=== PATIENT | male | born 1950 | race Caucasian/White ===

== ENCOUNTER → 2018-03-29 11:08 | Outpatient (CLI) | payer MEDICARE, OTHER, SELFPAY ==
--- NOTE | 2018-03-29 11:11 | CT_ITS ---
STUDY: CT ABDOMEN AND PELVIS WITH CONTRAST REASON FOR EXAM: Male, 68 years old. Right-sided abdominal pain. Diarrhea. RADIATION DOSAGE (If Supplied By Facility): CTDIvol = ( 24.10 ) mGy, DLP = ( 1799.41 ) mGycm TECHNIQUE: Transaxial images were obtained from the dome of the diaphragm to the symphysis pubis with oral contrast. 100CC ml of Isovue 300 contrast was administered. Sagittal and coronal images were reconstructed. Individualized dose optimization techniques were used for this CT. COMPARISON: Comparison is made with prior study dated May 12, 2014. FINDINGS: The visualized lung bases are unremarkable. Bipolar pacemaker in situ. Coronary artery stenting. Stable 2.5 cm rounded soft tissue density most likely representing the lymph node in the pericardial fat overlying the left ventricle. Hepatomegaly. Diffuse fatty infiltration of the liver. There are multiple gallstones. Normal spleen. Normal pancreas. Normal bilateral adrenal glands. Stable 3 cm x 2.6 cm cyst adjacent to the medial anterior aspect of the right kidney. This most likely represents a renal cyst. 4 mm nonobstructive calculus in the lower pole of the left kidney. Normal visualized stomach. Normal small intestine. There are multiple colonic diverticula consistent with diverticulosis. The appendix is visualized and appears normal. There is diffuse atherosclerotic calcification of the abdominal aorta, without a demonstrated aneurysm. Normal inferior vena cava. Normal retroperitoneum. Bilateral wall thickening. There is a 6.1 mm calculus along the right side of the base of the bladder. This most likely represent a recently passed calculus. There is a small umbilical hernia containing fat. There are diffuse degenerative changes of the visualized lumbar spine. CT/Abdomen/Pelvis WITH Contrast IMPRESSION: 6.1 mm calculus at the base of the bladder on the right side most likely representing a recently passed ureteral calculus. Nonobstructive calculus in the left kidney. Hepatomegaly with diffuse fatty infiltration of the liver. Electronically Signed: Davon Pena MD at 14:29 EDT Tel [phone], Service support ,
== END ==
PROVIDERS: Family Provider Internal Medicine; PCP Internal Medicine; Visit Provider Internal Medicine
DX: K65.9 Peritonitis, unspecified (principal); R11.0 Nausea
CPT/HCPCS: 74177; Q9967

== ENCOUNTER → 2021-02-01 07:43 | Outpatient (CLI) | payer MEDICARE, OTHER, SELFPAY ==
--- NOTE | 2021-02-01 07:46 | CT_ITS ---
STUDY: LOW DOSE CT LUNG CANCER SCREENING REASON FOR EXAM: Male, 70 years old. Personal history of nicotine dependence. 2-3 packs per day for 45 years. Patient quit 12 years ago. RADIATION DOSAGE (If Supplied By Facility): CTDIvol = ( 3.18 ) mGy, DLP = ( 99.26 ) mGycm TECHNIQUE: No contrast was administered. Low dose technique was utilized (average mAS-38 and kVp 120). 1.25 mm axial source images with a slice interval of 1.25-mm were reconstructed in lung windows. 2.5 mm axial source images with a slice interval of 2.5-mm were reconstructed in lung windows. 5.0 mm axial source images with a slice interval of 5.0-mm were reconstructed in soft tissue windows. Nodule measured using lung windows on PACS and/or independent workstation with automated measurement of minimum and maximum diameter. Nodule measurement reported as average diameter rounded to the nearest whole number. Growth is defined as an increase ins size of greater than 1.5 mm. COMPARISON: None. NODULES: No suspicious nodules are seen. Emphysema: Mild degree of increased markings at the lung bases slightly more prominent on the left side suggestive of scarring. Endobronchial lesion: None Aorta: Atherosclerotic plaque formation. Coronary arteries: Coronary artery calcification. Heart: A left-sided dual-chamber pacemaker is seen. Pulmonary artery: Mediastinal nodes: Small benign appearing mediastinal lymph nodes. Other chest and abdominal findings: CT/Low Dose CT Lung Screening IMPRESSION: Lung-RADS category 2 - Continue annual screening with LDCT in 12 months. IMPORTANT NOTES FOR USE: ACR Lung-RADS Version 1.1 Assessment Categories Release Date: 2018 Category: Coded 0-4 bases on nodule(s) with highest degree of suspicion. Negative screen is defined as categories 1 and 2; a positive screen is defined as categories 3 and 4. Category 3 and 4A nodules that are unchanged on interval CT should be coded as category 2, and individuals returned to screening in 12 months. Category 4X: Category 3 or 4 nodules with additional imaging findings that increase the suspicion of lung cancer, such as spiculation, GGN that doubles in size in 1 year, enlarged lymph notes, etc. Category Modifiers: S (significant finding unrelated to lung cancer) Electronically Signed: Davon Pena MD at 9:43 EDT , Service support ,
== END ==
PROVIDERS: PCP Internal Medicine; Referring Provider Internal Medicine Pulmonary Disease; Visit Provider Internal Medicine Pulmonary Disease
DX: Z87.891 Personal history of nicotine dependence (principal)
CPT/HCPCS: 71271

== ENCOUNTER 2021-06-09 11:17 | Observation (INO) | payer MEDICARE, OTHER, SELFPAY ==
[2021-06-09] VITALS (17 sets, daily range): BP systolic 103–172; BP diastolic 65–110; PULSE 44–135; RESP 16–19; TEMP 36.6–37.3; O2SAT 91–97; BMI 39.4; BMI 39.6
--- NOTE | 2021-06-09 12:07 | CT_ITS ---
STUDY: CT ABDOMEN AND PELVIS WITH CONTRAST REASON FOR EXAM: Male, 71 years old. 3 day history of diffuse abdominal pain, nausea, diarrhea RADIATION DOSAGE (If Supplied By Facility): CTDIvol = ( 28.39 ) mGy, DLP = ( 1781.15 ) mGycm TECHNIQUE: Transaxial images were obtained from the dome of the diaphragm to the symphysis pubis without oral contrast. IV 100mL Isovue-300 was administered. Sagittal and coronal images were reconstructed. Individualized dose optimization techniques were used for this CT. COMPARISON: Comparison is made with prior study dated 03/29/2018. FINDINGS: Minimal increased linear markings at the lung bases suggestive of scarring. A dual-chamber pacemaker is seen. Coronary artery calcification. There is decreased attenuation of the liver consistent with steatosis. Hepatomegaly. Small amount of perihepatic fluid. Distended gallbladder. Thickening of the gallbladder wall. Several gallstones are seen along the dependent portion of the gallbladder. There is evidence of increased markings in the surrounding peritoneal fat and anterior right pararenal space. Acute cholecystitis should be ruled out. Normal spleen. Normal pancreas. Normal bilateral adrenal glands. Normal right kidney. There is a 2.8 semi a cyst in the anterior aspect of the upper pole of the left kidney. This also evidence of a 1.7 cm cyst in the lower pole of the left kidney. Normal visualized stomach. Normal small intestine. Normal colon. The appendix is visualized and appears normal. There is diffuse atherosclerotic calcification of the abdominal aorta and its major visceral branches, without a demonstrated aneurysm. Normal inferior vena cava. Normal retroperitoneum. Normal urinary bladder. Normal abdominal wall. There are diffuse degenerative changes of the visualized lumbar spine. CT/Abdomen/Pelvis W IV Cont ONLY IMPRESSION: Findings in keeping with acute cholecystitis and gallstones. Hepatomegaly and diffuse fatty infiltration of the liver. Small amount perihepatic fluid. Electronically Signed: Davon Pena MD at 13:06 EDT , Service support ,
--- NOTE | 2021-06-09 12:08 | EDS_ITS ---
HPI HPI - GI History of Present Illness Chief Complaint: Abd Pain Narrative Narrative: Patient has been having abdominal pain for several days along with nausea no vomiting. No diarrhea. He has had a cough, some mild shortness of breath worse when he exerts himself, rhinorrhea for a couple weeks. He denies any fevers, chills, contact with anyone with Covid that he knows of. This morning the pain was worse and he had some cold sweats and felt like he had some chills. He was fully vaccinated against Covid back in November. [facility] Medical History Diabetes Diabetic neuropathy HTN (hypertension) Hyperlipemia Home Medications Liraglutide [Victoza 2-Den] 1.2 mg SQ DAILY 05/12/14 [History Last Taken Unknown] allopurinol 200 mg PO DAILYCM 05/12/14 [History Last Taken Unknown] amlodipine 10 mg PO DAILY 05/12/14 [History Last Taken Unknown] aspirin 81 mg PO DAILY@0800 05/12/14 [History Last Taken Unknown] atorvastatin 20 mg PO QHS 05/12/14 [History Last Taken Unknown] clonidine HCl 0.1 mg PO BID 05/12/14 [History Last Taken Unknown] duloxetine 60 mg PO DAILY 05/12/14 [History Last Taken Unknown] gabapentin 300 mg PO BIDCM 05/12/14 [History Last Taken Unknown] glimepiride 4 mg PO DAILY 05/12/14 [History Last Taken Unknown] hydrochlorothiazide 25 mg PO DAILY 05/12/14 [History Last Taken Unknown] ibuprofen 200 mg PO Q6H PRN PRN 05/12/14 [History Last Taken Unknown] insulin glargine [Lantus SoloStar Pen] 18 units SUBCUT QHS 05/12/14 [History Last Taken Unknown] lisinopril 40 mg PO DAILY 05/12/14 [History Last Taken Unknown] metformin 500 mg PO TIDCM 05/12/14 [History Last Taken Unknown] multivitamin with folic acid [Thera] 1 tab PO DAILY 05/12/14 [History Last Taken Unknown] potassium chloride [Klor-Con 10] 10 meq PO DAILY 05/12/14 [History Last Taken Unknown] valsartan 160 mg PO DAILY 05/12/14 [History Last Taken Unknown] Flomax 0 mg PO DAILY 12/22/16 [History Last Taken Unknown] Warfarin 5 mg PO SUTUTHSA 12/22/16 [History Last Taken Unknown] Warfarin 7.5 mg PO MOWEFR 12/22/16 [History Last Taken Unknown] Allergy/AdvReac Type Severity Reaction Status Date / Time No Known Allergies Allergy Verified 06/09/21 11:21 Social History Smoking Status: Former smoker ROS ROS ED Constitutional Constitutional ED: Reports body ache(s), chills, fatigue, fever(s), malaise and sweats Eyes Eyes: Denies change in vision or diplopia ENT ENT ED: Denies rhinorrhea or sore throat Cardiovascular Cardiovascular: Denies chest pain or palpitations Respiratory/Chest Respiratory/Chest: Reports cough, dyspnea and dyspnea on exertion Gastrointestinal Gastrointestinal: Reports abdominal pain, diarrhea and nausea; Denies vomiting Genitourinary Genitourinary ED: Denies dysuria or hematuria Musculoskeletal Musculoskeletal: Denies back pain or neck pain Integumentary Denies abscess or rash Neurologic Neurologic: Denies headache(s), paresthesias or weakness Psychiatric Psychiatric: Denies anxiety or suicidal thoughts EXAM Physical Exam Const Vital Signs: 06/09/21 11:18 06/09/21 12:21 06/09/21 12:29 Temperature 97.9 F Temperature Source Temporal Pulse Rate 44 L 122 H Respiratory Rate 16 19 H Blood Pressure 116/105 H 156/104 H Blood Pressure Mean 108 121 Pulse Ox 96 95 Oxygen Delivery Method Room Air Room Air 06/09/21 13:00 Temperature Temperature Source Pulse Rate Respiratory Rate Blood Pressure 144/87 H Blood Pressure Mean 106 Pulse Ox Oxygen Delivery Method Positive well nourished, well developed and obese Constitutional Narrative: Well-appearing, no distress General Appearance ED: well developed and NAD Nutritional Appearance: obese HEENT Reports moist mucous membranes normocephalic and atraumatic Eyes PERRL and EOMs intact bilaterally Neck full ROM and supple Resp normal respiratory effort and clear to auscultation bilaterally Cardio regular rate, regular rhythm and no murmurs Rate: Negative for tachycardic GI GI Narrative: Diffusely tender, worse right lower quadrant. Obesity limits exam. No definite distention. Auscultation: normoactive bowel sounds Palpation: soft Back/Spine no CVA tenderness General Back: other FROM Extremity normal to inspection and no calf tenderness General Extremety ED: Negative for edema, pulses abnormal or tenderness General Extremity: Negative for edema or pulses abnormal Neuro oriented x3, CN's II-XII intact bilaterally and no sensory deficits noted Sensorium / Orientation: awake and alert Motor Exam: strength 5/5 throughout Skin no rashes or lesions noted and no wounds MDM MDM MDM Narrative Medical decision making narrative: As below, patient has findings of acute cholecystitis with gallstones on CT. The chest x-ray interpretation was noted. On CT, the radiologist did see the increased markings at the bases and said it was indicative of scarring and not acute infiltrate. Patient is feeling better after he was treated with pain medication and nausea medication, discussed with surgery will add antibiotics plan is for admission. He is clinically hemodynamically stable at this time. His rapid Covid returned negative. Lab Data Attestation: I reviewed the patient's lab results. Labs: Laboratory Results - last 24 hr 06/09/21 06/09/21 12:00 12:00 WBC 7.7 RBC 4.71 Hgb 10.9 L Hct 36.0 L MCV 76.4 L MCH 23.1 L MCHC 30.3 L RDW Std Deviation 45.9 H RDW Coeff of Montrell 16.9 H Plt Count 121 L MPV 10.8 Immature Gran % (Auto) 0.400 Neut % (Auto) 79.9 H Lymph % (Auto) 10.9 L Woodson % (Auto) 8.1 Eos % (Auto) 0.3 Baso % (Auto) 0.4 Absolute Neuts (auto) 6.1 Absolute Lymphs (auto) 0.84 Nucleated RBC % 0 Sodium 133 L Potassium 3.8 Chloride 99 Carbon Dioxide 25.0 Anion Gap 9 BUN 11 Creatinine 1.18 Estim Creat Clear Calc 57.42 Est GFR (MDRD) Af Amer 78 Est GFR (MDRD) Non-Af 65 BUN/Creatinine Ratio 9.3 L Glucose 266 H Calcium 9.1 Total Bilirubin 0.90 AST 19 ALT 22 Alkaline Phosphatase 164 H Total Protein 8.1 Albumin 2.9 L Globulin 5.2 H Albumin/Globulin Ratio 0.6 L Lipase 75 Radiography Diagnostic Testing: Radiology Impression Abdomen/Pelvis CT 06/09/21 12:07 IMPRESSION: Findings in keeping with acute cholecystitis and gallstones. Hepatomegaly and diffuse fatty infiltration of the liver. Small amount perihepatic fluid. Electronically Signed: Davon Pena MD at 13:06 EDT , Service support , Chest X-Ray 06/09/21 12:26 IMPRESSION: Increased markings at the lung bases slightly more prominent on the left lung base. Atelectasis and/or early infiltrate should be ruled out. Electronically Signed: Davon Pena MD at 12:53 EDT , Service support , EKG Initial EKG: Attestation: I personally reviewed and interpreted this EKG as follows: Interpretation: No Acute Injury Pattern and Atrial Fibrillation Prior EKG tracings: available for review Prior: Unchanged Discharge Plan Triage Chief Complaint: Abd Pain ED Provider: Alireza De La O Dx/Rx/DC Orders Clinical Impression: Acute calculous cholecystitis, URTI (infection of the upper respiratory tract), Atrial fibrillation, chronic Prescriptions: No Action metformin 500 MG tablet 500 mg PO TIDCM RF: 0 clonidine HCl 0.1 MG tablet 0.1 mg PO BID RF: 0 atorvastatin 20 MG tablet 20 mg PO QHS RF: 0 potassium chloride [Klor-Con 10] 10 MEQ Tablet.Er 10 meq PO DAILY RF: 0 allopurinol 100 MG tablet 200 mg PO DAILYCM RF: 0 amlodipine 10 MG tablet 10 mg PO DAILY RF: 0 glimepiride 4 MG tablet 4 mg PO DAILY RF: 0 ibuprofen 200 MG tablet 200 mg PO Q6H PRN PRN (Reason: Pain) RF: 0 gabapentin 300 MG capsule 300 mg PO BIDCM RF: 0 aspirin 81 MG Tab.Chew 81 mg PO DAILY@0800 RF: 0 hydrochlorothiazide 25 MG tablet 25 mg PO DAILY RF: 0 lisinopril 40 MG tablet 40 mg PO DAILY RF: 0 valsartan 160 MG tablet 160 mg PO DAILY RF: 0 duloxetine 60 MG capsule 60 mg PO DAILY RF: 0 insulin glargine [Lantus Solostar U-100 Insulin] 100 UNITS/ML Pen 18 units subcut QHS RF: 0 multivitamin with folic acid [Thera] 1 TABLET tablet 1 tab PO DAILY RF: 0 Liraglutide [Victoza 2-Den] 0.6 MG/0.1 ML Ml 1.2 mg SQ DAILY RF: 0 Warfarin 7.5 mg PO MOWEFR RF: 0 Warfarin 5 mg PO SUTUTHSA RF: 0 Flomax 0 mg PO DAILY RF: 0 Primary Care Provider: Dee Chawla Referrals: Dee Chawla MD [Primary Care Provider] - Disposition Disposition: Acute Care Hospital [facility]
[2021-06-09 12:16] LABS: Absolute Lymphocyte Count 0.84 X10^3/uL (0.83-4.51); Absolute Neutrophil Count 6.1 X10^3/uL (2.0-7.7); Basophil# 0.03 X10^3/uL; Basophil% 0.4 % (0-1); Eosinophil# 0.02 X10^3/uL; Eosinophils% 0.3 % (0-5); Hemoglobin 10.9 g/dL (13.0-16.5); Lymphocyte # 0.84 X10^3/ul (0.83-4.51); Lymphocyte % 10.9 % (19-41); Mean Corp Hgb Conc 30.3 g/dL (32-36); Mean Corpuscular Hgb 23.1 pg (27.0-32.0); Mean Corpuscular Volume 76.4 fL (80-94); Mean Platelet Vol. 10.8 fl (6.2-12.0); Monocyte# 0.62 X10^3/uL; Monocyte% 8.1 % (0-10); NRBC Flagged by Analyzer 0 % (0-5); Neutrophil # 6.14 X10^3/uL (2.7-7.7); Neutrophil % 79.9 % (47-70); Platelet Count 121 K/mm3 (150-450); RBC Distribution Width CV 16.9 % (11.6-14.6); RBC Distribution Width SD 45.9 fl (35.1-43.9); Red Blood Count 4.71 M/mm3 (4.6-6.2); White Blood Count 7.7 K/mm3 (4.4-11.0)
[2021-06-09] MEDS: 0.9% Normal Saline 1,000 ML 1000 ML IV (12:23)
[2021-06-09] MEDS: Morphine 4 MG/ML Syringe IV (12:23)
[2021-06-09] MEDS: Ondansetron 4 MG/2 ML Vial IV (12:23)
[2021-06-09 12:26] LABS: ALB/GLOB Ratio 0.6 RATIO (0.9-2.4); AST(SGOT) 19 U/L (15-37); Alanine Aminotransfer ALT/SGPT 22 U/L (16-61); Albumin, Serum 2.9 g/dL (3.2-5.0); Alkaline Phosphatase 164 U/L (45-117); Anion Gap 9 (5-15); BUN 11 mg/dL (7-18); BUN/Creat Ratio 9.3 RATIO (10-20); Calcium,Total 9.1 mg/dL (8.5-10.1); Chloride 99 mmol/L (98-107); Creatinine, Serum 1.18 mg/dL (0.70-1.30); EST Glomerular Filtration Rate 65 mL/min (>60); Est Glom Filt Rate - Afr Amer 78 mL/min (>60); Estimated Creatinine Clearance 57.42 ml/min; Globulin 5.2 g/dL (2.2-4.2); Glucose 266 mg/dL (74-106); Lipase 75 U/L (73-393); Potassium 3.8 mmol/L (3.5-5.1); Protein, Total 8.1 g/dL (6.4-8.2); Sodium Level 133 mmol/L (136-145)
--- NOTE | 2021-06-09 12:26 | RAD_ITS ---
STUDY: X-RAY CHEST REASON FOR EXAM: Male, 71 years old. Abdominal pain. Cold sweats. Cough. TECHNIQUE: Single AP portable view of the chest. COMPARISON: Comparison is made with prior study dated 01/11/2016. FINDINGS: EKG electrodes are seen. Elevation of the right hemidiaphragm. Mild increased markings at the lung bases slightly more prominent on the left side. Atelectasis and/or early infiltrates should be ruled out. Follow-up is recommended. There is no demonstrated pleural abnormality. Normal size heart. A left-sided dual-chamber pacemaker is seen. Normal mediastinum and mariana. Normal visualized pulmonary arteries. There is atherosclerotic calcification of the aortic arch with tortuosity. There are diffuse degenerative changes of the visualized thoracic spine. Normal visualized ribs, clavicles, and shoulders. There is no demonstrated abnormality of the visualized soft tissue structures of the upper abdomen. RAD/Chest 1 View (Portable) IMPRESSION: Increased markings at the lung bases slightly more prominent on the left lung base. Atelectasis and/or early infiltrate should be ruled out. Electronically Signed: Davon ePna MD at 12:53 EDT , Service support ,
--- NOTE | 2021-06-09 13:36 | EKG12_ITS ---
Test Reason : IRR HR Blood Pressure : / mmHG Vent. Rate : 108 BPM Atrial Rate : 108 BPM P-R Int : 000 ms QRS Dur : 082 ms QT Int : 354 ms P-R-T Axes : 000 -14 055 degrees QTc Int : 474 ms Normal sinus rhythm with PAF Nonspecific ST and T wave abnormality Abnormal ECG Confirmed by ALMA DELIA IBANEZ, MICAELA ([id number]), image editor EDUARDO DERAS ([id number]) on 06/13/2021 7:55:20 AM Referred By: RU/BB Confirmed By:MICAELA FLANNERY MD
[2021-06-09 14:09] LABS: International Normalized Ratio 2.5; Prothrombin Time (Protime)PT. 26.5 SECONDS (11.7-14.9)
--- NOTE | 2021-06-09 14:52 | PCS.PANDOC ---
PANDEMIC DOCUMENTATION INITIATED: Date: 04/25/2021 Time: 190
--- NOTE | 2021-06-09 15:09 | HP.PCM_ITS ---
[facility] - General General Date of Admission: 06/09/21 HPI Narrative YAZAN LOPEZ, is a 71 M who presents with abdominal pain and nausea. Patient stated on Sunday he started with abdominal pain He noted with deep breath and sneezing the pain became worse. Then when he ate beef stew and potatoes he noted increased epigastric pain and pain into the back. He notes this comes and go. He has noted nausea associated with the abdominal pain. He denies vomiting. He notes having diarrhea previously. His believes he has had discomfort/pain previously like this. Previous abdominal surgical history includes umbilical hernia repair with mesh. Patient has a pacer/defibrillator and Afib. He is currently on Coumadin for the Afib. His last INR was 2.8. He also has a history of sleep apnea. He has had his COVID vaccine. He had COVID last year. He denies being around anyone recently with COVID. [facility] Medical History (Updated 06/09/21 @ 15:01 by Ashlyn Jack) Atrial fibrillation Cancer CPAP (continuous positive airway pressure) dependence Diabetes Diabetic neuropathy Former smoker Hepatitis HTN (hypertension) Hyperlipemia Hypertension ICD (implantable cardioverter-defibrillator) in place Injury of head and neck Pacemaker Sleep apnea Home Medications allopurinol 200 mg PO DAILYCM 05/12/14 [History Last Taken 06/08/21 08:45] aspirin 81 mg PO DAILY@0800 05/12/14 [History Last Taken 06/08/21 08:45] atorvastatin 20 mg PO QODAY 05/12/14 [History Last Taken 1 Week Ago ~06/02/21] clonidine HCl 0.1 mg PO BID 05/12/14 [History Last Taken 06/08/21 08:45] duloxetine 60 mg PO DAILY 05/12/14 [History Last Taken 06/08/21 08:45] gabapentin 600 mg PO QHS 05/12/14 [History Last Taken 06/08/21] hydrochlorothiazide 25 mg PO DAILY 05/12/14 [History Last Taken 06/08/21 08:45] insulin glargine [Lantus SoloStar Pen] 32 units SUBCUT QHS 05/12/14 [History Last Taken 06/07/21] lisinopril 40 mg PO DAILY 05/12/14 [History Last Taken 06/08/21 08:45] metformin 1,000 mg PO BIDCM 05/12/14 [History Last Taken 06/08/21 08:45] potassium chloride [Klor-Con 10] 10 meq PO BID 05/12/14 [History Last Taken 06/08/21 08:45] acetaminophen 1,000 mg PO BID PRN 06/09/21 [History Last Taken 06/09/21 07:00] amlodipine 5 mg PO DAILY 06/09/21 [History Last Taken 06/08/21 08:45] liraglutide [Victoza 3-Den] 1.8 mg SUBCUT DAILY 06/09/21 [History Last Taken 06/08/21] magnesium oxide 400 mg PO BID 06/09/21 [History Last Taken 06/08/21 08:45] metoprolol tartrate 100 mg PO BID 06/09/21 [History Last Taken 06/08/21 08:45] tamsulosin 0.8 mg PO DAILY 06/09/21 [History Last Taken 06/08/21 08:45] warfarin 5 mg PO MOTUWETHFRSA 06/09/21 [History Last Taken 06/08/21 08:45] warfarin 7.5 mg PO SANTAMARIA 06/09/21 [History Last Taken 06/05/21] Allergy/AdvReac Type Severity Reaction Status Date / Time No Known Allergies Allergy Verified 06/09/21 11:21 Social History Smoking Status: Former smoker ROS Constitutional Constitutional: Reports systems reviewed and no addt'l complaints, except as documented Eyes Eyes: Reports systems reviewed and no addt'l complaints, except as documented ENT HEENT: Reports systems reviewed and no addt'l complaints, except as documented Cardiovascular Cardiovascular: Reports systems reviewed and no addt'l complaints, except as documented Respiratory/Chest Respiratory/Chest: Reports systems reviewed and no addt'l complaints, except as documented Gastrointestinal Gastrointestinal: Reports systems reviewed and no addt'l complaints, except as documented Genitourinary Genitourinary: Reports systems reviewed and no addt'l complaints, except as documented Musculoskeletal Musculoskeletal: Reports systems reviewed and no addt'l complaints, except as documented Integumentary Integumentary: Reports systems reviewed and no addt'l complaints, except as documented Neurologic Neurologic: Reports systems reviewed and no addt'l complaints, except as documented Psychiatric Psychiatric: Reports systems reviewed and no addt'l complaints, except as documented Endocrine Endocrinology: Reports systems reviewed and no addt'l complaints, except as documented Hematologic/Lymphatic Hematologic/Lymphatic: Reports systems reviewed and no addt'l complaints, except as documented Allergic/Immunologic Allergic/Immunologic: Reports systems reviewed and no addt'l complaints, except as documented Vital Signs Vital Signs Vital Signs: 06/09/21 11:18 06/09/21 12:21 06/09/21 12:29 Temperature 97.9 F Temperature Source Temporal Pulse Rate 44 L 122 H Respiratory Rate 16 19 H Respiratory Effort Respiratory Depth Respiratory Pattern Blood Pressure 116/105 H 156/104 H Blood Pressure Mean 108 121 Pulse Ox 96 95 Oxygen Delivery Method Room Air Room Air 06/09/21 13:00 06/09/21 14:00 06/09/21 14:13 Temperature 98.1 F Temperature Source Temporal Pulse Rate 111 H 112 H Respiratory Rate 18 18 Respiratory Effort Respiratory Depth Respiratory Pattern Blood Pressure 144/87 H 144/87 H 144/87 H Blood Pressure Mean 106 106 106 Pulse Ox 94 94 Oxygen Delivery Method Room Air Room Air 06/09/21 14:53 Temperature Temperature Source Pulse Rate Respiratory Rate Respiratory Effort Normal Non-Labored Respiratory Depth Normal Respiratory Pattern Normal Blood Pressure Blood Pressure Mean Pulse Ox Oxygen Delivery Method Nasal Cannula Weight Weight: 268 lb 11.896 oz Body Mass Index (BMI) 39.6 Physical Exam Const alert, oriented x3 and no apparent distress HEENT normocephalic and head/scalp atraumatic Eyes PERRL and EOMs intact bilaterally Neck full ROM Lymph Lymphatic: no lymphadenopathy noted Resp normal respiratory effort, normal air movement and clear to auscultation bilaterally Cardio Rate: tachycardic Rhythm: regular rhythm GI Inspection: central obesity Auscultation: hypoactive bowel sounds Palpation: soft and tender RUQ and Lara's sign no CVA tenderness Back/Spine no CVA tenderness Extremity normal to inspection Skin no rashes or lesions noted Neuro oriented x3 and CN's II-XII intact bilaterally Psych mental status grossly normal Results Lab / Micro Data Result Diagrams: 06/09/21 12:00 06/09/21 12:00 Labs: Laboratory Results - last 24 hr 06/09/21 12:00: WBC 7.7, RBC 4.71, Hgb 10.9 L, Hct 36.0 L, MCV 76.4 L, MCH 23.1 L, MCHC 30.3 L, RDW Std Deviation 45.9 H, RDW Coeff of Montrell 16.9 H, Plt Count 121 L, MPV 10.8, Immature Gran % (Auto) 0.400, Neut % (Auto) 79.9 H, Lymph % (Auto) 10.9 L, [place] % (Auto) 8.1, Eos % (Auto) 0.3, Baso % (Auto) 0.4, Absolute Neuts (auto) 6.1, Absolute Lymphs (auto) 0.84, Nucleated RBC % 0 06/09/21 12:00: Sodium 133 L, Potassium 3.8, Chloride 99, Carbon Dioxide 25.0, Anion Gap 9, BUN 11, Creatinine 1.18, Estim Creat Clear Calc 57.42, Est GFR (MDRD) Af Amer 78, Est GFR (MDRD) Non-Af 65, BUN/Creatinine Ratio 9.3 L, Glucose 266 H, Calcium 9.1, Total Bilirubin 0.90, AST 19, ALT 22, Alkaline Phosphatase 164 H, Total Protein 8.1, Albumin 2.9 L, Globulin 5.2 H, Albumin/Globulin Ratio 0.6 L, Lipase 75 06/09/21 13:54: PT 26.5 H, INR 2.5 Micro: Microbiology 06/09/21 12:24 Nasal Secretion SARS-CoV-2 Antigen (Rapid) - Final Radiology Impression Abdomen/Pelvis CT 06/09/21 12:07 IMPRESSION: Findings in keeping with acute cholecystitis and gallstones. Hepatomegaly and diffuse fatty infiltration of the liver. Small amount perihepatic fluid. Electronically Signed: Davon Pena MD at 13:06 EDT , Service support , Chest X-Ray 06/09/21 12:26 IMPRESSION: Increased markings at the lung bases slightly more prominent on the left lung base. Atelectasis and/or early infiltrate should be ruled out. Electronically Signed: Davon Pena MD at 12:53 EDT , Service support , Assessment & Plan Assessment/Plan (1) Acute calculous cholecystitis: PLAN: I am seeing this patient in conjunction with Dr. Roth. He will independently evaluate this patient. I have discussed this patient with Dr. Roth. Plan to admit patient. Patient's INR is 2.5. He will be given FFP and have his INR rechecked tonight and tomorrow morning. Patient's Coumadin will be held overnight. Dr. Danielle will plan to perform a laparoscopic cholecystectomy with intraoperative cholangiogram. Procedure details, risks and benefits have been explained to the patient. Patient and his have had the opportunity to ask and have questions answered. Patient verbally understands and agrees with the plan. Patient's had his COVID vaccine in November. Thank you for allowing us to participate in this patient's care. Charges/Coding Visit Charges Office Visits / Consults: 43257 OP Consult L3
[2021-06-09 16:25] LABS: Bedside Glucose 215 mg/dL (70-110)
--- NOTE | 2021-06-09 16:35 | CHAPLAIN ---
Type of Pastoral Visit _x__ Initial Visit ___ Follow-up Visit ___ On-call Visit ___ General Patient Visit ___ Spiritual Assessment ___ Family Conference ___ Bereavement ___ Rapid Response ___ Code Blue ___ Other (describe below) Pastoral Care Referral From _x__ Patient ___ Family ___ Nurse ___ Physician ___ Well Drill Operator Helper Cable Tool ___ Referral And Information Aide ___ Other (describe below) Sacrament/Intervention _x__ Active listening ___ Anointing ___ Mosque ___ Bereavement ___ Communion ___ Latonia exploration ___ ___ Life review ___ Prayer ___ Reconciliation ___ Sacrament of Sick ___ Supportive presence ___ Wedding ___ Other (describe below) Pastoral Comments patient to have surgery tomorrow; offer of support given
[2021-06-09] MEDS: Potassium Chloride Oral Tablet 10 MEQ PO (16:42)
[2021-06-09] MEDS: Metoprolol Tartrate 100 MG Tablet PO (16:42)
[2021-06-09] MEDS: Insulin Lispro 100 UNIT/ML INSULN.PEN SC ×2 (16:43→20:52)
[2021-06-09] MEDS: amLODIPine 5 MG Tablet PO (16:45)
[2021-06-09] MEDS: Lisinopril 40 MG Tablet PO (16:46)
[2021-06-09] MEDS: hydroCHLOROthiazide 25 MG Tablet PO (16:46)
--- NOTE | 2021-06-09 19:47 | NURSING ---
vital signs documented for 1924 taken at 1941 after FFP running for 15minutes. unable to edit time.
--- NOTE | 2021-06-09 20:30 | NURSING ---
Pt refusing to wear hospital socks for fall prevention. Educated however continued to refuse
[2021-06-09] MEDS: cloNIDine HCl 0.1 MG Tablet PO (20:52)
[2021-06-09] MEDS: Gabapentin 600 MG Tablet PO (20:54)
[2021-06-09 21:11] LABS: Bedside Glucose 221 mg/dL (70-110)
[2021-06-09 22:12] LABS: International Normalized Ratio 1.9; Prothrombin Time (Protime)PT. 21.2 SECONDS (11.7-14.9)
[2021-06-10] VITALS (21 sets, daily range): BP systolic 99–148; BP diastolic 53–90; PULSE 71–120; RESP 16–24; TEMP 35.7–37.5; O2SAT 91–97
[2021-06-10 06:17] LABS: Absolute Lymphocyte Count 0.87 X10^3/uL (0.83-4.51); Absolute Neutrophil Count 3.5 X10^3/uL (2.0-7.7); Basophil# 0.02 X10^3/uL; Basophil% 0.4 % (0-1); Eosinophil# 0.06 X10^3/uL; Eosinophils% 1.2 % (0-5); Hemoglobin 9.8 g/dL (13.0-16.5); Lymphocyte # 0.87 X10^3/ul (0.83-4.51); Lymphocyte % 16.9 % (19-41); Mean Corp Hgb Conc 29.7 g/dL (32-36); Mean Corpuscular Hgb 23.2 pg (27.0-32.0); Mean Platelet Vol. 10.5 fl (6.2-12.0); Monocyte# 0.65 X10^3/uL; Monocyte% 12.6 % (0-10); NRBC Flagged by Analyzer 0 % (0-5); Neutrophil # 3.54 X10^3/uL (2.7-7.7); Neutrophil % 68.5 % (47-70); Platelet Count 124 K/mm3 (150-450); RBC Distribution Width SD 47.8 fl (35.1-43.9); Red Blood Count 4.23 M/mm3 (4.6-6.2); White Blood Count 5.2 K/mm3 (4.4-11.0)
[2021-06-10 06:30] LABS: International Normalized Ratio 1.7; Prothrombin Time (Protime)PT. 19.6 SECONDS (11.7-14.9)
[2021-06-10 06:44] LABS: ALB/GLOB Ratio 0.6 RATIO (0.9-2.4); AST(SGOT) 22 U/L (15-37); Alanine Aminotransfer ALT/SGPT 24 U/L (16-61); Albumin, Serum 2.8 g/dL (3.2-5.0); Alkaline Phosphatase 151 U/L (45-117); Anion Gap 8 (5-15); BUN 10 mg/dL (7-18); BUN/Creat Ratio 8.7 RATIO (10-20); Calcium,Total 8.6 mg/dL (8.5-10.1); Chloride 100 mmol/L (98-107); Creatinine, Serum 1.15 mg/dL (0.70-1.30); EST Glomerular Filtration Rate 67 mL/min (>60); Est Glom Filt Rate - Afr Amer 81 mL/min (>60); Estimated Creatinine Clearance 58.92 ml/min; Globulin 4.6 g/dL (2.2-4.2); Glucose 177 mg/dL (74-106); Potassium 3.4 mmol/L (3.5-5.1); Protein, Total 7.4 g/dL (6.4-8.2); Sodium Level 136 mmol/L (136-145)
[2021-06-10] MEDS: Insulin Lispro 100 UNIT/ML INSULN.PEN SC ×3 (07:06→21:45)
[2021-06-10 07:31] LABS: Bedside Glucose 178 mg/dL (70-110)
[2021-06-10 07:42] LABS: Hemoglobin A1c 8.9 % (3.8-5.6)
--- NOTE | 2021-06-10 08:59 | NURSING ---
0800 pulse ox reading 88% on room air with vital signs while lying in bed. Encouraged to sit up at side of bed and use IS. Pulse ox increased to 94% on room air after doing so.
--- NOTE | 2021-06-10 09:02 | NURSING ---
0845- pulse ox rechecked, reading 92% on room air
[2021-06-10] MEDS: 0.9% Normal Saline 1,000 ML 60 ML IV ×2 (10:59→21:17)
--- NOTE | 2021-06-10 11:15 | CASEMGMT ---
JESSICA OWENS NOTE: Intro role of CM to patient and CHAPPELL form explained re: Observation status for treatment of acute calculous cholecystitis. Explained hospitalization will be paid per his insurance policy for Outpatient billing and condition will continue to be evaluated for Inpt necessity. Also let pt know that [facility] sends paper in the billing packet with their phone number if questions arise. Discussed Pharmacy section of CHAPPELL form and self administered medication guideline. Pt verbalizes understanding and does not have further questions. Form signed, copy made and placed in chart, and original given to pt. Gabriella ARRINGTON RN CM
[2021-06-10 11:40] LABS: Bedside Glucose 203 mg/dL (70-110)
[2021-06-10] MEDS: Metoprolol Tartrate 100 MG Tablet PO ×2 (13:34)
--- NOTE | 2021-06-10 15:00 | GALL_PTH ---
PATIENT: YAZAN LOPEZ LOC: MS2 U#:[id number] AGE/SX: 71/M [place] [facility] RE06/09/[address]: Yanique Catalan PA-C : 1950 BED: 1 DIS: 06/12/2021 SPEC #: [id number] RECD: 06/13/21 07:41 STATUS: RADHA REQ #: [id number] MYRIAM: 06/10/21 15:[address]: Jamil Roth DEPT: SURGICAL PATHOLOGY RECD BY: Desirae Hitchcock ENTERED: 06/13/21 09:24 SP TYPE: GALLBLADDE OTHR DR: MD Dr. Dee Ashford MD Amanda Griffith, PA-C Tissues: Gallbladder, NOS Procedures: Surgery Specimen Level III Comments: @ Ordering doctor for SUIII edited from KAYCEE to @ by EUSEBIO at 06/13/21 153 @ Submitting doctor edited from KAYCEE to @ by RGOOD at 06/13/21 1532 HEADER OPERATION: Laparoscopic cholecystectomy with IOC PRE-OP DIAGNOSIS: Acute calculus cholecystitis TISSUE SUBMITTED: Gallbladder MICROSCOPIC DIAGNOSIS Gallbladder, cholecystectomy: Chronic cholecystitis and cholelithiasis. AM:dory 06/14/2021 MICROSCOPIC DESCRIPTION Slides are reviewed. GROSS DESCRIPTION Received is one container labeled with the patient's name and designated gallbladder. The specimen consists of a gallbladder measuring 13.6 x 6.3 x 3 cm. The external surface is smooth and glistening. Focally, it is granular, hemorrhagic and contains cautery artifact. The lumen of the gallbladder contains yellow-green mucoid bile and multiple black, mulberry-shaped calculi ranging in size from 0.8 to 1 cm in greatest dimension. The mucosa is bile-stained and without any mass lesions. The gallbladder wall averages 0.7 cm in thickness and is free of mass lesions. Certified Welding Inspector sections of the gallbladder and the cystic duct at margin of resection are submitted in one cassette. / AM:dory 06/13/21 TC:3 CPT: 59924
[2021-06-10] MEDS: Lactated Ringers 1,000 ML 100 ML IV (16:30)
--- NOTE | 2021-06-10 17:26 | OP.PCM_ITS ---
Problems Associated Problem List Diagnoses (1) Acute calculous cholecystitis: Report of Operation Date of Procedure: 06/10/21 Pre-Operative Diagnosis: Acute cholecystitis Post-Operative Diagnosis: Acute cholecystitis Surgery/Procedure Performed:: Laparoscopic cholecystectomy Specimen's removed: Gallbladder and contents Drains: AYSE to bulb suction Description of Procedure: Patient was brought back to the operating room and general anesthesia was induced. The abdomen was prepped and draped in usual sterile fashion. An incision was made the midline superior to the umbilicus and deepened to the fascia which was elevated and incised. A port was placed into the abdomen and the abdomen was insufflated to 15 mmHg. The patient was very obese and there was a lot of omentum covering the gallbladder. Under direct visualization a 5 mm port was placed in the subxiphoid space as well as 2 5 mm ports in the subcostal space on the right side. Patient was placed in steep Trendelenburg and using blunt dissection the omentum was peeled away from the gallbladder. The gallbladder was aspirated of its contents and then elevated toward the right shoulder. The infundibulum of the gallbladder was densely inflamed and adherent to the surrounding structures. It was slowly dissected using blunt dissection until the cystic duct was identified. This was very large and very short and the gallbladder is very inflamed with a large rind around it and cholangiograms were unable to be obtained. A clip was placed across the cystic duct and then it was divided. The cystic duct was extremely short. Only 1 clip was able to be placed on it. Next the cystic artery was identified and clipped and divided. The gallbladder was then dissected off of the gallbladder fossa and placed into a Endo Catch bag. The gallbladder fossa been irrigated and hemostasis was obtained. There was no leakage of bile noted. Next a 15 Gabonese round drain was placed into the gallbladder fossa through the most lateral 5 mm port and it was sutured to the skin using 3-0 nylon. Next the abdomen was desufflated and the Endo Catch bag was removed through the ventral incision. The midline fascia was closed with several [id number] 0 Vicryl sutures. The incisions were irrigated and suctioned dry and injected with local anesthetic. They were closed with interrupted 4-0 Monocryl sutures. Steri- Strips and bandages were applied. Patient was awoken and taken to PACU in stable condition. Admit VTE Documentation VTE Mechan Device Prophylaxis: SCD's
[2021-06-10] MEDS: Bupivacaine 0.25% 30 ML Vial (17:27)
--- NOTE | 2021-06-10 17:30 | PCM.DC.SUM ---
Providers Date of Admission: 06/09/21 Primary Care Physician: Dr. Dee Chawla MD Reason For Visit: ACUTE CALCULOUS CHOLECYSTITIS Diagnosis Discharge Diagnosis (1) Acute calculous cholecystitis: Status: Acute Code(s): K80.00 - Calculus of gallbladder with acute cholecystitis without obstruction Medications at Discharge Home Medications Lantus Solostar U-100 Insulin 32 units SUBCUT QHS 05/12/14 allopurinol 200 mg PO DAILYCM 05/12/14 aspirin 81 mg PO DAILY@0800 05/12/14 atorvastatin 20 mg PO QODAY 05/12/14 clonidine HCl 0.1 mg PO BID 05/12/14 duloxetine 60 mg PO DAILY 05/12/14 gabapentin 600 mg PO QHS 05/12/14 hydrochlorothiazide 25 mg PO DAILY 05/12/14 lisinopril 40 mg PO DAILY 05/12/14 metformin 1,000 mg PO BIDCM 05/12/14 potassium chloride [Klor-Con 10] 10 meq PO BID 05/12/14 Victoza 3-Den 1.8 mg SUBCUT DAILY 06/09/21 acetaminophen 1,000 mg PO BID PRN 06/09/21 amlodipine 5 mg PO DAILY 06/09/21 magnesium oxide 400 mg PO BID 06/09/21 metoprolol tartrate 100 mg PO BID 06/09/21 tamsulosin 0.8 mg PO DAILY 06/09/21 warfarin 5 mg PO MOTUWETHFRSA 06/09/21 warfarin 7.5 mg PO SANATMARIA 06/09/21 oxycodone 10 mg PO Q4H PRN PRN 5 Days #30 tab 06/10/21 Hospital Course Operations cholecystecomy Summary of Care Provided Hospital Course: Patient was admitted to the hospital with acute cholecystitis but his INR was 2.5. He was admitted and kept n.p.o. and started on IV antibiotics. He was given 3 units of FFP and the following morning his INR came down to 1.7. That afternoon he was taken to surgery for laparoscopic cholecystectomy. The patient was very inflamed and had a very short cystic duct. Cholangiograms were unable to be obtained. Drain was placed in the gallbladder fossa due to all of the inflammation. Patient was admitted to the floor and started on clear liquid diet and once he was tolerating diet he was discharged home. Weight / BMI Weight Weight: 268 lb 11.896 oz Body Mass Index (BMI) 39.6 ABG / Lab / Microbiology Data Result Diagrams: 06/10/21 05:56 06/10/21 05:56 Laboratory: Laboratory Results - last 24 hr 06/09/21 20:50: POC Glucose 221 H 06/09/21 21:54: PT 21.2 H, INR 1.9 06/10/21 05:56: WBC 5.2, RBC 4.23 L, Hgb 9.8 L, Hct 33.0 L, MCV 78.0 L, MCH 23.2 L, MCHC 29.7 L, RDW Std Deviation 47.8 H, RDW Coeff of Montrell 17.0 H, Plt Count 124 L, MPV 10.5, Immature Gran % (Auto) 0.400, Neut % (Auto) 68.5, Lymph % (Auto) 16.9 L, [place] % (Auto) 12.6 H, Eos % (Auto) 1.2, Baso % (Auto) 0.4, Absolute Neuts (auto) 3.5, Absolute Lymphs (auto) 0.87, Nucleated RBC % 0 06/10/21 05:56: PT 19.6 H, INR 1.7 06/10/21 05:56: Sodium 136, Potassium 3.4 L, Chloride 100, Carbon Dioxide 28.0, Anion Gap 8, BUN 10, Creatinine 1.15, Estim Creat Clear Calc 58.92, Est GFR (MDRD) Af Amer 81, Est GFR (MDRD) Non-Af 67, BUN/Creatinine Ratio 8.7 L, Glucose 177 H, Calcium 8.6, Total Bilirubin 0.70, AST 22, ALT 24, Alkaline Phosphatase 151 H, Total Protein 7.4, Albumin 2.8 L, Globulin 4.6 H, Albumin/Globulin Ratio 0.6 L 06/10/21 05:56: Hemoglobin A1c 8.9 H 06/10/21 06:58: POC Glucose 178 H 06/10/21 11:30: POC Glucose 203 H Microbiology: Microbiology 06/09/21 12:24 Nasal Secretion SARS-CoV-2 Antigen (Rapid) - Final D/C Instructions Discharge Diet: Light diet - advance as tolerated Discharge Activity: May Not Drive (for 2-3 days or while taking narcotic pain medications.) and - (Do not drive, work heavy equipment or sign legal documents for 24 hours.) May shower in (days): 1 Lifting Restrictions: 20 lbs Additional Activity Instructions: Pain medication may cause nausea. You should typically eat light foods as you take your pain medications. Pain medication may also cause constipation. If this is a problem for you, please discuss with your doctor. Call your doctor if your incision/area has: Continuous Slow Oozing, Sudden Increased Bleeding, Increased Pain/ Swelling, Increased Redness and Foul Smelling Discharge Call your doctor if you observe: Fever of 101 or Higher Suture Line Care: Avoid Pulling/Pushing and Avoid Pinching/Bending Cleanse incision/area with: Soap & Water Additional Dressing/Incision Instructions: Leave operative bandaids on for 2 days. When you remove dressing, leave Steri-Strips on until your follow-up appointment, or until the Steri-Strips fall off on their own. Please Follow Up With: Jamil Roth MD When: Please call to schedule 2 week follow up appointment. [phone] Meaningful Use Info Meaningful Use Diagnoses (Choose all that apply): None applicable Discharge Plan Admission Admit Date/Time: 06/09/21 14:53 Attending Provider: Yanique Ctaalan Primary Care Provider: Dee Chawla Discharge Orders/Prescriptions Prescriptions: New oxycodone 5 mg Tablet 10 mg PO Q4H PRN PRN (Reason: Pain Score 4-5) 5 Days Qty: 30 RF: 0 Continued metformin 500 MG tablet 1,000 mg PO BIDCM RF: 0 clonidine HCl 0.1 MG tablet 0.1 mg PO BID RF: 0 atorvastatin 20 MG tablet 20 mg PO QODAY RF: 0 potassium chloride [Klor-Con 10] 10 MEQ tablet extended release 10 meq PO BID RF: 0 allopurinol 100 MG tablet 200 mg PO DAILYCM RF: 0 gabapentin 300 MG capsule 600 mg PO QHS RF: 0 aspirin 81 MG tablet,chewable 81 mg PO DAILY@0800 RF: 0 hydrochlorothiazide 25 MG tablet 25 mg PO DAILY RF: 0 lisinopril 40 MG tablet 40 mg PO DAILY RF: 0 duloxetine 60 MG capsule 60 mg PO DAILY RF: 0 Lantus Solostar U-100 Insulin 100 UNITS/ML insulin pen 32 units subcut QHS RF: 0 metoprolol tartrate 100 mg tablet 100 mg PO BID RF: 0 amlodipine 5 mg tablet 5 mg PO DAILY RF: 0 acetaminophen 500 mg Tablet 1,000 mg PO BID PRN (Reason: Pain) RF: 0 tamsulosin 0.4 mg capsule 0.8 mg PO DAILY RF: 0 warfarin 5 mg tablet 7.5 mg PO SANTAMARIA RF: 0 warfarin 5 mg tablet 5 mg PO MOTUWETHFRSA RF: 0 Victoza 3-Den 0.6 mg/0.1 mL (18 mg/3 mL) pen injector 1.8 mg SUBCUT DAILY RF: 0 magnesium oxide 400 mg magnesium tablet 400 mg PO BID RF: 0 Referrals / Follow Up: Dee Chawla MD [Primary Care Provider] -
--- NOTE | 2021-06-10 17:41 | SUR.PHASEI ---
NOTED TO BE VERY DIAPHORETIC ON PACU ARRIVAL, WAS REPORTEDLY NOTED TO BE DIAPHORETIC UPON AWAKENING IN [address].
[2021-06-10 17:55] LABS: Bedside Glucose 256 mg/dL (70-110)
[2021-06-10 19:06] LABS: Bedside Glucose 283 mg/dL (70-110)
[2021-06-10] MEDS: cloNIDine HCl 0.1 MG Tablet PO (21:21)
[2021-06-10] MEDS: Gabapentin 600 MG Tablet PO (21:21)
[2021-06-10 21:55] LABS: Bedside Glucose 270 mg/dL (70-110)
[2021-06-11] VITALS (11 sets, daily range): BP systolic 110–137; BP diastolic 64–72; PULSE 76–94; RESP 16–18; TEMP 36.1–36.6; O2SAT 93–97
[2021-06-11 06:50] LABS: Absolute Lymphocyte Count 0.64 X10^3/uL (0.83-4.51); Absolute Neutrophil Count 4.3 X10^3/uL (2.0-7.7); Basophil# 0.02 X10^3/uL; Basophil% 0.4 % (0-1); Eosinophil# 0.02 X10^3/uL; Eosinophils% 0.4 % (0-5); Hematocrit 30.5 % (40-54); Hemoglobin 9.1 g/dL (13.0-16.5); Lymphocyte # 0.64 X10^3/ul (0.83-4.51); Lymphocyte % 11.3 % (19-41); Mean Corp Hgb Conc 29.8 g/dL (32-36); Mean Corpuscular Hgb 23.5 pg (27.0-32.0); Mean Corpuscular Volume 78.6 fL (80-94); Mean Platelet Vol. 10.1 fl (6.2-12.0); Monocyte# 0.62 X10^3/uL; NRBC Flagged by Analyzer 0 % (0-5); Neutrophil # 4.33 X10^3/uL (2.7-7.7); Neutrophil % 76.5 % (47-70); Platelet Count 138 K/mm3 (150-450); RBC Distribution Width CV 17.2 % (11.6-14.6); RBC Distribution Width SD 48.6 fl (35.1-43.9); Red Blood Count 3.88 M/mm3 (4.6-6.2); White Blood Count 5.7 K/mm3 (4.4-11.0)
[2021-06-11 06:55] LABS: Bedside Glucose 169 mg/dL (70-110)
[2021-06-11 07:13] LABS: ALB/GLOB Ratio 0.5 RATIO (0.9-2.4); AST(SGOT) 31 U/L (15-37); Alanine Aminotransfer ALT/SGPT 26 U/L (16-61); Albumin, Serum 2.5 g/dL (3.2-5.0); Alkaline Phosphatase 146 U/L (45-117); Anion Gap 8 (5-15); BUN 17 mg/dL (7-18); BUN/Creat Ratio 12.4 RATIO (10-20); Calcium,Total 8.6 mg/dL (8.5-10.1); Chloride 102 mmol/L (98-107); Creatinine, Serum 1.37 mg/dL (0.70-1.30); EST Glomerular Filtration Rate 54 mL/min (>60); Est Glom Filt Rate - Afr Amer 66 mL/min (>60); Estimated Creatinine Clearance 49.46 ml/min; Globulin 4.6 g/dL (2.2-4.2); Glucose 192 mg/dL (74-106); Potassium 3.6 mmol/L (3.5-5.1); Protein, Total 7.1 g/dL (6.4-8.2); Sodium Level 137 mmol/L (136-145)
--- NOTE | 2021-06-11 10:14 | PCM.PN.BLA ---
Progress Note patient passing flatus ambulating somewhat does not feel ready to go home Physical Exam Const alert and oriented x3 General Appearance: cooperative Resp normal respiratory effort GI GI Narrative: Abdomen - soft and protuberant, surgical dressing intact AYSE output is serosanguinous - no bile noted Assessment & Plan Assessment/Plan (1) Status post laparoscopic cholecystectomy: PLAN: patient states that he doesn't feel comfortable going home today continue present therapy advance diet as tolerated
[2021-06-11] MEDS: cloNIDine HCl 0.1 MG Tablet PO ×2 (10:39→21:41)
[2021-06-11] MEDS: Metoprolol Tartrate 100 MG Tablet PO ×2 (10:39→21:42)
[2021-06-11] MEDS: Magnesium Chloride 64 MG Delay Rel.Tablet 128 MG PO (10:39)
[2021-06-11] MEDS: Tamsulosin HCl 0.4 MG Capsule 0.8 MG PO (10:39)
[2021-06-11] MEDS: DULoxetine Hcl 60 MG Capsule PO (10:40)
[2021-06-11] MEDS: hydroCHLOROthiazide 25 MG Tablet PO (10:40)
[2021-06-11] MEDS: Lisinopril 40 MG Tablet PO (10:41)
[2021-06-11] MEDS: amLODIPine 5 MG Tablet PO (10:41)
[2021-06-11] MEDS: Insulin Lispro 100 UNIT/ML INSULN.PEN SC ×4 (10:45→21:39)
[2021-06-11 12:15] LABS: Bedside Glucose 188 mg/dL (70-110)
[2021-06-11 16:15] LABS: Bedside Glucose 198 mg/dL (70-110)
[2021-06-11] MEDS: 0.9% Normal Saline 1,000 ML 60 ML IV (21:36)
[2021-06-11] MEDS: Gabapentin 600 MG Tablet PO (21:42)
[2021-06-11 21:51] LABS: Bedside Glucose 236 mg/dL (70-110)
[2021-06-12] VITALS (9 sets, daily range): BP systolic 105–127; BP diastolic 56–70; PULSE 67–80; RESP 16–20; TEMP 36.3–36.6; O2SAT 92–97
[2021-06-12] MEDS: Insulin Lispro 100 UNIT/ML INSULN.PEN SC ×2 (06:50→12:52)
[2021-06-12 07:00] LABS: Bedside Glucose 178 mg/dL (70-110)
[2021-06-12] MEDS: Tamsulosin HCl 0.4 MG Capsule 0.8 MG PO (10:24)
[2021-06-12] MEDS: DULoxetine Hcl 60 MG Capsule PO (10:24)
[2021-06-12] MEDS: cloNIDine HCl 0.1 MG Tablet PO (10:24)
[2021-06-12] MEDS: Atorvastatin Calcium 20 MG Tablet PO (10:25)
[2021-06-12] MEDS: Metoprolol Tartrate 100 MG Tablet PO (10:25)
[2021-06-12] MEDS: hydroCHLOROthiazide 25 MG Tablet PO (10:26)
[2021-06-12] MEDS: amLODIPine 5 MG Tablet PO (10:26)
[2021-06-12] MEDS: Magnesium Chloride 64 MG Delay Rel.Tablet 128 MG PO (10:26)
[2021-06-12] MEDS: Lisinopril 40 MG Tablet PO (10:26)
--- NOTE | 2021-06-12 12:50 | PCM.PN.SRG ---
Subjective Subjective patient is ready to go home Objective Data Objective Data Vital Signs: Vital Signs Temp Pulse Resp BP Pulse Ox 98 F 78 20 H 127/70 H 97 06/12/21 08:14 06/12/21 10:25 06/12/21 08:14 06/12/21 10:25 06/12/21 08:14 Oxygen Flow Rate (L/min) 2 Oxygen Delivery Method Room Air Weight: 121.9 kg Body Mass Index (BMI) 39.6 Intake & Output: Intake and Output for Last 24 Hours 06/10/21 06/11/21 06/12/21 23:59 23:59 23:59 Intake Total 2075 / 2075 1533 / 1533 50 / 50 Output Total 60 / 85 1470 / 1470 425 / 425 Balance 2014 63 / 63 -375 / -375 Lab / Micro Data Result Diagrams: 06/11/21 06:25 06/11/21 06:25 Labs: Laboratory Results - last 24 hr 06/11/21 16:10: POC Glucose 198 H 06/11/21 21:35: POC Glucose 236 H 06/12/21 06:42: POC Glucose 178 H Micro: Microbiology 06/09/21 12:24 Nasal Secretion SARS-CoV-2 Antigen (Rapid) - Final Physical Exam Narrative abdomen is soft and benign, surgical dressings intact AYSE output is serous Assessment & Plan Assessment/Plan (1) Status post laparoscopic cholecystectomy: PLAN: discharge to home, can call Dr. Roth's office in the morning for consideration of d/c drain in the office, patient is amenable to this. Follow up as per Dr. Roth
[2021-06-12 12:51] LABS: Bedside Glucose 203 mg/dL (70-110)
== END 2021-06-12 16:00 | disposition home or self-care (01) ==
LOC: ED 13:50 → MS2 14:23
PROVIDERS: Anesthesiology; Admitting Provider Surgery; Emergency Provider Emergency Medicine; PCP Internal Medicine; Visit Provider Physician Assistant
PROC: (CPT 47610; principal; 2021-06-10 14:40)
DX: K80.12 Calculus of gallbladder with acute and chronic cholecystitis without obstruction (principal); Z23 Encounter for immunization; E11.40 Type 2 diabetes mellitus with diabetic neuropathy, unspecified; I10 Essential (primary) hypertension; I48.20 Chronic atrial fibrillation, unspecified; J06.9 Acute upper respiratory infection, unspecified; G47.30 Sleep apnea, unspecified; E78.5 Hyperlipidemia, unspecified; K21.9 Gastro-esophageal reflux disease without esophagitis; Z79.899 Other long term (current) drug therapy; Z79.82 Long term (current) use of aspirin; Z79.01 Long term (current) use of anticoagulants; Z87.891 Personal history of nicotine dependence; Z95.810 Presence of automatic (implantable) cardiac defibrillator; Z79.84 Long term (current) use of oral hypoglycemic drugs
CPT/HCPCS: 47563; 36415; 36430; 71045; 74177; 80053; 82962; 83036; 83690; 85025; 85610; 86900; 86901; 87426; 88304; 93005; 96361; 96365; 96366; 96375; 99218; 99251; 99283; G0008; J7030; J7040; J7120; P9017; Q9965; 90686; A4216; G0378; G0463; J2405

== ENCOUNTER → 2021-08-12 | Outpatient (CLI) | payer MEDICARE, OTHER, SELFPAY ==
[2021-08-12 14:01] LABS: International Normalized Ratio 2.3; Prothrombin Time (Protime)PT. 24.3 SECONDS (11.7-14.9)
== END | disposition home or self-care (01) ==
LOC: LABSPEC 13:40
PROVIDERS: PCP Surgery; Referring Provider Internal Medicine; Visit Provider Internal Medicine
DX: Z79.01 Long term (current) use of anticoagulants (principal)
CPT/HCPCS: 85610

== ENCOUNTER → 2021-08-15 14:48 | Outpatient (CLI) | payer MEDICARE, OTHER, SELFPAY ==
[2021-08-15 23:09] LABS: Xtra Tube EP Lab EXTRA TUBE
[2021-08-16 08:38] VITALS: BP 126/56; PULSE 88; RESP 16; TEMP 35.6; O2SAT 95
[2021-08-16 09:16] VITALS: BP 110/51; PULSE 78; RESP 16; TEMP 35.8; O2SAT 96
[2021-08-16 10:14] VITALS: BP 113/57; PULSE 76; RESP 16; TEMP 35.9; O2SAT 96
[2021-08-16 10:55] VITALS: BP 118/56; PULSE 77; RESP 16; TEMP 36.1; O2SAT 95
[2021-08-16] MEDS: 0.9% NaCl Peripheral Flush Adult/Peds IV (10:55)
[2021-08-16] MEDS: Furosemide 20 MG/2 ML VIAL IV (10:56)
[2021-08-16 11:31] VITALS: BP 115/60; PULSE 77; RESP 16; TEMP 36.1; O2SAT 98
[2021-08-16 12:31] VITALS: BP 113/60; PULSE 79; RESP 16; TEMP 35.9
== END ==
PROVIDERS: PCP Surgery; Referring Provider Internal Medicine; Visit Provider Internal Medicine
DX: D64.9 Anemia, unspecified (principal); K92.2 Gastrointestinal hemorrhage, unspecified
CPT/HCPCS: 36415; 36430; 86850; 86900; 86901; 86920; 86922; J7040; P9016; A4216; J1940

== ENCOUNTER → 2021-11-17 10:40 | Outpatient (CLI) | payer MEDICARE, OTHER, SELFPAY ==
[2021-11-17 11:47] LABS: International Normalized Ratio 2.2; Prothrombin Time (Protime)PT. 23.8 SECONDS (11.7-14.9)
== END ==
PROVIDERS: PCP Internal Medicine
DX: I48.0 Paroxysmal atrial fibrillation (principal)
CPT/HCPCS: 85610

== ENCOUNTER → 2022-02-22 | Outpatient (CLI) | payer MEDICARE, OTHER, SELFPAY ==
--- NOTE | 2022-02-22 15:02 | CT_ITS ---
STUDY: LOW DOSE CT LUNG CANCER SCREENING REASON FOR EXAM: Male, 71 years old. NICOTINE USE. 2 PPD X 45 YEARS. COPD RADIATION DOSAGE (If Supplied By Facility): CTDIvol = ( 4.02 ) mGy, DLP = ( 133.41 ) mGycm TECHNIQUE: No contrast was administered. Low dose technique was utilized (average mAS-38 and kVp 120). 1.25 mm axial source images with a slice interval of 1.25-mm were reconstructed in lung windows. 2.5 mm axial source images with a slice interval of 2.5-mm were reconstructed in lung windows. 5.0 mm axial source images with a slice interval of 5.0-mm were reconstructed in soft tissue windows. COMPARISON: Comparison is made with prior study dated 02/01/2021. A left-sided dual-chamber pacemaker is seen. NODULES: No suspicious nodules are seen. Emphysema: Stable mild increased markings at the lung bases suggestive of mild basilar scarring. Endobronchial lesion: Aorta: Atherosclerotic plaque formation of the aortic arch. CORONARY ARTERIES: Coronary artery calcification is seen. Heart: Unremarkable Pulmonary artery: Unremarkable Mediastinal nodes: Benign-appearing mediastinal lymph nodes. Other chest and abdominal findings: CT/Low Dose CT Lung Screening IMPRESSION: Lung-RADS category 2 - Continue annual screening with LDCT in 12 months. IMPORTANT NOTES FOR USE: ACR Lung-RADS Version 1.1 Assessment Categories Release Date: 2018 Category: Coded 0-4 bases on nodule(s) with highest degree of suspicion. Negative screen is defined as categories 1 and 2; a positive screen is defined as categories 3 and 4. Category 3 and 4A nodules that are unchanged on interval CT should be coded as category 2, and individuals returned to screening in 12 months. Category 4X: Category 3 or 4 nodules with additional imaging findings that increase the suspicion of lung cancer, such as spiculation, GGN that doubles in size in 1 year, enlarged lymph notes, etc. Category Modifiers: S (significant finding unrelated to lung cancer) Electronically Signed: Davon Pena MD at 15:26 EDT ,
== END | disposition home or self-care (01) ==
LOC: CT 15:01
PROVIDERS: PCP Internal Medicine; Referring Provider Internal Medicine Pulmonary Disease; Visit Provider Internal Medicine Pulmonary Disease
DX: Z87.891 Personal history of nicotine dependence (principal)
CPT/HCPCS: 71271

== ENCOUNTER → 2022-12-13 | Outpatient (CLI) | payer MEDICARE, OTHER, SELFPAY ==
--- NOTE | 2022-12-13 10:12 | RAD_ITS ---
STUDY: X-RAY - PELVIS REASON FOR EXAM: Male, 72 years old. Psoriatic arthropathy. TECHNIQUE: One view of the pelvis was obtained. COMPARISON: None. FINDINGS: There is a non-specific bowel gas pattern. Normal visualized soft tissue structures. Osteopenia. Normal bilateral iliac wings, sacroiliac joints and visualized sacrum. Normal visualized bilateral superior and inferior pubic rami. Normal pubic symphysis. Normal ischial tuberosities. Moderate arthrosis of both hips with small osteophytes. RAD/Pelvis 1 or 2 Views IMPRESSION: Osteopenia with moderate arthrosis of both hips divides. No sacroiliitis. Electronically Signed: Willie Valdez, at 9:41 EDT ,
[2022-12-13 12:13] LABS: Absolute Neutrophil Count 3.5 X10^3/uL (2.0-7.7); Basophil# 0.05 X10^3/uL; Eosinophil# 0.09 X10^3/uL; Eosinophils% 1.8 % (0-5); Erythrocyte Sedimentation Rate 51 mm/hr (0-20); Hematocrit 37.1 % (40-54); Hemoglobin 11.4 g/dL (13.0-16.5); Lymphocyte % 21.8 % (19-41); Mean Corp Hgb Conc 30.7 g/dL (32-36); Mean Corpuscular Hgb 24.9 pg (27.0-32.0); Mean Corpuscular Volume 81.2 fL (80-94); Monocyte# 0.32 X10^3/uL; Monocyte% 6.3 % (0-10); NRBC Flagged by Analyzer 0 % (0-5); Neutrophil # 3.46 X10^3/uL (2.7-7.7); Neutrophil % 68.7 % (47-70); Platelet Count 124 K/mm3 (150-450); RBC Distribution Width CV 17.5 % (11.6-14.6); RBC Distribution Width SD 51.2 fl (35.1-43.9); Red Blood Count 4.57 M/mm3 (4.6-6.2)
[2022-12-13 12:30] LABS: ALB/GLOB Ratio 0.9 RATIO (0.9-2.4); AST(SGOT) 16 U/L (15-37); Alanine Aminotransfer ALT/SGPT 17 U/L (16-61); Albumin, Serum 3.5 g/dL (3.2-5.0); Alkaline Phosphatase 104 U/L (45-117); Anion Gap 8 (5-15); BUN 8 mg/dL (7-18); BUN/Creat Ratio 8.9 RATIO (10-20); Calcium,Total 9.2 mg/dL (8.5-10.1); Chloride 107 mmol/L (98-107); EST Glomerular Filtration Rate 89 mL/min (>60); Est Glom Filt Rate - Afr Amer 107 mL/min (>60); Globulin 3.9 g/dL (2.2-4.2); Glucose 95 mg/dL (74-106); Potassium 4.2 mmol/L (3.5-5.1); Protein, Total 7.4 g/dL (6.4-8.2); Rheumatoid Factor < 10.0 IU/mL (<15); Sodium Level 138 mmol/L (136-145)
[2022-12-13 13:12] LABS: Hepatitis B Surface Antibody Non-Reactive; Hepatitis B Surface Antigen Non-Reactive (Nonreactive); Hepatitis C Antibody Non-Reactive (Nonreactive)
[2022-12-14 14:23] LABS: ANTINUCLEAR ANTIBODIES DIRECT Negative (Negative)
[2022-12-18 20:21] LABS: CCP IgG Antibodies 5 units (0-19); HLA B27 Positive (.)
== END | disposition home or self-care (01) ==
PROVIDERS: PCP Internal Medicine; Visit Provider Internal Medicine Rheumatology
DX: L40.59 Other psoriatic arthropathy (principal); L40.8 Other psoriasis; M18.0 Bilateral primary osteoarthritis of first carpometacarpal joints
CPT/HCPCS: 36415; 72170; 80053; 81374; 85025; 85652; 86038; 86140; 86200; 86431; 86706; 86803; 87340

== ENCOUNTER → 2023-02-26 | Outpatient (CLI) | payer MEDICARE, OTHER, SELFPAY ==
--- NOTE | 2023-02-26 12:40 | CT_ITS ---
HISTORY: HX OF SMOKING. TECHNIQUE: Helically acquired images were obtained of the chest without contrast. A radiation dose optimization technique was used for this scan. 878 images. COMPARISON: 02/22/2022, 02/01/2021. FINDINGS: LARGE AIRWAYS: Grossly patent with minimal bubbly fluid in the trachea. LUNGS: Mild atelectasis and scarring again seen. Small calcified left lower lobe granulomas. No new suspicious nodule or acute alveolar consolidation. PLEURA: No pneumothorax or significant pleural effusion. HEART/PERICARDIUM: Borderline cardiomegaly with coronary artery disease. Pacemaker defibrillator in place.. No pericardial effusion. VESSELS: Thoracic aorta nondilated. MEDIASTINUM/MARTA: No pathologically enlarged adenopathy. BONES: Degenerative change. CT/Low Dose CT Lung Screening IMPRESSION: No significant interval change in very mild scarring and atelectasis in the lungs. Lungs-RADS category 2: Continue annual screening with low dose CT. Electronically Signed: Holley Crepso MD at 14:14 EDT ,
== END | disposition home or self-care (01) ==
LOC: CT 12:40
PROVIDERS: PCP Internal Medicine; Referring Provider Internal Medicine Pulmonary Disease; Visit Provider Internal Medicine Pulmonary Disease
DX: Z12.2 Encounter for screening for malignant neoplasm of respiratory organs (principal); F17.210 Nicotine dependence, cigarettes, uncomplicated
CPT/HCPCS: 71271

== ENCOUNTER → 2023-07-25 | Outpatient (CLI) | payer MEDICARE, OTHER, SELFPAY ==
[2023-07-25 15:18] LABS: Absolute Lymphocyte Count 1.45 X10^3/uL (0.83-4.51); Absolute Neutrophil Count 3.5 X10^3/uL (2.0-7.7); Basophil# 0.05 X10^3/uL; Basophil% 0.9 % (0-1); Eosinophil# 0.12 X10^3/uL; Eosinophils% 2.2 % (0-5); Hematocrit 33.9 % (40-54); Hemoglobin 10.1 g/dL (13.0-16.5); Lymphocyte # 1.45 X10^3/ul (0.83-4.51); Lymphocyte % 26.9 % (19-41); Mean Corp Hgb Conc 29.8 g/dL (32-36); Mean Corpuscular Hgb 23.7 pg (27.0-32.0); Mean Corpuscular Volume 79.4 fL (80-94); Mean Platelet Vol. 10.8 fl (6.2-12.0); Monocyte% 5.6 % (0-10); NRBC Flagged by Analyzer 0 % (0-5); Neutrophil # 3.46 X10^3/uL (2.7-7.7); Neutrophil % 64.2 % (47-70); Platelet Count 164 K/mm3 (150-450); RBC Distribution Width CV 16.5 % (11.6-14.6); RBC Distribution Width SD 46.8 fl (35.1-43.9); Red Blood Count 4.27 M/mm3 (4.6-6.2); White Blood Count 5.4 K/mm3 (4.4-11.0)
[2023-07-25 15:30] LABS: ALB/GLOB Ratio 0.6 RATIO (0.9-2.4); AST(SGOT) 14 U/L (15-37); Alanine Aminotransfer ALT/SGPT 14 U/L (16-61); Albumin, Serum 2.6 g/dL (3.2-5.0); Alkaline Phosphatase 151 U/L (45-117); Anion Gap 8 (5-15); BUN 9 mg/dL (7-18); BUN/Creat Ratio 8.9 RATIO (10-20); CRP 9.89 mg/L (0.0-3.0); Calcium,Total 8.2 mg/dL (8.5-10.1); Chloride 104 mmol/L (98-107); Creatinine, Serum 1.01 mg/dL (0.70-1.30); EST Glomerular Filtration Rate 77 mL/min (>60); Est Glom Filt Rate - Afr Amer 93 mL/min (>60); Glucose 83 mg/dL (74-106); Potassium 3.2 mmol/L (3.5-5.1); Protein, Total 6.6 g/dL (6.4-8.2); Sodium Level 142 mmol/L (136-145)
[2023-07-25 15:35] LABS: Erythrocyte Sedimentation Rate 21 mm/hr (0-20)
== END | disposition home or self-care (01) ==
LOC: MTLAB 11:34
PROVIDERS: PCP Internal Medicine; Referring Provider Internal Medicine Rheumatology; Visit Provider Internal Medicine Rheumatology
DX: L40.59 Other psoriatic arthropathy (principal); J44.9 Chronic obstructive pulmonary disease, unspecified; I42.9 Cardiomyopathy, unspecified; E11.42 Type 2 diabetes mellitus with diabetic polyneuropathy; I48.92 Unspecified atrial flutter; L40.8 Other psoriasis; M18.0 Bilateral primary osteoarthritis of first carpometacarpal joints; M47.897 Other spondylosis, lumbosacral region; I10 Essential (primary) hypertension; E78.5 Hyperlipidemia, unspecified; K21.9 Gastro-esophageal reflux disease without esophagitis; K76.0 Fatty (change of) liver, not elsewhere classified; E03.9 Hypothyroidism, unspecified; N40.1 Benign prostatic hyperplasia with lower urinary tract symptoms; R35.1 Nocturia; G47.33 Obstructive sleep apnea (adult) (pediatric); F32.A Depression, unspecified; Z86.2 Personal history of diseases of the blood and blood-forming organs and certain disorders involving the immune mechanism; Z85.820 Personal history of malignant melanoma of skin
CPT/HCPCS: 36415; 80053; 85025; 85652; 86140

== ENCOUNTER → 2024-01-15 | Outpatient (CLI) | payer MEDICARE, SELFPAY ==
[2024-01-15 12:43] LABS: Erythrocyte Sedimentation Rate 34 mm/hr (0-20)
[2024-01-15 12:56] LABS: Absolute Lymphocyte Count 0.97 X10^3/uL (0.83-4.51); Absolute Neutrophil Count 3.5 X10^3/uL (2.0-7.7); Basophil# 0.06 X10^3/uL; Basophil% 1.2 % (0-1); Eosinophil# 0.08 X10^3/uL; Eosinophils% 1.6 % (0-5); Hematocrit 31.8 % (40-54); Hemoglobin 10.2 g/dL (13.0-16.5); Lymphocyte # 0.97 X10^3/ul (0.83-4.51); Lymphocyte % 19.8 % (19-41); Mean Corp Hgb Conc 32.1 g/dL (32-36); Mean Corpuscular Hgb 26.5 pg (27.0-32.0); Mean Corpuscular Volume 82.6 fL (80-94); Mean Platelet Vol. 9.7 fl (6.2-12.0); Monocyte# 0.24 X10^3/uL; Monocyte% 4.9 % (0-10); NRBC Flagged by Analyzer 0 % (0-5); Neutrophil # 3.54 X10^3/uL (2.7-7.7); Neutrophil % 72.1 % (47-70); Platelet Count 136 K/mm3 (150-450); RBC Distribution Width CV 15.6 % (11.6-14.6); RBC Distribution Width SD 46.6 fl (35.1-43.9); Red Blood Count 3.85 M/mm3 (4.6-6.2); White Blood Count 4.9 K/mm3 (4.4-11.0)
[2024-01-15 13:09] LABS: ALB/GLOB Ratio 0.7 RATIO (0.9-2.4); AST(SGOT) 12 U/L (15-37); Alanine Aminotransfer ALT/SGPT 10 U/L (16-61); Albumin, Serum 2.6 g/dL (3.2-5.0); Alkaline Phosphatase 127 U/L (45-117); Anion Gap 5 (5-15); BUN 7 mg/dL (7-18); BUN/Creat Ratio 6.9 RATIO (10-20); Calcium,Total 8.8 mg/dL (8.5-10.1); Chloride 107 mmol/L (98-107); Creatinine, Serum 1.02 mg/dL (0.70-1.30); EST Glomerular Filtration Rate 76 mL/min (>60); Est Glom Filt Rate - Afr Amer 92 mL/min (>60); Globulin 3.8 g/dL (2.2-4.2); Glucose 100 mg/dL (74-106); Potassium 3.5 mmol/L (3.5-5.1); Protein, Total 6.4 g/dL (6.4-8.2); Sodium Level 139 mmol/L (136-145)
== END | disposition home or self-care (01) ==
LOC: MTLAB 11:01
PROVIDERS: PCP Internal Medicine; Referring Provider Internal Medicine Rheumatology; Visit Provider Internal Medicine Rheumatology
DX: L40.59 Other psoriatic arthropathy (principal); L40.8 Other psoriasis; Z79.899 Other long term (current) drug therapy
CPT/HCPCS: 36415; 80053; 85025; 85652; 86140

== ENCOUNTER 2024-02-25 11:52 | Emergency (ER) | payer MEDICARE, SELFPAY ==
[2024-02-25 11:53] VITALS: BP 118/75; PULSE 84; RESP 20; TEMP 36.6; O2SAT 100; BMI 34.2
--- NOTE | 2024-02-25 12:08 | VDLE_ITS ---
Reason For Study: Left leg swelling RIGHT LEFT CFV is compressible, spontaneous, phasic, GSV is normal. competent and demonstrates normal CFV is compressible, spontaneous, phasic, augmentation. competent, and demonstrates normal Procedure augmentation. This is a venous duplex using B-mode, color FV is compressible, spontaneous, phasic, flow and spectral Doppler. competent and demonstrates normal Exam performed portable in ED. augmentation. A preliminary report was called and/or faxed POP V is compressible, spontaneous, phasic, to Dr. Shepard. competent and demonstrates normal augmentation. T/P Trunk is compressible. PTV is compressible. LT PerV is compressible. Large nonvascularized structure noted in the left knee-prox calf area. VL/Venous Duplex US, Unilateral Interpretation Summary There is no evidence of left lower extremity deep vein thrombosis. Left great s aphenous vein appears patent and compressible segmentally. At least 10 cm long nonvascular structure left knee the proximal calf. Clinical correlation would be appropriate Normal flow patterns right common femoral vein Ordering Physician: Janee Mclaughlin Referring Physician: Dee Chawla Performed By: Marleni Dye RVT
--- NOTE | 2024-02-25 12:08 | RAD_ITS ---
STUDY: X-RAY CHEST REASON FOR EXAM: Male, 73 years old. Shortness of breath. Three-week history of left leg swelling. TECHNIQUE: Single AP portable view of the chest. COMPARISON: Comparison is made with prior study of June 09, 2021. FINDINGS: Stable mild increased markings at the left lung base suggestive of mild scarring. There is no demonstrated pleural abnormality. Normal size heart. A left-sided dual-chamber pacemaker is seen. Normal mediastinum and mariana. Normal visualized pulmonary arteries. There is atherosclerotic calcification of the aortic arch with tortuosity. There are diffuse degenerative changes of the visualized thoracic spine. Normal visualized ribs, clavicles, and shoulders. There is no demonstrated abnormality of the visualized soft tissue structures of the upper abdomen. RAD/Chest 1 View (Portable) IMPRESSION: Stable examination. Findings suggest some mild left basilar scarring. Electronically Signed: Davon Pena MD at 13:02 EDT ,
--- NOTE | 2024-02-25 12:10 | EX.ED.DYSGE1 ---
HPI History of Present Illness Chief Complaint: Edema Informant: patient Onset/Context/Timing Onset: Weeks Narrative Narrative: Patient presents with a 3-week history of increased swelling to his left lower extremity. He states he feels like there is a soft mass behind his left knee. Patient has a history of A-fib and is currently on Coumadin. His last INR check was approximately 5 days ago and his INR was too high at that time. He states he has had some weakness at home and fell last Sunday. His PCP reportedly canceled an appointment with him so he went to urgent care today who then referred him to the emergency room. He denies chest pain or significant shortness of breath. [facility] Medical History Injury of head and neck Cancer Hepatitis Former smoker CPAP (continuous positive airway pressure) dependence Sleep apnea Atrial fibrillation ICD (implantable cardioverter-defibrillator) in place Pacemaker Hypertension Acute calculous cholecystitis Hyperlipemia Diabetic neuropathy HTN (hypertension) Diabetes Home Medications ?Medication ?Instructions ?Recorded ?Last Taken ?Type allopurinol 100 mg tablet 200 mg PO DAILYCM GOUT 05/12/14 06/08/21 08:45 History aspirin 81 mg chewable tablet 81 mg PO DAILY@0800 HEALTH 05/12/14 06/08/21 08:45 History atorvastatin 20 mg tablet 20 mg PO QODAY CHOLESTEROL 05/12/14 1 Week Ago History ~06/02/21 clonidine HCl 0.1 mg tablet 0.1 mg PO BID BP 05/12/14 06/08/21 08:45 History duloxetine 60 mg capsule,delayed 60 mg PO DAILY MOOD 05/12/14 06/08/21 08:45 History release gabapentin 300 mg capsule 600 mg PO QHS NERVE PAIN 05/12/14 06/08/21 History hydrochlorothiazide 25 mg tablet 25 mg PO DAILY BP 05/12/14 06/08/21 08:45 History insulin glargine 100 unit/mL (3 32 units subcut QHS DM 05/12/14 06/07/21 History mL) subcutaneous pen (Lantus Solostar U-100 Insulin) lisinopril 40 mg tablet 40 mg PO DAILY BP 05/12/14 06/08/21 08:45 History metformin 500 mg tablet 1,000 mg PO BIDCM DM 05/12/14 06/08/21 08:45 History potassium chloride 10 mEq 10 meq PO BID SUPPLEMENT 05/12/14 06/08/21 08:45 History tablet,extended release (Klor-Con) acetaminophen 500 mg tablet 1,000 mg PO BID PRN Pain 06/09/21 06/09/21 07:00 History amlodipine 5 mg tablet 5 mg PO DAILY BP 06/09/21 06/08/21 08:45 History magnesium oxide 400 mg PO BID SUPPLEMENT 06/09/21 06/08/21 08:45 History metoprolol tartrate 100 mg tablet 100 mg PO BID HEART 06/09/21 06/08/21 08:45 History tamsulosin 0.4 mg capsule 0.8 mg PO DAILY PROSTATE 06/09/21 06/08/21 08:45 History warfarin 5 mg tablet 5 mg PO MOTUWETHFRSA BLOODTHINNER 06/09/21 06/08/21 08:45 History warfarin 5 mg tablet 7.5 mg PO SANTAMARIA BLOOD THINNER 06/09/21 06/05/21 History Allergy/AdvReac Type Severity Reaction Status Date / Time No Known Allergies Allergy Verified 06/23/21 13:22 Surgical History Status post laparoscopic cholecystectomy (~06/2021) Social History Smoking Status: Former smoker ROS ROS ED Constitutional Constitutional ED: Denies chills or fever(s) Eyes Eyes: Denies discharge from eye(s) ENT ENT ED: Denies discharge from eye(s), rhinorrhea or sore throat Cardiovascular Cardiovascular: Denies chest pain or palpitations Respiratory/Chest Respiratory/Chest: Denies cough or dyspnea Gastrointestinal Gastrointestinal: Denies abdominal pain, nausea or vomiting Musculoskeletal Musculoskeletal: Reports extremity pain; Denies back pain Integumentary Denies Abrasions or rash Neurologic Neurologic: Denies headache(s) or weakness Psychiatric Psychiatric: Denies anxiety or depression Allergic/Immunologic Allergic/Immunologic ED: Denies lip swelling or urticaria EXAM Physical Exam Const Vital Signs: 02/25/24 11:53 Temperature 97.9 F Temperature Source Temporal Pulse Rate 84 Respiratory Rate 20 H Blood Pressure 118/75 Blood Pressure Mean 89 Pulse Ox 100 Oxygen Delivery Method Room Air Positive well nourished and well developed General Appearance ED: well developed HEENT Reports moist mucous membranes Eyes EOMs intact bilaterally Chest Wall inspection of chest normal and palpation of chest normal Resp normal respiratory effort and clear to auscultation bilaterally Cardio regular rate and regular rhythm GI non-tender Palpation: soft Extremity Extremity Narrative: 3+ edema to the left lower extremity. 2+ edema to the right lower extremity. Strong distal pulses. No erythema or wounds. Neuro oriented x3 Neuro Narrative: No focal neurologic deficit. Psych mental status grossly normal Skin no rashes or lesions noted MDM MDM MDM Narrative Medical decision making narrative: IV line established. Labwork obtained to evaluate for leukocytosis, anemia, and electrolyte derangement. Chest x-ray obtained to evaluate for acute lung pathology, cardiac size, or mediastinal abnormality. Venous ultrasound of the left lower extremity obtained to evaluate for potential DVT or Garvey's cyst. History & Record Review Discussion w/independent historian: Patient Lab Data Attestation: I reviewed the patient's lab results. Labs: Laboratory Results - last 24 hr 02/25/24 12:20 WBC 4.6 RBC 3.73 L Hgb 10.0 L Hct 32.0 L MCV 85.8 MCH 26.8 L MCHC 31.3 L RDW Std Deviation 47.0 H RDW Coeff of [place] 15.0 H Plt Count 124 L MPV 9.7 Immature Gran % (Auto) 0.400 Neut % (Auto) 68.0 Lymph % (Auto) 21.8 [place] % (Auto) 6.7 Eos % (Auto) 2.2 Baso % (Auto) 0.9 Absolute Neuts (auto) 3.2 Absolute Lymphs (auto) 1.01 Nucleated RBC % 0 PT 24.5 H INR 2.2 Sodium 139 Potassium 3.9 Chloride 107 Carbon Dioxide 26.0 Anion Gap 6 BUN 8 Creatinine 1.10 Estim Creat Clear Calc 71.42 Est GFR (MDRD) Af Amer 84 Est GFR (MDRD) Non-Af 70 BUN/Creatinine Ratio 7.3 L Glucose 112 H Calcium 8.8 B-Natriuretic Peptide 72.2 Radiography Diagnostic Testing: Clinical Impression(s) from Imaging Studies Chest X-Ray 02/25/24 12:08 IMPRESSION: Stable examination. Findings suggest some mild left basilar scarring. Electronically Signed: Davon Pena MD at 13:02 EDT , Venous Doppler Study 02/25/24 12:08 Interpretation Summary There is no evidence of left lower extremity deep vein thrombosis. Left great saphenous vein appears patent and compressible segmentally. At least 10 cm long nonvascular structure left knee the proximal calf. Clinical correlation would be appropriate Normal flow patterns right common femoral vein Ordering Physician: Janee Mclaughlin Referring Physician: Dee Chawla Performed By: Marleni Dye Carter Treatment and Re-Evaluation :: CBC reveals white count of 4.6 with normal differential. Hemoglobin is 10.0. This is consistent with his prior values. INR is therapeutic at 2.2. Chemistry studies unremarkable. BNP is normal at 72. Portable chest x-ray per my interpretation was chronic changes with no focal infiltrate. Radiology interpretation reviewed and agrees. Venous ultrasound of the left leg reveals no evidence of lower extremity DVT. There is a 10 cm long nonvascular structure in the left knee/proximal calf. When I spoke with the tech she thought this may have been from a Garvey's cyst or even a muscle tear. This was discussed with the patient. He does not remember a specific injury, but does state that he feels that his strength is worse in that left leg. Kenan wrap will be applied to the left leg to provide light compression to help with fluid reabsorption. He will be referred to Dr. Nolan, on-call for orthopedics for follow-up. Return instructions given. Discharge Plan Triage Chief Complaint: Edema ED Provider: Janee Mclaughlin Dx/Rx/DC Orders Clinical Impression: Leg edema, Muscle tear Instructions: ED Peripheral Edema, Unilateral Prescriptions: No Action metformin 500 MG tablet 1,000 mg PO BIDCM Patient Comments: 2 TAB IN AM, 2 TAB AFTERNOON, 1 TAB HS clonidine HCl 0.1 MG tablet 0.1 mg PO BID atorvastatin 20 MG tablet 20 mg PO QODAY potassium chloride [Klor-Con 10] 10 MEQ tablet extended release 10 meq PO BID allopurinol 100 MG tablet 200 mg PO DAILYCM gabapentin 300 MG capsule 600 mg PO QHS aspirin 81 MG tablet,chewable 81 mg PO DAILY@0800 hydrochlorothiazide 25 MG tablet 25 mg PO DAILY lisinopril 40 MG tablet 40 mg PO DAILY duloxetine 60 MG capsule 60 mg PO DAILY Lantus Solostar U-100 Insulin 100 UNITS/ML insulin pen 32 units subcut QHS metoprolol tartrate 100 mg tablet 100 mg PO BID Patient Comments: TAKE 1 TABLET BY MOUTH TWICE DAILY amlodipine 5 mg tablet 5 mg PO DAILY Patient Comments: TAKE 1 TABLET BY MOUTH ONCE DAILY acetaminophen 500 mg Tablet 1,000 mg PO BID PRN (Reason: Pain) tamsulosin 0.4 mg capsule 0.8 mg PO DAILY Patient Comments: TAKE 2 CAPSULES BY MOUTH ONCE DAILY warfarin 5 mg tablet 7.5 mg PO SANTAMARIA Patient Comments: TAKE 1 TABLET BY MOUTH ONCE DAILY warfarin 5 mg tablet 5 mg PO MOTUWETHFRSA Patient Comments: TAKE 1 TABLET BY MOUTH ONCE DAILY magnesium oxide 400 mg magnesium tablet 400 mg PO BID Patient Comments: TAKE 1 TABLET BY MOUTH TWICE DAILY Primary Care Provider: Dee Chawla Referrals: Dee Chawla MD [Primary Care Provider] - Denys Nolan DO [Med Staff - Active Staff] - 1-2 Weeks Print Language: Citizen Of [place] Disposition Disposition: Home, Self Care
[2024-02-25 12:39] LABS: Absolute Lymphocyte Count 1.01 X10^3/uL (0.83-4.51); Absolute Neutrophil Count 3.2 X10^3/uL (2.0-7.7); Basophil# 0.04 X10^3/uL; Basophil% 0.9 % (0-1); Eosinophils% 2.2 % (0-5); Lymphocyte # 1.01 X10^3/ul (0.83-4.51); Lymphocyte % 21.8 % (19-41); Mean Corp Hgb Conc 31.3 g/dL (32-36); Mean Corpuscular Hgb 26.8 pg (27.0-32.0); Mean Corpuscular Volume 85.8 fL (80-94); Mean Platelet Vol. 9.7 fl (6.2-12.0); Monocyte# 0.31 X10^3/uL; Monocyte% 6.7 % (0-10); NRBC Flagged by Analyzer 0 % (0-5); Neutrophil # 3.15 X10^3/uL (2.7-7.7); Platelet Count 124 K/mm3 (150-450); Red Blood Count 3.73 M/mm3 (4.6-6.2); White Blood Count 4.6 K/mm3 (4.4-11.0)
[2024-02-25 12:40] LABS: International Normalized Ratio 2.2; Prothrombin Time (Protime)PT. 24.5 SECONDS (11.7-14.9)
[2024-02-25 12:49] LABS: Anion Gap 6 (5-15); BUN 8 mg/dL (7-18); BUN/Creat Ratio 7.3 RATIO (10-20); Calcium,Total 8.8 mg/dL (8.5-10.1); Chloride 107 mmol/L (98-107); EST Glomerular Filtration Rate 70 mL/min (>60); Est Glom Filt Rate - Afr Amer 84 mL/min (>60); Estimated Creatinine Clearance 71.42 ml/min; Glucose 112 mg/dL (74-106); Potassium 3.9 mmol/L (3.5-5.1); Sodium Level 139 mmol/L (136-145)
[2024-02-25 13:05] LABS: BNP,B-Type NATRIURETIC PEPTIDE 72.2 pg/mL (0-100)
[2024-02-25 13:23] VITALS: BP 125/77; PULSE 81; RESP 16; TEMP 36.7; O2SAT 99
== END 2024-02-25 13:24 | disposition home or self-care (01) ==
PROVIDERS: Emergency Provider Emergency Medicine; PCP Internal Medicine; Visit Provider Emergency Medicine
DX: S86.912A Strain of unspecified muscle(s) and tendon(s) at lower leg level, left leg, initial encounter (principal); I48.91 Unspecified atrial fibrillation; Z79.4 Long term (current) use of insulin; E11.40 Type 2 diabetes mellitus with diabetic neuropathy, unspecified; R60.0 Localized edema; W19.XXXA Unspecified fall, initial encounter; Z79.82 Long term (current) use of aspirin; Z79.01 Long term (current) use of anticoagulants; Z79.84 Long term (current) use of oral hypoglycemic drugs; Z87.891 Personal history of nicotine dependence; Z95.810 Presence of automatic (implantable) cardiac defibrillator; I10 Essential (primary) hypertension
CPT/HCPCS: 71045; 80048; 83880; 85025; 85610; 93971; 99283; A4216

== ENCOUNTER → 2024-02-29 | Outpatient (CLI) | payer MEDICARE, SELFPAY ==
--- NOTE | 2024-02-29 12:58 | CT_ITS ---
EXAM: CT CHEST, LUNG CANCER SCREENING WITHOUT INTRAVENOUS CONTRAST CLINICAL INDICATION: HX NICOTINE DEPENDENCE TECHNIQUE: Helically acquired images were obtained of the chest without intravenous contrast using low dose (LDCT) lung cancer screening protocol. This CT exam was performed using one or more of the following dose reduction techniques: automated exposure control, adjustment of the mA and/or kV according to patient size, and/or use of iterative reconstruction technique. COMPARISON: CT Lung Cancer Screening dated 02/26/2023 FINDINGS: LUNGS AND PLEURAL SPACES: Stable 4 mm left upper lobe pulmonary nodule on image 118 of sequence 2. Stable 5 mm right lower lobe pulmonary nodule again noted on image 182 of sequence 2. Tiny granulomata within the left lung again noted. No pleural effusion or thickening. No pneumothorax. HEART: Coronary artery calcification and stents noted. No pericardial effusion. Normal heart size. MEDIASTINUM: Normal. No mediastinal or hilar adenopathy. Esophagus is unremarkable. No hiatal hernia. THYROID: Normal. No thyroid nodules or calcification. BONES/JOINTS: No suspicious lytic or blastic abnormality. VASCULATURE: No aortic aneurysm. LYMPH NODES: Normal. No enlarged lymph nodes. LIVER: Nodular contour of the liver and enlarged left and caudate lobes suggests underlying cirrhosis. SPLEEN: Spleen remains mildly enlarged. TUBES, LINES AND DEVICES: Atrial and ventricular pacemaker wires remain in place. CT/Low Dose CT Lung Screening IMPRESSION: 1. Stable 4 mm left upper lobe and stable 5 mm left lower lobe pulmonary nodules. 2. Liver appears suggestive of cirrhosis. Lung-RADS score: 2 - Benign Appearance or Behavior. Recommend continued annual screening with a low-dose CT (LDCT) in 12 months. Electronically Signed: Bobby Hernandez MD at 17:02 EDT ,
== END | disposition home or self-care (01) ==
PROVIDERS: PCP Internal Medicine; Referring Provider Internal Medicine Pulmonary Disease; Visit Provider Internal Medicine Pulmonary Disease
DX: Z87.891 Personal history of nicotine dependence (principal)
CPT/HCPCS: 71271

== ENCOUNTER → 2024-03-12 | Outpatient (CLI) | payer MEDICARE, SELFPAY ==
--- NOTE | 2024-03-12 16:35 | CT_ITS ---
CT LEFT LOWER EXTREMITY WITH 3-D IMAGING CLINICAL INDICATION: MASS LLE/OA TECHNIQUE: Axial CT images of the LEFT lower extremity was performed with IV contrast material. Coronal and sagittal reformats were provided. The protocol utilizes one or more of the following dose reduction techniques: automated exposure control, adjustment of mA and/or kV according to patient size,and/or use of iterative reconstruction technique. RADIATION DOSAGE (If Supplied By Facility): CTDIvol = ( 15.35 ) mGy, DLP = ( 1075.26 ) mGycm COMPARISON: FINDINGS: Bones: Osseous structures are normal without evidence of fracture or dislocation. No lytic or blastic osseous masses. Soft Tissues: Mild muscular atrophy. Diffuse skin thickening and edema of the subcutaneous fat possibly from passive congestion or cellulitis. 2.0 x 5.5 cm peripherally enhancing crescent shaped fluid collection of the superficial subcapsular medial head of the gastrocnemius muscle worrisome for a seroma, chronic hematoma, or abscess. Lateral subluxation of patella suggestive of patellofemoral maltracking. Small joint effusion with a small Garvey''s cyst. CT/Extremity Lower WITH Contrast IMPRESSION: 1. Diffuse skin thickening and edema in the subcutaneous fat suggestive of passive congestion or cellulitis. 2. 2.0 x 5.5 cm fluid collection of the subcapsular medial head of the gastrocnemius muscle. Differential diagnosis includes seroma, chronic hematoma, or abscess. Electronically Signed: Hussein Blair MD at 18:43 EDT ,
== END | disposition home or self-care (01) ==
LOC: CT 16:33
PROVIDERS: PCP Internal Medicine; Referring Provider Physician Assistant; Visit Provider Physician Assistant
DX: R22.42 Localized swelling, mass and lump, left lower limb (principal); M17.12 Unilateral primary osteoarthritis, left knee
CPT/HCPCS: 73701; Q9967

== ENCOUNTER → 2024-07-08 | Outpatient (CLI) | payer MEDICARE, SELFPAY ==
[2024-07-08 18:40] LABS: ALB/GLOB Ratio 0.7 RATIO (0.9-2.4); AST(SGOT) 14 U/L (15-37); Alanine Aminotransfer ALT/SGPT 12 U/L (16-61); Albumin, Serum 2.9 g/dL (3.2-5.0); Alkaline Phosphatase 143 U/L (45-117); Anion Gap 9 (5-15); BUN 7 mg/dL (7-18); BUN/Creat Ratio 5.3 RATIO (10-20); Calcium,Total 8.9 mg/dL (8.5-10.1); Chloride 105 mmol/L (98-107); Creatinine, Serum 1.31 mg/dL (0.70-1.30); EST Glomerular Filtration Rate 57 mL/min (>60); Est Glom Filt Rate - Afr Amer 69 mL/min (>60); Globulin 4.3 g/dL (2.2-4.2); Glucose 115 mg/dL (74-106); Potassium 3.2 mmol/L (3.5-5.1); Protein, Total 7.2 g/dL (6.4-8.2); Sodium Level 138 mmol/L (136-145)
[2024-07-08 19:01] LABS: Absolute Lymphocyte Count 1.64 X10^3/uL (0.83-4.51); Absolute Neutrophil Count 3.7 X10^3/uL (2.0-7.7); Basophil# 0.08 X10^3/uL; Basophil% 1.3 % (0-1); Eosinophil# 0.08 X10^3/uL; Eosinophils% 1.3 % (0-5); Hematocrit 41.1 % (40-54); Hemoglobin 13.2 g/dL (13.0-16.5); Lymphocyte # 1.64 X10^3/ul (0.83-4.51); Lymphocyte % 27.6 % (19-41); Mean Corp Hgb Conc 32.1 g/dL (32-36); Mean Corpuscular Hgb 27.3 pg (27.0-32.0); Mean Corpuscular Volume 85.1 fL (80-94); Mean Platelet Vol. 12.2 fl (6.2-12.0); Monocyte# 0.39 X10^3/uL; Monocyte% 6.6 % (0-10); NRBC Flagged by Analyzer 0 % (0-5); Neutrophil # 3.74 X10^3/uL (2.7-7.7); Platelet Count 188 K/mm3 (150-450); RBC Distribution Width CV 15.1 % (11.6-14.6); RBC Distribution Width SD 46.6 fl (35.1-43.9); Red Blood Count 4.83 M/mm3 (4.6-6.2); White Blood Count 5.9 K/mm3 (4.4-11.0)
[2024-07-08 19:04] LABS: Erythrocyte Sedimentation Rate 9 mm/hr (0-20)
== END | disposition home or self-care (01) ==
LOC: MTLAB 13:57
PROVIDERS: PCP Internal Medicine; Referring Provider Internal Medicine Rheumatology; Visit Provider Internal Medicine Rheumatology
DX: L40.59 Other psoriatic arthropathy (principal); L40.8 Other psoriasis; Z79.899 Other long term (current) drug therapy
CPT/HCPCS: 36415; 80053; 85025; 85652; 86140

== ENCOUNTER 2024-07-10 09:14 | Emergency (ER) | payer MEDICARE, SELFPAY ==
[2024-07-10 09:15] VITALS: BP 140/99; PULSE 73; RESP 18; TEMP 36.6; O2SAT 93
--- NOTE | 2024-07-10 10:10 | EDS_ITS ---
HPI History of Present Illness Chief Complaint: General Illness Informant: patient and spouse/S.O. Narrative Narrative: 74-year-old male presenting to the emergency room with a chief complaint of vomiting diarrhea. Patient states he has been ill for 1 week. He states he has diarrhea about every 2 hours and describes it as black water. He notes he last vomited on Sunday states that she believes he vomited yesterday. He noticed decreased p.o. intake stating that he is only been taking applesauce. He denies any urinary symptoms but does state that he has been urinating more frequently than normal. No reported fevers or chills. He notes some right sided abdominal discomfort. He denies a history of colitis. He is a diabetic and he also reportedly takes Coumadin. This is for atrial fibrillation. He denies any URI symptoms or dyspnea. No syncope. [facility] Medical History Injury of head and neck Cancer Hepatitis Former smoker CPAP (continuous positive airway pressure) dependence Sleep apnea Atrial fibrillation ICD (implantable cardioverter-defibrillator) in place Pacemaker Hypertension Acute calculous cholecystitis Hyperlipemia Diabetic neuropathy HTN (hypertension) Diabetes Home Medications ?Medication ?Instructions ?Recorded ?Last Taken ?Type allopurinol 100 mg tablet 200 mg PO DAILYCM GOUT 05/12/14 06/08/21 08:45 History aspirin 81 mg chewable tablet 81 mg PO DAILY@0800 HEALTH 05/12/14 06/08/21 08:45 History atorvastatin 20 mg tablet 20 mg PO QODAY CHOLESTEROL 05/12/14 1 Week Ago History ~06/02/21 clonidine HCl 0.1 mg tablet 0.1 mg PO BID BP 05/12/14 06/08/21 08:45 History duloxetine 60 mg capsule,delayed 60 mg PO DAILY MOOD 05/12/14 06/08/21 08:45 History release gabapentin 300 mg capsule 600 mg PO QHS NERVE PAIN 05/12/14 06/08/21 History hydrochlorothiazide 25 mg tablet 25 mg PO DAILY BP 05/12/14 06/08/21 08:45 History insulin glargine 100 unit/mL (3 32 units subcut QHS DM 05/12/14 06/07/21 History mL) subcutaneous pen (Lantus Solostar U-100 Insulin) lisinopril 40 mg tablet 40 mg PO DAILY BP 05/12/14 06/08/21 08:45 History metformin 500 mg tablet 1,000 mg PO BIDCM DM 05/12/14 06/08/21 08:45 History potassium chloride 10 mEq 10 meq PO BID SUPPLEMENT 05/12/14 06/08/21 08:45 History tablet,extended release (Klor-Con) acetaminophen 500 mg tablet 1,000 mg PO BID PRN Pain 06/09/21 06/09/21 07:00 History amlodipine 5 mg tablet 5 mg PO DAILY BP 06/09/21 06/08/21 08:45 History magnesium oxide 400 mg PO BID SUPPLEMENT 06/09/21 06/08/21 08:45 History metoprolol tartrate 100 mg tablet 100 mg PO BID HEART 06/09/21 06/08/21 08:45 History tamsulosin 0.4 mg capsule 0.8 mg PO DAILY PROSTATE 06/09/21 06/08/21 08:45 History warfarin 5 mg tablet 5 mg PO MOTUWETHFRSA BLOODTHINNER 06/09/21 06/08/21 08:45 History warfarin 5 mg tablet 7.5 mg PO SANTAMARIA BLOOD THINNER 06/09/21 06/05/21 History amoxicillin 875 mg-potassium 875 mg PO Q12H #14 TABLETS 07/10/24 Unknown Rx clavulanate 125 mg tablet potassium chloride 20 mEq 40 meq (2 x 20 mEq) PO DAILY #10 07/10/24 Unknown Rx tablet,extended release tabs Allergy/AdvReac Type Severity Reaction Status Date / Time No Known Allergies Allergy Verified 07/10/24 09:15 Surgical History Status post laparoscopic cholecystectomy (~06/2021) Social History Smoking Status: Former smoker ROS ROS ED Constitutional Constitutional ED: Denies chills, fever(s) or weight loss Eyes Eyes: Denies change in vision or diplopia ENT ENT ED: Denies ear pain, rhinorrhea or sore throat Cardiovascular Cardiovascular: Denies chest pain, orthopnea, palpitations or racing heartbeat Respiratory/Chest Respiratory/Chest: Denies cough, dyspnea or orthopnea Gastrointestinal Gastrointestinal: Reports abdominal pain, diarrhea, nausea and vomiting Genitourinary Genitourinary ED: Reports urinary frequency; Denies dysuria or hematuria Musculoskeletal Musculoskeletal: Denies arthralgias or myalgias Integumentary Denies abscess or rash Neurologic Neurologic: Denies headache(s) or weakness Psychiatric Psychiatric: Denies anxiety, depression, suicidal ideation or suicidal thoughts Endocrine Endocrinology: Denies polydipsia, polyphagia or polyuria Allergic/Immunologic Allergic/Immunologic ED: Denies mouth swelling, tongue swelling or urticaria EXAM Physical Exam Const Vital Signs: 07/10/24 09:15 07/10/24 11:14 07/10/24 13:39 Temperature 97.8 F 97.9 F Temperature Source Oral Pulse Rate 73 80 82 Respiratory Rate 18 18 16 Blood Pressure 140/99 H 139/91 H 137/90 H Blood Pressure Mean 112 107 105 Pulse Ox 93 95 97 Oxygen Delivery Method Room Air Positive well nourished and well developed General Appearance ED: well developed HEENT Reports normocephalic, head/scalp atraumatic and moist mucous membranes Eyes PERRL and EOMs intact bilaterally Neck no lymphadenopathy, supple and no JVD Resp normal respiratory effort and clear to auscultation bilaterally Cardio regular rate, regular rhythm and no murmurs GI no masses Inspection: Negative for abdominal distention Auscultation: normoactive bowel sounds Palpation: soft and tender other (Right sided abdominal tenderness to palpation. There is no guarding no rebound); Negative for guarding or rebound tenderness present Back/Spine no CVA tenderness and normal ROM Extremity normal to inspection General Extremety ED: Negative for edema General Extremity: Negative for edema Neuro oriented x3 and CN's II-XII intact bilaterally Sensorium / Orientation: alert Motor Exam: strength 5/5 throughout Psych mental status grossly normal Mood & Affect: Negative for depressed or tearful Skin no rashes or lesions noted and no wounds MDM MDM MDM Narrative Medical decision making narrative: Differential diagnosis includes viral gastroenteritis colitis bacterial gastroenteritis diverticulitis dehydration electrolyte abnormality Coumadin coagulopathy White count 5.8 with 73 neutrophils INR 2.4 potassium noted to be 3 creatinine 1.33 with a BUN of 10 anion gap 9 CO2 of 24 LFTs demonstrated direct bilirubin 0.32 total bilirubin 0.7 alk phos 136 lipase is normal at 34 urinalysis greater than 100 white cells however there is some contamination 5-10 squamous cells 5- 10 transitional cells 3+ bacteria. He is not symptomatic with this. A CT of the abdomen pelvis IV contrast was obtained. Please see the radiologist read for full dictation. There is really very minimal stool throughout the colon. There is no significant dilatation of small bowel. There is possible kidney stone but again the patient symptomology more on the other side is consistent more with a colonic problem. There are some changes that are suggestive of rectosigmoid colitis however the bowel is significantly decompressed and he has a normal white count. He was unable to give us a stool specimen despite several hours here in the department. Regular replace potassium. We talked at length regarding whether or not we should provide antibiotics. This could easily be all viral in nature and he is only been taking applesauce and not advancing the diet. I encouraged him to advance the diet. We reached a mutually agreed upon decision for a course of Augmentin. Patient is to monitor the urine for any symptomology return if worsening or concerns follow-up primary care if needed History & Record Review Discussion w/independent historian: Patient and Significant other Lab Data Attestation: I reviewed the patient's lab results. Labs: Laboratory Results - last 24 hr 07/10/24 07/10/24 10:00 10:33 WBC 5.8 RBC 4.97 Hgb 13.9 Hct 41.9 MCV 84.3 MCH 28.0 MCHC 33.2 RDW Std Deviation 46.5 H RDW Coeff of [place] 15.6 H Plt Count 166 MPV 11.6 Immature Gran % (Auto) 0.200 Neut % (Auto) 73.0 H Lymph % (Auto) 18.8 L [place] % (Auto) 5.6 Eos % (Auto) 1.2 Baso % (Auto) 1.2 H Absolute Neuts (auto) 4.2 Absolute Lymphs (auto) 1.08 Nucleated RBC % 0 PT 26.4 H INR 2.4 Sodium 140 Potassium 3.0 L Chloride 107 Carbon Dioxide 24.0 Anion Gap 9 BUN 10 Creatinine 1.33 H Estim Creat Clear Calc 58.50 Est GFR (MDRD) Af Amer 68 Est GFR (MDRD) Non-Af 56 L BUN/Creatinine Ratio 7.5 L Glucose 126 H Calcium 8.6 Total Bilirubin 0.70 Direct Bilirubin 0.32 H AST 12 L ALT 15 L Alkaline Phosphatase 136 H Total Protein 6.8 Albumin 2.9 L Globulin 3.9 Lipase 34 Urine Color Yellow Urine Clarity Sl. Cloudy Urine pH 6.0 Ur Specific [place] 1.015 Urine Protein 30 H Urine Glucose (UA) Normal Urine Ketones 5 H Urine Occult Blood 10 H Urine Nitrite Negative Urine Bilirubin 1 H Urine Urobilinogen 1 H Ur Leukocyte Esterase 500 H Urine RBC 0-5 SEEN Urine WBC >100 SEEN Ur Squamous Epith Cells 5-10 SEEN Ur Transition Epith Cell 5-10 SEEN Urine Bacteria 3+ Urine Mucus 0 SEEN Radiography Diagnostic Testing: Clinical Impression(s) from Imaging Studies Abdomen/Pelvis CT 07/10/24 11:24 IMPRESSION: Findings suggest very mild degree of colitis of the rectosigmoid colon. Fatty infiltration of the liver. Status post cholecystectomy. 3.2 mm calculus in the distal portion of the left ureter just proximal to the ureterovesical junction. Electronically Signed: Davon Pena MD at 12:35 EDT , Discharge Plan Triage Chief Complaint: General Illness ED Provider: Florencio Bull Dx/Rx/DC Orders Clinical Impression: Colitis, Diarrhea, Acute hypokalemia Instructions: ED Understanding Colitis, ED Diarrhea, Unknown Cause Prescriptions: New amoxicillin-pot clavulanate 875-125 mg tablet 875 mg PO Q12H Qty: 14 0RF potassium chloride 20 mEq tablet extended release 40 meq PO DAILY Qty: 10 0RF No Action metformin 500 MG tablet 1,000 mg PO BIDCM Patient Comments: 2 TAB IN AM, 2 TAB AFTERNOON, 1 TAB HS clonidine HCl 0.1 MG tablet 0.1 mg PO BID atorvastatin 20 MG tablet 20 mg PO QODAY potassium chloride [Klor-Con 10] 10 MEQ tablet extended release 10 meq PO BID allopurinol 100 MG tablet 200 mg PO DAILYCM gabapentin 300 MG capsule 600 mg PO QHS aspirin 81 MG tablet,chewable 81 mg PO DAILY@0800 hydrochlorothiazide 25 MG tablet 25 mg PO DAILY lisinopril 40 MG tablet 40 mg PO DAILY duloxetine 60 MG capsule 60 mg PO DAILY Lantus Solostar U-100 Insulin 100 UNITS/ML insulin pen 32 units subcut QHS metoprolol tartrate 100 mg tablet 100 mg PO BID Patient Comments: TAKE 1 TABLET BY MOUTH TWICE DAILY amlodipine 5 mg tablet 5 mg PO DAILY Patient Comments: TAKE 1 TABLET BY MOUTH ONCE DAILY acetaminophen 500 mg Tablet 1,000 mg PO BID PRN (Reason: Pain) tamsulosin 0.4 mg capsule 0.8 mg PO DAILY Patient Comments: TAKE 2 CAPSULES BY MOUTH ONCE DAILY warfarin 5 mg tablet 7.5 mg PO SANTAMARIA Patient Comments: TAKE 1 TABLET BY MOUTH ONCE DAILY warfarin 5 mg tablet 5 mg PO MOTUWETHFRSA Patient Comments: TAKE 1 TABLET BY MOUTH ONCE DAILY magnesium oxide 400 mg magnesium tablet 400 mg PO BID Patient Comments: TAKE 1 TABLET BY MOUTH TWICE DAILY Primary Care Provider: Dee Chawla Referrals: Dee Chawla MD [Primary Care Provider] - 5-7 Days Activity Restrictions/Additional Instructions: Your INR today is 2.4. Being on antibiotics can cause this number to change significantly. I would recommend a repeat INR at the beginning of next week. Please advance your diet. Your potassium was slightly low at 3 which is not uncommon given your symptoms. I have wrote for some potassium supplementation over the next several days. Print Language: Korean Disposition Disposition: Home, Self Care Discharge Date/Time: 07/10/24 13:41
[2024-07-10] MEDS: 0.9% Normal Saline (1000mL) 1,000 ML 999 ML IV (10:33)
[2024-07-10 10:36] VITALS: BMI 34.5
[2024-07-10 10:38] LABS: Absolute Lymphocyte Count 1.08 X10^3/uL (0.83-4.51); Absolute Neutrophil Count 4.2 X10^3/uL (2.0-7.7); Basophil# 0.07 X10^3/uL; Basophil% 1.2 % (0-1); Eosinophil# 0.07 X10^3/uL; Eosinophils% 1.2 % (0-5); Hematocrit 41.9 % (40-54); Hemoglobin 13.9 g/dL (13.0-16.5); Lymphocyte # 1.08 X10^3/ul (0.83-4.51); Lymphocyte % 18.8 % (19-41); Mean Corp Hgb Conc 33.2 g/dL (32-36); Mean Corpuscular Volume 84.3 fL (80-94); Mean Platelet Vol. 11.6 fl (6.2-12.0); Monocyte# 0.32 X10^3/uL; Monocyte% 5.6 % (0-10); NRBC Flagged by Analyzer 0 % (0-5); Neutrophil # 4.21 X10^3/uL (2.7-7.7); Platelet Count 166 K/mm3 (150-450); RBC Distribution Width CV 15.6 % (11.6-14.6); RBC Distribution Width SD 46.5 fl (35.1-43.9); Red Blood Count 4.97 M/mm3 (4.6-6.2); White Blood Count 5.8 K/mm3 (4.4-11.0)
[2024-07-10 10:39] LABS: Mucous, Urine 0 SEEN /hpf (<or=2+)
[2024-07-10 10:43] LABS: Color, Urine Yellow (Yellow); Glucose, Dipstick Normal (Normal); Ketone-Dipstick 5 mg/dl (Negative); Leukocyte Esterase-Dipstick 500 /ul (Negative); Nitrite-Dipstick Negative (Negative); Occult Blood-Urine 10 /ul (Negative); Protein-Dipstick 30 mg/dl (Negative); Specific Gravity, Urine 1.015 (1.002-1.030); Urine Clarity Sl. Cloudy (Clear); Urine Urobilinogen 1 mg/dl (Normal)
[2024-07-10 10:47] LABS: International Normalized Ratio 2.4; Prothrombin Time (Protime)PT. 26.4 SECONDS (11.7-14.9)
[2024-07-10 10:52] LABS: AST(SGOT) 12 U/L (15-37); Alanine Aminotransfer ALT/SGPT 15 U/L (16-61); Albumin, Serum 2.9 g/dL (3.2-5.0); Alkaline Phosphatase 136 U/L (45-117); Anion Gap 9 (5-15); BUN 10 mg/dL (7-18); BUN/Creat Ratio 7.5 RATIO (10-20); Bilirubin, Direct 0.32 mg/dL (0.00-0.30); Calcium,Total 8.6 mg/dL (8.5-10.1); Chloride 107 mmol/L (98-107); Creatinine, Serum 1.33 mg/dL (0.70-1.30); EST Glomerular Filtration Rate 56 mL/min (>60); Est Glom Filt Rate - Afr Amer 68 mL/min (>60); Globulin 3.9 g/dL (2.2-4.2); Glucose 126 mg/dL (74-106); Lipase 34 U/L (13-75); Protein, Total 6.8 g/dL (6.4-8.2); Sodium Level 140 mmol/L (136-145)
[2024-07-10 10:54] LABS: Squamous Epithelial Cells - UA 5-10 SEEN /hpf (0-5); Transitional Epithelial - Ur 5-10 SEEN /hpf (0-5); White Blood Cells >100 SEEN /hpf (0-5)
[2024-07-10 10:55] LABS: Bacteria 3+ /hpf (None Seen); Red Blood Cells-Urine 0-5 SEEN /hpf (0-5); Urine Bilirubin Dipstick 1 mg/dL (Negative)
[2024-07-10 11:14] VITALS: BP 139/91; PULSE 80; RESP 18; O2SAT 95
--- NOTE | 2024-07-10 11:24 | CT_ITS ---
STUDY: CT ABDOMEN AND PELVIS WITH CONTRAST REASON FOR EXAM: Male, 74 years old. Colitis abdominal pain. Chills and diarrhea. RADIATION DOSAGE (If Supplied By Facility): CTDIvol = ( 18.90 ) mGy, DLP = ( 1180.87 ) mGycm TECHNIQUE: Transaxial images were obtained from the dome of the diaphragm to the symphysis pubis without oral contrast. IV 100mL Isovue-300 was administered. Sagittal and coronal images were reconstructed. Individualized dose optimization techniques were used for this CT. COMPARISON: Comparison is made with prior study of June 09, 2021. FINDINGS: Increased markings at the left lung base suggestive of either linear atelectasis and/or scarring. Coronary artery calcification. Dual-chamber pacemaker is seen. There is decreased attenuation of the liver consistent with steatosis. The patient is status post cholecystectomy. Normal spleen. Normal pancreas. Normal bilateral adrenal glands. Normal right kidney. There is a 3.6 cm x 4.2 cm cyst in the anterior upper pole of the left kidney. There is a 3.2 mm calculus in the distal portion of the left ureter just proximal to the ureterovesical junction. Normal visualized stomach. Normal small intestine. There are scattered colonic diverticula consistent with diverticulosis. Mild degree of the mucosal thickening of the rectosigmoid colon suggestive of a mild degree of colitis. The appendix is visualized and appears normal. There is diffuse atherosclerotic calcification of the abdominal aorta and its major visceral branches, without a demonstrated aneurysm. Normal inferior vena cava. Normal retroperitoneum. Normal urinary bladder. Mild enlargement of the prostate with indentation of the bladder base. Normal abdominal wall. There are mild degenerative changes of the visualized lumbar spine. Minimal anterolisthesis of L5 on S1 without spondylolysis. CT/Abdomen/Pelvis W IV Cont ONLY IMPRESSION: Findings suggest very mild degree of colitis of the rectosigmoid colon. Fatty infiltration of the liver. Status post cholecystectomy. 3.2 mm calculus in the distal portion of the left ureter just proximal to the ureterovesical junction. Electronically Signed: Davon Pena MD at 12:35 EDT ,
[2024-07-10 13:39] VITALS: BP 137/90; PULSE 82; RESP 16; TEMP 36.6; O2SAT 97
== END 2024-07-10 13:41 | disposition home or self-care (01) ==
PROVIDERS: Emergency Provider Emergency Medicine; PCP Internal Medicine; Visit Provider Emergency Medicine
DX: K52.9 Noninfective gastroenteritis and colitis, unspecified (principal); I48.91 Unspecified atrial fibrillation; E11.40 Type 2 diabetes mellitus with diabetic neuropathy, unspecified; Z79.4 Long term (current) use of insulin; R35.0 Frequency of micturition; I10 Essential (primary) hypertension; E87.6 Hypokalemia; E78.5 Hyperlipidemia, unspecified; Z79.82 Long term (current) use of aspirin; Z79.01 Long term (current) use of anticoagulants; Z79.899 Other long term (current) drug therapy; Z87.891 Personal history of nicotine dependence
CPT/HCPCS: 74177; 80048; 80076; 81001; 83690; 85025; 85610; 96360; 96361; 99283; J7030; Q9967; A4216

== ENCOUNTER 2024-10-09 14:00 | Inpatient (IN) | payer MEDICARE, SELFPAY ==
[2024-10-09 14:01] VITALS: BP 113/101; PULSE 69; RESP 15; TEMP 35.5; O2SAT 95
--- NOTE | 2024-10-09 14:36 | EKG12_ITS ---
Test Reason : Blood Pressure : */* mmHG Vent. Rate : 70 BPM Atrial Rate : 70 BPM P-R Int : * ms QRS Dur : 200 ms QT Int : 510 ms P-R-T Axes : * -79 94 degrees QTcB Int : 550 ms Ventricular-paced rhythm with occasional AV dual-paced complexes Abnormal ECG Confirmed by ALMA DELIA IBANEZ, MICAELA ([id number]), editorial director EDUARDO DERAS ([id number]) on 10/13/2024 6:05:10 AM Referred By: JORDAN Confirmed By: MICAELA FLANNERY MD
--- NOTE | 2024-10-09 14:50 | EX.ED.DYSGE1 ---
HPI <ADRIENNE Christianson - Last Filed: 10/09/24 18:34> History of Present Illness Chief Complaint: General Illness Narrative Narrative: Patient is a 74-year-old male with history of paroxysmal atrial fibrillation on Coumadin, hyperlipidemia, diabetes who presents to the emergency department for ongoing fatigue. Per the patient, he has not been doing well for 2 months. Patient states he has had more recent falls, his states that he cannot do anything on his own, he cannot dress himself. He was at his PCPs office today who referred him to the emergency department for further workup. PFS <ADRIENNE Christianson - Last Filed: 10/09/24 18:34> [facility] Medical History Injury of head and neck Cancer Hepatitis Former smoker CPAP (continuous positive airway pressure) dependence Sleep apnea Atrial fibrillation ICD (implantable cardioverter-defibrillator) in place Pacemaker Hypertension Acute calculous cholecystitis Hyperlipemia Diabetic neuropathy HTN (hypertension) Diabetes Home Medications ?Medication ?Instructions ?Recorded ?Last Taken ?Type allopurinol 100 mg tablet 200 mg PO DAILYCM GOUT 05/12/14 10/09/24 History aspirin 81 mg chewable tablet 81 mg PO DAILY@0800 HEALTH 05/12/14 10/08/24 History atorvastatin 20 mg tablet 20 mg PO QODAY CHOLESTEROL 05/12/14 10/07/24 History duloxetine 60 mg capsule,delayed 60 mg PO DAILY MOOD 05/12/14 10/09/24 History release hydrochlorothiazide 25 mg tablet 25 mg PO DAILY BP 05/12/14 10/09/24 History insulin glargine 100 unit/mL (3 24 units subcut QHS DM 05/12/14 06/07/21 History mL) subcutaneous pen (Lantus Solostar U-100 Insulin) lisinopril 40 mg tablet 40 mg PO DAILY BP 05/12/14 10/09/24 History potassium chloride 10 mEq 10 meq PO BID SUPPLEMENT 05/12/14 10/09/24 History tablet,extended release (Klor-Con) acetaminophen 500 mg tablet 1,000 mg PO BID PRN Pain 06/09/21 06/09/21 07:00 History amlodipine 5 mg tablet 5 mg PO DAILY BP 06/09/21 10/09/24 History magnesium oxide 400 mg PO BID SUPPLEMENT 06/09/21 10/09/24 History metoprolol tartrate 100 mg tablet 100 mg PO BID HEART 06/09/21 10/09/24 History tamsulosin 0.4 mg capsule 0.8 mg PO DAILY PROSTATE 06/09/21 10/08/24 History warfarin 5 mg tablet 5 mg PO MOTUWETH BLOODTHINNER 06/09/21 10/09/24 History apremilast 30 mg tablet (Otezla) 30 mg PO DAILY ARTHRITIS 10/09/24 10/08/24 History bupropion HCl 150 mg 24 hr tablet, 150 mg PO DAILY MOOD 10/09/24 10/09/24 History extended release clobetasol 0.05 % scalp solution See Rx Instructions topical 10/09/24 10/08/24 History .COMPLEX SCALP gabapentin 600 mg tablet 600 mg PO QHS PAIN 10/09/24 10/08/24 History warfarin 2.5 mg tablet 2.5 mg PO SUFRSA BLOOD THNNER 10/09/24 10/03/24 History Allergy/AdvReac Type Severity Reaction Status Date / Time No Known Allergies Allergy Verified 10/09/24 14:01 Surgical History Status post laparoscopic cholecystectomy (~06/2021) Social History (Updated 10/09/24 @ 16:25 by Samia Veronica) household members: spouse housing: house Smoking Status: Former smoker ROS <Luis Brown NP-[place] - Last Filed: 10/09/24 18:34> ROS ED ROS Narrative Constitutional: Negative for fever, chills, weight loss. Positive for weakness Eyes: Negative for vision loss, vision change, double vision ENT: Negative for any sore throat, ear pain, congestion Cardiovascular: Negative for any chest pain, tightness, palpitations Respiratory: Negative for any cough, sputum production, hemoptysis, dyspnea, dyspnea on exertion, orthopnea Gastrointestinal: Negative for any nausea, vomiting, diarrhea, constipation, blood in stool, blood in vomit. Positive for chronic epigastric pain : Negative for any urinary frequency, dysuria, retention, blood in urine Muscle skeletal: Negative for any neck pain, back pain Neurological: Negative for any headache, syncope, dizziness Skin: Negative for any rashes, itching, abrasions, lacerations Psychiatric: Negative for any depression, anxiety, stress, suicidal ideation, homicidal ideation Hematologic: Negative for any excessive bruising, easy bleeding EXAM <ADRIENNE Christianson - Last Filed: 10/09/24 18:34> Physical Exam Narrative Exam Narrative: Vital signs reviewed. Patient does look worn out, he does look tired appearing. Slightly pale HEET: Head normocephalic atraumatic, TMs clear bilaterally. Posterior pharynx is clear, dry mucous membranes. Nares clear bilaterally. Neck: Supple with no lymphadenopathy or tenderness. No signs of meningismus. Cardiac: Regular rate and rhythm no murmurs gallops or rubs, equal peripheral pulses bilaterally. Respiratory: Lungs clear to auscultation bilaterally. No chest tenderness. Abdomen: Soft, nontender, nondistended. No abdominal bruit or pulsatile masses. No hepatosplenomegaly Extremities: No peripheral edema, no signs of gross trauma or deformity. Active full range of motion of all extremities. Neuro: Cranial nerves II through XII intact, no focal neurological deficits. Skin: Clean dry and intact with no rash, purpura, petechiae, vesicles or pustules. Skin is pale Backs/flank: No CVA tenderness, no midline spinal tenderness, no deformity. Psych: Normal mood and affect. No SI, HI or acute psychosis. Const Vital Signs: 10/09/24 14:10/09/24 16:10/09/24 18:27 Temperature 96 F L Temperature Source Temporal Pulse Rate 69 70 Respiratory Rate 15 16 Respiratory Effort Normal Non-Labored Respiratory Pattern Normal Blood Pressure 113/101 H 155/96 H Blood Pressure Mean 105 115 Pulse Ox 95 95 Oxygen Delivery Method Room Air <Dr. Alirzea De La O MD - Last Filed: 10/09/24 23:00> Physical Exam Const Vital Signs: 10/09/24 14:10/09/24 16:25 10/09/24 18:27 Temperature 96 F L Temperature Source Temporal Pulse Rate 69 70 Respiratory Rate 15 16 Respiratory Effort Normal Non-Labored Respiratory Pattern Normal Blood Pressure 113/101 H 155/96 H Blood Pressure Mean 105 115 Pulse Ox 95 95 Oxygen Delivery Method Room Air MDM <ADRIENNE Christianson - Last Filed: 10/09/24 18:34> [facility] Lab Data Labs: Laboratory Results - last 24 hr 10/09/24 10/09/24 10/09/24 15:02 16:28 17:03 WBC RBC Hgb Hct MCV MCH MCHC RDW Std Deviation RDW Coeff of Montrell Plt Count MPV Immature Gran % (Auto) Neut % (Auto) Lymph % (Auto) Harlan % (Auto) Eos % (Auto) Baso % (Auto) Absolute Neuts (auto) Absolute Lymphs (auto) Nucleated RBC % Platelet Estimate Plt Morphology Comment Anisocytosis PT 18.8 H INR 1.5 Sodium Potassium Chloride Carbon Dioxide Anion Gap BUN Creatinine Estim Creat Clear Calc Est GFR (MDRD) Af Amer Est GFR (MDRD) Non-Af BUN/Creatinine Ratio Glucose Lactic Acid 1.8 Calcium Total Bilirubin AST ALT Alkaline Phosphatase Troponin I High Sens B-Natriuretic Peptide Total Protein Albumin Globulin Albumin/Globulin Ratio Lipase TSH Urine Color Reny Urine Clarity Cloudy Urine pH 7.0 Ur Specific Soper 1.010 Urine Protein 30 H Urine Glucose (UA) Normal Urine Ketones 5 H Urine Occult Blood 10 H Urine Nitrite Positive H Urine Bilirubin 1 H Urine Urobilinogen Normal Ur Leukocyte Esterase 500 H Urine RBC 0-5 SEEN Urine WBC 25-50 SEEN Ur Squamous Epith Cells 0 SEEN Ur Transition Epith Cell 0-5 SEEN Urine Bacteria 4+ WBC Casts 0-5 SEEN Urine Mucus 0 SEEN 10/09/24 17:22 WBC 4.7 RBC 4.43 L Hgb 12.2 L Hct 37.1 L MCV 83.7 MCH 27.5 MCHC 32.9 RDW Std Deviation 47.9 H RDW Coeff of Montrell 15.7 H Plt Count 85 L MPV 11.7 Immature Gran % (Auto) 0.200 Neut % (Auto) 70.2 H Lymph % (Auto) 20.9 Harlan % (Auto) 6.0 Eos % (Auto) 2.1 Baso % (Auto) 0.6 Absolute Neuts (auto) 3.3 Absolute Lymphs (auto) 0.98 Nucleated RBC % 0 Platelet Estimate SLT DEC Plt Morphology Comment LARGE Anisocytosis 1+ PT INR Sodium 136 Potassium 4.0 Chloride 104 Carbon Dioxide 27.0 Anion Gap 5 BUN 10 Creatinine 1.43 H Estim Creat Clear Calc 52.56 Est GFR (MDRD) Af Amer 62 Est GFR (MDRD) Non-Af 51 L BUN/Creatinine Ratio 7.0 L Glucose 101 Lactic Acid Calcium 8.7 Total Bilirubin 0.70 AST 16 ALT 19 Alkaline Phosphatase 134 H Troponin I High Sens 14 B-Natriuretic Peptide 118.2 H Total Protein 6.3 L Albumin 2.8 L Globulin 3.5 Albumin/Globulin Ratio 0.8 L Lipase 18 TSH 1.250 Urine Color Urine Clarity Urine pH Ur Specific Soper Urine Protein Urine Glucose (UA) Urine Ketones Urine Occult Blood Urine Nitrite Urine Bilirubin Urine Urobilinogen Ur Leukocyte Esterase Urine RBC Urine WBC Ur Squamous Epith Cells Ur Transition Epith Cell Urine Bacteria WBC Casts Urine Mucus Radiography Diagnostic Testing: Clinical Impression(s) from Imaging Studies Chest X-Ray 10/09/24 15:09 IMPRESSION: Examination somewhat limited by patient motion. No acute pneumonic process is clearly evident. No pleural effusion or pneumothorax is seen. Left thoracic transvenous pacemaker/AICD device with leads appears stable. The cardiomediastinal silhouette is unchanged, with a somewhat calcified and tortuous aorta noted. No evidence of cardiomegaly. Old left mid clavicular fracture, with associated deformity. No interval osseous change is seen. Reading Location: [address] 10/09/24 15:53 IMPRESSION: 1. No acute intracranial process is seen. 2. Additional findings as noted. One or more dose reduction techniques were used (e.g., Automated exposure control, adjustment of the mA and/or kV according to patient size, use of iterative reconstruction technique). Reading Location: [address] Treatment and Re-Evaluation :: Differential diagnosis includes however is not limited to: Electrolyte abnormality, failure to thrive, depression, AMOL, dehydration, anemia patient appears generally well, vital signs are stable, patient is nontoxic-appearing. Presenting to the emergency department for complaints of generalized weakness, weight loss. Patient does appear tired however physical examination does not reveal any red flag signs. Patient is alert and orient x 4. Neurologically the patient is intact. Patient will see basic laboratory values including PT/INR, TSH. Chest x-ray to be obtained, patient states he does have a cough, chest x-ray will be obtained as well as a COVID-19 influenza RSV swab. Urinalysis will be checked to ensure there is no UTI. All radiologic examinations were read, reviewed by the emergency department attending. From these reads, a plan of care will be put in place. There was some discrepancy with the laboratory values, it was difficulty finding the lab. However patient's laboratory values shows a normal CBC, slight anemia with a hemoglobin 12.2, patient's INR is 1.5, slightly subtherapeutic. Patient's chemistries do show a creatinine of 1.43, this is as high as it been in the last several years. The patient in June was 1.33, patient's troponin was negative. TSH was normal. BNP was only slightly elevated 118. Patient's urinalysis was grossly infected, this was sent for a culture. 4+ bacteria 25-50 white blood cells, 500 leuks, positive nitrites. Sent for culture, IV Rocephin given. Patient had 1 episode of vomiting, IV Zofran was given. CT scan of the brain as well as a chest x-ray was negative. Secondary the patient's fatigue, weakness, falls at home as well as not doing well at home, I do believe the patient needs admitted the hospital. Spoke with hospitalist. Patient stable for admission. <Dr. Alireza De La O MD - Last Filed: 10/09/24 23:00> [facility] MDM Narrative Medical decision making narrative: I have personally performed a face to face assessment of the patient and have reviewed the ALISA Note. I performed a substantive portion of the visit including all aspects of the following. My freeman findings include: History is 74-year-old male lives at home with his has been generally weak and fatigued for 3-4 months, very poor appetite and food intake, but drinking fluids well, 20 pound weight loss in that period time, and according to the 20 pound weight loss in the couple months prior to that. He denies any other focal symptoms or pains or focal neurologic symptoms. Able to stand but fatigues very easily with very little ambulation [id number] within their home. Seen at primary care in follow-up and referred here to the ER but is not aware of directive to be admitted Exam is neurologically intact, nonfocal neurologic exam, alert and oriented x 3, lungs clear, heart regular, no dyspnea or distress, abdomen soft nontender nondistended. Medical Decison Making suspect patient is to be admitted. We will obtain workup ruling out acute cardiopulmonary etiology, infections, metabolic derangement, or symptomatic anemia to the best of our ability. 1 view chest x-ray on my interpretation shows no pneumonia. CTA of the head on my interpretation shows no acute hemorrhage, radiology in agreement I read the report and agree with it. I spoke with CADDY/CADDIE SUPERVISOR lyn, who saw the patient in the office. The reason they sent him to the emergency department was because he has been leaning to the left and has been noticing this for the past 1.5-2 months, ever since he had a CT at [facility] that was unremarkable, as well as some occasional word searching/disorientation. There was concern that he was having an acute stroke. Therefore, we felt performing a repeat CT was indicated; as above, that is unremarkable showing no new infarcts. However we did find a UTI, and given his generalized weakness, we think admission is reasonable and warranted. Other additions or changes: [None] Lab Data Labs: Laboratory Results - last 24 hr 10/09/24 10/09/24 10/09/24 15:02 16:28 17:03 WBC RBC Hgb Hct MCV MCH MCHC RDW Std Deviation RDW Coeff of Montrell Plt Count MPV Immature Gran % (Auto) Neut % (Auto) Lymph % (Auto) Harlan % (Auto) Eos % (Auto) Baso % (Auto) Absolute Neuts (auto) Absolute Lymphs (auto) Nucleated RBC % Platelet Estimate Plt Morphology Comment Anisocytosis PT 18.8 H INR 1.5 Sodium Potassium Chloride Carbon Dioxide Anion Gap BUN Creatinine Estim Creat Clear Calc Est GFR (MDRD) Af Amer Est GFR (MDRD) Non-Af BUN/Creatinine Ratio Glucose Lactic Acid 1.8 Calcium Total Bilirubin AST ALT Alkaline Phosphatase Troponin I High Sens B-Natriuretic Peptide Total Protein Albumin Globulin Albumin/Globulin Ratio Lipase TSH Urine Color Reny Urine Clarity Cloudy Urine pH 7.0 Ur Specific Soper 1.010 Urine Protein 30 H Urine Glucose (UA) Normal Urine Ketones 5 H Urine Occult Blood 10 H Urine Nitrite Positive H Urine Bilirubin 1 H Urine Urobilinogen Normal Ur Leukocyte Esterase 500 H Urine RBC 0-5 SEEN Urine WBC 25-50 SEEN Ur Squamous Epith Cells 0 SEEN Ur Transition Epith Cell 0-5 SEEN Urine Bacteria 4+ WBC Casts 0-5 SEEN Urine Mucus 0 SEEN 10/09/24 17:22 WBC 4.7 RBC 4.43 L Hgb 12.2 L Hct 37.1 L MCV 83.7 MCH 27.5 MCHC 32.9 RDW Std Deviation 47.9 H RDW Coeff of Montrell 15.7 H Plt Count 85 L MPV 11.7 Immature Gran % (Auto) 0.200 Neut % (Auto) 70.2 H Lymph % (Auto) 20.9 Harlan % (Auto) 6.0 Eos % (Auto) 2.1 Baso % (Auto) 0.6 Absolute Neuts (auto) 3.3 Absolute Lymphs (auto) 0.98 Nucleated RBC % 0 Platelet Estimate SLT DEC Plt Morphology Comment LARGE Anisocytosis 1+ PT INR Sodium 136 Potassium 4.0 Chloride 104 Carbon Dioxide 27.0 Anion Gap 5 BUN 10 Creatinine 1.43 H Estim Creat Clear Calc 52.56 Est GFR (MDRD) Af Amer 62 Est GFR (MDRD) Non-Af 51 L BUN/Creatinine Ratio 7.0 L Glucose 101 Lactic Acid Calcium 8.7 Total Bilirubin 0.70 AST 16 ALT 19 Alkaline Phosphatase 134 H Troponin I High Sens 14 B-Natriuretic Peptide 118.2 H Total Protein 6.3 L Albumin 2.8 L Globulin 3.5 Albumin/Globulin Ratio 0.8 L Lipase 18 TSH 1.250 Urine Color Urine Clarity Urine pH Ur Specific Soper Urine Protein Urine Glucose (UA) Urine Ketones Urine Occult Blood Urine Nitrite Urine Bilirubin Urine Urobilinogen Ur Leukocyte Esterase Urine RBC Urine WBC Ur Squamous Epith Cells Ur Transition Epith Cell Urine Bacteria WBC Casts Urine Mucus Radiography Diagnostic Testing: Clinical Impression(s) from Imaging Studies Chest X-Ray 10/09/24 15:09 IMPRESSION: Examination somewhat limited by patient motion. No acute pneumonic process is clearly evident. No pleural effusion or pneumothorax is seen. Left thoracic transvenous pacemaker/AICD device with leads appears stable. The cardiomediastinal silhouette is unchanged, with a somewhat calcified and tortuous aorta noted. No evidence of cardiomegaly. Old left mid clavicular fracture, with associated deformity. No interval osseous change is seen. Reading Location: [id number] Brain CT 10/09/24 15:53 IMPRESSION: 1. No acute intracranial process is seen. 2. Additional findings as noted. One or more dose reduction techniques were used (e.g., Automated exposure control, adjustment of the mA and/or kV according to patient size, use of iterative reconstruction technique). Reading Location: [id number] Rhythm Strip Rhythm Strip: afib, vent paced Rate: 70 Ectopy: None EKG Initial EKG: Attestation: I personally reviewed and interpreted this EKG as follows: Comments: Underlying A-fib with ventricular pacing no acute injury pattern Discharge Plan Dx/Rx/DC Orders Clinical Impression: Weakness, Acute UTI, Acute metabolic encephalopathy Disposition Disposition: Acute Care Hospital [facility] Discharge Date/Time: 10/09/24 20:04
--- NOTE | 2024-10-09 15:09 | RAD_ITS ---
PROCEDURE: CHEST 1 VIEW (PORTABLE) REASON FOR EXAM: Cough. TECHNIQUE: AP portable upright chest. COMPARISON: Chest x-ray of 02/25/2024. RAD/Chest 1 View (Portable) IMPRESSION: Examination somewhat limited by patient motion. No acute pneumonic process is clearly evident. No pleural effusion or pneumothorax is seen. Left thoracic transvenous pacemaker/AICD device with leads appears stable. The cardiomediastinal silhouette is unchanged, with a somewhat calcified and to rtuous aorta noted. No evidence of cardiomegaly. Old left mid clavicular fracture, with associated deformity. No interval osseous change is seen. Reading Location: [id number]
[2024-10-09 15:23] LABS: International Normalized Ratio 1.5; Prothrombin Time (Protime)PT. 18.8 SECONDS (11.7-14.9)
--- NOTE | 2024-10-09 15:53 | CT_ITS ---
PROCEDURE: BRAIN/HEAD WITHOUT CONTRAST REASON FOR EXAM: Weakness, nausea and vomiting, and weight loss for several weeks/months not feeling well. TECHNIQUE: CT head without contrast, with sagittal and coronal reconstructed images COMPARISON: None. FINDINGS: Bilateral orbital postsurgical changes are seen. No acute orbital process is noted. The paranasal sinuses appear clear, as do the mastoid air cells. No acute osseous process is seen. No intracranial hemorrhage, mass, or mass effect is noted. The ventricles appear symmetric and within the normal range for age. A hypodensity of the left basal ganglia, likely represents a chronic lacunar infarction. Bilateral cerebral white matter hypodensities, predominantly periventricular, are most consistent with chronic ischemic changes of small-vessel disease. CT/Brain/Head without Contrast IMPRESSION: 1. No acute intracranial process is seen. 2. Additional findings as noted. One or more dose reduction techniques were used (e.g., Automated exposure contr ol, adjustment of the mA and/or kV according to patient size, use of iterative reconstruction technique). Reading Location: [id number]
[2024-10-09 16:35] LABS: Mucous, Urine 0 SEEN /hpf (<or=2+); Squamous Epithelial Cells - UA 0 SEEN /hpf (0-5)
[2024-10-09 16:44] LABS: Color, Urine Amber (Yellow); Glucose, Dipstick Normal (Normal); Ketone-Dipstick 5 mg/dl (Negative); Leukocyte Esterase-Dipstick 500 /ul (Negative); Nitrite-Dipstick Positive (Negative); Occult Blood-Urine 10 /ul (Negative); Protein-Dipstick 30 mg/dl (Negative); Urine Clarity Cloudy (Clear); Urine Urobilinogen Normal (Normal)
[2024-10-09 16:57] LABS: Urine Bilirubin Dipstick 1 mg/dL (Negative)
[2024-10-09 16:59] LABS: Bacteria 4+ /hpf (None Seen); Red Blood Cells-Urine 0-5 SEEN /hpf (0-5); Transitional Epithelial - Ur 0-5 SEEN /hpf (0-5); White Blood Cells 25-50 SEEN /hpf (0-5); White Cell Cast 0-5 SEEN /lpf (None Seen)
[2024-10-09 17:39] LABS: Absolute Lymphocyte Count 0.98 X10^3/uL (0.83-4.51); Absolute Neutrophil Count 3.3 X10^3/uL (2.0-7.7); Basophil# 0.03 X10^3/uL; Basophil% 0.6 % (0-1); Eosinophils% 2.1 % (0-5); Hematocrit 37.1 % (40-54); Hemoglobin 12.2 g/dL (13.0-16.5); Lymphocyte # 0.98 X10^3/ul (0.83-4.51); Lymphocyte % 20.9 % (19-41); Mean Corp Hgb Conc 32.9 g/dL (32-36); Mean Corpuscular Hgb 27.5 pg (27.0-32.0); Mean Corpuscular Volume 83.7 fL (80-94); Mean Platelet Vol. 11.7 fl (6.2-12.0); Monocyte# 0.28 X10^3/uL; NRBC Flagged by Analyzer 0 % (0-5); Neutrophil # 3.29 X10^3/uL (2.7-7.7); Neutrophil % 70.2 % (47-70); POSITIVE COUNT YES; Platelet Count 85 K/mm3 (150-450); RBC Distribution Width CV 15.7 % (11.6-14.6); RBC Distribution Width SD 47.9 fl (35.1-43.9); Red Blood Count 4.43 M/mm3 (4.6-6.2); White Blood Count 4.7 K/mm3 (4.4-11.0)
[2024-10-09 17:44] LABS: Differential Indicated SCAN CRITERIA MET
[2024-10-09 17:44] LABS: Lactic Acid 1.8 mmol/L (0.4-1.9)
[2024-10-09] MEDS: Ceftriaxone 1 GM/50 ML BAG IV (17:48)
[2024-10-09 17:49] VITALS: BMI 32.2
[2024-10-09 17:58] LABS: BNP,B-Type NATRIURETIC PEPTIDE 118.2 pg/mL (0-100)
[2024-10-09 18:02] LABS: ALB/GLOB Ratio 0.8 RATIO (0.9-2.4); AST(SGOT) 16 U/L (15-37); Alanine Aminotransfer ALT/SGPT 19 U/L (16-61); Albumin, Serum 2.8 g/dL (3.2-5.0); Alkaline Phosphatase 134 U/L (45-117); Anion Gap 5 (5-15); BUN 10 mg/dL (7-18); Calcium,Total 8.7 mg/dL (8.5-10.1); Chloride 104 mmol/L (98-107); Creatinine, Serum 1.43 mg/dL (0.70-1.30); EST Glomerular Filtration Rate 51 mL/min (>60); Est Glom Filt Rate - Afr Amer 62 mL/min (>60); Estimated Creatinine Clearance 52.56 ml/min; Globulin 3.5 g/dL (2.2-4.2); Glucose 101 mg/dL (74-106); Lipase 18 U/L (13-75); Protein, Total 6.3 g/dL (6.4-8.2); Sodium Level 136 mmol/L (136-145); Troponin-I HS 14 pg/mL (3.0-78.0)
--- NOTE | 2024-10-09 18:23 | PCM.HP.STD ---
HPI - General General Date of Admission: 10/09/24 Date of Service: 10/09/24 Chief Complaint: Worsening fatigue with weakness and falls HPI Narrative YAZAN LOPEZ, is a 74 M who presented to [facility] ED on 10/09/2024 with worsening fatigue with weakness and falls at home. 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 Notes that for the past few months he has developed worsening weakness, and he has now had a few small falls at home. States he can hardly do anything for himself, and his is having more difficulty with helping him. He cannot even dress himself at this point. He went to his PCP office today who then referred him to the ED for further evaluation. In the ED he was hemodynamically stable on room air at rest. Labs were fairly unremarkable. UA did show 500 leukocyte esterase, positive nitrites, 4+ bacteria. Patient denies any UTI symptoms but does report significant difficulty with emptying his bladder due to prostate issues. States that the Flomax that he takes at home has been somewhat helpful for this. Denies any fevers or chills. Given his UTI and significant weakness, hospitalist was contacted for admission. I saw the patient at bedside in the ED. Patient was sitting up comfortably in bed, conversing normally, in no acute distress. He was sharp mentally with conversation. Notes that he has simply felt progressively more weak and debilitated over the past few months. Notes worsening general bilateral leg weakness and is unable to walk at this point. He does have a walker and wheelchair at home and has been using the wheelchair recently to get around. He states that he was not using either of these things until 3 months ago or so. Reports generalized hip pain that he attributes to arthritis, denies any new pain or discomfort. He also reports poor appetite over the past few months and states he has lost 20 to 30 pounds. 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 Former tobacco user but quit many years ago as well. Denies any other drug use. Denies any recent changes to medications that he is aware of. No other acute concerns this time. [facility] Medical History Injury of head and neck Cancer Hepatitis Former smoker CPAP (continuous positive airway pressure) dependence Sleep apnea Atrial fibrillation ICD (implantable cardioverter-defibrillator) in place Pacemaker Hypertension Acute calculous cholecystitis Hyperlipemia Diabetic neuropathy HTN (hypertension) Diabetes Home Medications ?Medication ?Instructions ?Recorded ?Last Taken ?Type allopurinol 100 mg tablet 200 mg PO DAILYCM GOUT 05/12/14 10/09/24 History aspirin 81 mg chewable tablet 81 mg PO DAILY@0800 HEALTH 05/12/14 10/08/24 History atorvastatin 20 mg tablet 20 mg PO QODAY CHOLESTEROL 05/12/14 10/07/24 History duloxetine 60 mg capsule,delayed 60 mg PO DAILY MOOD 05/12/14 10/09/24 History release hydrochlorothiazide 25 mg tablet 25 mg PO DAILY BP 05/12/14 10/09/24 History insulin glargine 100 unit/mL (3 24 units subcut QHS DM 05/12/14 06/07/21 History mL) subcutaneous pen (Lantus Solostar U-100 Insulin) lisinopril 40 mg tablet 40 mg PO DAILY BP 05/12/14 10/09/24 History potassium chloride 10 mEq 10 meq PO BID SUPPLEMENT 05/12/14 10/09/24 History tablet,extended release (Klor-Con) acetaminophen 500 mg tablet 1,000 mg PO BID PRN Pain 06/09/21 06/09/21 07:00 History amlodipine 5 mg tablet 5 mg PO DAILY BP 06/09/21 10/09/24 History magnesium oxide 400 mg PO BID SUPPLEMENT 06/09/21 10/09/24 History metoprolol tartrate 100 mg tablet 100 mg PO BID HEART 06/09/21 10/09/24 History tamsulosin 0.4 mg capsule 0.8 mg PO DAILY PROSTATE 06/09/21 10/08/24 History warfarin 5 mg tablet 5 mg PO MOTUWETH BLOODTHINNER 06/09/21 10/09/24 History apremilast 30 mg tablet (Otezla) 30 mg PO DAILY ARTHRITIS 10/09/24 10/08/24 History bupropion HCl 150 mg 24 hr tablet, 150 mg PO DAILY MOOD 10/09/24 10/09/24 History extended release clobetasol 0.05 % scalp solution See Rx Instructions topical 10/09/24 10/08/24 History .COMPLEX SCALP gabapentin 600 mg tablet 600 mg PO QHS PAIN 10/09/24 10/08/24 History warfarin 2.5 mg tablet 2.5 mg PO SUFRSA BLOOD THNNER 10/09/24 10/03/24 History Allergy/AdvReac Type Severity Reaction Status Date / Time No Known Allergies Allergy Verified 10/09/24 14:01 Surgical History Status post laparoscopic cholecystectomy (~06/2021) Social History (Updated 10/09/24 @ 16:25 by Samia Veronica) household members: spouse housing: house Smoking Status: Former smoker ROS Constitutional Constitutional: Reports fatigue and weakness; Denies chills, fever(s) or malaise Eyes Eyes: Denies change in vision Cardiovascular Cardiovascular: Denies chest pain Respiratory/Chest Respiratory/Chest: Denies shortness of breath at rest Gastrointestinal Gastrointestinal: Denies abdominal pain Genitourinary Genitourinary: Reports difficulty urinating, urinary frequency and urinary hesitancy; Denies burning urination or dysuria Musculoskeletal Musculoskeletal: Reports back pain; Denies arthralgias or myalgias Neurologic Neurologic: Denies dizziness, headache(s), numbness or tingling Vital Signs Vital Signs Vital Signs: 10/09/24 14:01 10/09/24 16:25 Temperature 96 F L Temperature Source Temporal Pulse Rate 69 Respiratory Rate 15 Respiratory Effort Normal Non-Labored Respiratory Pattern Normal Blood Pressure 113/101 H Blood Pressure Mean 105 Pulse Ox 95 Oxygen Delivery Method Room Air Weight Weight: 98.928 kg Body Mass Index (BMI) 32.2 Physical Exam Const alert, oriented x3 and no apparent distress Constitutional Narrative: Elderly male, class I obesity, mildly fatigued appearing but otherwise sitting up comfortably in bed, conversing normally, in no acute distress. General Appearance: cooperative and comfortable HEENT normocephalic, head/scalp atraumatic, hearing grossly normal bilaterally, nasal mucous membranes and turbinates normal and moist oral mucous membranes Eyes PERRL, EOMs intact bilaterally and conjunctivae normal Neck full ROM Chest inspection of chest normal Resp normal respiratory effort, normal air movement, no use of accessory muscles and clear to auscultation bilaterally Cardio regular rate, regular rhythm, no murmurs and peripheral pulses 2+ throughout GI normal to inspection, nondistended, normoactive bowel sounds, soft to palpation, non-tender and non-distended Back/Spine normal ROM Extremity normal to inspection and no pedal edema Skin no rashes or lesions noted Neuro moves all extremities and no focal motor deficits Neuro Narrative: Generalized weakness noted in bilateral lower extremities. Good strength in upper extremities. Speech: speech normal Psych mental status grossly normal Results Lab / Micro Data 10/09/24 17:22 10/09/24 17:22 Labs: Laboratory Results - last 24 hr 10/09/24 15:02: PT 18.8 H, INR 1.5 10/09/24 16:28: Urine Color Reny, Urine Clarity Cloudy, Urine pH 7.0, Ur Specific [place] 1.010, Urine Protein 30 H, Urine Glucose (UA) Normal, Urine Ketones 5 H, Urine Occult Blood 10 H, Urine Nitrite Positive H, Urine Bilirubin 1 H, Urine Urobilinogen Normal, Ur Leukocyte Esterase 500 H, Urine RBC 0-5 SEEN, Urine WBC 25-50 SEEN, Ur Squamous Epith Cells 0 SEEN, Ur Transition Epith Cell 0-5 SEEN, Urine Bacteria 4+, WBC Casts 0-5 SEEN, Urine Mucus 0 SEEN 10/09/24 17:03: Lactic Acid 1.8 10/09/24 17:22: WBC 4.7, RBC 4.43 L, Hgb 12.2 L, Hct 37.1 L, MCV 83.7, MCH 27.5, MCHC 32.9, RDW Std Deviation 47.9 H, RDW Coeff of [place] 15.7 H, Plt Count 85 L, MPV 11.7, Immature Gran % (Auto) 0.200, Neut % (Auto) 70.2 H, Lymph % (Auto) 20.9, [place] % (Auto) 6.0, Eos % (Auto) 2.1, Baso % (Auto) 0.6, Absolute Neuts (auto) 3.3, Absolute Lymphs (auto) 0.98, Nucleated RBC % 0, Sodium 136, Potassium 4.0, Chloride 104, Carbon Dioxide 27.0, Anion Gap 5, BUN 10, Creatinine 1.43 H, Estim Creat Clear Calc 52.56, Est GFR (MDRD) Af Amer 62, Est GFR (MDRD) Non-Af 51 L, BUN/Creatinine Ratio 7.0 L, Glucose 101, Calcium 8.7, Total Bilirubin 0.70, AST 16, ALT 19, Alkaline Phosphatase 134 H, Troponin I High Sens 14, B-Natriuretic Peptide 118.2 H, Total Protein 6.3 L, Albumin 2.8 L, Globulin 3.5, Albumin/Globulin Ratio 0.8 L, Lipase 18, TSH 1.250 Micro: Microbiology 10/09/24 15:02 Mucosa - Nose SARS-CoV-2, Influenza & RSV (PCR) - Final Rhythm Strip Rhythm Strip: afib, vent paced Rate: 70 Ectopy: None Imaging Radiology Impression Chest X-Ray 10/09/24 15:09 IMPRESSION: Examination somewhat limited by patient motion. No acute pneumonic process is clearly evident. No pleural effusion or pneumothorax is seen. Left thoracic transvenous pacemaker/AICD device with leads appears stable. The cardiomediastinal silhouette is unchanged, with a somewhat calcified and tortuous aorta noted. No evidence of cardiomegaly. Old left mid clavicular fracture, with associated deformity. No interval osseous change is seen. Reading Location: [address] 10/09/24 15:53 IMPRESSION: 1. No acute intracranial process is seen. 2. Additional findings as noted. One or more dose reduction techniques were used (e.g., Automated exposure control, adjustment of the mA and/or kV according to patient size, use of iterative reconstruction technique). Reading Location: [address] Assessment & Plan Assessment/Plan (1) Weakness: (2) Acute UTI: (3) Atrial fibrillation, chronic: PLAN: Plan Patient is a 74-year-old male who presented [facility] ED on 10/09/2024 with worsening fatigue with weakness and falls. 1. Acute on chronic debility with falls ? Admit under patient status to [facility]. PT/OT/case management consulted. UTI could be contributing to symptoms but appears more consistent with general deconditioning. Will likely need either SNF placement versus home with home health care on discharge. Appreciate therapy recommendations. 2. Suspected acute cystitis ? UA on admit showed 500 leukocyte esterase, positive nitrites, 4+ bacteria. Denied UTI symptoms but does report significant obstructive symptoms with BPH. Renal/bladder ultrasound ordered. Will treat with IV ceftriaxone for now, follow-up urine culture. 3. Chronic A-fib on warfarin, hypertension, hyperlipidemia ? INR subtherapeutic at 1.5 on admit. Gave dose of therapeutic Lovenox and will continue warfarin at home dosing, follow-up a.m. INR. Mildly hypertensive in the ED to 130s to 140s systolic. Will continue home Lopressor and amlodipine but hold home lisinopril and hydrochlorothiazide for now, can restart as needed. Continue home statin. Chronic medical conditions: ? Class I obesity: BMI 32 on admit. Complicates hospital course, care and prognosis. ? Type 2 diabetes mellitus with neuropathy: Will treat with reduced dose of Lantus 15 units at night and sliding scale insulin with meals, adjust as needed. Continue home gabapentin. ? History of gout: Continue home allopurinol. ? Arthritis: Continue home apremilast. ? Depression/anxiety: Continue home bupropion and duloxetine. ? BPH with obstructive symptoms: Continue home Flomax. ? S/p pacemaker with ICD placement DVT prophylaxis: Not indicated, on warfarin CODE STATUS: Full code, verified Expected disposition: TBD Total clinical time spent by myself addressing the patient's medical issues, reviewing all the data, and collaborating with patient's care team: 55 minutes. Charges/Coding Visit Charges Inpatient E&M: 11089 Init Hosp L2
[2024-10-09] MEDS: Ondansetron 4 MG/2 ML Vial IV (18:25)
[2024-10-09 18:27] VITALS: BP 155/96; PULSE 70; RESP 16; O2SAT 95
[2024-10-09] MEDS: 0.9% Normal Saline (1000mL) 1,000 ML 999 ML IV (18:30)
[2024-10-09 19:23] VITALS: RESP 15
[2024-10-09 19:43] VITALS: BP 158/95; PULSE 83; RESP 16; TEMP 36.6; O2SAT 97
[2024-10-09 19:51] LABS: Platelet Estimate SLT DEC (ADEQ); Platelet Morphology LARGE
[2024-10-09 19:52] LABS: Anisocytosis 1+
--- NOTE | 2024-10-09 20:11 | US_ITS ---
PROCEDURE: KIDNEY AND BLADDER REASON FOR EXAM: Abdominal pain. UTI. TECHNIQUE: Ultrasound of the kidneys and bladder COMPARISON: None. FINDINGS: Normal renal sizes, parenchymal thicknesses, and echotextures. No hydronephrosis. There is 1.2 cm x 1.4 cm 1.5 cm slightly echogenic nodule in the upper pole of the right kidney.. This may represent a small angiomyolipoma. There is a 4.2 cm x 3.8 cm x 3.8 cm cyst with septation in the upper pole of the left kidney. In the lower pole of the left kidney, there is a 1.3 cm x 1.2 cm x 1.1 cm cyst. Grossly normal bladder contour. No large bladder wall mass visualized. RIGHT Kidney Size: 11.9 cm x 6.2 cm x 5.5 cm Cortical Thickness (if discernible): 1.2 cm (>6mm is normal) LEFT Kidney Size: 11.9 cm x 6.2 cm x 6.9 cm Cortical Thickness (if discernible): 1.3 cm (>6mm is normal) Findings suggestive of a 1 cm x 0.5 cm x 0.3 cm calculus in the distal left ureter. BLADDER: Prevoid volume: 306.1 mL US/Kidney and Bladder IMPRESSION: Questionable 1 cm x 0.5 cm x 0.3 cm calculus in the distal left ureter. Left renal cysts. 1.3 cm by 1.2 cm x 1.5 cm echogenic nodule in the upper pole of the right kidne y suggestive of a possible small angiomyolipoma. Reading Location: [place] [address]
[2024-10-09 20:19] VITALS: BP 142/77; PULSE 82; RESP 18; TEMP 36.5; O2SAT 92
[2024-10-09 20:20] VITALS: BMI 32.1
[2024-10-09] MEDS: Magnesium Chloride 64 MG Delay Rel.Tablet 128 MG PO (21:29)
[2024-10-09] MEDS: Gabapentin 600 MG Tablet PO (21:29)
[2024-10-09] MEDS: Insulin Glargine-YFGN 100 UNIT/ML Pen 15 UNIT SC (21:29)
[2024-10-09 21:55] LABS: Bedside Glucose 110 mg/dL (74-106)
[2024-10-09 23:00] VITALS: BP 142/77; PULSE 82
[2024-10-09] MEDS: Enoxaparin 100 MG/ML Syringe SC (23:00)
[2024-10-09] MEDS: Metoprolol Tartrate 100 MG Tablet PO (23:00)
[2024-10-10] VITALS (9 sets, daily range): BP systolic 110–134; BP diastolic 63–93; PULSE 70–79; RESP 15–18; TEMP 36.4–36.7; O2SAT 94–99
[2024-10-10 06:46] LABS: Hematocrit 35.6 % (40-54); Hemoglobin 11.9 g/dL (13.0-16.5); Mean Corp Hgb Conc 33.4 g/dL (32-36); Mean Corpuscular Hgb 27.7 pg (27.0-32.0); Mean Corpuscular Volume 82.8 fL (80-94); Mean Platelet Vol. 11.9 fl (6.2-12.0); POSITIVE COUNT YES; Platelet Count 82 K/mm3 (150-450); RBC Distribution Width CV 15.7 % (11.6-14.6); RBC Distribution Width SD 47.1 fl (35.1-43.9); White Blood Count 4.8 K/mm3 (4.4-11.0)
[2024-10-10 06:47] LABS: Bedside Glucose 76 mg/dL (74-106)
[2024-10-10 06:56] LABS: International Normalized Ratio 1.9; Prothrombin Time (Protime)PT. 22.4 SECONDS (11.7-14.9)
[2024-10-10 07:07] LABS: Anion Gap 5 (5-15); BUN 10 mg/dL (7-18); BUN/Creat Ratio 7.5 RATIO (10-20); Calcium,Total 8.4 mg/dL (8.5-10.1); Chloride 106 mmol/L (98-107); Creatinine, Serum 1.34 mg/dL (0.70-1.30); EST Glomerular Filtration Rate 55 mL/min (>60); Est Glom Filt Rate - Afr Amer 67 mL/min (>60); Estimated Creatinine Clearance 56.08 ml/min; Glucose 73 mg/dL (74-106); Potassium 3.7 mmol/L (3.5-5.1); Sodium Level 137 mmol/L (136-145)
[2024-10-10 08:20] LABS: Bedside Glucose 94 mg/dL (74-106)
[2024-10-10] MEDS: Aspirin 81 MG TAB.CHEW PO (09:44)
[2024-10-10] MEDS: DULoxetine Hcl 60 MG Capsule PO (09:45)
[2024-10-10] MEDS: Allopurinol 100 MG Tablet 200 MG PO (09:45)
[2024-10-10] MEDS: Tamsulosin HCl 0.4 MG Capsule 0.8 MG PO (09:45)
[2024-10-10] MEDS: Metoprolol Tartrate 100 MG Tablet PO ×2 (09:46→21:06)
[2024-10-10] MEDS: Magnesium Chloride 64 MG Delay Rel.Tablet 128 MG PO ×2 (09:46→21:06)
[2024-10-10] MEDS: amLODIPine 5 MG Tablet PO (09:47)
[2024-10-10] MEDS: buPROPion (XL) 150 MG TABLET.XL PO (09:48)
[2024-10-10] MEDS: 0.9% Normal Saline (100mL Bag) 100 ML 15 ML IV (09:49)
[2024-10-10] MEDS: Ceftriaxone 1 GM/50 ML BAG IV (09:49)
[2024-10-10] MEDS: 0.9% Saline Lock 10 ML Syringe IV ×2 (09:49→11:27)
[2024-10-10] MEDS: Glucerna Shake 120 ML LIQUID PO ×3 (09:51→16:12)
--- NOTE | 2024-10-10 10:45 | PCM.PN.HOSP ---
Reason for Visit Reason for Visit: Diagnoses Chronic atrial fibrillation, unspecified (10/09/24) Urinary tract infection, site not specified (10/09/24) Weakness (10/09/24) Objective Data Objective Data Vital Signs: Vital Signs Temp Pulse Resp BP Pulse Ox O2 Del Method O2 Flow Rate 97.5 F L 74 16 134/93 H 96 Nasal Cannula 3 10/10/24 07:59 10/10/24 09:46 10/10/24 07:59 10/10/24 07:59 10/10/24 08:05 10/10/24 08:05 10/10/24 08:05 Oxygen Flow Rate (L/min) 3 Oxygen Delivery Method Nasal Cannula Weight: 218 lb 0.595 oz Body Mass Index (BMI) 32.1 Intake & Output: Intake and Output for Last 24 Hours 10/08/24 10/09/24 10/10/24 23:59 23:59 23:59 Intake Total 1050 / 1200 150 / 150 Balance 1050 / 1200 150 / 150 Lab / Micro Data 10/10/24 06:13 10/10/24 06:13 Labs: Laboratory Results - last 24 hr 10/09/24 15:02: PT 18.8 H, INR 1.5 10/09/24 16:28: Urine Color Reny, Urine Clarity Cloudy, Urine pH 7.0, Ur Specific [place] 1.010, Urine Protein 30 H, Urine Glucose (UA) Normal, Urine Ketones 5 H, Urine Occult Blood 10 H, Urine Nitrite Positive H, Urine Bilirubin 1 H, Urine Urobilinogen Normal, Ur Leukocyte Esterase 500 H, Urine RBC 0-5 SEEN, Urine WBC 25-50 SEEN, Ur Squamous Epith Cells 0 SEEN, Ur Transition Epith Cell 0-5 SEEN, Urine Bacteria 4+, WBC Casts 0-5 SEEN, Urine Mucus 0 SEEN 10/09/24 17:03: Lactic Acid 1.8 10/09/24 17:22: WBC 4.7, RBC 4.43 L, Hgb 12.2 L, Hct 37.1 L, MCV 83.7, MCH 27.5, MCHC 32.9, RDW Std Deviation 47.9 H, RDW Coeff of [place] 15.7 H, Plt Count 85 L, MPV 11.7, Immature Gran % (Auto) 0.200, Neut % (Auto) 70.2 H, Lymph % (Auto) 20.9, [place] % (Auto) 6.0, Eos % (Auto) 2.1, Baso % (Auto) 0.6, Absolute Neuts (auto) 3.3, Absolute Lymphs (auto) 0.98, Nucleated RBC % 0, Platelet Estimate SLT DEC, Plt Morphology Comment LARGE, Anisocytosis 1+, Sodium 136, Potassium 4.0, Chloride 104, Carbon Dioxide 27.0, Anion Gap 5, BUN 10, Creatinine 1.43 H, Estim Creat Clear Calc 52.56, Est GFR (MDRD) Af Amer 62, Est GFR (MDRD) Non-Af 51 L, BUN/Creatinine Ratio 7.0 L, Glucose 101, Calcium 8.7, Total Bilirubin 0.70, AST 16, ALT 19, Alkaline Phosphatase 134 H, Troponin I High Sens 14, B-Natriuretic Peptide 118.2 H, Total Protein 6.3 L, Albumin 2.8 L, Globulin 3.5, Albumin/Globulin Ratio 0.8 L, Lipase 18, TSH 1.250 10/09/24 21:13: POC Glucose 110 H 10/10/24 06:13: WBC 4.8, RBC 4.30 L, Hgb 11.9 L, Hct 35.6 L, MCV 82.8, MCH 27.7, MCHC 33.4, RDW Std Deviation 47.1 H, RDW Coeff of [place] 15.7 H, Plt Count 82 L, MPV 11.9, PT 22.4 H, INR 1.9, Sodium 137, Potassium 3.7, Chloride 106, Carbon Dioxide 26.0, Anion Gap 5, BUN 10, Creatinine 1.34 H, Estim Creat Clear Calc 56.08, Est GFR (MDRD) Af Amer 67, Est GFR (MDRD) Non-Af 55 L, BUN/Creatinine Ratio 7.5 L, Glucose 73 L, Calcium 8.4 L 10/10/24 06:27: POC Glucose 76 10/10/24 07:57: POC Glucose 94 Micro: Microbiology 10/09/24 15:02 Mucosa - Nose SARS-CoV-2, Influenza & RSV (PCR) - Final Radiography Diagnostic Testing: Radiology Impression Chest X-Ray 10/09/24 15:09 IMPRESSION: Examination somewhat limited by patient motion. No acute pneumonic process is clearly evident. No pleural effusion or pneumothorax is seen. Left thoracic transvenous pacemaker/AICD device with leads appears stable. The cardiomediastinal silhouette is unchanged, with a somewhat calcified and tortuous aorta noted. No evidence of cardiomegaly. Old left mid clavicular fracture, with associated deformity. No interval osseous change is seen. Reading Location: [address] 10/09/24 15:53 IMPRESSION: 1. No acute intracranial process is seen. 2. Additional findings as noted. One or more dose reduction techniques were used (e.g., Automated exposure control, adjustment of the mA and/or kV according to patient size, use of iterative reconstruction technique). Reading Location: [address] Renal Ultrasound 10/09/24 20:11 IMPRESSION: Questionable 1 cm x 0.5 cm x 0.3 cm calculus in the distal left ureter. Left renal cysts. 1.3 cm by 1.2 cm x 1.5 cm echogenic nodule in the upper pole of the right kidney suggestive of a possible small angiomyolipoma. Reading Location: [facility] Rhythm Strip Rhythm Strip: afib, vent paced Rate: 70 Ectopy: None Physical Exam Narrative Seen and examined. Patient looks chronically physically deconditioned. He required 2 people even to make him stand up. Could not pivot. Has chronic bilateral lower extremity weakness right more than left. Patient's denies recent stroke. Physical exam General: Alert, Oriented x3, Cooperative HEENT: Atraumatic, PERRLA, EOMI, Normocephalic Oral: No Gingival or Mucosal Lesions/ Ulcerations Neck: Supple, No JVD, Negative Carotid Bruits Chest wall/Lungs: Left upper chest wall pacemaker. Air entry diminished in bilateral lung bases. No crepitation/rhonchi Cardiovascular: Regular rate, Regular Rhythm, Normal S1, Normal S2, No M/G/R Abdomen: Bowel Sounds Present, Soft, Non Tender, Non-Distended : No dysuria. No renal angle tenderness. No suprapubic tenderness. Extremities: Mild edema, Capillary Refill Less than 3 Seconds Skin: No rashes, No breakdown Musculoskeletal: Muscle strength 4/5 at right knees and hip, 4+/5 at left knee and hip. Unsteady gait. No Tenderness to Palpation of Joints or Extremities Neurological: Cranial nerves II-XII grossly intact, DTR 2+/4. No acute focal neurological deficit. Psych/Mental Status: Normal Affect, Appropriate. Assessment & Plan Assessment/Plan (1) Weakness: (2) Acute UTI: (3) Atrial fibrillation, chronic: PLAN: Plan Patient is a 74-year-old male who presented [facility] ED on 10/09/2024 with worsening fatigue with weakness and falls. Patient also has weight loss for several weeks to months. Patient stated he cannot dress himself. 1. Acute on chronic debility with falls, exact etiology unclear, concern for UTI ? Admit under patient status to [facility]. PT/OT/case management consulted. 2. Suspected acute cystitis Patient denies acute urinary tract symptoms including burning micturition. Has chronic irritative and obstructive symptoms due to BPH. Urine culture shows GNR lactose auto headlight mechanic 80,000?100,000 colonies. UA WBC casts 0-5 cells, bacteria 4+, WBC 25-50 cell, LE 500. Nitrite positive. On IV ceftriaxone. Renal ultrasound shows questionable 1 x 0.5 x 0.3 cm calculus distal left ureter but patient does not have abdominal pain. 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 3. Chronic A-fib on warfarin, hypertension, hyperlipidemia ? INR subtherapeutic at 1.5 on admit. Gave dose of therapeutic Lovenox and will continue warfarin at home dosing 10/10: INR 1.9. Follow-up a.m. INR. Mildly hypertensive in the ED to 130s to 140s systolic. Will continue home Lopressor and amlodipine but hold home lisinopril and hydrochlorothiazide for now, can restart as needed. Continue home statin. Chronic medical conditions: ? Class I obesity: BMI 32 on admit. Complicates hospital course, care and prognosis. ? Type 2 diabetes mellitus with neuropathy: Will treat with reduced dose of Lantus 15 units at night and sliding scale insulin with meals, adjust as needed. Continue home gabapentin. ? History of gout: Continue home allopurinol. ? Arthritis: Continue home apremilast. ? Depression/anxiety: Continue home bupropion and duloxetine. ? BPH with obstructive symptoms: Continue home Flomax. ? S/p pacemaker with ICD placement DVT prophylaxis: Not indicated, on warfarin CODE STATUS: Full code, verified 10/09/24 16:28 Urine, Clean Catch Urine Culture - Preliminary GNR lactose auto headlight mechanic 10/09/24 15:02 Mucosa - Nose SARS-CoV-2, Influenza & RSV (PCR) - Final Laboratory Results 10/09/24 16:28: Urine Color Reny, Urine Clarity Cloudy, Urine pH 7.0, Ur Specific [place] 1.010, Urine Protein 30 H, Urine Glucose (UA) Normal, Urine Ketones 5 H, Urine Occult Blood 10 H, Urine Nitrite Positive H, Urine Bilirubin 1 H, Urine Urobilinogen Normal, Ur Leukocyte Esterase 500 H, Urine RBC 0-5 SEEN, Urine WBC 25-50 SEEN, Ur Squamous Epith Cells 0 SEEN, Ur Transition Epith Cell 0-5 SEEN, Urine Bacteria 4+, WBC Casts 0-5 SEEN, Urine Mucus 0 SEEN 10/09/24 17:03: Lactic Acid 1.8 10/09/24 17:22: WBC 4.7, RBC 4.43 L, Hgb 12.2 L, Hct 37.1 L, MCV 83.7, MCH 27.5, MCHC 32.9, RDW Std Deviation 47.9 H, RDW Coeff of [place] 15.7 H, Plt Count 85 L, MPV 11.7, Immature Gran % (Auto) 0.200, Neut % (Auto) 70.2 H, Lymph % (Auto) 20.9, [place] % (Auto) 6.0, Eos % (Auto) 2.1, Baso % (Auto) 0.6, Absolute Neuts (auto) 3.3, Absolute Lymphs (auto) 0.98, Nucleated RBC % 0, Platelet Estimate SLT DEC, Plt Morphology Comment LARGE, Anisocytosis 1+, Sodium 136, Potassium 4.0, Chloride 104, Carbon Dioxide 27.0, Anion Gap 5, BUN 10, Creatinine 1.43 H, Estim Creat Clear Calc 52.56, Est GFR (MDRD) Af Amer 62, Est GFR (MDRD) Non-Af 51 L, BUN/Creatinine Ratio 7.0 L, Glucose 101, Hemoglobin A1c Pending, Calcium 8.7, Total Bilirubin 0.70, AST 16, ALT 19, Alkaline Phosphatase 134 H, Troponin I High Sens 14, B-Natriuretic Peptide 118.2 H, Total Protein 6.3 L, Albumin 2.8 L, Globulin 3.5, Albumin/Globulin Ratio 0.8 L, Lipase 18, TSH 1.250 10/09/24 21:13: POC Glucose 110 H 10/10/24 06:13: WBC 4.8, RBC 4.30 L, Hgb 11.9 L, Hct 35.6 L, MCV 82.8, MCH 27.7, MCHC 33.4, RDW Std Deviation 47.1 H, RDW Coeff of [place] 15.7 H, Plt Count 82 L, MPV 11.9, PT 22.4 H, INR 1.9, Sodium 137, Potassium 3.7, Chloride 106, Carbon Dioxide 26.0, Anion Gap 5, BUN 10, Creatinine 1.34 H, Estim Creat Clear Calc 56.08, Est GFR (MDRD) Af Amer 67, Est GFR (MDRD) Non-Af 55 L, BUN/Creatinine Ratio 7.5 L, Glucose 73 L, Calcium 8.4 L 10/10/24 06:27: POC Glucose 76 10/10/24 07:57: POC Glucose 94 10/10/24 11:30: POC Glucose 95 Charges/Coding Visit Charges Inpatient E&M: 25478 Subs Hosp L2
--- NOTE | 2024-10-10 12:05 | CASEMGMT ---
Addendum entered by Rosy Wu 10/10/24 13:41: Strata: 3 Original Note: RN CM PROFESSOR OF LEGAL STUDIES CM?to room to meet with patient for initial transition planning/care coordination assessment. RN ROMAN?introduced self and role at [facility]. Pt voices understanding and consents to assessment?at this time. Pt resting in bed in no distress at this time. Pt is A/O at this time and answers all questions appropriately. Care providers, pharmacy, and demographics verified/updated at this time. PCP: Dr Chawla Specialists: Dr Kwok-computer forensics investigator, Dr Serrano-pulmonology, Dr Willie Bryant, commutator presser @ [facility] Preferred Pharmacy: [place] [facility] Insurance: [facility] Prescription Benefit: yes LNOK: , Kiley. 2 adult children Living Arrangements: Lives w/his in one-story home w/1-2 steps to enter. Pt states assists him w/everything. She assists w/bathing/dressing, medications, groceries/meals, and all other home mgnt tasks. Pt states he is usually able to go the the bathroom on his own. Transportation:?Pt does not drive. provides transportation. DME: States has the following DME: shower chair, grab bars, hand-held shower, cane, walker, W/C, pulse ox, functioning glucometer w/supplies, CPAP w/O2 bleed-in @ HS @ 3 L/M. He states he does not wear O2 during the day. Pt states no need for further DME at this time. HHC/SNF: Pt was @ a SNF in [place] for only 3 days and then I went home. He also states he has had HHC in the past. Per therapy, SNF is recommended. Pt only able to walk 14 ft today w/gait deviations, mod A of 1, and w/use of WW. Discussed discharge planning. Pt states he is not sure what he wants to do, stating he may consider a SNF but would like to talk w/his 1st. He was agreeable to JESSICA OWENS calling his while in room w/pt. Call placed to . No answer on either cell phone or home phone. VM left for her to call this JESSICA OWENS back. PLAN: TBD. Gabriella ARRINGTON RN, CM
[2024-10-10 12:26] LABS: Bedside Glucose 95 mg/dL (74-106)
--- NOTE | 2024-10-10 13:22 | CASEMGMT ---
Discharge Planning A list of SNF providers including quality and resource use data and consistent with the patient's preferred geographic region, medical needs, and insurance network was created in [employer] Guide.? This list was provided to the SW. Charlotte Zepeda, Discharge Planning Ass
--- NOTE | 2024-10-10 14:43 | CASEMGMT ---
Addendum entered by Dinora Hernandez 10/10/24 16:04: Received update from that pt is here and they want OP therapy. JESSICA OWENS into pt room, confirmed this with pt and . They do not want HHC either. Discussed options for outpt therapy in [place]. Green sheet on chart for outpt therapy rx. Pt is aware this will be signed and given to him at dc should pt dc over the weekend. Pt wants to see where his neighbor goes and then decide where he will go. Pt aware if he is still here on Sunday and knows which facility he wants to use this RN ROMAN can set up for him should he like. Pt denies further needs at this time. Original Note: EJSSICA OWENS into pt room, pt lying in bed with oxygen on. Pt states his should have been here by now. He states that he would like to give her a few more minutes so they can discuss his dc plan. TC to pt , no answer. Did not leave another vm.
--- NOTE | 2024-10-10 15:42 | CASEMGMT ---
Social Work- SW met with pt and pt to discuss preferences at discharge. Pt states that she was a supervisor shrimp pond at all of the nursing homes around this area and does not want pt to go inpatient for therapy. Pt also does not want to go to a facility. Pt reports that his home is handicap accessible. Pt states that pt has all the DME needed including a wheelchair. Pt states that she was here for therapy this morning and saw the therapists working with pt. Pt reports I can do that in regards to helping pt. Pt states that he does not have more than 14' between most places in the home and she could use a wheelchair if needed. Pt reports that they have 2 dogs that prohibit HHC from coming into the home, as they are not friendly. Pt and pt feel outpatient therapy is the best option. Pt believes [facility] will be their choice, but would like to check with their neighbor to see where he goes. Pt will update staff. VANESSA updated RNCM. UMAIR Ruiz
--- NOTE | 2024-10-10 15:51 | CT_ITS ---
PROCEDURE: ABDOMEN/PELVIS WITHOUT CONT REASON FOR EXAM: Rule out kidney stone TECHNIQUE: Abdomen and pelvis CT without intravenous contrast. COMPARISON: 07/10/2024. FINDINGS: Noncontrast technique limits evaluation of the abdominal and pelvic viscera. Lung bases: Bibasilar atelectasis and scarring Liver: Nodular contour of liver.. Gallbladder: Surgically absent. No discrete masses. Spleen: Unremarkable. Pancreas: Unremarkable. Adrenals: Unremarkable. Kidneys: Bilateral atrophic kidneys. There is a 7 mm distal ureteral calculus in the left UVJ with no evidence of hydroureter or hydronephrosis. There is a superior pole hypodense mass in the left kidney measuring 4.3 cm. Bladder: Unremarkable. Reproductive Organs: Prostate measures 5.1 cm in transverse dimension. Bowel: Unremarkable. Appendix: Normal. Lymph nodes: No suspicious lymph node enlargement. Vasculature: Atherosclerotic changes with no evidence of aneurysm. Peritoneum / Retroperitoneum: No ascites. No free air. Bones: Multilevel degenerative changes in the thoracolumbar spine. CT/Abdomen/Pelvis without Cont IMPRESSION: 1. Left ureteral calculus at the level of the UVJ with no evidence of hydroure ter or left hydronephrosis. 2. Left renal cyst. 3. Cirrhosis 4. Prostatomegaly 5. Sigmoid diverticulosis with no evidence of diverticulitis One or more dose reduction techniques were used (e.g., Automated exposure contr ol, adjustment of the mA and/or kV according to patient size, use of iterative reconstruction technique). Reading Location: [facility]
[2024-10-10 16:43] LABS: Bedside Glucose 90 mg/dL (74-106)
[2024-10-10 17:00] LABS: Hemoglobin A1c 4.5 % (3.8-5.6)
--- NOTE | 2024-10-10 17:00 | CT_ITS ---
PROCEDURE: BRAIN/HEAD WITHOUT CONTRAST REASON FOR EXAM: Bilateral lower extremity weakness. TECHNIQUE: Contiguous axial scans of 3.75 millimeter slice thicknesses with sagittal and coronal reconstruction images. One or more dose reduction techniques were utilized (e.g., automated exposure control, adjustment of mA and/or kv according to patient size, use of iterative reconstruction technique). IV CONTRAST: Not given. COMPARISON: CT brain dated 10/09/2024. FINDINGS: No intraparenchymal hemorrhage. Small left basal ganglia area of hypodensity, stable No mass effect or midline shift. Bilateral central white matter, periventricular, and subcortical hypoattenuation. Ventricles and cisterns are appropriately sized for patient's age. Age-appropriate senescent change. No extra-axial fluid collections. Cerebellum and posterior fossa unremarkable. Paranasal sinuses normal. Mastoid air cells are normal. Vertebrobasilar atherosclerotic calcific disease. Calvarium unremarkable. Soft tissues unremarkable. CT/Brain/Head without Contrast IMPRESSION: 1. Chronic microvascular ischemic changes. 2. No acute intracranial abnormalities are demonstrated. 3. Age-appropriate senescent changes. Reading Location: [facility]
[2024-10-10] MEDS: Gabapentin 600 MG Tablet PO (21:11)
[2024-10-10 21:26] LABS: Bedside Glucose 93 mg/dL (74-106)
[2024-10-10] MEDS: Insulin Glargine-YFGN 100 UNIT/ML Pen SC (21:30)
[2024-10-11] VITALS (7 sets, daily range): BP systolic 115–140; BP diastolic 71–93; PULSE 69–76; RESP 15–16; TEMP 36.3–36.8; O2SAT 94–100
[2024-10-11 06:14] LABS: Bedside Glucose 108 mg/dL (74-106)
--- NOTE | 2024-10-11 07:40 | PCM.CONS.U ---
Assessment & Plan Assessment/Plan (1) Acute UTI: (2) Weakness: (3) Ureteral stone: PLAN: Plan for cystoscopy and left stent placement tomorrow at 9:00 am HPI Consult Data Date of Consult: 10/11/24 HPI Narrative Reason for Consultation: Obstructing left ureteral stone HPI Narrative: YAZAN LOPEZ, is a 74 M who presents to the hospital with acute urinary tract infection also metabolic encephalopathy, workup he was found to have a UTI and also obstructing stone in the distal left ureter but no hydronephrosis. At this point plan to take him to surgery tomorrow for cystoscopy and left stent placement to alleviate the obstruction will continue to treat the UTI and I will get him set up for outpatient surgery to laser the stone later on. [facility] Medical History Injury of head and neck Cancer Hepatitis Former smoker CPAP (continuous positive airway pressure) dependence Sleep apnea Atrial fibrillation ICD (implantable cardioverter-defibrillator) in place Pacemaker Hypertension Acute calculous cholecystitis Hyperlipemia Diabetic neuropathy HTN (hypertension) Diabetes Home Medications ?Medication ?Instructions ?Recorded ?Last Taken ?Type allopurinol 100 mg tablet 200 mg PO DAILYCM GOUT 05/12/14 10/09/24 History aspirin 81 mg chewable tablet 81 mg PO DAILY@0800 HEALTH 05/12/14 10/08/24 History atorvastatin 20 mg tablet 20 mg PO QODAY CHOLESTEROL 05/12/14 10/07/24 History duloxetine 60 mg capsule,delayed 60 mg PO DAILY MOOD 05/12/14 10/09/24 History release hydrochlorothiazide 25 mg tablet 25 mg PO DAILY BP 05/12/14 10/09/24 History insulin glargine 100 unit/mL (3 24 units subcut QHS DM 05/12/14 06/07/21 History mL) subcutaneous pen (Lantus Solostar U-100 Insulin) lisinopril 40 mg tablet 40 mg PO DAILY BP 05/12/14 10/09/24 History potassium chloride 10 mEq 10 meq PO BID SUPPLEMENT 05/12/14 10/09/24 History tablet,extended release (Klor-Con) acetaminophen 500 mg tablet 1,000 mg PO BID PRN Pain 06/09/21 06/09/21 07:00 History amlodipine 5 mg tablet 5 mg PO DAILY BP 06/09/21 10/09/24 History magnesium oxide 400 mg PO BID SUPPLEMENT 06/09/21 10/09/24 History metoprolol tartrate 100 mg tablet 100 mg PO BID HEART 06/09/21 10/09/24 History tamsulosin 0.4 mg capsule 0.8 mg PO DAILY PROSTATE 06/09/21 10/08/24 History warfarin 5 mg tablet 5 mg PO MOTUWETH BLOODTHINNER 06/09/21 10/09/24 History apremilast 30 mg tablet (Otezla) 30 mg PO DAILY ARTHRITIS 10/09/24 10/08/24 History bupropion HCl 150 mg 24 hr tablet, 150 mg PO DAILY MOOD 10/09/24 10/09/24 History extended release clobetasol 0.05 % scalp solution See Rx Instructions topical 10/09/24 10/08/24 History .COMPLEX SCALP gabapentin 600 mg tablet 600 mg PO QHS PAIN 10/09/24 10/08/24 History warfarin 2.5 mg tablet 2.5 mg PO SUFRSA BLOOD THNNER 10/09/24 10/03/24 History Allergy/AdvReac Type Severity Reaction Status Date / Time No Known Allergies Allergy Verified 10/09/24 14:01 Surgical History Status post laparoscopic cholecystectomy (~06/2021) Social History household members: spouse housing: house Smoking Status: Former smoker ROS Constitutional Constitutional: Denies chills, fever(s) or malaise Eyes Eyes: Denies blurry vision or change in vision ENT HEENT: Reports none Cardiovascular Cardiovascular: Denies chest pain or palpitations Respiratory/Chest Respiratory/Chest: Denies cough or shortness of breath with exertion Gastrointestinal Gastrointestinal: Denies abdominal pain, constipation or diarrhea Musculoskeletal Musculoskeletal: Denies back pain, joint stiffness or joint swelling Integumentary Integumentary: Denies dry skin, jaundice, lesions or rash Neurologic Neurologic: Denies confusion, syncope or weakness Psychiatric Psychiatric: Reports none; Denies anxiety or depression Endocrine Endocrinology: Denies excessive sweating, fatigue or flushing Hematologic/Lymphatic Hematologic/Lymphatic: Denies anemia, easy bleeding or easy bruising Medical Records Data Attestation: I reviewed the patient's medical records Medical Nutrition Assessment Dietitian: Malnutrition Criteria Met Start: 10/10/24 13:02 Freq: Status: Active Protocol: Document 10/10/24 13:02 SANA (Rec: 10/10/24 13:02 SLA [id number]) Nutrition Malnutrition Evidence of Yes Malnutrition Exists Malnutrition (severe Chronic ): Evidenced By Suboptimal Energy Intake (Severe),Weight Loss (Severe) Clinical Problem Chronic Disease or Condition Related Malnutrition Etiology related to inadequate energy intake Signs/Symptoms as evidenced by po intake meeting < 75% of est nutritional needs and 9.2% unplanned wt loss x 3 months Status Active Problem Recommendation Dietitian Will liberalize diet to CHO Controlled d/t signs and Recommendations/ symptoms of malnutrition Changes Will continue 4 oz glucerna shake tid w/ medpass for increased nutrition if consumed Will provide diet education at time of follow up if desired by pt WIll continue to follow and monitor for changes in pt nutritional status and make additional rec as indicated . Lab / Micro Data 10/10/24 06:13 10/10/24 06:13 Labs: Laboratory Results - last 24 hr 10/09/24 17:22: Hemoglobin A1c 4.5 10/10/24 07:57: POC Glucose 94 10/10/24 11:30: POC Glucose 95 10/10/24 16:06: POC Glucose 90 10/10/24 21:05: POC Glucose 93 10/11/24 05:55: POC Glucose 108 H Micro: Microbiology 10/09/24 16:28 Urine, Clean Catch Urine Culture - Preliminary GNR lactose bottle capping machine operator Rhythm Strip Rhythm Strip: afib, vent paced Rate: 70 Ectopy: None Imaging Radiology Impression Renal Ultrasound 10/09/24 20:11 IMPRESSION: Questionable 1 cm x 0.5 cm x 0.3 cm calculus in the distal left ureter. Left renal cysts. 1.3 cm by 1.2 cm x 1.5 cm echogenic nodule in the upper pole of the right kidney suggestive of a possible small angiomyolipoma. Reading Location: [facility]1 Abdomen/Pelvis CT 10/10/24 15:51 IMPRESSION: 1. Left ureteral calculus at the level of the UVJ with no evidence of hydroureter or left hydronephrosis. 2. Left renal cyst. 3. Cirrhosis 4. Prostatomegaly 5. Sigmoid diverticulosis with no evidence of diverticulitis One or more dose reduction techniques were used (e.g., Automated exposure control, adjustment of the mA and/or kV according to patient size, use of iterative reconstruction technique). Reading Location: [facility]
--- NOTE | 2024-10-11 07:42 | EKG12_ITS ---
Test Reason : PRE-OP Blood Pressure : */* mmHG Vent. Rate : 70 BPM Atrial Rate : 70 BPM P-R Int : * ms QRS Dur : 198 ms QT Int : 504 ms P-R-T Axes : * -78 99 degrees QTcB Int : 544 ms Ventricular-paced rhythm with frequent AV dual-paced complexes Abnormal ECG When compared with ECG of 09-Oct-2024 15:03, MANUAL COMPARISON REQUIRED DATA IS UNCONFIRMED Confirmed by ALMA DELIA IBANEZ, MICAELA ([id number]), industrial editor SUZANNA THOMPSON ([id number]) on 10/13/2024 1:57:35 PM Referred By: Confirmed By: MICAELA FLANNERY MD
--- NOTE | 2024-10-11 09:14 | PCM.PN.HOSP ---
Reason for Visit Reason for Visit: Diagnoses Chronic atrial fibrillation, unspecified (10/09/24) Calculus of ureter (10/09/24) Urinary tract infection, site not specified (10/09/24) Weakness (10/09/24) Objective Data Objective Data Vital Signs: Vital Signs Temp Pulse Resp BP Pulse Ox O2 Del Method O2 Flow Rate 97.3 F L 76 16 140/83 H 94 CPAP 3 10/11/24 08:20 10/11/24 08:20 10/11/24 08:20 10/11/24 08:20 10/11/24 08:20 10/11/24 08:22 10/10/24 15:13 Oxygen Flow Rate (L/min) 3 Oxygen Delivery Method CPAP Weight: 218 lb 0.595 oz Body Mass Index (BMI) 32.1 Intake & Output: Intake and Output for Last 24 Hours 10/09/24 10/10/24 10/11/24 23:59 23:59 23:59 Intake Total 1050 / 1200 900 / 1000 100 / 100 Balance 1050 / 1200 900 / 1000 100 / 100 Medical Nutrition Assessment Dietitian: Malnutrition Criteria Met Start: 10/10/24 13:02 Freq: Status: Active Protocol: Document 10/10/24 13:02 SLA (Rec: 10/10/24 13:02 SLA [email or web address]) Nutrition Malnutrition Evidence of Yes Malnutrition Exists Malnutrition (severe Chronic ): Evidenced By Suboptimal Energy Intake (Severe),Weight Loss (Severe) Clinical Problem Chronic Disease or Condition Related Malnutrition Etiology related to inadequate energy intake Signs/Symptoms as evidenced by po intake meeting < 75% of est nutritional needs and 9.2% unplanned wt loss x 3 months Status Active Problem Recommendation Dietitian Will liberalize diet to CHO Controlled d/t signs and Recommendations/ symptoms of malnutrition Changes Will continue 4 oz glucerna shake tid w/ medpass for increased nutrition if consumed Will provide diet education at time of follow up if desired by pt WIll continue to follow and monitor for changes in pt nutritional status and make additional rec as indicated . Lab / Micro Data 10/10/24 06:13 10/10/24 06:13 Labs: Laboratory Results - last 24 hr 10/09/24 17:22: Hemoglobin A1c 4.5 10/10/24 11:30: POC Glucose 95 10/10/24 16:06: POC Glucose 90 10/10/24 21:05: POC Glucose 93 10/11/24 05:55: POC Glucose 108 H Micro: Microbiology 10/09/24 16:28 Urine, Clean Catch Urine Culture - Preliminary GNR lactose harbor engineer 10/09/24 15:02 Mucosa - Nose SARS-CoV-2, Influenza & RSV (PCR) - Final Radiography Diagnostic Testing: Radiology Impression Renal Ultrasound 10/09/24 20:11 IMPRESSION: Questionable 1 cm x 0.5 cm x 0.3 cm calculus in the distal left ureter. Left renal cysts. 1.3 cm by 1.2 cm x 1.5 cm echogenic nodule in the upper pole of the right kidney suggestive of a possible small angiomyolipoma. Reading Location: [facility]1 Abdomen/Pelvis CT 10/10/24 15:51 IMPRESSION: 1. Left ureteral calculus at the level of the UVJ with no evidence of hydroureter or left hydronephrosis. 2. Left renal cyst. 3. Cirrhosis 4. Prostatomegaly 5. Sigmoid diverticulosis with no evidence of diverticulitis One or more dose reduction techniques were used (e.g., Automated exposure control, adjustment of the mA and/or kV according to patient size, use of iterative reconstruction technique). Reading Location: [facility] Rhythm Strip Rhythm Strip: afib, vent paced Rate: 70 Ectopy: None Physical Exam Narrative Seen and examined. CT abdomen pelvis was reviewed and left UVJ stone confirmed. Plan for cystoscopy discussed with the patient's . Patient looks chronically physically deconditioned. He required 2 people even to make him stand up. Has chronic bilateral lower extremity weakness right more than left. Patient's denies recent stroke. Physical exam General: Alert, Oriented x3, Cooperative HEENT: Atraumatic, PERRLA, EOMI, Normocephalic Oral: No Gingival or Mucosal Lesions/ Ulcerations Neck: Supple, No JVD, Negative Carotid Bruits Chest wall/Lungs: Left upper chest wall pacemaker. Air entry diminished in bilateral lung bases. No crepitation/rhonchi Cardiovascular: Regular rate, Regular Rhythm, Normal S1, Normal S2, No M/G/R Abdomen: Bowel Sounds Present, Soft, Non Tender, Non-Distended : No dysuria. No renal angle tenderness. No suprapubic tenderness. Extremities: Mild edema, Capillary Refill Less than 3 Seconds Skin: No rashes, No breakdown Musculoskeletal: Muscle strength 4/5 at right knees and hip, 4+/5 at left knee and hip. Unsteady gait. No Tenderness to Palpation of Joints or Extremities Neurological: Cranial nerves II-XII grossly intact, DTR 2+/4. No acute focal neurological deficit. Psych/Mental Status: Normal Affect, Appropriate. Assessment & Plan Assessment/Plan (1) Weakness: (2) Acute UTI: (3) Atrial fibrillation, chronic: PLAN: Plan Patient is a 74-year-old male who presented [facility] ED on 10/09/2024 with worsening fatigue with weakness and falls. Patient also has weight loss for several weeks to months. Patient stated he cannot dress himself. 1. Acute on chronic debility with falls, exact etiology unclear, concern for UTI ? Admit under patient status to [facility]. PT/OT/case management consulted. 2. Suspected acute cystitis Patient denies acute urinary tract symptoms including burning micturition. Has chronic irritative and obstructive symptoms due to BPH. Urine culture shows GNR lactose harbor engineer 80,000?100,000 colonies. UA WBC casts 0-5 cells, bacteria 4+, WBC 25-50 cell, LE 500. Nitrite positive. On IV ceftriaxone. Renal ultrasound shows questionable 1 x 0.5 x 0.3 cm calculus distal left ureter but patient does not have abdominal pain. 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 10/11: CT abdomen/pelvis reviewed. Shows obstructing left UVJ stone, 7 mm with no evidence of hydroureter or hydronephrosis. Superior pole hypodense mass in left kidney measuring 4.3 cm. Left kidney superior pole?reported hypodense mass 4.3 cm which corresponds to 4.2 cm cyst with septation as reported in ultrasound. Urologist consult reviewed and appreciated. Plan for cystoscopy tomorrow. 3. Chronic A-fib on warfarin, hypertension, hyperlipidemia ? INR subtherapeutic at 1.5 on admit. Gave dose of therapeutic Lovenox and will continue warfarin at home dosing 10/10: INR 1.9. Follow-up a.m. INR. Mildly hypertensive in the ED to 130s to 140s systolic. Will continue home Lopressor and amlodipine but hold home lisinopril and hydrochlorothiazide for now, can restart as needed. Continue home statin. 10/11: INR pending. Hold warfarin for tonight for procedure tomorrow. Chronic medical conditions: ? Class I obesity: BMI 32 on admit. Complicates hospital course, care and prognosis. ? Type 2 diabetes mellitus with neuropathy: Will treat with reduced dose of Lantus 15 units at night and sliding scale insulin with meals, adjust as needed. Continue home gabapentin. ? History of gout: Continue home allopurinol. ? Arthritis: Continue home apremilast. ? Depression/anxiety: Continue home bupropion and duloxetine. ? BPH with obstructive symptoms: Continue home Flomax. ? S/p pacemaker with ICD placement DVT prophylaxis: Not indicated, on warfarin CODE STATUS: Full code, verified 10/09/24 16:28 Urine, Clean Catch Urine Culture - Preliminary GNR lactose harbor engineer 10/09/24 15:02 Mucosa - Nose SARS-CoV-2, Influenza & RSV (PCR) - Final Laboratory Results 10/09/24 16:28: Urine Color Reny, Urine Clarity Cloudy, Urine pH 7.0, Ur Specific Lyon 1.010, Urine Protein 30 H, Urine Glucose (UA) Normal, Urine Ketones 5 H, Urine Occult Blood 10 H, Urine Nitrite Positive H, Urine Bilirubin 1 H, Urine Urobilinogen Normal, Ur Leukocyte Esterase 500 H, Urine RBC 0-5 SEEN, Urine WBC 25-50 SEEN, Ur Squamous Epith Cells 0 SEEN, Ur Transition Epith Cell 0-5 SEEN, Urine Bacteria 4+, WBC Casts 0-5 SEEN, Urine Mucus 0 SEEN 10/09/24 17:03: Lactic Acid 1.8 10/09/24 17:22: WBC 4.7, RBC 4.43 L, Hgb 12.2 L, Hct 37.1 L, MCV 83.7, MCH 27.5, MCHC 32.9, RDW Std Deviation 47.9 H, RDW Coeff of Montrell 15.7 H, Plt Count 85 L, MPV 11.7, Immature Gran % (Auto) 0.200, Neut % (Auto) 70.2 H, Lymph % (Auto) 20.9, Ward % (Auto) 6.0, Eos % (Auto) 2.1, Baso % (Auto) 0.6, Absolute Neuts (auto) 3.3, Absolute Lymphs (auto) 0.98, Nucleated RBC % 0, Platelet Estimate SLT DEC, Plt Morphology Comment LARGE, Anisocytosis 1+, Sodium 136, Potassium 4.0, Chloride 104, Carbon Dioxide 27.0, Anion Gap 5, BUN 10, Creatinine 1.43 H, Estim Creat Clear Calc 52.56, Est GFR (MDRD) Af Amer 62, Est GFR (MDRD) Non-Af 51 L, BUN/Creatinine Ratio 7.0 L, Glucose 101, Hemoglobin A1c Pending, Calcium 8.7, Total Bilirubin 0.70, AST 16, ALT 19, Alkaline Phosphatase 134 H, Troponin I High Sens 14, B-Natriuretic Peptide 118.2 H, Total Protein 6.3 L, Albumin 2.8 L, Globulin 3.5, Albumin/Globulin Ratio 0.8 L, Lipase 18, TSH 1.250 10/09/24 21:13: POC Glucose 110 H 10/10/24 06:13: WBC 4.8, RBC 4.30 L, Hgb 11.9 L, Hct 35.6 L, MCV 82.8, MCH 27.7, MCHC 33.4, RDW Std Deviation 47.1 H, RDW Coeff of Montrell 15.7 H, Plt Count 82 L, MPV 11.9, PT 22.4 H, INR 1.9, Sodium 137, Potassium 3.7, Chloride 106, Carbon Dioxide 26.0, Anion Gap 5, BUN 10, Creatinine 1.34 H, Estim Creat Clear Calc 56.08, Est GFR (MDRD) Af Amer 67, Est GFR (MDRD) Non-Af 55 L, BUN/Creatinine Ratio 7.5 L, Glucose 73 L, Calcium 8.4 L 10/10/24 06:27: POC Glucose 76 10/10/24 07:57: POC Glucose 94 10/10/24 11:30: POC Glucose 95 Charges/Coding Visit Charges Inpatient E&M: 37009 Subs Hosp L2
--- NOTE | 2024-10-11 09:16 | NURSING ---
Pt had already had his morning meds when this RN got the NPO order for surgery. Pt was about to eat breakfast and took it away before eating.
[2024-10-11] MEDS: Metoprolol Tartrate 100 MG Tablet PO ×2 (09:37→21:13)
[2024-10-11] MEDS: Magnesium Chloride 64 MG Delay Rel.Tablet 128 MG PO ×2 (09:37→21:13)
[2024-10-11] MEDS: Allopurinol 100 MG Tablet 200 MG PO (09:38)
[2024-10-11] MEDS: amLODIPine 5 MG Tablet PO (09:38)
[2024-10-11] MEDS: DULoxetine Hcl 60 MG Capsule PO (09:38)
[2024-10-11] MEDS: Aspirin 81 MG TAB.CHEW PO (09:39)
[2024-10-11] MEDS: buPROPion (XL) 150 MG TABLET.XL PO (09:39)
[2024-10-11] MEDS: Tamsulosin HCl 0.4 MG Capsule 0.8 MG PO (09:39)
[2024-10-11] MEDS: Atorvastatin Calcium 20 MG Tablet PO (09:39)
[2024-10-11] MEDS: Ceftriaxone 1 GM/50 ML BAG IV (09:40)
[2024-10-11] MEDS: Glucerna Shake 120 ML LIQUID PO ×2 (09:41→17:06)
[2024-10-11 11:39] LABS: Bedside Glucose 134 mg/dL (74-106)
[2024-10-11 14:45] LABS: International Normalized Ratio 1.8
--- NOTE | 2024-10-11 16:51 | NURSING ---
This RN aware of Vital Signs taken at 1400 today by Radha Gabriel [facility] Baggage Agent.
[2024-10-11] MEDS: Gabapentin 600 MG Tablet PO (21:14)
[2024-10-11 22:32] LABS: Bedside Glucose 117 mg/dL (74-106)
--- NOTE | 2024-10-11 22:40 | CPS ---
Pt is refusing to wear CPAP for tonight.
[2024-10-12] VITALS (17 sets, daily range): BP systolic 93–170; BP diastolic 62–98; PULSE 68–84; RESP 16–20; TEMP 36.4–37.2; O2SAT 70–100; BMI 32.1
[2024-10-12 00:16] LABS: Bedside Glucose 127 mg/dL (74-106)
[2024-10-12 06:10] LABS: Absolute Lymphocyte Count 0.79 X10^3/uL (0.83-4.51); Absolute Neutrophil Count 2.1 X10^3/uL (2.0-7.7); Basophil# 0.03 X10^3/uL; Basophil% 0.9 % (0-1); Eosinophil# 0.12 X10^3/uL; Eosinophils% 3.6 % (0-5); Hematocrit 34.1 % (40-54); Hemoglobin 11.1 g/dL (13.0-16.5); Lymphocyte # 0.79 X10^3/ul (0.83-4.51); Lymphocyte % 23.9 % (19-41); Mean Corp Hgb Conc 32.6 g/dL (32-36); Mean Corpuscular Hgb 27.8 pg (27.0-32.0); Mean Corpuscular Volume 85.5 fL (80-94); Monocyte# 0.28 X10^3/uL; Monocyte% 8.5 % (0-10); NRBC Flagged by Analyzer 0 % (0-5); Neutrophil # 2.08 X10^3/uL (2.7-7.7); Neutrophil % 62.8 % (47-70); POSITIVE COUNT YES; Platelet Count 68 K/mm3 (150-450); RBC Distribution Width CV 15.8 % (11.6-14.6); RBC Distribution Width SD 49.1 fl (35.1-43.9); Red Blood Count 3.99 M/mm3 (4.6-6.2); White Blood Count 3.3 K/mm3 (4.4-11.0)
[2024-10-12 06:33] LABS: International Normalized Ratio 1.6; Prothrombin Time (Protime)PT. 19.8 SECONDS (11.7-14.9)
[2024-10-12 06:43] LABS: Anion Gap 7 (5-15); BUN 14 mg/dL (7-18); BUN/Creat Ratio 9.4 RATIO (10-20); Calcium,Total 8.6 mg/dL (8.5-10.1); Chloride 105 mmol/L (98-107); Creatinine, Serum 1.49 mg/dL (0.70-1.30); EST Glomerular Filtration Rate 49 mL/min (>60); Est Glom Filt Rate - Afr Amer 59 mL/min (>60); Estimated Creatinine Clearance 50.44 ml/min; Glucose 96 mg/dL (74-106); Potassium 3.9 mmol/L (3.5-5.1); Sodium Level 137 mmol/L (136-145)
--- NOTE | 2024-10-12 07:00 | PCM.PRE.AN2 ---
ASA Classification* ASA Classification ASA Classification: 3 Assessment & Plan Anesthesia* Anesthesia Assessment Anesthesia Assessment: Discussed sedation and/or anesthesia options, risks, benefits, and alternatives with patient/parents/legal guardian/POA. Questions invited. The patient/parents/legal guardian/POA seems to understand and agrees to proceed with anesthesia plan. Reviewed the physical assessment, medical history, allergy history and patient home medications list prior to surgery/procedure/anesthetic and documented any changes. Performed airway and anesthesia risk assessments. Anesthesia Type Anesthesia Type: MAC (AICD/Pacer, hx afib) Anesthesia Focused Assessment* Temperature: 98.2 F Pulse Rate: 68 Blood Pressure: 109/64 Respiratory Rate: 18 Pulse Ox: 97 Oxygen Flow Rate (L/min): 3 Fraction of Inspired Oxygen (FIO2): 3 Airway Assessment Mouth opens: >3 cm Mallampati Score: II Focused Labs Anesthesia Preop lab: CBC WBC 3.3 K/mm3 (4.4-11.0) L 10/12/24 05:46 10/12/24 RBC 3.99 M/mm3 (4.6-6.2) L 10/12/24 05:46 10/12/24 Hgb 11.1 g/dL (13.0-16.5) L 10/12/24 05:46 10/12/24 Hct 34.1 % (40-54) L 10/12/24 05:46 10/12/24 Plt Count 68 K/mm3 (150-450) L 10/12/24 05:46 10/12/24 CHEMISTRY Potassium 3.9 mmol/L (3.5-5.1) 10/12/24 05:46 10/12/24 Sodium 137 mmol/L (136-145) 10/12/24 05:46 10/12/24 BUN 14 mg/dL (7-18) 10/12/24 05:46 10/12/24 Creatinine 1.49 mg/dL (0.70-1.30) H 10/12/24 05:46 10/12/24 Glucose 96 mg/dL (74-106) 10/12/24 05:46 10/12/24 POC Glucose 127 mg/dL (74-106) H 10/11/24 23:40 10/11/24 TSH 1.250 uIU/mL (0.358-3.740) 10/09/24 17:22 10/09/24 COAG PT 19.8 SECONDS (11.7-14.9) H 10/12/24 05:46 10/12/24 Pre-Assessment Diagnosis/Proposed Procedure Planned Operative Procedure(s): Cystoscopy ureter stent placement Anesthesia History Anesthesia History - aviation project manager: Anesthesia History - aviation project manager Hx Hospitalization Yes 06/10/15 08:15 Any Problems With Anesthesia No 10/12/24 00:37 Cholinesterase deficiency No 10/12/24 00:37 You/Your Family Experience No 10/12/24 00:37 fever (hyperthermia) with Relationship Recent Exposure to Contagious No 10/12/24 00:37 Disease Does patient have nerve No 10/12/24 00:37 stimulator Patient instructed to have No 10/12/24 00:37 device shut off --Does patient have Pacemaker or ICD? When Was Last Pacemaker Check last month 10/12/24 00:37 QUESTION #4 FULL TEXT: You/Your Family Experience fever (hyperthermia) with Anesthesia Last Oral Intake Last Oral intake: Last Oral Intake NPO since Meds taken in AM with sips of water? Meds patient instructed to take am of surgery PONV PONV - aviation project manager: PONV - aviation project manager Female HX of Motion Sickness HX of N/V After Surgery Non-Smoker Duration of Surgery greater than 60 minutes Number of Risk Factors PONV Score Height & Weight Height & Weight: Anesthesia: Height & Weight Height 5 ft 9 in 10/10/24 12:49 Weight: 98.9 kg 10/10/24 12:49 Body Mass Index (BMI) 32.1 10/09/24 20:20 Respiratory Assessment Respiratory Assessment - aviation project manager: Respiratory Tract Infection Hx - aviation project manager Hx Respiratory Tract Infection No 10/12/24 00:37 STOP Sleep Apnea STOP Sleep Apnea - aviation project manager: STOP Sleep Apnea - aviation project manager Hx Hypertension No 10/10/24 12:22 Hx Sleep Apnea Yes 10/09/24 20:23 CPAP Yes: with O2. he thinks 3L 10/09/24 20:23 BIPAP No 10/09/24 20:23 Do you snore loudly (louder than talking or can be heard Do you often feel tired/ fatigued/ sleepy during daytime? Has anyone observed you stop breathing during sleep? STOP Results Positive 10/09/24 20:23 QUESTION #5 FULL TEXT : Do you snore loudly (louder than talking or can be heard through closed doors)? Tobacco Use History Tobacco Use History - aviation project manager: Tobacco Use History - aviation project manager Tobacco Use Smoking Status Former smoker 10/09/24 20:23 Hx Tobacco Use No 10/09/24 20:23 Years Smoking Packs Smoked per Day Smoking Cessation Date was Yes - quit smoking within 15 10/09/24 20:23 within the last 15 years years Hx Smoking Cessation Date 09/10/08 10/09/24 20:23 Hx Smoking Cessation Counseling Hematologic Medial History Hematologic Hx - aviation project manager: Hematologic Medical Hx - scorer single Hx of Blood Transfusion Yes 10/09/24 20:23 Hx of Transfusion in last 3 No 10/09/24 20:23 Months Date of Last Transfusion (if within last 3 months) Ever experience any problems No 10/09/24 20:23 with transfusion(s)? Specify any problems Hx of Preganancy in last 3 N/A 10/09/24 20:23 Months Nurse Filling Out Transfusion [id number] 10/09/24 20:23 & Questions: Date: 10/09/24 10/09/24 20:23 Time: 20:26 10/09/24 20:23 Patient unable to answer at this time (ie. confused, unrespo /Reproduction History /Reproductive History - aviation project manager: /Reproductive Hx- aviation project manager Hx Now Gestational Age (in weeks): EDC: Hx Hx Para Hx Section SAB Active Medications Active Medications: Current Medications Generic Name Dose Route Start Last Admin Trade Name Freq PRN Reason Stop Dose Admin Acetaminophen 650 mg 10/09/24 20:11 Acetaminophen 325 Mg Tablet PO Q6H PRN PRN Pain 1-10 Or Fever>100.7 Allopurinol 200 mg 10/10/24 08:00 10/11/24 09:38 Allopurinol 100 Mg Tablet PO 200 mg DAILYCM EVAN Administration Amlodipine Besylate 5 mg 10/10/24 10:00 10/11/24 09:38 Amlodipine 5 Mg Tablet PO 5 mg DAILY EVAN Administration Protocol Aspirin 81 mg 10/10/24 08:00 10/11/24 09:39 Aspirin 81 Mg Tab.Chew PO 81 mg BREAKFAST EVAN Administration Atorvastatin Calcium 20 mg 10/11/24 10:00 10/11/24 09:39 Atorvastatin Calcium 20 Mg Tablet PO 20 mg DAILY EVAN Administration Bupropion HCl 150 mg 10/10/24 10:00 10/11/24 09:39 Bupropion (Xl) 150 Mg Tablet.Xl PO 150 mg DAILY EVAN Administration Duloxetine HCl 60 mg 10/10/24 10:00 10/11/24 09:38 Duloxetine Hcl 60 Mg Capsule PO 60 mg DAILY EVAN Administration Gabapentin 600 mg 10/09/24 22:00 10/11/24 21:14 Gabapentin 600 Mg Tablet PO 600 mg QHS EVAN Administration Glucagon 1 mg 10/09/24 20:11 Glucagon 1 Mg/Ml Syringe IM X1 PRN Hypoglycemia Protocol Ceftriaxone Sodium 1 gm in 50 mls @ 100 mls/hr 10/10/24 10:00 10/11/24 10:10 Rocephin IV Infused Q24 EVAN Infusion Dextrose 250 mls @ 0 mls/hr 10/09/24 20:11 Dextrose 10%-Water IV .Q0M PRN HYPOGLYCEMIA Protocol As Directed Sodium Chloride 100 mls @ 15 mls/hr 10/09/24 20:12 10/10/24 18:24 IV Infused .Q6H40M PRN Infusion Saline Flush Insulin Glargine 15 unit 10/09/24 22:00 10/12/24 00:24 Insulin Glargine-Yfgn 100 Unit/Ml Pen SC Not Given QHS [facility] Protocol Insulin Human Lispro 0 unit 10/09/24 22:00 10/12/24 00:21 Insulin Lispro 100 Unit/Ml Insuln.Pen SC Not Given ACHS [facility] Protocol Magnesium Chloride 128 mg 10/09/24 22:00 10/11/24 21:13 Magnesium Chloride 64 Mg Delay Rel.Tablet PO 128 mg BID EVAN Administration Melatonin 3 mg 10/09/24 20:11 Melatonin 3 Mg Tablet PO QHS PRN PRN INSOMNIA Metoprolol Tartrate 100 mg 10/09/24 22:00 10/11/24 21:13 Metoprolol Tartrate 100 Mg Tablet PO 100 mg BID EVAN Administration Protocol Nutritional Formula (Lactose Free) 120 ml 10/10/24 08:00 10/11/24 17:06 Glucerna Shake 120 Ml Liquid PO 120 ml TIDCM EVAN Administration Ondansetron HCl 4 mg 10/09/24 20:11 Ondansetron 4 Mg/2 Ml Vial IV Q8H PRN PRN NAUSEA/VOMITING Sodium Chloride 10 - 40 ml 10/09/24 20:12 10/10/24 11:27 0.9% Saline Lock 10 Ml Syringe IV 10 ml UD PRN Administration SALINE FLUSH Tamsulosin HCl 0.8 mg 10/10/24 10:00 10/11/24 09:39 Tamsulosin Hcl 0.4 Mg Capsule PO 0.8 mg DAILY [facility] Administration Warfarin Sodium 2.5 mg 10/10/24 17:00 10/10/24 16:13 Warfarin 2.5 Mg Tablet PO 2.5 mg SuFrSa@1700 [facility] Administration Warfarin Sodium 5 mg 10/13/24 17:00 Warfarin 5 Mg Tablet PO [id number]@1700 [facility] Medical History Injury of head and neck Cancer Hepatitis Former smoker CPAP (continuous positive airway pressure) dependence Sleep apnea Atrial fibrillation ICD (implantable cardioverter-defibrillator) in place Pacemaker Hypertension Acute calculous cholecystitis Hyperlipemia Diabetic neuropathy HTN (hypertension) Diabetes Home Medications ?Medication ?Instructions ?Recorded ?Last Taken ?Type allopurinol 100 mg tablet 200 mg PO DAILYCM GOUT 05/12/14 10/09/24 History aspirin 81 mg chewable tablet 81 mg PO DAILY@0800 [facility] 05/12/14 10/08/24 History atorvastatin 20 mg tablet 20 mg PO QODAY CHOLESTEROL 05/12/14 10/07/24 History duloxetine 60 mg capsule,delayed 60 mg PO DAILY MOOD 05/12/14 10/09/24 History release hydrochlorothiazide 25 mg tablet 25 mg PO DAILY BP 05/12/14 10/09/24 History insulin glargine 100 unit/mL (3 24 units subcut QHS DM 05/12/14 06/07/21 History mL) subcutaneous pen (Lantus Solostar U-100 Insulin) lisinopril 40 mg tablet 40 mg PO DAILY BP 05/12/14 10/09/24 History potassium chloride 10 mEq 10 meq PO BID SUPPLEMENT 05/12/14 10/09/24 History tablet,extended release (Klor-Con) acetaminophen 500 mg tablet 1,000 mg PO BID PRN Pain 06/09/21 06/09/21 07:00 History amlodipine 5 mg tablet 5 mg PO DAILY BP 06/09/21 10/09/24 History magnesium oxide 400 mg PO BID SUPPLEMENT 06/09/21 10/09/24 History metoprolol tartrate 100 mg tablet 100 mg PO BID HEART 06/09/21 10/09/24 History tamsulosin 0.4 mg capsule 0.8 mg PO DAILY PROSTATE 06/09/21 10/08/24 History warfarin 5 mg tablet 5 mg PO MOTUWETH BLOODTHINNER 06/09/21 10/09/24 History apremilast 30 mg tablet (Otezla) 30 mg PO DAILY ARTHRITIS 10/09/24 10/08/24 History bupropion HCl 150 mg 24 hr tablet, 150 mg PO DAILY MOOD 10/09/24 10/09/24 History extended release clobetasol 0.05 % scalp solution See Rx Instructions topical 10/09/24 10/08/24 History .COMPLEX SCALP gabapentin 600 mg tablet 600 mg PO QHS PAIN 10/09/24 10/08/24 History warfarin 2.5 mg tablet 2.5 mg PO SUFRSA BLOOD THNNER 10/09/24 10/03/24 History Allergy/AdvReac Type Severity Reaction Status Date / Time No Known Allergies Allergy Verified 10/09/24 14:01 Surgical History Status post laparoscopic cholecystectomy (~06/2021) Social History household members: spouse housing: house Smoking Status: Former smoker Review of Systems (Anesthesia) ROS Narrative System reviewed and no additional complaints, except as documented.
[2024-10-12 07:05] LABS: Bedside Glucose 106 mg/dL (74-106)
[2024-10-12] MEDS: Metoprolol Tartrate 100 MG Tablet PO ×2 (07:55→20:39)
[2024-10-12] MEDS: Ceftriaxone 1 GM/50 ML BAG IV (07:56)
--- NOTE | 2024-10-12 09:08 | PCM.CONS.U ---
HPI Consult Data Date of Consult: 10/12/24 HPI Narrative Reason for Consultation: Stone on the left side with obstruction HPI Narrative: YAZAN LOPEZ, is a 74 M who presents for continued infection metabolic encephalopathy found to have a kidney stone the distal left ureter organ to place her cystoscopy and do a left stent placement today in the OR, plan to treat the stone later on as an outpatient with laser lithotripsy. [facility] Medical History Injury of head and neck Cancer Hepatitis Former smoker CPAP (continuous positive airway pressure) dependence Sleep apnea Atrial fibrillation ICD (implantable cardioverter-defibrillator) in place Pacemaker Hypertension Acute calculous cholecystitis Hyperlipemia Diabetic neuropathy HTN (hypertension) Diabetes Home Medications ?Medication ?Instructions ?Recorded ?Last Taken ?Type allopurinol 100 mg tablet 200 mg PO DAILYCM GOUT 05/12/14 10/09/24 History aspirin 81 mg chewable tablet 81 mg PO DAILY@0800 HEALTH 05/12/14 10/08/24 History atorvastatin 20 mg tablet 20 mg PO QODAY CHOLESTEROL 05/12/14 10/07/24 History duloxetine 60 mg capsule,delayed 60 mg PO DAILY MOOD 05/12/14 10/09/24 History release hydrochlorothiazide 25 mg tablet 25 mg PO DAILY BP 05/12/14 10/09/24 History insulin glargine 100 unit/mL (3 24 units subcut QHS DM 05/12/14 06/07/21 History mL) subcutaneous pen (Lantus Solostar U-100 Insulin) lisinopril 40 mg tablet 40 mg PO DAILY BP 05/12/14 10/09/24 History potassium chloride 10 mEq 10 meq PO BID SUPPLEMENT 05/12/14 10/09/24 History tablet,extended release (Klor-Con) acetaminophen 500 mg tablet 1,000 mg PO BID PRN Pain 06/09/21 06/09/21 07:00 History amlodipine 5 mg tablet 5 mg PO DAILY BP 06/09/21 10/09/24 History magnesium oxide 400 mg PO BID SUPPLEMENT 06/09/21 10/09/24 History metoprolol tartrate 100 mg tablet 100 mg PO BID HEART 06/09/21 10/09/24 History tamsulosin 0.4 mg capsule 0.8 mg PO DAILY PROSTATE 06/09/21 10/08/24 History warfarin 5 mg tablet 5 mg PO MOTUWETH BLOODTHINNER 06/09/21 10/09/24 History apremilast 30 mg tablet (Otezla) 30 mg PO DAILY ARTHRITIS 10/09/24 10/08/24 History bupropion HCl 150 mg 24 hr tablet, 150 mg PO DAILY MOOD 10/09/24 10/09/24 History extended release clobetasol 0.05 % scalp solution See Rx Instructions topical 10/09/24 10/08/24 History .COMPLEX SCALP gabapentin 600 mg tablet 600 mg PO QHS PAIN 10/09/24 10/08/24 History warfarin 2.5 mg tablet 2.5 mg PO SUFRSA BLOOD THNNER 10/09/24 10/03/24 History Allergy/AdvReac Type Severity Reaction Status Date / Time No Known Allergies Allergy Verified 10/09/24 14:01 Surgical History Status post laparoscopic cholecystectomy (~06/2021) Social History household members: spouse housing: house Smoking Status: Former smoker Medical Records Data Medical Nutrition Assessment Dietitian: Malnutrition Criteria Met Start: 10/10/24 13:02 Freq: Status: Active Protocol: Document 10/10/24 13:02 SLA (Rec: 10/10/24 13:02 SLA [id number]) Nutrition Malnutrition Evidence of Yes Malnutrition Exists Malnutrition (severe Chronic ): Evidenced By Suboptimal Energy Intake (Severe),Weight Loss (Severe) Clinical Problem Chronic Disease or Condition Related Malnutrition Etiology related to inadequate energy intake Signs/Symptoms as evidenced by po intake meeting < 75% of est nutritional needs and 9.2% unplanned wt loss x 3 months Status Active Problem Recommendation Dietitian Will liberalize diet to CHO Controlled d/t signs and Recommendations/ symptoms of malnutrition Changes Will continue 4 oz glucerna shake tid w/ medpass for increased nutrition if consumed Will provide diet education at time of follow up if desired by pt WIll continue to follow and monitor for changes in pt nutritional status and make additional rec as indicated . Lab / Micro Data 10/12/24 05:46 10/12/24 05:46 Labs: Laboratory Results - last 24 hr 10/11/24 11:14: POC Glucose 134 H 10/11/24 13:32: PT 21.0 H, INR 1.8 10/11/24 16:44: POC Glucose 117 H 10/11/24 23:40: POC Glucose 127 H 10/12/24 05:46: WBC 3.3 L, RBC 3.99 L, Hgb 11.1 L, Hct 34.1 L, MCV 85.5, MCH 27.8, MCHC 32.6, RDW Std Deviation 49.1 H, RDW Coeff of [place] 15.8 H, Plt Count 68 L, MPV 12.0, Immature Gran % (Auto) 0.300, Neut % (Auto) 62.8, Lymph % (Auto) 23.9, [place] % (Auto) 8.5, Eos % (Auto) 3.6, Baso % (Auto) 0.9, Absolute Neuts (auto) 2.1, Absolute Lymphs (auto) 0.79 L, Nucleated RBC % 0, PT 19.8 H, INR 1.6, Sodium 137, Potassium 3.9, Chloride 105, Carbon Dioxide 25.0, Anion Gap 7, BUN 14, Creatinine 1.49 H, Estim Creat Clear Calc 50.44, Est GFR (MDRD) Af Amer 59 L, Est GFR (MDRD) Non-Af 49 L, BUN/Creatinine Ratio 9.4 L, Glucose 96, Calcium 8.6 10/12/24 06:41: POC Glucose 106 Micro: Microbiology 10/09/24 16:28 Urine, Clean Catch Urine Culture - Final Escherichia coli Rhythm Strip Rhythm Strip: afib, vent paced Rate: 70 Ectopy: None
--- NOTE | 2024-10-12 09:26 | PCM.OPRPT ---
Operative Report (Standard) Operative Information Date of Procedure: 10/12/24 Pre-Operative Diagnosis: Obstructing left ureteral calculus Post-Operative Diagnosis: The same Surgery/Procedure Performed: Cystoscopy and left stent placement digital community manager: No Type of Anesthesia: General RN Documented Start/Stop Times: Operation Date: 10/12/24 09:10 Case Time Anesthesia Start 10/12/24 09:07 Into Room 10/12/24 09:07 Procedure Start 10/12/24 09:18 Procedure End 10/12/24 09:25 Procedure Start Time: 09:18 Procedure Stop Time: 09:26 Select all DRAINS/GRAFTS/IMPLANTS that apply: Drains Drain details: Cystoscopy left stent placement Estimated Blood Loss: None Specimen collected: No Description of surgery: Patient was taken back to the operating room after induction of general anesthesia, the patient was placed in dorsolithotomy position. The urethra and genitals were prepped and draped in usual sterile fashion. Using a 21 German rigid cystourethroscope the entire length of the urethra was normal then went into the bladder. Identified the trigone the left and right ureteral orifice. I then cannulated the left ureteral orifice and advanced a wire up into the kidney. I then backloaded a 5 German open ended catheter over the wire and injected contrast to delineate the anatomy. After the retrograde was performed I then used fluoroscopic images and guidance to advanced a wire up into the kidney and over the 0.038 glidewire I advanced a 6 German by 26 cm double pigtail stent. I then pulled the 0.038 Glidewire off and the stent coiled in the kidney bladder good position. The bladder was then drained. We confirmed the position of the stent by fluoroscopy. Patient anesthetic was reversed and was taken back to the PACU in good condition. Surgical Findings: Stones obstructed causing obstruction in the distal left ureter Complications Complications: No Admit VTE Documentation VTE Present on Admission: No VTE Mechan Device Prophylaxis: SCD's VTE Pharm Prophylaxis ordered?: No
--- NOTE | 2024-10-12 10:00 | PCM.POST.ANE ---
Anesthesia: Postop Eval I Current Vital Signs Temperature: 98.5 F Pulse Rate: 70 Blood Pressure: 114/72 Respiratory Rate: 16 Pulse Ox: 70 Assessment Airway patent: Yes Spontaneous unlabored respirations: Yes nausea: No Vomiting: No Anesthesia Complication: No Fluid Hydration Crystalloid volume administer (ml): 100 Total IV fluid infused: 100 Progress Note Anesthesia document: Postop Eval 1 completed: Yes
--- NOTE | 2024-10-12 10:03 | PCM.POSTANE2 ---
Anesthesia Postop Eval I Sum Postop Eval Completion status Anesthesia document: Postop Eval 1 completed: Yes Anesthesia Postop Eval I Summary Anesthesia Postop Eval I Summary: Anesthesia Postop Eval I: Assessment Summary Airway patent Yes 10/12/24 10:02 Spontaneous unlabored Yes 10/12/24 10:02 respirations Mental status nausea No 10/12/24 10:02 Vomiting No 10/12/24 10:02 Anesthesia Postop Eval I: Fluid Summary Crystalloid volume administer 100 10/12/24 10:02 (ml) Colloids volume administered ( ml) Blood Product volume administered (ml) Total IV fluid infused 100 10/12/24 10:02 Anesthesia Postop Eval I: Summary Notes Anesthesia Complication No 10/12/24 10:02 Anesthesia Complication Comment: Post-operative progress note Anesthesia: Postop Eval II Evaluation Mental status: Awake Pain Level: 0 nausea: No Vomiting: No
[2024-10-12 11:10] LABS: Bedside Glucose 97 mg/dL (74-106)
--- NOTE | 2024-10-12 12:34 | PN.HOSP_ITS ---
Reason for Visit Reason for Visit: Diagnoses Chronic atrial fibrillation, unspecified (10/09/24) Calculus of ureter (10/09/24) Urinary tract infection, site not specified (10/09/24) Weakness (10/09/24) Objective Data Objective Data Vital Signs: Vital Signs Temp Pulse Resp BP Pulse Ox O2 Del Method O2 Flow Rate 97.6 F L 72 18 139/82 H 98 Room Air 2 10/12/24 10:45 10/12/24 10:45 10/12/24 10:45 10/12/24 10:45 10/12/24 10:45 10/12/24 10:45 10/12/24 09:50 FiO2 3 10/12/24 07:01 Oxygen Flow Rate (L/min) 2 Oxygen Delivery Method Room Air Weight: 218 lb 0.595 oz Body Mass Index (BMI) 32.1 Intake & Output: Intake and Output for Last 24 Hours 10/10/24 10/11/24 10/12/24 23:59 23:59 23:59 Intake Total 900 / 1000 390 / 590 250 / 250 Output Total 0 / 0 Balance 900 / 1000 390 / 590 250 / 250 Medical Nutrition Assessment Dietitian: Malnutrition Criteria Met Start: 10/10/24 13:02 Freq: Status: Active Protocol: Document 10/10/24 13:02 SLA (Rec: 10/10/24 13:02 SLA [id number]) Nutrition Malnutrition Evidence of Yes Malnutrition Exists Malnutrition (severe Chronic ): Evidenced By Suboptimal Energy Intake (Severe),Weight Loss (Severe) Clinical Problem Chronic Disease or Condition Related Malnutrition Etiology related to inadequate energy intake Signs/Symptoms as evidenced by po intake meeting < 75% of est nutritional needs and 9.2% unplanned wt loss x 3 months Status Active Problem Recommendation Dietitian Will liberalize diet to CHO Controlled d/t signs and Recommendations/ symptoms of malnutrition Changes Will continue 4 oz glucerna shake tid w/ medpass for increased nutrition if consumed Will provide diet education at time of follow up if desired by pt WIll continue to follow and monitor for changes in pt nutritional status and make additional rec as indicated . Lab / Micro Data 10/12/24 05:46 10/12/24 05:46 Labs: Laboratory Results - last 24 hr 10/11/24 13:32: PT 21.0 H, INR 1.8 10/11/24 16:44: POC Glucose 117 H 10/11/24 23:40: POC Glucose 127 H 10/12/24 05:46: WBC 3.3 L, RBC 3.99 L, Hgb 11.1 L, Hct 34.1 L, MCV 85.5, MCH 27.8, MCHC 32.6, RDW Std Deviation 49.1 H, RDW Coeff of Montrell 15.8 H, Plt Count 68 L, MPV 12.0, Immature Gran % (Auto) 0.300, Neut % (Auto) 62.8, Lymph % (Auto) 23.9, Rowan % (Auto) 8.5, Eos % (Auto) 3.6, Baso % (Auto) 0.9, Absolute Neuts (auto) 2.1, Absolute Lymphs (auto) 0.79 L, Nucleated RBC % 0, PT 19.8 H, INR 1.6, Sodium 137, Potassium 3.9, Chloride 105, Carbon Dioxide 25.0, Anion Gap 7, BUN 14, Creatinine 1.49 H, Estim Creat Clear Calc 50.44, Est GFR (MDRD) Af Amer 59 L, Est GFR (MDRD) Non-Af 49 L, BUN/Creatinine Ratio 9.4 L, Glucose 96, Calcium 8.6 10/12/24 06:41: POC Glucose 106 10/12/24 10:41: POC Glucose 97 Micro: Microbiology 10/09/24 16:28 Urine, Clean Catch Urine Culture - Final Escherichia coli 10/09/24 15:02 Mucosa - Nose SARS-CoV-2, Influenza & RSV (PCR) - Final Rhythm Strip Rhythm Strip: afib, vent paced Rate: 70 Ectopy: None Physical Exam Narrative Seen and examined. CT abdomen pelvis was reviewed and left UVJ stone confirmed. Patient had cystoscopy with left ureteric stent inserted. Patient looks chronically physically deconditioned. Still requires 2 people Physical exam General: Alert, Oriented x3, Cooperative HEENT: Atraumatic, PERRLA, EOMI, Normocephalic Oral: No Gingival or Mucosal Lesions/ Ulcerations Neck: Supple, No JVD, Negative Carotid Bruits Chest wall/Lungs: Left upper chest wall pacemaker. Air entry diminished in bilateral lung bases. No crepitation/rhonchi Cardiovascular: Regular rate, Regular Rhythm, Normal S1, Normal S2, No M/G/R Abdomen: Bowel Sounds Present, Soft, Non Tender, Non-Distended : No dysuria. No renal angle tenderness. No suprapubic tenderness. Extremities: Mild edema, Capillary Refill Less than 3 Seconds Skin: No rashes, No breakdown Musculoskeletal: Muscle strength 4/5 at right knees and hip, 4+/5 at left knee and hip. Unsteady gait. No Tenderness to Palpation of Joints or Extremities Neurological: Cranial nerves II-XII grossly intact, DTR 2+/4. No acute focal neurological deficit. Psych/Mental Status: Normal Affect, Appropriate. Assessment & Plan Assessment/Plan (1) Weakness: (2) Acute UTI: (3) Atrial fibrillation, chronic: PLAN: Plan Patient is a 74-year-old male who presented [facility] ED on 10/09/2024 with worsening fatigue with weakness and falls. Patient also has weight loss for several weeks to months. Patient stated he cannot dress himself. 1. Acute on chronic debility with falls, exact etiology unclear, concern for UTI ? Admit under patient status to [facility]. PT/OT/case management consulted. 2. Suspected acute cystitis Patient denies acute urinary tract symptoms including burning micturition. Has chronic irritative and obstructive symptoms due to BPH. Urine culture shows GNR lactose senior software analyst 80,000?100,000 colonies. UA WBC casts 0-5 cells, bacteria 4+, WBC 25-50 cell, LE 500. Nitrite positive. On IV ceftriaxone. Renal ultrasound shows questionable 1 x 0.5 x 0.3 cm calculus distal left ureter but patient does not have abdominal pain. 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 10/11: CT abdomen/pelvis reviewed. Shows obstructing left UVJ stone, 7 mm with no evidence of hydroureter or hydronephrosis. Superior pole hypodense mass in left kidney measuring 4.3 cm. Left kidney superior pole?reported hypodense mass 4.3 cm which corresponds to 4.2 cm cyst with septation as reported in ultrasound. Urologist consult reviewed and appreciated. Plan for cystoscopy tomorrow. 10/12: Patient had cystoscopy and left retrograde stent inserted today. Tolerated the procedure well. Continue IV antibiotic. Plan to treat the stone as an outpatient with laser lithotripsy. 3. Chronic A-fib on warfarin, hypertension, hyperlipidemia ? INR subtherapeutic at 1.5 on admit. Gave dose of therapeutic Lovenox and will continue warfarin at home dosing 10/10: INR 1.9. Follow-up a.m. INR. Mildly hypertensive in the ED to 130s to 140s systolic. Will continue home Lopressor and amlodipine but hold home lisinopril and hydrochlorothiazide for now, can restart as needed. Continue home statin. 10/11: INR pending. Hold warfarin for tonight for procedure tomorrow. 10/12 INR 1.6. Warfarin resumed. Chronic medical conditions: ? Class I obesity: BMI 32 on admit. Complicates hospital course, care and prognosis. ? Type 2 diabetes mellitus with neuropathy: Will treat with reduced dose of Lantus 15 units at night and sliding scale insulin with meals, adjust as needed. Continue home gabapentin. ? History of gout: Continue home allopurinol. ? Arthritis: Continue home apremilast. ? Depression/anxiety: Continue home bupropion and duloxetine. ? BPH with obstructive symptoms: Continue home Flomax. ? S/p pacemaker with ICD placement DVT prophylaxis: Not indicated, on warfarin CODE STATUS: Full code, verified 10/09/24 16:28 Urine, Clean Catch Urine Culture - Preliminary GNR lactose senior software analyst 10/09/24 15:02 Mucosa - Nose SARS-CoV-2, Influenza & RSV (PCR) - Final Charges/Coding Visit Charges Inpatient E&M: 36289 Subs Hosp L2
[2024-10-12] MEDS: Allopurinol 100 MG Tablet 200 MG PO (14:20)
[2024-10-12] MEDS: Aspirin 81 MG TAB.CHEW PO (14:20)
[2024-10-12] MEDS: Tamsulosin HCl 0.4 MG Capsule 0.8 MG PO (14:21)
[2024-10-12] MEDS: DULoxetine Hcl 60 MG Capsule PO (14:31)
[2024-10-12] MEDS: buPROPion (XL) 150 MG TABLET.XL PO (14:32)
[2024-10-12] MEDS: Atorvastatin Calcium 20 MG Tablet PO (14:32)
--- NOTE | 2024-10-12 14:49 | NURSING ---
pt only voided small amt. This RN bladder scanned post void and obtained 312cc. This pt gave pt his flomax that was not given this morning due to being npo for surgery. Will wait another hour or so and then bladder scan pt again.
[2024-10-12 17:38] LABS: Bedside Glucose 131 mg/dL (74-106)
[2024-10-12] MEDS: Gabapentin 600 MG Tablet PO (20:38)
[2024-10-12] MEDS: Magnesium Chloride 64 MG Delay Rel.Tablet 128 MG PO (20:38)
[2024-10-12 23:11] LABS: Bedside Glucose 136 mg/dL (74-106)
[2024-10-13 02:30] VITALS: BP 141/87; PULSE 74; RESP 18; TEMP 36.2; O2SAT 99
[2024-10-13 06:38] LABS: Absolute Lymphocyte Count 0.68 X10^3/uL (0.83-4.51); Basophil# 0.02 X10^3/uL; Basophil% 0.5 % (0-1); Eosinophil# 0.08 X10^3/uL; Eosinophils% 1.9 % (0-5); Hematocrit 34.3 % (40-54); Hemoglobin 10.8 g/dL (13.0-16.5); Lymphocyte # 0.68 X10^3/ul (0.83-4.51); Lymphocyte % 16.4 % (19-41); Mean Corp Hgb Conc 31.5 g/dL (32-36); Mean Corpuscular Hgb 27.2 pg (27.0-32.0); Mean Corpuscular Volume 86.4 fL (80-94); Mean Platelet Vol. 11.9 fl (6.2-12.0); Monocyte# 0.32 X10^3/uL; Monocyte% 7.7 % (0-10); NRBC Flagged by Analyzer 0 % (0-5); Neutrophil # 3.03 X10^3/uL (2.7-7.7); Neutrophil % 73.3 % (47-70); POSITIVE COUNT YES; Platelet Count 60 K/mm3 (150-450); RBC Distribution Width CV 15.5 % (11.6-14.6); RBC Distribution Width SD 49.2 fl (35.1-43.9); Red Blood Count 3.97 M/mm3 (4.6-6.2); White Blood Count 4.1 K/mm3 (4.4-11.0)
[2024-10-13 07:03] LABS: Bedside Glucose 98 mg/dL (74-106)
[2024-10-13 07:19] LABS: International Normalized Ratio 1.3; Prothrombin Time (Protime)PT. 16.5 SECONDS (11.7-14.9)
[2024-10-13 08:00] LABS: Anion Gap 6 (5-15); BUN 12 mg/dL (7-18); BUN/Creat Ratio 7.7 RATIO (10-20); Calcium,Total 8.6 mg/dL (8.5-10.1); Chloride 106 mmol/L (98-107); Creatinine, Serum 1.56 mg/dL (0.70-1.30); EST Glomerular Filtration Rate 46 mL/min (>60); Est Glom Filt Rate - Afr Amer 56 mL/min (>60); Estimated Creatinine Clearance 48.17 ml/min; Glucose 99 mg/dL (74-106); Potassium 3.8 mmol/L (3.5-5.1); Sodium Level 137 mmol/L (136-145)
[2024-10-13] MEDS: Glucerna Shake 120 ML LIQUID PO (08:24)
[2024-10-13] MEDS: Allopurinol 100 MG Tablet 200 MG PO (08:24)
[2024-10-13] MEDS: Aspirin 81 MG TAB.CHEW PO (08:24)
--- NOTE | 2024-10-13 09:23 | NURSING ---
to antionette verbalized concern that she thinks she left a purse in the visitor bathroom yesterday before leaving around 5:30/6:00p. unable to locate a purse on the unit or in the patient's room. security and HRO called as visitor states there was a handgun in the purse. this nurse touched base with Dagmar LOPEZ and TT [employer] ATTENDANT from yesterday, neither staff member could recall seeing purse on visitor. Visitor left to go search her car and house, HRO and security to review security cameras.
[2024-10-13] MEDS: Ceftriaxone 1 GM/50 ML BAG IV (09:52)
[2024-10-13] MEDS: DULoxetine Hcl 60 MG Capsule PO (09:52)
[2024-10-13] MEDS: 0.9% Saline Lock 10 ML Syringe IV (09:52)
[2024-10-13 09:54] VITALS: PULSE 79
[2024-10-13] MEDS: Metoprolol Tartrate 100 MG Tablet PO (09:54)
[2024-10-13] MEDS: Tamsulosin HCl 0.4 MG Capsule 0.8 MG PO (09:54)
[2024-10-13] MEDS: Atorvastatin Calcium 20 MG Tablet PO (09:54)
[2024-10-13] MEDS: Magnesium Chloride 64 MG Delay Rel.Tablet 128 MG PO (09:55)
[2024-10-13] MEDS: buPROPion (XL) 150 MG TABLET.XL PO (09:56)
[2024-10-13] MEDS: amLODIPine 5 MG Tablet PO (09:57)
--- NOTE | 2024-10-13 10:07 | NURSING ---
aware pt's has located her purse and left these belongins in vehicle.
--- NOTE | 2024-10-13 11:36 | CASEMGMT ---
RN CM into pt room, pt has decided that he wants to have therapy at [facility]. He and his would like this RN CM to set it up and prefers afternoon appts. Pt states he has not had a zafar catheter in the past but thinks he will be fine to manage this at home with his . Pt aware that nurse will review instructions and care for it should he need to dc home with the zafar. Pt and deny further needs at this time. TC to [facility], scheduled pt PT and OT on 10/20/24 at 3pm for OT with Matilde and 4pm for PT with Arsh. Added to pt dc instructions and pt and aware.
--- NOTE | 2024-10-13 11:38 | DCINST_ITS ---
Discharge Instructions DC O2, CPAP, BIPAP needs Home O2 Discharge instructions: No Follow Up Care Test Results: Test results from this visit will be discussed in further detail at your follow- up appointment, if applicable. Discharge Plan Admission Admit Date/Time: 10/09/24 18:30 Primary Reason for Your Visit: UTI, left UVJ obstructed stone status post left ureteral stent Attending Provider: Sd Chatman Primary Care Provider: Dee Chawla Consulting Providers: Lv Pink; Jose Armando Erickson Instructions Additional Instructions / Restrictions: Patient needs BMP and INR in 2 days. Discharge Orders/Prescriptions Prescriptions: New ciprofloxacin HCl [Cipro] 500 mg tablet 500 mg PO BID 3 Days Qty: 6 0RF Continued atorvastatin 20 MG tablet 20 mg PO QODAY potassium chloride [Klor-Con 10] 10 MEQ tablet extended release 10 meq PO BID allopurinol 100 MG tablet 200 mg PO DAILYCM aspirin 81 MG tablet,chewable 81 mg PO DAILY@0800 duloxetine 60 MG capsule 60 mg PO DAILY metoprolol tartrate 100 mg tablet 100 mg PO BID Patient Comments: TAKE 1 TABLET BY MOUTH TWICE DAILY amlodipine 5 mg tablet 5 mg PO DAILY Patient Comments: TAKE 1 TABLET BY MOUTH ONCE DAILY acetaminophen 500 mg Tablet 1,000 mg PO BID PRN (Reason: Pain) tamsulosin 0.4 mg capsule 0.8 mg PO DAILY Patient Comments: TAKE 2 CAPSULES BY MOUTH ONCE DAILY warfarin 5 mg tablet 5 mg PO MOTUWETH Patient Comments: TAKE 1 TABLET BY MOUTH ONCE DAILY magnesium oxide 400 mg magnesium tablet 400 mg PO BID Patient Comments: TAKE 1 TABLET BY MOUTH TWICE DAILY gabapentin 600 mg tablet 600 mg PO QHS warfarin 2.5 mg tablet 2.5 mg PO SUFRSA clobetasol 0.05 % solution See Rx Instructions TOPICAL .COMPLEX Patient Comments: APPLY TO THE SCALP ONCE DAILY IN THE EVENING FOR 2 WEEKS. RINSE OFF IN THE MORNING. TAKE ONE WEEK OFF BEFORE RESUMING NEEDED FOR FLARES. Rx Instructions: APPLY TO THE SCALP ONCE DAILY IN THE EVENING FOR 2 WEEKS. RINSE OFF IN THE MORNING. TAKE ONE WEEK OFF BEFORE RESUMING NEEDED FOR FLARES. topically; bupropion HCl 150 mg tablet extended release 24 hr 150 mg PO DAILY Otezla 30 mg tablet 30 mg PO DAILY Changed insulin glargine [Lantus Solostar U-100 Insulin] 100 UNITS/ML insulin pen 12 unit subcut QHS 30 Days Qty: 0 0RF Rx Instructions: Hold if glucose less than 130 mg/dl Held hydrochlorothiazide 25 MG tablet 25 mg PO DAILY Hold Instructions: Hold for 1 week and restart at lower dose 12.5 mg daily. lisinopril 40 MG tablet 40 mg PO DAILY Hold Instructions: Hold for 1 week and follow with BMP with PCP Referrals / Follow Up: Dee Chawla MD [Primary Care Provider] - 10/17/24 11:40 am Jose Armando Erickson MD [Med Staff - Active Staff] - Within 1 Week (For lithotripsy treatment of left UVJ stone.) Disposition Discharge Orders: Discharge Patient (Routine); Ordered 10/13/24 Ordered By: Dr. Sd Chatman
[2024-10-13 12:35] LABS: Bedside Glucose 119 mg/dL (74-106)
--- NOTE | 2024-10-13 12:52 | DS.PCM_ITS ---
Providers Date of Admission: 10/09/24 Date of Discharge: 10/13/24 Primary Care Physician: Dr. Dee Chawla MD Consultations 10/10/24 15:52 Consult: Urology Routine Consulting Provider: Jose Armando Erickson Reason for Consult: Suspicion of distal left ureteric stone EMERGENT Consult: No MD Notified: Yes Date Notified: 10/10/24 Time Notified: 15:52 Method of Notification: Text Reason For Visit: UTI,ADULT FAILURE TO THRIVE Diagnosis Discharge Diagnosis (1) Weakness: Status: Acute Code(s): R53.1 - Weakness (2) Acute UTI: Status: Acute Code(s): N39.0 - Urinary tract infection, site not specified (3) Atrial fibrillation, chronic: Status: Chronic Code(s): I48.20 - Chronic atrial fibrillation, unspecified Plan Patient is a 74-year-old male who presented [facility] ED on 10/09/2024 with worsening fatigue with weakness and falls. Patient also has weight loss for several weeks to months. Patient stated he cannot dress himself. 1. Acute on chronic debility with falls, exact etiology unclear, concern for UTI ? [facility] PT/OT/case management consulted. 2 : Patient did well with the physical therapy and walked today. Therefore discharged home with home PT 2. Suspected acute cystitis Patient denies acute urinary tract symptoms including burning micturition. Has chronic irritative and obstructive symptoms due to BPH. Urine culture shows GNR lactose product manager medical device 80,000?100,000 colonies. UA WBC casts 0-5 cells, bacteria 4+, WBC 25-50 cell, LE 500. Nitrite positive. On IV ceftriaxone. Renal ultrasound shows questionable 1 x 0.5 x 0.3 cm calculus distal left ureter but patient does not have abdominal pain. 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 10/11: CT abdomen/pelvis reviewed. Shows obstructing left UVJ stone, 7 mm with no evidence of hydroureter or hydronephrosis. Superior pole hypodense mass in left kidney measuring 4.3 cm. Left kidney superior pole?reported hypodense mass 4.3 cm which corresponds to 4.2 cm cyst with septation as reported in ultrasound. Urologist consult reviewed and appreciated. Plan for cystoscopy tomorrow. 2: Patient had cystoscopy and left retrograde stent inserted today. Tolerated the procedure well. Continue IV antibiotic. Plan to treat the stone as an outpatient with laser lithotripsy. [address] Erickson. Discontinue Kang catheter. If portion voids spontaneously then good otherwise repeat Kang catheter and discharged home with Kang catheter and follow-up in the office. Patient discharged on Cipro 500 mg twice daily. His INR is subtherapeutic, 1.3 but with Cipro expected to increase INR. Follow-up INR in 2 days with PCP and adjust the dose of warfarin accordingly. 3. Chronic A-fib on warfarin, hypertension, hyperlipidemia ? INR subtherapeutic at 1.5 on admit. Gave dose of therapeutic Lovenox and will continue warfarin at home dosing 10/10: INR 1.9. Follow-up a.m. INR. Mildly hypertensive in the ED to 130s to 140s systolic. Will continue home Lopressor and amlodipine but hold home lisinopril and hydrochlorothiazide for now, can restart as needed. Continue home statin. 10/11: INR pending. Hold warfarin for tonight for procedure tomorrow. 10/12 INR 1.6. Warfarin resumed. 10/13: As mentioned above. Chronic medical conditions: ? Class I obesity: BMI 32 on admit. Complicates hospital course, care and prognosis. ? Type 2 diabetes mellitus with neuropathy: Will treat with reduced dose of Lantus 15 units at night and sliding scale insulin with meals, adjust as needed. Continue home gabapentin. ? History of gout: Continue home allopurinol. ? Arthritis: Continue home apremilast. ? Depression/anxiety: Continue home bupropion and duloxetine. ? BPH with obstructive symptoms: Continue home Flomax. ? S/p pacemaker with ICD placement DVT prophylaxis: Not indicated, on warfarin CODE STATUS: Full code, verified Discharge medication reconciliation done. Discharge follow-up instructions completed. Discharge process discussed with the patient and all questions were answered to patient's satisfaction. Follow with PCP in 1 to 2 weeks Total time spent, exact 35 minutes on discharge meds reconciliation, examination, coordination of care with nurses and ancillary staff, review of imaging and blood test and discussion with the patient on follow-up instructions. Medications at Discharge Home Medications allopurinol 100 mg tablet 200 mg PO DAILYCM GOUT 05/12/14 aspirin 81 mg chewable tablet 81 mg PO DAILY@0800 HEALTH 05/12/14 atorvastatin 20 mg tablet 20 mg PO QODAY CHOLESTEROL 05/12/14 duloxetine 60 mg capsule,delayed release 60 mg PO DAILY MOOD 05/12/14 hydrochlorothiazide 25 mg tablet 25 mg PO DAILY BP 05/12/14 Held on 10/13/24. Instructions: Hold for 1 week and restart at lower dose 12.5 mg daily. lisinopril 40 mg tablet 40 mg PO DAILY BP 05/12/14 Held on 10/13/24. Instructions: Hold for 1 week and follow with BMP with PCP potassium chloride 10 mEq tablet,extended release (Klor-Con) 10 meq PO BID SUPPLEMENT 05/12/14 acetaminophen 500 mg tablet 1,000 mg PO BID PRN Pain 06/09/21 amlodipine 5 mg tablet 5 mg PO DAILY BP 06/09/21 magnesium oxide 400 mg PO BID SUPPLEMENT 06/09/21 metoprolol tartrate 100 mg tablet 100 mg PO BID HEART 06/09/21 tamsulosin 0.4 mg capsule 0.8 mg PO DAILY PROSTATE 06/09/21 warfarin 5 mg tablet 5 mg PO MOTUWETH BLOODTHINNER 06/09/21 apremilast 30 mg tablet (Otezla) 30 mg PO DAILY ARTHRITIS 10/09/24 bupropion HCl 150 mg 24 hr tablet, extended release 150 mg PO DAILY MOOD 10/09/24 clobetasol 0.05 % scalp solution See Rx Instructions topical .COMPLEX SCALP 10/09/24 gabapentin 600 mg tablet 600 mg PO QHS PAIN 10/09/24 warfarin 2.5 mg tablet 2.5 mg PO SUFRSA BLOOD THNNER 10/09/24 ciprofloxacin HCl 500 mg tablet (Cipro) 500 mg PO BID 3 days #6 tabs 10/13/24 insulin glargine 100 unit/mL (3 mL) subcutaneous pen (Lantus Solostar U-100 Insulin) 12 unit (0.12 mL) subcut QHS DM 30 days #0 mL 10/13/24 Physical Exam Narrative Seen and examined. Patient had left UVJ stent on 10/12/2024. CT abdomen pelvis was reviewed and left UVJ stone confirmed. Patient walked with the help of the physical therapy. Physical exam General: Alert, Oriented x3, Cooperative HEENT: Atraumatic, PERRLA, EOMI, Normocephalic Oral: No Gingival or Mucosal Lesions/ Ulcerations Neck: Supple, No JVD, Negative Carotid Bruits Chest wall/Lungs: Left upper chest wall pacemaker. Air entry diminished in bilateral lung bases. No crepitation/rhonchi Cardiovascular: Regular rate, Regular Rhythm, Normal S1, Normal S2, systolic murmur Abdomen: Bowel Sounds Present, Soft, Non Tender, Non-Distended :Kang catheter dark urine. No renal angle tenderness. No suprapubic tenderness. Extremities: Mild edema, Capillary Refill Less than 3 Seconds Skin: No rashes, No breakdown Musculoskeletal: Muscle strength 4/5 at right knees and hip, 4+/5 at left knee and hip. Unsteady gait. No Tenderness to Palpation of Joints or Extremities Neurological: Cranial nerves II-XII grossly intact, DTR 2+/4. No acute focal neurological deficit. Psych/Mental Status: Normal Affect, Appropriate. Medical Records Data Medical Nutrition Assessment Dietitian: Malnutrition Criteria Met Start: 10/10/24 13:02 Freq: Status: Active Protocol: Document 10/10/24 13:02 SLA (Rec: 10/10/24 13:02 SLA [email or web address]) Nutrition Malnutrition Evidence of Yes Malnutrition Exists Malnutrition (severe Chronic ): Evidenced By Suboptimal Energy Intake (Severe),Weight Loss (Severe) Clinical Problem Chronic Disease or Condition Related Malnutrition Etiology related to inadequate energy intake Signs/Symptoms as evidenced by po intake meeting < 75% of est nutritional needs and 9.2% unplanned wt loss x 3 months Status Active Problem Recommendation Dietitian Will liberalize diet to CHO Controlled d/t signs and Recommendations/ symptoms of malnutrition Changes Will continue 4 oz glucerna shake tid w/ medpass for increased nutrition if consumed Will provide diet education at time of follow up if desired by pt WIll continue to follow and monitor for changes in pt nutritional status and make additional rec as indicated . Weight / BMI Weight Weight: 218 lb 0.595 oz Body Mass Index (BMI) 32.1 ABG / Lab / Microbiology Data 10/13/24 06:15 10/13/24 06:15 Laboratory: Laboratory Results - last 24 hr 10/12/24 17:15: POC Glucose 131 H 10/12/24 20:42: POC Glucose 136 H 10/13/24 06:05: POC Glucose 98 10/13/24 06:15: WBC 4.1 L, RBC 3.97 L, Hgb 10.8 L, Hct 34.3 L, MCV 86.4, MCH 27.2, MCHC 31.5 L, RDW Std Deviation 49.2 H, RDW Coeff of [place]rell 15.5 H, Plt Count 60 L, MPV 11.9, Immature Gran % (Auto) 0.200, Neut % (Auto) 73.3 H, Lymph % (Auto) 16.4 L, [place] % (Auto) 7.7, Eos % (Auto) 1.9, Baso % (Auto) 0.5, Absolute Neuts (auto) 3.0, Absolute Lymphs (auto) 0.68 L, Nucleated RBC % 0, PT 16.5 H, INR 1.3, Sodium 137, Potassium 3.8, Chloride 106, Carbon Dioxide 24.0, Anion Gap 6, BUN 12, Creatinine 1.56 H, Estim Creat Clear Calc 48.17, Est GFR (MDRD) Af Amer 56 L, Est GFR (MDRD) Non-Af 46 L, BUN/Creatinine Ratio 7.7 L, Glucose 99, Calcium 8.6 10/13/24 12:01: POC Glucose 119 H Microbiology: Microbiology 10/09/24 16:28 Urine, Clean Catch Urine Culture - Final Escherichia coli 10/09/24 15:02 Mucosa - Nose SARS-CoV-2, Influenza & RSV (PCR) - Final Radiography Diagnostic Testing: Radiology Impression Brain CT 10/10/24 17:00 IMPRESSION: 1. Chronic microvascular ischemic changes. 2. No acute intracranial abnormalities are demonstrated. 3. Age-appropriate senescent changes. Reading Location: [facility] Instructions DC O2, CPAP, BIPAP Needs PSN CPAP & BiPAP: BiPAP & CPAP Settings per PSN Mode CPAP 10/13/24 02:10 Bipap Delivery Device Face Mask 10/13/24 02:10 BiPAP Expiratory Pressure 14 10/13/24 02:10 Fraction of Inspired Oxygen ( 3 10/12/24 07:01 FIO2) Total Flow Rate 3 10/13/24 02:10 Home O2 Discharge instructions: No Meaningful Use Info Meaningful Use Meaningful Use Diagnoses (Choose all that apply): None applicable Ischemic Stroke Statin Dosing Therapy Reference: STATIN DOSE THERAPY REFERENCE: * Patients > 75 years receive moderate or high dose statin therapy. * Patients 75 years or YOUNGER should receive HIGH intensity statin dose unless contraindicated. You will be required to document reason for non-treatment if statin daily dose does not meet guidelines. HIGH DOSE STATIN THERAPY DAILY Atorvastatin > than or = to 40 mg Rosuvastatin > than or = to 20 mg Amlodipine + Atorvastatin > than or = to 2.5/40 mg Ezetimibe + Simvastatin 10/80 mg Simvastatin 80mg Discharge Plan Admission Admit Date/Time: 10/09/24 18:30 Primary Reason for Your Visit: UTI, left UVJ obstructed stone status post left ureteral stent Attending Provider: Sd Cahtman Primary Care Provider: Dee Chawla Consulting Providers: Lv Pink; Jose Armando Erickson Instructions Additional Instructions / Restrictions: Patient needs BMP and INR in 2 days. Discharge Orders/Prescriptions Prescriptions: New ciprofloxacin HCl [Cipro] 500 mg tablet 500 mg PO BID 3 Days Qty: 6 0RF Continued atorvastatin 20 MG tablet 20 mg PO QODAY potassium chloride [Klor-Con 10] 10 MEQ tablet extended release 10 meq PO BID allopurinol 100 MG tablet 200 mg PO DAILYCM aspirin 81 MG tablet,chewable 81 mg PO DAILY@0800 duloxetine 60 MG capsule 60 mg PO DAILY metoprolol tartrate 100 mg tablet 100 mg PO BID Patient Comments: TAKE 1 TABLET BY MOUTH TWICE DAILY amlodipine 5 mg tablet 5 mg PO DAILY Patient Comments: TAKE 1 TABLET BY MOUTH ONCE DAILY acetaminophen 500 mg Tablet 1,000 mg PO BID PRN (Reason: Pain) tamsulosin 0.4 mg capsule 0.8 mg PO DAILY Patient Comments: TAKE 2 CAPSULES BY MOUTH ONCE DAILY warfarin 5 mg tablet 5 mg PO MOTUWETH Patient Comments: TAKE 1 TABLET BY MOUTH ONCE DAILY magnesium oxide 400 mg magnesium tablet 400 mg PO BID Patient Comments: TAKE 1 TABLET BY MOUTH TWICE DAILY gabapentin 600 mg tablet 600 mg PO QHS warfarin 2.5 mg tablet 2.5 mg PO SUFRSA clobetasol 0.05 % solution See Rx Instructions TOPICAL .COMPLEX Patient Comments: APPLY TO THE SCALP ONCE DAILY IN THE EVENING FOR 2 WEEKS. RINSE OFF IN THE MORNING. TAKE ONE WEEK OFF BEFORE RESUMING NEEDED FOR FLARES. Rx Instructions: APPLY TO THE SCALP ONCE DAILY IN THE EVENING FOR 2 WEEKS. RINSE OFF IN THE MORNING. TAKE ONE WEEK OFF BEFORE RESUMING NEEDED FOR FLARES. topically; bupropion HCl 150 mg tablet extended release 24 hr 150 mg PO DAILY Otezla 30 mg tablet 30 mg PO DAILY Changed insulin glargine [Lantus Solostar U-100 Insulin] 100 UNITS/ML insulin pen 12 unit subcut QHS 30 Days Qty: 0 0RF Rx Instructions: Hold if glucose less than 130 mg/dl Held hydrochlorothiazide 25 MG tablet 25 mg PO DAILY Hold Instructions: Hold for 1 week and restart at lower dose 12.5 mg daily. lisinopril 40 MG tablet 40 mg PO DAILY Hold Instructions: Hold for 1 week and follow with BMP with PCP Referrals / Follow Up: Dee Chawla MD [Primary Care Provider] - 10/17/24 11:40 am Jose Armando Erickson MD [Med Staff - Active Staff] - Within 1 Week (For lithotripsy treatment of left UVJ stone.) Disposition Discharge Orders: Discharge Patient (Routine); Ordered 10/13/24 Ordered By: Dr. Sd Chatman Charges/Coding Visit Charges Inpatient E&M: 27208 Disch Hosp >30min
== END 2024-10-13 15:30 | disposition home or self-care (01) | DRG 659 ==
LOC: ED 18:40 → MS3 18:50
PROVIDERS: Nurse Practitioner; Urology; Admitting Provider Hospitalist; Emergency Provider Emergency Medicine; PCP Internal Medicine; Visit Provider Internal Medicine
PROC: 0TJB8ZZ Inspection of Bladder, Via Natural or Artificial Opening Endoscopic (ICD-10-PCS; CPT 52000; principal; 2024-10-12 09:00)
DX: N30.00 Acute cystitis without hematuria (principal); E43 Unspecified severe protein-calorie malnutrition; N13.2 Hydronephrosis with renal and ureteral calculous obstruction; N20.1 Calculus of ureter; I48.20 Chronic atrial fibrillation, unspecified; K74.60 Unspecified cirrhosis of liver; E11.40 Type 2 diabetes mellitus with diabetic neuropathy, unspecified; I10 Essential (primary) hypertension; F32.A Depression, unspecified; Z68.32 Body mass index [BMI] 32.0-32.9, adult; F41.9 Anxiety disorder, unspecified; E78.5 Hyperlipidemia, unspecified; M19.90 Unspecified osteoarthritis, unspecified site; Z79.4 Long term (current) use of insulin; K57.30 Diverticulosis of large intestine without perforation or abscess without bleeding; N13.8 Other obstructive and reflux uropathy; R53.1 Weakness; Z95.0 Presence of cardiac pacemaker; Z87.891 Personal history of nicotine dependence; E66.811 Obesity, class 1; N40.1 Benign prostatic hyperplasia with lower urinary tract symptoms; N28.1 Cyst of kidney, acquired; N28.89 Other specified disorders of kidney and ureter; Z87.81 Personal history of (healed) traumatic fracture; Z79.82 Long term (current) use of aspirin; Z79.02 Long term (current) use of antithrombotics/antiplatelets; Z79.899 Other long term (current) drug therapy; Z79.01 Long term (current) use of anticoagulants
CPT/HCPCS: 36415; 70450; 71045; 74176; 76000; 76770; 80048; 80053; 81001; 82962; 83036; 83605; 83690; 83880; 84443; 84484; 85025; 85027; 85610; 87077; 87086; 87088; 87186; 87631; 93005; 94660; 94668; 97116; 97162; 97166; 97530; 97535; 97802; 99252; 99284; A4216; C1769; C2617; G0463; J2405

== ENCOUNTER → 2024-10-15 | Outpatient (CLI) | payer MEDICARE, SELFPAY ==
[2024-10-15 11:58] LABS: International Normalized Ratio 1.2; Prothrombin Time (Protime)PT. 15.2 SECONDS (11.7-14.9)
[2024-10-15 12:10] LABS: Anion Gap 5 (5-15); BUN 11 mg/dL (7-18); BUN/Creat Ratio 7.9 RATIO (10-20); Calcium,Total 8.7 mg/dL (8.5-10.1); Chloride 108 mmol/L (98-107); Creatinine, Serum 1.39 mg/dL (0.70-1.30); EST Glomerular Filtration Rate 53 mL/min (>60); Est Glom Filt Rate - Afr Amer 64 mL/min (>60); Glucose 107 mg/dL (74-106); Potassium 4.2 mmol/L (3.5-5.1); Sodium Level 138 mmol/L (136-145)
== END | disposition home or self-care (01) ==
LOC: LAB 10:49
PROVIDERS: PCP Internal Medicine; Referring Provider Internal Medicine; Visit Provider Internal Medicine
DX: I48.20 Chronic atrial fibrillation, unspecified (principal); Z90.49 Acquired absence of other specified parts of digestive tract
CPT/HCPCS: 36415; 80048; 85610

== ENCOUNTER 2024-11-10 09:17 | Emergency (ER) | payer MEDICARE, SELFPAY ==
[2024-11-10 09:18] VITALS: BP 125/85; PULSE 70; RESP 18; TEMP 37.1; O2SAT 98
--- NOTE | 2024-11-10 09:24 | EKG12_ITS ---
Test Reason : Blood Pressure : */* mmHG Vent. Rate : 76 BPM Atrial Rate : * BPM P-R Int : * ms QRS Dur : 94 ms QT Int : 480 ms P-R-T Axes : * -30 265 degrees QTcB Int : 540 ms Atrial fibrillation with frequent ventricular-paced complexes Left axis deviation ST & Marked T wave abnormality-possible post paced changes Prolonged QT Abnormal ECG Confirmed by Christiano Matos ([id number]), book or script editor EDUARDO DERAS ([id number]) on 11/11/2024 10:58:45 AM Referred By: Confirmed By: Christiano Matos
[2024-11-10 09:35] VITALS: BMI 33.0
--- NOTE | 2024-11-10 09:38 | EDS_ITS ---
HPI History of Present Illness Chief Complaint: Complaint Narrative Narrative: Patient is a 74-year-old male with a past medical history of atrial fibrillation on warfarin, hypertension, diabetes, ICD, [place] who presented to the emergency department chief complaint of back pain. According to the patient's at bedside he was complaining of of back pain nausea vomiting and states that he had a recent kidney stone with infection that had to be broken up. States that ever since this he has not been his normal self. She states that he is more confused ever since the procedure and it has not been normal. She states that today he has not had any vomiting but is concerned that he has another kidney stone therefore he came here for the valuation management. [facility] Medical History Injury of head and neck Cancer Hepatitis Former smoker CPAP (continuous positive airway pressure) dependence Sleep apnea Atrial fibrillation ICD (implantable cardioverter-defibrillator) in place Pacemaker Hypertension Acute calculous cholecystitis Hyperlipemia Diabetic neuropathy HTN (hypertension) Diabetes Home Medications ?Medication ?Instructions ?Recorded ?Last Taken ?Type allopurinol 100 mg tablet 200 mg PO DAILYCM GOUT 05/1210/09/24 History aspirin 81 mg chewable tablet 81 mg PO DAILY@0800 HEAL TH 05/12/14 10/08/24 History atorvastatin 20 mg tablet 20 mg PO QODAY CHOLESTEROL 0 05/12/14 10/07/24 History duloxetine 60 mg capsule,delayed 60 mg PO DAILY MOOD 0 05/12/14 10/09/24 History release hydrochlorothiazide 25 mg tablet 25 mg PO DAILY BP 10/2410/09/24 History Held on 10/13/24. Instructions: Hold for 1 week and restart at lower dose 12.5 mg daily. lisinopril 40 mg tablet 40 mg PO DAILY BP 05/12/14 0 10/09/24 History Held on 10/13/24. Instructions: Hold for 1 week and follow with BMP with PCP potassium chloride 10 mEq 10 meq PO BID SUPPLEMENT 10/2410/09/24 History tablet,extended release (Klor-Con) acetaminophen 500 mg tablet 1,000 mg PO BID PRN Pain 0 06/09/21 06/09/21 07:00 History amlodipine 5 mg tablet 5 mg PO DAILY BP 06/09/21 History magnesium oxide 400 mg PO BID SUPPLEMENT 10/09/24 History metoprolol tartrate 100 mg tablet 100 mg PO BID HEART 06/09/21 10/09/24 History tamsulosin 0.4 mg capsule 0.8 mg PO DAILY PROSTATE 10/08/24 History warfarin 5 mg tablet 5 mg PO MOTUWETH BLOODTHINNE R 06/09/21 10/09/24 History apremilast 30 mg tablet (Otezla) 30 mg PO DAILY ARTHRI TIS 10/09/24 10/08/24 History bupropion HCl 150 mg 24 hr tablet, 150 mg PO DAILY MOO D 10/09/24 10/09/24 History extended release clobetasol 0.05 % scalp solution See Rx Instructions t opical 10/09/24 10/08/24 History .COMPLEX SCALP gabapentin 600 mg tablet 600 mg PO QHS PAIN 10/09/24 10/08/24 History warfarin 2.5 mg tablet 2.5 mg PO SUFRSA BLOOD THNNE R 10/09/24 10/03/24 History ciprofloxacin HCl 500 mg tablet 500 mg PO BID 3 days # 6 tabs 10/13/24 Unknown Rx (Cipro) insulin glargine 100 unit/mL (3 12 unit (0.12 mL) subc ut QHS DM 30 10/13/24 06/07/21 Rx mL) subcutaneous pen (Lantus days #0 mL Solostar U-100 Insulin) cephalexin 500 mg capsule 500 mg PO Q12H 7 days #14 ca ps 11/10/24 Unknown Rx Allergy/AdvReac Type Severity Reaction Status Date / Time No Known Allergies Allergy Verified 10/09/24 14:01 Surgical History Status post laparoscopic cholecystectomy (~06/2021) Social History household members: spouse housing: house Smoking Status: Former smoker ROS ROS ED ROS Narrative Constitutional: Denies fevers, chills, headaches, lightness, dizziness Eyes: Denies changes double vision blurry vision Cardiovascular: Denies chest pain or palpitations Respiratory: Denies cough or wheezing shortness of breath Abdomen: Complains of flank pain nausea vomiting as noted above but states that he currently does not have any nausea vomiting : States that he is some dark urine and painful urination Neurological: Denies any numbness, weakness, tingling Musculoskeletal: Complains of back pain as noted above Skin: Denies rashes or lesions EXAM Physical Exam Narrative Exam Narrative: General: Patient lying in bed rest comfortably did not appear to be in acute distress Head: Atraumatic, normocephalic Eyes: PERRL bilaterally, EOMI bilaterally, no conjunctival injection noted Neck: Soft, supple, trach midline Cardiovascular: Regular in rhythm no murmurs gallops rubs noted Respiratory: Clear to auscultation bilaterally Abdomen: Soft, tenderness palpation the right lower quadrant and left lower quadrant no rebound or guarding on exam Musculoskeletal: No CVA tenderness on exam, no tense palpation midline of the thoracolumbar spine Extremities: +4/5 strength noted in the bilateral upper and lower extremities, radial pulses +2/4 in the bilateral extremities, no pedal edema no exam Neurological: Patient following commands knew that he was at [facility] year is 2024 Skin: Warm, dry, patient has scattered excoriations noted Const Vital Signs: 11/10/24 09:18 11/10/24 11:21 11/10/24 12:00 Temperature 98.7 F 97.8 F 97.9 F Temperature Source Oral Oral Oral Pulse Rate 70 75 78 Respiratory Rate 18 16 20 H Blood Pressure 125/85 H 144/82 H 141/78 H Blood Pressure Mean 98 102 99 Pulse Ox 98 94 98 Oxygen Delivery Method Room Air Room Air Room Air [facility] MDM Narrative Medical decision making narrative: Patient is a 74-year-old male who presented to the emergency department the chief complaint of back pain and concern for a another kidney stone. On the differential diagnose includes but not limited to UTI, pyelonephritis, urolithiasis, diverticulitis, COVID flu. Once workup is obtained reviewed he will be reevaluated. Patient be given IV fluids for hydration Patient CBC showed no evidence leukocytosis white blood count of 5.6, hemoglobin 11.7, platelet count was noted be 141. Patient sodium normal 130, potassium normal 4.1, creatinine was 1.26 he has underlying chronic kidney disease,, anion gap normal at 9. Patient's troponin was noted be 30 with a delta troponin noted to be 26. Patient's EKG was reviewed and compared to previous EKG From 10/09/2024 patient does have flipped T waves noted in leads V3 will for V5 that are new compared to this old EKG today's EKG showed atrial fibrillation with a rate of 76 bpm. Patient does have a history of A-fib and is on warfarin. I showed on-call director script Dr. Matos the EKGs and he states that this is not abnormal to have flipped T waves after a paced rhythm especially without any other symptoms. He does not believe this is ischemic in nature. Patient INR was noted to be within the therapeutic range at 2.5. Patient lipase normal at 26, urinalysis showed 500 leukocyte esterase positive nitrates greater than 100 white cells with 2+ bacteria. Patient was given a gram Rocephin. He will be given a prescription for Keflex to go home on urine was sent for culture. He is advised to follow-up on this with his primary care physician. CT abdomen pelvis with IV contrast showed tiny left pleural effusion with left basilar infiltration and/or atelectasis minimal increased markings at the lung base on the right side. Status post cholecystectomy. Stable cyst in the upper pole of the [place] kidney. Sigmoid diverticulosis mild degree of diffuse bladder wall thickening. On reevaluation the patient he is feeling better he would like to go home this point time. He once again was advised follow-up on urine culture and take anti biotics as prescribed. His significant other is agreeable this plan they would like to go home at this point time all question concerns answered is discharged home in stable condition. Lab Data Labs: Laboratory Results - last 24 hr 11/10/24 11/10/24 11/10/24 09:37 09:45 11:13 WBC 5.6 RBC 4.30 L Hgb 11.7 L Hct 36.7 L MCV 85.3 MCH 27.2 MCHC 31.9 L RDW Std Deviation 49.3 H RDW Coeff of [place] 16.1 H Plt Count 141 L MPV 9.7 Immature Gran % (Auto) 0.400 Neut % (Auto) 76.9 H Lymph % (Auto) 13.1 L [place] % (Auto) 8.3 Eos % (Auto) 0.9 Baso % (Auto) 0.4 Absolute Neuts (auto) 4.3 Absolute Lymphs (auto) 0.73 L Nucleated RBC % 0 PT 27.1 H INR 2.5 APTT 51.6 H Sodium 138 Potassium 4.1 Chloride Direct 104 Carbon Dioxide 25.9 Anion Gap 9 BUN 12 Creatinine 1.26 H Estim Creat Clear Calc 60.43 Est GFR (MDRD) Non-Af 60 BUN/Creatinine Ratio 9.8 L Glucose 117 H Calcium 8.0 Total Bilirubin 0.47 AST 18 ALT 8 Alkaline Phosphatase 150 H Troponin T High Sens 30 H Troponin T Hi Sens 2 Hr Troponin T Hi Sens 2Hr Delta Total Protein 5.8 L Albumin 2.9 L Globulin 2.9 Albumin/Globulin Ratio 1.0 Lipase 26 Urine Color Yellow Urine Clarity Sl. Cloudy Urine pH 7.0 Ur Specific [place] 1.010 Urine Protein 30 H Urine Glucose (UA) Normal Urine Ketones Negative Urine Occult Blood 25 H Urine Nitrite Positive H Urine Bilirubin Negative Urine Urobilinogen Normal Ur Leukocyte Esterase 500 H Urine RBC 0-5 SEEN Urine WBC >100 SEEN Ur Squamous Epith Cells 0-5 SEEN Urine Bacteria 2+ Urine Mucus 0 SEEN 11/10/24 12:20 WBC RBC Hgb Hct MCV MCH MCHC RDW Std Deviation RDW Coeff of [place] Plt Count MPV Immature Gran % (Auto) Neut % (Auto) Lymph % (Auto) [place] % (Auto) Eos % (Auto) Baso % (Auto) Absolute Neuts (auto) Absolute Lymphs (auto) Nucleated RBC % PT INR APTT Sodium Potassium Chloride Direct Carbon Dioxide Anion Gap BUN Creatinine Estim Creat Clear Calc Est GFR (MDRD) Non-Af BUN/Creatinine Ratio Glucose Calcium Total Bilirubin AST ALT Alkaline Phosphatase Troponin T High Sens Troponin T Hi Sens 2 Hr 26 H Troponin T Hi Sens 2Hr Delta 5 Total Protein Albumin Globulin Albumin/Globulin Ratio Lipase Urine Color Urine Clarity Urine pH Ur Specific [place] Urine Protein Urine Glucose (UA) Urine Ketones Urine Occult Blood Urine Nitrite Urine Bilirubin Urine Urobilinogen Ur Leukocyte Esterase Urine RBC Urine WBC Ur Squamous Epith Cells Urine Bacteria Urine Mucus Radiography Diagnostic Testing: Clinical Impression(s) from Imaging Studies Abdomen/Pelvis CT 11/10/24 10:35 IMPRESSION: Tiny left pleural effusion with left basilar infiltration and/or atelectasis. Minimal increased markings at the right lung base. Status post cholecystectomy. Stable cyst in the upper pole of the left kidney. Sigmoid diverticulosis. Mild degree of diffuse bladder wall thickening. One or more dose reduction techniques were used (e.g., Automated exposure control, adjustment of the mA and/or kV according to patient size, use of iterative reconstruction technique). Reading Location: [id number] Discharge Plan Triage Chief Complaint: Complaint ED Provider: Vladmiir Tavarez Dx/Rx/DC Orders Clinical Impression: Urinary tract infection, Weakness Prescriptions: New cephalexin 500 mg capsule 500 mg PO Q12H 7 Days Qty: 14 0RF No Action atorvastatin 20 MG tablet 20 mg PO QODAY potassium chloride [Klor-Con 10] 10 MEQ tablet extended release 10 meq PO BID allopurinol 100 MG tablet 200 mg PO DAILYCM aspirin 81 MG tablet,chewable 81 mg PO DAILY@0800 hydrochlorothiazide 25 MG tablet 25 mg PO DAILY lisinopril 40 MG tablet 40 mg PO DAILY duloxetine 60 MG capsule 60 mg PO DAILY metoprolol tartrate 100 mg tablet 100 mg PO BID Patient Comments: TAKE 1 TABLET BY MOUTH TWICE DAILY amlodipine 5 mg tablet 5 mg PO DAILY Patient Comments: TAKE 1 TABLET BY MOUTH ONCE DAILY acetaminophen 500 mg Tablet 1,000 mg PO BID PRN (Reason: Pain) tamsulosin 0.4 mg capsule 0.8 mg PO DAILY Patient Comments: TAKE 2 CAPSULES BY MOUTH ONCE DAILY warfarin 5 mg tablet 5 mg PO MOTUWETH Patient Comments: TAKE 1 TABLET BY MOUTH ONCE DAILY magnesium oxide 400 mg magnesium tablet 400 mg PO BID Patient Comments: TAKE 1 TABLET BY MOUTH TWICE DAILY gabapentin 600 mg tablet 600 mg PO QHS warfarin 2.5 mg tablet 2.5 mg PO SUFRSA clobetasol 0.05 % solution See Rx Instructions TOPICAL .COMPLEX Patient Comments: APPLY TO THE SCALP ONCE DAILY IN THE EVENING FOR 2 WEEKS. RINSE OFF IN THE MORNING. TAKE ONE WEEK OFF BEFORE RESUMING NEEDED FOR FLARES. Rx Instructions: APPLY TO THE SCALP ONCE DAILY IN THE EVENING FOR 2 WEEKS. RINSE OFF IN THE MORNING. TAKE ONE WEEK OFF BEFORE RESUMING NEEDED FOR FLARES. topically; bupropion HCl 150 mg tablet extended release 24 hr 150 mg PO DAILY Otezla 30 mg tablet 30 mg PO DAILY insulin glargine [Lantus Solostar U-100 Insulin] 100 UNITS/ML insulin pen 12 unit subcut QHS 30 Days Qty: 0 0RF Rx Instructions: Hold if glucose less than 130 mg/dl ciprofloxacin HCl [Cipro] 500 mg tablet 500 mg PO BID 3 Days Qty: 6 0RF Primary Care Provider: Dee Chawla Referrals: Dee Chawla MD [Primary Care Provider] - Activity Restrictions/Additional Instructions: Follow-up on urine culture result with your primary care physician. Take antibiotics as prescribed. You do have a urinary tract infection your CT did not show any evidence of kidney stones. Return with worsening symptoms or concerns. Print Language: Telugu Disposition Disposition: Home, Self Care
[2024-11-10 09:43] LABS: Absolute Lymphocyte Count 0.73 X10^3/uL (0.83-4.51); Absolute Neutrophil Count 4.3 X10^3/uL (2.0-7.7); Basophil# 0.02 X10^3/uL; Basophil% 0.4 % (0-1); Eosinophil# 0.05 X10^3/uL; Eosinophils% 0.9 % (0-5); Hematocrit 36.7 % (40-54); Hemoglobin 11.7 g/dL (13.0-16.5); Lymphocyte # 0.73 X10^3/ul (0.83-4.51); Lymphocyte % 13.1 % (19-41); Mean Corp Hgb Conc 31.9 g/dL (32-36); Mean Corpuscular Hgb 27.2 pg (27.0-32.0); Mean Corpuscular Volume 85.3 fL (80-94); Mean Platelet Vol. 9.7 fl (6.2-12.0); Monocyte# 0.46 X10^3/uL; Monocyte% 8.3 % (0-10); NRBC Flagged by Analyzer 0 % (0-5); Neutrophil # 4.29 X10^3/uL (2.7-7.7); Neutrophil % 76.9 % (47-70); Platelet Count 141 K/mm3 (150-450); RBC Distribution Width CV 16.1 % (11.6-14.6); RBC Distribution Width SD 49.3 fl (35.1-43.9); White Blood Count 5.6 K/mm3 (4.4-11.0)
[2024-11-10] MEDS: 0.9% Normal Saline (1000mL) 1,000 ML 999 ML IV (09:46)
[2024-11-10 10:10] LABS: International Normalized Ratio 2.5; Prothrombin Time (Protime)PT. 27.1 SECONDS (11.7-14.9)
[2024-11-10 10:11] LABS: Partial Thromboplast Time 51.6 Seconds (24.1-36.2)
[2024-11-10 10:16] LABS: AST(SGOT) 18 U/L (<=37); Alanine Aminotransfer ALT/SGPT 8 U/L (<=46); Albumin, Serum 2.9 g/dL (3.4-4.8); Alkaline Phosphatase 150 U/L (40-129); Anion Gap 9 (5-15); BUN 12 mg/dL (4-19); BUN/Creat Ratio 9.8 RATIO (10-20); Carbon Dioxide 25.9 mmol/L (22.0-29.0); Chloride 104 mmol/L (96-108); Creatinine, Serum 1.26 mg/dL (0.70-1.20); EST Glomerular Filtration Rate 60 (>60); Estimated Creatinine Clearance 60.43 ml/min (50-250); Globulin 2.9 g/dL (2.2-4.2); Glucose 117 mg/dL (70-99); Lipase 26 U/L (13-75); Potassium 4.1 mmol/L (3.3-5.1); Protein, Total 5.8 g/dL (5.9-8.4); Sodium Level 138 mmol/L (133-145); Total Bilirubin 0.47 mg/dL (0.00-1.30)
--- NOTE | 2024-11-10 10:35 | CT_ITS ---
PROCEDURE: ABDOMEN/PELVIS W IV CONT ONLY REASON FOR EXAM: Nausea, vomiting and back pain. TECHNIQUE: Abdomen and pelvis CT with intravenous contrast. IV CONTRAST: 100 cc of Isovue-300. COMPARISON: Comparison is made with prior study dated October 10, 2024. FINDINGS: Coronary artery calcifications. A dual-chamber pacemaker is seen. Lung bases: Tiny left pleural effusion with left basilar infiltration and/or atelectasis. Mild increased markings at the right lung base. Liver: Unremarkable. Gallbladder: Status post cholecystectomy. Spleen: Unremarkable. Pancreas: Unremarkable. Adrenals: Unremarkable. Kidneys: There is a 3.6 cm cyst in the upper pole of the right kidney. Bladder: There is a mild degree of diffuse urinary bladder wall thickening. Stable prostatic enlargement with indentation of the bladder base. Reproductive Organs: Unremarkable. Bowel: Colonic diverticulosis without diverticulitis. Appendix: Normal. Lymph nodes: No suspicious lymph node enlargement. Vasculature: Mild diffuse atherosclerotic calcifications of the abdominal aorta and the major visceral branches. Are noted. Peritoneum / Retroperitoneum: No ascites. No free air. Bones: Degenerative changes of the spine. CT/Abdomen/Pelvis W IV Cont ONLY IMPRESSION: Tiny left pleural effusion with left basilar infiltration and/or atelectasis. Minimal increased markings at the right lung base. Status post cholecystectomy. Stable cyst in the upper pole of the left kidney. Sigmoid diverticulosis. Mild degree of diffuse bladder wall thickening. One or more dose reduction techniques were used (e.g., Automated exposure contr ol, adjustment of the mA and/or kV according to patient size, use of iterative reconstruction technique). Reading Location: [facility]
[2024-11-10 10:54] LABS: Troponin T High Sensitivity 30 ng/L (<=22)
[2024-11-10 11:21] VITALS: BP 144/82; PULSE 75; RESP 16; TEMP 36.6; O2SAT 94
[2024-11-10 11:24] LABS: Mucous, Urine 0 SEEN /hpf (<or=2+)
[2024-11-10 11:42] LABS: Color, Urine Yellow (Yellow); Glucose, Dipstick Normal (Normal); Ketone-Dipstick Negative (Negative); Leukocyte Esterase-Dipstick 500 /ul (Negative); Nitrite-Dipstick Positive (Negative); Occult Blood-Urine 25 /ul (Negative); Protein-Dipstick 30 mg/dl (Negative); Urine Bilirubin Dipstick Negative (Negative); Urine Clarity Sl. Cloudy (Clear); Urine Urobilinogen Normal (Normal)
[2024-11-10 12:00] VITALS: BP 141/78; PULSE 78; RESP 20; TEMP 36.6; O2SAT 98
[2024-11-10 12:04] LABS: White Blood Cells >100 SEEN /hpf (0-5)
[2024-11-10 12:05] LABS: Bacteria 2+ /hpf (None Seen); Red Blood Cells-Urine 0-5 SEEN /hpf (0-5); Squamous Epithelial Cells - UA 0-5 SEEN /hpf (0-5)
[2024-11-10 13:00] VITALS: BP 145/69; PULSE 75; RESP 18; O2SAT 93
[2024-11-10 13:05] LABS: TROPONIN VARIANCE 2 HR 5; Troponin T High Sens 2 HR 26 ng/L (<=22)
[2024-11-10] MEDS: Ceftriaxone 1 GM/50 ML BAG IV (13:55)
[2024-11-10 14:00] VITALS: BP 151/79; PULSE 74; RESP 18; O2SAT 93
== END 2024-11-10 14:31 | disposition home or self-care (01) ==
PROVIDERS: Emergency Provider Emergency Medicine; PCP Internal Medicine; Visit Provider Emergency Medicine
DX: N39.0 Urinary tract infection, site not specified (principal); I48.91 Unspecified atrial fibrillation; E11.40 Type 2 diabetes mellitus with diabetic neuropathy, unspecified; E11.22 Type 2 diabetes mellitus with diabetic chronic kidney disease; R53.1 Weakness; I12.9 Hypertensive chronic kidney disease with stage 1 through stage 4 chronic kidney disease, or unspecified chronic kidney disease; E78.5 Hyperlipidemia, unspecified; N18.9 Chronic kidney disease, unspecified; R11.2 Nausea with vomiting, unspecified; K57.30 Diverticulosis of large intestine without perforation or abscess without bleeding; N32.89 Other specified disorders of bladder; Z79.82 Long term (current) use of aspirin; Z79.01 Long term (current) use of anticoagulants; Z79.899 Other long term (current) drug therapy; Z87.891 Personal history of nicotine dependence
CPT/HCPCS: 74177; 80053; 81001; 83690; 84484; 85025; 85610; 85730; 87077; 87086; 87088; 87186; 93005; 96361; 96365; 99283; Q9967

== ENCOUNTER 2025-05-26 18:04 | Emergency (ER) | payer MEDICARE, SELFPAY ==
[2025-05-26 18:06] VITALS: BP 183/78; PULSE 107; RESP 18; TEMP 35.9; O2SAT 92
[2025-05-26] MEDS: Lidocaine 1% (20 ml mdv) 20 ML Vial INFILT (18:37)
--- NOTE | 2025-05-26 18:37 | RAD_ITS ---
PROCEDURE: LEFT ELBOW MIN 3 VIEWS 05/26/2025 REASON FOR EXAM: INJURY/PAIN TECHNIQUE: Procedure Code: RADEL Modality: DX Procedure: ELBOW MIN 3 VIEWS Laterality: Left COMPARISON: None. FINDINGS: No acute fracture or dislocation appreciated. Alignment is anatomic. Mild degenerative arthrosis of the ulnohumeral articulation. There is an elbow joint effusion, which raises concern for possible occult nondisplaced fracture. Small amorphous calcifications adjacent to the medial and lateral humeral epicondyles likely related to mild chronic degenerative epicondylitis. Prominent generalized soft tissue swelling about the elbow at the dorsal aspect. RAD/Elbow min 3 Views IMPRESSION: No appreciable acute fracture or dislocation, although there is prominent soft tissue swelling and elbow joint effusion which raises concern for possible occult nondisplaced fracture. Mild degenerative ch anges. Reading Location: [facility]
--- NOTE | 2025-05-26 18:53 | EX.ED.GENINJ ---
HPI History of Present Illness Chief Complaint: Laceration Detail of Chief Complaint: Dog bite left elbow and proximal medial left thigh Informant: patient Onset/Context/Timing Onset: Hours Mechanism/Context: Blunt Injury and Puncture Wound Location of pain/injuries: Left elbow and Left thigh Quality of Pain: Aching Location: Left elbow and thigh Current Severity: Mild Maximum Severity: Moderate Worsened by: Palpation Relieved by: Remaining still Associated Symptoms Associated Symptoms: Negative for Parasthesias, Weakness, Loss of function, Inability to ambulate, Loss of consciousness or Amnesia Narrative Narrative: Patient is a 75-year-old male. He is on anticoagulant for atrial fibs. He also has history of diabetes and hypertension. His 290+ pound dogs were fighting. He attempted to break them apart. When he did this he sustained a bite to the lateral left elbow and a bite left medial proximal thigh. Tetanus is up-to-date. He denies paresthesia, anesthesia or weakness in his left upper extremity or lower extremity. Dogs immunization is up-to-date as well. Prior similar symptoms: No Recent Illness/Hospitalization: No [facility] Medical History Injury of head and neck Cancer Hepatitis Former smoker CPAP (continuous positive airway pressure) dependence Sleep apnea Atrial fibrillation ICD (implantable cardioverter-defibrillator) in place Pacemaker Hypertension Acute calculous cholecystitis Hyperlipemia Diabetic neuropathy HTN (hypertension) Diabetes Home Medications ?Medication ?Instructions ?Recorded ?Last Taken ?Type allopurinol 100 mg tablet 200 mg PO DAILYCM GOUT 05/12/14 10/09/24 History aspirin 81 mg chewable tablet 81 mg PO DAILY@0800 HEALTH 05/12/14 10/08/24 History atorvastatin 20 mg tablet 20 mg PO QODAY CHOLESTEROL 05/12/14 10/07/24 History duloxetine 60 mg capsule,delayed 60 mg PO DAILY MOOD 05/12/14 10/09/24 History release hydrochlorothiazide 25 mg tablet 25 mg PO DAILY BP 05/12/14 10/09/24 History Held on 10/13/24. Instructions: Hold for 1 week and restart at lower dose 12.5 mg daily. lisinopril 40 mg tablet 40 mg PO DAILY BP 05/12/14 10/09/24 History Held on 10/13/24. Instructions: Hold for 1 week and follow with BMP with PCP potassium chloride 10 mEq 10 meq PO BID SUPPLEMENT 05/12/14 10/09/24 History tablet,extended release (Klor-Con) acetaminophen 500 mg tablet 1,000 mg PO BID PRN Pain 06/09/21 06/09/21 07:00 History amlodipine 5 mg tablet 5 mg PO DAILY BP 06/09/21 10/09/24 History magnesium oxide 400 mg PO BID SUPPLEMENT 06/09/21 10/09/24 History metoprolol tartrate 100 mg tablet 100 mg PO BID HEART 06/09/21 10/09/24 History tamsulosin 0.4 mg capsule 0.8 mg PO DAILY PROSTATE 06/09/21 10/08/24 History warfarin 5 mg tablet 5 mg PO MOTUWETH BLOODTHINNER 06/09/21 10/09/24 History apremilast 30 mg tablet (Otezla) 30 mg PO DAILY ARTHRITIS 10/09/24 10/08/24 History bupropion HCl 150 mg 24 hr tablet, 150 mg PO DAILY MOOD 10/09/24 10/09/24 History extended release clobetasol 0.05 % scalp solution See Rx Instructions topical 10/09/24 10/08/24 History .COMPLEX SCALP gabapentin 600 mg tablet 600 mg PO QHS PAIN 10/09/24 10/08/24 History warfarin 2.5 mg tablet 2.5 mg PO SUFRSA BLOOD THNNER 10/09/24 10/03/24 History insulin glargine 100 unit/mL (3 12 unit (0.12 mL) subcut QHS DM 30 10/13/24 06/07/21 Rx mL) subcutaneous pen (Lant days #0 mL Solostar U-100 Insulin) cephalexin 500 mg capsule 500 mg PO Q12H 7 days #14 caps 11/10/24 Unknown Rx amoxicillin 875 mg-potassium 875 mg PO Q12H #10 TABLETS 05/26/25 Unknown Rx clavulanate 125 mg tablet Allergy/AdvReac Type Severity Reaction Status Date / Time No Known Allergies Allergy Verified 05/26/25 18:06 Surgical History Status post laparoscopic cholecystectomy (~06/2021) Social History household members: spouse housing: house Smoking Status: Former smoker ROS ROS ED Constitutional Constitutional ED: Denies chills, fever(s), subjective or sweats Musculoskeletal Musculoskeletal: Denies arthralgias, back pain, myalgias or neck pain Neurologic Neurologic: Denies headache(s), paresthesias or weakness Hematologic/Lymphatic Hematologic/Lymphatic: Denies easy bleeding or easy bruising EXAM Physical Exam Const Vital Signs: 05/26/25 18:06 05/26/25 20:20 Temperature 96.7 F L Temperature Source Temporal Pulse Rate 107 H 99 Respiratory Rate 18 18 Blood Pressure 183/78 H 146/72 H Blood Pressure Mean 113 96 Pulse Ox 92 96 Oxygen Delivery Method Room Air Room Air Positive well nourished and well developed General Appearance ED: well developed HEENT atraumatic; Negative for tenderness Eyes PERRL and EOMs intact bilaterally Resp normal respiratory effort Cardio Rate: tachycardic Rhythm: abnormal rhythm Extremity full ROM; Negative for normal to inspection Extremity Narrative: Patient has multiple bruises due to the fact he is on Eliquis. He has a dog bite lateral left elbow. It appears to be over the lateral epicondyle. There is no pain the patient of the lateral medial epicondyle. There may be involvement of muscle. Median, radial and ulnar function tact. Radial pulses palpable. There is also a laceration proximal medial thigh. There is no tenderness subcutaneous air. There is bruising noted. Neuro oriented x3, CN's II-XII intact bilaterally, moves all extremities, no focal motor deficits, no sensory deficits noted and No gait normal [place] Coma Scale: document GCS findings Spontaneous Obeys Commands Oriented 15 Psych mental status grossly normal and thought process normal Skin Skin Narrative: Laceration left elbow and left thigh MDM MDM MDM Narrative Medical decision making narrative: X-ray of the elbow was obtained to evaluate for fracture and/or foreign body. Wounds will need suture. Since he has no antibiotic allergy he will be discharged on Augmentin for prophylaxis status post dog bite. There are 3 wounds there is a 1.5 cm laceration mid proximal left thigh. There is a puncture wound posterior distal arm and a small laceration is 1 cm in length. There is also a 5.6 cm laceration on the lateral aspect of the left elbow. Patient was prepped draped sterile manner. All wounds were anesthetized with 1% lidocaine for local infiltration. Wounds were irrigated with a total of 500 cc of normal saline. Predominantly the larger lateral elbow wound was irrigated. The laceration on the thigh was closed using 4-0 Ethilon. A total of 3 stitches was placed. The 5.6 cm laceration required 10 stitches using 4-0 Ethilon. And the 1 cm posterior laceration was closed with 1 horizontal stitch using 4-0 Ethilon. Patient received first dose of antibiotics. informing that his tetanus is not up-to-date therefore will order. There is a skin tear to right forearm that was not sutured. This was 4 cm in length The elbow wound was explored. It did not appear to violate the joint. Radiography Chest X-Ray - ED: Read by ED Physician (Three-view x-ray of the left elbow reveals no tooth fragment or foreign body. There is no fracture. There is no posterior fat pad with a questionable anterior sail sign. There is entirely reviewed interpreted by me at 1854.) Diagnostic Testing: Clinical Impression(s) from Imaging Studies Elbow X-Ray 05/26/25 18:37 IMPRESSION: No appreciable acute fracture or dislocation, although there is prominent soft tissue swelling and elbow joint effusion which raises concern for possible occult nondisplaced fracture. Mild degenerative changes. Reading Location: [facility] Discharge Plan Triage Chief Complaint: Laceration ED Provider: Sim Zimmerman Dx/Rx/DC Orders Clinical Impression: Open wound of left elbow due to dog bite, Atrial fibrillation, chronic, Dog bite of left thigh without complication, Anticoagulant long-term use, Skin tear of right forearm without complication Instructions: ED Dog Bite, ED Laceration Extremity, ED Skin Tear (Skin Avulsion) Prescriptions: New amoxicillin-pot clavulanate 875-125 mg tablet 875 mg PO Q12H Qty: 10 0RF No Action atorvastatin 20 MG tablet 20 mg PO QODAY potassium chloride [Klor-Con 10] 10 MEQ tablet extended release 10 meq PO BID allopurinol 100 MG tablet 200 mg PO DAILYCM aspirin 81 MG tablet,chewable 81 mg PO DAILY@0800 hydrochlorothiazide 25 MG tablet 25 mg PO DAILY lisinopril 40 MG tablet 40 mg PO DAILY duloxetine 60 MG capsule 60 mg PO DAILY metoprolol tartrate 100 mg tablet 100 mg PO BID Patient Comments: TAKE 1 TABLET BY MOUTH TWICE DAILY amlodipine 5 mg tablet 5 mg PO DAILY Patient Comments: TAKE 1 TABLET BY MOUTH ONCE DAILY acetaminophen 500 mg Tablet 1,000 mg PO BID PRN (Reason: Pain) tamsulosin 0.4 mg capsule 0.8 mg PO DAILY Patient Comments: TAKE 2 CAPSULES BY MOUTH ONCE DAILY warfarin 5 mg tablet 5 mg PO MOTUWETH Patient Comments: TAKE 1 TABLET BY MOUTH ONCE DAILY magnesium oxide 400 mg magnesium tablet 400 mg PO BID Patient Comments: TAKE 1 TABLET BY MOUTH TWICE DAILY cephalexin 500 mg capsule 500 mg PO Q12H 7 Days Qty: 14 0RF gabapentin 600 mg tablet 600 mg PO QHS warfarin 2.5 mg tablet 2.5 mg PO SUFRSA clobetasol 0.05 % solution See Rx Instructions TOPICAL .COMPLEX Patient Comments: APPLY TO THE SCALP ONCE DAILY IN THE EVENING FOR 2 WEEKS. RINSE OFF IN THE MORNING. TAKE ONE WEEK OFF BEFORE RESUMING NEEDED FOR FLARES. Rx Instructions: APPLY TO THE SCALP ONCE DAILY IN THE EVENING FOR 2 WEEKS. RINSE OFF IN THE MORNING. TAKE ONE WEEK OFF BEFORE RESUMING NEEDED FOR FLARES. topically; bupropion HCl 150 mg tablet extended release 24 hr 150 mg PO DAILY Otezla 30 mg tablet 30 mg PO DAILY insulin glargine [Lantus Solostar U-100 Insulin] 100 UNITS/ML insulin pen 12 unit subcut QHS 30 Days Qty: 0 0RF Rx Instructions: Hold if glucose less than 130 mg/dl Primary Care Provider: Dee Chawla Referrals: Dee Chawla MD [Primary Care Provider] - 2 Days for wound check Activity Restrictions/Additional Instructions: 1. Sutures out 14 days 2. Keep wounds clean and dry 3. Take antibiotics until gone 4. If there is concern for infection return to the emergency department Print Language: Armenian Disposition Disposition: Home, Self Care
[2025-05-26 20:20] VITALS: BP 146/72; PULSE 99; RESP 18; O2SAT 96
[2025-05-26 22:00] VITALS: BP 138/70; PULSE 96; RESP 18; TEMP 36.2; O2SAT 96
== END 2025-05-26 22:10 | disposition home or self-care (01) ==
PROVIDERS: Emergency Provider Emergency Medicine; PCP Internal Medicine; Visit Provider Emergency Medicine
DX: S71.152A Open bite, left thigh, initial encounter (principal); I48.20 Chronic atrial fibrillation, unspecified; E11.40 Type 2 diabetes mellitus with diabetic neuropathy, unspecified; S71.112A Laceration without foreign body, left thigh, initial encounter; S51.052A Open bite, left elbow, initial encounter; S51.811A Laceration without foreign body of right forearm, initial encounter; W54.0XXA Bitten by dog, initial encounter; Z79.01 Long term (current) use of anticoagulants; Z87.891 Personal history of nicotine dependence; Z95.0 Presence of cardiac pacemaker
CPT/HCPCS: 12002; 73080; 90715; 99283

== ENCOUNTER 2025-08-07 11:17 | Emergency (ER) | payer MEDICARE, SELFPAY ==
[2025-08-07 11:17] VITALS: BP 127/65; PULSE 65; RESP 16; TEMP 36.4; O2SAT 97
[2025-08-07 11:28] VITALS: BMI 39.1
--- NOTE | 2025-08-07 11:44 | EX.ED.DYSGE1 ---
HPI History of Present Illness Chief Complaint: Abn Labs Narrative Narrative: Patient is a 75-year-old male presenting to the emergency department for abnormal kidney function labs done outpatient on Sunday. Patient has a past medical history of CKD stage III, kidney stones, frequent UTI, A-fib, hypertension. Patient was seen by his primary care doctor on Sunday and has had issues with recurrent UTIs, therefore labs and a urinalysis was ordered. He was called on Sunday to come to the emergency department for evaluation but he states that he did not want to miss Thanksgiving which is why he is here today. He denies any symptoms. Denies fever, chills, chest pain, shortness of breath, abdominal pain, nausea, vomiting, dysuria or hematuria. [facility] Medical History Injury of head and neck Cancer Hepatitis Former smoker CPAP (continuous positive airway pressure) dependence Sleep apnea Atrial fibrillation ICD (implantable cardioverter-defibrillator) in place Pacemaker Hypertension Acute calculous cholecystitis Hyperlipemia Diabetic neuropathy HTN (hypertension) Diabetes Home Medications ?Medication ?Instructions ?Recorded ?Last Taken ?Type allopurinol 100 mg tablet 200 mg PO DAILYCM GOUT 05/12/14 10/09/24 History aspirin 81 mg chewable tablet 81 mg PO DAILY@0800 HEALTH 05/12/14 10/08/24 History atorvastatin 20 mg tablet 20 mg PO QODAY CHOLESTEROL 05/12/14 10/07/24 History duloxetine 60 mg capsule,delayed 60 mg PO DAILY MOOD 05/12/14 10/09/24 History release hydrochlorothiazide 25 mg tablet 25 mg PO DAILY BP 05/12/14 10/09/24 History Held on 10/13/24. Instructions: Hold for 1 week and restart at lower dose 12.5 mg daily. lisinopril 40 mg tablet 40 mg PO DAILY BP 05/12/14 10/09/24 History Held on 10/13/24. Instructions: Hold for 1 week and follow with BMP with PCP potassium chloride 10 mEq 10 meq PO BID SUPPLEMENT 05/12/14 10/09/24 History tablet,extended release (Klor-Con) acetaminophen 500 mg tablet 1,000 mg PO BID PRN Pain 06/09/21 06/09/21 07:00 History amlodipine 5 mg tablet 5 mg PO DAILY BP 06/09/21 10/09/24 History magnesium oxide 400 mg PO BID SUPPLEMENT 06/09/21 10/09/24 History metoprolol tartrate 100 mg tablet 100 mg PO BID HEART 06/09/21 10/09/24 History tamsulosin 0.4 mg capsule 0.8 mg PO DAILY PROSTATE 06/09/21 10/08/24 History warfarin 5 mg tablet 5 mg PO MOTUWETH BLOODTHINNER 06/09/21 10/09/24 History apremilast 30 mg tablet (Otezla) 30 mg PO DAILY ARTHRITIS 10/09/24 10/08/24 History bupropion HCl 150 mg 24 hr tablet, 150 mg PO DAILY MOOD 10/09/24 10/09/24 History extended release clobetasol 0.05 % scalp solution See Rx Instructions topical 10/09/24 10/08/24 History .COMPLEX SCALP gabapentin 600 mg tablet 600 mg PO QHS PAIN 10/09/24 10/08/24 History warfarin 2.5 mg tablet 2.5 mg PO SUFRSA BLOOD THNNER 10/09/24 10/03/24 History insulin glargine 100 unit/mL (3 12 unit (0.12 mL) subcut QHS DM 30 10/13/24 06/07/21 Rx mL) subcutaneous pen (Lan days #0 mL Solostar U-100 Insulin) cephalexin 500 mg capsule 500 mg PO Q12H 7 days #14 caps 11/10/24 Unknown Rx amoxicillin 875 mg-potassium 875 mg PO Q12H #10 TABLETS 05/26/25 Unknown Rx clavulanate 125 mg tablet cephalexin 500 mg capsule 500 mg PO Q6 #40 CAPSULES 08/07/25 Unknown Rx Allergy/AdvReac Type Severity Reaction Status Date / Time No Known Allergies Allergy Verified 08/07/25 11:20 Surgical History Status post laparoscopic cholecystectomy (~06/2021) Social History household members: spouse housing: house Smoking Status: Former smoker ROS ROS ED ROS Narrative see HPI EXAM Physical Exam Narrative Exam Narrative: Vital signs: Reviewed General: Alert and oriented x 3. No acute distress. Nontoxic, well-appearing. HEENT: Head is normocephalic and atraumatic, sinuses nontender, pupils equal round and reactive. Nares are patent. Oropharynx and throat exams normal. Neck: Supple without lymphadenopathy nontender Cardiovascular: Regular rate and rhythm, no murmurs. No rubs or gallops. Normal S1 and S2 Respiratory: Clear to auscultation bilaterally. No wheezes, rales, rhonchi Abdominal: Soft, protuberant, nontender to palpation. Normal bowel sounds. No guarding or rebound. Nonsurgical abdomen. No CVA tenderness to palpation. Extremities: No tenderness. No bruising. Normal range of motion. Normal sensation. Skin: No rash or redness. The rest of the physical exam is unremarkable Const Vital Signs: 08/07/25 11:17 08/07/25 11:28 08/07/25 13:43 Temperature 97.6 F L 98.1 F Temperature Source Oral Pulse Rate 65 67 Respiratory Rate 16 18 Respiratory Pattern Normal Blood Pressure 127/65 H 129/70 H Blood Pressure Mean 85 89 Pulse Ox 97 98 Oxygen Delivery Method Room Air MDM MDM MDM Narrative Medical decision making narrative: Patient is a 75-year-old male presenting to the emergency department for abnormal kidney function seen on outpatient labs. Patient was seen and examined. Vitals are stable. Patient resting in bed comfortably in no acute distress. Patient has no complaints at this time. Will start with labs and evaluate his BUN/creatinine here to determine if CT imaging is needed. CBC with leukopenia of 3.0, anemia of 8.6 and thrombocytopenia of 63. These have been present on prior labs. He does look slightly more anemic than normal, I asked what his recent hemoglobin has been and patient reports it was in the low nines. Again he is asymptomatic. BMP with slight elevation of creatinine from November however in October was 1.56 he is now 1.79. He has a normal BUN. I do not see this is a radiology report acute change to his left knee function and I discussed this with patient and significant other at bedside. I do not think she needs further imaging or workup here in terms of the slightly elevated creatinine. Urinalysis is positive for nitrates and leukocyte esterase, will wait treat for possible urinary tract infection. Patient states that he has had multiple UTIs recently and I recommended following up with a urologist as soon as possible. In terms of his blood counts I recommended that he follow-up with a mold capper which he states he has many times for his leukopenia, anemia and thrombocytopenia. Recommended follow-up with PCP as soon as possible, has an appointment on August 12. Patient discharged from the Emergency Department. I do not feel that the patient's evaluation reveals any acute reason for admission at this time. I instructed them to either follow-up with their primary care physician or promptly return to the Emergency Department for reevaluation should symptoms worsen or new symptoms develop. I explained what symptoms would indicate the need to return to the emergency department. Shared decision making was used. The patient voiced understanding of the treatment plan and is agreeable with it. Clinical impression: UTI Elevated creatinine Leukopenia Anemia Thrombocytopenia History & Record Review Discussion w/independent historian: Patient and Significant other Lab Data Attestation: I reviewed the patient's lab results. Labs: Laboratory Results - last 24 hr 08/07/25 08/07/25 12:03 13:00 WBC 3.0 L RBC 3.05 L Hgb 8.6 L Hct 27.6 L MCV 90.5 MCH 28.2 MCHC 31.2 L RDW Std Deviation 68.7 H RDW Coeff of [place] 20.7 H Plt Count 63 L MPV 10.1 Immature Gran % (Auto) 0.700 Neut % (Auto) 66.8 Lymph % (Auto) 19.1 [place] % (Auto) 6.7 Eos % (Auto) 5.7 H Baso % (Auto) 1.0 Absolute Neuts (auto) 2.0 Absolute Lymphs (auto) 0.57 L Nucleated RBC % 0 Differential Comment SCANNED Polychromasia RARE Anisocytosis 2+ Microcytosis 1+ Macrocytosis 1+ Ovalocytes RARE Sodium 136 Potassium 4.9 Chloride 104 Carbon Dioxide 23.3 Anion Gap 9 BUN 13 Creatinine 1.79 H Estim Creat Clear Calc 45.62 L Est GFR (MDRD) Non-Af 39 L BUN/Creatinine Ratio 7.1 L Glucose 108 H Calcium 8.8 Urine Color Yellow Urine Clarity Clear Urine pH 7.0 Ur Specific [place] 1.010 Urine Protein 15 H Urine Glucose (UA) Normal Urine Ketones Negative Urine Occult Blood 25 H Urine Nitrite Positive H Urine Bilirubin Negative Urine Urobilinogen Normal Ur Leukocyte Esterase 25 H Urine RBC 0 SEEN Urine WBC 0-5 SEEN Ur Squamous Epith Cells 0 SEEN Urine Bacteria 0 SEEN Urine Mucus 0 SEEN Discharge Plan Triage Chief Complaint: Abn Labs ED Provider: Sulma Gómez Dx/Rx/DC Orders Clinical Impression: Acute UTI, Anemia, Thrombocytopenia Instructions: Anemia and Kidney Disease, ED Bladder Infection, Male (Adult) Prescriptions: New cephalexin 500 mg capsule 500 mg PO Q6 Qty: 40 0RF No Action atorvastatin 20 MG tablet 20 mg PO QODAY potassium chloride [Klor-Con 10] 10 MEQ tablet extended release 10 meq PO BID allopurinol 100 MG tablet 200 mg PO DAILYCM aspirin 81 MG tablet,chewable 81 mg PO DAILY@0800 hydrochlorothiazide 25 MG tablet 25 mg PO DAILY lisinopril 40 MG tablet 40 mg PO DAILY duloxetine 60 MG capsule 60 mg PO DAILY metoprolol tartrate 100 mg tablet 100 mg PO BID Patient Comments: TAKE 1 TABLET BY MOUTH TWICE DAILY amlodipine 5 mg tablet 5 mg PO DAILY Patient Comments: TAKE 1 TABLET BY MOUTH ONCE DAILY acetaminophen 500 mg Tablet 1,000 mg PO BID PRN (Reason: Pain) tamsulosin 0.4 mg capsule 0.8 mg PO DAILY Patient Comments: TAKE 2 CAPSULES BY MOUTH ONCE DAILY warfarin 5 mg tablet 5 mg PO MOTUWETH Patient Comments: TAKE 1 TABLET BY MOUTH ONCE DAILY magnesium oxide 400 mg magnesium tablet 400 mg PO BID Patient Comments: TAKE 1 TABLET BY MOUTH TWICE DAILY cephalexin 500 mg capsule 500 mg PO Q12H 7 Days Qty: 14 0RF gabapentin 600 mg tablet 600 mg PO QHS warfarin 2.5 mg tablet 2.5 mg PO SUFRSA clobetasol 0.05 % solution See Rx Instructions TOPICAL .COMPLEX Patient Comments: APPLY TO THE SCALP ONCE DAILY IN THE EVENING FOR 2 WEEKS. RINSE OFF IN THE MORNING. TAKE ONE WEEK OFF BEFORE RESUMING NEEDED FOR FLARES. Rx Instructions: APPLY TO THE SCALP ONCE DAILY IN THE EVENING FOR 2 WEEKS. RINSE OFF IN THE MORNING. TAKE ONE WEEK OFF BEFORE RESUMING NEEDED FOR FLARES. topically; bupropion HCl 150 mg tablet extended release 24 hr 150 mg PO DAILY Otezla 30 mg tablet 30 mg PO DAILY insulin glargine [Lantus Solostar U-100 Insulin] 100 UNITS/ML insulin pen 12 unit subcut QHS 30 Days Qty: 0 0RF Rx Instructions: Hold if glucose less than 130 mg/dl amoxicillin-pot clavulanate 875-125 mg tablet 875 mg PO Q12H Qty: 10 0RF Primary Care Provider: Dee Chawla Referrals: Dee Chawla MD [Primary Care Provider, Internal Medicine] - As soon as possible Activity Restrictions/Additional Instructions: You need to follow-up with your urologist, mold capper and primary care doctor as discussed. Please take the antibiotic as prescribed. If you develop any abdominal pain, pain in your back, nausea, vomiting or fevers he needs to return immediately. If you develop any lightheadedness or dizziness you need to return. Your evaluation in the Emergency Department did not reveal any acute reason for admission. However, I want to emphasize that you may be early in the course of a disease process or illness even if it is not present. For this reason you should follow-up within 24 hours for reevaluation with either your primary care physician or if necessary back here in the Emergency Department. You should return to the Emergency Department immediately if your symptoms worsen or new symptoms develop. Print Language: Guatemalan Disposition Disposition: Home, Self Care Discharge Date/Time: 08/07/25 13:43
--- OUTSIDE RECORDS SUMMARY | 2025-08-07 11:57 | XMS RPT_ITS | CCD ---
Author Organization 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 Name Role Phone CORY MILAN Unavailable Unavailable SCOTT BATES Unavailable Unavailable KAYLI, CORY Unavailable Unavailable [facility] Unavailable Unavailable KAYLI, CORY Unavailable Unavailable KAYLI, CORY Unavailable Unavailable VILLA, LUANA S Unavailable Unavailable VILLA, LUANA S Unavailable Unavailable VILLA, LUANA S Unavailable Unavailable VILLA, LUANA S Unavailable Unavailable Dee Ashley MD Primary Care Provider No, Referral Unavailable Unavailable Michale Paredes MD Unavailable [facility], [place] Unavailable Christoph Chavis MD Unavailable Michael Paredes MD Unavailable Dee Ashley MD Primary Care Provider No, Referral Unavailable Unavailable [facility], [place] Unavailable Christoph Chavis MD Unavailable [facility], [place] Unavailable Dee Ashley MD Primary Care Provider No, Referral Unavailable Unavailable [facility] [place] Unavailable Christoph Chavis MD Unavailable Christoph Chavis MD Unavailable Dee Ashley MD Primary Care Provider Michael Paredes MD Unavailable [facility], [place] Unavailable Lillian Hanks PA-C Unavailable [phone] 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 Price Primary Care Provider Dr. Sim Zimmerman MD Emergency Provider [phone] Ganta, Dee Primary Care Unavailable Sim Zimmerman Attending Unavailable Ganta, Dee Primary Care Unavailable Vladimir Tavarez Attending Unavailable Lv Pink Admitting Unavailable Compa, Sd Attending Unavailable Ganta, Dee Primary Care Unavailable Lv Pink Consulting Unavailable Jose Armando Erickson Consulting Unavailable Compa, Sd Attending Unavailable Ganta, Dee Primary Care Unavailable Ganta, Dee Primary Care Unavailable Jayleen Kwok Attending Unavailable Nidia Kwokma Referring Unavailable Lv Pink Admitting Unavailable Compa, Sd Attending Unavailable Ganta, Dee Primary Care Unavailable Lv Pink Consulting Unavailable Jose Armando Erickson Consulting Unavailable Compa, Sd Consulting Unavailable Lv Pink Attending Unavailable Rohan Lewis Attending Unavailable Compa, Sd Referring Unavailable Ganta, Dee Primary Care Unavailable Compa, Sd Attending Unavailable Compa, Sd Referring Unavailable Ganta, Dee Primary Care Unavailable Ganta, Dee Primary Care Unavailable Florencio Bull Attending Unavailable MELVIN LOPEZ Attending Unavailable YURIDIA JAMES Referring Unavailable GANTA, DEE Primary Care Unavailable GANTA, DEE Primary Care Unavailable LAILA SABIANISM Admitting Unavailable KADY SPRAGUE Attending Unavailable CORETTA KATZ Consulting Unavailable GANTA, DEE Primary Care Unavailable GANTA, DEE Primary Care Unavailable CHRISTOPH CHAVIS Referring Unavailable GANTA, DEE Primary Care Unavailable GANTA, DEE Primary Care Unavailable SELF Referring Unavailable GANTA, DEE Attending Unavailable GANTA, DEE Referring Unavailable GANTA, DEE Primary Care Unavailable GANTA, DEE Primary Care Unavailable GANTA, DEE Primary Care Unavailable NICKY PIERSON Attending Unavailable GANTA, DEE Primary Care Unavailable NICKY PIERSON Referring Unavailable GANTA, DEE Primary Care Unavailable GLEASON, NABILA Referring Unavailable GANTA, DEE Primary Care Unavailable GLEASON, NABILA Referring Unavailable GLEASON, NABILA Referring Unavailable GANTA, DEE Primary Care Unavailable GANTA, DEE Primary Care Unavailable GLEASON, NABILA Referring Unavailable GANTA, DEE Primary Care Unavailable GLEASON, NABILA Referring Unavailable GANTA, DEE Primary Care Unavailable GANTA, DEE Attending Unavailable GANTA, DEE Primary Care Unavailable GANTA, DEE Referring Unavailable GANTA, DEE Primary Care Unavailable GANTA, DEE Referring Unavailable GANTA, DEE Primary Care Unavailable BOGNATALIA ZURITA Referring Unavailable GANTA, DEE Primary Care Unavailable GLEASON, NABILA Referring Unavailable DRESINCHRISTOPH Davis Referring Unavailable GANTA, EDE Primary Care Unavailable GANTA, DEE Primary Care Unavailable DRECHRISTOPH OCAMPO Admitting Unavailable CHRISTOPH CHAVIS Attending Unavailable GANTA, DEE Primary Care Unavailable GLEASON, NABILA Referring Unavailable GANTA, DEE Primary Care Unavailable GANTA, DEE Attending Unavailable SELF Referring Unavailable GANTA, DEE Referring Unavailable GANTA, DEE Primary Care Unavailable KEYSHAWN ORDONEZ Attending Unavailable GANTA, DEE Primary Care Unavailable GLEASON, NABILA Referring Unavailable GANTA, DEE Primary Care Unavailable SELF Referring Unavailable GANTA, DEE Attending Unavailable GANTA, DEE Primary Care Unavailable GLEASON, NABILA Attending Unavailable GANTA, DEE Primary Care Unavailable GANTA, DEE Referring Unavailable RADHA CRAWFORD Attending Unavailable GANTA, DEE Primary Care Unavailable GANTA, DEE Attending Unavailable GANTA, DEE Primary Care Unavailable LINO BHANDARI Attending Unavailable GANTA, DEE Primary Care Unavailable GANTA, DEE Primary Care Unavailable GLEASON, NABILA Attending Unavailable GANTA, DEE Primary Care Unavailable GANTA, DEE Primary Care Unavailable GANTA, DEE Attending Unavailable GANTA, DEE Primary Care Unavailable GANTA, DEE Primary Care Unavailable GANTA, DEE Primary Care Unavailable GLADYS VELATTE Attending Unavailable GANTA, DEE Primary Care Unavailable NATALIA VELA Referring Unavailable DRESING, CHRISTOPH Zhou Referring Unavailable DRESINRyan, CHRISTOPH Zhou Attending Unavailable GANTA, DEE Primary Care Unavailable GANTA, DEE Primary Care Unavailable GANTA, DEE Primary Care Unavailable GLEASON, NABILA Referring Unavailable GANTA, DEE Primary Care Unavailable GLEASON, NABILA Referring Unavailable GANTA, DEE Primary Care Unavailable GANTA, DEE Attending Unavailable GANTA, DEE Primary Care Unavailable GANTA, DEE Referring Unavailable JUNNA, DEBBIE Attending Unavailable GANTA, DEE Primary Care Unavailable GANTA, DEE Referring Unavailable GANTA, DEE Primary Care Unavailable CELESTINE, RIMON Referring Unavailable GLEASON, NABILA Attending Unavailable GANTA, DEE Primary Care Unavailable GANTA, DEE Referring Unavailable GANTA, DEE Primary Care Unavailable GANTA, DEE Referring Unavailable GANTA, DEE Primary Care Unavailable GANTA, DEE Referring Unavailable GANTA, DEE Primary Care Unavailable GANTA, DEE Referring Unavailable GANTA, DEE Primary Care Unavailable GANTA, DEE Primary Care Unavailable SELF Referring Unavailable GANTA, DEE Attending Unavailable GLEASON, NABILA Referring Unavailable GANTA, DEE Primary Care Unavailable GANTA, DEE Primary Care Unavailable GANTA, DEE Referring Unavailable JACKSON NELSON Attending Unavailable GANTA, DEE Primary Care Unavailable GANTA, DEE Referring Unavailable DRESING, CHRISTOPH Zhou Referring Unavailable GANTA, DEE Primary Care Unavailable GANTA, DEE Referring Unavailable GANTA, DEE Primary Care Unavailable GANTA, DEE Primary Care Unavailable GANTA, DEE Referring Unavailable Medications Current Medications Medication Drug Class(es) Dates Sig (Normalized) Sig (Original) acetaminophen 500 mg oral tablet (20 sources) Start: 06-09-2021 acetaminophen (TYLENOL) 500 mg tablet Take 500 mg by mouth as needed. 06/09/2021 Active Start: 06-09-2021 take 2 tablets by mo uth twice daily as needed for pain Acetaminophen 500 mg Tablet Active 1000 mg PO TWICE A DAY as needed for Pain June 09, 2021 12:00am Start: 06-09-2021 take 1000 mg by mout h twice daily Acetaminophen Active 1000 MG PO TWICE A DAY June 08, 2021 11:00pm Comment on above: Take 500 mg by mouth as needed. allopurinol 100 mg oral tablet (20 sources) Xanthine Oxidase Inhibitor Start: 4 End: take 2 tablets by mouth once daily allopurinol (ZYLOPRIM) 100 mg tablet Take 2 tablets by mouth once daily. 180 tablet 3 04/14/2024 Active Start: 05-12-2014 take 200 mg by mouth once daily at mealtime Allopurinol Active 200 MG PO DAILY WITH MEALS May 11, 2014 11:00pm Comment on above: Take 2 tablets by [facility] once daily. amLODIPine 5 mg oral tablet (20 sources) Dihydropyridine Calcium Channel Tuan Start: 08-25-20 End: 05-05-20 take 0.5 tablet by mouth once daily amLODIPine (NORVASC) 5 mg tablet Indications: Paroxysmal atrial fibrillation (HCC) Take 0.5 tablets by mouth once daily. 90 tablet 3 08/25/2024 05/05/2025 Discontinued (Adjust Sig - Block E-Cancel) Start: 05-12-2021 End: 08-25-2024 take 1 tablet by mouth once daily amLODIPine (NORVASC) 5 mg tablet Indications: Paroxysmal atrial fibrillation (HCC) Take 1 tablet by mouth once daily. 90 tablet 3 05/05/2025 Active Comment on above: Take 1 tablet by [facility] once daily. amoxicillin 875 mg / clavulanate 125 mg oral tablet (20 sources) Penicillin-class Antibacterial Start: take 1 tablet by mouth every twelve hours Amoxicillin-Pot Clavulanate 875-125 mg tablet Active 875 mg PO Q12H 10 May 26, 2025 12:00am Start: 07-10-2024 End: 12-19-2024 amoxicillin-clavulanate pota ssium (AUGMENTIN) 875-125 mg per tablet Take by mouth. 07/10/2024 12/19/2024 Discontinued Start: 07-10-2024 End: 10-09-2024 take 1 tablet by mouth every twelve hours Amoxicillin-Pot Clavulanate 875-125 mg tablet Discontinued 875 mg PO Q12H July 10, 2024 12:00am October 09, 2024 8:15pm apixaban 5 mg oral tablet (20 sources) Factor Xa Inhibitor Start: 01-05-2025 take 1 tablet by mouth twice daily apixaban (ELIQUIS) 5 mg tab(s) Take 1 tablet by mouth two times a day. 60 tablet 5 01/05/2025 Active apremilast 30 mg oral tablet (20 sources) Start: 10-09-2024 take 1 tablet by mouth once daily Apremilast (Otezla) 30 mg tablet Active 30 mg PO DAILY October 09, 2024 1:00am ARTHRITIS Start: 04-30-2023 take 1 tablet by andrea th twice daily apremilast (OTEZLA) 30 mg tablet Take 1 tablet by mouth twice daily. 04/30/2023 Active Comment on above: Take 1 tablet by andrea th twice daily. aspirin 81 mg chewable tablet (5 sources) Platelet Aggregation Inhibitor, Nonsteroidal Anti-inflammatory Drug Start: 05-12-2014 take 1 tablet by mouth once daily Aspirin 81 MG tablet,chewable Active 81 mg PO DAILY@0800 May 12, 2014 12:00am HEALTH Start: 03-08-2009 End: 09-26-2021 aspirin(ECOTRIN LOW STRENGTH 81 MG TAB) Indications: Type II or unspecified type diabetes mellitus without mention of complication, not stated as uncontrolled Take one(1) tablet daily. 0 0 03/08/2009 09/26/2021 Discontinued atorvastatin 20 mg oral tablet (4 sources) HMG-CoA Reductase Inhibitor Start: 05-12-2014 take 1 tablet by mouth every other day Atorvastatin 20 MG tablet Active 20 mg PO EVERY OTHER DAY May 12, 2014 12:00am CHOLESTEROL Blood Sugar Diagnostic, Drum (ACCU-CHEK COMPACT TEST) strp (20 sources) Start: 05-25-2014 Blood Sugar Diagnostic, Drum (ACCU-CHEK COMPACT TEST) strp Indications: Diabetic neuropathy, type II diabetes mellitus (HCC) Test blood sugar(s) 4 times daily. Dx: DM 250 Insulin: Yes 51 Strip 11 05/25/2014 Active Comment on above: Test blood sugar(s) 4 times daily. Dx: DM 250 Insulin: Yes 24 hr buPROPion hydrochloride 150 mg extended release oral tablet (20 sources) Aminoketone Start: 07-29-2024 End: 10-09-2024 take 1 tablet by mouth once daily Bupropion Hcl 150 mg tablet extended release 24 hr Active 150 mg PO DAILY October 09, 2024 1:00am MOOD cephalexin 500 mg oral capsule (1 source) Cephalosporin Antibacterial Start: 11-10-2024 take 1 capsule by mouth every twelve hours Cephalexin 500 mg capsule Active 500 mg PO Q12H 14 7 0 November 10, 2024 1:00am clobetasol propionate 0.5 mg/ml topical solution (20 sources) Corticosteroid Start: 10-09-2024 Clobetasol 0.05 % solution Active 0 TOPICAL .COMPLEX October 09, 2024 1:00am SCALP APPLY TO THE SCALP ONCE DAILY IN THE EVENING FOR 2 WEEKS. RINSE OFF IN THE MORNING. TAKE ONE WEEK OFF BEFORE RESUMING NEEDED FOR FLARES. topically; Start: 10-10-2022 clobetasol (TE MOVATE) 0.05 % cream APPLY TO THE AFFECTED FLARES ON THE HANDS TWICE DAILY FOR 2 WEEKS THEN TAKE A WEEK OFF BEFORE RESUMING. 10/10/2022 Active Comment on above: APPLY TO THE AFFECTE D FLARES ON THE HANDS TWICE DAILY FOR 2 WEEKS THEN TAKE A WEEK OFF BEFORE RESUMING. DULoxetine 60 mg delayed release oral capsule (20 sources) Serotonin and Norepinephrine Reuptake Inhibitor Start: 014 End: 024 take 1 capsule by mouth once daily DULoxetine DR (CYMBALTA) 60 mg capsule Take 1 capsule by mouth once daily. 90 capsule 3 04/15/2025 Active Comment on above: Take [address] [facility] once daily. ergocalciferol 1.25 mg oral capsule (20 sources) Provitamin D2 Compound Start: 025 take 1 capsule by mouth two times weekly, then take 1 capsule by mouth two times weekly, then take 1 capsule by mouth every week ergocalciferol 50,000 unit capsule (VITAMIN D2, DRISDOL) Take 1 capsule by mouth two times a week. TO BE TAKEN ORALLY DIRECTED. Take 1 tablet by mouth twice weekly [id number], then decrease to 1 tablet weekly. 8 capsule 5 01/22/2025 Active ferrous sulfate 325 mg oral tablet (20 sources) Start: 024 End: 025 take 1 tablet by mouth once ferrous sulfate 325 mg (65 mg iron) tablet Indications: Iron deficiency anemia, unspecified iron deficiency anemia type , Anemia, unspecified type Take 1 tablet by mouth every Sunday, Sunday, and Sunday. 60 tablet 2 04/03/2025 Active Comment on above: Take 1 tablet by andrea th every Sunday, Sunday, and Sunday. gabapentin 600 mg oral tablet (20 sources) Anti-epileptic Agent Start: End: take 1 tablet by mouth at bedtime Gabapentin 600 mg tablet Active 600 mg PO AT BEDTIME October 09, 2024 1:00am PAIN Start: 05-12-2014 End: 10-09-2024 take 2 capsules by mouth at bedtime Gabapentin 300 MG capsule Discontinued 600 mg PO AT BEDTIME May 12, 2014 12:00am October 09, 2024 3:13pm NERVE PAIN Start: 05-12-2014 take 600 mg by mouth at bedtim e Gabapentin Active 600 MG PO AT BEDTIME May 11, 2014 11:00pm Comment on above: Take 1 tablet by andrea th daily at bedtime for 180 days. 3 ml insulin glargine 100 unt/ml pen injector (20 sources) Insulin Analog Start: 10-13-2024 Insulin Glargine (Lantus Solostar U-100 Insulin) 100 UNITS/ML insulin pen Active 12 U SC AT BEDTIME 0 30 0 October 13, 2024 1:49pm DM Hold if glucose less than 130 mg/dl Start: 03-20-2024 End: 02-09-2025 insulin glargine (LANTUS DALE OSTAR U-100 INSULIN) 100 unit/mL (3 mL) Indications: Type 2 diabetes mellitus with diabetic mononeuropathy, with long-term current use of insulin (HCC) Inject 25 Units subcutaneously daily at bedtime. 15 mL 3 02/09/2025 Active Start: 03-20-2024 End: 03-20-2024 insulin glargine (LANTUS DALE OSTAR U-100 INSULIN) 100 unit/mL (3 mL) Indications: Type 2 diabetes mellitus with diabetic mononeuropathy, with long-term current use of insulin (HCC) Inject 20 Units subcutaneously daily at bedtime. 15 mL 1 03/20/2024 03/20/2024 Discontinued Start: 02-05-2024 End: 03-20-2024 insulin glargine (LANTUS DALE OSTAR U-100 INSULIN) 100 unit/mL (3 mL) Indications: Type 2 diabetes mellitus with diabetic mononeuropathy, with long-term current use of insulin (HCC) Inject 30 Units subcutaneously daily at bedtime. 15 mL 1 02/05/2024 03/20/2024 Discontinued Start: 09-27-2023 End: 02-02-2024 insulin glargine (LANTUS DALE OSTAR U-100 INSULIN) 100 unit/mL (3 mL) Indications: Type 2 diabetes mellitus with diabetic mononeuropathy, with long-term current use of insulin (HCC) Inject 30 Units subcutaneously daily at bedtime. 0 09/27/2023 02/02/2024 Discontinued Start: 06-18-2023 insulin glargi ne (LANTUS SOLOSTAR U-100 INSULIN) 100 unit/mL (3 mL) Indications: Type 2 diabetes mellitus with diabetic mononeuropathy, with long-term current use of insulin (HCC) Inject 36 Units subcutaneously daily at bedtime. 5 Each 5 06/18/2023 Active Start: 08-01-2022 End: 06-18-2023 insulin glargine (LANTUS DALE OSTAR U-100 INSULIN) 100 unit/mL (3 mL) Indications: Type 2 diabetes mellitus with diabetic mononeuropathy, with long-term current use of insulin (HCC) Inject 36 Units subcutaneously daily at bedtime. 5 Each 5 06/18/2023 Active Start: 06-16-2021 End: 08-01-2022 insulin glargine (LANTUS DALE OSTAR U-100 INSULIN) 100 unit/mL (3 mL) Indications: Type 2 diabetes mellitus with diabetic mononeuropathy, with long-term current use of insulin (HCC) Inject 36 Units subcutaneously daily at bedtime. 5 Each 5 08/01/2022 Active Start: 05-12-2014 End: 10-13-2024 Insulin Glargine (Lantus Dale ostar U-100 Insulin) 100 UNITS/ML insulin pen Discontinued 24 U SC AT BEDTIME May 12, 2014 12:00am October 13, 2024 1:49pm DM Start: 05-12-2014 Insulin Glargi ne (Lantus Solostar U-100 Insulin) 100 UNITS/ML insulin pen Active 32 UNITS SC AT BEDTIME May 11, 2014 11:00pm Comment on above: Inject 36 Units subc utaneously daily at bedtime. Inject 30 Units subc utaneously daily at bedtime. iv contrast (will be provided with radiology test) (1 source) Start: 2023 End: 2023 inject 1 dose intravenously once iv contrast (will be provided with radiology test) Indications: Episode of change in speech , Balance problem CT Brain WO/W - No IV access, insert saline lock prior to the sedation, infusion, injection for imaging exam. Discontinue saline lock post exam. If Pt. has a central line or IVAD, may access for administration according to line specific nursing protocol. Once exam is complete flush line and de-access according to line specific nursing protocol in the CT contrast administration guidelines link. 1 Each 07/29/2024 07/30/2024 Active levothyroxine sodium 0.05 mg oral tablet (20 sources) l-Thyroxine Start: 2023 End: 2024 take 1 tablet by mouth once daily for thyroid dysfunction levothyroxine (SYNTHROID) 50 mcg tablet TAKE 1 TABLET BY MOUTH ONCE DAILY ON AN EMPTY STOMACH FOR THYROID 90 tablet 3 04/29/2025 Active Start: 08-22-2022 End: 02-22-2023 take 1 tablet by mouth once daily for thyroid dysfunction levothyroxine (LEVOXYL) 50 mcg tablet Take 1 tablet by mouth once daily. Take on empty stomach. For Thyroid 30 tablet 5 02/23/2023 Active Comment on above: Take 1 tablet by andrea th once daily. Take on empty stomach. For Thyroid TAKE 1 TABLET BY ANDREA TH ONCE DAILY ON AN EMPTY STOMACH FOR THYROID lovastatin 20 mg oral tablet (20 sources) HMG-CoA Reductase Inhibitor Start: 05-12-20 take 2 tablets by mouth every other day lovastatin (MEVACOR) 20 mg tablet Indications: Pure hypercholesterolemia Take 2 tablets by mouth every other day. 90 tablet 3 05/12/2025 Active Start: 05-25-2023 End: 05-12-2025 take 1 tablet by mouth every other day lovastatin (MEVACOR) 20 mg tablet Indications: Pure hypercholesterolemia Take 1 tablet by mouth every other day. 90 tablet 3 12/19/2024 05/12/2025 Discontinued (Adjust Sig - Block E-Cancel) Start: 11-22-2020 End: 05-25-2023 take 1 tablet by mouth once daily at bedtime lovastatin (MEVACOR) 20 mg tablet Take 1 tablet by mouth daily at bedtime. 90 tablet 1 11/22/2020 01/26/2022 Discontinued Comment on above: Take 1 tablet by andrea th daily at bedtime. Take 1 tablet by andrea th every other day. magnesium oxide 400 mg oral tablet (20 sources) Start: 02-09-2025 take 1 tablet by mouth twice daily magnesium oxide (MAGOX) 400 mg (241.3 mg magnesium) tablet Indications: Paroxysmal atrial fibrillation (HCC) , Hypomagnesemia Take 1 tablet by mouth two times a day. 180 tablet 3 02/09/2025 Active Start: 05-12-2021 End: 02-07-2025 take 1 tablet by mouth twice daily magnesium oxide (MAGOX) 400 mg (241.3 mg magnesium) tablet Indications: Paroxysmal atrial fibrillation (HCC) , Hypomagnesemia Take 1 tablet by mouth two times a day. 180 tablet 3 11/09/2023 02/07/2025 Discontinued Comment on above: Take 1 tablet by andrea th twice daily. Take 1 tablet by andrea th two times a day. meloxicam 15 mg oral tablet (9 sources) Nonsteroidal Anti-inflammatory Drug Start: 025 take 1 tablet by mouth once daily for pain meloxicam (MOBIC) 15 mg tablet Take 1 tablet by mouth once daily. for pain. Take with food. 30 tablet 2 03/25/2025 Active metoprolol tartrate 100 mg oral tablet (20 sources) beta-Adrenergic Tuan Start: 021 End: 024 take 1 tablet by mouth twice daily metoprolol tartrate, short acting, (LOPRESSOR) 100 mg tablet Indications: Paroxysmal atrial fibrillation (HCC) , Essential hypertension Take 1 tablet by mouth two times a day. 180 tablet 3 05/13/2024 Active Comment on above: Take 1 tablet by andrea th twice daily. perflutren lipid microspheres 1.3 mL in NaCl (PF) 0.9% 10 mL injection (DEFINITY) (20 sources) Start: 022 End: 023 perflutren lipid microspheres 1.3 mL in NaCl (PF) 0.9% 10 mL injection (DEFINITY) semaglutide (OZEMPIC) 1 mg/dose (4 mg/3 mL) pen (20 sources) Start: End: inject 1 mg by subcutaneous injection every week semaglutide (OZEMPIC) 1 mg/dose (4 mg/3 mL) pen Indications: Diabetic gastropathy (HCC) Inject 1 mg subcutaneously one time a week. 9 mL 1 01/19/2025 07/18/2025 Active Start: 07-18-2024 End: 01-19-2025 inject 1 mg by subcutaneous injection every week semaglutide (OZEMPIC) 1 mg/dose (4 mg/3 mL) pen Indications: Diabetic gastropathy (HCC) Inject 1 mg subcutaneously one time a week. 9 mL 1 07/18/2024 01/19/2025 Discontinued Start: 07-18-2024 inject 1 mg by subcu taneous injection every week semaglutide (OZEMPIC) 1 mg/dose (4 mg/3 mL) pen Indications: Diabetic gastropathy (HCC) Inject 1 mg subcutaneously one time a week. 9 mL 1 07/18/2024 Active Start: 07-18-2024 End: 01-14-2025 inject 1 mg by subcutaneous injection every week semaglutide (OZEMPIC) 1 mg/dose (4 mg/3 mL) pen Indications: Diabetic gastropathy (HCC) Inject 1 mg subcutaneously one time a week. 9 mL 1 07/18/2024 01/14/2025 Active Start: 06-18-2023 End: 11-09-2023 inject 1 mg by subcutaneous injection every week semaglutide (OZEMPIC) 1 mg/dose (4 mg/3 mL) pen Inject 1 mg subcutaneously one time a week. 2 Each 4 06/18/2023 11/09/2023 Discontinued Start: 06-18-2023 inject 1 mg by subcu taneous injection every week semaglutide (OZEMPIC) 1 mg/dose (4 mg/3 mL) pen Inject 1 mg subcutaneously one time a week. 2 Each 4 06/18/2023 Active Comment on above: Inject 1 mg subcutan eously one time a week. 125 ml sodium chloride 9 mg/ml prefilled syringe (20 sources) Start: 2 End: 3 sodium chloride 0.9 % (flush) 10 mL (BD POSIFLUSH) tamsulosin hydrochloride 0.4 mg oral capsule (20 sources) alpha-Adrenergic Tuan Start: take 0.8 mg by mouth once daily Tamsulosin Active 0.8 MG PO DAILY June 08, 2021 11:00pm Start: 11-08-2020 End: 12-19-2024 take 2 capsules by mouth once daily Tamsulosin 0.4 mg capsule Active 0.8 mg PO DAILY June 09, 2021 12:00am PROSTATE Comment on above: Take 2 capsules by m outh once daily. Take 2 capsules by m outh once daily torsemide 20 mg oral tablet (1 source) Loop Diuretic Start: 05-12-2025 End: 05-26-2025 take 1 tablet by mouth once daily torsemide (DEMADEX) 20 mg tablet Take 1 tablet by mouth once daily for 14 days. 14 tablet 05/12/2025 05/26/2025 Active warfarin sodium 2.5 mg oral tablet (20 sources) Vitamin K Antagonist Start: 06-29-2023 End: 01-19-2025 Warfarin 2.5 mg tablet Active 2.5 mg PO FRSA October 09, 2024 1:00am BLOOD THNNER Start: 12-12-2021 take 3 tablets by mo okh once daily warfarin (COUMADIN) 2.5 mg tablet Take by mouth daily or as directed by your physician 90 tablet 3 12/12/2021 Active Start: 06-09-2021 End: 10-09-2024 Warfarin 5 mg tablet Discont inued 7.5 mg PO SANTAMARIA June 09, 2021 12:00am October 09, 2024 8:20pm BLOOD THINNER Start: 06-09-2021 Warfarin Activ e 7.5 MG PO SANTAMARIA June 08, 2021 11:00pm Start: 12-22-2020 End: 01-19-2025 take 1 tablet by mouth once daily warfarin (COUMADIN) 5 mg tablet Take 1 tablet by mouth once daily. 30 tablet 11 05/27/2024 01/19/2025 Discontinued (Course of therapy completed) Start: 12-23-2019 End: 12-12-2021 warfarin (COUMADIN) 2.5 mg t ablet Take by mouth daily or as directed by your physician 30 tablet 11 12/23/2019 12/12/2021 Discontinued Comment on above: Take 1 tablet by andrea th once daily. Take by mouth daily or as directed by your physician TAKE 1 TABLET BY ANDREA TH ONCE DAILY OR DIRECTED Completed/Discontinued Medications Medication Drug Class(es) Dates Sig (Normalized) Sig (Original) albuterol 0.833 mg/ml / ipratropium bromide 0.167 mg/ml inhalation solution (20 sources) Anticholinergic, beta2-Adrenergic Agonist Start: 12-01-2022 End: 11-06-2023 take 3 mL by inhalation three times daily ipratropium-albuter ol (DUONEB) 0.5 mg-3 mg(2.5 mg base)/3 mL nebu Inhale 3 mL as instructed three times daily. 0 12/01/2022 11/06/2023 Discontinued (Discontinued by Patient) Start: 12-01-2022 End: 04-30-2023 take 20-100 ug by inhalation every four hours ipratropium 20 mcg-albuterol 100 mcg (COMBIVENT RESPIMAT) 20-100 mcg/actuation inhaler Inhale 1 Puff as instructed every 4 hours. 0 12/01/2022 04/30/2023 Discontinued (Course of therapy completed) Comment on above: Inhale 1 Puff as ins tructed every 4 hours. Inhale 3 mL as instr ucted three times daily. carvedilol 12.5 mg oral tablet (4 sources) alpha-Adrenergic Tuan, beta-Adrenergic Tuan Start: 4 End: 7 take 3 tablets by mouth twice daily Carvedilol 12.5 MG tablet Discontinued 37.5 mg PO TWICE A DAY May 12, 2014 12:00am December 22, 2016 2:20pm Start: 05-12-2014 End: 12-22-2016 take 37.5 mg by mouth twice daily Carvedilol Discontinued 37.5 MG PO TWICE A DAY May 11, 2014 11:00pm December 22, 2016 1:20pm ciprofloxacin 500 mg oral tablet (20 sources) Quinolone Antimicrobial Start: 10-13-2024 End: 12-19-2024 take 1 tablet by mouth twice daily ciprofloxacin HCl (CIPRO) 500 mg tablet Take 500 mg by mouth two times a day. 10/13/2024 12/19/2024 Discontinued cloNIDine hydrochloride 0.1 mg oral tablet (4 sources) Central alpha-2 Adrenergic Agonist Start: 05-12-2014 End: 10-09-2024 take 1 tablet by mouth twice daily Clonidine Hcl 0.1 MG tablet Discontinued 0.1 mg PO TWICE A DAY May 12, 2014 12:00am October 09, 2024 8:17pm BP furosemide 20 mg oral tablet (20 sources) Loop Diuretic Start: 05-05-2025 End: 05-12-2025 furosemide (LASIX) 20 mg tablet Take 40 mgs in the morning and 20 mgs in the afternoon for 5 days and then resume with 20 mgs once daily 05/05/2025 05/12/2025 Discontinued Start: 12-19-2024 End: 05-05-2025 take 1 tablet by mouth once daily furosemide (LASIX) 20 mg tablet Take 1 tablet by mouth once daily. 90 tablet 2 12/19/2024 05/05/2025 Discontinued hydroCHLOROthiazide 25 mg oral tablet (20 sources) Thiazide Diuretic Start: 05-12-2014 End: 11-21-2022 take 1 tablet by mouth once daily Hydrochlorothiazide 25 MG tablet Active 25 mg PO DAILY May 12, 2014 12:00am BP On Hold: Hold for 1 week and restart at lower dose 12.5 mg daily. Comment on above: Take 1 tablet by andrea th once daily. Take 1 tablet by andrea th once daily ipratropium/albuterol sulfate (COMBIVENT INHALATION) (20 sources) End: 11-13-2022 take 1 puff(s) by inhalation four times daily as needed ipratropium/albuterol sulfate (COMBIVENT INHALATION) Inhale as instructed. 1 puff four times a day as needed 11/13/2022 Discontinued (Course of therapy completed) End: 11-13-2022 take 1 puff(s) by inhalation four times daily as needed ipratropium/albuterol sulfate (COMBIVENT INHALATION) Inhale as instructed. 1 puff four times a day as needed 0 11/13/2022 Discontinued (Course of therapy completed) take 1 puff(s) by in halation four times daily as needed ipratropium/albuterol sulfate (COMBIVENT INHALATION) Inhale as instructed. 1 puff four times a day as needed 0 Active Comment on above: Inhale as instructed . 1 puff four times a day as needed 10 ml iron sucrose 20 mg/ml injection (5 sources) Parenteral Iron Replacement Start: 11-05-2024 End: 11-05-2024 200 mg, INTRAVENOUS, ONCE, 1 dose, On Sun11/05/24 at 1400, Please conduct a 30 minute post dose observation. Start: 11-03-2024 End: 11-03-2024 200 mg, INTRAVENOUS, ONCE, 1 dose, On Sun11/03/24 at 1100, Please conduct a 30 minute post dose observation. Start: 10-31-2024 End: 10-31-2024 200 mg, INTRAVENOUS, ONCE, 1 dose, On Sun10/31/24 at 1030, Please conduct a 30 minute post dose observation. Start: 10-29-2024 End: 10-29-2024 200 mg, INTRAVENOUS, ONCE, 1 dose, On Sun10/29/24 at 1030, Please conduct a 30 minute post dose observation. Start: 10-27-2024 End: 10-27-2024 200 mg, INTRAVENOUS, ONCE, 1 dose, On Sun10/27/24 at 1000, Please conduct a 30 minute post dose observation. iron sucrose iv piggyback 20 0 mg in NaCl 0.9% 100 mL (VENOFER) (5 sources) Start: 01-25-2024 End: 01-25-2024 iron sucrose iv piggyback 20 0 mg in NaCl 0.9% 100 mL (VENOFER) Start: 01-23-2024 End: 01-23-2024 iron sucrose iv piggyback 20 0 mg in NaCl 0.9% 100 mL (VENOFER) Start: 01-21-2024 End: 01-21-2024 iron sucrose iv piggyback 20 0 mg in NaCl 0.9% 100 mL (VENOFER) Start: 01-17-2024 End: 01-17-2024 iron sucrose iv piggyback 20 0 mg in NaCl 0.9% 100 mL (VENOFER) Start: 01-15-2024 End: 01-15-2024 iron sucrose iv piggyback 20 0 mg in NaCl 0.9% 100 mL (VENOFER) ketoconazole 20 mg/ml medicated shampoo (1 source) Azole Antifungal Start: 10-09-2024 End: 10-09-2024 Ketoconazole 2 % shampoo Discontinued TOPICAL October 09, 2024 1:00am October 09, 2024 8:19pm lisinopril 40 mg oral tablet (20 sources) Angiotensin Converting Enzyme Inhibitor Start: 05-12-2014 End: 05-25-2025 take 1 tablet by mouth once daily Lisinopril 40 MG tablet Active 40 mg PO DAILY May 12, 2014 12:00am BP On Hold: Hold for 1 week and follow with BMP with PCP Comment on above: Take 1 tablet by andrea th once daily. 24 hr metFORMIN hydrochloride 500 mg extended release oral tablet (20 sources) Biguanide Start: 02-21-2023 End: 08-10-2023 take 1 tablet by mouth once daily at breakfast metFORMIN ER (GLUCOPHAGE XR) 500 mg 24 hr tablet Take 1 tablet by mouth daily with breakfast. 360 tablet 3 08/10/2023 Active Start: 06-17-2021 End: 02-21-2023 take 2 tablets by mouth twice daily metFORMIN ER (GLUCOPHAGE XR) 500 mg 24 hr tablet Take 2 tablets by mouth twice daily. 360 tablet 3 06/16/2022 02/21/2023 Discontinued (Adjust Sig - Block E-Cancel) Start: 05-12-2014 End: 10-09-2024 take 2 tablets by mouth twice daily at mealtime Metformin 500 MG tablet Discontinued 1000 mg PO TWICE DAILY WITH MEALS May 12, 2014 12:00am October 09, 2024 8:19pm DM Start: 05-12-2014 take 1000 mg by mout h twice daily at mealtime Metformin Active 1000 MG PO TWICE DAILY WITH MEALS May 11, 2014 11:00pm Comment on above: Take 2 tablets by mo ut twice daily. Take 1 tablet by andrea th daily with breakfast. MULTIVITAMIN ORAL TAB (1 source) Start: 05-19-20 End: 09-26-19 take 1 tablet by mouth once daily MULTIVITAMIN ORAL TAB Take one(1) tablet daily. 0 05/19/2005 09/26/2021 Discontinued pantoprazole 40 mg delayed release oral tablet (4 sources) Proton Pump Inhibitor Start: 09-07-20 End: 01-28-20 take 1 tablet by mouth twice daily before mealtime pantoprazole DR (PROTONIX) 40 mg tablet Take 1 tablet by mouth twice daily. Take on empty stomach, 1/2 hr before meal. 60 tablet 2 09/07/2021 01/27/2022 Discontinued (Discontinued by Patient) Comment on above: Take 1 tablet by andrea twice daily. Take on empty stomach, 1/2 hr before meal. polysaccharide iron complex 150 mg oral capsule (20 sources) Start: 12-13-19 take 1 capsule by mouth twice daily iron polysaccharide complex (FERREX 150) 150 mg iron capsule Indications: Iron deficiency anemia secondary to inadequate dietary iron intake , Gastrointestinal hemorrhage, unspecified gastrointestinal hemorrhage type Take 1 capsule by mouth twice daily. 180 capsule 3 12/12/2022 Active Start: 09-26-2021 End: 05-09-2022 take 1 capsule by mouth twice daily iron polysaccharide complex (FERREX 150) 150 mg iron capsule Indications: Iron deficiency anemia secondary to inadequate dietary iron intake , Gastrointestinal hemorrhage, unspecified gastrointestinal hemorrhage type Take 1 capsule by mouth twice daily. 180 capsule 3 05/09/2022 Active Comment on above: Take 1 capsule by [facility] twice daily. potassium chloride 20 meq extended release oral tablet (20 sources) Start: 07-10-2024 End: 10-09-2024 take 2 tablets by mouth once daily Potassium Chloride 20 mEq tablet extended release Discontinued 40 meq PO DAILY 10 July 10, 2024 12:00am October 09, 2024 8:20pm Start: 05-12-2014 End: 12-19-2024 take 1 tablet by mouth twice daily potassium chloride (KLOR-CON 10) 10 mEq tablet Indications: Hypokalemia Take 1 tablet by mouth two times a day. 180 tablet 3 12/19/2024 Active Comment on above: Take 1 tablet by andrea twice daily. Take 1 tablet by andrea two times a day. 0.25 mg, 0.5 mg dose 1.5 ml semaglutide 1.34 mg/ml pen injector (5 sources) Start: 021 End: 022 inject 0.25 mg by subcutaneous injection every week, then inject 0.5 mg by subcutaneous injection every week semaglutide (OZEMPIC) 0.25 mg or 0.5 mg(2 mg/1.5 mL) pen injector Inject 0.25 mg subcutaneously once weekly for 4 weeks. After that can increase to 0.5 mg once weekly 1.5 mL 2 07/21/2021 01/27/2022 Discontinued (Dosage adjustment) Comment on above: Inject 0.25 mg subcu taneously once weekly for 4 weeks. After that can increase to 0.5 mg once weekly semaglutide (OZEMPIC) 1 mg/dose (4 mg/3 mL) pen (20 sources) Start: End: inject 1 mg by subcutaneous injection every week semaglutide (OZEMPIC) 1 mg/dose (4 mg/3 mL) pen Inject 1 mg subcutaneously one time a week. 2 Each 4 09/08/2022 06/18/2023 Discontinued Start: 09-08-2022 inject 1 mg by subcu taneous injection every week semaglutide (OZEMPIC) 1 mg/dose (4 mg/3 mL) pen Inject 1 mg subcutaneously one time a week. 2 Each 4 09/08/2022 Active Comment on above: Inject 1 mg subcutan eously one time a week. semaglutide (OZEMPIC) 1 mg/dose (4 mg/3 mL) pen injector (20 sources) Start: inject 1 mg by subcutaneous injection every week semaglutide (OZEMPIC) 1 mg/dose (4 mg/3 mL) pen injector Inject 1 mg subcutaneously one time a week. 2 Each 4 04/14/2022 Active Start: 11-21-2021 End: 04-14-2022 inject 1 mg by subcutaneous injection every week semaglutide (OZEMPIC) 1 mg/dose (4 mg/3 mL) pen injector Inject 1 mg subcutaneously one time a week. 2 Each 4 11/21/2021 04/14/2022 Discontinued Start: 11-21-2021 inject 1 mg by subcu taneous injection every week semaglutide (OZEMPIC) 1 mg/dose (4 mg/3 mL) pen injector Inject 1 mg subcutaneously one time a week. 2 Each 4 11/21/2021 Active Comment on above: Inject 1 mg subcutan eously one time a week. semaglutide (OZEMPIC) 2 mg/dose (8 mg/3 mL) pen injector (20 sources) Start: End: inject 2 mg by subcutaneous injection every week semaglutide (OZEMPIC) 2 mg/dose (8 mg/3 mL) pen injector Inject 2 mg subcutaneously one time a week. 9 mL 1 05/13/2024 07/18/2024 Discontinued Start: 05-13-2024 inject 2 mg by subcu taneous injection every week semaglutide (OZEMPIC) 2 mg/dose (8 mg/3 mL) pen injector Inject 2 mg subcutaneously one time a week. 9 mL 1 05/13/2024 Active Start: 11-09-2023 End: 05-13-2024 inject 2 mg by subcutaneous injection every week semaglutide (OZEMPIC) 2 mg/dose (8 mg/3 mL) pen injector Inject 2 mg subcutaneously one time a week. 9 mL 1 11/09/2023 05/13/2024 Discontinued Start: 11-09-2023 inject 2 mg by subcu taneous injection every week semaglutide (OZEMPIC) 2 mg/dose (8 mg/3 mL) pen injector Inject 2 mg subcutaneously one time a week. 9 mL 1 11/09/2023 Active Comment on above: Inject 2 mg subcutan eously one time a week. spironolactone 25 mg oral tablet (20 sources) Aldosterone Antagonist Start: 2022 take 1 tablet by mouth once daily spironolactone (ALDACTONE) 25 mg tablet Take 1 tablet by mouth once daily. 30 tablet 3 11/21/2022 Active Comment on above: Take 1 tablet by [facility] once daily. vitamin b12 1 mg/ml injectable solution (20 sources) Vitamin B12 Start: 2024 End: 2024 inject 1 dose by intramuscular injection once 1,000 mcg, INTRAMUSCULAR, ONCE, 1 dose, On [place] 04/30/25 at 0930 Start: 04-02-2025 End: 04-02-2025 inject 1 dose by intramuscular injection once 1,000 mcg, INTRAMUSCULAR, ONCE, 1 dose, On [employer] 04/02/25 at 1030 Start: 03-05-2025 End: 03-05-2025 inject 1 dose by intramuscular injection once 1,000 mcg, INTRAMUSCULAR, ONCE, 1 dose, On [employer] 03/05/25 at 1530 Start: 02-05-2025 End: 02-05-2025 inject 1 dose by intramuscular injection once 1,000 mcg, INTRAMUSCULAR, ONCE, 1 dose, On [employer] 02/05/25 at 1530 Start: 01-08-2025 End: 01-08-2025 inject 1 dose by intramuscular injection once 1,000 mcg, INTRAMUSCULAR, ONCE, 1 dose, On [employer] 01/08/25 at 1530 Start: 12-11-2024 End: 12-11-2024 inject 1 dose by intramuscular injection once 1,000 mcg, INTRAMUSCULAR, ONCE, 1 dose, On [employer] 12/11/24 at 1530 Start: 11-13-2024 End: 11-13-2024 inject 1 dose by intramuscular injection once 1,000 mcg, INTRAMUSCULAR, ONCE, 1 dose, On [employer] 11/13/24 at 1530 Start: 10-16-2024 End: 10-16-2024 inject 1 dose by intramuscular injection once 1,000 mcg, INTRAMUSCULAR, ONCE, 1 dose, On [employer] 10/16/24 at 1330 Start: 08-20-2024 End: 08-20-2024 inject 1 dose by intramuscular injection once 1,000 mcg, INTRAMUSCULAR, ONCE, 1 dose, On 08/20/24 at 1400 Start: 06-25-2024 End: 06-25-2024 inject 1 dose by intramuscular injection once 1,000 mcg, INTRAMUSCULAR, ONCE, 1 dose, On Sun06/25/24 at 1400 Start: 05-28-2024 End: 05-28-2024 inject 1 dose by intramuscular injection once 1,000 mcg, INTRAMUSCULAR, ONCE, 1 dose, On Sun05/28/24 at 1400 Start: 04-30-2024 End: 04-30-2024 inject 1 dose by intramuscular injection once 1,000 mcg, INTRAMUSCULAR, ONCE, 1 dose, On 04/30/24 at 1400 Start: 04-02-2024 End: 04-02-2024 cyanocobalamin 1,000 mcg inj ection Start: 03-05-2024 End: 03-05-2024 cyanocobalamin 1,000 mcg inj ection Start: 02-06-2024 End: 02-06-2024 cyanocobalamin 1,000 mcg inj ection Start: 01-31-2024 End: 01-31-2024 cyanocobalamin 1,000 mcg inj ection Start: 01-21-2024 End: 05-13-2024 cyanocobalamin 1,000 mcg inj ection Start: 01-15-2024 End: 01-15-2024 cyanocobalamin 1,000 mcg inj ection Start: 09-01-2021 End: 08-03-2022 cyanocobalamin 1,000 mcg inj ection Problems Active Problems Problem Classification Problem Date Documented Da te Episodic/Chronic Abdominal pain (1 source) Unspecified abdominal pain; Translations: [Unspecified abdominal pain] Onset: 8 Episodic Alcohol-related disorders (1 source) Alcoholic cirrhosis of liver without ascites; Translations: [Alcoholic cirrhosis, unspecified whether ascites present (HCC)] Onset: 5 Chronic Cancer; other and unspecified primary (20 sources) Malignant melanoma of choroid; Translations: [Malignant neoplasm of unspecified choroid] Onset: 2 Resolved: 0 08-20-2012 Chronic Cardiac dysrhythmias (20 sources) Paroxysmal atrial fibrillation; Translations: [Cardiac arrhythmia, unspecified] Onset: 2 Resolved: 8 11-23-2015 Chronic Cataract (20 sources) Nuclear senile cataract; Translations: [Age-related nuclear cataract, bilateral] Onset: 8 10-09-2017 Chronic Chronic kidney disease (20 sources) Chronic kidney disease stage 3A ; Translations: [Stage 3a chronic kidney disease] Onset: 4 09-26-2021 Chronic Coagulation and hemorrhagic disorders (20 sources) Platelet count below reference range; Translations: [Thrombocytopenia, unspecified] Onset: 2 09-26-2021 Chronic Conduction disorders (20 sources) Cardiac defibrillator in situ; Translations: [Presence of automatic (implantable) cardiac defibrillator] Onset: 2 09-05-2021 Chronic Congestive heart failure; nonhypertensive (20 sources) Chronic systolic heart failure; Translations: [Chronic systolic (congestive) heart failure] Onset: 5 09-23-2023 Chronic Coronary atherosclerosis and other heart disease (20 sources) Atherosclerotic heart disease of [place] coronary artery without angina pectoris; Translations: [Coronary atherosclerosis] Onset: 2 Resolved: 1 07-05-2015 Chronic Deficiency and other anemia (1 source) Other pancytopenia; Translations: [Pancytopenia (HCC)] Onset: 5 Chronic Deficiency and other anemia (2 sources) Iron deficiency anemia secondary to blood loss (chronic); Translations: [Iron deficiency anemia due to chronic blood loss] Onset: 5 Chronic Deficiency and other anemia (6 sources) Iron deficiency anemia; Translations: [Iron deficiency anemia, unspecified] Episodic Deficiency and other anemia (7 sources) Anemia; Translations: [Anemia, unspecified] 11-06-2023 Episodic Deficiency and other anemia (1 source) Other iron deficiency anemias; Translations: [Iron deficiency anemia secondary to inadequate dietary iron intake] Onset: 5 Episodic Diabetes mellitus with complications (20 sources) Type 2 diabetes mellitus; Translations: [Type 2 diabetes mellitus with diabetic mononeuropathy] Onset: 1 Resolved: 0 02-15-2020 Chronic Diabetes mellitus without complication (1 source) Diabetes mellitus without complication; Translations: [Type 2 diabetes mellitus with stage 3a chronic kidney disease, with long-term current use of insulin ([facility])] Onset: 2 Disorders of lipid metabolism (20 sources) Pure hyperglyceridemia; Translations: [Pure hyperglyceridemia] Onset: 7 07-09-2007 Chronic Esophageal disorders (20 sources) Gastroesophageal reflux disease; Translations: [Gastro-esophageal reflux disease without esophagitis] 05-18-2005 Chronic Essential hypertension (20 sources) Essential (primary) hypertension; Translations: [Essential hypertension] Onset: 6 Resolved: 7 11-23-2015 Chronic Gastrointestinal hemorrhage (1 source) Gastrointestinal hemorrhage; Translations: [Gastrointestinal hemorrhage, unspecified] Episodic Genitourinary symptoms and ill-defined conditions (10 sources) Nocturia; Translations: [Nocturia] Onset: 5 Episodic Gout and other crystal arthropathies (1 source) Gout, unspecified; Translations: [Uric acid arthropathy] Onset: 5 Chronic Hepatitis (20 sources) Nonalcoholic steatohepatitis; Translations: [Nonalcoholic steatohepatitis (ADAN)] Onset: 4 11-18-2013 Chronic Hypertension with complications and secondary hypertension (20 sources) Hypertensive renal disease; Translations: [Hypertensive chronic kidney disease with stage 1 through stage 4 chronic kidney disease, or unspecified chronic kidney disease] Onset: 2 10-06-2021 Chronic Immunizations and screening for infectious disease (4 sources) Needs influenza immunization; Translations: [Encounter for immunization] Onset: 5 05-25-2023 Episodic Mood disorders (20 sources) Recurrent major depression in partial remission; Translations: [Major depressive disorder, recurrent, in partial remission] Onset: 1 02-15-2020 Chronic Noninfectious gastroenteritis (1 source) Colitis; Translations: [Noninfective gastroenteritis and colitis, unspecified] 07-18-2024 Episodic Nutritional deficiencies (3 sources) Vitamin D deficiency; Translations: [Vitamin D deficiency, unspecified] Onset: 5 01-19-2025 Chronic Nutritional deficiencies (20 sources) Cobalamin deficiency; Translations: [Deficiency of other specified B group vitamins] Onset: 4 01-02-2024 Episodic Open wounds of extremities (3 sources) Dog bite of elbow; Translations: [Open bite, left elbow, initial encounter] Onset: 5 05-26-2025 Episodic Open wounds of extremities (1 source) Tear of skin; Translations: [Laceration without foreign body of right forearm, initial encounter] 05-26-2025 Episodic Osteoarthritis (7 sources) Osteoarthritis of joint of left wrist; Translations: [Primary osteoarthritis, left wrist] Onset: 5 Chronic Other aftercare (20 sources) Long-term current use of anticoagulant; 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] Onset: 6 05-29-2016 Episodic Other aftercare (2 sources) Patient encounter status; 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] 09-23-2023 Episodic Other aftercare (1 source) Post-discharge follow-up; Translations: [Encounter for follow-up examination after completed treatment for conditions other than malignant neoplasm] 07-18-2024 Episodic Other aftercare (2 sources) 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; Translations: [On continuous oral anticoagulation] Onset: 5 Episodic Other aftercare (1 source) Encounter for follow-up examination after completed treatment for conditions other than malignant neoplasm; Translations: [Hospital discharge follow-up] Onset: 5 Episodic Other aftercare (2 sources) [facility] (current) use of insulin; Translations: [Type 2 diabetes mellitus with diabetic mononeuropathy, with long-term current use of insulin (HCC)] Onset: 2 Episodic Other and ill-defined heart disease (1 source) Diastolic dysfunction; Translations: [Other ill-defined heart diseases] Chronic Other connective tissue disease (2 sources) Ganglion cyst; Translations: [Ganglion, unspecified site] Episodic Other connective tissue disease (4 sources) Pain in right foot; Translations: [Pain in right foot] 02-13-2025 Episodic Other gastrointestinal disorders (20 sources) Malabsorption - iron; Translations: [Intestinal malabsorption, unspecified] Onset: 1 09-05-2021 Chronic Other gastrointestinal disorders (2 sources) Intestinal malabsorption, unspecified; Translations: [Iron malabsorption (HCC)] Onset: 1 Chronic Other gastrointestinal disorders (20 sources) Diarrhea; Translations: [Diarrhea, unspecified] Resolved: 1 08-09-2021 Episodic Other inflammatory condition of skin (20 sources) Psoriatic arthritis; Translations: [Arthropathic psoriasis, unspecified] Onset: 4 Chronic Other inflammatory condition of skin (1 source) Other psoriatic arthropathy; Translations: [Other psoriatic arthropathy] Onset: 4 Chronic Other inflammatory condition of skin (1 source) Arthropathic psoriasis, unspecified; Translations: [Psoriatic arthritis (HCC)] Onset: 4 Chronic Other injuries and conditions due to external causes (1 source) Rupture of muscle; Translations: [Other injury of unspecified body region, initial encounter] 03-04-2024 Episodic Other liver diseases (20 sources) Chronic nonalcoholic liver disease; Translations: [Other specified diseases of liver] 05-18-2005 Chronic Other liver diseases (20 sources) Non-alcoholic fatty liver; Translations: [Fatty (change of) liver, not elsewhere classified] Onset: 2 09-27-2021 Chronic Other liver diseases (20 sources) Fatty (change of) liver, not elsewhere classified; Translations: [Other chronic nonalcoholic liver disease] Onset: 2 01-18-2022 Chronic Other liver diseases (1 source) Portal hypertension; Translations: [Portal hypertension (HCC)] Onset: 5 Chronic Other liver diseases (2 sources) Alkaline phosphatase raised; Translations: [Abnormal levels of other serum enzymes] 11-06-2023 Episodic Other lower respiratory disease (1 source) Dyspnea; Translations: [Shortness of breath] 10-10-2024 Episodic Other nervous system disorders (20 sources) Right tarsal tunnel syndrome; Translations: [Tarsal tunnel syndrome, right lower limb] Onset: 9 05-29-2019 Chronic Other nervous system disorders (1 source) Metabolic encephalopathy; Translations: [Metabolic encephalopathy] 10-09-2024 Chronic Other nervous system disorders (2 sources) Disturbance in speech; Translations: [Other speech disturbances] 08-08-2024 Episodic Other nervous system disorders (2 sources) Impairment of balance; Translations: [Other abnormalities of gait and mobility] 08-08-2024 Episodic Other non-traumatic joint disorders (2 sources) Arthritis of right hip 03-25-2025 Chronic Other non-traumatic joint disorders (1 source) Pain of left wrist; Translations: [Pain in left wrist] Episodic Other non-traumatic joint disorders (4 sources) Acute ankle pain; Translations: [Pain in right ankle and joints of right foot] 02-13-2025 Episodic Other non-traumatic joint disorders (2 sources) Hip pain; Translations: [Pain in right hip] 03-25-2025 Episodic Other nutritional; endocrine; and metabolic disorders (20 sources) Hypomagnesemia; Translations: [Hypomagnesemia] Onset: 0 05-31-2020 Chronic Other nutritional; endocrine; and metabolic disorders (20 sources) Obese class II; Translations: [Obesity, unspecified] Onset: 2 10-31-2021 Chronic Other nutritional; endocrine; and metabolic disorders (20 sources) Morbid obesity; Translations: [Morbid (severe) obesity due to excess calories] Chronic Other nutritional; endocrine; and metabolic disorders (20 sources) Obese class I; Translations: [Obesity, unspecified] Onset: 4 09-23-2023 Chronic Other nutritional; endocrine; and metabolic disorders (1 source) Severe obesity; Translations: [Class 2 severe obesity due to excess calories with serious comorbidity and body mass index (BMI) of 39.0 to 39.9 in adult (HCC)] 02-28-2025 Chronic Other nutritional; endocrine; and metabolic disorders (1 source) Morbid (severe) obesity due to excess calories; Translations: [Morbid obesity (HCC)] Onset: 3 Chronic Other nutritional; endocrine; and metabolic disorders (3 sources) Weight increased; Translations: [Abnormal weight gain] 12-19-2024 Episodic Other nutritional; endocrine; and metabolic disorders (1 source) Abnormal weight gain; Translations: [Weight gain] Onset: 5 Episodic Other screening for suspected conditions (not mental disorders or infectious disease) (3 sources) Imaging of liver abnormal; Translations: [Abnormal findings on diagnostic imaging of liver and biliary tract] Onset: 5 11-06-2023 Episodic Other upper respiratory infections (4 sources) Upper respiratory infection; Translations: [Acute upper respiratory infection, unspecified] 06-20-2021 Episodic Amy-; endo-; and myocarditis; cardiomyopathy (except that caused by tuberculosis or sexually transmitted disease) (4 sources) Cardiomyopathy; Translations: [Other cardiomyopathies] Onset: 5 03-23-2025 Chronic Residual codes; unclassified (20 sources) Obstructive sleep apnea syndrome; Translations: [Obstructive sleep apnea (adult) (pediatric)] Onset: 2 Chronic Residual codes; unclassified (1 source) Dependence on wheelchair; Translations: [Dependence on wheelchair] 10-31-2024 Chronic Residual codes; unclassified (1 source) Obstructive sleep apnea (adult) (pediatric); Translations: [BOSTON on CPAP] Onset: 1 Chronic Residual codes; unclassified (1 source) Tobacco user; Translations: [Tobacco use] Episodic Residual codes; unclassified (1 source) Severe pain; Translations: [Pain, unspecified] 02-25-2024 Episodic Residual codes; unclassified (1 source) Memory impairment; Translations: [Other amnesia] 10-10-2024 Episodic Residual codes; unclassified (1 source) Edema of lower extremity; Translations: [Localized edema] 03-04-2024 Episodic Residual codes; unclassified (1 source) Altered mental status, unspecified; Translations: [Altered mental status, unspecified altered mental status type] Onset: 5 Episodic Retinal detachments; defects; vascular occlusion; and retinopathy (20 sources) 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; Translations: [Nonexudative age-related macular degeneration, left eye, stage unspecified] Onset: 5 03-30-2015 Chronic Spondylosis; intervertebral disc disorders; other back problems (1 source) Thoracic back pain; Translations: [Other dorsalgia] 09-07-2021 Episodic Superficial injury; contusion (5 sources) Contusion of trunk; Translations: [Contusion of abdominal wall, initial encounter] 12-23-2016 Episodic Thyroid disorders (20 sources) Hypothyroidism; Translations: [Hypothyroidism, unspecified] Onset: 3 Chronic Unclassified (2 sources) Unknown / UNK(Unknown) Onset: 8 Unclassified (2 sources) Chronic atrial fibrillation, unspecified; Translations: [Chronic atrial fibrillation, unspecified] Onset: 5 Unclassified (1 source) Other persistent atrial fibrillation; Translations: [Persistent atrial fibrillation (HCC)] Onset: 5 Past or Other Problems Problem Classification Problem Date Documented Date Episodic/Chronic Blindness and vision defects (20 sources) Disorder of refraction; Translations: [Unspecified disorder of refraction] Onset: 10-28-2019 10-28-2019 Episodic Calculus of urinary tract (2 sources) Ureteric stone; Translations: [Calculus of ureter] Onset: 10-13-2024 10-11-2024 Episodic Cancer; other and unspecified primary (20 sources) Malignant melanoma of left choroid; Translations: [Malignant neoplasm of left choroid] Onset: 03-30-2015 Resolved: 02-15-2020 Chronic Cancer; other and unspecified primary (20 sources) History of malignant melanoma of eye; Translations: [Personal history of malignant neoplasm of eye] Onset: 09-30-2015 02-15-2020 Episodic Coma; stupor; and brain damage (20 sources) Drowsy; Translations: [Somnolence] Onset: 06-09-2009 Resolved: 07-05-2015 07-05-2015 Episodic Conditions associated with dizziness or vertigo (2 sources) Dizziness; Translations: [Dizziness and giddiness] Onset: 08-25-2024 08-25-2024 Episodic Deficiency and other anemia (20 sources) Iron deficiency anemia secondary to inadequate dietary iron intake; Translations: [Other iron deficiency anemias] Onset: 09-05-2021 Episodic Deficiency and other anemia (2 sources) Anemia, unspecified; Translations: [Symptomatic anemia] Onset: 03-25-2025 Episodic Deficiency and other anemia (1 source) Iron deficiency anemia, unspecified; Translations: [Iron deficiency anemia, unspecified iron deficiency anemia type] Onset: 04-02-2025 Episodic Diabetes mellitus without complication (20 sources) Diabetes mellitus; Translations: [Type 2 diabetes mellitus without complications] Onset: 07-09-2007 Resolved: 02-15-2020 07-05-2015 Chronic E Codes: Fall (5 sources) Fall; Translations: [Unspecified fall, sequela] Onset: 01-19-2025 01-19-2025 Episodic E Codes: Fall (1 source) Fall 01-19-2025 Fluid and electrolyte disorders (20 sources) Hypokalemia; Translations: [Hypokalemia] Onset: 05-25-2014 05-25-2014 Episodic Malaise and fatigue (8 sources) Fatigue; Translations: [Other fatigue] Onset: 10-09-2024 10-10-2024 Episodic Other aftercare (20 sources) 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; 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] Onset: 05-29-2016 04-30-2023 Episodic Other and unspecified benign neoplasm (20 sources) History of polyp of colon; Translations: [Personal history of colonic polyps] Onset: 03-20-2005 05-18-2005 Episodic Other and unspecified benign neoplasm (20 sources) Benign neoplasm of skin of upper limb; Translations: [Other benign neoplasm of skin of unspecified upper limb, including shoulder] Onset: 08-22-2005 08-22-2005 Episodic Other and unspecified benign neoplasm (20 sources) Benign neoplasm of adrenal gland; Translations: [Benign neoplasm of unspecified adrenal gland] Onset: 04-09-2008 04-09-2008 Episodic Other and unspecified benign neoplasm (20 sources) Benign neoplasm of choroid; Translations: [Benign neoplasm of unspecified choroid] Onset: 08-20-2012 08-20-2012 Episodic Other and unspecified benign neoplasm (20 sources) Nevus of choroid; Translations: [Benign neoplasm of unspecified choroid] Onset: 09-25-2013 09-25-2013 Episodic Other connective tissue disease (20 sources) Polymyalgia rheumatica; Translations: [Polymyalgia rheumatica] Onset: 02-01-2012 Resolved: 02-16-2017 09-05-2021 Chronic Other connective tissue disease (20 sources) Tendinitis; Translations: [Enthesopathy, unspecified] Onset: 01-16-2011 01-16-2011 Episodic Other connective tissue disease (20 sources) Ganglion of wrist; Translations: [Ganglion, unspecified wrist] Onset: 12-08-2011 12-08-2011 Episodic Other connective tissue disease (20 sources) Enthesopathy; Translations: [Enthesopathy, unspecified] Onset: 12-21-2010 Resolved: 08-09-2021 08-09-2021 Episodic Other connective tissue disease (1 source) Pain in right foot; Translations: [Foot pain, right] Onset: 02-13-2025 Episodic Other disorders of stomach and duodenum (1 source) Other diseases of stomach and duodenum; Translations: [Diabetic gastropathy (HCC)] Onset: 01-19-2025 Episodic Other lower respiratory disease (2 sources) Shortness of breath; Translations: [Shortness of breath] Onset: 10-09-2024 Episodic Other nervous system disorders (1 source) Other speech disturbances; Translations: [Episode of change in speech] Onset: 08-08-2024 Episodic Other nervous system disorders (1 source) Other abnormalities of gait and mobility; Translations: [Balance problem] Onset: 08-08-2024 Episodic Other non-traumatic joint disorders (1 source) Pain in right hip; Translations: [Pain of right hip] Onset: 03-25-2025 Episodic Other non-traumatic joint disorders (1 source) Pain in right ankle and joints of right foot; Translations: [Acute right ankle pain] Onset: 02-13-2025 Episodic Other nutritional; endocrine; and metabolic disorders (20 sources) Body mass index 40+ - severely obese; Translations: [Body mass index (BMI) 40.0-44.9, adult] Onset: 05-25-2014 Resolved: 12-03-2017 11-05-2015 Chronic Other nutritional; endocrine; and metabolic disorders (20 sources) Body mass index 30+ - obesity; Translations: [Body mass index (BMI) 38.0-38.9, adult] Onset: 11-05-2015 Resolved: 02-21-2016 02-21-2016 Chronic Residual codes; unclassified (1 source) Illness, unspecified; Translations: [Illness, unspecified] Onset: 07-30-2024 Episodic Residual codes; unclassified (1 source) Other amnesia; Translations: [Memory change] Onset: 10-09-2024 Episodic Substance-related disorders (20 sources) Tobacco user; Translations: [Nicotine dependence, unspecified, uncomplicated] Resolved: 11-10-2016 09-05-2021 Chronic Unclassified (20 sources) SUMMARY Onset: 03-06-2012 Resolved: 08-09-2021 09-05-2021 Urinary tract infections (4 sources) Urinary tract infectious disease; Translations: [Urinary tract infection, site not specified] Onset: 10-13-2024 11-18-2024 Episodic Results Test Name Value Interpretation Reference Range Facility Bacteria Ur Culton Bacteria identified Cx Nom (U) Abnormal [facility] Comment on above: Performed By: #### 6 30-4 ####[facility] LABCLIA [id number] [place] [address] [place] CNOVon 07-13-2025 CNOV Normal [facility] CNPNon 07-13-2025 CNPN Normal [facility] AFP L3% AND TOTAL HEP CAon 1 AFP L3% <0.5 Normal 0.0-9.9 [facility] Comment on above: Order Comment: Speci men Type: BLOOD SPECIMENOrdering Facility: [facility] Address: [address] [place] [address] Result Comment: INTE RPRETIVE INFORMATION: Alpha Fetoprotein L3 PercentThe [facility] method is used. Results obtained with different assaymethods or kits cannot be used interchangeably.The AFP-L3 Percent assay is intended as a risk assessment for thedevelopment of hepatocellular carcinoma in patients with chronicliver diseases.Patients with elevated serum AFP-L3 percent should be moreintensely evaluated for evidence of hepatocellular carcinoma sinceelevated values have been shown to be associated with a seven-foldincrease in the risk for developing hepatocellular carcinomawithin 21 months. Results cannot be interpreted as absoluteevidence of the presence or absence of malignant disease.For females, the result is not interpretable as a tumormarker.Performed By: [facility] [id number] [place], [place] [address]Gitsmdvmcm Director: Dileep Pate MD, PhDCLIA Number: [id number] Performed By: #### A FPL3 ####[facility] LABORATORIESCLIA [id number] [place] [address] AFP TOTAL, SERUM 2 ng/mL Normal 0-15 [facility] Comment on above: Order Comment: Hui danilo Type: BLOOD SPECIMENOrdering Facility: [facility] Address: [address] [place] [address] Performed By: #### A FPL3 ####[facility] [id number] [place] [address] JESSE BY IFA WITH REFLEXon Nuclear Ab Ql (S) Negative Normal Negative [facility] Comment on above: Order Comment: Clarita carrasco Type: BLOOD SPECIMENOrdering Facility: [facility] Address: [address] [place] [address] Result Comment: Anti -nuclear antibody test is used as an aid in diagnosis of systemic autoimmune diseases. Where positive and clinically warranted, follow-up using disease-specific testing is recommended. Low positive titers are not uncommon with advanced age, certain chronic infections, and malignancies among others.Test methodology: Indirect fluorescence immunoassay (IFA) using HEp-2 cells. Performed By: #### A NAIFR ####[facility] LABCLIA [id number] [place] [address] [place] CBC panel Auto (Bld)on 07-09 Erythrocyte distribution width (RBC) [Ratio] 16.4 % High 11.5-15.0 [facility] Comment on above: Order Comment: Clarita carrasco Type: BLOOD SPECIMENOrdering Facility: [facility] Address: [address] [place] [address] Performed By: #### 5 8410-2 ####[facility] [id number] [place] [address] [place] Hematocrit (Bld) [Volume fraction] 31.1 % Low 39.0-51.0 [facility] Comment on above: Order Comment: Speci men Type: BLOOD SPECIMENOrdering Facility: [facility] Address: [address] [place] [address] Performed By: #### 5 8410-2 ####[facility] [id number] [place] [address] [place] Hemoglobin (Bld) [Mass/Vol] 9.7 g/dL Low 13.0-17.0 [facility] Comment on above: Order Comment: Speci men Type: BLOOD SPECIMENOrdering Facility: [facility] Address: [address] [place] [address] Performed By: #### 5 8410-2 ####[facility] [id number] [place] [address] [place] MCH (RBC) [Entitic mass] 25.8 pg Low 26.0-34.0 [facility] Comment on above: Order Comment: Speci men Type: BLOOD SPECIMENOrdering Facility: [facility] Address: [address] [place] [address] Performed By: #### 5 8410-2 ####[facility] [id number] [place] [address] [place] MCHC (RBC) [Mass/Vol] 31.2 g/dL Normal 30.5-36.0 [facility] Comment on above: Order Comment: Speci men Type: BLOOD SPECIMENOrdering Facility: [facility] Address: [address] [place], [place] [address] Performed By: #### 5 8410-2 ####[facility] [id number] [place] [address] [place] MCV (RBC) [Entitic vol] 82.7 fL Normal 80.0-100.0 [facility] Comment on above: Order Comment: Speci men Type: BLOOD SPECIMENOrdering Facility: [facility] Address: [address] [place] [address] Performed By: #### 5 8410-2 ####[facility] MARISELNCCONCEPCIONA [id number] [place] [address] [place] Nucleated RBC (Bld) [#/Vol] 10*3/uL Normal <0.01 [facility] Comment on above: Order Comment: Speci men Type: BLOOD SPECIMENOrdering Facility: [facility] Address: [address] [place] [address] Performed By: #### 5 8410-2 ####[facility] [id number] [place] [address] [place] Platelet mean volume (Bld) [Entitic vol] 10.9 fL Normal 9.0-12.7 [facility] Comment on above: Order Comment: Speci men Type: BLOOD SPECIMENOrdering Facility: [facility] Address: [address] [place] [address] Performed By: #### 5 8410-2 ####[facility] [id number] [place] [address] [place] Platelets (Bld) [#/Vol] 68 10*3/uL Low 150-400 [facility] Comment on above: Order Comment: Speci men Type: BLOOD SPECIMENOrdering Facility: [facility] Address: [address] [place] [address] Result Comment: No c lot detected. Performed By: #### 5 8410-2 ####[facility]CL[facility] [id number] [place] [address] [place] RBC (Bld) [#/Vol] 3.76 10*6/uL Low 4.20-6.00 [facility] Comment on above: Order Comment: Speci men Type: BLOOD SPECIMENOrdering Facility: [facility] Address: [address] [place] [address] Performed By: #### 5 8410-2 ####[facility]CL[facility] [id number] [place] [address] [place] WBC (Bld) [#/Vol] 4.10 10*3/uL Normal 3.70-11.00 [facility] Comment on above: Order Comment: Speci men Type: BLOOD SPECIMENOrdering Facility: [facility] Address: [address] [place] [address] Performed By: #### 5 8410-2 ####[facility] [id number] [place] [address] [place] CNOVSPon 07-09-2025 CNOVSP Normal [facility] Comprehensive metabolic 2000 panelon 07-09-2025 Albumin [Mass/Vol] 3.5 g/dL Low 3.9-4.9 [facility] Comment on above: Order Comment: Speci men Type: BLOOD SPECIMENOrdering Facility: [facility] Address: [address] [place] [address] Performed By: #### 2 4323-8 ####[facility] LABCLIA [id number] [place] [address] [place] ALP [Catalytic activity/Vol] 137 U/L High 38-113 [facility] Comment on above: Order Comment: Speci men Type: BLOOD SPECIMENOrdering Facility: [facility] Address: [address] [place] [address] Performed By: #### 2 4323-8 ####[facility] LABCLIA [id number] [place] [address] [place] ALT [Catalytic activity/Vol] 16 U/L Normal 10-54 [facility] Comment on above: Order Comment: Speci men Type: BLOOD SPECIMENOrdering Facility: [facility] Address: [address] [place] [address] Performed By: #### 2 4323-8 ####[facility] LABCLIA [id number] [place] [address] [place] Anion gap [Moles/Vol] 12 mmol/L Normal 8-15 [facility] Comment on above: Order Comment: Speci men Type: BLOOD SPECIMENOrdering Facility: [facility] Address: [address] [place] [address] Performed By: #### 2 4323-8 ####[facility] LABCLIA [id number] [place] [address] [place] AST [Catalytic activity/Vol] 18 U/L Normal 14-40 [facility] Comment on above: Order Comment: Speci men Type: BLOOD SPECIMENOrdering Facility: [facility] Address: [address] [place] [address] Performed By: #### 2 4323-8 ####[facility] LABCLIA [id number] [place] [address] [place] Bilirubin [Mass/Vol] 0.6 mg/dL Normal 0.2-1.3 [facility] Comment on above: Order Comment: Speci men Type: BLOOD SPECIMENOrdering Facility: [facility] Address: [address] [place] [address] Performed By: #### 2 4323-8 ####[facility] LABCLIA [id number] [place] [address] [place] Calcium [Mass/Vol] 8.7 mg/dL Normal 8.5-10.2 [facility] Comment on above: Order Comment: Speci men Type: BLOOD SPECIMENOrdering Facility: [facility] Address: [address] [place] [address] Performed By: #### 2 4323-8 ####[facility] LABCLIA [id number] [place] [address] [place] Chloride [Moles/Vol] 100 mmol/L Normal 98-107 [facility] Comment on above: Order Comment: Speci men Type: BLOOD SPECIMENOrdering Facility: [facility] Address: [address] [place] [address] Performed By: #### 2 4323-8 ####[facility] LABCLIA [id number] [place] [address] [place] CO2 [Moles/Vol] 24 mmol/L Normal 22-30 [facility] Comment on above: Order Comment: Speci men Type: BLOOD SPECIMENOrdering Facility: [facility] Address: [address] [place] [address] Performed By: #### 2 4323-8 ####[facility] LABCLIA [id number] [place] [address] [place] Creatinine [Mass/Vol] 1.26 mg/dL High 0.73-1.22 [facility] Comment on above: Order Comment: Speci men Type: BLOOD SPECIMENOrdering Facility: [facility] Address: [address] [place] [address] Performed By: #### 2 4323-8 ####[facility] LABCLIA [id number] [place] [address] [place] eGFRcr SerPlBld CKD-EPI 2020 59 mL/min/1.73m??? Low >=60 [facility] Comment on above: Order Comment: Hui danilo Type: BLOOD SPECIMENOrdering Facility: [facility] Address: [address] [place] [address] Result Comment: Alvina mated Glomerular Filtration Rate (eGFR) is calculated using the 2020 CKD-EPI creatinine equation. This equation utilizes serum creatinine, sex, and age as parameters. The creatinine assay has traceable calibration to isotope dilution-mass spectrometry. Refer to KDIGO guidelines for clinical interpretation. In patients with unstable renal function, e.g. those with acute kidney injury, the eGFR may not accurately reflect actual GFR. Performed By: #### 2 4323-8 ####[facility] LABCLIA [id number] [place] [address] [place] Glucose [Mass/Vol] 189 mg/dL High 74-99 [facility] Comment on above: Order Comment: Speci men Type: BLOOD SPECIMENOrdering Facility: [facility] Address: [address] [place] [id number] Result Comment: The [place] [employer] (ADA) provides guidance for cutoff values for fasting glucose and random glucose. The ADA defines fasting as no caloric intake for at least 8 hours. Fasting plasma glucose results between 100 to 125 mg/dL indicate increased risk for diabetes (prediabetes).Fasting plasma glucose results greater than or equal to 126 mg/dL meet the criteria for diagnosis of diabetes. In the absence of unequivocal hyperglycemia, results should be confirmed by repeat testing. In a patient with classic symptoms of hyperglycemia or hyperglycemic crisis, random plasma glucose results greater than or equal to 200 mg/dL meet the criteria for diagnosis of diabetes.Reference: Standards of Medical Care in Diabetes 2016, [place] [employer]. Diabetes Care. 2016.39(Suppl 1). Performed By: #### 2 4323-8 ####[facility] LABCLIA [id number] [place] [address] [place] Potassium [Moles/Vol] 4.0 mmol/L Normal 3.7-5.1 [facility] Comment on above: Order Comment: Speci men Type: BLOOD SPECIMENOrdering Facility: [facility] Address: [address] [place] [address] Performed By: #### 2 432-8 ####[facility] LABCLIA [id number] [place] [address] [place] Protein [Mass/Vol] 6.5 g/dL Normal 6.3-8.0 [facility] Comment on above: Order Comment: Speci men Type: BLOOD SPECIMENOrdering Facility: [facility] Address: [address] [place] [address] Performed By: #### 2 4323-8 ####[facility] LABCLIA [id number] [place] [address] [place] Sodium [Moles/Vol] 136 mmol/L Normal 136-144 [facility] Comment on above: Order Comment: Speci men Type: BLOOD SPECIMENOrdering Facility: [facility] Address: [address] [place] [address] Performed By: #### 2 4323-8 ####[facility] LABCLIA [id number] [place] [address] [place] Urea nitrogen [Mass/Vol] 11 mg/dL Normal 9-24 [facility] Comment on above: Order Comment: Speci men Type: BLOOD SPECIMENOrdering Facility: [facility] Address: [address] [place] [address] Performed By: #### 2 4323-8 ####[facility] LABCLIA [id number] [place] [address] [place] RADHA GAMMA CARBOXY PROTHROMBI Non 07-09-2025 PIVKA II 1.3 ng/mL Normal 0.0-7.4 [facility] Comment on above: Order Comment: Speci men Type: BLOOD SPECIMENOrdering Facility: [facility] Address: [address] [place] [address] Result Comment: INTE RPRETIVE INFORMATION: Qbi-mfyqp-peynnok ProthrombinThe [facility] method is used. Results obtained with different assaymethods or kits cannot be used interchangeably. Rrspes-xtlxt-bhkoffq prothrombin (DCP) assay is intended as a riskassessment for the development of hepatocellular carcinoma inpatients with chronic liver diseases. Elevated DCP values havebeen shown to be associated with an increased risk for developinghepatocellular carcinoma. Patients with elevated serum DCP shouldbe more intensely evaluated for evidence of hepatocellularcarcinoma. Results cannot be interpreted as absolute evidence ofthe presence or absence of malignant disease.Medication containing vitamin K preparations may cause a negativebias of the DCP values.Medication containing vitamin K antagonist or antibiotic may causea positive bias of the DCP values.Performed By: [facility] [place], [place] [address]Faodyfrqpc Director: Dileep Pate MD, PhDCLIA Number: [id number] Performed By: #### P IVKA ####[facility] Polar RoseIA [id number] [place] [address] HbA1c (Bld)on 07-09-2025 Average glucose Estimated from glycated hemoglobin (Bld) [Mass/Vol] 151 mg/dL Normal [facility] Comment on above: Order Comment: Speci men Type: BLOOD SPECIMENOrdering Facility: [facility] Address: [address] [place] [address] Result Comment: eAG: (Estimated average glucose) is a calculated value from HgbA1c and is manufacturers representative of the average blood glucose level in the last 2-3 month period. Performed By: #### 5 5454-3 ####[facility] LABCLIA [id number] [place] [address] [place] HbA1c (Bld) [Mass fraction] 6.9 % High 4.3-5.6 [facility] Comment on above: Order Comment: Speci men Type: BLOOD SPECIMENOrdering Facility: [facility] Address: [address] [place] [address] Result Comment: Amer ican Diabetes Association guidelines indicate that patients with HgbA1c in the range 5.7-6.4% are at increased risk for development of diabetes, and intervention by lifestyle modification may be beneficial. HgbA1c greater or equal to 6.5% is considered diagnostic of diabetes. Performed By: #### 5 5454-3 ####[facility] LABCLIA [id number] [place] [address] [place] IGG SUBCLASS 1,2,3,4on 07-09 IgG subclass 1 (S) [Mass/Vol] 433.5 mg/dL Normal 382.4-928.6 [facility] Comment on above: Order Comment: Speci men Type: BLOOD SPECIMENOrdering Facility: [facility] Address: [address] [place] [address] Performed By: #### I G1234 ####[facility] LABCLIA [id number] [place] [address] [place] IgG subclass 2 (S) [Mass/Vol] 286.1 mg/dL Normal 241.8-700.3 [facility] Comment on above: Order Comment: Speci men Type: BLOOD SPECIMENOrdering Facility: [facility] Address: [address] [place] [address] Performed By: #### I G1234 ####[facility] LABCLIA [id number] [place] [address] [place] IgG subclass 3 (S) [Mass/Vol] 74.7 mg/dL Normal 21.8-176.1 [facility] Comment on above: Order Comment: Speci men Type: BLOOD SPECIMENOrdering Facility: [facility] Address: [address] [place] [address] Performed By: #### I G1234 ####[facility] LABCLIA [id number] [address] [place] IgG subclass 4 (S) [Mass/Vol] 47.8 mg/dL Normal 3.9-86.4 [facility] Comment on above: Order Comment: Speci men Type: BLOOD SPECIMENOrdering Facility: [facility] Address: [address] [place] [address] Performed By: #### I G1234 ####[facility] LABCLIA [id number] [place] [address] [place] Lipid 1996 panelon 1030-202 5 Cholesterol [Mass/Vol] 85 mg/dL Normal <200 [facility] Comment on above: Order Comment: Speci men Type: BLOOD SPECIMENOrdering Facility: [facility] Address: [address] [place] [address] Result Comment: <200 mg/dL, Desirable 200-239 mg/dL, Borderline high>239 mg/dL, High Performed By: #### 2 4331-1 ####[facility] LABCLIA [id number] [place] [address] [place] [facility] [id number] [place] [address] [place]#### 3016-3 ####[facility] LABCLIA [id number] [place] [address] [place] Cholesterol in HDL [Mass/Vol] 22 mg/dL Low >39 [facility] Comment on above: Order Comment: Speci men Type: BLOOD SPECIMENOrdering Facility: [facility] Address: [address] [place] [address] Result Comment: 40-5 9 mg/dL, Acceptable>59 mg/dL, High: Negative risk factor for coronary heart disease<40 mg/dL, Low: Positive risk factor for coronary heart disease Performed By: #### 2 4331-1 ####[facility] LABCLIA [id number] [address] [id number] [address]#### 3016-3 ####[facility] LABCLIA [id number] [address] STATES [facility] Cholesterol in LDL [Mass/Vol] 43 mg/dL Normal <100 [facility] Comment on above: Order Comment: Speci men Type: BLOOD SPECIMENOrdering Facility: [facility] Address: [address] [place] [address] Result Comment: <100 mg/dL, Optimal 100-129 mg/dL, Near optimal/above optimal 130-159 mg/dL, Borderline high 160-189 mg/dL, High>189 mg/dL, Very highSecondary prevention optimal LDL Cholesterol levels are recommended to be <70 mg/dLLDL cholesterol is calculated using the Lopez-NIH equation. Performed By: #### 2 4331-1 ####[facility] LABCLIA [id number] [address] [id number] [address]#### 3016-3 ####[facility] LABCLIA [id number] [address] STATES [facility] Cholesterol in LDL/Cholesterol in HDL [Mass ratio] 1.95 {ratio} Normal <2.54 [facility] Comment on above: Order Comment: Speci men Type: BLOOD SPECIMENOrdering Facility: [facility] Address: [address] [place] [address] Result Comment: Alvaro aguilar:1. National Cholesterol Education Program ATP III Guideline At-A-Glance Quick Desk Reference: National Heart, Lung, and Blood Cameron. National Institutes of Health. 2001: NIH Publication No. 01-3305.2. An International Atherosclerosis Society position paper: global recommendations for the management of dyslipidemia: executive summary, Atherosclerosis. 2014: 232(2):410-413. Performed By: #### 2 4331-1 ####[facility] LABCLIA [id number] [address] [id number] [address]#### 3016-3 ####[facility] LABCLIA [id number] [address] Cholesterol in VLDL [Mass/Vol] 15 mg/dL Normal <30 [facility] Comment on above: Order Comment: Speci men Type: BLOOD SPECIMENOrdering Facility: [facility] Address: [address] [place] [address] Performed By: #### 2 4331-1 ####[facility] LABCLIA [id number] [address] [id number] [place] [address]#### 3016-3 ####[facility] LABCLIA [id number] [address] Cholesterol non HDL [Mass/Vol] 63 mg/dL Normal <130 [facility] Comment on above: Order Comment: Speci men Type: BLOOD SPECIMENOrdering Facility: [facility] Address: [address] [place] [address] Result Comment: <130 mg/dL, Optimal 130-159 mg/dL, Near optimal/above optimal 160-189 mg/dL, Borderline high 190-219 mg/dL, High>219 mg/dL, Very highSecondary prevention optimal non HDL Cholesterol levels are recommended to be <100 mg/dL Performed By: #### 2 4331-1 ####[facility] LABCLIA [id number] [address] [id number] [place] [address] [place]#### 3016-3 ####[facility] LABCLIA [id number] [place] [address] [place] Cholesterol.total/C holesterol in HDL [Mass ratio] 3.86 {ratio} Normal <5.10 [facility] Comment on above: Order Comment: Speci men Type: BLOOD SPECIMENOrdering Facility: [facility] Address: [address] [place] [address] Performed By: #### 2 4331-1 ####[facility] LABCLIA [id number] [address] [id number] [place] [address] [place]#### 3016-3 ####[facility] LABCLIA [id number] [place] [address] [place] FASTING TIME 12 hrs Normal [facility] Comment on above: Order Comment: Speci men Type: BLOOD SPECIMENOrdering Facility: [facility] Address: [address] [place] [address] Performed By: #### 2 4331-1 ####[facility] LABCLIA [id number] [place] [address] [place] [facility] [id number] [place] [address] [place]#### 3016-3 ####[facility] LABCLIA [id number] [place] [address] [place] Triglyceride [Mass/Vol] 106 mg/dL Normal <150 [facility] Comment on above: Order Comment: Speci men Type: BLOOD SPECIMENOrdering Facility: [facility] Address: [address] [place] [address] Result Comment: <150 mg/dL, Normal 150-199 mg/dL, Borderline high 200-499 mg/dL, High>499 mg/dL, Very high Performed By: #### 2 4331-1 ####[facility] LABCLIA [id number] [address] [id number] [address] [place]#### 3016-3 ####[facility] LABCLIA [id number] [address] [place] Smooth muscle Ab Ql (S)on ACTIN SMOOTH MUSCLE IGG QUALITATIVE Positive Abnormal Negative [facility] Comment on above: Order Comment: Speci men Type: BLOOD SPECIMENOrdering Facility: [facility] Address: [address] [place] [address] Performed By: #### 1 4252-1 ####[facility] LABCLIA [id number] [address] STATES [facility] ACTIN SMOOTH MUSCLE IGG QUANTITATIVE 35 Units High <20 [facility] Comment on above: Order Comment: Speci men Type: BLOOD SPECIMENOrdering Facility: [facility] Address: [address] [place] [address] Performed By: #### 1 4252-1 ####[facility] LABCLIA [id number] [address] [place] TSH SerPl-aCncon 07-09-2025 TSH Qn 1.130 m[IU]/L Normal 0.270-4.200 [facility] Comment on above: Order Comment: Speci men Type: BLOOD SPECIMENOrdering Facility: [facility] Address: [address] [place] [address] Performed By: #### 2 4331-1 ####[facility] LABCLIA [id number] [address] STATES OF [facility][1]LIA [id number] [place] [address] [place]#### 3016-3 ####[facility] LABCLIA [id number] [place] [address] [place] CNOVon 07-08-2025 CNOV Normal [facility] CNOVon 06-30-2025 CNOV Normal [facility] CNPTOUTREACHon 06-29-2025 CNPTOUTREACH Normal [facility] CBC panel Auto (Bld)on 06-27 Erythrocyte distribution width (RBC) [Ratio] 15.0 % Normal 11.5-15.0 [facility] Comment on above: Order Comment: Speci men Type: BLOOD SPECIMEN [facility] Address: [address] [place] [address] Performed By: #### 2 4323-8, [facility], 2275-12, 76278-5 #### [facility] CLIA [id number] [address] [place] [facility] Hematocrit (Bld) [Volume fraction] 28.9 % Low 39.0-51.0 [facility] Comment on above: Order Comment: Speci men Type: BLOOD SPECIMEN [facility] Address: [address] [place] [address] Performed By: #### 2 4323-8, TSH, 2275-4, 37342-4 #### [facility] CLIA [id number] [address] [place] [address] [place] Hemoglobin (Bld) [Mass/Vol] 8.9 g/dL Low 13.0-17.0 [facility] Comment on above: Order Comment: Speci men Type: BLOOD SPECIMEN [facility] Address: [address] [place] [address] Performed By: #### 2 4323-8, TSHRF, 2275-4, 06688-8 #### [facility] CLIA [id number] [address] [place] [address] [place] MCH (RBC) [Entitic mass] 25.3 pg Low 26.0-34.0 [facility] Comment on above: Order Comment: Speci men Type: BLOOD SPECIMEN [facility] Address: [address] [place] [address] Performed By: #### 2 4323-8, TSHRF, 2275-12, 13051-6 #### [facility] CLIA [id number] [address] [place] [address] [place] MCHC (RBC) [Mass/Vol] 30.8 g/dL Normal 30.5-36.0 [facility] Comment on above: Order Comment: Speci men Type: BLOOD SPECIMEN [facility] Address: [address] [place] [address] Performed By: #### 2 4323-8, TSH, 2275-12, 11828-7 #### [facility] CLIA [id number] [address] [place] MCV (RBC) [Entitic vol] 82.1 fL Normal 80.0-100.0 [facility] Comment on above: Order Comment: Speci men Type: BLOOD SPECIMEN [facility] Address: [address] [place] [address] Performed By: #### 2 4323-8, [facility], 2275-12, 20604-4 #### [facility] CLIA [id number] [address] [place] Nucleated RBC (Bld) [#/Vol] 10*3/uL Normal <0.01 [facility] Comment on above: Order Comment: Speci men Type: BLOOD SPECIMEN [facility] Address: [address] [place] [address] Performed By: #### 2 4323-8, TSH, 2275-12, 99219-5 #### [facility] CLIA [id number] [address] [place] Platelet mean volume (Bld) [Entitic vol] 10.8 fL Normal 9.0-12.7 [facility] Comment on above: Order Comment: Speci men Type: BLOOD SPECIMEN [facility] Address: [address] [place] [address] Performed By: #### 2 4323-8, TSHRF, 2275-4, 97896-5 #### [facility] CLIA [id number] [address] [place] Platelets (Bld) [#/Vol] 71 10*3/uL Low 150-400 [facility] Comment on above: Order Comment: Speci men Type: BLOOD SPECIMEN [facility] Address: [address] [place] [address] Result Comment: No c lot detected. Performed By: #### 2 4323-8, TSHRF, 2275-4, 81623-9 #### [facility] CLIA [id number] [address] [place] RBC (Bld) [#/Vol] 3.52 10*6/uL Low 4.20-6.00 [facility] Comment on above: Order Comment: Speci men Type: BLOOD SPECIMEN [facility] Address: [address] [place] [address] Performed By: #### 2 4323-8, TSHRF, 2275-4, 60786-0 #### [facility] CLIA [id number] [address] OF [facility] WBC (Bld) [#/Vol] 3.46 10*3/uL Low 3.70-11.00 [facility] Comment on above: Order Comment: Speci men Type: BLOOD SPECIMEN [facility] Address: [address] [place] [address] Performed By: #### 2 4323-8, TSHRF, 2275-4, 94033-2 #### [facility] CLIA [id number] [address] CNDSon 06-27-2025 CNDS HNO ID: [id number] Author: KADY SPRAGUE MD Service: Hospital Medicine Author Type: Physician Type: Discharge Summary Filed: 06/27/2025 13:23 Note Text: DISCHARGE SUMMARY PATIENT NAME: Yazan Nolasco ADMISSION DATE: 06/25/2025 DISCHARGE DATE: 06/27/2025 ATTENDING PHYSICIAN: Kady Sprague MD Code Status: Full Code PCP: Dee Ashley MD Highest Readmission Risk Score: 22 The 30 day readmissions risk score is derived from an internally validated risk model which evaluates patient level characteristics, utilization history, medication orders and lab results up until the day of discharge. Patients with a score of 39 or above are considered highest risk for readmission. Specific patient level drivers will be listed at the bottom of the summary. TRANSITIONS OF CARE CRITICAL ISSUES: FREEMAN MEDICATION CHANGES: See medication list LAB MONITORING NEEDED: Test CBC BMP magnesium When in 1 week REASON FOR HOSPITALIZATION/PRINCIPAL DIAGNOSES: Anemia HOSPITAL PROBLEMS: Principal Problem: Acute blood loss anemia (POA: Yes) Active Problems: Morbid obesity (HCC) (POA: Yes) BOSTON on CPAP (POA: Yes) Stage 3a chronic kidney disease (HCC) (POA: Yes) Type 2 diabetes mellitus with diabetic mononeuropathy, with long-term current use of insulin (HCC) (POA: Yes) Essential hypertension (POA: Yes) Paroxysmal atrial fibrillation (HCC) (POA: Yes) Type 2 diabetes mellitus with stage 3a chronic kidney disease, with long-term current use of insulin (HCC) (POA: Yes) Hypothyroidism (POA: Yes) Psoriatic arthritis (HCC) (POA: Yes) B12 deficiency (POA: Yes) Pancytopenia (HCC) (POA: Yes) (HFpEF) heart failure with preserved ejection fraction (HCC) (POA: Yes) Iron deficiency anemia due to chronic blood loss (POA: Unknown) Other cirrhosis of liver (HCC) (POA: Unknown) Splenomegaly (POA: Unknown) Obesity, Class III, BMI >= 40 (POA: Unknown) Resolved Problems: * No resolved hospital problems. * The following problems are present on admission at this time: Heart failure Coagulopathy Anemia Autoimmune condition Iron deficiency anemia secondary to blood loss (chronic) Diabetes mellitus Hypertension Hypertensive disorder Hypothyroidism Liver disease Malignant solid tumor Obesity Psychoses Continue current outpatient treatment plan and current medications for these conditions, except where otherwise noted. HOSPITAL COURSE: Per previous hospitalist Mr. Yazan Nolasco is a 75 y/o M with a PMH of CAD, atrial fibrillation on eliquis, chronic pain on meloxicam presenting to the hospital with abnormal labs; notable Hgb of <7, PLT 70, leukopenia on arrival. Potential for multiple processes in place (iron deficiency anemia, pancytopenia from alternative cause) and thus involved both GI and Hematology for evaluation. EGD today with portal hypertensive gastropathy. Had some nausea/diarrhea today that will be watched. Can go home tomorrow if feeling improved back on eliquis. I started taking care of the patient today's date 06/27/2025, patient denied having chest pain fever chills nausea vomiting HANDH low but stable, EGD report was reviewed with the patient, GI recommended resuming anticoagulation, patient had colonoscopy 2 years ago at [facility], patient denied having any symptoms would like to go home he was discharged home in stable condition follow-up with the primary care physician and GI as outpatient. Patient declined oral iron supplementation, he will follow-up with infusion center for IV iron infusion. This will be arranged by primary care physician and hematology at [place]. Acute Blood Loss Anemia Pancytopenia Hx of iron deficiency anemia - Melena now resolved, previously reports epistaxis/melena last episode five weeks ago - Symptomatic with progressive Shortness of Breath, lightheadedness - IV PPI BID - c/f gastritis/duodenitis with anticoagulation + NSAID - Hematology consulted as all blood lines deplete - Transfuse Hgb <7 - Trend CBC BID for now - GI on consult - Heme on consult - RUQUS with cirrhotic changes - B12 >2000 - Folate pending - TSH WNL - Iron 21, TIBC 306, Ferritin 27.7 - d/c NSAID use Atrial Fibrillation - Continue metoprolol with hold parameters - Eliquis on hold Cirrhotic morphology of liver Fluid Retention - Started on oral torsemide as per PCP for fluid retention and 50 pound weight gain over past 4 months - RUQUS reviewed, cirrhotic liver morphology with portla hypertension - Further cirrhosis workup as per GI - Reinitiate diuretic as getting transfusions Type 2 Diabetes Mellitus - Home regimen: 25 units lantus qHS - Inpatient regimen: 10 units lantus, 3 unit lispro TID AC - Accuchecks - SSI - Hold ozempic Hypertension - Continue norvasc with hold parameters - Continue lisinopril with hold parameters Hyperlipidemia - Continue lovastatin Psoriatic Arthritis - Continue otezla Mood D (more content not included)... Normal [facility] Comprehensive metabolic 2000 panelon 06-27-2025 Albumin [Mass/Vol] 3.4 g/dL Low 3.9-4.9 [facility] Comment on above: Order Comment: Speci men Type: BLOOD SPECIMEN [facility] Address: [address] [place] [address] Performed By: #### 2 4323-8, TSHRF, 2276-4, 70573-4 #### [facility] CLIA [id number] [address] STATES OF [facility] ALP [Catalytic activity/Vol] 122 U/L High 38-113 [facility] Comment on above: Order Comment: Speci men Type: BLOOD SPECIMEN [facility] Address: [address] [place] [address] Performed By: #### 2 4323-8, TSHRF, 6-4, 84637-1 #### [facility] CLIA [id number] [address] ALT [Catalytic activity/Vol] 8 U/L Low 10-54 [facility] Comment on above: Order Comment: Speci men Type: BLOOD SPECIMEN [facility] Address: [address] [place] [address] Performed By: #### 2 4323-8, TSHRF, 6-4, 39157-6 #### [facility] CLIA [id number] [address] Anion gap [Moles/Vol] 12 mmol/L Normal 8-15 [facility] Comment on above: Order Comment: Speci men Type: BLOOD SPECIMEN [facility] Address: [address] [place] [address] Performed By: #### 2 4323-8, TSHRF, 2276-4, 79884-5 #### [facility] CLIA [id number] [address] AST [Catalytic activity/Vol] 12 U/L Low 14-40 [facility] Comment on above: Order Comment: Speci men Type: BLOOD SPECIMEN [facility] Address: [address] [place] [address] Performed By: #### 2 4323-8, TSHRF, 2275-4, 24912-8 #### [facility] CLIA [id number] [address] [place] [address] [place] Bilirubin [Mass/Vol] 0.7 mg/dL Normal 0.2-1.3 [facility] Comment on above: Order Comment: Speci men Type: BLOOD SPECIMEN [facility] Address: [address] [place] [address] Performed By: #### 2 4323-8, TSHRF, 2275-4, 72525-0 #### [facility] CLIA [id number] [address] [place] [address] [place] Calcium [Mass/Vol] 8.3 mg/dL Low 8.5-10.2 [facility] Comment on above: Order Comment: Speci men Type: BLOOD SPECIMEN [facility] Address: [address] [place] [address] Performed By: #### 2 4323-8, TSHRF, 2275-12, 73070-8 #### [facility] CLIA [id number] [address] [place] [address] [place] Chloride [Moles/Vol] 104 mmol/L Normal 98-107 [facility] Comment on above: Order Comment: Speci men Type: BLOOD SPECIMEN [facility] Address: [address] [place] [address] Performed By: #### 2 4323-8, TSHRF, 2275-12, 40099-8 #### [facility] CLIA [id number] [address] [place] [address] [place] CO2 [Moles/Vol] 22 mmol/L Normal 22-30 [facility] Comment on above: Order Comment: Speci men Type: BLOOD SPECIMEN [facility] Address: [address] [place] [address] Performed By: #### 2 4323-8, TSHRF, 4, 31078-8 #### [facility] CLIA [id number] [address] [place] [address] [place] Creatinine [Mass/Vol] 1.16 mg/dL Normal 0.73-1.22 [facility] Comment on above: Order Comment: Clarita carrasco Type: BLOOD SPECIMEN [facility] Address: [address] [place] [address] Performed By: #### 2 4323-8, TSHRF, 2276-4, 86946-9 #### [facility] CLIA [id number] [address] eGFRcr SerPlBld CKD-EPI 2020 66 mL/min/1.73m??? Normal >=60 [facility] Comment on above: Order Comment: Clarita carrasco Type: BLOOD SPECIMEN [facility] Address: [address] [place] [address] Result Comment: Alvina mated Glomerular Filtration Rate (eGFR) is calculated using the 2020 CKD-EPI creatinine equation. This equation utilizes serum creatinine, sex, and age as parameters. The creatinine assay has traceable calibration to isotope dilution-mass spectrometry. Refer to KDIGO guidelines for clinical interpretation. In patients with unstable renal function, e.g. those with acute kidney injury, the eGFR may not accurately reflect actual GFR. Performed By: #### 2 4323-8, [facility], 2276-4, 78804-8 #### [facility] CLIA [id number] [address] [place] Glucose [Mass/Vol] 165 mg/dL High 74-99 [facility] Comment on above: Order Comment: Clarita carrasco Type: BLOOD SPECIMEN [facility] Address: [address] [place] [address] Result Comment: The [place] Diabetes [employer] (ADA) provides guidance for cutoff values for fasting glucose and random glucose. The ADA defines fasting as no caloric intake for at least 8 hours. Fasting plasma glucose results between 100 to 125 mg/dL indicate increased risk for diabetes (prediabetes). Fasting plasma glucose results greater than or equal to 126 mg/dL meet the criteria for diagnosis of diabetes. In the absence of unequivocal hyperglycemia, results should be confirmed by repeat testing. In a patient with classic symptoms of hyperglycemia or hyperglycemic crisis, random plasma glucose results greater than or equal to 200 mg/dL meet the criteria for diagnosis of diabetes. Reference: Standards of Medical Care in Diabetes 2016, [place] Diabetes Association. Diabetes Care. 2016.39(Suppl 1). Performed By: #### 2 4323-8, TSHRF, 6-4, 14622-3 #### [facility] CLIA [id number] [address] [place] [address] [place] Potassium [Moles/Vol] 3.6 mmol/L Low 3.7-5.1 [facility] Comment on above: Order Comment: Speci men Type: BLOOD SPECIMEN [facility] Address: [address] [place] [address] Performed By: #### 2 4323-8, TSHRF, 6-4, 79133-9 #### [facility] CLIA [id number] [address] [place] [address] [place] Protein [Mass/Vol] 6.2 g/dL Low 6.3-8.0 [facility] Comment on above: Order Comment: Speci men Type: BLOOD SPECIMEN [facility] Address: [address] [place] [address] Performed By: #### 2 4323-8, TSHRF, 2275-4, 57254-5 #### [facility] CLIA [id number] [address] [place] [address] [place] Sodium [Moles/Vol] 138 mmol/L Normal 136-144 [facility] Comment on above: Order Comment: Speci men Type: BLOOD SPECIMEN Ordering Facility: [facility] Address: [address] [place] [address] Performed By: #### 2 4323-8, TSHRF, 2275-4, 51515-0 #### [facility] CLIA [id number] [address] [place] [address] [place] Urea nitrogen [Mass/Vol] 8 mg/dL Low 9-24 [facility] Comment on above: Order Comment: Speci men Type: BLOOD SPECIMEN Ordering Facility: [facility] Address: [address] [place] [address] Performed By: #### 2 4323-8, TSHRF, 6-4, 81202-5 #### [facility] CLIA [id number] [address] [place] [address] [place] ANES POSTPROC EVALon 025 ANES POSTPROC EVAL HNO ID: [id number] Author: DENYS BAEZA MD Service: Anesthesiology Author Type: Anesthesiologist Type: Anesthesia Postprocedure Evaluation Filed: 06/26/2025 13:13 Note Text: POST ANESTHESIA EVALUATION NOTE : 1950 Procedure Summary Date: 06/26/25 Room / Location: [facility] Anesthesia Start: 1239 Anesthesia Stop: 1255 Procedure: EGD DIAGNOSTIC Diagnosis: (Iron deficiency anemia) Scheduled Providers: Yuridia James MD; Denys Baeza MD; Melvin Lopez APRN.APPLIANCE SALES ASSOCIATE Responsible Provider: Denys Baeza MD Anesthesia Type: MAC ASA Status: 4 Anesthesia Type: MAC Last Vitals Vitals Value Taken Time BP 146/72 06/26/25 13:00 Temp 36.8 06/26/25 13:13 Pulse 79 06/26/25 13:11 Resp 18 06/26/25 13:11 SpO2 92 % 06/26/25 13:11 Vitals shown include unfiled device data. Post Anesthesia Patient Status Patient Evaluation: bedside. Anticipated Disposition: inpatient floor planned admission. Neurological Status: aware and responsive. Pulmonary Status: breathing comfortably on room air Airway Control: returned to baseline unsupported. Cardiovascular Status: stable. Pain Management: clinically adequate Postoperative Hydration: acceptable. Intraoperative Events: no significant anesthesia events Post Operative Nausea/Vomiting Status: no significant post operative nausea or vomiting Recommendation: continue current plan of care. Anesthesia Observations No Documentation SIGNATURE: Denys Baeza MD PATIENT NAME: Yazan Nolasco DATE: June 26, 2025 TIME: 1:13 PM CSN: [id number] Normal [facility] ANES PRE-OPon 06-26-2025 ANES PRE-OP HNO ID: [id number] Author: DENYS BAEZA MD Service: Anesthesiology Author Type: Anesthesiologist Type: Anesthesia Preprocedure Evaluation Filed: 06/26/2025 12:31 Note Text: ANESTHESIOLOGY DAY OF SURGERY NOTE : 1950 Procedure Information Date/Time: 06/26/25 1330 Scheduled providers: Yuridia James MD; Denys Baeza MD; Melvin Lopez APRN.APPLIANCE SALES ASSOCIATE Procedure: EGD DIAGNOSTIC Location: [facility] Estimated body mass index is 40.95 kg/m? as calculated from the following: Height as of this encounter: 176.5 cm (5' 9.5). Weight as of this encounter: 127.6 kg (281 lb 4.9 oz). Most recent hematocrit and potassium results: Hematocrit 31.0 06/26/2025 Potassium 4.0 06/26/2025 Relevant Problems ANESTHESIA (+) BOSTON on CPAP CARDIO (+) Atrial fibrillation, persistent (HCC) (+) Coronary artery disease involving [place] coronary artery of [place] heart without angina pectoris (+) Essential hypertension (+) Paroxysmal atrial fibrillation (HCC) (+) SVT (supraventricular tachycardia) (HCC) ENDO (+) Hypothyroidism (+) Type 2 diabetes mellitus with diabetic mononeuropathy, with long-term current use of insulin (HCC) (+) Type 2 diabetes mellitus with stage 3a chronic kidney disease, with long-term current use of insulin (HCC) (+) Uncontrolled type 2 diabetes mellitus GI (+) Esophageal reflux -RENAL (+) Fatty liver disease, nonalcoholic (+) Hypertensive kidney disease with stage 3a chronic kidney disease (HCC) (+) Other chronic nonalcoholic liver disease (+) Other cirrhosis of liver (HCC) (+) Stage 3a chronic kidney disease (HCC) (+) Steatohepatitis, non-alcoholic PULMONARY (+) BOSTON on CPAP Other (+) Psoriatic arthritis (HCC) (+) Splenomegaly I - PHYSICAL EVALUATION AIRWAY Patient intubated: No. Tracheostomy tube not present Mallampati: II. TM distance: >3 FB. Neck ROM: full ROM without neurological symptoms. Mouth openin FB. Short neck: no. Thick neck: no DENTAL Normal dental observations. Dental findings: edentulous. II - ANESTHESIA PLAN ASA Score: 4 Anesthetic Plan: MAC The patient is not a current smoker. NPO Status: adequate Monitoring Plan Monitoring plan: standard ASA. Post Procedure Analgesic Plan Postoperative analgesic plan: parenteral or oral opioids and multimodal analgesia. Informed Consent Anesthetic risks, benefits, alternatives, personnel and consent discussed: yes. Patient / Responsible Republican agrees to proceed: yes Patient / Surrogate agrees to blood products: blood products not planned DNR status not reviewed with patient and/or family prior to surgery. Significant changes in the patient condition since the History and Physical, not otherwise documented in primary service progress note: no. Potential Anesthesia issues that may suggest increased risk of complications or contraindication to planned procedure: none. Discussed the possibility of lip / dental damage: yes Vitals Value Taken Time BP 144/84 06/26/25 11:39 Pulse 80 06/26/25 11:59 Resp 16 06/26/25 11:59 Temp 36.7 ?C (98.1 ?F) 06/26/25 11:39 SpO2 90 % 06/26/25 11:59 Facility-Administered Medications as of 06/26/2025 Medication Dose Route Frequency [Transfer Hold] torsemide 20 mg tab(s) (DEMADEX) 20 mg ORAL DAILY [COMPLETED] cyanocobalamin 1,000 mcg injection 1,000 mcg INTRAMUSCULAR ONCE [Transfer Hold] NaCl 0.9% iv flush bag 20 mL INTRAVENOUS PRN [Transfer Hold] pantoprazole 40 mg injection (PROTONIX) 40 mg INTRAVENOUS BID AC (0600/1600) Followed by [Transfer Hold] pantoprazole 40 mg injection (PROTONIX) 40 mg INTRAVENOUS DAILY (6 AM) [Transfer Hold] amLODIPine 5 mg tab(s) (NORVASC) 5 mg ORAL DAILY [Transfer Hold] lisinopril 40 mg tab(s) (ZESTRIL) 40 mg ORAL DAILY [Transfer Hold] lovastatin 20 mg tab(s) (MEVACOR) 20 mg ORAL q 48 H [Transfer Hold] metoprolol tartrate (short acting) 100 mg tab(s) (LOPRESSOR) 100 mg ORAL BID [Transfer Hold] dextrose 40 % 15 g 15 g ORAL PRN Or [Transfer Hold] glucagon 1 mg injection 1 mg INTRAMUSCULAR PRN Or [Transfer Hold] dextrose 10% iv bolus 12.5 g INTRAVENOUS PRN [Transfer Hold] buPROPion XL 150 mg tab(s) (WELLBUTRIN XL) 150 mg ORAL DAILY [Transfer Hold] DULoxetine DR 60 mg cap(s) (CYMBALTA) 60 mg ORAL DAILY [Transfer Hold] allopurinol 200 mg tab(s) (ZYLOPRIM) 200 mg ORAL DAILY [Transfer Hold] apremilast 30 mg tab(s) (OTEZLA) 30 mg ORAL DAILY [Transfer Hold] gabapentin 600 mg tab(s) (NEURONTIN) 600 mg ORAL AT BEDTIME [Transfer Hold] levothyroxine 50 mcg tab(s) (SYNTHROID) 50 mcg ORAL DAILY (6 AM) [Transfer Hold] tamsulosin 0.8 mg cap(s) (FLOMAX) 0.8 mg ORAL DAILY [Transfer Hold] sodium chloride 0.9 % (flush) 2-10 mL (BD POSIFLUSH) 2-10 mL INTRAVENOUS DIRECTED PRN And [Transfer Hold] perflutren lipid microspheres 1.1 mg/mL 1.3 mL injection (DEFINITY) 1.3 mL INTRAVENOUS DIRECTED PRN [Transfer Hold] insulin lispro injection (rapid ac (more content not included)... Normal [facility] BRIEF OP NOTon 06-26-2025 BRIEF OP NOT HNO ID: [id number] Author: YURIDIA JAMES MD Service: Gastroenterology Author Type: Physician Type: Brief Op Note Filed: 06/26/2025 12:55 Note Text: S/p EGD. No varices. Severe portal hypertensive gastropathy noted. Normal duodenum. Recommendations: Avoid NSAIDs PPI BID Daily iron supplementation Ok to resume anticoagulation Heart healthy diet ordered GI will sign off. Normal [facility] CBC Pnl Bld Autoon Hemoglobin (Bld) [Mass/Vol] 9.6 g/dL Low 13.0-17.0 [facility] Comment on above: Order Comment: Speci men Type: BLOOD SPECIMEN Ordering Facility: [facility] Address: [address] [place] [address] Performed By: #### 2 4323-8, [facility], 2275-4, 78322-4 #### [facility] CLIA [id number] [address] [place] [address] [place] CBC W Auto Differential pane l (Bld)on 06-26-2025 Eosinophils (Bld) [#/Vol] 0.11 10*3/uL Normal <0.46 [facility] Comment on above: Order Comment: Speci men Type: BLOOD SPECIMEN Ordering Facility: [facility] Address: [address] [place] [address] Performed By: #### 2 4323-8, [facility], 2275-4, 80400-2 #### [facility] CLIA [id number] [address] [place] [address] [place] Eosinophils/100 WBC (Bld) 2.7 % Normal [facility] Comment on above: Order Comment: Speci men Type: BLOOD SPECIMEN Ordering Facility: [facility] Address: [address] [place] [address] Performed By: #### 2 4323-8, TSHRF, 2275-4, 22396-3 #### [facility] CLIA [id number] [address] [place] [address] [place] Hematocrit (Bld) [Volume fraction] 30.9 % Low 39.0-51.0 [facility] Comment on above: Order Comment: Speci men Type: BLOOD SPECIMEN Ordering Facility: [facility] Address: [address] [place] [address] Performed By: #### 2 4323-8, TSHRF, 2275-, 70490-5 #### [facility] CLIA [id number] [address] [place] [address] [place] Lymphocytes (Bld) [#/Vol] 1.13 10*3/uL Normal 1.00-4.00 [facility] Comment on above: Order Comment: Speci men Type: BLOOD SPECIMEN Ordering Facility: [facility] Address: [address] [place] [address] Performed By: #### 2 4323-8, TSH, 2275-12, 89530-3 #### [facility] CLIA [id number] [address] [place] [address] [place] Lymphocytes/100 WBC (Bld) 27.4 % Normal [facility] Comment on above: Order Comment: Speci men Type: BLOOD SPECIMEN Ordering Facility: [facility] Address: [address] [place] [address] Performed By: #### 2 4323-8, TSHRF, 2275-12, 38390-9 #### [facility] CLIA [id number] [address] [place] MCH (RBC) [Entitic mass] 26.0 pg Normal 26.0-34.0 [facility] Comment on above: Order Comment: Speci men Type: BLOOD SPECIMEN Ordering Facility: [facility] Address: [address] [place] [address] Performed By: #### 2 4323-8, TSHRF, 2275-12, #### [facility] CLIA [id number] [address] [place] [address] [place] MCHC (RBC) [Mass/Vol] 31.1 g/dL Normal 30.5-36.0 [facility] Comment on above: Order Comment: Speci men Type: BLOOD SPECIMEN Ordering Facility: [facility] Address: [address] [place] [address] Performed By: #### 2 4323-8, TSHRF, 2275-12, #### [facility] CLIA [id number] [address] [place] MCV (RBC) [Entitic vol] 83.7 fL Normal 80.0-100.0 [facility] Comment on above: Order Comment: Speci men Type: BLOOD SPECIMEN Ordering Facility: [facility] Address: [address] [place] [address] Performed By: #### 2 4323-8, TSHRF, 2275-12, #### [facility] CLIA [id number] [address] [place] [address] [place] Monocytes (Bld) [#/Vol] 0.30 10*3/uL Normal <0.87 [facility] Comment on above: Order Comment: Speci men Type: BLOOD SPECIMEN Ordering Facility: [facility] Address: [address] [place] [address] Performed By: #### 2 4323-8, TSHRF, 2275-12, #### [facility] CLIA [id number] [address] Monocytes/100 WBC (Bld) 7.3 % Normal [facility] Comment on above: Order Comment: Speci men Type: BLOOD SPECIMEN Ordering Facility: [facility] Address: [address] [place] [address] Performed By: #### 2 4323-8, TSH, 4, 60577-0 #### [facility] CLIA [id number] [address] [place] [address] [place] Neutrophils (Bld) [#/Vol] 2.50 10*3/uL Normal 1.45-7.50 [facility] Comment on above: Order Comment: Speci men Type: BLOOD SPECIMEN Ordering Facility: [facility] Address: [address] [place] [address] Performed By: #### 2 4323-8, TSHRF, 2275-, 09885-2 #### [facility] CLIA [id number] [address] [place] [address] [place] Neutrophils/100 WBC (Bld) 60.6 % Normal [facility] Comment on above: Order Comment: Speci men Type: BLOOD SPECIMEN Ordering Facility: [facility] Address: [address] [place] [address] Performed By: #### 2 4323-8, [facility], 2275-12, 54933-6 #### [facility] CLIA [id number] [address] [place] [address] [place] Platelet mean volume (Bld) [Entitic vol] 11.9 fL Normal 9.0-12.7 [facility] Comment on above: Order Comment: Speci men Type: BLOOD SPECIMEN Ordering Facility: [facility] Address: [address] [place] [address] Performed By: #### 2 4323-8, [facility], 2275-12, 18108-4 #### [facility] CLIA [id number] [address] [place] [address] [place] Platelets (Bld) [#/Vol] 78 10*3/uL Low 150-400 [facility] Comment on above: Order Comment: Speci men Type: BLOOD SPECIMEN Ordering Facility: [facility] Address: [address] [place] [address] Performed By: #### 2 4323-8, TSHRF, 2275-12, 53972-8 #### [facility] CLIA [id number] [address] [place] [address] [place] RBC (Bld) [#/Vol] 3.69 10*6/uL Low 4.20-6.00 [facility] Comment on above: Order Comment: Speci men Type: BLOOD SPECIMEN Ordering Facility: [facility] Address: [address] [place] [address] Performed By: #### 2 4323-8, TSHRF, 2275-4, 30568-8 #### [facility] CLIA [id number] [address] [place] [address] [place] WBC (Bld) [#/Vol] 4.12 10*3/uL Normal 3.70-11.00 [facility] Comment on above: Order Comment: Speci men Type: BLOOD SPECIMEN Ordering Facility: [facility] Address: [address] [place] [address] Performed By: #### 2 4323-8, TSHRF, 2275-4, 61159-5 #### [facility] CLIA [id number] [address] [facility] CBC W Ordered Manual Differe ntial panel (Bld)on 06-26-2025 Eosinophils (Bld) [#/Vol] 0.10 10*3/uL Normal <0.46 [facility] Comment on above: Order Comment: Speci men Type: BLOOD SPECIMEN Ordering Facility: [facility] Address: [address] [place] [address] Performed By: #### 2 4323-8, TSHRF, 2275-4, 27507-8 #### [facility] CLIA [id number] [address] [place] [address] [place] Eosinophils/100 WBC (Bld) 2.4 % Normal [facility] Comment on above: Order Comment: Speci men Type: BLOOD SPECIMEN Ordering Facility: [facility] Address: [address] [place] [address] Performed By: #### 2 4323-8, TSHRF, 4, 51991-9 #### [facility] CLIA [id number] [address] [place] Hematocrit (Bld) [Volume fraction] 31.1 % Low 39.0-51.0 [facility] Comment on above: Order Comment: Speci men Type: BLOOD SPECIMEN Ordering Facility: [facility] Address: [address] [place] [address] Performed By: #### 2 4323-8, TSHRF, 2275-12, #### [facility] CLIA [id number] [address] [place] [address] [place] Hemoglobin (Bld) [Mass/Vol] 9.5 g/dL Low 13.0-17.0 [facility] Comment on above: Order Comment: Speci men Type: BLOOD SPECIMEN Ordering Facility: [facility] Address: [address] [place] [address] Performed By: #### 2 4323-8, TSHRF, 2275-12, #### [facility] CLIA [id number] [address] [place] [address] [place] Lymphocytes (Bld) [#/Vol] 1.16 10*3/uL Normal 1.00-4.00 [facility] Comment on above: Order Comment: Speci men Type: BLOOD SPECIMEN Ordering Facility: [facility] Address: [address] [place] [address] Performed By: #### 2 4323-8, TSHRF, 2275-12, #### [facility] CLIA [id number] [address] [place] Lymphocytes/100 WBC (Bld) 27.9 % Normal [facility] Comment on above: Order Comment: Speci men Type: BLOOD SPECIMEN Ordering Facility: [facility] Address: [address] [place] [address] Performed By: #### 2 4323-8, TSHRF, 2275-12, #### [facility] CLIA [id number] [address] [place] [address] [place] MCH (RBC) [Entitic mass] 25.5 pg Low 26.0-34.0 [facility] Comment on above: Order Comment: Speci men Type: BLOOD SPECIMEN Ordering Facility: [facility] Address: [address] [place] [address] Performed By: #### 2 4323-8, TSHRF, 2275-12, #### [facility] CLIA [id number] [address] [place] [address] [place] MCHC (RBC) [Mass/Vol] 30.5 g/dL Normal 30.5-36.0 [facility] Comment on above: Order Comment: Speci men Type: BLOOD SPECIMEN Ordering Facility: [facility] Address: [address] [place] [address] Performed By: #### 2 4323-8, TSHRF, 2275-, #### [facility] CLIA [id number] [address] [place] [address] [place] MCV (RBC) [Entitic vol] 83.4 fL Normal 80.0-100.0 [facility] Comment on above: Order Comment: Speci men Type: BLOOD SPECIMEN Ordering Facility: [facility] Address: [address] [place] [address] Performed By: #### 2 4323-8, [facility], 2275-12, #### [facility] CLIA [id number] [address] [place] [address] [place] Monocytes (Bld) [#/Vol] 0.31 10*3/uL Normal <0.87 [facility] Comment on above: Order Comment: Speci men Type: BLOOD SPECIMEN Ordering Facility: [facility] Address: [address] [place] [address] Performed By: #### 2 4323-8, [facility], 2275-12, #### [facility] CLIA [id number] [address] [place] [facility] Monocytes/100 WBC (Bld) 7.5 % Normal [facility] Comment on above: Order Comment: Speci men Type: BLOOD SPECIMEN Ordering Facility: [facility] Address: [address] [place] [address] Performed By: #### 2 4323-8, TSHRF, 2275-12, 44870-6 #### [facility] CLIA [id number] [address] [place] [address] [place] Neutrophils (Bld) [#/Vol] 2.51 10*3/uL Normal 1.45-7.50 [facility] Comment on above: Order Comment: Speci men Type: BLOOD SPECIMEN Ordering Facility: [facility] Address: [address] [place] [address] Performed By: #### 2 4323-8, TSHRF, 2275-, 37092-7 #### [facility] CLIA [id number] [address] [place] [address] [place] Neutrophils/100 WBC (Bld) 60.2 % Normal [facility] Comment on above: Order Comment: Speci men Type: BLOOD SPECIMEN Ordering Facility: [facility] Address: [address] [place] [address] Performed By: #### 2 4323-8, TSH, 2275-12, 27746-7 #### [facility] CLIA [id number] [address] [place] [address] [place] Platelet mean volume (Bld) [Entitic vol] 12.4 fL Normal 9.0-12.7 [facility] Comment on above: Order Comment: Speci men Type: BLOOD SPECIMEN Ordering Facility: [facility] Address: [address] [place] [address] Performed By: #### 2 4323-8, TSH, 2275-12, 65832-5 #### [facility] CLIA [id number] [address] [place] [address] [place] Platelets (Bld) [#/Vol] 80 10*3/uL Low 150-400 [facility] Comment on above: Order Comment: Speci men Type: BLOOD SPECIMEN Ordering Facility: [facility] Address: [address] [place] [address] Result Comment: Plat elet count confirmed by manual review of peripheral blood smear. Performed By: #### 2 4323-8, TSHRF, 2275-12, 45193-5 #### [facility] CLIA [id number] [address] [place] [address] [place] RBC (Bld) [#/Vol] 3.73 10*6/uL Low 4.20-6.00 [facility] Comment on above: Order Comment: Speci men Type: BLOOD SPECIMEN Ordering Facility: [facility] Address: [address] [place] [address] Performed By: #### 2 4323-8, TSHRF, 2275-4, 56097-4 #### [facility] CLIA [id number] [address] [place] [address] [place] WBC (Bld) [#/Vol] 4.16 10*3/uL Normal 3.70-11.00 [facility] Comment on above: Order Comment: Speci men Type: BLOOD SPECIMEN Ordering Facility: [facility] Address: [address] [place] [address] Performed By: #### 2 4323-8, TSHRF, 2275-4, 18029-1 #### [facility] CLIA [id number] [address] OF [facility] CBC W ordered manual diff Bl don 06-26-2025 Basophils (Bld) [#/Vol] 0.04 10*3/uL Normal <0.11 [facility] Comment on above: Order Comment: Speci men Type: BLOOD SPECIMEN Ordering Facility: [facility] Address: [address] [place] [address] Performed By: #### 2 4323-8, TSHRF, 2275-, 03171-4 #### [facility] CLIA [id number] [address] [place] Basophils/100 WBC (Bld) 1.0 % Normal [facility] Comment on above: Order Comment: Speci men Type: BLOOD SPECIMEN Ordering Facility: [facility] Address: [address] [place] [address] Performed By: #### 2 4323-8, TSHRF, 2275-4, 80120-0 #### [facility] CLIA [id number] [address] Differential cell count method Nom (Bld) Auto Normal [facility] Comment on above: Order Comment: Speci men Type: BLOOD SPECIMEN Ordering Facility: [facility] Address: [address] [place], [place] [address] Performed By: #### 2 4323-8, TSHRF, 2275-4, 40476-3 #### [facility] CLIA [id number] [address] [place] [address] [place] Erythrocyte distribution width (RBC) [Ratio] 14.9 % Normal 11.5-15.0 [facility] Comment on above: Order Comment: Speci men Type: BLOOD SPECIMEN Ordering Facility: [facility] Address: [address] [place] [address] Performed By: #### 2 4323-8, TSHRF, 2275-4, 31773-7 #### [facility] CLIA [id number] [address] [place] [address] [place] Immature granulocytes (Bld) [#/Vol] 0.04 10*3/uL Normal <0.10 [facility] Comment on above: Order Comment: Speci men Type: BLOOD SPECIMEN Ordering Facility: [facility] Address: [address] [place] [address] Performed By: #### 2 4323-8, TSHRF, 2275-12, 86649-4 #### [facility] CLIA [id number] [address] [place] [address] [place] Immature granulocytes/100 WBC (Bld) 1.0 % Normal [facility] Comment on above: Order Comment: Speci men Type: BLOOD SPECIMEN Ordering Facility: [facility] Address: [address] [place] [address] Performed By: #### 2 4323-8, TSHRF, 2275-12, 32562-0 #### [facility] CLIA [id number] [address] [place] [address] [place] Nucleated RBC (Bld) [#/Vol] 10*3/uL Normal <0.01 [facility] Comment on above: Order Comment: Speci men Type: BLOOD SPECIMEN Ordering Facility: [facility] Address: [address] [place] [address] Performed By: #### 2 4323-8, TSHRF, 2275-, 81327-9 #### [facility] CLIA [id number] [address] [place] [address] [place] Nucleated RBC/100 WBC (Bld) [Ratio] 0.0 /100 WBC Normal [facility] Comment on above: Order Comment: Speci men Type: BLOOD SPECIMEN Ordering Facility: [facility] Address: [address] [place] [address] Performed By: #### 2 4323-8, TSHRF, 6-4, 91702-5 #### [facility] CLIA [id number] [address] CBC panel Auto (Bld)on 06-26 Erythrocyte distribution width (RBC) [Ratio] 14.8 % Normal 11.5-15.0 [facility] Comment on above: Order Comment: Speci men Type: BLOOD SPECIMEN Ordering Facility: [facility] Address: [address] [place] [address] Performed By: #### 2 4323-8, TSHRF, 6-4, 59853-6 #### [facility] CLIA [id number] [address] Hematocrit (Bld) [Volume fraction] 28.2 % Low 39.0-51.0 [facility] Comment on above: Order Comment: Speci men Type: BLOOD SPECIMEN Ordering Facility: [facility] Address: [address] [place] [address] Performed By: #### 2 4323-8, TSHRF, 6-4, 48547-7 #### [facility] CLIA [id number] [address] [place] Hemoglobin (Bld) [Mass/Vol] 8.7 g/dL Low 13.0-17.0 [facility] Comment on above: Order Comment: Speci men Type: BLOOD SPECIMEN Ordering Facility: [facility] Address: [address] [place] [address] Performed By: #### 2 4323-8, TSHRF, 6-4, 71472-4 #### [facility] CLIA [id number] [address] [place] MCH (RBC) [Entitic mass] 25.6 pg Low 26.0-34.0 [facility] Comment on above: Order Comment: Speci men Type: BLOOD SPECIMEN Ordering Facility: [facility] Address: [address] [place] [address] Performed By: #### 2 4323-8, TSHRF, 2275-12, #### [facility] [facility] CLIA [id number] [address] [place] MCHC (RBC) [Mass/Vol] 30.9 g/dL Normal 30.5-36.0 [facility] Comment on above: Order Comment: Speci men Type: BLOOD SPECIMEN Ordering Facility: [facility] Address: [address] [place] [address] Performed By: #### 2 4323-8, TSHRF, 2275-12, 86942-2 #### [facility] CLIA [id number] [address] [place] MCV (RBC) [Entitic vol] 82.9 fL Normal 80.0-100.0 [facility] Comment on above: Order Comment: Speci men Type: BLOOD SPECIMEN Ordering Facility: [facility] Address: [address] [place] [address] Performed By: #### 2 4323-8, TSHRF, 2275-12, #### [facility] CLIA [id number] [address] [place] Nucleated RBC (Bld) [#/Vol] 10*3/uL Normal <0.01 [facility] Comment on above: Order Comment: Speci men Type: BLOOD SPECIMEN Ordering Facility: [facility] Address: [address] [place] [address] Performed By: #### 2 4323-8, TSHRF, 2275-12, #### [facility] CLIA [id number] [address] [place] Platelet mean volume (Bld) [Entitic vol] 11.2 fL Normal 9.0-12.7 [facility] Comment on above: Order Comment: Speci men Type: BLOOD SPECIMEN Ordering Facility: [facility] Address: [address] [place] [address] Performed By: #### 2 4323-8, TSHRF, 2275-4, 46394-2 #### [facility] CLIA [id number] 1000 [place] [address] [place] Platelets (Bld) [#/Vol] 70 10*3/uL Low 150-400 [facility] Comment on above: Order Comment: Speci men Type: BLOOD SPECIMEN Ordering Facility: [facility] Address: [address] [place] [address] Result Comment: No c lot detected. Performed By: #### 2 4323-8, TSHRF, 2275-4, 94085-2 #### [facility] CLIA [id number] [address] [place] RBC (Bld) [#/Vol] 3.40 10*6/uL Low 4.20-6.00 [facility] Comment on above: Order Comment: Speci men Type: BLOOD SPECIMEN Ordering Facility: [facility] Address: [address] [place] [address] Performed By: #### 2 4323-8, TSH, 2275-, 12094-2 #### [facility] CLIA [id number] [address] [place] WBC (Bld) [#/Vol] 3.20 10*3/uL Low 3.70-11.00 [facility] Comment on above: Order Comment: Speci men Type: BLOOD SPECIMEN Ordering Facility: [facility] Address: [address] [place] [address] Performed By: #### 2 4323-8, TSHRF, 2275-4, 18138-4 #### [facility] CLIA [id number] [address] OF [facility] Hematocrit (Bld) [Volume fraction] 31.0 % Low 39.0-51.0 [facility] Comment on above: Order Comment: Speci men Type: BLOOD SPECIMEN Ordering Facility: [facility] Address: [address] [place] [address] Performed By: #### 2 4323-8, TSHRF, 2275-4, 50759-8 #### [facility] CLIA [id number] [address] MCH (RBC) [Entitic mass] 25.9 pg Low 26.0-34.0 [facility] Comment on above: Order Comment: Speci men Type: BLOOD SPECIMEN Ordering Facility: [facility] Address: [address] [place] [address] Performed By: #### 2 4323-8, TSHRF, 2275-, 66432-4 #### [facility] CLIA [id number] [address] MCHC (RBC) [Mass/Vol] 31.0 g/dL Normal 30.5-36.0 [facility] Comment on above: Order Comment: Speci men Type: BLOOD SPECIMEN Ordering Facility: [facility] Address: [address] [place] [address] Performed By: #### 2 4323-8, TSH, 2275-12, 94465-3 #### [facility] CLIA [id number] [address] MCV (RBC) [Entitic vol] 83.8 fL Normal 80.0-100.0 [facility] Comment on above: Order Comment: Speci men Type: BLOOD SPECIMEN Ordering Facility: [facility] Address: [address] [place] [address] Performed By: #### 2 4323-8, [facility], 2275-12, 61105-7 #### [facility] CLIA [id number] [address] Platelet mean volume (Bld) [Entitic vol] 11.4 fL Normal 9.0-12.7 [facility] Comment on above: Order Comment: Speci men Type: BLOOD SPECIMEN Ordering Facility: [facility] Address: [address] [place] [address] Performed By: #### 2 4323-8, TSHRF, 2275-, 27591-0 #### [facility] CLIA [id number] [address] [place] Platelets (Bld) [#/Vol] 76 10*3/uL Low 150-400 [facility] Comment on above: Order Comment: Speci men Type: BLOOD SPECIMEN Ordering Facility: [facility] Address: [address] [place] [address] Result Comment: No c lot detected. Performed By: #### 2 4323-8, TSHRF, 2276-4, 39419-7 #### [facility] CLIA [id number] [address] [place] [address] [place] RBC (Bld) [#/Vol] 3.70 10*6/uL Low 4.20-6.00 [facility] Comment on above: Order Comment: Speci men Type: BLOOD SPECIMEN Ordering Facility: [facility] Address: [address] [place] [address] Performed By: #### 2 4323-8, TSHRF, 6-4, 97927-9 #### [facility] CLIA [id number] [address] [place] [address] [place] WBC (Bld) [#/Vol] 4.08 10*3/uL Normal 3.70-11.00 [facility] Comment on above: Order Comment: Speci men Type: BLOOD SPECIMEN Ordering Facility: [facility] Address: [address] [place] [address] Performed By: #### 2 4323-8, TSHRF, 6-4, 36703-7 #### [facility] CLIA [id number] [address] [place] CNPTOUTREACHon 06-26-2025 CNPTOUTREACH Normal [facility] CONSULTon 06-26-2025 CONSULT HNO ID: [id number] Author: SEYMOUR WALDROP MD Service: Hematology/Oncology Author Type: Physician Type: Consults Filed: 06/27/2025 14:47 Note Text: HEMATOLOGY/ONCOLOGY INITIAL CONSULT NOTE SERVICE DATE: 06/26/2025 REASON FOR CONSULT: pancytopenia, anemia REQUESTING PHYSICIAN: Chrissie Ulloa MD PRIMARY CARE PHYSICIAN: Dee Ashley MD Subjective Mr. Nolasco is a 75 year old male with PMHx of CAD, a-fib (eliquis), ZORAIAD, DM, BOSTON, HTN, hypothyroidism and thrombocytopenia, who presented to the ED yesterday with low Hgb on outpatient labs, shortness of breath and increasing fatigue. Patient reported dark black tarry stools 1 month ago and taking daily meloxicam and prn ibuprofen for breakthrough pain 2-3 times per week. He decreased eliquis dosing on his own and melena resolved. Labs in ED significant for Hgb 6.5, occult stool positive, platelets 71, WBC 2.94. Last EGD and colonoscopy done 02/05/2024 showed normal EGD and 2 polyps in the transverse colon (benign), however, prep of the colon was inadequate. Patient ordered 2 units PRBC and admitted for further management. Hematology/oncology has been consulted for pancytopenia and anemia. Patient off floor for procedure at time of rounding. Dr. Waldrop to round on patient this evening. 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 Diabetes mellitus (HCC) Diarrhea Dual implantable cardioverter-defibrillator in situ Dyslipidemia Esophageal reflux Ex-smoker History of transfusion Hypothyroidism 11/21/2022 Mononeuritis of unspecified site Obesity, unspecified Other chronic nonalcoholic liver disease Personal history of colonic polyps 03/20/2005 hyperplastic polyps Unspecified essential hypertension PAST SURGICAL HISTORY Procedure Laterality Date BSCAN OS (LEFT EYE) Left CARDIOVERSION 04/30/2023 COLONOSCOPY FLX DX W/COLLJ SPEC WHEN PFRMD 03/20/2005 Colonoscopy COLONOSCOPY FLX DX W/COLLJ SPEC WHEN PFRMD 06/15/2015 Colonoscopy WC out pt ENDOSCOPY PROC 08/2018 ESOPHAGOGASTRODUODENOSCOPY TRANSORAL DIAGNOSTIC 06/15/2015 EGD [facility] out pt EXCISION PILONIDAL CYST/SINUS SIMPLE 01/19/2003 Excision pilonidal cyst PACEMAKER SURGERY 03/11/2012 pacer/defib PACEMAKER SURGERY 09/17/2018 PAST SURGICAL HISTORY OF 09/16/2012 eye surgery, s/p Plaque OS PRO SMART PILL CAPSULE PROC ([id number]) 10/15/2018 REMOVAL GALLBLADDER 06/10/2021 REMOVE PACEMAKER SYSTEM 09/17/2018 replaced it all RPR UMBILICAL HERNIA < 5 YRS REDUCIBLE 02/17/1999 Hernia repair, umbilical FAMILY HISTORY Problem Relation Age of Onset Heart Mother of CHF at 91 Stroke Mother Hypertension Mother other (Other) Father at 87 of a brain aneurysm Hypertension Brother Stroke Brother Heart Brother Goiter Maternal Grandmother Aneurysm Maternal Grandfather brain No Ocular Disease Other Colon Cancer No Family History SOCIAL HISTORY[1] Prescriptions Prior to Admission[2] Current Facility-Administered Medications Medication Dose Route Frequency NaCl 0.9% iv flush bag 20 mL INTRAVENOUS PRN pantoprazole 40 mg injection (PROTONIX) 40 mg INTRAVENOUS BID AC (0600/1600) Followed by [START ON 06/29/2025] pantoprazole 40 mg injection (PROTONIX) 40 mg INTRAVENOUS DAILY (6 AM) amLODIPine 5 mg tab(s) (NORVASC) 5 mg ORAL DAILY lisinopril 40 mg tab(s) (ZESTRIL) 40 mg ORAL DAILY lovastatin 20 mg tab(s) (MEVACOR) 20 mg ORAL q 48 H metoprolol tartrate (short acting) 100 mg tab(s) (LOPRESSOR) 100 mg ORAL BID dextrose 40 % 15 g 15 g ORAL PRN Or glucagon 1 mg injection 1 mg INTRAMUSCULAR PRN Or dextrose 10% iv bolus 12.5 g INTRAVENOUS PRN buPROPion XL 150 mg tab(s) (WELLBUTRIN XL) 150 mg ORAL DAILY DULoxetine DR 60 mg cap(s) (CYMBALTA) 60 mg ORAL DAILY allopurinol 200 mg tab(s) (ZYLOPRIM) 200 mg ORAL DAILY apremilast 30 mg tab(s) (OTEZLA) 30 mg ORAL DAILY gabapentin 600 mg tab(s) (NEURONTIN) 600 mg ORAL AT BEDTIME levothyroxine 50 mcg tab(s) (SYNTHROID) 50 mcg ORAL DAILY (6 AM) tamsulosin 0.8 mg cap(s) (FLOMAX) 0.8 mg ORAL DAILY sodium chloride 0.9 % (flush) 2-10 mL (BD POSIFLUSH) 2-10 mL INTRAVENOUS DIRECTED PRN And perflutren lipid microspheres 1.1 mg/mL 1.3 mL injection (DEFINITY) 1.3 mL INTRAVENOUS DIRECTED PRN insulin lispro injection (rapid acting) (ADMElog) SUBCUTANEOUS w MEALS insulin glargine 5 Units pen (long acting) 5 Units SUBCUTANEOUS AT BEDTIME ipratropium-albuterol 3 mL nebulizer solution (DUONEB) 3 mL INHALATION QID ferric gluconate 125 mg in NaCl 0.9% 100 mL (FERRLECIT) 125 mg INTRAVENOUS DAILY AT 6 PM torsemide 20 mg tab(s) (DEMADEX) 20 mg ORAL DAILY Allergies As of Date: 06/25/2025 (No Known Allergies) Fully Assessed 06/25/2025 COMPLETE REVIEW OF SYSTEMS: As noted in HPI Objective BP 158/81 Pulse 90 Temp (Src) 98.3 (Oral) Resp 16 Ht 5' 9.5 (1.77m) Wt 281 lb 4.9 oz (127.6kg) SpO2 94% (more content not included)... Normal [facility] COPPER BLOODon 06-26-2025 Copper [Mass/Vol] 99 ug/dL Normal 70-140 [facility] Comment on above: Order Comment: Specclair carrasco Type: BLOOD SPECIMEN Ordering Facility: [facility] Address: [address] [place] [address] Result Comment: This test was developed, and its performance characteristics determined by the [facility] Department of Pathology and Laboratory Medicine. It has not been cleared or approved by the FDA. The [facility] Department of Pathology and Laboratory Medicine is regulated under CLIA as qualified to perform high-complexity testing. This test is used for clinical purposes. It should not be regarded as investigational or for research. Performed By: #### 2 4323-8, TSHRF, 2276-4, 95934-4 #### [facility] CLIA [id number] [address] [place] [address] [facility] [place] Comprehensive metabolic 2000 panelon 06-26-2025 Albumin [Mass/Vol] 3.2 g/dL Low 3.9-4.9 [facility] Comment on above: Order Comment: Clarita carrasco Type: BLOOD SPECIMEN Ordering Facility: [facility] Address: [address] [place] [address] Performed By: #### 2 4323-8 #### [facility] CLIA [id number] [address] [place] ALP [Catalytic activity/Vol] 116 U/L High 38-113 [facility] Comment on above: Order Comment: Clarita carrasco Type: BLOOD SPECIMEN Ordering Facility: [facility] Address: [address] [place] [address] Performed By: #### 2 4323-8 #### [facility] CLIA [id number] [address] [place] [address] [place] ALT [Catalytic activity/Vol] 7 U/L Low 10-54 [facility] Comment on above: Order Comment: Speci men Type: BLOOD SPECIMEN Ordering Facility: [facility] Address: [address] [place] [address] Performed By: #### 2 4323-8 #### [facility] CLIA [id number] [address] [place] [address] [place] Anion gap [Moles/Vol] 10 mmol/L Normal 8-15 [facility] Comment on above: Order Comment: Speci men Type: BLOOD SPECIMEN Ordering Facility: [facility] Address: [address] [place] [address] Performed By: #### 2 4323-8 #### [facility] CLIA [id number] [address] AST [Catalytic activity/Vol] 11 U/L Low 14-40 [facility] Comment on above: Order Comment: Speci men Type: BLOOD SPECIMEN Ordering Facility: [facility] Address: [address] [place] [address] Performed By: #### 2 4323-8 #### [facility] CLIA [id number] [address] [place] [address] [place] Bilirubin [Mass/Vol] 0.5 mg/dL Normal 0.2-1.3 [facility] Comment on above: Order Comment: Speci men Type: BLOOD SPECIMEN Ordering Facility: [facility] Address: [address] [place] [address] Performed By: #### 2 4323-8 #### [facility] CLIA [id number] [address] [place] [address] [place] Calcium [Mass/Vol] 8.0 mg/dL Low 8.5-10.2 [facility] Comment on above: Order Comment: Speci men Type: BLOOD SPECIMEN Ordering Facility: [facility] Address: [address] [place] [address] Performed By: #### 2 4323-8 #### [facility] CLIA [id number] [address] [place] [address] [place] Chloride [Moles/Vol] 107 mmol/L Normal 98-107 [facility] Comment on above: Order Comment: Speci men Type: BLOOD SPECIMEN Ordering Facility: [facility] Address: [address] [place] [address] Performed By: #### 2 4323-8 #### [facility] CLIA [id number] [address] [place] CO2 [Moles/Vol] 20 mmol/L Low 22-30 [facility] Comment on above: Order Comment: Speci men Type: BLOOD SPECIMEN Ordering Facility: [facility] Address: [address] [place] [address] Performed By: #### 2 4323-8 #### [facility] CLIA [id number] [address] Creatinine [Mass/Vol] 1.10 mg/dL Normal 0.73-1.22 [facility] Comment on above: Order Comment: Speci men Type: BLOOD SPECIMEN Ordering Facility: [facility] Address: [address] [place] [address] Performed By: #### 2 4323-8 #### [facility] CLIA [id number] [address] eGFRcr SerPlBld CKD-EPI 2020 70 mL/min/1.73m??? Normal >=60 [facility] Comment on above: Order Comment: Hui men Type: BLOOD SPECIMEN Ordering Facility: [facility] Address: [address] [place] [address] Result Comment: Alvina mated Glomerular Filtration Rate (eGFR) is calculated using the 2020 CKD-EPI creatinine equation. This equation utilizes serum creatinine, sex, and age as parameters. The creatinine assay has traceable calibration to isotope dilution-mass spectrometry. Refer to KDIGO guidelines for clinical interpretation. In patients with unstable renal function, e.g. those with acute kidney injury, the eGFR may not accurately reflect actual GFR. Performed By: #### 2 4323-8 #### [facility] CLIA [id number] [address] [place] Glucose [Mass/Vol] 147 mg/dL High 74-99 [facility] Comment on above: Order Comment: Clarita carrasco Type: BLOOD SPECIMEN Ordering Facility: [facility] Address: [address] [id number] Result Comment: The [place] [employer] (ADA) provides guidance for cutoff values for fasting glucose and random glucose. The ADA defines fasting as no caloric intake for at least 8 hours. Fasting plasma glucose results between 100 to 125 mg/dL indicate increased risk for diabetes (prediabetes). Fasting plasma glucose results greater than or equal to 126 mg/dL meet the criteria for diagnosis of diabetes. In the absence of unequivocal hyperglycemia, results should be confirmed by repeat testing. In a patient with classic symptoms of hyperglycemia or hyperglycemic crisis, random plasma glucose results greater than or equal to 200 mg/dL meet the criteria for diagnosis of diabetes. Reference: Standards of Medical Care in Diabetes 2016, [place] [employer]. Diabetes Care. 2016.39(Suppl 1). Performed By: #### 2 4323-8 #### [facility] CLIA [id number] [address] [place] [address] [place] Potassium [Moles/Vol] 4.0 mmol/L Normal 3.7-5.1 [facility] Comment on above: Order Comment: Clarita carrasco Type: BLOOD SPECIMEN Ordering Facility: [facility] Address: [address] [place] [address] Performed By: #### 2 4323-8 #### [facility] CLIA [id number] [address] [place] [address] [place] Protein [Mass/Vol] 5.9 g/dL Low 6.3-8.0 [facility] Comment on above: Order Comment: Clarita carrasco Type: BLOOD SPECIMEN Ordering Facility: [facility] Address: [address] [id number] Performed By: #### 2 4323-8 #### [facility] CLIA [id number] [address] [place] [address] [place] Sodium [Moles/Vol] 137 mmol/L Normal 136-144 [facility] Comment on above: Order Comment: Clarita carrasco Type: BLOOD SPECIMEN Ordering Facility: [facility] Address: [address] [id number] Performed By: #### 2 4323-8 #### [facility] CLIA [id number] [address] Urea nitrogen [Mass/Vol] 8 mg/dL Low 9- [facility] Comment on above: Order Comment: Specclair carrasco Type: BLOOD SPECIMEN Ordering Facility: [facility] Address: [address] [place] [address] Performed By: #### 2 4323-8 #### [facility] CLIA [id number] [address] PATHOLOGIST INTERPRETATION C BC/DIFFon 06-26-2025 Drill Sergeant review Jamari (Unsp spec) [Interp] No review performed. [facility] Comment on above: Order Comment: Clarita carrasco Type: BLOOD SPECIMEN Ordering Facility: [facility] Address: [address] [place] [address] Performed By: #### 2 4323-8, TSH, 6-4, 96950-9 #### [facility] CLIA [id number] [address] STAFF REVIEW, CBCDIF This specimen was flagged for only platelet abnormalities, without red or white blood cell flags. The peripheral blood smear was reviewed by a trained sugar laboratory assistant and did not show evidence of pseudothrombocytopenia (due to platelet clumping or satellitosis), abnormal platelet morphology (macrocytosis, hypogranularity), increased red blood cell fragments, or abnormal leukocytes (blasts, lymphoma cells). If there is a specific clinical concern for which you would like a pathologist to review the blood smear, please call Lab Client Services within [address] [facility] Comment on above: Order Comment: Speci danilo Type: BLOOD SPECIMEN Ordering Facility: [facility] Address: [address] [place] [address] Performed By: #### 2 4323-8, TSH, 2275-4, 19240-1 #### [facility] CLIA [id number] [address] Upper GI endoscopyon 025 Upper GI endoscopy [facility] Gastrointestinal Endoscopy Patient Name: Yazan Nolasco Procedure Date: 06/26/2025 12:34 PM Date of : 1950 Admit Type: Inpatient Age: 75 Room: [facility] Gender: Male Note Status: Finalized Attending MD: Yuridia James MD, [id number] Procedure: Upper GI endoscopy Indications: Iron deficiency anemia Providers: Yuridia James MD Patient Profile: Refer to note in patient chart for documentation of history and physical. Referring Physician: Yuridia James MD (Referring MD) Medicines: Monitored Anesthesia Care Complications: No immediate complications. Estimated blood loss: None. Requesting Provider: Procedure: Pre-Anesthesia Assessment: - Prior to the procedure, a History and Physical was performed, and patient medications, allergies and sensitivities were reviewed. The patient's tolerance of previous anesthesia was reviewed. - The risks and benefits of the procedure and the sedation options and risks were discussed with the patient. All questions were answered and informed consent was obtained. - Patient identification and proposed procedure were verified prior to the procedure by the physician, the nurse, the communication center coordinator and the optical technician. - ASA Grade Assessment: III - A patient with severe systemic disease. After obtaining informed consent, the endoscope was passed under direct vision. Throughout the procedure, the patient's blood pressure, pulse, and oxygen saturations were monitored continuously. The Endoscope was introduced through the mouth, and advanced to the second part of duodenum. The upper GI endoscopy was accomplished with ease. The patient tolerated the procedure well. Moderate Sedation: MAC anesthesia was administered by the anesthesia team. Total Procedure Duration: 0 hours 2 minutes 14 seconds Findings: Irregular z-line. No varices noted. Snake skin like appearance to mucosa in stomach body and fundus with erythema consistent with severe portal hypertensive gastropathy was found in the stomach. The examined duodenum was normal. Impression: - Mucosal changes in the esophagus. - Portal hypertensive gastropathy. - Normal examined duodenum. - No specimens collected. Recommendation: - Return patient to hospital truong for ongoing care. - Resume previous diet. - Continue present medications. - Daily iron supplementation. Procedure Code(s): --- Professional --- 27924, Esophagogastroduodenoscopy, flexible, transoral; diagnostic, including collection of specimen(s) by brushing or washing, when performed (separate procedure) Diagnosis Code(s): --- Professional --- D50.9, Iron deficiency anemia, unspecified CPT copyright 2020 [employer] [employer]. All rights reserved. The codes documented in this report are preliminary and upon concrete wall grinder operator review may be revised to meet current compliance requirements. Attending Participation: I personally performed the entire procedure. Scope In: 12:43:52 PM Scope Out: 12:46:06 PM MD Yuridia Pierce MD 06/26/2025 12:51:31 PM This report has been signed electronically by Yuridia James MD Number of Addenda: 0 Note Initiated On: 06/26/2025 12:34 PM Estimated Blood Loss: Estimated blood loss: none. Normal [facility] Zinc SerPl-mCncon 06-26-2025 Zinc [Mass/Vol] 54 ug/dL Low 60-120 [facility] Comment on above: Order Comment: Speci men Type: BLOOD SPECIMEN Ordering Facility: [facility] Address: [address] [place] [address] Result Comment: This test was developed, and its performance characteristics determined by the [facility] Department of Pathology and Laboratory Medicine. It has not been cleared or approved by the FDA. The [facility] Department of Pathology and Laboratory Medicine is regulated under CLIA as qualified to perform high-complexity testing. This test is used for clinical purposes. It should not be regarded as investigational or for research. Performed By: #### 2 4323-8, TSHRF, 2276-4, 69049-0 #### [facility] CLIA [id number] [address] [place] [address] OF [facility] HEALTHon 06-25-2025 [facility] HNO ID: [id number] Author: JANEL QUISPE RDMS Service: Radiology Author Type: Technologist Type: Allied Health Filed: 06/25/2025 17:26 Note Text: Radiology Service Progress Note PATIENT NAME: Yazan Nolasco DATE OF SERVICE: June 25, 2025 TIME: 5:25 PM PATIENT IDENTITY VERIFICATION COMPLETED USING TWO (2) IDENTIFIERS: Name and Date of confirmed by patient verbally and Name and Date of confirmed by identification band. FALL SCREENING: Has the patient had 2 falls in the last year or 1 fall with injury or currently using an Ambulatory Assistive Device (Walker, Cane, Wheelchair, Crutches, etc.)? Inpatient: Screened on floor PATIENT GENDER DATA: Assigned male at PATIENT RELEVANT IMPLANT DATA REVIEWED: Not Applicable PATIENT PRESENTS WITH AN IMPLANTABLE OR ATTACHED APPELLATE COURT CLERK: No RADIOLOGY DEPARTMENT: Ultrasound PERIPHERAL IV DATA: Not applicable SIGNED BY: Janel Quispe RDMS June 25, 2025 5:25 PM Normal [facility] CBC W Auto Differential pane l (Bld)on 06-25-2025 Basophils (Bld) [#/Vol] 0.03 10*3/uL Normal <0.11 [facility] Comment on above: Order Comment: Speci men Type: BLOOD SPECIMEN Ordering Facility: [facility] Address: [address] [place] [address] Performed By: #### 2 4323-8, TSHRF, 2275-12, 16849-7 #### [facility] CLIA [id number] [address] [place] [address] [place] Basophils/100 WBC (Bld) 1.0 % Normal [facility] Comment on above: Order Comment: Speci men Type: BLOOD SPECIMEN Ordering Facility: [facility] Address: [address] [place] [address] Performed By: #### 2 4323-8, TSHRF, 2275-12, #### [facility] CLIA [id number] [address] [place] [address] [place] Differential cell count method Nom (Bld) Auto Normal [facility] Comment on above: Order Comment: Speci men Type: BLOOD SPECIMEN Ordering Facility: [facility] Address: [address] [place] [address] Performed By: #### 2 4323-8, TSHRF, 2275-12, 62336-0 #### [facility] CLIA [id number] [address] [place] [address] [place] Eosinophils (Bld) [#/Vol] 0.09 10*3/uL Normal <0.46 [facility] Comment on above: Order Comment: Speci men Type: BLOOD SPECIMEN Ordering Facility: [facility] Address: [address] [place] [address] Performed By: #### 2 4323-8, TSHRF, 2275-12, 29405-2 #### [facility] CLIA [id number] [address] [place] [address] [place] Eosinophils/100 WBC (Bld) 3.1 % Normal [facility] Comment on above: Order Comment: Speci men Type: BLOOD SPECIMEN Ordering Facility: [facility] Address: [address] [place] [address] Performed By: #### 2 4323-8, TSH, 2275-12, 44358-8 #### [facility] CLIA [id number] [address] [place] [address] [place] Erythrocyte distribution width (RBC) [Ratio] 14.9 % Normal 11.5-15.0 [facility] Comment on above: Order Comment: Speci men Type: BLOOD SPECIMEN Ordering Facility: [facility] Address: [address] [place] [address] Performed By: #### 2 4323-8, TSH, 2275-12, #### [facility] CLIA [id number] [address] [place] [address] [place] Hematocrit (Bld) [Volume fraction] 22.9 % Low 39.0-51.0 [facility] Comment on above: Order Comment: Speci men Type: BLOOD SPECIMEN Ordering Facility: [facility] Address: [address] [place] [address] Performed By: #### 2 4323-8, [facility], 2275-12, 46055-1 #### [facility] CLIA [id number] [address] [place] [address] [place] Hemoglobin (Bld) [Mass/Vol] 6.5 g/dL Low 13.0-17.0 [facility] Comment on above: Order Comment: Speci men Type: BLOOD SPECIMEN Ordering Facility: [facility] Address: [address] [place] [address] Performed By: #### 2 4323-8, TSHRF, 2275-12, 61252-8 #### [facility] CLIA [id number] [address] [place] [address] [place] Immature granulocytes (Bld) [#/Vol] 10*3/uL Normal <0.10 [facility] Comment on above: Order Comment: Speci men Type: BLOOD SPECIMEN Ordering Facility: [facility] Address: [facility] [place] [address] Performed By: #### 2 4323-8, TSHRF, 2275-12, #### [facility] CLIA [id number] [address] [place] Immature granulocytes/100 WBC (Bld) 0.3 % Normal [facility] Comment on above: Order Comment: Speci men Type: BLOOD SPECIMEN Ordering Facility: [facility] Address: [address] [place] [address] Performed By: #### 2 4323-8, TSH, 2275-12, #### [facility] CLIA [id number] [address] STATES [place] Lymphocytes (Bld) [#/Vol] 0.33 10*3/uL Low 1.00-4.00 [facility] Comment on above: Order Comment: Speci men Type: BLOOD SPECIMEN Ordering Facility: [facility] Address: [address] [place] [address] Performed By: #### 2 4323-8, TSH, 2275-12, #### [facility] CLIA [id number] [address] STATES OF [facility] Lymphocytes/100 WBC (Bld) 11.2 % Normal [facility] Comment on above: Order Comment: Speci men Type: BLOOD SPECIMEN Ordering Facility: [facility] Address: [address] [place] [address] Performed By: #### 2 4323-8, TSH, 2275-12, #### [facility] CLIA [id number] [address] [place] [address] [place] MCH (RBC) [Entitic mass] 23.7 pg Low 26.0-34.0 [facility] Comment on above: Order Comment: Speci men Type: BLOOD SPECIMEN Ordering Facility: [facility] Address: [address] [place] [address] Performed By: #### 2 4323-8, TSHRF, 2275-, #### [facility] CLIA [id number] [address] STATES [facility] MCHC (RBC) [Mass/Vol] 28.4 g/dL Low 30.5-36.0 [facility] Comment on above: Order Comment: Speci men Type: BLOOD SPECIMEN Ordering Facility: [facility] Address: [address] [place] [address] Performed By: #### 2 4323-8, TSHRF, 2275-12, #### [facility] CLIA [id number] [address] STATES [place] MCV (RBC) [Entitic vol] 83.6 fL Normal 80.0-100.0 [facility] Comment on above: Order Comment: Speci men Type: BLOOD SPECIMEN Ordering Facility: [facility] Address: [address] [place] [address] Performed By: #### 2 4323-8, TSH, 2275-12, #### [facility] CLIA [id number] [address] [place] Monocytes (Bld) [#/Vol] 0.23 10*3/uL Normal <0.87 [facility] Comment on above: Order Comment: Speci men Type: BLOOD SPECIMEN Ordering Facility: [facility] Address: [address] [place] [address] Performed By: #### 2 4323-8, [facility], 2275-12, #### [facility] CLIA [id number] [address] Monocytes/100 WBC (Bld) 7.8 % Normal [facility] Comment on above: Order Comment: Speci men Type: BLOOD SPECIMEN Ordering Facility: [facility] Address: [address] [place] [address] Performed By: #### 2 4323-8, TSH, 2275-12, #### [facility] CLIA [id number] [address] [place] [address] [place] Neutrophils (Bld) [#/Vol] 2.25 10*3/uL Normal 1.45-7.50 [facility] Comment on above: Order Comment: Speci men Type: BLOOD SPECIMEN Ordering Facility: [facility] Address: [address] [place] [address] Performed By: #### 2 4323-8, TSHRF, 2275-4, 16379-6 #### [facility] CLIA [id number] [address] [place] [address] [place] Neutrophils/100 WBC (Bld) 76.6 % Normal [facility] Comment on above: Order Comment: Speci men Type: BLOOD SPECIMEN Ordering Facility: [facility] Address: [address] [place] [address] Performed By: #### 2 4323-8, TSHRF, 2275-12, 11853-5 #### [facility] CLIA [id number] [address] [place] [address] [place] Nucleated RBC (Bld) [#/Vol] 10*3/uL Normal <0.01 [facility] Comment on above: Order Comment: Speci men Type: BLOOD SPECIMEN Ordering Facility: [facility] Address: [address] [place] [address] Performed By: #### 2 4323-8, TSH, 2275-12, 32583-2 #### [facility] CLIA [id number] [address] [place] Nucleated RBC/100 WBC (Bld) [Ratio] 0.0 /100 WBC Normal [facility] Comment on above: Order Comment: Speci men Type: BLOOD SPECIMEN Ordering Facility: [facility] Address: [address] [place] [address] Performed By: #### 2 4323-8, TSHRF, 2275-12, 19994-6 #### [facility] CLIA [id number] [address] [place] Platelet mean volume (Bld) [Entitic vol] 10.5 fL Normal 9.0-12.7 [facility] Comment on above: Order Comment: Speci men Type: BLOOD SPECIMEN Ordering Facility: [facility] Address: [address] [place] [address] Performed By: #### 2 4323-8, TSHRF, 6-4, 00447-7 #### [facility] CLIA [id number] [address] [place], [place] [address] [place] [address] [place] Platelets (Bld) [#/Vol] 71 10*3/uL Low 150-400 [facility] Comment on above: Order Comment: Speci men Type: BLOOD SPECIMEN Ordering [facility] Address: [address] [place] [address] Performed By: #### 2 4323-8, TSHRF, 6-4, 74944-7 #### [facility] CLIA [id number] [address] [place] RBC (Bld) [#/Vol] 2.74 10*6/uL Low 4.20-6.00 [facility] Comment on above: Order Comment: Speci men Type: BLOOD SPECIMEN Ordering Facility[facility] Address: [address] [place] [address] Performed By: #### 2 4323-8, TSHRF, 2275-4, 84086-8 #### [facility] CLIA [id number] [address] [place] WBC (Bld) [#/Vol] 2.94 10*3/uL Low 3.70-11.00 [facility] Comment on above: Order Comment: Speci men Type: BLOOD SPECIMEN Ordering Facility: [facility] Address: [address] [place] [address] Performed By: #### 2 4323-8, TSHRF, 6-4, 46636-3 #### [facility] CLIA [id number] [address] [place] [id number] [place] Basophils (Bld) [#/Vol] 0.03 10*3/uL Normal <0.11 [facility] Comment on above: Order Comment: Speci men Type: BLOOD SPECIMENOrdering Facility: [facility] Address: [address] [place] [address] Performed By: #### 5 7021-8 ####[facility] MILLKERRYWNCLIA [id number] [place] [address] [place] Basophils/100 WBC (Bld) 0.9 % Normal [facility] Comment on above: Order Comment: Speci men Type: BLOOD SPECIMENOrdering Facility: [facility] Address: [address] [place] [address] Performed By: #### 5 7021-8 ####[facility] NEVAEHWNCLIA [id number] [place] [address] [place] Differential cell count method Nom (Bld) Auto Normal [facility] Comment on above: Order Comment: Speci men Type: BLOOD SPECIMENOrdering Facility: [facility] Address: [address] [place] [address] Performed By: #### 5 7021-8 ####[facility] NEVAEHTreasureVIVIANALIA [id number] [place] [address] [place] Eosinophils (Bld) [#/Vol] 0.12 10*3/uL Normal <0.46 [facility] Comment on above: Order Comment: Speci men Type: BLOOD SPECIMENOrdering Facility: [facility] Address: [address] [place] [address] Performed By: #### 5 7021-8 ####[facility] NEVAEHLISBETLIA [id number] [place] [address] [place] Eosinophils/100 WBC (Bld) 3.8 % Normal [facility] Comment on above: Order Comment: Speci men Type: BLOOD SPECIMENOrdering Facility: [facility] Address: [address] [place] [address] Performed By: #### 5 7021-8 ####[facility] NEVAEHMANASSASNCLIA [id number] [place] [address] [place] Erythrocyte distribution width (RBC) [Ratio] 14.9 % Normal 11.5-15.0 [facility] Comment on above: Order Comment: Speci men Type: BLOOD SPECIMENOrdering Facility: [facility] Address: [address] [place] [address] Performed By: #### 5 7021-8 ####[facility] NEVAEHMANASSASNCLIA [id number] [place] [address] [place] Hematocrit (Bld) [Volume fraction] 22.9 % Low 39.0-51.0 [facility] Comment on above: Order Comment: Speci men Type: BLOOD SPECIMENOrdering Facility: [facility] Address: [address] [place] [address] Performed By: #### 5 7021-8 ####[facility]CL[facility] [id number] [place] [address] [place] Hemoglobin (Bld) [Mass/Vol] 6.8 g/dL Low 13.0-17.0 [facility] Comment on above: Order Comment: Speci men Type: BLOOD SPECIMENOrdering Facility: [facility] Address: [address] [place] [address] Performed By: #### 5 7021-8 ####[facility]ITALNCLIA [id number] [place] [address] [place] Immature granulocytes (Bld) [#/Vol] 10*3/uL Normal <0.10 [facility] Comment on above: Order Comment: Speci men Type: BLOOD SPECIMENOrdering Facility: [facility] Address: [address] [place] [address] Performed By: #### 5 7021-8 ####[facility]ITALNCLIA [id number] [place] [address] [place] Immature granulocytes/100 WBC (Bld) 0.6 % Normal [facility] Comment on above: Order Comment: Speci men Type: BLOOD SPECIMENOrdering Facility: [facility] Address: [address] [place] [address] Performed By: #### 5 7021-8 ####[facility] MILLWNCLIA [id number] [place] [address] [place] Lymphocytes (Bld) [#/Vol] 0.68 10*3/uL Low 1.00-4.00 [facility] Comment on above: Order Comment: Speci men Type: BLOOD SPECIMENOrdering Facility: [facility] Address: [address] [place] [address] Performed By: #### 5 7021-8 ####[facility] CAMPUSLIA [id number] [place] [address] [place] Lymphocytes/100 WBC (Bld) 21.5 % Normal [facility] Comment on above: Order Comment: Speci men Type: BLOOD SPECIMENOrdering Facility: [facility] Address: [address] [place] [address] Performed By: #### 5 7021-8 ####[facility] CAMPUSLIA [id number] [place] [address] [place] MCH (RBC) [Entitic mass] 23.7 pg Low 26.0-34.0 [facility] Comment on above: Order Comment: Speci men Type: BLOOD SPECIMENOrdering Facility: [facility] Address: [address] [place] [address] Performed By: #### 5 7021-8 ####[facility]AMPUSLIA [id number] [place] [address] [place] MCHC (RBC) [Mass/Vol] 29.7 g/dL Low 30.5-36.0 [facility] Comment on above: Order Comment: Speci men Type: BLOOD SPECIMENOrdering Facility: [facility] Address: [address] [place] [address] Performed By: #### 5 7021-8 ####[facility] [id number] [place] [address] [place] MCV (RBC) [Entitic vol] 79.8 fL Low 80.0-100.0 [facility] Comment on above: Order Comment: Speci men Type: BLOOD SPECIMENOrdering Facility: [facility] Address: [address] [place] [address] Performed By: #### 5 7021-8 ####[facility] [id number] [place] [address] [place] Monocytes (Bld) [#/Vol] 0.26 10*3/uL Normal <0.87 [facility] Comment on above: Order Comment: Speci men Type: BLOOD SPECIMENOrdering Facility: [facility] Address: [address] [place] [address] Performed By: #### 5 7021-8 ####[facility] [id number] [place] [address] [place] Monocytes/100 WBC (Bld) 8.2 % Normal [facility] Comment on above: Order Comment: Speci men Type: BLOOD SPECIMENOrdering Facility: [facility] Address: [address] [place] [address] Performed By: #### 5 7021-8 ####[facility] [id number] [place] [address] [place] Neutrophils (Bld) [#/Vol] 2.06 10*3/uL Normal 1.45-7.50 [facility] Comment on above: Order Comment: Speci men Type: BLOOD SPECIMENOrdering Facility: [facility] Address: [address] [place] [address] Performed By: #### 5 7021-8 ####[facility] [id number] [place] [address] [place] Neutrophils/100 WBC (Bld) 65.0 % Normal [facility] Comment on above: Order Comment: Speci men Type: BLOOD SPECIMENOrdering Facility: [facility] Address: [address] [place] [address] Performed By: #### 5 7021-8 ####[facility]ITALNCYOLA [id number] [place] [address] [place] Nucleated RBC (Bld) [#/Vol] 10*3/uL Normal <0.01 [facility] Comment on above: Order Comment: Speci men Type: BLOOD SPECIMENOrdering Facility: [facility] Address: [address] [place] [address] Performed By: #### 5 7021-8 ####[facility] [id number] [place] [address] [place] Nucleated RBC/100 WBC (Bld) [Ratio] 0.0 /100 WBC Normal [facility] Comment on above: Order Comment: Speci men Type: BLOOD SPECIMENOrdering Facility: [facility] Address: [address] [place] [address] Performed By: #### 5 7021-8 ####[facility] [id number] [place] [address] [place] Platelet mean volume (Bld) [Entitic vol] 12.8 fL High 9.0-12.7 [facility] Comment on above: Order Comment: Speci men Type: BLOOD SPECIMENOrdering Facility: [facility] Address: [address] [place] [address] Performed By: #### 5 7021-8 ####[facility]AMPUSLIA [id number] [place] [address] [place] Platelets (Bld) [#/Vol] 78 10*3/uL Low 150-400 [facility] Comment on above: Order Comment: Speci men Type: BLOOD SPECIMENOrdering Facility: [facility] Address: [address] [place] [address] Result Comment: No c lot detected. Performed By: #### 5 7021-8 ####[facility]A [id number] [place] [address] [place] RBC (Bld) [#/Vol] 2.87 10*6/uL Low 4.20-6.00 [facility] Comment on above: Order Comment: Speci men Type: BLOOD SPECIMENOrdering Facility: [facility] Address: [address] [place] [address] Performed By: #### 5 7021-8 ####[facility] [id number] [place] [address] [place] WBC (Bld) [#/Vol] 3.17 10*3/uL Low 3.70-11.00 [facility] Comment on above: Order Comment: Speci men Type: BLOOD SPECIMENOrdering Facility: [facility] Address: [address] [place] [address] Performed By: #### 5 7021-8 ####[facility] [id number] [place] [address] [place] CBC panel Auto (Bld)on 06-25 Erythrocyte distribution width (RBC) [Ratio] 15.1 % High 11.5-15.0 [facility] Comment on above: Order Comment: Speci men Type: BLOOD SPECIMEN [facility] Address: [address] [place] [address] Performed By: #### 2 4323-8, [facility], 2276-4, 59635-7 #### [facility] CLIA [id number] [address] [place] [address] [place] Hematocrit (Bld) [Volume fraction] 22.8 % Low 39.0-51.0 [facility] Comment on above: Order Comment: Speci men Type: BLOOD SPECIMEN [facility] Address: [address] [place] [address] Performed By: #### 2 4323-8, TSHRF, 2275-, #### [facility] CLIA [id number] [address] STATES OF [facility] Hemoglobin (Bld) [Mass/Vol] 6.9 g/dL Low 13.0-17.0 [facility] Comment on above: Order Comment: Speci men Type: BLOOD SPECIMEN [facility] Address: [address] [place] [address] Performed By: #### 2 4323-8, TSHRF, 2275-12, #### [facility] CLIA [id number] [address] STATES OF [facility] MCH (RBC) [Entitic mass] 25.1 pg Low 26.0-34.0 [facility] Comment on above: Order Comment: Speci men Type: BLOOD SPECIMEN [facility] Address: [address] [place] [address] Performed By: #### 2 4323-8, TSH, 2275-12, #### [facility] CLIA [id number] [address] STATES [facility] MCHC (RBC) [Mass/Vol] 30.3 g/dL Low 30.5-36.0 [facility] Comment on above: Order Comment: Speci men Type: BLOOD SPECIMEN [facility] Address: [address] [place] [address] Performed By: #### 2 4323-8, TSH, 2275-12, 88569-3 #### [facility] CLIA [id number] [address] MCV (RBC) [Entitic vol] 82.9 fL Normal 80.0-100.0 [facility] Comment on above: Order Comment: Speci men Type: BLOOD SPECIMEN [facility] Address: [address] [place] [address] Performed By: #### 2 4323-8, TSHRF, 2275-12, 08884-2 #### [facility] CLIA [id number] [address] [place] [address] [place] Nucleated RBC (Bld) [#/Vol] 10*3/uL Normal <0.01 [facility] Comment on above: Order Comment: Speci men Type: BLOOD SPECIMEN [facility] Address: [address] [place] [address] Performed By: #### 2 4323-8, TSHRF, 6-4, 96477-0 #### [facility] CLIA [id number] [address] [place] [address] [place] Platelet mean volume (Bld) [Entitic vol] 11.7 fL Normal 9.0-12.7 [facility] Comment on above: Order Comment: Speci men Type: BLOOD SPECIMEN [facility] Address: [address] [place] [address] Performed By: #### 2 4323-8, TSHRF, 2275-4, 47047-1 #### [facility] CLIA [id number] [address] [place] [address] [place] Platelets (Bld) [#/Vol] 69 10*3/uL Low 150-400 [facility] Comment on above: Order Comment: Speci men Type: BLOOD SPECIMEN [facility] Address: [address] [place] [address] Result Comment: No c lot detected. Performed By: #### 2 4323-8, TSHRF, 2275-4, 04942-1 #### [facility] CLIA [id number] [address] [place] [address] [place] RBC (Bld) [#/Vol] 2.75 10*6/uL Low 4.20-6.00 [facility] Comment on above: Order Comment: Speci men Type: BLOOD SPECIMEN [facility] Address: [address] [place] [address] Performed By: #### 2 4323-8, TSHRF, 6-4, 91390-2 #### [facility] CLIA [id number] [address] [place] [address] [place] WBC (Bld) [#/Vol] 2.87 10*3/uL Low 3.70-11.00 [facility] Comment on above: Order Comment: Speci men Type: BLOOD SPECIMEN [facility] Address: [address] [place] [address] Performed By: #### 2 4323-8, TSHRF, 2275-, 73335-1 #### [facility] CLIA [id number] [address] [place] Erythrocyte distribution width (RBC) [Ratio] 15.2 % High 11.5-15.0 [facility] Comment on above: Order Comment: Speci men Type: BLOOD SPECIMEN [facility] Address: [address] [place] [address] Performed By: #### 2 4323-8, TSHRF, 2275-12, 73282-3 #### [facility] CLIA [id number] [address] STATES OF [facility] Hematocrit (Bld) [Volume fraction] 22.8 % Low 39.0-51.0 [facility] Comment on above: Order Comment: Speci men Type: BLOOD SPECIMEN [facility] Address: [address] [place] [address] Performed By: #### 2 4323-8, TSH, 2275-12, 59019-8 #### [facility] CLIA [id number] [address] [place] Hemoglobin (Bld) [Mass/Vol] 6.8 g/dL Low 13.0-17.0 [facility] Comment on above: Order Comment: Speci men Type: BLOOD SPECIMEN [facility] Address: [address] [place] [address] Performed By: #### 2 4323-8, TSH, 2275-12, 37043-1 #### [facility] CLIA [id number] [address] MCH (RBC) [Entitic mass] 24.8 pg Low 26.0-34.0 [facility] Comment on above: Order Comment: Speci men Type: BLOOD SPECIMEN [facility] Address: [address] [place] [address] Performed By: #### 2 4323-8, TSHRF, 2275-4, 17616-5 #### [facility] CLIA [id number] [address] MCHC (RBC) [Mass/Vol] 29.8 g/dL Low 30.5-36.0 [facility] Comment on above: Order Comment: Speci men Type: BLOOD SPECIMEN Ordering Facility: [facility] Address: [address] [place] [address] Performed By: #### 2 4323-8, TSHRF, 2275-4, 59802-4 #### [facility] CLIA [id number] [address] [place] MCV (RBC) [Entitic vol] 83.2 fL Normal 80.0-100.0 [facility] Comment on above: Order Comment: Speci men Type: BLOOD SPECIMEN Ordering Facility: [facility] Address: [address] [place] [address] Performed By: #### 2 4323-8, TSHRF, 2275-, 48909-3 #### [facility] CLIA [id number] [address] [place] [facility] Nucleated RBC (Bld) [#/Vol] 10*3/uL Normal <0.01 [facility] Comment on above: Order Comment: Speci men Type: BLOOD SPECIMEN Ordering Facility: [facility] Address: [address] [place] [address] Performed By: #### 2 4323-8, TSHRF, 2275-, 87562-5 #### [facility] CLIA [id number] [address] Platelet mean volume (Bld) [Entitic vol] 11.1 fL Normal 9.0-12.7 [facility] Comment on above: Order Comment: Speci men Type: BLOOD SPECIMEN Ordering Facility: [facility] Address: [address] [place] [address] Performed By: #### 2 4323-8, TSHRF, 2275-, 33154-9 #### [facility] CLIA [id number] [address] [place] [address] [place] Platelets (Bld) [#/Vol] 74 10*3/uL Low 150-400 [facility] Comment on above: Order Comment: Speci men Type: BLOOD SPECIMEN Ordering Facility: [facility] Address: [address] [place] [address] Result Comment: No c lot detected. Performed By: #### 2 4323-8, TSH, 6-4, 41002-7 #### [facility] CLIA [id number] [address] [place] [address] [place] RBC (Bld) [#/Vol] 2.74 10*6/uL Low 4.20-6.00 [facility] Comment on above: Order Comment: Speci men Type: BLOOD SPECIMEN Ordering Facility: [facility] Address: [address] [place] [address] Performed By: #### 2 4323-8, [facility], 6-4, 08259-1 #### [facility] CLIA [id number] [address] [place] [address] [place] WBC (Bld) [#/Vol] 3.05 10*3/uL Low 3.70-11.00 [facility] Comment on above: Order Comment: Speci men Type: BLOOD SPECIMEN Ordering Facility: [facility] Address: [address] [place] [address] Performed By: #### 2 4323-8, [facility], 2276-4, 39862-3 #### [facility] CLIA [id number] [address] [place] [id number] [facility] CONSULTon 06-25-2025 CONSULT HNO ID: [id number] Author: YURIDIA JAMES MD Service: Gastroenterology Author Type: Physician Type: Consults Filed: 06/25/2025 16:35 Note Text: INITIAL CONSULT GASTROENTEROLOGY SERVICE DATE: 06/25/2025 SERVICE TIME: 0445 PM Consulting Service: Gastroenterology Chief Complaint: low Hgb on outpatient blood work for fatigue and shortness of breath Opinion/advice regarding: symptomatic anemia Subjective HPI: This is a 75 year old male with CAD with implanted defibrillator, a fib on Eliquis, B[place]ON on CPAP, chronic pain on meloxicam, heart failure with preserved EF, type 2 DM, HTN, HLD, psoriatic arthritis, who presents to ER 06/25 after found to have worsening of his chronic anemia on outpatient blood work to work up worsening fatigue and shortness of breath. Patient states 1 month ago was having daily black, tarry stools. Was taking daily meloxicam and prn ibuprofen for breakthrough pain 2-3 times a week. He down-titrated his eliquis when this happened and the melena resolved. Daily, formed brown stool for 1 month now. Denies any abdominal pain. Continues to take prn NSAIDs for pain. Labs: WBC 3.17 (3 months ago 6.3) Hgb 6.8 (3 months ago 11.2) Plts 78 (3 months ago 92) INR 1.2 Lipase BUN 10 T bili 0.4 Ast/alt 07/17 Ferritin 27 TSH 2.050 Imagin11/2023 ultrasound--Findings suggestive of chronic liver disease/cirrhosis. No focal hepatic lesion. Splenomegaly. 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 Diabetes mellitus (HCC) Diarrhea Dual implantable cardioverter-defibrillator in situ Dyslipidemia Esophageal reflux Ex-smoker History of transfusion Hypothyroidism 11/21/2022 Mononeuritis of unspecified site Obesity, unspecified Other chronic nonalcoholic liver disease Personal history of colonic polyps 03/20/2005 hyperplastic polyps Unspecified essential hypertension PAST SURGICAL HISTORY Procedure Laterality Date BSCAN OS (LEFT EYE) Left CARDIOVERSION 04/30/2023 COLONOSCOPY FLX DX W/COLLJ SPEC WHEN PFRMD 03/20/2005 Colonoscopy COLONOSCOPY FLX DX W/COLLJ SPEC WHEN PFRMD 06/15/2015 Colonoscopy [facility] out pt ENDOSCOPY PROC 08/2018 ESOPHAGOGASTRODUODENOSCOPY TRANSORAL DIAGNOSTIC 06/15/2015 EGD [facility] out pt EXCISION PILONIDAL CYST/SINUS SIMPLE 01/19/2003 Excision pilonidal cyst PACEMAKER SURGERY 03/11/2012 pacer/defib PACEMAKER SURGERY 09/17/2018 PAST SURGICAL HISTORY OF 09/16/2012 eye surgery, s/p Plaque OS PRO SMART PILL CAPSULE PROC ([id number]) 10/15/2018 REMOVAL GALLBLADDER 06/10/2021 REMOVE PACEMAKER SYSTEM 09/17/2018 replaced it all RPR UMBILICAL HERNIA < 5 YRS REDUCIBLE 02/17/1999 Hernia repair, umbilical FAMILY HISTORY Problem Relation Age of Onset Heart Mother of CHF at 91 Stroke Mother Hypertension Mother other (Other) Father at 87 of a brain aneurysm Hypertension Brother Stroke Brother Heart Brother Goiter Maternal Grandmother Aneurysm Maternal Grandfather brain No Ocular Disease Other Colon Cancer No Family History SOCIAL HISTORY[1] MEDICATIONS: Prior to Admission Medications: allopurinol (ZYLOPRIM) 100 mg tabletTake 2 tablets by mouth once daily.Disp: 180 tabletRfl: 3 metoprolol tartrate, short acting, (LOPRESSOR) 100 mg tabletTake 1 tablet by mouth two times a day.Disp: 180 tabletRfl: 3 ipratropium 20 mcg-albuterol 100 mcg (COMBIVENT RESPIMAT) 20-100 mcg/actuation inhalerInhale 1 puff as instructed four times daily.Disp: 4 gRfl: 1 lisinopril (ZESTRIL) 40 mg tabletTake 1 tablet by mouth once daily.Disp: 90 tabletRfl: 3 lovastatin (MEVACOR) 20 mg tabletTake 2 tablets by mouth every other day.Disp: 90 tabletRfl: 3 torsemide (DEMADEX) 20 mg tabletTake 1 tablet by mouth once daily for 14 days.Disp: 14 tabletRfl: 0 amLODIPine (NORVASC) 5 mg tabletTake 1 tablet by mouth once daily.Disp: 90 tabletRfl: 3 levothyroxine (SYNTHROID) 50 mcg tabletTAKE 1 TABLET BY MOUTH ONCE DAILY ON AN EMPTY STOMACH FOR THYROIDDisp: 90 tabletRfl: [address] (CYMBALTA) 60 mg capsuleTake 1 capsule by mouth once daily.Disp: 90 capsuleRfl: 3 ferrous sulfate 325 mg (65 mg iron) tabletTake 1 tablet by mouth every Sunday, Sunday, and Sunday.Disp: 60 tabletRfl: 2 meloxicam (MOBIC) 15 mg tabletTake 1 tablet by mouth once daily. for pain. Take with food.Disp: 30 tabletRfl: 2 magnesium oxide (MAGOX) 400 mg (241.3 mg magnesium) tabletTake 1 tablet by mouth two times a day.Disp: 180 tabletRfl: 3 insulin glargine (LANTUS SOLOSTAR U-100 INSULIN) 100 unit/mL (3 mL)Inject 25 Units subcutaneously daily at bedtime.Disp: 15 mLRfl: 3 ergocalciferol 50,000 unit capsule (VITAMIN D2, DRISDO (more content not included)... Normal [facility] Comprehensive metabolic 2000 panelon 06-25-2025 Albumin [Mass/Vol] 3.2 g/dL Low 3.9-4.9 [facility] Comment on above: Order Comment: Speci men Type: BLOOD SPECIMEN Ordering Facility: [facility] Address: [address] [place] [address] Performed By: #### 2 4323-8, TSH, 2275-4, 66394-2 #### [facility] CLIA [id number] [address] OF [facility] ALP [Catalytic activity/Vol] 128 U/L High 38-113 [facility] Comment on above: Order Comment: Speci men Type: BLOOD SPECIMEN Ordering Facility: [facility] Address: [address] [place] [address] Performed By: #### 2 4323-8, TSHRF, 2275-4, 03923-1 #### [facility] CLIA [id number] [address] [place] ALT [Catalytic activity/Vol] 8 U/L Low 10-54 [facility] Comment on above: Order Comment: Speci men Type: BLOOD SPECIMEN Ordering Facility: [facility] Address: [address] [place] [address] Performed By: #### 2 4323-8, TSH, 6-4, 55663-4 #### [facility] CLIA [id number] [address] Anion gap [Moles/Vol] 11 mmol/L Normal 8-15 [facility] Comment on above: Order Comment: Speci men Type: BLOOD SPECIMEN Ordering Facility: [facility] Address: [address] [place] [address] Performed By: #### 2 4323-8, TSHRF, 2275-4, 84920-3 #### [facility] CLIA [id number] [address] [place] [address] [place] AST [Catalytic activity/Vol] 13 U/L Low 14-40 [facility] Comment on above: Order Comment: Speci men Type: BLOOD SPECIMEN Ordering Facility: [facility] Address: [address] [place] [address] Performed By: #### 2 4323-8, TSHRF, 2275-4, 23446-1 #### [facility] CLIA [id number] [address] [place] [address] [place] Bilirubin [Mass/Vol] 0.4 mg/dL Normal 0.2-1.3 [facility] Comment on above: Order Comment: Speci men Type: BLOOD SPECIMEN Ordering Facility: [facility] Address: [address] [place] [address] Performed By: #### 2 4323-8, TSHRF, 2275-12, 70263-6 #### [facility] CLIA [id number] [address] [place] [address] [place] Calcium [Mass/Vol] 8.2 mg/dL Low 8.5-10.2 [facility] Comment on above: Order Comment: Speci men Type: BLOOD SPECIMEN Ordering Facility: [facility] Address: [address] [place] [address] Performed By: #### 2 4323-8, TSHRF, 2275-12, 36773-6 #### [facility] CLIA [id number] [address] [place] [address] [place] Chloride [Moles/Vol] 105 mmol/L Normal 98-107 [facility] Comment on above: Order Comment: Speci men Type: BLOOD SPECIMEN Ordering Facility: [facility] Address: [address] [place] [address] Performed By: #### 2 4323-8, TSHRF, 4, 04574-9 #### [facility] CLIA [id number] [address] [place] [address] [place] CO2 [Moles/Vol] 20 mmol/L Low 22-30 [facility] Comment on above: Order Comment: Speci men Type: BLOOD SPECIMEN Ordering Facility: [facility] Address: [address] [place] [address] Performed By: #### 2 4323-8, TSHRF, 6-4, 33028-0 #### [facility] CLIA [id number] [address] [place] [address] [place] Creatinine [Mass/Vol] 1.12 mg/dL Normal 0.73-1.22 [facility] Comment on above: Order Comment: Clarita men Type: BLOOD SPECIMEN Ordering Facility: [facility] Address: [address] [place] [address] Performed By: #### 2 4323-8, TSH, 2275-4, 93971-8 #### [facility] CLIA [id number] [address] [place] eGFRcr SerPlBld CKD-EPI 2020 69 mL/min/1.73m??? Normal >=60 [facility] Comment on above: Order Comment: Clarita carrasco Type: BLOOD SPECIMEN Ordering Facility: [facility] Address: [address] [place] [address] Result Comment: Alvina mated Glomerular Filtration Rate (eGFR) is calculated using the 2020 CKD-EPI creatinine equation. This equation utilizes serum creatinine, sex, and age as parameters. The creatinine assay has traceable calibration to isotope dilution-mass spectrometry. Refer to KDIGO guidelines for clinical interpretation. In patients with unstable renal function, e.g. those with acute kidney injury, the eGFR may not accurately reflect actual GFR. Performed By: #### 2 4323-8, TSH, 6-4, 68198-8 #### [facility] CLIA [id number] [address] [place] Glucose [Mass/Vol] 277 mg/dL High 74-99 [facility] Comment on above: Order Comment: Speci men Type: BLOOD SPECIMEN Ordering Facility: [facility] Address: [address] [place] [address] Result Comment: The [place] Diabetes [employer] (ADA) provides guidance for cutoff values for fasting glucose and random glucose. The ADA defines fasting as no caloric intake for at least 8 hours. Fasting plasma glucose results between 100 to 125 mg/dL indicate increased risk for diabetes (prediabetes). Fasting plasma glucose results greater than or equal to 126 mg/dL meet the criteria for diagnosis of diabetes. In the absence of unequivocal hyperglycemia, results should be confirmed by repeat testing. In a patient with classic symptoms of hyperglycemia or hyperglycemic crisis, random plasma glucose results greater than or equal to 200 mg/dL meet the criteria for diagnosis of diabetes. Reference: Standards of Medical Care in Diabetes 2016, [place] [employer] Association. Diabetes Care. 2016.39(Suppl 1). Performed By: #### 2 4323-8, TSHRF, 6-4, 03072-9 #### [facility] CLIA [id number] [address] [place] [address] [place] Potassium [Moles/Vol] 4.3 mmol/L Normal 3.7-5.1 [facility] Comment on above: Order Comment: Clarita carrasco Type: BLOOD SPECIMEN Ordering [facility] Address: [address] [place] [address] Performed By: #### 2 4323-8, TSHRF, 2275-4, 25081-9 #### [facility] CLIA [id number] [address] [place] [address] [place] Protein [Mass/Vol] 6.2 g/dL Low 6.3-8.0 [facility] Comment on above: Order Comment: Clarita carrasco Type: BLOOD SPECIMEN Order[facility] Address: [address] [place] [address] Performed By: #### 2 4323-8, TSHRF, 2275-4, 50525-2 #### [facility] CLIA [id number] [address] [place] [address] [place] Sodium [Moles/Vol] 136 mmol/L Normal 136-144 [facility] Comment on above: Order Comment: Clarita carrasco Type: BLOOD SPECIMEN Ordering Facility[facility] Address: [address] [place] [address] Performed By: #### 2 4323-8, TSHRF, 6-4, 72353-9 #### [facility] CLIA [id number] [address] [place] [address] [place] Urea nitrogen [Mass/Vol] 10 mg/dL Normal 9-24 [facility] Comment on above: Order Comment: Speci men Type: BLOOD SPECIMEN Order[facility] Address: [address] [place] [address] Performed By: #### 2 4323-8, TSHRF, 2276-4, 68472-4 #### [facility] CLIA [id number] [address] [place] [address] [place] Albumin [Mass/Vol] 3.4 g/dL Low 3.9-4.9 [facility] Comment on above: Order Comment: Speci men Type: BLOOD SPECIMENOrdering Facility: [facility] Address: [address] [place] [address] Performed By: #### 2 4323-8 ####[facility] [id number] [place] [address] [place] ALP [Catalytic activity/Vol] 133 U/L High 38-113 [facility] Comment on above: Order Comment: Speci men Type: BLOOD SPECIMENOrdering Facility: [facility] Address: [address] [place] [address] Performed By: #### 2 4323-8 ####[facility] COUNTYWNCLIA [id number] [place] [address] [place] ALT [Catalytic activity/Vol] 7 U/L Low 10-54 [facility] Comment on above: Order Comment: Speci men Type: BLOOD SPECIMENOrdering Facility: [facility] Address: [address] [place] [address] Performed By: #### 2 4323-8 ####[facility] [id number] [place] [address] [place] Anion gap [Moles/Vol] 14 mmol/L Normal 8-15 [facility] Comment on above: Order Comment: Speci men Type: BLOOD SPECIMENOrdering Facility: [facility] Address: [address] [place] [address] Performed By: #### 2 4323-8 ####[facility]ILL[facility]OWNCLIA [id number] [place] [address] [place] AST [Catalytic activity/Vol] 11 U/L Low 14-40 [facility] Comment on above: Order Comment: Speci men Type: BLOOD SPECIMENOrdering Facility: [facility] Address: [address] [place] [address] Performed By: #### 2 4323-8 ####[facility]ILL[facility]OWNCLIA [id number] [place] [address] [place] Bilirubin [Mass/Vol] 0.4 mg/dL Normal 0.2-1.3 [facility] Comment on above: Order Comment: Speci men Type: BLOOD SPECIMENOrdering Facility: [facility] Address: [address] [place] [address] Performed By: #### 2 4323-8 ####[facility] [id number] [place] [address] [place] Calcium [Mass/Vol] 8.5 mg/dL Normal 8.5-10.2 [facility] Comment on above: Order Comment: Speci men Type: BLOOD SPECIMENOrdering Facility: [facility] Address: [address] [place] [address] Performed By: #### 2 4323-8 ####[facility]ILL[facility]OWNCLIA [id number] [place] [address] [place] Chloride [Moles/Vol] 105 mmol/L Normal 98-107 [facility] Comment on above: Order Comment: Speci men Type: BLOOD SPECIMENOrdering Facility: [facility] Address: [address] [place] [address] Performed By: #### 2 4323-8 ####[facility]ILL[facility]OWNCLIA [id number] [place] [address] [place] CO2 [Moles/Vol] 18 mmol/L Low 22-30 [facility] Comment on above: Order Comment: Speci danilo Type: BLOOD SPECIMENOrdering Facility: [facility] Address: [address] [place] [address] Performed By: #### 2 4323-8 ####[facility]Paul [id number] [place] [address] [place] Creatinine [Mass/Vol] 1.12 mg/dL Normal 0.73-1.22 [facility] Comment on above: Order Comment: Speci men Type: BLOOD SPECIMENOrdering Facility: [facility] Address: [address] [place] [address] Performed By: #### 2 4323-8 ####[facility] [id number] [place] [address] [place] eGFRcr SerPlBld CKD-EPI 2020 69 mL/min/1.73m??? Normal >=60 [facility] Comment on above: Order Comment: Speci men Type: BLOOD SPECIMENOrdering Facility: [facility] Address: [address] [place] [address] Result Comment: Alvina mated Glomerular Filtration Rate (eGFR) is calculated using the 2020 CKD-EPI creatinine equation. This equation utilizes serum creatinine, sex, and age as parameters. The creatinine assay has traceable calibration to isotope dilution-mass spectrometry. Refer to KDIGO guidelines for clinical interpretation. In patients with unstable renal function, e.g. those with acute kidney injury, the eGFR may not accurately reflect actual GFR. Performed By: #### 2 4323-8 ####[facility] COUNTYWNCLIA [id number] [place] [address] [place] Glucose [Mass/Vol] 197 mg/dL High 74-99 [facility] Comment on above: Order Comment: Speci men Type: BLOOD SPECIMENOrdering Facility: [facility] Address: [address] [place] [place] [id number] Result Comment: The [place] Diabetes [employer] (ADA) provides guidance for cutoff values for fasting glucose and random glucose. The ADA defines fasting as no caloric intake for at least 8 hours. Fasting plasma glucose results between 100 to 125 mg/dL indicate increased risk for diabetes (prediabetes).Fasting plasma glucose results greater than or equal to 126 mg/dL meet the criteria for diagnosis of diabetes. In the absence of unequivocal hyperglycemia, results should be confirmed by repeat testing. In a patient with classic symptoms of hyperglycemia or hyperglycemic crisis, random plasma glucose results greater than or equal to 200 mg/dL meet the criteria for diagnosis of diabetes.Reference: Standards of Medical Care in Diabetes 2016, [place] [employer]. Diabetes Care. 2016.39(Suppl 1). Performed By: #### 2 4323-8 ####[facility] [id number] [place] [address] [place] Potassium [Moles/Vol] 4.3 mmol/L Normal 3.7-5.1 [facility] Comment on above: Order Comment: Speci men Type: BLOOD SPECIMENOrdering Facility: [facility] Address: [address] [place] [address] Performed By: #### 2 4323-8 ####[facility] [id number] [place] [address] [place] Protein [Mass/Vol] 6.2 g/dL Low 6.3-8.0 [facility] Comment on above: Order Comment: Speci men Type: BLOOD SPECIMENOrdering Facility: [facility] Address: [address] [place] [id number] Performed By: #### 2 4323-8 ####[facility] [id number] [place] [address] [place] Sodium [Moles/Vol] 137 mmol/L Normal 136-144 [facility] Comment on above: Order Comment: Speci men Type: BLOOD SPECIMENOrdering Facility: [facility] Address: [address] [place] [address] Performed By: #### 2 4323-8 ####[facility] TASHAWNCLIA [id number] [address] STATES OF [facility] Urea nitrogen [Mass/Vol] 10 mg/dL Normal 9-24 [facility] Comment on above: Order Comment: Speci men Type: BLOOD SPECIMENOrdering Facility: [facility] Address: [address] [place] [id number] Performed By: #### 2 4323-8 ####[facility] TASHAWNCLIA [id number] [address] [place] ECG COMPLETEon 06-25-2025 ECG COMPLETE Ventricular Rate : 9 1 BPM Atrial Rate : 91 BPM P-R Interval : 206 ms QRS Duration : 86 ms Q-T Interval : 376 ms QTC Calculation(Bazett) : 462 ms Calculated P [place] : 60 degrees Calculated R [place] : 8 degrees Calculated T [place] : 27 degrees SINUS RHYTHM WITH OCCASIONAL PREMATURE VENTRICULAR COMPLEXES NONSPECIFIC ST AND T WAVE ABNORMALITY PROLONGED QT NO SIGNIFICANT CHANGE WAS FOUND From previous EKG 03/10/25 ABNORMAL ECG Confirmed by MD NICHOLAS MICHAEL ([id number]) on 06/25/2025 1:16:43 PM NAME : YAZAN NOLASCO PID : [id number] : 1950 Gender : Male Race : ORD : [id number] Procedure Date : Jun 25 2025 12:54:03 Edit Date : Jun 25 2025 13:16:45 Diagnosis: SINUS RHYTHM WITH OCCASIONAL PREMATURE VENTRICULAR COMPLEXES NONSPECIFIC ST AND T WAVE ABNORMALITY PROLONGED QT NO SIGNIFICANT CHANGE WAS FOUND From previous EKG 03/10/25 ABNORMAL ECG Confirmed by MD NICHOLAS MICHAEL ([id number]) on 06/25/2025 1:16:43 PM Test Reason : Chest Pain Location : 1 : ER 4 Overread By : MD NICHOLAS MICHAEL Edited By : MD NICHOLAS MICHAEL Referred By : , Acquired by : ADRYAN [facility] ED NOTEon 06-25-2025 ED NOTE HNO ID: [id number] Author: DANELLE PEREZ RN Service: Behavioral Health Author Type: Registered Nurse Type: ED Notes Filed: 06/25/2025 14:29 Note Text: admitting dr in room Normal [facility] ED PROV NOTEon 06-25-2025 ED PROV NOTE HNO ID: [id number] Author: ALIYA TSANG PA-C Service: Emergency Medicine Author Type: Physician Carbonator Type: ED Provider Notes Filed: 06/25/2025 14:23 Note Text: ED Provider Note Patient Name: Yazan Nolasco : 1950 SERVICE DATE: 06/25/25 History Patient presents with: Blood Test Abnormality: Patient presents to ED with CC of low hgb on outpatient blood work. Patient has been experiencing increased fatigue and Shortness of Breath. He states that he has needed a blood transfusion in the past but was unsure why. He states he recently cut his eliquis dosing down to 1 dose a day on my own, because of bleeding from a wound that persisted and dark tarry stools. 75-year-old male presents to the ED today for shortness of breath. Patient a history of CAD, he is diabetic, he has hyperlipidemia, patient states that he has been short of breath for the last couple months worse with exertion, denies any chest pain, denies any abdominal pain, about a month ago he had dark tarry stools and some blood in his stool, he is on Eliquis in which she cut down from 2-1 a day and the dark stools and bleeding stopped. Patient had labs drawn this morning for generalized fatigue and shortness of breath and was called and told to come to ER for low hemoglobin. 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 Diabetes mellitus (HCC) Diarrhea Dual implantable cardioverter-defibrillator in situ Dyslipidemia Esophageal reflux Ex-smoker History of transfusion Hypothyroidism 11/21/2022 Mononeuritis of unspecified site Obesity, unspecified Other chronic nonalcoholic liver disease Personal history of colonic polyps 03/20/2005 hyperplastic polyps Unspecified essential hypertension PAST SURGICAL HISTORY Procedure Laterality Date BSCAN OS (LEFT EYE) Left CARDIOVERSION 04/30/2023 COLONOSCOPY FLX DX W/COLLJ SPEC WHEN PFRMD 03/20/2005 Colonoscopy COLONOSCOPY FLX DX W/COLLJ SPEC WHEN PFRMD 06/15/2015 Colonoscopy [facility] out pt ENDOSCOPY PROC 08/2018 ESOPHAGOGASTRODUODENOSCOPY TRANSORAL DIAGNOSTIC 06/15/2015 EGD [facility] out pt EXCISION PILONIDAL CYST/SINUS SIMPLE 01/19/2003 Excision pilonidal cyst PACEMAKER SURGERY 03/11/2012 pacer/defib PACEMAKER SURGERY 09/17/2018 PAST SURGICAL HISTORY OF 09/16/2012 eye surgery, s/p Plaque OS PRO SMART PILL CAPSULE PROC ([id number]) 10/15/2018 REMOVAL GALLBLADDER 06/10/2021 REMOVE PACEMAKER SYSTEM 09/17/2018 replaced it all RPR UMBILICAL HERNIA < 5 YRS REDUCIBLE 02/17/1999 Hernia repair, umbilical FAMILY HISTORY Problem Relation Age of Onset Heart Mother of CHF at 91 Stroke Mother Hypertension Mother other (Other) Father at 87 of a brain aneurysm Hypertension Brother Stroke Brother Heart Brother Goiter Maternal Grandmother Aneurysm Maternal Grandfather brain No Ocular Disease Other Colon Cancer No Family History Social History[1] ALLERGIES No Known Allergies Review of Systems Constitutional: Positive for fatigue. Negative for chills and fever. HENT: Negative for trouble swallowing. Eyes: Negative for photophobia and visual disturbance. Respiratory: Positive for shortness of breath. Negative for cough, chest tightness and wheezing. Cardiovascular: Negative for chest pain, palpitations and leg swelling. Gastrointestinal: Negative for abdominal pain, diarrhea, nausea and vomiting. Genitourinary: Negative for dysuria, flank pain and hematuria. Musculoskeletal: Negative for back pain, neck pain and neck stiffness. Skin: Negative for color change. Neurological: Positive for weakness. Negative for numbness and headaches. Psychiatric/Behavioral: Negative for confusion. Physical Exam Vitals [06/25/25 1236] BP Pulse Temp Temp src Resp SpO2 Weight Height 182/84 89 -- Oral 20 99 % 126.1 kg (278 lb) -- Physical Exam Constitutional: Appearance: He is well-developed. HENT: Head: Normocephalic and atraumatic. No raccoon eyes or Hicks's sign. Right Ear: Hearing normal. Left Ear: Hearing normal. Nose: Nose normal. Right Sinus: No maxillary sinus tenderness or frontal sinus tenderness. Left Sinus: No maxillary sinus tenderness or frontal sinus tenderness. Eyes: Conjunctiva/sclera: Conjunctivae normal. Cardiovascular: Rate and Rhythm: Normal rate. Pulmonary: Effort: Pulmonary effort is normal. Abdominal: Palpations: Abdomen is soft. Musculoskeletal: General: Normal range of motion. Cervical back: Normal range of motion and neck supple. Skin: General: Skin is warm and dry. Coloration: Skin is pale. Neurological: General: No focal deficit present. Mental Status: He is alert. Motor: No tremor, atrophy or seizure activity. Gait: Gait normal. Psychiatric: Behavior: Behavior normal. Diagnostic Testing ED Labs Ordered and Re (more content not included)... Normal [facility] Ferritin SerPl-mCncon 2024 Ferritin [Mass/Vol] 27.7 ng/mL Low 30.3-565.7 [facility] Comment on above: Order Comment: Speci men Type: BLOOD SPECIMEN Ordering Facility: [facility] Address: [address] [place] [address] Performed By: #### 2 4323-8, TSHRF, 2276-4, 58444-4 #### [facility] CLIA [id number] [address] [place] [address] [place] Ferritin [Mass/Vol] 26.8 ng/mL Low 30.3-565.7 [facility] Comment on above: Order Comment: Speci men Type: BLOOD SPECIMENOrdering Facility: [facility] Address: [address] [place] [address] Performed By: #### 2 4331-1 ####[facility] LABCLIA [id number] [place] [address] [place] [facility] [id number] [place] [address] [place]#### 2276-4, 3016-3, 59200-9 ####[facility] LABCLIA [id number] [place] [address] [place] Folate SerPl-mCncon 06-25-20 Folate [Mass/Vol] 7.6 ng/mL Normal >4.7 [facility] Comment on above: Order Comment: Speci men Type: BLOOD SPECIMEN [facility] Address: [address] [place] [address] Performed By: #### 2 4323-8, TSHRF, 2276-4, 71708-7 #### [facility] CLIA [id number] [address] [place] [address] [facility] [place] HISTORY PHYSICALon HISTORY PHYSICAL HNO ID: [id number] Author: CHRISSIE ULLOA MD Service: Hospital Medicine Author Type: Physician Type: H&P Filed: 06/25/2025 16:05 Note Text: DEPARTMENT OF HOSPITAL MEDICINE HISTORY AND PHYSICAL EXAM SERVICE DATE: 06/25/2025 SERVICE TIME: 2:18 PM Primary Care Physician: Dee Ashley MD NIGHT AND WEEKEND COVERAGE: [facility] C[facility]AGE: Days: [phone], please page attending physician. Nights: [phone], please page [facility] Night coverage pager [phone]. Subjective CHIEF COMPLAINT: Abnormal labs HPI: Mr. Yazan Nolasco is a 75 y/o M with a PMH of CAD, atrial fibrillation on eliquis, chronic pain on meloxicam presenting to the hospital with abnormal labs. He is on chronic eliquis for atrial fibrillation (last dose this AM). One month ago, he reports decreasing his dose to 5mg daily by himself as he was developing both nose bleeds and black stools. He reports the stools have since cleared up, but over the past month has noticed lightheadedness/dizziness as well as progressive shortness of breath. He has a hx of COPD but denies worsening cough. He denies chest pain currently. He has chronic B12 deficiency and presented to clinic today for an injection, but was directed to the Emergency Room given new anemia. He presented to the ER at [facility] for evaluation. On arrival to the ER, VS significant for BP 182/84, HR 89, SpO2 99%, RR 20. Na 136, K 4.3, CO2 20, Glucose 277. WBC 2.94, Hgb 6.5, PLT 71. INR 1.2. He was ordered 2 units PRBCs. Given pancytopenia and acute anemia, GI, Hematology consulted. 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 Diabetes mellitus (HCC) Diarrhea Dual implantable cardioverter-defibrillator in situ Dyslipidemia Esophageal reflux Ex-smoker History of transfusion Hypothyroidism 11/21/2022 Mononeuritis of unspecified site Obesity, unspecified Other chronic nonalcoholic liver disease Personal history of colonic polyps 03/20/2005 hyperplastic polyps Unspecified essential hypertension PAST SURGICAL HISTORY Procedure Laterality Date BSCAN OS (LEFT EYE) Left CARDIOVERSION 04/30/2023 COLONOSCOPY FLX DX W/COLLJ SPEC WHEN PFRMD 03/20/2005 Colonoscopy COLONOSCOPY FLX DX W/COLLJ SPEC WHEN PFRMD 06/15/2015 Colonoscopy [facility] out pt ENDOSCOPY PROC 08/2018 ESOPHAGOGASTRODUODENOSCOPY TRANSORAL DIAGNOSTIC 06/15/2015 EGD [facility] out pt EXCISION PILONIDAL CYST/SINUS SIMPLE 01/19/2003 Excision pilonidal cyst PACEMAKER SURGERY 03/11/2012 pacer/defib PACEMAKER SURGERY 09/17/2018 PAST SURGICAL HISTORY OF 09/16/2012 eye surgery, s/p Plaque OS PRO SMART PILL CAPSULE PROC ([id number]) 10/15/2018 REMOVAL GALLBLADDER 06/10/2021 REMOVE PACEMAKER SYSTEM 09/17/2018 replaced it all RPR UMBILICAL HERNIA < 5 YRS REDUCIBLE 02/17/1999 Hernia repair, umbilical FAMILY HISTORY Problem Relation Age of Onset Heart Mother of CHF at 91 Stroke Mother Hypertension Mother other (Other) Father at 87 of a brain aneurysm Hypertension Brother Stroke Brother Heart Brother Goiter Maternal Grandmother Aneurysm Maternal Grandfather brain No Ocular Disease Other Colon Cancer No Family History SOCIAL HISTORY[1] PRIOR TO ADMISSION MEDICATIONS: Prior to Admission Medications Prescriptions Last Dose Informant Patient Reported? Taking? Blood Sugar Diagnostic, Drum (ACCU-CHEK COMPACT TEST) strp No No Sig: Test blood sugar(s) 4 times daily. Dx: DM 250 Insulin: Yes DULoxetine DR (CYMBALTA) 60 mg capsule No No Sig: Take 1 capsule by mouth once daily. Lancets (ACCU-CHEK SOFTCLIX LANCETS) Misc lancets No No Sig: three times daily as needed. Dx. 250.00 LILO PEN NEEDLE 32 gauge x 32 ndle No No Sig: USE TWICE DAILY WITH INSULIN DOSE acetaminophen (TYLENOL) 500 mg tablet Yes No Sig: Take 500 mg by mouth as needed. allopurinol (ZYLOPRIM) 100 mg tablet No No Sig: Take 2 tablets by mouth once daily. amLODIPine (NORVASC) 5 mg tablet No No Sig: Take 1 tablet by mouth once daily. apixaban (ELIQUIS) 5 mg tab(s) No No Sig: Take 1 tablet by mouth two times a day. apremilast (OTEZLA) 30 mg tablet No No Sig: Take 1 tablet by mouth twice daily. buPROPion XL (WELLBUTRIN XL) 150 mg 24 hr tablet No No Sig: Take 1 tablet by mouth once daily. clobetasol (TEMOVATE) 0.05 % cream Yes No Sig: APPLY TO THE AFFECTED FLARES ON THE HANDS TWICE DAILY FOR 2 WEEKS THEN TAKE A WEEK OFF BEFORE RESUMING. ergocalciferol 50,000 unit capsule (VITAMIN D2, DRISDOL) No No Sig: Take 1 capsule by mouth two times a week. TO BE TAKEN ORALLY DIRECTED. Take 1 tablet by mouth twice weekly [id number], then decrease to 1 tablet weekly. ferrous sulfate 325 mg (65 mg iron) tablet No No Sig: Take 1 tablet by mouth every Sunday, Sunday, and Sunday. gabapentin (NEURONTIN) 600 mg tablet No No Sig: Take 1 tablet by mouth daily at bedtime. insulin glargine (LANTUS SOLOSTAR U-100 INSULIN) (more content not included)... Normal [facility] Haptoglob SerPl-mCncon 06-25 Haptoglobin [Mass/Vol] 121 mg/dL Normal 31-238 [facility] Comment on above: Order Comment: Clarita carrasco Type: BLOOD SPECIMEN Ordering Facility: [facility] Address: [address] [place] [address] Performed By: #### 2 4323-8, [facility], 2276-4, 50686-9 #### [facility] CLIA [id number] [address] [place] [id number] [place] HbA1c (Bld)on 06-25-2025 Average glucose Estimated from glycated hemoglobin (Bld) [Mass/Vol] 180 mg/dL Normal [facility] Comment on above: Order Comment: Clarita carrasco Type: BLOOD SPECIMENOrdering Facility: [facility] Address: [address] [place] [address] Result Comment: eAG: (Estimated average glucose) is a calculated value from HgbA1c and is manufacturers representative of the average blood glucose level in the last 2-3 month period. Performed By: #### 5 5454-3 ####[facility] LABCLIA [id number] [place] [address] [place] HbA1c (Bld) [Mass fraction] 7.9 % High 4.3-5.6 [facility] Comment on above: Order Comment: Clarita carrasco Type: BLOOD SPECIMENOrdering Facility: [facility] Address: [address] [place] [address] Result Comment: Amer ican Diabetes Association guidelines indicate that patients with HgbA1c in the range 5.7-6.4% are at increased risk for development of diabetes, and intervention by lifestyle modification may be beneficial. HgbA1c greater or equal to 6.5% is considered diagnostic of diabetes. Performed By: #### 5 5454-3 ####[facility] LABCLIA [id number] [place] [address] [place] Iron and Iron binding capaci ty panelon 06-25-2025 Iron [Mass/Vol] 21 ug/dL Low 41-186 [facility] Comment on above: Order Comment: Hui men Type: BLOOD SPECIMEN [facility] Address: [address] [place] [address] Performed By: #### 2 4323-8, TSH, 6-4, 00258-9 #### [facility] CLIA [id number] [address] [place] Iron binding capacity [Mass/Vol] 306 ug/dL Normal 232-386 [facility] Comment on above: Order Comment: Speci men Type: BLOOD SPECIMEN [facility] Address: [address] [place] [address] Performed By: #### 2 4323-8, TSHRF, 2275-4, 50127-7 #### [facility] CLIA [id number] [address] [place] Iron/TIBC [Molar ratio] 6.9 % Low 15.0-57.0 [facility] Comment on above: Order Comment: Hui men Type: BLOOD SPECIMEN [facility] Address: [address] [place] [address] Performed By: #### 2 4323-8, TSHRF, 2276-4, 13693-3 #### [facility] CLIA [id number] [address] [place] [address] [place] Iron [Mass/Vol] 24 ug/dL Low 41-186 [facility] Comment on above: Order Comment: Speci men Type: BLOOD SPECIMENOrdering Facility: [facility] Address: [address] [place] [address] Performed By: #### 2 4331-1 ####[facility] LABCLIA [id number] [id number] [place] [address] [place]#### 2276-4, 3016-3, 84732-8 ####[facility] LABCLIA [id number] [place] [address] [place] Iron binding capacity [Mass/Vol] 329 ug/dL Normal 232-386 [facility] Comment on above: Order Comment: Speci men Type: BLOOD SPECIMENOrdering Facility: [facility] Address: [address] [place] [address] Performed By: #### 2 4331-1 ####[facility] LABCLIA [id number] [address] [id number] [place] [address] [place]#### 2276-4, 3016-3, 72659-8 ####[facility] LABCLIA [id number] [place] [id number] [place] Iron/TIBC [Molar ratio] 7.3 % Low 15.0-57.0 [facility] Comment on above: Order Comment: Speci men Type: BLOOD SPECIMENOrdering Facility: [facility] Address: [address] [place] [address] Performed By: #### 2 4331-1 ####[facility] LABCLIA [id number] [address] [id number] [place] [address] [place]#### 2276-4, 3016-3, 42657-8 ####[facility] LABCLIA [id number] [place] [address] [place] Lipid 1996 panelon 5 Cholesterol [Mass/Vol] 70 mg/dL Normal <200 [facility] Comment on above: Order Comment: Speci men Type: BLOOD SPECIMENOrdering Facility: [facility] Address: [address] [place] [address] Result Comment: <200 mg/dL, Desirable 200-239 mg/dL, Borderline high>239 mg/dL, High Performed By: #### 2 4331-1 ####[facility] LABCLIA [id number] [address] [id number] [place] [address] [place]#### 2276-4, 3016-3, 31598-0 ####[facility] LABCLIA [id number] [address] [place] Cholesterol in HDL [Mass/Vol] 27 mg/dL Low >39 [facility] Comment on above: Order Comment: Speci men Type: BLOOD SPECIMENOrdering Facility: [facility] Address: [facility] [place] [address] Result Comment: 40-5 9 mg/dL, Acceptable>59 mg/dL, High: Negative risk factor for coronary heart disease<40 mg/dL, Low: Positive risk factor for coronary heart disease Performed By: #### 2 4331-1 ####[facility] LABCLIA [id number] [address] [id number] [address]#### 2276-4, 3016-3, 10023-9 ####[facility] LABIA [id number] [address] Cholesterol in LDL [Mass/Vol] 23 mg/dL Normal <100 [facility] Comment on above: Order Comment: Speci men Type: BLOOD SPECIMENOrdering Facility: [facility] Address: [address] [place] [address] Result Comment: <100 mg/dL, Optimal 100-129 mg/dL, Near optimal/above optimal 130-159 mg/dL, Borderline high 160-189 mg/dL, High>189 mg/dL, Very highSecondary prevention optimal LDL Cholesterol levels are recommended to be <70 mg/dLLDL cholesterol is calculated using the Lopez-NIH equation. Performed By: #### 2 4331-1 ####[facility] LABCLIA [id number] [address] [id number] [address]#### 2276-4, 3016-3, 08434-0 ####[facility] LABIA [id number] [address] Cholesterol in LDL/Cholesterol in HDL [Mass ratio] 0.85 {ratio} Normal <2.54 [facility] Comment on above: Order Comment: Speci men Type: BLOOD SPECIMENOrdering Facility: [facility] Address: [address] [place] [address] Result Comment: Reftigre aguilar:1. National Cholesterol Education Program ATP III Guideline At-A-Glance Quick Desk Reference: National Heart, Lung, and Blood Cameron. National Institutes of Health. 2001: NIH Publication No. 01-3305.2. An International Atherosclerosis Society position paper: global recommendations for the management of dyslipidemia: executive summary, Atherosclerosis. 2014: 232(2):410-413. Performed By: #### 2 4331-1 ####[facility] LABCLIA [id number] [place] [address] [facility] [id number] [place] [address] [place]#### 2276-4, 3016-3, 07395-0 ####[facility] LABCLIA [id number] [place] [address] [place] Cholesterol in VLDL [Mass/Vol] 13 mg/dL Normal <30 [facility] Comment on above: Order Comment: Speci men Type: BLOOD SPECIMENOrdering Facility: [facility] Address: [address] [place] [address] Performed By: #### 2 4331-1 ####[facility] LABCLIA [id number] [place] [address] [facility] [id number] [place] [address] [place]#### 2276-4, 3016-3, 96532-5 ####[facility] LABCLIA [id number] [place] [id number] [place] Cholesterol non HDL [Mass/Vol] 43 mg/dL Normal <130 [facility] Comment on above: Order Comment: Speci men Type: BLOOD SPECIMENOrdering Facility: [facility] Address: [address] [place] [address] Result Comment: <130 mg/dL, Optimal 130-159 mg/dL, Near optimal/above optimal 160-189 mg/dL, Borderline high 190-219 mg/dL, High>219 mg/dL, Very highSecondary prevention optimal non HDL Cholesterol levels are recommended to be <100 mg/dL Performed By: #### 2 4331-1 ####[facility] LABCLIA [id number] [place] [address] [facility] [id number] [place] [address] [place]#### 2276-4, 3016-3, 28807-8 ####[facility] LABCLIA [id number] [address] [place] Cholesterol.total/C holesterol in HDL [Mass ratio] 2.59 {ratio} Normal <5.10 [facility] Comment on above: Order Comment: Speci men Type: BLOOD SPECIMENOrdering Facility: [facility] Address: [address] [place] [address] Performed By: #### 2 4331-1 ####[facility] LABCLIA [id number] [address] [id number] [address] [place]#### 2276-4, 3016-3, 78248-3 ####[facility] LABCLIA [id number] [place] [address] [place] FASTING TIME 12 hrs Normal [facility] Comment on above: Order Comment: Speci men Type: BLOOD SPECIMENOrdering Facility: [facility] Address: [address] [place] [address] Performed By: #### 2 4331-1 ####[facility] LABCLIA [id number] [address] [id number] [address] [place]#### 2276-4, 3016-3, 61292-3 ####[facility] LABCLIA [id number] [place] [address] [place] Triglyceride [Mass/Vol] 102 mg/dL Normal <150 [facility] Comment on above: Order Comment: Speci men Type: BLOOD SPECIMENOrdering Facility: [facility] Address: [address] [place] [address] Result Comment: <150 mg/dL, Normal 150-199 mg/dL, Borderline high 200-499 mg/dL, High>499 mg/dL, Very high Performed By: #### 2 4331-1 ####[facility] LABCLIA [id number] [place] [id number] [place] [facility] [id number] [place] [id number] [place]#### 2276-4, 3016-3, 78549-1 ####[facility] LABCLIA [id number] [place] [address] [place] Methylmalonate SerPl-sCncon 06-25-2025 Methylmalonate [Moles/Vol] 0.33 umol/L Normal <=0.40 [facility] Comment on above: Order Comment: Speci men Type: BLOOD SPECIMENOrdering Facility: [facility] Address: [address] [place] [address] Result Comment: This test was developed, and its performance characteristics determined by the [facility] Department of Pathology and Laboratory Medicine. It has not been cleared or approved by the FDA. The [facility] Department of Pathology and Laboratory Medicine is regulated under CLIA as qualified to perform high-complexity testing. This test is used for clinical purposes. It should not be regarded as investigational or for research. Performed By: #### 1 3964-2 ####[facility] LABCLIA [id number] [address] [place] OCCULT BLD EXAM-DIAGon 06-25 OCCULT BLD EXAM-DIAG Positive Abnormal [facility] Comment on above: Performed By: #### 2 4323-8 #### [facility] CLIA [id number] [address] [place], [place] [id number] [place] [address] [place] PT panel Coag (PPP)on 2024 INR Coag (PPP) [Relative time] 1.2 {INR} Normal 0.9-1.3 [facility] Comment on above: Order Comment: Speci men Type: BLOOD SPECIMEN [facility] Address: [address] [place] [address] Result Comment: Melissa min K Antagonist (VKA) Therapeutic Range: INR 2 to 3 (Target INR of 2.5) Note: For patients treated with VKA drugs, such as warfarin, the [employer] 2012 Guideline recommends a therapeutic INR range of 2 to 3 (target INR of 2.5). This recommendation includes high-risk patients with antiphospholipid syndrome with previous arterial or venous thromboembolism, current-generation mechanical or bioprosthetic aortic heart valve replacement. Note: Patients with mechanical aortic valve replacement and additional risk factors for thromboembolic events (atrial fibrillation, previous thromboembolism, LV dysfunction, hypercoagulable conditions) or an older generation mechanical AVR (i.e., ball in-Cage) or any mechanical MVR should have a INR therapeutic range of 2.5 to 3.5 (target INR of 3). Lynnette TY, et al. Chest 2012, 141:7S-47S Anabela RA, et al. [facility] 2017, 70: 252-289 Performed By: #### 2 4323-8, [facility], 2276-4, 73510-5 #### [facility] CLIA [id number] [address] [place] [address] [place] PT Coag (PPP) [Time] 12.2 s Normal 9.7-13.0 [facility] Comment on above: Order Comment: Speci men Type: BLOOD SPECIMEN [facility] Address: [address] [place] [address] Performed By: #### 2 4323-8, [facility], 2276-4, 35469-7 #### [facility] CLIA [id number] [address] [place] TSH SerPl-aCncon 06-25-2025 TSH Qn 2.490 m[IU]/L Normal 0.270-4.200 [facility] Comment on above: Order Comment: Speci men Type: BLOOD SPECIMENOrdering Facility: [facility] Address: [address] [place] [address] Performed By: #### 2 4331-1 ####[facility] LABCLIA [id number] [address] STATES [place] [facility] [id number] [place] [address] [place]#### 2276-4, 3016-3, 88571-1 ####[facility] LABCLIA [id number] [place] [address] [place] TSH W/REFLEX FT4on TSH Qn 2.050 m[IU]/L Normal 0.270-4.200 [facility] Comment on above: Order Comment: Speci men Type: BLOOD SPECIMEN [facility] Address: [address] [place] [place] [id number] Performed By: #### 2 4323-8, TSHRF, 6-4, 71735-9 #### [facility] CLIA [id number] [address] [place] TYPE + SCREENon 06-25-2025 ABO O Normal [facility] Comment on above: Order Comment: Speci men Type: BLOOD SPECIMEN [facility] Address: [address] [place] [id number] Performed By: #### 2 4323-8, TSHRF, 2275-4, 80865-1 #### [facility] CLIA [id number] [address] [place] [address] [place] Rh Nom (Bld) Positive Normal [facility] Comment on above: Order Comment: Speci men Type: BLOOD SPECIMEN [facility] Address: [address] [place] [address] Performed By: #### 2 4323-8, TSHRF, 6-4, 16904-1 #### [facility] CLIA [id number] [address] [place] [address] [place] TYPE AND SCREEN EXPIRATION 06/28/2025 23:59 Normal [facility] Comment on above: Order Comment: Speci men Type: BLOOD SPECIMEN [facility] Address: [address] [place] [address] Performed By: #### 2 4323-8, TSHRF, 6-4, 12421-6 #### [facility] CLIA [id number] [address] [place] [address] [place] US ABD RIGHT UPPER QUADRANTo n 06-25-2025 US ABD RIGHT UPPER QUADRANT * * *Final Report* * * DATE OF EXAM: Jun 25 2025 5:32PM JUDAH 1032 - US ABD RIGHT UPPER QUADRANT / PROCEDURE REASON: Abn liver function tests (LFTs) * * * * Physician Interpretation * * * * EXAMINATION: RIGHT UPPER QUADRANT AND SPLEEN ULTRASOUND CLINICAL HISTORY: Abnormal LFTs. TECHNIQUE: Sonography of the right upper quadrant and spleen was performed. Images were obtained and stored in a permanent archive. MQ: [id number] COMPARISON: 3 04/2024 RESULT: Pancreas: Normal sonographic appearance. Portions obscured: Body and tail. Very limited evaluation. Liver: Echotexture: Coarse Echogenicity: Heterogeneous Surface contour: Nodular Lesions: None. Biliary: No intrahepatic biliary duct dilation. CBD: 0.2 cm at the hilum. Gallbladder: Prior cholecystectomy Right Kidney: No hydronephrosis. Left kidney: 3.9 x 4.1 cm cyst at the upper pole. No hydronephrosis. Ascites: Small volume abdominal ascites. Spleen: The length of the spleen is 23.5 cm, enlarged. There are no splenic lesions. Other: Recanalized umbilical vein. IMPRESSION: 1. Cirrhotic liver morphology. No hepatic lesion. Findings compatible with portal hypertension and collateral vessels. Small amount of ascites. 2. Splenomegaly. 3. 4.1 cm left renal cyst. 4. Status post cholecystectomy. Feed Blender: [facility] Transcribe Date/Time: Jun 25 2025 6:23P Dictated by : ALONDRA SALAZAR MD This examination was interpreted and the report reviewed and electronically signed by: ALONDRA SALAZAR MD on Jun 25 2025 6:30PM EST [id number] [facility] US ABD SPLEEN -NBon 06-25-20 US ABD SPLEEN -NB * * *Final Report* * * DATE OF EXAM: Jun 25 2025 5:32PM [id number] 1232 - US ABD SPLEEN -NB / PROCEDURE REASON: Abn liver function tests (LFTs) * * * * Physician Interpretation * * * * EXAMINATION: RIGHT UPPER QUADRANT AND SPLEEN ULTRASOUND CLINICAL HISTORY: Abnormal LFTs. TECHNIQUE: Sonography of the right upper quadrant and spleen was performed. Images were obtained and stored in a permanent archive. MQ: [id number] COMPARISON: 3 04/2024 RESULT: Pancreas: Normal sonographic appearance. Portions obscured: Body and tail. Very limited evaluation. Liver: Echotexture: Coarse Echogenicity: Heterogeneous Surface contour: Nodular Lesions: None. Biliary: No intrahepatic biliary duct dilation. CBD: 0.2 cm at the hilum. Gallbladder: Prior cholecystectomy Right Kidney: No hydronephrosis. Left kidney: 3.9 x 4.1 cm cyst at the upper pole. No hydronephrosis. Ascites: Small volume abdominal ascites. Spleen: The length of the spleen is 23.5 cm, enlarged. There are no splenic lesions. Other: Recanalized umbilical vein. IMPRESSION: 1. Cirrhotic liver morphology. No hepatic lesion. Findings compatible with portal hypertension and collateral vessels. Small amount of ascites. 2. Splenomegaly. 3. 4.1 cm left renal cyst. 4. Status post cholecystectomy. Feed Blender: [facility] Transcribe Date/Time: Jun 25 2025 6:23P Dictated by : ALONDRA SALAZAR MD This examination was interpreted and the report reviewed and electronically signed by: ALONDRA SALAZAR MD on Jun 25 2025 6:30PM EST [id number] Normal [facility] Urinalysis complete panel (U )on 06-25-2025 Bacteria LM.HPF (Urine sed) [#/Area] Few Abnormal None Seen [facility] Comment on above: Order Comment: Clarita carrasco Type: BLOOD SPECIMEN Ordering Facility: [facility] Address: [address] [place] [address] Performed By: #### 2 4323-8, [facility], 2275-, 93124-5 #### [facility] CLIA [id number] [address] [place] [address] [place] Bilirubin Ql (U) Negative Normal Negative [facility] Comment on above: Order Comment: Clarita carrasco Type: BLOOD SPECIMEN Ordering Facility: [facility] Address: [address] [place] [address] Performed By: #### 2 4323-8, [facility], 6-4, 48409-9 #### [facility] CLIA [id number] [address] [place] [address] [place] Clarity (Unsp spec) Clear Normal Clear [facility] Comment on above: Order Comment: Speci men Type: BLOOD SPECIMEN Ordering Facility: [facility] Address: [address] [place] [address] Performed By: #### 2 4323-8, TSHRF, 6-4, 07038-9 #### [facility] CLIA [id number] [address] Color (U) Yellow Normal Yellow [facility] Comment on above: Order Comment: Speci men Type: BLOOD SPECIMEN Ordering Facility: [facility] Address: [address] [place] [address] Performed By: #### 2 4323-8, TSHRF, 6-4, 15672-2 #### [facility] CLIA [id number] [address] Epithelial cells LM.HPF (Urine sed) [#/Area] Few Normal [facility] Comment on above: Order Comment: Speci men Type: BLOOD SPECIMEN Ordering Facility: [facility] Address: [address] [place] [address] Performed By: #### 2 4323-8, TSHRF, 2275-4, 35376-3 #### [facility] CLIA [id number] [address] Glucose Test strip (U) [Mass/Vol] Trace Abnormal Negative [facility] Comment on above: Order Comment: Speci men Type: BLOOD SPECIMEN Ordering Facility: [facility] Address: [address] [place] [address] Performed By: #### 2 4323-8, TSHRF, 6-4, 86813-7 #### [facility] CLIA [id number] [address] Hemoglobin Ql (U) Trace Abnormal Negative [facility] Comment on above: Order Comment: Speci men Type: BLOOD SPECIMEN Ordering Facility: [facility] Address: [address] [place] [address] Performed By: #### 2 4323-8, TSHRF, 6-4, 96921-7 #### [facility] CLIA [id number] [address] [place] [address] [place] Ketones Ql (U) Negative Normal Negative [facility] Comment on above: Order Comment: Speci men Type: BLOOD SPECIMEN Ordering Facility: [facility] Address: [address] [place] [address] Performed By: #### 2 4323-8, TSHRF, 6-4, 55736-7 #### [facility] CLIA [id number] [address] Leukocyte esterase Test strip Ql (U) 1+ Abnormal Negative [facility] Comment on above: Order Comment: Speci men Type: BLOOD SPECIMEN Ordering Facility: [facility] Address: [address] [place] [address] Performed By: #### 2 4323-8, TSHRF, 2275-4, 02361-6 #### [facility] CLIA [id number] [address] STATES [facility] Nitrite Ql (U) Positive Abnormal Negative [facility] Comment on above: Order Comment: Speci men Type: BLOOD SPECIMEN Ordering Facility: [facility] Address: [address] [place] [address] Performed By: #### 2 4323-8, TSHRF, 2275-4, 83474-8 #### [facility] CLIA [id number] [address] pH (U) 6.5 [pH] Normal 5.0-8.0 [facility] Comment on above: Order Comment: Speci men Type: BLOOD SPECIMEN Ordering Facility: [facility] Address: [address] [place] [address] Performed By: #### 2 4323-8, TSHRF, 6-4, 71392-2 #### [facility] CLIA [id number] [address] Protein (U) [Mass/Vol] Negative Normal Negative [facility] Comment on above: Order Comment: Speci men Type: BLOOD SPECIMEN Ordering Facility: [facility] Address: [address] [place] [address] Performed By: #### 2 4323-8, TSHRF, 2275-12, #### [facility] CLIA [id number] [address] RBC LM.HPF (Urine sed) [#/Area] 0-3 /HPF Normal 0-3 /HPF [facility] Comment on above: Order Comment: Speci men Type: BLOOD SPECIMEN Ordering Facility: [facility] Address: [address] [place] [address] Performed By: #### 2 4323-8, TSH, 2275-12, #### [facility] CLIA [id number] [address] Specific gravity (U) [Rel density] 1.015 Normal 1.005-1.030 [facility] Comment on above: Order Comment: Speci men Type: BLOOD SPECIMEN Ordering Facility: [facility] Address: [address] [place] [address] Performed By: #### 2 4323-8, [facility], 2275-12, #### [facility] CLIA [id number] [address] Urobilinogen Ql (U) 0.2 EU/dL Normal 0.2-1.0 EU/dL [facility] Comment on above: Order Comment: Speci men Type: BLOOD SPECIMEN Ordering Facility: [facility] Address: [address] [place] [address] Performed By: #### 2 4323-8, [facility], 2275-12, #### [facility] CLIA [id number] [address] WBC LM.HPF (Urine sed) [#/Area] 0-5 /HPF Normal 0-5 /HPF [facility] Comment on above: Order Comment: Speci men Type: BLOOD SPECIMEN Ordering Facility: [facility] Address: [address] [place] [address] Performed By: #### 2 4323-8, TSH, 2275-12, 89961-0 #### [facility] CLIA [id number] [address] [place] [address] [place] Vit B12 SerPl-mCncon 06-25- 025 Cobalamin (Vitamin B12) [Mass/Vol] pg/mL High 232-1245 [facility] Comment on above: Order Comment: Speci men Type: BLOOD SPECIMEN Ordering Facility: [facility] Address: [address] [place] [address] Performed By: #### 2 4323-8, [facility], 2276-4, 41425-3 #### [facility] CLIA [id number] [address] [place] [address] [place] Cobalamin (Vitamin B12) [Mass/Vol] 819 pg/mL Normal 232-1245 [facility] Comment on above: Order Comment: Speci men Type: BLOOD SPECIMENOrdering Facility: [facility] Address: [address] [place] [address] Performed By: #### 2 132-9 ####[facility] LAB[facility] [id number] [place] [id number] [place] aPTT PPPon 06-25-2025 aPTT Coag (PPP) [Time] 29.8 s Normal 23.0-32.4 [facility] Comment on above: Order Comment: Speci men Type: BLOOD SPECIMEN Ordering Facility: [facility] Address: [address] [place] [address] Performed By: #### 2 4323-8, [facility], 2276-4, 13309-8 #### [facility] CLIA [id number] [address] [place] [address] [place] CNOVon 06-01-2025 CNOV Normal [facility] Elbow min 3 Viewson 05-26-20 25 Elbow min 3 Views [facility] Imaging Services [address] [place], [place] [address] Elbow min 3 Views MR#: [id number] Acct: [id number] Name: YAZAN NOLASCO Rep #: [id number] : 1950 M 75 From: Kunal Hoover MD PCP: Dr. Dee Ashley MD Status: REG ER Study: Elbow min 3 Views Date of Exam: 05/26/25 Exam# [id number] Ordering Dr: Sim Zimmerman MD PROCEDURE: LEFT ELBOW MIN 3 VIEWS 05/26/2025 REASON FOR EXAM: INJURY/PAIN TECHNIQUE: Procedure Code: GUS Modality: DX Procedure: ELBOW MIN 3 VIEWS Laterality: Left COMPARISON: None. FINDINGS: No acute fracture or dislocation appreciated. Alignment is anatomic. Mild degenerative arthrosis of the ulnohumeral articulation. There is an elbow joint effusion, which raises concern for possible occult nondisplaced fracture. Small amorphous calcifications adjacent to the medial and lateral humeral epicondyles likely related to mild chronic degenerative epicondylitis. Prominent generalized soft tissue swelling about the elbow at the dorsal aspect. RAD/Elbow min 3 Views IMPRESSION: No appreciable acute fracture or dislocation, although there is prominent soft tissue swelling and elbow joint effusion which raises concern for possible occult nondisplaced fracture. Mild degenerative changes. Reading Location: [facility] CC: Dr. Dee Ashley MD; Dr. Sim Zimmerman MD Feed Blender: Signed Normal [facility] Emergency Department Summary on 05-26-2025 Emergency Department Summary [facility] Medical Records Department [address] [place] [address] Emergency Department Summary 05/26/25 MR#: [id number] Acct: [id number] Name: YAZAN NOLASCO Rep #: [id number] : 1950 75 From: Sim Zimmerman MD PCP: Dr. Dee Ashley MD Status:REG ER Location: ED HPI History of Present Illness Chief Complaint: Laceration Detail of Chief Complaint: Dog bite left elbow and proximal medial left thigh Informant: patient Onset/Context/Timing Onset: Hours Mechanism/Context: Blunt Injury and Puncture Wound Location of pain/injuries: Left elbow and Left thigh Quality of Pain: Aching Location: Left elbow and thigh Current Severity: Mild Maximum Severity: Moderate Worsened by: Palpation Relieved by: Remaining still Associated Symptoms Associated Symptoms: Negative for Parasthesias, Weakness, Loss of function, Inability to ambulate, Loss of consciousness or Amnesia Narrative Narrative: Patient is a 75-year-old male. He is on anticoagulant for atrial fibs. He also has history of diabetes and hypertension. His 290+ pound dogs were fighting. He attempted to break them apart. When he did this he sustained a bite to the lateral left elbow and a bite left medial proximal thigh. Tetanus is up-to-date. He denies paresthesia, anesthesia or weakness in his left upper extremity or lower extremity. Dogs immunization is up-to-date as well. Prior similar symptoms: No Recent Illness/[facility]: [facility] Medical History Injury of head and neck Cancer Hepatitis Former smoker CPAP (continuous positive airway pressure) dependence Sleep apnea Atrial fibrillation ICD (implantable cardioverter-defibrillator) in place Pacemaker Hypertension Acute calculous cholecystitis Hyperlipemia Diabetic neuropathy HTN (hypertension) Diabetes Home Medications ???Medication ???Instructions ???Recorded ???Last Taken ???Type allopurinol 100 mg tablet 200 mg PO DAILYCM GOUT 05/12/14 History aspirin 81 mg chewable tablet 81 mg PO DAILY@0800 HEALTH 4 10/08/24 History atorvastatin 20 mg tablet 20 mg PO QODAY CHOLESTEROL 4 10/07/24 History duloxetine 60 mg capsule,delayed 60 mg PO DAILY MOOD 05/12/1410/09 History release hydrochlorothiazide 25 mg tablet 25 mg PO DAILY BP 05/12/14 5 History Held on 10/13/24. Instructions: Hold for 1 week and restart at lower dose 12.5 mg daily. lisinopril 40 mg tablet 40 mg PO DAILY BP 05/12/14 5 History Held on 10/13/24. Instructions: Hold for 1 week and follow with BMP with PCP potassium chloride 10 mEq 10 meq PO BID SUPPLEMENT 05/12/14 10/09/24 History tablet,extended release (Klor-Con) acetaminophen 500 mg tablet 1,000 mg PO BID PRN Pain 06/09/21 06/09/21 07:00 History amlodipine 5 mg tablet 5 mg PO DAILY BP 06/09/21 10/09/24 History magnesium oxide 400 mg PO BID SUPPLEMENT 06/09/21 10/09/24 History metoprolol tartrate 100 mg tablet 100 mg PO BID HEART 06/09/2109/12 History tamsulosin 0.4 mg capsule 0.8 mg PO DAILY PROSTATE 06/09/21 10/08/24 History warfarin 5 mg tablet 5 mg PO MOTUWETH BLOODTHINNER 05/1310/09/24 History apremilast 30 mg tablet (Otezla) 30 mg PO DAILY ARTHRITIS 10/09/24 10/08/24 History bupropion HCl 150 mg 24 hr tablet, 150 mg PO DAILY MOOD 10/09/24 History extended release clobetasol 0.05 % scalp solution See Rx Instructions topical 10/08/24 History .COMPLEX SCALP gabapentin 600 mg tablet 600 mg PO QHS PAIN 10/09/24 History warfarin 2.5 mg tablet 2.5 mg PO SUFRSA BLOOD NNER 09/1210/03/24 History insulin glargine 100 unit/mL (3 12 unit (0.12 mL) subcut QHS DM 30 10/13/24 06/07/21 Rx mL) subcutaneous pen (Lantus days #0 mL Solostar U-100 Insulin) cephalexin 500 mg capsule 500 mg PO Q12H 7 days #14 caps 12/02 Unknown Rx amoxicillin 875 mg-potassium 875 mg PO Q12H #10 TABLETS 5 Unknown Rx clavulanate 125 mg tablet Allergy/AdvReac Type Severity Reaction Status Date / Time No Known Allergies Allergy Verified 05/26/25 18:06 Surgical History Status post laparoscopic cholecystectomy ( 06/2021) Social History household members: spouse housing: house Smoking Status: Former smoker ROS ROS ED Constitutional Constitutional ED: Denies chills, fever(s), subjective or sweats Musculoskeletal Musculoskeletal: Denies arthralgias, back pain, myalgias or neck pain Neurologic Neurologic: Denies headache(s), paresthesias or weakness Hematologic/Lymphatic Hematologic/Lymphatic: Denies easy bleeding or easy bruising EXAM Physical Exam Const V (more content not included)... Normal [facility] CNOVon 05-25-2025 CNOV Normal [facility] Basic metabolic 2000 panelon 05-12-2025 Anion gap [Moles/Vol] 12 mmol/L Normal 8-15 [facility] Comment on above: Order Comment: Speci men Type: BLOOD SPECIMENOrdering Facility: [facility] Address: [address] [place] [address] Performed By: #### 2 4321-2, ####[facility] [place] MILLTOWVIVIANALIA [id number] [place] [address] [place] Calcium [Mass/Vol] 9.1 mg/dL Normal 8.5-10.2 [facility] Comment on above: Order Comment: Speci men Type: BLOOD SPECIMENOrdering Facility: [facility] Address: [address] [place] [address] Performed By: #### 2 4321-2, ####[facility] MILLTOWVIVIANALIA [id number] [place] [address] [place] Chloride [Moles/Vol] 101 mmol/L Normal 98-107 [facility] Comment on above: Order Comment: Speci men Type: BLOOD SPECIMENOrdering Facility: [facility] Address: [address] [place] [address] Performed By: #### 2 4321-2, ####[facility] MILLWNCLIA [id number] [place] [address] [place] CO2 [Moles/Vol] 23 mmol/L Normal 22-30 [facility] Comment on above: Order Comment: Speci men Type: BLOOD SPECIMENOrdering Facility: [facility] Address: [address] [place] [address] Performed By: #### 2 4321-2, ####[facility] MILLTOWNCLIA [id number] [place] [address] [place] Creatinine [Mass/Vol] 1.24 mg/dL High 0.73-1.22 [facility] Comment on above: Order Comment: Clarita carrasco Type: BLOOD SPECIMENOrdering Facility: [facility] Address: [address] [place] [address] Performed By: #### 2 4321-2, ####[facility] [id number] [place] [address] [place] eGFRcr SerPlBld CKD-EPI 2020 61 mL/min/1.73m??? Normal >=60 [facility] Comment on above: Order Comment: Clarita carrasco Type: BLOOD SPECIMENOrdering Facility: [facility] Address: [address] [place] [address] Result Comment: Alvina mated Glomerular Filtration Rate (eGFR) is calculated using the 2020 CKD-EPI creatinine equation. This equation utilizes serum creatinine, sex, and age as parameters. The creatinine assay has traceable calibration to isotope dilution-mass spectrometry. Refer to KDIGO guidelines for clinical interpretation. In patients with unstable renal function, e.g. those with acute kidney injury, the eGFR may not accurately reflect actual GFR. Performed By: #### 2 4321-2, ####[facility] [id number] [place] [address] [place] Glucose [Mass/Vol] 326 mg/dL High 74-99 [facility] Comment on above: Order Comment: Clarita carrasco Type: BLOOD SPECIMENOrdering Facility: [facility] Address: [address] [place] [address] Result Comment: The [place] [employer] (ADA) provides guidance for cutoff values for fasting glucose and random glucose. The ADA defines fasting as no caloric intake for at least 8 hours. Fasting plasma glucose results between 100 to 125 mg/dL indicate increased risk for diabetes (prediabetes).Fasting plasma glucose results greater than or equal to 126 mg/dL meet the criteria for diagnosis of diabetes. In the absence of unequivocal hyperglycemia, results should be confirmed by repeat testing. In a patient with classic symptoms of hyperglycemia or hyperglycemic crisis, random plasma glucose results greater than or equal to 200 mg/dL meet the criteria for diagnosis of diabetes.Reference: Standards of Medical Care in Diabetes 2016, [place] [employer]. Diabetes Care. 2016.39(Suppl 1). Performed By: #### 2 432-2, ####[facility] JOINERVIVIANAYOLA [id number] [place] [address] [place] Potassium [Moles/Vol] 4.1 mmol/L Normal 3.7-5.1 [facility] Comment on above: Order Comment: Speci men Type: BLOOD SPECIMENOrdering Facility: [facility] Address: [address] [place] [address] Performed By: #### 2 432-2, ####[facility] NEVAEHHONG [id number] [place] [address] [place] Sodium [Moles/Vol] 136 mmol/L Normal 136-144 [facility] Comment on above: Order Comment: Speci danilo Type: BLOOD SPECIMENOrdering Facility: [facility] Address: [address] [place] [address] Performed By: #### 2 43209-11, ####[facility] NEVAEHKERRYROMEOA [id number] [place] [address] [place] Urea nitrogen [Mass/Vol] 12 mg/dL Normal 9-24 [facility] Comment on above: Order Comment: Hui danilo Type: BLOOD SPECIMENOrdering Facility: [facility] Address: [address] [place] [address] Performed By: #### 2 4322, ####[facility]ITALVIVIANALIA [id number] [place] [address] [place] CNOVon 05-12-2025 CNOV Normal [facility] Magnesium SerPl-mCncon 05-12 Magnesium [Mass/Vol] 1.8 mg/dL Normal 1.7-2.3 [facility] Comment on above: Order Comment: Speci men Type: BLOOD SPECIMENOrdering Facility: [facility] Address: [address] [place] [address] Performed By: #### 2 4321-2, 01285-2 ####[facility] [place] ABEBE [id number] [place] [address] [place] T3Free SerPl-mCncon 05-12-20 25 Free T3 [Mass/Vol] 2.8 pg/mL Normal 2.3-4.1 [facility] Comment on above: Order Comment: Speci men Type: BLOOD SPECIMENOrdering Facility: [facility] Address: [address] [place] [address] Performed By: #### 3 016-3, 0, 3024-03 ####[facility] [id number] [place] [address] [place] T4 Free SerPl-mCncon 025 Free T4 [Mass/Vol] 1.1 ng/dL Normal 0.9-1.7 [facility] Comment on above: Order Comment: Speci men Type: BLOOD SPECIMENOrdering Facility: [facility] Address: [address] [place] [address] Performed By: #### 3 016-3, 0, 3024-03 ####[facility] LABCL[facility] [id number] [place] [address] [place] TSH SerPl-aCncon 05-12-2025 TSH Qn 2.660 m[IU]/L Normal 0.270-4.200 [facility] Comment on above: Order Comment: Speci men Type: BLOOD SPECIMENOrdering Facility: [facility] Address: [address] [place] [address] Performed By: #### 3 016-3, 305-0, 3024-03 ####[facility] [id number] [place] [address] [place] CNOVon 05-05-2025 CNOV Normal [facility] CNOVon 04-15-2025 CNOV Normal [facility] CNOVSPon 04-02-2025 CNOVSP Normal [facility] CNCOon 03-27-2025 CNCO Letter Text Normal [facility] 25(OH)D3 SerPl-mCncon 2024 25-hydroxyvitamin D3 [Mass/Vol] 68.2 ng/mL Normal 31.0-80.0 [facility] Comment on above: Order Comment: Speci men Type: BLOOD SPECIMENOrdering Facility: [facility] Address: [address] [place] [address] Performed By: #### 1 989-3 ####[facility] LABCL[facility] [id number] [place] [address] [place] 25-hydroxyvitamin D3 [Mass/V ol]on 03-25-2025 Interpretation and review of laboratory results Normal [facility] CBC W Auto Differential pane l (Bld)on 03-25-2025 Basophils (Bld) [#/Vol] 0.05 10*3/uL [facility] Basophils/100 WBC (Bld) 0.8 % [facility] Differential cell count method Nom (Bld) Auto [facility] Eosinophils (Bld) [#/Vol] 0.19 10*3/uL [facility] Eosinophils/100 WBC (Bld) 3 % [facility] Erythrocyte distribution width (RBC) [Ratio] 16.2 % High 11.5 - 15.0 % [facility] Hematocrit (Bld) [Volume fraction] 35.9 % Low 39.0 - 51.0 % [facility] Hemoglobin (Bld) [Mass/Vol] 11.2 g/dL Low 13.0 - 17.0 g/dL [facility] Immature granulocytes (Bld) [#/Vol] 0.03 10*3/uL [facility] Immature granulocytes/100 WBC (Bld) 0.5 % [facility] Interpretation and review of laboratory results Abnormal [facility] Lymphocytes (Bld) [#/Vol] 0.97 10*3/uL Low [facility] Lymphocytes/100 WBC (Bld) 15.4 % [facility] MCH (RBC) [Entitic mass] 26.2 pg 26.0 - 34.0 pg [facility] MCHC (RBC) [Mass/Vol] 31.2 g/dL 30.5 - 36.0 g/dL [facility] MCV (RBC) [Entitic vol] 84.1 fL 80.0 - 100.0 fL [facility] Monocytes (Bld) [#/Vol] 0.53 10*3/uL [facility] Monocytes/100 WBC (Bld) 8.4 % [facility] Neutrophils (Bld) [#/Vol] 4.53 10*3/uL [facility] Neutrophils/100 WBC (Bld) 71.9 % [facility] Nucleated RBC (Bld) [#/Vol] [facility] Nucleated RBC/100 WBC (Bld) [Ratio] 0 % /100 WBC [facility] Platelet mean volume (Bld) [Entitic vol] 12.1 fL 9.0 - 12.7 fL [facility] Platelets (Bld) [#/Vol] 92 10*3/uL Low [facility] Comment on above: No clot detected. RBC (Bld) [#/Vol] 4.27 10*6/uL 4.20 - 6.0 0 m/uL [facility] WBC (Bld) [#/Vol] 6.3 10*3/uL [facility] Basophils (Bld) [#/Vol] 0.05 10*3/uL Normal <0.11 [facility] Comment on above: Order Comment: Speci men Type: BLOOD SPECIMENOrdering Facility: [facility] Address: [address] [place] [address] Performed By: #### 5 7021-8 ####[facility] LABCL[facility] [id number] [address] STATES OF [facility] Basophils/100 WBC (Bld) 0.8 % Normal [facility] Comment on above: Order Comment: Speci men Type: BLOOD SPECIMENOrdering Facility: [facility] [facility] Address: [address] [place] [address] Performed By: #### 5 7021-8 ####[facility] [id number] [address], [place] [address] [place] Differential cell count method Nom (Bld) Auto Normal [facility] Comment on above: Order Comment: Speci men Type: BLOOD SPECIMENOrdering Facility: [facility] Address: [address] [place] [address] Performed By: #### 5 7021-8 ####[facility] [id number] [address], [place] [address] [place] Eosinophils (Bld) [#/Vol] 0.19 10*3/uL Normal <0.46 [facility] Comment on above: Order Comment: Speci men Type: BLOOD SPECIMENOrdering Facility: [facility] Address: [address] [place] [address] Performed By: #### 5 7021-8 ####[facility] [id number] [place] [address] [place] Eosinophils/100 WBC (Bld) 3.0 % Normal [facility] Comment on above: Order Comment: Speci men Type: BLOOD SPECIMENOrdering Facility: [facility] Address: [address] [place] [address] Performed By: #### 5 7021-8 ####[facility] [id number] [address], [place] [address] [place] Erythrocyte distribution width (RBC) [Ratio] 16.2 % High 11.5-15.0 [facility] Comment on above: Order Comment: Speci men Type: BLOOD SPECIMENOrdering Facility: [facility] Address: [address] [place] [address] Performed By: #### 5 7021-8 ####[facility] [id number] [address], [facility] [place] Hematocrit (Bld) [Volume fraction] 35.9 % Low 39.0-51.0 [facility] Comment on above: Order Comment: Speci men Type: BLOOD SPECIMENOrdering Facility: [facility] Address: [address] [place] [address] Performed By: #### 5 7021-8 ####[facility] [id number] [place] [address] [place] Hemoglobin (Bld) [Mass/Vol] 11.2 g/dL Low 13.0-17.0 [facility] Comment on above: Order Comment: Speci men Type: BLOOD SPECIMENOrdering Facility: [facility] Address: [address] [place] [address] Performed By: #### 5 7021-8 ####[facility] [id number] [place] [address] [place] Immature granulocytes (Bld) [#/Vol] 0.03 10*3/uL Normal <0.10 [facility] Comment on above: Order Comment: Speci men Type: BLOOD SPECIMENOrdering Facility: [facility] Address: [address] [place] [address] Performed By: #### 5 7021-8 ####[facility] [id number] [place] [address] [place] Immature granulocytes/100 WBC (Bld) 0.5 % Normal [facility] Comment on above: Order Comment: Speci men Type: BLOOD SPECIMENOrdering Facility: [facility] Address: [address] [place] [address] Performed By: #### 5 7021-8 ####[facility] [id number] [place] [address] [place] Lymphocytes (Bld) [#/Vol] 0.97 10*3/uL Low 1.00-4.00 [facility] Comment on above: Order Comment: Speci men Type: BLOOD SPECIMENOrdering Facility: [facility] Address: [address] [place] [address] Performed By: #### 5 7021-8 ####[facility] [id number] [place] [address] [place] Lymphocytes/100 WBC (Bld) 15.4 % Normal [facility] Comment on above: Order Comment: Speci men Type: BLOOD SPECIMENOrdering Facility: [facility] Address: [address] [place] [address] Performed By: #### 5 7021-8 ####[facility] [id number] [place] [address] [place] MCH (RBC) [Entitic mass] 26.2 pg Normal 26.0-34.0 [facility] Comment on above: Order Comment: Speci men Type: BLOOD SPECIMENOrdering Facility: [facility] Address: [address] [place] [address] Performed By: #### 5 7021-8 ####[facility] [id number] [place] [address] [place] MCHC (RBC) [Mass/Vol] 31.2 g/dL Normal 30.5-36.0 [facility] Comment on above: Order Comment: Speci men Type: BLOOD SPECIMENOrdering Facility: [facility] Address: [address] [place] [address] Performed By: #### 5 7021-8 ####[facility] [id number] [place] [address] [place] MCV (RBC) [Entitic vol] 84.1 fL Normal 80.0-100.0 [facility] Comment on above: Order Comment: Speci men Type: BLOOD SPECIMENOrdering Facility: [facility] Address: [address] [place] [address] Performed By: #### 5 7021-8 ####[facility] [id number] [place] [address] [place] Monocytes (Bld) [#/Vol] 0.53 10*3/uL Normal <0.87 [facility] Comment on above: Order Comment: Speci men Type: BLOOD SPECIMENOrdering Facility: [facility] Address: [address] [place] [address] Performed By: #### 5 7021-8 ####[facility] [id number] [address] [address] [place] Monocytes/100 WBC (Bld) 8.4 % Normal [facility] Comment on above: Order Comment: Speci men Type: BLOOD SPECIMENOrdering Facility: [facility] Address: [address] [place] [address] Performed By: #### 5 7021-8 ####[facility] [id number] [address], [place] [address] [place] Neutrophils (Bld) [#/Vol] 4.53 10*3/uL Normal 1.45-7.50 [facility] Comment on above: Order Comment: Speci men Type: BLOOD SPECIMENOrdering Facility: [facility] Address: [address] [place] [address] Performed By: #### 5 7021-8 ####[facility] [id number] [place] [address] [place] Neutrophils/100 WBC (Bld) 71.9 % Normal [facility] Comment on above: Order Comment: Speci men Type: BLOOD SPECIMENOrdering Facility: [facility] Address: [address] [place] [address] Performed By: #### 5 7021-8 ####[facility] [id number] [place] [id number] [place] Nucleated RBC (Bld) [#/Vol] 10*3/uL Normal <0.01 [facility] Comment on above: Order Comment: Speci men Type: BLOOD SPECIMENOrdering Facility: [facility] Address: [address] [place] [address] Performed By: #### 5 7021-8 ####[facility] [id number] [place] [address] [place] Nucleated RBC/100 WBC (Bld) [Ratio] 0.0 /100 WBC Normal [facility] Comment on above: Order Comment: Speci men Type: BLOOD SPECIMENOrdering Facility: [facility] Address: [address] [place] [address] Performed By: #### 5 7021-8 ####[facility] [id number] [place] [address] [place] Platelet mean volume (Bld) [Entitic vol] 12.1 fL Normal 9.0-12.7 [facility] Comment on above: Order Comment: Speci men Type: BLOOD SPECIMENOrdering Facility: [facility] Address: [address] [place] [address] Performed By: #### 5 7021-8 ####[facility] [id number] [place] [address] [place] Platelets (Bld) [#/Vol] 92 10*3/uL Low 150-400 [facility] Comment on above: Order Comment: Speci men Type: BLOOD SPECIMENOrdering Facility: [facility] Address: [address] [place] [address] Result Comment: No c lot detected. Performed By: #### 5 7021-8 ####[facility] [id number] [place] [address] [place] RBC (Bld) [#/Vol] 4.27 10*6/uL Normal 4.20-6.00 [facility] Comment on above: Order Comment: Speci men Type: BLOOD SPECIMENOrdering Facility: [facility] Address: [address] [place] [address] Performed By: #### 5 7021-8 ####[facility] [id number] [place] [address] [place] WBC (Bld) [#/Vol] 6.30 10*3/uL Normal 3.70-11.00 [facility] Comment on above: Order Comment: Clarita carrasco Type: BLOOD SPECIMENOrdering Facility: [facility] Address: [address] [place] [address] Performed By: #### 5 7021-8 ####[facility] [id number] [place] [address] [place] CNOVon 03-25-2025 CNOV Normal [facility] HbA1c (Bld)on 03-25-2025 Average glucose Estimated from glycated hemoglobin (Bld) [Mass/Vol] 137 mg/dL [facility] Comment on above: eAG: (Estimated aver age glucose) is a calculated value from HgbA1c and is manufacturers representative of the average blood glucose level in the last 2-3 month period. HbA1c (Bld) [Mass fraction] 6.4 % High 4.3 - 5.6 % [facility] Comment on above: [place] Diabetes As sociation guidelines indicate that patients with HgbA1c in the range 5.7-6.4% are at increased risk for development of diabetes, and intervention by lifestyle modification may be beneficial. HgbA1c greater or equal to 6.5% is considered diagnostic of diabetes. Interpretation and review of laboratory results Abnormal [facility] Average glucose Estimated from glycated hemoglobin (Bld) [Mass/Vol] 137 mg/dL Normal [facility] Comment on above: Order Comment: Clarita carrasco Type: BLOOD SPECIMENOrdering Facility: [facility] Address: [address] [place] [address] Result Comment: eAG: (Estimated average glucose) is a calculated value from HgbA1c and is manufacturers representative of the average blood glucose level in the last 2-3 month period. Performed By: #### 5 5454-3 ####[facility] [id number] [place] [address] [place] HbA1c (Bld) [Mass fraction] 6.4 % High 4.3-5.6 [facility] Comment on above: Order Comment: Clarita carrasco Type: BLOOD SPECIMENOrdering Facility: [facility] Address: [address] [place] [address] Result Comment: [place] Diabetes Association guidelines indicate that patients with HgbA1c in the range 5.7-6.4% are at increased risk for development of diabetes, and intervention by lifestyle modification may be beneficial. HgbA1c greater or equal to 6.5% is considered diagnostic of diabetes. Performed By: #### 5 5454-3 ####[facility] [id number] [address] STATES OF [facility] VITAMIN D 25 HYDROXYon 03-25 25-hydroxyvitamin D3 [Mass/Vol] 68.2 ng/mL 31.0 - 80.0 ng/mL [facility] XR HIP 3V PELV+ AP/LAT RTon 03-25-2025 XR HIP 3V PELV+ AP/LAT RT Normal [facility] CNPTOUTREACHon 03-24-2025 CNPTOUTREACH Normal [facility] CARDIAC IMPLANTABLE DEVICE C HECKon 03-23-2025 Battery Status MARYLOU [facility] David Setting AT Mode Switch Rate 170 [facility] David Setting Lower Rate Limit 50 [facility] David Setting Maximum Sensor Rate 130 [facility] David Setting Maximum Tracking Rate 110 [facility] David Setting Mode (NBG Code) DDD [facility] David Setting PAV Delay 250 [facility] David Setting KRYSTAL Delay 250 [facility] Date Time Interrogation Session [id number] [facility] Implantable Lead Location Right Ventricle [facility] Implantable Lead Location Right Atrium [facility] Implantable Lead Model 0295 Endot[place] 4-Site G [facility] Implantable Lead Model 4470 Fineline II Sterox EZ [facility] Implantable Lead Serial Number [id number] [facility] Implantable Lead Serial Number [id number] [facility] Implantable Pulse Generator Implant Date 20180917 [facility] Implantable Pulse Generator Outreach Liaison [employer] [facility] Implantable Pulse Generator Model D142 [facility] Implantable Pulse Generator Serial Number [id number] [facility] Implantable Pulse Generator Type Defibrillator [facility] Lead Channel Impedance Value 395 [facility] Lead Channel Impedance Value 400 [facility] Lead Channel Sensing Intrinsic Amplitude 1.9 [facility] Lead Channel Sensing Intrinsic Amplitude 6.1 [facility] Lead Channel Setting Pacing Amplitude 2.8 [facility] Lead Channel Setting Pacing Amplitude 3 [facility] Lead Channel Setting Sensing Sensitivity 0.25 [facility] Lead Channel Setting Sensing Sensitivity 0.3 [facility] Rate 1 220 [facility] Rate 1 185 [facility] Rate 1 150 [facility] Shock Measured Impedance 56 [facility] Therapies 41J, 41J [facility] Therapies 29J, 41J [facility] Therapies NaNJ, NaNJ [facility] Therapy Statistic Recent ATP Delivered 0 [facility] Therapy Statistic Recent Shocks Aborted 0 [facility] Therapy Statistic Recent Shocks Delivered 0 [facility] Zone ID 1 [facility] Zone ID 2 [facility] Zone ID 3 [facility] Zone Setting Status Off [facility] Zone Setting Type Category VF [facility] Zone Setting Type Category VT [facility] Zone Setting Type Category VT1 [facility] Normal In-Office: No Events * Normal Device Function Post rapid atrial pacing for AFL * Alerts or events: None since procedure * Battery: MARYLOU, 6yrs * Sensing, impedance and thresholds reviewed and tested * Presenting Rhythm: was reviewed /VS * Underlying Rhythm: was reviewed SR * Heart Rate Histograms reviewed * Pacing and Detection Parameters were evaluated AP <1% MANAGER IN TRAINING <1% Device Reprogrammed Device reprogrammed, changes are listed below: * RA amplitude adjusted based on testing today NOTE TO PROVIDERS: Cardiac Implanted Devices Flowsheets contain detailed Programming and Evaluation data. Full Docket/PDF found below under Scanned Documents. PHILLY CARDIAC Christoph Chavis M D - 03/23/2025 Normal In-Office: No Events * Normal Device Function Post rapid atrial pacing for AFL * Alerts or events: None since procedure * Battery: MARYLOU, 6yrs * Sensing, impedance and thresholds reviewed and tested * Presenting Rhythm: was reviewed /VS * Underlying Rhythm: was reviewed SR * Heart Rate Histograms reviewed * Pacing and Detection Parameters were evaluated AP <1% MANAGER IN TRAINING <1% Device Reprogrammed Device reprogrammed, changes are listed below: * RA amplitude adjusted based on testing today NOTE TO PROVIDERS: Cardiac Implanted Devices Flowsheets contain detailed Programming and Evaluation data. Full Docket/PDF found below under Scanned Documents. [facility] No Panel Informationon 03-23 Implantable Lead Connection Status Connected [facility] Implantable Lead Implant Date 20120311 [facility] Implantable Lead Outreach Liaison [employer] [facility] Lead Channel Measurements Date and Time 2025-03-10 [facility] Lead Channel Pacing Threshold Amplitude 1.4 [facility] Lead Channel Pacing Threshold Pulse Width 0.5 [facility] Lead Channel Setting Pacing Pulse Width 0.5 [facility] Zone Setting Status On [facility] metabolic 2000 panelon 03-10-2025 Albumin [Mass/Vol] 3.7 g/dL Low 3.9-4.9 [facility] Comment on above: Order Comment: Speci men Type: BLOOD SPECIMENOrdering Facility: [facility] Address: [address] [place] [address] Performed By: #### 2 4323-8 ####[facility] [id number] [place] [address] [place] ALP [Catalytic activity/Vol] 161 U/L High 38-113 [facility] Comment on above: Order Comment: Speci men Type: BLOOD SPECIMENOrdering Facility: [facility] Address: [address] [place] [address] Performed By: #### 2 4323-8 ####[facility] [id number] [place] [id number] [place] ALT [Catalytic activity/Vol] 13 U/L Normal 10-54 [facility] Comment on above: Order Comment: Speci men Type: BLOOD SPECIMENOrdering Facility: [facility] Address: [address] [place] [address] Performed By: #### 2 4323-8 ####[facility] [id number] [place] [id number] [place] Anion gap [Moles/Vol] 11 mmol/L Normal 8-15 [facility] Comment on above: Order Comment: Speci men Type: BLOOD SPECIMENOrdering Facility: [facility] Address: [address] [place] [address] Performed By: #### 2 4323-8 ####[facility] [id number] [place] [id number] [place] AST [Catalytic activity/Vol] 26 U/L Normal 14-40 [facility] Comment on above: Order Comment: Speci men Type: BLOOD SPECIMENOrdering Facility: [facility] Address: [address] [place] [address] Performed By: #### 2 4323-8 ####[facility] [id number] [facility] [place] [id number] [place] Bilirubin [Mass/Vol] 0.5 mg/dL Normal 0.2-1.3 [facility] Comment on above: Order Comment: Speci men Type: BLOOD SPECIMENOrdering Facility: [facility] Address: [address] [place] [address] Performed By: #### 2 4323-8 ####[facility] [id number] [place] [address] [place] Calcium [Mass/Vol] 9.5 mg/dL Normal 8.5-10.2 [facility] Comment on above: Order Comment: Speci men Type: BLOOD SPECIMENOrdering Facility: [facility] Address: [address] [place] [address] Performed By: #### 2 4323-8 ####[facility] [id number] [place] [address] [place] Chloride [Moles/Vol] 105 mmol/L Normal 98-107 [facility] Comment on above: Order Comment: Speci men Type: BLOOD SPECIMENOrdering Facility: [facility] Address: [address] [place] [address] Performed By: #### 2 4323-8 ####[facility] [id number] [place] [id number] [place] CO2 [Moles/Vol] 25 mmol/L Normal 22-30 [facility] Comment on above: Order Comment: Speci men Type: BLOOD SPECIMENOrdering Facility: [facility] Address: [address] [place] [address] Performed By: #### 2 4323-8 ####[facility] [id number] [place] [id number] [place] Creatinine [Mass/Vol] 0.99 mg/dL Normal 0.73-1.22 [facility] Comment on above: Order Comment: Speci men Type: BLOOD SPECIMENOrdering Facility: [facility] Address: [address] [place] [address] Performed By: #### 2 4323-8 ####[facility] [id number] [address] [place] Creatinine and Glomerular filtration rate.predicted panel (S/P/Bld) 80 mL/min/1.73m??? Normal >=60 [facility] Comment on above: Order Comment: Speci men Type: BLOOD SPECIMENOrdering Facility: [facility] Address: [address] [place] [address] Result Comment: Alvina mated Glomerular Filtration Rate (eGFR) is calculated using the 2020 CKD-EPI creatinine equation. This equation utilizes serum creatinine, sex, and age as parameters. The creatinine assay has traceable calibration to isotope dilution-mass spectrometry. Refer to KDIGO guidelines for clinical interpretation. In patients with unstable renal function, e.g. those with acute kidney injury, the eGFR may not accurately reflect actual GFR. Performed By: #### 2 4323-8 ####[facility] [id number] [place] [id number] [place] Glucose [Mass/Vol] 140 mg/dL High 74-99 [facility] Comment on above: Order Comment: Speci men Type: BLOOD SPECIMENOrdering Facility: [facility] Address: [address] [place] [address] Result Comment: The [place] Diabetes Association (ADA) provides guidance for cutoff values for fasting glucose and random glucose. The ADA defines fasting as no caloric intake for at least 8 hours. Fasting plasma glucose results between 100 to 125 mg/dL indicate increased risk for diabetes (prediabetes).Fasting plasma glucose results greater than or equal to 126 mg/dL meet the criteria for diagnosis of diabetes. In the absence of unequivocal hyperglycemia, results should be confirmed by repeat testing. In a patient with classic symptoms of hyperglycemia or hyperglycemic crisis, random plasma glucose results greater than or equal to 200 mg/dL meet the criteria for diagnosis of diabetes.Reference: Standards of Medical Care in Diabetes 2016, [place] Diabetes Association. Diabetes Care. 2016.39(Suppl 1). Performed By: #### 2 4323-8 ####[facility] [id number] [facility] [place] [address] [place] Potassium [Moles/Vol] 4.5 mmol/L Normal 3.7-5.1 [facility] Comment on above: Order Comment: Speci men Type: BLOOD SPECIMENOrdering Facility: [facility] Address: [address] [place] [address] Performed By: #### 2 4323-8 ####[facility] [id number] [place] [id number] [place] Protein [Mass/Vol] 6.5 g/dL Normal 6.3-8.0 [facility] Comment on above: Order Comment: Speci men Type: BLOOD SPECIMENOrdering Facility: [facility] Address: [address] [place] [address] Performed By: #### 2 4323-8 ####[facility] [id number] [facility] [place] [id number] [place] Sodium [Moles/Vol] 141 mmol/L Normal 136-144 [facility] Comment on above: Order Comment: Speci men Type: BLOOD SPECIMENOrdering Facility: [facility] Address: [address] [place] [address] Performed By: #### 2 4323-8 ####[facility] [id number] [facility] [address] [address] [place] Urea nitrogen [Mass/Vol] 12 mg/dL Normal 9-24 [facility] Comment on above: Order Comment: Speci men Type: BLOOD SPECIMENOrdering Facility: [facility] Address: [address] [place] [address] Performed By: #### 2 4323-8 ####[facility] [id number] [place] [address] [place] ECG COMPLETEon 03-10-2025 ECG COMPLETE Normal [facility] ECG COMPLETE Normal [facility] CNCNPATEDon 03-09-2025 CNCNPATED Normal [facility] CNPNon 03-02-2025 CNPN Normal [facility] CNOVon 02-27-2025 CNOV Normal [facility] ECG COMPLETEon 02-27-2025 ECG COMPLETE Normal [facility] CNPTOUTREACHon 02-24-2025 CNPTOUTREACH Normal [facility] CNOVon 02-13-2025 CNOV Normal [facility] No Panel Informationon 02-13 Radiology Study observation (narrative) [facility] XR ANKLE 3V AP/LAT/OBL RTon 02-13-2025 XR ANKLE 3V AP/LAT/OBL RT Normal [facility] XR Ankle - right AP and Late ral and obliqueon 02-13-2025 IMPRESSION: No acute osseous abnormality Feed Blender: NANCY Transcribe Date/Time: Feb 13 2025 1:20P Dictated by : YOLANDA WEST MD This examination was interpreted and the report reviewed and electronically signed by: YOLANDA WEST MD on Feb 13 2025 1:22PM [facility] DIVISION OF RADIOLOGY * * *Final Report* * * DATE OF EXAM: Feb 13 2025 12:27PM WOX [id number] - XR ANKLE 3V AP/LAT/OBL RT / PROCEDURE REASON: Acute right ankle pain * * * * Physician Interpretation * * * * EXAMINATION: XR ANKLE 3V AP/LAT/OBL RT CLINICAL HISTORY: Right ankle pain and swelling Technique: XR ANKLE 3V AP/LAT/OBL RT -- RIGHT with 3 views on 3 images Comparison: None RESULT: No acute fracture or dislocation. Joint spaces are maintained. Small plantar and posterior calcaneal spurs. Right lower extremity soft tissue swelling. DIVISION OF RADIOLOGY Provider, Sangeetha Goldberg - 02/13/2025 * * *Final Report* * * DATE OF EXAM: Feb 13 2025 12:27PM WOX [id number] - XR ANKLE 3V AP/LAT/OBL RT / PROCEDURE REASON: Acute right ankle pain * * * * Physician Interpretation * * * * EXAMINATION: XR ANKLE 3V AP/LAT/OBL RT CLINICAL HISTORY: Right ankle pain and swelling Technique: XR ANKLE 3V AP/LAT/OBL RT -- RIGHT with 3 views on 3 images Comparison: None RESULT: No acute fracture or dislocation. Joint spaces are maintained. Small plantar and posterior calcaneal spurs. Right lower extremity soft tissue swelling. IMPRESSION IMPRESSION: No acute osseous abnormality Feed Blender: [facility] Transcribe Date/Time: Feb 13 2025 1:20P Dictated by : YOLANDA WEST MD This examination was interpreted and the report reviewed and electronically signed by: YOLANDA WEST MD on Feb 13 2025 1:22PM EST [facility] XR FOOT 3V AP/LAT/OBL RTon 0 02-13-2025 XR FOOT 3V AP/LAT/OBL RT Normal [facility] XR Foot - right AP and Later al and obliqueon 02-13-2025 IMPRESSION: Soft tis rudolph swelling in the forefoot and along the distal fibula. No acute fracture seen. Degenerative changes as described above. Feed Blender: [facility] Transcribe Date/Time: Feb 13 2025 1:12P Dictated by : HILDA CLEARY MD This examination was interpreted and the report reviewed and electronically signed by: HILDA CLEARY MD on Feb 13 2025 1:17PM [facility] DIVISION OF RADIOLOGY * * *Final Report* * * DATE OF EXAM: Feb 13 2025 12:27PM WOX [id number] - XR FOOT 3V AP/LAT/OBL RT / PROCEDURE REASON: Foot pain, right * * * * Physician Interpretation * * * * EXAM TITLE: XR FOOT 3V AP/LAT/OBL RT EXAM DATE/TIME: 02/13/2025 12:27 PM COMPARISON: None. CLINICAL INDICATION/HISTORY: Acute ankle pain. TECHNIQUE: AP, mortise and lateral views of the right ankle are presented. AP, oblique and lateral views of the right foot are also presented. FINDINGS: No acute fractures or subluxations are noted. There is mild first metatarsophalangeal joint space narrowing, with mild osteophyte formation and subchondral bony sclerosis. Achilles/calcaneal enthesopathy noted. There is no ankle joint effusion. The mineralization of the bones is normal. There is soft tissue swelling in the forefoot and along the distal fibula. DIVISION OF RADIOLOGY Provider, Sangeetha Goldberg - 02/13/2025 * * *Final Report* * * DATE OF EXAM: Feb 13 2025 12:27PM WOX [id number] - XR FOOT 3V AP/LAT/OBL RT / PROCEDURE REASON: Foot pain, right * * * * Physician Interpretation * * * * EXAM TITLE: XR FOOT 3V AP/LAT/OBL RT EXAM DATE/TIME: 02/13/2025 12:27 PM COMPARISON: None. CLINICAL INDICATION/HISTORY: Acute ankle pain. TECHNIQUE: AP, mortise and lateral views of the right ankle are presented. AP, oblique and lateral views of the right foot are also presented. FINDINGS: No acute fractures or subluxations are noted. There is mild first metatarsophalangeal joint space narrowing, with mild osteophyte formation and subchondral bony sclerosis. Achilles/calcaneal enthesopathy noted. There is no ankle joint effusion. The mineralization of the bones is normal. There is soft tissue swelling in the forefoot and along the distal fibula. IMPRESSION IMPRESSION: Soft tissue swelling in the forefoot and along the distal fibula. No acute fracture seen. Degenerative changes as described above. Feed Blender: [facility] Transcribe Date/Time: Feb 13 2025 1:12P Dictated by : HILDA CLEARY MD This examination was interpreted and the report reviewed and electronically signed by: HILDA CLEARY MD on Feb 13 2025 1:17PM EST [facility] XR Foot - right AP and Later al and obliqueOrdered By: Ccf Provider on 02-13-2025 [facility] 25(OH)D3 SerPl-Van 2024 25-hydroxyvitamin D3 [Mass/Vol] 15.8 ng/mL Low 31.0-80.0 [facility] Comment on above: Order Comment: Speci men Type: BLOOD SPECIMENOrdering Facility: [facility] Address: [address] [place] [address] [place] [address] Result Comment: Clas sification of 25 [place] Vitamin D status:Deficiency/Insufficiency: < or = 30 ng/ml.Sufficiency/Optimal Levels: 31-80 ng/mLToxicity: > 100 ng/mL.Test performed by chemiluminescent immunoassay. Performed By: #### 1 989-3 ####[facility] [id number] [address] [address] [place] Basic metabolic 2000 panelon 01-19-2025 Anion gap [Moles/Vol] 7 mmol/L Low 8-15 [facility] Comment on above: Order Comment: Speci men Type: BLOOD SPECIMENOrdering Facility: [facility] Address: [address] [place] [address] Performed By: #### 2 4321-2 ####[facility] [id number] [place] [address] [place]#### 86573-8, 9, 2275-4 ####[facility] LABIA [id number] [address] [address] [place] Calcium [Mass/Vol] 9.1 mg/dL Normal 8.5-10.2 [facility] Comment on above: Order Comment: Speci men Type: BLOOD SPECIMENOrdering Facility: [facility] Address: [address] [place], [place] [address] Performed By: #### 2 4321-2 ####[facility] [id number] [place] [address] [place]#### 93395-8, 9, 2275-4 ####[facility] LABIA [id number] [address] [address] [place] Chloride [Moles/Vol] 104 mmol/L Normal 98-107 [facility] Comment on above: Order Comment: Speci men Type: BLOOD SPECIMENOrdering Facility: [facility] Address: [address] [place] [address] [place] [address] Performed By: #### 2 4321-2 ####[facility] CLAY COUNTYWNCLIA [id number] [place] [address] [place]#### 78437-5, 9, 2275-12 ####[facility] [id number] [address] [address] [place] CO2 [Moles/Vol] 29 mmol/L Normal 22-30 [facility] Comment on above: Order Comment: Speci men Type: BLOOD SPECIMENOrdering Facility: [facility] Address: [facility] [place] [address] Performed By: #### 2 4321-2 ####[facility]USLIA [id number] [place] [address] [facility] [place]#### 21368-2, 2132-05, 2275-12 ####[facility]CL[facility] [id number] [address] [address] [place] Creatinine [Mass/Vol] 1.14 mg/dL Normal 0.73-1.22 [facility] Comment on above: Order Comment: Speci men Type: BLOOD SPECIMENOrdering Facility: [facility] Address: [facility] [place] [address] Performed By: #### 2 4321-2 ####[facility]USLIA [id number] [place] [address] [place]#### 42979-5, 9, 2275-12 ####[facility] [id number] [address] [address] [place] Creatinine and Glomerular filtration rate.predicted panel (S/P/Bld) 67 mL/min/1.73m??? Normal >=60 [facility] Comment on above: Order Comment: Speci men Type: BLOOD SPECIMENOrdering Facility: [facility] Address: [address] [place] [address] Result Comment: Alvina mated Glomerular Filtration Rate (eGFR) is calculated using the 2020 CKD-EPI creatinine equation. This equation utilizes serum creatinine, sex, and age as parameters. The creatinine assay has traceable calibration to isotope dilution-mass spectrometry. Refer to KDIGO guidelines for clinical interpretation. In patients with unstable renal function, e.g. those with acute kidney injury, the eGFR may not accurately reflect actual GFR. Performed By: #### 2 4321-2 ####[facility] [id number] [address] STATES OF [facility]#### 34724-3, 9, 2275- ####[facility] LABCL[facility] [id number] [place] [address] [place] Glucose [Mass/Vol] 95 mg/dL Normal 74-99 [facility] Comment on above: Order Comment: Specclair danilo Type: BLOOD SPECIMENOrdering Facility: [facility] Address: [address] [place] [address] Result Comment: The [place] Diabetes Association (ADA) provides guidance for cutoff values for fasting glucose and random glucose. The ADA defines fasting as no caloric intake for at least 8 hours. Fasting plasma glucose results between 100 to 125 mg/dL indicate increased risk for diabetes (prediabetes).Fasting plasma glucose results greater than or equal to 126 mg/dL meet the criteria for diagnosis of diabetes. In the absence of unequivocal hyperglycemia, results should be confirmed by repeat testing. In a patient with classic symptoms of hyperglycemia or hyperglycemic crisis, random plasma glucose results greater than or equal to 200 mg/dL meet the criteria for diagnosis of diabetes.Reference: Standards of Medical Care in Diabetes 2016, [place] Diabetes Association. Diabetes Care. 2016.39(Suppl 1). Performed By: #### 2 4321-2 ####[facility] [id number] [place] [address] [place]#### 32931-8, 9, 2276-4 ####[facility] LABCL[facility] [id number] [address] [address] [place] Potassium [Moles/Vol] 4.6 mmol/L Normal 3.7-5.1 [facility] Comment on above: Order Comment: Speci men Type: BLOOD SPECIMENOrdering Facility: [facility] Address: [address] [place], [place] [address] Performed By: #### 2 4321-2 ####[facility] MILLTOWNCLIA [id number] [place] [address] [place]#### 17469-6, 2132-05, 2275-12 ####[facility] LABCL[facility] [id number] [address] [address] [place] Sodium [Moles/Vol] 140 mmol/L Normal 136-144 [facility] Comment on above: Order Comment: Speci men Type: BLOOD SPECIMENOrdering Facility: [facility] Address: [address] [place], [place] [address] Performed By: #### 2 4321-2 ####[facility] MILLTOWNCLIA [id number] [place] [address] [place]#### 71447-6, 2132-05, 2275-12 ####[facility] LABCL[facility] [id number] [address] [address] [place] Urea nitrogen [Mass/Vol] 13 mg/dL Normal 9-24 [facility] Comment on above: Order Comment: Speci men Type: BLOOD SPECIMENOrdering Facility: [facility] Address: [facility] [place] [id number] Performed By: #### 2 4321-2 ####[facility] MILLTOWNCLIA [id number] [place] [address] [place]#### 06555-7, 2132-05, 2275-12 ####[facility] LABCL[facility] [id number] [place] [address] [place] CBC W Auto Differential pane l (Bld)on 01-19-2025 Basophils (Bld) [#/Vol] 0.03 10*3/uL Normal <0.11 [facility] Comment on above: Order Comment: Speci men Type: BLOOD SPECIMENOrdering Facility: [facility] Address: [address] [place] [address] Performed By: #### 5 7021-8 ####[facility]USLIA [id number] [place] [address] [place] Basophils/100 WBC (Bld) 0.7 % Normal [facility] Comment on above: Order Comment: Speci men Type: BLOOD SPECIMENOrdering Facility: [facility] Address: [address] [place] [address] Performed By: #### 5 7021-8 ####[facility]USLIA [id number] [place] [address] [place] Differential cell count method Nom (Bld) Auto Normal [facility] Comment on above: Order Comment: Speci men Type: BLOOD SPECIMENOrdering Facility: [facility] Address: [address] [place] [address] Performed By: #### 5 7021-8 ####[facility] [id number] [place] [address] [place] Eosinophils (Bld) [#/Vol] 0.06 10*3/uL Normal <0.46 [facility] Comment on above: Order Comment: Speci men Type: BLOOD SPECIMENOrdering Facility: [facility] Address: [address] [place] [address] Performed By: #### 5 7021-8 ####[facility] [id number] [place] [address] [place] Eosinophils/100 WBC (Bld) 1.4 % Normal [facility] Comment on above: Order Comment: Speci men Type: BLOOD SPECIMENOrdering Facility: [facility] Address: [address] [place] [address] Performed By: #### 5 7021-8 ####[facility] [id number] [place] [address] [place] Erythrocyte distribution width (RBC) [Ratio] 15.7 % High 11.5-15.0 [facility] Comment on above: Order Comment: Speci men Type: BLOOD SPECIMENOrdering Facility: [facility] Address: [address] [place] [address] Performed By: #### 5 7021-8 ####[facility] [id number] [place] [address] [place] Hematocrit (Bld) [Volume fraction] 35.8 % Low 39.0-51.0 [facility] Comment on above: Order Comment: Speci men Type: BLOOD SPECIMENOrdering Facility: [facility] Address: [address] [place] [address] Performed By: #### 5 7021-8 ####[facility] [id number] [place] [address] [place] Hemoglobin (Bld) [Mass/Vol] 11.4 g/dL Low 13.0-17.0 [facility] Comment on above: Order Comment: Speci men Type: BLOOD SPECIMENOrdering Facility: [facility] Address: [address] [place] [address] Performed By: #### 5 7021-8 ####[facility] [id number] [place] [address] [place] Immature granulocytes (Bld) [#/Vol] 10*3/uL Normal <0.10 [facility] Comment on above: Order Comment: Speci men Type: BLOOD SPECIMENOrdering Facility: [facility] Address: [address] [place] [address] Performed By: #### 5 7021-8 ####[facility]ITALBRIELLE [id number] [address] [place] Immature granulocytes/100 WBC (Bld) 0.2 % Normal [facility] Comment on above: Order Comment: Speci men Type: BLOOD SPECIMENOrdering Facility: [facility] Address: [address] [place] [address] Performed By: #### 5 7021-8 ####[facility] [id number] [place] [address] [place] Lymphocytes (Bld) [#/Vol] 0.86 10*3/uL Low 1.00-4.00 [facility] Comment on above: Order Comment: Speci men Type: BLOOD SPECIMENOrdering Facility: [facility] Address: [address] [place] [address] Performed By: #### 5 7021-8 ####[facility] [id number] [address] STATES [facility] Lymphocytes/100 WBC (Bld) 20.8 % Normal [facility] Comment on above: Order Comment: Speci men Type: BLOOD SPECIMENOrdering Facility: [facility] Address: [address] [place] [address] Performed By: #### 5 7021-8 ####[facility]ITALNCLIA [id number] [place] [address] [place] MCH (RBC) [Entitic mass] 27.6 pg Normal 26.0-34.0 [facility] Comment on above: Order Comment: Speci men Type: BLOOD SPECIMENOrdering Facility: [facility] Address: [address] [place] [address] Performed By: #### 5 7021-8 ####[facility]USL[facility] [id number] [place] [address] [place] MCHC (RBC) [Mass/Vol] 31.8 g/dL Normal 30.5-36.0 [facility] Comment on above: Order Comment: Speci men Type: BLOOD SPECIMENOrdering Facility: [facility] Address: [address] [place] [address] Performed By: #### 5 7021-8 ####[facility] [id number] [place] [address] [place] MCV (RBC) [Entitic vol] 86.7 fL Normal 80.0-100.0 [facility] Comment on above: Order Comment: Speci men Type: BLOOD SPECIMENOrdering Facility: [facility] Address: [address] [place] [address] Performed By: #### 5 7021-8 ####[facility] [id number] [place] [address] [place] Monocytes (Bld) [#/Vol] 0.34 10*3/uL Normal <0.87 [facility] Comment on above: Order Comment: Speci men Type: BLOOD SPECIMENOrdering Facility: [facility] Address: [address] [place] [address] Performed By: #### 5 7021-8 ####[facility] [id number] [place] [address] [place] Monocytes/100 WBC (Bld) 8.2 % Normal [facility] Comment on above: Order Comment: Speci men Type: BLOOD SPECIMENOrdering Facility: [facility] Address: [address] [place] [address] Performed By: #### 5 7021-8 ####[facility]ITALNCLI [id number] [place] [address] [place] Neutrophils (Bld) [#/Vol] 2.84 10*3/uL Normal 1.45-7.50 [facility] Comment on above: Order Comment: Speci men Type: BLOOD SPECIMENOrdering Facility: [facility] Address: [address] [place] [address] Performed By: #### 5 7021-8 ####[facility] C[facility] COUNTYWNCLIA [id number] [place] [address] [place] Neutrophils/100 WBC (Bld) 68.7 % Normal [facility] Comment on above: Order Comment: Speci men Type: BLOOD SPECIMENOrdering Facility: [facility] Address: [address] [place] [address] Performed By: #### 5 7021-8 ####[facility] [id number] [place] [address] [place] Nucleated RBC (Bld) [#/Vol] 10*3/uL Normal <0.01 [facility] Comment on above: Order Comment: Speci men Type: BLOOD SPECIMENOrdering Facility: [facility] Address: [address] [place] [address] Performed By: #### 5 7021-8 ####[facility]CL[facility] [id number] [place] [address] [place] Nucleated RBC/100 WBC (Bld) [Ratio] 0.0 /100 WBC Normal [facility] Comment on above: Order Comment: Speci men Type: BLOOD SPECIMENOrdering Facility: [facility] Address: [address] [place] [address] Performed By: #### 5 7021-8 ####[facility] [id number] [place] [address] [place] Platelet mean volume (Bld) [Entitic vol] 11.6 fL Normal 9.0-12.7 [facility] Comment on above: Order Comment: Speci men Type: BLOOD SPECIMENOrdering Facility: [facility] Address: [address] [place] [address] Performed By: #### 5 7021-8 ####[facility] MARISELNCCONCEPCIONA [id number] [place] [address] [place] Platelets (Bld) [#/Vol] 87 10*3/uL Low 150-400 [facility] Comment on above: Order Comment: Speci men Type: BLOOD SPECIMENOrdering Facility: [facility] Address: [address] [place] [address] Result Comment: No c lot detected. Performed By: #### 5 7021-8 ####[facility] TASHACRISELDA [id number] [place] [address] [place] RBC (Bld) [#/Vol] 4.13 10*6/uL Low 4.20-6.00 [facility] Comment on above: Order Comment: Speci men Type: BLOOD SPECIMENOrdering Facility: [facility] Address: [address] [place] [address] Performed By: #### 5 7021-8 ####[facility] NEVAEHMANASSASROMEOA [id number] [place] [address] [place] WBC (Bld) [#/Vol] 4.14 10*3/uL Normal 3.70-11.00 [facility] Comment on above: Order Comment: Speci men Type: BLOOD SPECIMENOrdering Facility: [facility] Address: [address] [place] [address] Performed By: #### 5 7021-8 ####[facility] NEVAEHMANASSASNCLIA [id number] [place] [address] [place] CNOVon 01-19-2025 CNOV Normal [facility] Ferritin SerPl-mCncon 2024 Ferritin [Mass/Vol] 94.6 ng/mL Normal 30.3-565.7 [facility] Comment on above: Order Comment: Clarita carrasco Type: BLOOD SPECIMENOrdering Facility: [facility] Address: [address] [place] [address] Performed By: #### 2 4321-2 ####[facility] ABEBE [id number] [place] [address] [place]#### 095[address]-8, 2132-9, 2276-4 ####[facility] LABCL[facility] [id number] [address] [address] [place] HbA1c (Bld)on 01-19-2025 Average glucose Estimated from glycated hemoglobin (Bld) [Mass/Vol] 103 mg/dL Normal [facility] Comment on above: Order Comment: Clarita carrasco Type: BLOOD SPECIMENOrdering Facility: [facility] Address: [address] [place] [address] Result Comment: eAG: (Estimated average glucose) is a calculated value from HgbA1c and is manufacturers representative of the average blood glucose level in the last 2-3 month period. Performed By: #### 5 5454-3 ####[facility] LABCL[facility] [id number] [address] [address] [place] HbA1c (Bld) [Mass fraction] 5.2 % Normal 4.3-5.6 [facility] Comment on above: Order Comment: Clarita carrasco Type: BLOOD SPECIMENOrdering Facility: [facility] Address: [address] [place] [address] Result Comment: [place] Diabetes Association guidelines indicate that patients with HgbA1c in the range 5.7-6.4% are at increased risk for development of diabetes, and intervention by lifestyle modification may be beneficial. HgbA1c greater or equal to 6.5% is considered diagnostic of diabetes. Performed By: #### 5 5454-3 ####[facility] [id number] [address] [address] [place] Iron and Iron binding capaci ty panelon 01-19-2025 Iron [Mass/Vol] 51 ug/dL Normal 41-186 [facility] Comment on above: Order Comment: Speci men Type: BLOOD SPECIMENOrdering Facility: [facility] Address: [address] [place] [address] Performed By: #### 2 4321-2 ####[facility] C[facility] COUNTYWNCLIA [id number] [place] [address] [place]#### 17007-8, 2132-05, 2275-12 ####[facility] LABCL[facility] [id number] [address] [address] [place] Iron binding capacity [Mass/Vol] 289 ug/dL Normal 232-386 [facility] Comment on above: Order Comment: Speci men Type: BLOOD SPECIMENOrdering Facility: [facility] Address: [address] [place] [address] Performed By: #### 2 4321-2 ####[facility]USL[facility] [id number] [place] [address] [place]#### 36846-4, 2132-05, 2275-12 ####[facility] LABCL[facility] [id number] [address] [address] [place] Iron/TIBC [Molar ratio] 17.6 % Normal 15.0-57.0 [facility] Comment on above: Order Comment: Speci men Type: BLOOD SPECIMENOrdering Facility: [facility] Address: [address] [place] [address] Performed By: #### 2 4321-2 ####[facility]USL[facility] [id number] [place] [address] [place]#### 87963-7, 2132-05, 2275-12 ####[facility] [id number] [address] [address] [place] Methylmalonate SerPl-sCncon 01-19-2025 Methylmalonate [Moles/Vol] 0.31 umol/L Normal <=0.40 [facility] Comment on above: Order Comment: Speci men Type: BLOOD SPECIMENOrdering Facility: [facility] Address: [address] [place] [address] Result Comment: This test was developed, and its performance characteristics determined by the [facility] Department of Pathology and Laboratory Medicine. It has not been cleared or approved by the FDA. The [facility] Department of Pathology and Laboratory Medicine is regulated under CLIA as qualified to perform high-complexity testing. This test is used for clinical purposes. It should not be regarded as investigational or for research. Performed By: #### 1 3964-2 ####[facility] LABCLIA [id number] [place] [address] [place] Vit B12 SerPl-mCncon 025 Cobalamin (Vitamin B12) [Mass/Vol] 626 pg/mL Normal 232-1245 [facility] Comment on above: Order Comment: Speci men Type: BLOOD SPECIMENOrdering Facility: [facility] Address: [address] [place] [address] Performed By: #### 2 4321-2 ####[facility] [id number] [place] [id number] [place]#### 21383-2, 2132-9, 2276-4 ####[facility] [id number] [place] [address] [place] XR RIBS 2V AP/OBL RTon 01-19 XR RIBS 2V AP/OBL RT Normal [facility] CNPTOUTREACHon 01-16-2025 CNPTOUTREACH Normal [facility] CBC panel Auto (Bld)on 01-15 Erythrocyte distribution width (RBC) [Ratio] 15.7 % High 11.5-15.0 [facility] Comment on above: Order Comment: Speci men Type: BLOOD SPECIMENOrdering Facility: [facility] Address: [address] [place] [address] Performed By: #### 5 8410-2 ####[facility] MIS [id number] [address] [place] Hematocrit (Bld) [Volume fraction] 38.2 % Low 39.0-51.0 [facility] Comment on above: Order Comment: Speci men Type: BLOOD SPECIMENOrdering Facility: [facility] Address: [address] [place] [address] Performed By: #### 5 8410-2 ####[facility] [id number] [place] [address] [place] Hemoglobin (Bld) [Mass/Vol] 11.8 g/dL Low 13.0-17.0 [facility] Comment on above: Order Comment: Speci men Type: BLOOD SPECIMENOrdering Facility: [facility] Address: [address] [place] [address] Performed By: #### 5 8410-2 ####[facility] [id number] [place] [address] [place] MCH (RBC) [Entitic mass] 26.9 pg Normal 26.0-34.0 [facility] Comment on above: Order Comment: Speci men Type: BLOOD SPECIMENOrdering Facility: [facility] Address: [address] [place] [address] Performed By: #### 5 8410-2 ####[facility]ITALVIVIANALIPaul [id number] [place] [address] [place] MCHC (RBC) [Mass/Vol] 30.9 g/dL Normal 30.5-36.0 [facility] Comment on above: Order Comment: Speci men Type: BLOOD SPECIMENOrdering Facility: [facility] Address: [address] [place] [address] Performed By: #### 5 8410-2 ####[facility] MARISELNCLIA [id number] [place] [address] [place] MCV (RBC) [Entitic vol] 87.2 fL Normal 80.0-100.0 [facility] Comment on above: Order Comment: Speci men Type: BLOOD SPECIMENOrdering Facility: [facility] Address: [address] [place] [address] Performed By: #### 5 8410-2 ####[facility]PITALROMEOA [id number] [place] [address] [place] Nucleated RBC (Bld) [#/Vol] 10*3/uL Normal <0.01 [facility] Comment on above: Order Comment: Speci men Type: BLOOD SPECIMENOrdering Facility: [facility] Address: [address] [place] [address] Performed By: #### 5 8410-2 ####[facility]ITALA [id number] [place] [address] [place] Platelet mean volume (Bld) [Entitic vol] 11.0 fL Normal 9.0-12.7 [facility] Comment on above: Order Comment: Speci men Type: BLOOD SPECIMENOrdering Facility: [facility] Address: [address] [place] [address] Performed By: #### 5 8410-2 ####[facility]ITALVIVIANACONCEPCIONA [id number] [place] [address] [place] Platelets (Bld) [#/Vol] 91 10*3/uL Low 150-400 [facility] Comment on above: Order Comment: Speci men Type: BLOOD SPECIMENOrdering Facility: [facility] Address: [address] [place] [address] Result Comment: No c lot detected. Performed By: #### 5 8410-2 ####[facility]OSPITALBRIELLE [id number] [place] [address] [place] RBC (Bld) [#/Vol] 4.38 10*6/uL Normal 4.20-6.00 [facility] Comment on above: Order Comment: Speci men Type: BLOOD SPECIMENOrdering Facility: [facility] Address: [address] [place] [address] Performed By: #### 5 8410-2 ####[facility]PITALBRIELLE [id number] [place] [address] [place] WBC (Bld) [#/Vol] 3.87 10*3/uL Normal 3.70-11.00 [facility] Comment on above: Order Comment: Speci men Type: BLOOD SPECIMENOrdering Facility: [facility] Address: [address] [place] [address] Performed By: #### 5 8410-2 ####[facility]OSPITALBRIELLE [id number] [place] [address] [place] Comprehensive metabolic 2000 panelon 01-15-2025 Albumin [Mass/Vol] 3.6 g/dL Low 3.9-4.9 [facility] Comment on above: Order Comment: Speci men Type: BLOOD SPECIMENOrdering Facility: [facility] Address: [address] [place] [address] Performed By: #### 2 4323-8 ####[facility]PITALBRIELLE [id number] [place] [address] [place] ALP [Catalytic activity/Vol] 183 U/L High 38-113 [facility] Comment on above: Order Comment: Speci men Type: BLOOD SPECIMENOrdering Facility: [facility] Address: [address] [place] [address] Performed By: #### 2 4323-8 ####[facility] CLAY COUNTYWNCLIA [id number] [place] [address] [place] ALT [Catalytic activity/Vol] 14 U/L Normal 10-54 [facility] Comment on above: Order Comment: Speci men Type: BLOOD SPECIMENOrdering Facility: [facility] Address: [address] [place] [address] Performed By: #### 2 4323-8 ####[facility] CLAY COUNTYWOKLIA [id number] [place] [address] [place] Anion gap [Moles/Vol] 6 mmol/L Low 8-15 [facility] Comment on above: Order Comment: Speci men Type: BLOOD SPECIMENOrdering Facility: [facility] Address: [address] [place] [address] Performed By: #### 2 4323-8 ####[facility] CAMPUSLIA [id number] [place] [address] [place] AST [Catalytic activity/Vol] 23 U/L Normal 14-40 [facility] Comment on above: Order Comment: Speci men Type: BLOOD SPECIMENOrdering Facility: [facility] Address: [address] [place] [address] Performed By: #### 2 4323-8 ####[facility]ITALA [id number] [place] [address] [place] Bilirubin [Mass/Vol] 0.5 mg/dL Normal 0.2-1.3 [facility] Comment on above: Order Comment: Speci men Type: BLOOD SPECIMENOrdering Facility: [facility] Address: [address] [place] [address] Performed By: #### 2 4323-8 ####[facility] AKRON CAMPUSLIA [id number] [place] [address] [place] Calcium [Mass/Vol] 9.4 mg/dL Normal 8.5-10.2 [facility] Comment on above: Order Comment: Speci men Type: BLOOD SPECIMENOrdering Facility: [facility] Address: [address] [place] [address] Performed By: #### 2 4323-8 ####[facility] MILLTOWNCLIA [id number] [place] [address] [place] Chloride [Moles/Vol] 103 mmol/L Normal 98-107 [facility] Comment on above: Order Comment: Speci men Type: BLOOD SPECIMENOrdering Facility: [facility] Address: [address] [place] [address] Performed By: #### 2 4323-8 ####[facility] CAMPUSLIA [id number] [place] [address] [place] CO2 [Moles/Vol] 30 mmol/L Normal 22-30 [facility] Comment on above: Order Comment: Speci men Type: BLOOD SPECIMENOrdering Facility: [facility] Address: [address] [place] [address] Performed By: #### 2 4323-8 ####[facility] CAMPUSLIA [id number] [place] [address] [place] Creatinine [Mass/Vol] 1.07 mg/dL Normal 0.73-1.22 [facility] Comment on above: Order Comment: Speci men Type: BLOOD SPECIMENOrdering Facility: [facility] Address: [address] [place] [address] Performed By: #### 2 4323-8 ####[facility] CAMPUSLIA [id number] [place] [address] [place] Creatinine and Glomerular filtration rate.predicted panel (S/P/Bld) 73 mL/min/1.73m??? Normal >=60 [facility] Comment on above: Order Comment: Speci men Type: BLOOD SPECIMENOrdering Facility: [facility] Address: [address] [place] [address] Result Comment: Alvina mated Glomerular Filtration Rate (eGFR) is calculated using the 2020 CKD-EPI creatinine equation. This equation utilizes serum creatinine, sex, and age as parameters. The creatinine assay has traceable calibration to isotope dilution-mass spectrometry. Refer to KDIGO guidelines for clinical interpretation. In patients with unstable renal function, e.g. those with acute kidney injury, the eGFR may not accurately reflect actual GFR. Performed By: #### 2 4323-8 ####[facility] CLAY COUNTYWVIVIANALIA [id number] [place] [address] [place] Glucose [Mass/Vol] 131 mg/dL High 74-99 [facility] Comment on above: Order Comment: Clarita carrasco Type: BLOOD SPECIMENOrdering Facility: [facility] Address: [address] [place] [address] Result Comment: The [place] Diabetes Association (ADA) provides guidance for cutoff values for fasting glucose and random glucose. The ADA defines fasting as no caloric intake for at least 8 hours. Fasting plasma glucose results between 100 to 125 mg/dL indicate increased risk for diabetes (prediabetes).Fasting plasma glucose results greater than or equal to 126 mg/dL meet the criteria for diagnosis of diabetes. In the absence of unequivocal hyperglycemia, results should be confirmed by repeat testing. In a patient with classic symptoms of hyperglycemia or hyperglycemic crisis, random plasma glucose results greater than or equal to 200 mg/dL meet the criteria for diagnosis of diabetes.Reference: Standards of Medical Care in Diabetes 2016, [place] Diabetes Association. Diabetes Care. 2016.39(Suppl 1). Performed By: #### 2 4323-8 ####[facility]RON CAMPUSLIA [id number] [place] [address] [place] Potassium [Moles/Vol] 4.4 mmol/L Normal 3.7-5.1 [facility] Comment on above: Order Comment: Clarita carrasco Type: BLOOD SPECIMENOrdering Facility: [facility] Address: [address] [place] [address] Performed By: #### 2 4323-8 ####[facility]PITALNCLIA [id number] [place] [address] [place] Protein [Mass/Vol] 6.5 g/dL Normal 6.3-8.0 [facility] Comment on above: Order Comment: Speci men Type: BLOOD SPECIMENOrdering Facility: [facility] Address: [address] [place] [address] Performed By: #### 2 4323-8 ####[facility] [id number] [place] [address] [place] Sodium [Moles/Vol] 139 mmol/L Normal 136-144 [facility] Comment on above: Order Comment: Speci men Type: BLOOD SPECIMENOrdering Facility: [facility] Address: [address] [place] [address] Performed By: #### 2 4323-8 ####[facility] [id number] [place] [address] [place] Urea nitrogen [Mass/Vol] 12 mg/dL Normal 9-24 [facility] Comment on above: Order Comment: Speci men Type: BLOOD SPECIMENOrdering Facility: [facility] Address: [address] [place] [address] Performed By: #### 2 4323-8 ####[facility] [id number] [place] [address] [place] HbA1c (Bld)on 01-15-2025 Average glucose Estimated from glycated hemoglobin (Bld) [Mass/Vol] 108 mg/dL Normal [facility] Comment on above: Order Comment: Speci men Type: BLOOD SPECIMENOrdering Facility: [facility] Address: [address] [place] [address] Result Comment: eAG: (Estimated average glucose) is a calculated value from HgbA1c and is manufacturers representative of the average blood glucose level in the last 2-3 month period. Performed By: #### 5 5454-3 ####[facility] LABCLIA [id number] [place] [address] [place] HbA1c (Bld) [Mass fraction] 5.4 % Normal 4.3-5.6 [facility] Comment on above: Order Comment: Clarita carrasco Type: BLOOD SPECIMENOrdering Facility: [facility] Address: [address] [place] [address] Result Comment: [place] Diabetes Association guidelines indicate that patients with HgbA1c in the range 5.7-6.4% are at increased risk for development of diabetes, and intervention by lifestyle modification may be beneficial. HgbA1c greater or equal to 6.5% is considered diagnostic of diabetes. Performed By: #### 5 5454-3 ####[facility] LABCLIA [id number] [place] [address] [place] [facility] Lipid 1996 panelon 5 Cholesterol [Mass/Vol] 122 mg/dL Normal <200 [facility] Comment on above: Order Comment: Clarita danilo Type: BLOOD SPECIMENOrdering Facility: [facility] Address: [address] [place] [address] Result Comment: <200 mg/dL, Desirable 200-239 mg/dL, Borderline high>239 mg/dL, High Performed By: #### 3 016-3 ####[facility] LABCLIA [id number] [address] [place]#### 07394-0 ####[facility] LABCLIA [id number] [address] STATES OF [facility] [id number] [address] STATES OF [facility] Cholesterol in HDL [Mass/Vol] 46 mg/dL Normal >39 [facility] Comment on above: Order Comment: Clarita carrasco Type: BLOOD SPECIMENOrdering Facility: [facility] Address: [address] [place] [address] Result Comment: 40-5 9 mg/dL, Acceptable>59 mg/dL, High: Negative risk factor for coronary heart disease<40 mg/dL, Low: Positive risk factor for coronary heart disease Performed By: #### 3 016-3 ####[facility] LABCLIA [id number] [address] [place]#### 05757-5 ####[facility] LABIA [id number] [address] [id number] [address] [place] Cholesterol in LDL [Mass/Vol] 62 mg/dL Normal <100 [facility] Comment on above: Order Comment: Speci men Type: BLOOD SPECIMENOrdering Facility: [facility] Address: [address] [place] [address] Result Comment: <100 mg/dL, Optimal 100-129 mg/dL, Near optimal/above optimal 130-159 mg/dL, Borderline high 160-189 mg/dL, High>189 mg/dL, Very highSecondary prevention optimal LDL Cholesterol levels are recommended to be <70 mg/dLLDL cholesterol is calculated using the Lopez-NIH equation. Performed By: #### 3 016-3 ####[facility] LABIA [id number] [address] OF [place]#### 41451-6 ####[facility] SYSTEMIA [id number] [address] OF [facility] [id number] [address] [place] Cholesterol in LDL/Cholesterol in HDL [Mass ratio] 1.35 {ratio} Normal <2.54 [facility] Comment on above: Order Comment: Speci men Type: BLOOD SPECIMENOrdering Facility: [facility] Address: [address] [place] [address] Result Comment: Alvaro aguilar:1. National Cholesterol Education Program ATP III Guideline At-A-Glance Quick Desk Reference: National Heart, Lung, and Blood Cameron. National Institutes of Health. 2001: NIH Publication No. 01-3305.2. An International Atherosclerosis Society position paper: global recommendations for the management of dyslipidemia: executive summary, Atherosclerosis. 2014: 232(2):410-413. Performed By: #### 3 016-3 ####[facility] LABCLIA [id number] [address], [address] [place]#### 28396-8 ####[facility] LABCLIA [id number] [facility] [address], [facility] [id number] [place] [address] [place] Cholesterol in VLDL [Mass/Vol] 10 mg/dL Normal <30 [facility] Comment on above: Order Comment: Speci men Type: BLOOD SPECIMENOrdering Facility: [facility] Address: [address] [place] [address] Performed By: #### 3 016-3 ####[facility] LABCLIA [id number] [address] [place]#### 16574-1 ####[facility] LABCLIA [id number] [address], [place] [id number] [place] [address] [place] [facility] Cholesterol non HDL [Mass/Vol] 76 mg/dL Normal <130 [facility] Comment on above: Order Comment: Speci men Type: BLOOD SPECIMENOrdering Facility: [facility] Address: [address] [place] [address] Result Comment: <130 mg/dL, Optimal 130-159 mg/dL, Near optimal/above optimal 160-189 mg/dL, Borderline high 190-219 mg/dL, High>219 mg/dL, Very highSecondary prevention optimal non HDL Cholesterol levels are recommended to be <100 mg/dL Performed By: #### 3 016-3 ####[facility] LABCLIA [id number] [place] [address] [place]#### 00661-1 ####[facility] LABCLIA [id number] [address], [facility] [place] [facility] [id number] [place] [address] [place] Cholesterol.total/C holesterol in HDL [Mass ratio] 2.65 {ratio} Normal <5.10 [facility] Comment on above: Order Comment: Speci men Type: BLOOD SPECIMENOrdering Facility: [facility] Address: [address] [place] [address] Performed By: #### 3 016-3 ####[facility] LABCLIA [id number] [place] [address] [place]#### 39251-4 ####[facility] LABCLIA [id number] [place] [address] [place] [facility] [id number] [place] [address] [place] FASTING TIME 12 hrs Normal [facility] Comment on above: Order Comment: Speci men Type: BLOOD SPECIMENOrdering Facility: [facility] Address: [address] [place] [address] Performed By: #### 3 016-3 ####[facility] LABCLIA [id number] [place] [address] [place]#### 77143-6 ####[facility] LABCLIA [id number] [address], [facility]95 [place] [facility]UN[facility] [id number] [place] [address] [place] Triglyceride [Mass/Vol] 67 mg/dL Normal <150 [facility] Comment on above: Order Comment: Speci men Type: BLOOD SPECIMENOrdering Facility: [facility] Address: [address] [place] [address] Result Comment: <150 mg/dL, Normal 150-199 mg/dL, Borderline high 200-499 mg/dL, High>499 mg/dL, Very high Performed By: #### 3 016-3 ####[facility] LABCLIA [id number] [place] [address] [place]#### 30893-0 ####[facility] LABIA [id number] [address] [id number] [place] [address] [place] TSH SerPl-aCncon 01-15-2025 TSH Qn 4.660 m[IU]/L High 0.270-4.200 [facility] Comment on above: Order Comment: Speci men Type: BLOOD SPECIMENOrdering Facility: [facility] Address: [address] [place] [address] Performed By: #### 3 016-3 ####[facility] LABIA [id number] [address] [place]#### 46728-1 ####[facility] LABIA [id number] [address] STATES [facility] [id number] [place] [address] [place] PT panel Coag (PPP)on 2024 INR Coag (Bld) [Relative time] 1 {INR} [facility] CNPNon 01-01-2025 CNPN Normal [facility] CNPNon 12-31-2024 CNPN Normal [facility] CNPNon 12-24-2024 CNPN Normal [facility] PT panel Coag (PPP)on 2024 INR Coag (Bld) [Relative time] 1.5 {INR} [facility] CBC W Auto Differential pane l (Bld)on 12-19-2024 Basophils (Bld) [#/Vol] 0.08 10*3/uL [facility] Basophils/100 WBC (Bld) 1.6 % [facility] Differential cell count method Nom (Bld) Auto [facility] Eosinophils (Bld) [#/Vol] 0.26 10*3/uL [facility] Eosinophils/100 WBC (Bld) 5.2 % [facility] Erythrocyte distribution width (RBC) [Ratio] 15.4 % High 11.5 - 15.0 % [facility] Hematocrit (Bld) [Volume fraction] 36.9 % Low 39.0 - 51.0 % [facility] Hemoglobin (Bld) [Mass/Vol] 11.3 g/dL Low 13.0 - 17.0 g/dL [facility] Immature granulocytes (Bld) [#/Vol] [facility] Immature granulocytes/100 WBC (Bld) 0.2 % [facility] Interpretation and review of laboratory results Abnormal [facility] Lymphocytes (Bld) [#/Vol] 1.23 10*3/uL [facility] Lymphocytes/100 WBC (Bld) 24.5 % [facility] MCH (RBC) [Entitic mass] 27 pg 26.0 - 34.0 pg [facility] MCHC (RBC) [Mass/Vol] 30.6 g/dL 30.5 - 36.0 g/dL [facility] MCV (RBC) [Entitic vol] 88.1 fL 80.0 - 100.0 fL [facility] Monocytes (Bld) [#/Vol] 0.41 10*3/uL [facility] Monocytes/100 WBC (Bld) 8.2 % [facility] Neutrophils (Bld) [#/Vol] 3.04 10*3/uL [facility] Neutrophils/100 WBC (Bld) 60.3 % [facility] Nucleated RBC (Bld) [#/Vol] [facility] Nucleated RBC/100 WBC (Bld) [Ratio] 0 % /100 WBC [facility] Platelet mean volume (Bld) [Entitic vol] 11.1 fL 9.0 - 12.7 fL [facility] Platelets (Bld) [#/Vol] 116 10*3/uL Low [facility] RBC (Bld) [#/Vol] 4.19 10*6/uL Low 4.20 - 6.0 0 m/uL [facility] WBC (Bld) [#/Vol] 5.03 10*3/uL [facility] Basophils (Bld) [#/Vol] 0.08 10*3/uL Normal <0.11 [facility] Comment on above: Order Comment: Speci men Type: BLOOD SPECIMENOrdering Facility: [facility] Address: [address] [place] [address] Performed By: #### 5 7021-8 ####[facility] LABCLIA [id number] [place] [address] [place] Basophils/100 WBC (Bld) 1.6 % Normal [facility] Comment on above: Order Comment: Speci men Type: BLOOD SPECIMENOrdering Facility: [facility] Address: [address] [place] [address] Performed By: #### 5 7021-8 ####[facility] LABCLIA [id number] [place] [address] [place] Differential cell count method Nom (Bld) Auto Normal [facility] Comment on above: Order Comment: Speci men Type: BLOOD SPECIMENOrdering Facility: [facility] Address: [address] [place] [address] Performed By: #### 5 7021-8 ####[facility] LABCLIA [id number] [place] [address] [place] Eosinophils (Bld) [#/Vol] 0.26 10*3/uL Normal <0.46 [facility] Comment on above: Order Comment: Speci men Type: BLOOD SPECIMENOrdering Facility: [facility] Address: [address] [place] [address] Performed By: #### 5 7021-8 ####[facility] LABCLIA [id number] [place] [address] [place] Eosinophils/100 WBC (Bld) 5.2 % Normal [facility] Comment on above: Order Comment: Speci men Type: BLOOD SPECIMENOrdering Facility: [facility] Address: [address] [place] [address] Performed By: #### 5 7021-8 ####[facility] LABCL[facility] [id number] [place] [address] [place] Erythrocyte distribution width (RBC) [Ratio] 15.4 % High 11.5-15.0 [facility] Comment on above: Order Comment: Speci men Type: BLOOD SPECIMENOrdering Facility: [facility] Address: [address] [place] [address] Performed By: #### 5 7021-8 ####[facility] LABCLIA [id number] [address], [place] [address] [place] Hematocrit (Bld) [Volume fraction] 36.9 % Low 39.0-51.0 [facility] Comment on above: Order Comment: Speci men Type: BLOOD SPECIMENOrdering Facility: [facility] Address: [address] [place] [address] Performed By: #### 5 7021-8 ####[facility] LABCLIA [id number] [address], [place] [address] [place] Hemoglobin (Bld) [Mass/Vol] 11.3 g/dL Low 13.0-17.0 [facility] Comment on above: Order Comment: Speci men Type: BLOOD SPECIMENOrdering Facility: [facility] Address: [address] [place] [address] Performed By: #### 5 7021-8 ####[facility] LABCL[facility] [id number] [place] [address] [place] Immature granulocytes (Bld) [#/Vol] 10*3/uL Normal <0.10 [facility] Comment on above: Order Comment: Speci men Type: BLOOD SPECIMENOrdering Facility: [facility] Address: [address] [place] [address] Performed By: #### 5 7021-8 ####[facility] LABCLIA [id number] [place] [address] [place] Immature granulocytes/100 WBC (Bld) 0.2 % Normal [facility] Comment on above: Order Comment: Speci men Type: BLOOD SPECIMENOrdering Facility: [facility] Address: [address] [place] [address] Performed By: #### 5 7021-8 ####[facility]CL[facility] [id number] [place] [address] [place] Lymphocytes (Bld) [#/Vol] 1.23 10*3/uL Normal 1.00-4.00 [facility] Comment on above: Order Comment: Speci men Type: BLOOD SPECIMENOrdering Facility: [facility] Address: [address] [place] [address] Performed By: #### 5 7021-8 ####[facility] LABIA [id number] [place] [address] [place] Lymphocytes/100 WBC (Bld) 24.5 % Normal [facility] Comment on above: Order Comment: Speci men Type: BLOOD SPECIMENOrdering Facility: [facility] Address: [address] [place] [address] Performed By: #### 5 7021-8 ####[facility] LABCL[facility] [id number] [place] [address] [place] MCH (RBC) [Entitic mass] 27.0 pg Normal 26.0-34.0 [facility] Comment on above: Order Comment: Speci men Type: BLOOD SPECIMENOrdering Facility: [facility] Address: [address] [place] [address] Performed By: #### 5 7021-8 ####[facility] LABCLIA [id number] [place] [id number] [place] MCHC (RBC) [Mass/Vol] 30.6 g/dL Normal 30.5-36.0 [facility] Comment on above: Order Comment: Speci men Type: BLOOD SPECIMENOrdering Facility: [facility] Address: [address] [place] [address] Performed By: #### 5 7021-8 ####[facility]CL[facility] [id number] [place] [address] [place] MCV (RBC) [Entitic vol] 88.1 fL Normal 80.0-100.0 [facility] Comment on above: Order Comment: Speci men Type: BLOOD SPECIMENOrdering Facility: [facility] Address: [address] [place] [address] Performed By: #### 5 7021-8 ####[facility] [id number] [place] [address] [place] Monocytes (Bld) [#/Vol] 0.41 10*3/uL Normal <0.87 [facility] Comment on above: Order Comment: Speci men Type: BLOOD SPECIMENOrdering Facility: [facility] Address: [address] [place] [address] Performed By: #### 5 7021-8 ####[facility] LABIA [id number] [address] [place] Monocytes/100 WBC (Bld) 8.2 % Normal [facility] Comment on above: Order Comment: Speci men Type: BLOOD SPECIMENOrdering Facility: [facility] Address: [address] [place] [address] Performed By: #### 5 7021-8 ####[facility] [id number] [place] [address] [place] Neutrophils (Bld) [#/Vol] 3.04 10*3/uL Normal 1.45-7.50 [facility] Comment on above: Order Comment: Speci men Type: BLOOD SPECIMENOrdering Facility: [facility] Address: [address] [place] [address] Performed By: #### 5 7021-8 ####[facility] [id number] [place] [address] [place] Neutrophils/100 WBC (Bld) 60.3 % Normal [facility] Comment on above: Order Comment: Speci men Type: BLOOD SPECIMENOrdering Facility: [facility] Address: [address] [place] [address] Performed By: #### 5 7021-8 ####[facility] [id number] [place] [address] [place] Nucleated RBC (Bld) [#/Vol] 10*3/uL Normal <0.01 [facility] Comment on above: Order Comment: Speci men Type: BLOOD SPECIMENOrdering Facility: [facility] Address: [address] [place] [address] Performed By: #### 5 7021-8 ####[facility] [id number] [place] [address] [place] Nucleated RBC/100 WBC (Bld) [Ratio] 0.0 /100 WBC Normal [facility] Comment on above: Order Comment: Speci men Type: BLOOD SPECIMENOrdering Facility: [facility] Address: [address] [place] [address] Performed By: #### 5 7021-8 ####[facility] [id number] [place] [address] [place] Platelet mean volume (Bld) [Entitic vol] 11.1 fL Normal 9.0-12.7 [facility] Comment on above: Order Comment: Speci men Type: BLOOD SPECIMENOrdering Facility: [facility] Address: [address] [place] [address] Performed By: #### 5 7021-8 ####[facility] [id number] [address] [address] [place] Platelets (Bld) [#/Vol] 116 10*3/uL Low 150-400 [facility] Comment on above: Order Comment: Speci men Type: BLOOD SPECIMENOrdering Facility: [facility] Address: [address] [place] [address] Performed By: #### 5 7021-8 ####[facility] [id number] [place] [id number] [place] RBC (Bld) [#/Vol] 4.19 10*6/uL Low 4.20-6.00 [facility] Comment on above: Order Comment: Speci men Type: BLOOD SPECIMENOrdering Facility: [facility] Address: [address] [place] [address] Performed By: #### 5 7021-8 ####[facility] [id number] [place] [address] [place] WBC (Bld) [#/Vol] 5.03 10*3/uL Normal 3.70-11.00 [facility] Comment on above: Order Comment: Speci men Type: BLOOD SPECIMENOrdering Facility: [facility] Address: [address] [place] [address] Performed By: #### 5 7021-8 ####[facility] [id number] [place] [id number] [place] CNOVon 12-19-2024 CNOV Normal [facility] Comprehensive metabolic 2000 panelon 12-19-2024 Albumin [Mass/Vol] 3.2 g/dL Low 3.9-4.9 [facility] Comment on above: Order Comment: Speci men Type: BLOOD SPECIMENOrdering Facility: [facility] Address: [address] [place] [address] Performed By: #### 3 3762-6, 48292-5, 3016-3 ####[facility] [id number] [place] [id number] [place] ALP [Catalytic activity/Vol] 181 U/L High 38-113 [facility] Comment on above: Order Comment: Speci men Type: BLOOD SPECIMENOrdering Facility: [facility] Address: [address] [place] [address] Performed By: #### 3 3762-6, 61627-9, 3016-3 ####[facility] [id number] [place] [address] [place] ALT [Catalytic activity/Vol] 22 U/L Normal 10-54 [facility] Comment on above: Order Comment: Speci men Type: BLOOD SPECIMENOrdering Facility: [facility] Address: [address] [place] [address] Performed By: #### 3 3762-6, 59742-7, 3016-3 ####[facility] [id number] [place] [address] [place] Anion gap [Moles/Vol] 9 mmol/L Normal 8-15 [facility] Comment on above: Order Comment: Speci men Type: BLOOD SPECIMENOrdering Facility: [facility] Address: [address] [place] [address] Performed By: #### 3 3762-6, 92925-9, 3016-3 ####[facility] [id number] [place] [address] [place] AST [Catalytic activity/Vol] 26 U/L Normal 14-40 [facility] Comment on above: Order Comment: Speci men Type: BLOOD SPECIMENOrdering Facility: [facility] Address: [address] [place] [address] Performed By: #### 3 3762-6, 85808-3, 3016-3 ####[facility] [id number] [address], [facility] [place] Bilirubin [Mass/Vol] 0.3 mg/dL Normal 0.2-1.3 [facility] Comment on above: Order Comment: Speci men Type: BLOOD SPECIMENOrdering Facility: [facility] Address: [address] [place] [address] Performed By: #### 3 3762-6, 54790-5, 3015-3 ####[facility] [id number] [facility] [address] [place] [address] [place] Calcium [Mass/Vol] 8.2 mg/dL Low 8.5-10.2 [facility] Comment on above: Order Comment: Speci men Type: BLOOD SPECIMENOrdering Facility: [facility] Address: [address] [place] [address] Performed By: #### 3 3762-6, , 3 ####[facility] [id number] [facility] [place] [id number] [place] Chloride [Moles/Vol] 106 mmol/L Normal 98-107 [facility] Comment on above: Order Comment: Speci men Type: BLOOD SPECIMENOrdering Facility: [facility] Address: [address] [place] [address] Performed By: #### 3 3762-6, , 3 ####[facility] [id number] [facility] [address] [place] [address] [place] CO2 [Moles/Vol] 25 mmol/L Normal 22-30 [facility] Comment on above: Order Comment: Speci men Type: BLOOD SPECIMENOrdering Facility: [facility] Address: [address] [place], [place] [address] Performed By: #### 3 3762-6, 90914-2, 3015-3 ####[facility] [id number] [facility] [id number] [address] [place] Creatinine [Mass/Vol] 1.18 mg/dL Normal 0.73-1.22 [facility] Comment on above: Order Comment: Speci men Type: BLOOD SPECIMENOrdering Facility: [facility] Address: [address] [place] [id number] Performed By: #### 3 3762-6, 11447-2, 3016-3 ####[facility] [id number] [place] [id number] [place] Creatinine and Glomerular filtration rate.predicted panel (S/P/Bld) 65 mL/min/1.73m??? Normal >=60 [facility] Comment on above: Order Comment: Clarita carrasco Type: BLOOD SPECIMENOrdering Facility: [facility] Address: [address] [place] [address] Result Comment: Alvina mated Glomerular Filtration Rate (eGFR) is calculated using the 2020 CKD-EPI creatinine equation. This equation utilizes serum creatinine, sex, and age as parameters. The creatinine assay has traceable calibration to isotope dilution-mass spectrometry. Refer to KDIGO guidelines for clinical interpretation. In patients with unstable renal function, e.g. those with acute kidney injury, the eGFR may not accurately reflect actual GFR. Performed By: #### 3 3762-6, 14453-6, 3016-3 ####[facility] [id number] [place] [id number] [place] Glucose [Mass/Vol] 90 mg/dL Normal 74-99 [facility] Comment on above: Order Comment: Clarita danilo Type: BLOOD SPECIMENOrdering Facility: [facility] Address: [address] [place] [address] Result Comment: The [place] Diabetes Association (ADA) provides guidance for cutoff values for fasting glucose and random glucose. The ADA defines fasting as no caloric intake for at least 8 hours. Fasting plasma glucose results between 100 to 125 mg/dL indicate increased risk for diabetes (prediabetes).Fasting plasma glucose results greater than or equal to 126 mg/dL meet the criteria for diagnosis of diabetes. In the absence of unequivocal hyperglycemia, results should be confirmed by repeat testing. In a patient with classic symptoms of hyperglycemia or hyperglycemic crisis, random plasma glucose results greater than or equal to 200 mg/dL meet the criteria for diagnosis of diabetes.Reference: Standards of Medical Care in Diabetes 2016, [place] Diabetes Association. Diabetes Care. 2016.39(Suppl 1). Performed By: #### 3 3762-6, 04227-2, 3016-3 ####[facility] [id number] [address] [address] [place] Potassium [Moles/Vol] 5.6 mmol/L High 3.7-5.1 [facility] Comment on above: Order Comment: Speci men Type: BLOOD SPECIMENOrdering Facility: [facility] Address: [address] [place], [place] [address] Performed By: #### 3 3762-6, 53617-7, 6-3 ####[facility] [id number] [address] [address] [place] Protein [Mass/Vol] 5.8 g/dL Low 6.3-8.0 [facility] Comment on above: Order Comment: Speci men Type: BLOOD SPECIMENOrdering Facility: [facility] Address: [address] [place] [address] Performed By: #### 3 3762-6, 42679-6, 6-3 ####[facility] [id number] [address] [address] [place] Sodium [Moles/Vol] 140 mmol/L Normal 136-144 [facility] Comment on above: Order Comment: Speci men Type: BLOOD SPECIMENOrdering Facility: [facility] Address: [address] [place] [address] Performed By: #### 3 3762-6, 90069-8, 6-3 ####[facility] [id number] [address] [address] [place] Urea nitrogen [Mass/Vol] 13 mg/dL Normal 9-24 [facility] Comment on above: Order Comment: Speci men Type: BLOOD SPECIMENOrdering Facility: [facility] Address: [address] [place] [address] Performed By: #### 3 3762-6, 43130-1, 6-3 ####[facility] [id number] [place] [id number] [facility] HbA1c (Bld)on 12-19-2024 Average glucose Estimated from glycated hemoglobin (Bld) [Mass/Vol] 97 mg/dL Normal [facility] Comment on above: Order Comment: Speci men Type: BLOOD SPECIMENOrdering Facility: [facility] Address: [address] [place] [address] Result Comment: eAG: (Estimated average glucose) is a calculated value from HgbA1c and is manufacturers representative of the average blood glucose level in the last 2-3 month period. Performed By: #### 5 5454-3 ####[facility] [id number] [address] HbA1c (Bld) [Mass fraction] 5.0 % Normal 4.3-5.6 [facility] Comment on above: Order Comment: Clarita carrasco Type: BLOOD SPECIMENOrdering Facility: [facility] Address: [address] [place] [address] Result Comment: [place] Diabetes Association guidelines indicate that patients with HgbA1c in the range 5.7-6.4% are at increased risk for development of diabetes, and intervention by lifestyle modification may be beneficial. HgbA1c greater or equal to 6.5% is considered diagnostic of diabetes. Performed By: #### 5 5454-3 ####[facility] [id number] [address] [address] [facility] NT-proBNP [facility] 12-19 Natriuretic peptide.B prohormone N-Terminal [Mass/Vol] 2901 pg/mL High <125 [facility] Comment on above: Order Comment: Clarita men Type: BLOOD SPECIMENOrdering Facility: [facility] Address: [address] [place] [address] Performed By: #### 3 3762-6, 44177-5, 6-3 ####[facility] [id number] [place] [address] [place] TSH SerPl-aCncon 12-19-2024 TSH Qn 2.530 m[IU]/L Normal 0.270-4.200 [facility] Comment on above: Order Comment: Speci men Type: BLOOD SPECIMENOrdering Facility: [facility] Address: [facility] [place] [address] Performed By: #### 3 3762-6, 31311-6, 3016-3 ####[facility] [id number] [place] [address] [place] CNPNon 12-17-2024 CNPN Normal [facility] CNPNon 12-10-2024 CNPN Normal [facility] CNPTOUTREACHon 12-02-2024 CNPTOUTREACH Normal [facility] CNPTOUTREACHon 11-28-2024 CNPTOUTREACH Normal [facility] CNPTOUTREACHon 11-27-2024 CNPTOUTREACH Normal [facility] CNPNon 11-19-2024 CNPN Normal [facility] PT panel Coag (PPP)on 2024 INR Coag (Bld) [Relative time] 2.5 {INR} [facility] Urine Cultureon 11-12-2024 [facility] Pseudomonas aerugino sa [place] Count 80,000-100,000 Pseudomonas aeruginosa: REACTION Cefepime Islt JUANA 4 Ciprofloxacin Islt JUANA 0.12 S levoFLOXacin Islt JUANA 0.5 S Meropenem Islt JUANA 1 S Pip+Tazo Islt JUANA 16 S Normal [facility] Comment on above: Performed By: #### M 100.2200 ####[facility] [address] [facility] [place], [place], [id number] 12 Lead EKGon 11-10-2024 12 Lead EKG [facility] Cardiovascular Services [address] [place] [address] 12 Lead EKG 11/10/24 1005 MR#: [id number] Acct: [id number] Name: AYZAN NOLASCO Rep #: [id number] : 1950 74 From: Luana Matos MD Attending Dr: Status: DEP ER Ordering Dr: Vladimir Tavarez DO Date: 11/10/24 Location: ED Sex: M C Admitted: Test Reason : Blood Pressure : */* mmHG Vent. Rate : 76 BPM Atrial Rate : * BPM P-R Int : * ms QRS Dur : 94 ms QT Int : 480 ms P-R-T Axes : * -30 265 degrees QTcB Int : 540 ms Atrial fibrillation with frequent ventricular-paced complexes Left axis deviation ST Marked T wave abnormality-possible post paced changes Prolonged QT Abnormal ECG Confirmed by Luana Matos ([id number]), manuscript editor EDUARDO DERAS ([id number]) on 11/11/2024 10:58:45 AM Referred By: Confirmed By: Luana Matos 11/11/24 1058 Date Luana Matos MD CC: Dr. Dee Ashley MD; Dr. Vladimir Tavarez DO Signed Normal [facility] Abdomen/Pelvis W IV Cont ONL Yo 11-10-2024 Abdomen/Pelvis W IV Cont ONLY [facility] Imaging Services [address] [place] [address] Abdomen/Pelvis W IV Cont ONLY MR#: [id number] Acct: [id number] Name: YAZAN NOLASCO Rep #: [id number] : 1950 M 74 From: Davon edmond MD PCP: Dr. Dee Ashley MD Status: REG ER Study: Abdomen/Pelvis W IV Cont ONLY Date of Exam: Exam# [id number] Ordering Dr: Vladimir Tavarez DO PROCEDURE: ABDOMEN/PELVIS W IV CONT ONLY REASON FOR EXAM: Nausea, vomiting and back pain. TECHNIQUE: Abdomen and pelvis CT with intravenous contrast. IV CONTRAST: 100 cc of Isovue-300. COMPARISON: Comparison is made with prior study dated October 10, 2024. FINDINGS: Coronary artery calcifications. A dual-chamber pacemaker is seen. Lung bases: Tiny left pleural effusion with left basilar infiltration and/or atelectasis. Mild increased markings at the right lung base. Liver: Unremarkable. Gallbladder: Status post cholecystectomy. Spleen: Unremarkable. Pancreas: Unremarkable. Adrenals: Unremarkable. Kidneys: There is a 3.6 cm cyst in the upper pole of the right kidney. Bladder: There is a mild degree of diffuse urinary bladder wall thickening. Stable prostatic enlargement with indentation of the bladder base. Reproductive Organs: Unremarkable. Bowel: Colonic diverticulosis without diverticulitis. Appendix: Normal. Lymph nodes: No suspicious lymph node enlargement. Vasculature: Mild diffuse atherosclerotic calcifications of the abdominal aorta and the major visceral branches. Are noted. Peritoneum / Retroperitoneum: No ascites. No free air. Bones: Degenerative changes of the spine. CT/Abdomen/Pelvis W IV Cont ONLY IMPRESSION: Tiny left pleural effusion with left basilar infiltration and/or atelectasis. Minimal increased markings at the right lung base. Status post cholecystectomy. Stable cyst in the upper pole of the left kidney. Sigmoid diverticulosis. Mild degree of diffuse bladder wall thickening. One or more dose reduction techniques were used (e.g., Automated exposure control, adjustment of the mA and/or kV according to patient size, use of iterative reconstruction technique). Reading Location: [id number] CC: Dr. Dee Ashley MD; Dr. Vladimir Tavarez DO Feed Blender: Signed Normal [facility] CBC W/Diff, Automatedon 03- Absolute Lymph 0.73 X10 3/uL Low 0.83-4.51 [facility] Comment on above: Performed By: #### L 501.080 #### [facility] [address] [place], [address] Absolute Neut 4.3 X10 3/uL Normal 2.0-7.7 [facility] Comment on above: Performed By: #### L 501.080 #### [facility] [address] [place], [address] Basophils/100 WBC (Bld) 0.4 % Normal 0-1 [facility] Comment on above: Performed By: #### L 501.080 #### [facility] [address] [place], [address] Eosinophils/100 WBC (Bld) 0.9 % Normal 0-5 [facility] Comment on above: Performed By: #### L 501.080 #### [facility] [address] [place], [address] Erythrocyte distribution width (RBC) [Ratio] 16.1 % High 11.6-14.6 [facility] Comment on above: Performed By: #### L 501.080 #### [facility] [address] [place], [address] Hematocrit (Bld) [Volume fraction] 36.7 % Low 40-54 [facility] Comment on above: Performed By: #### L 501.080 #### [facility] [address] [place], [address] Hemoglobin (Bld) [Mass/Vol] 11.7 g/dL Low 13.0-16.5 [facility] Comment on above: Performed By: #### L 501.080 #### [facility] [address] [place], [address] IG% 0.400 Normal 0.0-0.9 [facility] Comment on above: Result Comment: IG% - Immature Granulocytes (promyelocytes, myelocytes and metamyelocytes) > 1% indicates that a LEFT SHIFT is Present. Performed By: #### L 501.080 #### [facility] [address] [place], [address] Lymphocytes/100 WBC (Bld) 13.1 % Low 19-41 [facility] Comment on above: Performed By: #### L 501.080 #### [facility] [address] [place], [address] MCH (RBC) [Entitic mass] 27.2 pg Normal 27.0-32.0 [facility] Comment on above: Performed By: #### L 501.080 #### [facility] [address] [place], [address] MCHC (RBC) [Mass/Vol] 31.9 g/dL Low 32-36 [facility] Comment on above: Performed By: #### L 501.080 #### [facility] [address] [place], [address] MCV (RBC) [Entitic vol] 85.3 fL Normal 80-94 [facility] Comment on above: Performed By: #### L 501.080 #### [facility] [address] [place], [address] Monocytes/100 WBC (Bld) 8.3 % Normal 0-10 [facility] Comment on above: Performed By: #### L 501.080 #### [facility] [address] [place], [address] Neutrophils/100 WBC (Bld) 76.9 % High 47-70 [facility] Comment on above: Performed By: #### L 501.080 #### [facility] [address] [place], [address] Nucleated RBC (Bld) [#/Vol] 0 10*3/uL Normal 0-5 [facility] Comment on above: Performed By: #### L 501.080 #### [facility] [address] [place], [address] Platelet mean volume (Bld) [Entitic vol] 9.7 fL Normal 6.2-12.0 [facility] Comment on above: Performed By: #### L 501.080 #### [facility] [address] [place], [address] Platelets (Bld) [#/Vol] 141 10*3/uL Low 150-450 [facility] Comment on above: Performed By: #### L 501.080 #### [facility] [address] [place], [address] RBC (Bld) [#/Vol] 4.30 10*6/uL Low 4.6-6.2 [facility] Comment on above: Performed By: #### L 501.080 #### [facility] [address] [place], [address] RDW SD 49.3 fl High 35.1-43.9 [facility] Comment on above: Performed By: #### L 501.080 #### [facility] [address] [place], [address] WBC (Bld) [#/Vol] 5.6 10*3/uL Normal 4.4-11.0 [facility] Comment on above: Performed By: #### L 501.080 #### [facility] [address] [place], [address] CNPNon 11-10-2024 CNPN Normal [facility] ilon 11-10-2024 Albumin [Mass/Vol] 2.9 g/dL Low 3.4-4.8 [facility] Comment on above: Performed By: #### L 501.080 #### [facility] [address] [place], [address] Albumin/Globulin [Mass ratio] 1.0 {ratio} Normal 0.9-2.4 [facility] Comment on above: Performed By: #### L 501.080 #### [facility] [address] [place], [address] ALK PHOS 150 U/L High 40-129 [facility] Comment on above: Performed By: #### L 501.080 #### [facility] [address] [place], [address] ALT [Catalytic activity/Vol] 8 U/L Normal <=46 [facility] Comment on above: Performed By: #### L 501.080 #### [facility] [address] [place], [address] Anion gap [Moles/Vol] 9 mmol/L Normal 5-15 [facility] Comment on above: Performed By: #### L 501.080 #### [facility] [address] [place], [address] AST [Catalytic activity/Vol] 18 U/L Normal <=37 [facility] Comment on above: Performed By: #### L 501.080 #### [facility] [address] [place], [address] Bilirubin [Mass/Vol] 0.47 mg/dL Normal 0.00-1.30 [facility] Comment on above: Performed By: #### L 501.080 #### [facility] [address] [place], [address] BUN/CRE 9.8 RATIO Low 10-20 [facility] Comment on above: Performed By: #### L 501.080 #### [facility] [address] [place], [address] Calcium [Mass/Vol] 8.0 mg/dL Normal 7.6-11.0 [facility] Comment on above: Performed By: #### L 501.080 #### [facility] [address] [place], [address] Chloride [Moles/Vol] 104 mmol/L Normal 96-108 [facility] Comment on above: Performed By: #### L 501.080 #### [facility] [address] [place], [address] CO2 [Moles/Vol] 25.9 mmol/L Normal 22.0-29.0 [facility] Comment on above: Performed By: #### L 501.080 #### [facility] [address] [place], [address] Creatinine [Mass/Vol] 1.26 mg/dL High 0.70-1.20 [facility] Comment on above: Performed By: #### L 501.080 #### [facility] [address] [place], [address] ECRCL 60.43 ml/min Normal 50-250 [facility] Comment on above: Performed By: #### L 501.080 #### [facility] [address] [place], [address] GFR/1.73 sq M.predicted among non-blacks MDRD (S/P/Bld) [Vol rate/Area] 60 mL/min/{1.73_m2} Normal >60 [facility] Comment on above: Result Comment: mL/m in/1.73m2 CKD-EPI Creatinine Equation (2020) Performed By: #### L 501.080 #### [facility] [address] [place], [address] Globulin (S) [Mass/Vol] 2.9 g/dL Normal 2.2-4.2 [facility] Comment on above: Performed By: #### L 501.080 #### [facility] [address] [place], [address] Glucose [Mass/Vol] 117 mg/dL High 70-99 [facility] Comment on above: Performed By: #### L 501.080 #### [facility] [address] [place], [address] Potassium [Moles/Vol] 4.1 mmol/L Normal 3.3-5.1 [facility] Comment on above: Performed By: #### L 501.080 #### [facility] [address] [place], [address] Sodium [Moles/Vol] 138 mmol/L Normal 133-145 [facility] Comment on above: Performed By: #### L 501.080 #### [facility] [address] [place], [place], [address] T PROT 5.8 g/dL Low 5.9-8.4 [facility] Comment on above: Performed By: #### L 501.080 #### [facility] [address] [place], [place], [address] Urea nitrogen [Mass/Vol] 12 mg/dL Normal 4-19 [facility] Comment on above: Performed By: #### L 501.080 #### [facility] [address] [place], [place], [address] Emergency Department Summary on 11-10-2024 Emergency Department Summary [facility] Medical Records Department [address] [place] [address] Emergency Department Summary 11/10/24 MR#: [id number] Acct: [id number] Name: YAZAN NOLASCO Rep #: [id number] : 1950 74 From: Vladimir Tavarez DO PCP: Dr. eDe Ashley MD Status:REG ER Location: ED HPI History of Present Illness Chief Complaint: Complaint Narrative Narrative: Patient is a 74-year-old male with a past medical history of atrial fibrillation on warfarin, hypertension, diabetes, ICD, [place] who presented to the emergency department chief complaint of back pain. According to the patient's at bedside he was complaining of of back pain nausea vomiting and states that he had a recent kidney stone with infection that had to be broken up. States that ever since this he has not been his normal self. She states that he is more confused ever since the procedure and it has not been normal. She states that today he has not had any vomiting but is concerned that he has another kidney stone therefore he came here for the valuation management. [facility] Medical History Injury of head and neck Cancer Hepatitis Former smoker CPAP (continuous positive airway pressure) dependence Sleep apnea Atrial fibrillation ICD (implantable cardioverter-defibrillator) in place Pacemaker Hypertension Acute calculous cholecystitis Hyperlipemia Diabetic neuropathy HTN (hypertension) Diabetes Home Medications ???Medication ???Instructions ???Recorded ???Last Taken ???Type allopurinol 100 mg tablet 200 mg PO DAILYCM GOUT 05/12/14 History aspirin 81 mg chewable tablet 81 mg PO DAILY@0800 HEALTH 4 10/08/24 History atorvastatin 20 mg tablet 20 mg PO QODAY CHOLESTEROL 4 10/07/24 History duloxetine 60 mg capsule,delayed 60 mg PO DAILY MOOD 05/12/1410/09 History release hydrochlorothiazide 25 mg tablet 25 mg PO DAILY BP 05/12/14 5 History Held on 10/13/24. Instructions: Hold for 1 week and restart at lower dose 12.5 mg daily. lisinopril 40 mg tablet 40 mg PO DAILY BP 05/12/14 5 History Held on 10/13/24. Instructions: Hold for 1 week and follow with BMP with PCP potassium chloride 10 mEq 10 meq PO BID SUPPLEMENT 05/12/14 10/09/24 History tablet,extended release (Klor-Con) acetaminophen 500 mg tablet 1,000 mg PO BID PRN Pain 06/09/21 06/09/21 07:00 History amlodipine 5 mg tablet 5 mg PO DAILY BP 06/09/21 10/09/24 History magnesium oxide 400 mg PO BID SUPPLEMENT 06/09/21 10/09/24 History metoprolol tartrate 100 mg tablet 100 mg PO BID HEART 06/09/2109/12 History tamsulosin 0.4 mg capsule 0.8 mg PO DAILY PROSTATE 06/09/21 10/08/24 History warfarin 5 mg tablet 5 mg PO MOTUWETH BLOODTHINNER 05/1310/09/24 History apremilast 30 mg tablet (Otezla) 30 mg PO DAILY ARTHRITIS 10/09/24 10/08/24 History bupropion HCl 150 mg 24 hr tablet, 150 mg PO DAILY MOOD 10/09/24 History extended release clobetasol 0.05 % scalp solution See Rx Instructions topical 10/08/24 History .COMPLEX SCALP gabapentin 600 mg tablet 600 mg PO QHS PAIN 10/09/24 History warfarin 2.5 mg tablet 2.5 mg PO SUFRSA BLOOD THNNER 09/1210/03/24 History ciprofloxacin HCl 500 mg tablet 500 mg PO BID 3 days #6 tabs 10/13 Unknown Rx (Cipro) insulin glargine 100 unit/mL (3 12 unit (0.12 mL) subcut QHS DM 30 10/13/24 06/07/21 Rx mL) subcutaneous pen (Lantus days #0 mL Solostar U-100 Insulin) cephalexin 500 mg capsule 500 mg PO Q12H 7 days #14 caps 12/02 Unknown Rx Allergy/AdvReac Type Severity Reaction Status Date / Time No Known Allergies Allergy Verified 10/09/24 14:01 Surgical History Status post laparoscopic cholecystectomy ( 06/2021) Social History household members: spouse housing: house Smoking Status: Former smoker ROS ROS ED ROS Narrative Constitutional: Denies fevers, chills, headaches, lightness, dizziness Eyes: Denies changes double vision blurry vision Cardiovascular: Denies chest pain or palpitations Respiratory: Denies cough or wheezing shortness of breath Abdomen: Complains of flank pain nausea vomiting as noted above but states that he currently does not have any nausea vomiting : States that he is some dark urine and painful urination Neurological: Denies any numbness, weakness, tingling Musculoskeletal: Complains of back pain as noted above Skin: Denies rashes or lesions EXAM Physical Exam Narrative Exam Narrative: General: Patient lying in bed rest comfortably did not appear to be in acute distress Head: Atraumatic, normocephalic Eyes: PE (more content not included)... Normal [facility] L499.0042on 11-10-2024 Trop T Delta 5 Normal [facility] Comment on above: Result Comment: If c linical suspicion for ACS is high, suggest getting a third troponin. Otherwise, stress test or CTCA. Performed By: #### L 499.0042 ####[facility] [address] [place], [address] Trop T High Sen 26 ng/L High <=22 [facility] Comment on above: Performed By: #### L 499.0042 ####[facility] [address] [place], [address] L499.0043on 11-10-2024 Trop T Delta Normal [facility] Comment on above: Result Comment: PT D ISCHARGED Performed By: #### L 499.0043 ####[facility] [address] [place], [address] Trop T High Sen Normal <=22 [facility] Comment on above: Result Comment: PT D ISCHARGED Performed By: #### L 499.0043 ####[facility] [address] [place], [address] L501.4021on 11-10-2024 Trop T High Sen 30 ng/L High <=22 [facility] Comment on above: Performed By: #### L 501.080 #### [facility] [address] [place], [address] Lipaseon 11-10-2024 Lipase [Catalytic activity/Vol] 26 U/L Normal 13-75 [facility] Comment on above: Result Comment: Octavio burgos note: LIPASE revised reference range effective 22. New Lipase methodology. Expected to produce lower values than the previous assay method. NEW Reference Range: 13 - 75 U/L Performed By: #### L 501.080 #### [facility] [address] [place], [address] Partial Thromboplast Timeon 11-10-2024 aPTT Coag (Bld) [Time] 51.6 s High 24.1-36.2 [facility] Comment on above: Performed By: #### L 300.4310, L300.3900 ####[facility] [address] [place], [address] Prothrombin Time w/INRon INR Coag (PPP) [Relative time] 2.5 {INR} Normal [facility] Comment on above: Performed By: #### L 501.080 #### [facility] [address] [place], [address] PT Coag (PPP) [Time] 27.1 s High 11.7-14.9 [facility] Comment on above: Performed By: #### L 501.080 #### [facility] [address] [place], [address] Urinalysis, Completeon 11-10 BACTERIA 2+ /hpf Normal None Seen [facility] Comment on above: Order Comment: COLLE CTOR TO SPECIFY Performed By: #### L 400.0001 ####[facility] [address] [place], [address] EPI,SQUAMOUS 0-5 SEEN Normal 0-5 [facility] Comment on above: Order Comment: COLLE CTOR TO SPECIFY Performed By: #### L 400.0001 ####[facility] [address] [place], [address] RBC 0-5 SEEN Normal 0-5 [facility] Comment on above: Order Comment: COLLE CTOR TO SPECIFY Performed By: #### L 400.0001 ####[facility] [address] [place], [address] WBC >100 SEEN Normal 0-5 [facility] Comment on above: Order Comment: COLLE CTOR TO SPECIFY Performed By: #### L 400.0001 ####[facility] [address] [place], [address] Mucus Ql (Urine sed) 0 SEEN Normal [facility] Comment on above: Order Comment: COLLE CTOR TO SPECIFY Performed By: #### L 400.0001 ####[facility] [address] [place], [address] CNPNon 11-06-2024 CNPN Normal [facility] PT panel Coag (PPP)on 2024 INR Coag (Bld) [Relative time] 2.1 {INR} [facility] CNPNon 10-31-2024 CNPN Normal [facility] CNPTOUTREACHon 10-24-2024 CNPTOUTREACH Normal [facility] CNCOon 10-23-2024 CNCO Letter Text Letter Text Normal [facility] CNPNon 10-22-2024 CNPN Normal [facility] CNPNon 10-18-2024 CNPN Normal [facility] PT panel Coag (PPP)on 2024 INR Coag (Bld) [Relative time] 1.0(EXT) Abnormal 1.5 - 3.0 [facility] Interpretation and review of laboratory results Abnormal [facility] CNPNon 10-17-2024 CNPN Normal [facility] CBC W Auto Differential pane l (Bld)on 10-16-2024 Basophils (Bld) [#/Vol] 0.04 10*3/uL Normal <0.11 [facility] Comment on above: Order Comment: Speci men Type: BLOOD SPECIMENOrdering Facility: [facility] Address: [address] [place] [address] Performed By: #### 5 7021-8 ####[facility] [id number] [place] [address] [place] Basophils/100 WBC (Bld) 0.9 % Normal [facility] Comment on above: Order Comment: Speci men Type: BLOOD SPECIMENOrdering Facility: [facility] Address: [address] [place] [address] Performed By: #### 5 7021-8 ####[facility] [id number] [place] [address] [place] Differential cell count method Nom (Bld) Auto Normal [facility] Comment on above: Order Comment: Speci men Type: BLOOD SPECIMENOrdering Facility: [facility] Address: [address] [place] [address] Performed By: #### 5 7021-8 ####[facility] NEVAEHCRISELDA [id number] [place] [address] [place] Eosinophils (Bld) [#/Vol] 0.24 10*3/uL Normal <0.46 [facility] Comment on above: Order Comment: Speci men Type: BLOOD SPECIMENOrdering Facility: [facility] Address: [address] [place] [address] Performed By: #### 5 7021-8 ####[facility] [id number] [place] [address] [place] Eosinophils/100 WBC (Bld) 5.6 % Normal [facility] Comment on above: Order Comment: Speci men Type: BLOOD SPECIMENOrdering Facility: [facility] Address: [address] [place] [address] Performed By: #### 5 7021-8 ####[facility]ITALNCPaul [id number] [place] [address] [place] Erythrocyte distribution width (RBC) [Ratio] 15.9 % High 11.5-15.0 [facility] Comment on above: Order Comment: Speci men Type: BLOOD SPECIMENOrdering Facility: [facility] Address: [address] [place] [address] Performed By: #### 5 7021-8 ####[facility]ITALNCA [id number] [place] [address] [place] Hematocrit (Bld) [Volume fraction] 35.6 % Low 39.0-51.0 [facility] Comment on above: Order Comment: Speci men Type: BLOOD SPECIMENOrdering Facility: [facility] Address: [address] [place] [address] Performed By: #### 5 7021-8 ####[facility] NEVAEHLISBETLIA [id number] [place] [address] [place] Hemoglobin (Bld) [Mass/Vol] 11.6 g/dL Low 13.0-17.0 [facility] Comment on above: Order Comment: Speci men Type: BLOOD SPECIMENOrdering Facility: [facility] Address: [address] [place] [address] Performed By: #### 5 7021-8 ####[facility]ITALVIVIANALIA [id number] [place] [address] [place] Immature granulocytes (Bld) [#/Vol] 10*3/uL Normal <0.10 [facility] Comment on above: Order Comment: Speci men Type: BLOOD SPECIMENOrdering Facility: [facility] Address: [address] [place] [address] Performed By: #### 5 7021-8 ####[facility]ITALA [id number] [place] [address] [place] Immature granulocytes/100 WBC (Bld) 0.5 % Normal [facility] Comment on above: Order Comment: Speci men Type: BLOOD SPECIMENOrdering Facility: [facility] Address: [address] [place] [address] Performed By: #### 5 7021-8 ####[facility] CAMPUSLIA [id number] [place] [address] [place] Lymphocytes (Bld) [#/Vol] 0.83 10*3/uL Low 1.00-4.00 [facility] Comment on above: Order Comment: Speci men Type: BLOOD SPECIMENOrdering Facility: [facility] Address: [address] [place] [address] Performed By: #### 5 7021-8 ####[facility]ITALNCLI [id number] [place] [id number] [place] Lymphocytes/100 WBC (Bld) 19.5 % Normal [facility] Comment on above: Order Comment: Speci men Type: BLOOD SPECIMENOrdering Facility: [facility] Address: [address] [place] [address] Performed By: #### 5 7021-8 ####[facility] [id number] [place] [address] [place] MCH (RBC) [Entitic mass] 28.0 pg Normal 26.0-34.0 [facility] Comment on above: Order Comment: Speci men Type: BLOOD SPECIMENOrdering Facility: [facility] Address: [address] [place] [address] Performed By: #### 5 7021-8 ####[facility] [id number] [place] [address] [place] MCHC (RBC) [Mass/Vol] 32.6 g/dL Normal 30.5-36.0 [facility] Comment on above: Order Comment: Speci men Type: BLOOD SPECIMENOrdering Facility: [facility] Address: [address] [place] [address] Performed By: #### 5 7021-8 ####[facility]ITALNCLI [id number] [place] [address] [place] MCV (RBC) [Entitic vol] 86.0 fL Normal 80.0-100.0 [facility] Comment on above: Order Comment: Speci men Type: BLOOD SPECIMENOrdering Facility: [facility] Address: [address] [place] [address] Performed By: #### 5 7021-8 ####[facility] [id number] [place] [address] [place] Monocytes (Bld) [#/Vol] 0.33 10*3/uL Normal <0.87 [facility] Comment on above: Order Comment: Speci men Type: BLOOD SPECIMENOrdering Facility: [facility] Address: [address] [place] [address] Performed By: #### 5 7021-8 ####[facility] NEVAEHCRISELDA [id number] [place] [address] [place] Monocytes/100 WBC (Bld) 7.7 % Normal [facility] Comment on above: Order Comment: Speci men Type: BLOOD SPECIMENOrdering Facility: [facility] Address: [address] [place] [address] Performed By: #### 5 7021-8 ####[facility] [id number] [place] [address] [place] Neutrophils (Bld) [#/Vol] 2.80 10*3/uL Normal 1.45-7.50 [facility] Comment on above: Order Comment: Speci men Type: BLOOD SPECIMENOrdering Facility: [facility] Address: [address] [place] [address] Performed By: #### 5 7021-8 ####[facility]ITALNCA [id number] [place] [address] [place] Neutrophils/100 WBC (Bld) 65.8 % Normal [facility] Comment on above: Order Comment: Speci men Type: BLOOD SPECIMENOrdering Facility: [facility] Address: [address] [place] [address] Performed By: #### 5 7021-8 ####[facility]ITALNCLIA [id number] [place] [address] [place] Nucleated RBC (Bld) [#/Vol] 10*3/uL Normal <0.01 [facility] Comment on above: Order Comment: Speci men Type: BLOOD SPECIMENOrdering Facility: [facility] Address: [address] [place] [address] Performed By: #### 5 7021-8 ####[facility] NEVAEHLISBETLIA [id number] [place] [address] [place] Nucleated RBC/100 WBC (Bld) [Ratio] 0.0 /100 WBC Normal [facility] Comment on above: Order Comment: Speci men Type: BLOOD SPECIMENOrdering Facility: [facility] Address: [address] [place] [address] Performed By: #### 5 7021-8 ####[facility]PITALBRILELE [id number] [place] [address] [place] Platelet mean volume (Bld) [Entitic vol] 10.8 fL Normal 9.0-12.7 [facility] Comment on above: Order Comment: Speci men Type: BLOOD SPECIMENOrdering Facility: [facility] Address: [address] [place] [address] Performed By: #### 5 7021-8 ####[facility]OSPITALBRIELLE [id number] [place] [address] [place] Platelets (Bld) [#/Vol] 108 10*3/uL Low 150-400 [facility] Comment on above: Order Comment: Speci men Type: BLOOD SPECIMENOrdering Facility: [facility] Address: [address] [place] [address] Performed By: #### 5 7021-8 ####[facility]AMPUSCONCEPCIONA [id number] [place] [address] [place] RBC (Bld) [#/Vol] 4.14 10*6/uL Low 4.20-6.00 [facility] Comment on above: Order Comment: Speci men Type: BLOOD SPECIMENOrdering Facility: [facility] Address: [address] [place] [address] Performed By: #### 5 7021-8 ####[facility] [id number] [place] [id number] [place] WBC (Bld) [#/Vol] 4.26 10*3/uL Normal 3.70-11.00 [facility] Comment on above: Order Comment: Speci men Type: BLOOD SPECIMENOrdering Facility: [facility] Address: [address] [place] [address] Performed By: #### 5 7021-8 ####[facility] MILLTOWNCLIA [id number] [place] [address] [place] CNOVSPon 10-16-2024 CNOVSP Normal [facility] CNPNon 10-16-2024 CNPN Normal [facility] CNPTOUTREACHon 10-16-2024 CNPTOUTREACH Normal [facility] Ferritin SerPl-mCncon 2024 Ferritin [Mass/Vol] 110.0 ng/mL Normal 30.3-565.7 [facility] Comment on above: Order Comment: Speci men Type: BLOOD SPECIMENOrdering Facility: [facility] Address: [address] [place] [address] Performed By: #### 5 0190-8, 2275-4, 2132-05 ####[facility] LABCLIA [id number] [place] [address] [place] Iron and Iron binding capaci ty panelon 10-16-2024 Iron [Mass/Vol] 34 ug/dL Low 41-186 [facility] Comment on above: Order Comment: Speci men Type: BLOOD SPECIMENOrdering Facility: [facility] Address: [address] [place] [address] Performed By: #### 5 0190-8, 6-4, 2132-05 ####[facility] LABCLIA [id number] [place] [address] [place] Iron binding capacity [Mass/Vol] 214 ug/dL Low 232-386 [facility] Comment on above: Order Comment: Speci men Type: BLOOD SPECIMENOrdering Facility: [facility] Address: [facility] [place], [place] [address] Performed By: #### 5 0190-8, 2275-12, 2132-05 ####[facility] LABCLIA [id number] [place] [id number] [place] Iron/TIBC [Molar ratio] 15.9 % Normal 15.0-57.0 [facility] Comment on above: Order Comment: Speci men Type: BLOOD SPECIMENOrdering Facility: [facility] Address: [address] [place] [address] Performed By: #### 5 0190-8, 2275-12, 2132-05 ####[facility] LABIA [id number] [place] [address] [place] PT panel Coag (PPP)on 2024 INR Coag (Bld) [Relative time] 0.9 {INR} [facility] Vit B12 SerPl-ncon 025 Cobalamin (Vitamin B12) [Mass/Vol] 536 pg/mL Normal 232-1245 [facility] Comment on above: Order Comment: Speci men Type: BLOOD SPECIMENOrdering Facility: [facility] Address: [address] [place] [address] Performed By: #### 5 0190-8, 2275-12, 2132-05 ####[facility] LABIA [id number] [place] [id number] [place] Basic Metabolic Profile (BMP )on 10-15-2024 BUN/CRE 7.9 RATIO Low 10-20 [facility] Comment on above: Performed By: #### L 501.080 #### [facility] [address] [place], [place], [id number] [place],Total 8.7 mg/dL Normal 8.5-10.1 [facility] Comment on above: Performed By: #### L 501.080 #### [facility] [address] [place], [address] Chloride [Moles/Vol] 108 mmol/L High 98-107 [facility] Comment on above: Performed By: #### L 501.080 #### [facility] [address] [place], [address] CO2 [Moles/Vol] 25.0 mmol/L Normal 21.0-32.0 [facility] Comment on above: Performed By: #### L 501.080 #### [facility] [address] [place], [address] Creatinine [Mass/Vol] 1.39 mg/dL High 0.70-1.30 [facility] Comment on above: Result Comment: The validity of the calculated GFR GFRAA in patients over 70 years has not been determined. Clinical correlation is essential. Performed By: #### L 501.080 #### [facility] [address] [place], [address] EST GFR - AA 64 mL/min Normal >60 [facility] Comment on above: Result Comment: Afri can Cymraes GFR Calc Performed By: #### L 501.080 #### [facility] [address] [place], [address] GAP 5 Normal 5-15 [facility] Comment on above: Performed By: #### L 501.080 #### [facility] [address] [place], [address] GFR/1.73 sq M.predicted among non-blacks MDRD (S/P/Bld) [Vol rate/Area] 53 mL/min/{1.73_m2} Low >60 [facility] Comment on above: Result Comment: Non- GFR Calc Performed By: #### L 501.080 #### [facility] [address] [place], [address] Glucose [Mass/Vol] 107 mg/dL High 74-106 [facility] Comment on above: Result Comment: Fast ing Glucose result from 100 to 125 mg/dL suggests IMPAIRED HOMEOSTASIS per A.D.A. criteria. Performed By: #### L 501.080 #### [facility] [address] [place], [address] Potassium [Moles/Vol] 4.2 mmol/L Normal 3.5-5.1 [facility] Comment on above: Performed By: #### L 501.080 #### [facility] [address] [place], [address] Sodium [Moles/Vol] 138 mmol/L Normal 136-145 [facility] Comment on above: Performed By: #### L 501.080 #### [facility] [address] [place], [address] Urea nitrogen [Mass/Vol] 11 mg/dL Normal 7-18 [facility] Comment on above: Performed By: #### L 501.080 #### [facility] [address] [place], [address] CNPNon 10-15-2024 CNPN Normal [facility] Prothrombin Time w/INRon INR Coag (PPP) [Relative time] 1.2 {INR} Normal [facility] Comment on above: Performed By: #### L 501.080 #### [facility] [address] [place], [address] PT Coag (PPP) [Time] 15.2 s High 11.7-14.9 [facility] Comment on above: Performed By: #### L 501.080 #### [facility] [address] [place], [address] Prothrombin Time w/INRon INR Normal [facility] Comment on above: Result Comment: Canc elled via OM: Order cancelled - Patient discharged Performed By: #### L 501.080 #### [facility] [address] [place], [address] PROTIME Normal 11.7-14.9 [facility] Comment on above: Result Comment: Canc elled via OM: Order cancelled - Patient discharged Performed By: #### L 501.080 #### [facility] [address] [place], [address] Basic Metabolic Profile (BMP )on 10-13-2024 BUN/CRE 7.7 RATIO Low 10-20 [facility] Comment on above: Performed By: #### L 501.080 #### [facility] [address] [place], [address] CA,Total 8.6 mg/dL Normal 8.5-10.1 [facility] Comment on above: Performed By: #### L 501.080 #### [facility] [address] [place], [address] Chloride [Moles/Vol] 106 mmol/L Normal 98-107 [facility] Comment on above: Performed By: #### L 501.080 #### [facility] [address] [place], [address] CO2 [Moles/Vol] 24.0 mmol/L Normal 21.0-32.0 [facility] Comment on above: Performed By: #### L 501.080 #### [facility] [address] [place], [address] Creatinine [Mass/Vol] 1.56 mg/dL High 0.70-1.30 [facility] Comment on above: Result Comment: The validity of the calculated GFR GFRAA in patients over 70 years has not been determined. Clinical correlation is essential. Performed By: #### L 501.080 #### [facility] [address] [place], [address] ECRCL 48.17 ml/min Normal [facility] Comment on above: Performed By: #### L 501.080 #### [facility] [address] [place], [address] EST GFR - AA 56 mL/min Low >60 [facility] Comment on above: Result Comment: Afri can Cymraes GFR Calc Performed By: #### L 501.080 #### [facility] [address] [place], [address] GAP 6 Normal 5-15 [facility] Comment on above: Performed By: #### L 501.080 #### [facility] [address] [place], [address] GFR/1.73 sq M.predicted among non-blacks MDRD (S/P/Bld) [Vol rate/Area] 46 mL/min/{1.73_m2} Low >60 [facility] Comment on above: Result Comment: Non- GFR Calc Performed By: #### L 501.080 #### [facility] [address] [place], [address] Glucose [Mass/Vol] 99 mg/dL Normal 74-106 [facility] Comment on above: Performed By: #### L 501.080 #### [facility] [address] [place], [address] Potassium [Moles/Vol] 3.8 mmol/L Normal 3.5-5.1 [facility] Comment on above: Performed By: #### L 501.080 #### [facility] [address] [place], [address] Sodium [Moles/Vol] 137 mmol/L Normal 136-145 [facility] Comment on above: Performed By: #### L 501.080 #### [facility] [address] [place], [address] Urea nitrogen [Mass/Vol] 12 mg/dL Normal 7-18 [facility] Comment on above: Performed By: #### L 501.080 #### [facility] [address] [place], [address] Bedside Glucoseon --2024 FINGERSTICK GLU 119 mg/dL High 74-106 [facility] Comment on above: Result Comment: BETH GEMENT OF PATIENT CARE PER NURSING PROTOCOL Performed By: #### L 501.080 ####[facility] [address] [place], [address] FINGERSTICK GLU 98 mg/dL Normal 74-106 [facility] Comment on above: Result Comment: BETH GEMENT OF PATIENT CARE PER NURSING PROTOCOL Performed By: #### L 501.080 #### [facility] [address] [place], [address] CBC W/Diff, Automatedon - Absolute Lymph 0.68 X10 3/uL Low 0.83-4.51 [facility] Comment on above: Performed By: #### L 501.080 #### [facility] [address] [place], [address] Absolute Neut 3.0 X10 3/uL Normal 2.0-7.7 [facility] Comment on above: Performed By: #### L 501.080 #### [facility] [address] [place], [address] Basophils/100 WBC (Bld) 0.5 % Normal 0-1 [facility] Comment on above: Performed By: #### L 501.080 #### [facility] [address] [place], [address] Eosinophils/100 WBC (Bld) 1.9 % Normal 0-5 [facility] Comment on above: Performed By: #### L 501.080 #### [facility] [address] [place], [address] Erythrocyte distribution width (RBC) [Ratio] 15.5 % High 11.6-14.6 [facility] Comment on above: Performed By: #### L 501.080 #### [facility] [address] [place], [address] Hematocrit (Bld) [Volume fraction] 34.3 % Low 40-54 [facility] Comment on above: Performed By: #### L 501.080 #### [facility] [address] [place], [address] Hemoglobin (Bld) [Mass/Vol] 10.8 g/dL Low 13.0-16.5 [facility] Comment on above: Performed By: #### L 501.080 #### [facility] [address] [place], [address] IG% 0.200 Normal 0.0-0.9 [facility] Comment on above: Result Comment: IG% - Immature Granulocytes (promyelocytes, myelocytes and metamyelocytes) > 1% indicates that a LEFT SHIFT is Present. Performed By: #### L 501.080 #### [facility] [address] [place], [address] Lymphocytes/100 WBC (Bld) 16.4 % Low 19-41 [facility] Comment on above: Performed By: #### L 501.080 #### [facility] [address] [place], [address] MCH (RBC) [Entitic mass] 27.2 pg Normal 27.0-32.0 [facility] Comment on above: Performed By: #### L 501.080 #### [facility] [address] [place], [address] MCHC (RBC) [Mass/Vol] 31.5 g/dL Low 32-36 [facility] Comment on above: Performed By: #### L 501.080 #### [facility] [address] [place], [address] MCV (RBC) [Entitic vol] 86.4 fL Normal 80-94 [facility] Comment on above: Performed By: #### L 501.080 #### [facility] [address] [place], [address] Monocytes/100 WBC (Bld) 7.7 % Normal 0-10 [facility] Comment on above: Performed By: #### L 501.080 #### [facility] [address] [place], [address] Neutrophils/100 WBC (Bld) 73.3 % High 47-70 [facility] Comment on above: Performed By: #### L 501.080 #### [facility] [address] [place], [address] Nucleated RBC (Bld) [#/Vol] 0 10*3/uL Normal 0-5 [facility] Comment on above: Performed By: #### L 501.080 #### [facility] [address] [place], [address] Platelet mean volume (Bld) [Entitic vol] 11.9 fL Normal 6.2-12.0 [facility] Comment on above: Performed By: #### L 501.080 #### [facility] [address] [place], [address] Platelets (Bld) [#/Vol] 60 10*3/uL Low 150-450 [facility] Comment on above: Performed By: #### L 501.080 #### [facility] [address] [place], [address] RBC (Bld) [#/Vol] 3.97 10*6/uL Low 4.6-6.2 [facility] Comment on above: Performed By: #### L 501.080 #### [facility] [address] [place], [address] RDW SD 49.2 fl High 35.1-43.9 [facility] Comment on above: Performed By: #### L 501.080 #### [facility] [address] [place], [address] WBC (Bld) [#/Vol] 4.1 10*3/uL Low 4.4-11.0 [facility] Comment on above: Performed By: #### L 501.080 #### [facility] [address] [place], [address] CNPNon 10-13-2024 CNPN Normal [facility] Discharge Instructionon Discharge Instruction [facility] Medical Records Department [address] [place] [address] Instructions for Home/Discharge Instructions 10/13/24 1138 MR#: [id number] Acct: [id number] Name: YAZAN NOLASCO Rep #: [id number] : 1950 74 From: Sd Chatman MD PCP: Dr. Dee Ashley MD Status:ADM IN Discharge Instructions DC O2, CPAP, BIPAP needs Home O2 Discharge instructions: No Follow Up Care Test Results: Test results from this visit will be discussed in further detail at your follow-up appointment, if applicable. Discharge Plan Admission Admit Date/Time: 10/09/24 18:30 Primary Reason for Your Visit: UTI, left UVJ obstructed stone status post left ureteral stent Attending Provider: Sd Chatman Primary Care Provider: Dee Ashley Consulting Providers: Lv Pink; Jose Armando Erickson Instructions Additional Instructions / Restrictions: Patient needs BMP and INR in 2 days. Discharge Orders/Prescriptions Prescriptions: New ciprofloxacin HCl [Cipro] 500 mg tablet 500 mg PO BID 3 Days Qty: 6 0RF Continued atorvastatin 20 MG tablet 20 mg PO QODAY potassium chloride [Klor-Con 10] 10 MEQ tablet extended release 10 meq PO BID allopurinol 100 MG tablet 200 mg PO DAILYCM aspirin 81 MG tablet,chewable 81 mg PO DAILY@0800 duloxetine 60 MG capsule 60 mg PO DAILY metoprolol tartrate 100 mg tablet 100 mg PO BID Patient Comments: TAKE 1 TABLET BY MOUTH TWICE DAILY amlodipine 5 mg tablet 5 mg PO DAILY Patient Comments: TAKE 1 TABLET BY MOUTH ONCE DAILY acetaminophen 500 mg Tablet 1,000 mg PO BID PRN (Reason: Pain) tamsulosin 0.4 mg capsule 0.8 mg PO DAILY Patient Comments: TAKE 2 CAPSULES BY MOUTH ONCE DAILY warfarin 5 mg tablet 5 mg PO MOTUWETH Patient Comments: TAKE 1 TABLET BY MOUTH ONCE DAILY magnesium oxide 400 mg magnesium tablet 400 mg PO BID Patient Comments: TAKE 1 TABLET BY MOUTH TWICE DAILY gabapentin 600 mg tablet 600 mg PO QHS warfarin 2.5 mg tablet 2.5 mg PO SUFRSA clobetasol 0.05 % solution See Rx Instructions TOPICAL .COMPLEX Patient Comments: APPLY TO THE SCALP ONCE DAILY IN THE EVENING FOR 2 WEEKS. RINSE OFF IN THE MORNING. TAKE ONE WEEK OFF BEFORE RESUMING NEEDED FOR FLARES. Rx Instructions: APPLY TO THE SCALP ONCE DAILY IN THE EVENING FOR 2 WEEKS. RINSE OFF IN THE MORNING. TAKE ONE WEEK OFF BEFORE RESUMING NEEDED FOR FLARES. topically; bupropion HCl 150 mg tablet extended release 24 hr 150 mg PO DAILY Otezla 30 mg tablet 30 mg PO DAILY Changed insulin glargine [Lantus Solostar U-100 Insulin] 100 UNITS/ML insulin pen 12 unit subcut QHS 30 Days Qty: 0 0RF Rx Instructions: Hold if glucose less than 130 mg/dl Held hydrochlorothiazide 25 MG tablet 25 mg PO DAILY Hold Instructions: Hold for 1 week and restart at lower dose 12.5 mg daily. lisinopril 40 MG tablet 40 mg PO DAILY Hold Instructions: Hold for 1 week and follow with BMP with PCP Referrals / Follow Up: Dee Ashley MD [Primary Care Provider] - 10/17/24 11:40 am Jose Armando Erickson MD [Med Staff - Active Staff] - Within 1 Week (For lithotripsy treatment of left UVJ stone.) Disposition Discharge Orders: Discharge Patient (Routine); Ordered 10/13/24 Ordered By: Dr. Sd Chatman 10/13/24 4699 Sd Chatman MD CC: Dr. Lv Pikn DO; Dr. Dee Ashley MD; Dr. Jose Armando Erickson MD Signed Normal [facility] Prothrombin Time w/INRon INR Coag (PPP) [Relative time] 1.3 {INR} Normal [facility] Comment on above: Performed By: #### L 501.080 #### [facility] [address] [place], [address] PT Coag (PPP) [Time] 16.5 s High 11.7-14.9 [facility] Comment on above: Performed By: #### L 501.080 #### [facility] [address] [place], [address] Basic Metabolic Profile (BMP )on 10-12-2024 BUN/CRE 9.4 RATIO Low 10-20 [facility] Comment on above: Performed By: #### L 300.3900, L100.0100, L500.2500 ####[facility] [address] [place], [address] CA,Total 8.6 mg/dL Normal 8.5-10.1 [facility] Comment on above: Performed By: #### L 300.3900, L100.0100, L500.2500 ####[facility] [address] [place], [address] Chloride [Moles/Vol] 105 mmol/L Normal 98-107 [facility] Comment on above: Performed By: #### L 300.3900, L100.0100, L500.2500 ####[facility] [address] [place], [address] CO2 [Moles/Vol] 25.0 mmol/L Normal 21.0-32.0 [facility] Comment on above: Performed By: #### L 300.3900, L100.0100, L500.2500 ####[facility] [address] [place], [address] Creatinine [Mass/Vol] 1.49 mg/dL High 0.70-1.30 [facility] Comment on above: Result Comment: The validity of the calculated GFR GFRAA in patients over 70 years has not been determined. Clinical correlation is essential. Performed By: #### L 300.3900, L100.0100, L500.2500 ####[facility] [address] [place], [address] ECRCL 50.44 ml/min Normal [facility] Comment on above: Performed By: #### L 300.3900, L100.0100, L500.2500 ####[facility] [address] [place], [address] EST GFR - AA 59 mL/min Low >60 [facility] Comment on above: Result Comment: Afri can Cymraes GFR Calc Performed By: #### L 300.3900, L100.0100, L500.2500 ####[facility] [address] [place], [address] GAP 7 Normal 5-15 [facility] Comment on above: Performed By: #### L 300.3900, L100.0100, L500.2500 ####[facility] [address] [place], [address] GFR/1.73 sq M.predicted among non-blacks MDRD (S/P/Bld) [Vol rate/Area] 49 mL/min/{1.73_m2} Low >60 [facility] Comment on above: Result Comment: Non- GFR Calc Performed By: #### L 300.3900, L100.0100, L500.2500 ####[facility] [address] [place], [address] Glucose [Mass/Vol] 96 mg/dL Normal 74-106 [facility] Comment on above: Performed By: #### L 300.3900, L100.0100, L500.2500 ####[facility] [address] [place], [address] Potassium [Moles/Vol] 3.9 mmol/L Normal 3.5-5.1 [facility] Comment on above: Performed By: #### L 300.3900, L100.0100, L500.2500 ####[facility] [address] [place], [address] Sodium [Moles/Vol] 137 mmol/L Normal 136-145 [facility] Comment on above: Performed By: #### L 300.3900, L100.0100, L500.2500 ####[facility] [address] [place], [address] Urea nitrogen [Mass/Vol] 14 mg/dL Normal 7-18 [facility] Comment on above: Performed By: #### L 300.3900, L100.0100, L500.2500 ####[facility] [address] [place], [address] Bedside Glucoseon 10-12-2024 FINGERSTICK GLU 136 mg/dL High 74-106 [facility] Comment on above: Result Comment: BETH GEMENT OF PATIENT CARE PER NURSING PROTOCOL Performed By: #### L 501.080 ####[facility] [address] [place], [address] FINGERSTICK GLU 131 mg/dL High 74-106 [facility] Comment on above: Result Comment: BETH GEMENT OF PATIENT CARE PER NURSING PROTOCOL Performed By: #### L 501.080 ####[facility] [address] [place], [address] FINGERSTICK GLU 97 mg/dL Normal 74-106 [facility] Comment on above: Result Comment: BETH GEMENT OF PATIENT CARE PER NURSING PROTOCOL Performed By: #### L 501.080 ####[facility] [address] [place], [address] FINGERSTICK GLU 106 mg/dL Normal 74-106 [facility] Comment on above: Result Comment: BETH GEMENT OF PATIENT CARE PER NURSING PROTOCOL Performed By: #### L 501.080 #### [facility] [address] [place], [address] FINGERSTICK GLU 127 mg/dL High 74-106 [facility] Comment on above: Result Comment: BETH MARTINEZ OF PATIENT CARE PER NURSING PROTOCOL Performed By: #### L 501.080 ####[facility] [address] [place], [address] CBC W/Diff, Automatedon 02-0 -2024 Absolute Lymph 0.79 X10 3/uL Low 0.83-4.51 [facility] Comment on above: Performed By: #### L 300.3900, L100.0100, L500.2500 ####[facility] [address] [place], [address] Absolute Neut 2.1 X10 3/uL Normal 2.0-7.7 [facility] Comment on above: Performed By: #### L 300.3900, L100.0100, L500.2500 ####[facility] [address] [place], [address] Basophils/100 WBC (Bld) 0.9 % Normal 0-1 [facility] Comment on above: Performed By: #### L 300.3900, L100.0100, L500.2500 ####[facility] [address] [place], [address] Eosinophils/100 WBC (Bld) 3.6 % Normal 0-5 [facility] Comment on above: Performed By: #### L 300.3900, L100.0100, L500.2500 ####[facility] [address] [place], [address] Erythrocyte distribution width (RBC) [Ratio] 15.8 % High 11.6-14.6 [facility] Comment on above: Performed By: #### L 300.3900, L100.0100, L500.2500 ####[facility] [facility] [address] [place], [address] Hematocrit (Bld) [Volume fraction] 34.1 % Low 40-54 [facility] Comment on above: Performed By: #### L 300.3900, L100.0100, L500.2500 ####[facility] [address] [place], [address] Hemoglobin (Bld) [Mass/Vol] 11.1 g/dL Low 13.0-16.5 [facility] Comment on above: Performed By: #### L 300.3900, L100.0100, L500.2500 ####[facility] [address] [place], [address] IG% 0.300 Normal 0.0-0.9 [facility] Comment on above: Result Comment: IG% - Immature Granulocytes (promyelocytes, myelocytes and metamyelocytes) > 1% indicates that a LEFT SHIFT is Present. Performed By: #### L 300.3900, L100.0100, L500.2500 ####[facility] [address] [place], [address] Lymphocytes/100 WBC (Bld) 23.9 % Normal 19-41 [facility] Comment on above: Performed By: #### L 300.3900, L100.0100, L500.2500 ####[facility] [address] [place], [address] MCH (RBC) [Entitic mass] 27.8 pg Normal 27.0-32.0 [facility] Comment on above: Performed By: #### L 300.3900, L100.0100, L500.2500 ####[facility] [address] [place], [address] MCHC (RBC) [Mass/Vol] 32.6 g/dL Normal 32-36 [facility] Comment on above: Performed By: #### L 300.3900, L100.0100, L500.2500 ####[facility] [address] [place], [address] MCV (RBC) [Entitic vol] 85.5 fL Normal 80-94 [facility] Comment on above: Performed By: #### L 300.3900, L100.0100, L500.2500 ####[facility] [address] [place], [address] Monocytes/100 WBC (Bld) 8.5 % Normal 0-10 [facility] Comment on above: Performed By: #### L 300.3900, L100.0100, L500.2500 ####[facility] [address] [place], [address] Neutrophils/100 WBC (Bld) 62.8 % Normal 47-70 [facility] Comment on above: Performed By: #### L 300.3900, L100.0100, L500.2500 ####[facility] [address] [place], [address] Nucleated RBC (Bld) [#/Vol] 0 10*3/uL Normal 0-5 [facility] Comment on above: Performed By: #### L 300.3900, L100.0100, L500.2500 ####[facility] [address] [place], [address] Platelet mean volume (Bld) [Entitic vol] 12.0 fL Normal 6.2-12.0 [facility] Comment on above: Performed By: #### L 300.3900, L100.0100, L500.2500 ####[facility] [address] [place], [address] Platelets (Bld) [#/Vol] 68 10*3/uL Low 150-450 [facility] Comment on above: Performed By: #### L 300.3900, L100.0100, L500.2500 ####[facility] [address] [place], [address] RBC (Bld) [#/Vol] 3.99 10*6/uL Low 4.6-6.2 [facility] Comment on above: Performed By: #### L 300.3900, L100.0100, L500.2500 ####[facility] [address] [place], [address] RDW SD 49.1 fl High 35.1-43.9 [facility] Comment on above: Performed By: #### L 300.3900, L100.0100, L500.2500 ####[facility] [address] [place], [address] WBC (Bld) [#/Vol] 3.3 10*3/uL Low 4.4-11.0 [facility] Comment on above: Performed By: #### L 300.3900, L100.0100, L500.2500 ####[facility] [address] [place], [address] Consultation - Urologyon Consultation - Urology [facility] Medical Records Department [address] [place] [address] Consultation - Urology 10/12/24 0908 MR#: [id number] Acct: [id number] Name: YAZAN NOLASCO Rep #: [id number] : 1950 74 From: Jose Armando Erickson MD PCP: Dr. Dee Ashley MD Status:ADM IN Location: [facility] [id number] HPI Consult Data Date of Consult: 10/12/24 HPI Narrative Reason for Consultation: Stone on the left side with obstruction HPI Narrative: YAZAN NOLASCO, is a 74 M who presents for continued infection metabolic encephalopathy found to have a kidney stone the distal left ureter organ to place her cystoscopy and do a left stent placement today in the OR, plan to treat the stone later on as an outpatient with laser lithotripsy. PFSH Medical History Injury of head and neck Cancer Hepatitis Former smoker CPAP (continuous positive airway pressure) dependence Sleep apnea Atrial fibrillation ICD (implantable cardioverter-defibrillator) in place Pacemaker Hypertension Acute calculous cholecystitis Hyperlipemia Diabetic neuropathy HTN (hypertension) Diabetes Home Medications ???Medication ???Instructions ???Recorded ???Last Taken ???Type allopurinol 100 mg tablet 200 mg PO DAILYCM GOUT 05/12/14 History aspirin 81 mg chewable tablet 81 mg PO DAILY@0800 HEALTH 4 10/08/24 History atorvastatin 20 mg tablet 20 mg PO QODAY CHOLESTEROL 4 10/07/24 History duloxetine 60 mg capsule,delayed 60 mg PO DAILY MOOD 05/12/1410/09 History release hydrochlorothiazide 25 mg tablet 25 mg PO DAILY BP 05/12/14 5 History insulin glargine 100 unit/mL (3 24 units subcut QHS DM 05/12/14 History mL) subcutaneous pen (Lantus Solostar U-100 Insulin) lisinopril 40 mg tablet 40 mg PO DAILY BP 05/12/14 5 History potassium chloride 10 mEq 10 meq PO BID SUPPLEMENT 05/12/14 10/09/24 History tablet,extended release (Klor-Con) acetaminophen 500 mg tablet 1,000 mg PO BID PRN Pain 06/09/21 06/09/21 07:00 History amlodipine 5 mg tablet 5 mg PO DAILY BP 06/09/21 10/09/24 History magnesium oxide 400 mg PO BID SUPPLEMENT 06/09/21 10/09/24 History metoprolol tartrate 100 mg tablet 100 mg PO BID HEART 06/09/2109/12 History tamsulosin 0.4 mg capsule 0.8 mg PO DAILY PROSTATE 06/09/21 10/08/24 History warfarin 5 mg tablet 5 mg PO MOTUWETH BLOODTHINNER 05/1310/09/24 History apremilast 30 mg tablet (Otezla) 30 mg PO DAILY ARTHRITIS 10/09/24 10/08/24 History bupropion HCl 150 mg 24 hr tablet, 150 mg PO DAILY MOOD 10/09/24 History extended release clobetasol 0.05 % scalp solution See Rx Instructions topical 10/08/24 History .COMPLEX SCALP gabapentin 600 mg tablet 600 mg PO QHS PAIN 10/09/24 History warfarin 2.5 mg tablet 2.5 mg PO SUFRSA BLOOD THNNER 09/1210/03/24 History Allergy/AdvReac Type Severity Reaction Status Date / Time No Known Allergies Allergy Verified 10/09/24 14:01 Surgical History Status post laparoscopic cholecystectomy ( 06/2021) Social History household members: spouse housing: house Smoking Status: Former smoker Medical Records Data Medical Nutrition Assessment Dietitian: Malnutrition Criteria Met Start: 10/10/24 13:02 Freq: Status: Active Protocol: Document 10/10/24 13:02 SLA (Rec: 10/10/24 13:02 SLA 10.10.25.7) Nutrition Malnutrition Evidence of Yes Malnutrition Exists Malnutrition (severe Chronic ): Evidenced By Suboptimal Energy Intake (Severe),Weight Loss (Severe) Clinical Problem Chronic Disease or Condition Related Malnutrition Etiology related to inadequate energy intake Signs/Symptoms as evidenced by po intake meeting < 75% of est nutritional needs and 9.2% unplanned wt loss x 3 months Status Active Problem Recommendation Dietitian Will liberalize diet to CHO Controlled d/t signs and Recommendations/ symptoms of malnutrition Changes Will continue 4 oz glucerna shake tid w/ medpass for increased nutrition if consumed Will provide diet education at time of follow up if desired by pt WIll continue to follow and monitor for changes in pt nutritional status and make additional rec as indicated . Lab / Micro Data 10/12/24 05:46 10/12/24 05:46 Labs: Laboratory Results - last 24 hr 10/11/24 11:14: POC Glucose 134 H 10/11/24 13:32: PT 21.0 H, INR 1.8 10/11/24 16:44: POC Glucose 117 H 10/11/24 23:40: POC Glucose 127 H 10/12/24 05:46: WBC 3.3 L, RBC 3.99 L, Hgb 11.1 L, Hct 34.1 L, MCV 85.5, MCH 27.8, MCHC 32.6, RDW Std Deviation 49.1 H, RDW Coeff of Montrell 15.8 H, Plt Count 68 L, MPV 12.0, Immature Gran % (Auto) 0.300, (more content not included)... Normal [facility] MR/POSTOP.ANEon 10-12-2024 MR/POSTOP.ANE [facility] Medical Records Department [address] [place] [address] Anesthesia Postop Eval I 10/12/24 1000 MR#: [id number] Acct: [id number] Name: YAZAN NOLASCO Rep #: [id number] : 1950 74 From: Adam Chapman MD PCP: Dr. Dee Ashley MD Status:ADM IN Y Race: C Location: [place] [address] Anesthesia: Postop Eval I Current Vital Signs Temperature: 98.5 F Pulse Rate: 70 Blood Pressure: 114/72 Respiratory Rate: 16 Pulse Ox: 70 Assessment Airway patent: Yes Spontaneous unlabored respirations: Yes nausea: No Vomiting: No Anesthesia Complication: No Fluid Hydration Crystalloid volume administer (ml): 100 Total IV fluid infused: 100 Progress Note Anesthesia document: Postop Eval 1 completed: Yes 10/12/241002 Date [facility] Chapman [facility]: Date CC: Signed Normal [facility] MR/[id number] 10-12-2024 MR/POSTOPAN2 [facility] Medical Records Department [address] [place] [address] Anesthesia Postop Eval II 10/12/24 1003 MR#: [id number] Acct: [id number] Name: YAZAN NOLASCO Rep #: [id number] : 1950 74 From: Adam Chapman MD PCP: Dr. Dee Ashley MD Status:ADM IN Y Race: C Location: [facility] [id number] Anesthesia Postop Eval I Sum Postop Eval Completion status Anesthesia document: Postop Eval 1 completed: Yes Anesthesia Postop Eval I Summary Anesthesia Postop Eval I Summary: Anesthesia Postop Eval I: Assessment Summary Airway patent Yes 10/12/24 10:02 Spontaneous unlabored Yes 10/12/24 10:02 respirations Mental status nausea No 10/12/24 10:02 Vomiting No 10/12/24 10:02 Anesthesia Postop Eval I: Fluid Summary Crystalloid volume administer 100 10/12/24 10:02 (ml) Colloids volume administered ( ml) Blood Product volume administered (ml) Total IV fluid infused 100 10/12/24 10:02 Anesthesia Postop Eval I: Summary Notes Anesthesia Complication No 10/12/24 10:02 Anesthesia Complication Comment: Post-operative progress note Anesthesia: Postop Eval II Evaluation Mental status: Awake Pain Level: 0 nausea: No Vomiting: No 10/12/24 1003 Date Adam Chapman MD Cosigner Signature: Date CC: Signed Normal [facility] Operative Reporton 5 Operative Report [facility] Medical Records Department [address] [place] [address] Operative Report 10/12/24925 MR#: [id number] Acct: [id number] Name: YAZAN NOLASCO Rep #: [id number] : 1950 74 From: Jose Armando Erickson MD PCP: Dr. 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 The urethra and genitals were prepped and draped in usual sterile fashion. Using a 21 Maltese rigid cystourethroscope the entire length of the urethra was normal then went into the bladder. Identified the trigone the left and right ureteral orifice. I then cannulated the left ureteral orifice and advanced a wire up into the kidney. I then backloaded a 5 Maltese open ended catheter over the wire and injected contrast to delineate the anatomy. After the retrograde was performed I then used fluoroscopic images and guidance to advanced a wire up into the kidney and over the 0.038 glidewire I advanced a 6 Maltese by 26 cm double pigtail stent. I then pulled the 0.038 Glidewire off and the stent coiled in the kidney bladder good position. The bladder was then drained. We confirmed the position of the stent by fluoroscopy. Patient anesthetic was reversed and was taken back to the PACU in good condition. Surgical Findings: Stones obstructed causing obstruction in the distal left ureter Complications Complications: No Admit VTE Documentation VTE Present on Admission: No VTE Mechan Device Prophylaxis: SCD's VTE Pharm Prophylaxis ordered?: No 10/12/24926 Cosigner Signature (if applicable): CC: Dr. Lv Pink DO; Dr. Dee Ashley MD; Dr. Jose Armando Erickson MD Signed [facility] Prothrombin Time w/INRon INR Coag (PPP) [Relative time] 1.6 {INR} Normal [facility] Comment on above: Performed By: #### L 300.3900, L100.0100, L500.2500 ####[facility] [address] [place], [address] PT Coag (PPP) [Time] 19.8 s High 11.7-14.9 [facility] Comment on above: Performed By: #### L 300.3900, L100.0100, L500.2500 ####[facility] [address] [place], [address] 12 Lead EKGon 10-11-2024 12 Lead EKG [facility] Cardiovascular Services [address] [place] [address] 12 Lead EKG 10/11/24 1127 MR#: [id number] Acct: [id number] Name: YAZAN NOLASCO Rep #: [id number] : 1950 74 From: Rohan Lewis MD Attending Dr: Dr. Sd Chatman MD Status: ADM IN Ordering Dr: Jose Armando Erickson MD Date: 10/11/24 Location: CT3 Sex: M C Admitted: 10/09/24 Test Reason : PRE-OP Blood Pressure : */* mmHG Vent. Rate : 70 BPM Atrial Rate : 70 BPM P-R Int : * ms QRS Dur : 198 ms QT Int : 504 ms P-R-T Axes : * -78 99 degrees QTcB Int : 544 ms Ventricular-paced rhythm with frequent AV dual-paced complexes Abnormal ECG When compared with ECG of 09-Oct-2024 15:03, MANUAL COMPARISON REQUIRED DATA IS UNCONFIRMED Confirmed by JOSHUA IBANEZ, ROHAN ([id number]), manuscript editor SUZANNA THOMPSON ([id number]) on 10/13/2024 1:57:35 PM Referred By: Confirmed By: ROHAN LEWIS MD 10/13/24 1357 Date Rohan Lewis MD CC: Dr. Dee Ashley MD; Dr. Jose Armando Erickson MD; Dr. Sd Chatman MD Signed Normal [facility] Bedside Glucoseon 10-11-2024 FINGERSTICK GLU 117 mg/dL High 74-106 [facility] Comment on above: Result Comment: BETH GEMENT OF PATIENT CARE PER NURSING PROTOCOL Performed By: #### L 501.080 #### [facility] [address] [facility] [address] FINGERSTICK GLU 134 mg/dL High 74-106 [facility] Comment on above: Result Comment: BETH GEMENT OF PATIENT CARE PER NURSING PROTOCOL Performed By: #### L 501.080 ####[facility] [address] [facility] [address] FINGERSTICK GLU 108 mg/dL High -106 [facility] Comment on above: Result Comment: BETH GEMENT OF PATIENT CARE PER NURSING PROTOCOL Performed By: #### L 501.080 #### [facility] [address] [facility] [address] Consultation - Urologyon Consultation - Urology [facility] Medical Records Department [address] [place] [address] Consultation - Urology 10/11/24 0740 MR#: [id number] Acct: [id number] Name: YAZAN NOLASCO Rep #: [id number] : 1950 74 From: Jose Armando Erickson MD PCP: Dr. Dee Ashley MD Status:ADM IN Location: [place] [address] Assessment Plan Assessment/Plan (1) Acute UTI: (2) Weakness: (3) Ureteral stone: PLAN: Plan for cystoscopy and left stent placement tomorrow at 9:00 am HPI Consult Data Date of Consult: 10/11/24 HPI Narrative Reason for Consultation: Obstructing left ureteral stone HPI Narrative: YAZAN NOLASCO, is a 74 M who presents to the hospital with acute urinary tract infection also metabolic encephalopathy, workup he was found to have a UTI and also obstructing stone in the distal left ureter but no hydronephrosis. At this point plan to take him to surgery tomorrow for cystoscopy and left stent placement to alleviate the obstruction will continue to treat the UTI and I will get him set up for outpatient surgery to laser the stone later on. [facility] Medical History Injury of head and neck Cancer Hepatitis Former smoker CPAP (continuous positive airway pressure) dependence Sleep apnea Atrial fibrillation ICD (implantable cardioverter-defibrillator) in place Pacemaker Hypertension Acute calculous cholecystitis Hyperlipemia Diabetic neuropathy HTN (hypertension) Diabetes Home Medications ???Medication ???Instructions ???Recorded ???Last Taken ???Type allopurinol 100 mg tablet 200 mg PO DAILYCM GOUT 05/12/14 History aspirin 81 mg chewable tablet 81 mg PO DAILY@0800 HEALTH 4 10/08/24 History atorvastatin 20 mg tablet 20 mg PO QODAY CHOLESTEROL 4 10/07/24 History duloxetine 60 mg capsule,delayed 60 mg PO DAILY MOOD 05/12/1410/09 History release hydrochlorothiazide 25 mg tablet 25 mg PO DAILY BP 05/12/14 5 History insulin glargine 100 unit/mL (3 24 units subcut QHS DM 05/12/14 History mL) subcutaneous pen (Lantus Solostar U-100 Insulin) lisinopril 40 mg tablet 40 mg PO DAILY BP 05/12/14 5 History potassium chloride 10 mEq 10 meq PO BID SUPPLEMENT 05/12/14 10/09/24 History tablet,extended release (Klor-Con) acetaminophen 500 mg tablet 1,000 mg PO BID PRN Pain 06/09/21 06/09/21 07:00 History amlodipine 5 mg tablet 5 mg PO DAILY BP 06/09/21 10/09/24 History magnesium oxide 400 mg PO BID SUPPLEMENT 06/09/21 10/09/24 History metoprolol tartrate 100 mg tablet 100 mg PO BID HEART 06/09/2109/12 History tamsulosin 0.4 mg capsule 0.8 mg PO DAILY PROSTATE 06/09/21 10/08/24 History warfarin 5 mg tablet 5 mg PO MOTUWETH BLOODTHINNER 05/1310/09/24 History apremilast 30 mg tablet (Otezla) 30 mg PO DAILY ARTHRITIS 10/09/24 10/08/24 History bupropion HCl 150 mg 24 hr tablet, 150 mg PO DAILY MOOD 10/09/24 History extended release clobetasol 0.05 % scalp solution See Rx Instructions topical 10/08/24 History .COMPLEX SCALP gabapentin 600 mg tablet 600 mg PO QHS PAIN 10/09/24 History warfarin 2.5 mg tablet 2.5 mg PO SUFRSA BLOOD THNNER 09/1210/03/24 History Allergy/AdvReac Type Severity Reaction Status Date / Time No Known Allergies Allergy Verified 10/09/24 14:01 Surgical History Status post laparoscopic cholecystectomy ( 06/2021) Social History household members: spouse housing: house Smoking Status: Former smoker ROS Constitutional Constitutional: Denies chills, fever(s) or malaise Eyes Eyes: Denies blurry vision or change in vision ENT HEENT: Reports none Cardiovascular Cardiovascular: Denies chest pain or palpitations Respiratory/Chest Respiratory/Chest: Denies cough or shortness of breath with exertion Gastrointestinal Gastrointestinal: Denies abdominal pain, constipation or diarrhea Musculoskeletal Musculoskeletal: Denies back pain, joint stiffness or joint swelling Integumentary Integumentary: Denies dry skin, jaundice, lesions or rash Neurologic Neurologic: Denies confusion, syncope or weakness Psychiatric Psychiatric: Reports none; Denies anxiety or depression Endocrine Endocrinology: Denies excessive sweating, fatigue or flushing Hematologic/Lymphatic Hematologic/Lymphatic: Denies anemia, easy bleeding or easy bruising Medical Records Data Attestation: I reviewed the patient's medical records Medical Nutrition Assessment Dietitian: Malnutrition Criteria Met Start: 10/10/24 13:02 Freq: Status: Active Protocol: Document 10/10/24 13:02 SLA (Rec: 10/10/24 13:02 SLA 10.10.25.7) Nutrition (more content not included)... Normal [facility] Prothrombin Time w/INRon INR Coag (PPP) [Relative time] 1.8 {INR} Normal [facility] Comment on above: Performed By: #### L 300.3900 ####[facility] [address] [facility] [place], [address] PT Coag (PPP) [Time] 21.0 s High 11.7-14.9 [facility] Comment on above: Performed By: #### L 300.3900 ####[facility] [address] [facility] [place], [address] Urine Cultureon 10-11-2024 URC Escherichia coli [place] Count 80,000-100,000 Escherichia coli: REACTION Ampicillin Islt JUANA 4 Ampicillin+Sulbac Islt JUANA <=2 S Cefepime Islt JUANA <=0.12 S cefTRIAXone Islt JUANA <=0.25 S Ciprofloxacin Islt JUANA <=0.06 S B-Lactamase Extended Susc Islt NEG Gentamicin Islt JUANA <=1 S levoFLOXacin Islt JUANA <=0.12 S Meropenem Islt JUANA <=0.25 S Nitrofurantoin Islt JUANA <=16 S Pip+Tazo Islt JUANA <=4 S TMP SMX Islt JUANA <=20 S Normal [facility] Comment on above: Performed By: #### M 100.3819 ####[facility] [address] [facility] [place], [address] Abdomen/Pelvis without Conto n 10-10-2024 Abdomen/Pelvis without Cont [facility] Imaging Services [address] [place] [address] Abdomen/Pelvis without Cont MR#: [id number] Acct: [id number] Name: YAZAN NOLASCO Rep #: [id number] : 1950 M 74 From: Luis Vásquez MD PCP: Dr. Dee Ashley MD Status: ADM IN Study: Abdomen/Pelvis without Cont Date of Exam: 09/12 10/04 Exam# [id number] Ordering Dr: Sd Chatman MD PROCEDURE: ABDOMEN/PELVIS WITHOUT CONT REASON FOR EXAM: Rule out kidney stone TECHNIQUE: Abdomen and pelvis CT without intravenous contrast. COMPARISON: 07/10/2024. FINDINGS: Noncontrast technique limits evaluation of the abdominal and pelvic viscera. Lung bases: Bibasilar atelectasis and scarring Liver: Nodular contour of liver.. Gallbladder: Surgically absent. No discrete masses. Spleen: Unremarkable. Pancreas: Unremarkable. Adrenals: Unremarkable. Kidneys: Bilateral atrophic kidneys. There is a 7 mm distal ureteral calculus in the left UVJ with no evidence of hydroureter or hydronephrosis. There is a superior pole hypodense mass in the left kidney measuring 4.3 cm. Bladder: Unremarkable. Reproductive Organs: Prostate measures 5.1 cm in transverse dimension. Bowel: Unremarkable. Appendix: Normal. Lymph nodes: No suspicious lymph node enlargement. Vasculature: Atherosclerotic changes with no evidence of aneurysm. Peritoneum / Retroperitoneum: No ascites. No free air. Bones: Multilevel degenerative changes in the thoracolumbar spine. CT/Abdomen/Pelvis without Cont IMPRESSION: 1. Left ureteral calculus at the level of the UVJ with no evidence of hydroureter or left hydronephrosis. 2. Left renal cyst. 3. Cirrhosis 4. Prostatomegaly 5. Sigmoid diverticulosis with no evidence of diverticulitis One or more dose reduction techniques were used (e.g., Automated exposure control, adjustment of the mA and/or kV according to patient size, use of iterative reconstruction technique). Reading Location: [facility] CC: Dr. Dee Ashley MD; Dr. Sd Chatman MD Feed Blender: Signed Normal [facility] Basic Metabolic Profile (BMP )on 10-10-2024 BUN/CRE 7.5 RATIO Low 10-20 [facility] Comment on above: Performed By: #### L 500.2500, L300.3900, L100.0500 ####[facility] [address] [place], [address] CA,Total 8.4 mg/dL Low 8.5-10.1 [facility] Comment on above: Performed By: #### L 500.2500, L300.3900, L100.0500 ####[facility] [address] [place], [address] Chloride [Moles/Vol] 106 mmol/L Normal 98-107 [facility] Comment on above: Performed By: #### L 500.2500, L300.3900, L100.0500 ####[facility] [address] [place], [address] CO2 [Moles/Vol] 26.0 mmol/L Normal 21.0-32.0 [facility] Comment on above: Performed By: #### L 500.2500, L300.3900, L100.0500 ####[facility] [address] [place], [address] Creatinine [Mass/Vol] 1.34 mg/dL High 0.70-1.30 [facility] Comment on above: Result Comment: The validity of the calculated GFR GFRAA in patients over 70 years has not been determined. Clinical correlation is essential. Performed By: #### L 500.2500, L300.3900, L100.0500 ####[facility] [address] [place], [address] ECRCL 56.08 ml/min Normal [facility] Comment on above: Performed By: #### L 500.2500, L300.3900, L100.0500 ####[facility] [address] [place], [address] EST GFR - AA 67 mL/min Normal >60 [facility] Comment on above: Result Comment: Afri can Cymraes GFR Calc Performed By: #### L 500.2500, L300.3900, L100.0500 ####[facility] [address] [place], [address] GAP 5 Normal 5-15 [facility] Comment on above: Performed By: #### L 500.2500, L300.3900, L100.0500 ####[facility] [address] [place], [address] GFR/1.73 sq M.predicted among non-blacks MDRD (S/P/Bld) [Vol rate/Area] 55 mL/min/{1.73_m2} Low >60 [facility] Comment on above: Result Comment: Non- GFR Calc Performed By: #### L 500.2500, L300.3900, L100.0500 ####[facility] [address] [place], [address] Glucose [Mass/Vol] 73 mg/dL Low 74-106 [facility] Comment on above: Performed By: #### L 500.2500, L300.3900, L100.0500 ####[facility] [address] [place], [address] Potassium [Moles/Vol] 3.7 mmol/L Normal 3.5-5.1 [facility] Comment on above: Performed By: #### L 500.2500, L300.3900, L100.0500 ####[facility] [address] [place], [address] Sodium [Moles/Vol] 137 mmol/L Normal 136-145 [facility] Comment on above: Performed By: #### L 500.2500, L300.3900, L100.0500 ####[facility] [address] [place], [address] Urea nitrogen [Mass/Vol] 10 mg/dL Normal 7-18 [facility] Comment on above: Performed By: #### L 500.2500, L300.3900, L100.0500 ####[facility] [address] [place], [address] Bedside Glucoseon 10-10-2024 FINGERSTICK GLU 93 mg/dL Normal 74-106 [facility] Comment on above: Result Comment: BETH MARTINEZ OF PATIENT CARE PER NURSING PROTOCOL Performed By: #### L 501.080 ####[facility] [address] [place], [address] FINGERSTICK GLU 90 mg/dL Normal 74-106 [facility] Comment on above: Result Comment: BETH GEMENT OF PATIENT CARE PER NURSING PROTOCOL Performed By: #### L 501.080 #### [facility] [address] [place], [address] FINGERSTICK GLU 95 mg/dL Normal 74-106 [facility] Comment on above: Result Comment: BETH GEMENT OF PATIENT CARE PER NURSING PROTOCOL Performed By: #### L 501.080 #### [facility] [address] [place], [address] FINGERSTICK GLU 94 mg/dL Normal 74-106 [facility] Comment on above: Result Comment: BETH GEMENT OF PATIENT CARE PER NURSING PROTOCOL Performed By: #### L 501.080 #### [facility] [address] [place], [address] FINGERSTICK GLU 76 mg/dL Normal 74-106 [facility] Comment on above: Result Comment: BETH GEMENT OF PATIENT CARE PER NURSING PROTOCOL Performed By: #### L 501.080 ####[facility] [address] [place], [address] Brain/Head without Contrasto n 10-10-2024 Brain/Head without Contrast [facility] Imaging Services [address] [place] [address] Brain/Head without Contrast MR#: [id number] Acct: [id number] Name: YAZAN NOLASCO Rep #: [id number] : 1950 M 74 From: Tiago Molina MD PCP: Dr. Dee Ashley MD Status: ADM IN Study: Brain/Head without Contrast Date of Exam: 09/12 10/04 Exam# [id number] Ordering Dr: Sd Chatman MD PROCEDURE: BRAIN/HEAD WITHOUT CONTRAST REASON FOR EXAM: Bilateral lower extremity weakness. TECHNIQUE: Contiguous axial scans of 3.75 millimeter slice thicknesses with sagittal and coronal reconstruction images. One or more dose reduction techniques were utilized (e.g., automated exposure control, adjustment of mA and/or kv according to patient size, use of iterative reconstruction technique). IV CONTRAST: Not given. COMPARISON: CT brain dated 10/09/2024. FINDINGS: No intraparenchymal hemorrhage. Small left basal ganglia area of hypodensity, stable No mass effect or midline shift. Bilateral central white matter, periventricular, and subcortical hypoattenuation. Ventricles and cisterns are appropriately sized for patient's age. Age-appropriate senescent change. No extra-axial fluid collections. Cerebellum and posterior fossa unremarkable. Paranasal sinuses normal. Mastoid air cells are normal. Vertebrobasilar atherosclerotic calcific disease. Calvarium unremarkable. Soft tissues unremarkable. CT/Brain/Head without Contrast IMPRESSION: 1. Chronic microvascular ischemic changes. 2. No acute intracranial abnormalities are demonstrated. 3. Age-appropriate senescent changes. Reading Location: [facility] CC: Dr. Dee Ashley MD; Dr. Sd Chatman MD Feed Blender: Signed Normal [facility] CBC-Complete Blood Cnt No Di ffon 10-10-2024 Erythrocyte distribution width (RBC) [Ratio] 15.7 % High 11.6-14.6 [facility] Comment on above: Performed By: #### L 500.2500, L300.3900, L100.0500 ####[facility] [address] [place], [address] Hematocrit (Bld) [Volume fraction] 35.6 % Low 40-54 [facility] Comment on above: Performed By: #### L 500.2500, L300.3900, L100.0500 ####[facility] [address] [place], [address] Hemoglobin (Bld) [Mass/Vol] 11.9 g/dL Low 13.0-16.5 [facility] Comment on above: Performed By: #### L 500.2500, L300.3900, L100.0500 ####[facility] [address] [place], [address] MCH (RBC) [Entitic mass] 27.7 pg Normal 27.0-32.0 [facility] Comment on above: Performed By: #### L 500.2500, L300.3900, L100.0500 ####[facility] [address] [place], [address] MCHC (RBC) [Mass/Vol] 33.4 g/dL Normal 32-36 [facility] Comment on above: Performed By: #### L 500.2500, L300.3900, L100.0500 ####[facility] [address] [place], [address] MCV (RBC) [Entitic vol] 82.8 fL Normal 80-94 [facility] Comment on above: Performed By: #### L 500.2500, L300.3900, L100.0500 ####[facility] [address] [place], [address] Platelet mean volume (Bld) [Entitic vol] 11.9 fL Normal 6.2-12.0 [facility] Comment on above: Performed By: #### L 500.2500, L300.3900, L100.0500 ####[facility] [address] [place], [address] Platelets (Bld) [#/Vol] 82 10*3/uL Low 150-450 [facility] Comment on above: Performed By: #### L 500.2500, L300.3900, L100.0500 ####[facility] [address] [place], [address] RBC (Bld) [#/Vol] 4.30 10*6/uL Low 4.6-6.2 [facility] Comment on above: Performed By: #### L 500.2500, L300.3900, L100.0500 ####[facility] [address] [place], [address] RDW SD 47.1 fl High 35.1-43.9 [facility] Comment on above: Performed By: #### L 500.2500, L300.3900, L100.0500 ####[facility] [address] [place], [address] WBC (Bld) [#/Vol] 4.8 10*3/uL Normal 4.4-11.0 [facility] Comment on above: Performed By: #### L 500.2500, L300.3900, L100.0500 ####[facility] [address] [place], [address] Hemoglobin A1con 10-10-2024 HbA1c (Bld) [Mass fraction] 4.5 % Normal 3.8-5.6 [facility] Comment on above: Result Comment: Norm al < 5.7 % Prediabetic 5.7 - 6.4 % Diabetic >or= 6.5 % Please note range changes. Performed By: #### L 501.080 #### [facility] [address] [place], [address] Prothrombin Time w/INRon INR Coag (PPP) [Relative time] 1.9 {INR} Normal [facility] Comment on above: Performed By: #### L 500.2500, L300.3900, L100.0500 ####[facility] [address] [place], [address] PT Coag (PPP) [Time] 22.4 s High 11.7-14.9 [facility] Comment on above: Performed By: #### L 500.2500, L300.3900, L100.0500 ####[facility] [address] [place], [address] 12 Lead EKGon 10-09-2024 12 Lead EKG [facility] Cardiovascular Services [address] [place] [address] 12 Lead EKG 10/09/24 1503 MR#: [id number] Acct: [id number] Name: YAZAN NOLASCO Rep #: [id number] : 1950 74 From: Rohan Lewis MD Attending Dr: Dr. Sd Chatman MD Status: ADM IN Ordering Dr: Luis Brown Date: 10/09/24 Location: [facility] Sex: M C Admitted: 10/09/24 Test Reason : Blood Pressure : */* mmHG Vent. Rate : 70 BPM Atrial Rate : 70 BPM P-R Int : * ms QRS Dur : 200 ms QT Int : 510 ms P-R-T Axes : * -79 94 degrees QTcB Int : 550 ms Ventricular-paced rhythm with occasional AV dual-paced complexes Abnormal ECG Confirmed by ROHAN LEWIS MD ([id number]), manuscript editor EDUARDO DERAS ([id number]) on 10/13/2024 6:05:10 AM Referred By: JORDAN Confirmed By: ROHAN LEWIS MD 10/13/24 0605 Date Rohan Lewis MD CC: ADRIENNE Brown; Dr. Dee Ashley MD; Dr. Sd Chatman MD Signed Normal [facility] BNP,B-Type NATRIURETIC PEPTI Kayla 10-09-2024 Natriuretic peptide B (Bld) [Mass/Vol] 118.2 pg/mL High 0-100 [facility] Comment on above: Performed By: #### L 503.6620, L501.9520, L501.4020, L501.2450, L500.4050 ####[facility] [address] [place], [address] Bedside Glucoseon 10-09-2024 FINGERSTICK GLU 110 mg/dL High 74-106 [facility] Comment on above: Result Comment: BETH GEMENT OF PATIENT CARE PER NURSING PROTOCOL Performed By: #### L 501.080 ####[facility] [address] [place], [place], [address] Brain/Head without Contrasto n 10-09-2024 Brain/Head without Contrast [facility] Imaging Services [address] [place] [address] Brain/Head without Contrast MR#: [id number] Acct: [id number] Name: YAZAN NOLASCO Rep #: [id number] : 1950 M 74 From: Alondra Souza PCP: Dr. 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 TECHNIQUE: CT head without contrast, with sagittal and coronal reconstructed images COMPARISON: None. FINDINGS: Bilateral orbital postsurgical changes are seen. No acute orbital process is noted. The paranasal sinuses appear clear, as do the mastoid air cells. No acute osseous process is seen. No intracranial hemorrhage, mass, or mass effect is noted. The ventricles appear symmetric and within the normal range for age. A hypodensity of the left basal ganglia, likely represents a chronic lacunar infarction. Bilateral cerebral white matter hypodensities, predominantly periventricular, are most consistent with chronic ischemic changes of small-vessel disease. CT/Brain/Head without Contrast IMPRESSION: 1. No acute intracranial process is seen. 2. Additional findings as noted. One or more dose reduction techniques were used (e.g., Automated exposure control, adjustment of the mA and/or kV according to patient size, use of iterative reconstruction technique). Reading Location: [facility]IXH6-[facility] CC: ADRIENNE Brown; Dr. Dee Ashley MD Feed Blender: Signed [facility] [facility] CBC W/Diff, Automatedon 09-12 Anisocytosis Ql (Bld) 1+ Normal [facility] Comment on above: Performed By: #### L 100.0100 ####[facility] [address] [place], [address] PLT EST SLT DEC Normal ADEQ [facility] Comment on above: Performed By: #### L 100.0100 ####[facility] [address] [place], [address] PLT MORPH LARGE Normal [facility] Comment on above: Performed By: #### L 100.0100 ####[facility] [address] [place], [address] CNOVon 10-09-2024 CNOV Normal [facility] Chest 1 View (Portable)on Chest 1 View (Portable) [facility] Imaging Services [address] [place] [address] Chest 1 View (Portable) MR#: [id number] Acct: [id number] Name: YAZAN NOLASCO Rep #: [id number] : 1950 M 74 From: Alondra Souza PCP: Dr. Dee Ashley MD Status: REG ER Study: Chest 1 View (Portable) Date of Exam: 10/09/24 Exam# [id number] Ordering Dr: Luis Brown CHIEF MERCHANDISING OFFICER-[place] PROCEDURE: CHEST 1 VIEW (PORTABLE) REASON FOR EXAM: Cough. TECHNIQUE: AP portable upright chest. COMPARISON: Chest x-ray of 02/25/2024. RAD/Chest 1 View (Portable) IMPRESSION: Examination somewhat limited by patient motion. No acute pneumonic process is clearly evident. No pleural effusion or pneumothorax is seen. Left thoracic transvenous pacemaker/AICD device with leads appears stable. The cardiomediastinal silhouette is unchanged, with a somewhat calcified and tortuous aorta noted. No evidence of cardiomegaly. Old left mid clavicular fracture, with associated deformity. No interval osseous change is seen. Reading Location: [address] CC: ADRIENNE Brown; Dr. Dee Ashley MD Feed Blender: Signed Normal [facility] Comprehensive Metabolic Prof ilon 10-09-2024 Albumin [Mass/Vol] 2.8 g/dL Low 3.2-5.0 [facility] Comment on above: Order Comment: 'TROP ' Serial specimen #1, #2 or #3: 1 Performed By: #### L 503.6620, L501.9520, L501.4020, L501.2450, L500.4050 ####[facility] [address] [place], [address] Albumin/Globulin [Mass ratio] 0.8 {ratio} Low 0.9-2.4 [facility] Comment on above: Order Comment: 'TROP ' Serial specimen #1, #2 or #3: 1 Performed By: #### L 503.6620, L501.9520, L501.4020, L501.2450, L500.4050 ####[facility] [address] [place], [address] ALK P 134 U/L High 45-117 [facility] Comment on above: Order Comment: 'TROP ' Serial specimen #1, #2 or #3: 1 Performed By: #### L 503.6620, L501.9520, L501.4020, L501.2450, L500.4050 ####[facility] [address] [place], [address] ALT [Catalytic activity/Vol] 19 U/L Normal 16-61 [facility] Comment on above: Order Comment: 'TROP ' Serial specimen #1, #2 or #3: 1 Performed By: #### L 503.6620, L501.9520, L501.4020, L501.2450, L500.4050 ####[facility] [address] [place], [address] AST [Catalytic activity/Vol] 16 U/L Normal 15-37 [facility] Comment on above: Order Comment: 'TROP ' Serial specimen #1, #2 or #3: 1 Performed By: #### L 503.6620, L501.9520, L501.4020, L501.2450, L500.4050 ####[facility] [address] [place], [address] Bilirubin [Mass/Vol] 0.70 mg/dL Normal 0.20-1.00 [facility] Comment on above: Order Comment: 'TROP ' Serial specimen #1, #2 or #3: 1 Result Comment: For patients on eltrombopag therapy, use of Dimension [place] TBIL is not recommended. Performed By: #### L 503.6620, L501.9520, L501.4020, L501.2450, L500.4050 ####[facility] [address] [place], [address] BUN/CRE 7.0 RATIO Low 10-20 [facility] Comment on above: Order Comment: 'TROP ' Serial specimen #1, #2 or #3: 1 Performed By: #### L 503.6620, L501.9520, L501.4020, L501.2450, L500.4050 ####[facility] [address] [place], [address] CA,Total 8.7 mg/dL Normal 8.5-10.1 [facility] Comment on above: Order Comment: 'TROP ' Serial specimen #1, #2 or #3: 1 Performed By: #### L 503.6620, L501.9520, L501.4020, L501.2450, L500.4050 ####[facility] [address] [place], [address] Chloride [Moles/Vol] 104 mmol/L Normal 98-107 [facility] Comment on above: Order Comment: 'TROP ' Serial specimen #1, #2 or #3: 1 Performed By: #### L 503.6620, L501.9520, L501.4020, L501.2450, L500.4050 ####[facility] [address] [place], [address] CO2 [Moles/Vol] 27.0 mmol/L Normal 21.0-32.0 [facility] Comment on above: Order Comment: 'TROP ' Serial specimen #1, #2 or #3: 1 Performed By: #### L 503.6620, L501.9520, L501.4020, L501.2450, L500.4050 ####[facility] [address] [place], [address] Creatinine [Mass/Vol] 1.43 mg/dL High 0.70-1.30 [facility] Comment on above: Order Comment: 'TROP ' Serial specimen #1, #2 or #3: 1 Result Comment: The validity of the calculated GFR GFRAA in patients over 70 years has not been determined. Clinical correlation is essential. Performed By: #### L 503.6620, L501.9520, L501.4020, L501.2450, L500.4050 ####[facility] [address] [place], [address] ECRCL 52.56 ml/min Normal [facility] Comment on above: Order Comment: 'TROP ' Serial specimen #1, #2 or #3: 1 Performed By: #### L 503.6620, L501.9520, L501.4020, L501.2450, L500.4050 ####[facility] [address] [place], [address] EST GFR - AA 62 mL/min Normal >60 [facility] Comment on above: Order Comment: 'TROP ' Serial specimen #1, #2 or #3: 1 Result Comment: Afri can Cymraes GFR Calc Performed By: #### L 503.6620, L501.9520, L501.4020, L501.2450, L500.4050 ####[facility] [address] [place], [address] GAP 5 Normal 5-15 [facility] Comment on above: Order Comment: 'TROP ' Serial specimen #1, #2 or #3: 1 Performed By: #### L 503.6620, L501.9520, L501.4020, L501.2450, L500.4050 ####[facility] [address] [place], [address] GFR/1.73 sq M.predicted among non-blacks MDRD (S/P/Bld) [Vol rate/Area] 51 mL/min/{1.73_m2} Low >60 [facility] Comment on above: Order Comment: 'TROP ' Serial specimen #1, #2 or #3: 1 Result Comment: Non- GFR Calc Performed By: #### L 503.6620, L501.9520, L501.4020, L501.2450, L500.4050 ####[facility] [address] [place], [address] Globulin (S) [Mass/Vol] 3.5 g/dL Normal 2.2-4.2 [facility] Comment on above: Order Comment: 'TROP ' Serial specimen #1, #2 or #3: 1 Performed By: #### L 503.6620, L501.9520, L501.4020, L501.2450, L500.4050 ####[facility] [address] [place], [address] Glucose [Mass/Vol] 101 mg/dL Normal 74-106 [facility] Comment on above: Order Comment: 'TROP ' Serial specimen #1, #2 or #3: 1 Result Comment: Fast ing Glucose result from 100 to 125 mg/dL suggests IMPAIRED HOMEOSTASIS per A.D.A. criteria. Performed By: #### L 503.6620, L501.9520, L501.4020, L501.2450, L500.4050 ####[facility] [address] [place], [address] Potassium [Moles/Vol] 4.0 mmol/L Normal 3.5-5.1 [facility] Comment on above: Order Comment: 'TROP ' Serial specimen #1, #2 or #3: 1 Performed By: #### L 503.6620, L501.9520, L501.4020, L501.2450, L500.4050 ####[facility] [address] [place], [address] Sodium [Moles/Vol] 136 mmol/L Normal 136-145 [facility] Comment on above: Order Comment: 'TROP ' Serial specimen #1, #2 or #3: 1 Performed By: #### L 503.6620, L501.9520, L501.4020, L501.2450, L500.4050 ####[facility] [address] [place], [address] T PROT 6.3 g/dL Low 6.4-8.2 [facility] Comment on above: Order Comment: 'TROP ' Serial specimen #1, #2 or #3: 1 Performed By: #### L 503.6620, L501.9520, L501.4020, L501.2450, L500.4050 ####[facility] [address] [place], [address] Urea nitrogen [Mass/Vol] 10 mg/dL Normal 7-18 [facility] Comment on above: Order Comment: 'TROP ' Serial specimen #1, #2 or #3: 1 Performed By: #### L 503.6620, L501.9520, L501.4020, L501.2450, L500.4050 ####[facility] [address] [place], [address] Emergency Department Summary on 10-09-2024 Emergency Department Summary [facility] Medical Records Department [address] [place] [address] Emergency Department Summary 10/09/24 MR#: [id number] Acct: [id number] Name: YAZAN NOLASCO Rep #: [id number] : 1950 74 From: Alireza De La O MD PCP: Dr. Dee Ashley MD Status:ADM IN Location: [facility] [id number] HPI History of Present Illness Chief Complaint: General Illness Narrative Narrative: Patient is a 74-year-old male with history of paroxysmal atrial fibrillation on Coumadin, hyperlipidemia, diabetes who presents to the emergency department for ongoing fatigue. Per the patient, he has not been doing well for 2 months. Patient states he has had more recent falls, his states that he cannot do anything on his own, he cannot dress himself. He was at his PCPs office today who referred him to the emergency department for further workup. [facility] Medical History Injury of head and neck Cancer Hepatitis Former smoker CPAP (continuous positive airway pressure) dependence Sleep apnea Atrial fibrillation ICD (implantable cardioverter-defibrillator) in place Pacemaker Hypertension Acute calculous cholecystitis Hyperlipemia Diabetic neuropathy HTN (hypertension) Diabetes Home Medications ???Medication ???Instructions ???Recorded ???Last Taken ???Type allopurinol 100 mg tablet 200 mg PO DAILYCM GOUT 05/12/14 History aspirin 81 mg chewable tablet 81 mg PO DAILY@0800 HEALTH 4 10/08/24 History atorvastatin 20 mg tablet 20 mg PO QODAY CHOLESTEROL 4 10/07/24 History duloxetine 60 mg capsule,delayed 60 mg PO DAILY MOOD 05/12/1410/09 History release hydrochlorothiazide 25 mg tablet 25 mg PO DAILY BP 05/12/14 5 History insulin glargine 100 unit/mL (3 24 units subcut QHS DM 05/12/14 History mL) subcutaneous pen (Lantus Solostar U-100 Insulin) lisinopril 40 mg tablet 40 mg PO DAILY BP 05/12/14 5 History potassium chloride 10 mEq 10 meq PO BID SUPPLEMENT 05/12/14 10/09/24 History tablet,extended release (Klor-Con) acetaminophen 500 mg tablet 1,000 mg PO BID PRN Pain 06/09/21 06/09/21 07:00 History amlodipine 5 mg tablet 5 mg PO DAILY BP 06/09/21 10/09/24 History magnesium oxide 400 mg PO BID SUPPLEMENT 06/09/21 10/09/24 History metoprolol tartrate 100 mg tablet 100 mg PO BID HEART 06/09/2109/12 History tamsulosin 0.4 mg capsule 0.8 mg PO DAILY PROSTATE 06/09/21 10/08/24 History warfarin 5 mg tablet 5 mg PO MOTUWETH BLOODTHINNER 05/1310/09/24 History apremilast 30 mg tablet (Otezla) 30 mg PO DAILY ARTHRITIS 10/09/24 10/08/24 History bupropion HCl 150 mg 24 hr tablet, 150 mg PO DAILY MOOD 10/09/24 History extended release clobetasol 0.05 % scalp solution See Rx Instructions topical 10/08/24 History .COMPLEX SCALP gabapentin 600 mg tablet 600 mg PO QHS PAIN 10/09/24 History warfarin 2.5 mg tablet 2.5 mg PO SUFRSA BLOOD THNNER 09/1210/03/24 History Allergy/AdvReac Type Severity Reaction Status Date / Time No Known Allergies Allergy Verified 10/09/24 14:01 Surgical History Status post laparoscopic cholecystectomy ( 06/2021) Social History (Updated 10/09/24 @ 16:25 by Samia Veronica) household members: spouse housing: house Smoking Status: Former smoker ROS ROS ED ROS Narrative Constitutional: Negative for fever, chills, weight loss. Positive for weakness Eyes: Negative for vision loss, vision change, double vision ENT: Negative for any sore throat, ear pain, congestion Cardiovascular: Negative for any chest pain, tightness, palpitations Respiratory: Negative for any cough, sputum production, hemoptysis, dyspnea, dyspnea on exertion, orthopnea Gastrointestinal: Negative for any nausea, vomiting, diarrhea, constipation, blood in stool, blood in vomit. Positive for chronic epigastric pain : Negative for any urinary frequency, dysuria, retention, blood in urine Muscle skeletal: Negative for any neck pain, back pain Neurological: Negative for any headache, syncope, dizziness Skin: Negative for any rashes, itching, abrasions, lacerations Psychiatric: Negative for any depression, anxiety, stress, suicidal ideation, homicidal ideation Hematologic: Negative for any excessive bruising, easy bleeding EXAM Physical Exam Narrative Exam Narrative: Vital signs reviewed. Patient does look worn out, he does look tired appearing. Slightly pale HEET: Head normocephalic atraumatic, TMs clear bilaterally. Posterior pharynx is clear, dry mucous membranes. Nares clear bilaterally. Neck: Supple with no lymphadenopathy or tenderness. No signs of meningismus. Cardiac: Regular rate and (more content not included)... Normal [facility] H AND P Exam - Hospitaliston 10-09-2024 H&P Exam - Hospitalist [facility] Medical Records Department [address] [place] [address] H P Exam - Hospitalist 10/09/24 1823 MR#: [id number] Acct: [id number] Name: YAZAN NOLASCO Rep #: [id number] : 1950 74 From: Lv Pink DO PCP: Dr. Dee Ashley MD Status:ADM IN Location: [facility] [id number] HPI - General General Date of Admission: 10/09/24 Date of Service: 10/09/24 Chief Complaint: Worsening fatigue with weakness and falls HPI Narrative YAZAN NOLASCO, is a 74 M who presented to [facility] ED on 10/09/2024 with worsening fatigue with weakness and falls at home. 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 Notes that for the past few months he has developed worsening weakness, and he has now had a few small falls at home. States he can hardly do anything for himself, and his is having more difficulty with helping him. He cannot even dress himself at this point. He went to his PCP office today who then referred him to the ED for further evaluation. In the ED he was hemodynamically stable on room air at rest. Labs were fairly unremarkable. UA did show 500 leukocyte esterase, positive nitrites, 4+ bacteria. Patient denies any UTI symptoms but does report significant difficulty with emptying his bladder due to prostate issues. States that the Flomax that he takes at home has been somewhat helpful for this. Denies any fevers or chills. Given his UTI and significant weakness, hospitalist was contacted for admission. I saw the patient at bedside in the ED. Patient was sitting up comfortably in bed, conversing normally, in no acute distress. He was sharp mentally with conversation. Notes that he has simply felt progressively more weak and debilitated over the past few months. Notes worsening general bilateral leg weakness and is unable to walk at this point. He does have a walker and wheelchair at home and has been using the wheelchair recently to get around. He states that he was not using either of these things until 3 months ago or so. Reports generalized hip pain that he attributes to arthritis, denies any new pain or discomfort. He also reports poor appetite over the past few months and states he has lost 20 to 30 pounds. 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 Former tobacco user but quit many years ago as well. Denies any other drug use. Denies any recent changes to medications that he is aware of. No other acute concerns this time. [facility] Medical History Injury of head and neck Cancer Hepatitis Former smoker CPAP (continuous positive airway pressure) dependence Sleep apnea Atrial fibrillation ICD (implantable cardioverter-defibrillator) in place Pacemaker Hypertension Acute calculous cholecystitis Hyperlipemia Diabetic neuropathy HTN (hypertension) Diabetes Home Medications ???Medication ???Instructions ???Recorded ???Last Taken ???Type allopurinol 100 mg tablet 200 mg PO DAILYCM GOUT 05/12/14 History aspirin 81 mg chewable tablet 81 mg PO DAILY@0800 HEALTH 4 10/08/24 History atorvastatin 20 mg tablet 20 mg PO QODAY CHOLESTEROL 4 10/07/24 History duloxetine 60 mg capsule,delayed 60 mg PO DAILY MOOD 05/12/1410/09 History release hydrochlorothiazide 25 mg tablet 25 mg PO DAILY BP 05/12/1410/09/ 5 History insulin glargine 100 unit/mL (3 24 units subcut QHS DM 05/12/14 History mL) subcutaneous pen (Lantus Solostar U-100 Insulin) lisinopril 40 mg tablet 40 mg PO DAILY BP 05/12/14 5 History potassium chloride 10 mEq 10 meq PO BID SUPPLEMENT 05/12/14 10/09/24 History tablet,extended release (Klor-Con) acetaminophen 500 mg tablet 1,000 mg PO BID PRN Pain 06/09/21 06/09/21 07:00 History amlodipine 5 mg tablet 5 mg PO DAILY BP 06/09/21 10/09/24 History magnesium oxide 400 mg PO BID SUPPLEMENT 06/09/21 10/09/24 History metoprolol tartrate 100 mg tablet 100 mg PO BID HEART 06/09/2109/12 History tamsulosin 0.4 mg capsule 0.8 mg PO DAILY PROSTATE 06/09/21 10/08/24 History warfarin 5 mg tablet 5 mg PO MOTUWETH BLOODTHINNER 05/1310/09/24 History apremilast 30 mg tablet (Otezla) 30 mg PO DAILY ARTHRITIS 10/09/24 10/08/24 History bupropion HCl 150 mg 24 hr tablet, 150 mg PO DAILY MOOD 10/09/24 History extended release clobetasol 0.05 % scalp solution See Rx Instructions topical 10/08/24 History .COMPLEX SCALP gabapentin 600 mg tablet 600 mg PO QHS PAIN 10/09/24 History warfarin 2.5 mg tablet 2.5 mg PO SUFRSA BLOOD THNNER 09/1210/03/24 History Allergy/AdvReac Type Severity Reaction Status Date / Time No Known Allergies A (more content not included)... Normal [facility] Kidney and Bladderon 025 Kidney and Bladder [facility] Imaging Services [address] [place] [address] Kidney and Bladder MR#: [id number] Acct: [id number] Name: YAZAN NOLASCO Rep #: [id number] : 1950 M 74 From: Davon edmond MD PCP: Dr. Dee Ashley MD Status: ADM IN Study: Kidney and Bladder Date of Exam: 10/09/24 Exam# [id number] Ordering Dr: Lv Pink DO PROCEDURE: KIDNEY AND BLADDER REASON FOR EXAM: Abdominal pain. UTI. TECHNIQUE: Ultrasound of the kidneys and bladder COMPARISON: None. FINDINGS: Normal renal sizes, parenchymal thicknesses, and echotextures. No hydronephrosis. There is 1.2 cm x 1.4 cm 1.5 cm slightly echogenic nodule in the upper pole of the right kidney.. This may represent a small angiomyolipoma. There is a 4.2 cm x 3.8 cm x 3.8 cm cyst with septation in the upper pole of the left kidney. In the lower pole of the left kidney, there is a 1.3 cm x 1.2 cm x 1.1 cm cyst. Grossly normal bladder contour. No large bladder wall mass visualized. RIGHT Kidney Size: 11.9 cm x 6.2 cm x 5.5 cm Cortical Thickness (if discernible): 1.2 cm (>6mm is normal) LEFT Kidney Size: 11.9 cm x 6.2 cm x 6.9 cm Cortical Thickness (if discernible): 1.3 cm (>6mm is normal) Findings suggestive of a 1 cm x 0.5 cm x 0.3 cm calculus in the distal left ureter. BLADDER: Prevoid volume: 306.1 mL US/Kidney and Bladder IMPRESSION: Questionable 1 cm x 0.5 cm x 0.3 cm calculus in the distal left ureter. Left renal cysts. 1.3 cm by 1.2 cm x 1.5 cm echogenic nodule in the upper pole of the right kidney suggestive of a possible small angiomyolipoma. Reading Location: [place] [address] CC: Dr. Lv Pink DO; Dr. Dee Ashley MD Feed Blender: Signed Normal [facility] L501.4020on 10-09-2024 TROPONIN-I HS 14 pg/mL Normal 3.0-78.0 [facility] Comment on above: Order Comment: 'TROP ' Serial specimen #1, #2 or #3: 1 Result Comment: Plea se Note: New Test Units and Gender Specific Reference Ranges. For more information see Policy Stat Procedure [place] High Sensitivity Troponin (TNIH) and attachments. Performed By: #### L 821.7000, L501.9520, L501.4020, L501.2450, L500.4050 ####[facility] [address] [place], [address] Lactic Acidon 10-09-2024 Lactate [Moles/Vol] 1.8 mmol/L Normal 0.4-1.9 [facility] Comment on above: Order Comment: Y Performed By: #### L 503.6005 ####[facility] [address] [place], [address] Lipaseon 10-09-2024 Lipase [Catalytic activity/Vol] 18 U/L Normal 13-75 [facility] Comment on above: Order Comment: 'TROP ' Serial specimen #1, #2 or #3: 1 Result Comment: Octavio burgos note: LIPASE revised reference range effective 22. New Lipase methodology. Expected to produce lower values than the previous assay method. NEW Reference Range: 13 - 75 U/L Performed By: #### L 503.6620, L501.9520, L501.4020, L501.2450, L500.4050 ####[facility] [address] [place], [address] M100.678on 10-09-2024 M100.678 Pending SARS-CoV-2 (COVID 19) Negative INFLUENZA A Negative INFLUENZA B Negative RSV PCR Negative Normal [facility] Comment on above: Performed By: #### M 100.678, L400.0001 ####[facility] [address] [place], [address] Prothrombin Time w/INRon INR Coag (PPP) [Relative time] 1.5 {INR} Normal [facility] Comment on above: Performed By: #### L 300.3900 ####[facility] [address] [place], [address] PT Coag (PPP) [Time] 18.8 s High 11.7-14.9 [facility] Comment on above: Performed By: #### L 300.3900 ####[facility] [address] [place], [address] Thyroid Stim Hormone (TSH)on 10-09-2024 TSH 1.250 uIU/mL Normal 0.358-3.740 [facility] Comment on above: Order Comment: 'TROP ' Serial specimen #1, #2 or #3: 1 Performed By: #### L 503.6620, L501.9520, L501.4020, L501.2450, L500.4050 ####[facility] [address] [place], [address] Urinalysis, Completeon 10-09 BACTERIA 4+ /hpf Normal None Seen [facility] Comment on above: Order Comment: COLOR OF URINE MAY AFFECT DIPSTICK RESULTS.FACILITY REHAB DIRECTOR TO SPECIFY Performed By: #### M 100.678, L400.0001 ####[facility] [address] [place], [address] CAST,WBC 0-5 SEEN Normal None Seen [facility] Comment on above: Order Comment: COLOR OF URINE MAY AFFECT DIPSTICK RESULTS.FACILITY REHAB DIRECTOR TO SPECIFY Performed By: #### M 100.678, L400.0001 ####[facility] [address] [place], [address] EPI,TRANSITION 0-5 SEEN Normal 0-5 [facility] Comment on above: Order Comment: COLOR OF URINE MAY AFFECT DIPSTICK RESULTS.FACILITY REHAB DIRECTOR TO SPECIFY Performed By: #### M 100.678, L400.0001 ####[facility] [address] [place], [address] RBC 0-5 SEEN Normal 0-5 [facility] Comment on above: Order Comment: COLOR OF URINE MAY AFFECT DIPSTICK RESULTS.FACILITY REHAB DIRECTOR TO SPECIFY Performed By: #### M 100.678, L400.0001 ####[facility] [address] [place], [address] WBC 25-50 SEEN Normal 0-5 [facility] Comment on above: Order Comment: COLOR OF URINE MAY AFFECT DIPSTICK RESULTS.FACILITY REHAB DIRECTOR TO SPECIFY Performed By: #### M 100.678, L400.0001 ####[facility] [address] [place], [address] EPI,SQUAMOUS 0 SEEN Normal 0-5 [facility] Comment on above: Order Comment: COLOR OF URINE MAY AFFECT DIPSTICK RESULTS.FACILITY REHAB DIRECTOR TO SPECIFY Performed By: #### M 100.678, L400.0001 ####[facility] [address] [place], [address] Mucus Ql (Urine sed) 0 SEEN Normal [facility] Comment on above: Order Comment: COLOR OF URINE MAY AFFECT DIPSTICK RESULTS.FACILITY REHAB DIRECTOR TO SPECIFY Performed By: #### M 100.678, L400.0001 ####[facility] [address] [place], [address] CNPNon 09-25-2024 CNPN Normal [facility] PT panel Coag (PPP)on 2024 INR Coag (Bld) [Relative time] 3 {INR} [facility] CNPNon 08-27-2024 CNPN Normal [facility] PT panel Coag (PPP)on 2023 INR Coag (Bld) [Relative time] 2.7 {INR} 2 - 3 [facility] CNOVon 08-25-2024 CNOV Normal [facility] CNPNon 08-13-2024 CNPN Normal [facility] PT panel Coag (PPP)on 2023 INR Coag (Bld) [Relative time] 2.4 {INR} 2 - 3 [facility] CNPNon 08-08-2024 CNPN Normal [facility] CT BRAIN WO/W IVCONon 2023 CT BRAIN WO/W IVCON [facility] CT Head WO and W contrast IV on 08-08-2024 IMPRESSION: No acute intracranial pathology. Feed Blender: NANCY Transcribe Date/Time: Aug 08 2024 5:34P Dictated by : SOFIE HURTADO MD This examination was interpreted and the report reviewed and electronically signed by: SOFIE HURTADO MD on Aug 08 2024 5:46PM [facility] DIVISION OF RADIOLOGY * * *Final Report* * * DATE OF EXAM: Aug 08 2024 3:17PM [facility] 0007 - CT BRAIN WO/W IVCON / PROCEDURE REASON: multiple diagnoses * * * * Physician Interpretation * * * * EXAMINATION: CT BRAIN WO/W IVCON CLINICAL HISTORY: Speech and balance problem TECHNIQUE: Serial axial images with IV contrast were obtained from the vertex to the foramen magnum. MQ: CTBWOW_1 Contrast: 100 mL Omnipaque [address] Radiation dose: Integrated Dose-Length Product (DLP) for this visit = 1369 mGy*cm CT Dose Reduction Employed: Automated exposure control(AEC) and iterative recon COMPARISON: None. RESULT: Post-operative change: None. Acute change: No evidence of an acute intracranial process. Hemorrhage: No acute intracranial hemorrhage. ECASS hemorrhagic transformation score: Not Applicable Mass Lesion / Mass Effect: There is no evidence of an intracranial mass or extraaxial fluid collection. No abnormal parenchymal enhancement is appreciated. No significant mass effect. Chronic change: None apparent. Parenchyma: There is no significant volume loss. The brain parenchyma is otherwise within normal limits for age. Ventricles: The ventricles are within normal limits of size and configuration for age. Paranasal sinuses and skull base: The visualized paranasal sinuses are clear. The skull base and imaged soft tissues are unremarkable. DIVISION OF RADIOLOGY Provider, [facility] - 08/08/2024 * * *Final Report* * * DATE OF EXAM: Aug 08 2024 3:17PM [facility] 0007 - CT BRAIN WO/W IVCON / PROCEDURE REASON: multiple diagnoses * * * * Physician Interpretation * * * * EXAMINATION: CT BRAIN WO/W IVCON CLINICAL HISTORY: Speech and balance problem TECHNIQUE: Serial axial images with IV contrast were obtained from the vertex to the foramen magnum. MQ: CTBWOW_1 Contrast: 100 mL Omnipaque [address] Radiation dose: Integrated Dose-Length Product (DLP) for this visit = 1369 mGy*cm CT Dose Reduction Employed: Automated exposure control(AEC) and iterative recon COMPARISON: None. RESULT: Post-operative change: None. Acute change: No evidence of an acute intracranial process. Hemorrhage: No acute intracranial hemorrhage. ECASS hemorrhagic transformation score: Not Applicable Mass Lesion / Mass Effect: There is no evidence of an intracranial mass or extraaxial fluid collection. No abnormal parenchymal enhancement is appreciated. No significant mass effect. Chronic change: None apparent. Parenchyma: There is no significant volume loss. The brain parenchyma is otherwise within normal limits for age. Ventricles: The ventricles are within normal limits of size and configuration for age. Paranasal sinuses and skull base: The visualized paranasal sinuses are clear. The skull base and imaged soft tissues are unremarkable. IMPRESSION IMPRESSION: No acute intracranial pathology. Feed Blender: NANCY Transcribe Date/Time: Aug 08 2024 5:34P Dictated by : SOFIE HURTADO MD This examination was interpreted and the report reviewed and electronically signed by: SOFIE HURTADO MD on Aug 08 2024 5:46PM EST [facility] Radiology Study observation (narrative) [facility] CT Head WO and W contrast IV Ordered By: [facility] Provider on 08-08-2024 [facility] CNPNon 08-06-2024 CNPN Normal [facility] PT panel Coag (PPP)on 2023 INR Coag (Bld) [Relative time] 3.0(ext) 2 - 2 [facility] Interpretation and review of laboratory results Normal [facility] Bacteria Ur Culton Bacteria identified Cx Nom (U) Normal [facility] Comment on above: Performed By: #### 6 30-4 ####[facility] LABCL[facility] [id number] [place] [address] [place] CBC W Auto Differential pane l (Bld)on 07-29-2024 Basophils (Bld) [#/Vol] 0.07 10*3/uL Normal <0.11 [facility] Comment on above: Order Comment: Speci men Type: BLOOD SPECIMENOrdering Facility: [facility] Address: [address] [place] [address] Performed By: #### 5 7021-8 ####[facility] TASHAWVIVIANALIA [id number] [place] [address] [place] Basophils/100 WBC (Bld) 1.1 % Normal [facility] Comment on above: Order Comment: Speci men Type: BLOOD SPECIMENOrdering Facility: [facility] Address: [address] [place] [address] Performed By: #### 5 7021-8 ####[facility] NEVAEHMANASSASVIVIANALIA [id number] [place] [address] [place] Differential cell count method Nom (Bld) Auto Normal [facility] Comment on above: Order Comment: Speci men Type: BLOOD SPECIMENOrdering Facility: [facility] Address: [address] [place] [address] Performed By: #### 5 7021-8 ####[facility] NEVAEHMANASSASVIVIANACONCEPCIONA [id number] [place] [address] [place] Eosinophils (Bld) [#/Vol] 0.15 10*3/uL Normal <0.46 [facility] Comment on above: Order Comment: Speci men Type: BLOOD SPECIMENOrdering Facility: [facility] Address: [address] [place] [address] Performed By: #### 5 7021-8 ####[facility]ITALVIVIANACONCEPCIONA [id number] [place] [address] [place] Eosinophils/100 WBC (Bld) 2.4 % Normal [facility] Comment on above: Order Comment: Speci men Type: BLOOD SPECIMENOrdering Facility: [facility] Address: [address] [place] [address] Performed By: #### 5 7021-8 ####[facility] CAMPUSLIA [id number] [place] [address] [place] Erythrocyte distribution width (RBC) [Ratio] 16.0 % High 11.5-15.0 [facility] Comment on above: Order Comment: Speci men Type: BLOOD SPECIMENOrdering Facility: [facility] Address: [address] [place] [address] Performed By: #### 5 7021-8 ####[facility] [id number] [place] [address] [place] Hematocrit (Bld) [Volume fraction] 39.7 % Normal 39.0-51.0 [facility] Comment on above: Order Comment: Speci men Type: BLOOD SPECIMENOrdering Facility: [facility] Address: [address] [place] [address] Performed By: #### 5 7021-8 ####[facility] [id number] [place] [address] [place] Hemoglobin (Bld) [Mass/Vol] 12.7 g/dL Low 13.0-17.0 [facility] Comment on above: Order Comment: Speci men Type: BLOOD SPECIMENOrdering Facility: [facility] Address: [address] [place] [address] Performed By: #### 5 7021-8 ####[facility] [id number] [place] [address] [place] Immature granulocytes (Bld) [#/Vol] 0.10 10*3/uL High <0.10 [facility] Comment on above: Order Comment: Speci men Type: BLOOD SPECIMENOrdering Facility: [facility] Address: [address] [place] [address] Performed By: #### 5 7021-8 ####[facility]AMPUSLI [id number] [place] [address] [place] Immature granulocytes/100 WBC (Bld) 1.6 % Normal [facility] Comment on above: Order Comment: Speci men Type: BLOOD SPECIMENOrdering Facility: [facility] Address: [address] [place] [address] Performed By: #### 5 7021-8 ####[facility] MILLWNCLIA [id number] [place] [address] [place] Lymphocytes (Bld) [#/Vol] 1.36 10*3/uL Normal 1.00-4.00 [facility] Comment on above: Order Comment: Speci men Type: BLOOD SPECIMENOrdering Facility: [facility] Address: [address] [place] [address] Performed By: #### 5 7021-8 ####[facility] CLAY COUNTYWNCLIA [id number] [place] [address] [place] Lymphocytes/100 WBC (Bld) 22.1 % Normal [facility] Comment on above: Order Comment: Speci men Type: BLOOD SPECIMENOrdering Facility: [facility] Address: [address] [place] [address] Performed By: #### 5 7021-8 ####[facility]ITALNCLIA [id number] [place] [address] [place] MCH (RBC) [Entitic mass] 27.5 pg Normal 26.0-34.0 [facility] Comment on above: Order Comment: Speci men Type: BLOOD SPECIMENOrdering Facility: [facility] Address: [address] [place] [address] Performed By: #### 5 7021-8 ####[facility] MILLWNCLIA [id number] [place] [address] [place] MCHC (RBC) [Mass/Vol] 32.0 g/dL Normal 30.5-36.0 [facility] Comment on above: Order Comment: Speci men Type: BLOOD SPECIMENOrdering Facility: [facility] Address: [address] [place] [address] Performed By: #### 5 7021-8 ####[facility]ITALNCLIA [id number] [place] [address] [place] MCV (RBC) [Entitic vol] 86.1 fL Normal 80.0-100.0 [facility] Comment on above: Order Comment: Speci men Type: BLOOD SPECIMENOrdering Facility: [facility] Address: [address] [place] [address] Performed By: #### 5 7021-8 ####[facility] [id number] [place] [address] [place] Monocytes (Bld) [#/Vol] 0.47 10*3/uL Normal <0.87 [facility] Comment on above: Order Comment: Speci men Type: BLOOD SPECIMENOrdering Facility: [facility] Address: [address] [place] [address] Performed By: #### 5 7021-8 ####[facility] [id number] [place] [address] [place] Monocytes/100 WBC (Bld) 7.7 % Normal [facility] Comment on above: Order Comment: Speci men Type: BLOOD SPECIMENOrdering Facility: [facility] Address: [address] [place] [address] Performed By: #### 5 7021-8 ####[facility] [id number] [place] [address] [place] Neutrophils (Bld) [#/Vol] 3.99 10*3/uL Normal 1.45-7.50 [facility] Comment on above: Order Comment: Speci men Type: BLOOD SPECIMENOrdering Facility: [facility] Address: [address] [place] [address] Performed By: #### 5 7021-8 ####[facility] [id number] [place] [address] [place] Neutrophils/100 WBC (Bld) 65.1 % Normal [facility] Comment on above: Order Comment: Speci men Type: BLOOD SPECIMENOrdering Facility: [facility] Address: [address] [place] [address] Performed By: #### 5 7021-8 ####[facility] [id number] [place] [address] [place] Nucleated RBC (Bld) [#/Vol] 10*3/uL Normal <0.01 [facility] Comment on above: Order Comment: Speci men Type: BLOOD SPECIMENOrdering Facility: [facility] Address: [address] [place] [address] Performed By: #### 5 7021-8 ####[facility] [id number] [place] [address] [place] Nucleated RBC/100 WBC (Bld) [Ratio] 0.0 /100 WBC Normal [facility] Comment on above: Order Comment: Speci men Type: BLOOD SPECIMENOrdering Facility: [facility] Address: [address] [place] [address] Performed By: #### 5 7021-8 ####[facility] [id number] [place] [address] [place] Platelet mean volume (Bld) [Entitic vol] 12.0 fL Normal 9.0-12.7 [facility] Comment on above: Order Comment: Speci men Type: BLOOD SPECIMENOrdering Facility: [facility] Address: [address] [place] [address] Performed By: #### 5 7021-8 ####[facility]USLIA [id number] [place] [address] [place] Platelets (Bld) [#/Vol] 146 10*3/uL Low 150-400 [facility] Comment on above: Order Comment: Speci men Type: BLOOD SPECIMENOrdering Facility: [facility] Address: [address] [place] [address] Performed By: #### 5 7021-8 ####[facility] NEVAEHLISBETLIA [id number] [place] [address] [place] RBC (Bld) [#/Vol] 4.61 10*6/uL Normal 4.20-6.00 [facility] Comment on above: Order Comment: Speci men Type: BLOOD SPECIMENOrdering Facility: [facility] Address: [address] [place] [address] Performed By: #### 5 7021-8 ####[facility]PITALNCA [id number] [place] [address] [place] WBC (Bld) [#/Vol] 6.14 10*3/uL Normal 3.70-11.00 [facility] Comment on above: Order Comment: Speci men Type: BLOOD SPECIMENOrdering Facility: [facility] Address: [address] [place] [address] Performed By: #### 5 7021-8 ####[facility]ITALA [id number] [place] [address] [place] CNOVon 07-29-2024 CNOV Normal [facility] CNPNon 07-29-2024 CNPN Normal [facility] POTASSIUMOrdered By: Babita Smith on 07-29-2024 Interpretation and review of laboratory results Normal [facility] Potassium [Moles/Vol] 4.6 mmol/L 3.7 - 5.1 mmol/L [facility] POTASSIUMon 07-29-2024 Potassium [Moles/Vol] 4.6 mmol/L Normal 3.7-5.1 [facility] Comment on above: Order Comment: Speci men Type: BLOOD SPECIMENOrdering Facility: [facility] Address: [address] [place] [address] Performed By: #### K 1 ####[facility]USLI [id number] [place] [address] [place] UA DIP, URINE (POC)on 2023 BILIRUBIN UA (POCT) Negative Negative [facility] CLARITY UA (POCT) Slightly Cloudy Cl [facility] COLOR UA (POCT) Reny [facility] GLUCOSE UA (POCT) Negative Negative mg/dL [facility] Hemoglobin Ql (U) Negative Negative [facility] Interpretation and review of laboratory results Abnormal [facility] KETONE UA (POCT) Negative Negative mg/dL [facility] LEUKOCYTES UA (POCT) Trace Abnormal Negative [facility] NITRITE UA (POCT) Negative Negative [facility] PH UA (POCT) 5.5 4.5 - 8.0 [facility] Protein Ql (U) Negative Negative mg/dL [facility] SPECIFIC GRAVITY UA (POCT) 1.025 1.005 - 1.030 [facility] UROBILINOGEN UA (POCT) 0.2 Normal E.U./dL [facility] Location:[address], [address] [place] [address] POINT OF CARE [facility] CNPNon 07-25-2024 CNPN Normal [facility] Abdomen/Pelvis W IV Cont ONL Yon 07-10-2024 Abdomen/Pelvis W IV Cont ONLY [facility] [address] [place] [address] Abdomen/Pelvis W IV Cont ONLY MR#: [id number] Acct: [id number] Name: YAZAN NOLASCO Rep #: [id number] : 1950 M 74 From: Davon edmond MD PCP: Dr. Dee Ashley MD Status: REG ER Study: Abdomen/Pelvis W IV Cont ONLY Date of Exam: Exam# [id number] Ordering Dr: Florencio Bull DO 0:[id number] STUDY: CT ABDOMEN AND PELVIS WITH CONTRAST REASON FOR EXAM: Male, 74 years old. Colitis abdominal pain. Chills and diarrhea. RADIATION DOSAGE (If Supplied By Facility): CTDIvol = ( 18.90 ) mGy, DLP = ( 1180.87 ) mGycm TECHNIQUE: Transaxial images were obtained from the dome of the diaphragm to the symphysis pubis without oral contrast. IV 100mL Isovue-300 was administered. Sagittal and coronal images were reconstructed. Individualized dose optimization techniques were used for this CT. COMPARISON: Comparison is made with prior study of June 09, 2021. FINDINGS: Increased markings at the left lung base suggestive of either linear atelectasis and/or scarring. Coronary artery calcification. Dual-chamber pacemaker is seen. There is decreased attenuation of the liver consistent with steatosis. The patient is status post cholecystectomy. Normal spleen. Normal pancreas. Normal bilateral adrenal glands. Normal right kidney. There is a 3.6 cm x 4.2 cm cyst in the anterior upper pole of the left kidney. There is a 3.2 mm calculus in the distal portion of the left ureter just proximal to the ureterovesical junction. Normal visualized stomach. Normal small intestine. There are scattered colonic diverticula consistent with diverticulosis. Mild degree of the mucosal thickening of the rectosigmoid colon suggestive of a mild degree of colitis. The appendix is visualized and appears normal. There is diffuse atherosclerotic calcification of the abdominal aorta and its major visceral branches, without a demonstrated aneurysm. Normal inferior vena cava. Normal retroperitoneum. Normal urinary bladder. Mild enlargement of the prostate with indentation of the bladder base. Normal abdominal wall. There are mild degenerative changes of the visualized lumbar spine. Minimal anterolisthesis of L5 on S1 without spondylolysis. CT/Abdomen/Pelvis W IV Cont ONLY IMPRESSION: Findings suggest very mild degree of colitis of the rectosigmoid colon. Fatty infiltration of the liver. Status post cholecystectomy. 3.2 mm calculus in the distal portion of the left ureter just proximal to the ureterovesical junction. Electronically Signed: Davon Pena MD at 12:35 EDT , CC: Dr. Dee Ashley MD; Dr. Florencio Bull DO Feed Blender: Signed Normal [facility] Basic Metabolic Profile (BMP )on 07-10-2024 BUN/CRE 7.5 RATIO Low 10-20 [facility] Comment on above: Performed By: #### L 500.3400, L500.2500, L501.2450, L300.3900, L100.0100 ####[facility] [address] [place], [address] CA,Total 8.6 mg/dL Normal 8.5-10.1 [facility] Comment on above: Performed By: #### L 500.3400, L500.2500, L501.2450, L300.3900, L100.0100 ####[facility] [address] [place], [address] Chloride [Moles/Vol] 107 mmol/L Normal 98-107 [facility] Comment on above: Performed By: #### L 500.3400, L500.2500, L501.2450, L300.3900, L100.0100 ####[facility] [address] [place], [address] CO2 [Moles/Vol] 24.0 mmol/L Normal 21.0-32.0 [facility] Comment on above: Performed By: #### L 500.3400, L500.2500, L501.2450, L300.3900, L100.0100 ####[facility] [address] [place], [address] Creatinine [Mass/Vol] 1.33 mg/dL High 0.70-1.30 [facility] Comment on above: Result Comment: The validity of the calculated GFR GFRAA in patients over 70 years has not been determined. Clinical correlation is essential. Performed By: #### L 500.3400, L500.2500, L501.2450, L300.3900, L100.0100 ####[facility] [address] [place], [address] ECRCL 58.50 ml/min Normal [facility] Comment on above: Performed By: #### L 500.3400, L500.2500, L501.2450, L300.3900, L100.0100 ####[facility] [address] [place], [address] EST GFR - AA 68 mL/min Normal >60 [facility] Comment on above: Result Comment: Afri can Cymraes GFR Calc Performed By: #### L 500.3400, L500.2500, L501.2450, L300.3900, L100.0100 ####[facility] [address] [place], [address] GAP 9 Normal 5-15 [facility] Comment on above: Performed By: #### L 500.3400, L500.2500, L501.2450, L300.3900, L100.0100 ####[facility] [address] [place], [address] GFR/1.73 sq M.predicted among non-blacks MDRD (S/P/Bld) [Vol rate/Area] 56 mL/min/{1.73_m2} Low >60 [facility] Comment on above: Result Comment: Non- GFR Calc Performed By: #### L 500.3400, L500.2500, L501.2450, L300.3900, L100.0100 ####[facility] [address] [place], [address] Glucose [Mass/Vol] 126 mg/dL High 74-106 [facility] Comment on above: Result Comment: Fast ing Glucose result greater than or equal to 126 mg/dL suggests DIABETES MELLITUS per A.D.A. criteria. Performed By: #### L 500.3400, L500.2500, L501.2450, L300.3900, L100.0100 ####[facility] [address] [place], [address] Potassium [Moles/Vol] 3.0 mmol/L Low 3.5-5.1 [facility] Comment on above: Performed By: #### L 500.3400, L500.2500, L501.2450, L300.3900, L100.0100 ####[facility] [address] [place], [address] Sodium [Moles/Vol] 140 mmol/L Normal 136-145 [facility] Comment on above: Performed By: #### L 500.3400, L500.2500, L501.2450, L300.3900, L100.0100 ####[facility] [address] [place], [address] Urea nitrogen [Mass/Vol] 10 mg/dL Normal 7-18 [facility] Comment on above: Performed By: #### L 500.3400, L500.2500, L501.2450, L300.3900, L100.0100 ####[facility] [address] [place], [address] CBC W/Diff, Automatedon 10-3 Absolute Lymph 1.08 X10 3/uL Normal 0.83-4.51 [facility] Comment on above: Performed By: #### L 500.3400, L500.2500, L501.2450, L300.3900, L100.0100 ####[facility] [address] [place], [address] Absolute Neut 4.2 X10 3/uL Normal 2.0-7.7 [facility] Comment on above: Performed By: #### L 500.3400, L500.2500, L501.2450, L300.3900, L100.0100 ####[facility] [address] [place], [address] Basophils/100 WBC (Bld) 1.2 % High 0-1 [facility] Comment on above: Performed By: #### L 500.3400, L500.2500, L501.2450, L300.3900, L100.0100 ####[facility] [address] [place], [address] Eosinophils/100 WBC (Bld) 1.2 % Normal 0-5 [facility] Comment on above: Performed By: #### L 500.3400, L500.2500, L501.2450, L300.3900, L100.0100 ####[facility] [address] [place], [address] Erythrocyte distribution width (RBC) [Ratio] 15.6 % High 11.6-14.6 [facility] Comment on above: Performed By: #### L 500.3400, L500.2500, L501.2450, L300.3900, L100.0100 ####[facility] [address] [place], [address] Hematocrit (Bld) [Volume fraction] 41.9 % Normal 40-54 [facility] Comment on above: Performed By: #### L 500.3400, L500.2500, L501.2450, L300.3900, L100.0100 ####[facility] [address] [place], [address] Hemoglobin (Bld) [Mass/Vol] 13.9 g/dL Normal 13.0-16.5 [facility] Comment on above: Performed By: #### L 500.3400, L500.2500, L501.2450, L300.3900, L100.0100 ####[facility] [address] [place], [address] IG% 0.200 Normal 0.0-0.9 [facility] Comment on above: Result Comment: IG% - Immature Granulocytes (promyelocytes, myelocytes and metamyelocytes) > 1% indicates that a LEFT SHIFT is Present. Performed By: #### L 500.3400, L500.2500, L501.2450, L300.3900, L100.0100 ####[facility] [address] [place], [address] Lymphocytes/100 WBC (Bld) 18.8 % Low 19-41 [facility] Comment on above: Performed By: #### L 500.3400, L500.2500, L501.2450, L300.3900, L100.0100 ####[facility] [address] [place], [address] MCH (RBC) [Entitic mass] 28.0 pg Normal 27.0-32.0 [facility] Comment on above: Performed By: #### L 500.3400, L500.2500, L501.2450, L300.3900, L100.0100 ####[facility] [address] [place], [address] MCHC (RBC) [Mass/Vol] 33.2 g/dL Normal 32-36 [facility] Comment on above: Performed By: #### L 500.3400, L500.2500, L501.2450, L300.3900, L100.0100 ####[facility] [address] [place], [address] MCV (RBC) [Entitic vol] 84.3 fL Normal 80-94 [facility] Comment on above: Performed By: #### L 500.3400, L500.2500, L501.2450, L300.3900, L100.0100 ####[facility] [address] [place], [address] Monocytes/100 WBC (Bld) 5.6 % Normal 0-10 [facility] Comment on above: Performed By: #### L 500.3400, L500.2500, L501.2450, L300.3900, L100.0100 ####[facility] [address] [place], [address] Neutrophils/100 WBC (Bld) 73.0 % High 47-70 [facility] Comment on above: Performed By: #### L 500.3400, L500.2500, L501.2450, L300.3900, L100.0100 ####[facility] [address] [place], [address] Nucleated RBC (Bld) [#/Vol] 0 10*3/uL Normal 0-5 [facility] Comment on above: Performed By: #### L 500.3400, L500.2500, L501.2450, L300.3900, L100.0100 ####[facility] [address] [place], [address] Platelet mean volume (Bld) [Entitic vol] 11.6 fL Normal 6.2-12.0 [facility] Comment on above: Performed By: #### L 500.3400, L500.2500, L501.2450, L300.3900, L100.0100 ####[facility] [address] [place], [address] Platelets (Bld) [#/Vol] 166 10*3/uL Normal 150-450 [facility] Comment on above: Performed By: #### L 500.3400, L500.2500, L501.2450, L300.3900, L100.0100 ####[facility] [address] [place], [address] RBC (Bld) [#/Vol] 4.97 10*6/uL Normal 4.6-6.2 [facility] Comment on above: Performed By: #### L 500.3400, L500.2500, L501.2450, L300.3900, L100.0100 ####[facility] [address] [place], [address] RDW SD 46.5 fl High 35.1-43.9 [facility] Comment on above: Performed By: #### L 500.3400, L500.2500, L501.2450, L300.3900, L100.0100 ####[facility] [address] [place], [address] WBC (Bld) [#/Vol] 5.8 10*3/uL Normal 4.4-11.0 [facility] Comment on above: Performed By: #### L 500.3400, L500.2500, L501.2450, L300.3900, L100.0100 ####[facility] [address] [place], [address] Emergency Department Summary on 07-10-2024 Emergency Department Summary [facility] Medical Records Department [address] [place] [address] Emergency Department Summary 07/10/24 MR#: [id number] Acct: [id number] Name: YAZAN NOLASCO Rep #: [id number] : 1950 74 From: Florencio Bull DO PCP: Dr. Dee Ashley MD Status:DEP ER Location: ED HPI History of Present Illness Chief Complaint: General Illness Informant: patient and spouse/S.O. Narrative Narrative: 74-year-old male presenting to the emergency room with a chief complaint of vomiting diarrhea. Patient states he has been ill for 1 week. He states he has diarrhea about every 2 hours and describes it as black water. He notes he last vomited on Sunday states that she believes he vomited yesterday. He noticed decreased p.o. intake stating that he is only been taking applesauce. He denies any urinary symptoms but does state that he has been urinating more frequently than normal. No reported fevers or chills. He notes some right sided abdominal discomfort. He denies a history of colitis. He is a diabetic and he also reportedly takes Coumadin. This is for atrial fibrillation. He denies any URI symptoms or dyspnea. No syncope. [facility] Medical History Injury of head and neck Cancer Hepatitis Former smoker CPAP (continuous positive airway pressure) dependence Sleep apnea Atrial fibrillation ICD (implantable cardioverter-defibrillator) in place Pacemaker Hypertension Acute calculous cholecystitis Hyperlipemia Diabetic neuropathy HTN (hypertension) Diabetes Home Medications ???Medication ???Instructions ???Recorded ???Last Taken ???Type allopurinol 100 mg tablet 200 mg PO DAILYCM GOUT 05/12/14 06/08/21 08:45 History aspirin 81 mg chewable tablet 81 mg PO DAILY@0800 HEALTH 05/12/14 06/08/21 08:45 History atorvastatin 20 mg tablet 20 mg PO QODAY CHOLESTEROL 05/12/14 1 Week Ago History 06/02/21 clonidine HCl 0.1 mg tablet 0.1 mg PO BID BP 05/12/14 06/08/21 08:45 History duloxetine 60 mg capsule,delayed 60 mg PO DAILY MOOD 05/12/14 06/08/21 08:45 History release gabapentin 300 mg capsule 600 mg PO QHS NERVE PAIN 05/12/14 06/08/21 History hydrochlorothiazide 25 mg tablet 25 mg PO DAILY BP 05/12/14 06/08/21 08:45 History insulin glargine 100 unit/mL (3 32 units subcut QHS DM 05/12/14 06/07/21 History mL) subcutaneous pen (Lantus Solostar U-100 Insulin) lisinopril 40 mg tablet 40 mg PO DAILY BP 05/12/14 06/08/21 08:45 History metformin 500 mg tablet 1,000 mg PO BIDCM DM 05/12/14 06/08/21 08:45 History potassium chloride 10 mEq 10 meq PO BID SUPPLEMENT 05/12/14 06/08/21 08:45 History tablet,extended release (Klor-Con) acetaminophen 500 mg tablet 1,000 mg PO BID PRN Pain 06/09/21 06/09/21 07:00 History amlodipine 5 mg tablet 5 mg PO DAILY BP 06/09/21 06/08/21 08:45 History magnesium oxide 400 mg PO BID SUPPLEMENT 06/09/21 06/08/21 08:45 History metoprolol tartrate 100 mg tablet 100 mg PO BID HEART 06/09/21 06/08/21 08:45 History tamsulosin 0.4 mg capsule 0.8 mg PO DAILY PROSTATE 06/09/21 06/08/21 08:45 History warfarin 5 mg tablet 5 mg PO MOTUWETHFRSA BLOODTHINNER 06/09/21 06/08/21 08:45 History warfarin 5 mg tablet 7.5 mg PO SANTAMARIA BLOOD THINNER 06/09/21 06/05/21 History amoxicillin 875 mg-potassium 875 mg PO Q12H #14 TABLETS 07/10/24 Unknown Rx clavulanate 125 mg tablet potassium chloride 20 mEq 40 meq (2 x 20 mEq) PO DAILY #10 07/10/24 Unknown Rx tablet,extended release tabs Allergy/AdvReac Type Severity Reaction Status Date / Time No Known Allergies Allergy Verified 07/10/24 09:15 Surgical History Status post laparoscopic cholecystectomy ( 06/2021) Social History Smoking Status: Former smoker ROS ROS ED Constitutional Constitutional ED: Denies chills, fever(s) or weight loss Eyes Eyes: Denies change in vision or diplopia ENT ENT ED: Denies ear pain, rhinorrhea or sore throat Cardiovascular Cardiovascular: Denies chest pain, orthopnea, palpitations or racing heartbeat Respiratory/Chest Respiratory/Chest: Denies cough, dyspnea or orthopnea Gastrointestinal Gastrointestinal: Reports abdominal pain, diarrhea, nausea and vomiting Genitourinary Genitourinary ED: Reports urinary frequency; Denies dysuria or hematuria Musculoskeletal Musculoskeletal: Denies arthralgias or myalgias Integumentary Denies abscess or rash Neurologic Neurologic: Denies headache(s) or weakness Psychiatric Psychiatric: Denies anxiety, depression, suicidal ideation or suicidal thoughts Endocrine Endocrinology: Denies polydipsia, polyphagia or polyuria Allergic/Immunologic Allergic/Immunologic ED: Denies mouth swelling, tongue swelling or urticaria EXAM (more content not included)... Normal [facility] Lipaseon 07-10-2024 Lipase [Catalytic activity/Vol] 34 U/L Normal 13-75 [facility] Comment on above: Result Comment: Octavio burgos note: LIPASE revised reference range effective 22. New Lipase methodology. Expected to produce lower values than the previous assay method. NEW Reference Range: 13 - 75 U/L Performed By: #### L 500.3400, L500.2500, L501.2450, L300.3900, L100.0100 ####[facility] [address] [place], [address] Liver Profileon 07-10-2024 Albumin [Mass/Vol] 2.9 g/dL Low 3.2-5.0 [facility] Comment on above: Performed By: #### L 500.3400, L500.2500, L501.2450, L300.3900, L100.0100 ####[facility] [address] [place], [address] ALK P 136 U/L High 45-117 [facility] Comment on above: Performed By: #### L 500.3400, L500.2500, L501.2450, L300.3900, L100.0100 ####[facility] [address] [place], [address] ALT [Catalytic activity/Vol] 15 U/L Low 16-61 [facility] Comment on above: Performed By: #### L 500.3400, L500.2500, L501.2450, L300.3900, L100.0100 ####[facility] [address] [place], [address] AST [Catalytic activity/Vol] 12 U/L Low 15-37 [facility] Comment on above: Performed By: #### L 500.3400, L500.2500, L501.2450, L300.3900, L100.0100 ####[facility] [address] [place], [address] Bilirubin [Mass/Vol] 0.70 mg/dL Normal 0.20-1.00 [facility] Comment on above: Result Comment: For patients on eltrombopag therapy, use of Dimension Darfur TBIL is not recommended. Performed By: #### L 500.3400, L500.2500, L501.2450, L300.3900, L100.0100 ####[facility] [address] [place], [address] Bilirubin.direct [Mass/Vol] 0.32 mg/dL High 0.00-0.30 [facility] Comment on above: Performed By: #### L 500.3400, L500.2500, L501.2450, L300.3900, L100.0100 ####[facility] [address] [place], [address] Globulin (S) [Mass/Vol] 3.9 g/dL Normal 2.2-4.2 [facility] Comment on above: Performed By: #### L 500.3400, L500.2500, L501.2450, L300.3900, L100.0100 ####[facility] [address] [place], [address] T PROT 6.8 g/dL Normal 6.4-8.2 [facility] Comment on above: Performed By: #### L 500.3400, L500.2500, L501.2450, L300.3900, L100.0100 ####[facility] [address] [place], [address] PT panel Coag (PPP)on 2023 INR Coag (Bld) [Relative time] 2.4 {INR} [facility] Prothrombin Time w/INRon INR Coag (PPP) [Relative time] 2.4 {INR} Normal [facility] Comment on above: Performed By: #### L 500.3400, L500.2500, L501.2450, L300.3900, L100.0100 ####[facility] [address] [place], [address] PT Coag (PPP) [Time] 26.4 s High 11.7-14.9 [facility] Comment on above: Performed By: #### L 500.3400, L500.2500, L501.2450, L300.3900, L100.0100 ####[facility] [address] [place], [address] Urinalysis, Completeon 07-10 BILIRUBIN URINE 1 mg/dL Abnormal Negative [facility] Comment on above: Order Comment: CLEAN CATCH Result Comment: COLO R OF URINE MAY AFFECT DIPSTICK RESULTS. Performed By: #### L 400.0001 ####[facility] [address] [place], [address] Clarity (U) Sl. Cloudy Normal Clear [facility] Comment on above: Order Comment: CLEAN CATCH Performed By: #### L 400.0001 ####[facility] [address] [place], [address] Color (U) Yellow Normal Yellow [facility] Comment on above: Order Comment: CLEAN CATCH Performed By: #### L 400.0001 ####[facility] [address] [place], [address] GLUCOSE, UR Normal Normal Normal [facility] Comment on above: Order Comment: CLEAN CATCH Performed By: #### L 400.0001 ####[facility] [address] [place], [address] KETONE UR 5 mg/dl Abnormal Negative [facility] Comment on above: Order Comment: CLEAN CATCH Performed By: #### L 400.0001 ####[facility] [address] [place], [address] LEUK ESTERASE 500 /ul Abnormal Negative [facility] Comment on above: Order Comment: CLEAN CATCH Performed By: #### L 400.0001 ####[facility] [address] [place], [address] Nitrite Ql (U) Negative Normal Negative [facility] Comment on above: Order Comment: CLEAN CATCH Performed By: #### L 400.0001 ####[facility] [address] [place], [address] OCCULT BLOOD-UR 10 /ul Abnormal Negative [facility] Comment on above: Order Comment: CLEAN CATCH Performed By: #### L 400.0001 ####[facility] [address] [place], [address] pH UR 6.0 Normal 5.0 - 8.0 [facility] Comment on above: Order Comment: CLEAN CATCH Performed By: #### L 400.0001 ####[facility] [address] [place], [address] PROT DIPSTX 30 mg/dl Abnormal Negative [facility] Comment on above: Order Comment: CLEAN CATCH Performed By: #### L 400.0001 ####[facility] [address] [place], [address] SP.GR. DIPSTX 1.015 Normal 1.002-1.030 [facility] Comment on above: Order Comment: CLEAN CATCH Performed By: #### L 400.0001 ####[facility] [address] [place], [address] UROBILI 1 mg/dl Abnormal Normal [facility] Comment on above: Order Comment: CLEAN CATCH Performed By: #### L 400.0001 ####[facility] [address] [place], [address] CBC W/Diff, Automatedon 10-2 Absolute Lymph 1.64 X10 3/uL Normal 0.83-4.51 [facility] Comment on above: Performed By: #### L 101.9900, L100.0100, L501.6710, L500.4050 ####[facility] [address] [place], [address] Absolute Neut 3.7 X10 3/uL Normal 2.0-7.7 [facility] Comment on above: Performed By: #### L 101.9900, L100.0100, L501.6710, L500.4050 ####[facility] [address] [place], [address] Basophils/100 WBC (Bld) 1.3 % High 0-1 [facility] Comment on above: Performed By: #### L 101.9900, L100.0100, L501.6710, L500.4050 ####[facility] [address] [place], [address] Eosinophils/100 WBC (Bld) 1.3 % Normal 0-5 [facility] Comment on above: Performed By: #### L 101.9900, L100.0100, L501.6710, L500.4050 ####[facility] [address] [place], [address] Erythrocyte distribution width (RBC) [Ratio] 15.1 % High 11.6-14.6 [facility] Comment on above: Performed By: #### L 101.9900, L100.0100, L501.6710, L500.4050 ####[facility] [address] [place], [address] Hematocrit (Bld) [Volume fraction] 41.1 % Normal 40-54 [facility] Comment on above: Performed By: #### L 101.9900, L100.0100, L501.6710, L500.4050 ####[facility] [address] [place], [address] Hemoglobin (Bld) [Mass/Vol] 13.2 g/dL Normal 13.0-16.5 [facility] Comment on above: Performed By: #### L 101.9900, L100.0100, L501.6710, L500.4050 ####[facility] [address] [place], [address] IG% 0.200 Normal 0.0-0.9 [facility] Comment on above: Result Comment: IG% - Immature Granulocytes (promyelocytes, myelocytes and metamyelocytes) > 1% indicates that a LEFT SHIFT is Present. Performed By: #### L 101.9900, L100.0100, L501.6710, L500.4050 ####[facility] [address] [place], [address] Lymphocytes/100 WBC (Bld) 27.6 % Normal 19-41 [facility] Comment on above: Performed By: #### L 101.9900, L100.0100, L501.6710, L500.4050 ####[facility] [address] [place], [address] MCH (RBC) [Entitic mass] 27.3 pg Normal 27.0-32.0 [facility] Comment on above: Performed By: #### L 101.9900, L100.0100, L501.6710, L500.4050 ####[facility] [address] [place], [address] MCHC (RBC) [Mass/Vol] 32.1 g/dL Normal 32-36 [facility] Comment on above: Performed By: #### L 101.9900, L100.0100, L501.6710, L500.4050 ####[facility] [address] [place], [address] MCV (RBC) [Entitic vol] 85.1 fL Normal 80-94 [facility] Comment on above: Performed By: #### L 101.9900, L100.0100, L501.6710, L500.4050 ####[facility] [address] [place], [address] Monocytes/100 WBC (Bld) 6.6 % Normal 0-10 [facility] Comment on above: Performed By: #### L 101.9900, L100.0100, L501.6710, L500.4050 ####[facility] [address] [place], [address] Neutrophils/100 WBC (Bld) 63.0 % Normal 47-70 [facility] Comment on above: Performed By: #### L 101.9900, L100.0100, L501.6710, L500.4050 ####[facility] [address] [place], [address] Nucleated RBC (Bld) [#/Vol] 0 10*3/uL Normal 0-5 [facility] Comment on above: Performed By: #### L 101.9900, L100.0100, L501.6710, L500.4050 ####[facility] [address] [place], [address] Platelet mean volume (Bld) [Entitic vol] 12.2 fL High 6.2-12.0 [facility] Comment on above: Performed By: #### L 101.9900, L100.0100, L501.6710, L500.4050 ####[facility] [address] [place], [address] Platelets (Bld) [#/Vol] 188 10*3/uL Normal 150-450 [facility] Comment on above: Performed By: #### L 101.9900, L100.0100, L501.6710, L500.4050 ####[facility] [address] [place], [address] RBC (Bld) [#/Vol] 4.83 10*6/uL Normal 4.6-6.2 [facility] Comment on above: Performed By: #### L 101.9900, L100.0100, L501.6710, L500.4050 ####[facility] [address] [place], [address] RDW SD 46.6 fl High 35.1-43.9 [facility] Comment on above: Performed By: #### L 101.9900, L100.0100, L501.6710, L500.4050 ####[facility] [address] [place], [address] WBC (Bld) [#/Vol] 5.9 10*3/uL Normal 4.4-11.0 [facility] Comment on above: Performed By: #### L 101.9900, L100.0100, L501.6710, L500.4050 ####[facility] [address] [place], [address] CRPon 07-08-2024 C-REACTIVE PROT 45.40 mg/L High 0.0-3.0 [facility] Comment on above: Result Comment: C-Re active Protein (CRP) provides useful information for the diagnosis, therapy and monitoring of inflammatory processes and associated diseases. For the evaluation of Relative Risk for Cardiovascular Disease, a High Sensitivity CRP (HSCRP) should be ordered. Performed By: #### L 101.9900, L100.0100, L501.6710, L500.4050 ####[facility] [address] [place], [address] Comprehensive Metabolic Prof ilon 07-08-2024 Albumin [Mass/Vol] 2.9 g/dL Low 3.2-5.0 [facility] Comment on above: Performed By: #### L 101.9900, L100.0100, L501.6710, L500.4050 ####[facility] [address] [place], [address] Albumin/Globulin [Mass ratio] 0.7 {ratio} Low 0.9-2.4 [facility] Comment on above: Performed By: #### L 101.9900, L100.0100, L501.6710, L500.4050 ####[facility] [address] [place], [address] ALK P 143 U/L High 45-117 [facility] Comment on above: Performed By: #### L 101.9900, L100.0100, L501.6710, L500.4050 ####[facility] [address] [place], [address] ALT [Catalytic activity/Vol] 12 U/L Low 16-61 [facility] Comment on above: Performed By: #### L 101.9900, L100.0100, L501.6710, L500.4050 ####[facility] [address] [place], [address] AST [Catalytic activity/Vol] 14 U/L Low 15-37 [facility] Comment on above: Performed By: #### L 101.9900, L100.0100, L501.6710, L500.4050 ####[facility] [address] [place], [address] Bilirubin [Mass/Vol] 0.60 mg/dL Normal 0.20-1.00 [facility] Comment on above: Result Comment: For patients on eltrombopag therapy, use of Dimension [place]fur TBIL is not recommended. Performed By: #### L 101.9900, L100.0100, L501.6710, L500.4050 ####[facility] [address] [place], [address] BUN/CRE 5.3 RATIO Low 10-20 [facility] Comment on above: Performed By: #### L 101.9900, L100.0100, L501.6710, L500.4050 ####[facility] [address] [place], [address] CA,Total 8.9 mg/dL Normal 8.5-10.1 [facility] Comment on above: Performed By: #### L 101.9900, L100.0100, L501.6710, L500.4050 ####[facility] [address] [place], [address] Chloride [Moles/Vol] 105 mmol/L Normal 98-107 [facility] Comment on above: Performed By: #### L 101.9900, L100.0100, L501.6710, L500.4050 ####[facility] [address] [place], [address] CO2 [Moles/Vol] 24.0 mmol/L Normal 21.0-32.0 [facility] Comment on above: Performed By: #### L 101.9900, L100.0100, L501.6710, L500.4050 ####[facility] [address] [place], [address] Creatinine [Mass/Vol] 1.31 mg/dL High 0.70-1.30 [facility] Comment on above: Result Comment: The validity of the calculated GFR GFRAA in patients over 70 years has not been determined. Clinical correlation is essential. Performed By: #### L 101.9900, L100.0100, L501.6710, L500.4050 ####[facility] [address] [place], [address] EST GFR - AA 69 mL/min Normal >60 [facility] Comment on above: Result Comment: Afri can Cymraes GFR Calc Performed By: #### L 101.9900, L100.0100, L501.6710, L500.4050 ####[facility] [address] [place], [address] GAP 9 Normal 5-15 [facility] Comment on above: Performed By: #### L 101.9900, L100.0100, L501.6710, L500.4050 ####[facility] [address] [place], [address] GFR/1.73 sq M.predicted among non-blacks MDRD (S/P/Bld) [Vol rate/Area] 57 mL/min/{1.73_m2} Low >60 [facility] Comment on above: Result Comment: Non- GFR Calc Performed By: #### L 101.9900, L100.0100, L501.6710, L500.4050 ####[facility] [address] [place], [address] Globulin (S) [Mass/Vol] 4.3 g/dL High 2.2-4.2 [facility] Comment on above: Performed By: #### L 101.9900, L100.0100, L501.6710, L500.4050 ####[facility] [address] [place], [address] Glucose [Mass/Vol] 115 mg/dL High 74-106 [facility] Comment on above: Result Comment: Fast ing Glucose result from 100 to 125 mg/dL suggests IMPAIRED HOMEOSTASIS per A.D.A. criteria. Performed By: #### L 101.9900, L100.0100, L501.6710, L500.4050 ####[facility] [address] [place], [address] Potassium [Moles/Vol] 3.2 mmol/L Low 3.5-5.1 [facility] Comment on above: Performed By: #### L 101.9900, L100.0100, L501.6710, L500.4050 ####[facility] [address] [place], [address] Sodium [Moles/Vol] 138 mmol/L Normal 136-145 [facility] Comment on above: Performed By: #### L 101.9900, L100.0100, L501.6710, L500.4050 ####[facility] [address] [place], [address] T PROT 7.2 g/dL Normal 6.4-8.2 [facility] Comment on above: Performed By: #### L 101.9900, L100.0100, L501.6710, L500.4050 ####[facility] [address] [place], [address] Urea nitrogen [Mass/Vol] 7 mg/dL Normal 7-18 [facility] Comment on above: Performed By: #### L 101.9900, L100.0100, L501.6710, L500.4050 ####[facility] [address] [place], [address] Erythrocyte Sed Rateon 07-08 SED RATE 9 mm/hr Normal 0-20 [facility] Comment on above: Performed By: #### L 101.9900, L100.0100, L501.6710, L500.4050 ####[facility] [address] [place], [address] PT panel Coag (PPP)on 2023 INR Coag (Bld) [Relative time] 2.1 {INR} [facility] Interpretation and review of laboratory results Normal [facility] INR resulted on 11/03 at mdingianluca. Cyndi Zuluaga LPN [facility] Natriuretic peptide.B prohor paresh N-Terminal [Mass/Vol]on 05-21-2024 INR Coag (Bld) [Relative time] 2.0 {INR} 2 - 3 [facility] PT panel Coag (PPP)on 2023 INR Coag (Bld) [Relative time] 2.0 {INR} [facility] PT panel Coag (PPP)on 2023 INR Coag (Bld) [Relative time] 2.6 {INR} 2 - 3 [facility] PT panel Coag (PPP)on 2023 INR Coag (Bld) [Relative time] 2.6 {INR} 2 - 3 [facility] HEMOGLOBIN A1C (POC)on 03-20 HbA1c (Bld) [Mass fraction] 4.8 % 4.3 - 5.6 % [facility] Comment on above: Location:[address], [place], [address] Point of care (POC) Hemoglobin A1c (HGBA1C) testing is intended to assess glucose control and provide a management tool for patients known to have diabetes and their healthcare providers. Target HGBA1C levels may depend on specific clinical circumstances. POC HGBA1C is not intended for use as a diagnostic or screening test; laboratory-based testing should be used for diagnostic purposes. The following information is supplemental and may not be applicable to specific diabetes management situations: The POC device cake press operator helper provides a normal range of 4.2% to 6.5% for the HGBA1C POC test. However, the [place] guidelines indicate that patients with HGBA1C in the range of 5.7% to 6.4% are at increased risk for development of diabetes and that intervention by lifestyle modification may be beneficial. A HGBA1C level greater than or equal to 6.5% is considered diagnostic of diabetes, pending confirmatory testing. Use of HGBA1C testing to evaluate glucose control may not be appropriate for patients with hemoglobin variants or other conditions (e.g. anemia) that alter red blood cell lifespan. [facility] PT panel Coag (PPP)on 2023 INR Coag (Bld) [Relative time] 2.9 {INR} 2 - 3 [facility] PT panel Coag (PPP)on 2023 INR Coag (Bld) [Relative time] 3.4 {INR} [facility] EGD Study observation Jeane robbins 02-05-2024 A31 Gastrointestinal Endoscopy Patient Name: Yazan Nolasco Procedure Date: 02/05/2024 9:29 AM Date of : 1950 Admit Type: Outpatient Age: 73 Room: [address] Gender: Male Note Status: Finalized Attending MD: Rocky Ortega MD, [id number] Procedure: Upper GI endoscopy Indications: Iron deficiency anemia Providers: Rocky Ortega MD, Elmo Gonzales MD (Fellow) Patient Profile: This is a 73 year old male. Refer to note in patient chart for documentation of history and physical. Referring Physician: Jennifer Shepherd (pa) (Referring MD) Medicines: Monitored Anesthesia Care Complications: No immediate complications. Estimated blood loss: Minimal. Requesting Provider: Procedure: Pre-Anesthesia Assessment: - Prior to the procedure, a History and Physical was performed, and patient medications and allergies were reviewed. The patient's tolerance of previous anesthesia was also reviewed. The risks and benefits of the procedure and the sedation options and risks were discussed with the patient. All questions were answered, and informed consent was obtained. Prior Anticoagulants: The patient has taken Coumadin (warfarin), last dose was 3 days prior to procedure. ASA Grade Assessment: III - A patient with severe systemic disease. After reviewing the risks and benefits, the patient was deemed in satisfactory condition to undergo the procedure. After obtaining informed consent, the endoscope was passed under direct vision. Throughout the procedure, the patient's blood pressure, pulse, and oxygen saturations were monitored continuously. The Endoscope was introduced through the mouth, and advanced to the second part of duodenum. The upper GI endoscopy was accomplished without difficulty. The patient tolerated the procedure well. Moderate Sedation: MAC anesthesia was administered by the anesthesia team. Findings: The examined esophagus was normal. Diffuse erythematous mucosa was found in the gastric antrum. Biopsies were taken with a cold forceps for Helicobacter pylori testing. Estimated blood loss was minimal. The exam of the stomach was otherwise normal. Patchy erythematous mucosa was found in the duodenal bulb. Biopsies for histology were taken with a cold forceps for evaluation of celiac disease. Estimated blood loss was minimal. Impression: - Normal esophagus. - Erythematous mucosa in the antrum. Biopsied. - Erythematous duodenopathy. Biopsied. Estimated Blood Loss: Estimated blood loss was minimal. Recommendation: - Discharge patient to home (ambulatory). - Resume previous diet. - Continue present medications. - Await pathology results. - Return to referring physician. Procedure Code(s): --- Professional --- 62895, Esophagogastroduodenoscopy, flexible, transoral; with biopsy, single or multiple CPT copyright 2020 [employer]. All rights reserved. The codes documented in this report are preliminary and upon concrete wall grinder operator review may be revised to meet current compliance requirements. Attending Participation: I was present and participated during the entire procedure, including non-freeman portions. Scope In: 9:50:52 AM Scope Out: 9:55:48 AM MD Rocky Duarte MD 02/05/2024 9:58:25 AM This report has been signed electronically by Rocky Ortega MD Number of Addenda: 0 Note Initiated On: 02/05/2024 9:29 AM [facility] Radiology Study observation (narrative) [facility] Flexible sigmoidoscopy study on 02-05-2024 A31 Gastrointestinal Endoscopy Patient Name: Yazan Nolasco Procedure Date: 02/05/2024 9:27 AM Date of : 1950 Admit Type: Outpatient Age: 73 Room: [address] Gender: Male Note Status: Finalized Attending MD: Rocky Ortega MD, [id number] Procedure: Colonoscopy Indications: Iron deficiency anemia Providers: Rocky Ortega MD, Elmo Gonzales MD (Fellow) Patient Profile: This is a 73 year old male. Refer to note in patient chart for documentation of history and physical. Last Colonoscopy: date unknown. Unable to locate last colonoscopy report. Referring Physician: Jennifer Shepherd (pa) (Referring MD) Medicines: Monitored Anesthesia Care Complications: No immediate complications. Estimated blood loss: Minimal. Requesting Provider: Procedure: Pre-Anesthesia Assessment: - Prior to the procedure, a History and Physical was performed, and patient medications and allergies were reviewed. The patient's tolerance of previous anesthesia was also reviewed. The risks and benefits of the procedure and the sedation options and risks were discussed with the patient. All questions were answered, and informed consent was obtained. Prior Anticoagulants: The patient has taken Coumadin (warfarin), last dose was 3 days prior to procedure. ASA Grade Assessment: III - A patient with severe systemic disease. After reviewing the risks and benefits, the patient was deemed in satisfactory condition to undergo the procedure. After I obtained informed consent, the scope was passed under direct vision. Throughout the procedure, the patient's blood pressure, pulse, and oxygen saturations were monitored continuously. The Colonoscope was introduced through the anus and advanced to the cecum, identified by appendiceal orifice and ileocecal valve. The colonoscopy was performed without difficulty. The patient tolerated the procedure well. The quality of the bowel preparation was evaluated using the BBPS ([place] Bowel Preparation Scale) with scores of: Right Colon = 2 (minor amount of residual staining, small fragments of stool and/or opaque liquid, but mucosa seen well), Transverse Colon = 1 (portion of mucosa seen, but other areas not well seen due to staining, residual stool and/or opaque liquid) and Left Colon = 2 (minor amount of residual staining, small fragments of stool and/or opaque liquid, but mucosa seen well). The total BBPS score equals 5. The quality of the bowel preparation was inadequate. The ileocecal valve, appendiceal orifice, and rectum were photographed. The quality of the bowel preparation was poor. Moderate Sedation: MAC anesthesia was administered by the anesthesia team. Findings: Hemorrhoids were found on perianal exam. A few medium-mouthed diverticula were found in the sigmoid colon. Two sessile polyps were found in the transverse colon. The polyps were 5 to 8 mm in size. Polypectomy was not attempted due to the patient taking anticoagulation medication. Internal hemorrhoids were found during retroflexion. The exam was otherwise without abnormality on direct and retroflexion views. Impression: - Preparation of the colon was inadequate. - Hemorrhoids found on perianal exam. - Diverticulosis in the sigmoid colon. - Two 5 to 8 mm polyps in the transverse colon. Resection not attempted. - Internal hemorrhoids. - The examination was otherwise normal on direct and retroflexion views. - No specimens collected. Estimated Blood Loss: Estimated blood loss was minimal. Recommendation: - Discharge patient to home (ambulatory). - Resume previous diet. - Continue present medications. - Repeat colonoscopy (more content not included)... [facility] Radiology Study observation (narrative) [facility] GLUCOSE, BLOOD (POC)on 02-04 Glucose [Mass/Vol] 135 mg/dL Abnormal 74 - 99 mg/dL [facility] Comment on above: Location:[facility], [address] [place] [address], [facility] The Accu-Chek Inform II glucose meter has not been approved for testing on patients receiving intensive medical intervention or therapy and results from this point of care glucose test should not be used for patient management decisions in these cases. Inaccurate results may also occur from other interfering factors, such as N-acetylcysteine (blood concentrations of greater than 5mg/dL), galactose, extremes of hematocrit (<10 or >65), or high doses of ascorbic acid (vitamin C) greater than 3mg/dL. Consider alternate testing mechanisms (e.g. core lab, blood gas instrument) in the above situations. Interpretation and review of laboratory results Abnormal [facility] CBC W Auto Differential pane l (Bld)on 12-26-2023 Basophils (Bld) [#/Vol] 0.06 10*3/uL <0.11 k/uL [facility] Basophils/100 WBC (Bld) 1.1 % [facility] Differential cell count method Nom (Bld) Auto [facility] Eosinophils (Bld) [#/Vol] 0.11 10*3/uL <0.46 k/uL [facility] Eosinophils/100 WBC (Bld) 2.1 % [facility] Erythrocyte distribution width (RBC) [Ratio] 15.9 % High 11.5 - 15.0 % [facility] Hematocrit (Bld) [Volume fraction] 31.7 % Low 39.0 - 51.0 % [facility] Hemoglobin (Bld) [Mass/Vol] 10.2 g/dL Low 13.0 - 17.0 g/dL [facility] Immature granulocytes (Bld) [#/Vol] <0.10 k/uL [facility] Immature granulocytes/100 WBC (Bld) 0.4 % [facility] Lymphocytes (Bld) [#/Vol] 1.30 10*3/uL 1.00 - 4.00 k/uL [facility] Lymphocytes/100 WBC (Bld) 24.4 % [facility] MCH (RBC) [Entitic mass] 26.6 pg 26.0 - 34.0 pg [facility] MCHC (RBC) [Mass/Vol] 32.2 g/dL 30.5 - 36.0 g/dL [facility] MCV (RBC) [Entitic vol] 82.8 fL 80.0 - 100.0 fL [facility] Monocytes (Bld) [#/Vol] 0.32 10*3/uL <0.87 k/uL [facility] Monocytes/100 WBC (Bld) 6.0 % [facility] Neutrophils (Bld) [#/Vol] 3.52 10*3/uL 1.45 - 7.50 k/uL [facility] Neutrophils/100 WBC (Bld) 66.0 % [facility] Nucleated RBC (Bld) [#/Vol] <0.01 k/uL [facility] Nucleated RBC/100 WBC (Bld) [Ratio] 0.0 /100 WBC [facility] Platelet mean volume (Bld) [Entitic vol] 8.9 fL Low 9.0 - 12.7 fL [facility] Platelets (Bld) [#/Vol] 113 10*3/uL Low 150 - 400 k/uL [facility] RBC (Bld) [#/Vol] 3.83 10*6/uL Low 4.20 - 6.0 0 m/uL [facility] WBC (Bld) [#/Vol] 5.33 10*3/uL 3.70 - 11. 00 k/uL [facility] Comprehensive metabolic 2000 panelon 12-26-2023 Albumin [Mass/Vol] 3.2 g/dL Low 3.9 - 4.9 g/dL [facility] ALP [Catalytic activity/Vol] 122 U/L High 38 - 113 U/L [facility] ALT [Catalytic activity/Vol] 6 U/L Low 10 - 54 U/L [facility] Anion gap [Moles/Vol] 6 mmol/L Low 9 - 18 mmol/L [facility] AST [Catalytic activity/Vol] 11 U/L Low 14 - 40 U/L [facility] Bilirubin [Mass/Vol] 0.3 mg/dL 0.2 - 1.3 mg/dL [facility] Calcium [Mass/Vol] 9.0 mg/dL 8.5 - 10. 2 mg/dL [facility] Chloride [Moles/Vol] 105 mmol/L 97 - 105 mmol/L [facility] CO2 [Moles/Vol] 26 mmol/L 22 - 30 mmol/L [facility] Creatinine [Mass/Vol] 1.06 mg/dL 0.73 - 1.22 mg/dL [facility] Estimated Glomerular Filtration Rate 74 mL/min/1.73m >=60 mL/min/1.73m [facility] Glucose [Mass/Vol] 100 mg/dL High 74 - 99 mg/dL [facility] Potassium [Moles/Vol] 4.3 mmol/L 3.7 - 5.1 mmol/L [facility] Protein [Mass/Vol] 6.2 g/dL Low 6.3 - 8.0 g/dL [facility] Sodium [Moles/Vol] 137 mmol/L 136 - 144 mmol/L [facility] Urea nitrogen [Mass/Vol] 7 mg/dL Low 9 - 24 mg/dL [facility] PT panel Coag (PPP)on 2023 INR Coag (Bld) [Relative time] 1.9 {INR} Abnormal 2 - 3 [facility] ICD REMOTE CHECKon 4 AV Delay Adaptive Paced Minimum (ms) 250 ms [facility] AV Delay Adaptive Sensed Minimum (ms) 250 ms [facility] AV Delay Paced (ms) 220 ms [facility] AV Delay Sensed (ms) 220 ms [facility] David RA Pacing Amplitude (volts) 2.0 V [facility] David RA Pacing Polarity BI [facility] David RA Pacing Pulse Width (ms) 0.5 ms [facility] David RA Sensing Amplitude (mvolts) 0.25 mV [facility] David RA Sensing Polarity BI [facility] David RV Pacing Amplitude (volts) 3.0 V [facility] David RV Pacing Polarity BI [facility] David RV Pacing Pulse Width (ms) 0.5 ms [facility] David RV Sensing Amplitude (mvolts) 0.3 mV [facility] David RV Sensing Polarity BI [facility] Detection Configuration (Vent) 2 - Zone [facility] FastVT_Detection Interval 324 ms [facility] FastVT_Therapy Configuration 2 ATP(s) + 6 Shock(s) [facility] ICD FastVT DetectionStatus ENABLED [facility] ICD-AMS EPISODES 170 {beats}/min [facility] ICD-ATP Episodes (Vent) 0 [facility] ICD-ATRIALFIBRILLAT ION 6 [facility] ICD-ATRIALTACHYCARD IA 6 [facility] ICD-ATRIALTACHYCARD IA 2 [facility] ICD-ATRIALTACHYCARD IA 5 [facility] ICD-Device Mfg BSX [facility] ICD-Fast Ventricular Tachycardia 5 [facility] ICD-LEADIMPEDANCEAT RIAL 481 ohm [facility] ICD-Percent Pacing (Atrial) 1 % [facility] ICD-Percent Pacing (Vent) 0 % [facility] ICD-Shocks Aborted (Vent) 0 [facility] [id number] D 0 [facility] ICD-SHOCKSABORTED [address] [facility] ICD-SHOCKSDELIVERED VENTRICULAR 0 [facility] ICD-Ventricular Fibrillation 0 [facility] Implant Date 09/17/2018 [facility] Lead Impedance (RV) 429 ohm [facility] Lead Impedance High Voltage 56 ohm [facility] Lead1 Mfg BSX [facility] Lead2 Mfg CPM [facility] Location RV [facility] Location RA [facility] Lower Rate (bpm) 50 {beats}/min [facility] Max Sensor Rate (bpm) 130 {beats}/min [facility] MDT_PROG_TACHY_ZONE _DETECTIONS_STATUS ENABLED [facility] Model D142 INOGEN [facility] Model 0295 [employer] Relianc e 4-Site G [facility] Model 4470 Fineline II Sterox EZ [facility] Pacing Mode DDD [facility] Serial Number [id number] [facility] Serial Number [id number] [facility] Serial Number [id number] [facility] Test Charge Time 11.2 s [facility] Therapy Status (Vent) Enabled [facility] Thresh RA Capture Amplitude (volts) 0.8 V [facility] Thresh RA Capture Duration (ms) 0.5 ms [facility] Thresh RV Capture Amplitude (VOLTS) 1.5 V [facility] Thresh RV Capture Duration (MS) 0.5 ms [facility] Tracking Rate (bpm) 110 {beats}/min [facility] VF Zone Detection Interval 324 ms [facility] VF Zone Therapy Configuration 2 ATP(s) + 6 Shock(s) [facility] No Panel Informationon 10-27 BLANK _ [facility] ICD-ATRIALTACHYCARD IA 0 [facility] ICD-Fast Ventricular Tachycardia 0 [facility] Implant Date 03/11/2012 [facility] ICD REMOTE CHECKon AV Delay Adaptive Paced Minimum (ms) 250 ms [facility] AV Delay Adaptive Sensed Minimum (ms) 250 ms [facility] AV Delay Paced (ms) 220 ms [facility] AV Delay Sensed (ms) 220 ms [facility] David RA Pacing Amplitude (volts) 2.0 V [facility] Dvaid RA Pacing Polarity BI [facility] David RA Pacing Pulse Width (ms) 0.5 ms [facility] David RA Sensing Amplitude (mvolts) 0.25 mV [facility] David RA Sensing Polarity BI [facility] David RV Pacing Amplitude (volts) 3.0 V [facility] David RV Pacing Polarity BI [facility] David RV Pacing Pulse Width (ms) 0.5 ms [facility] David RV Sensing Amplitude (mvolts) 0.3 mV [facility] David RV Sensing Polarity BI [facility] Detection Configuration (Vent) 2 - Zone [facility] FastVT_Detection Interval 324 ms [facility] FastVT_Therapy Configuration 2 ATP(s) + 6 Shock(s) [facility] ICD FastVT DetectionStatus ENABLED [facility] ICD-AMS EPISODES 170 {beats}/min [facility] ICD-ATP Episodes (Vent) 0 [facility] ICD-ATRIALFIBRILLAT ION 1521 [facility] ICD-ATRIALTACHYCARD IA 1521 [facility] ICD-ATRIALTACHYCARD IA 76 [facility] ICD-ATRIALTACHYCARD IA 190 [facility] ICD-Device Mfg BSX [facility] ICD-Fast Ventricular Tachycardia 190 [facility] ICD-LEADIMPEDANCEAT RIAL 448 ohm [facility] ICD-Percent Pacing (Atrial) 1 % [facility] ICD-Percent Pacing (Vent) 5 % [facility] ICD-Shocks Aborted (Vent) 0 [facility] [id number] D 0 [facility] ICD-SHOCKSABORTED [address] [facility] ICD-SHOCKSDELIVERED VENTRICULAR 0 [facility] ICD-Ventricular Fibrillation 0 [facility] Implant Date 09/17/2018 [facility] Lead Impedance (RV) 409 ohm [facility] Lead Impedance High Voltage 52 ohm [facility] Lead1 Mfg BSX [facility] Lead2 Mfg CPM [facility] Location RV [facility] Location RA [facility] Lower Rate (bpm) 50 {beats}/min [facility] Max Sensor Rate (bpm) 130 {beats}/min [facility] MDT_PROG_TACHY_ZONE _DETECTIONS_STATUS ENABLED [facility] Model D142 INOGEN [facility] Model 0295 [employer] Relian[employer] e 4-Site G [facility] Model 4470 Fineline II Sterox EZ [facility] Pacing Mode DDD [facility] Serial Number [id number] [facility] Serial Number [id number] [facility] Serial Number [id number] [facility] Test Charge Time 11.2 s [facility] Therapy Status (Vent) Enabled [facility] Thresh RA Capture Amplitude (volts) 0.8 V [facility] Thresh RA Capture Duration (ms) 0.5 ms [facility] Thresh RV Capture Amplitude (VOLTS) 1.5 V [facility] Thresh RV Capture Duration (MS) 0.5 ms [facility] Tracking Rate (bpm) 110 {beats}/min [facility] VF Zone Detection Interval 324 ms [facility] VF Zone Therapy Configuration 2 ATP(s) + 6 Shock(s) [facility] No Panel Informationon 07-27 BLANK _ [facility] ICD-ATRIALTACHYCARD IA 0 [facility] ICD-Fast Ventricular Tachycardia 0 [facility] Implant Date 03/11/2012 [facility] Absolute lymphocyte countOrd ered By: Jayleen Kwok on 07-25-2023 Lymphocytes Auto (Unsp spec) [#/Vol] 1.45 10*3/uL 0.83-4.51 [facility] Basophil percentageOrdered B y: Jayleen Kwok on 07-25-2023 Basophils/100 WBC (Bld) 0.9 % 0-1 [facility] Bilirubin [Mass/Vol] 0.30 mg/dL 0.20-1.00 [facility] Comment on above: For patients on eltr ombopag therapy, use of Dimension [place] TBIL is not recommended. Chloride [Moles/Vol] 104 mmol/L 98-107 [facility] Eosinophils/100 WBC (Bld) 2.2 % 0-5 [facility] Glucose [Mass/Vol] 83 mg/dL 74-106 [facility] Neutrophils (Bld) [#/Vol] 3.5 10*3/uL 2.0-7.7 [facility] Neutrophils/100 WBC (Bld) 64.2 % 47-70 [facility] Potassium [Moles/Vol] 3.2 mmol/L 3.5-5.1 [facility] Protein [Mass/Vol] 6.6 g/dL 6.4-8.2 [facility] Sodium [Moles/Vol] 142 mmol/L 136-145 [facility] WBC (Bld) [#/Vol] 5.4 10*3/uL 4.4-11.0 [facility] Blood erythrocytes count (nu mber/volume)Ordered By: Jayleen Kwok on 07-25-2023 RBC (Bld) [#/Vol] 4.27 10*6/uL 4.6-6.2 [facility] Blood hemoglobin measurement (mass/volume)Ordered By: Jayleen Kwok on 07-25-2023 Hemoglobin (Bld) [Mass/Vol] 10.1 g/dL 13.0-16.5 [facility] Blood lymphocytes/100 leukoc ytesOrdered By: Jayleen Kwok on 07-25-2023 Lymphocytes/100 WBC (Bld) 26.9 % 19-41 [facility] Blood monocytes/100 leukocyt esOrdered By: Jayleen Kwok on 07-25-2023 Monocytes/100 WBC (Bld) 5.6 % 0-10 [facility] Blood platelet mean volumeOr dered By: Jayleen Kwok on 07-25-2023 Platelet mean volume (Bld) [Entitic vol] 10.8 fL 6.2-12.0 [facility] Determination of erythrocyte mean corpuscular volume (MCV)Ordered By: Jayleen Kwok on 07-25-2023 MCV (RBC) [Entitic vol] 79.4 fL 80-94 [facility] Erythrocyte sedimentation ra teOrdered By: Jayleen Kwok on 07-25-2023 ESR (Bld) [Velocity] 21 mm/h 0-20 [facility] Hematocrit Auto (Bld) [Volum e fraction]Ordered By: Jayleen Kwok on 07-25-2023 Hematocrit (Bld) [Volume fraction] 33.9 % 40-54 [facility] Laboratory - Chemistry and C hemistry - challengeOrdered By: Jayleen Kwok on 07-25-2023 ALP [Catalytic activity/Vol] 151 U/L 45-117 [facility] ALT [Catalytic activity/Vol] 14 U/L 16-61 [facility] CO2 [Moles/Vol] 30.0 mmol/L 21.0-32.0 [facility] Globulin (S) [Mass/Vol] 4.0 g/dL 2.2-4.2 [facility] Urea nitrogen/Creatinine [Mass ratio] 8.9 mg/mg 10-20 [facility] - Hematology and Cell countsOrdered By: Jayleen Kwok on 07-25-2023 Erythrocyte distribution width (RBC) [Entitic vol] 46.8 fL 35.1-43.9 [facility] Erythrocyte distribution width (RBC) [Ratio] 16.5 % 11.6-14.6 [facility] Immature granulocytes/100 WBC (Bld) 0.200 % 0.0-0.9 [facility] Comment on above: IG% - Immature Granu locytes (promyelocytes, myelocytes and metamyelocytes) > 1% indicates that a LEFT SHIFT is Present. MCH (RBC) [Entitic mass] 23.7 pg 27.0-32.0 [facility] Nucleated RBC/100 WBC (Bld) [Ratio] 0 % 0-5 [facility] MCHC Auto (RBC) [Mass/Vol]Or dered By: Jayleen Kwok on 07-25-2023 MCHC (RBC) [Mass/Vol] 29.8 g/dL 32-36 [facility] No Panel InformationOrdered By: Jayleen Kwok on 07-25-2023 Estimated GFR (MDRD) Amer 93 mL/min >60 [facility] Comment on above: GFR Calc Estimated GFR (MDRD) Non-Af Amer 77 mL/min >60 [facility] Comment on above: Non- GFR Calc Platelets bldOrdered By: Nidia Kwok on 07-25-2023 Platelets (Bld) [#/Vol] 164 10*3/uL 150-450 [facility] Serum or plasma C reactive p rotein measurement (mass/volume)Ordered By: Jayleen Kwok on 07-25-2023 CRP [Mass/Vol] 9.89 mg/L 0.0-3.0 [facility] Comment on above: C-Reactive Protein ( CRP) provides useful information for thediagnosis, therapy and monitoring of inflammatory processesand associated diseases. For the evaluation of Relative Riskfor Cardiovascular Disease, a High Sensitivity CRP (HSCRP)should be ordered. Serum or plasma albumin silver urement (mass/volume)Ordered By: Jayleen Kwok on 07-25-2023 Albumin [Mass/Vol] 2.6 g/dL 3.2-5.0 [facility] Serum or plasma albumin/glob ulin mass ratioOrdered By: Jayleen Kwok on 07-25-2023 Albumin/Globulin [Mass ratio] 0.6 {ratio} 0.9-2.4 [facility] Serum or plasma calcium silver urement (mass/volume)Ordered By: Jayleen Kwok on 07-25-2023 Calcium [Mass/Vol] 8.2 mg/dL 8.5-10.1 [facility] Serum or plasma creatinine m easurement (mass/volume)Ordered By: Jayleen Kwok on 07-25-2023 Creatinine [Mass/Vol] 1.01 mg/dL 0.70-1.30 [facility] Comment on above: The validity of the calculated GFR & GFRAA in patients over 70 years has not been determined. Clinical correlation is essential. Serum or plasma urea nitroge n measurement (mass/volume)Ordered By: Jayleen Kwok on 07-25-2023 Urea nitrogen [Mass/Vol] 9 mg/dL 7-18 [facility] Thin prep Papanicolaou smear with manual screeningOrdered By: Jayleen Kwok on 07-25-2023 Thin prep Papanicolaou smear with manual screening 14 U/L 15 [facility] Thin prep Papanicolaou smear with manual screening 8 5-15 [facility] ICD CLINIC CHECKon 3 AV Delay Adaptive Paced Minimum (ms) 250 ms [facility] AV Delay Adaptive Sensed Minimum (ms) 250 ms [facility] AV Delay Paced (ms) 220 ms [facility] AV Delay Sensed (ms) 220 ms [facility] David RA Pacing Amplitude (volts) 2.0 V [facility] David RA Pacing Polarity BI [facility] David RA Pacing Pulse Width (ms) 0.5 ms [facility] David RA Sensing Amplitude (mvolts) 0.25 mV [facility] David RA Sensing Polarity BI [facility] David RV Pacing Amplitude (volts) 3.0 V [facility] David RV Pacing Polarity BI [facility] David RV Pacing Pulse Width (ms) 0.5 ms [facility] David RV Sensing Amplitude (mvolts) 0.3 mV [facility] David RV Sensing Polarity BI [facility] Detection Configuration (Vent) 2 - Zone [facility] FastVT_Detection Interval 324 ms [facility] FastVT_Therapy Configuration 2 ATP(s) + 6 Shock(s) [facility] ICD FastVT DetectionStatus ENABLED [facility] ICD-AMS EPISODES 170 {beats}/min [facility] ICD-ATP Episodes (Vent) 0 [facility] ICD-ATRIALFIBRILLAT ION 1497 [facility] ICD-Device Mfg BSX [facility] ICD-Fast Ventricular Tachycardia 189 [facility] ICD-LEADIMPEDANCEAT RIAL 423 ohm [facility] ICD-Percent Pacing (Atrial) 1 % [facility] ICD-Percent Pacing (Vent) 6 % [facility] ICD-Rhythm SR [facility] ICD-Shocks Aborted (Vent) 0 [facility] [id number] D 0 [facility] ICD-SHOCKSABORTED [address] [facility] ICD-SHOCKSDELIVERED VENTRICULAR 0 [facility] ICD-Ventricular Fibrillation 0 [facility] Implant Date 09/17/2018 [facility] Lead Impedance (RV) 418 ohm [facility] Lead Impedance High Voltage 55 ohm [facility] Lead1 Mfg BSX [facility] Lead2 Mfg CPM [facility] Location RV [facility] Location RA [facility] Lower Rate (bpm) 50 {beats}/min [facility] Max Sensor Rate (bpm) 130 {beats}/min [facility] MDT_PROG_TACHY_ZONE _DETECTIONS_STATUS ENABLED [facility] Model D142 INOGEN [facility] Model 0295 [place] [employer] e 4-Site G [facility] Model 4470 Fineline II Sterox EZ [facility] Pacemaker Dependent? NO [facility] Pacing Mode DDD [facility] Serial Number [id number] [facility] Serial Number [id number] [facility] Serial Number [id number] [facility] Test Charge Time 11.2 s [facility] Therapy Status (Vent) Enabled [facility] Thresh RA Capture Amplitude (volts) 0.8 V [facility] Thresh RA Capture Duration (ms) 0.5 ms [facility] Thresh RV Capture Amplitude (VOLTS) 1.5 V [facility] Thresh RV Capture Duration (MS) 0.5 ms [facility] Tracking Rate (bpm) 110 {beats}/min [facility] VF Zone Detection Interval 324 ms [facility] VF Zone Therapy Configuration 2 ATP(s) + 6 Shock(s) [facility] No Panel Informationon 04-30 BLANK _ [facility] ICD-Fast Ventricular Tachycardia 0 [facility] Implant Date 03/11/2012 [facility] ICD REMOTE CHECKon 3 AV Delay Adaptive Paced Minimum (ms) 250 ms [facility] AV Delay Adaptive Sensed Minimum (ms) 250 ms [facility] AV Delay Paced (ms) 220 ms [facility] AV Delay Sensed (ms) 220 ms [facility] David RA Pacing Amplitude (volts) 2.0 V [facility] David RA Pacing Polarity BI [facility] David RA Pacing Pulse Width (ms) 0.5 ms [facility] David RA Sensing Amplitude (mvolts) 0.25 mV [facility] David RA Sensing Polarity BI [facility] David RV Pacing Amplitude (volts) 2.4 V [facility] David RV Pacing Polarity BI [facility] David RV Pacing Pulse Width (ms) 0.5 ms [facility] David RV Sensing Amplitude (mvolts) 0.3 mV [facility] David RV Sensing Polarity BI [facility] Detection Configuration (Vent) 2 - Zone [facility] FastVT_Detection Interval 324 ms [facility] FastVT_Therapy Configuration 2 ATP(s) + 6 Shock(s) [facility] ICD FastVT DetectionStatus ENABLED [facility] ICD-AMS EPISODES 170 {beats}/min [facility] ICD-ATP Episodes (Vent) 0 [facility] ICD-ATRIALFIBRILLAT ION 1495 [facility] ICD-ATRIALTACHYCARD IA 1495 [facility] ICD-ATRIALTACHYCARD IA 75 [facility] ICD-ATRIALTACHYCARD IA 189 [facility] ICD-Device Mfg BSX [facility] ICD-Fast Ventricular Tachycardia 189 [facility] ICD-LEADIMPEDANCEAT RIAL 453 ohm [facility] ICD-Percent Pacing (Atrial) 1 % [facility] ICD-Percent Pacing (Vent) 6 % [facility] ICD-Shocks Aborted (Vent) 0 [facility] [id number] D 0 [facility] ICD-SHOCKSABORTED [address] [facility] ICD-SHOCKSDELIVERED VENTRICULAR 0 [facility] ICD-Ventricular Fibrillation 0 [facility] Implant Date 09/17/2018 [facility] Lead Impedance (RV) 425 ohm [facility] Lead Impedance High Voltage 55 ohm [facility] Lead1 Mfg BSX [facility] Lead2 Mfg CPM [facility] Location RV [facility] Location RA [facility] Lower Rate (bpm) 50 {beats}/min [facility] Max Sensor Rate (bpm) 130 {beats}/min [facility] MDT_PROG_TACHY_ZONE _DETECTIONS_STATUS ENABLED [facility] Model D142 INOGEN [facility] Model 0295 [place] [employer] 4-Site G [facility] Model 4470 Fineline II Sterox EZ [facility] Pacing Mode DDD [facility] Serial Number [id number] [facility] Serial Number [id number] [facility] Serial Number [id number] [facility] Test Charge Time 11.2 s [facility] Therapy Status (Vent) Enabled [facility] Thresh RA Capture Amplitude (volts) 0.7 V [facility] Thresh RA Capture Duration (ms) 0.5 ms [facility] Thresh RV Capture Amplitude (VOLTS) 1.4 V [facility] Thresh RV Capture Duration (MS) 0.5 ms [facility] Tracking Rate (bpm) 110 {beats}/min [facility] VF Zone Detection Interval 324 ms [facility]F Zone Therapy Configuration 2 ATP(s) + 6 Shock(s) [facility] No Panel Informationon 04-27 BLANK _ [facility] ICD-ATRIALTACHYCARD IA 0 [facility] ICD-Fast Ventricular Tachycardia 0 [facility] Implant Date 03/11/2012 [facility] ICD REMOTE CHECKon AV Delay Adaptive Paced Minimum (ms) 250 ms [facility] AV Delay Adaptive Sensed Minimum (ms) 250 ms [facility] AV Delay Paced (ms) 220 ms [facility] AV Delay Sensed (ms) 220 ms [facility] David RA Pacing Amplitude (volts) 2.0 V [facility] David RA Pacing Polarity BI [facility] David RA Pacing Pulse Width (ms) 0.5 ms [facility] David RA Sensing Amplitude (mvolts) 0.25 mV [facility] David RA Sensing Polarity BI [facility] David RV Pacing Amplitude (volts) 2.4 V [facility] David RV Pacing Polarity BI [facility] David RV Pacing Pulse Width (ms) 0.5 ms [facility] David RV Sensing Amplitude (mvolts) 0.3 mV [facility] David RV Sensing Polarity BI [facility] Detection Configuration (Vent) 2 - Zone [facility] FastVT_Detection Interval 324 ms [facility] FastVT_Therapy Configuration 2 ATP(s) + 6 Shock(s) [facility] ICD FastVT DetectionStatus ENABLED [facility] ICD-AMS EPISODES 170 {beats}/min [facility] ICD-ATP Episodes (Vent) 0 [facility] ICD-ATRIALFIBRILLAT ION 1495 [facility] ICD-ATRIALTACHYCARD IA 1495 [facility] ICD-ATRIALTACHYCARD IA 75 [facility] ICD-ATRIALTACHYCARD IA 189 [facility] ICD-Device Mfg BSX [facility] ICD-Fast Ventricular Tachycardia 189 [facility] ICD-LEADIMPEDANCEAT RIAL 440 ohm [facility] ICD-Percent Pacing (Atrial) 1 % [facility] ICD-Percent Pacing (Vent) 5 % [facility] ICD-Shocks Aborted (Vent) 0 [facility] [id number] D 0 [facility] ICD-SHOCKSABORTED [address] [facility] ICD-SHOCKSDELIVERED VENTRICULAR 0 [facility] ICD-Ventricular Fibrillation 0 [facility] Implant Date 09/17/2018 [facility] Lead Impedance (RV) 421 ohm [facility] Lead Impedance High Voltage 52 ohm [facility] Lead1 Mfg BSX [facility] Lead2 Mfg CPM [facility] Location RV [facility] Location RA [facility] Lower Rate (bpm) 50 {beats}/min [facility] Max Sensor Rate (bpm) 130 {beats}/min [facility] MDT_PROG_TACHY_ZONE _DETECTIONS_STATUS ENABLED [facility] Model D142 INOGEN [facility] Model 0295 [place] [employer] 4-Site G [facility] Model 4470 Fineline II Sterox EZ [facility] Pacing Mode DDD [facility] Serial Number [id number] [facility] Serial Number [id number] [facility] Serial Number [id number] [facility] Test Charge Time 11.2 s [facility] Therapy Status (Vent) Enabled [facility] Thresh RA Capture Amplitude (volts) 0.7 V [facility] Thresh RA Capture Duration (ms) 0.5 ms [facility] Thresh RV Capture Amplitude (VOLTS) 1.4 V [facility] Thresh RV Capture Duration (MS) 0.5 ms [facility] Tracking Rate (bpm) 110 {beats}/min [facility] VF Zone Detection Interval 324 ms [facility] VF Zone Therapy Configuration 2 ATP(s) + 6 Shock(s) [facility] No Panel Informationon 04-13 BLANK _ [facility] ICD-ATRIALTACHYCARD IA 0 [facility] ICD-Fast Ventricular Tachycardia 0 [facility] Implant Date 03/11/2012 [facility] ICD REMOTE CHECKon 3 AV Delay Adaptive Paced Minimum (ms) 250 ms [facility] AV Delay Adaptive Sensed Minimum (ms) 250 ms [facility] AV Delay Paced (ms) 220 ms [facility] AV Delay Sensed (ms) 220 ms [facility] David RA Pacing Amplitude (volts) 2.0 V [facility] David RA Pacing Polarity BI [facility] David RA Pacing Pulse Width (ms) 0.5 ms [facility] David RA Sensing Amplitude (mvolts) 0.25 mV [facility] David RA Sensing Polarity BI [facility] David RV Pacing Amplitude (volts) 2.4 V [facility] David RV Pacing Polarity BI [facility] David RV Pacing Pulse Width (ms) 0.5 ms [facility] David RV Sensing Amplitude (mvolts) 0.3 mV [facility] David RV Sensing Polarity BI [facility] Detection Configuration (Vent) 2 - Zone [facility] FastVT_Detection Interval 324 ms [facility] FastVT_Therapy Configuration 2 ATP(s) + 6 Shock(s) [facility] ICD FastVT DetectionStatus ENABLED [facility] ICD-AMS EPISODES 170 {beats}/min [facility] ICD-ATP Episodes (Vent) 0 [facility] ICD-ATRIALFIBRILLAT ION 1472 [facility] ICD-ATRIALTACHYCARD IA 1472 [facility] ICD-ATRIALTACHYCARD IA 73 [facility] ICD-ATRIALTACHYCARD IA 183 [facility] ICD-Device Mfg BSX [facility] ICD-Fast Ventricular Tachycardia 183 [facility] ICD-LEADIMPEDANCEAT RIAL 439 ohm [facility] ICD-Percent Pacing (Atrial) 1 % [facility] ICD-Percent Pacing (Vent) 1 % [facility] ICD-Shocks Aborted (Vent) 0 [facility] [id number] D 0 [facility] ICD-SHOCKSABORTED [address] [facility] ICD-SHOCKSDELIVERED VENTRICULAR 0 [facility] ICD-Ventricular Fibrillation 0 [facility] Implant Date 09/17/2018 [facility] Lead Impedance (RV) 429 ohm [facility] Lead Impedance High Voltage 52 ohm [facility] Lead1 Mfg BSX [facility] Lead2 Mfg CPM [facility] Location RV [facility] Location RA [facility] Lower Rate (bpm) 50 {beats}/min [facility] Max Sensor Rate (bpm) 130 {beats}/min [facility] MDT_PROG_TACHY_ZONE _DETECTIONS_STATUS ENABLED [facility] Model D142 INOGEN [facility] Model 0295 [place] [employer] 4-Site G [facility] Model 4470 Fineline II Sterox EZ [facility] Pacing Mode DDD [facility] Serial Number [id number] [facility] Serial Number [id number] [facility] Serial Number [id number] [facility] Test Charge Time 11.0 s [facility] Therapy Status (Vent) Enabled [facility] Thresh RA Capture Amplitude (volts) 0.7 V [facility] Thresh RA Capture Duration (ms) 0.5 ms [facility] Thresh RV Capture Amplitude (VOLTS) 1.4 V [facility] Thresh RV Capture Duration (MS) 0.5 ms [facility] Tracking Rate (bpm) 110 {beats}/min [facility] VF Zone Detection Interval 324 ms [facility]F Zone Therapy Configuration 2 ATP(s) + 6 Shock(s) [facility] AV Delay Adaptive Paced Minimum (ms) 250 ms [facility] AV Delay Adaptive Sensed Minimum (ms) 250 ms [facility] AV Delay Paced (ms) 220 ms [facility] AV Delay Sensed (ms) 220 ms [facility] David RA Pacing Amplitude (volts) 2.0 V [facility] David RA Pacing Polarity BI [facility] David RA Pacing Pulse Width (ms) 0.5 ms [facility] David RA Sensing Amplitude (mvolts) 0.25 mV [facility] David RA Sensing Polarity BI [facility] David RV Pacing Amplitude (volts) 2.4 V [facility] David RV Pacing Polarity BI [facility] David RV Pacing Pulse Width (ms) 0.5 ms [facility] David RV Sensing Amplitude (mvolts) 0.3 mV [facility] David RV Sensing Polarity BI [facility] Detection Configuration (Vent) 2 - Zone [facility] FastVT_Detection Interval 324 ms [facility] FastVT_Therapy Configuration 2 ATP(s) + 6 Shock(s) [facility] ICD FastVT DetectionStatus ENABLED [facility] ICD-AMS EPISODES 170 {beats}/min [facility] ICD-ATP Episodes (Vent) 0 [facility] ICD-ATRIALFIBRILLAT ION 1472 [facility] ICD-ATRIALTACHYCARD IA 1472 [facility] ICD-ATRIALTACHYCARD IA 73 [facility] ICD-ATRIALTACHYCARD IA 183 [facility] ICD-Device Mfg BSX [facility] ICD-Fast Ventricular Tachycardia 183 [facility] ICD-LEADIMPEDANCEAT RIAL 439 ohm [facility] ICD-Percent Pacing (Atrial) 1 % [facility] ICD-Percent Pacing (Vent) 1 % [facility] ICD-Shocks Aborted (Vent) 0 [facility] [id number] D 0 [facility] ICD-SHOCKSABORTED [address] [facility] ICD-SHOCKSDELIVERED VENTRICULAR 0 [facility] ICD-Ventricular Fibrillation 0 [facility] Implant Date 09/17/2018 [facility] Lead Impedance (RV) 429 ohm [facility] Lead Impedance High Voltage 52 ohm [facility] Lead1 Mfg BSX [facility] Lead2 Mfg CPM [facility] Location RV [facility] Location RA [facility] Lower Rate (bpm) 50 {beats}/min [facility] Max Sensor Rate (bpm) 130 {beats}/min [facility] MDT_PROG_TACHY_ZONE _DETECTIONS_STATUS ENABLED [facility] Model D142 INOGEN [facility] Model 0295 [place] [employer] 4-Site G [facility] Model 4470 Fineline II Sterox EZ [facility] Pacing Mode DDD [facility] Serial Number [id number] [facility] Serial Number [id number] [facility] Serial Number [id number] [facility] Test Charge Time 11.0 s [facility] Therapy Status (Vent) Enabled [facility] Thresh RA Capture Amplitude (volts) 0.7 V [facility] Thresh RA Capture Duration (ms) 0.5 ms [facility] Thresh RV Capture Amplitude (VOLTS) 1.4 V [facility] Thresh RV Capture Duration (MS) 0.5 ms [facility] Tracking Rate (bpm) 110 {beats}/min [facility] VF Zone Detection Interval 324 ms [facility] VF Zone Therapy Configuration 2 ATP(s) + 6 Shock(s) [facility] No Panel Informationon 02-12 BLANK _ [facility] ICD-ATRIALTACHYCARD IA 0 [facility] ICD-Fast Ventricular Tachycardia 0 [facility] Implant Date 03/11/2012 [facility] BLANK _ [facility] ICD-ATRIALTACHYCARD IA 0 [facility] ICD-Fast Ventricular Tachycardia 0 [facility] Implant Date 03/11/2012 [facility] Absolute lymphocyte countOrd ered By: Dr. Kwok on 12-13-2022 Lymphocytes Auto (Unsp spec) [#/Vol] 1.10 10*3/uL 0.83-4.51 [facility] Basophil percentageOrdered B y: Dr. Kwok on 12-13-2022 Basophils/100 WBC (Bld) 1.0 % 0-1 [facility] Bilirubin [Mass/Vol] 0.40 mg/dL 0.20-1.00 [facility] Comment on above: For patients on eltr ombopag therapy, use of Dimension [place] TBIL is not recommended. Chloride [Moles/Vol] 107 mmol/L 98-107 [facility] Eosinophils/100 WBC (Bld) 1.8 % 0-5 [facility] Glucose [Mass/Vol] 95 mg/dL 74-106 [facility] Neutrophils (Bld) [#/Vol] 3.5 10*3/uL 2.0-7.7 [facility] Neutrophils/100 WBC (Bld) 68.7 % 47-70 [facility] Potassium [Moles/Vol] 4.2 mmol/L 3.5-5.1 [facility] Protein [Mass/Vol] 7.4 g/dL 6.4-8.2 [facility] Sodium [Moles/Vol] 138 mmol/L 136-145 [facility] WBC (Bld) [#/Vol] 5.0 10*3/uL 4.4-11.0 [facility] Blood erythrocytes count (nu mber/volume)Ordered By: Dr. Kwok on 12-13-2022 RBC (Bld) [#/Vol] 4.57 10*6/uL 4.6-6.2 [facility] Blood hemoglobin measurement (mass/volume)Ordered By: Dr. Kwok on 12-13-2022 Hemoglobin (Bld) [Mass/Vol] 11.4 g/dL 13.0-16.5 [facility] Blood lymphocytes/100 leukoc ytesOrdered By: Dr. Kwok on 12-13-2022 Lymphocytes/100 WBC (Bld) 21.8 % 19-41 [facility] Blood monocytes/100 leukocyt esOrdered By: Dr. Kwok on 12-13-2022 Monocytes/100 WBC (Bld) 6.3 % 0-10 [facility] Blood platelet mean volumeOr dered By: Dr. Kwok on 12-13-2022 Platelet mean volume (Bld) [Entitic vol] 11.0 fL 6.2-12.0 [facility] Determination of erythrocyte mean corpuscular volume (MCV)Ordered By: Dr. Kwok on 12-13-2022 MCV (RBC) [Entitic vol] 81.2 fL 80-94 [facility] Erythrocyte sedimentation ra teOrdered By: Dr. Kwok on 12-13-2022 ESR (Bld) [Velocity] 51 mm/h 0-20 [facility] Hematocrit Auto (Bld) [Volum e fraction]Ordered By: Dr. Kwok on 12-13-2022 Hematocrit (Bld) [Volume fraction] 37.1 % 40-54 [facility] Laboratory - Chemistry and C hemistry - challengeOrdered By: Dr. Kwok on 12-13-2022 ALP [Catalytic activity/Vol] 104 U/L 45-117 [facility] ALT [Catalytic activity/Vol] 17 U/L 16-61 [facility] CO2 [Moles/Vol] 23.0 mmol/L 21.0-32.0 [facility] Globulin (S) [Mass/Vol] 3.9 g/dL 2.2-4.2 [facility] Urea nitrogen/Creatinine [Mass ratio] 8.9 mg/mg 10-20 [facility] - Hematology and Cell countsOrdered By: Dr. Kwok on 12-13-2022 Erythrocyte distribution width (RBC) [Entitic vol] 51.2 fL 35.1-43.9 [facility] Erythrocyte distribution width (RBC) [Ratio] 17.5 % 11.6-14.6 [facility] Immature granulocytes/100 WBC (Bld) 0.400 % 0.0-0.9 [facility] Comment on above: IG% - Immature Granu locytes (promyelocytes, myelocytes and metamyelocytes) > 1% indicates that a LEFT SHIFT is Present. MCH (RBC) [Entitic mass] 24.9 pg 27.0-32.0 [facility] Nucleated RBC/100 WBC (Bld) [Ratio] 0 % 0-5 [facility] MCHC Auto (RBC) [Mass/Vol]Or dered By: Dr. Kwok on 12-13-2022 MCHC (RBC) [Mass/Vol] 30.7 g/dL 32-36 [facility] No Panel InformationOrdered By: Dr. Kwok on 12-13-2022 Anti-Nuclear Antibody Screen Negative Negative [facility] Comment on above: Performed at: [facility] [address] [id number] Director: Saud Greer PhD, Phone: [phone] Estimated GFR (MDRD) Amer 107 mL/min >60 [facility] Comment on above: GFR Calc Estimated GFR (MDRD) Non-Af Amer 89 mL/min >60 [facility] Comment on above: Non- GFR Calc Hepatitis B Surface Antigen Non-Reactive Nonreactive [facility] Hepatitis C Antibody Non-Reactive Nonreactive [facility] Comment on above: Non Reactive: < 0.8 Equivocal: >/= 0.8 to < 1.0 Reactive: >/= 1.0The CDC recommends that a reactive/equivocal HCV antibody result be followed up by the HCV Nucleic Acid Amplificationtest ([id number]) Platelets bldOrdered By: Dr. Kwok on 12-13-2022 Platelets (Bld) [#/Vol] 124 10*3/uL 150-450 [facility] Serum cyclic citrullinated p eptide IgG antibody assay (units/volume)Ordered By: Dr. Kwok on 12-13-2022 Cyclic citrullinated peptide IgG Qn 5 units 0-19 [facility] Comment on above: Negative <20 Weak po sitive 20 - 39 Moderate positive 40 - 59 Strong positive >59Performed at: [facility] [id number] [place], [place] [id number] Director: Osito Diane PhD, Phone: [phone] at: [facility] [address] [id number] Director: Saud Greer PhD, Phone: [phone] Serum hepatitis B virus surf calvin antibody IgG detectionOrdered By: Dr. Kwok on 12-13-2022 HBV surface IgG Ql (S) Non-Reactive [facility] Comment on above: Non Reactive: Incons istent with immunity less than <10 mIU/mL Reactive: Consistent with immunity greater than or equal to 10 mIU/mL Serum or plasma C reactive p rotein measurement (mass/volume)Ordered By: Dr. Kwok on 12-13-2022 CRP [Mass/Vol] 14.30 mg/L 0.0-3.0 [facility] Comment on above: C-Reactive Protein ( CRP) provides useful information for thediagnosis, therapy and monitoring of inflammatory processesand associated diseases. For the evaluation of Relative Riskfor Cardiovascular Disease, a High Sensitivity CRP (HSCRP)should be ordered. Serum or plasma albumin silver urement (mass/volume)Ordered By: Dr. Kwok on 12-13-2022 Albumin [Mass/Vol] 3.5 g/dL 3.2-5.0 [facility] Serum or plasma albumin/glob ulin mass ratioOrdered By: Dr. Kwok on 12-13-2022 Albumin/Globulin [Mass ratio] 0.9 {ratio} 0.9-2.4 [facility] Serum or plasma calcium silver urement (mass/volume)Ordered By: Dr. Kwok on 12-13-2022 Calcium [Mass/Vol] 9.2 mg/dL 8.5-10.1 [facility] Serum or plasma creatinine m easurement (mass/volume)Ordered By: Dr. Kwok on 12-13-2022 Creatinine [Mass/Vol] 0.90 mg/dL 0.70-1.30 [facility] Comment on above: The validity of the calculated GFR & GFRAA in patients over 70 years has not been determined. Clinical correlation is essential. Serum or plasma urea nitroge n measurement (mass/volume)Ordered By: Dr. Kwok on 12-13-2022 Urea nitrogen [Mass/Vol] 8 mg/dL 7-18 [facility] Serum rheumatoid factor dete ctionOrdered By: Dr. Kwok on 12-13-2022 Rheumatoid factor Ql (S) < 10.0 IU/mL <15 [facility] Thin prep Papanicolaou smear with manual screeningOrdered By: Dr. Kwok on 12-13-2022 Thin prep Papanicolaou smear with manual screening 16 U/L 15-37 [facility] Thin prep Papanicolaou smear with manual screening 8 5-15 [facility] Thin prep Papanicolaou smear with manual screening Positive . 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 This procedure rulesout the B*27:06 and 27:09 alleles, which the literaturesuggests are not associated with spondyloarthropathies.B27 allele interpretation for all loci based on IMGT/HLAdatabase version 3.44This test was developed and its performance characteristicsdetermined by [employer]. It has not been cleared or approvedby the Food and Drug Administration.[facility] CLIA ID Number [id number] test was performed using PCR (Polymerase ChainReaction)/SSOP (Sequence Specific Oligonucleotide Probes)technique. SBT (Sequence Based Typing) and/or SSP(Sequence Specific Primers) may be used as supplementalmethods when necessary. Please contact [facility] CustomerService at if you have any questions. Director of [facility] Dr Osito Diane, PhD ICD REMOTE CHECKon 3 AV Delay Adaptive Paced Minimum (ms) 250 ms [facility] AV Delay Adaptive Sensed Minimum (ms) 250 ms [facility] AV Delay Paced (ms) 220 ms [facility] AV Delay Sensed (ms) 220 ms [facility] David RA Pacing Amplitude (volts) 2 V [facility] David RA Pacing Polarity BI [facility] David RA Pacing Pulse Width (ms) 0.5 ms [facility] David RA Sensing Amplitude (mvolts) 0.25 mV [facility] David RA Sensing Polarity BI [facility] David RV Pacing Amplitude (volts) 2.4 V [facility] David RV Pacing Polarity BI [facility] David RV Pacing Pulse Width (ms) 0.5 ms [facility] David RV Sensing Amplitude (mvolts) 0.3 mV [facility] David RV Sensing Polarity BI [facility] Detection Configuration (Vent) 2 - Zone [facility] FastVT_Detection Interval 324 ms [facility] FastVT_Therapy Configuration 2 ATP(s) + 6 Shock(s) [facility] ICD FastVT DetectionStatus ENABLED [facility] ICD-AMS EPISODES 170 {beats}/min [facility] ICD-ATP Episodes (Vent) 0 [facility] ICD-ATRIALFIBRILLAT ION 21 [facility] ICD-ATRIALTACHYCARD IA 21 [facility] ICD-ATRIALTACHYCARD IA 5 [facility] ICD-ATRIALTACHYCARD IA 6 [facility] ICD-Device Mfg BSX [facility] ICD-Fast Ventricular Tachycardia 6 [facility] ICD-LEADIMPEDANCEAT RIAL 442 ohm [facility] ICD-Percent Pacing (Atrial) 1 % [facility] ICD-Percent Pacing (Vent) 0 % [facility] ICD-Shocks Aborted (Vent) 0 [facility] [id number] D 0 [facility] ICD-SHOCKSABORTED [address] [facility] ICD-SHOCKSDELIVERED VENTRICULAR 0 [facility] ICD-Ventricular Fibrillation 0 [facility] Implant Date 09/17/2018 [facility] Lead Impedance (RV) 438 ohm [facility] Lead Impedance High Voltage 53 ohm [facility] Lead1 Mfg BSX [facility] Lead2 Mfg CPM [facility] Location RV [facility] Location RA [facility] Lower Rate (bpm) 50 {beats}/min [facility] Max Sensor Rate (bpm) 130 {beats}/min [facility] MDT_PROG_TACHY_ZONE _DETECTIONS_STATUS ENABLED [facility] Model D142 INOGEN [facility] Model 0295 [employer] Relianc e 4-Site G [facility] Model 4470 Fineline II Sterox EZ [facility] Pacing Mode DDD [facility] Serial Number [id number] [facility] Serial Number [id number] [facility] Serial Number [id number] [facility] Test Charge Time 11 s [facility] Therapy Status (Vent) Enabled [facility] Thresh RA Capture Amplitude (volts) 0.7 V [facility] Thresh RA Capture Duration (ms) 0.5 ms [facility] Thresh RV Capture Amplitude (VOLTS) 1.4 V [facility] Thresh RV Capture Duration (MS) 0.5 ms [facility] Tracking Rate (bpm) 110 {beats}/min [facility] VF Zone Detection Interval 324 ms [facility] VF Zone Therapy Configuration 2 ATP(s) + 6 Shock(s) [facility] No Panel Informationon 10-30 BLANK _ [facility] ICD-ATRIALTACHYCARD IA 0 [facility] ICD-Fast Ventricular Tachycardia 0 [facility] Implant Date 03/11/2012 [facility] HEMOGLOBIN A1C (POC)on 08-22 HbA1c (Bld) [Mass fraction] 6.0 % 4.2 - 5.6 % [facility] US ABD RT UPPER QUADRANTon 0 05-29-2022 [facility] ICD REMOTE CHECKon 2 AV Delay Adaptive Paced Minimum (ms) 250 ms [facility] AV Delay Adaptive Sensed Minimum (ms) 250 ms [facility] AV Delay Paced (ms) 220 ms [facility] AV Delay Sensed (ms) 220 ms [facility] David RA Pacing Amplitude (volts) 2 V [facility] David RA Pacing Polarity BI [facility] David RA Pacing Pulse Width (ms) 0.5 ms [facility] David RA Sensing Amplitude (mvolts) 0.25 mV [facility] David RA Sensing Polarity BI [facility] Davdi RV Pacing Amplitude (volts) 2.4 V [facility] David RV Pacing Polarity BI [facility] David RV Pacing Pulse Width (ms) 0.5 ms [facility] David RV Sensing Amplitude (mvolts) 0.3 mV [facility] David RV Sensing Polarity BI [facility] Detection Configuration (Vent) 2 - Zone [facility] FastVT_Detection Interval 324 ms [facility] FastVT_Therapy Configuration 2 ATP(s) + 6 Shock(s) [facility] ICD FastVT DetectionStatus ENABLED [facility] ICD-AMS EPISODES 170 {beats}/min [facility] ICD-ATP Episodes (Vent) 0 [facility] ICD-ATRIALFIBRILLAT ION 6 [facility] ICD-ATRIALTACHYCARD IA 6 [facility] ICD-ATRIALTACHYCARD IA 4 [facility] ICD-ATRIALTACHYCARD IA 5 [facility] ICD-Device Mfg BSX [facility] ICD-Fast Ventricular Tachycardia 5 [facility] ICD-LEADIMPEDANCEAT RIAL 475 ohm [facility] ICD-Percent Pacing (Atrial) 0 % [facility] ICD-Percent Pacing (Vent) 0 % [facility] ICD-Shocks Aborted (Vent) 0 [facility] [id number] D 0 [facility] ICD-SHOCKSABORTED [address] [facility] ICD-SHOCKSDELIVERED VENTRICULAR 0 [facility] ICD-Ventricular Fibrillation 0 [facility] Implant Date 09/17/2018 [facility] Lead Impedance (RV) 436 ohm [facility] Lead Impedance High Voltage 47 ohm [facility] Lead1 Mfg BSX [facility] Lead2 Mfg CPM [facility] Location RV [facility] Location RA [facility] Lower Rate (bpm) 50 {beats}/min [facility] Max Sensor Rate (bpm) 130 {beats}/min [facility] MDT_PROG_TACHY_ZONE _DETECTIONS_STATUS ENABLED [facility] Model D142 INOGEN [facility] Model 0295 [employer] Relianc e 4-Site G [facility] Model 4470 Fineline II Sterox EZ [facility] Pacing Mode DDD [facility] Serial Number [id number] [facility] Serial Number [id number] [facility] Serial Number [id number] [facility] Test Charge Time 10.9 s [facility] Therapy Status (Vent) Enabled [facility] Thresh RA Capture Amplitude (volts) 0.7 V [facility] Thresh RA Capture Duration (ms) 0.5 ms [facility] Thresh RV Capture Amplitude (VOLTS) 1.4 V [facility] Thresh RV Capture Duration (MS) 0.5 ms [facility] Tracking Rate (bpm) 110 {beats}/min [facility] VF Zone Detection Interval 324 ms [facility] VF Zone Therapy Configuration 2 ATP(s) + 6 Shock(s) [facility] No Panel Informationon 04-28 BLANK _ [facility] ICD-ATRIALTACHYCARD IA 0 [facility] ICD-Fast Ventricular Tachycardia 0 [facility] Implant Date 03/11/2012 [facility] ICD CLINIC CHECKon 2 AV Delay Adaptive Paced Minimum (ms) 250 ms [facility] AV Delay Adaptive Sensed Minimum (ms) 250 ms [facility] AV Delay Paced (ms) 220 ms [facility] AV Delay Sensed (ms) 220 ms [facility] David RA Pacing Amplitude (volts) 2 V [facility] David RA Pacing Polarity BI [facility] David RA Pacing Pulse Width (ms) 0.5 ms [facility] David RA Sensing Amplitude (mvolts) 0.25 mV [facility] David RA Sensing Polarity BI [facility] David RV Pacing Amplitude (volts) 2.4 V [facility] David RV Pacing Polarity BI [facility] David RV Pacing Pulse Width (ms) 0.5 ms [facility] David RV Sensing Amplitude (mvolts) 0.3 mV [facility] David RV Sensing Polarity BI [facility] Detection Configuration (Vent) 2 - Zone [facility] FastVT_Detection Interval 324 ms [facility] FastVT_Therapy Configuration 2 ATP(s) + 6 Shock(s) [facility] ICD FastVT DetectionStatus ENABLED [facility] ICD-AMS EPISODES 170 {beats}/min [facility] ICD-ATP Episodes (Vent) 0 [facility] ICD-ATRIALFIBRILLAT ION 0 [facility] ICD-Device Mfg BSX [facility] ICD-LEADIMPEDANCEAT RIAL 484 ohm [facility] ICD-Percent Pacing (Atrial) 0 % [facility] ICD-Percent Pacing (Vent) 0 % [facility] ICD-Rhythm sinus with PVCs [facility] ICD-Shocks Aborted (Vent) 0 [facility] [id number] D 0 [facility] ICD-SHOCKSABORTED [address] [facility] ICD-SHOCKSDELIVERED VENTRICULAR 0 [facility] ICD-Ventricular Fibrillation 0 [facility] Implant Date 09/17/2018 [facility] Lead Impedance (RV) 438 ohm [facility] Lead Impedance High Voltage 53 ohm [facility] Lead1 Mfg BSX [facility] Lead2 Mfg CPM [facility] Location RV [facility] Location RA [facility] Lower Rate (bpm) 50 {beats}/min [facility] Max Sensor Rate (bpm) 130 {beats}/min [facility] MDT_PROG_TACHY_ZONE _DETECTIONS_STATUS ENABLED [facility] Model D142 INOGEN [facility] Model 0295 [employer] Relianc e 4-Site G [facility] Model 4470 Fineline II Sterox EZ [facility] Pacemaker Dependent? NO [facility] Pacing Mode DDD [facility] Serial Number [id number] [facility] Serial Number [id number] [facility] Serial Number [id number] [facility] Test Charge Time 10.8 s [facility] Therapy Status (Vent) Enabled [facility] Thresh RA Capture Amplitude (volts) 0.7 V [facility] Thresh RA Capture Duration (ms) 0.5 ms [facility] Thresh RA Sensing Amplitude (mvolts) 3 mV [facility] Thresh RV Capture Amplitude (VOLTS) 1.4 V [facility] Thresh RV Capture Duration (MS) 0.5 ms [facility] Thresh RV Sensing Amplitude (MVOLTS) 4.5 mV [facility] Tracking Rate (bpm) 110 {beats}/min [facility] VF Zone Detection Interval 324 ms [facility] VF Zone Therapy Configuration 2 ATP(s) + 6 Shock(s) [facility] No Panel Informationon 01-27 BLANK _ [facility] ICD-Fast Ventricular Tachycardia 0 [facility] Implant Date 03/11/2012 [facility] XR Chest PA and Lateralon IMPRESSION: Minimal stable atelectasis or fibrosis at both lung bases. Mild cardiomegaly Feed Blender: NANCY Transcribe Date/Time: Sep 07 2021 12:59P Dictated by : BRODY JACOB MD This examination was interpreted and the report reviewed and electronically signed by: BRODY JACOB MD on Sep 07 2021 1:00PM [facility] DIVISION OF RADIOLOGY * * *Final Report* * * DATE OF EXAM: Sep 07 2021 12:54PM WOX [id number] - XR CHEST 2V FRONTAL/LAT / PROCEDURE REASON: Interscapular pain * * * * Physician Interpretation * * * * EXAMINATION: CHEST RADIOGRAPH (2 VIEW FRONTAL & LATERAL) CLINICAL HISTORY: Interscapular pain MQ: XC2_6 EXAM DATE/TIME: 09/07/2021 12:54 PM COMPARISON: 09/16/2018 RESULT: Lines, tubes, and devices: Left cardiac pacer and leads is unchanged Lungs and pleura: No consolidation. No lung mass. No pleural effusion. No pneumothorax. Minimal atelectasis or fibrosis at both lung bases Cardiomediastinal silhouette: Stable enlarged cardiomediastinal silhouette. Bones and soft tissues: Unremarkable. Moderate degenerative change and osteophytosis throughout the spine DIVISION [facility]OLOGY [facility] * * *Final Report* * * DATE OF EXAM: Sep 07 2021 12:54PM WOX [id number] - XR CHEST 2V FRONTAL/LAT / PROCEDURE REASON: Interscapular pain * * * * Physician Interpretation * * * * EXAMINATION: CHEST RADIOGRAPH (2 VIEW FRONTAL & LATERAL) CLINICAL HISTORY: Interscapular pain MQ: XC2_6 EXAM DATE/TIME: 09/07/2021 12:54 PM COMPARISON: 09/16/2018 RESULT: Lines, tubes, and devices: Left cardiac pacer and leads is unchanged Lungs and pleura: No consolidation. No lung mass. No pleural effusion. No pneumothorax. Minimal atelectasis or fibrosis at both lung bases Cardiomediastinal silhouette: Stable enlarged cardiomediastinal silhouette. Bones and soft tissues: Unremarkable. Moderate degenerative change and osteophytosis throughout the spine IMPRESSION IMPRESSION: Minimal stable atelectasis or fibrosis at both lung bases. Mild cardiomegaly Feed Blender: NANCY Transcribe Date/Time: Sep 07 2021 12:59P Dictated by : BRODY JACOB MD This examination was interpreted and the report reviewed and electronically signed by: BRODY JACOB MD on Sep 07 2021 1:00PM EST [facility] Radiology Study observation (narrative) [facility] XR Chest PA and LateralOrder ed By: [facility] Provider on 09-07-2021 [facility] ANES Floridalma 07-15-2018 ANES POST HNO ID: [id number] thor: Lino Coy: AnesthesiologyAuthor Type: AnesthesiologistType: Anesthesia PostOpFiled: 07/15/2018 1:06 PMNote Text:POST ANESTHESIA EVALUATION NOTESERVICE DATE: 07/15/2018SERVICE TIME: 1215DOB: 1950Vitals: 07/15/1811Temp: 36.3 ?C (97.3 ?F) 36.5 ?C (97.7 ?F) 07/15/1811BP: 141/79 143/85 143/77 07/15/1811Pulse: 70 74 72 07/15/1811Resp: 16 22 16 07/15/1811SpO2: 97% 100% 100%Validated Vital Signs: YesPOST ANES STATUS: No apparent anesthetic complications. The patient isappropriately hydrated with stable respiratory and cardiovascular status.Patient has safe and adequate airway control. The patient has appropriatepain relief and no significant post operative nausea or vomiting. Thepatient has achieved baseline mental status.Intra-Operative Events: No Significant Anesthesia EventsFurther assessment by Anesthesia Service: NoneOther Remarks:SIGNATURE: Lino Madrigal MD PATIENT NAME: Yazan LalaATE: July 15, 2018 : 1:06 PM PAGER/CONTACT #: [phone] [facility] ANES PREOPon 07-15-2018 ANES PREOP HNO ID: [id number] thor: Lino Coy: AnesthesiologyAuthor Type: AnesthesiologistType: Anesthesia PreOpFiled: 07/15/2018 11:12 AMNote Text: ANESTHESIOLOGY DAY OF SURGERY NOTESERVICE DATE: 07/15/2018SERVICE TIME: 10:46 AMDOB: 1950Procedure(s) (LRB):EGD (N/A)Surgeon(s):Luana Danielson ClineEstimated body mass index is 36.74 kg/m? as calculated from the following: Height as of 06/27/18: 176.5 cm (5' 9.5). Weight as of this encounter: 114.5 kg (252 lb 6.8 oz).Most recent hematocrit and potassium results:Hematocrit 39.2 03/22/2018Potassium 4.1 03/22/2018CMP:Glucose 112 03/22/2018BUN 11 03/22/2018Creatinine 1.17 03/22/2018Sodium 138 03/22/2018Potassium 4.1 03/22/2018Chloride 97 03/22/2018CO2 27 03/22/2018Protein, Total 6.1 03/22/2018Albumin 4.1 03/22/2018Calcium 9.3 03/22/2018Alkaline Phosphatase 107 03/22/2018Bilirubin, Total 0.3 03/22/2018AST 54 03/22/2018ALT 46 03/22/2018Hemoglobin (g/dL)Date Value03/22/2018 12.8 Hematocrit (%)Date Value03/22/2018 39.2 WBC (k/uL)Date Value03/22/2018 5.40 Platelet Count (k/uL)Date Value03/22/2018 144 DUAL LEAD ICD EVALUATIONUNDERLYING RHYTHM: SRBATTERY STATUS: Normal and shows no significant depletion.COUNTERS SINCE 05/21/17TRIAL ARRHYTHMIAS: AF burden <1%. On coumadin. 1 AF episode lasting1-24 hours. 11 from 1 minute to < 1 hour. Episodes classified as NSVTand VT in the VT -1 zone egrams show SVT. Longest was 5 minutes. VENTRICULAR ARRHYTHMIAS: There have been no ventricular detections sincethe last evaluation.LEAD MEASUREMENTS: Capture and sensing are appropriate. The pacing outputsmaintain safety margin. Review of the lead impedance trends are normal.IMPLANT SITE/ SYMPTOMS: The incision and pocket are pain-free (0/10), wellhealed and without signs of erosion or infection. No arm swelling,syncope, pre-syncope or device related pocket stimulation.OTHER DIAGNOSTICS: V pacing <1%.PROGRAMMING CHANGES MADE TODAY: No changes made todayANES DOS/PREOP NOTE:Vitals: BP: 141/79Pulse: 70Resp: 16Temp: 36.3 ?C (97.3 ?F)TempSrc: Temporal ArterySpO2: 97%Weight: 114.5 kg (252 lb 6.8 oz)ACTIVE PROBLEM LISTPersonal History of Colonic PolypsEsophageal RefluxOther Chronic Nonalcoholic Liver DiseaseMorbid obesity (HCC)Benign Neoplasm of Skin of Upper Limb, Including ShoulderPure HyperglyceridemiaADENOMA ADRENAL GLANDDiarrheaEnthesopathy of Unspecified SiteTendonitisDepressionDor liv Wrist GanglionHyperlipidemiaSumma ryOsa On CpapCad (Coronary Artery Disease), [place] Coronary ArteryDual Implantable Cardioverter-Defibrillator in SituChoroidal malignant melanoma - Left EyeBenign neoplasm of choroid - Left EyeChoroidal nevus - Left EyeSteatohepatitis, Non-AlcoholicHypokalemiaMal ignant melanoma of choroid (HCC) - Left EyeDm (Diabetes Mellitus), Type 2 With Neurological Complications (Hcc)Diabetes Mellitus Type 2, Controlled, Without Complications (Hcc)Age-Related Macular Degeneration, Dry, Left EyeMalignant Melanoma of Choroid of Left Eye (Hcc)Coronary Artery Disease Involving [place] Coronary Artery of [place] HeartWithout Angina PectorisChoroid Melanoma of Left Eye (Hcc)Essential HypertensionSvt (Supraventricular Tachycardia) (Hcc)Snf Current Use of AnticoagulantParoxysmal Atrial Fibrillation (Hcc)Nuclear Senile Cataract of Both EyesPAST MEDICAL HISTORYDiagnosis Date- 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- Diabetes mellitus (HCC)- Diarrhea- Dyslipidemia- Esophageal reflux- Mononeuritis of unspecified site- Obesity, unspecified- Other chronic nonalcoholic liver disease- Personal history of colonic polyps 03/20/2005 hyperplastic polyps- Tobacco use disorder- Unspecified essential hypertensionPAST SURGICAL HISTORYProcedure Laterality Date- COLONOSCOP W/ OR W/O [facility] SPEC 03/20/2005 Colonoscopy- COLONOSCOP W/ OR W/O [facility] SPEC 06/15/15 Colonoscopy [facility] out pt- EGD W/O OR W/BRUSH/WASH 06/15/15 EGD [facility] out pt- PACEMAKER SURGERY 03-11-2012 pacer/defib- PAST SURGICAL HISTORY OF 09/16/2012 eye surgery, s/p Plaque OS- PILONIDAL CYST/SINUS EXCISION 01/19/2003 Excision pilonidal cyst- REPAIR UMBILICAL LALA,<5Y/O,REDUC 02/17/1999 Hernia repair, umbilicalFAMILY HISTORYProblem Relation Age of Onset- Heart Mother of CHF at 91- Stroke Mother- Hypertension Mother- other (Other) Father at 87 of a brain aneurysm- None Brother- Hypertension Brother- No Ocular Disease OtherSocial History:Social HistorySubstance Use Topics- Smoking status: Former Smoker Packs/day: 1.00 Years: 40.00 Types: Cigarettes Quit date: 03/26/2009- Smokeless tobacco: Never Used- Alcohol use No Comment: recoveringNo current facility-administered medications on file prior to encounter.Current Outpatient Prescriptions on File Prior to Encounter:metoprolol tartrate, short acting, (LOPRESSOR) 100 mg tablet Take 1 tabletby mouth twice daily.amLODIPine (NORVASC) 5 mg tablet Take 1 tablet by mouth once daily.calcium Carbonate 300 mg, 750mg, (TUMS) 300 mg (750 mg) chewable tabletTake 1 tablet by mouth once daily. Takes as needed for indigestionVICTOZA 2-CARLITOS 0.6 mg/0.1 mL (18 mg/3 mL) pnij INJECT 1.8 [address]ANEOUSLYONCE DAILYpantoprazole DR (PROTONIX) 40 mg tablet Take 1 tablet by mouth once daily.DULoxetine (CYMBALTA) 60 mg capsule Take 1 capsule by mouth once daily.allopurinol (ZYLOPRIM) 100 mg tablet Take 2 tablets by mouth once daily.potassium chloride (KLOR-CON 10) 10 mEq tablet Take 1 tablet by mouthdaily with breakfast.gabapentin (NEURONTIN) 300 mg capsule Take 1 capsule by mouth daily atbedtime for 180 days. For foot paininsulin glargine (LANTUS SOLOSTAR U-100 INSULIN) 100 unit/mL (3 mL) inpnInject 24 Units subcutaneously daily at bedtime.hydroCHLOROthiazide (HYDRODIURIL, ESIDRIX) 25 mg tablet Take 1 tablet bymouth once daily.magnesium oxide (MAGOX) 400 mg tablet Take 1 tablet by mouth twice daily.warfarin (COUMADIN) 5 mg tablet TAKE ONE TABLET BY MOUTH ONCE DAILYwarfarin (COUMADIN) 5 mg tablet Take 1 tablet by mouth once daily. Or asdirectedlisinopril (ZESTRIL, PRINIVIL) 40 mg tablet Take 1 tablet by mouth oncedaily.warfarin (COUMADIN) 2.5 mg tablet Take by mouth daily or as directed byyour physicianmetFORMIN (GLUCOPHAGE) 500 mg tablet Take 2 tablets by mouth twice dailywith meals.tamsulosin ER (FLOMAX) 0.4 mg cp24 Take 1 capsule by mouth daily atbedtime.LILO PEN NEEDLE 32 gauge x 5/32 ndle USE TWICE DAILY WITH INSULIN DOSEBlood Sugar Diagnostic, Drum (ACCU-CHEK COMPACT TEST) strp Test bloodsugar(s) 4 times daily. Dx: DM 250 Insulin: YesLancets (ACCU-CHEK SOFTCLIX LANCETS) Misc lancets three times daily asneeded. Dx. 250.00aspirin(ECOTRIN LOW STRENGTH 81 MG TAB) Take one(1) tablet daily.MULTIVITAMIN ORAL TAB Take one(1) tablet daily.Current Facility-Administered Medications:lactated ringers infusion 5-30 mL/hr INTRAVENOUS Pre-Op Once Edward Daleergies: ALLERGIESNo Known AllergiesDOS EXAM: Adequate NPO status: YesAnesthetic risks, benefits, alternatives, personnel and consent discussed:YesPatient agrees to proceed: YesPrevious Anesthesia: No history of adverse event.Airway Assessment: MP 3; Neck ROM: Full ROM without neurologic symptoms;Airway Evaluation: No significant abnormalitiesSymptoms of Sleep Apnea: pt has sleep apneaDentition: EdentulousAdditional Physical Exam:Lungs: Patient health status unchanged since recent history and physical.See history and physical for exam findings.Cardiac: Patient health status unchanged since recent history andphysical. See history and physical for exam findings.Additional Pertinent Findings: N/ABlood Products: Not anticipated for this procedure.Anesthetic Plan: MAC with SedationPain Management Plan: Parenteral or OralASA Class: 3Other Medical Problems: NoneChronic Beta Tuan medication administered within 24 hours: Etienne have interviewed and examined the patient. I have reviewed the medicalrecord and/or the pre-anesthesia evaluation, pertinent labs, and testresults. Glu 123 this amSignificant changes in the patient's condition since the History andPhysical, not otherwise documented in primary service progress notes: NoThis contains updated information obtained within 48 hours ofSurgery/Procedure.SIGNATU RE: Lino Madrigal MD PATIENT NAME: Yazan GordonsDATE: July 15, 2018 : 10:46 AM CSN: [id number] Normal [facility] APTTon 07-15-2018 aPTT Coag time (Bld) 23.3 s Normal 23.0-32.4 [facility] Comment on above: Result Comment: Unfr actionated Heparin Therapeutic Ranges:Standard Heparin Nomogram: 53 to 78 seconds (anti-Xa level of 0.3 to 0.7 U/ml)Low Dose/ACS Nomogram: 49 to 67 seconds (anti-Xa level of 0.2 to 0.5 U/ml)Stroke Treatment Nomogram: 49 to 67 seconds (anti-Xa level of 0.2 to 0.5 U/ml)Note: The APTT therapeutic range has been determined for the current lot of laboratory APTT reagent in use throughout the [facility]. HISTORY PHYSICALon 8 HISTORY PHYSICAL HNO ID: [id number] thor: Quinn HighService: GastroenterologyAuthor Type: Physician AssistantType: HANDPFiled: 07/15/2018 11:03 AMNote Text:UPDATED HISTORY AND PHYSICAL EXAMINATIONSERVICE DATE: 07/15/2018SERVICE TIME: 10:43 AMSERVICE: Gastroenterology Service of Dr. MatthewePHYSICAL EXAM MUST BE COMPLETED ON ADMISSIONThe History and Physical (completed in the past 30 days) has been reviewedand the patient has been examined. The contents accurately reflect thepatient's condition with the following additions or revisions since theHANDP was completed.Patient denies any changes to health since last examination. Plannedprocedure for today is EGDMedication reconciliation list reviewed in [facility].Past medical history, past surgical history, social history and familyhistory reviewed and updated in [facility].ALLERGIESNo Known AllergiesBP 141/79 Pulse 70 Temp 36.3 ?C (97.3 ?F) (Temporal Artery) Resp16 Wt 114.5 kg (252 lb 6.8 oz) SpO2 97% BMI 36.74 kg/m?Examination indicates no changes.On examination today:Lungs: Clear to auscultation bilaterally.Heart: RRR, Normal S1/S2, No murmurs, rubs, gallops or thrillsappreciated.Abdomen: Obese, BS+ in all quadrants, abdomen is soft, non tender, andwithout guarding.Assessment: Gastroparesis, GERDPlan: EGDThis HANDP can be found in the Electronic Medical Record dated 06/27/2015Dr. Villa.SIGNATURE: Quinn High II, PA-C PATIENT NAME: Yazan GordonsDATE: July 15, 2018 : 10:43 AM [facility] PT EDon 07-15-2018 PT ED HNO ID: [id number] thor: Belkis (Rn) Fidelia, KADEEMervice: NursingAuthor Type: Registered NurseType: Patient EducationFiled: 07/15/2018 11:08 AMNote Text:PATIENT EDUCATION TOPIC: PROCEDURE / SURGERY: Procedure/Surgery: EGDPre-op Teaching: Logistics ProtocolsComplication PreventionSurgical Safety PrinciplesPATIENT NAME: Yazan GordonsMRN: [id number] [facility]READINESS TO LEARNCOGNITIVE ABILITY: Alert and orientedMOTIVATION TO LEARN: EagerFAMILY SUPPORT: High - Very involved in pt careINSTRUCTION PROVIDED TO: Patient and SpousePATIENT LEARNS BEST BY: Individual InstructionVerbal InstructionFACTORS AFFECTING LEARNING: NonePHYSICAL LIMITATIONS AFFECTING LEARNING: Fatigue and Sensory DeficitSight: Corrective lensesLEARNING RESPONSEDIAGNOSIS: ADULT: GERDS; ABD TENDERNESSPATIENT/FAMILY RESPONSE: Verbalizes understanding of: PAINMANAGEMENT-Effective strategies to manage pain in addition to painmedicationPRE-OPERATIVE INSTRUCTIONS-Correct action to take to follow pre-operativeinstructionsPA TIENT SAFETY PRINCIPLESMETHOD OF INSTRUCTION: Individual instructionVerbal instructionFOLLOW-UP PLAN: Follow up phone call.INSTRUCTIONAL AIDS USED: NASUPPLEMENTAL MATERIAL PROVIDED TO PATIENT: NoneREFERRAL (RECOMMENDATION): NoneElectronically Signed By: Belkis Mistry RN Normal [facility] Protimeon 07-15-2018 INR Coag RelTime (Bld) 1.0 {INR} Normal 0.9-1.3 [facility] Comment on above: Result Comment: Mleissa min K Antagonist (VKA) Therapeutic Range: INR 2 to 3 (Target INR of 2.5)Note: For patients treated with VKA drugs, such as warfarin, the [employer] 2012 Guideline recommends a therapeutic INR range of 2 to 3 (target INR of 2.5). This recommendation includes high-risk patients with antiphospholipid syndrome with previous arterial or venous thromboembolism, current-generation mechanical or bioprosthetic aortic heart valve replacement.Note: Patients with mechanical aortic valve replacement and additional risk factors for thromboembolic events (atrial fibrillation, previous thromboembolism, LV dysfunction, hypercoagulable conditions) or an older generation mechanical AVR (i.e., ball in-Cage) or any mechanical MVR should have a INR therapeutic range of 2.5 to 3.5 (target INR of 3).Keatonyatt GH, et al. Chest 2012, 141:7S-47SNishimura RA, et al. JACC 2017, 70: 252-289 PT Sec 11.2 sec Normal 9.7-13.0 [facility] HOSPon 07-12-2018 HOSP Patient:Madelyn Nolasco CMRN: Height:5' 9.5(1.765 m)Weight:252 lb 6.8 oz (114.5 kg)Outpatient Medications as of 07/15/18:metoprolol tartrate, short acting, (LOPRESSOR) 100 mg tabletamLODIPine (NORVASC) 5 mg tabletcalcium Carbonate 300 mg, 750mg, (TUMS) 300 mg (750 mg) chewable tabletVICTOZA 2-CARLITOS 0.6 mg/0.1 mL (18 mg/3 mL) pnijpantoprazole DR (PROTONIX) 40 mg tabletDULoxetine (CYMBALTA) 60 mg capsuleallopurinol (ZYLOPRIM) 100 mg tabletpotassium chloride (KLOR-CON 10) 10 mEq tabletgabapentin (NEURONTIN) 300 mg capsuleinsulin glargine (LANTUS SOLOSTAR U-100 INSULIN) 100 unit/mL (3 mL) inpnhydroCHLOROthiazide (HYDRODIURIL, ESIDRIX) 25 mg tabletmagnesium oxide (MAGOX) 400 mg tabletwarfarin (COUMADIN) 5 mg tabletlisinopril (ZESTRIL, PRINIVIL) 40 mg tabletmetFORMIN (GLUCOPHAGE) 500 mg tablettamsulosin ER (FLOMAX) 0.4 mg yv72VBCT PEN NEEDLE 32 gauge x ndleBlood Sugar Diagnostic, Drum (ACCU-CHEK COMPACT TEST) strpLancets (ACCU-CHEK SOFTCLIX LANCETS) Misc lancetsaspirin(ECOTRIN LOW STRENGTH 81 MG TAB)MULTIVITAMIN ORAL TABAdmission/Clinic Administered Medications as of 07/15/18:lactated ringers infusionProblem List:Personal history of colonic polyps [Z86.010]Esophageal reflux [K21.9]Other chronic nonalcoholic liver disease [K76.89]Morbid obesity (HCC) [E66.01]Benign neoplasm of skin of upper limb, including shoulder [D23.60]Pure hyperglyceridemia [E78.1]ADENOMA ADRENAL GLAND [D35.00]Diarrhea [R19.7]Enthesopathy of unspecified site [M77.9]Tendonitis [M77.9]Depression [F32.9]Dorsal wrist ganglion [M67.439]Hyperlipidemia [E78.5]SUMMARY [V999.95][place] on CPAP [G47.33, Z99.89]CAD (coronary artery disease), [place] coronary artery [I25.10]Dual implantable cardioverter-defibrillator in situ [Z95.810]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]Benign neoplasm of choroid - Left Eye [D31.30]Choroidal nevus - Left Eye [D31.30]Steatohepatitis, non-alcoholic [K75.81]Hypokalemia [E87.6]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.30]DM (diabetes mellitus), type 2 with neurological complications (HCC) [E11.49]Diabetes mellitus type 2, controlled, without complications (HCC) [E11.9]Age-related macular degeneration, dry, left eye [H35.3120]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) [C69.32]Coronary artery disease involving [place] coronary artery of [place] heartwithout angina pectoris [I25.10]Choroid melanoma of left eye (HCC) [C69.32]Essential hypertension [I10]SVT (supraventricular tachycardia) (HCC) [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 MattheweOriginal HANDP Date: N/AED visit Date: N/AOutside HANDP Scanned Date: N/ALabs Within Last 6 Months:N/AImaging Within Last 12 Months:N/ACardiac Testing:N/ALast Menstrual Period:LMP Date: N/APostmenopausal >1yr: N/A,S/P Hysterectomy: N/ABMI Percentile (PEDS):N/ARisk Assessment:See [facility] the following:Candida Robertson RN *? 06/27/18 5:14 PMNoteCalled pt, verified the only reason he takes warfarin is for a-fib. Patientnotified of provider's instructions. Patient verbalizes understanding.Candida Robertson RN??? 06/27/18 5:01 Shirley Milan routed this conversation to [facility] Cardiology Joe Milan? 06/27/18 5:00 PMNotePlease confirm that the only indication for warfarin is his atrial fibrillation.If so, and given lack of symptoms, I have no objection to holding medication asrequested. Risk would be low.Cory Milan MD?Anesthesia Review:N/ANarrative:Chart reviewed by Jennifer Broderick in scheduling who stated PACC is not requiredhad HANDP done 06/27/18 and received instructions regarding Coumadin in telephoneencounters. (See that telephone encounter above*)Pre-op Considerations:DMICDOn warfarin was given OK to hold for procedure by Dr. Milan.07/12/18 I called patient today to confirm he stopped coumadin he said his lastdose of Coumadin was 07/09/18.Chart Check:Laila Walls, JESSICANovember 2017 2:10 PMPrevious VersionQuinn High II, PA-C 07/15/2018 11:03 AM SignedUPDATED HISTORY AND PHYSICAL EXAMINATIONSERVICE DATE: 07/15/2018SERVICE TIME: 10:43 AMSERVICE: Gastroenterology Service of Dr. BenlteyHYSICAL EXAM MUST BE COMPLETED ON ADMISSIONThe History and Physical (completed in the past 30 days) has been reviewed andthe patient has been examined. The contents accurately reflect the patient'scondition with the following additions or revisions since the HANDP was completed.Patient denies any changes to health since last examination. Planned procedurefor today is EGDMedication reconciliation list reviewed in [facility].Past medical history, past surgical history, social history and family historyreviewed and updated in [facility].ALLERGIESNo Known AllergiesBP 141/79 Pulse 70 Temp 36.3 ?C (97.3 ?F) (Temporal Artery) Resp 16 Wt 114.5 kg (252 lb 6.8 oz) SpO2 97% BMI 36.74 kg/m?Examination indicates no changes.On examination today:Lungs: Clear to auscultation bilaterally.Heart: RRR, Normal S1/S2, No murmurs, rubs, gallops or thrills appreciated.Abdomen: Obese, BS+ in all quadrants, abdomen is soft, non tender, and withoutguarding.Assessment: Gastroparesis, GERDPlan: EGDThis HANDP can be found in the Electronic Medical Record dated 06/27/2015 .SIGNATURE: Quinn High II, PA-C PATIENT NAME: Yazan LalaATE: July 15, 2018 : 10:43 AMLino Madrigal MD 07/15/2018 11:12 AM Signed ANESTHESIOLOGY DAY OF SURGERY NOTESERVICE DATE: 07/15/2018SERVICE TIME: 10:46 AMDOB: 1950Procedure(s) (LRB):EGD (N/A)Surgeon(s):Luana Danielson ClineEstimated body mass index is 36.74 kg/m? as calculated from the following: Height as of 06/27/18: 176.5 cm (5' 9.5). Weight as of this encounter: 114.5 kg (252 lb 6.8 oz).Most recent hematocrit and potassium results:Hematocrit 39.2 03/22/2018Potassium 4.1 03/22/2018CMP:Glucose 112 03/22/2018BUN 11 03/22/2018Creatinine 1.17 03/22/2018Sodium 138 03/22/2018Potassium 4.1 03/22/2018Chloride 97 03/22/2018CO2 27 03/22/2018Protein, Total 6.1 03/22/2018Albumin 4.1 03/22/2018Calcium 9.3 03/22/2018Alkaline Phosphatase 107 03/22/2018Bilirubin, Total 0.3 03/22/2018AST 54 03/22/2018ALT 46 03/22/2018Hemoglobin (g/dL)Date Value03/22/2018 12.8 Hematocrit (%)Date Value03/22/2018 39.2 WBC (k/uL)Date Value03/22/2018 5.40 Platelet Count (k/uL)Date Value03/22/2018 144 DUAL LEAD ICD EVALUATIONUNDERLYING RHYTHM: SRBATTERY STATUS: Normal and shows no significant depletion.COUNTERS SINCE 05/21/17TRIAL ARRHYTHMIAS: AF burden <1%. On coumadin. 1 AF episode lasting 1-24hours. 11 from 1 minute to < 1 hour. Episodes classified as NSVT and VT in theVT -1 zone egrams show SVT. Longest was 5 minutes. VENTRICULAR ARRHYTHMIAS: There have been no ventricular detections since thelast evaluation.LEAD MEASUREMENTS: Capture and sensing are appropriate. The pacing outputsmaintain safety margin. Review of the lead impedance trends are normal.IMPLANT SITE/ SYMPTOMS: The incision and pocket are pain-free (0/10), wellhealed and without signs of erosion or infection. No arm swelling, syncope,pre-syncope or device related pocket stimulation.OTHER DIAGNOSTICS: V pacing <1%.PROGRAMMING CHANGES MADE TODAY: No changes made todayANES DOS/PREOP NOTE:Vitals: BP: 141/79Pulse: 70Resp: 16Temp: 36.3 ?C (97.3 ?F)TempSrc: Temporal ArterySpO2: 97%Weight: 114.5 kg (252 lb 6.8 oz)ACTIVE PROBLEM LISTPersonal History of Colonic PolypsEsophageal RefluxOther Chronic Nonalcoholic Liver DiseaseMorbid obesity (HCC)Benign Neoplasm of Skin of Upper Limb, Including ShoulderPure HyperglyceridemiaADENOMA ADRENAL GLANDDiarrheaEnthesopathy of Unspecified SiteTendonitisDepressionDor liv Wrist GanglionHyperlipidemiaSumma ryOsa On CpapCad (Coronary Artery Disease), [place] Coronary ArteryDual Implantable Cardioverter-Defibrillator in SituChoroidal malignant melanoma - Left EyeBenign neoplasm of choroid - Left EyeChoroidal nevus - Left EyeSteatohepatitis, Non-AlcoholicHypokalemiaMal ignant melanoma of choroid (HCC) - Left EyeDm (Diabetes Mellitus), Type 2 With Neurological Complications (Hcc)Diabetes Mellitus Type 2, Controlled, Without Complications (Hcc)Age-Related Macular Degeneration, Dry, Left EyeMalignant Melanoma of Choroid of Left Eye (Hcc)Coronary Artery Disease Involving [place] Coronary Artery of [place] Heart WithoutAngina PectorisChoroid Melanoma of Left Eye (Hcc)Essential HypertensionSvt (Supraventricular Tachycardia) (Hcc)Snf Current Use of AnticoagulantParoxysmal Atrial Fibrillation (Hcc)Nuclear Senile Cataract of Both EyesPAST MEDICAL HISTORYDiagnosis Date- 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- Diabetes mellitus (HCC)- Diarrhea- Dyslipidemia- Esophageal reflux- Mononeuritis of unspecified site- Obesity, unspecified- Other chronic nonalcoholic liver disease- Personal history of colonic polyps 03/20/2005 hyperplastic polyps- Tobacco use disorder- Unspecified essential hypertensionPAST SURGICAL HISTORYProcedure Laterality Date- COLONOSCOP W/ OR W/O [facility] SPEC 03/20/2005 Colonoscopy- COLONOSCOP W/ OR W/O [facility] SPEC 06/15/15 Colonoscopy [facility] out pt- EGD W/O OR W/BRUSH/WASH 06/15/15 EGD [facility] out pt- PACEMAKER SURGERY 03-11-2012 pacer/defib- PAST SURGICAL HISTORY OF 09/16/2012 eye surgery, s/p Plaque OS- PILONIDAL CYST/SINUS EXCISION 01/19/2003 Excision pilonidal cyst- REPAIR UMBILICAL LALA,<5Y/O,REDUC 02/17/1999 Hernia repair, umbilicalFAMILY HISTORYProblem Relation Age of Onset- Heart Mother of CHF at 91- Stroke Mother- Hypertension Mother- other (Other) Father at 87 of a brain aneurysm- None Brother- Hypertension Brother- No Ocular Disease OtherSocial History:Social HistorySubstance Use Topics- Smoking status: Former Smoker Packs/day: 1.00 Years: 40.00 Types: Cigarettes Quit date: 03/26/2009- Smokeless tobacco: Never Used- Alcohol use No Comment: recoveringNo current facility-administered medications on file prior to encounter.Current Outpatient Prescriptions on File Prior to Encounter:metoprolol tartrate, short acting, (LOPRESSOR) 100 mg tablet Take 1 tablet bymouth twice daily.amLODIPine (NORVASC) 5 mg tablet Take 1 tablet by mouth once daily.calcium Carbonate 300 mg, 750mg, (TUMS) 300 mg (750 mg) chewable tablet Take 1tablet by mouth once daily. Takes as needed for indigestionVICTOZA 2-CARLITOS 0.6 mg/0.1 mL (18 mg/3 mL) pnij INJECT 1.[address]OUSLY ONCEDAILYpantoprazole DR (PROTONIX) 40 mg tablet Take 1 tablet by mouth once daily.DULoxetine (CYMBALTA) 60 mg capsule Take 1 capsule by mouth once daily.allopurinol (ZYLOPRIM) 100 mg tablet Take 2 tablets by mouth once daily.potassium chloride (KLOR-CON 10) 10 mEq tablet Take 1 tablet by mouth daily withbreakfast.gabapentin (NEURONTIN) 300 mg capsule Take 1 capsule by mouth daily at bedtimefor 180 days. For foot paininsulin glargine (LANTUS SOLOSTAR U-100 INSULIN) 100 unit/mL (3 mL) inpn Pdwwms58 Units subcutaneously daily at bedtime.hydroCHLOROthiazide (HYDRODIURIL, ESIDRIX) 25 mg tablet Take 1 tablet by mouthonce daily.magnesium oxide (MAGOX) 400 mg tablet Take 1 tablet by mouth twice daily.warfarin (COUMADIN) 5 mg tablet TAKE ONE TABLET BY MOUTH ONCE DAILYwarfarin (COUMADIN) 5 mg tablet Take 1 tablet by mouth once daily. Or asdirectedlisinopril (ZESTRIL, PRINIVIL) 40 mg tablet Take 1 tablet by mouth once daily.warfarin (COUMADIN) 2.5 mg tablet Take by mouth daily or as directed by yourphysicianmetFORMIN (GLUCOPHAGE) 500 mg tablet Take 2 tablets by mouth twice daily withmeals.tamsulosin ER (FLOMAX) 0.4 mg cp24 Take 1 capsule by mouth daily at bedtime.LILO PEN NEEDLE 32 gauge x 32 ndle USE TWICE DAILY WITH INSULIN DOSEBlood Sugar Diagnostic, Drum (ACCU-CHEK COMPACT TEST) strp Test blood sugar(s) 4times daily. Dx: DM 250 Insulin: YesLancets (ACCU-CHEK SOFTCLIX LANCETS) Misc lancets three times daily as needed.Dx. 250.00aspirin(ECOTRIN LOW STRENGTH 81 MG TAB) Take one(1) tablet daily.MULTIVITAMIN ORAL TAB Take one(1) tablet daily.Current Facility-Administered Medications:lactated ringers infusion 5-30 mL/hr INTRAVENOUS Pre-Op Once Edward (Feng Wrayergies: ALLERGIESNo Known AllergiesDOS EXAM: Adequate NPO status: YesAnesthetic risks, benefits, alternatives, personnel and consent discussed: YesPatient agrees to proceed: YesPrevious Anesthesia: No history of adverse event.Airway Assessment: MP 3; Neck ROM: Full ROM without neurologic symptoms; AirwayEvaluation: No significant abnormalitiesSymptoms of Sleep Apnea: pt has sleep apneaDentition: EdentulousAdditional Physical Exam:Lungs: Patient health status unchanged since recent history and physical. Seehistory and physical for exam findings.Cardiac: Patient health status unchanged since recent history and physical. Seehistory and physical for exam findings.Additional Pertinent Findings: N/ABlood Products: Not anticipated for this procedure.Anesthetic Plan: MAC with SedationPain Management Plan: Parenteral or OralASA Class: 3Other Medical Problems: NoneChronic Beta Tuan medication administered within 24 hours: Etienne have interviewed and examined the patient. I have reviewed the medical recordand/or the pre-anesthesia evaluation, pertinent labs, and test results. Glu 123this amSignificant changes in the patient's condition since the History and Physical,not otherwise documented in primary service progress notes: NoThis contains updated information obtained within 48 hours of Surgery/Procedure.SIGNATURE : Lino Madrigal MD PATIENT NAME: Yazan GordonsDATE: July 15, 2018 : 10:46 AM CSN: [id number] Elijah Mistry RN, RN 07/15/2018 11:08 AM SignedPATIENT EDUCATION TOPIC: PROCEDURE / SURGERY: Procedure/Surgery: EGDPre-op Teaching: Logistics ProtocolsComplication PreventionSurgical Safety PrinciplesPATIENT NAME: Yazan WinslowRN: [id number] [facility]READINESS TO LEARNCOGNITIVE ABILITY: Alert and orientedMOTIVATION TO LEARN: EagerFAMILY SUPPORT: High - Very involved in pt careINSTRUCTION PROVIDED TO: Patient and SpousePATIENT LEARNS BEST BY: Individual InstructionVerbal InstructionFACTORS AFFECTING LEARNING: NonePHYSICAL LIMITATIONS AFFECTING LEARNING: Fatigue and Sensory Deficit Sight:Corrective lensesLEARNING RESPONSEDIAGNOSIS: ADULT: GERDS; ABD TENDERNESSPATIENT/FAMILY RESPONSE: Verbalizes understanding of: PAINMANAGEMENT-Effective strategies to manage pain in addition to pain medicationPRE-OPERATIVE INSTRUCTIONS-Correct action to take to follow pre-operativeinstructionsPA TIENT SAFETY PRINCIPLESMETHOD OF INSTRUCTION: Individual instructionVerbal instructionFOLLOW-UP PLAN: Follow up phone call.INSTRUCTIONAL AIDS USED: NASUPPLEMENTAL MATERIAL PROVIDED TO PATIENT: NoneREFERRAL (RECOMMENDATION): NoneElectronically Signed By: BRY Coburnrogzohra Notes (CARD ADMIN [facility]):Cory Milan MD 07/08/2018 4:52 PM SignedSame dose. One week.Da Magallanes MA 07/08/2018 4:56 PM SignedPatient notified of results and provider's instructions. Patient verbalizesunderstanding.Rupinder Nieves MA [facility] NURSING PROGon 07-12-2018 Protein mass conc HNO ID: [id number] thor: Aminah (Rn) KADEEM Wallservice: (none)Author Type: Registered NurseType: Nursing Progress NoteFiled: 07/12/2018 3:18 PMNote Text:PACC Nurse Progress NoteHistory AND Physical:PACC Visit Date: 06/27/18, Dr. Rausch HANDP Date: N/AED visit Date: N/AOutside HANDP Scanned Date: N/ALabs Within Last 6 Months:N/AImaging Within Last 12 Months:N/ACardiac Testing:N/ALast Menstrual Period:LMP Date: N/APostmenopausal >1yr: N/A,S/P Hysterectomy: N/ABMI Percentile (PEDS):N/ARisk Assessment:[facility] the following:Candida Robertson RN *? 06/27/18 5:14 PMNoteCalled pt, verified the only reason he takes warfarin is for a-fib.Patient notified of provider's instructions. Patient verbalizesunderstanding.Jacob Robertson RN??? 06/27/18 5:01 PMCory Milan routed this conversation to [facility] Cardiology Joe Milan? 06/27/18 5:00 PMNotePlease confirm that the only indication for warfarin is his atrialfibrillation. If so, and given lack of symptoms, I have no objection toholding medication as requested. Risk would be low.Cory Milan MD?Anesthesia Review:N/ANarrative:Chart reviewed by Jennifer Broderick in scheduling who stated PACC is notrequired had HANDP done 06/27/18 and received instructions regardingCoumadin in telephone encounters. (See that telephone encounter above*)Pre-op Considerations:DMICDOn warfarin was given OK to hold for procedure by Dr. Milan.07/12/18 I called patient today to confirm he stopped coumadin he said hislast dose of Coumadin was 07/09/18.Chart Check:Laila Walls RNNov2017 2:10 PM [facility] PROGRESSon 07-12-2018 Protein mass conc HNO ID: [id number] thor: Quinn HighService: GastroenterologyAuthor Type: Physician AssistantType: Progress NotesFiled: 07/12/2018 12:57 PMNote Text:I have reviewed the patients allergies and entered the orders as requestedby the procedural physician or per anesthesia guidelines.Scott Villavicencio II 201712:57 PM [facility] Amino Acids Quant,PLon 06-27 Alanine 693 um/L High [id number] [facility] Comment on above: Performed By: #### L D6, FT4, CK, TSH, GADCAB, AAQTPL, CARNPL ####[address] [phone]#### PARNEO #### [facility] [place], [place] [phone] Alloisoleucine 3 um/L High 0-2 [facility] Comment on above: Performed By: #### L D6, FT4, CK, TSH, GADCAB, AAQTPL, CARNPL ####[address] [phone]#### PARNEO #### [facility] [place], [place] [phone] Alpha-aminoadipic Ac 1 um/L [place] 0-6 [facility] Comment on above: Performed By: #### L D6, FT4, CK, TSH, GADCAB, AAQTPL, CARNPL ####[address] [phone]#### PARNEO #### [facility] [place], [place] [phone] Review Reviewed by Jonathan Mccallum MD, PhD ([id number]) [facility] Comment on above: Performed By: #### L D6, FT4, CK, TSH, GADCAB, AAQTPL, CARNPL ####[address] [phone]#### PARNEO #### [facility] [place], [place] [phone] Arginine 33 um/L Normal 15-128 [facility] Comment on above: Performed By: #### L D6, FT4, CK, TSH, GADCAB, AAQTPL, CARNPL ####[address] [phone]#### PARNEO #### [facility] [place], [place] [phone] Asparagine 54 um/L Normal 35-74 [facility] Comment on above: Performed By: #### L D6, FT4, CK, TSH, GADCAB, AAQTPL, CARNPL ####[address] [phone]#### PARNAVEENO #### [facility] [place], [place] [phone] Aspartic Acid 3 um/L Normal 1-25 [facility] Comment on above: Performed By: #### L D6, FT4, CK, TSH, GADCAB, AAQTPL, CARNPL ####[place] [phone]#### PARNEO #### [facility] [place], [place] [phone] Citrulline 14 um/L Normal 12-55 [facility] Comment on above: Performed By: #### L D6, FT4, CK, TSH, GADCAB, AAQTPL, CARNPL ####[place] [phone]#### PARNEO #### [facility] [place], [place] [phone] Cystine 53 um/L Normal 5-82 [facility] Comment on above: Performed By: #### L D6, FT4, CK, TSH, GADCAB, AAQTPL, CARNPL ####[place] [address], [place] [phone]#### PARNEO #### [facility] [place], [place] [phone] Glutamic Acid 66 um/L Normal 10-131 [facility] Comment on above: Performed By: #### L D6, FT4, CK, TSH, GADCAB, AAQTPL, CARNPL ####[place] [address], [place] [phone]#### PARNEO #### [facility] [place], [place] [phone] Glutamine 670 um/L Normal 205-756 [facility] Comment on above: Performed By: #### L D6, FT4, CK, TSH, GADCAB, AAQTPL, CARNPL ####[place] [address], [place] [phone]#### PARNEO #### [facility] [place], [place] [phone] Glycine 268 um/L Normal 151-490 [facility] Comment on above: Performed By: #### L D6, FT4, CK, TSH, GADCAB, AAQTPL, CARNPL ####[place] [address], [place] [phone]#### PARNEO #### [facility] [place], [place] [phone] Histidine 82 um/L Normal 72-124 [facility] Comment on above: Performed By: #### L D6, FT4, CK, TSH, GADCAB, AAQTPL, CARNPL ####[place] [address], [place] [phone]#### PARNEO #### [facility] [place], [place] [phone] Hydroxylysine 0 um/L Normal 0 [facility] Comment on above: Performed By: #### L D6, FT4, CK, TSH, GADCAB, AAQTPL, CARNPL ####[address] [phone]#### PARNEO #### [facility] [place], [place] [phone] Hydroxyproline 16 um/L Normal 0-53 [facility] Comment on above: Performed By: #### L D6, FT4, CK, TSH, GADCAB, AAQTPL, CARNPL ####[address] [phone]#### PARNEO #### [facility] [place], [place] [phone] Interpretation (NOTE) Normal [facility] Comment on above: Result Comment: THIS PLASMA AMINO ACID ANALYSIS SHOWS MODERATELY INCREASED ALANINEAND MILDLY INCREASED PROLINE.THIS RESULT IS NOT DIAGNOSTIC OF A SPECIFIC DISORDER BUT ISINDICATIVE OF A DISTURBANCE OF GLUCOSE OR PYRUVATE METABOLISM. Date of Analysis:06/28/18 Date of Review: 06/28/18 Reference intervals from Hussein Landeros, Gege MG, Mendoza VANESSA, and Aura DK: Biochemical Genetics: A Laboratory Manual, Copyright 1989 by [employer] Reference intervals not established for some amino acids. This test was developed and its performance characteristics determined by [facility] ([facility]). It has not been cleared or approved by the FDA. [facility] is regulated under CLIA as qualified to perform high-complexity testing. This test is used for clinical purposes. It should not be regarded as investigational or for research. Performed By: #### L D6, FT4, CK, TSH, GADCAB, AAQTPL, CARNPL ####[address] [phone]#### PARNEO #### [facility] [facility], [place] [phone] Isoleucine 51 um/L Normal 30-108 [facility] Comment on above: Performed By: #### L D6, FT4, CK, TSH, GADCAB, AAQTPL, CARNPL ####[address] [place], [place] [phone]#### PARNEO #### [facility] [facility], [place] [phone] Leucine 103 um/L Normal 72-201 [facility] Comment on above: Performed By: #### L D6, FT4, CK, TSH, GADCAB, AAQTPL, CARNPL ####[place] [phone]#### PARNAVEENO #### [facility] [place], [place] [phone] Lysine 155 um/L Normal 116-296 [facility] Comment on above: Performed By: #### L D6, FT4, CK, TSH, GADCAB, AAQTPL, CARNPL ####[place] [phone]#### PARNEO #### [facility] [place], [place] [phone] Methionine 18 um/L Normal 10-42 [facility] Comment on above: Performed By: #### L D6, FT4, CK, TSH, GADCAB, AAQTPL, CARNPL ####[place] [phone]#### PARNEO #### [facility] [place], [place] [phone] Ornithine 49 um/L Normal 48-195 [facility] Comment on above: Performed By: #### L D6, FT4, CK, TSH, GADCAB, AAQTPL, CARNPL ####[place] [address], [place] [phone]#### PARNEO #### [facility] [place], [place] [phone] Phenylalanine 49 um/L Normal 35-85 [facility] Comment on above: Performed By: #### L D6, FT4, CK, TSH, GADCAB, AAQTPL, CARNPL ####[place] [address], [place] [phone]#### PARNEO #### [facility] [place], [place] [phone] Proline 411 um/L High 97-329 [facility] Comment on above: Performed By: #### L D6, FT4, CK, TSH, GADCAB, AAQTPL, CARNPL ####[place] [address], [place] [phone]#### PARNEO #### [facility] [place], [place] [phone] Sarcosine 0 um/L Normal 0 [facility] Comment on above: Performed By: #### L D6, FT4, CK, TSH, GADCAB, AAQTPL, CARNPL ####[place] [address], [place] [phone]#### PARNEO #### [facility] [place], [place] [phone] Serine 98 um/L Normal 58-181 [facility] Comment on above: Performed By: #### L D6, FT4, CK, TSH, GADCAB, AAQTPL, CARNPL ####[place] [address], [place] [phone]#### PARNEO #### [facility] [facility], [place] [phone] Taurine 26 um/L Low 54-210 [facility] Comment on above: Performed By: #### L D6, FT4, CK, TSH, GADCAB, AAQTPL, CARNPL ####[address] [phone]#### PARNEO #### [facility] [facility] [place] [phone] Threonine 78 um/L Normal 60-225 [facility] Comment on above: Performed By: #### L D6, FT4, CK, TSH, GADCAB, AAQTPL, CARNPL ####[place] [phone]#### PARNAVEENO #### [facility] [place], [place] [phone] Tyrosine 47 um/L Normal 34-112 [facility] Comment on above: Performed By: #### L D6, FT4, CK, TSH, GADCAB, AAQTPL, CARNPL ####[place] [phone]#### PARNAVEENO #### [facility] [place], [place] [phone] Valine 175 um/L Normal 119-336 [facility] Comment on above: Performed By: #### L D6, FT4, CK, TSH, GADCAB, AAQTPL, CARNPL ####[place] [phone]#### PARNEO #### [facility] [place] [phone] [facility] CK enzyme act/vol 36 U/L Low 51-298 [facility] Comment on above: Performed By: #### L D6, FT4, CK, TSH, GADCAB, AAQTPL, CARNPL ####[place] [address] [place], [place] [phone]#### PARNEO #### [facility] [place], [place] [phone] Carnitine Fr/Tot, Plon 06-27 Carnitine Interp (NOTE) [facility] Comment on above: Result Comment: This assay of plasma free and total carnitine shows no significantabnormalities.NOTE: The determination of the plasma free carnitine level and of thetotal free and acylcarnitine levels is dependent on multiple factors,including the nutritional status of the subject, his/her underlyingdisorder, concurrent illnesses and, sometimes, medications that he/sheis receiving. Consequently, a normal or minimally abnormal result withthis test does not always rule-out the possibility of a disorder ofcarnitine or fatty acid metabolism. This test does not by itself provideinformation on the levels of various plasma acylcarnitine species andmeasurement of the latter is often needed for the diagnostic evaluationand follow-up of disorders of mitochondrial fatty acid beta-oxidationand some other disorders associated with pathologic levels of selectedacylcarnitine species.This test was developed and its performance characteristics determinedby the [facility] at the [facility]. The U.S. Food and Drug Administration has not approved orcleared this test, however, FDA clearance or approval is not currentlyrequired for clinical use. Performed By: #### L D6, FT4, CK, TSH, GADCAB, AAQTPL, CARNPL ####[address] [phone]#### PARNEO #### [facility] [place], [place] [phone] Carnitine Review Reviewed by Jonathan Mccallum MD, PhD ([id number]) [facility] Comment on above: Performed By: #### L D6, FT4, CK, TSH, GADCAB, AAQTPL, CARNPL ####[address] [phone]#### PARNEO #### [facility] [place], [place] [phone] Free L-Carnitine 49 umol/L Normal 22-52 [facility] Comment on above: Performed By: #### L D6, FT4, CK, TSH, GADCAB, AAQTPL, CARNPL ####[address] [phone]#### PARNEO #### [facility] [place], [place] [phone] Free/Tot Carn Ratio 0.778 Normal 0.7-0.9 [facility] Comment on above: Performed By: #### L D6, FT4, CK, TSH, GADCAB, AAQTPL, CARNPL ####[address] [phone]#### PARNEO #### [facility] [place], [place] [phone] Total L-Carnitine 63 umol/L Normal 27-66 [facility] Comment on above: Performed By: #### L D6, FT4, CK, TSH, GADCAB, AAQTPL, CARNPL ####[address] [phone]#### PARNEO #### [facility] [place], [place] [phone] Free T4on 06-27-2018 T4 free mass conc 1.1 ng/dL Normal 0.9-1.7 [facility] Comment on above: Performed By: #### L D6, FT4, CK, TSH, GADCAB, AAQTPL, CARNPL ####[address] [phone]#### PARNEO #### [facility] [place], [place] [phone] Glutamic Ac Decar Abon 06-27 Glutamic Ac Decar Ab <5.0 Normal <5.0 [facility] Comment on above: Performed By: #### L D6, FT4, CK, TSH, GADCAB, AAQTPL, CARNPL ####[place] [address] [place], [place] [phone]#### ADELINA #### [facility] [place], [place] [phone] Hemoglobin A1con 06-27-2018 Glucose mass conc 126 mg/dL Normal [facility] Comment on above: Result Comment: eAG: (Estimated average glucose) is a calculated value from HgbA1c and is manufacturers representative of the average blood glucose level in the last 2-3 month period. Performed By: #### H BA1C ####[place] [address], [place] [phone] Hemoglobin A1c/Hemoglobin.tota l mass fraction (Bld) 6.0 % High 4.3-5.6 [facility] Comment on above: Performed By: #### H BA1C ####[facility] [place], [place] [phone] LDon 06-27-2018 LD 189 U/L Normal 135-225 [facility] Comment on above: Performed By: #### L D6, FT4, CK, TSH, GADCAB, AAQTPL, CARNPL ####[place] [address], [place] [phone]#### LVO #### [facility] [place], [place] [phone] Lactate/Pyruvateon 8 Lactate molar conc 2.4 mmol/L High 0.5-2.2 [facility] Comment on above: Performed By: #### L ACPYR, PLTHY ####[place] [address], [place] [phone] Pyruvate 0.06 mmol/L Normal 0.03-0.08 [facility] Comment on above: Performed By: #### L ACPYR, PLTHY ####[address] [phone] Paraneoplast Autoabson 06-27 ACh Receptor Bind Ab 0.00 nmol/L Normal <=0.02 [facility] Comment on above: Result Comment: (NOT E) ADDITIONAL INFORMATION This test was developed and its performance characteristicsdetermined by [facility] in a manner consistent with CLIArequirements. This test has not been cleared or approved bythe U.S. Food and Drug Administration. Performed By: #### L D6, FT4, CK, TSH, GADCAB, AAQTPL, CARNPL ####[address] [phone]#### ADELINA #### [address] [phone] AChR Ganglionic Neur 0.00 nmol/L Normal <=0.02 [facility] Comment on above: Result Comment: (NOT E) ADDITIONAL INFORMATION This test was developed and its performance characteristicsdetermined by [facility] in a manner consistent with CLIArequirements. This test has not been cleared or approved bythe U.S. Food and Drug Administration. Performed By: #### L D6, FT4, CK, TSH, GADCAB, AAQTPL, CARNPL ####[address] [phone]#### PARNEO #### [address] [phone] Amphiphysin Ab, S Negative Normal <1:240 [facility] Comment on above: Result Comment: (NOT E) ADDITIONAL INFORMATION This test was developed and its performance characteristicsdetermined by [facility] in a manner consistent with CLIArequirements. This test has not been cleared or approved bythe U.S. Food and Drug Administration. Performed By: #### L D6, FT4, CK, TSH, GADCAB, AAQTPL, CARNPL ####[address] [phone]#### ADELINA #### [address] [phone] LORA 1, S Negative Normal <1:240 [facility] Comment on above: Performed By: #### L D6, FT4, CK, TSH, GADCAB, AAQTPL, CARNPL ####[address] [phone]#### LVO #### [address] [phone] LORA 2, S Negative Normal <1:240 [facility] Comment on above: Result Comment: (NOT E) ADDITIONAL INFORMATION This test was developed and its performance characteristicsdetermined by [facility] in a manner consistent with CLIArequirements. This test has not been cleared or approved bythe U.S. Food and Drug Administration. Performed By: #### L D6, FT4, CK, TSH, GADCAB, AAQTPL, CARNPL ####[address] [phone]#### PARNEO #### [facility] [facility], [place] [phone] LORA 3, S Negative Normal <1:240 [facility] Comment on above: Result Comment: (NOT E) ADDITIONAL INFORMATION This test was developed and its performance characteristicsdetermined by [facility] in a manner consistent with CLIArequirements. This test has not been cleared or approved bythe .. Food and Drug Administration. Performed By: #### L D6, FT4, CK, TSH, GADCAB, AAQTPL, CARNPL ####[address] [phone]#### ADELINA #### [facility] [place], [place] [phone] Anti-glial Nuc Ab 1 Negative Normal <1:240 [facility] Comment on above: Result Comment: (NOT E) ADDITIONAL INFORMATION This test was developed and its performance characteristicsdetermined by [facility] in a manner consistent with CLIArequirements. This test has not been cleared or approved bythe .. Food and Drug Administration. Performed By: #### L D6, FT4, CK, TSH, GADCAB, AAQTPL, CARNPL ####[address] [phone]#### LINDSEYNEO #### [facility] [facility], [place] [phone] Ca Ch Bind Ab,N Type 0.00 nmol/L Normal <=0.03 [facility] Comment on above: Result Comment: (NOT E) ADDITIONAL INFORMATION This test was developed and its performance characteristicsdetermined by [facility] in a manner consistent with CLIArequirements. This test has not been cleared or approved bythe U.S. Food and Drug Administration. Performed By: #### L D6, FT4, CK, TSH, GADCAB, AAQTPL, CARNPL ####[place] [address] [place], [place] [phone]#### ADELINA #### [address] [phone] Ca Chn Bind Ab, P/Q 0.02 nmol/L Normal <=0.02 [facility] Comment on above: Result Comment: (NOT E) ADDITIONAL INFORMATION This test was developed and its performance characteristicsdetermined by [facility] in a manner consistent with CLIArequirements. This test has not been cleared or approved bythe U.S. Food and Drug Administration. Performed By: #### L D6, FT4, CK, TSH, GADCAB, AAQTPL, CARNPL ####[place] [address] [place], [place] [phone]#### ADELINA #### [address] [phone] CRMP 5 IgG, S Negative Normal <1:240 [facility] Comment on above: Result Comment: (NOT E) ADDITIONAL INFORMATION This test was developed and its performance characteristicsdetermined by [facility] in a manner consistent with CLIArequirements. This test has not been cleared or approved bythe U.S. Food and Drug Administration. Performed By: #### L D6, FT4, CK, TSH, GADCAB, AAQTPL, CARNPL ####[address] [phone]#### PARNEO #### [address] [phone] Interpretive Comment (NOTE) Normal [facility] Comment on above: Result Comment: No i nformative autoantibodies were detected in theParaneoplastic Evaluation. However, a negative result doesnot exclude neurological autoimmunity with or withoutassociated neoplasia. Sensitivity and specificity ofantibody testing are enhanced by testing both serum andCSF. Performed By: #### L D6, FT4, CK, TSH, GADCAB, AAQTPL, CARNPL ####[address] [phone]#### PARNEO #### [address] [phone] Neur V-G K+ Chann Ab 0.00 nmol/L Normal <=0.02 [facility] Comment on above: Result Comment: (NOT E) ADDITIONAL INFORMATION This test was developed and its performance characteristicsdetermined by [facility] in a manner consistent with CLIArequirements. This test has not been cleared or approved bythe U.S. Food and Drug Administration. Performed By: #### L D6, FT4, CK, TSH, GADCAB, AAQTPL, CARNPL ####[address] [phone]#### PARNEO #### [address] [phone] PARNEO Reflex Tests None. Normal [facility] Comment on above: Result Comment: (NOT E) ADDITIONAL INFORMATION This test was developed and its performance characteristicsdetermined by [facility] in a manner consistent with CLIArequirements. This test has not been cleared or approved bythe U.S. Food and Drug Administration. Performed By: #### L D6, FT4, CK, TSH, GADCAB, AAQTPL, CARNPL ####[address] [phone]#### ADELINA #### [address] [phone] BINDERY HELPER 1, S Negative Normal <1:240 [facility] Comment on above: Result Comment: (NOT E) ADDITIONAL INFORMATION This test was developed and its performance characteristicsdetermined by [facility] in a manner consistent with CLIArequirements. This test has not been cleared or approved bythe U.S. Food and Drug Administration. Performed By: #### L D6, FT4, CK, TSH, GADCAB, AAQTPL, CARNPL ####[address] [phone]#### ADELINA #### [address] [phone] BINDERY HELPER 2, S Negative Normal <1:240 [facility] Comment on above: Result Comment: (NOT E) ADDITIONAL INFORMATION This test was developed and its performance characteristicsdetermined by [facility] in a manner consistent with CLIArequirements. This test has not been cleared or approved bythe U.S. Food and Drug Administration. Performed By: #### L D6, FT4, CK, TSH, GADCAB, AAQTPL, CARNPL ####[address] [phone]#### ADELINA #### [facility] [place], [place] [phone] BINDERY HELPER Tr, S Negative Normal <1:240 [facility] Comment on above: Result Comment: (NOT E) ADDITIONAL INFORMATION This test was developed and its performance characteristicsdetermined by [facility] in a manner consistent with CLIArequirements. This test has not been cleared or approved bythe U.S. Food and Drug Administration. Performed By: #### L D6, FT4, CK, TSH, GADCAB, AAQTPL, CARNPL ####[place] [address] [place], [place] [phone]#### ADELINA #### [facility] [place], [place] [phone] Striational Ab, S Negative Normal <1:120 [facility] Comment on above: Result Comment: (NOT E) ADDITIONAL INFORMATION This test was developed and its performance characteristicsdetermined by [facility] in a manner consistent with CLIArequirements. This test has not been cleared or approved bythe U.S. Food and Drug Administration. Performed By: #### L D6, FT4, CK, TSH, GADCAB, AAQTPL, CARNPL ####[facility] [place], [place] [phone]#### ADELINA #### [facility] [place], [place] [phone] Plasma Thymidine Deton 06-27 Plasma Thymidine Det View results in Scanned Documents link when available. Normal [facility] Comment on above: Performed By: #### L D6, FT4, CK, TSH, GADCAB, AAQTPL, CARNPL ####[facility] [place], [place] [phone]#### PARNEO #### [address] [phone] TSHon 06-27-2018 Thyrotropin Qn 4.180 uU/mL Normal 0.400-5.500 [facility] Comment on above: Performed By: #### L D6, FT4, CK, TSH, GADCAB, AAQTPL, CARNPL ####[facility] [address] [place], [place] [phone]#### PARNAVEENO #### [address] [phone] OBSOLETEon 12-05-2017 OBSOLETE Refill (AGCARDWST) YAZAN NOLASCO ([id number]) [address] [facility] Time Provider Department12/05/17 CORY MILAN AGCARDWST During your visit today, we recorded the following information about you:Rey Borja RN, RN 12/05/2017 12:12 PM SignedPatient phones requesting refills as follows:Pending Prescriptions Disp Refills WARFARIN 5 MG TABLET 90 tablet 3 Sig: Take 1 tablet by mouth once daily. FELIPE: No Please review and advise.Vanessa Talbot has been identified by name and date of : YesPending Prescriptions Disp Refills WARFARIN 5 MG TABLET 90 tablet 3 Sig: Take 1 tablet by mouth once daily. FELIPE: NoRX INSTRUCTIONS:Patient aware RX will be sent to pharmacy. No need to notify patient.Lizbet Talbot, RN, RN 12/05/2017 1:40 PM Signedescript confirmedAllergies As of Date: 12/05/2017(No Known Allergies)Date Reviewed: 12/03/2017Reviewed by: Hanna Jj [facility] - Fully AssessedReason for Visit: Refill Request [94]Order(s):warfarin (COUMADIN) 5 mg tabletTake 1 tablet by mouth once daily. Or as directedDisp: 90 tabletRfl: 3Prescriptions as of 12/05/2017 Sig: WARFARIN 5 MG TABLET Take 1 tablet by mouth once d* ALLOPURINOL 100 MG TABLET Take 2 tablets by mouth once * AMLODIPINE 10 MG TABLET Take 1 tablet by mouth once d* MAGNESIUM OXIDE 400 MG TABLET Take 1 tablet by mouth once d* LISINOPRIL 40 MG TABLET Take 1 tablet by mouth once d* WARFARIN 2.5 MG TABLET Take by mouth daily or as dir* LANTUS SOLOSTAR U-100 INSULIN* INJECT 20 UNITS SUBCUTANEOUSL* INSULIN GLARGINE (U-100) 100 * Inject 20 Units subcutaneousl* LIRAGLUTIDE 0.6 MG/0.1 ML (18* Inject 1.8 mg subcutaneously * METFORMIN 500 MG TABLET Take 2 tablets by mouth twice* FLUTICASONE 50 MCG/ACTUATION * Use 2 Sprays in each nostril * CARBAMIDE PEROXIDE 6.5 % EAR * Use 5 Drops in both ears twic* TAMSULOSIN 0.4 MG CAPSULE Take 1 capsule by mouth daily* GABAPENTIN 300 MG CAPSULE Take 1 capsule by mouth daily* CLONIDINE HCL 0.1 MG TABLET Take 1 tablet by mouth twice * METOPROLOL TARTRATE 100 MG TA* Take 1 tablet by mouth twice * DULOXETINE 60 MG CAPSULE,MANDIE* Take 1 capsule by mouth once * BD ULTRA-FINE LILO PEN NEEDLE* USE TWICE DAILY WITH INSULI* POTASSIUM CHLORIDE ER 10 MEQ * Take 1 tablet by mouth daily * HYDROCHLOROTHIAZIDE 25 MG TAB* Take 1 tablet by mouth once d* COMPOUNDED PRESCRIPTION Diabetic shoes:Re: diabetic* COMPOUNDED PRESCRIPTION 8gm tetracycline +8million un* BLOOD SUGAR DIAGNOSTIC, DRUM-* Test blood sugar(s) 4 times d* LANCETS three times daily as needed. * ECOTRIN LOW STRENGTH 81 MG TA* Take one(1) tablet daily. MULTIVITAMIN TABLET Take one(1) tablet daily.Problem List As Of Date 12/05/2017 Noted Resolved Diabetic neuropathy, type II diabetes mellitus * 03/03/2015 More... PERS HX COLONIC POLYPS [Z86.010] INVALID FOR* More... ESOPHAGEAL REFLUX [K21.9] Tobacco use disorder [F17.200] 11/10/2016 More... CHRONIC LIVER DIS NEC [K76.89] Morbid obesity (HCC) [E66.01] More... HTN (hypertension) [I10] 07/19/2017 Priority: C More... BENIGN MONROE SKIN ARM [D23.60] INVALID FOR* DIABETES MELLITUS ADULT ONSET [E11.9] INVALID FOR*07/05/2015 PURE HYPERGLYCERIDEMIA [E78.1] INVALID FOR* ADENOMA ADRENAL GLAND [D35.00] INVALID FOR* Somnolence [R40.0] INVALID FOR*07/05/2015 Type 2 diabetes mellitus (HCC) [E11.9] INVALID FOR*05/25/2014 More... Diarrhea [R19.7] Enthesopathy of unspecified site [M77.9] INVALID FOR* Tendonitis [M77.9] INVALID FOR* Depression [F32.9] INVALID FOR* Dorsal wrist ganglion [M67.439] INVALID FOR* Hyperlipidemia [E78.5] INVALID FOR* More... PMR (polymyalgia rheumatica) (HCC) [M35.3] INVALID FOR*02/16/2017 More... Ventricular tachycardia (HCC) [I47.2] INVALID FOR*12/03/2017 Priority: B More... SUMMARY [V999.95] INVALID FOR* Priority: A More... [place] on CPAP [G47.33, Z99.89] INVALID FOR* More... CAD (coronary artery disease), chickahominy indian tribe coronary *INVALID FOR* More... Dual implantable cardioverter-defibrillator in *INVALID FOR* More... 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 Diabetes mellitus type 2, controlled, without c*INVALID FOR* More... 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 Coronary artery disease involving chickahominy indian tribe viera*INVALID FOR* Choroid melanoma of left eye (HCC) [C69.32] INVALID FOR* BMI 38.0-38.9,adult [Z68.38] INVALID FOR*02/21/2016 Essential hypertension [I10] INVALID FOR* More... SVT (supraventricular tachycardia) (HCC) [I47.1]INVALID FOR* BMI 40.0-44.9, adult (HCC) [Z68.41] INVALID FOR*12/03/2017 [facility] current use of anticoagulant [Z79.01] INVALID FOR* Paroxysmal atrial fibrillation (HCC) [I48.0] INVALID FOR* Nuclear senile cataract of both eyes [H25.13] INVALID FOR*Prescriptions ordered this encounter Disp Refills Start End WARFARIN 5 MG TABLET 90 t* 3 12/05/2017 Route: ORAL Sig: Take 1 tablet by mouth once daily. Or as directedMedications Discontinued During This Encounter warfarin (COUMADIN) 5 mg tablet 30 t* 11 12/06/2016 12/05/2017 Sig: TAKE ONE TABLET BY MOUTH ONCE DAILY Disc: Reason for discontinue is not on file. Status:Closed by REY BORJA on 12/05/17 [facility] CNOVyulia 09-27-2017 OV Office Visit (AGCARDWST) YAZAN NOLASCO ([id number]) 1950 MDate Time Provider Department09/27/17 9:00 AM CORY MILANARDWST During your visit today, we recorded the following information about you: Pulse Blood pressure Weight Height 86/minute 110/70 125.1 kg 1.753 Robert Milan MD 09/28/2017 8:42 AM SignedPERTINENT CARDIAC HISTORYASHD - 50% LAD 2011HTNHLDMObesityOSA - CPAPSVTPAFNSVT - primary prophylaxis ICD 2012ADHERENCE TO GUIDELINESACE-I or ARB for HF with prior LVEFANDlt;40 (NQF 0081) - N/AASA or Plavix for ASHD (NQF 0067) - metBeta tuan for ASHD with prior NH or prior LVEFANDlt;40 (NQF 0070) - metBeta tuan for HF with prior LVEFANDlt;40 (NQF 0083) - N/AACE-I or ARB for ASHD with DM or prior LVEFANDlt;40 (NQF 0066) - metStatin therapy for ASHD or FHL or DM - metBMI documented and plan if ANDgt;25 (NQF 0421) - lifestyle recommendation formTobacco use screening and referral (NQF 0028) - lifestyle recommendation formRecommendation for whole food, plant based diet - lifestyle recommendation formCLINICAL IMPRESSION/PLAN:Yazan Nolasco has clinically stable ischemic heart disease. His ventriculararrhythmias are nonsustained and have not triggered device therapies. Hisdevice follow-up will be [facility] to [facility]. He is due for an officecheck in the fall. He will continue remote checks. He will be referred toelectrophysiology for follow-up.There is no indication for Diovan, which will be discontinued. He will continuehis CALVIN inhibitor. I've asked him to contact me with vital signs in the nextfew weeks.He will remain on Coumadin for treatment of his atrial fibrillation. He's beenencouraged to continue his device therapy for sleep apnea.Labs will be updated.I will see him in 6 months or as needed. If there is increased chest pain orshortness of breath, he has been advised to contact me.Written and verbal health teaching given to patient, patient verbalizesunderstanding and agrees with treatment plan.This note was generated using admetricks recognition system, and there may besome incorrect words, spellings, and punctuation that were not noted inchecking the note before saving.DIAGNOSIS FOR VISIT:ASHDVentricular arrhythmiaHISTORY OF PRESENT ILLNESSLarry Lavelle Nolasco is a 67-year-old gentleman who returns for follow-up ofmultiple cardiac issues, as noted above. He has a prior patient of Dr. Bates.He reports stable exercise tolerance. He's had no chest discomfort and has usedno nitroglycerin. He denies orthopnea, edema, syncope, palpitations, TIAs,amaurosis and claudication. He has had some mild postural lightheadedness.He has received no shocks from his defibrillator. [place] . He questions whether he still needs to be on Diovan.ALLERGIES:ALLERGIESN o Known AllergiesCURRENT OUTPATIENT MEDICATIONS:lisinopril (ZESTRIL, PRINIVIL) 40 mg tablet Take 1 tablet by mouth once daily.warfarin (COUMADIN) 2.5 mg tablet Take by mouth daily or as directed by yourphysicianLANTUS SOLOSTAR 100 unit/mL (3 mL) inpn INJECT 20 UNITS SUBCUTANEOUSLY ATBEDTIMEinsulin glargine (LANTUS SOLOSTAR) 100 unit/mL (3 mL) inpn Inject 20 Unitssubcutaneously daily at bedtime.liraglutide (VICTOZA 2-CARLITOS) 0.6 mg/0.1 mL (18 mg/3 mL) pnij Inject 1.8 mgsubcutaneously once daily.metFORMIN (GLUCOPHAGE) 500 mg tablet Take 2 tablets by mouth twice daily withmeals.fluticasone (FLONASE) 50 mcg/actuation nasal spray Use 2 Sprays in each nostrilonce daily. Rinse mouth after use.tamsulosin ER (FLOMAX) 0.4 mg cp24 TAKE ONE CAPSULE BY MOUTH AT BEDTIMEtamsulosin ER (FLOMAX) 0.4 mg cp24 Take 1 capsule by mouth daily at bedtime.gabapentin (NEURONTIN) 300 mg capsule Take 1 capsule by mouth daily at bedtime.For foot paincloNIDine HCl (CATAPRES) 0.1 mg tablet Take 1 tablet by mouth twice daily.metoprolol tartrate, short acting, (LOPRESSOR) 100 mg tablet Take 1 tablet bymouth twice daily.valsartan (DIOVAN) 160 mg tablet Take 1 tablet by mouth once daily.allopurinol (ZYLOPRIM) 100 mg tablet Take 2 tablets by mouth once daily.DULoxetine (CYMBALTA) 60 mg capsule Take 1 capsule by mouth once daily.LILO PEN NEEDLE 32 gauge x 32ANDquot; ndle USE TWICE DAILY WITH INSULIN DOSEglimepiride (AMARYL) 4 mg tablet Take 1 tablet by mouth once daily.potassium chloride (KLOR-CON 10) 10 mEq tablet Take 1 tablet by mouth dailywith breakfast.hydroCHLOROthiazi de (HYDRODIURIL, ESIDRIX) 25 mg tablet Take 1 tablet by mouthonce daily.warfarin (COUMADIN) 5 mg tablet TAKE ONE TABLET BY MOUTH ONCE DAILYamLODIPine (NORVASC) 10 mg tablet Take 1 tablet by mouth once daily.atorvastatin (LIPITOR) 20 mg tablet Take 1 tablet by mouth daily at bedtime.Blood Sugar Diagnostic, Drum (ACCU-CHEK COMPACT TEST) strp Test blood sugar(s)4 times daily. Dx: DM 250 Insulin: YesLancets (ACCU-CHEK SOFTCLIX LANCETS) Misc lancets three times daily as needed.Dx. 250.00aspirin(ECOTRIN LOW STRENGTH 81 MG TAB) Take one(1) tablet daily.MULTIVITAMIN ORAL TAB Take one(1) tablet daily.carbamide peroxide (DEBROX) 6.5 % otic solution Use 5 Drops in both ears twicedaily.COMPOUNDED PRESCRIPTION Diabetic shoes:Re: diabetic neuropathy, will decreasedsensations on the fore footCOMPOUNDED PRESCRIPTION 8gm tetracycline +8million units nystatin +200mghydrocortisone +480ml water. 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- Diabetes mellitus (HCC)- Diarrhea- Dyslipidemia- Esophageal reflux- Mononeuritis of unspecified site- Obesity, unspecified- Other chronic nonalcoholic liver disease- Personal history of colonic polyps 03/20/2005 Colon polyps- Tobacco use disorder- Unspecified essential hypertensionPAST SURGICAL HISTORYProcedure Laterality Date- COLONOSCOP W/ OR W/O [facility] SPEC 03/20/2005 Colonoscopy- COLONOSCOP W/ OR W/O [facility] SPEC 06/15/15 Colonoscopy [facility] out pt- EGD W/O OR W/BRUSH/WASH 06/15/15 EGD [facility] out pt- PACEMAKER SURGERY 03-11-2012 pacer/defib- PAST SURGICAL HISTORY OF 09/16/2012 eye surgery, s/p Plaque OS- PILONIDAL CYST/SINUS EXCISION 01/19/2003 Excision pilonidal cyst- REPAIR UMBILICAL LALA,ANDlt;5Y/O,REDUC 02/17/1999 Hernia repair, umbilicalFAMILY HISTORYProblem Relation Age of Onset- Heart Mother of CHF at 91- Stroke Mother- Hypertension Mother- Other [OTHER] Father at 87 of a brain aneurysm- None Brother- Hypertension Brother- No Ocular Disease OtherSocial History Marital status: Spouse name: kiley Years of education: Number of children: 2Occupational HistoryOccupation Employer Commentretired [employer]ocial History Main Topics Smoking status: Former Smoker Packs/day: 1.00 Years: 40.00 Types: Cigarettes Quit date: 03/26/2009 Smokeless status: Never Used Alcohol use: No Comment: recovering Drug use: NoREVIEW OF SYSTEMS: General: No chills, fever, weight loss, night sweats.Respiratory: No productive cough. Cardiac: As noted above. GI: No melena.: No dysuria. Musculoskeletal: No myalgias.PHYSICAL EXAMINATION: S/he is alert and in no distress.VITAL SIGNS: BP 110/70 Pulse 86 Ht 5' 9ANDquot; (1.75m) Wt 275 lb 12.8 oz(125.1kg) BMI 40.71 kg/(m2).SHEENT: Skin is warm and dry. No xanthelasmas appreciated. Pharynx isbenign. There is no oral cyanosis. Neck: supple. No adenopathy or thyroidenlargement. Chest: Clear to percussion and auscultation. Trachea is midline. Air entry is equal. There is no chest wall tenderness. Cardiac: Regularrhythm. S1 and S2 are normal. PMI is nondisplaced. There is a soft systolicejection murmur. No click is heard. Carotids are brisk without bruits. JVPis less than 10 cm. Abdomen: Soft and nontender. Examination is compromiseddue to obesity. There are no pulsatile masses or bruits. No liverenlargement. Bowel sounds are active. Extremities: No edema. Pulses areintact and symmetrical. No clubbing or cyanosis. No femoral bruits.Neurologic: Grossly normal motor and sensory. S/he is alert and oriented x4.EKG shows sinus rhythm. There are lateral T-wave changes. No significant changeis seen since prior study.Extensive previous records were reviewed. He has known moderate single vesseldisease, but has been 5 years since his angiography.Stress test performed in 05/26 showed no evidence of ischemia.Most recent ICD check showed occasional episodes of atrial fibrillation. Therehave been no sustained ventricular arrhythmias, although he still has fairlyfrequent short runs of nonsustained VT.Echocardiogram shows normal ejection fraction. Images were personally reviewed.There is no significant valvular disease.Recent labs reviewed. Renal function is normal. LDL was 49. TSH is normal.Electronically Signed:Cory Milan MDSeptember 27, 2017 9:45 [facility]:Mari RUTHERFORD MD 09/27/2017 9:46 AM SignedStop DiovanCall with vital signs in 2 wksLIFESTYLE CHANGEA healthy lifestyle is the most important component of your overall treatmentplan. Please give serious thought to the following areas and commit to makinglong term changes.EAT A WHOLE FOOD, PLANT BASED DIETThe nutrition your body gets is more important than the medicine you take.What matters most is the overall way you eat. We encourage you to minimize theuse of animal products (which include dairy and all meats except fatty fish)and use whole, unprocessed plant foods to provide your protein, vitamins andother nutrients. We have a lot of information to share with you on this topic. We also hold Shared Medical Appointments, where you can come visit with in the company of other patients and spend over an hour talking aboutthe challenges of changing the way you eat. This is not a ANDquot;dietANDquot;.It is a way of life that you will keep with you.EXERCISE REGULARLYIt is not important to spend hours in the gym, lifting weights and perspiringheavily. A total of 2-3 hours per week of aerobic (causing you to bemoderately short of breath) exercise is sufficient to improve your health.Talk to us before you begin a new exercise program, if you have heart diseaseor experience shortness of breath or chest pain.REDUCE STRESSChronic emotional and physical stress leads to disease. Ways of reducingstress include meditation, visualization, prayer, yoga and other forms ofrelaxation therapy. Consistency is the freeman. Find a technique that works foryou and do it every day.CULTIVATE RELATIONSHIPSLoneliness and isolation have a major negative impact on health. Seek outothers who can love, care for and nurture you. Avoid hurtful relationships.MAINTAIN IDEAL BODY WEIGHTThe best way to do this is to do all the things above. Our bodies naturallyfind the right weight if we keep moving and feed ourselves the right food. Ifyour BMI is greater than 25, we strongly recommend a referral to a weightmanagement program. Please speak to us or your family physician aboutavailable programs.AVOID NICOTINE IN ALL FORMSThis includes all tobacco products, whether chewed, smoked, vaped, or rubbed onthe skin. Smoking cessation programs, which can make use of tobaccosubstitutes, medications to suppress cravings and behavior management, areavailable. Please contact your family physician about programs in your area.Referring Provider: SCOTT BATES [[id number]]Allergies As of Date: 09/27/2017(No Known Allergies)Date Reviewed: 09/27/2017Reviewed by: Eduardo Shaffer - Fully AssessedReason for Visit: Follow Up [171]Primary Visit Diagnosis:ASHD (arteriosclerotic heart disease) [I25.10] Other Visit Diagnoses:PAF (paroxysmal atrial fibrillation) ([facility]) [I48.0] Hypertension, essential [I10] Ventricular arrhythmia [I49.9]Order(s):ECG B/O W INTERP (MED OFFICE) [ECG06] Order #: [id number] CONSULT TO ELECTROPHYSIOLOGY [5937704] Order #: [id number]: 1 CONSULT TO DEVICE CLINIC (AG) [6486367] Order #: [id number]: 1 BASIC METABOLIC PNL [SQBMP] Order #: [id number] FUTURE MAGNESIUM BLD [SQMG1] Order #: [id number] FUTURE TSH BLD [SQTSH] Order #: [id number] FUTURE ALT/SGPT [SQALT] Order #: [id number] FUTURE CK CREATINE KINASE [SQCK] Order #: [id number] FUTURE LIPID PANEL BASIC [SQLIPB] Order #: [id number] FUTURE CBC [SQCBC] Order #: [id number] FUTUREPrescriptions as of 09/27/2017 Sig: LISINOPRIL 40 MG TABLET Take 1 tablet by mouth once d* WARFARIN 2.5 MG TABLET Take by mouth daily or as dir* LANTUS SOLOSTAR 100 UNIT/ML (* INJECT 20 UNITS SUBCUTANEOUSL* INSULIN GLARGINE 100 UNIT/ML * Inject 20 Units subcutaneousl* LIRAGLUTIDE 0.6 MG/0.1 ML (18* Inject 1.8 mg subcutaneously * METFORMIN 500 MG TABLET Take 2 tablets by mouth twice* FLUTICASONE 50 MCG/ACTUATION * Use 2 Sprays in each nostril * TAMSULOSIN 0.4 MG CAPSULE Take 1 capsule by mouth daily* GABAPENTIN 300 MG CAPSULE Take 1 capsule by mouth daily* CLONIDINE HCL 0.1 MG TABLET Take 1 tablet by mouth twice * METOPROLOL TARTRATE 100 MG TA* Take 1 tablet by mouth twice * ALLOPURINOL 100 MG TABLET Take 2 tablets by mouth once * DULOXETINE 60 MG CAPSULE,MANDIE* Take 1 capsule by mouth once * BD ULTRA-FINE LILO PEN NEEDLE* USE TWICE DAILY WITH INSULI* GLIMEPIRIDE 4 MG TABLET Take 1 tablet by mouth once d* POTASSIUM CHLORIDE ER 10 MEQ * Take 1 tablet by mouth daily * HYDROCHLOROTHIAZIDE 25 MG TAB* Take 1 tablet by mouth once d* WARFARIN 5 MG TABLET TAKE ONE TABLET BY MOUTH ONCE* AMLODIPINE 10 MG TABLET Take 1 tablet by mouth once d* ATORVASTATIN 20 MG TABLET Take 1 tablet by mouth daily * BLOOD SUGAR DIAGNOSTIC, DRUM-* Test blood sugar(s) 4 times d* LANCETS three times daily as needed. * ECOTRIN LOW STRENGTH 81 MG TA* Take one(1) tablet daily. MULTIVITAMIN TABLET Take one(1) tablet daily. CARBAMIDE PEROXIDE 6.5 % EAR * Use 5 Drops in both ears twic* COMPOUNDED PRESCRIPTION Diabetic shoes:Re: diabetic* COMPOUNDED PRESCRIPTION 8gm tetracycline +8million un*Medication notes this encounter CARBAMIDE PEROXIDE 6.5 % EAR DROPS >> Eduardo Shaffer MA 09/27/2017 8:59 AM >> EDUARDO SHAFFER MA Sep 27, 2017 8:59 AM Not usingProblem List As Of Date 09/27/2017 Noted Resolved Diabetic neuropathy, type II diabetes mellitus * 03/03/2015 More... PERS HX COLONIC POLYPS [Z86.010] INVALID FOR* More... ESOPHAGEAL REFLUX [K21.9] Tobacco use disorder [F17.200] 11/10/2016 More... CHRONIC LIVER DIS NEC [K76.89] Morbid obesity (HCC) [E66.01] More... HTN (hypertension) [I10] 07/19/2017 Priority: C More... BENIGN MONROE SKIN ARM [D23.60] INVALID FOR* DIABETES MELLITUS ADULT ONSET [E11.9] INVALID FOR*07/05/2015 PURE HYPERGLYCERIDEMIA [E78.1] INVALID FOR* ADENOMA ADRENAL GLAND [D35.00] INVALID FOR* Somnolence [R40.0] INVALID FOR*07/05/2015 Type 2 diabetes mellitus (HCC) [E11.9] INVALID FOR*05/25/2014 More... Diarrhea [R19.7] Enthesopathy of unspecified site [M77.9] INVALID FOR* Tendonitis [M77.9] INVALID FOR* Depression [F32.9] INVALID FOR* Dorsal wrist ganglion [M67.439] INVALID FOR* Hyperlipidemia [E78.5] INVALID FOR* More... PMR (polymyalgia rheumatica) (HCC) [M35.3] INVALID FOR*02/16/2017 More... Ventricular tachycardia [I47.2] INVALID FOR* Priority: B More... SUMMARY [V999.95] INVALID FOR* Priority: A More... [place] on CPAP [G47.33, Z99.89] INVALID FOR* More... CAD (coronary artery disease), chickahominy indian tribe coronary *INVALID FOR* More... Dual implantable cardioverter-defibrillator in *INVALID FOR* More... 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 Diabetes mellitus type 2, controlled, without c*INVALID FOR* More... 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 Coronary artery disease involving chickahominy indian tribe viera*INVALID FOR* Choroid melanoma of left eye (HCC) [C69.32] INVALID FOR* BMI 38.0-38.9,adult [Z68.38] INVALID FOR*02/21/2016 Essential hypertension [I10] INVALID FOR* More... 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 EAT A WHOLE FOOD, PLANT BASED DIET The nutrition your body gets is more important than the medicine you take. What matters most is the overall way you eat. We encourage you to minimize the use of animal products (which include dairy and all meats except fatty fish) and use whole, unprocessed plant foods to provide your protein, vitamins and other nutrients. We have a lot of information to share with you on this topic. We also hold Shared Medical Appointments, where you can come visit with Dr. Milan in the company of other patients and spend over an hour talking about the challenges of changing the way you eat. This is not a diet. It is a way of life that you will keep with you. EXERCISE REGULARLY It is not important to spend hours in the gym, lifting weights and perspiring heavily. A total of 2-3 hours per week of aerobic (causing you to be moderately short of breath) exercise is sufficient to improve your health. Talk to us before you begin a new exercise program, if you have heart disease or experience shortness of breath or chest pain. REDUCE STRESS Chronic emotional and physical stress leads to disease. Ways of reducing stress include meditation, visualization, prayer, yoga and other forms of relaxation therapy. Consistency is the freeman. Find a technique that works for you and do it every day. CULTIVATE RELATIONSHIPS Loneliness and isolation have a major negative impact on health. Seek out others who can love, care for and nurture you. Avoid hurtful relationships. MAINTAIN IDEAL BODY WEIGHT The best way to do this is to do all the things above. Our bodies naturally find the right weight if we keep moving and feed ourselves the right food. If your BMI is greater than 25, we strongly recommend a referral to a weight management program. Please speak to us or your family physician about available programs. AVOID NICOTINE IN ALL FORMS This includes all tobacco products, whether chewed, smoked, vaped, or rubbed on the skin. Smoking cessation programs, which can make use of tobacco substitutes, medications to suppress cravings and behavior management, are available. Please contact your family physician about programs in your area.Medications Discontinued During This Encounter tamsulosin ER (FLOMAX) 0.4 mg cp24 30 c* 5 08/29/2017 09/27/2017 Cmt: Please consider 90 day supplies to promote better adherence Sig: TAKE ONE CAPSULE BY MOUTH AT BEDTIME Disc: Reason for discontinue is not on file. valsartan (DIOVAN) 160 mg tablet 30 t* 5 06/07/2017 09/27/2017 Route: ORAL Sig: Take 1 tablet by mouth once daily. Disc: Reason for discontinue is not on file. Status:Closed by CORY MILAN MD on 09/28/17 [facility] PROGRESSon 09-27-2017 PROGRESS HNO ID: [id number] thor: Cory Morris: (none)Author Type: PhysicianType: Progress NotesFiled: 09/28/2017 8:42 AMNote Text:PERTINENT CARDIAC HISTORYASHD - 50% LAD 2012HTNHLDMObesityOSA - CPAPSVTPAFNSVT - primary prophylaxis ICD 2012ADHERENCE TO GUIDELINESACE-I or ARB for HF with prior LVEF<40 (NQF 0081) - N/AASA or Plavix for ASHD (NQF 0067) - metBeta tuan for ASHD with prior NH or prior LVEF<40 (NQF 0070) - metBeta tuan for HF with prior LVEF<40 (NQF 0083) - N/AACE-I or ARB for ASHD with DM or prior LVEF<40 (NQF 0066) - metStatin therapy for ASHD or FHL or DM - metBMI documented and plan if >25 (NQF 0421) - lifestyle recommendation formTobacco use screening and referral (NQF 0028) - lifestyle recommendationformRecommend ation for whole food, plant based diet - lifestyle recommendationformCLINICAL IMPRESSION/PLAN:Yazan Nolasco has clinically stable ischemic heart disease. Hisventricular arrhythmias are nonsustained and have not triggered devicetherapies. His device follow-up will be switched to [facility]. Heis due for an office check in the fall. He will continue remote checks. Hewill be referred to electrophysiology for follow-up.There is no indication for Diovan, which will be discontinued. He willcontinue his CALVIN inhibitor. I've asked him to contact me with vital signsin the next few weeks.He will remain on Coumadin for treatment of his atrial fibrillation. He'sbeen encouraged to continue his device therapy for sleep apnea.Labs will be updated.I will see him in 6 months or as needed. If there is increased chest painor shortness of breath, he has been advised to contact me.Written and verbal health teaching given to patient, patient verbalizesunderstanding and agrees with treatment plan.This note was generated using [employer] voice recognition system, and theremay be some incorrect words, spellings, and punctuation that were notnoted in checking the note before saving.DIAGNOSIS FOR VISIT:ASHDVentricular arrhythmiaHISTORY OF PRESENT ILLNESSYazan Nolasco is a 67-year-old gentleman who returns for follow-up ofmultiple cardiac issues, as noted above. He has a prior patient of .He reports stable exercise tolerance. He's had no chest discomfort and hasused no nitroglycerin. He denies orthopnea, edema, syncope, palpitations,TIAs, amaurosis and claudication. He has had some mild posturallightheadedness.He has received no shocks from his defibrillator. His checks are beingmanaged through [place] . He questions whether he still needs to be onDiovan.ALLERGIES:ALLERGIE o Known AllergiesCURRENT OUTPATIENT MEDICATIONS:lisinopril (ZESTRIL, PRINIVIL) 40 mg tablet Take 1 tablet by mouth oncedaily.warfarin (COUMADIN) 2.5 mg tablet Take by mouth daily or as directed byyour physicianLANTUS SOLOSTAR 100 unit/mL (3 mL) inpn INJECT 20 UNITS SUBCUTANEOUSLY ATBEDTIMEinsulin glargine (LANTUS SOLOSTAR) 100 unit/mL (3 mL) inpn Inject 20 Unitssubcutaneously daily at bedtime.liraglutide (VICTOZA 2-CARLITOS) 0.6 mg/0.1 mL (18 mg/3 mL) pnij Inject 1.8 mgsubcutaneously once daily.metFORMIN (GLUCOPHAGE) 500 mg tablet Take 2 tablets by mouth twice dailywith meals.fluticasone (FLONASE) 50 mcg/actuation nasal spray Use 2 Sprays in eachnostril once daily. Rinse mouth after use.tamsulosin ER (FLOMAX) 0.4 mg cp24 TAKE ONE CAPSULE BY MOUTH AT BEDTIMEtamsulosin ER (FLOMAX) 0.4 mg cp24 Take 1 capsule by mouth daily atbedtime.gabapentin (NEURONTIN) 300 mg capsule Take 1 capsule by mouth daily atbedtime. For foot paincloNIDine HCl (CATAPRES) 0.1 mg tablet Take 1 tablet by mouth twice daily.metoprolol tartrate, short acting, (LOPRESSOR) 100 mg tablet Take 1 tabletby mouth twice daily.valsartan (DIOVAN) 160 mg tablet Take 1 tablet by mouth once daily.allopurinol (ZYLOPRIM) 100 mg tablet Take 2 tablets by mouth once daily.DULoxetine (CYMBALTA) 60 mg capsule Take 1 capsule by mouth once daily.LILO PEN NEEDLE 32 gauge x ndle USE TWICE DAILY WITH INSULIN DOSEglimepiride (AMARYL) 4 mg tablet Take 1 tablet by mouth once daily.potassium chloride (KLOR-CON 10) 10 mEq tablet Take 1 tablet by mouthdaily with breakfast.hydroCHLOROthiazi de (HYDRODIURIL, ESIDRIX) 25 mg tablet Take 1 tablet bymouth once daily.warfarin (COUMADIN) 5 mg tablet TAKE ONE TABLET BY MOUTH ONCE DAILYamLODIPine (NORVASC) 10 mg tablet Take 1 tablet by mouth once daily.atorvastatin (LIPITOR) 20 mg tablet Take 1 tablet by mouth daily atbedtime.Blood Sugar Diagnostic, Drum (ACCU-CHEK COMPACT TEST) strp Test bloodsugar(s) 4 times daily. Dx: DM 250 Insulin: YesLancets (ACCU-CHEK SOFTCLIX LANCETS) Misc lancets three times daily asneeded. Dx. 250.00aspirin(ECOTRIN LOW STRENGTH 81 MG TAB) Take one(1) tablet daily.MULTIVITAMIN ORAL TAB Take one(1) tablet daily.carbamide peroxide (DEBROX) 6.5 % otic solution Use 5 Drops in both earstwice daily.COMPOUNDED PRESCRIPTION Diabetic shoes:Re: diabetic neuropathy, willdecreased sensations on the fore footCOMPOUNDED PRESCRIPTION 8gm tetracycline +8million units nystatin +200mghydrocortisone +480ml water. 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- Diabetes mellitus (HCC)- Diarrhea- Dyslipidemia- Esophageal reflux- Mononeuritis of unspecified site- Obesity, unspecified- Other chronic nonalcoholic liver disease- Personal history of colonic polyps 03/20/2005 Colon polyps- Tobacco use disorder- Unspecified essential hypertensionPAST SURGICAL HISTORYProcedure Laterality Date- COLONOSCOP W/ OR W/O [facility] SPEC 03/20/2005 Colonoscopy- COLONOSCOP W/ OR W/O [facility] SPEC 06/15/15 Colonoscopy [facility] out pt- EGD W/O OR W/BRUSH/WASH 06/15/15 EGD [facility] out pt- PACEMAKER SURGERY 03-11-2012 pacer/defib- PAST SURGICAL HISTORY OF 09/16/2012 eye surgery, s/p Plaque OS- PILONIDAL CYST/SINUS EXCISION 01/19/2003 Excision pilonidal cyst- REPAIR UMBILICAL LALA,<5Y/O,REDUC 02/17/1999 Hernia repair, umbilicalFAMILY HISTORYProblem Relation Age of Onset- Heart Mother of CHF at 91- Stroke Mother- Hypertension Mother- Other [OTHER] Father at 87 of a brain aneurysm- None Brother- Hypertension Brother- No Ocular Disease OtherSocial History Marital status: Spouse name: kiley Years of education: Number of children: 2Occupational HistoryOccupation Employer Commentretired [employer] History Main Topics Smoking status: Former Smoker Packs/day: 1.00 Years: 40.00 Types: Cigarettes Quit date: 03/26/2009 Smokeless status: Never Used Alcohol use: No Comment: recovering Drug use: NoREVIEW OF SYSTEMS: General: No chills, fever, weight loss, night sweats. Respiratory: No productive cough. Cardiac: As noted above. GI: [place]el[place]. : No dysuria. Musculoskeletal: No myalgias.PHYSICAL EXAMINATION: S/he is alert and in no distress.VITAL SIGNS: BP 110/70 Pulse 86 Ht 5' 9 (1.75m) Wt 275 lb 12.8 oz(125.1kg) BMI 40.71 kg/(m2).SHEENT: Skin is warm and dry. No xanthelasmas appreciated. Pharynx isbenign. There is no oral cyanosis. Neck: supple. No adenopathy orthyroid enlargement. Chest: Clear to percussion and auscultation.Trachea is midline. Air entry is equal. There is no chest walltenderness. Cardiac: Regular rhythm. S1 and S2 are normal. PMI isnondisplaced. There is a soft systolic ejection murmur. No click isheard. Carotids are brisk without bruits. JVP is less than 10 cm.Abdomen: Soft and nontender. Examination is compromised due to obesity.There are no pulsatile masses or bruits. No liver enlargement. Bowelsounds are active. Extremities: No edema. Pulses are intact andsymmetrical. No clubbing or cyanosis. No femoral bruits. Neurologic:Grossly normal motor and sensory. S/he is alert and oriented x4.EKG shows sinus rhythm. There are lateral T-wave changes. No significantchange is seen since prior study.Extensive previous records were reviewed. He has known moderate singlevessel disease, but has been 5 years since his angiography.Stress test performed in 05/26 showed no evidence of ischemia.Most recent ICD check showed occasional episodes of atrial fibrillation.There have been no sustained ventricular arrhythmias, although he stillhas fairly frequent short runs of nonsustained VT.Echocardiogram shows normal ejection fraction. Images were personallyreviewed. There is no significant valvular disease.Recent labs reviewed. Renal function is normal. LDL was 49. TSH is normal.Electronically Signed:Cory Milan MDSeptember 27, 2017 9:45 [facility]:DEE ASHLYE MD [facility] OBSOLETEon 07-20-2017 OBSOLETE Refill (AGCARDWST) YAZAN NOLASCO ([id number]) 1950 MDate Time Provider Bajuztnvfr43/10/17 CORY MILAN AGCARDWST During your visit today, we recorded the following information about you:Rey Borja RN, RN 07/20/2017 3:43 PM SignedConfirmed with patient that he will be seeing you in September. Let him know thatif you are unable to fill script he may ask PCP, he verbalizes understanding.Patient phones requesting refills as follows:Pending Prescriptions Disp Refills CLONIDINE HCL 0.1 MG TABLET 180 tablet 3 Sig: Take 1 tablet by mouth twice daily. FELIPE: No Please review and advise.Rey Rebecca Borjaclaudia has been identified by name and date of : YesRX INSTRUCTIONS:Patient aware RX will be sent to pharmacy. No need to notify patient.Heriberto Talbot MD 07/20/2017 4:32 PM SignedThe following approved medication requests have been transmitted electronically.Signed Prescriptions Disp Refills cloNIDine HCl (CATAPRES) 0.1 mg tablet 180 tablet 3 Sig: Take 1 tablet by mouth twice daily. FELIPE: No Authorizing Provider: CORY MILAN MDAdam Gilmor, RN, RN 07/20/2017 4:41 PM Signedescript confirmedAllergies As of Date: 07/20/2017(No Known Allergies)Date Reviewed: 07/19/2017Reviewed by: Flor Baez Ma - Fully AssessedReason for Visit: Refill Request [94]Order(s):cloNIDine HCl (CATAPRES) 0.1 mg tabletTake 1 tablet by mouth twice daily.Disp: 180 tabletRfl: 3Prescriptions as of 07/20/2017 Sig: CLONIDINE HCL 0.1 MG TABLET Take 1 tablet by mouth twice * METOPROLOL TARTRATE 100 MG TA* Take 1 tablet by mouth twice * VALSARTAN 160 MG TABLET Take 1 tablet by mouth once d* LIRAGLUTIDE 0.6 MG/0.1 ML (18* Inject 1.2 mg subcutaneously * ALLOPURINOL 100 MG TABLET Take 2 tablets by mouth once * METFORMIN 500 MG TABLET Take 2 tablets by mouth in th* DULOXETINE 60 MG CAPSULE,MANDIE* Take 1 capsule by mouth once * INSULIN GLARGINE 100 UNIT/ML * Inject 20 Units subcutaneousl* BD ULTRA-FINE LILO PEN NEEDLE* USE TWICE DAILY WITH INSULI* GLIMEPIRIDE 4 MG TABLET Take 1 tablet by mouth once d* TAMSULOSIN 0.4 MG CAPSULE Take 1 capsule by mouth daily* POTASSIUM CHLORIDE ER 10 MEQ * Take 1 tablet by mouth daily * GABAPENTIN 300 MG CAPSULE Take 1 capsule by mouth twice* HYDROCHLOROTHIAZIDE 25 MG TAB* Take 1 tablet by mouth once d* WARFARIN 5 MG TABLET TAKE ONE TABLET BY MOUTH ONCE* AMLODIPINE 10 MG TABLET Take 1 tablet by mouth once d* COMPOUNDED PRESCRIPTION Diabetic shoes:Re: diabetic* LISINOPRIL 40 MG TABLET Take 1 tablet by mouth once d* WARFARIN 2.5 MG TABLET Take by mouth daily or as dir* COMPOUNDED PRESCRIPTION 8gm tetracycline +8million un* ATORVASTATIN 20 MG TABLET Take 1 tablet by mouth daily * BLOOD SUGAR DIAGNOSTIC, DRUM-* Test blood sugar(s) 4 times d* IBUPROFEN 200 MG TABLET Take 200 mg by mouth every 6 * LANCETS three times daily as needed. * ECOTRIN LOW STRENGTH 81 MG TA* Take one(1) tablet daily. MULTIVITAMIN TABLET Take one(1) tablet daily.Problem List As Of Date 07/20/2017 Noted Resolved Diabetic neuropathy, type II diabetes mellitus * 03/03/2015 More... PERS HX COLONIC POLYPS [Z86.010] INVALID FOR* More... ESOPHAGEAL REFLUX [K21.9] Tobacco use disorder [F17.200] 11/10/2016 More... CHRONIC LIVER DIS NEC [K76.89] Morbid obesity (HCC) [E66.01] More... HTN (hypertension) [I10] 07/19/2017 Priority: C More... BENIGN MONROE SKIN ARM [D23.60] INVALID FOR* DIABETES MELLITUS ADULT ONSET [E11.9] INVALID FOR*07/05/2015 PURE HYPERGLYCERIDEMIA [E78.1] INVALID FOR* ADENOMA ADRENAL GLAND [D35.00] INVALID FOR* Somnolence [R40.0] INVALID FOR*07/05/2015 Type 2 diabetes mellitus (HCC) [E11.9] INVALID FOR*05/25/2014 More... Diarrhea [R19.7] Enthesopathy of unspecified site [M77.9] INVALID FOR* Tendonitis [M77.9] INVALID FOR* Depression [F32.9] INVALID FOR* Dorsal wrist ganglion [M67.439] INVALID FOR* Hyperlipidemia [E78.5] INVALID FOR* More... PMR (polymyalgia rheumatica) ([facility]) [M35.3] INVALID FOR*02/16/2017 More... Ventricular tachycardia [I47.2] INVALID FOR* Priority: B More... SUMMARY [V999.95] INVALID FOR* Priority: A More... [place] on CPAP [G47.33, Z99.89] INVALID FOR* More... CAD (coronary artery disease), chick[place]om[place] ind[place] tribe coronary *INVALID FOR* More... Dual implantable cardioverter-defibrillator in *INVALID FOR* More... 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 BMI 40.0-44.9, adult ([facility]) [Z68.41] INVALID FOR*11/05/2015 Hypokalemia [E87.6] INVALID FOR* Malignant melanoma of choroid (HCC) - Left Eye *INVALID FOR* DM (diabetes mellitus), type 2 with neurologica*INVALID FOR* More... Diabetes mellitus type 2, controlled, without c*INVALID FOR* More... 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 Coronary artery disease involving [place]om[place] indian tribe viera*INVALID FOR* Choroid melanoma of left eye (HCC) [C69.32] INVALID FOR* BMI 38.0-38.9,adult [Z68.38] INVALID FOR*02/21/2016 Essential hypertension [I10] INVALID FOR* More... 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 Disc: Reason for discontinue is not on file. Status:Closed by REY BORJA on 07/20/17 Normal [facility] Vital Signs Date Time Vital Sign Value Performing Clinician Facility 05-26-2025 22:00-0400 Body temperature 97.2 [degF] Dr. Dee Ashley MD Work Phone: [facility] 05-26-2025 22:00-0400 Diastolic blood pressure 70 mm[Hg] Dr. Dee Ashley MD Work Phone: [facility] 05-26-2025 22:00-0400 Heart rate 96 /min Dr. Dee Ashley MD Work Phone: [facility] 05-26-2025 22:00-0400 Respiratory rate 18 /min Dr. Dee Ashley MD Work Phone: [facility] 05-26-2025 22:00-0400 SaO2% (BldA) [Mass fraction] 96 % Dr. Dee Ashley MD Work Phone: [facility] 05-26-2025 22:00-0400 Systolic blood pressure 138 mm[Hg] Dr. Dee Ashley MD Work Phone: [facility] 05-26-2025 18:06-0400 Body height 175.[address] Dee Ashley MD Work Phone: [facility] 05-25-2025 09:49-0400 Body height 176.5 cm Keyshawn Ordonez MD Work Phone: [facility] 05-25-2025 09:49-0400 Body mass index (BMI) [Ratio] 39.07 kg/m2 Keyshawn Ordonez MD Work Phone: [facility] 05-25-2025 09:49-0400 Body weight 121.75 kg Keyshawn Ordonez MD Work Phone: [facility] 05-25-2025 09:49-0400 Diastolic blood pressure 64 mm[Hg] Keyshawn Ordonez MD Work Phone: [facility] 05-25-2025 09:49-0400 Heart rate 81 /min Keyshawn Ordonez MD Work Phone: [facility] 05-25-2025 09:49-0400 Respiratory rate 16 /min Keyshawn Ordonez MD Work Phone: [facility] 05-25-2025 09:49-0400 SaO2% (BldA) [Mass fraction] 97 % Keyshawn Ordonez MD Work Phone: [facility] 05-25-2025 09:49-0400 Systolic blood pressure 116 mm[Hg] Keyshawn Ordonez MD Work Phone: [facility] 05-12-2025 16:26-0400 Diastolic blood pressure 76 mm[Hg] Dee Ashley MD Work Phone: [facility] 05-12-2025 16:26-0400 Heart rate 86 /min Dee Ashley MD Work Phone: [facility] 05-12-2025 16:26-0400 Systolic blood pressure 157 mm[Hg] Dee Ashley MD Work Phone: [facility] 05-12-2025 15:37-0400 Body mass index (BMI) [Ratio] 40.35 kg/m2 Dee Ashley MD Work Phone: [facility] 05-12-2025 15:37-0400 Body weight 125.74 kg Dee Ashley MD Work Phone: [facility] 05-12-2025 15:37-0400 Respiratory rate 16 /min Dee Ashley MD Work Phone: [facility] 05-05-2025 09:32-0400 Body mass index (BMI) [Ratio] 40.14 kg/m2 Dee Ashley MD Work Phone: [facility] 05-05-2025 09:32-0400 Body weight 125.1 kg Dee Ashley MD Work Phone: [facility] 05-05-2025 09:32-0400 Diastolic blood pressure 71 mm[Hg] Dee Ashley MD Work Phone: [facility] 05-05-2025 09:32-0400 Heart rate 106 /min Dee Ashley MD Work Phone: [facility] 05-05-2025 09:32-0400 Respiratory rate 16 /min Dee Ashley MD Work Phone: [facility] 05-05-2025 09:32-0400 Systolic blood pressure 186 mm[Hg] Dee Ashley MD Work Phone: [facility] 04-30-2025 09:34-0400 Body mass index (BMI) [Ratio] 40.03 kg/m2 Injection Wstr Work Phone: [facility] 04-30-2025 09:34-0400 Body temperature 98.01 [degF] Injection Wstr Work Phone: [facility] 04-30-2025 09:34-0400 Body weight 124.74 kg Injection Wstr Work Phone: [facility] 04-30-2025 09:34-0400 Diastolic blood pressure 83 mm[Hg] Injection Wstr Work Phone: [facility] 04-30-2025 09:34-0400 Heart rate 96 /min Injection Wstr Work Phone: [facility] 04-30-2025 09:34-0400 SaO2% (BldA) [Mass fraction] 96 % Injection Wstr Work Phone: [facility] 04-30-2025 09:34-0400 Systolic blood pressure 173 mm[Hg] Injection Wstr Work Phone: [facility] 04-02-2025 10:37-0400 Body mass index (BMI) [Ratio] 39.88 kg/m2 Nabila Gleason Work Phone: [facility] 04-02-2025 10:37-0400 Body temperature 98.4 [degF] Nabila Gleason Work Phone: [facility] 04-02-2025 10:37-0400 Body weight 124.29 kg Nabila Gleason Work Phone: [facility] 04-02-2025 10:37-0400 Diastolic blood pressure 76 mm[Hg] Nabila Gleason Work Phone: [facility] 04-02-2025 10:37-0400 Heart rate 96 /min Nabila Gleason Work Phone: [facility] 04-02-2025 10:37-0400 Respiratory rate 12 /min Nabila Gleason Work Phone: [facility] 04-02-2025 10:37-0400 SaO2% (BldA) [Mass fraction] 93 % Nabila Gleason Work Phone: [facility] 04-02-2025 10:37-0400 Systolic blood pressure 155 mm[Hg] Nabila Gleason Work Phone: [facility] 03-25-2025 09:31-0400 Body mass index (BMI) [Ratio] 38.75 kg/m2 Dee Ashley MD Work Phone: [facility] 03-25-2025 09:31-0400 Body weight 120.75 kg Dee Ashley MD Work Phone: [facility] 03-25-2025 09:31-0400 Diastolic blood pressure 82 mm[Hg] Dee Ashley MD Work Phone: [facility] 03-25-2025 09:31-0400 Heart rate 90 /min Dee Ashley MD Work Phone: [facility] 03-25-2025 09:31-0400 Respiratory rate 16 /min Dee Ashley MD Work Phone: [facility] 03-25-2025 09:31-0400 SaO2% (BldA) [Mass fraction] 94 % Dee Ashley MD Work Phone: [facility] 03-25-2025 09:31-0400 Systolic blood pressure 158 mm[Hg] Dee Ashley MD Work Phone: [facility] 03-05-2025 15:13-0400 Body mass index (BMI) [Ratio] 40.32 kg/m2 Injection Wstr Work Phone: [facility] 03-05-2025 15:13-0400 Body temperature 98.01 [degF] Injection Wstr Work Phone: [facility] 03-05-2025 15:13-0400 Body weight 125.65 kg Injection Wstr Work Phone: [facility] 03-05-2025 15:13-0400 Diastolic blood pressure 92 mm[Hg] Injection Wstr Work Phone: [facility] 03-05-2025 15:13-0400 Heart rate 115 /min Injection Wstr Work Phone: [facility] 03-05-2025 15:13-0400 Systolic blood pressure 169 mm[Hg] Injection Wstr Work Phone: [facility] 02-27-2025 12:47-0400 Body height 176.5 cm Christoph Chavis MD Work Phone: [facility] 02-27-2025 12:47-0400 Body mass index (BMI) [Ratio] 39.45 kg/m2 Christoph Chavis MD Work Phone: [facility] 02-27-2025 12:47-0400 Body weight 122.92 kg Christoph Chavis MD Work Phone: [facility] 02-27-2025 12:47-0400 Diastolic blood pressure 80 mm[Hg] Christoph Chavis MD Work Phone: [facility] 02-27-2025 12:47-0400 Heart rate 85 /min Christoph Chavis MD Work Phone: [facility] 02-27-2025 12:47-0400 Systolic blood pressure 160 mm[Hg] Christoph Chavis MD Work Phone: [facility] 02-13-2025 11:58-0400 Body mass index (BMI) [Ratio] 41.12 kg/m2 Nicky Pierson MD Work Phone: [facility] 02-13-2025 11:58-0400 Body temperature 97.59 [degF] Nicky Pierson MD Work Phone: [facility] 02-13-2025 11:58-0400 Body weight 124.5 kg Nicky Pierson MD Work Phone: [facility] 02-13-2025 11:58-0400 Diastolic blood pressure 84 mm[Hg] Nicky Pierson MD Work Phone: [facility] 02-13-2025 11:58-0400 Heart rate 86 /min Nicky Pierson MD Work Phone: [facility] 02-13-2025 11:58-0400 Respiratory rate 18 /min Nicky Pierson MD Work Phone: [facility] 02-13-2025 11:58-0400 SaO2% (BldA) [Mass fraction] 95 % Nicky Pierson MD Work Phone: [facility] 02-13-2025 11:58-0400 Systolic blood pressure 158 mm[Hg] Nicky Pierson MD Work Phone: [facility] 02-05-2025 15:16-0400 Body mass index (BMI) [Ratio] 40.45 kg/m2 Injection Wstr Work Phone: [facility] 02-05-2025 15:16-0400 Body temperature 97.39 [degF] Injection Wstr Work Phone: [facility] 02-05-2025 15:16-0400 Body weight 122.47 kg Injection Wstr Work Phone: [facility] 02-05-2025 15:16-0400 Diastolic blood pressure 79 mm[Hg] Injection Wstr Work Phone: [facility] 02-05-2025 15:16-0400 Heart rate 90 /min Injection Wstr Work Phone: [facility] 02-05-2025 15:16-0400 SaO2% (BldA) [Mass fraction] 93 % Injection Wstr Work Phone: [facility] 02-05-2025 15:16-0400 Systolic blood pressure 149 mm[Hg] Injection Wstr Work Phone: [facility] 01-19-2025 10:10-0400 Body mass index (BMI) [Ratio] 39.85 kg/m2 Dee Ashley MD Work Phone: [facility] 01-19-2025 10:10-0400 Body weight 120.66 kg Dee Ashley MD Work Phone: [facility] 01-19-2025 10:10-0400 Diastolic blood pressure 94 mm[Hg] Dee Ashley MD Work Phone: [facility] 01-19-2025 10:10-0400 Heart rate 89 /min Dee Ashley MD Work Phone: [facility] 01-19-2025 10:10-0400 Respiratory rate 16 /min Dee Ashley MD Work Phone: [facility] 01-19-2025 10:10-0400 SaO2% (BldA) [Mass fraction] 95 % Dee Ashley MD Work Phone: [facility] 01-19-2025 10:10-0400 Systolic blood pressure 170 mm[Hg] Dee Ashley MD Work Phone: [facility] 01-08-2025 15:10-0400 Body mass index (BMI) [Ratio] 39.63 kg/m2 Injection Wstr Work Phone: [facility] 01-08-2025 15:10-0400 Body temperature 97 [degF] Injection Wstr Work Phone: [facility] 01-08-2025 15:10-0400 Body weight 119.98 kg Injection Wstr Work Phone: [facility] 01-08-2025 15:10-0400 Diastolic blood pressure 87 mm[Hg] Injection Wstr Work Phone: [facility] 01-08-2025 15:10-0400 Heart rate 118 /min Injection Wstr Work Phone: [facility] 01-08-2025 15:10-0400 SaO2% (BldA) [Mass fraction] 95 % Injection Wstr Work Phone: [facility] 01-08-2025 15:10-0400 Systolic blood pressure 138 mm[Hg] Injection Wstr Work Phone: [facility] 12-19-2024 09:55-0400 Body height 174 cm Dee Ashley MD Work Phone: [facility] 12-19-2024 09:55-0400 Body mass index (BMI) [Ratio] 37.63 kg/m2 Dee Ashley MD Work Phone: [facility] 12-19-2024 09:55-0400 Body temperature 97.5 [degF] Dee Ashley MD Work Phone: [facility] 12-19-2024 09:55-0400 Body weight 113.94 kg Dee Ashley MD Work Phone: [facility] 12-19-2024 09:55-0400 Diastolic blood pressure 76 mm[Hg] Dee Ashley MD Work Phone: [facility] 12-19-2024 09:55-0400 Heart rate 81 /min Dee Ashley MD Work Phone: [facility] 12-19-2024 09:55-0400 Respiratory rate 16 /min Dee Ashley MD Work Phone: [facility] 12-19-2024 09:55-0400 SaO2% (BldA) [Mass fraction] 97 % Dee Ashley MD Work Phone: [facility] 12-19-2024 09:55-0400 Systolic blood pressure 128 mm[Hg] Dee Ashley MD Work Phone: [facility] 12-11-2024 15:24-0400 Body mass index (BMI) [Ratio] 35.66 kg/m2 Injection Wstr Work Phone: [facility] 12-11-2024 15:24-0400 Body temperature 97.39 [degF] Injection Wstr Work Phone: [facility] 12-11-2024 15:24-0400 Body weight 107.96 kg Injection Wstr Work Phone: [facility] 12-11-2024 15:24-0400 Diastolic blood pressure 81 mm[Hg] Injection Wstr Work Phone: [facility] 12-11-2024 15:24-0400 Heart rate 82 /min [facility] [facility] 12-11-2024 15:24-0400 SaO2% (BldA) [Mass fraction] 96 % Injection Wstr Work Phone: [facility] 12-11-2024 15:24-0400 Systolic blood pressure 130 mm[Hg] Injection Wstr Work Phone: [facility] 11-13-2024 15:25-0500 Body mass index (BMI) [Ratio] 34.76 kg/m2 Injection Wstr Work Phone: [facility] 11-13-2024 15:25-0500 Body temperature 97.9 [degF] Injection Wstr Work Phone: [facility] 11-13-2024 15:25-0500 Body weight 105.23 kg Injection Wstr Work Phone: [facility] 11-13-2024 15:25-0500 Diastolic blood pressure 69 mm[Hg] Injection Wstr Work Phone: [facility] 11-13-2024 15:25-0500 Heart rate 71 /min Injection Wstr Work Phone: [facility] 11-13-2024 15:25-0500 SaO2% (BldA) [Mass fraction] 94 % Injection Wstr Work Phone: [facility] 11-13-2024 15:25-0500 Systolic blood pressure 102 mm[Hg] Injection Wstr Work Phone: [facility] 11-05-2024 13:00-0500 Body temperature 97.5 [degF] Treatment Wstr Work Phone: [facility] 11-05-2024 13:00-0500 Diastolic blood pressure 72 mm[Hg] Treatment Wstr Work Phone: [facility] 11-05-2024 13:00-0500 Heart rate 72 /min Treatment Wstr Work Phone: [facility] 11-05-2024 13:00-0500 Systolic blood pressure 122 mm[Hg] Treatment Wstr Work Phone: [facility] 11-03-2024 10:00-0500 Body temperature 98.2 [degF] Treatment Wstr Work Phone: [facility] 11-03-2024 10:00-0500 Diastolic blood pressure 70 mm[Hg] Treatment Wstr Work Phone: [facility] 11-03-2024 10:00-0500 Heart rate 70 /min Treatment Wstr Work Phone: [facility] 11-03-2024 10:00-0500 Respiratory rate 18 /min Treatment Wstr Work Phone: [facility] 11-03-2024 10:00-0500 SaO2% (BldA) [Mass fraction] 95 % Treatment Wstr Work Phone: [facility] 11-03-2024 10:00-0500 Systolic blood pressure 112 mm[Hg] Treatment Wstr Work Phone: [facility] 10-31-2024 10:08-0500 Body temperature 97.3 [degF] Treatment Wstr Work Phone: [facility] 10-31-2024 10:08-0500 Diastolic blood pressure 82 mm[Hg] Treatment Wstr Work Phone: [facility] 10-31-2024 10:08-0500 Heart rate 69 /min Treatment Wstr Work Phone: [facility] 10-31-2024 10:08-0500 Respiratory rate 18 /min Treatment Wstr Work Phone: [facility] 10-31-2024 10:08-0500 SaO2% (BldA) [Mass fraction] 96 % Treatment Wstr Work Phone: [facility] 10-31-2024 10:08-0500 Systolic blood pressure 132 mm[Hg] Treatment Wstr Work Phone: [facility] 10-29-2024 10:23-0500 Body temperature 96.8 [degF] Treatment Wstr Work Phone: [facility] 10-29-2024 10:23-0500 Diastolic blood pressure 70 mm[Hg] Treatment Wstr Work Phone: [facility] 10-29-2024 10:23-0500 Heart rate 70 /min Treatment Wstr Work Phone: [facility] 10-29-2024 10:23-0500 Respiratory rate 14 /min Treatment Wstr Work Phone: [facility] 10-29-2024 10:23-0500 SaO2% (BldA) [Mass fraction] 97 % Treatment Wstr Work Phone: [facility] 10-29-2024 10:23-0500 Systolic blood pressure 117 mm[Hg] Treatment Wstr Work Phone: [facility] 10-27-2024 09:37-0500 Body temperature 96.91 [degF] Treatment Wstr Work Phone: [facility] 10-27-2024 09:37-0500 Diastolic blood pressure 79 mm[Hg] Treatment Wstr Work Phone: [facility] 10-27-2024 09:37-0500 Heart rate 71 /min Treatment Wstr Work Phone: [facility] 10-27-2024 09:37-0500 SaO2% (BldA) [Mass fraction] 92 % Treatment Wstr Work Phone: [facility] 10-27-2024 09:37-0500 Systolic blood pressure 132 mm[Hg] Treatment Wstr Work Phone: [facility] 10-16-2024 13:26-0500 Body mass index (BMI) [Ratio] 34.01 kg/m2 Nabilajermaine Gleason Work Phone: [facility] 10-16-2024 13:26-0500 Body temperature 97.11 [degF] Nabilajermaine Gleason Work Phone: [facility] 10-16-2024 13:26-0500 Body weight 102.97 kg Nabilajermaine Gleason Work Phone: [facility] 10-16-2024 13:26-0500 Diastolic blood pressure 70 mm[Hg] Nabila Gleason Work Phone: [facility] 10-16-2024 13:26-0500 Heart rate 72 /min Nabilajermaine Gleason Work Phone: [facility] 10-16-2024 13:26-0500 SaO2% (BldA) [Mass fraction] 99 % Nabila Gleason Work Phone: [facility] 10-16-2024 13:26-0500 Systolic blood pressure 104 mm[Hg] Nabila Gleason Work Phone: [facility] 10-09-2024 12:55-0500 Body mass index (BMI) [Ratio] 32.96 kg/m2 Lino Older [employer] Work Phone: [facility] 10-09-2024 12:55-0500 Body weight 99.79 kg Lino Older [employer] Work Phone: [facility] 10-09-2024 12:55-0500 Diastolic blood pressure 70 mm[Hg] Lino Older [employer] Work Phone: [facility] 10-09-2024 12:55-0500 Heart rate 70 /min Lino Older [employer] Work Phone: [facility] 10-09-2024 12:55-0500 Respiratory rate 16 /min Lino Older [employer] Work Phone: [facility] 10-09-2024 12:55-0500 SaO2% (BldA) [Mass fraction] 97 % Lino Older [employer] Work Phone: [facility] 10-09-2024 12:55-0500 Systolic blood pressure 138 mm[Hg] Lino Older [employer] Work Phone: [facility] 08-25-2024 10:14-0500 Body mass index (BMI) [Ratio] 36.34 kg/m2 Dee Ashley MD Work Phone: [facility] 08-25-2024 10:14-0500 Body weight 110 kg Dee Ashley MD Work Phone: [facility] 08-25-2024 10:14-0500 Diastolic blood pressure 68 mm[Hg] Dee Ashley MD Work Phone: [facility] 08-25-2024 10:14-0500 Heart rate 70 /min Dee Ashley MD Work Phone: [facility] 08-25-2024 10:14-0500 Respiratory rate 16 /min Dee Ashley MD Work Phone: [facility] 08-25-2024 10:14-0500 Systolic blood pressure 104 mm[Hg] Dee Ashley MD Work Phone: [facility] 07-29-2024 10:21-0500 Body height 174 cm Natalia Bogner PA-C Work Phone: [facility] 07-29-2024 10:21-0500 Body mass index (BMI) [Ratio] 35.21 kg/m2 Natalia Bogner PA-C Work Phone: [facility] 07-29-2024 10:21-0500 Body weight 106.59 kg Natalia Bogner PA-C Work Phone: [facility] 07-29-2024 10:21-0500 Diastolic blood pressure 56 mm[Hg] Natalia Bogner PA-C Work Phone: [facility] 07-29-2024 10:21-0500 Heart rate 85 /min Natalia Bogner PA-C Work Phone: [facility] 07-29-2024 10:21-0500 Respiratory rate 14 /min Natalia Bogner PA-C Work Phone: [facility] 07-29-2024 10:21-0500 SaO2% (BldA) [Mass fraction] 97 % Natalia Bogner PA-C Work Phone: [facility] 07-29-2024 10:21-0500 Systolic blood pressure 106 mm[Hg] Natalia Bogner PA-C Work Phone: [facility] 07-18-2024 10:06-0500 Body mass index (BMI) [Ratio] 34.55 kg/m2 Dee Ashley MD Work Phone: [facility] 07-18-2024 10:06-0500 Body weight 104.6 kg Dee Ashley MD Work Phone: [facility] 07-18-2024 10:06-0500 Diastolic blood pressure 72 mm[Hg] Dee Ashley MD Work Phone: [facility] 07-18-2024 10:06-0500 Heart rate 61 /min Dee Ashley MD Work Phone: [facility] 07-18-2024 10:06-0500 SaO2% (BldA) [Mass fraction] 97 % Dee Ashley MD Work Phone: [facility] 07-18-2024 10:06-0500 Systolic blood pressure 142 mm[Hg] Dee Ashley MD Work Phone: [facility] 06-20-2024 11:08-0400 Body mass index (BMI) [Ratio] 37.6 kg/m2 Lino Older [employer] Work Phone: [facility] 06-20-2024 11:08-0400 Body weight 113.85 kg Lino Older [employer] Work Phone: [facility] 06-20-2024 11:08-0400 Diastolic blood pressure 78 mm[Hg] Lino Older [employer] Work Phone: [facility] 06-20-2024 11:08-0400 Heart rate 72 /min Lino Older [employer] Work Phone: [facility] 06-20-2024 11:08-0400 Respiratory rate 16 /min Lino Older [employer] Work Phone: [facility] 06-20-2024 11:08-0400 SaO2% (BldA) [Mass fraction] 96 % Lino Older [employer] Work Phone: [facility] 06-20-2024 11:08-0400 Systolic blood pressure 130 mm[Hg] Lino Older [employer] Work Phone: [facility] 03-20-2024 10:15-0400 Body mass index (BMI) [Ratio] 34.76 kg/m2 Lino Older [employer] Work Phone: [facility] 03-20-2024 10:15-0400 Body weight 105.23 kg Lino Older [employer] Work Phone: [facility] 03-20-2024 10:15-0400 Diastolic blood pressure 72 mm[Hg] Lino Older [employer] Work Phone: [facility] 03-20-2024 10:15-0400 Heart rate 90 /min Lino Older [employer] Work Phone: [facility] 03-20-2024 10:15-0400 Respiratory rate 16 /min Lino Older [employer] Work Phone: [facility] 03-20-2024 10:15-0400 SaO2% (BldA) [Mass fraction] 96 % Lino Older [employer] Work Phone: [facility] 03-20-2024 10:15-0400 Systolic blood pressure 128 mm[Hg] Lino Older [employer] Work Phone: [facility] 03-18-2024 10:08-0400 Body mass index (BMI) [Ratio] 34.59 kg/m2 Vilma Philip [employer] Work Phone: [facility] 03-18-2024 10:08-0400 Body temperature 97.2 [degF] Vilma Philip [employer] Work Phone: [facility] 03-18-2024 10:08-0400 Body weight 104.74 kg Vilma Philip [employer] Work Phone: [facility] 03-18-2024 10:08-0400 Diastolic blood pressure 74 mm[Hg] Vilma Philip [employer] Work Phone: [facility] 03-18-2024 10:08-0400 Heart rate 81 /min Vilma Philip [employer] Work Phone: [facility] 03-18-2024 10:08-0400 SaO2% (BldA) [Mass fraction] 97 % Saragosa Philip [employer] Work Phone: [facility] 03-18-2024 10:08-0400 Systolic blood pressure 119 mm[Hg] Vilma Philip [employer] Work Phone: [facility] 02-25-2024 11:23-0400 Body mass index (BMI) [Ratio] 34.38 kg/m2 Dileep Childs [employer] Work Phone: [facility] 02-25-2024 11:23-0400 Body temperature 97.59 [degF] Dileep Childs [employer] Work Phone: [facility] 02-25-2024 11:23-0400 Body weight 104.1 kg Dileep Childs [employer] Work Phone: [facility] 02-25-2024 11:23-0400 Diastolic blood pressure 72 mm[Hg] iDleep Childs [employer]ITER[employer] Work Phone: [facility] 02-25-2024 11:23-0400 Heart rate 76 /min Dileep Childs [employer] Work Phone: [facility] 02-25-2024 11:23-0400 SaO2% (BldA) [Mass fraction] 99 % Dileep Childs [employer] Work Phone: [facility] 02-25-2024 11:23-0400 Systolic blood pressure 112 mm[Hg] Dileep Childs [employer] Work Phone: [facility] 02-05-2024 10:50-0400 Diastolic blood pressure 101 mm[Hg] Rocky Ortega MD Work Phone: [facility] 02-05-2024 10:50-0400 Heart rate 66 /min Rocky Ortega MD Work Phone: [facility] 02-05-2024 10:50-0400 Respiratory rate 16 /min Rocky Ortega MD Work Phone: [facility] 02-05-2024 10:50-0400 SaO2% (BldA) [Mass fraction] 96 % Rocky Ortega MD Work Phone: [facility] 02-05-2024 10:50-0400 Systolic blood pressure 138 mm[Hg] Rocky Ortega MD Work Phone: [facility] 02-05-2024 10:30-0400 Body temperature 98.1 [degF] Rocky Ortega MD Work Phone: [facility] 02-05-2024 09:08-0400 Body height 174 cm Rocky Ortega MD Work Phone: [facility] 02-05-2024 09:08-0400 Body mass index (BMI) [Ratio] 34.76 kg/m2 Rocky Ortega MD Work Phone: [facility] 02-05-2024 09:08-0400 Body weight 105.23 kg Rocky Ortega MD Work Phone: [facility] 01-25-2024 14:48-0400 Body temperature 97.59 [degF] Treatment Wstr Work Phone: [facility] 01-25-2024 14:48-0400 Diastolic blood pressure 68 mm[Hg] Treatment Wstr Work Phone: [facility] 01-25-2024 14:48-0400 Heart rate 87 /min Treatment Wstr Work Phone: [facility] 01-25-2024 14:48-0400 Respiratory rate 18 /min Treatment Wstr Work Phone: [facility] 01-25-2024 14:48-0400 SaO2% (BldA) [Mass fraction] 97 % Treatment Wstr Work Phone: [facility] 01-25-2024 14:48-0400 Systolic blood pressure 132 mm[Hg] Treatment Wstr Work Phone: [facility] 01-23-2024 14:39-0400 Body temperature 97.9 [degF] Treatment Wstr Work Phone: [facility] 01-23-2024 14:39-0400 Diastolic blood pressure 84 mm[Hg] Treatment Wstr Work Phone: [facility] 01-23-2024 14:39-0400 Heart rate 80 /min Treatment Wstr Work Phone: [facility] 01-23-2024 14:39-0400 Respiratory rate 16 /min Treatment Wstr Work Phone: [facility] 01-23-2024 14:39-0400 SaO2% (BldA) [Mass fraction] 96 % Treatment Wstr Work Phone: [facility] 01-23-2024 14:39-0400 Systolic blood pressure 138 mm[Hg] Treatment Wstr Work Phone: [facility] 01-21-2024 09:58-0400 Body mass index (BMI) [Ratio] 34.61 kg/m2 Keyshawn Ordonez MD Work Phone: [facility] 01-21-2024 09:58-0400 Body weight 104.78 kg Keyshawn Ordonez MD Work Phone: [facility] 01-21-2024 09:58-0400 Diastolic blood pressure 71 mm[Hg] Keyshawn Ordonez MD Work Phone: [facility] 01-21-2024 09:58-0400 Heart rate 87 /min Keyshawn Ordonez MD Work Phone: [facility] 01-21-2024 09:58-0400 SaO2% (BldA) [Mass fraction] 97 % Keyshawn Ordonez MD Work Phone: [facility] 01-21-2024 09:58-0400 Systolic blood pressure 129 mm[Hg] Keyshawn Ordonez MD Work Phone: [facility] 01-21-2024 09:15-0400 Body temperature 97 [degF] Treatment Wstr Work Phone: [facility] 01-21-2024 09:15-0400 Diastolic blood pressure 73 mm[Hg] Treatment Wstr Work Phone: [facility] 01-21-2024 09:15-0400 Heart rate 78 /min Treatment Wstr Work Phone: [facility] 01-21-2024 09:15-0400 Respiratory rate 18 /min Treatment Wstr Work Phone: [facility] 01-21-2024 09:15-0400 SaO2% (BldA) [Mass fraction] 97 % Treatment Wstr Work Phone: [facility] 01-21-2024 09:15-0400 Systolic blood pressure 128 mm[Hg] Treatment Wstr Work Phone: [facility] 01-17-2024 14:44-0400 Body temperature 97.39 [degF] Treatment Wstr Work Phone: [facility] 01-17-2024 14:44-0400 Diastolic blood pressure 77 mm[Hg] Treatment Wstr Work Phone: [facility] 01-17-2024 14:44-0400 Heart rate 80 /min Treatment Wstr Work Phone: [facility] 01-17-2024 14:44-0400 SaO2% (BldA) [Mass fraction] 98 % Treatment Wstr Work Phone: [facility] 01-17-2024 14:44-0400 Systolic blood pressure 130 mm[Hg] Treatment Wstr Work Phone: [facility] 01-15-2024 15:27-0400 Diastolic blood pressure 70 mm[Hg] Treatment Wstr Work Phone: [facility] 01-15-2024 15:27-0400 Heart rate 96 /min Treatment Wstr Work Phone: [facility] 01-15-2024 15:27-0400 Respiratory rate 16 /min Treatment Wstr Work Phone: [facility] 01-15-2024 15:27-0400 SaO2% (BldA) [Mass fraction] 97 % Treatment Wstr Work Phone: [facility] 01-15-2024 15:27-0400 Systolic blood pressure 130 mm[Hg] Treatment Wstr Work Phone: [facility] 01-15-2024 14:48-0400 Body temperature 97.81 [degF] Treatment Wstr Work Phone: [facility] 01-02-2024 12:48-0400 Body mass index (BMI) [Ratio] 34.84 kg/m2 Nabila Gleason Work Phone: [facility] 01-02-2024 12:48-0400 Body temperature 97.39 [degF] Nabila Gleason Work Phone: [facility] 01-02-2024 12:48-0400 Body weight 105.46 kg Nabila Gleason Work Phone: [facility] 01-02-2024 12:48-0400 Diastolic blood pressure 75 mm[Hg] Nabilajermaine Gleason Work Phone: [facility] 01-02-2024 12:48-0400 Heart rate 87 /min Nabila Gleason Work Phone: [facility] 01-02-2024 12:48-0400 SaO2% (BldA) [Mass fraction] 99 % Nabila Gleason Work Phone: [facility] 01-02-2024 12:48-0400 Systolic blood pressure 117 mm[Hg] Nabila Gleason Work Phone: [facility] 11-09-2023 10:40-0500 Body weight 106.14 kg Lino Older [employer] Work Phone: [facility] 11-09-2023 10:40-0500 Diastolic blood pressure 78 mm[Hg] Lino Older [employer] Work Phone: [facility] 11-09-2023 10:40-0500 Heart rate 80 /min Lino Older [employer] Work Phone: [facility] 11-09-2023 10:40-0500 Respiratory rate 16 /min Lino Older [employer] Work Phone: [facility] 11-09-2023 10:40-0500 Systolic blood pressure 128 mm[Hg] Lino Older [employer] Work Phone: [facility] 11-06-2023 14:59-0500 Body height 174 cm Jennifer BOWENS-C Work Phone: [facility] 11-06-2023 14:59-0500 Body weight 107.5 kg Jennifer Kalka PA-C Work Phone: [facility] 11-06-2023 14:59-0500 Diastolic blood pressure 76 mm[Hg] Jennifer Kalka PA-C Work Phone: [facility] 11-06-2023 14:59-0500 Heart rate 82 /min Jennifer Kalka PA-C Work Phone: [facility] 11-06-2023 14:59-0500 Systolic blood pressure 132 mm[Hg] Jennifer Kalka PA-C Work Phone: [facility] 09-21-2023 14:51-0500 Body height 175.3 cm Christoph Chavis MD Work Phone: [facility] 09-21-2023 14:51-0500 Body weight 105.69 kg Christoph Chavis MD Work Phone: [facility] 09-21-2023 14:51-0500 Diastolic blood pressure 90 mm[Hg] Christoph Chavis MD Work Phone: [facility] 09-21-2023 14:51-0500 Heart rate 78 /min Christoph Chavis MD Work Phone: [facility] 09-21-2023 14:51-0500 Systolic blood pressure 150 mm[Hg] Christoph Chavis MD Work Phone: [facility] 05-25-2023 13:04-0400 Body weight 105.14 kg Lillian Denbow PA-C Work Phone: [facility] 05-25-2023 13:04-0400 Diastolic blood pressure 66 mm[Hg] Lillian Denbow PA-C Work Phone: [facility] 05-25-2023 13:04-0400 Heart rate 88 /min Lillian Denbow PA-C Work Phone: [facility] 05-25-2023 13:04-0400 Respiratory rate 18 /min Lillian Denbow PA-C Work Phone: [facility] 05-25-2023 13:04-0400 Systolic blood pressure 120 mm[Hg] Lillian Hanks PA-C Work Phone: [facility] 02-21-2023 13:55-0400 Body height 172.7 cm Dee Ashley MD Work Phone: [facility] 02-21-2023 13:55-0400 Body temperature 97.39 [degF] Dee Ashley MD Work Phone: [facility] 02-21-2023 13:55-0400 Body weight 106.14 kg Dee Ashley MD Work Phone: [facility] 02-21-2023 13:55-0400 Diastolic blood pressure 70 mm[Hg] Dee Ashley MD Work Phone: [facility] 02-21-2023 13:55-0400 Heart rate 71 /min Dee Ashley MD Work Phone: [facility] 02-21-2023 13:55-0400 Respiratory rate 14 /min Dee Ashley MD Work Phone: [facility] 02-21-2023 13:55-0400 SaO2% (BldA) [Mass fraction] 97 % Dee Ashley MD Work Phone: [facility] 02-21-2023 13:55-0400 Systolic blood pressure 122 mm[Hg] Dee Ashley MD Work Phone: [facility] 11-21-2022 13:48-0400 Body height 172.7 cm Dee Ashley MD Work Phone: [facility] 11-21-2022 13:48-0400 Body temperature 97 [degF] Dee Ashley MD Work Phone: [facility] 11-21-2022 13:48-0400 Body weight 111.13 kg Dee Ashley MD Work Phone: [facility] 11-21-2022 13:48-0400 Diastolic blood pressure 58 mm[Hg] Dee Ashley MD Work Phone: [facility] 11-21-2022 13:48-0400 Heart rate 86 /min Dee Ashley MD Work Phone: [facility] 11-21-2022 13:48-0400 Respiratory rate 14 /min Dee Ashley MD Work Phone: [facility] 11-21-2022 13:48-0400 SaO2% (BldA) [Mass fraction] 98 % Dee Ashley MD Work Phone: [facility] 11-21-2022 13:48-0400 Systolic blood pressure 118 mm[Hg] Dee Ashley MD Work Phone: [facility] 11-13-2022 11:01-0500 Body weight 112.95 kg Keyshawn Ordonez MD Work Phone: [facility] 11-13-2022 11:01-0500 Diastolic blood pressure 80 mm[Hg] Keyshawn Ordonez MD Work Phone: [facility] 11-13-2022 11:01-0500 Heart rate 80 /min Keyshawn Ordonez MD Work Phone: [facility] 11-13-2022 11:01-0500 Respiratory rate 18 /min Keyshawn Ordonez MD Work Phone: [facility] 11-13-2022 11:01-0500 Systolic blood pressure 120 mm[Hg] Keyshawn Ordonez MD Work Phone: [facility] 08-22-2022 11:40-0500 Body height 172.7 cm Dee Ashley MD Work Phone: [facility] 08-22-2022 11:40-0500 Body temperature 98.29 [degF] Dee Ashley MD Work Phone: [facility] 08-22-2022 11:40-0500 Body weight 113.85 kg Dee Ashley MD Work Phone: [facility] 08-22-2022 11:40-0500 Diastolic blood pressure 70 mm[Hg] Dee Ashley MD Work Phone: [facility] 08-22-2022 11:40-0500 Heart rate 89 /min Dee Ashley MD Work Phone: [facility] 08-22-2022 11:40-0500 Respiratory rate 16 /min Dee Ashley MD Work Phone: [facility] 08-22-2022 11:40-0500 SaO2% (BldA) [Mass fraction] 96 % Dee Ashley MD Work Phone: [facility] 08-22-2022 11:40-0500 Systolic blood pressure 114 mm[Hg] Dee Ashley MD Work Phone: [facility] 05-09-2022 09:55-0400 Body height 175 cm Angeles Floyd MD Work Phone: [facility] 05-09-2022 09:55-0400 Body temperature 97.59 [degF] Angeles Floyd MD Work Phone: [facility] 05-09-2022 09:55-0400 Body weight 113.17 kg Angeles Floyd MD Work Phone: [facility] 05-09-2022 09:55-0400 Diastolic blood pressure 69 mm[Hg] Angeles Floyd MD Work Phone: [facility] 05-09-2022 09:55-0400 Heart rate 101 /min Angeles Floyd MD Work Phone: [facility] 05-09-2022 09:55-0400 SaO2% (BldA) [Mass fraction] 95 % Angeles Floyd MD Work Phone: [facility] 05-09-2022 09:55-0400 Systolic blood pressure 123 mm[Hg] Angeles Floyd MD Work Phone: [facility] 05-01-2022 13:51-0400 Body weight 112.04 kg Keyshawn Ordonez MD Work Phone: [facility] 05-01-2022 13:51-0400 Diastolic blood pressure 70 mm[Hg] Keyshawn Ordonez MD Work Phone: [facility] 05-01-2022 13:51-0400 Heart rate 80 /min Keyshawn Ordonez MD Work Phone: [facility] 05-01-2022 13:51-0400 Systolic blood pressure 128 mm[Hg] Keyshawn Ordonez MD Work Phone: [facility] 02-20-2022 13:54-0400 Body height 175.3 cm Dee Ashley MD Work Phone: [facility] 02-20-2022 13:54-0400 Body temperature 97.2 [degF] Dee Ashley MD Work Phone: [facility] 02-20-2022 13:54-0400 Body weight 110.22 kg Dee Ashley MD Work Phone: [facility] 02-20-2022 13:54-0400 Diastolic blood pressure 62 mm[Hg] Dee Ashley MD Work Phone: [facility] 02-20-2022 13:54-0400 Heart rate 93 /min Dee Ashley MD Work Phone: [facility] 02-20-2022 13:54-0400 Respiratory rate 16 /min Dee Ashley MD Work Phone: [facility] 02-20-2022 13:54-0400 SaO2% (BldA) [Mass fraction] 95 % Dee Ashley MD Work Phone: [facility] 02-20-2022 13:54-0400 Systolic blood pressure 110 mm[Hg] Dee Ashley MD Work Phone: [facility] 01-27-2022 14:08-0400 Body height 175.3 cm Christoph Chavis MD Work Phone: [facility] 01-27-2022 14:08-0400 Body weight 109.23 kg Christoph Chavis MD Work Phone: [facility] 01-27-2022 14:08-0400 Diastolic blood pressure 78 mm[Hg] Christoph Chavis MD Work Phone: [facility] 01-27-2022 14:08-0400 Heart rate 86 /min Christoph Chavis MD Work Phone: [facility] 01-27-2022 14:08040 Systolic blood pressure 145 mm[Hg] Christoph Chavis MD Work Phone: [facility] Encounters Encounter Date Encounter Type Care Provider Facility Start: 07-20-2025 End: 07-20-2025 ambulatory DEE GANTA Facility:[facility] Start: 07-17-2025 End: 07-17-2025 ambulatory DEE GANTA Facility:[facility] Start: 07-15-2025 End: 07-15-2025 ambulatory DEE GANTA Facility:[facility] Start: 07-13-2025 End: 07-13-2025 ambulatory DEE GANTA Facility:[facility] Start: 07-13-2025 End: 07-13-2025 ambulatory DEE GANTA Facility:[facility] Start: 07-09-2025 End: 07-09-2025 ambulatory DEE GANTA Facility:[facility] Start: 07-09-2025 End: 07-09-2025 ambulatory DEE GANTA Facility:[facility] Start: 07-08-2025 End: 07-08-2025 ambulatory DEE GANTA Facility:[facility] Start: 06-30-2025 End: 06-30-2025 ambulatory DEE GANTA Facility:[facility] Start: 06-26-2025 End: 06-26-2025 Evaluation and management of inpatient MELVIN JOHN Facility:[facility] Start: 06-25-2025 End: 06-27-2025 Evaluation and management of inpatient DEE GANTA Facility:[facility] Start: 06-25-2025 End: 06-25-2025 ambulatory DEE GANTA Facility:[facility] Start: 06-01-2025 End: 06-01-2025 ambulatory DEE GANTA Facility:[facility] Start: 05-28-2025 End: 05-28-2025 ambulatory DEE GANTA Facility:[facility] Start: 05-26-2025 End: 05-26-2025 Emergency department patient visit Dr. Dee Ashley MD Work Phone: -Emergency Department Work Phone: Start: 05-25-2025 End: 05-25-2025 Patient encounter procedure Keyshawn Ordonez MD Work Phone: Cardiology Comment on above: Essential hypertensi on; Dilated cardiomyopathy (HCC); Typical atrial flutter (HCC); Presence of cardiac pacemaker Start: 05-25-2025 End: 05-25-2025 [facility] Facility:[facility] Start: 05-12-2025 End: 05-12-2025 Office outpatient visit 25 minutes Dee Ashley MD Work Phone: [facility] [place] Comment on above: Essential hypertensi on (Primary Dx); Pure hypercholesterolemia; Weight gain Start: 05-12-2025 End: 05-12-2025 [facility] Facility:[facility] Start: 05-12-2025 End: 05-12-2025 [facility] Start: 05-05-2025 End: 05-05-2025 Office outpatient visit 25 minutes Dee Ashley MD Work Phone: [facility] [place] Comment on above: Essential hypertensi on (Primary Dx); Paroxysmal atrial fibrillation (HCC); Arthritis of right hip; Morbid obesity (HCC); Weight gain; Iron deficiency; Acquired hypothyroidism Start: 05-05-2025 End: 05-05-2025 [facility] Start: 04-30-2025 End: 04-30-2025 ambulatory Injection [facility] Work Phone: Hematology/Oncology Comment on above: B12 deficiency (Prim jovita Dx) Start: 04-28-2025 End: 04-29-2025 Refill Lino Bhandari APRN.CNP Work Phone: [facility] [place] Comment on above: Refill Request Start: 04-15-2025 End: 04-15-2025 ambulatory [facility] Facility:[facility] Start: 04-02-2025 End: 04-02-2025 Patient encounter procedure Nabila Gleason Work Phone: Hematology/Oncology Start: 04-02-2025 End: 04-02-2025 ambulatory Injection Zhang [facility] Work Phone: Hematology/Oncology Comment on above: B12 deficiency (Prim jovita Dx) B12 deficiency (Prim jovita Dx); Iron deficiency anemia, unspecified iron deficiency anemia type; Anemia, unspecified type Start: 03-25-2025 End: 03-25-2025 Subsequent hospital visit by physician Jean-Claude [facility] [place] Work Phone: Radiology Comment on above: Arthritis of right h ip [M16.11] Start: 03-25-2025 End: 03-25-2025 ambulatory [facility] Facility:[facility] Start: 03-25-2025 End: 03-25-2025 Office outpatient visit 25 minutes Dee Ashley MD Work Phone: [facility] [place] Comment on above: Arthritis of right h ip (Primary Dx); Type 2 diabetes mellitus with diabetic mononeuropathy, with long-term current use of insulin (HCC); Pain of right hip; Vitamin D deficiency; Anemia, unspecified type; Paroxysmal atrial fibrillation (HCC); Stage 3a chronic kidney disease (HCC) Start: 03-25-2025 End: 03-25-2025 ambulatory [facility] Facility:[facility] Start: 03-24-2025 End: 03-24-2025 ambulatory Marleni Linda [facility] Comment on above: Allied Health Visit (SUPD/SPC) Start: 03-23-2025 End: 03-23-2025 Orders Only Christoph Chavis MD Work Phone: Cardiology Comment on above: Nonischemic cardiomy opathy (HCC) (Primary Dx) Start: 03-10-2025 End: 03-10-2025 ambulatory CHRISTOPH CHAVIS Facility:[facility] Start: 03-09-2025 End: 03-09-2025 ambulatory Christoph Chavis MD Work Phone: Cardiology Comment on above: Patient Education (E PS - DCC) Start: 03-05-2025 End: 03-05-2025 ambulatory Injection Zhang [facility] Work Phone: Hematology/Oncology Comment on above: B12 deficiency (Prim jovita Dx) Start: 03-02-2025 End: 03-06-2025 Telephone encounter Christoph Chavis MD Work Phone: Cardiology Comment on above: Appointment (EPS_ DC C ) Start: 02-27-2025 End: 02-27-2025 Patient encounter procedure Christoph Chavis MD Work Phone: Cardiology Comment on above: Paroxysmal ventricul ar tachycardia (HCC) (Primary Dx); Atrial fibrillation, persistent (HCC); Benign essential HTN; Acute on chronic combined systolic and diastolic congestive heart failure (HCC); Class 2 severe obesity due to excess calories with serious comorbidity and body mass index (BMI) of 39.0 to 39.9 in adult (HCC); Type 2 diabetes mellitus with diabetic mononeuropathy, with long-term current use of insulin (HCC); [place] on CPAP; Encounter for current long-term use of anticoagulants; ICD (implantable cardioverter-defibrillator) in place Start: 02-27-2025 End: 02-27-2025 Subsequent hospital visit by physician [facility] Work Phone: Cardiology Comment on above: Pacemaker [Z95.0] Start: 02-27-2025 End: 02-27-2025 ambulatory CHRISTOPH CHAVIS Facility:[facility] Start: 02-24-2025 End: 02-24-2025 ambulatory Marleni Mckeon [facility] Comment on above: Allied Health Visit Start: 02-13-2025 End: 02-13-2025 Subsequent hospital visit by physician Jean-Claude [facility] [place] Work Phone: Radiology Comment on above: Foot pain, right [M7 9.671] Start: 02-13-2025 End: 02-13-2025 Office outpatient visit 15 minutes Nicky Pierson MD Work Phone: [facility] Comment on above: Traumatic ecchymosis of lower leg, right, initial encounter (Primary Dx); Foot pain, right; Acute right ankle pain Start: 02-13-2025 End: 02-13-2025 ambulatory DEE ASHLEY Facility:[facility] Start: 02-07-2025 End: 02-09-2025 Margarita Bhandari APRN.CNP Work Phone: Internal Medicine [place] Comment on above: Refill Request Start: 02-05-2025 End: 02-05-2025 ambulatory Injection Zhang [facility] Work Phone: Hematology/Oncology Comment on above: B12 deficiency (Prim jovita Dx) Start: 02-04-2025 End: 02-04-2025 Orders Only Nabila Gleason Work Phone: Hematology/Oncology Start: 01-23-2025 End: 03-25-2025 Follow-up encounter Dee Ashley MD Work Phone: [facility] [place] Start: 01-22-2025 End: 03-24-2025 Follow-up encounter Dee Ashley MD Work Phone: Geriatrics Comment on above: Results Start: 01-19-2025 End: 01-19-2025 Subsequent hospital visit by physician Xr [facility] [place] Work Phone: Radiology Comment on above: Fall, initial encoun ter [W19.XXXA] Start: 01-19-2025 End: 01-19-2025 [facility] Facility:[facility] Start: 01-19-2025 End: 01-19-2025 Office outpatient visit 25 minutes Dee Ashley MD Work Phone: [facility] [place] Comment on above: Vitamin D deficiency (Primary Dx); Type 2 diabetes mellitus with diabetic mononeuropathy, with long-term current use of insulin (HCC); Diabetic gastropathy (HCC); Iron deficiency; Pure hypercholesterolemia; Essential hypertension; Hypothyroidism, unspecified type; Psoriatic arthritis (HCC); SVT (supraventricular tachycardia) ([facility]); Morbid obesity (HCC); [place] on CPAP; Fall, sequela; Fall, initial encounter Start: 01-19-2025 End: 01-19-2025 ambulatory [facility] Facility:[facility] Start: 01-16-2025 End: 01-16-2025 ambulatory Marleni Mckeon [facility] Comment on above: Allied Health Visit (SUPD) Start: 01-15-2025 End: 01-15-2025 ambulatory [facility] Facility:[facility] Start: 01-08-2025 End: 01-08-2025 ambulatory Injection [facility] Work Phone: Hematology/Oncology Comment on above: B12 deficiency (Prim jovita Dx) Start: 01-01-2025 End: 01-05-2025 Telephone encounter Keyshawn Ordonez MD Work Phone: Cardiology Comment on above: Appointment Start: 12-30-2024 End: 12-30-2024 ambulatory DEE ASHLEY Facility:[facility] Start: 12-24-2024 End: 12-26-2024 Telephone encounter Dee Ashley MD Work Phone: [facility] [place] Comment on above: Anticoagulation (INR 1.5 12/24/24) Start: 12-19-2024 End: 02-18-2025 Follow-up encounter Dee Ashley MD Work Phone: [facility] [place] Start: 12-19-2024 End: 12-19-2024 [facility] Start: 12-19-2024 End: 12-19-2024 Patient encounter procedure Dee Ashley MD Work Phone: [facility] [place] Comment on above: Diabetic gastropathy (HCC) (Primary Dx); Chronic systolic heart failure (HCC); Psoriatic arthritis (HCC); Atrial fibrillation, persistent (HCC); Morbid obesity (HCC); 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); Stage 3a chronic kidney disease (HCC); Anemia, unspecified type; Other hypervolemia; Type 2 diabetes mellitus with stage 3a chronic kidney disease, with long-term current use of insulin (HCC); Weight gain; Fatigue, unspecified type; Hypokalemia; Nocturia; Pure hypercholesterolemia; Medicare annual wellness visit, subsequent Start: 12-17-2024 End: 12-18-2024 Telephone encounter Dee Ashley MD Work Phone: [facility] Medicine [place] Comment on above: Anticoagulation Start: 12-11-2024 End: 12-11-2024 ambulatory Injection Zhang [facility] Work Phone: Hematology/Oncology Comment on above: B12 deficiency (Prim jovita Dx) Start: 12-10-2024 End: 02-05-2025 Telephone encounter Dee Ashley MD Work Phone: [facility] [place] Comment on above: Coumadin/INR (INR 1 01/07/25) Start: 12-02-2024 End: 12-02-2024 [facility] Start: 12-02-2024 End: 12-02-2024 [facility] Comment on above: Allied Health Visit (Statin use review ) Start: 11-28-2024 End: 11-28-2024 ambulatory Dee Ashley MD Work Phone: [facility] [place] Start: 11-28-2024 End: 11-28-2024 Patient encounter procedure Dee Ashley MD Work Phone: [facility] [place] Comment on above: Population Health Na [facility] Outreach [facility] Start: 11-27-2024 End: 11-27-2024 ambulatory Dee Ashley MD Work Phone: [facility] Comment on above: Allied Health Visit (Medication Adherence Outreach/) Start: 11-19-2024 End: 01-19-2025 Follow-up encounter Dee Ashley MD Work Phone: Geriatrics Start: 11-19-2024 End: 12-10-2024 Telephone encounter Dee Ashley MD Work Phone: [facility] [place] Comment on above: Anticoagulation (11/08 11/04 INR 2.5) Start: 11-13-2024 End: 11-13-2024 ambulatory Injection Zhang [facility] Work Phone: Hematology/Oncology Comment on above: B12 deficiency (Prim jovita Dx) Start: 11-10-2024 End: 11-10-2024 Telephone encounter Dee Ashley MD Work Phone: [facility] [place] Comment on above: Patient Update Start: 11-10-2024 End: 11-10-2024 Emergency department patient visit Dee Ashley Facility:[facility] Start: 11-06-2024 End: 11-07-2024 Telephone encounter Dee Ashley MD Work Phone: [facility] [place] Comment on above: Anticoagulation Start: 11-05-2024 End: 11-05-2024 ambulatory Treatment Rm 15 Zhang [facility] Work Phone: Hematology/Oncology Comment on above: Iron deficiency anem ia secondary to inadequate dietary iron intake (Primary Dx); B12 deficiency; Iron malabsorption; Stage 3a chronic kidney disease (HCC) Start: 11-03-2024 End: 11-03-2024 ambulatory Treatment Rm 15 Zhang [facility] Work Phone: Hematology/Oncology Comment on above: B12 deficiency (Prim jovita Dx); Iron deficiency anemia secondary to inadequate dietary iron intake; Iron malabsorption; Stage 3a chronic kidney disease (HCC) Start: 10-31-2024 End: 10-31-2024 Telephone encounter Lino Bhandari APRN.CNP Work Phone: Internal Medicine [place] Comment on above: Orders Start: 10-31-2024 End: 10-31-2024 ambulatory Treatment Rm 14 [facility] Work Phone: Hematology/Oncology Comment on above: B12 deficiency (Prim jovita Dx); Iron deficiency anemia secondary to inadequate dietary iron intake; Iron malabsorption; Stage 3a chronic kidney disease (HCC) Start: 10-29-2024 End: 10-29-2024 ambulatory Treatment Rm 15 [facility] Work Phone: Hematology/Oncology Comment on above: B12 deficiency (Prim jovita Dx); Iron deficiency anemia secondary to inadequate dietary iron intake; Iron malabsorption; Stage 3a chronic kidney disease (HCC) Start: 10-27-2024 End: 10-27-2024 ambulatory Treatment Rm 14 [facility] Work Phone: Hematology/Oncology Comment on above: B12 deficiency (Prim jovita Dx); Iron deficiency anemia secondary to inadequate dietary iron intake; Iron malabsorption; Stage 3a chronic kidney disease (HCC) Start: 10-24-2024 End: 10-24-2024 ambulatory Dee Ashley MD Work Phone: [facility] Comment on above: Allied Health Visit (Medication Adherence Outreach ) Start: 10-22-2024 End: 10-22-2024 Telephone encounter Dee Ashley MD Work Phone: [facility] [place] Comment on above: Medication Problem Start: 10-20-2024 ambulatory [facility] Facility: [facility] Start: 10-18-2024 End: 10-20-2024 Telephone encounter Dee Ashley MD Work Phone: Internal [facility] [place] Comment on above: Anticoagulation Start: 10-17-2024 End: 10-17-2024 Telephone encounter Dee Ashley MD Work Phone: [facility] [place] Comment on above: FYI-No Action Needed Start: 10-16-2024 End: 10-16-2024 Patient Outreach Kennedi Jose RN Work Phone: [employer] Comment on above: Initial phone contac t for Transitional Care Management B12 deficiency (Prim jovita Dx) B12 deficiency (Prim jovita Dx); Iron deficiency anemia, unspecified iron deficiency anemia type; Stage 3a chronic kidney disease (HCC); Iron malabsorption Anticoagulation Start: 10-15-2024 End: 10-17-2024 Telephone encounter Christoph Chavis MD Work Phone: Cardiology Comment on above: Medication Problem Start: 10-15-2024 End: 10-15-2024 [facility] Facility:[facility] Start: 10-13-2024 End: 10-13-2024 Telephone encounter Christoph Chavis MD Work Phone: Cardiology Start: 10-11-2024 End: 10-11-2024 ambulatory [facility] [place] Start: 10-09-2024 ambulatory [facility] Start: 10-09-2024 End: 10-13-2024 Evaluation and management of inpatient [facility] Facility:[facility] Start: 10-09-2024 End: 10-09-2024 Patient encounter procedure Lino Bhandari APRN.CNP Work Phone: Internal Medicine [place] Comment on above: Other fatigue (Prima ry Dx); Left-sided weakness; Shortness of breath; Memory change; Hypokalemia; Nocturia Start: 10-09-2024 End: 10-09-2024 ambulatory [facility] Facility:[facility] Start: 09-25-2024 End: 12-02-2024 Telephone encounter Dee Ashley MD Work Phone: Internal Medicine [place] Comment on above: Anticoagulation ( in r 3.0 09/24/24) Start: 08-27-2024 End: 08-27-2024 Telephone encounter Dee Ashley MD Work Phone: Internal Medicine [place] Comment on above: Anticoagulation (/) Start: 08-25-2024 End: 08-25-2024 Office outpatient visit 25 minutes Dee Ashley MD Work Phone: Internal Medicine [place] Comment on above: Type 2 diabetes danni itus with diabetic mononeuropathy, with long-term current use of insulin (HCC) (Primary Dx); Paroxysmal atrial fibrillation (HCC); Dizziness; Encounter for immunization Start: 08-25-2024 End: 08-25-2024 [facility] Facility:[facility] Start: 08-20-2024 End: 08-20-2024 ambulatory Injection [facility] Work Phone: Hematology/Oncology Comment on above: B12 deficiency (Prim jovita Dx) Start: 08-18-2024 End: 08-18-2024 Orders Only Christoph Chavis MD Work Phone: Cardiology Comment on above: Pacemaker (Primary D x) Start: 08-13-2024 End: 08-25-2024 Telephone encounter Dee Ashley MD Work Phone: Internal Medicine [place] Comment on above: Anticoagulation (/) Start: 08-08-2024 End: 08-08-2024 ambulatory [facility] Facility:[facility] Start: 08-08-2024 End: 08-08-2024 Subsequent hospital visit by physician Max[facility] ([facility]) Work Phone: Cat [facility] Comment on above: Episode of change in speech [R47.89] Start: 08-08-2024 End: 08-09-2024 Telephone encounter Dee Ashley MD Work Phone: Internal Medicine [place] Comment on above: Anticoagulation Start: 08-06-2024 End: 08-06-2024 Telephone encounter Lino Bhandari APRN.CNP Work Phone: [facility] [place] Comment on above: Results Start: 07-29-2024 End: 08-12-2024 Telephone encounter Natalia Vela PA-C Work Phone: [facility] [place] Start: 07-29-2024 End: 07-29-2024 ambulatory [facility] Facility:[facility] Start: 07-29-2024 End: 07-29-2024 Office outpatient visit 25 minutes Natalia Vela PA-C Work Phone: [facility] [place] Comment on above: Episode of change in speech (Primary Dx); Balance problem; Recurrent major depressive disorder, in partial remission (HCC); Hypokalemia Start: 07-29-2024 End: 07-29-2024 ambulatory [facility] Facility:[facility] Start: 07-26-2024 End: 07-26-2024 ambulatory Ciera Tiwari RN [employer] Comment on above: Patient Question Start: 07-25-2024 End: 07-25-2024 Telephone encounter Dee Ashley MD Work Phone: Internal Medicine [place] Comment on above: Future Appointment Start: 07-18-2024 End: 07-18-2024 Office outpatient visit 25 minutes Dee Ashley MD Work Phone: Internal Medicine [place] Comment on above: Hospital discharge f ollow-up (Primary Dx); Diabetic gastropathy (HCC); Hypokalemia; Hypomagnesemia; Essential hypertension Start: 07-14-2024 End: 07-14-2024 ambulatory Zora Bhatia RN Work Phone: [employer] Comment on above: ROCÍO EDOUARD RN ( ED utilization review per request of payor) Start: 07-14-2024 End: 07-14-2024 Patient encounter procedure Yelitza Dorantes MA [facility] [place] Comment on above: Population Health Na vigation Outreach ([facility] INITIATIVE) Start: 07-10-2024 End: 07-17-2024 Telephone encounter Dee Ashley MD Work Phone: Internal Medicine [place] Comment on above: Anticoagulation (INR 2.4 07/10/24) Start: 07-10-2024 End: 07-10-2024 Emergency department patient visit [facility] Facility:[facility] Start: 07-08-2024 End: 07-08-2024 ambulatory [facility] Facility:[facility] Start: 06-25-2024 End: 06-25-2024 ambulatory Injection [facility] Work Phone: Hematology/Oncology Comment on above: B12 deficiency (Prim jovita Dx) Start: 06-20-2024 End: 06-20-2024 Patient encounter procedure Lino Bhandari BOND WRITER.JOB FOREMAN Work Phone: Internal Medicine [place] Comment on above: Type 2 diabetes danni itus with diabetic mononeuropathy, with long-term current use of insulin (HCC) (Primary Dx); Essential hypertension; Paroxysmal atrial fibrillation (HCC); Pure hypercholesterolemia; Need for influenza vaccination Start: 06-11-2024 End: 06-11-2024 Telephone encounter Dee Ashley MD Work Phone: Geriatrics Comment on above: Anticoagulation Start: 06-03-2024 End: 06-06-2024 Refill Lino Bhandari BOND WRITER.JOB FOREMAN Work Phone: Internal Medicine [place] Comment on above: Refill Request Start: 05-28-2024 End: 05-28-2024 ambulatory Injection Zhang [facility] Work Phone: Hematology/Oncology Comment on above: B12 deficiency (Prim jovita Dx) Start: 05-27-2024 End: 05-27-2024 Refill Dee Ashley MD Work Phone: Cardiology Comment on above: Refill Request Start: 05-21-2024 End: 05-21-2024 Telephone encounter Dee Ashley MD Work Phone: Internal Medicine [place] Comment on above: Anticoagulation Start: 05-13-2024 End: 05-13-2024 Refill Lino Older BOND WRITER.JOB FOREMAN Work Phone: Internal [facility] [place] Comment on above: Refill Request Start: 05-07-2024 End: 05-08-2024 Telephone encounter Dee Ashley MD Work Phone: [facility] [place] Comment on above: Coumadin/INR; Antico agulation (INR 2.0 05/07/2024) Start: 04-30-2024 End: 04-30-2024 ambulatory [facility] Work Phone: H[facility]ology[facility]Oncology Comment on above: B12 deficiency (Prim jovita Dx) Start: 04-23-2024 Telephone encounter Dee maddox MD Work Phone: [facility] [place] Comment on above: Anticoagulation Start: 04-16-2024 Telephone encounter Dee maddox MD Work Phone: Internal [facility] [place] Comment on above: Anticoagulation Start: 04-14-2024 Refill Dee Souza Work Phone: Internal Medicine [place] Comment on above: Refill Request Start: 04-02-2024 End: 04-02-2024 ambulatory Injection Zhang [facility] Work Phone: Hematology/Oncology Comment on above: B12 deficiency (Prim jovita Dx) Start: 04-01-2024 Orders Only Nabila Gleason Work Phone: Hematology/Oncology Start: 03-26-2024 Telephone encounter Lino Bhandari APRN.JOB FOREMAN Work Phone: Internal Medicine [place] Comment on above: Anticoagulation (/) Start: 03-20-2024 End: 03-20-2024 Patient encounter procedure Lino Bhandari APRN.JOB FOREMAN Work Phone: Internal Medicine [place] Comment on above: Type 2 diabetes danni itus with diabetic mononeuropathy, with long-term current use of insulin (HCC) (Primary Dx); Paroxysmal atrial fibrillation (HCC); Essential hypertension; Coronary artery disease involving [place] coronary artery of [place] tribe heart without angina pectoris; Pure hypercholesterolemia Start: 03-19-2024 Telephone encounter Dee maddox MD Work Phone: Internal Medicine [place] Comment on above: Anticoagulation Start: 03-18-2024 End: 03-18-2024 ambulatory Vilma Philip BOND WRITER.JOB FOREMAN Work Phone: Hematology/Oncology Comment on above: Iron deficiency anem ia, unspecified iron deficiency anemia type (Primary Dx); Stage 3a chronic kidney disease (HCC); B12 deficiency Start: 03-18-2024 End: 03-18-2024 Patient encounter procedure Vilma Shookenter BOND WRITER.JOB FOREMAN Work Phone: Hematology/Oncology Start: 03-12-2024 Telephone encounter Dee maddox MD Work Phone: Internal Medicine [place] Comment on above: Anticoagulation (INR 3.4) Start: 03-05-2024 End: 03-05-2024 ambulatory Injection Zhang [facility] Work Phone: Hematology/Oncology Comment on above: B12 deficiency (Prim jovita Dx) Start: 02-27-2024 Telephone encounter Lino Bhandari APRN.JOB FOREMAN Work Phone: [facility] [place] Comment on above: Anticoagulation Start: 02-25-2024 End: 02-25-2024 Patient encounter procedure Dileep Childs APRN.JOB FOREMAN Work Phone: [facility] Comment on above: Severe pain (Primary Dx) Start: 02-20-2024 Telephone encounter Dee maddox MD Work Phone: [facility] [place] Comment on above: Anticoagulation Start: 02-19-2024 Refill Sagrario de la rosa BOND WRITER.JOB FOREMAN Work Phone: [facility] [place] Comment on above: Refill Request Start: 02-07-2024 Telephone encounter Dee maddox MD Work Phone: [facility] [place] Comment on above: Anticoagulation (INR 1.5) Start: 02-06-2024 End: 02-06-2024 ambulatory Injection [facility] Work Phone: Hematology/Oncology Comment on above: B12 deficiency (Prim jovita Dx) Start: 02-05-2024 End: 02-05-2024 Subsequent hospital visit by physician Rocky Ortega MD Work Phone: Gastroenterology Comment on above: Anemia, unspecified type [D64.9] Start: 02-02-2024 Refill Lino Bhandari APRN, .CNP Work Phone: [facility] [place] Comment on above: Refill Request Start: 01-31-2024 End: 01-31-2024 Refill Dee Ashley MD Work Phone: [facility] [place] Comment on above: Refill Request B12 deficiency (Prim jovita Dx) Start: 01-30-2024 Telephone encounter Dee maddox MD Work Phone: [facility] [place] Comment on above: Anticoagulation (INR today 1.8) Start: 01-25-2024 End: 01-25-2024 ambulatory Treatment Rm 3 [facility] Work Phone: Hematology/Oncology Comment on above: Stage 3a chronic kid lamberto disease (HCC) (Primary Dx); Iron deficiency anemia secondary to inadequate dietary iron intake; Iron malabsorption; B12 deficiency Start: 01-23-2024 End: 01-23-2024 ambulatory Treatment Rm 13 [facility] Work Phone: Hematology/Oncology Comment on above: Stage 3a chronic kid lamberto disease (HCC) (Primary Dx); Iron deficiency anemia secondary to inadequate dietary iron intake; Iron malabsorption; B12 deficiency Start: 01-23-2024 Telephone encounter Dee maddox MD Work Phone: [facility] [place] Comment on above: Results Start: 01-21-2024 End: 01-21-2024 Patient encounter procedure Keyshawn Ordonez MD Work Phone: Cardiology Comment on above: Pure hypercholestero lemia (Primary Dx); Dual implantable cardioverter-defibrillator in situ; Coronary artery disease involving chick[place]om[place] indian tribe coronary artery of chickahominy indian tribe heart without angina pectoris; Atrial fibrillation, persistent (HCC) Start: 01-21-2024 End: 01-21-2024 ambulatory Treatment Rm 10 [facility] Work Phone: Hematology/Oncology Comment on above: Stage 3a chronic kid lamberto disease (HCC) (Primary Dx); Iron deficiency anemia secondary to inadequate dietary iron intake; Iron malabsorption; B12 deficiency Start: 01-17-2024 End: 01-17-2024 ambulatory Treatment Rm 13 [facility] Work Phone: Hematology/Oncology Comment on above: Stage 3a chronic kid lamberto disease (HCC) (Primary Dx); Iron deficiency anemia secondary to inadequate dietary iron intake; Iron malabsorption; B12 deficiency Start: 01-16-2024 Telephone encounter Dee maddox MD Work Phone: [facility] [place] Comment on above: Anticoagulation (inr today 2.0 range is 2-3) Start: 01-15-2024 End: 01-15-2024 ambulatory Treatment Rm 11 [facility] Work Phone: Hematology/Oncology Comment on above: Stage 3a chronic kid lamberto disease (HCC) (Primary Dx); Iron deficiency anemia secondary to inadequate dietary iron intake; Iron malabsorption; B12 deficiency Start: 01-09-2024 Telephone encounter Christoph barroso MD Work Phone: Cardiology Comment on above: Forms Start: 01-03-2024 Telephone encounter Lino Bhandari APRN.CNP Work Phone: [facility] [place] Comment on above: Anticoagulation Start: 01-02-2024 End: 01-02-2024 ambulatory Nabila Gleason Work Phone: Hematology/Oncology Comment on above: Anemia, unspecified type (Primary Dx); Stage 3a chronic kidney disease (HCC); Iron deficiency anemia, unspecified iron deficiency anemia type; B12 deficiency Start: 01-02-2024 End: 01-02-2024 Patient encounter procedure Nabila Gleason Work Phone: Hematology/Oncology Start: 12-25-2023 Orders Only Nabila Gleason Work Phone: Hematology/Oncology Comment on above: Anemia, unspecified type (Primary Dx); Iron deficiency anemia, unspecified iron deficiency anemia type; Stage 3a chronic kidney disease (HCC) Start: 12-19-2023 Telephone encounter Dee maddox MD Work Phone: Internal [facility] [place] Comment on above: Anticoagulation (INR 2.8 today) Start: 11-21-2023 Telephone encounter Dee maddox MD Work Phone: Internal [facility] [place] Comment on above: Anticoagulation (INR 3.1//Target 2-3) Start: 11-16-2023 End: 11-16-2023 Subsequent hospital visit by physician [facility] Work Phone: Radiology Comment on above: Abnormal finding on imaging of liver [R93.2] Start: 11-09-2023 End: 11-09-2023 Patient encounter procedure Lino Bhandari APRN.CNP Work Phone: [facility] [place] Comment on above: Type 2 diabetes danni itus with stage 3a chronic kidney disease, with long-term current use of insulin (HCC) (Primary Dx); Nocturia; Hypokalemia; Paroxysmal atrial fibrillation (HCC); Hypomagnesemia Start: 11-07-2023 Telephone encounter Lino Bhandari APRN.CNP Work Phone: [facility] [place] Comment on above: Anticoagulation Start: 11-06-2023 End: 11-06-2023 Patient encounter procedure Jennifer Shepherd PA-C Work Phone: Gastroenterology [place] Comment on above: Anemia, unspecified type (Primary Dx); History of colonic polyps; Abnormal finding on imaging of liver; Elevated alkaline phosphatase level Start: 10-26-2023 Follow-up encounter Christoph barroso MD Work Phone: [facility] Start: 10-26-2023 ICD Remote F/U Christoph garvey MD Work Phone: [facility] Department Start: 09-21-2023 End: 09-21-2023 Patient encounter procedure Christoph Chavis MD Work Phone: Cardiology Comment on above: Paroxysmal ventricul ar tachycardia (HCC) (Primary Dx); Paroxysmal atrial fibrillation (HCC); Morbid obesity (HCC); Type 2 diabetes mellitus with diabetic mononeuropathy, with long-term current use of insulin (HCC); Obesity, Class I, BMI 30-34.9; Atrial fibrillation, persistent (HCC); Encounter for current long-term use of anticoagulants; Benign essential HTN; Chronic systolic heart failure (HCC); Cardiomyopathy, ischemic Start: 08-15-2023 Telephone encounter Dee maddox MD Work Phone: [facility] [place] Comment on above: Anticoagulation Start: 08-10-2023 Refill Dee Souza Work Phone: [facility] [place] Comment on above: Refill Request Start: 07-27-2023 Follow-up encounter Christoph barroso MD Work Phone: [facility] Start: 07-27-2023 ICD Remote F/U Christoph garvey MD Work Phone: [facility] Department Start: 07-25-2023 End: 07-25-2023 ambulatory [facility] Work Phone: Start: 07-25-2023 End: 07-25-2023 Patient encounter procedure [facility] Work Phone: Start: 07-08-2023 Refill Lino Bhandari APRN, .CNP Work Phone: [facility] [place] Comment on above: Refill Request Start: 07-04-2023 Orders Only Christoph garvey MD Work Phone: Cardiology Comment on above: Atrial fibrillation, persistent (HCC) (Primary Dx); Dual implantable cardioverter-defibrillator in situ Anticoagulation Start: 06-18-2023 Refill Dee Souza Work Phone: [facility] [place] Comment on above: Refill Request Start: 05-25-2023 End: 05-25-2023 Patient encounter procedure Lillian Hanks PA-C Work Phone: [facility] [place] Comment on above: Type 2 diabetes danni itus with diabetic mononeuropathy, with long-term current use of insulin (HCC) (Primary Dx); Pure hypercholesterolemia; Hypothyroidism, unspecified type; Paroxysmal atrial fibrillation (HCC); Hypertensive kidney disease with stage 3a chronic kidney disease (HCC); Essential hypertension; Need for influenza vaccination Start: 05-23-2023 Telephone encounter Dee maddox MD Work Phone: [facility] [place] Comment on above: Anticoagulation Start: 05-10-2023 Telephone encounter Dee maddox MD Work Phone: [facility] [place] Comment on above: Anticoagulation Start: 05-09-2023 Refill Lino Bhandari APRN .JOB FOREMAN Work Phone: [facility] [place] Comment on above: Refill Request Start: 05-02-2023 Telephone encounter Dee maddox MD Work Phone: [facility] [place] Comment on above: Anticoagulation Start: 04-30-2023 Follow-up encounter Christoph barroso MD Work Phone: [facility] Start: 04-30-2023 End: 04-30-2023 Patient encounter procedure Jes Lee APRN.JOB FOREMAN Work Phone: Cardiology Comment on above: Atrial fibrillation, persistent (HCC) (Primary Dx); Dual implantable cardioverter-defibrillator in situ; Anticoagulated on Coumadin; Morbid obesity (HCC) Start: 04-27-2023 ambulatory Christoph garvey MD Work Phone: Cardiology Comment on above: Patient Education (E P: DCC) Start: 04-27-2023 Follow-up encounter Christoph barroso MD Work Phone: [facility] Start: 04-27-2023 ICD Remote F/U Christoph garvey MD Work Phone: [facility] Start: 04-18-2023 Telephone encounter Christoph barroso MD Work Phone: Cardiology Comment on above: Future Appointment ( DCC) Start: 04-16-2023 Telephone encounter Christoph barroso MD Work Phone: Cardiology Comment on above: Patient Update Start: 04-13-2023 Follow-up encounter Christoph barroso MD Work Phone: [facility] Start: 04-13-2023 ICD Remote F/U Christoph garvey MD Work Phone: [facility] Start: 04-04-2023 Telephone encounter Dee maddox MD Work Phone: [facility] [place] Comment on above: Anticoagulation (INR today 2.1. (home INR) range is 2-3) Start: 02-28-2023 Telephone encounter Dee maddox MD Work Phone: [facility] [place] Comment on above: Anticoagulation (INR 2.3 ) Start: 02-26-2023 End: 02-26-2023 ambulatory [facility] Work Phone: Start: 02-26-2023 End: 02-26-2023 Patient encounter procedure [facility] Start: 02-22-2023 Refill Dee Souza Work Phone: [facility] [place] Comment on above: Refill Request Start: 02-21-2023 End: 02-21-2023 Patient encounter procedure Dee Ashley MD Work Phone: [facility] [place] Comment on above: Type 2 diabetes danni itus with diabetic mononeuropathy, with long-term current use of insulin (HCC) (Primary Dx); [place] on CPAP; Stage 3a chronic kidney disease (HCC); Psoriatic arthritis (HCC); Iron deficiency anemia, unspecified iron deficiency anemia type; Hypothyroidism, unspecified type; 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 Please call him at [phone]) Start: 02-10-2023 Follow-up encounter Christoph barroso MD Work Phone: [facility] Start: 02-10-2023 ICD Remote F/U Christoph garvey MD Work Phone: [facility] Start: 01-17-2023 Telephone encounter Dee maddox MD Work Phone: [facility] [place] Comment on above: Anticoagulation Start: 12-13-2022 End: 12-13-2022 ambulatory [facility] Work Phone: Start: 12-13-2022 End: 12-13-[address] [facility] Start: 12-08-2022 Refill Lino Bhandari APRN .JOB FOREMAN Work Phone: [facility] [place] Comment on above: Refill Request Start: 11-22-2022 Telephone encounter Dee maddox MD Work Phone: [facility] [place] Comment on above: Anticoagulation (INR 3.1) Start: 11-21-2022 End: 11-21-2022 Patient encounter procedure Dee Ashley MD Work Phone: [facility] [place] Comment on above: Essential hypertensi on (Primary Dx); Hypokalemia; Recurrent major depressive disorder, in partial remission (HCC); Thrombocytopenia (HCC); Hypothyroidism, unspecified type; Type 2 diabetes mellitus with stage 3a chronic kidney disease, with long-term current use of insulin (HCC); SVT (supraventricular tachycardia) (HCC); Diastolic dysfunction Start: 11-13-2022 End: 11-13-2022 Patient encounter procedure Keyshawn Ordonez MD Work Phone: Cardiology Comment on above: Type 2 diabetes danni itus with diabetic mononeuropathy, with long-term current use of insulin (HCC) (Primary Dx); Pure hypercholesterolemia; Dual implantable cardioverter-defibrillator in situ; Coronary artery disease involving chickahominy indian tribe coronary artery of chickahominy indian tribe heart without angina pectoris; Essential hypertension; Paroxysmal atrial fibrillation (HCC) Start: 11-01-2022 Refill Lino Bhandari APRN .JOB FOREMAN Work Phone: [facility] [place] Comment on above: Refill Request Start: 10-27-2022 Follow-up encounter Christoph barroso MD [facility] Start: 10-27-2022 ICD Remote F/U Christoph garvey MD Work Phone: [facility] Start: 10-25-2022 Telephone encounter Christoph barroso MD Work Phone: Cardiology Comment on above: Received Outside Med ical Records Start: 09-27-2022 Telephone encounter Dee maddox MD Work Phone: [facility] [place] Comment on above: Anticoagulation Start: 08-31-2022 End: 08-31-2022 Patient encounter procedure Alireza Dickinson MD Work Phone: Orthopaedics Comment on above: Left wrist pain (Vanessa aminah Dx); Ganglion cyst; Primary osteoarthritis of left wrist Start: 08-30-2022 Telephone encounter Dee maddox MD Work Phone: [facility] [place] Comment on above: Anticoagulation Start: 08-23-2022 Telephone encounter Dee maddox MD Work Phone: [facility] [place] Comment on above: Anticoagulation Start: 08-22-2022 End: 08-22-2022 Patient encounter procedure Dee Ashley MD Work Phone: [facility] [place] Comment on above: Hypothyroidism, unsp ecified type (Primary Dx); Essential hypertension; Ganglion cyst; Type 2 diabetes mellitus with diabetic mononeuropathy, with long-term current use of insulin (HCC) Start: 08-10-2022 Telephone encounter Dee maddox MD Work Phone: [facility] [place] Comment on above: [employer] - INR testin g Start: 08-01-2022 Refill Dee Souza Work Phone: [facility] [place] Comment on above: Refill Request Start: 07-12-2022 Refill Jack Mcneill APRN.CNP Work Phone: [facility] [place] Comment on above: Refill Request Start: 07-05-2022 Telephone encounter Dee maddox MD Work Phone: [facility] [place] Comment on above: Anticoagulation Start: 06-13-2022 Telephone encounter Keyshawn Ordonez MD Work Phone: [facility] [place] Comment on above: Tier Over - O ther Start: 05-29-2022 End: 05-29-2022 Subsequent hospital visit by physician [facility] Work Phone: Radiology Comment on above: Malignant melanoma o f choroid of left eye (HCC) [C69.32] Start: 05-25-2022 ambulatory Eduardo Sierra clover BOND WRITER.JOB FOREMAN Work Phone: Pulmonary Medicine Start: 05-12-2022 Refill Jack Mcneill BOND WRITER.JOB FOREMAN Work Phone: [facility] [place] Comment on above: Refill Request Start: 05-09-2022 End: 05-09-2022 ambulatory Angeles Floyd MD Work Phone: Hematology/Oncology Comment on above: Stage 3a chronic kid lamberto disease (HCC) (Primary Dx); Iron deficiency anemia secondary to inadequate dietary iron intake; Thrombocytopenia (HCC) Start: 05-09-2022 End: 05-09-2022 Patient encounter procedure Angeles Floyd MD Work Phone: [facility] Start: 05-01-2022 End: 05-01-2022 Patient encounter procedure Keyshawn Ordonez MD Work Phone: Cardiology Comment on above: Mixed hyperlipidemia (Primary Dx); Coronary artery disease involving chickahom[place] indian tribe coronary artery of chickahominy indian tribe heart without angina pectoris; Essential hypertension; SVT (supraventricular tachycardia) (HCC); Paroxysmal atrial fibrillation (HCC); Hypertensive kidney disease with stage 3a chronic kidney disease (HCC) Start: 04-28-2022 Follow-up encounter Christoph barroso MD Work Phone: [facility] Start: 04-28-2022 ICD Remote F/U Christoph garvey MD Work Phone: [facility] Start: 04-15-2022 Refill Jack Mcneill BOND WRITER.JOB FOREMAN Work Phone: [facility] [place] Comment on above: Refill Request Start: 04-14-2022 Refill Dee Souza Work Phone: [facility] [place] Comment on above: Refill Request Start: 04-05-2022 Telephone encounter Lino Bhandari APRN.JOB FOREMAN Work Phone: [facility] [place] Comment on above: Results Start: 03-08-2022 Telephone encounter Lino Bhandari APRN.JOB FOREMAN Work Phone: [facility] [place] Comment on above: Results; Anticoagula tion Start: 02-20-2022 End: 02-20-2022 Patient encounter procedure Dee Ashley MD Work Phone: [facility] [place] Comment on above: Type 2 diabetes danni itus with diabetic mononeuropathy, with long-term current use of insulin (HCC) (Primary Dx); Essential hypertension; Mixed hyperlipidemia; Pure hyperglyceridemia Start: 02-03-2022 Telephone encounter Lino Bhandari APRN.JOB FOREMAN Work Phone: [facility] [place] Comment on above: Results; Anticoagula tion Start: 01-31-2022 Telephone encounter Dee maddox MD Work Phone: Internal [facility] Comment on above: Additional Labs Start: 01-27-2022 Follow-up encounter Christoph barroso MD Work Phone: [facility] Start: 01-27-2022 End: 01-27-2022 Patient encounter procedure Christoph Chavis MD Work Phone: [facility] Comment on above: Paroxysmal VT (HCC) (Primary Dx); PVC (premature ventricular contraction); Type 2 diabetes mellitus with diabetic mononeuropathy, with long-term current use of insulin (HCC); Coronary artery disease involving chickahom[place] indian tribe coronary artery of chickahominy indian tribe heart without angina pectoris; Paroxysmal atrial fibrillation (HCC); Morbid obesity (HCC); Dual implantable cardioverter-defibrillator in situ Start: 01-26-2022 Refill Jack Mcneill APRN.CNP Work Phone: [facility] [place] Comment on above: Refill Request Start: 01-20-2022 Refill Jack Mcneill APRN.CNP Work Phone: [facility] [place] Comment on above: Refill Request Start: 12-12-2021 Refill Dee Souza Work Phone: [facility] [place] Comment on above: Refill Request Start: 09-07-2021 End: 09-07-2021 Subsequent hospital visit by physician [facility] [place] Work Phone: Radiology Comment on above: Interscapular pain [ M54.89] Start: 07-15-2018 End: 07-15-2018 Patient encounter procedure [facility] Start: 06-27-2018 Patient encounter procedure [facility] Start: 03-27-2018 Ambulatory CORY MILAN Facility :[facility] Start: 09-27-2017 End: 09-27-2017 Ambulatory CORY MILAN [facility] Procedures Date Procedure Procedure Detail Performing Clinician Start: 06-25-2025 Antibody screen MELVIN LOPEZ Comment on above: Order Comment: Specimen Type: BLOOD SPEC IMEN Ordering Facility: [facility] Address: [address] [place] [address] Performed By: #### 2 [id number], [facility], 2276-4, [id number] #### [facility] CLIA [id number] [address] [place] [address] Start: 05-26-2025 Plain x-ray of elbow Dr. Dee Ashley MD Work Phone: Start: 03-10-2025 Prgrmg eval implantable in prsn dual lead dfb Christoph Chavis MD Work Phone: Start: 02-27-2025 Prgrmg dev eval implantable subq lead dfb system Christoph Chavis MD Work Phone: Start: 02-13-2025 Radex ankle complete minimum 3 views Nicky Pierson MD Work Phone: Start: 01-07-2025 Prothrombin time [facility] Provider Start: 12-30-2024 Echocardiography DEE ASHLEY Start: 12-24-2024 Prothrombin time [facility] Provider Start: 11-19-2024 Prothrombin time [facility] Provider Start: 11-05-2024 Prothrombin time [facility] Provider Start: 10-18-2024 Prothrombin time [facility] Provider Start: 10-16-2024 Prothrombin time [facility] Provider Start: 09-24-2024 Prothrombin time [facility] Provider Start: 08-27-2024 Prothrombin time [facility] Provider Start: 08-25-2024 [employer] COVID-19 VACCINE AGE 12+ YR (COMIRNATY) Dee Ashley MD Work Phone: Start: 08-13-2024 Prothrombin time [facility] Provider Start: 08-08-2024 Ct head/brain w/o & w/contrast material Natalia Vela PA-C Work Phone: Start: 08-06-2024 Prothrombin time [facility] Provider Start: 07-29-2024 Urnls dip stick/tablet rgnt auto w/o microscopy Natalia Vela PA-C Work Phone: Start: 07-10-2024 Prothrombin time [facility] Provider Start: 06-11-2024 Prothrombin time [facility] Provider Start: 05-21-2024 NT PRO BNP [facility] Provider Start: 05-07-2024 Prothrombin time [facility] Provider Start: 04-16-2024 Prothrombin time [facility] Provider Start: 03-26-2024 Prothrombin time [facility] Provider Start: 03-20-2024 Hemoglobin A1c/Hemoglobin.total in Blood Lino Bhandari BOND WRITER.JOB FOREMAN Work Phone: Start: 03-19-2024 Prothrombin time [facility] Provider Start: 02-20-2024 Prothrombin time [facility] Provider Start: 02-05-2024 Gluc bld gluc mntr dev cleared fda spec home use Allison Mcclure BOND WRITER.APPLIANCE SALES ASSOCIATE Work Phone: Start: 02-05-2024 Esophagogastroduodenoscopy transoral diagnostic Jennifer Shepherd PA-C Work Phone: Start: 02-05-2024 Colonoscopy flx dx w/collj spec when pfrmd Jennifer Shepherd PA-C Work Phone: Start: 02-05-2024 Colonoscopy Lino Bhandari BOND WRITER.JOB FOREMAN Work Phone: Start: 11-07-2023 PROTHROMBIN TIME/PT [facility] Provider Start: 10-26-2023 ICD REMOTE CHECK Christoph Chavis MD Work Phone: Start: 07-27-2023 ICD REMOTE CHECK Christoph Chavis MD Work Phone: Start: 05-25-2023 INFLUENZA VACCINE, PRSV FREE, AGE 65+ YR, HIGH DOSE, QUADRIVALENT (FLUZONE HIGH-DOSE) Lillian Hansk PA-C Work Phone: Start: 04-30-2023 ICD CLINIC CHECK Christoph Chavis MD Work Phone: Start: 04-27-2023 ICD REMOTE CHECK Christoph Chavis MD Work Phone: Start: 04-13-2023 ICD REMOTE CHECK Christoph Chavis MD Work Phone: Start: 02-26-2023 CT of chest Start: 02-10-2023 ICD REMOTE CHECK Christoph Chavis MD Work Phone: Start: 12-13-2022 Pelvis X-ray Start: 10-27-2022 ICD REMOTE CHECK Christoph Chavis MD Work Phone: Start: 08-22-2022 Hemoglobin A1c/Hemoglobin.total in Blood Dee Ashley MD Work Phone: Start: 05-29-2022 Us abdominal real time w/image limited Hamilton Bryan MD Work Phone: Start: 04-28-2022 ICD REMOTE CHECK Christoph Chavis MD Work Phone: Start: 01-27-2022 ICD CLINIC CHECK Christoph Chavis MD Work Phone: Start: 09-07-2021 Radiologic exam chest 2 views Dee maddox MD Work Phone: Start: 09-10-2020 History of cholecystectomy Status post laparoscopic cholecystectomy Start: 06-15-2015 Colonoscopy Dee Ashley MD Work Phone: Plan of Treatment Date Care Activity Detail Author Start: 02-04-2034 Screening for malignant neoplasm of colon [facility] Start: 05-12-2026 Annual PCP Team Chronic Disease Visit Annual PCP Team Chronic Disease Visit [facility] Start: 05-12-2026 Creatinine measurement Serum Creatinine [facility] Start: 05-05-2026 Annual PCP Team Chronic Disease Visit Annual PCP Team Chronic Disease Visit [facility] Start: 03-25-2026 Annual PCP Team Chronic Disease Visit Annual PCP Team Chronic Disease Visit [facility] Start: 03-10-2026 Creatinine measurement Serum Creatinine [facility] Start: 01-19-2026 Annual PCP Team Chronic Disease Visit Annual PCP Team Chronic Disease Visit [facility] Start: 01-19-2026 Creatinine measurement Serum Creatinine [facility] Start: 01-15-2026 Creatinine measurement Serum Creatinine [facility] Start: 01-15-2026 Hepatitis B surface antibody level LDL Cholesterol [facility] Start: 12-21-2025 End: 12-21-2025 Patient encounter procedure 12/21/2025 2:00 PM EDT Office Visit Cardiology [address] [place] [address] Keyshawn Ordonez MD [address] [facility], [address] [place] [address] 6 month follow up Cardiology Comment on above: 6 month follow up Start: 12-19-2025 Annual PCP Team Chronic Disease Visit Annual PCP Team Chronic Disease Visit [facility] Start: 12-19-2025 Anxiety Screening Anxiety Screening [facility] Start: 12-19-2025 BP Controlled (<130/80) BP Controlled (<130/80) [facility] in Start: 12-19-2025 Creatinine measurement Serum Creatinine [facility] Start: 10-16-2025 BP Controlled (<130/80) BP Controlled (<130/80) [facility] Start: 10-09-2025 Annual PCP Team Chronic Disease Visit Annual PCP Team Chronic Disease Visit [facility] Start: 10-02-2025 End: 10-02-2025 ambulatory [place] Dr[facility]coll [facility] Laboratory Comment on above: 6MO OV/ CBC/iron studies/B12/MMA CBC/iron studies/B12 /MMA Start: 09-25-2025 Hemoglobin A1c measurement HbA1C [facility] Start: 08-25-2025 Annual PCP Team Chronic Disease Visit Annual PCP Team Chronic Disease Visit [facility] Start: 08-25-2025 BP Controlled (<130/80) BP Controlled (<130/80) [facility] Start: 08-20-2025 End: 08-20-2025 ambulatory 08/20/2025 9:45 AM [facility] Hematology/Oncology [address] [place] [address] Wstr, Injection [facility] [address] [place] [address] QMO B12* Hematology/Oncology Comment on above: QMO B12* Start: 07-29-2025 Annual PCP Team Chronic Disease Visit Annual PCP Team Chronic Disease Visit [facility] Start: 07-29-2025 BP Controlled (<130/80) BP Controlled (<130/80) [facility] Start: 07-23-2025 End: 07-23-2025 ambulatory 07/23/2025 9:45 AM [facility] Hematology/Oncology [address] [place] [address] Wstr, Injection Zhang [facility] [address] [place] [address] QMO B12* Hematology/Oncology Comment on above: QMO B12* Start: 07-22-2025 Hemoglobin A1c measurement HbA1C [facility] Start: 07-18-2025 Annual PCP Team Chronic Disease Visit Annual PCP Team Chronic Disease Visit [facility] Start: 07-18-2025 Creatinine measurement Serum Creatinine [facility] Start: 07-18-2025 Hemoglobin A1c measurement HbA1C [facility] Start: 06-25-2025 End: 06-25-2025 ambulatory Hematology/Oncology Comment on above: QMO B12* CBC/iron studies/B12 /MMA Start: 06-20-2025 Annual PCP Team Chronic Disease Visit Annual PCP Team Chronic Disease Visit [facility] Start: 06-20-2025 Diabetic foot examination Diabetic Foot Exam [facility] Start: 06-20-2025 Hemoglobin A1c measurement HbA1C [facility] Start: 06-18-2025 Creatinine measurement Serum Creatinine [facility] Start: 06-18-2025 Hepatitis B surface antibody level LDL Cholesterol [facility] Start: 06-15-2025 Colonoscopy COLONOSCOPY [facility] Start: 06-15-2025 COLORECTAL CANCER SCREENING COLORECTAL CANCER SCREENING [facility] Start: 06-15-2025 Screening for malignant neoplasm of colon [facility] Start: 06-01-2025 End: 06-01-2025 Patient encounter procedure 06/01/2025 12:00 PM EDT Office Visit Internal Medicine [place] [address] [place] [address] Dee Ashley MD [address] [facility] [address] 2 week follow up Internal Medicine [place] Comment on above: 2 week follow up Start: 05-28-2025 End: 05-28-2025 ambulatory 05/28/2025 9:45 AM EDT Infusion Center Hematology/Oncology [address] [place] [address] Wstr, Injection [facility] [address] [place] [address] QMO B12* Hematology/Oncology Comment on above: QMO B12* Start: 05-26-2025 [facility] Start: 05-25-2025 End: 05-25-2025 Patient encounter procedure 05/25/2025 10:00 AM EDT Office Visit Cardiology [address] [place] [address] Keyshawn Ordonez MD [address] [facility], [address] [place] [address] 1 year follow up Cardiology Comment on above: 1 year follow up Start: 05-12-2025 End: 05-12-2025 Patient encounter procedure 05/12/2025 3:40 PM EDT Office Visit Internal Medicine [place] [address] [place] [address] Dee Ashley MD [address] [facility] [address] 1 week F/U Internal Medicine [place] Comment on above: 1 week F/U Start: 05-11-2025 Influenza vaccination Influenza Vaccine (#1) [facility] Start: 05-05-2025 End: 08-04-2025 Basic metabolic 2000 panel - Serum or Plasma BASIC METABOLIC PANEL Lab Routine Weight gain Expected: 05/05/2025, Expires: 08/04/2025 [facility] Comment on above: Expected: 05/05/2025, Expires: Start: 05-05-2025 End: 08-04-2025 Magnesium [Mass/volume] in Serum or Plasma MAGNESIUM Lab Routine Weight gain Expected: 05/05/2025, Expires: 08/04/2025 [facility] Comment on above: Expected: 05/05/2025, Expires: Start: 05-05-2025 End: 05-05-2026 Thyrotropin [Units/volume] in Serum or Plasma THYROID STIMULATING HORMONE Lab Routine Iron deficiency Expected: 05/05/2025, Expires: 05/05/2026 [facility] Work Phone: Comment on above: Expected: 05/05/2025, Expires: Start: 05-05-2025 End: 05-05-2026 Thyroxine (T4) free [Mass/volume] in Serum or Plasma T4 FREE/FREE THYROXINE Lab Routine Iron deficiency Expected: 05/05/2025, Expires: 05/05/2026 [facility] Comment on above: Expected: 05/05/2025, Expires: Start: 05-05-2025 End: 05-05-2026 Triiodothyronine (T3) Free [Mass/volume] in Serum or Plasma T3, FREE Lab Routine Iron deficiency Expected: 05/05/2025, Expires: 05/05/2026 [facility] Comment on above: Expected: 05/05/2025, Expires: Start: 05-05-2025 End: 05-05-2025 Patient encounter procedure 05/05/2025 9:20 AM EDT Office Visit Internal Medicine [place] [address] [place] [address] Dee Ashley MD [address] [place] [address] Follow up after ortho appt Internal Medicine [place] Comment on above: Follow up after ortho appt Start: 04-30-2025 End: 04-30-2025 ambulatory 04/30/2025 9:45 AM EDT Infusion Center Hematology/Oncology [address] [place] [address] Wstr, Injection [facility] [address] [place] [id number] QMO B12* Hematology/Oncology Comment on above: QMO B12* Start: 04-15-2025 End: 04-15-2025 Patient encounter procedure Orthopaedics Comment on above: Arthritis of right hip [M16.11]; Pain of right hip [M25.551] Right hip pain Start: 04-15-2025 End: 04-15-2025 ambulatory 04/15/2025 11:30 AM EDT Visit (SP) Office Hematology/Oncology [address] [place] [address] Nabila Gleason [address] [place] [address] 6MO OV* Hematology/Oncology Comment on above: 6MO OV* Start: 04-02-2025 End: 04-02-2025 ambulatory 04/02/2025 3:30 PM EDT Infusion Center Hematology/Oncology [address] [place] [address] Wstr, Injection [facility] [address] [place] [address] QMO B12* Hematology/Oncology Comment on above: QMO B12* Start: 04-02-2025 End: 04-02-2025 ambulatory Hematology/Oncology Comment on above: QMO B12/OV TODAY* 6MO OV* Start: 03-25-2025 End: 03-25-2025 Patient encounter procedure Internal Medicine [place] Comment on above: 2 month follow up discuss statin thera py Start: 03-20-2025 Annual PCP Team Chronic Disease Visit Annual PCP Team Chronic Disease Visit [facility] Start: 03-20-2025 BP Controlled (<130/80) BP Controlled (<130/80) [facility] in Start: 03-18-2025 BP Controlled (<130/80) BP Controlled (<130/80) [facility] Start: 03-17-2025 Creatinine measurement Serum Creatinine [facility] Start: 03-16-2025 End: 03-16-2025 Patient encounter procedure 03/16/2025 10:00 AM EDT Office Visit Cardiology [address] [place], [place] [address] Keyshawn Ordonez MD [address], [address] [place], [place] [id number] 1 year follow up Cardiology Comment on above: 1 year follow up Start: 03-10-2025 End: 03-10-2025 Cardioversion elective arrhythmia external CARDIOVERSION EXTERNAL ELECTIVE Persistent atrial fibrillation (HCC) 03/10/2025 8:59 AM EDT EP LAB Start: 03-10-2025 End: 03-10-2025 Patient encounter procedure 03/10/2025 7:30 AM EDT Office Visit Cardiology [address] [place] [address] , [place] [address] [facility] Cardiology Comment on above: [facility] Start: 03-05-2025 End: 03-05-2025 ambulatory 03/05/2025 3:30 PM EDT Infusion Center Hematology/Oncology [address] [place], [place] [id number] Wstr, Injection Zhang c [address] [place], [place] [id number] QMO B12* Hematology/Oncology Comment on above: QMO B12* Start: 02-27-2025 End: 02-27-2025 Follow-up encounter Cardiology Comment on above: 1 year follow up Start: 02-27-2025 End: 02-27-2025 Patient encounter procedure Cardiology Comment on above: 1 year follow up Discuss statin thera py Start: 02-24-2025 BP Controlled (<130/80) BP Controlled (<130/80) [facility] inic Start: 02-23-2025 Covid-19 Vaccine (7 - Pfizer risk season) Covid-19 Vaccine (7 - Pfizer risk season) [facility] Start: 02-16-2025 End: 02-16-2025 Patient encounter procedure 02/16/2025 10:00 AM EDT Office Visit Cardiology [address] [facility] [place] [phone] Keyshawn Ordonez MD [address] [facility] [address], [address] [place] [address] 1 year follow up Cardiology Comment on above: 1 year follow up Start: 02-05-2025 End: 02-05-2025 ambulatory 02/05/2025 3:30 PM EDT Infusion Center Hematology/Oncology [address] [place] [address] Wstr, Injection [facility] [address] [place] [address] QMO B12* Hematology/Oncology Comment on above: QMO B12* Start: 01-20-2025 BP Controlled (<130/80) BP Controlled (<130/80) [facility] Start: 01-19-2025 End: 04-20-2025 25-hydroxyvitamin D3 [Mass/volume] in Serum or Plasma [facility] Work Phone: Comment on above: Expected: 01/19/2025, Expires: Start: 01-19-2025 End: 01-19-2025 Patient encounter procedure 01/19/2025 10:00 AM EDT Office Visit Internal Medicine [place] [address] [place] [address] Dee Ashley MD [address] [place] [address] 4 Week F/U [facility] Medicine [place] Comment on above: 4 Week F/U Start: 01-15-2025 End: 01-15-2025 ambulatory 01/15/2025 11:00 AM EDT Results Only [place] Laboratory [address] [place] [address] [facility] Laboratory Comment on above: LABS Start: 01-08-2025 End: 01-08-2025 ambulatory Hematology/Oncology Comment on above: QMO B12* 6MO OV DUE APR 2025 QMO B12* Start: 01-01-2025 BP Controlled (<130/80) BP Controlled (<130/80) [facility] Start: 12-30-2024 End: 12-30-2024 Patient encounter procedure 12/30/2024 10:30 AM EDT Office Visit Cardiology [address] [place], [place] [id number] Dx: Chronic systolic heart failure (HCC) [I50.22]; Other hypervolemia [E87.79] Cardiology Comment on above: Dx: Chronic systolic heart failure (HCC) [I50.22]; Other hypervolemia [E87.79] Start: 12-25-2024 Creatinine measurement Serum Creatinine [facility] Start: 12-19-2024 End: 03-20-2025 Comprehensive metabolic 2000 panel - Serum or Plasma [facility] Work Phone: Comment on above: Expected: 12/19/2024, Expires: Start: 12-19-2024 End: 03-20-2025 Hemoglobin A1c in Blood [facility] Comment on above: Expected: 12/19/2024, Expires: Start: 12-19-2024 End: 03-20-2025 Natriuretic peptide.B prohormone N-Terminal [Mass/volume] in Serum or Plasma [facility] Comment on above: Expected: 12/19/2024, Expires: Start: 12-19-2024 End: 03-20-2025 Thyrotropin [Units/volume] in Serum or Plasma [facility] Comment on above: Expected: 12/19/2024, Expires: Start: 12-19-2024 End: 12-19-2024 Patient encounter procedure 12/19/2024 10:00 AM EDT Office Visit Internal Medicine [place] [address] [place] [address] Dee Ashley MD [address] [place] [address] [employer] Internal Medicine [place] Comment on above: [employer] Start: 12-17-2024 Hemoglobin A1c measurement HbA1C [facility] Start: 12-15-2024 End: 03-16-2025 Basic metabolic 2000 panel - Serum or Plasma BASIC METABOLIC PANEL Lab Routine Paroxysmal atrial fibrillation (HCC) Type 2 diabetes mellitus with diabetic mononeuropathy, with long-term current use of insulin (HCC) Essential hypertension Expected: 12/15/2024 (Approximate), Expires: 03/16/2025 [facility] Comment on above: Expected: 12/15/2024 (Approximate), Expi res: 03/16/2025 Start: 12-15-2024 End: 03-16-2025 CBC W Auto Differential panel - Blood COMPLETE BLOOD COUNT AND DIFFERENTIAL Lab Routine Paroxysmal atrial fibrillation (HCC) Type 2 diabetes mellitus with diabetic mononeuropathy, with long-term current use of insulin (HCC) Essential hypertension Expected: 12/15/2024 (Approximate), Expires: 03/16/2025 [facility] Comment on above: Expected: 12/15/2024 (Approximate), Expi res: 03/16/2025 Start: 12-15-2024 End: 03-16-2025 Hemoglobin A1c in Blood HEMOGLOBIN A1C Lab Routine Type 2 diabetes mellitus with diabetic mononeuropathy, with long-term current use of insulin (HCC) Expected: 12/15/2024 (Approximate), Expires: 03/16/2025 [facility] Work Phone: Comment on above: Expected: 12/15/2024 (Approximate), Expi res: 03/16/2025 Start: 12-11-2024 End: 12-11-2024 ambulatory Hematology/Oncology Comment on above: QMO B12* 6MO OV DUE APR 2025 QMO B12* Start: 11-13-2024 End: 11-13-2024 ambulatory Hematology/Oncology Comment on above: QMO B12* 6MO OV DUE APR 2025 QMO B12* Start: 11-08-2024 Annual PCP Team Chronic Disease Visit Annual PCP Team Chronic Disease Visit [facility] Start: 11-08-2024 BP Controlled (<130/80) BP Controlled (<130/80) [facility] in Start: 11-05-2024 End: 11-05-2024 ambulatory 11/05/2024 2:00 PM [facility] Hematology/Oncology [address] [place] [address] 2ND FLOOR Hematology/Oncology Comment on above: 2ND FLOOR Start: 11-03-2024 End: 11-03-2024 Patient encounter procedure 11/03/2024 3:40 PM EST Office Visit Internal Medicine [place] [address] [place] [address] Dee Ashley MD [address] [place] [address] [facility] Follow 2/3 Up Maggie Mittal Internal Medicine [place] Comment on above: [facility] Follow 2/3 Up Pao Mittal Start: 11-03-2024 End: 11-03-2024 ambulatory 11/03/2024 10:30 AM EST Infusion Center Hematology/Oncology [address] [place] [address] 2ND FLOOR Hematology/Oncology Comment on above: 2ND FLOOR Start: 10-31-2024 End: 10-31-2024 ambulatory 10/31/2024 10:00 AM EST Infusion Center Hematology/Oncology [address] [place] [address] 2ND FLOOR Hematology/Oncology Comment on above: 2ND FLOOR Start: 10-29-2024 End: 10-29-2024 ambulatory 10/29/2024 10:30 AM EST Infusion Center Hematology/Oncology [address] [place] [address] 2ND FLOOR Hematology/Oncology Comment on above: 2ND FLOOR Start: 10-27-2024 End: 10-27-2024 ambulatory 10/27/2024 10:00 AM EST Infusion Center Hematology/Oncology [address] [place] [address] 2ND FLOOR Hematology/Oncology Comment on above: 2ND FLOOR Start: 10-20-2024 Covid-19 Vaccine ( season) Covid-19 Vaccine ( season) [facility] Start: 10-17-2024 End: 10-17-2024 Patient encounter procedure 10/17/2024 11:40 AM EST Office Visit Internal Medicine [place] [address] [place] [address] Dee Ashley MD [address] [place] [address] hospital follow up Internal Medicine [place] Comment on above: hospital follow up Start: 10-16-2024 End: 10-16-2024 ambulatory Hematology/Oncology Comment on above: QMO B12/LAB&OV EARLY* QMO B12* Start: 10-16-2024 End: 10-16-2024 ambulatory 10/16/2024 1:30 PM EST Visit (SP) Office Hematology/Oncology [address] [place], [place] [address] Nabila Gleason [address] [place] [address] OV/INJ TODAY* Hematology/Oncology Comment on above: OV/INJ TODAY* Start: 10-09-2024 End: 10-09-2024 Patient encounter procedure 10/09/2024 1:00 PM EST Office Visit Internal Medicine [place] [address] [facility], [place] [id number] Lino Bhandari APRN.[employer] [address] [place] [address] 6 WEEK FOLLOW UP Internal Medicine [place] Comment on above: 6 WEEK FOLLOW UP Start: 10-03-2024 BP Controlled (<130/80) BP Controlled (<130/80) [facility] in Start: 10-03-2024 Creatinine measurement Serum Creatinine [facility] Start: 09-27-2024 Annual PCP Team Chronic Disease Visit Annual PCP Team Chronic Disease Visit [facility] Start: 09-27-2024 Covid-19 Vaccine ( season) Covid-19 Vaccine ( season) [facility] Comment on above: Postponed from 05/11/2023 (Declined at t his time) Start: 09-27-2024 Hepatitis B Vaccine (1 of 3 - Risk 3-dose series) Hepatitis B Vaccine (1 of 3 - Risk 3-dose series) [facility] Comment on above: Postponed from 2010 (Declined at t his time) Start: 09-27-2024 Shingrix Vaccine (1 of 2) Shingrix Vaccine (1 of 2) [facility] Comment on above: Postponed from 06/13/2016 (Declined at t his time) Start: 09-27-2024 Urine microalbumin profile DTaP,Tdap,Td Vaccine (3 - Td or Tdap) [facility] Comment on above: Postponed from 01/28/2022 (Declined at t his time) Start: 09-20-2024 Hemoglobin A1c measurement HbA1C [facility] Start: 09-18-2024 End: 09-18-2024 [facility] Comment on above: CBC/iron studies/B12 6 MO OV 6 MO OV/LAB&INJ TODA Y* QMO B12/LAB&OV EARLY * Start: 09-17-2024 End: 09-17-2024 ambulatory 09/17/2024 3:30 PM EST Infusion Center Hematology/Oncology [address] [place] [address] Wstr, Injection [facility] [address] [place] [address] QMO B-12 Hematology/Oncology Comment on above: QMO B-12 Start: 09-10-2024 Advance Directive Discussion Advance Directive Discussion [facility] Start: 09-01-2024 End: 09-01-2024 Patient encounter procedure 09/01/2024 9:20 AM EST Office Visit Internal Medicine [place] [address] [place] [address] Dee Ashley MD [address] [place] [address] 1 month follow up Internal Medicine [place] Comment on above: 1 month follow up Start: 08-25-2024 End: 08-25-2024 Patient encounter procedure 08/25/2024 10:20 AM EST Office Visit Internal Medicine [place] [address] [place] [address] Dee Ashley MD [address] [place] [address] 1 month follow up Internal Medicine [place] Comment on above: 1 month follow up Start: 08-20-2024 End: 08-20-2024 ambulatory 08/20/2024 2:00 PM EST Infusion Center Hematology/Oncology [address] [place] [address] Wstr, Injection Zhang [facility] [address] [place] [address] QMO B12* Hematology/Oncology Comment on above: QMO B12* Start: 08-20-2024 Creatinine measurement Serum Creatinine [facility] Start: 08-20-2024 Hepatitis B surface antibody level LDL Cholesterol [facility] Start: 08-20-2024 Serum Creatinine Serum Creatinine [facility] Start: 08-08-2024 End: 08-08-2024 Patient encounter procedure 08/08/2024 2:20 PM EST Appointment Cat Scan [address] [place] [id number] Episode of change in speech [R47.89]; Balance problem [R26.89] Cat Scan Comment on above: Episode of change in speech [R47.89]; Ba richie problem [R26.89] Start: 07-29-2024 End: 10-28-2024 Potassium [Moles/volume] in Serum or Plasma POTASSIUM Lab Routine Hypokalemia Expected: 07/29/2024, Expires: 10/28/2024 [facility] Work Phone: Comment on above: Expected: 07/29/2024, Expires: Start: 07-29-2024 End: 07-29-2024 Patient encounter procedure 07/29/2024 10:20 AM EST Office Visit Family Medicine [place] [address] [place] [address] Natalia Vela PA-C [address] [place] [address] concerned with walking/speech/actions of pt. Improving slowing x 3 weeks/requesting apt Family [facility] [place] Comment on above: concerned with walking/speech/actions of pt. Improving slowing x 3 weeks/requesting apt Start: 07-23-2024 End: 07-23-2024 ambulatory 07/23/2024 2:00 PM EST Infusion Center Hematology/Oncology [address] [place] [address] Wstr, Injection Zhang [facility] [address] [place] [address] QMO B12* Hematology/Oncology Comment on above: QMO B12* Start: 07-18-2024 End: 10-17-2024 Basic metabolic 2000 panel - Serum or Plasma [facility] Comment on above: Expected: 07/18/2024, Expires: Start: 07-18-2024 End: 10-17-2024 Magnesium [Mass/volume] in Serum or Plasma [facility] Work Phone: Comment on above: Expected: 07/18/2024, Expires: Start: 07-18-2024 End: 07-18-2024 Patient encounter procedure 07/18/2024 10:00 AM EST Office Visit Internal Medicine [place] [address] [place] [address] Dee Ashley MD [address] [place] [address] follow up ER visit Internal Medicine [place] Comment on above: follow up ER visit Start: 06-25-2024 End: 06-25-2024 ambulatory 06/25/2024 2:00 PM EDT [facility] Center Hematology/Oncology [address] [place] [address] Wstr, Injection Zhang [facility] [address] [place] [address] QMO B12* Hematology/Oncology Comment on above: QMO B12* Start: 06-23-2024 End: 09-22-2024 CBC W Auto Differential panel - Blood COMPLETE BLOOD COUNT AND DIFFERENTIAL Lab Routine Type 2 diabetes mellitus with diabetic mononeuropathy, with long-term current use of insulin (HCC) Essential hypertension Expected: 06/23/2024 (Approximate), Expires: 09/22/2024 [facility] Comment on above: Expected: 06/23/2024 (Approximate), Expi res: 09/22/2024 Start: 06-23-2024 End: 09-22-2024 Comprehensive metabolic 2000 panel - Serum or Plasma COMPREHENSIVE METABOLIC PANEL Lab Routine Type 2 diabetes mellitus with diabetic mononeuropathy, with long-term current use of insulin (HCC) Pure hypercholesterolemia Essential hypertension Expected: 06/23/2024 (Approximate), Expires: 09/22/2024 [facility] Comment on above: Expected: 06/23/2024 (Approximate), Expi res: 09/22/2024 Start: 06-23-2024 End: 09-22-2024 Hemoglobin A1c in Blood HEMOGLOBIN A1C Lab Routine Type 2 diabetes mellitus with diabetic mononeuropathy, with long-term current use of insulin (HCC) Expected: 06/23/2024 (Approximate), Expires: 09/22/2024 [facility] Comment on above: Expected: 06/23/2024 (Approximate), Expi res: 09/22/2024 Start: 06-23-2024 End: 09-22-2024 Lipid 1996 panel - Serum or Plasma LIPID PANEL BASIC Lab Routine Pure hypercholesterolemia Expected: 06/23/2024 (Approximate), Expires: 09/22/2024 [facility] Work Phone: Comment on above: Expected: 06/23/2024 (Approximate), Expi res: 09/22/2024 Start: 06-20-2024 End: 06-20-2024 Patient encounter procedure 06/20/2024 11:20 AM EDT Office Visit Internal Medicine [place] [address] [place] [address] Lino Bhandari APRN.[employer] [address] [place] [address] 3 month follow up Internal Medicine [place] Comment on above: 3 month follow up Start: 06-18-2024 End: 06-18-2024 ambulatory 06/18/2024 1:00 PM EDT Results Only [facility] Laboratory [address] [place] [address] CBC/iron studies/B12 [facility] Laboratory Comment on above: CBC/iron studies/B12 Start: 06-03-2024 End: 09-02-2024 Thyrotropin [Units/volume] in Serum or Plasma THYROID STIMULATING HORMONE Lab Routine Hypothyroidism Expected: 06/03/2024, Expires: 09/02/2024 [facility] Work Phone: Comment on above: Expected: 06/03/2024, Expires: Start: 05-28-2024 End: 05-28-2024 ambulatory 05/28/2024 2:00 PM EDT Infusion Center Hematology/Oncology [address] [place] [address] Wstr, Injection Zhang [facility] [address] [place] [address] QMO B12* Hematology/Oncology Comment on above: QMO B12* Start: 05-25-2024 Annual PCP Team Chronic Disease Visit Annual PCP Team Chronic Disease Visit [facility] Start: 05-25-2024 BP Controlled (<130/80) BP Controlled (<130/80) [facility] Start: 05-11-2024 Covid-19 Vaccine ( season) Covid-19 Vaccine ( season) [facility] Start: 05-11-2024 Covid-19 Vaccine ( season) Covid-19 Vaccine ( season) [facility] Start: 05-11-2024 Influenza vaccination Influ[facility]) [facility] Start: 04-30-2024 End: 04-30-2024 ambulatory 04/30/2024 2:00 PM T [facility] Hematology/Oncology [address] [place] [address] Wstr, Injection [facility] [address] [place] [address] QMO B12* Hematology/Oncology Comment on above: QMO B12* Start: 04-20-2024 Hepatitis B surface antibody level LDL CHOLESTEROL [facility] Start: 04-20-2024 SERUM CREATININE SERUM CREATININE [facility] Start: 04-02-2024 End: 04-02-2024 ambulatory Hematology/Oncology Comment on above: QWK B12/ #4-4 QMO B12* Start: 03-20-2024 End: 03-20-2024 Patient encounter procedure 03/20/2024 10:20 AM EDT Office Visit Internal Medicine [place] [address] [place] [address] Lino Bhandari APRN.[employer]OB FOREMAN [address] [place] [address] 3 month follow up [facility] [place] Comment on above: 3 month follow up Start: 03-19-2024 End: 03-19-2024 Patient encounter procedure 03/19/2024 10:55 AM EDT Office Visit Gastroenterology [place] [address] [place] [id number] Jennifer Shepherd PA-C [address] [place] [address] follow up for anemia [facility] [place] Comment on above: follow up for anemia Start: 03-18-2024 End: 03-18-2024 ambulatory [facility] Comment on above: CBC, CMP, iron studies, and B12 3MO OV/LABS/ FINISHE D IRON 01/24* Start: 03-05-2024 End: 03-05-2024 ambulatory Hematology/Oncology Comment on above: QWK B12/ #4-4 QMO B12* Start: 02-22-2024 ANNUAL PCP TEAM CHRONIC DISEASE VISIT ANNUAL PCP TEAM CHRONIC DISEASE VISIT [facility] Start: 02-22-2024 BP CONTROLLED (<130/80) BP CONTROLLED (<130/80) [facility] in Start: 02-17-2024 Hepatitis B surface antibody level LDL CHOLESTEROL [facility] Start: 02-17-2024 SERUM CREATININE SERUM CREATININE [facility] Start: 02-11-2024 End: 02-11-2024 Patient encounter procedure 02/11/2024 10:40 AM EDT Office Visit Internal Medicine [place] [address] [place] [address] Lino Bhandari APRN.[employer]OB FOREMAN [address] [place], [place] [id number] 3 month follow up [facility] [place] Comment on above: 3 month follow up Start: 02-06-2024 End: 02-06-2024 ambulatory 02/06/2024 2:00 PM EDT [facility]fusion [facility] Hematology/Oncology [address] [place] [address] Wstr, Injection [facility] [address] [place] [address] QWK B12/ #4-4 Hematology/Oncology Comment on above: QWK B12/ #4-4 Start: 02-05-2024 End: 02-05-2024 Patient encounter procedure Gastroenterology Comment on above: Anemia, unspecified type [D64.9] Start: 01-31-2024 End: 01-31-2024 ambulatory 01/31/2024 2:00 PM EDT Infusion Center Hematology/Oncology [address] [place] [address] Wstr, Injection [facility] [address] [place] [address] QWK B12/ #3-4 Hematology/Oncology Comment on above: QWK B12/ #3-4 Start: 01-25-2024 End: 01-25-2024 ambulatory Hematology/Oncology Comment on above: IRON SUCROSE 200 MG/ #5-5/ AUTH EXP ?* IRON SUCROSE 200 MG/ #5-5/ AUTH EXP 09/09/24* Start: 01-23-2024 End: 01-23-2024 ambulatory Hematology/Oncology Comment on above: QWK B12/ #2-4 IRON SUCROSE 200 MG/ #4-5/ AUTH EXP ?* IRON SUCROSE 200 MG/ #4-5/ AUTH EXP 09/09/24* IRON SUCROSE 200 MG/ #4-5/QWK B12/ #2-4/ AUTH EXP 09/09/24* Start: 01-21-2024 Hemoglobin A1c measurement HbA1C [facility] Start: 01-21-2024 Hemoglobin A1c/Hemoglobin.total in Blood HbA1C [facility] Start: 01-21-2024 End: 01-21-2024 Patient encounter procedure 01/21/2024 10:40 AM EDT Office Visit Cardiology [address] [place] [phone] Keyshawn Ordonez MD [address] [facility] [address] [address], [address] [place], [place] [id number] 1 year follow up Cardiology Comment on above: 1 year follow up Start: 01-21-2024 End: 01-21-2024 ambulatory Hematology/Oncology Comment on above: IRON SUCROSE 200 MG/ #3-5/ AUTH EXP ?* IRON SUCROSE 200 MG/ #3-5/ AUTH EXP 09/09/24* Start: 01-17-2024 End: 01-17-2024 ambulatory Hematology/Oncology Comment on above: QWK B12/ #1-4 IRON SUCROSE 200 MG/ #2-5/ AUTH EXP ?* IRON SUCROSE 200 MG/ #2-5/ AUTH EXP 09/09/24* Start: 01-15-2024 End: 01-15-2024 ambulatory Hematology/Oncology Comment on above: START IRON SUCROSE 200 MG/ #1-5/ AUTH EX P ?* START IRON SUCROSE 2 00 MG/ #1-5/ AUTH EXP 09/09/24* Start: 12-26-2023 End: 03-26-2024 Cobalamin (Vitamin B12) [Mass/volume] in Serum or Plasma [facility] Work Phone: Comment on above: Expected: 12/26/2023, Expires: Start: 12-26-2023 End: 03-26-2024 Ferritin [Mass/volume] in Serum or Plasma [facility] Work Phone: Comment on above: Expected: 12/26/2023, Expires: 4 Start: 12-26-2023 End: 03-26-2024 Iron and Iron binding capacity panel - Serum or Plasma [facility] Work Phone: Comment on above: Expected: 12/26/2023, Expires: 4 Start: 12-19-2023 Hepatitis B surface antibody level LDL CHOLESTEROL [facility] Start: 12-19-2023 SERUM CREATININE SERUM CREATININE [facility] Start: 11-22-2023 3 comp foot exam completed DIABETIC FOOT EXAM [facility] Start: 11-22-2023 ANNUAL PCP TEAM CHRONIC DISEASE VISIT ANNUAL PCP TEAM CHRONIC DISEASE VISIT [facility] Start: 11-22-2023 BP CONTROLLED (<130/80) BP CONTROLLED (<130/80) [facility] in Start: 11-22-2023 Diabetic foot examination Diabetic Foot Exam [facility] Start: 11-07-2023 Hepatitis B surface antibody level LDL CHOLESTEROL [facility] Start: 11-07-2023 SERUM CREATININE SERUM CREATININE [facility] Start: 11-06-2023 End: 02-05-2024 ALK PHOS ISOENZYM BL ALK PHOS ISOENZYM BL Lab Routine Abnormal finding on imaging of liver Elevated alkaline phosphatase level Expected: 11/06/2023, Expires: 02/05/2024 [facility] Work Phone: Comment on above: Expected: 11/06/2023, Expires: 4 Start: 11-06-2023 End: 02-05-2024 Mitochondria Ab [Presence] in Serum by Immunofluorescence MITOCHONDRIAL M2 IGG SERUM Lab Routine Abnormal finding on imaging of liver Elevated alkaline phosphatase level Expected: 11/06/2023, Expires: 02/05/2024 [facility] Work Phone: Comment on above: Expected: 11/06/2023, Expires: 4 Start: 10-21-2023 Hemoglobin A1c/Hemoglobin.total in Blood HBA1C [facility] Start: 09-10-2023 Advance Directive Discussion Advance Directive Discussion [facility] Start: 08-22-2023 ANNUAL PCP TEAM CHRONIC DISEASE VISIT ANNUAL PCP TEAM CHRONIC DISEASE VISIT [facility] Start: 08-22-2023 BP CONTROLLED (<130/80) BP CONTROLLED (<130/80) [facility] Start: 08-18-2023 Hemoglobin A1c/Hemoglobin.total in Blood HBA1C [facility] Start: 08-07-2023 Hepatitis B surface antibody level LDL CHOLESTEROL [facility] Start: 08-07-2023 SERUM CREATININE SERUM CREATININE [facility] Start: 06-19-2023 Hemoglobin A1c/Hemoglobin.total in Blood HBA1C [facility] Start: 05-23-2023 ANNUAL PCP TEAM CHRONIC DISEASE VISIT ANNUAL PCP TEAM CHRONIC DISEASE VISIT [facility] Start: 05-23-2023 BP CONTROLLED (<130/80) BP CONTROLLED (<130/80) [facility] Start: 05-11-2023 Covid-19 Vaccine ( season) Covid-19 Vaccine () [facility] Start: 05-11-2023 Influenza vaccination [facility] Start: 05-09-2023 BP CONTROLLED (<130/80) BP CONTROLLED (<130/80) [facility] Start: 05-09-2023 HEMOGLOBIN/HEMATOCRIT HEMOGLOBIN/HEMATOCRIT [facility] Start: 05-07-2023 Hemoglobin A1c/Hemoglobin.total in Blood HBA1C [facility] Start: 05-01-2023 BP CONTROLLED (<130/80) BP CONTROLLED (<130/80) [facility] Start: 03-07-2023 HEMOGLOBIN/HEMATOCRIT HEMOGLOBIN/HEMATOCRIT [facility] Start: 02-20-2023 ANNUAL PCP TEAM CHRONIC DISEASE VISIT ANNUAL PCP TEAM CHRONIC DISEASE VISIT [facility] Start: 02-20-2023 BP CONTROLLED (<130/80) BP CONTROLLED (<130/80) [facility] Start: 02-20-2023 Hemoglobin A1c/Hemoglobin.total in Blood HBA1C [facility] Start: 02-16-2023 Hepatitis B surface antibody level LDL CHOLESTEROL [facility] Start: 01-31-2023 HEMOGLOBIN/HEMATOCRIT HEMOGLOBIN/HEMATOCRIT [facility] Start: 12-22-2022 End: 02-21-2023 Basic metabolic 2000 panel - Serum or Plasma BASIC METABOLIC PNL Lab Routine Essential hypertension Expected: 12/22/2022, Expires: 02/21/2023 [facility] Work Phone: Comment on above: Expected: 12/22/2022, Expires: 3 Start: 12-09-2022 COVID-19 VACCINE (6 - Pfizer series) COVID-19 VACCINE (6 - Pfizer series) [facility] Start: 11-24-2022 Glaucoma screening Dilated Retinal Exam [facility] Start: 11-24-2022 Hepatitis C antibody, confirmatory test DILATED RETINAL EXAM [facility] Start: 11-21-2022 3 comp foot exam completed DIABETIC FOOT EXAM [facility] Start: 11-21-2022 ANNUAL PCP TEAM CHRONIC DISEASE VISIT ANNUAL PCP TEAM CHRONIC DISEASE VISIT [facility] Start: 11-21-2022 BP CONTROLLED (<130/80) BP CONTROLLED (<130/80) [facility] Start: 11-21-2022 HEMOGLOBIN/HEMATOCRIT HEMOGLOBIN/HEMATOCRIT [facility] Start: 11-21-2022 End: 01-21-2023 Thyrotropin [Units/volume] in Serum or Plasma TSH BLD Lab Routine Hypothyroidism, unspecified type Expected: 11/21/2022, Expires: 01/21/2023 [facility] Work Phone: Comment on above: Expected: 11/21/2022, Expires: 3 Start: 11-01-2022 Hemoglobin A1c/Hemoglobin.total in Blood HBA1C [facility] Start: 10-05-2022 COVID-19 VACCINE (6 - Pfizer risk series) COVID-19 VACCINE (6 - Pfizer risk series) [facility] Start: 09-26-2022 SERUM CREATININE SERUM CREATININE [facility] Start: 09-22-2022 End: 11-22-2022 Thyrotropin [Units/volume] in Serum or Plasma TSH BLD Lab Routine Hypothyroidism, unspecified type Expected: 09/22/2022, Expires: 11/22/2022 [facility] Work Phone: Comment on above: Expected: 09/22/2022, Expires: 3 Start: 09-10-2022 ADVANCE DIRECTIVE DISCUSSION ADVANCE DIRECTIVE DISCUSSION [facility] Start: 08-12-2022 FECAL OCCULT BLOOD FECAL OCCULT BLOOD [facility] Start: 08-12-2022 Screening for malignant neoplasm of colon Fecal Occult Blood [facility] Start: 08-03-2022 Hemoglobin A1c/Hemoglobin.total in Blood HBA1C [facility] Start: 05-23-2022 End: 07-23-2022 Hemoglobin A1c in Blood HGB A1C Lab Routine Type 2 diabetes mellitus with diabetic mononeuropathy, with long-term current use of insulin (HCC) Expected: 05/23/2022, Expires: 07/23/2022 [facility] Work Phone: Comment on above: Expected: 05/23/2022, Expires: 2 Start: 05-11-2022 Influenza vaccination INFLUENZA (#1) [facility] Start: 04-09-2022 Hemoglobin A1c/Hemoglobin.total in Blood HBA1C [facility] Start: 2022 COVID-19 VACCINE (5 - Booster for Pfizer series) COVID-19 VACCINE (5 - Booster for Pfizer series) [facility] Start: 02-20-2022 End: 04-22-2022 CBC W Auto Differential panel - Blood CBC + DIFF Lab Routine Type 2 diabetes mellitus with diabetic mononeuropathy, with long-term current use of insulin (HCC) Expected: 02/20/2022, Expires: 04/22/2022 [facility] Work Phone: Comment on above: Expected: 02/20/2022, Expires: 2 Start: 02-01-2022 Hepatitis B surface antibody level LDL CHOLESTEROL [facility] Start: 01-28-2022 Urine microalbumin profile [facility] Start: 11-24-2021 COVID-19 VACCINE (4 - Booster for Pfizer series) COVID-19 VACCINE (4 - Booster for Pfizer series) [facility] Start: 09-10-2021 ADVANCE DIRECTIVE DISCUSSION ADVANCE DIRECTIVE DISCUSSION [facility] Start: 06-13-2016 SHINGRIX VACCINE (1 of 2) SHINGRIX VACCINE (1 of 2) [facility] Start: 06-13-2016 SHINGRIX VACCINE (2 of 3) SHINGRIX VACCINE (2 of 3) [facility] Start: 2010 HEPATITIS B (1 of 3 - Risk 3-dose series) HEPATITIS B (1 of 3 - Risk 3-dose series) [facility] Start: 2010 Hepatitis B Vaccine (1 of 3 - Risk 3-dose series) Hepatitis B Vaccine (1 of 3 - Risk 3-dose series) [facility] Start: 2010 RSV Vaccine (1 - 1-dose 60+ series) RSV Vaccine (1 - 1-dose 60+ series) [facility] Start: 2000 Screening for malignant neoplasm of lung Lung Cancer Screening [facility] Start: 1995 COLOGUARD (FIT-DNA) COLOGUARD (FIT-DNA) [facility] Start: [address] COLONOGRAPHY [facility] Start: 1995 Screening for malignant neoplasm of colon [facility] Start: 1995 SIGMOIDOSCOPY SIGMOIDOSCOPY [facility] Start: 1969 HEPATITIS B (1 of 3 - Risk 3-dose series) HEPATITIS B (1 of 3 - Risk 3-dose series) [facility] Start: 1968 Anxiety Screening Anxiety Screening [facility] Start: 1968 BP CONTROLLED (<130/80) BP CONTROLLED (<130/80) [facility] Start: 1968 zzBP Controlled (<130/80) (Retired) zzBP Controlled (<130/80) (Retired) [facility] Start: 1956 PNEUMOCOCCAL: 65+ (1 - PCV) PNEUMOCOCCAL: 65+ (1 - PCV) [facility] Bacteria identified in Urine by Culture URINE CULTURE Microbiology Routine Episode of change in speech Balance problem 07/29/2024 2:03 PM EST [facility] CARDIAC IMPLANTABLE DEVICE CHECK CARDIAC IMPLANTABLE DEVICE CHECK PACEART Routine Pacemaker 1 Occurrences starting 08/18/2024 [facility] Work Phone: Comment on above: 1 Occurrences starting 08/18/2024 CARDIAC IMPLANTABLE DEVICE CHECK CARDIAC IMPLANTABLE DEVICE CHECK PACEART Routine Pacemaker 02/27/2025 12:29 PM EDT [facility] Work Phone: CARDIAC IMPLANTABLE DEVICE CHECK CARDIAC IMPLANTABLE DEVICE CHECK PACEART Routine Paroxysmal ventricular tachycardia (HCC) Atrial fibrillation, persistent (HCC) ICD (implantable cardioverter-defibrillator ) in place 1 Occurrences starting 02/28/2025 [facility] Comment on above: 1 Occurrences starting 02/28/2025 End: 08-22-2023 CBC panel - Blood by Automated count CBC Lab Routine Type 2 diabetes mellitus with diabetic mononeuropathy, with long-term current use of insulin (HCC) Every 6 months for 12 Occurrences starting 08/22/2022 until 08/22/2023 [facility] Work Phone: Comment on above: Every 6 months for 12 Occurrences starti ng 08/22/2022 until 08/22/2023 End: 08-25-2025 CBC panel - Blood by Automated count COMPLETE BLOOD COUNT Lab Routine Type 2 diabetes mellitus with diabetic mononeuropathy, with long-term current use of insulin (HCC) Every 6 months for 12 Occurrences starting 08/25/2024 until 08/25/2025 [facility] Comment on above: Every 6 months for 12 Occurrences starti ng 08/25/2024 until 08/25/2025 End: 08-22-2023 Comprehensive metabolic 2000 panel - Serum or Plasma COMP METABOLIC PANEL Lab Routine Type 2 diabetes mellitus with diabetic mononeuropathy, with long-term current use of insulin (HCC) Every 6 months for 12 Occurrences starting 08/22/2022 until 08/22/2023 [facility] Work Phone: Comment on above: Every 6 months for 12 Occurrences starti ng 08/22/2022 until 08/22/2023 End: 08-25-2025 Comprehensive metabolic 2000 panel - Serum or Plasma COMPREHENSIVE METABOLIC PANEL Lab Routine Type 2 diabetes mellitus with diabetic mononeuropathy, with long-term current use of insulin (HCC) Every 6 months for 12 Occurrences starting 08/25/2024 until 08/25/2025 [facility] Comment on above: Every 6 months for 12 Occurrences starti ng 08/25/2024 until 08/25/2025 End: 08-28-2025 CT Head WO and W contrast IV CT BRAIN WO/W IVCON Radiology Routine Episode of change in speech Balance problem 1 Occurrences starting 07/29/2024 until 08/28/2025 [facility] Work Phone: Comment on above: 1 Occurrences starting 07/29/2024 until 08/28/2025 End: 07-04-2024 ECG COMPLETE ECG COMPLETE ECG Routine Atrial fibrillation, persistent (HCC) Dual implantable cardioverter-defibrillator in situ 1 Occurrences starting 07/04/2023 until 07/04/2024 [facility] Work Phone: Comment on above: 1 Occurrences starting 07/04/2023 until 07/04/2024 ECG COMPLETE ECG COMPLETE ECG Routine Paroxysmal ventricular tachycardia (HCC) 1 Occurrences starting 09/23/2023 [facility] Work Phone: Comment on above: 1 Occurrences starting 09/23/2023 End: 08-18-2025 ECG COMPLETE ECG COMPLETE ECG Routine Pacemaker 1 Occurrences starting 08/18/2024 until 08/18/2025 [facility] Comment on above: 1 Occurrences starting 08/18/2024 until 08/18/2025 End: 02-28-2026 ECG COMPLETE ECG COMPLETE ECG Routine Paroxysmal ventricular tachycardia (HCC) Atrial fibrillation, persistent (HCC) ICD (implantable cardioverter-defibrillator ) in place 1 Occurrences starting 02/28/2025 until 02/28/2026 [facility] Work Phone: Comment on above: 1 Occurrences starting 02/28/2025 until 02/28/2026 End: 01-27-2023 Echocardiography ECHO Cardiology Routine Paroxysmal VT (HCC) 1 Occurrences starting 01/27/2022 until 01/27/2023 [facility] Work Phone: Comment on above: 1 Occurrences starting 01/27/2022 until 01/27/2023 End: 12-19-2025 Echocardiography ECHO Cardiology Routine Chronic systolic heart failure (HCC) Other hypervolemia 1 Occurrences starting 12/19/2024 until 12/19/2025 [facility] Comment on above: 1 Occurrences starting 12/19/2024 until 12/19/2025 End: 11-06-2024 EGD DIAGNOSTIC EGD DIAGNOSTIC Endoscopy Routine Anemia, unspecified type 1 Occurrences starting 11/06/2023 until 11/06/2024 [facility] Work Phone: Comment on above: 1 Occurrences starting 11/06/2023 until 11/06/2024 End: 11-06-2024 Flexible sigmoidoscopy study COLONOSCOPY DIAGNOSTIC Endoscopy Routine Anemia, unspecified type History of colonic polyps 1 Occurrences starting 11/06/2023 until 11/06/2024 [facility] Work Phone: Comment on above: 1 Occurrences starting 11/06/2023 until 11/06/2024 End: 08-22-2023 Hemoglobin A1c in Blood HGB A1C Lab Routine Type 2 diabetes mellitus with diabetic mononeuropathy, with long-term current use of insulin (HCC) Every 3 months for 24 Occurrences starting 08/22/2022 until 08/22/2023 [facility] Work Phone: Comment on above: Every 3 months for 24 Occurrences starti ng 08/22/2022 until 08/22/2023 End: 08-25-2025 Hemoglobin A1c in Blood HEMOGLOBIN A1C Lab Routine Type 2 diabetes mellitus with diabetic mononeuropathy, with long-term current use of insulin (HCC) Every 3 months for 24 Occurrences starting 08/25/2024 until 08/25/2025 [facility] Work Phone: Comment on above: Every 3 months for 24 Occurrences starti ng 08/25/2024 until 08/25/2025 End: 08-22-2023 Lipid 1996 panel - Serum or Plasma LIPID PANEL BASIC Lab Routine Type 2 diabetes mellitus with diabetic mononeuropathy, with long-term current use of insulin (HCC) Every 6 months for 12 Occurrences starting 08/22/2022 until 08/22/2023 [facility] Work Phone: Comment on above: Every 6 months for 12 Occurrences starti ng 08/22/2022 until 08/22/2023 End: 08-25-2025 Lipid 1996 panel - Serum or Plasma LIPID PANEL BASIC Lab Routine Type 2 diabetes mellitus with diabetic mononeuropathy, with long-term current use of insulin (HCC) Every 6 months for 12 Occurrences starting 08/25/2024 until 08/25/2025 [facility] Comment on above: Every 6 months for 12 Occurrences starti ng 08/25/2024 until 08/25/2025 Patient Education ED Dog Bite ED Laceration Extremity ED Skin Tear (Skin Avulsion) [facility] Work Phone: SURGICAL PATHOLOGY [facility] Work Phone: Comment on above: Release Upon Ordering for 1 Occurrences starting 02/05/2024, 1 completed End: 08-22-2023 Thyrotropin [Units/volume] in Serum or Plasma TSH BLD Lab Routine Type 2 diabetes mellitus with diabetic mononeuropathy, with long-term current use of insulin (HCC) Every 3 months for 24 Occurrences starting 08/22/2022 until 08/22/2023 [facility] Work Phone: Comment on above: Every 3 months for 24 Occurrences starti ng 08/22/2022 until 08/22/2023 End: 08-25-2025 Thyrotropin [Units/volume] in Serum or Plasma THYROID STIMULATING HORMONE Lab Routine Type 2 diabetes mellitus with diabetic mononeuropathy, with long-term current use of insulin (HCC) Every 3 months for 24 Occurrences starting 08/25/2024 until 08/25/2025 [facility] Comment on above: Every 3 months for 24 Occurrences starti ng 08/25/2024 until 08/25/2025 End: 12-05-2024 US Abdomen RUQ US ABD RIGHT UPPER QUADRANT Radiology Routine Abnormal finding on imaging of liver Elevated alkaline phosphatase level 1 Occurrences starting 11/06/2023 until 12/05/2024 [facility] Work Phone: Comment on above: 1 Occurrences starting 11/06/2023 until 12/05/2024 US Abdomen RUQ US ABD RIGHT UPP ER QUADRANT Radiology Routine Abnormal finding on imaging of liver Elevated alkaline phosphatase level 11/16/2023 11:23 AM EST [facility] Work Phone: End: 04-24-2026 XR Pelvis and Hip - right AP and Lateral frog XR HIP GENERAL 3V PELV/AP/LAT RIGHT Radiology Routine Arthritis of right hip 1 Occurrences starting 03/25/2025 until 04/24/2026 [facility] Work Phone: Comment on above: 1 Occurrences starting 03/25/2025 until 04/24/2026 XR Pelvis and Hip - right AP and Lateral frog XR HIP GENERAL 3V PELV/AP/LAT RIGHT Radiology Routine Arthritis of right hip 03/25/2025 11:23 AM EDT [facility] End: 02-18-2026 XR Ribs - right 2 Views XR RIBS 2V AP/OBL RIGHT Radiology Routine Fall, initial encounter 1 Occurrences starting 01/19/2025 until 02/18/2026 [facility] Comment on above: 1 Occurrences starting 01/19/2025 until 02/18/2026 XR Ribs - right 2 Views XR RIBS 2V AP/OBL RIGHT Radiology Routine Fall, initial encounter 01/19/2025 11:45 AM EDT [facility] XR WRIST GENERAL 3V PA/LAT/OBL LEFT XR WRIST GENERAL 3V PA/LAT/OBL LEFT Radiology Routine Ganglion cyst Left wrist pain Primary osteoarthritis of left wrist Ordered: 08/31/2022 [facility] Work Phone: Comment on above: Ordered: 08/31/2022 [facility] Immun[facility] Immunization Date Immunization Notes Care Provider Fa [facility] 05-26-2025 tetanus toxoid, redu sandy diphtheria toxoid, and acellular pertussis vaccine, adsorbed Dr. 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: [facility] 06-20-2024 influenza virus vacc ine, unspecified formulation Christoph Chavis MD Work Phone: [facility] 09-13-2023 respiratory syncytia l virus (RSV) vaccine, adjuvanted (AREXVY) Christoph Chavis MD Work Phone: [facility] 05-25-2023 influenza (HD-IIV4) vaccine, age 65+ yr, high dose, quadrivalent, PF (FLUZONE HIGH-DOSE) Lillian Hanks PA-C Work Phone: [facility] 05-25-2023 influenza virus vacc ine, unspecified formulation Dee Ashley MD Work Phone: [facility] 05-23-2022 influenza, high-dose , quadrivalent vaccine (FLUZONE HIGH DOSE QUADRIVALENT) Eduardo Navarro BOND WRITER.[employer] Work Phone: [facility] 05-23-2022 influenza virus vacc ine, unspecified formulation Dee Ashley MD Work Phone: [facility] 06-11-2021 influenza, injectabl e, quadrivalent, preservative free [facility] 06-11-2021 influenza, seasonal, injectable [facility] [facility]2021 influenza, seasonal, injectable, preservative free Dee Ashley MD Work Phone: [facility] 12-03-2020 COVID-19 vaccine, ag e 12+ yr (PFIZER-BIONTECH - PURPLE TOP) Dee Ashley MD Work Phone: [facility] Work Phone: 11-13-2020 COVID-19 vaccine, ag e 12+ yr (PFIZER-BIONTECH - PURPLE TOP) Dee Ashley MD Work Phone: [facility] Work Phone: 07-13-2020 influenza, high-dose , quadrivalent vaccine (FLUZONE HIGH DOSE QUADRIVALENT) Dee Ashlye MD Work Phone: [facility] Work Phone: 05-29-2019 influenza, high dose seasonal, preservative-free Dee Ashley MD Work Phone: [facility] Work Phone: 05-22-2018 influenza, high dose seasonal, preservative-free Dee Ashley MD Work Phone: [facility] Work Phone: 05-02-2017 influenza, high dose seasonal, preservative-free Dee Ashley MD Work Phone: [facility] Work Phone: 05-12-2016 pneumococcal polysaccharide vaccine, 23 valent Dee Ashley MD Work Phone: [facility] Work Phone: 04-18-2016 influenza, high dose seasonal, preservative-free Dee Ashley MD Work Phone: [facility] Work Phone: 04-18-2016 zoster vaccine, live Dee sAhley MD Work Phone: [facility] Work Phone: 08-09-2015 pneumococcal conjuga te vaccine, 13 valent Dee Ashley MD Work Phone: [facility] Work Phone: 07-05-2015 influenza, high dose seasonal, preservative-free Dee Ashley MD Work Phone: [facility] Work Phone: 07-05-2015 influenza, injectabl e, quadrivalent, contains preservative Dee Ashley MD Work Phone: [facility] 08-27-2014 influenza, seasonal, injectable Dee Ashley MD Work Phone: [facility] 07-17-2013 influenza virus vacc ine, unspecified formulation Dee Ashley MD Work Phone: [facility] 07-05-2012 influenza virus vacc ine, whole virus Dee Ashley MD Work Phone: [facility] 01-29-2012 tetanus toxoid, redu sandy diphtheria toxoid, and acellular pertussis vaccine, adsorbed Dee Ashley MD Work Phone: [facility] 06-07-2011 influenza virus vacc ine, unspecified formulation Dee Ashley MD Work Phone: [facility] 07-11-2010 influenza virus vacc ine, unspecified formulation Dee Ashley MD Work Phone: [facility] 06-09-2009 influenza virus vacc ine, unspecified formulation Dee Ashley MD Work Phone: [facility] 07-15-2008 influenza virus vacc ine, unspecified formulation Dee Ashley MD Work Phone: [facility] Work Phone: 07-09-2007 influenza virus vacc ine, unspecified formulation Dee Ashley MD Work Phone: [facility] Work Phone: 08-06-2006 influenza virus vacc ine, unspecified formulation Dee Ashley MD Work Phone: [facility] 02-22-2001 pneumococcal polysaccharide vaccine, 23 valent Dee Ashley MD Work Phone: [facility] Work Phone: 01-08-2001 diphtheria and tetan us toxoids, adsorbed for pediatric use Dee Ashley MD Work Phone: [facility] Work Phone: Payers Date Payer Category Payer Self-pay [id number] 2023 Medicare (Managed Care) HU[employer]NA G OLD PLUS [id number] 2023 Private Health Insurance [id number] 2015 Private Health Insurance HUMANA HUMANA MEDICARE SUPPLEMENT [id number] 2015-Present [phone] [address] [place] [id number] Indemnity [id number] 2015 Private Health Insurance [id number] 2011 Medicare MEDICARE MEDICAR E A AND B [id number] 2011-Present [phone] [place] [address] Medicare [id number] 2011 Medicare [id number] Medicare [id number] Medicare MEDICARE PART A B [id number] Unknown [id number] Unknown [id number] Unknown [id number] [id number] Unknown [id number] .[id number] Unknown [id number] [id number] Unknown [id number] .[id number] Unknown [id number] .[id number] Unknown [id number] .[id number] Unknown [id number] .[id number] Unknown [id number] .2.462 Unknown [id number] .2.462 Unknown [id number] .2.462 Unknown [id number] Social History Date Type Detail Facility Start: 06-09-2009 End: 05-26-2025 Tobacco smoking status NHIS Ex-smoker [facility] Work Phone: Start: 03-26-1969 End: 03-26-2009 History of tobacco use Current smoker [facility] Work Phone: Start: 03-26-1969 End: 03-26-2009 History of tobacco use Cigarette Smoker [facility] Work Phone: Start: 11-24-2021 End: 05-25-2025 Alcohol intake Ex-drinker (finding) [facility] Start: 04-15-2020 End: 02-21-2023 History SDOH Alcohol Frequency 1 [facility] Start: 08-06-2020 End: 02-21-2023 History SDOH Alcohol Std Drinks 98 [facility] Start: 04-15-2020 History SDOH Alcohol Comment recovering 1991 [facility] Start: 02-16-2020 End: 02-21-2023 History SDOH Social Connections Phone 2 [facility] Start: 02-16-2020 End: 02-21-2023 History SDOH Social Connections Living 3 [facility] Start: 02-16-2020 End: 02-21-2023 History SDOH Physical Activity DPW 0 [facility] Start: 02-16-2020 End: 02-19-2022 History SDOH Financial 4 [facility] Start: 02-16-2020 Education 17 [facility] Start: 1950 Sex Assigned At Male [facility] Start: 08-08-2021 End: 05-01-2022 Exposure to SARS-CoV-2 (event) Not sure [facility] Work Phone: Start: 02-21-2022 End: 03-03-2022 Exposure to SARS-CoV-2 (event) Unable to assess [facility] Work Phone: Start: 06-09-2009 End: 02-21-2023 Cigarettes smoked current (pack per day) - Reported 1 [facility] Start: 06-09-2009 End: 07-29-2024 Tobacco use and exposure Smokeless tobacco non-user [facility] Work Phone: Start: 06-09-2021 End: 06-09-2021 Tobacco smoking status NHIS Unknown if ever smoked [facility] Start: 02-21-2023 End: 10-16-2024 Social connection and isolation panel [facility] Start: 08-11-2012 In a typical week, h ow many times do you talk on the telephone with family, friends, or neighbors? Patient refused [facility] Are you now , , , , never or living with a partner? [facility] How often do you hav e 6 or more drinks on 1 occasion? Never [facility] How hard is it for y ou to pay for the very basics like food, housing, medical care, and heating Not very hard [facility] Do you feel stress - tense, restless, nervous, or anxious, or unable to sleep at night because your mind is troubled all the time - these days [OSQ] Only a little [facility] (I/We) worried wheth er (my/our) food would run out before (I/we) got money to buy more. DK or Refused [facility] In the past 12 month s, was there a time when you were not able to pay the mortgage or rent on time? No [facility] Start: 04-13-2020 Gender identity Identifies as male gender (finding) [facility] Start: 04-13-2020 Sexual orientation Heterosexual (mirlande solorzano) [facility] Do you feel stress - tense, restless, nervous, or anxious, or unable to sleep at night because your mind is troubled all the time - these days [OSQ] To some extent [facility] (I/We) worried wheth er (my/our) food would run out before (I/we) got money to buy more. Never true [facility] Medical Equipment Procedure Code Equipment Code Equipment Original Text Equipment Identifier Dates Total cholecystectomy with exploration of common bile duct Ligation clip, synthetic polymer, non-bioabsorbabl e [id number] FDA Start: 06-10-2021 Total cholecystectomy with exploration of common bile duct Ligation clip, synthetic polymer, non-bioabsorbabl e [id number] FDA Start: 06-10-2021 Total cholecystectomy with exploration of common bile duct Ligation clip, synthetic polymer, non-bioabsorbabl e [id number] FDA Start: 06-10-2021 Cystoscopy ([id number]) Polymeric ureteral stent [id number] FDA Start: 10-12-2024 [id number] Start: 06-19-2011 Comment on above: three times daily as needed. Dx. 250.00 USE TWICE DAILY WITH INSULIN DOSE Icd-D142 [id number]_[facility] Start: 09-17-2018 [id number] [place] [place] 4-Site G [id number]_[facility] Start: 03-11-2012 [id number] [place] Ii [place] Ez [id number]_[facility] Start: 03-11-2012 Goals Date Patient Goal Desired Activity /State Personal health goal Personal health goal Functional Status Date Assessment Result Facility 03-03-2015 Are you deaf, or do you have serious difficulty hearing No 03/03/2015 8:22 AM Shelia Rodriguez MA No [facility] 03-03-2015 Are you blind, or do you have serious difficulty seeing, even when wearing glasses No 03/03/2015 8:22 AM Shelia Rodriguez MA [facility] 03-03-2015 Do you have serious difficulty walking or climbing stairs No 03/03/2015 8:22 AM Shelia Rodriguez MA [facility] 03-03-2015 Do you have difficul ty dressing or bathing No 03/03/2015 8:22 AM Shelia Rodriguez MA [facility] 03-03-2015 Because of a physica l, mental, or emotional condition, do you have difficulty doing errands alone such as visiting a physician's office or shopping No 03/03/2015 8:22 AM Shelia Rodriguez MA [facility] Mental Status Date Assessment Result Facility 03-03-2015 Because of a physica l, mental, or emotional condition, do you have serious difficulty concentrating, remembering, or making decisions No 03/03/2015 8:22 AM Shelia Rodriguez MA [facility] Clinical Notes 02-21-2016 to 07-13-2025 Note Date & Type Note Facility 07-13-2025 Note [facility] 07-09-2025 Note [facility] 07-08-2025 Note [facility] 06-30-2025 Note [facility] 06-29-2025 Note [facility] 06-27-2025 Note HNO ID: [id number] Author: YANCI OSEGUERA RN Service: Care Management Author Type: Registered Nurse Type: Care Mgt Progress Note Filed: 06/27/2025 12:24 Note Text: CARE MANAGEMENT DISCHARGE NOTE SERVICE DATE: 06/27/2025 SERVICE TIME: 12:22 PM Admission Date: 06/25/2025 DISCHARGE ARRANGEMENT Discharge Arrangement: Home with Self Care CAREGIVER ASSESSMENT: Caregiver Assessment Caregiver is ready, willing and able to meet the patient's needs as recommended by the inter-professional team: No Caregiver needed TRANSPORTATION ARRANGEMENTS: Transportation Arrangements: Car Destination: home, Kiley Nolasco (SPO) HANDOFF COMMUNICATION: Primary Care Physician Name/Phone: Dee Ashley notified via SOC. Other Caregiver Name/Phone: Nephrology: Dr. Katz notified via SOC. Additional Information: Discharge written for patient to go home. Patient agreeable to discharge plan and denies needs. Kiley Nolasco (SPO) to transport. Primary Care Physician Name/Phone: Dee Ashley notified via SOC. Nephrology: Dr. Katz notified via SOC. Bedside nurse, PRIVACY ANALYST, pt and family aware. SIGNATURE: Yanci Oseguera RN PATIENT NAME: Yazan Nolasco DATE: June 27, 2025 TIME: 12:22 PM PAGER/CONTACT #: [phone] [facility] 06-26-2025 Note HNO ID: [id number] Author: YANCI OSEGUERA RN Service: Care Management Author Type: Registered Nurse Type: Care Mgt Initial Assessment Filed: 06/26/2025 16:07 Note Text: CARE MANAGEMENT: ASSESSMENT AND DISCHARGE PLAN SERVICE DATE: June 26, 2025 SERVICE TIME: 4:05 PM PCP: Dee Ashley MD Primary Contact: Extended Emergency Contact Information Primary Emergency Contact: Kiley Nolasco Address: [address] [place] [address] [place] [address] Mobile Relation: Spouse Admission Status: Inpatient Insurance Provider: [employer] Discharge Planning requested by: Per Department Practice Potential Transition Plans Home Advance Directives Current Advance Directive: None [employer]p [employer] Attempted to Assist with AD Completion: Yes Action: Education Provided Current Living Arrangements and Support Lives with: Spouse/significant other Type of Residence: Private Residence (House) Does the patient have to climb stairs at home?: stairs outside the home (1 step to enter. First floor bed/bath) Support: Spouse/significant other Independent: Ambulation, Bathe/Shower, Dress, Meals/Meal Prep, Going to the bathroom, Medication Management, Transportation to appointments/community Current Services/Equipment Current Post-Acute Service(s): None Discharge Planning Patient Goal(s): Be able to go home, General wellness Evans of Choice Explained: Evans of Choice Given: No Reason Not Given: No placements necessary Discharge Planning Participant(s): Caregiver, Patient PCP: Dee Ashley MD p. [phone] f. [phone] Post-Acute Discharge Plan: Caregiver Assessment: Caregiver is ready, willing and able to meet the patient's needs as recommended by the inter-professional team: No Caregiver needed Needs Prior to Discharge: To Be Determined Transport at Discharge: Vince Nolasco (SPO) Destination: home CM met with pt at bedside to complete this assessment.. Pt is AANDOx4. CM introduced herself and explained CM role. Yazan Nolasco is a 75 year old male. Patient presents with c/o low hgb on outpatient blood work. Patient has been experiencing increased fatigue and Shortness of Breath. He states that he has needed a blood transfusion in the past but was unsure why. He states he recently cut his eliquis dosing down to 1 dose a day on my own, because of bleeding from a wound that persisted and dark tarry stools. Pt lives with: his in a house with one step to enter and first floor bed and bath. He reports his only DME is his CPAP and 3L O2 that bleeds into his CPAP, from [facility]. Expected dc to: Home. will transport on discharge. CM dept to follow. Please see treatment team for assigned CM. SIGNATURE: Yanci Oseguera RN PATIENT NAME: Yazan Nolasco DATE: June 26, 2025 TIME: 4:05 PM CONTACT #: [phone] [facility] 06-26-2025 Note [facility] 06-26-2025 Note HNO ID: [id number] Author: CHRISSIE ULLOA MD Service: Hospital Medicine Author Type: Physician Type: Progress Notes Filed: 06/26/2025 09:06 Note Text: DEPARTMENT OF HOSPITAL MEDICINE PROGRESS NOTE SERVICE DATE: 06/26/2025 SERVICE TIME: 9:01 AM Hospital Medicine/Primary Attending: Chrissie Ulloa MD NIGHT AND WEEKEND COVERAGE: [place] COVERAGE: Days: [phone], please page attending physician. Nights: [phone], please page [place] Hospital[facility] Night coverage pager [phone]. Subjective INTERVAL HPI: - Additional 2units PRBCs ordered, awaiting AM CBC - Currently NPO fro EGD today - No complaints currently - c/f cirrhosis on RUQUS Current Facility-Administered Medications Medication Dose Route Frequency NaCl 0.9% iv flush bag 20 mL INTRAVENOUS PRN pantoprazole 40 mg injection (PROTONIX) 40 mg INTRAVENOUS BID AC (0600/1600) Followed by [START ON 06/29/2025] pantoprazole 40 mg injection (PROTONIX) 40 mg INTRAVENOUS DAILY (6 AM) amLODIPine 5 mg tab(s) (NORVASC) 5 mg ORAL DAILY lisinopril 40 mg tab(s) (ZESTRIL) 40 mg ORAL DAILY lovastatin 20 mg tab(s) (MEVACOR) 20 mg ORAL q 48 H metoprolol tartrate (short acting) 100 mg tab(s) (LOPRESSOR) 100 mg ORAL BID dextrose 40 % 15 g 15 g ORAL PRN Or glucagon 1 mg injection 1 mg INTRAMUSCULAR PRN Or dextrose 10% iv bolus 12.5 g INTRAVENOUS PRN buPROPion XL 150 mg tab(s) (WELLBUTRIN XL) 150 mg ORAL DAILY DULoxetine DR 60 mg cap(s) (CYMBALTA) 60 mg ORAL DAILY allopurinol 200 mg tab(s) (ZYLOPRIM) 200 mg ORAL DAILY apremilast 30 mg tab(s) (OTEZLA) 30 mg ORAL DAILY gabapentin 600 mg tab(s) (NEURONTIN) 600 mg ORAL AT BEDTIME levothyroxine 50 mcg tab(s) (SYNTHROID) 50 mcg ORAL DAILY (6 AM) tamsulosin 0.8 mg cap(s) (FLOMAX) 0.8 mg ORAL DAILY sodium chloride 0.9 % (flush) 2-10 mL (BD POSIFLUSH) 2-10 mL INTRAVENOUS DIRECTED PRN And perflutren lipid microspheres 1.1 mg/mL 1.3 mL injection (DEFINITY) 1.3 mL INTRAVENOUS DIRECTED PRN insulin lispro injection (rapid acting) (ADMElog) SUBCUTANEOUS w MEALS insulin glargine 5 Units pen (long acting) 5 Units SUBCUTANEOUS AT BEDTIME ipratropium-albuterol 3 mL nebulizer solution (DUONEB) 3 mL INHALATION QID ferric gluconate 125 mg in NaCl 0.9% 100 mL (FERRLECIT) 125 mg INTRAVENOUS DAILY AT 6 PM Objective PHYSICAL EXAM: BP 158/81 Pulse 90 Temp (Src) 98.3 (Oral) Resp 16 Ht 5' 9.5 (1.77m) Wt 281 lb 4.9 oz (127.6kg) SpO2 94% BMI 40.96 kg/(m2). O2 Therapy: Room Air, Liters (Numeric Only): 2 Physical Exam Performed GENERAL: Alert, no distress, cooperative SKIN: Skin color, texture, turgor normal. No rashes or lesions. HEAD/SINUSES: No significant findings EYES: EOMI BACK: Back symmetric, Normal curvature, ROM normal LUNGS: Lungs clear to auscultation, Good diaphragmatic excursion CARDIAC: Normal S1 and S2; no rubs, murmurs, or gallops ABDOMEN: Obese abdomen EXTREMITIES: 1+ edema bilaterally NEURO: Grossly normal cognition, motor function, and cranial nerves III-XII Lines, Drains, and Airways Line Duration Peripheral 06/25/[address] [place] [address] Right Antecubital 20 Gauge <1 day Reviewed lines and needs to be continued: REASONS: Intravenous fluids DATA: Diagnostic tests reviewed for today's visit: Most recent labs Most recent imaging Most recent EKG HOSPITAL COURSE: Mr. Yazan Nolasco is a 75 y/o M with a PMH of CAD, atrial fibrillation on eliquis, chronic pain on meloxicam presenting to the hospital with abnormal labs; notable Hgb of <7, PLT 70, leukopenia on arrival. Potential for multiple processes in place (iron deficiency anemia, pancytopenia from alternative cause) and thus will involve both GI and Hematology for evaluation. Plan for EGD today given black stools prior to arrival and significant risk factors. Of note, patient has cirrhotic liver morphology on RUQUS. GI following. Acute Blood Loss Anemia Pancytopenia Hx of iron deficiency anemia - Melena now resolved, previously reports epistaxis/melena last episode five weeks ago - Symptomatic with progressive Shortness of Breath, lightheadedness - IV PPI BID - c/f gastritis/duodenitis with anticoagulation + NSAID - Hematology consulted as all blood lines deplete - Transfuse Hgb <7 - Trend CBC BID for now - GI on consult - Heme on consult - RUQUS with cirrhotic changes - B12 >2000 - Folate pending - TSH WNL - Iron 21, TIBC 306, Ferritin 27.7 - d/c NSAID use Atrial Fibrillation - Continue metoprolol with hold parameters - Eliquis on hold Cirrhotic morphology of liver Fluid Retention - Started on oral torsemide as per PCP for fluid retention and 50 pound weight gain over past 4 months - RUQUS reviewed, cirrhotic liver morphology with portla hypertension - Further cirrhosis workup as per GI - Reinitiate diuretic as getting transfusions Type 2 Diabetes Mellitus - Home regimen: 25 units lantus qHS - Inpatient regimen: 10 units lantus, 3 u (more content not included)... [facility] 06-26-2025 Note HNO ID: [id number] Author: ERON NATH PA-C Service: Hospital Medicine Author Type: Physician Carbonator Type: Plan of Care Filed: 06/26/2025 01:14 Note Text: BP 126/66 Pulse 92 Temp 37.4 ?C (99.3 ?F) (Oral) Resp 17 Ht 176.5 cm (5' 9.5) Wt 127.6 kg (281 lb 4.9 oz) SpO2 95% BMI 40.95 kg/m? Hgb 6.8->6.9 s/p 2U PRBCs and IV iron. No overt blood loss noted. Will order 2 more units at this time and monitor. Eron Nath PA-C 1:14 AM [facility] 06-25-2025 Note [facility] 06-01-2025 Note [facility] 05-28-2025 Note [facility] 05-26-2025 Discharge summary [facility] 05-26-2025 Radiology Diagnostic study note [facility] Imaging Services [address] [place] [address] Elbow min 3 Views MR#: [id number] Acct: [id number] Name: YAZAN NOLASCO Rep #: [id number] : 1950 M 75 From: Carmelo Hoover MD PCP: Dr. Dee Ashley MD Status: REG E R Study:Elbow min 3 Views Date of Exam: Exam# [id number] Ordering Dr: Marielena Zimmerman MD PROCEDURE: LEFT ELBOW MIN 3 VIEWS 05/26/2025 REASON FOR EXAM: INJURY/PAIN TECHNIQUE: Procedure Code: GUS Modality: DX Procedure: ELBOW MIN 3 VIEWS Laterality: Left COMPARISON: None. FINDINGS: No acute fracture or dislocation appreciated. Alignment is anatomic. Mild degenerative arthrosis of the ulnohumeral articulation. There is an elbow joint effusion, which raises concern for possible occult nondisplaced fracture. Small amorphous calcifications adjacent to the medial and lateral humeral epicondyles likely related to mild chronic degenerative epicondylitis. Prominent generalized soft tissue swelling about the elbow at the dorsal aspect. RAD/Elbow min 3 Views IMPRESSION: No appreciable acute fracture or dislocation, although there is prominent soft tissue swelling and elbow joint effusion which raises concern for possible occult nondisplaced fracture. Mild degenerative changes. Reading Location: [facility] CC: Dr. Dee Ashley MD; Dr. Sim Zimmerman MD ~ Feed Blender: Signed [facility] 05-26-2025 Discharge summary Note Date/Time May 26, 2025 9:43pm [facility] Medical Records Department [address] [place] [id number] Emergency Department Summary 05/26/25 MR#: [id number] Acct: [id number] Name: YAZAN NOLASCO Rep #:[id number] : 1950 75 From: Sim Zimmerman MD PCP: Dr. Dee Ashley MD Status:REG E R Location: ED HPI History of Present Illness Chief Complaint: Laceration Detail of Chief Complaint: Dog bite left elbow and proximal medial left thigh Informant: patient Onset/Context/Timing Onset: Hours Mechanism/Context: Blunt Injury and Puncture Wound Location of pain/injuries: Left elbow and Left thigh Quality of Pain: Aching Location: Left elbow and thigh Current Severity: Mild Maximum Severity: Moderate Worsened by: Palpation Relieved by: Remaining still Associated Symptoms Associated Symptoms: Negative for Parasthesias, Weakness, Loss of function, Inability to ambulate, Loss of consciousness or Amnesia Narrative Narrative: Patient is a 75-year-old male. He is on anticoagulant for atrial fibs. He alsohas history of diabetes and hypertension. His 290+ pound dogs were fighting. He attempted to break them apart. When he did this he sustained a bite to the lateral left elbow and a bite left medial proximal thigh. Tetanus is up-to-date. He denies paresthesia, anesthesia or weakness in his left upper extremity or lower extremity. Dogs immunization is up-to-date as well. Prior similar symptoms: No Recent Illness/Hospitalization: [facility] Medical History Injury of head and neck Cancer Hepatitis Former smoker CPAP (continuous positive airway pressure) dependence Sleep apnea Atrial fibrillation ICD (implantable cardioverter-defibrillator) in place Pacemaker Hypertension Acute calculous cholecystitis Hyperlipemia Diabetic neuropathy HTN (hypertension) Diabetes Home Medications ?Medication ?Instructions ?Recorded ?Last Taken ?Type allopurinol 100 mg tablet 200 mg PO DAILYCM GOUT 05/1210/09/24 History aspirin 81 mg chewable tablet 81 mg PO DAILY@0800 HEAL TH 05/12/14 10/08/24 History atorvastatin 20 mg tablet 20 mg PO QODAY CHOLESTEROL 0 05/12/14 10/07/24 History duloxetine 60 mg capsule,delayed 60 mg PO DAILY MOOD 0 05/12/14 10/09/24 History release hydrochlorothiazide 25 mg tablet 25 mg PO DAILY BP 10/2410/09/24 History Held on 10/13/24. Instructions: Hold for 1 week and restart at lower dose 12.5 mg daily. lisinopril 40 mg tablet 40 mg PO DAILY BP 05/12/14 0 10/09/24 History Held on 10/13/24. Instructions: Hold for 1 week and follow with BMP with PCP potassium chloride 10 mEq 10 meq PO BID SUPPLEMENT 10/2410/09/24 History tablet,extended release (Klor-Con) acetaminophen 500 mg tablet 1,000 mg PO BID PRN Pain 0 06/09/21 06/09/21 07:00 History amlodipine 5 mg tablet 5 mg PO DAILY BP 06/09/21 History magnesium oxide 400 mg PO BID SUPPLEMENT 10/09/24 History metoprolol tartrate 100 mg tablet 100 mg PO BID HEART 06/09/21 10/09/24 History tamsulosin 0.4 mg capsule 0.8 mg PO DAILY PROSTATE 10/08/24 History warfarin 5 mg tablet 5 mg PO MOTUWETH BLOODTHINNE R 06/09/21 10/09/24 History apremilast 30 mg tablet (Otezla) 30 mg PO DAILY ARTHRI TIS 10/09/24 10/08/24 History bupropion HCl 150 mg 24 hr tablet, 150 mg PO DAILY MOO D 10/09/24 10/09/24 History extended release clobetasol 0.05 % scalp solution See Rx Instructions t opical 10/09/24 10/08/24 History .COMPLEX SCALP gabapentin 600 mg tablet 600 mg PO QHS PAIN 10/09/24 10/08/24 History warfarin 2.5 mg tablet 2.5 mg PO SUFRSA BLOOD THNNE R 10/09/24 10/03/24 History insulin glargine 100 unit/mL (3 12 unit (0.12 mL) subc ut QHS DM 30 10/13/24 06/07/21 Rx mL) subcutaneous pen (Lantus days #0 mL Solostar U-100 Insulin) cephalexin 500 mg capsule 500 mg PO Q12H 7 days #14 ca ps 11/10/24 Unknown Rx amoxicillin 875 mg-potassium 875 mg PO Q12H #10 TABLET S 05/26/25 Unknown Rx clavulanate 125 mg tablet Allergy/AdvReac Type Severity Reaction Status Date / Time No Known Allergies Allergy Verified 05/26/25 18:06 Surgical History Status post laparoscopic cholecystectomy (~06/2021) Social History household members: spouse housing: house Smoking Status: Former smoker ROS ROS ED Constitutional Constitutional ED: Denies chills, fever(s), subjective or sweats Musculoskeletal Musculoskeletal: Denies arthralgias, back pain, myalgias or neck pain Neurologic Neurologic: Denies headache(s), paresthesias or weakness Hematologic/Lymphatic Hematologic/Lymphatic: Denies easy bleeding or easy bruising EXAM Physical Exam Const Vital Signs: 05/26/25 18:06 05/26/25 20:20 Temperature 96.7 F L Temperature Source Temporal Pulse Rate 107 H 99 Respiratory Rate 18 18 Blood Pressure 183/78 H 146/72 H Blood Pressure Mean 113 96 Pulse Ox 92 96 Oxygen Delivery Method Room Air Room Air Positive well nourished and well developed General Appearance ED: well developed HEENT atraumatic; Negative for tenderness Eyes PERRL and EOMs intact bilaterally Resp normal respiratory effort Cardio Rate: tachycardic Rhythm: abnormal rhythm Extremity full ROM; Negative for normal to inspection Extremity Narrative: Patient has multiple bruises due to the fact he is on Eliquis. He has a dog bite lateral left elbow. It appears to be over the lateral epicondyle. There is no pain the patient of the lateral medial epicondyle. There may be involvement of muscle. Median, radial and ulnar function tact. Radial pulses palpable. There is also a laceration proximal medial thigh. There is no tenderness subcutaneous air. There is bruising noted. Neuro oriented x3, CN's II-XII intact bilaterally, moves all extremities, no focal motor deficits, no sensory deficits noted and No gait normal [place] Coma Scale: document GCS findings Spontaneous Obeys Commands Oriented 15 Psych mental status grossly normal and thought process normal Skin Skin Narrative: Laceration left elbow and left thigh MDM MDM MDM Narrative Medical decision making narrative: X-ray of the elbow was obtained to evaluate for fracture and/or foreign body. Wounds will need suture. Since he has no antibiotic allergy he will be discharged on Augmentin for prophylaxis status post dog bite. There are 3 wounds there is a 1.5 cm laceration mid proximal left thigh. There is a puncture wound posterior distal arm and a small laceration is 1 cm in length. There is also a 5.6 cm laceration on the lateral aspect of the left elbow. Patient was prepped draped sterile manner. All wounds were anesthetized with 1%lidocaine for local infiltration. Wounds were irrigated with a total of 500 cc of normal saline. Predominantly the larger lateral elbow wound was irrigated. The laceration on the thigh was closed using 4-0 Ethilon. A total of 3 stitcheswas placed. The 5.6 cm laceration required 10 stitches using 4-0 Ethilon. And the 1 cm posterior laceration was closed with 1 horizontal stitch using 4-0 Ethilon. Patient received first dose of antibiotics. informing that his tetanus is not up-to-date therefore will order. There is a skin tear to right forearm that was not sutured. This was 4 cm in length The elbow wound was explored. It did not appear to violate the joint. Radiography Chest X-Ray - ED: Read by ED Physician (Three-view x-ray of the left elbow reveals no tooth fragment or foreign body. There is no fracture. There is no posterior fat pad with a questionable anterior sail sign. There is entirely reviewed interpreted by me at 1854.) Diagnostic Testing: Clinical Impression(s) from Imaging Studies Elbow X-Ray 05/26/25 18:37 IMPRESSION: No appreciable acute fracture or dislocation, although there is prominent soft tissue swelling and elbow joint effusion which raises concern for possible occult nondisplaced fracture. Mild degenerative changes. Reading Location: [facility] Discharge Plan Triage Chief Complaint: Laceration ED Provider: Sim Zimmerman Dx/Rx/DC Orders Clinical Impression: Open wound of left elbow due to dog bite, Atrial fibrillation, chronic, Dog bite of left thigh without complication, Anticoagulant long-term use, Skin tear of right forearm without complication Instructions: ED Dog Bite, ED Laceration Extremity, ED Skin Tear (Skin Avulsion) Prescriptions: New amoxicillin-pot clavulanate 875-125 mg tablet 875 mg PO Q12H Qty: 10 0RF No Action atorvastatin 20 MG tablet 20 mg PO QODAY potassium chloride [Klor-Con 10] 10 MEQ tablet extended release 10 meq PO BID allopurinol 100 MG tablet 200 mg PO DAILYCM aspirin 81 MG tablet,chewable 81 mg PO DAILY@0800 hydrochlorothiazide 25 MG tablet 25 mg PO DAILY lisinopril 40 MG tablet 40 mg PO DAILY duloxetine 60 MG capsule 60 mg PO DAILY metoprolol tartrate 100 mg tablet 100 mg PO BID Patient Comments: TAKE 1 TABLET BY MOUTH TWICE DAILY amlodipine 5 mg tablet 5 mg PO DAILY Patient Comments: TAKE 1 TABLET BY MOUTH ONCE DAILY acetaminophen 500 mg Tablet 1,000 mg PO BID PRN (Reason: Pain) tamsulosin 0.4 mg capsule 0.8 mg PO DAILY Patient Comments: TAKE 2 CAPSULES BY MOUTH ONCE DAILY warfarin 5 mg tablet 5 mg PO GUANACO Patient Comments: TAKE 1 TABLET BY MOUTH ONCE DAILY magnesium oxide 400 mg magnesium tablet 400 mg PO BID Patient Comments: TAKE 1 TABLET BY MOUTH TWICE DAILY cephalexin 500 mg capsule 500 mg PO Q12H 7 Days Qty: 14 0RF gabapentin 600 mg tablet 600 mg PO QHS warfarin 2.5 mg tablet 2.5 mg PO SUFRSA clobetasol 0.05 % solution See Rx Instructions TOPICAL .COMPLEX Patient Comments: APPLY TO THE SCALP ONCE DAILY IN THE EVENING FOR 2 WEEKS. RINSE OFF IN THE MORNING. TAKE ONE WEEK OFF BEFORE RESUMING NEEDED FOR FLARES. Rx Instructions: APPLY TO THE SCALP ONCE DAILY IN THE EVENING FOR 2 WEEKS. RINSE OFF IN THE MORNING. TAKE ONE WEEK OFF BEFORE RESUMING NEEDED FOR FLARES. topically; bupropion HCl 150 mg tablet extended release 24 hr 150 mg PO DAILY Otezla 30 mg tablet 30 mg PO DAILY insulin glargine [Lantus Solostar U-100 Insulin] 100 UNITS/ML insulin pen 12 unit subcut QHS 30 Days Qty: 0 0RF Rx Instructions: Hold if glucose less than 130 mg/dl Primary Care Provider: Dee Ashley Referrals: Dee Ashley MD [Primary Care Provider] - 2 Days for wound check Activity Restrictions/Additional Instructions: 1. Sutures out 14 days 2. Keep wounds clean and dry 3. Take antibiotics until gone 4. If there is concern for infection return to the emergency department Print Language: [place] Disposition Disposition: Home, Self Care What to do if you have Problems For any increased pain, shortness of breath, bleeding, nausea or vomiting, chestpain, or any unexpected problems, contact your Primary Care Provider. Call [facility] ([phone]) or report to the closest Emergency Room. Call 911 if necessary. 05/26/252142 <Electronically signed by Sim Zimmerman MD> Cosigner Signature (if applicable): CC: Dr. Dee Ashley MD ~ Signed [facility] Work Phone: [phone] 887-162309-15-2025 [facility] History of Present illness Narrative* Keyshawn Ordonez MD - 05/25/2025 10:09 AM EDT Images from the original note were not included. Keyshawn Ordonez MD Interventional Cardiology [address], [place] [address] [phone] Chief Complaint Patient presents with: Follow Up: 1 year follow up HISTORY OF PRESENT ILLNESS: Mr. Nolasco is a 75-year-old male with a history of dilated cardiomyopathy, mild non-obstructive CAD, and atrial flutter, presenting for follow-up. The patient has undergone multiple cardioversions, with the most recent in 04/2023, resulting in marked improvement in LV function. He has an ICD implanted for primary prevention, which has not delivered any shocks. A recent interrogation on 03/10/2025 showed normal device function, rapid atrial pacing for AFib, no events, and a battery life of six years. A TTE in 12/2024 demonstrated an LVEF of 55% and normal RV function. He reports mild dyspnea and is scheduled for pulmonary function testing next week. He has experienced significant weight gain of 50 pounds over the past 3-4 months but notes some recent weight loss attributed to fluid management. He reports improvement in lower extremity edema and better blood pressure control. He was hospitalized twice for chronic UTIs, during which he experienced episodes of confusion, including not recognizing family members. He reports easy bruising, epistaxis, and hematochezia, describing his stools as black. He also notes sinus issues and hemoptysis. Recent lab work on 03/24/2025 showed a hemoglobin level of 11.2 g/dL. He is currently taking furosemide 20 mg daily, metoprolol 100 mg BID, lovastatin 20 mg, lisinopril 40 mg, amlodipine 5 mg, and Eliquis 5 mg BID. He was recently switched from warfarin to Eliquis. 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 Diabetes mellitus (HCC) Diarrhea Dual implantable cardioverter-defibrillator in situ Dyslipidemia Esophageal reflux Ex-smoker History of transfusion Hypothyroidism 11/21/2022 Mononeuritis of unspecified site Obesity, unspecified Other chronic nonalcoholic liver disease Personal history of colonic polyps 03/20/2005 hyperplastic polyps Unspecified essential hypertension PAST SURGICAL HISTORY Procedure Laterality Date BSCAN OS (LEFT EYE) Left CARDIOVERSION 04/30/2023 COLONOSCOPY FLX DX W/COLLJ SPEC WHEN PFRMD 03/20/2005 Colonoscopy COLONOSCOPY FLX DX W/COLLJ SPEC WHEN PFRMD 06/15/2015 Colonoscopy WC out pt ENDOSCOPY PROC 08/2018 ESOPHAGOGASTRODUODENOSCOPY TRANSORAL DIAGNOSTIC 06/15/2015 EGD [facility] out pt EXCISION PILONIDAL CYST/SINUS SIMPLE 01/19/2003 Excision pilonidal cyst PACEMAKER SURGERY 03/11/2012 pacer/defib PACEMAKER SURGERY 09/17/2018 PAST SURGICAL HISTORY OF 09/16/2012 eye surgery, s/p Plaque OS PRO SMART PILL CAPSULE PROC ([id number]) 10/15/2018 REMOVAL GALLBLADDER 06/10/2021 REMOVE PACEMAKER SYSTEM 09/17/2018 replaced it all RPR UMBILICAL HERNIA < 5 YRS REDUCIBLE 02/17/1999 Hernia repair, umbilical FAMILY HISTORY Problem Relation Age of Onset Heart Mother of CHF at 91 Stroke Mother Hypertension Mother other (Other) Father at 87 of a brain aneurysm Hypertension Brother Stroke Brother Heart Brother Goiter Maternal Grandmother Aneurysm Maternal Grandfather brain No Ocular Disease Other Colon Cancer No Family History SOCIAL HISTORY[1] ALLERGIES No Known Allergies Medications: Current Outpatient Medications Medication Sig Dispense Refill lovastatin (MEVACOR) 20 mg tablet Take 2 tablets by mouth every other day. 90 tablet 3 torsemide (DEMADEX) 20 mg tablet Take 1 tablet by mouth once daily for 14 days. 14 tablet 0 amLODIPine (NORVASC) 5 mg tablet Take 1 tablet by mouth once daily. 90 tablet 3 levothyroxine (SYNTHROID) 50 mcg tablet TAKE 1 TABLET BY MOUTH ONCE DAILY ON AN EMPTY STOMACH FOR THYROID [address] (CYMBALTA) 60 mg capsule Take 1 capsule by mouth once daily. 90 capsule 3 ferrous sulfate 325 mg (65 mg iron) tablet Take 1 tablet by mouth every Sunday, Sunday, and Sunday. 60 tablet 2 meloxicam (MOBIC) 15 mg tablet Take 1 tablet by mouth once daily. for pain. Take with food. 30 tablet 2 magnesium oxide (MAGOX) 400 mg (241.3 mg magnesium) tablet Take 1 tablet by mouth two times a day. 180 tablet 3 insulin glargine (LANTUS SOLOSTAR U-100 INSULIN) 100 unit/mL (3 mL) Inject 25 Units subcutaneously daily at bedtime. 15 mL 3 ergocalciferol 50,000 unit capsule (VITAMIN D2, DRISDOL) Take 1 capsule by mouth two times a week. TO BE TAKEN ORALLY DIRECTED. Take 1 tablet by mouth twice weekly [id number], then decrease to 1 tablet weekly. 8 capsule 5 semaglutide (OZEMPIC) 1 mg/dose (4 mg/3 mL) pen Inject 1 mg subcutaneously one time a week. 9 mL 1 apixaban (ELIQUIS) 5 mg tab(s) Take 1 tablet by mouth two times a day. 60 tablet 5 potassium chloride (KLOR-CON 10) 10 mEq tablet Take 1 tablet by mouth two times a day. 180 tablet 3 tamsulosin (FLOMAX) 0.4 mg Take 2 capsules by mouth once daily. 180 capsule 3 gabapentin (NEURONTIN) 600 mg tablet Take 1 tablet by mouth daily at bedtime. 90 tablet 1 buPROPion XL (WELLBUTRIN XL) 150 mg 24 hr tablet Take 1 tablet by mouth once daily. 30 tablet 11 metoprolol tartrate, short acting, (LOPRESSOR) 100 mg tablet Take 1 tablet by mouth two times a day. 180 tablet 3 allopurinol (ZYLOPRIM) 100 mg tablet Take 2 tablets by mouth once daily. 180 tablet 3 apremilast (OTEZLA) 30 mg tablet Take 1 tablet by mouth twice daily. clobetasol (TEMOVATE) 0.05 % cream APPLY TO THE AFFECTED FLARES ON THE HANDS TWICE DAILY FOR 2 WEEKS THEN TAKE A WEEK OFF BEFORE RESUMING. acetaminophen (TYLENOL) 500 mg tablet Take 500 mg by mouth as needed. LILO PEN NEEDLE 32 gauge x 5/32 ndle USE TWICE DAILY WITH INSULIN DOSE 200 Each 3 Blood Sugar Diagnostic, Drum (ACCU-CHEK COMPACT TEST) strp Test blood sugar(s) 4 times daily. Dx: DM 250 Insulin: Yes 51 Strip 11 Lancets (ACCU-CHEK SOFTCLIX LANCETS) Misc lancets three times daily as needed. Dx. 250.00 100 Each 11 lisinopril (ZESTRIL) 40 mg tablet Take 1 tablet by mouth once daily. 90 tablet 3 No current facility-administered medications for this visit. Review of Systems Constitutional: Negative for chills, diaphoresis, fever, malaise/fatigue and weight loss. HENT: Negative for congestion, ear discharge, ear pain, hearing loss, nosebleeds, sinus pain, sore throat and tinnitus. Eyes: Negative for blurred vision, double vision, photophobia, pain, discharge and redness. Respiratory: Positive for shortness of breath. Negative for cough, hemoptysis, sputum production, wheezing and stridor. Cardiovascular: Negative for chest pain, palpitations, orthopnea, claudication, leg swelling and PND. Gastrointestinal: Negative for abdominal pain, blood in stool, constipation, diarrhea, heartburn, melena, nausea and vomiting. Genitourinary: Negative for dysuria, flank pain, frequency, hematuria and urgency. Musculoskeletal: Negative for back pain, falls, joint pain, myalgias and neck pain. Skin: Negative for itching and rash. Neurological: Negative for dizziness, tingling, tremors, sensory change, speech change, focal weakness, seizures, loss of consciousness, weakness and headaches. Endo/Heme/Allergies: Negative for environmental allergies and polydipsia. Does not bruise/bleed easily. Psychiatric/Behavioral: Negative for depression, hallucinations, memory loss, substance abuse and suicidal ideas. The patient is not nervous/anxious and does not have insomnia. Physical Examination: Vitals:BP 116/64 Pulse 81 Resp 16 Ht 5' 9.5 (1.77m) Wt 268 lb 6.4 oz (121.7kg) SpO2 97% BMI 39.08 kg/(m^2). BP w/Orthostatic Vitals Date and Time Orthostatic BP Orthostatic Pulse BP Pulse BP Position BP Site BP Cuff Size 05/25/2549 -- -- 116/64 81 -- -- -- Peak Flow Date and Time PF Resp 05/25/25948 -- 16 Last 2 Encounter Wt Readings: Date: Wt: 05/25/2025 121.7 kg (268 lb 6.4 oz) 05/12/2025 125.7 kg (277 lb 3.2 oz) Physical Exam Constitutional: General: He is not in acute distress. Appearance: He is not diaphoretic. HENT: Head: Normocephalic and atraumatic. Right Ear: External ear normal. Left Ear: External ear normal. Nose: Nose normal. Mouth/Throat: Pharynx: Oropharynx is clear. Eyes: General: Right eye: No discharge. Left eye: No discharge. Conjunctiva/sclera: Conjunctivae normal. Pupils: Pupils are equal, round, and reactive to light. Cardiovascular: Rate and Rhythm: Normal rate and regular rhythm. Heart sounds: Normal heart sounds, S1 normal and S2 normal. No murmur heard. No friction rub. No gallop. No S3 or S4 sounds. Pulmonary: Effort: Pulmonary effort is normal. No respiratory distress. Breath sounds: Normal breath sounds. No wheezing or rales. Chest: Chest wall: No tenderness. Abdominal: General: Abdomen is flat. Musculoskeletal: General: Normal range of motion. Cervical back: Normal range of motion and neck supple. Skin: General: Skin is warm and dry. Neurological: Mental Status: He is alert and oriented to person, place, and time. Psychiatric: Mood and Affect: Mood normal. Pertinent Labs: CBC: Hemoglobin (g/dL) Date Value 03/25/2025 11.2 10/24/2021 9.2 Hematocrit (%) Date Value 03/25/2025 35.9 10/24/2021 30.9 WBC (k/uL) Date Value 03/25/2025 6.30 10/24/2021 4.00 Platelet Count (k/uL) Date Value 03/25/2025 92 10/24/2021 105 BMP: Glucose (mg/dL) Date Value 05/12/2025 326 09/26/2021 146 Potassium (mmol/L) Date Value 05/12/2025 4.1 09/26/2021 3.6 Sodium (mmol/L) Date Value 05/12/2025 136 09/26/2021 136 Chloride (mmol/L) Date Value 05/12/2025 101 09/26/2021 98 CO2 (mmol/L) Date Value 05/12/2025 23 09/26/2021 22 Creatinine (mg/dL) Date Value 05/12/2025 1.24 09/26/2021 1.24 BUN (mg/dL) Date Value 05/12/2025 12 09/26/2021 12 Anion Gap (mmol/L) Date Value 05/12/2025 12 09/26/2021 16 Calcium (mg/dL) Date Value 09/26/2021 9.2 Calcium, Total (mg/dL) Date Value 05/12/2025 9.1 INR: Lipid Profile: Cholesterol, Total Date Value Ref Range Status 01/15/2025 122 <200 mg/dL Final Comment: <200 mg/dL, Desirable 200-239 mg/dL, Borderline high >239 mg/dL, High HDL Cholesterol Date Value Ref Range Status 01/15/2025 46 >39 mg/dL Final Comment: 40-59 mg/dL, Acceptable >59 mg/dL, High: Negative risk factor for coronary heart disease <40 mg/dL, Low: Positive risk factor for coronary heart disease LDL Cholesterol, Calculated Date Value Ref Range Status 01/15/2025 62 <100 mg/dL Final Comment: <100 mg/dL, Optimal 100-129 mg/dL, Near optimal/above optimal 130-159 mg/dL, Borderline high 160-189 mg/dL, High >189 mg/dL, Very high Secondary prevention optimal LDL Cholesterol levels are recommended to be <70 mg/dL LDL cholesterol is calculated using the Lopez-NIH equation. Triglyceride Date Value Ref Range Status 01/15/2025 67 <150 mg/dL Final Comment: <150 mg/dL, Normal 150-199 mg/dL, Borderline high 200-499 mg/dL, High >499 mg/dL, Very high Hemoglobin A1C: No results found for: HGBA1C TSH: No results found for: TSHREFL Prior Cardiac Testing none Assessment and Plan: 75-year-old male with a history of dilated cardiomyopathy, mild non-obstructive CAD, and atrial flutter, presenting for follow-up. ASSESSMENT/PLAN: 1. Essential hypertension - ICD9: 401.9, ICD10: I10 - Controlled - Continue current medications - Recommend home blood pressure monitoring, to bring results to next visit - Encouraged sodium restriction, DASH or Mediterranean diet - Recommend regular aerobic exercise - LISINOPRIL 40 MG TABLET 2. Dilated cardiomyopathy (HCC) - ICD9: 425.4, ICD10: I42.0 Cardiomyopathy markedly improved post cardioversion most recent echo 55% on good medical therapy 3. Typical atrial flutter (HCC) - ICD9: 427.32, ICD10: I48.3 Currently in sinus rhythm maintained on anticoagulation 4. Presence of cardiac pacemaker - ICD9: V45.01, ICD10: Z95.0 Normal function ICD pacemaker device We discussed your heart health and follow-up care: - Your ICD (implantable cardioverter-defibrillator) was last checked on March 10, 2023, by Dr. Christoph Chavis. The device is functioning normally, with no events recorded, and the battery is expectedto last another 6 years. - Your most recent echocardiogram in December 2022 showed normal left ventricular function (ejection fraction of 55%) and normal right ventricular function. This indicates your heart squeeze is good. - Continue taking your current heart medications as prescribed: - Furosemide 20 mg daily (diuretic). - Metoprolol 100 mg twice daily. - Lovastatin 20 mg daily. - Lisinopril 40 mg daily. - Amlodipine 5 mg daily. - Eliquis 5 mg twice daily (anticoagulant). While you mentioned concerns about bruising, nosebleeds, and black stools. Your hemoglobin level from March 24 was 11.2, which is within the normal range.Please monitor for any worsening bleeding or new symptoms and let us know immediately if they occur. We discussed your blood pressure and weight: - Your blood pressure today was 160/64, which is improved compared to prior visits. Continue monitoring your blood pressure regularly. - You mentioned gaining 50 pounds over the past few months but are now starting to lose weight due to adjustments in your diuretic medication. Continue taking your prescribed water pill and let us know if swelling in your legs or shortness of breath worsens. We discussed your shortness of breath: - You reported mild shortness of breath. You have a lung function test scheduled next week to evaluate this further. Please follow up with the results. Follow-up plan: - I will see you again in 6 months for a routine follow-up regarding your heart health. If you experience any new or worsening symptoms, such as significant bleeding, severe shortness of breath, or chest pain, please contact our office or seek immediate medical attention. Keyshawn Ordonez MD Follow up plannin months Electronically signed by Keyshawn Ordonez MD on May 25, 2025, 10:09 AM The above note was partially created using a dictation recognition software. A reasonable attempt has been made to correct any errors. 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 Please take 2 pills of your current statin medication (doubling your dose) until your supply runs out. Let me know when you need a new prescription. We discussed your blood pressure and water retention: - Your blood pressure remains high, and you have significant swelling in your legs, which appears to be related to fluid retention. - Stop taking Lasix (furosemide) and start taking torsemide instead. Take this medication as prescribed for 2 weeks. - Monitor your weight and let me know if it continues to increase or if you experience any new symptoms. We discussed your diabetes and recent lab results: - Your glucose levels were elevated, which may have been influenced by your diet. Please continue to monitor your blood sugar levels and follow your diabetes management plan. - Your magnesium levels were normal, which is good. We discussed your weight gain: - You have gained 50 pounds over the past 4 months, which may be related to fluid retention. We will reassess this after 2 weeks on torsemide. We discussed your medications: - Continue taking all your other prescribed medications as directed. Your is helping you manage your medications, which is great. Follow-up: - Please return to the office in 2 weeks for a follow-up visit to reassess your blood pressure, weight, and response to torsemide. Let us know if you experience any worsening symptoms or have concerns before your next visit. documented in this encounterPromedica [facility]09-02-2025 NotePrem[facility]09-02-2025 History of Present illness Narrative* Dee Ashley MD - 05/12/2025 4:05 PM EDT Reason for Visit Follow up HPI Yazan Nolasco is a 75-year-old male with a history of hypercholesterolemia, HTN, and DM, presenting for follow-up. Yazan reports a recent head cold or allergies, but denies any correlation with hiscurrent medication regimen. He is currently taking a statin at night and is amenable to increasing the dosage from 40 mg to 80 mg. He has been monitoring his blood pressure at home, noting readings that were almost normal, but today's reading is 183 mmHg. He mentions that his heart rate increasedduring a recent interaction with a nurse named Yaneth. Yazan recently underwent blood work, with results showing normal magnesium levels and a glucose level of 300 mg/dL. He attributes the elevated glucose level to consuming a glazed donut and black coffee on the way to the lab. He denies regular coffee consumption and has reduced his intake since quitting beer. Yazan reports a weight gain of 50 lbs over the past 4 months, currently weighing 275 lbs, up from 220 lbs in September 2024. He is on a 1 mg dosage of Ozempic, which was previously lower. He has been taking Lasix 40 mg in the morning and 20 mg in the afternoon for the past 5 days, as per previous instructions, and has resumed a 20 mg daily dosage. He denies any improvement in his condition with theincreased Lasix dosage. His manages his medication regimen. Yazan also mentions recent emotional distress due to the loss of his dog to cancer after 10 years. He plans to get another dog soon. SOCIAL HISTORY[1] Past medical history, appointments, medications, allergies reviewed. Pertinent Lab/Diagnostic Studies are reviewed and discussed today Current Outpatient Medications: lisinopril (ZESTRIL) 40 mg tablet amLODIPine (NORVASC) 5 mg tablet levothyroxine (SYNTHROID) [address] (CYMBALTA) 60 mg capsule ferrous sulfate 325 mg (65 mg iron) tablet meloxicam (MOBIC) 15 mg tablet magnesium oxide (MAGOX) 400 mg (241.3 mg magnesium) tablet insulin glargine (LANTUS SOLOSTAR U-100 INSULIN) 100 unit/mL (3 mL) ergocalciferol 50,000 unit capsule (VITAMIN D2, DRISDOL) semaglutide (OZEMPIC) 1 mg/dose (4 mg/3 mL) pen apixaban (ELIQUIS) 5 mg tab(s) potassium chloride (KLOR-CON 10) 10 mEq tablet tamsulosin (FLOMAX) 0.4 mg gabapentin (NEURONTIN) 600 mg tablet buPROPion XL (WELLBUTRIN XL) 150 mg 24 hr tablet metoprolol tartrate, short acting, (LOPRESSOR) 100 mg tablet allopurinol (ZYLOPRIM) 100 mg tablet apremilast (OTEZLA) 30 mg tablet clobetasol (TEMOVATE) 0.05 % cream acetaminophen (TYLENOL) 500 mg tablet LILO PEN NEEDLE 32 gauge x nd Blood Sugar Diagnostic, Drum (ACCU-CHEK COMPACT TEST) strp Lancets (ACCU-CHEK SOFTCLIX LANCETS) Misc lancets lovastatin (MEVACOR) 20 mg tablet torsemide (DEMADEX) 20 mg tablet Health Maintenance Hepatitis B Vaccine(1 of 3 - Risk 3-dose series) Shingrix Vaccine(1 of 2) DTaP,Tdap,Td Vaccine(3 - Td or Tdap) Dilated Retinal Exam Advance Directive Discussion Influenza Vaccine(1)@ Review Of Systems Constitutional: (+) weight gain Psychiatric: (+) depressed mood Physical Exam BP 183/74 Pulse 102 Resp 16 Wt 125.7 kg (277 lb 3.2 oz) BMI 40.35 kg/m GENERAL: NAD, alert and oriented. SKIN: Unremarkable, no rash or skin lesions. HEAD: Normocephalic. EYES: PERRLA, EOMI, conjunctiva clear. EARS: External ears normal, canals clear, TM's normal. NECK: Supple, no lymphadenopathy, normal thyroid, no carotid bruits. LUNGS: Clear to auscultation bilaterally, no wheezes/rhonchi/rales. HEART: Regular rate and rhythm, no murmurs. No ectopy. EXTREMITIES: Bilateral lower extremity edema noted. NEURO: Awake, alert and oriented x3, cranial nerves II-XII grossly intact, normal gait, no involuntary motions. Labs: (Today) - Magnesium: Normal - Glucose: >300 mg/dL - Hemoglobin: No significant abnormality - Potassium: No abnormality indicated - Thyroid labs: Pending results Imaging: Tests: Assessment and Plan 1. Essential hypertension (I10) Blood pressure remains elevated at 183 despite recent medication adjustments; home readings have been closer to normal. - Continue lisinopril and Norvasc as previously prescribed. - Discontinue Lasix; start torsemide for 2 weeks. - Recheck blood pressure at home. - Follow-up in 2 weeks. 2. Pure hypercholesterolemia (E78.00) Patient is currently taking statin therapy at night; request received to increase statin dose from 40 mg to 80 mg. - Increase statin dose from 40 mg to 80 mg; patient agrees to the change. - Provided education on the importance of medication adherence. 3. Weight gain (R63.5) Patient has gained 50 lbs in the last 4 months, with current weight at 275 lbs; edema noted in lower extremities. - Start torsemide for 2 weeks to address fluid retention. - Follow-up in 2 weeks to reassess weight and edema. Voice recognition software was used to compose this office note. Please excuse any unintended typographical errors. Recording using Netviewer software for draft documentation of the visit was discussed with the patient/authorized manufacturers representative; all questions welcomed and answered. 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 This may be related to water retention, thyroid function, or other factors. - I will check your thyroid levels to determine if this is contributing to your weight gain. - You have 2+ pitting edema (swelling) in your legs, which may indicate water retention. To addressthis: - Take Lasix (furosemide) 40 mg in the morning and 20 mg in the afternoon for 5 days. After 5 days,reduce to 20 mg once daily. This prescription has been sent to [facility]. - Take potassium supplements twice daily (morning and evening) while on Lasix. - Return for blood work in 1 week to monitor your response to the medication and ensure your potassium levels are stable. - Resume taking Lisinopril daily as prescribed to help manage your blood pressure. You were previously taking it every other day, but this needs to be adjusted to daily use. - Continue taking Norvasc (amlodipine) 5 mg daily and Lasix (as above) for blood pressure management. - Your kidney function is stable, which is a positive sign. We discussed your iron levels and anemia: - Your hemoglobin has improved. You are currently taking iron tablets and receiving B12 injections. - You mentioned that iron tablets cause constipation. If you prefer, you can stop the tablets and continue with iron infusions. You will follow up with Yaneth, your iron specialist, after completing lab work to reassess your iron levels. We discussed your recent activities and overall health: - You have been active, including trimming trees, which is great for maintaining strength and mobility. However, please be cautious with strenuous activities, as you mentioned experiencing fatigue and shortness of breath afterward. - You have a lung function test scheduled for Sunday to evaluate your breathing concerns. We will review the results at your next visit. We discussed your diet: - Your current eating habits, including two meals a day, seem to be working for you in terms of maintaining your A1c levels. However, some of your food choices, such as bologna, may contain high levels of salt, which could contribute to water retention. Consider reducing your intake of high-sodium foods. Follow-Up Instructions: - Complete blood work before your next visit to monitor your thyroid function, potassium levels, and overall response to Lasix. - Return to the clinic in 1 week for a follow-up appointment to review your blood work and assess your progress with the new medication regimen. - Continue taking all other medications as prescribed, including your thyroid medication in the morning before eating. If you experience worsening swelling, shortness of breath, or any other concerning symptoms, pleasecontact the office immediately. documented in this encounterPromedica [facility]08-26-2025 NotePrem[facility]08-26-2025 History of Present illness Narrative* Dee Ashley MD - 05/05/2025 9:53 AM EDT Reason for Visit Follow up HPI Yazan Nolasco is a 75-year-old male with a history of HTN, DM, and iron deficiency anemia, presenting with concerns about weight gain and elevated blood pressure readings. Yazan reports a significant weight increase from the 230s to 275 lbs over the past 3 years, with a notable gain since December 2024. He attributes this to a period of hospitalization from September to December 2024 for a UTI and nephrolithiasis, during which he experienced cognitive changes. Despite maintaining his usual diet, he has observed this weight gain and expresses concern about its impact on his blood pressure. He is currently on a regimen of antihypertensive medications, including lisinopril every other day,Norvasc 5 mg daily, and Lasix daily. He also takes thyroid medication, though he admits to not adhering to the recommended administration time. Additionally, he is on Otezla, Lantus, and iron suppleme nts, the latter of which he notes causes constipation. He has not received an iron infusion in the past 3 months but continues with B12 injections. Yazan reports improved strength and mobility, no longer requiring a cane for activities such as rising from a chair or toilet. He recently engaged in physically demanding activities, such as tree trimming, which he attributes to restlessness and the impending loss of his dog to cancer. He denies any injuries from these activities but does report dyspnea and fatigue. He is scheduled for pulmonary function tests tomorrow. His diet consists of two meals a day, with a preference for bologna and peanut butter sandwiches, and he denies adding salt to his food. He also reports a recent evaluation by an equipment specialist for hip pain, who recommended a cortisone injection. However, he declined this treatment due to concerns about its potential impact on his A1c levels. SOCIAL HISTORY[1] Past medical history, appointments, medications, allergies reviewed. Pertinent Lab/Diagnostic Studies are reviewed and discussed today Current Outpatient Medications: levothyroxine (SYNTHROID) [address] (CYMBALTA) 60 mg capsule ferrous sulfate 325 mg (65 mg iron) tablet meloxicam (MOBIC) 15 mg tablet magnesium oxide (MAGOX) 400 mg (241.3 mg magnesium) tablet insulin glargine (LANTUS SOLOSTAR U-100 INSULIN) 100 unit/mL (3 mL) ergocalciferol 50,000 unit capsule (VITAMIN D2, DRISDOL) semaglutide (OZEMPIC) 1 mg/dose (4 mg/3 mL) pen apixaban (ELIQUIS) 5 mg tab(s) potassium chloride (KLOR-CON 10) 10 mEq tablet tamsulosin (FLOMAX) 0.4 mg lovastatin (MEVACOR) 20 mg tablet gabapentin (NEURONTIN) 600 mg tablet buPROPion XL (WELLBUTRIN XL) 150 mg 24 hr tablet metoprolol tartrate, short acting, (LOPRESSOR) 100 mg tablet allopurinol (ZYLOPRIM) 100 mg tablet apremilast (OTEZLA) 30 mg tablet clobetasol (TEMOVATE) 0.05 % cream acetaminophen (TYLENOL) 500 mg tablet LILO PEN NEEDLE 32 gauge x ndle Blood Sugar Diagnostic, Drum (ACCU-CHEK COMPACT TEST) strp Lancets (ACCU-CHEK SOFTCLIX LANCETS) Misc lancets lisinopril (ZESTRIL) 40 mg tablet amLODIPine (NORVASC) 5 mg tablet furosemide (LASIX) 20 mg tablet Health Maintenance Hepatitis B Vaccine(1 of 3 - Risk 3-dose series) Shingrix Vaccine(1 of 2) DTaP,Tdap,Td Vaccine(3 - Td or Tdap) Dilated Retinal Exam Advance Directive Discussion@ Review Of Systems Constitutional: (+) weight gain, (+) fatigue Respiratory: (+) dyspnea Musculoskeletal: (+) hip pain Skin: (+) bruising Psychiatric: (+) restlessness Physical Exam BP 186/71 Pulse 106 Resp 16 Wt 125.1 kg (275 lb 12.8 oz) BMI 40.14 kg/m GENERAL: NAD, alert and oriented. SKIN: Unremarkable, no rash or skin lesions. HEAD: Normocephalic. EYES: PERRLA, EOMI, conjunctiva clear. NECK: Supple, no lymphadenopathy, normal thyroid, no carotid bruits. LUNGS: Clear to auscultation bilaterally, no wheezes/rhonchi/rales. HEART: Regular rate and rhythm, no murmurs. No ectopy. EXTREMITIES: 2+ pitting edema noted extending to the thighs. No deformities, no skin discoloration. NEURO: Awake, alert and oriented x3, cranial nerves II-XII grossly intact, normal gait, no involuntary motions. Labs: - Hemoglobin: Improved - Kidney function: 80 Assessment and Plan We discussed your weight gain and blood pressure: - Your weight has increased from the 230s to 275 pounds over the past few years. This may be related to water retention, thyroid function, or other factors. - I will check your thyroid levels to determine if this is contributing to your weight gain. - You have 2+ pitting edema (swelling) in your legs, which may indicate water retention. To addressthis: - Take Lasix (furosemide) 40 mg in the morning and 20 mg in the afternoon for 5 days. After 5 days,reduce to 20 mg once daily. This prescription has been sent to [facility]. - Take potassium supplements twice daily (morning and evening) while on Lasix. - Return for blood work in 1 week to monitor your response to the medication and ensure your potassium levels are stable. - Resume taking Lisinopril daily as prescribed to help manage your blood pressure. You were previously taking it every other day, but this needs to be adjusted to daily use. - Continue taking Norvasc (amlodipine) 5 mg daily and Lasix (as above) for blood pressure management. - Your kidney function is stable, which is a positive sign. We discussed your iron levels and anemia: - Your hemoglobin has improved. You are currently taking iron tablets and receiving B12 injections. - You mentioned that iron tablets cause constipation. If you prefer, you can stop the tablets and continue with iron infusions. You will follow up with Yaneth, your iron specialist, after completing lab work to reassess your iron levels. We discussed your recent activities and overall health: - You have been active, including trimming trees, which is great for maintaining strength and mobility. However, please be cautious with strenuous activities, as you mentioned experiencing fatigue and shortness of breath afterward. - You have a lung function test scheduled for Sunday to evaluate your breathing concerns. We will review the results at your next visit. We discussed your diet: - Your current eating habits, including two meals a day, seem to be working for you in terms of maintaining your A1c levels. However, some of your food choices, such as bologna, may contain high levels of salt, which could contribute to water retention. Consider reducing your intake of high-sodium foods. Follow-Up Instructions: - Complete blood work before your next visit to monitor your thyroid function, potassium levels, and overall response to Lasix. - Return to the clinic in 1 week for a follow-up appointment to review your blood work and assess your progress with the new medication regimen. - Continue taking all other medications as prescribed, including your thyroid medication in the morning before eating. If you experience worsening swelling, shortness of breath, or any other concerning symptoms, pleasecontact the office immediately. Voice recognition software was used to compose this office note. Please excuse any unintended typographical errors. Recording using Netviewer software for draft documentation of the visit was discussed with the patient/authorized manufacturers representative; all questions welcomed and answered. 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 Allergies and medications reviewed. Latex allergy? No. Does this patient have: Unplanned weight loss or gain of greater than 10 pounds, or a change of appetite over the last year? No Does the patient have any concerns about safety in the home/falls? Not at risk for falls Has the patient fallen in the past year? No Does the patient have difficulty performing or completing routine daily living activities? No Does this patient have concerns about personal safety? No Is patient having pain? Pain: No=0 (pain 0 on a scale of 0-10). Health Maintenance: Reviewed and updated. Does patient have MyChart access or Caregiver proxy: yes Pt/Caregiver willingness and readiness to learn assessed: Yes. Barriers: none Cyanocobalamin injection administered, left arm, tolerated well, no immediate adverse reactions noted. Rita Zuniga LPN documented in this encounterPromedica Bay [facility] Hospital08-19-2025 Telephone encounter Note * Telephone Encounter - Kiley Butts LPN - 04/28/2025 12:05 PM EDT Patient has been identified by name and date of : Yes Patient phones for refill(s): Requested Prescriptions Pending Prescriptions Disp Refills levothyroxine (SYNTHROID) 50 mcg tablet 90 tablet 3 Sig: TAKE 1 TABLET BY MOUTH ONCE DAILY ON AN EMPTY STOMACH FOR THYROID Date of last office visit in primary care: 03/25/2025 Date of next office visit in primary care: 05/05/2025 Please advise. Thank you. Kiley Butts LPN. [facility]08-19-2025 Miscellaneous Notes* Telephone Encounter - Kiley Butts LPN - 04/28/2025 12:05 PM EDT Patient has been identified by name and date of : Yes Patient phones for refill(s): Requested Prescriptions Pending Prescriptions Disp Refills levothyroxine (SYNTHROID) 50 mcg tablet 90 tablet 3 Sig: TAKE 1 TABLET BY MOUTH ONCE DAILY ON AN EMPTY STOMACH FOR THYROID Date of last office visit in primary care: 03/25/2025 Date of next office visit in primary care: 05/05/2025 Please advise. Thank you. Kiley Butts LPN. documented in this encounterPromedica Bay Park Hospital08-06-2025 NotePrem[facility] Health07-24-2025 NotePrem[facility] Health07-24-2025 History of Present illness Narrative* Palmira Riggins LPN - 04/02/2025 11:04 AM EDT Patient here for injection of B12. Given IM in right delt. Patient tolerated well. For all other information regarding today, see today's OV note with Ryan Gleason APRN. Palmira Riggins LPN documented in this encounterPromedica Bay [facility] Hospital07-24-2025 NotePrem[facility]07-24-2025 History of Present illness Narrative* Nabila Gleason - 04/02/2025 10:40 AM EDT Yazan Nolasco 1950 04/02/2025 HPI: Yazan Nolasco is a 73 year old male who presents here today for follow up ZORAIDA. H/o hypertension, diabetes mellitus and on warfarin for dual pacemaker and defibrillator. Former patient of Dr. Floyd, referred back to Hematology by his morning news producer. He has hx of severe anemia in after cholecystectomy 2020. He received fresh frozen plasma and also 2 units of blood after surgery for hemoglobin of 7.0. He had unexplained weight loss prior to this year. Although he denied any rectal bleeding or black tarry stool. During the time of surgery, he wastold by his surgeon that he has cirrhosis. He has a history of fatty liver disease, and he had quitdrinking alcohol over 5 years ago. He has no history of viral hepatitis. He complained of increased fatigue and dyspnea on exertion in July, and a CBC revealed a hemoglobin of 6.7. His platelet counts were previously between 130,000 - 95,000. His iron study was consistent with iron deficiency anemia and his vitamin B12 level of 224 was borderline low. His stool was Hemoccult negative. He had EGD and colonoscopy previously and they were normal. He also had a capsule endoscopy study 3 years ago. He was given iron sucrose 200mg IV x 5. His anemia improved, but he still has symptoms of fatigue and shortness of breath with exertion. He denied dizziness or lightheadedness. No change in bowel habits. He bruises easily because of warfarin and thrombocytopenia. Overall his CBC remains stable over the last 2 years. He believes last colonoscopy 2004 - denies issues reports he was due back in 10 years. Started Otelza in April which has helped significantly. However not much of an appetite since starting medications. Mr. Nolasco presents back to Hematology for evaluation of ZORAIDA. He reports that over the last several years his energy has been low. No recent illnesses, or infections. Denies recent hospitalizations or surgeries. Ozempic titrated all the way dose reduced recently by PCP. He denies SOB, CP, palpitations. Interval hx: Pt notes that he had a rough start to the year. Pretty good since December. Denies UTI s/s aside from confusion. Though he noticed more frequent nocturia during this time. Following with urology at [facility].No hematuria, dysuria, less frequent nocturia. He denies any current symptoms. Denies fevers, chills. NS. Hip pain is a little better. Seeing the ortho in [place]. Pt. received 5 doses of iron sucrose ending 01/25/24. Has been receiving Vit B12. Denies new aches or pains. No SOB, CP, or palpitations. No LOZANO, dizziness, or changes in vision. Denies N/V/C/D. No changes in bowel or bladder habits. No rash or skin changes. Denies bleeding or bruising. Was switched from coumadin to eliquis. Doing well on this. ROS: All systems reviewed on 04/02/2025 with pertinent positives and negatives as outlined in the interval history. Past medical history, appointments, medications, allergies reviewed. No changes. EXAM: BP 155/76 Pulse 96 Temp 36.9 C (98.4 F) Resp 12 Wt 124.3 kg (274 lb) SpO2 93% BMI 39.88kg/m APPEARANCE Well appearing, alert, in no acute distress, well-hydrated, well nourished. HEART RRR with normal S1 and S2, no murmurs LUNG clear to auscultation ABDOMEN bowel sounds normoactive, soft, non-tender, non-distended, without organomegaly or palpablemasses EXTREMITIES No edema RLE, LLE swelling NEURO Awake, alert and oriented x 3, Normal gait, and No involuntary motions. SKIN Skin color, texture, turgor normal, no suspicious rashes or lesions I have performed the physical exam today (04/02/2025) and have edited the note to correlate with current findings. LABS: Latest Reference Range & Units 10/16/24 13:13 12/19/24 11:21 01/15/25 10:53 01/19/25 11:09 03/25/25 10:49 WBC 3.70 - 11.00 k/uL 4.26 5.03 3.87 4.14 6.30 RBC 4.20 - 6.00 m/uL 4.14 (L) 4.19 (L) 4.38 4.13 (L) 4.27 Hemoglobin 13.0 - 17.0 g/dL 11.6 (L) 11.3 (L) 11.8 (L) 11.4 (L) 11.2 (L) Hematocrit 39.0 - 51.0 % 35.6 (L) 36.9 (L) 38.2 (L) 35.8 (L) 35.9 (L) Platelet Count 150 - 400 k/uL 108 (L) 116 (L) 91 (L) 87 (L) 92 (L) MCV 80.0 - 100.0 fL 86.0 88.1 87.2 86.7 84.1 MCH 26.0 - 34.0 pg 28.0 27.0 26.9 27.6 26.2 MCHC 30.5 - 36.0 g/dL 32.6 30.6 30.9 31.8 31.2 MPV 9.0 - 12.7 fL 10.8 11.1 11.0 11.6 12.1 RDW-CV 11.5 - 15.0 % 15.9 (H) 15.4 (H) 15.7 (H) 15.7 (H) 16.2 (H) DTYPE Auto Auto Auto Auto (L): Data is abnormally low (H): Data is abnormally high Latest Reference Range & Units 12/26/23 12:40 03/17/24 15:14 06/18/24 08:59 10/16/24 13:13 01/19/25 11:09 Vitamin B12 232 - 1,245 pg/mL 242 630 535 536 626 Latest Reference Range & Units 12/26/23 12:40 03/17/24 15:14 06/18/24 08:59 10/16/24 13:13 01/19/25 11:09 Ferritin 30.3 - 565.7 ng/mL 41.9 131.0 42.5 110.0 94.6 Iron 41 - 186 ug/dL 31 (L) 32 (L) 39 (L) 34 (L) 51 TIBC 232 - 386 ug/dL 239 211 (L) 308 214 (L) 289 Transferrin Saturation 15.0 - 57.0 % 13.0 (L) 15.2 12.7 (L) 15.9 17.6 (L): Data is abnormally low ASSESSMENT/PLAN: 1. Iron deficiency anemia, unspecified iron deficiency anemia type - ICD9: 280.9, ICD10: D50.9 (primary diagnosis) 2. Stage 3a chronic kidney disease (HCC) - ICD9: 585.3, ICD10: N18.31 3. B12 deficiency - ICD9: 266.2, ICD10: E53.8 Stage 3a, chronic kidney disease -Anemia improved with IV iron infusion; and fecal occult was negative .Will plan for IV iron sucrose x5 due to count with CKD. -Moderate thrombocytopenia without excessive bleeding, with occasional bruising when he was on warfarin. - US with chronic liver disease/cirrhosis. Splenomegaly. Inactive gastritis. -Reviewed cbc and recent iron studies. Plts are stable. No bleeding. -May consider starting erythropoietin injections for treatment of anemia of chronic disease secondary to chronic renal failure, however not indicated at this time as hgb is stable and remains >10. - IV iron sucrose 200mg x5 - last dose 11/05/2024 - plan for IV iron for ferritin less than 50 - was tolerating PO iron well, pt reports that he stopped taking following admission in Aug. Iron studies from 01/2025 WNL. New Rx sent for PO iron MW. - Cont with monthly B12 IM due to concern for lack of absorption. - Continue follow up with PCP/Cards. - CBC/iron studies/B12/MMA in about 12 weeks. - OV with labs in 6 months. - Pt. aware to call office with any questions/concerns. Nabila Gleason APRN.JOB FOREMAN I spent a total of 30 minutes on the date of the service which included preparing to see the patient, [id number] patient care, completing clinical documentation, obtaining and/or reviewing separately obtained history, and counseling and educating the patient/family/caregiver. Portions of this note including HPI, ROS, impression/plan may have been copied forward as to provide important historical information essential in contributing to medical decision making. Documentation has been reviewed and edited as necessary to support clinical decision making for today's visit and to reflect my own independent evaluation of this patient. documented in this encounterPromedica [facility]07-22-2025 NoteHNO ID: [id number] Author: DEE ASHLEY MD Service: ? Author Type: Physician Type: Progress Notes Filed: 03/31/2025 17:49 Note Text: Yes, we will follow up on this at follow up [facility]07-16-[facility] Note[facility]07-16-2025 History of Present illness Narrative* Dee Ashley MD - 03/25/2025 12:44 PM EDT Reason for Visit Follow up HPI Yazan Nolasco is a 74-year-old male presenting with right hip pain. Yazan reports right hip pain that has been persistent since a work-related injury 55 years ago, when a large gas pipe fell on him while he was in a [id number] [place]. The pain has recently worsened,with a significant increase in discomfort when bearing weight on the right leg and when lying on the right side. He notes that the pain is exacerbated by walking and standing, and is relieved by rest. This morning, he experienced a big pop in the hip upon getting up. He has not consulted an equipment specialist for this issue. Yazan has been taking Tylenol for pain management but expresses a desire for a more effective pain relief option. He has a history of gastrointestinal bleeding and is cautious about taking medications that may exacerbate this condition. He has previously been prescribed OxyContin but prefers not totake it. He also mentions a recent tune-up on his heart by Dr. Mills in [place], which was expected to improve his shortness of breath. However, he reports no significant improvement in his dyspnea. He iscurrently taking semaglutide and has a history of anemia. He is not taking vitamin D supplements. Social History Tobacco Use Smoking status: Former Current packs/day: 0.00 Average packs/day: 1 pack/day for 40.0 years (40.0 ttl pk-yrs) Types: Cigarettes Start date: 03/26/1969 Quit date: 03/26/2009 Years since quittin.0 Smokeless tobacco: Never Vaping Use Vaping status: Never Used Substance Use Topics Alcohol use: Not Currently Comment: 1991 Drug use: Not Currently Past medical history, appointments, medications, allergies reviewed. Pertinent Lab/Diagnostic Studies are reviewed and discussed today Current Outpatient Medications: magnesium oxide (MAGOX) 400 mg (241.3 mg magnesium) tablet insulin glargine (LANTUS SOLOSTAR U-100 INSULIN) 100 unit/mL (3 mL) ergocalciferol 50,000 unit capsule (VITAMIN D2, DRISDOL) semaglutide (OZEMPIC) 1 mg/dose (4 mg/3 mL) pen apixaban (ELIQUIS) 5 mg tab(s) potassium chloride (KLOR-CON 10) 10 mEq tablet tamsulosin (FLOMAX) 0.4 mg lovastatin (MEVACOR) 20 mg tablet gabapentin (NEURONTIN) 600 mg tablet furosemide (LASIX) 20 mg tablet buPROPion XL (WELLBUTRIN XL) 150 mg 24 hr tablet amLODIPine (NORVASC) 5 mg tablet metoprolol tartrate, short acting, (LOPRESSOR) 100 mg tablet allopurinol (ZYLOPRIM) 100 mg tablet DULoxetine (CYMBALTA) 60 mg capsule levothyroxine (SYNTHROID) 50 mcg tablet ferrous sulfate 325 mg (65 mg iron) tablet apremilast (OTEZLA) 30 mg tablet clobetasol (TEMOVATE) 0.05 % cream lisinopril (ZESTRIL, PRINIVIL) 40 mg tablet acetaminophen (TYLENOL) 500 mg tablet LILO PEN NEEDLE 32 gauge x ndle Blood Sugar Diagnostic, Drum (ACCU-CHEK COMPACT TEST) strp Lancets (ACCU-CHEK SOFTCLIX LANCETS) Misc lancets meloxicam (MOBIC) 15 mg tablet Health Maintenance Hepatitis B Vaccine(1 of 3 - Risk 3-dose series) Shingrix Vaccine(1 of 2) DTaP,Tdap,Td Vaccine(3 - Td or Tdap) Dilated Retinal Exam Advance Directive Discussion Covid-19 Vaccine(7 - Pfizer risk season)@ Review Of Systems Musculoskeletal: (+) right hip pain, (+) right hip popping Respiratory: (+) shortness of breath Physical Exam BP 158/82 Pulse 90 Resp 16 Wt 120.7 kg (266 lb 3.2 oz) SpO2 94% BMI 38.75 kg/m GENERAL: NAD, alert and oriented. SKIN: Unremarkable, no rash or skin lesions. HEAD: Normocephalic. EYES: PERRLA, EOMI, conjunctiva clear. LUNGS: Clear to auscultation bilaterally, no wheezes/rhonchi/rales. HEART: Regular rate and rhythm, no murmurs. No ectopy. EXTREMITIES: Right hip pain elicited on palpation and movement. No deformities, no skin discoloration, no edema. NEURO: Awake, alert and oriented x3, cranial nerves II-XII grossly intact, normal gait, no involuntary motions. Labs: - Serum 25-hydroxy Vitamin D: Low - CBC: Anemia Assessment and Plan 1. Type 2 diabetes mellitus with diabetic mononeuropathy, with long-term current use of insulin (HCC) (E11.41) 2. Arthritis of right hip (M16.11) Pain of right hip (M25.551) Chronic right hip pain with limited positions for comfort. Pain exacerbated by weight-bearing and certain positions; audible pop noted in the morning. Physical exam reveals tenderness in the hip joint with pain on movement. Differential includes trochanteric bursitis, but clinical presentation suggests hip joint pathology. - Ordered X-ray of the right hip. - Referred to orthopedics; patient prefers not to see Dr. Dickinson. - Prescribed Meloxicam, to be taken after meals due to history of GI bleeding. 3. Vitamin D deficiency (E55.9) Previously identified; current supplementation status unknown. - Ordered serum Vitamin D level. 4. Anemia, unspecified type (D64.9) Previously identified. - Ordered CBC to evaluate current status. 5. Paroxysmal atrial fibrillation (HCC) (I48.0) Recently managed by Dr. Mills in [place]; patient reports improvement in symptoms. 6. Stage 3a chronic kidney disease (HCC) (N18.31) Voice recognition software was used to compose this office note. Please excuse any unintended typographical errors. Recording using ambient [employer] software for draft documentation of the visit was discussed with the patient/authorized manufacturers representative; all questions welcomed and answered. Patient/authorized manufacturers representative agreed to proceed Dee Ashley MD documented in this encounterPromedica Bay Park [facility]07-16-2025 History of Present illness Narrative* Ale Osuna RT(R) - 03/25/2025 11:00 AM EDT Radiology Service Progress Note PATIENT NAME: Yazan Nolasco DATE OF SERVICE: March 25, 2025 TIME: 11:10 AM PATIENT IDENTITY VERIFICATION COMPLETED USING TWO (2) IDENTIFIERS: Name and Date of confirmedby patient verbally. FALL SCREENING: Has the patient had 2 falls in the last year or 1 fall with injury or currently using an Ambulatory Assistive Device (Walker, Cane, Wheelchair, Crutches, etc.)? No PATIENT GENDER DATA: Assigned male at PATIENT RELEVANT IMPLANT DATA REVIEWED: Yes PATIENT PRESENTS WITH AN IMPLANTABLE OR ATTACHED APPELLATE COURT CLERK: No RADIOLOGY DEPARTMENT: General X-ray: Exam(s) Completed: Pelvis X-Ray: Pelvis with Hip Right PERIPHERAL IV DATA: Not applicable SIGNED BY: RT Anna(R) March 25, 2025 11:10 AM documented in this encounterPromedica Bay Park Hospital07-16-2025 NotePrem[facility]07-16-2025 Instructions* Patient Instructions* Dee Ashley MD - 03/25/2025 10:21 AM EDT We discussed your hip pain: - You reported significant pain in your right hip, especially when walking, standing, or lying on your side. You also noted a popping sensation in the hip upon waking. - I performed a physical exam, which revealed pain in the hip joint and difficulty with certain movements. - I ordered an X-ray of your right hip to evaluate the joint and determine the cause of your pain. - I will refer you to an equipment specialist for further evaluation and management. You requestedto see someone other than Dr. Dickinson, and I have noted this preference in your chart. Please informthe service desk lead that you would like to see Peter Morales in [place]. We discussed pain management: - I prescribed Meloxicam (anti-inflammatory medication) to help manage your pain. This has been sent to your preferred [facility] pharmacy. - Please take Meloxicam only after eating, as it can irritate your stomach. This is especially important given your history of gastrointestinal bleeding. - I provided a one-month supply of Meloxicam. This is intended as a temporary measure until your hip is evaluated by orthopedics. We discussed your vitamin D levels: - Your vitamin D levels were previously low. Please continue taking your vitamin D supplements as directed. - I ordered blood work today to recheck your vitamin D levels and assess for anemia, as you have a history of anemia. Next steps: - Complete the X-ray of your right hip as soon as possible. - Schedule an appointment with the equipment specialist (Peter Morales in [place]) for further evaluation of your hip pain. - Take Meloxicam as prescribed and monitor for any side effects, such as stomach pain or bleeding. If you experience these symptoms, stop taking the medication and contact our office immediately. - Continue taking your vitamin D supplements as directed. - Follow up with our office after your X-ray and orthopedic evaluation to discuss next steps. If you have any questions or concerns, please contact our office. documented in this encounterPromedica Bay Park [facility]07-15-2025 History of Present illness Narrative* Marleni Mckeon RPh - 03/24/2025 9:38 AM EDT Yazan Nolasco is identified & reviewed as part of population health initiative focused on STAR measures care gaps through data from [employer] (insurer) as a potential candidate for statin therapy with no prescription claims processes for a statin medication in this calendar year. Patient has: [facility] and [facility] Patient has: diabetes and ASCVD diagnosis (CAD) Guideline recommendation: Per 2019 ACC/AHA guidelines, patient qualifies for a high intensity statin d/t history of ASCVD. Status: Patient is on a statin but does not meet the recommendation due to the following: Not on moderate or high intensity statin Follow-up: 03/24/25: Recommendation routed to provider to consider increasing lovastatin to 40 mg VBO Outcomes: Pending outreach to provider Marleni Mckeon RPh [facility] Team documented in this encounterPromedica Bay [facility] Hospital07-15-2025 Note[facility]07-15-2025 Note[facility]07-15-2025 Note[facility]07-15-2025 Note[facility]07-15-2025 Note [facility]07-15-2025 [facility]07-15-2025 [facility] 03-24-2025 NotePrem[facility]07-15-2025 Note[facility]06-30-2025 Note[facility]06-30-2025 History of Present illness Narrative* Aura Bates RN - 03/09/2025 2:48 PM EDT THE FOLLOWING WAS EVALUATED Motivation To Learn: Interested Family/Significant Other Support: Unable to assess - Family not present Cognitive Ability: Alert and oriented Patient Learns Best By: Verbal Instruction The Following Influencing Factors Were Barriers To This Education Session: None The Following Physical Limitations Were Barriers To This Education Session: None Instruction Provided To: Patient Procedure: Cardioversion Pre-procedure information reviewed: Patient ID verified Procedure verified Physician verified Explanation of procedure Sedation level during procedure MD medication instructions from EP lab request: Patient denies any missed doses of Eliquis in the past 3 weeks and is to continue taking uninterrupted. Patient will take half of long-acting dose evening before. Travel instructions/restrictions Scheduling information Possible same day discharge versus overnight hospital stay Check out time Family waiting area Physician contact with family after procedure Post Procedure Expectations reviewed: Inpatient hospital stay Post procedure antiarrhythmics and anticoagulation will be discussed with Physician, nurse practitioner or Physician agency sales management assistant upon discharge Instructions for transmitting EKG to Monitoring Center 3 month follow up instructions Contact number for information and questions Patient Evaluation: Verbalizes understanding Follow Up Plan: Follow up as directed by MD. Supplemental Material Given: Written Material Patient will have a cmv driver. Instructed By Aura Bates RN. In Department of CARDIOLOGY. documented in this encounterPromedica Bay Park Hospital06-27-2025 Telephone encounter Note * Telephone Encounter - Janel Catalan RN - 03/06/2025 1:02 PM EDT Patient was transferred to the scheduling office in attempt to schedule DCC as ordered. Patient requested the date of 03/10/25. Patient denies missing any doses of Eliquis in the past 3 weeks. Janel Catalan RN [facility]06-27-2025 Miscellaneous Notes* Telephone Encounter - Janel Catalan RN - 03/06/2025 1:02 PM EDT Patient was transferred to the scheduling office in attempt to schedule DCC as ordered. Patient requested the date of 03/10/25. Patient denies missing any doses of Eliquis in the past 3 weeks. Janel Catalan RN * Telephone Encounter - Janee Matos RN - 03/02/2025 10:46 AM EDT Attempted to contact patient in order to schedule DCC. Message left on 's phone since his phone's mailbox is full and cannot accept messages that they do need to call back in order to be scheduled. Janee Matos RN * Telephone Encounter - Janee Matos RN - 03/02/2025 10:45 AM EDT ----- Message from Christoph Chavis MD sent at 02/27/2025 1:18 PM EDT ----- EPS LAB PROCEDURE REQUEST: Cardioversion &/or COREY PATIENT: Yazan Nolasco Request Placed by: Christoph Chavis MD Requesting Physician: TREMAYNE Procedure Physician: avail Date of Last H&P? Today Procedure Requested: DCC Indications / Dx for procedure: Atrial Fibrillation Anticoagulation Status: Eliquis (apixaban) Type of bed needed: 2 HR RECOVERY IN I/O ROOM documented in this encounterPromedica Bay Park Hospital06-26-2025 NotePrem[facility]06-26-2025 History of Present illness Narrative* Rita Zuniga LPN - 03/05/2025 3:13 PM EDT Patient presents with: Imm/Inj Pt is identified by name and birthdate: Yes. Allergies and medications reviewed. Latex allergy? No. Does this patient have: Unplanned weight loss or gain of greater than 10 pounds, or a change of appetite over the last year? No Does the patient have any concerns about safety in the home/falls? Not at risk for falls Has the patient fallen in the past year? No Does the patient have difficulty performing or completing routine daily living activities? No Does this patient have concerns about personal safety? No Is patient having pain? Pain: No=0 (pain 0 on a scale of 0-10). Health Maintenance: Reviewed and updated. Does patient have MyChart access or Caregiver proxy: yes Pt/Caregiver willingness and readiness to learn assessed: Yes. Barriers: none cyanocobalamin injection administered, left deltoid, tolerated well, no immediate adverse reactionsnoted. Rita Zuniga LPN documented in this encounterPromedica Bay Park Hospital06-23-2025 Telephone encounter Note * Telephone Encounter - Janee Matos RN - 03/02/2025 10:46 AM EDT Attempted to contact patient in order to schedule DCC. Message left on 's phone since his phone's mailbox is full and cannot accept messages that they do need to call back in order to be scheduled. Janee Matos RN [facility]06-23-2025 Telephone encounter Note* Telephone Encounter - Janee Matos RN - 03/02/2025 10:45 AM EDT ----- Message from Christoph Chavis MD sent at 02/27/2025 1:18 PM EDT ----- EPS LAB PROCEDURE REQUEST: Cardioversion &/or COREY PATIENT: Yazan Nolasco Request Placed by: Christoph Chavis MD Requesting Physician: TREMAYNE Procedure Physician: 1st avail Date of Last H&P? Today Procedure Requested: DCC Indications / Dx for procedure: Atrial Fibrillation Anticoagulation Status: Eliquis (apixaban) Type of bed needed: 2 HR RECOVERY IN I/O ROOM [facility]06-20-2025 NotePrem[facility]06-20-2025 History of Present illness Narrative* Christoph Chavis MD - 02/27/2025 1:09 PM EDT HISTORY OF PRESENT ILLNESS The above relevant present and past medical Hx was verified and the exam findings were confirmed with additional exam findings added/clarified and/or corrected in my exam below. Additional Hx/summaryis as follows: The patient is a 74-year-old male with a history of persistent atrial fibrillation, paroxysmal ventricular tachycardia, and ICD placement, presenting for follow-up. The patient has been experiencing multiple health issues since the beginning of the year, includingrecurrent UTIs and nephrolithiasis, which led to significant functional decline. He reports episodes of fever and near-sepsis, resulting in multiple hospitalizations. During these episodes, he experienced severe weakness, necessitating the use of a wheelchair. He denies any injuries from falls and does not report syncope or presyncope. He initially attributed his symptoms to nephrolithiasis, but later realized they were due to UTIs. He was unable to take antibiotics for 3 days due to medicationinteractions, which exacerbated his condition. He is currently recovering and regaining strength. He reports dyspnea on exertion but denies orthopnea or paroxysmal nocturnal dyspnea. He can walk short distances, such as to the mailbox and back, but requires rest during longer activities. He uses an inhaler prophylactically before engaging in strenuous activities, which he finds helpful. He denies any awareness of palpitations or irregular heartbeats. He reports significant bilateral lower extremity edema, worse on the side of a recent ankle sprain. He has been wearing compression stockings to manage the swelling. He has a history of atrial fibrillation and underwent cardioversion in April of last year, after which he reported feeling better. However, a pacemaker check in August revealed atrial flutter. He has not experienced any ICD shocks and denies any awareness of arrhythmias. He reports that his blood pressure is usually well-controlled at home. He has a history of COPD and was previously prescribed a nebulizer and a dual- powder inhaler, whichhe did not use. He is scheduled to see his mathematical sciences professor next week. He underwent an echocardiogram in December, which showed normal LVEF and no significant valvular abnormalities. Mild pulmonary hypertension was noted. He is currently taking Eliquis and has not missed any doses. He was previously on warfarin but had difficulty maintaining therapeutic INR levels. Cardiac meds reviewed. Meds and allergies were reviewed/updated in [facility]. General - Well-developed, well-nourished, no acute distress. HEENT - Normocephalic, atraumatic. Neck -Supple, ++ JVD, no bruits, no thyromegaly. Heart - Irreg, no murmur. Lungs - CTA bilaterally. Device site - Well healed, L upper chest Abdomen - Positive bowel sounds, no bruit, no organomegaly, no masses. Back - Non-tender. Extremities - 3+ bilat LE edema to knees. Normal pulses. Neuro - Alert and oriented to person, place, time. ECG today in the office reviewed. AFL, PVCs. Device interrogation reviewed. 100% AF since early August. Good rate control. The risks, benefits and alternatives of the procedure as well as lab personnel, were discussed withthe patient and consent was obtained. IMPRESSION: 1. Paroxysmal ventricular tachycardia, status post defibrillator 2. Persistent atrial fibrillation 3. Acute on chronic diastolic heart failure 4. BMI 39 5. Essential hypertension 6. Obstructive sleep apnea 7. Type 2 diabetes, insulin requiring PLAN: Mr. Nolasco returns today with his . He reports multiple noncardiac issues in the recent past. He also notes that he is much more dyspneic with exertion and that he is retaining more fluids despite treatment with diuretics. He is in atrial fibrillation according to his device check and has beensince August. In the past, after undergoing cardioversion he felt much better. I suspect this will help with his acute diastolic heart failure symptoms. I will have him increase his diuretics and get him scheduled for cardioversion. Consent was obtained for this today. We discussed the possible need for antiarrhythmic medications and ablation, especially if this dramatically improves his overall function and heart failure. His GFR appears to be normal. He has not missed any of his doses of his anticoagulation. He recently switched from warfarin to apixaban he finds this much easier to use. We will be able to follow-up with his device if he has recurrence. He understands the importance of weight loss and his overall wellbeing. Follow-up will be arranged after the cardioversion. Christoph Chavis MD CC - Dee Ashley MD This clinical note has been produced using speech recognition software and may contain errors related to that system including grammar, punctuation, spelling, gender and words and phrases that may beinappropriate. * Yaneth Bates, JESSICA - 02/27/2025 12:29 PM EDT Images from the original note were not included. [facility] Department of Cardiovascular Medicine SECTION OF CARDIAC PACING and ELECTROPHYSIOLOGY OUTPATIENT VISIT DATE February 27, 2025 OUTPATIENT VISIT TYPE ESTABLISHED PRIMARY CARE PHYSICIAN: Dee Ashley [address] [place] [address] REFERRING PHYSICIAN: Christoph Chavis [address] [facility] [id number] CHIEF COMPLAINT: Cardiology Follow Up NURSING INTAKE HISTORY: Mr. Nolasco is a 74 year old male who presents today for follow-up visit. He has a history of [place] (on CPAP), hypothyroidism, diabetes, hyperlipidemia, hypertension, CAD, PVCs, PVT s/p ICD 2011, s/p generator change 2018, and atrial flutter s/p DCC 04/2023. He is maintainedon metoprolol and eliquis. He was last seen in office September 2023. In early 2024, he was hospitalized for UTI and kidney stones. He has been in persistent AFL for several months without any attempts to restore NSR, mostly asymptomatic. He was recently switched from coumadin to eliquis. 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 Diabetes mellitus (HCC) Diarrhea Dual implantable cardioverter-defibrillator in situ Dyslipidemia Esophageal reflux Ex-smoker History of transfusion Hypothyroidism 11/21/2022 Mononeuritis of unspecified site Obesity, unspecified Other chronic nonalcoholic liver disease Personal history of colonic polyps 03/20/2005 hyperplastic polyps Unspecified essential hypertension PAST SURGICAL HISTORY Procedure Laterality Date BSCAN OS (LEFT EYE) Left CARDIOVERSION 04/30/2023 COLONOSCOPY FLX DX W/COLLJ SPEC WHEN PFRMD 03/20/2005 Colonoscopy COLONOSCOPY FLX DX W/COLLJ SPEC WHEN PFRMD 06/15/2015 Colonoscopy [facility] out pt ENDOSCOPY PROC 08/2018 ESOPHAGOGASTRODUODENOSCOPY TRANSORAL DIAGNOSTIC 06/15/2015 EGD WC out pt EXCISION PILONIDAL CYST/SINUS SIMPLE 01/19/2003 Excision pilonidal cyst PACEMAKER SURGERY 03/11/2012 pacer/defib PACEMAKER SURGERY 09/17/2018 PAST SURGICAL HISTORY OF 09/16/2012 eye surgery, s/p Plaque OS PRO SMART PILL CAPSULE PROC ([id number]) 10/15/2018 REMOVAL GALLBLADDER 06/10/2021 REMOVE PACEMAKER SYSTEM 09/17/2018 replaced it all RPR UMBILICAL HERNIA < 5 YRS REDUCIBLE 02/17/1999 Hernia repair, umbilical SOCIAL HISTORY Social History Tobacco Use Smoking status: Former Current packs/day: 0.00 Average packs/day: 1 pack/day for 40.0 years (40.0 ttl pk-yrs) Types: Cigarettes Start date: 03/26/1969 Quit date: 03/26/2009 Years since quittin.9 Smokeless tobacco: Never Vaping Use Vaping status: Never Used Substance Use Topics Alcohol use: Not Currently Comment: recovering 1991 Drug use: Not Currently FAMILY HISTORY Problem Relation Age of Onset Heart Mother of CHF at 91 Stroke Mother Hypertension Mother other (Other) Father at 87 of a brain aneurysm Hypertension Brother Stroke Brother Heart Brother Goiter Maternal Grandmother Aneurysm Maternal Grandfather brain No Ocular Disease Other Colon Cancer No Family History ALLERGIES: ALLERGIES No Known Allergies MEDICATIONS: magnesium oxide (MAGOX) 400 mg (241.3 mg magnesium) tablet Take 1 tablet by mouth two times a day. insulin glargine (LANTUS SOLOSTAR U-100 INSULIN) 100 unit/mL (3 mL) Inject 25 Units subcutaneously daily at bedtime. ergocalciferol 50,000 unit capsule (VITAMIN D2, DRISDOL) Take 1 capsule by mouth two times a week. TO BE TAKEN ORALLY DIRECTED. Take 1 tablet by mouth twice weekly [id number], then decrease to 1 tablet weekly. semaglutide (OZEMPIC) 1 mg/dose (4 mg/3 mL) pen Inject 1 mg subcutaneously one time a week. apixaban (ELIQUIS) 5 mg tab(s) Take 1 tablet by mouth two times a day. potassium chloride (KLOR-CON 10) 10 mEq tablet Take 1 tablet by mouth two times a day. tamsulosin (FLOMAX) 0.4 mg Take 2 capsules by mouth once daily. lovastatin (MEVACOR) 20 mg tablet Take 1 tablet by mouth every other day. gabapentin (NEURONTIN) 600 mg tablet Take 1 tablet by mouth daily at bedtime. furosemide (LASIX) 20 mg tablet Take 1 tablet by mouth once daily. buPROPion XL (WELLBUTRIN XL) 150 mg 24 hr tablet Take 1 tablet by mouth once daily. amLODIPine (NORVASC) 5 mg tablet Take 0.5 tablets by mouth once daily. metoprolol tartrate, short acting, (LOPRESSOR) 100 mg tablet Take 1 tablet by mouth two times a day. allopurinol (ZYLOPRIM) 100 mg tablet Take 2 tablets by mouth once daily. DULoxetine (CYMBALTA) 60 mg capsule Take 1 capsule by mouth once daily. levothyroxine (SYNTHROID) 50 mcg tablet TAKE 1 TABLET BY MOUTH ONCE DAILY ON AN EMPTY STOMACH FOR THYROID ferrous sulfate 325 mg (65 mg iron) tablet Take 1 tablet by mouth every Sunday, Sunday, and Sunday. apremilast (OTEZLA) 30 mg tablet Take 1 tablet by mouth twice daily. clobetasol (TEMOVATE) 0.05 % cream APPLY TO THE AFFECTED FLARES ON THE HANDS TWICE DAILY FOR 2 WEEKS THEN TAKE A WEEK OFF BEFORE RESUMING. lisinopril (ZESTRIL, PRINIVIL) 40 mg tablet Take 1 tablet by mouth once daily. acetaminophen (TYLENOL) 500 mg tablet Take 500 mg by mouth as needed. LILO PEN NEEDLE 32 gauge x ndle USE TWICE DAILY WITH INSULIN DOSE Blood Sugar Diagnostic, Drum (ACCU-CHEK COMPACT TEST) strp Test blood sugar(s) 4 times daily. Dx: DM 250 Insulin: Yes Lancets (ACCU-CHEK SOFTCLIX LANCETS) Misc lancets three times daily as needed. Dx. 250.00 Yaneth Bates RN PHYSICAL EXAMINATION: BP 160/80 Pulse 85 Ht 176.5 cm (5' 9.5) Wt 122.9 kg (271 lb) BMI 39.45 kg/m CARDIOVASCULAR MEDICINE TESTING: In-Office Check DUAL CHAMBER ICD EVALUATION *Patient presents for OPD visit with Dr. Levy* * Presenting Rhythm: Atrial Flutter (cycle length 237ms)/VS * Underlying Rhythm: A. Flutter with controlled ventricular rate * Normal Device Function * Events or Alerts since last remote on 01/14/2025: 6 episodes marked as high ventricular rate are consistent with AFL with RVR. AF burden 53% ongoing since Aug 2024. Maintained on Elliquis * Battery: 6.5 years remaining until AMPARO * Sensing, impedance and RV threshold reviewed and tested. Measurements are WNL and outputs maintain adequate safety margin * Heart Rate Histograms reviewed * Pacing and Detection Parameters were evaluated * Implant site appears well healed and without s/s of infection. Additional Notes: AP <1% MANAGER IN TRAINING 14% Device Reprogrammed Device reprogrammed, changes are listed below: * ATR/VTR fallback lower rate limit decreased to 60bpm (noted higher RV pacing burden, most likely correlating to mode switch base rate) * VT SDR turned off TTE 12/2024: CONCLUSIONS: - Technically difficult exam due to body habitus. - Exam indication: Atrial fibrillation - The left ventricle is normal in size. Left ventricular systolic function is normal. EF = 55 5% (visual est.). Indeterminate left ventricular diastolic function. - The right ventricle is normal in size. Right ventricular systolic function is normal. - The left atrial cavity is moderately dilated. - There are no significant valvular abnormalities. - The visualized aorta is dilated with a maximal dimension of 4.1 cm. - Estimated right ventricular systolic pressure is 41 mmHg consistent with mild pulmonary hypertension. Estimated right atrial pressure is 3 mmHg based on IVC assessment. - Exam was compared with the prior echocardiographic exam performed on 05/29/2022, Ascending aorta is more dilated. documented in this encounterProm[facility]25 History of Present illness Narrative* Marleni Mckeon RPh - 02/24/2025 7:35 AM EDT Yazan Nolasco is identified & reviewed as part of population health initiative focused on STAR measures care gaps through data from [employer] (insurer) as a potential candidate for statin therapy with no prescription claims processes for a statin medication in this calendar year. Patient has: [facility] and [facility] provider [facility] Patient has: diabetes and ASCVD diagnosis (CAD) Guideline recommendation: Per 2018 ACC/AHA guidelines, patient qualifies for a high intensity statin d/t history of ASCVD. Status: Patient is on a statin but does not meet the recommendation due to the following: Not on moderate or high intensity statin Follow-up: 02/24/25: Recommendation routed to provider to consider increasing lovastatin to 40 mg VBO Outcomes: Pending outreach to provider Marleni Mckeon RPh [facility] * Marleni Mckeon RPh - 02/24/2025 7:35 AM EDT Follow-up: 02/24/25: Provider declines at this time as he is in electrophysiology. WIll reach out at next qualifying MD apt. VBO Outcomes: Pending outreach to provider Marleni Mckeon RPh [facility] documented in this encounterPromedica [facility]06-17-2025 [facility]06-17-2025 Note[facility]06-06-2025 History of Present illness Narrative* Karen Alexander Tech - 02/13/2025 12:20 PM EDT Radiology Service Progress Note PATIENT NAME: Yazan Nolasco DATE OF SERVICE: February 13, 2025 TIME: 12:27 PM PATIENT IDENTITY VERIFICATION COMPLETED USING TWO (2) IDENTIFIERS: Name and Date of confirmedby patient verbally. FALL SCREENING: Has the patient had 2 falls in the last year or 1 fall with injury or currently using an Ambulatory Assistive Device (Walker, Cane, Wheelchair, Crutches, etc.)? No PATIENT GENDER DATA: Assigned male at PATIENT RELEVANT IMPLANT DATA REVIEWED: Not Applicable PATIENT PRESENTS WITH AN IMPLANTABLE OR ATTACHED APPELLATE COURT CLERK: No RADIOLOGY DEPARTMENT: General X-ray: Exam(s) Completed: Lower Extremity X- Ray(s): Ankle, Right and Foot, Right PERIPHERAL IV DATA: Not applicable SIGNED BY: Alf Cason February 13, 2025 12:27 PM documented in this encounterPromedica [facility]06-06-2025 [facility]06-06-2025 [facility]06-06-2025 History of Present illness Narrative* Nicky Pierson MD - 02/13/2025 12:10 PM EDT [facility] Subjective Yazan Nolasco is a 74 year old male. Patient presents with: Ankle Injury: R ankle injury x6 days, bruising up entire lower leg, foot swelling and redness Patient's foot slipped off a truck running board and he sprained his ankle 6 days ago. He has had pain and swelling since which has not worsened or improved. He presents today at his 's urging for evaluation. Pain is described as sharp and burning in the right lower calf/ankle and top of the right foot. He has significant bruising and swelling which he attributes to blood thinner (Eliquis). He has used compression on the leg. He is able to ambulate but weight bearing is painful. Review of Systems Objective BP 158/84 Pulse 86 Temp 36.4 C (97.6 F) Resp 18 Wt 124.5 kg (274 lb 7.6 oz) SpO2 95% BMI 41.12 kg/m Physical Exam Constitutional: General: He is not in acute distress. Musculoskeletal: Comments: ANKLE: right . Swelling and ecchymosis present lower leg to foot. Range of motion: inversion - painful, eversion - non-painful, anterior drawer- non-painful. able tobear weight. Mildly antalgic gait. Palpation: Medial malleolus non-painful, lateral malleolus painful, Dorsal foot - painful 2-3+ edema, proximal 5th metatarsal non-painful, posterior calcaneus non-painful. Pulses not palpable (significant swelling). Neurological: Mental Status: He is alert. {ASSESSMENT/PLAN: 1. Traumatic ecchymosis of lower leg, right, initial encounter - ICD9: 924.10, ICD10: S80.11XA (primary diagnosis) 2. Foot pain, right - ICD9: 729.5, ICD10: M79.671 3. Acute right ankle pain - ICD9: 719.47, 338.19, ICD10: M25.571 - XR ANKLE GENERAL 3V AP/LAT/OBL RIGHT - XR FOOT GENERAL 3V AP/LAT/OBL RIGHT No acute fractures. Continue supportive care for bruising which should self resolve over the next several weeks. Nicky Pierson MD Differential Diagnoses - ecchymosis is more likely for the following reason(s): suggested by H&P - foot fracture is less likely for the following reason(s): no evidence on imaging - cellulitis is less likely for the following reason(s): H&P not suggestive Procedures documented in this encounterPromedica [facility]06-02-2025 Telephone encounter Note * Telephone Encounter - Kiley Butts LPN - 02/09/2025 11:32 AM EDT Patient has been identified by name and date of : Yes Patient phones for refill(s): Requested Prescriptions Pending Prescriptions Disp Refills magnesium oxide (MAGOX) 400 mg (241.3 mg magnesium) tablet 180 tablet 3 Sig: Take 1 tablet by mouth two times a day. Date of last office visit in primary care: 01/19/2025 Date of next office visit in primary care: 03/25/2025 Please advise. Thank you. Kiley Butts LPN. [facility]06-02-20[facility] Miscellaneous Notes* Telephone Encounter - Kiley Butts LPN - 02/09/2025 11:32 AM EDT Patient has been identified by name and date of : Yes Patient phones for refill(s): Requested Prescriptions Pending Prescriptions Disp Refills magnesium oxide (MAGOX) 400 mg (241.3 mg magnesium) tablet 180 tablet 3 Sig: Take 1 tablet by mouth two times a day. Date of last office visit in primary care: 01/19/2025 Date of next office visit in primary care: 03/25/2025 Please advise. Thank you. Kiley Butts LPN. documented in this encounterPromedica [facility]05-29-2025 Note[facility]05-29-2025 History of Present illness Narrative* Rita Zuniga LPN - 02/05/2025 3:16 PM EDT Patient presents with: Imm/Inj Pt is identified by name and birthdate: Yes. Allergies and medications reviewed. Latex allergy? No. Does this patient have: Unplanned weight loss or gain of greater than 10 pounds, or a change of appetite over the last year? No Does the patient have any concerns about safety in the home/falls? Not at risk for falls Has the patient fallen in the past year? No Does the patient have difficulty performing or completing routine daily living activities? No Does this patient have concerns about personal safety? No Is patient having pain? Pain: No=0 (pain 0 on a scale of 0-10). Health Maintenance: Reviewed and updated. Does patient have MyChart access or Caregiver proxy: yes Pt/Caregiver willingness and readiness to learn assessed: Yes. Barriers: none Cyanocobalamin injection administered, right Deltoid, tolerated well, no immediate adverse reactions noted. Rita Zuniga LPN documented in this encounterPromedica [facility]05-16-2025 Telephone encounter Note * Telephone Encounter - Shelia Charles MA - 01/23/2025 12:04 PM EDT Left message for return call. [facility] Miscellaneous Notes* Telephone Encounter - Shelia Charles MA - 01/23/2025 12:04 PM EDT Left message for return call. * Telephone Encounter - Dee Ashley MD - 01/22/2025 5:22 PM EDT Please inform patient of very low vitamin d levels, We are giving her replacement doses, sent to her regular pharmacy. This might help in the overall mood and energy. He needs to take it immediately after eating. The hemoglobin is 11.4, vit b12 and rest of the labs are good Regards, Dee Ashley MD documented in this encounterPromedica [facility]05-15-2025 Telephone encounter Note * Telephone Encounter - Dee Ashley MD - 01/22/2025 5:22 PM EDT Please inform patient of very low vitamin d levels, We are giving her replacement doses, sent to her regular pharmacy. This might help in the overall mood and energy. He needs to take it immediately after eating. The hemoglobin is 11.4, vit b12 and rest of the labs are good Regards, Dee Ashley MD [facility]05-12-2025 [facility]05-12-2025 History of Present illness Narrative* Dee Ashley MD - 01/19/2025 5:07 PM EDT Reason for Visit Follow up RICARDO Walsh is a 74-year-old male with a history of HTN, DM, psoriasis, and psoriatic arthritis, presenting for follow-up after a fall and to discuss recent lab results. Yazan reports a fall that occurred on Sunday while picking up sticks on a concrete patio. He bentover to pear picker a stick, lost his balance, and fell forward, landing on his right side. He used hisright hand to prevent hitting his head. Since the fall, he has been experiencing pain in his right ribs. He denies head injury or loss of consciousness. He also reports chronic hip pain, which he attributes to a previous work-related injury over 50 years ago that required surgical repair. He notes that the pain has worsened with age. Yazan is currently on Eliquis and reports that his hemoglobin levels have improved, with the most recent level being 11.8 g/dL. He was previously on Coumadin but has since discontinued it. He is not currently taking iron supplements due to previous gastrointestinal side effects and potential interac tions with Coumadin. He has started taking Boost for additional protein intake. He is also on semaglutide for diabetes management, with a recent A1c of 5.4%. He is not currently taking Otezla for psoriasis due to insurance issues but plans to discuss this with his egg tester at the end of the month. He reports worsening stiffness in his hands, particularly the left, since discontinuing Otezla. Yazan is on multiple antihypertensive medications, including lisinopril, Lasix, and Norvasc, but reports elevated blood pressure readings at home. He is also on Wellbutrin, allopurinol, and thyroid medication. His spouse manages his medications and ensures they are taken consistently. He uses a CPAP machine every night and reports sleeping 10-12 hours per night, which he finds beneficial. He denies any issues with the CPAP machine and reports good adherence to its use. 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 Pertinent Lab/Diagnostic Studies are reviewed and discussed today Current Outpatient Medications: apixaban (ELIQUIS) 5 mg tab(s) potassium chloride (KLOR-CON 10) 10 mEq tablet tamsulosin (FLOMAX) 0.4 mg lovastatin (MEVACOR) 20 mg tablet gabapentin (NEURONTIN) 600 mg tablet furosemide (LASIX) 20 mg tablet buPROPion XL (WELLBUTRIN XL) 150 mg 24 hr tablet amLODIPine (NORVASC) 5 mg tablet metoprolol tartrate, short acting, (LOPRESSOR) 100 mg tablet allopurinol (ZYLOPRIM) 100 mg tablet DULoxetine (CYMBALTA) 60 mg capsule levothyroxine (SYNTHROID) 50 mcg tablet magnesium oxide (MAGOX) 400 mg (241.3 mg magnesium) tablet clobetasol (TEMOVATE) 0.05 % cream lisinopril (ZESTRIL, PRINIVIL) 40 mg tablet acetaminophen (TYLENOL) 500 mg tablet LILO PEN NEEDLE 32 gauge x 5/32 ndle Blood Sugar Diagnostic, Drum (ACCU-CHEK COMPACT TEST) strp Lancets (ACCU-CHEK SOFTCLIX LANCETS) Misc lancets insulin glargine (LANTUS SOLOSTAR U-100 INSULIN) 100 unit/mL (3 mL) semaglutide (OZEMPIC) 1 mg/dose (4 mg/3 mL) pen ferrous sulfate 325 mg (65 mg iron) tablet apremilast (OTEZLA) 30 mg tablet Health Maintenance BP Controlled (<130/80) Hepatitis B Vaccine(1 of 3 - Risk 3-dose series) Shingrix Vaccine(1 of 2) DTaP,Tdap,Td Vaccine(3 - Td or Tdap) Dilated Retinal Exam Advance Directive Discussion@ Review Of Systems Constitutional: (+) weight gain Musculoskeletal: (+) knee pain, (+) shoulder pain, (+) hip pain, (+) left hand stiffness, (+) rightrib pain Skin: (+) elbow skin tear, (-) psoriasis flare Neurological: (+) balance difficulty Physical Exam BP 170/94 Pulse 89 Resp 16 Wt 120.7 kg (266 lb) SpO2 95% BMI 39.85 kg/m GENERAL: NAD, alert and oriented. SKIN: Unremarkable, no rash or skin lesions. HEAD: Normocephalic. EYES: PERRLA, EOMI, conjunctiva clear. EARS: External ears normal, canals clear, TM's normal. LUNGS: Clear to auscultation bilaterally, no wheezes/rhonchi/rales. HEART: Regular rate and rhythm, no murmurs. No ectopy. EXTREMITIES: Normal, no deformities, no skin discoloration, no edema. NEURO: Awake, alert and oriented x3, cranial nerves II-XII grossly intact, normal gait, no involuntary motions. Labs: - Hemoglobin: 11.8 - INR: 1.2 - Hemoglobin A1c: 5.4 - Hemoglobin: 11.3 - Hemoglobin: 11.6 Imaging: Tests: Assessment and Plan 1. Type 2 diabetes mellitus with diabetic mononeuropathy, with long-term current use of insulin (HCC) (E11.41) Hemoglobin A1c is 5.4%, within non-diabetic range. Recent eye exam completed for diabetic retinopathy screening. - Continue current insulin regimen. - Monitor blood glucose levels regularly. 2. Diabetic gastropathy (HCC) (E11.69) Condition is stable. 3. Vitamin D deficiency (E55.9) Suspected contributing factor to elevated ALP levels. - Ordered serum vitamin D level. - Initiate vitamin D supplementation in combination with vitamin K. 4. Iron deficiency (E61.1) Previous oral iron supplementation discontinued due to gastrointestinal side effects and potential interaction with warfarin. - Recommend iron supplementation in syrup form from health food stores. 5. Pure hypercholesterolemia (E78.00) Well-controlled on current medication regimen. 6. Essential hypertension (I10) Blood pressure readings elevated today; patient is on lisinopril, Lasix, and Norvasc. - Monitor blood pressure at home. - Re-evaluate medication regimen if hypertension persists. 7. Hypothyroidism, unspecified type (E03.9) Current thyroid function tests indicate potential need for medication adjustment. - Recheck thyroid function tests. - Educated patient on importance of medication adherence and timing. 8. Psoriatic arthritis (HCC) (L40.50) Increased stiffness in hands, particularly the left hand. Patient not currently on Otezla due to insurance issues. - Discuss Otezla prescription issues with Dr. Smith at the end of the month. 9. SVT (supraventricular tachycardia) (HCC) (I47.10) Condition is stable. 10. Morbid obesity (HCC) (E66.01) Contributing factor to multiple comorbidities. - Continue semaglutide therapy. - Encourage weight management through diet and exercise. 11. [place] on CPAP (G47.33) Condition is well-managed with consistent CPAP use. 12. Fall, sequela (W19.XXXS) Fall, initial encounter (W19.XXXA) Recent fall on concrete surface while picking up sticks, resulting in rib pain and potential injury. - Ordered X-ray of the right ribs to rule out fractures. - Monitor for any additional symptoms or complications. Voice recognition software was used to compose this office note. Please excuse any unintended typographical errors. Recording using ambient [employer] software for draft documentation of the visit was discussed with the patient/authorized manufacturers representative; all questions welcomed and answered. Patient/authorized manufacturers representative agreed to proceed Dee Ashley MD documented in this encounterPromedica [facility]05-12-2025 History of Present illness Narrative* Rocío Fenrandes RT(R) - 01/19/2025 11:30 AM EDT Radiology Service Progress Note PATIENT NAME: Yazan Nolasco DATE OF SERVICE: January 19, 2025 TIME: 11:37 AM PATIENT IDENTITY VERIFICATION COMPLETED USING TWO (2) IDENTIFIERS: Name and Date of confirmedby patient verbally. FALL SCREENING: Has the patient had 2 falls in the last year or 1 fall with injury or currently using an Ambulatory Assistive Device (Walker, Cane, Wheelchair, Crutches, etc.)? No PATIENT GENDER DATA: Assigned male at PATIENT RELEVANT IMPLANT DATA REVIEWED: Not Applicable PATIENT PRESENTS WITH AN IMPLANTABLE OR ATTACHED APPELLATE COURT CLERK: No RADIOLOGY DEPARTMENT: General X-ray: Exam(s) Completed: Rib X-Ray: Right PERIPHERAL IV DATA: Not applicable SIGNED BY: RT Ion(R) January 19, 2025 11:37 AM documented in this encounterPromedica Bay [facility]05-12-2025 Note[facility]05-12-2025 Instructions* Patient Instructions* Dee Ashley MD - 01/19/2025 10:54 AM EDT We discussed your hemoglobin levels and overall health: - Your hemoglobin has improved to 11.8, which is a significant improvement from when it was lower due to previous bleeding. No further blood transfusions are needed at this time. - Your A1c is 5.4, which is in the non-diabetic range. This is a good result, and no changes are needed for now. - I will check your vitamin D levels during your next blood work, as low vitamin D can sometimes elevate ALP levels. In the meantime, you can start taking a combination of vitamin D and vitamin K. This is safe now that you are no longer on Coumadin. You can find this combination at health stores orpharmacies. We discussed your medications: - You are no longer on Coumadin and are now taking Eliquis. This means you no longer need INR testing. - Continue taking your current medications, including Wellbutrin, allopurinol, Norvasc, lisinopril,and Lasix. Your blood pressure was high today, so please monitor it at home and let me know if it remains elevated. - You are not currently taking an iron pill due to previous side effects. If needed, you can try aniron syrup, which may be easier to tolerate. Let me know if you would like to explore this option further. - You are not currently taking Otezla for your psoriasis due to insurance issues. You mentioned youwill follow up with Dr. Smith at the end of the month to address this. We discussed your recent fall and rib pain: - You fell on Sunday while picking up sticks and have pain in your ribs. I ordered an x-ray of your ribs to check for any fractures. Please complete this as soon as possible. - You reported hip pain, but based on your ability to move, I do not suspect a fracture. However, let me know if the pain worsens or limits your mobility. We discussed your activity and sleep: - You mentioned difficulty with balance and strength. Please avoid activities that may increase your risk of falling, such as bending over without support. Consider using a stable surface or support when picking up items. - You are sleeping well, averaging 10-12 hours per night, which is helping you feel better overall.Continue using your CPAP machine nightly, as it is beneficial for your health. Next steps: - Complete the x-ray of your ribs to rule out any fractures. - Monitor your blood pressure at home and let me know if it remains high. - Follow up with Dr. Smith regarding your psoriasis treatment. - I have ordered blood work for you, which is valid for the next three months. Please complete it at your convenience. Let me know if you have any new or worsening symptoms or concerns. documented in this encounterProm[facility] History of Present illness Narrative* Marleni Mckeon RPh - 01/16/2025 5:13 PM EDT Yazan Nolasco is identified & reviewed as part of population health initiative focused on STAR measures care gaps through data from [employer] (insurer) as a potential candidate for statin therapy with no prescription claims processes for a statin medication in this calendar year. Patient has: [facility] and [facility] provider [facility] Patient has: diabetes and ASCVD diagnosis (CAD) Guideline recommendation: Per 2018 ACC/AHA guidelines, patient qualifies for a high intensity statin d/t history of ASCVD. Status: Patient is on a statin but does not meet the recommendation due to the following: Not on moderate or high intensity statin (lovastatin 20 mg) Follow-up: 01/16/25: Recommendation routed to provider to consider increasing statin dose to 40 mg prior to visit on 01/19 VBO Outcomes: Pending outreach to provider Marleni Mckeon RPh [facility] Team documented in this encounterProm[facility]ica [facility]05-09-[facility]-01-[facility] History of Present illness Narrative* Rita Zuniga LPN - 01/08/2025 3:09 PM EDT Patient presents with: Imm/Inj Pt is identified by name and birthdate: Yes. Allergies and medications reviewed. Latex allergy? No. Does this patient have: Unplanned weight loss or gain of greater than 10 pounds, or a change of appetite over the last year? No Does the patient have any concerns about safety in the home/falls? Not at risk for falls Has the patient fallen in the past year? Yes: Patient has the following symptoms: weakness and no symptoms at this time Does the patient have difficulty performing or completing routine daily living activities? No Does this patient have concerns about personal safety? No Is patient having pain? Pain: no Health Maintenance: Reviewed and updated. Does patient have MyChart access or Caregiver proxy: yes Pt/Caregiver willingness and readiness to learn assessed: Yes. Barriers: none Cyanocobalamin injection administered,left Deltoid, tolerated well, no immediate adverse reactions noted. Rita Zuniga LPN documented in this encounterPromedica [facility]04-28-2025 Telephone encounter Note * Telephone Encounter - vAelina Porras RN - 01/05/2025 5:02 PM EDT Called and left message for the patient to call back. Per Dr. Kwaku Ellis script sent in. Patient able to start the medication as long as his INR is less than 3.0 and stop taking the coumadin. If the cost is to much there is a patient assistance program that he may qualify for. The application is online. Avelina Porras RN [facility]04-28-2025 Miscellaneous Notes* Telephone Encounter - Avelina Porras RN - 01/05/2025 5:02 PM EDT Called and left message for the patient to call back. Per Dr. Kwaku Ellis script sent in. Patient able to start the medication as long as his INR is less than 3.0 and stop taking the coumadin. If the cost is to much there is a patient assistance program that he may qualify for. The application is online. Avelina Porras RN * Telephone Encounter - Avelina Porras RN - 01/01/2025 3:47 PM EDT Patient sent in a request for an appointment. Patient called and states that he is having increasing difficulty keeping a therapeutic INR. Patient interesting in changing to a different blood thinner. Patient asking about options. Does the patient need to be seen in the office? Next scheduled appointment is 03/16/25. Please review and advise. Avelina Porras RN Will switch to jeremias ordonez documented in this encounterPromedica [facility]04-24-2025 Telephone encounter Note * Telephone Encounter - Avelina Porras RN - 01/01/2025 3:47 PM EDT Patient sent in a request for an appointment. Patient called and states that he is having increasing difficulty keeping a therapeutic INR. Patient interesting in changing to a different blood thinner. Patient asking about options. Does the patient need to be seen in the office? Next scheduled appointment is 03/16/25. Please review and advise. Avelina Porras RN Will switch to jeremias ordonez [facility]04-18-20[facility] Telephone encounter Note* Telephone Encounter - Yaneth Dominguez MA - 12/26/2024 4:46 PM EDT notified. Yaneth Dominguez MA [facility]04-18-2025 Miscellaneous Notes* Telephone Encounter - Yaneth Dominguez MA - 12/26/2024 4:46 PM EDT notified. Yaneth Dominguez MA * Telephone Encounter - Dee Ashley MD - 12/26/2024 4:42 PM EDT Yes, I would like him to wait but I would need him to take the coumadin till then. Regards, Dee Ashley MD * Telephone Encounter - Yaneth Dominguez MA - 12/26/2024 2:25 PM EDT Patient and states he would take whatever is recommended. However, he wanted PCP aware at the [facility] he was instructed to follow up with [facility] in regards to changing blood thinner all together. Patient has a [facility] appt 12/30/24. Dr. Ashley: Would you like to wait on Eliquis until [facility] appt? Please advise. (Pharmacy is [facility]). Yaneth Dominguez MA * Telephone Encounter - Eduardo Bhardwaj RN - 12/25/2024 5:11 PM EDT Called and left a voicemail for the Patient to call back and ask for a nurse to receive the providers message. Eduardo Bhardwaj RN * Telephone Encounter - Dee Ashley MD - 12/25/2024 12:28 PM EDT Please ask patient if he would consider taking Eliquis? Regards, Dee Ashley MD * Telephone Encounter - Aminah Aranda LPN - 12/24/2024 2:20 PM EDT Last INR: INR (POCT) 1.5 12/24/2024 Current dose of coumadin is: 5mg 5 days a weekand 2.5mg 2 days a week. Last date of dose change: 12/18/2024. Previous INR (date and result): 1.6 Additional Clinical Information or narrative: no documented in this encounterPromedica [facility]04-18-2025 Telephone encounter Note * Telephone Encounter - Dee Ashley MD - 12/26/2024 4:42 PM EDT Yes, I would like him to wait but I would need him to take the coumadin till then. Regards, Dee Ashley MD [facility]04-18-[facility] Telephone encounter Note* Telephone Encounter - Yaneth Dominguez MA - 12/26/2024 2:25 PM EDT Patient and states he would take whatever is recommended. However, he wanted PCP aware at the [facility] he was instructed to follow up with [facility] in regards to changing blood thinner all together. Patient has a [facility] appt 12/30/24. Dr. Ashley: Would you like to wait on Eliquis until [facility] appt? Please advise. (Pharmacy is [facility]). Yaneth Dominguez MA [facility]04-17-[facility] Telephone encounter Note* Telephone Encounter - Eduardo Bhardwaj RN - 12/25/2024 5:11 PM EDT Called and left a voicemail for the Patient to call back and ask for a nurse to receive the providers message. Eduardo Bhardwaj RN [facility]04-17-2025 Telephone encounter Note* Telephone Encounter - Dee Ashley MD - 12/25/2024 12:28 PM EDT Please ask patient if he would consider taking Eliquis? Regards, Dee Ashley MD [facility]04-16-2025 Telephone encounter Note* Telephone Encounter - Aminah Aranda LPN - 12/24/2024 2:20 PM EDT Last INR: INR (POCT) 1.5 12/24/2024 Current dose of coumadin is: 5mg 5 days a weekand 2.5mg 2 days a week. Last date of dose change: 12/18/2024. Previous INR (date and result): 1.6 Additional Clinical Information or narrative: no [facility]04-11-[facility]04-11-[facility] History of Present illness Narrative* Dee Ashley MD - 12/19/2024 10:16 AM EDT Images from the original note were not included. Yazan Nolasco is a 74 year old male here for a Medicare wellness visit. Medicare Health Risk Assessment General Health Good Exercise: Minutes/Day No Exercise: Days/Week No Alcohol: Daily Use No Alcohol: Drinks/Day NO Alcohol: 6 or more drinks No Feel off balance Yes Concerns: Teeth/Dentures No Concerns: Sexual function No Troubled by feelings No Frequency: Eating healthy diet Daily ADLs requiring help no Safety precautions in home/vehicle Yes Smoke, vape, chews tobacco yes Difficulty hearing No Difficulty seeing Yes Current Providers Specialists: I have reviewed specialist-related care of the patient in the medical record. Medical/Family history review Reviewed and updated problem list, medical/surgical/family/social history, medications, and allergies. Opioid use review Opioid Medications (last 90 days) No data to display Anxiety/Depression screening BISMARK-2 Score: 0 (Lower risk for anxiety) Recommendation: no further intervention at this time Cognitive screening Mini Cog Score: 5 Cognitive screening reviewed and No further action needed (score 3-5). Functional Observation Was the patient's Timed Up & Go test unsteady or >= 12 seconds? Yes Advance Care Planning Patient did not wish or was not able to name a surrogate decision maker or provide an advance care plan Measurements BP 128/76 Pulse 81 Temp 36.4 C (97.5 F) (Oral) Resp 16 Ht 174 cm (5' 8.5) Wt 113.9 kg (251 lb 3.2 oz) SpO2 97% BMI 37.63 kg/m Vision Screening: Follows with optometry/ophthalmology Assessment/Plan Medicare annual wellness visit, initial (Z) - Counseled on healthy diet and regular exercise - Fall avoidance information provided - Personalized prevention plan provided Reason for Visit HPI Yazan is a 74-year-old male with a complex medical history, presenting for a Medicare Annual Wellness Visit. Yazan has a history of HTN, DM with neuropathy and gastropathy, A-fib, CAD, SVT with an ICD in place, iron deficiency anemia, and cirrhosis. He is on Coumadin for A-fib and has been receiving iron infusions monthly. He also has a history of melanoma of the eye, with follow-up appointments every 5 years. He reports a recent hospitalization for significant blood loss, during which he received FFP and 2 units of RBCs. His hemoglobin was 6 g/dL a couple of months ago. He was also diagnosed with cirrhosis during this hospital visit. He quit drinking 5 years ago. Yazan was diagnosed with a UTI on September 12, which progressed to urosepsis. He underwent multipleprocedures to remove kidney stones, including the placement and removal of stents and laser lithotripsy. He reports improved urination since the procedures, with less nocturia. He has gained weight, currently weighing 251 lbs, up from 218 lbs. He reports feeling off balance and has had multiple falls, which he attributes to the infection. He denies current falls. He also reports congestion and difficulty breathing, with episodes of coughing up phlegm. He is on multiple medications, including Lantus 25 units, semaglutide, metoprolol, magnesium oxide,lovastatin, lisinopril, levothyroxine, gabapentin, iron supplements, Cymbalta, Wellbutrin, allopurinol, and Otezla for psoriatic arthritis. He inquires about switching from Coumadin to Eliquis due tobruising and dietary restrictions. He denies taking aspirin. He reports good adherence to his CPAP machine for sleep apnea. He has new dentures and denies issues with them. He has not had an eye exam recently but has an appointment scheduled. He denies exercise and continues to gain weight. He has not completed a living will or advance directives. Social History Tobacco Use Smoking status: Former Current packs/day: 0.00 Average packs/day: 1 pack/day for 40.0 years (40.0 ttl pk-yrs) Types: Cigarettes Start date: 03/26/1969 Quit date: 03/26/2009 Years since quittin.7 Smokeless tobacco: Never Vaping Use Vaping status: Never Used Substance Use Topics Alcohol use: Not Currently Comment: 1991 Drug use: Not Currently Past medical history, appointments, medications, allergies reviewed. Pertinent Lab/Diagnostic Studies are reviewed and discussed today Current Outpatient Medications: buPROPion XL (WELLBUTRIN XL) 150 mg 24 hr tablet amLODIPine (NORVASC) 5 mg tablet semaglutide (OZEMPIC) 1 mg/dose (4 mg/3 mL) pen insulin glargine (LANTUS SOLOSTAR U-100 INSULIN) 100 unit/mL (3 mL) warfarin (COUMADIN) 5 mg tablet metoprolol tartrate, short acting, (LOPRESSOR) 100 mg tablet allopurinol (ZYLOPRIM) 100 mg tablet DULoxetine (CYMBALTA) 60 mg capsule levothyroxine (SYNTHROID) 50 mcg tablet magnesium oxide (MAGOX) 400 mg (241.3 mg magnesium) tablet ferrous sulfate 325 mg (65 mg iron) tablet apremilast (OTEZLA) 30 mg tablet clobetasol (TEMOVATE) 0.05 % cream lisinopril (ZESTRIL, PRINIVIL) 40 mg tablet acetaminophen (TYLENOL) 500 mg tablet LILO PEN NEEDLE 32 gauge x ndle Blood Sugar Diagnostic, Drum (ACCU-CHEK COMPACT TEST) strp Lancets (ACCU-CHEK SOFTCLIX LANCETS) Misc lancets potassium chloride (KLOR-CON 10) 10 mEq tablet tamsulosin (FLOMAX) 0.4 mg lovastatin (MEVACOR) 20 mg tablet gabapentin (NEURONTIN) 600 mg tablet furosemide (LASIX) 20 mg tablet warfarin (COUMADIN) 2.5 mg tablet Health Maintenance Hepatitis B Vaccine(1 of 3 - Risk 3-dose series) Shingrix Vaccine(1 of 2) DTaP,Tdap,Td Vaccine(3 - Td or Tdap) Dilated Retinal Exam Advance Directive Discussion HbA1C@ Review Of Systems Constitutional: (+) weight gain Head: (no current complaints mentioned) Eyes: (no current complaints mentioned) Ears/Nose/Mouth/Throat: (+) congestion, (+) phlegm Neck: (no current complaints mentioned) Cardiovascular: (no current complaints mentioned) Respiratory: (+) cough, (+) difficulty breathing Gastrointestinal: (no current complaints mentioned) Genitourinary: (no current complaints mentioned) Musculoskeletal: (no current complaints mentioned) Skin: (+) itching Neurological: (+) imbalance Psychiatric: (+) abnormal dreams Endocrine: (no current complaints mentioned) Hematologic/Lymphatic: (no current complaints mentioned) Physical Exam BP 128/76 Pulse 81 Temp 36.4 C (97.5 F) (Oral) Resp 16 Ht 174 cm (5' 8.5) Wt 113.9 kg (251 lb 3.2 oz) SpO2 97% BMI 37.63 kg/m GENERAL: Face looks a little puffed up, alert and oriented. SKIN: Echymosis of the hands and the legs. HEAD: Normocephalic. EYES: PERRLA, EOMI, conjunctiva clear. OROPHARYNX: Lips, mucosa, and tongue normal, good dentition. No oral lesions noted. NECK: Supple, no lymphadenopathy, normal thyroid, no carotid bruits. LUNGS: Clear to auscultation bilaterally, no wheezes/rhonchi/rales. HEART: Regular rate and rhythm, no murmurs. No ectopy. EXTREMITIES: 3+ pitting edema NEURO: Awake, alert and oriented x3, cranial nerves II-XII grossly intact, normal gait, no involuntary motions. Labs: - (09/12) Urinalysis: Consistent with urinary tract infection - Hemoglobin: 6 g/dL Imaging: - Ultrasound: Presence of kidney stones Assessment and Plan 1. Chronic systolic heart failure (HCC) (I50.22) Patient presents with signs of fluid overload, including significant weight gain and edema. Lungs are clear on auscultation. - Ordered echocardiogram to assess cardiac function. - Ordered labs including pro-BNP and PT/INR. - Initiated Lasix 20 mg daily in the morning. 2. Psoriatic arthritis ([facility]) (L40.50) Patient is currently managed with Otezla. 3. Atrial fibrillation, persistent ([facility]) (I48.19) Currently on Coumadin for anticoagulation. INR levels have been variable. - Discussed potential switch to Eliquis with community administrator. - Patient to follow up with community administrator Dr. Laureano to discuss anticoagulation management. 4. Morbid obesity ([facility]) (E66.01) Patient has gained significant weight, currently at 251 lbs. - Encouraged patient to start with 5 minutes of exercise twice daily. 5. 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 Bryan. 6. Diabetic gastropathy ([facility]) (E11.69) Patient is on semaglutide and Lantus 25 units daily. - Monitor blood glucose levels and adjust Lantus dosage as needed. 7. Stage 3a chronic kidney disease ([facility]) (N18.31) Type 2 diabetes mellitus with stage 3a chronic kidney disease, with long-term current use of insulin ([facility]) (E11.22) Patient has a history of CKD stage 3a and is on insulin therapy. - Monitor renal function with upcoming labs. 8. Anemia, unspecified type (D64.9) Patient has a history of significant blood loss and is receiving monthly iron infusions. - Ordered hemoglobin levels to monitor response to iron therapy. 9. Other hypervolemia (E87.79) Signs of fluid overload observed, including edema and weight gain. - Initiated Lasix 20 mg daily in the morning. - Ordered echocardiogram and pro-BNP levels. 10. Weight gain (R63.5) Patient has gained significant weight, currently at 251 lbs. - Initiated Lasix 20 mg daily in the morning. - Encouraged patient to start with 5 minutes of exercise twice daily. 11. Fatigue, unspecified type (R53.83) Patient reports feeling off balance and fatigued. - Monitor for improvement with diuretic therapy. 12. Hypokalemia (E87.6) Patient is on potassium chloride supplementation. - Monitor potassium levels with upcoming labs. 13. Nocturia (R35.1) Patient reports improvement in nocturia following recent urological interventions. 14. Pure hypercholesterolemia (E78.00) Patient is on lovastatin therapy. - Continue lovastatin as prescribed. 15. Medicare annual wellness visit, subsequent (Z00.00) Completed Medicare annual wellness visit. - Discussed advance directives and provided paperwork. - Encouraged regular exercise and weight management. Voice recognition software was used to compose this office note. Please excuse any unintended typographical errors. The patient consented to the use of ambient [employer] software for draft documentation of the visit consistent with [facility] s Notice of Privacy Practices. Dee Ashley MD documented in this encounterPromedica Bay [facility]04-10-2025 Telephone encounter Note * Telephone Encounter - Shelia Charles MA - 12/18/2024 1:12 PM EDT Patient notified. [facility]04-10-2025 Miscellaneous Notes* Telephone Encounter - Shelia Charles MA - 12/18/2024 1:12 PM EDT Patient notified. * Telephone Encounter - Lino Bhandari APRN.CNP - 12/18/2024 10:05 AM EDT Increase to 5mg 5 days a week and 2.5mg 2 days a week. Recheck in 2 weeks. Recheck in 1 week if any med, supplement, or diet changes. Thank you Lino Bhandari APRN.CNP * Telephone Encounter - Shelia Charles MA - 12/17/2024 6:26 PM EDT Last INR: INR (POCT) 1.6 12/17/2024 Current dose of coumadin is: Taking 5 mg 4 days a week and 2.5 mg 3 days. Last date of dose change: 10/18/2024. Previous INR (date and result): 12/10/2024 Additional Clinical Information or narrative: no documented in this encounterPromedica Bay [facility] Hospital04-10-2025 Telephone encounter Note * Telephone Encounter - Lino Bhandari APRN.CNP - 12/18/2024 10:05 AM EDT Increase to 5mg 5 days a week and 2.5mg 2 days a week. Recheck in 2 weeks. Recheck in 1 week if any med, supplement, or diet changes. Thank you Lino Bhandari APRN.CNP [facility]04-09-2025 Telephone encounter Note* Telephone Encounter - Shelia Charles MA - 12/17/2024 6:26 PM EDT Last INR: INR (POCT) 1.6 12/17/2024 Current dose of coumadin is: Taking 5 mg 4 days a week and 2.5 mg 3 days. Last date of dose change: 10/18/2024. Previous INR (date and result): 12/10/2024 Additional Clinical Information or narrative: no [facility]04-03-2025 [facility]04-03-2025 History of Present illness Narrative* Rita Zuniga LPN - 12/11/2024 3:20 PM EDT Patient presents with: Imm/Inj Pt is identified by name and birthdate: Yes. Allergies and medications reviewed. Latex allergy? No. Does this patient have: Unplanned weight loss or gain of greater than 10 pounds, or a change of appetite over the last year? No Does the patient have any concerns about safety in the home/falls? Not at risk for falls Has the patient fallen in the past year? yes Does the patient have difficulty performing or completing routine daily living activities? No Does this patient have concerns about personal safety? No Is patient having pain? Pain: No=0 (pain 0 on a scale of 0-10). Health Maintenance: Reviewed and updated. Does patient have MyChart access or Caregiver proxy: yes Pt/Caregiver willingness and readiness to learn assessed: Yes. Barriers: none Cyanocobalmin injection administered, right Deltoid, tolerated well, no immediate adverse reactionsnoted. Rita Zuniga LPN documented in this encounterPromedica [facility]04-02-2025 Telephone encounter Note * Telephone Encounter - Shelia Charles MA - 12/10/2024 3:15 PM EDT Last INR: INR (POCT) 1.9 12/10/2024 Current dose of coumadin is: 5 mg on Mon, Tues, Thurs and Fri. 2.5 mg on Wed, Sat and Sun Last date of dose change: 10/18/2024. Previous INR (date and result): 11/19/2024 2.5 Additional Clinical Information or narrative: no Left message for return call for additional findings [facility]04-02-2025 Miscellaneous Notes* Telephone Encounter - Shelia Charles MA - 12/10/2024 3:15 PM EDT Last INR: INR (POCT) 1.9 12/10/2024 Current dose of coumadin is: 5 mg on Mon, Tues, Thurs and Fri. 2.5 mg on Wed, Sat and Sun Last date of dose change: 10/18/2024. Previous INR (date and result): 11/19/2024 2.5 Additional Clinical Information or narrative: no Left message for return call for additional findings documented in this encounterPromedica Bay [facility] Hospital03-25-2025 History of Present illness Narrative* Pauline Resendiz [facility] - 12/02/2024 4:19 PM EDT Images from the original note were not included. Pt chart reviewed as part of population health initiative focused on statin use in patients with diabetes (DM) or cardiovascular disease (CVD). Yazan Nolasco is identified through data from [employer] (insurer) as a potential candidate for statin therapy with no prescriptions claims processed for a statin medication in this calendar year. Chart Review The following case components were reviewed for current or historic statin use: Confirmed diabetes and or CVD: Yes Current/Active med list includes a statin: Yes; Lovastatin 20mg QOD IF YES, Last order date and quantity: 06/20/24, #90 + 3 refills Last pharmacy fill date: Per [employer]: n/a, Per pharmacy phone call: none Per [employer] - last filled 06/20/24: ALLERGIES No Known Allergies 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 Diabetes mellitus (HCC) Diarrhea Dual implantable cardioverter-defibrillator in situ Dyslipidemia Esophageal reflux Ex-smoker History of transfusion Hypothyroidism 11/21/2022 Mononeuritis of unspecified site Obesity, unspecified Other chronic nonalcoholic liver disease Personal history of colonic polyps 03/20/2005 hyperplastic polyps Unspecified essential hypertension Cholesterol, Total (mg/dL) Date Value 06/18/2024 147 02/01/2021 92 HDL Cholesterol (mg/dL) Date Value 06/18/2024 31 02/01/2021 20 LDL Cholesterol (mg/dL) Date Value 06/18/2024 88 02/01/2021 32 Triglyceride (mg/dL) Date Value 06/18/2024 141 02/01/2021 201 No reason identified, Patient contacted: No answer, left voicemail Outcome of review: Unable to reach patient, lvmx; attempt #1 Pending outreach to patient and Pending outreach to provider Sent message to [place] [facility] as patient may be lost to f/u. Follow-up needed from this call (I.e. labs ordered, consult to pharmacy) - Is patient using statin? No fill history since 06/2024. Pauline Resendiz, Pharm.D, [facility] Clinical Pharmacist documented in this encounterPromedica Bay Park [facility]03-25-2025 NotePrem[facility]03-21-2025 NotePremier Health03-21-2025 History of Present illness Narrative* Janee Garnett - 11/28/2024 11:18 AM EDT POPULATION HEALTH NAVIGATION OUTREACH Action/FYI Patient outreached for HCC; Diabetic eye exam. AWV scheduled for 01/02 Notes updated on appointment Reason for Outreach Care Gap/HCC or Scheduling Wellness Visits Care Gaps due: Diabetic Eye Exam Patient Contacted: Unable or unnecessary to reach patient: Angel message sent Navigation Signature: Janee Ruiz November 28, 2024 11:20 AM documented in this encounterPromedica Bay Park Hospital03-20-2025 NotePremier Health03-20-2025 History of Present illness Narrative* Lucy Dobson CPhT - 11/27/2024 12:08 PM EDT Patient is identified through a medication adherence outreach initiative based on pharmacy claims data from: [employer] Medication Adherence Category: Diabetes First Review Attribution Status: Correct Attribution Medication(s) Ozempic 1 mg Medication Status per portal/Epic Reconcile Dispense: Not filled - Outreach patient Medication Status per Profile Review: No issues per profile review Patient appropriate for outreach? Yes Patient identified by name and Outreach to patient: Left Voicemail/message for return call What was primary intervention? No intervention Outreach to patient: Sent/Responded to [facility]QU[facility]URE What was primary intervention? No intervention Lucy Dobson CPhT [facility] Pharmacy Team documented in this encounterPromedica Bay Park Hospital03-12-2025 Telephone encounter Note * Telephone Encounter - Aminah Aranda LPN - 11/19/2024 2:43 PM EDT Last INR: INR (POCT) 2.5 11/19/2024 Current dose of coumadin is: 5 mg on Sunday, Sunday, and Sunday and 2.5 mg on Sunday, Sunday and Sunday. Last date of dose change: 10/18/2024. Previous INR (date and result): 2.1 Additional Clinical Information or narrative: called and spoke to patient to verify how patient is taking medication. Aminah Aranda LPN November 19, 2024 3:06 PM [facility]03-12-2025 Miscellaneous Notes* Telephone Encounter - Aminah Aranda LPN - 11/19/2024 2:43 PM EDT Last INR: INR (POCT) 2.5 11/19/2024 Current dose of coumadin is: 5 mg on Sunday, Sunday, and Sunday and 2.5 mg on Sunday, Sunday and Sunday. Last date of dose change: 10/18/2024. Previous INR (date and result): 2.1 Additional Clinical Information or narrative: called and spoke to patient to verify how patient is taking medication. Aminah Aranda LPN November 19, 2024 3:06 PM documented in this encounterPromedica Bay Park Hospital03-06-2025 NotePrem[facility]03-06-2025 History of Present illness Narrative* Rita Zuniga LPN - 11/13/2024 3:09 PM EST Patient presents with: Imm/Inj Pt is identified by name and birthdate: Yes. Allergies and medications reviewed. Latex allergy? No. Does this patient have: Unplanned weight loss or gain of greater than 10 pounds, or a change of appetite over the last year? No Does the patient have any concerns about safety in the home/falls? Has the patient fallen in the past year? yes Does the patient have difficulty performing or completing routine daily living activities? No Does this patient have concerns about personal safety? No Is patient having pain? Pain: No=0 (pain 0 on a scale of 0-10). Health Maintenance: Reviewed and updated. Does patient have MyChart access or Caregiver proxy: yes Pt/Caregiver willingness and readiness to learn assessed: Yes. Barriers: none Cyanocobalamin injection administered, left Deltoid, tolerated well, no immediate adverse reactionsnoted. Rita Zuniga LPN documented in this encounterPromedica Bay Park Hospital03-03-2025 Telephone encounter Note * Telephone Encounter - Kathy Mark RN - 11/10/2024 8:10 AM EST Patient's Kiley calling in and states she in concerned Yazan may have a kidney issue, possiblykidney stone related. Reports pt had kidney issue earlier this month. Was seeing Dr. Erickson. No Urology F/U appts upcoming. Kiley reports patient is having painful urination, frequency, back pain and vomited several time over the weekend. Reports vomit was green in color. Pt is afraid to eat. expresses pt's reluctance in going to hospital. This triage nurse unable to speak with patient to give advise. states she will try to encourage him to allow her to take him to ER this morning. Kathy Mark RN [facility]03-03-2025 Miscellaneous Notes* Telephone Encounter - Kathy Mark RN - 11/10/2024 8:10 AM EST Patient's Kiley calling in and states she in concerned Yazan may have a kidney issue, possiblykidney stone related. Reports pt had kidney issue earlier this month. Was seeing Dr. Erickson. No Urology F/U appts upcoming. Kiley reports patient is having painful urination, frequency, back pain and vomited several time over the weekend. Reports vomit was green in color. Pt is afraid to eat. expresses pt's reluctance in going to hospital. This triage nurse unable to speak with patient to give advise. states she will try to encourage him to allow her to take him to ER this morning. Kathy Mark RN documented in this encounterPromedica Bay Park Hospital02-28-2025 Telephone encounter Note * Telephone Encounter - Yaneth Dominguez MA - 11/07/2024 12:48 PM EST Patient notified of results, verbalizes understanding of instructions. Yaneth Dominguez MA [facility]02-28-2025 Miscellaneous Notes* Telephone Encounter - Yaneth Dominguez MA - 11/07/2024 12:48 PM EST Patient notified of results, verbalizes understanding of instructions. Yaneth Dominguez MA * Telephone Encounter - Dee Ashley MD - 11/07/2024 12:23 PM EST Cont the same and recheck in 2 weeks Thanks Aminah, I reviewed Dr Wright note, when doctor Hazel reviewed and covered over the weekend ,patient never said inr should be a certain level prior to surgery prior to that, there was a gap incommunication from patient and surgeon to us, we came to know after the fact these requirements, without prior intimation. If there is an upcoming surgery then we will have to rearrange things Regards, Dee Ashley MD * Telephone Encounter - Aminah Aranda LPN - 11/06/2024 9:05 AM EST Last INR: INR (POCT) 2.1 11/05/2024 Current dose of coumadin is: 5mg on 10/18/24 and 10/19/24. Last date of dose change: 10/18/2024. Previous INR (date and result): 1 on 10/18/24 Additional Clinical Information or narrative: no See telephone note from 10/18/[address] Oliva. Aminah Aranda LPN November 06, 2024 9:10 AM documented in this encounterPromedica Bay Park Hospital02-28-2025 Telephone encounter Note * Telephone Encounter - Dee Ashley MD - 11/07/2024 12:23 PM EST Cont the same and recheck in 2 weeks Thanks Aminah, I reviewed Dr Olivas note, when doctor Oliva reviewed and covered over the weekend ,patient never said inr should be a certain level prior to surgery prior to that, there was a gap incommunication from patient and surgeon to us, we came to know after the fact these requirements, without prior intimation. If there is an upcoming surgery then we will have to rearrange things Regards, Dee Ashley MD [facility]02-27-2025 Telephone encounter Note* Telephone Encounter - Aminah Aranda LPN - 11/06/2024 9:05 AM EST Last INR: INR (POCT) 2.1 11/05/2024 Current dose of coumadin is: 5mg on 10/18/24 and 10/19/24. Last date of dose change: 10/18/2024. Previous INR (date and result): 1 on 10/18/24 Additional Clinical Information or narrative: no See telephone note from 10/18/[address] Oliva. Aminah Aranda LPN November 06, 2024 9:10 AM [facility]02-21-2025 Telephone encounter Note* Telephone Encounter - Shelia Charles MA - 10/31/2024 11:10 AM EST Patient requesting handicap placard for spouse. Spouse Kiley having trouble getting patient inand out of car, walking long distance. Please advise. [facility]02-21-2025 Miscellaneous Notes* Telephone Encounter - Shelia Charles MA - 10/31/2024 11:10 AM EST Patient requesting handicap placard for spouse. Spouse Kiley having trouble getting patient inand out of car, walking long distance. Please advise. documented in this encounterPromedica Bay Park Hospital02-14-2025 NotePremier Health02-14-2025 History of Present illness Narrative* Angella Kelly - 10/24/2024 12:19 PM EST Yazan Nolasco is identified through a medication adherence outreach initiative based on pharmacy claims data from [employer] (insurer) for Statin medication(s). Patient is reviewed 10/24/24 due to medication adherence concerns with the following medications (name, strength, sig): Lovastatin 20mg 1 tab every other day . Per data/report, last fill date and days supply: Lovastatin due 09/17/24 Per reconcile dispense, last fill date and days supply: Lovastatin 06/20/24 for 90 ds Per call to pharmacy, last picked up date and days supply: n/a Contacted patient: No answer; left generic Angel MCCONNELL Outcome of review/outreach: (choose outcome source and status) - Called pt [facility], Sent Angel Kelly Wound Care Physician documented in this encounterPromedica Bay Park Hospital02-12-2025 Telephone encounter Note * Telephone Encounter - Tania Calabrese RN - 10/22/2024 3:35 PM EST Scheduled for hospital follow up. Patient reports medication is the same and he prefers not to change it as it elevated his liver enzymes previously but would have an appt with Dr. Ashley. Tania Calabrese RN [facility]02-12-2025 Miscellaneous Notes* Telephone Encounter - Tania Calabrese RN - 10/22/2024 3:35 PM EST Scheduled for hospital follow up. Patient reports medication is the same and he prefers not to change it as it elevated his liver enzymes previously but would have an appt with Dr. Ashley. Tania Calabrese RN * Telephone Encounter - Lino Bhandari APRN.CNP - 10/22/2024 10:32 AM EST Patient needs a hospital follow up as this may have been changed at recent hospitalization any way Thank you Lino Bhandari APRN.CNP * Telephone Encounter - Tania Calabrese RN - 10/22/2024 9:53 AM EST Janee Clinical Pharmacist with [employer] calls to let provider know they would recommend a higher dose of statin d/t patients cardiovascular disease and risk for heart attack or stroke. Recommending rosuvastatin or atorvastatin at 20 mg daily and eventually advancing to 40 mg daily. Patient currently taking lovastatin 20 mg every other day. Janee reports that for any questions pharmacist can be reached at . Tania Calabrese RN documented in this encounterPromedica Bay Park Hospital02-12-2025 Telephone encounter Note * Telephone Encounter - Lino Bhandari APRN.CNP - 10/22/2024 10:32 AM EST Patient needs a hospital follow up as this may have been changed at recent hospitalization any way Thank you Lino Bhandari APRN.[employer] [facility]02-12-2025 Telephone encounter Note* Telephone Encounter - Tania Calabrese RN - 10/22/2024 9:53 AM EST Janee Clinical Pharmacist with [employer] calls to let provider know they would recommend a higher dose of statin d/t patients cardiovascular disease and risk for heart attack or stroke. Recommending rosuvastatin or atorvastatin at 20 mg daily and eventually advancing to 40 mg daily. Patient currently taking lovastatin 20 mg every other day. Janee reports that for any questions pharmacist can be reached at . Tania Calabrese RN [facility]02-10-2025 Telephone encounter Note* Telephone Encounter - Roge Oliva MD - 10/20/2024 8:29 AM EST Agree. [facility] Work Phone: [phone]) 851-539802-10-2025 Miscellaneous Notes* Telephone Encounter - Roge Oliva MD - 10/20/2024 8:29 AM EST Agree. * Telephone Encounter - Cheryle Degroot LPN - 10/18/2024 11:46 AM EST Spoke with Dr. Oliva and he asked that patient take 5 mg of warfarin today 10/18/24 and 10/19/24. Recheck INR Sunday10/20/24. PATIENT NOTIFIED OF SAME. He also mentioned that maybe instead of keeping patient on warfarin prior to surgery to bridge him with lovenox. * Telephone Encounter - Cheryle Degroot LPN - 10/18/2024 11:17 AM EST Last INR: INR (POCT) 1.0(EXT) 10/18/2024 Current dose of coumadin is: states that Yazan has been taking 2.5 mg daily since 10/16/24. Last date of dose change: 10/16/24. Previous INR (date and result): 10/16/24 0.9 states INR goal is 1.5-3.0. Additional Clinical Information or narrative: mentioned that she is going to have Yazan resumeprevious dose. Last previous dose found was of 2.5 mg Sun, Sun, and Sunday; 4 mg all other days. She mentioned that surgery was postponed due to INR level. Will call surgeon's office on Sunday to reschedule. Prior to rescheduled date will have to hold warfarin 5 days prior. documented in this encounterPromedica Bay Park Hospital02-08-2025 Telephone encounter Note * Telephone Encounter - Cheryle Degroot LPN - 10/18/2024 11:46 AM EST Spoke with Dr. Oliva and he asked that patient take 5 mg of warfarin today 10/18/24 and 10/19/24. Recheck INR Sunday10/20/24. PATIENT NOTIFIED OF SAME. He also mentioned that maybe instead of keeping patient on warfarin prior to surgery to bridge him with lovenox. [facility]02-08-2025 Telephone encounter Note* Telephone Encounter - Cheryle Degroot LPN - 10/18/2024 11:17 AM EST Last INR: INR (POCT) 1.0(EXT) 10/18/2024 Current dose of coumadin is: states that Yazan has been taking 2.5 mg daily since 10/16/24. Last date of dose change: 10/16/24. Previous INR (date and result): 10/16/24 0.9 states INR goal is 1.5-3.0. Additional Clinical Information or narrative: mentioned that she is going to have Yazan resumeprevious dose. Last previous dose found was of 2.5 mg Sun, Sun, and Sunday; 4 mg all other days. She mentioned that surgery was postponed due to INR level. Will call surgeon's office on Sunday to reschedule. Prior to rescheduled date will have to hold warfarin 5 days prior. [facility]02-07-2025 Telephone encounter Note* Telephone Encounter - Yaneth Dominguez MA - 10/17/2024 5:13 PM EST See TE (FYI-No action needed) 10/17/24. Yaneth Dominguez MA [facility]02-07-2025 Miscellaneous Notes* Telephone Encounter - Yaneth Dominguez MA - 10/17/2024 5:13 PM EST See TE (FYI-No action needed) 10/17/24. Yaneth Dominguez MA * Telephone Encounter - Tania Calabrese RN - 10/16/2024 3:44 PM EST Spouse returns call and reports that patient is taking Warfarin 5 mg 1/2 tablet for dose of 2.5 mg yesterday and today. Tania Calabrese RN * Telephone Encounter - Shelia Charles MA - 10/16/2024 12:53 PM EST Last INR: INR (POCT) 0.9 10/16/24 Current dose of coumadin is: changed to take 1/2 dose yesterday. Called to verify dose but did not get an answer. Last date of dose change: 10/15/24. Previous INR (date and result): 2.8 10/09/24 Additional Clinical Information or narrative: yes: Pt currently on AIB * Telephone Encounter - Dee Ashley MD - 10/16/2024 10:18 AM EST Report to us if the INR Is less than 1.5 or more than 3 We need to keep a close check on this. Dee Larson MD * Telephone Encounter - Shelia Charles MA - 10/15/2024 4:48 PM EST Kiley notified to take half dose coumadin daily and will check INR daily * Telephone Encounter - Dee Ashley MD - 10/15/2024 4:37 PM EST I would ask that he cut down the dose of his warfarin to half and take the cipro for the 3 days. Does he have an inr machine at home that he can check his inr daily, Dee Larson MD * Telephone Encounter - Katlyn Nielsen RN - 10/15/2024 12:57 PM EST Pt's Kiley calling in and states that pt just got our of the hospital on Sunday. He had a UTI and a kidney stone. While in the hospital, Dr. Erickson placed a stent in his ureter in hopes that pt would pass the stone. If pt doesn't pass the stone, pt is scheduled for another procedure on Sunday where they will zap the stone and replace the stent. states pt was prescribed Ciprofloxacin to take upon discharge from the hospital. states that [facility] pharmacy in [place] would not fillthe prescription for the Ciprofloxacin because it will interfere with pt's Warfarin and possibly some of pt's other medications. states that the pharmacist had called Dr. Erickson's office to check on the interaction but has not gotten a call back so today they filled the Ciprofloxacin. is scared to give him the antibiotic since it may interfere with some of his medications. She states she tried to call Dr. Erickson's office as well but they are out to lunch. She is concerned because she doesn't want pt's procedure to be cancelled on Sunday because he hasn't taken this antibiotic. It is6 tablets total and supposed to take it 2 times per day so 3 days worth. is instructed to contact Dr. Erickson's office as pt won't have med completed prior to Sunday. She also needs to see what he has to say about taking the antibiotic with some of his other medications. In the meantime, is wondering if Dr. Ashley could tell her if it is okay to start the antibiotic and should he stop his Coumadin for the 3 days that he is taking the antibiotic.And are there any other medications on his med list that he should stop due to taking the antibiotic? documented in this encounterPromedica Bay Park Hospital02-07-2025 Telephone encounter Note * Telephone Encounter - Yaneth Dominguez MA - 10/17/2024 5:10 PM EST Spouse advised patient checked this morning will check tomorrow. Spouse confirmed will restart patient back on dose 2.5 mg tomorrow for 2 days then 5 mg daily. Yaneth Dominguez MA [facility]02-07-2025 Miscellaneous Notes* Telephone Encounter - Yaneth Dominguez MA - 10/17/2024 5:10 PM EST Spouse advised patient checked this morning will check tomorrow. Spouse confirmed will restart patient back on dose 2.5 mg tomorrow for 2 days then 5 mg daily. Yaneth Dominguez MA * Telephone Encounter - Dee Ashley MD - 10/17/2024 5:06 PM EST Please make sure he does the inr today too. Regards, Dee Ashley MD * Telephone Encounter - Kathrine Martinez RN - 10/17/2024 11:38 AM EST spouse is calling in stating that patients surgery was cancelled for today due to inr was 1.9 and surgeon wants it lower. They will be rescheduling for a later date to be determined. documented in this encounterPromedica Bay Park Hospital02-07-2025 Telephone encounter Note * Telephone Encounter - Dee Ashley MD - 10/17/2024 5:06 PM EST Please make sure he does the inr today too. Regards, Dee Ashley MD [facility]02-07-2025 Telephone encounter Note* Telephone Encounter - Kathrine Martinez RN - 10/17/2024 11:38 AM EST spouse is calling in stating that patients surgery was cancelled for today due to inr was 1.9 and surgeon wants it lower. They will be rescheduling for a later date to be determined. [facility]02-06-2025 Telephone encounter Note* Telephone Encounter - Eduardo Bhardwaj RN - 10/16/2024 5:22 PM EST Pts called and is notified of providers results and instructions. Pt voices understanding. Eduardo Bhardwaj RN [facility]02-06-2025 Miscellaneous Notes* Telephone Encounter - Eduardo Bhardwaj RN - 10/16/2024 5:22 PM EST Pts called and is notified of providers results and instructions. Pt voices understanding. Eduardo Bhardwaj RN * Telephone Encounter - Dee Ashley MD - 10/16/2024 5:08 PM EST Please as him to resume his regular dose of coumadin from tomorrow and continue daily inr for the next 3 days Marsha, Dee Ashley MD * Telephone Encounter - Tania Calabrese RN - 10/16/2024 3:42 PM EST See telephone encounter from yesterday 10/15/2024. Tania Calabrese RN * Telephone Encounter - Geovanna Oliver LPN - 10/16/2024 2:23 PM EST Left a message for pt to call the office for clinical information and coumadin dosing Geovanna Oliver LPN Received a call from Deyanira with INR Dept of [facility]. PH: [phone] Last INR: INR (POCT) 0.9 10/16/2024 Current dose of coumadin is: Pt to call back. Last date of dose change: unknown. Previous INR (date and result): 09/24/24 3 Additional Clinical Information or narrative:left a message for pt to call back. Geovanna Oliver LPN documented in this encounterPromedica Bay Park Hospital02-06-2025 Telephone encounter Note * Telephone Encounter - Dee Ashley MD - 10/16/2024 5:08 PM EST Please as him to resume his regular dose of coumadin from tomorrow and continue daily inr for the next 3 days Dee Larson MD [facility]02-06-2025 Telephone encounter Note* Telephone Encounter - Tania Calabrese RN - 10/16/2024 3:44 PM EST Spouse returns call and reports that patient is taking Warfarin 5 mg 1/2 tablet for dose of 2.5 mg yesterday and today. Tania Calabrese RN [facility]02-06-2025 Telephone encounter Note* Telephone Encounter - Tania Calabrese RN - 10/16/2024 3:42 PM EST See telephone encounter from yesterday 10/15/2024. Tania Calabrese RN [facility]02-06-2025 Telephone encounter Note* Telephone Encounter - Geovanna Oliver LPN - 10/16/2024 2:23 PM EST Left a message for pt to call the office for clinical information and coumadin dosing Geovanna Oliver LPN Received a call from Deyanira with INR Dept of [facility]. PH: [phone] Last INR: INR (POCT) 0.9 10/16/2024 Current dose of coumadin is: Pt to call back. Last date of dose change: unknown. Previous INR (date and result): 09/24/24 3 Additional Clinical Information or narrative:left a message for pt to call back. Geovanna Oliver LPN [facility]02-06-2025 NotePremier Health02-06-2025 History of Present illness Narrative* Rita Zuniga LPN - 10/16/2024 1:24 PM EST cyanocobalamin injection administered, left arm, tolerated well, no immediate adverse reactions noted. See office notes Rita Zuniga LPN documented in this encounterPromedica Bay Park Hospital02-06-2025 NotePrem[facility] Health02-06-2025 History of Present illness Narrative* Nabila Gleason - 10/16/2024 1:15 PM EST Yazan Nolasco 1950 10/16/2024 HPI: Yazan Nolasco is a 73 year old male who presents here today for follow up ZORAIDA. H/o hypertension, diabetes mellitus and on warfarin for dual pacemaker and defibrillator. Former patient of Dr. Floyd, referred back to Hematology by his morning news producer. He has hx of severe anemia in after cholecystectomy 2020. He received fresh frozen plasma and also 2 units of blood after surgery for hemoglobin of 7.0. He had unexplained weight loss prior to this year. Although he denied any rectal bleeding or black tarry stool. During the time of surgery, he wastold by his surgeon that he has cirrhosis. He has a history of fatty liver disease, and he had quitdrinking alcohol over 5 years ago. He has no history of viral hepatitis. He complained of increased fatigue and dyspnea on exertion in July, and a CBC revealed a hemoglobin of 6.7. His platelet counts were previously between 130,000 - 95,000. His iron study was consistent with iron deficiency anemia and his vitamin B12 level of 224 was borderline low. His stool was Hemoccult negative. He had EGD and colonoscopy previously and they were normal. He also had a capsule endoscopy study 3 years ago. He was given iron sucrose 200mg IV x 5. His anemia improved, but he still has symptoms of fatigue and shortness of breath with exertion. He denied dizziness or lightheadedness. No change in bowel habits. He bruises easily because of warfarin and thrombocytopenia. Overall his CBC remains stable over the last 2 years. He believes last colonoscopy 2004 - denies issues reports he was due back in 10 years. Started Otelza in April which has helped significantly. However not much of an appetite since starting medications. Mr. Nolasco presents back to Hematology for evaluation of ZORAIDA. He reports that over the last several years his energy has been low. No recent illnesses, or infections. Denies recent hospitalizations or surgeries. Ozempic titrated all the way dose reduced recently by PCP. He denies SOB, CP, palpitations. Interval hx: Recent admission to [facility] for UTI/kidney stone currently on abx. Some debility from hospitalization. He is starting PT/OT next week. He denies any current symptoms. Denies fevers. Pt. received 5 doses of iron sucrose ending 01/25/24. Has been receiving Vit B12. Denies new aches or pains. No SOB, CP, or palpitations. No LOZANO, dizziness, or changes in vision. Denies N/V/C/D. No changes in bowel or bladder habits. No rash or skin changes. Denies bleeding or bruising. Remains on coumadin. (Currently on hold for lithotripsy tomorrow) The ROS is otherwise negative. Past medical history, appointments, medications, allergies reviewed. No changes. EXAM: BP 104/70 Pulse 72 Temp 36.2 C (97.1 F) (Temporal) Wt 103 kg (227 lb) SpO2 99% BMI 34.01 kg/m APPEARANCE Well appearing, alert, in no acute distress, well-hydrated, well nourished. HEART RRR with normal S1 and S2, no murmurs LUNG clear to auscultation ABDOMEN bowel sounds normoactive, soft, non-tender, non-distended, without organomegaly or palpablemasses EXTREMITIES No edema RLE, LLE swelling NEURO Awake, alert and oriented x 3, Normal gait, and No involuntary motions. SKIN Skin color, texture, turgor normal, no suspicious rashes or lesions LABS: Latest Reference Range & Units 03/17/24 15:14 06/18/24 08:59 07/29/24 11:54 WBC 3.70 - 11.00 k/uL 6.32 4.50 6.14 RBC 4.20 - 6.00 m/uL 4.21 4.34 4.61 Hemoglobin 13.0 - 17.0 g/dL 11.4 (L) 12.0 (L) 12.7 (L) Hematocrit 39.0 - 51.0 % 35.3 (L) 37.1 (L) 39.7 Platelet Count 150 - 400 k/uL 141 (L) 112 (L) 146 (L) MCV 80.0 - 100.0 fL 83.8 85.5 86.1 MCH 26.0 - 34.0 pg 27.1 27.6 27.5 MCHC 30.5 - 36.0 g/dL 32.3 32.3 32.0 MPV 9.0 - 12.7 fL 9.6 10.8 12.0 RDW-CV 11.5 - 15.0 % 15.1 (H) 15.8 (H) 16.0 (H) (L): Data is abnormally low (H): Data is abnormally high Latest Reference Range & Units 12/26/23 12:40 03/17/24 15:14 06/18/24 08:59 Ferritin 30.3 - 565.7 ng/mL 41.9 131.0 42.5 Iron 41 - 186 ug/dL 31 (L) 32 (L) 39 (L) TIBC 232 - 386 ug/dL 239 211 (L) 308 Transferrin Saturation 15.0 - 57.0 % 13.0 (L) 15.2 12.7 (L) (L): Data is abnormally low ASSESSMENT/PLAN: 1. Iron deficiency anemia, unspecified iron deficiency anemia type - ICD9: 280.9, ICD10: D50.9 (primary diagnosis) 2. Stage 3a chronic kidney disease (HCC) - ICD9: 585.3, ICD10: N18.31 3. B12 deficiency - ICD9: 266.2, ICD10: E53.8 Stage 3a, chronic kidney disease -Anemia improved with IV iron infusion; and fecal occult was negative .Will plan for IV iron sucrose x5 due to count with CKD. -Moderate thrombocytopenia without excessive bleeding, with occasional bruising on warfarin. - US with chronic liver disease/cirrhosis. Splenomegaly. Inactive gastritis. -Reviewed cbc and recent iron studies pending today. Plts are stable. No bleeding. -May consider starting erythropoietin injections for treatment of anemia of chronic disease secondary to chronic renal failure, however not indicated at this time as hgb is stable and remains >10. - B12 low - on weekly IM due to concern for lack of absorption. Continue at this time. - may move out to Q2 months pending labs today - Continue follow up with PCP/Cards. - IV iron sucrose 200mg x5 - CBC/iron studies/B12/MMA in about 12 weeks. - OV with labs in 6 months. - Pt. aware to call office with any questions/concerns. Nabila Gleason APRN.JOB FOREMAN I spent a total of 30 minutes on the date of the service which included preparing to see the patient, [id number] patient care, completing clinical documentation, obtaining and/or reviewing separately obtained history, and counseling and educating the patient/family/caregiver. Portions of this note including HPI, ROS, impression/plan may have been copied forward as to provide important historical information essential in contributing to medical decision making. Documentation has been reviewed and edited as necessary to support clinical decision making for today's visit and to reflect my own independent evaluation of this patient. documented in this encounterProm[facility] Telephone encounter Note * Telephone Encounter - Shelia Charles MA - 10/16/2024 12:53 PM EST Last INR: INR (POCT) 0.9 10/16/24 Current dose of coumadin is: changed to take 1/2 dose yesterday. Called to verify dose but did not get an answer. Last date of dose change: 10/15/24. Previous INR (date and result): 2.8 10/09/24 Additional Clinical Information or narrative: yes: Pt currently on AIB [facility]02-06[facility] History of Present illness Narrative* Kennedi Jose RN - 10/16/2024 10:42 AM EST Transition Care Management (TCM) Initial Outreach PCP Update / Actionable Items HRTIC TCM Home Visit Referral Source of Stratification: TCM HUB Hospital Admission Status: Discharged Readmission Risk Score: n/a Patient's zip code: [address] Is zip code within program service area: No Patient meets program referral criteria: No Patient does not qualify for High Risk TCM Home Visit program due to: Patient's zip code is not located within program service area Readmission Risk Score does not meet criteria Disposition: Patient does not qualify for HRTIC, will provide TCM outreach follow-up for 30-days Patient Source: [id number] (OON) Discharge Outreach Summary: Spoke with pt and spouse Kiley. He denies any issues with urination. Denies chest pain , palpitations. Is scheduled for kidney stone removal at [place] tomorrow . States will check INR today Discussed message from PCP this AM: Report to us if the INR Is less than 1.5 or more than 3 We need to keep a close check on this. Regards, Dee Ashley MD Spouse Kiley verbalizes understanding. Patient discharged from [place] [facility]. Discharge date: 10/13/24 Admitted for: A-fib / UTI Readmission Risk: n/a Value-Based Contract: Romaine SORTO Contact: Contact made with patient: Yes Hi, my name is Kennedi Jose RN and I am calling from the [facility] on behalf of your Primary Care Provider, Dee Ashley MD. I understand you were recently in the hospital, so I am calling to check in with you to ensure you are feeling well now that you are home. May I ask you a few questions related to your hospital stay and well-being? Yes Spoke to: Patient and spouse Validation: Validated the person spoken to is actively involved in the patient's care. The patient was identified by Name and Date of . Symptoms: Are you feeling about the same, better or worse since leaving the hospital? Better Medications: Do you have any questions about taking your medications, including which medications you should be on, or do you need refills on your medications? No Medication Review: Partial mediation review completed, per patient preference Discharge Instructions: Your Discharge Instructions / After Visit Summary (AVS) are important in guiding you through the recovery process. Do you have any questions related to your discharge instructions? No Home Care: Were you discharged with home care? No Equipment: Do you have all the necessary equipment and supplies needed at your home? Not applicable Social: Your mental health is as important to us as your physical health. Would you mind answering a few questions on this topic? Yes On the Storyboard review: Food Insecurity, Transportation, Depression, Housing, and Financial Strain: Complete any SDOHs, listed above, if not addressed in the past 3 months. If all SDOHs, listed above, have been addressed within the last 3 months, confirm responses and update any SDOHs that have changed. Action Taken: No needs verbalized. No action required. Follow-Up Appointment: [Appointment / TCM Follow-up within 14 days] I would like to help you schedule a hospital follow-up virtual or telephone visit with your PCP. This is a great way for you to connect with your provider to ensure you have safely transitioned home.If you are agreeable, I will send your request to a vocational auto body instructor who will contact and assist you with that appointment. This will give you an opportunity to ask any questions or address any concerns youmay have with your PCP. Inform the patient that if they have any questions or concerns prior to that appointment, to call their PCP's office right away. Appointment Action: Pt reports scheduled for kidney stone removal tomorrow at [facility]. Education details: Patient and family educated on issues/questions related to reason for admission,transition of care topics, and follow-up needed upon discharge. Kennedi Jose RN October 16, 2024 10:45 AM documented in this encounterPromed[facility]02-06-[facility] Telephone encounter Note * Telephone Encounter - Dee Ashley MD - 10/16/2024 10:18 AM EST Report to us if the INR Is less than 1.5 or more than 3 We need to keep a close check on this. RegardsDee MD [facility]02-05-[facility] Telephone encounter Note* Telephone Encounter - Shelia Charles MA - 10/15/2024 4:48 PM EST Kiley notified to take half dose coumadin daily and will check INR daily [facility]02-05-[facility] Telephone encounter Note* Telephone Encounter - Dee Ashley MD - 10/15/2024 4:37 PM EST I would ask that he cut down the dose of his warfarin to half and take the cipro for the 3 days. Does he have an inr machine at home that he can check his inr daily, Regards, Dee Ashley MD [facility]02-05-[facility] Telephone encounter Note* Telephone Encounter - Katlyn Nielsen RN - 10/15/2024 12:57 PM EST Pt's Kiley calling in and states that pt just got our of the hospital on Sunday. He had a UTI and a kidney stone. While in the hospital, Dr. Erickson placed a stent in his ureter in hopes that pt would pass the stone. If pt doesn't pass the stone, pt is scheduled for another procedure on Sunday where they will zap the stone and replace the stent. states pt was prescribed Ciprofloxacin to take upon discharge from the hospital. states that [facility] pharmacy in [place] would not fillthe prescription for the Ciprofloxacin because it will interfere with pt's Warfarin and possibly some of pt's other medications. states that the pharmacist had called Dr. Erickson's office to check on the interaction but has not gotten a call back so today they filled the Ciprofloxacin. is scared to give him the antibiotic since it may interfere with some of his medications. She states she tried to call Dr. Erickson's office as well but they are out to lunch. She is concerned because she doesn't want pt's procedure to be cancelled on Sunday because he hasn't taken this antibiotic. It is6 tablets total and supposed to take it 2 times per day so 3 days worth. is instructed to contact Dr. Erickson's office as pt won't have med completed prior to Sunday. She also needs to see what he has to say about taking the antibiotic with some of his other medications. In the meantime, is wondering if Dr. Ashley could tell her if it is okay to start the antibiotic and should he stop his Coumadin for the 3 days that he is taking the antibiotic.And are there any other medications on his med list that he should stop due to taking the antibiotic? [facility] Telephone encounter Note* Telephone Encounter - Delia Berry - 10/15/2024 10:22 AM EST Uploaded faxed signed device form into scanned documents and EP shared drive. Delia IC [id number] [facility]02-05-2025 Miscellaneous Notes* Telephone Encounter - Delia Bustos - 10/15/2024 10:22 AM EST Uploaded faxed signed device form into scanned documents and EP shared drive. Delia IC [id number] documented in this encounterPromedica [facility]02-03-2025 Telephone encounter Note * Telephone Encounter - Yaneth Bates RN - 10/13/2024 3:42 PM EST Called patient per MD request, no answer, left message. Per Dr Chavis: I think he got admitted to [place], not sure if they noticed he's in AF. Can you see if he's still in there? He may need DCCV. Yaneth Bates RN [facility]02-03-2025 Miscellaneous Notes* Telephone Encounter - Yaneth Bates RN - 10/13/2024 3:42 PM EST Called patient per MD request, no answer, left message. Per Dr Chavis: I think he got admitted to [place], not sure if they noticed he's in AF. Can you see if he's still in there? He may need DCCV. Yaneth Bates RN documented in this encounterPromedica Bay [facility]02-03-2025 [facility] Medical Records Department [address] [place] [address] Discharge Summary 10/13/24 1252 MR#: [id number] Acct: [id number] Name: YAZAN NOLASCO Rep #: [id number] : 1950 74 From: Sd Chatman MD PCP: Dr. Dee Ashley MD Status:ADM IN Location: [place] [address] Providers Date of Admission: 10/09/24 Date of Discharge: 10/13/24 Primary Care Physician: Dr. Dee Ashley MD Consultations 10/10/24 15:52 Consult: Urology Routine Consulting Provider: Jose Armando Erickson Reason for Consult: Suspicion of distal left ureteric stone EMERGENT Consult: No MD Notified: Yes Date Notified: 10/10/24 Time Notified: 15:52 Method of Notification: Text Reason For Visit: UTI,ADULT FAILURE TO THRIVE Diagnosis Discharge Diagnosis (1) Weakness: Status: Acute Code(s): R53.1 - Weakness (2) Acute UTI: Status: Acute Code(s): N39.0 - Urinary tract infection, site not specified (3) Atrial fibrillation, chronic: Status: Chronic Code(s): I48.20 - Chronic atrial fibrillation, unspecified Plan Patient is a 74-year-old male who presented [facility] ED on 10/09/2024 with worsening fatigue with weakness and falls. Patient also has weight loss for several weeks to months. Patient stated he cannot dress himself. 1. Acute on chronic debility with falls, exact etiology unclear, concern for UTI ??? [facility]case management consulted. 2/3 : Patient did well with the physical therapy and walked today. Therefore discharged home with home PT 2. Suspected acute cystitis Patient denies acute urinary tract symptoms including burning micturition. Has chronic irritative and obstructive symptoms due to BPH. Urine culture shows GNR lactose calender inspector 80,000???100,000 colonies. UA WBC casts 0-5 cells, bacteria 4+, WBC 25-50 cell, LE 500. Nitrite positive. On IV ceftriaxone. Renal ultrasound shows questionable 1 x 0.5 x 0.3 cm calculus distal left ureter but patient does not have abdominal pain. 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 10/11: CT abdomen/pelvis reviewed. Shows obstructing left UVJ stone, 7 mm with no evidence of hydroureter or hydronephrosis. Superior pole hypodense mass in left kidney measuring 4.3 cm. Left kidney superior pole???reported hypodense mass 4.3 cm which corresponds to 4.2 cm cyst with septation as reported in ultrasound. Urologist consult reviewed and appreciated. Plan for cystoscopy tomorrow. 10/12: Patient had cystoscopy and left retrograde stent inserted today. Tolerated the procedure well. Continue IV antibiotic. Plan to treat the stone as an outpatient with laser lithotripsy. 10/[address] Erickson. Discontinue Kang catheter. If portion voids spontaneously then good otherwise repeat Kang catheter and discharged home with Kang catheter and follow-up in the office. Patient discharged on Cipro 500 mg twice daily. His INR is subtherapeutic, 1.3 but with Cipro expected to increase INR. Follow-up INR in 2 days with PCP and adjust the dose of warfarin accordingly. 3. Chronic A-fib on warfarin, hypertension, hyperlipidemia ??? INR subtherapeutic at 1.5 on admit. Gave dose of therapeutic Lovenox and will continue warfarin at home dosing 10/10: INR 1.9. Follow-up a.m. INR. Mildly hypertensive in the ED to 130s to 140s systolic. Will continue home Lopressor and amlodipine but hold home lisinopril and hydrochlorothiazide for now, can restart as needed. Continue home statin. 10/11: INR pending. Hold warfarin for tonight for procedure tomorrow. 10/12 INR 1.6. Warfarin resumed. 10/13: As mentioned above. Chronic medical conditions: ??? Class I obesity: BMI 32 on admit. Complicates hospital course, care and prognosis. ??? Type 2 diabetes mellitus with neuropathy: Will treat with reduced dose of Lantus 15 units at night and sliding scale insulin with meals, adjust as needed. Continue home gabapentin. ??? History of gout: Continue home allopurinol. ??? Arthritis: Continue home apremilast. ??? Depression/anxiety: Continue home bupropion and duloxetine. ??? BPH with obstructive symptoms: Continue home Flomax. ??? S/p pacemaker with ICD placement DVT prophylaxis: Not indicated, on warfarin CODE STATUS: Full code, verified Discharge medication reconciliation done. Discharge follow-up instructions completed. Discharge process discussed with the patient and all questions were answered to patient's satisfaction. Follow with PCP in 1 to 2 weeks Total time spent, exact 35 minutes on discharge meds reconciliation, examination, coordination of care with nurses and ancillary staff, review of imaging and blood test and discussion with the patient on follow-up instructions. Medications at [facility] (more content not included)...[facility] 10-09-2024 [facility]01-30-2025 History of Present illness Narrative* Lino Bhandari APRN.JOB FOREMAN - 10/09/2024 1:13 PM EST CC: Patient presents with: Recheck: 6 week follow up HPI Yazan Nolasco is a 74 year old male who presents today for 6 week follow up. After reviewing the chart, found he has been ill for the past 3 months and has had multiple visits and studies completed. Noticed he has lost almost 20lbs since last visit. Still feeling terrible and has since June when he went to the ER for most of these complaints. Has not gotten any better or worse. Very fatigued, wants to sleep all of the time, having some memoryissues, is irritable, shortness of breath, cough producing sputum but unknown what it looks like, wheezing, generalized weakness, dizziness, increased urinary frequency, dark strong smelling urine, decreased appetite. Also points out that he is weak on his left side and is having difficulty walking after patient is being helped to the restroom to try to get a urine sample. Denies fever, chest pain, edema, palpitations, headaches, syncope, pain with urination, CT of brain on 08/08/24 showing no acute concerns. 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 Diabetes mellitus (HCC) Diarrhea Dual implantable cardioverter-defibrillator in situ Dyslipidemia Esophageal reflux Ex-smoker History of transfusion Hypothyroidism 11/21/2022 Mononeuritis of unspecified site Obesity, unspecified Other chronic nonalcoholic liver disease Personal history of colonic polyps 03/20/2005 hyperplastic polyps Unspecified essential hypertension PAST SURGICAL HISTORY Procedure Laterality Date BSCAN OS (LEFT EYE) Left CARDIOVERSION 04/30/2023 COLONOSCOPY FLX DX W/COLLJ SPEC WHEN PFRMD 03/20/2005 Colonoscopy COLONOSCOPY FLX DX W/COLLJ SPEC WHEN PFRMD 06/15/2015 Colonoscopy [facility] out pt ENDOSCOPY PROC 08/2018 ESOPHAGOGASTRODUODENOSCOPY TRANSORAL DIAGNOSTIC 06/15/2015 EGD [facility] out pt EXCISION PILONIDAL CYST/SINUS SIMPLE 01/19/2003 Excision pilonidal cyst PACEMAKER SURGERY 03/11/2012 pacer/defib PACEMAKER SURGERY 09/17/2018 PAST SURGICAL HISTORY OF 09/16/2012 eye surgery, s/p Plaque OS PRO SMART PILL CAPSULE PROC ([id number]) 10/15/2018 REMOVAL GALLBLADDER 06/10/2021 REMOVE PACEMAKER SYSTEM 09/17/2018 replaced it all RPR UMBILICAL HERNIA < 5 YRS REDUCIBLE 02/17/1999 Hernia repair, umbilical ALLERGIES Patient has no known allergies. MEDICATIONS lisinopril (ZESTRIL, PRINIVIL) 40 mg tablet Take 1 tablet by mouth once daily. amLODIPine (NORVASC) 5 mg tablet Take 0.5 tablets by mouth once daily. buPROPion XL (WELLBUTRIN XL) 150 mg 24 hr tablet Take 1 tablet by mouth once daily. amoxicillin-clavulanate potassium (AUGMENTIN) 875-125 mg per tablet Take by mouth. semaglutide (OZEMPIC) 1 mg/dose (4 mg/3 mL) pen Inject 1 mg subcutaneously one time a week. insulin glargine (LANTUS SOLOSTAR U-100 INSULIN) 100 unit/mL (3 mL) Inject 25 Units subcutaneously daily at bedtime. lovastatin (MEVACOR) 20 mg tablet Take 1 tablet by mouth every other day. warfarin (COUMADIN) 2.5 mg tablet TAKE 1 TABLET BY MOUTH ONCE DAILY OR DIRECTED gabapentin (NEURONTIN) 600 mg tablet Take 1 tablet by mouth daily at bedtime for 180 days. warfarin (COUMADIN) 5 mg tablet Take 1 tablet by mouth once daily. tamsulosin (FLOMAX) 0.4 mg Take 2 capsules by mouth once daily. metoprolol tartrate, short acting, (LOPRESSOR) 100 mg tablet Take 1 tablet by mouth two times a day. allopurinol (ZYLOPRIM) 100 mg tablet Take 2 tablets by mouth once daily. DULoxetine (CYMBALTA) 60 mg capsule Take 1 capsule by mouth once daily. levothyroxine (SYNTHROID) 50 mcg tablet TAKE 1 TABLET BY MOUTH ONCE DAILY ON AN EMPTY STOMACH FOR THYROID potassium chloride (KLOR-CON 10) 10 mEq tablet Take 1 tablet by mouth two times a day. magnesium oxide (MAGOX) 400 mg (241.3 mg magnesium) tablet Take 1 tablet by mouth two times a day. ferrous sulfate 325 mg (65 mg iron) tablet Take 1 tablet by mouth every Sunday, Sunday, and Sunday. apremilast (OTEZLA) 30 mg tablet Take 1 tablet by mouth twice daily. (Patient taking differently: Take 30 mg by mouth once daily.) clobetasol (TEMOVATE) 0.05 % cream APPLY TO THE AFFECTED FLARES ON THE HANDS TWICE DAILY FOR 2 WEEKS THEN TAKE A WEEK OFF BEFORE RESUMING. acetaminophen (TYLENOL) 500 mg tablet Take 500 mg by mouth as needed. LILO PEN NEEDLE 32 gauge x 5/32 ndle USE TWICE DAILY WITH INSULIN DOSE Blood Sugar Diagnostic, Drum (ACCU-CHEK COMPACT TEST) strp Test blood sugar(s) 4 times daily. Dx: DM 250 Insulin: Yes Lancets (ACCU-CHEK SOFTCLIX LANCETS) Misc lancets three times daily as needed. Dx. 250.00 FAMILY HISTORY Problem Relation Age of Onset Heart Mother of CHF at 91 Stroke Mother Hypertension Mother other (Other) Father at 87 of a brain aneurysm Hypertension Brother Stroke Brother Heart Brother Goiter Maternal Grandmother Aneurysm Maternal Grandfather brain No Ocular Disease Other Colon Cancer No Family History Social History Tobacco Use Smoking status: Former Current packs/day: 0.00 Average packs/day: 1 pack/day for 40.0 years (40.0 ttl pk-yrs) Types: Cigarettes Start date: 03/26/1969 Quit date: 03/26/2009 Years since quittin.5 Smokeless tobacco: Never Vaping Use Vaping status: Never Used Substance Use Topics 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 Lungs: Lungs with some faint expiratory wheezing No rhonchi, rales. Heart: RRR without murmur, gallop, or rubs. No ectopy Abdomen: Abdomen soft, non-tender. Bowel sounds normal. No masses, organomegaly Health maintenance reviewed with patient: Anxiety Screening Never done Hepatitis B Vaccine(1 of 3 - Risk 3-dose series) Never done Shingrix Vaccine(1 of 2) due on 06/13/2016 DTaP,Tdap,Td Vaccine(3 - Td or Tdap) due on 01/28/2022 Dilated Retinal Exam due on 11/24/2022 Advance Directive Discussion due on 09/10/2024 Covid-19 Vaccine() due on 10/20/2024 HbA1C due on 12/17/2024 LDL Cholesterol due on 06/18/2025 Diabetic Foot Exam due on 06/20/2025 Serum Creatinine due on 07/18/2025 Annual PCP Team Chronic Disease Visit due on 08/25/2025 BP Controlled (<130/80) due on 08/25/2025 Colorectal Cancer Screening due on 02/04/2034 Abdominal Aortic Aneurysm Screening Completed Influenza Vaccine Completed RSV Vaccine Completed Hepatitis C Screening Completed Pneumococcal Vaccine: 50+ Completed HPV Vaccine Aged Out Urine Albumin:Creatinine Ratio Discontinued DATA REVIEWED: Most recent labs and imaging results. ASSESSMENT/PLAN: 1. Other fatigue - ICD9: 780.79, ICD10: R53.83 (primary diagnosis) With the extreme fatigue, left sided weakness, memory concerns, and as visit continued there were concerns for personality changes, 20 pound weight change, patient sent to ER for work up as high probability of serious infection vs stroke vs other etiology vs possibility of multiple concerns. Spoke with Er physician and pt admitted into hospital. Will follow up after discharge. 2. Left-sided weakness - ICD9: 728.87, ICD10: R53.1 As above 3. Shortness of breath - ICD9: 786.05, ICD10: R06.02 See #1 4. Memory change - ICD9: 780.93, ICD10: R41.3 See #1 5Hypokalemia - ICD9: 276.8, ICD10: E87.6 - POTASSIUM CHLORIDE ER 10 MEQ TABLET,EXTENDED RELEASE 6. Nocturia - ICD9: 788.43, ICD10: R35.1 - TAMSULOSIN 0.4 MG CAPSULE Prescription instructions reviewed with patient as applicable. Potential red flag symptoms discussed with the patient. Reviewed appropriate action plan to take if red flag symptoms occur. Patient agreeable to treatment plan. Lino Bhandari APRN.CNP documented in this encounterProm[facility] Telephone encounter Note * Telephone Encounter - Jennifer Black RN - 09/26/2024 10:30 AM EST Left vm for patient to return call to nurse for provider's message. [facility]01-17-[facility] Miscellaneous Notes* Telephone Encounter - Jennifer Black RN - 09/26/2024 10:30 AM EST Left vm for patient to return call to nurse for provider's message. * Telephone Encounter - Dee Ashley MD - 09/26/2024 6:06 AM EST Recheck in 2 weeks, continue the same dose Dee Larson MD * Telephone Encounter - Aminah Aranda LPN - 09/25/2024 2:11 PM EST Last INR: INR (POCT) 3 09/24/2024 Current dose of coumadin is: 2.5 mg Sun, sun and Sunday 4mg all other days. Last date of dose change: 08/27/24. Previous INR (date and result): 08/27/24 2.7 Additional Clinical Information or narrative: no documented in this encounterPromedica [facility]01-17-2025 Telephone encounter Note * Telephone Encounter - Dee Ashley MD - 09/26/2024 6:06 AM EST Recheck in 2 weeks, continue the same dose Dee Larson MD [facility]01-16-2025 Telephone encounter Note* Telephone Encounter - Aminah Aranda LPN - 09/25/2024 2:11 PM EST Last INR: INR (POCT) 3 09/24/2024 Current dose of coumadin is: 2.5 mg Sun, sun and Sunday 4mg all other days. Last date of dose change: 08/27/24. Previous INR (date and result): 08/27/24 2.7 Additional Clinical Information or narrative: no [facility]12-18-[facility] Telephone encounter Note* Telephone Encounter - Shelia Charles MA - 08/27/2024 3:16 PM EST Kiley notified. [facility]12-18-2024 Miscellaneous Notes* Telephone Encounter - Shelia Charles MA - 08/27/2024 3:16 PM EST Kiley notified. * Telephone Encounter - Lino Bhandari APRN.CNP - 08/27/2024 1:38 PM EST As long as no other medication changes or concerns, can continue current dosage and recheck in 4 weeks since INR is in therapeutic range. Thank you Lino Bhandari APRN.JOB FOREMAN * Telephone Encounter - Lillian Bo MA - 08/27/2024 11:56 AM EST PT INR Date Value Ref Range Status 08/27/2024 2.7 2 - 3 Final Patient confirms that current dose is 2.5 mg Sat, Sun, and Sunday; 4 mg all other days. Lillian Bo MA documented in this encounterPromedica [facility]12-18-2024 Telephone encounter Note * Telephone Encounter - Lino Bhandari APRN.CNP - 08/27/2024 1:38 PM EST As long as no other medication changes or concerns, can continue current dosage and recheck in 4 weeks since INR is in therapeutic range. Thank you Lino Bhandari APRN.JOB FOREMAN [facility]12-18-2024 Telephone encounter Note* Telephone Encounter - Lillian Bo MA - 08/27/2024 11:56 AM EST PT INR Date Value Ref Range Status 08/27/2024 2.7 2 - 3 Final Patient confirms that current dose is 2.5 mg Sat, Sun, and Sunday; 4 mg all other days. Lillian Bo MA [facility]12-16-2024 Instructions* Patient Instructions* Dee Ashley MD - 08/25/2024 11:04 AM EST Cut down the caffeine and drinks more water Cut down the norvasc to half a pill , take only 2.5 mgs a day. documented in this encounterPromedica Bay [facility] Hospital12-16-[address]16-2024 History of Present illness Narrative* Dee Ashley MD - 08/25/2024 10:47 AM EST Reason for Visit Patient presents with: Follow Up Yazan Nolasco is a 72 year old male who presents here today for Above Complaints.. Health Maintenance HEPATITIS B(1 of 3 - Risk 3-dose series) SHINGRIX VACCINE(2 of 3) DTAP,TDAP,TD(3 - Td or Tdap) ADVANCE DIRECTIVE DISCUSSION DILATED RETINAL EXAM HPI 74-year-old gentleman with history of hypertension, diabetes mellitus, paroxysmal A-fib and on warfarin for dual pacemaker and defibrillator. Sleep apnea, stage III kidney disease, history of hypokalemia and hypomagnesemia, hypothyroidism, thrombocytopenia, morbid obesity, recurrent major depressive disorder, hyperlipidemia. He has been anemic on and off currently his hemoglobin is good. July 10, 2024 he had been to the ER for nausea, not feeling good and some abdominal pain. The evaluation there showed that he was hypokalemic and hypomagnesemic along with having some early colitis in the rectosigmoid area. Psoriasis with arthritis: he is seeing Dr Smith for derma, we discussed otezla. He is on otezla. Hands are all swollen, now he is able to lift shoulders. The knees are better. Hands skin is better. Hypothyroidism. She is doing well on her current dose of Synthroid. Denies fatigue, cold intolerance and swelling in feet. TSH recently checked and normal. HPL: Reviewed test results with patient , takes medications regularly , does not report side effects. Conscious to avoid red meats, full fat dairy and its by products. Exercising 3 to 5 times a week. The medication delays bf by half hour. Potassium is on the lower side despite taking the potassium supplements, 2 times a day, Will change to spirolactone Diabetes Mellitus: her hba1c is 5.6. he likes his semaglutide. He has gastropathy, presents as diarrhea, it is not painful in anyway.the food stays longer in the stomach, he has cut down his portionsbut is also not nearly as active as he should. Weight has been stable recently.he has been eating alot of celery, which messes up with his INR readings. Is able to control his diet. He has been eating like a fool eating luna cookies, a lot at at time. Has been to see Dr Serrano, who says he has copd added a nebulizer and inhaler he will call with that medication as he does not know the medication 08/25/2024: he has had 5 good days recently , which is rare. notes he has dizziness. Most of the time when he stands up he is dizzy 75 percent of the time. He only drinks 10 ounces of coffee, hedrinks 2 bottles of unsweetened tea, he does not drink a lot water. No problem-specific Assessment & Plan notes found for this encounter. 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 Diabetes mellitus (HCC) Diarrhea Dual implantable cardioverter-defibrillator in situ Dyslipidemia Esophageal reflux Ex-smoker History of transfusion Hypothyroidism 11/21/2022 Mononeuritis of unspecified site Obesity, unspecified Other chronic nonalcoholic liver disease Personal history of colonic polyps 03/20/2005 hyperplastic polyps Unspecified essential hypertension PAST SURGICAL HISTORY Procedure Laterality Date BSCAN OS (LEFT EYE) Left CARDIOVERSION 04/30/2023 COLONOSCOPY FLX DX W/COLLJ SPEC WHEN PFRMD 03/20/2005 Colonoscopy COLONOSCOPY FLX DX W/COLLJ SPEC WHEN PFRMD 06/15/2015 Colonoscopy [facility] out pt ENDOSCOPY PROC 08/2018 ESOPHAGOGASTRODUODENOSCOPY TRANSORAL DIAGNOSTIC 06/15/2015 EGD [facility] out pt EXCISION PILONIDAL CYST/SINUS SIMPLE 01/19/2003 Excision pilonidal cyst PACEMAKER SURGERY 03/11/2012 pacer/defib PACEMAKER SURGERY 09/17/2018 PAST SURGICAL HISTORY OF 09/16/2012 eye surgery, s/p Plaque OS PRO SMART PILL CAPSULE PROC ([id number]) 10/15/2018 REMOVAL GALLBLADDER 06/10/2021 REMOVE PACEMAKER SYSTEM 09/17/2018 replaced it all RPR UMBILICAL HERNIA < 5 YRS REDUCIBLE 02/17/1999 Hernia repair, umbilical FAMILY HISTORY Problem Relation Age of Onset Heart Mother of CHF at 91 Stroke Mother Hypertension Mother other (Other) Father at 87 of a brain aneurysm Hypertension Brother Stroke Brother Heart Brother Goiter Maternal Grandmother Aneurysm Maternal Grandfather brain No Ocular Disease Other Colon Cancer No Family History Social History Tobacco Use Smoking status: Former Current packs/day: 0.00 Average packs/day: 1 pack/day for 40.0 years (40.0 ttl pk-yrs) Types: Cigarettes Start date: 03/26/1969 Quit date: 03/26/2009 Years since quittin.4 Smokeless tobacco: Never Vaping Use Vaping status: Never Used Substance Use Topics Alcohol use: Not Currently Comment: 1991 Drug use: Not Currently Past medical history, appointments, medications, allergies reviewed. Pertinent Lab/Diagnostic Studies are reviewed and discussed today Current Outpatient Medications: buPROPion XL (WELLBUTRIN XL) 150 mg 24 hr tablet amoxicillin-clavulanate potassium (AUGMENTIN) 875-125 mg per tablet semaglutide (OZEMPIC) 1 mg/dose (4 mg/3 mL) pen amLODIPine (NORVASC) 5 mg tablet insulin glargine (LANTUS SOLOSTAR U-100 INSULIN) 100 unit/mL (3 mL) lovastatin (MEVACOR) 20 mg tablet warfarin (COUMADIN) 2.5 mg tablet gabapentin (NEURONTIN) 600 mg tablet warfarin (COUMADIN) 5 mg tablet tamsulosin (FLOMAX) 0.4 mg metoprolol tartrate, short acting, (LOPRESSOR) 100 mg tablet allopurinol (ZYLOPRIM) 100 mg tablet DULoxetine (CYMBALTA) 60 mg capsule levothyroxine (SYNTHROID) 50 mcg tablet potassium chloride (KLOR-CON 10) 10 mEq tablet magnesium oxide (MAGOX) 400 mg (241.3 mg magnesium) tablet ferrous sulfate 325 mg (65 mg iron) tablet apremilast (OTEZLA) 30 mg tablet clobetasol (TEMOVATE) 0.05 % cream lisinopril (ZESTRIL, PRINIVIL) 40 mg tablet acetaminophen (TYLENOL) 500 mg tablet LILO PEN NEEDLE 32 gauge x 532 ndle Blood Sugar Diagnostic, Drum (ACCU-CHEK COMPACT TEST) strp Lancets (ACCU-CHEK SOFTCLIX LANCETS) [facility] [place] lancets Review of Systems CONSTITUTIONAL: No fevers, chills night sweats, unintended weight loss CARDIOVASCULAR: No chest pain, dyspnea, palpitations, orthopnea, PND, ankle edema. PULM: No dyspnea, unexplained cough. GI: No dysphagia/odynophagia, problematic reflux, constipation, diarrhea, changes in stool habits, hematochezia, melena. : No new urinary complaints, including dysuria, gross hematuria or pyuria. NEURO: No new balance problems, peripheral weakness/paresthesias or numbness of concern. Physical Exam BP 104/68 Pulse 70 Resp 16 Wt 110 kg (242 lb 8.1 oz) BMI 36.34 kg/m General appearance: Well appearing, alert, in no acute distress, well nourished. Skin: Skin color, texture, turgor normal, no suspicious rashes or lesions Head: Normocephalic, no masses, lesions, tenderness or abnormalities Eyes: Anicteric sclera. Pupils are equally round and reactive to light. Extraocular movements are intact. Lungs: Lungs clear to auscultation. No wheezing, rhonchi, rales Heart: RRR without murmur, gallop, or rubs. Extremities: No deformities, edema, skin discoloration, clubbing or cyanosis. Good capillary refill. ASSESSMENT/PLAN: 1. Type 2 diabetes mellitus with diabetic mononeuropathy, with long-term current use of insulin (HCC) - ICD9: 250.60, 355.9, V58.67, ICD10: E11.41, Z79.4 (primary diagnosis) We had decreased the dose of ozempic last visit and he has gained weight. - HEMOGLOBIN A1C - COMPREHENSIVE METABOLIC PANEL - COMPLETE BLOOD COUNT - THYROID STIMULATING HORMONE - LIPID PANEL BASIC 2. Paroxysmal atrial fibrillation (HCC) - ICD9: 427.31, ICD10: I48.0 - AMLODIPINE 5 MG TABLET 3. Dizziness - ICD9: 780.4, ICD10: R42 - He is not drinking enough water,. But drinking a lot of coffee and tea. - We decreased the dose of amlodipine at 2.5 Dee Ashley MD documented in this encounterPromedica [facility]12-11-2024 NoteHNO ID: [id number] Author: PALMIRA RIGGINS LPN Service: ? Author Type: LICENSED NURSE Type: Progress Notes Filed: 08/20/2024 15:47 Note Text: Patient here for injection of B12. Given IM in Right delt. Patient tolerated well. Palmira Riggins [facility]12-11-2024 History of Present illness Narrative* Palmira Riggins LPN - 08/20/2024 1:52 PM EST Patient here for injection of B12. Given IM in Right delt. Patient tolerated well. Palmira Riggins LPN documented in this encounterPromedica Bay [facility] Hospital12-05-2024 Telephone encounter Note * Telephone Encounter - Geovanna Oliver LPN - 08/14/2024 2:33 PM EST Left a message for pt to call the office and ask to speak to a nurse. Geovanna Oliver LPN [facility]12-05-2024 Miscellaneous Notes* Telephone Encounter - Geovanna Oliver LPN - 08/14/2024 2:33 PM EST Left a message for pt to call the office and ask to speak to a nurse. Geovanna Oliver LPN * Telephone Encounter - Geovanna Oliver LPN - 08/14/2024 2:27 PM EST ----- Message from Lino Bhandari APRN.JOB FOREMAN sent at 08/14/2024 12:56 PM EST ----- Verify current dose and if there have been any changes. If no changes then continue current dose ashis INR is in therapeutic range. Recheck in 2 weeks. Thank you Lino Bhandari APRN.JOB FOREMAN * Telephone Encounter - Lillian Bo MA - 08/13/2024 11:41 AM EST PT INR Date Value Ref Range Status 08/13/2024 2.4 2 - 3 Final LM for patient to contact office to confirm current dose. Lillian Bo MA documented in this encounterPromedica Bay [facility]12-05-2024 Telephone encounter Note * Telephone Encounter - Geovanna Oliver LPN - 08/14/2024 2:27 PM EST ----- Message from Lino Bhandari APRN.JOB FOREMAN sent at 08/14/2024 12:56 PM EST ----- Verify current dose and if there have been any changes. If no changes then continue current dose ashis INR is in therapeutic range. Recheck in 2 weeks. Thank you Lino Bhandari APRN.JOB FOREMAN [facility]12-04-2024 Telephone encounter Note* Telephone Encounter - Lillian Bo MA - 08/13/2024 11:41 AM EST PT INR Date Value Ref Range Status 08/13/2024 2.4 2 - 3 Final LM for patient to contact office to confirm current dose. Lillian oB MA [facility]12-03-2024 Telephone encounter Note* Telephone Encounter - Freda Guerra LPN - 08/12/2024 8:54 AM EST left message to notify patient of results. Freda Guerra LPN [facility]12-03-2024 Miscellaneous Notes* Telephone Encounter - Freda Guerra LPN - 08/12/2024 8:54 AM EST left message to notify patient of results. Freda Guerra LPN * Telephone Encounter - Natalia Vela PA-C - 08/11/2024 7:17 AM EST Please let patient know that his CT brain was normal. Natalia Vela PA-C * Telephone Encounter - Freda Guerra LPN - 07/29/2024 3:54 PM EST left message for patient to call office back and speak with triage nurse. Freda Guerra LPN * Telephone Encounter - Natalia Vela PA-C - 07/29/2024 1:22 PM EST Patient's potassium within normal range. He can go back to 1 tab once daily, would repeat in 3-4 weeks to confirm staying WNL. Natalia Vela PA-C 07/29/2024 documented in this encounterPromedica Bay [facility] Hospital12-02-2024 Telephone encounter Note * Telephone Encounter - Natalia Vela PA-C - 08/11/2024 7:17 AM EST Please let patient know that his CT brain was normal. Natalia Vela PA-C [facility]11-30-2024 Telephone encounter Note* Telephone Encounter - Eduardo Bhardwaj RN - 08/09/2024 9:17 AM EST Pts called and is notified of providers message and instructions. She voices understanding. Eduardo Bhardwaj RN [facility]11-30-2024 Miscellaneous Notes* Telephone Encounter - Eduardo Bhardwaj RN - 08/09/2024 9:17 AM EST Pts called and is notified of providers message and instructions. She voices understanding. Eduardo Bhardwaj, RN * Telephone Encounter - Cheryle Degroot LPN - 08/08/2024 2:11 PM EST LEFT MESSAGE FOR PATIENT TO CALL OFFICE. * Telephone Encounter - Dee Ashley MD - 08/08/2024 1:21 PM EST Please tell him to take 2,5 mgs today and continue the same regimen in the next few weeks Dee Larson MD * Telephone Encounter - Cheryle Degroot LPN - 08/08/2024 10:08 AM EST Last INR: INR (POCT) 3.0(ext) 08/06/2024 Current dose of coumadin is: 5mg T,W, Th and 2.5 all other days . Last date of dose change: 06/11/24. Previous INR (date and result): 07/30/24 2.3 Additional Clinical Information or narrative: no documented in this encounterPromedica Bay Park Hospital11-29-2024 History of Present illness Narrative* Camelia Bae, RT(R) - 08/08/2024 2:20 PM EST Radiology Service Progress Note DATE OF SERVICE: August 08, 2024 TIME: 3:41 PM PATIENT IDENTITY VERIFICATION COMPLETED USING TWO (2) STANDARD IDENTIFIERS: Name and Date of confirmed by patient verbally. FALL SCREENING: Has the patient had 2 falls in the last year or 1 fall with injury or currently using an Ambulatory Assistive Device (Walker, Cane, Wheelchair, Crutches, etc.)? No PATIENT GENDER DATA: Male PATIENT RELEVANT IMPLANT DATA REVIEWED: Yes PATIENT PRESENTS WITH AN IMPLANTABLE OR ATTACHED APPELLATE COURT CLERK: No ALLERGIES: Reviewed and unchanged CONTRAST ALLERGY: NO. EXAM: CT -CONTRAST INDUCED NEPHROPATHY RISK FACTORS: Patient age > 60 years CREATININE: Creatinine Date Value Ref Range Status 07/18/2024 1.21 0.73 - 1.22 mg/dL Final 06/18/2024 1.13 0.73 - 1.22 mg/dL Final 03/17/2024 1.12 0.73 - 1.22 mg/dL Final Estimated Glomerular Filtration Rate Date Value Ref Range Status 07/18/2024 63 >=60 mL/min/1.73m Final Comment: Estimated Glomerular Filtration Rate (eGFR) is calculated using the 2020 CKD-EPI creatinine equation. This equation utilizes serum creatinine, sex, and age as parameters. The creatinine assay has traceable calibration to isotope dilution- mass spectrometry. Refer to KDIGO guidelines for clinical interpretation. In patients with unstable renal function, e.g. those with acute kidney injury, the eGFRmay not accurately reflect actual GFR. eGFR- Date Value Ref Range Status 09/26/2021 >60 Final P.O.C.T. RESULTS: POC done: Yes, See Lab Tab August 08, 2024 TREATMENT: N/A PERIPHERAL IV DATA: Ambulatory: A peripheral IV was started in the Left antecubital site with a Angio cath: 22 gauge. RADIOLOGY DEPARTMENT: CT; Exam(s) Completed: Brain SIGNATURE: RT Tiago(Gianluca) PATIENT NAME: Yazan Nolasco DATE: August 08, 2024 TIME: 3:41 PM documented in this encounterPromedica Bay Park Hospital11-29-2024 [facility]Prem[facility]11-29-2024 Telephone encounter Note* Telephone Encounter - Cheryle Degroot LPN - 08/08/2024 2:11 PM EST LEFT MESSAGE FOR PATIENT TO CALL OFFICE. [facility]11-29-2024 Telephone encounter Note* Telephone Encounter - Dee Ashley MD - 08/08/2024 1:21 PM EST Please tell him to take 2,5 mgs today and continue the same regimen in the next few weeks Marsha, Dee Ashley MD [facility]11-29-2024 Telephone encounter Note* Telephone Encounter - Cheryle Degroot LPN - 08/08/2024 10:08 AM EST Last INR: INR (POCT) 3.0(ext) 08/06/2024 Current dose of coumadin is: 5mg T,W, Th and 2.5 all other days . Last date of dose change: 06/11/24. Previous INR (date and result): 07/30/24 2.3 Additional Clinical Information or narrative: no [facility]11-27-2024 Telephone encounter Note* Telephone Encounter - Shelia Charles MA - 08/06/2024 4:03 PM EST Patient notified. [facility]11-27-2024 Miscellaneous Notes* Telephone Encounter - Shelia Charles MA - 08/06/2024 4:03 PM EST Patient notified. * Telephone Encounter - Lino Bhandari APRN.CNP - 08/06/2024 4:02 PM EST Continue same dose. Increase most likely due to antibiotic but as it is top of normal. Recheck in 2weeks. Thank you Lino Bhandari APRN.JOB FOREMAN * Telephone Encounter - Shelia Charles MA - 08/06/2024 3:59 PM EST Last INR: INR (POCT) 2.4 07/10/2024 Current dose of coumadin is: 5mg T,W, Th and 2.5 all other days. Last date of dose change: 06/11/2024. Previous INR (date and result): 07/10/24 2.3 Additional Clinical Information or narrative: yes: Patient just finished AIB documented in this encounterPromedica Bay [facility] Hospital11-27-2024 Telephone encounter Note * Telephone Encounter - Lino Bhandari APRN.CNP - 08/06/2024 4:02 PM EST Continue same dose. Increase most likely due to antibiotic but as it is top of normal. Recheck in 2weeks. Thank you Lino Bhandari APRN.JOB FOREMAN [facility]11-27-2024 Telephone encounter Note* Telephone Encounter - Shelia Charles MA - 08/06/2024 3:59 PM EST Last INR: INR (POCT) 2.4 07/10/2024 Current dose of coumadin is: 5mg T,W, Th and 2.5 all other days. Last date of dose change: 06/11/2024. Previous INR (date and result): 07/10/24 2.3 Additional Clinical Information or narrative: yes: Patient just finished AIB [facility]11-19-20[facility] Telephone encounter Note* Telephone Encounter - Freda Guerra LPN - 07/29/2024 3:54 PM EST left message for patient to call office back and speak with triage nurse. Freda Guerra LPN [facility]11-19-2024 Telephone encounter Note* Telephone Encounter - Natalia Vela PA-C - 07/29/2024 1:22 PM EST Patient's potassium within normal range. He can go back to 1 tab once daily, would repeat in 3-4 weeks to confirm staying WNL. Natalia Vela PA-C 07/29/2024 [facility]11-19-2024 [facility]Prem[facility]11-19-2024 History of Present illness Narrative* Natalia Vela PA-C - 07/29/2024 10:34 AM EST 07/29/2024 Patient presents with: Follow Up: balance issues, weight loss and speech issues SUBJECTIVE: This is a 74 year old PMH COPD, CAD. that is here today for Complaint(s) of feeling sick with chills, vomiting, diarrhea shortly after receiving a flu shot in the office about 5 weeks ago. He was seen in the ED and CT of the abdomen. Diagnosed with early colitis and hypokalemia. Treatedwith antibiotics and potassium. He was having a little bit of trouble with balance, but improved today. Balance has been a chronic issue per patient and . No falls recently. Last fall was lippingon the porch this summer and falling. Also noted some speech issues. Patient feels like it has declined the last few years. History of alcoholism. Stopped drinking 1991. Having headaches, denies worst LOZANO of life. HAs are mostly in the back of the head. Patient had some weight loss, but gaining recently Last 5 Encounter Wt Readings: Date: Wt: 07/29/2024 106.6 kg (235 lb) 07/18/2024 104.6 kg (230 lb 9.6 oz) 06/20/2024 113.9 kg (251 lb) 03/20/2024 105.2 kg (232 lb) 03/18/2024 104.7 kg (230 lb 14.4 oz)] 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 Diabetes mellitus (HCC) Diarrhea Dual implantable cardioverter-defibrillator in situ Dyslipidemia Esophageal reflux Ex-smoker History of transfusion Hypothyroidism 11/21/2022 Mononeuritis of unspecified site Obesity, unspecified Other chronic nonalcoholic liver disease Personal history of colonic polyps 03/20/2005 hyperplastic polyps Unspecified essential hypertension ALLERGIES Patient has no known allergies. MEDICATIONS Current Outpatient Medications Medication Sig amoxicillin-clavulanate potassium (AUGMENTIN) 875-125 mg per tablet Take by mouth. semaglutide (OZEMPIC) 1 mg/dose (4 mg/3 mL) pen Inject 1 mg subcutaneously one time a week. amLODIPine (NORVASC) 5 mg tablet Take 1 tablet by mouth once daily. insulin glargine (LANTUS SOLOSTAR U-100 INSULIN) 100 unit/mL (3 mL) Inject 25 Units subcutaneously daily at bedtime. lovastatin (MEVACOR) 20 mg tablet Take 1 tablet by mouth every other day. warfarin (COUMADIN) 2.5 mg tablet TAKE 1 TABLET BY MOUTH ONCE DAILY OR DIRECTED gabapentin (NEURONTIN) 600 mg tablet Take 1 tablet by mouth daily at bedtime for 180 days. warfarin (COUMADIN) 5 mg tablet Take 1 tablet by mouth once daily. tamsulosin (FLOMAX) 0.4 mg Take 2 capsules by mouth once daily. metoprolol tartrate, short acting, (LOPRESSOR) 100 mg tablet Take 1 tablet by mouth two times a day. allopurinol (ZYLOPRIM) 100 mg tablet Take 2 tablets by mouth once daily. DULoxetine (CYMBALTA) 60 mg capsule Take 1 capsule by mouth once daily. levothyroxine (SYNTHROID) 50 mcg tablet TAKE 1 TABLET BY MOUTH ONCE DAILY ON AN EMPTY STOMACH FOR THYROID potassium chloride (KLOR-CON 10) 10 mEq tablet Take 1 tablet by mouth two times a day. magnesium oxide (MAGOX) 400 mg (241.3 mg magnesium) tablet Take 1 tablet by mouth two times a day. ferrous sulfate 325 mg (65 mg iron) tablet Take 1 tablet by mouth every Sunday, Sunday, and Sunday. apremilast (OTEZLA) 30 mg tablet Take 1 tablet by mouth twice daily. (Patient taking differently: Take 30 mg by mouth once daily.) clobetasol (TEMOVATE) 0.05 % cream APPLY TO THE AFFECTED FLARES ON THE HANDS TWICE DAILY FOR 2 WEEKS THEN TAKE A WEEK OFF BEFORE RESUMING. lisinopril (ZESTRIL, PRINIVIL) 40 mg tablet Take 1 tablet by mouth once daily. acetaminophen (TYLENOL) 500 mg tablet Take 500 mg by mouth as needed. LILO PEN NEEDLE 32 gauge x 5/32 ndle USE TWICE DAILY WITH INSULIN DOSE Blood Sugar Diagnostic, Drum (ACCU-CHEK COMPACT TEST) strp Test blood sugar(s) 4 times daily. Dx: DM 250 Insulin: Yes Lancets (ACCU-CHEK SOFTCLIX LANCETS) Misc lancets three times daily as needed. Dx. 250.00 No current facility-administered medications for this visit. SOCIAL HISTORY Social History Tobacco Use Smoking status: Former Current packs/day: 0.00 Average packs/day: 1 pack/day for 40.0 years (40.0 ttl pk-yrs) Types: Cigarettes Start date: 03/26/1969 Quit date: 03/26/2009 Years since quittin.3 Smokeless tobacco: Never Vaping Use Vaping status: Never Used Substance Use Topics Alcohol use: Not Currently Comment: 1991 Drug use: Not Currently REVIEW OF SYSTEMS See HPI OBJECTIVE: BP 106/56 (BP Site: Left Arm, BP Position: Sitting, BP Cuff Size: Large Adult) Pulse 85 Resp 14 Ht 174 cm (5' 8.5) Wt 106.6 kg (235 lb) SpO2 97% BMI 35.21 kg/m APPEARANCE Well appearing, alert, in no acute distress, well-hydrated, well nourished. EYES PERRLA, conjunctiva and sclera normal. EARS External ears normal, canals clear NOSE/SINUS Nares normal. Septum midline. Mucosa normal. No drainage or sinus tenderness. THROAT normal, no erythema NECK Supple, no adenopathy; thyroid symmetric, normal size, no bruits HEART RRR with normal S1 and S2, no murmurs, no gallops, no JVD appreciated LUNG clear to auscultation ABDOMEN bowel sounds normoactive, no bruits, soft, non-tender, non-distended, without organomegaly or palpable masses, no tenderness to palpation EXTREMITIES Extremities normal, No deformities, No skin discoloration, No edema, and Normal pulses bilaterally. ASSESSMENT/PLAN: 1. Episode of change in speech - ICD9: 784.59, ICD10: R47.89 (primary diagnosis) Patient with ICD, will order CT brain Reviewed red flags and when to seek care sooner in ED - CT BRAIN WO/W IVCON - IV CONTRAST (RADIOLOGY PROCEDURE) - URINE CULTURE 2. Balance problem - ICD9: 781.99, ICD10: R26.89 As above - CT BRAIN WO/W IVCON - IV CONTRAST (RADIOLOGY PROCEDURE) - URINE CULTURE 3. Recurrent major depressive disorder, in partial remission (HCC) - ICD9: 296.35, ICD10: F33.41 Add wellbutrin. Currently on Cymbalta 60 mg (neuropathy) Denies SI/HI F/u in 4-6 weeks, sooner if needed. Patient having INR rechecked tomorrow and next week to monitor. 4. Hypokalemia - ICD9: 276.8, ICD10: E87.6 Recheck. Patient previously on 10 mg once daily, increase to twice daily with last ED visit. Askingif he can decrease dose. Will recheck labs and monitor. - POTASSIUM The patient indicates understanding of these issues and agrees with the plan. Natalia Vela PA-C documented in this encounterProm[facility]11-[facility]24 Telephone encounter Note * Telephone Encounter - Ciera Tiwari RN - 07/26/2024 4:13 PM EST Patient calling with request for: Received call from [facility] moments ago and was not able to reach phone in time. Does not have VM. Patient is scheduled for upcoming appointment on Sunday07/29/24 at 10:20am, possibly [facility] calling to confirm. Appointment confirmed. [facility]11-16-[facility] Miscellaneous Notes* Telephone Encounter - Ciera Tiwari RN - 07/26/2024 4:13 PM EST Patient calling with request for: Received call from [facility] moments ago and was not able to reach phone in time. Does not have VM. Patient is scheduled for upcoming appointment on Sunday07/29/24 at 10:20am, possibly [facility] calling to confirm. Appointment confirmed. documented in this encounterPromedica [facility]11-15-2024 Telephone encounter Note * Telephone Encounter - Tania Calabrese RN - 07/25/2024 2:56 PM EST Spouse returns call and provider message reviewed with verbalized understanding. Tania Calabrese RN [facility]11-15-2024 Miscellaneous Notes* Telephone Encounter - Tania Calabrese RN - 07/25/2024 2:56 PM EST Spouse returns call and provider message reviewed with verbalized understanding. Tania Calabrese RN * Telephone Encounter - Shelia Charles MA - 07/25/2024 2:48 PM EST Left message for return call. * Telephone Encounter - Lino Bhandari APRN.CNP - 07/25/2024 1:44 PM EST Any further changes or concerns he needs seen right away to look for other infection like UTI, pneumonia, or other underlying infection. Thank you Lino Bhandari APRN.OREN * Telephone Encounter - Geovanna Oliver LPN - 07/25/2024 1:21 PM EST calls and pt is still not improving like they feel he should be. Pt still rambles when talking, problems walking off and on and gets tired quicker. Just not him self. Pt is sleeping 14 hrs and sometimes longer than this. Although pt was not sleeping at all before this started. Pt scheduled forapt on 07-29-24. DENIES: SOB, breathing issues, abdominal pain, vomiting, diarrhea and no problem urinating. Pt last seen was 07-18-24 for an ER FU. instructed to take pt to ER if anything changes. Please review and if any questions please feel free to call . Geovanna Oilver LPN documented in this encounterPromedica [facility]11-15-2024 Telephone encounter Note * Telephone Encounter - Shelia Charles MA - 07/25/2024 2:48 PM EST Left message for return call. [facility]-15-[facility] Telephone encounter Note* Telephone Encounter - Lino Bhandari APRN.CNP - 07/25/2024 1:44 PM EST Any further changes or concerns he needs seen right away to look for other infection like UTI, pneumonia, or other underlying infection. Thank you Lino Bhandari APRN.[employer]OB [employer] [facility]11-15-[facility]24 Telephone encounter Note* Telephone Encounter - Geovanna Oliver LPN - 07/25/2024 1:21 PM EST calls and pt is still not improving like they feel he should be. Pt still rambles when talking, problems walking off and on and gets tired quicker. Just not him self. Pt is sleeping 14 hrs and sometimes longer than this. Although pt was not sleeping at all before this started. Pt scheduled forapt on 07-29-24. DENIES: SOB, breathing issues, abdominal pain, vomiting, diarrhea and no problem urinating. Pt last seen was 07-18-24 for an ER FU. instructed to take pt to ER if anything changes. Please review and if any questions please feel free to call . Geovanna Oliver LPN [facility]11-08-2024 History of Present illness Narrative* Dee Ashley MD - 07/18/2024 10:22 AM EST Reason for Visit Patient presents with: ER F/U: Stomach, diarrhea, nausea for 3 weeks, [facility] ER CT scan done Yazan Nolasco is a 72 year old male who presents here today for Above Complaints.. Health Maintenance HEPATITIS B(1 of 3 - Risk 3-dose series) SHINGRIX VACCINE(2 of 3) DTAP,TDAP,TD(3 - Td or Tdap) ADVANCE DIRECTIVE DISCUSSION DILATED RETINAL EXAM HPI 74-year-old gentleman with history of hypertension, diabetes mellitus, paroxysmal A-fib and on warfarin for dual pacemaker and defibrillator. Sleep apnea, stage III kidney disease, history of hypokalemia and hypomagnesemia, hypothyroidism, thrombocytopenia, morbid obesity, recurrent major depressive disorder, hyperlipidemia. He has been anemic on and off currently his hemoglobin is good. July 10, 2024 he had been to the ER for nausea, not feeling good and some abdominal pain. The evaluation there showed that he was hypokalemic and hypomagnesemic along with having some early colitis in the rectosigmoid area. Psoriasis with arthritis: he is seeing Dr Smith for derma, we discussed otezla. He is on otezla. Hands are all swollen, now he is able to lift shoulders. The knees are better. Hands skin is better. Hypothyroidism. She is doing well on her current dose of Synthroid. Denies fatigue, cold intolerance and swelling in feet. TSH recently checked and normal. HPL: Reviewed test results with patient , takes medications regularly , does not report side effects. Conscious to avoid red meats, full fat dairy and its by products. Exercising 3 to 5 times a week. The medication delays bf by half hour. Potassium is on the lower side despite taking the potassium supplements, 2 times a day, Will change to spirolactone Diabetes Mellitus: her hba1c is 5.6. he likes his semaglutide. He has gastropathy, presents as diarrhea, it is not painful in anyway.the food stays longer in the stomach, he has cut down his portionsbut is also not nearly as active as he should. Weight has been stable recently.he has been eating alot of celery, which messes up with his INR readings. Is able to control his diet. He has been eating like a fool eating luna cookies, a lot at at time. Has been to see Dr Serrano, who says he has copd added a nebulizer and inhaler he will call with that medication as he does not know the medication No problem-specific Assessment & Plan notes found for this encounter. 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 Diabetes mellitus (HCC) Diarrhea Dual implantable cardioverter-defibrillator in situ Dyslipidemia Esophageal reflux Ex-smoker History of transfusion Hypothyroidism 11/21/2022 Mononeuritis of unspecified site Obesity, unspecified Other chronic nonalcoholic liver disease Personal history of colonic polyps 03/20/2005 hyperplastic polyps Unspecified essential hypertension PAST SURGICAL HISTORY Procedure Laterality Date BSCAN OS (LEFT EYE) Left CARDIOVERSION 04/30/2023 COLONOSCOPY FLX DX W/COLLJ SPEC WHEN PFRMD 03/20/2005 Colonoscopy COLONOSCOPY FLX DX W/COLLJ SPEC WHEN PFRMD 06/15/2015 Colonoscopy [facility] out pt ENDOSCOPY PROC 08/2018 ESOPHAGOGASTRODUODENOSCOPY TRANSORAL DIAGNOSTIC 06/15/2015 EGD [facility] out pt EXCISION PILONIDAL CYST/SINUS SIMPLE 01/19/2003 Excision pilonidal cyst PACEMAKER SURGERY 03/11/2012 pacer/defib PACEMAKER SURGERY 09/17/2018 PAST SURGICAL HISTORY OF 09/16/2012 eye surgery, s/p Plaque OS PRO SMART PILL CAPSULE PROC ([id number]) 10/15/2018 REMOVAL GALLBLADDER 06/10/2021 REMOVE PACEMAKER SYSTEM 09/17/2018 replaced it all RPR UMBILICAL HERNIA < 5 YRS REDUCIBLE 02/17/1999 Hernia repair, umbilical FAMILY HISTORY Problem Relation Age of Onset Heart Mother of CHF at 91 Stroke Mother Hypertension Mother other (Other) Father at 87 of a brain aneurysm Hypertension Brother Stroke Brother Heart Brother Goiter Maternal Grandmother Aneurysm Maternal Grandfather brain No Ocular Disease Other Colon Cancer No Family History Social History Tobacco Use Smoking status: Former Current packs/day: 0.00 Average packs/day: 1 pack/day for 40.0 years (40.0 ttl pk-yrs) Types: Cigarettes Start date: 03/26/1969 Quit date: 03/26/2009 Years since quittin.3 Smokeless tobacco: Never Vaping Use Vaping status: Never Used Substance Use Topics Alcohol use: Not Currently Comment: 1991 Drug use: Not Currently Past medical history, appointments, medications, allergies reviewed. Pertinent Lab/Diagnostic Studies are reviewed and discussed today Current Outpatient Medications: amoxicillin-clavulanate potassium (AUGMENTIN) 875-125 mg per tablet amLODIPine (NORVASC) 5 mg tablet insulin glargine (LANTUS SOLOSTAR U-100 INSULIN) 100 unit/mL (3 mL) lovastatin (MEVACOR) 20 mg tablet warfarin (COUMADIN) 2.5 mg tablet gabapentin (NEURONTIN) 600 mg tablet warfarin (COUMADIN) 5 mg tablet tamsulosin (FLOMAX) 0.4 mg semaglutide (OZEMPIC) 2 mg/dose (8 mg/3 mL) pen injector metoprolol tartrate, short acting, (LOPRESSOR) 100 mg tablet allopurinol (ZYLOPRIM) 100 mg tablet DULoxetine (CYMBALTA) 60 mg capsule levothyroxine (SYNTHROID) 50 mcg tablet potassium chloride (KLOR-CON 10) 10 mEq tablet magnesium oxide (MAGOX) 400 mg (241.3 mg magnesium) tablet ferrous sulfate 325 mg (65 mg iron) tablet apremilast (OTEZLA) 30 mg tablet clobetasol (TEMOVATE) 0.05 % cream lisinopril (ZESTRIL, PRINIVIL) 40 mg tablet acetaminophen (TYLENOL) 500 mg tablet LILO PEN NEEDLE 32 gauge x ndle Blood Sugar Diagnostic, Drum (ACCU-CHEK COMPACT TEST) strp Lancets (ACCU-CHEK SOFTCLIX LANCETS) Misc lancets Review of Systems CONSTITUTIONAL: No fevers, chills night sweats, unintended weight loss CARDIOVASCULAR: No chest pain, dyspnea, palpitations, orthopnea, PND, ankle edema. PULM: No dyspnea, unexplained cough. GI: No dysphagia/odynophagia, problematic reflux, constipation, diarrhea, changes in stool habits, hematochezia, melena. : No new urinary complaints, including dysuria, gross hematuria or pyuria. NEURO: No new balance problems, peripheral weakness/paresthesias or numbness of concern. Physical Exam BP 142/72 (BP Site: Left Arm) Pulse 61 Wt 104.6 kg (230 lb 9.6 oz) SpO2 97% BMI 34.55 kg/m General appearance: Well appearing, alert, in no acute distress, well nourished. Skin: Skin color, texture, turgor normal, no suspicious rashes or lesions Head: Normocephalic, no masses, lesions, tenderness or abnormalities Eyes: Anicteric sclera. Pupils are equally round and reactive to light. Extraocular movements are intact. Lungs: Lungs clear to auscultation. No wheezing, rhonchi, rales Heart: RRR without murmur, gallop, or rubs. Extremities: No deformities, edema, skin discoloration, clubbing or cyanosis. Good capillary refill. ASSESSMENT/PLAN: 1. Hospital discharge follow-up - ICD9: V67.59, ICD10: Z09 (primary diagnosis) ER discharge records are reviewed. Hypomagnesemia hypokalemia and colitis from the CT scan which ismild. He is almost done with her antibiotics and is feeling better. We will check his potassium andmagnesium levels 2. Diabetic gastropathy (HCC) - ICD9: 250.80, 537.9, ICD10: E11.69, K31.89 I think his gastropathy is definitely from diabetes but semaglutide is slowing his gut and althoughmore so I will reduce his semaglutide from 2 to 1 mg as his A1c is in the prediabetic range and hishemoglobin is normal which should be reliable.. - SEMAGLUTIDE 1 MG/DOSE (4 MG/3 ML) SUBCUTANEOUS PEN INJECTOR 3. Hypokalemia - ICD9: 276.8, ICD10: E87.6 - BASIC METABOLIC PANEL 4. Hypomagnesemia - ICD9: 275.2, ICD10: E83.42 - MAGNESIUM 5. Essential hypertension - ICD9: 401.9, ICD10: I10 - Controlled - Recommend home blood pressure monitoring, to bring results to next visit - Encouraged sodium restriction, DASH or Mediterranean diet - Recommend regular aerobic exercise Dee Ashley MD documented in this encounterProm[facility]11-07-2024 Telephone encounter Note * Telephone Encounter - Aminah Aranda LPN - 07/17/2024 11:52 AM EST Called and updated patient, scheduled f/u ER visit for 07/18/[address] Cammy Aranda LPN July 17, 2024 11:52 AM [facility]11-07-[facility] Miscellaneous Notes* Telephone Encounter - Aminah Aranda LPN - 07/17/2024 11:52 AM EST Called and updated patient, scheduled f/u ER visit for 07/18/[address] Cammy Aranda LPN July 17, 2024 11:52 AM * Telephone Encounter - Eduardo Bhardwaj RN - 07/11/2024 8:44 AM EDT Called and left a voicemail for the Patient to call back and ask for a nurse to receive the providers message. Eduardo Bhardwaj RN * Telephone Encounter - Lino Bhandari APRN.CNP - 07/11/2024 7:38 AM EDT INR in therapeutic range. Continue current dose and recheck in 4 weeks. Thank you Lino Bhandari APRN.JOB FOREMAN * Telephone Encounter - Aminah Aranda LPN - 07/10/2024 3:29 PM EDT Last INR: INR (POCT) 2.4 07/10/2024 Current dose of coumadin is:5 mg t,w,th and 2.5mg on all other days.. Last date of dose change: 06/11/2024. Previous INR (date and result): 2.1 Additional Clinical Information or narrative: no Aminah Aranda LPN July 10, 2024 3:32 PM documented in this encounterPromedica [facility]11-04-2024 History of Present illness Narrative* Yelitza Dorantes MA - 07/14/2024 1:21 PM EST POPULATION HEALTH NAVIGATION OUTREACH Action/FYI July 14, 2024 AWV INITIATIVE Reason for Outreach Care Gap/HCC or Scheduling Wellness Visits Care Gaps due: Medicare Annual Wellness Visit Patient Contacted: Unable or unnecessary to reach patient: Flipped existing appointment Updated appointment notes Navigation Signature: Yelitza Dorantes MA July 14, 2024 1:22 PM documented in this encounterPromedica [facility]11-04-2024 History of Present illness Narrative* Marli Elam MA - 07/14/2024 1:10 PM EST POPULATION HEALTH NAVIGATION OUTREACH Action/ CM Pool Message: Type: AC J[facility] [place] [facility] 07/10/24-Dx Colitis, diarrhea We are forwarding this patient to Network Navigation to schedule a [facility] 07/10/24 PCP follow-up appointment. Outcomes: 1st Attempt: Called patient - left message on voice mail and sent AQUA PURE message. Postponed for 2 days Reason for Outreach Community Monitoring/Network Navigator Pools & Phone Line: [facility] Patient Contacted: Unable or unnecessary to reach patient: Left message [employer] message sent Navigation Signature: Marli Elam MA July 14, 2024 1:10 PM * Zora Bhatia RN - 07/14/2024 12:32 PM ESTSummary: ED utilization review per request of payor AC JAVAN RN Patient identified by name and date of . Reason for review or outreach: Chart Review Javan [facility] Emergency Department Utilization REQUESTED ACTION/I: Please see ED Utilization summary below A follow-up appointment is not noted in patient's record. We are forwarding this patient to Network Navigation to schedule a [facility] 07/10/24 PCP follow-up appointment. Thank you Exclusion Criteria - Does not meet exclusion criteria Utilization in past 6 months: # Occurrences Date Last Occurrence Hospital Admission 0 N/A Hospital Observation 0 N/A ED 2-OON 07/10/24 SNF / Acute Rehab / LTAC 0 N/A ED DIAGNOSES/REASON(S) FOR ED USE: [place] [facility] 07/10/24-Dx Colitis, diarrhea [place] [facility] 02/25/24- Dx left leg swelling OTHER FINDINGS/SUMMARY: [place] [facility] 07/10/24 Additional Instructions Your INR today is 2.4. Being on antibiotics can cause this number to change significantly. I would recommend a repeat INR at the beginning of next week. Please advance your diet. Your potassium was slightly low at 3 which is not uncommon given your symptoms. I have wrote for some potassium supplementation over the next several days. Patient Attributed To: CELESTINO Payer: Romaine SORTO Action Taken: Referrals/Routed: Population Health Navigation: Appointment. Router to [facility] [[phone]] Contact made with patient: No, Chart review only. Signature: Zora SHANKS,RN,[facility]LY [facility] [employer] RN [phone] documented in this encounterPromedica Bay [facility] Hospital11-01-2024 Telephone encounter Note * Telephone Encounter - Eduardo Bhardwaj RN - 07/11/2024 8:44 AM EDT Called and left a voicemail for the Patient to call back and ask for a nurse to receive the providers message. Eduardo Bhardwaj RN [facility]11-01-2024 Telephone encounter Note* Telephone Encounter - Lino Bhandari APRN.CNP - 07/11/2024 7:38 AM EDT INR in therapeutic range. Continue current dose and recheck in 4 weeks. Thank you Lino Bhandari APRN.CNP [facility]10-31-20[facility] Telephone encounter Note* Telephone Encounter - Aminah Aranda LPN - 07/10/2024 3:29 PM EDT Last INR: INR (POCT) 2.4 07/10/2024 Current dose of coumadin is:5 mg t,w,th and 2.5mg on all other days.. Last date of dose change: 06/11/2024. Previous INR (date and result): 2.1 Additional Clinical Information or narrative: no Aminah Aranda LPN July 10, 2024 3:32 PM [facility]-16-[facility] History of Present illness Narrative* Palmira Riggins LPN - 06/25/2024 1:58 PM EDT Pt here for injection of b12. Given im in RIGHT DELT. Pt tolerated well. Palmira Riggins LPN documented in this encounterPromedica Bay Park Hospital10-11-2024 History of Present illness Narrative* Lino Bhandari APRN.OREN - 06/20/2024 11:20 AM EDT CC: Patient presents with: Recheck: 3 month follow up, review labs Immunizations: Flu vaccination HPI Yazan Nolasco is a 74 year old male who presents today for routine follow up. DIABETES MELLITUS: Mr. Nolasco denies excessive thirst or increased frequency of urination, chest pain or dyspnea , numbness, tingling or pain in extremities, new or unusual visual symptoms, low sugar/hypoglycemic reactions, weight loss/gain, lightheadedness/dizziness, and bowel changes/loose stools. Follows a diabetic diet most of the time. He is compliant with medication(s) and is tolerating med(s) without any side effects. He reports checking his glucose on a once a day schedule with sugars in the fasting 90s range. Patient's last HgA1C was Hemoglobin A1C (%) Date Value 06/18/2024 5.0 07/23/2023 4.7 08/08/2021 8.2 05/04/2021 9.1 Hemoglobin A1C (POCT) (%) Date Value 03/20/2024 4.8 08/22/2022 6.0 ) Last Ophthalmology exam was over a year ago. Needs to schedule an appointment and is planning on this after his dentures. HTN, paroxysmal a-fib, and HLD: Mr. Nolasco indicates that he is feeling well and denies any symptoms referable to elevated blood pressure. Specifically denies headache, chest pain, palpitations, dyspnea, and peripheral edema. Patient denies any side effects of his medication(s) and is compliant with their regimen. He does check BP's away from this office with average BP's in the 120s/70s range. Yazan works out regularly a few times per week with stationary bicycling. He watches his diet for sodium, low fat and low cholesterol most of the time. 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 Diabetes mellitus (HCC) Diarrhea Dual implantable cardioverter-defibrillator in situ Dyslipidemia Esophageal reflux Ex-smoker History of transfusion Hypothyroidism 11/21/2022 Mononeuritis of unspecified site Obesity, unspecified Other chronic nonalcoholic liver disease Personal history of colonic polyps 03/20/2005 hyperplastic polyps Unspecified essential hypertension PAST SURGICAL HISTORY Procedure Laterality Date BSCAN OS (LEFT EYE) Left CARDIOVERSION 04/30/2023 COLONOSCOPY FLX DX W/COLLJ SPEC WHEN PFRMD 03/20/2005 Colonoscopy COLONOSCOPY FLX DX W/COLLJ SPEC WHEN PFRMD 06/15/2015 Colonoscopy [facility] out pt ENDOSCOPY PROC 08/2018 ESOPHAGOGASTRODUODENOSCOPY TRANSORAL DIAGNOSTIC 06/15/2015 EGD [facility] out pt EXCISION PILONIDAL CYST/SINUS SIMPLE 01/19/2003 Excision pilonidal cyst PACEMAKER SURGERY 03/11/2012 pacer/defib PACEMAKER SURGERY 09/17/2018 PAST SURGICAL HISTORY OF 09/16/2012 eye surgery, s/p Plaque OS PRO SMART PILL CAPSULE PROC ([id number]) 10/15/2018 REMOVAL GALLBLADDER 06/10/2021 REMOVE PACEMAKER SYSTEM 09/17/2018 replaced it all RPR UMBILICAL HERNIA < 5 YRS REDUCIBLE 02/17/1999 Hernia repair, umbilical ALLERGIES Patient has no known allergies. MEDICATIONS warfarin (COUMADIN) 2.5 mg tablet TAKE 1 TABLET BY MOUTH ONCE DAILY OR DIRECTED gabapentin (NEURONTIN) 600 mg tablet Take 1 tablet by mouth daily at bedtime for 180 days. warfarin (COUMADIN) 5 mg tablet Take 1 tablet by mouth once daily. tamsulosin (FLOMAX) 0.4 mg Take 2 capsules by mouth once daily. semaglutide (OZEMPIC) 2 mg/dose (8 mg/3 mL) pen injector Inject 2 mg subcutaneously one time a week. metoprolol tartrate, short acting, (LOPRESSOR) 100 mg tablet Take 1 tablet by mouth two times a day. allopurinol (ZYLOPRIM) 100 mg tablet Take 2 tablets by mouth once daily. DULoxetine (CYMBALTA) 60 mg capsule Take 1 capsule by mouth once daily. insulin glargine (LANTUS SOLOSTAR U-100 INSULIN) 100 unit/mL (3 mL) Inject 25 Units subcutaneously daily at bedtime. levothyroxine (SYNTHROID) 50 mcg tablet TAKE 1 TABLET BY MOUTH ONCE DAILY ON AN EMPTY STOMACH FOR THYROID potassium chloride (KLOR-CON 10) 10 mEq tablet Take 1 tablet by mouth two times a day. magnesium oxide (MAGOX) 400 mg (241.3 mg magnesium) tablet Take 1 tablet by mouth two times a day. ferrous sulfate 325 mg (65 mg iron) tablet Take 1 tablet by mouth every Sunday, Sunday, and Sunday. amLODIPine (NORVASC) 5 mg tablet Take 1 tablet by mouth once daily. lovastatin (MEVACOR) 20 mg tablet Take 1 tablet by mouth every other day. apremilast (OTEZLA) 30 mg tablet Take 1 tablet by mouth twice daily. clobetasol (TEMOVATE) 0.05 % cream APPLY TO THE AFFECTED FLARES ON THE HANDS TWICE DAILY FOR 2 WEEKS THEN TAKE A WEEK OFF BEFORE RESUMING. lisinopril (ZESTRIL, PRINIVIL) 40 mg tablet Take 1 tablet by mouth once daily. acetaminophen (TYLENOL) 500 mg tablet Take 500 mg by mouth as needed. LILO PEN NEEDLE 32 gauge x ndle USE TWICE DAILY WITH INSULIN DOSE Blood Sugar Diagnostic, Drum (ACCU-CHEK COMPACT TEST) strp Test blood sugar(s) 4 times daily. Dx: DM 250 Insulin: Yes Lancets (ACCU-CHEK SOFTCLIX LANCETS) Misc lancets three times daily as needed. Dx. 250.00 FAMILY HISTORY Problem Relation Age of Onset Heart Mother of CHF at 91 Stroke Mother Hypertension Mother other (Other) Father at 87 of a brain aneurysm Hypertension Brother Stroke Brother Heart Brother Goiter Maternal Grandmother Aneurysm Maternal Grandfather brain No Ocular Disease Other Colon Cancer No Family History Social History Tobacco Use Smoking status: Former Current packs/day: 0.00 Average packs/day: 1 pack/day for 40.0 years (40.0 ttl pk-yrs) Types: Cigarettes Start date: 03/26/1969 Quit date: 03/26/2009 Years since quittin.2 Smokeless tobacco: Never Vaping Use Vaping status: Never Used Substance Use Topics Alcohol use: Not Currently Comment: 1991 Drug use: Not Currently PHYSICAL EXAM BP 130/78 Pulse 72 Resp 16 Wt 113.9 kg (251 lb) SpO2 96% BMI 37.60 kg/m General Appearance: well appearing, in no acute distress, alert Pysch: mood and affect broad and appropriate Eyes: conjunctiva pink and moist, no icterus, sclera white, non-injected Lungs: Lungs clear to auscultation. No wheezing, rhonchi, rales. Heart: RRR without murmur, gallop, or rubs. No ectopy Extremities: No deformities, edema, skin discoloration, clubbing or cyanosis. Good capillary refill. Feet:Shoes and socks removed, normal distal pulses, not sensitive to monofilament bilaterally and vibratory perception decreased bilaterally Health maintenance reviewed with patient: Anxiety Screening Never done Dilated Retinal Exam due on 11/24/2022 Diabetic Foot Exam due on 11/22/2023 Influenza Vaccine(1) due on 05/11/2024 Covid-19 Vaccine( season) due on 05/11/2024 DTaP,Tdap,Td Vaccine(3 - Td or Tdap) due on 09/27/2024 Hepatitis B Vaccine(1 of 3 - Risk 3-dose series) due on 09/27/2024 Shingrix Vaccine(1 of 2) due on 09/27/2024 HbA1C due on 12/17/2024 Annual PCP Team Chronic Disease Visit due on 03/20/2025 BP Controlled (<130/80) due on 03/20/2025 LDL Cholesterol due on 06/18/2025 Serum Creatinine due on 06/18/2025 Colorectal Cancer Screening due on 02/04/2034 Abdominal Aortic Aneurysm Screening Completed Advance Directive Discussion Completed RSV Vaccine Completed Hepatitis C Screening Completed Pneumococcal Vaccine: 65+ Completed HPV Vaccine Aged Out Urine Albumin:Creatinine Ratio Discontinued DATA REVIEWED: Most recent labs ASSESSMENT/PLAN: 1. Type 2 diabetes mellitus with diabetic mononeuropathy, with long-term current use of insulin (HCC) - ICD9: 250.60, 355.9, V58.67, ICD10: E11.41, Z79.4 (primary diagnosis) - Controlled - Continue current medications - Blood glucose monitoring on a twice daily schedule - Counseled on healthy diet and regular exercise - Discussed need for and benefit of weight loss. BMI 37.60 kg/(m^2) - LANTUS SOLOSTAR U-100 INSULIN 100 UNIT/ML (3 ML) SUBCUTANEOUS PEN - HEMOGLOBIN A1C - BASIC METABOLIC PANEL - COMPLETE BLOOD COUNT AND DIFFERENTIAL 2. Essential hypertension - ICD9: 401.9, ICD10: I10 - Controlled - Continue current medications - Recommend home blood pressure monitoring, to bring results to next visit - Encouraged sodium restriction, DASH or Mediterranean diet - Recommend regular aerobic exercise - BASIC METABOLIC PANEL - COMPLETE BLOOD COUNT AND DIFFERENTIAL 3. Paroxysmal atrial fibrillation (HCC) - ICD9: 427.31, ICD10: I48.0 Stable, asymptomatic and apical regular in office - AMLODIPINE 5 MG TABLET - BASIC METABOLIC PANEL - COMPLETE BLOOD COUNT AND DIFFERENTIAL 4. Pure hypercholesterolemia - ICD9: 272.0, ICD10: E78.00 Controlled - Continue current medications - Recommend home blood pressure monitoring, to bring results to next visit - Encouraged low fat or Mediterranean diet - Recommend regular aerobic exercise - LOVASTATIN 20 MG TABLET 5. Need for influenza vaccination - ICD9: V04.81, ICD10: Z23 - INFLUENZA VACCINE, PRSV FREE, AGE 65+ YR, HIGH DOSE, TRIVALENT (FLUZONE HIGH-DOSE) Prescription instructions reviewed with patient as applicable. Potential red flag symptoms discussed with the patient. Reviewed appropriate action plan to take if red flag symptoms occur. Patient agreeable to treatment plan. Lino Bhandari APRN.CNP documented in [facility] encounterProm[facility] Telephone encounter Note * Telephone Encounter - Shelia Charles MA - 06/11/2024 7:10 PM EDT Patient notified. [facility]10-[facility] Miscellaneous Notes* Telephone Encounter - Shelia Charles MA - 06/11/2024 7:10 PM EDT Patient notified. * Telephone Encounter - Lino Bhandari APRN.CNP - 06/11/2024 6:59 PM EDT Inr in therapeutic range. Continue current dose and recheck in 4 weeks. Thank you Lino Bhandari APRN.CNP * Telephone Encounter - Cyndi Zuluaga LPN - 06/11/2024 1:58 PM EDT Last INR: INR (POCT) 2.1 06/11/2024 Current dose of coumadin is: 5 mg t,w,th amd 2.5mg on all other days.. Last date of dose change: 05/21/24. Previous INR (date and result): 2.0 05/21/24 Additional Clinical Information or narrative: no documented in this encounterProm[facility]10-02-[facility]24 Telephone encounter Note * Telephone Encounter - Lino Bhandari APRN.CNP - 06/11/2024 6:59 PM EDT Inr in therapeutic range. Continue current dose and recheck in 4 weeks. Thank you Lino Bhandari APRN.CNP [facility] Telephone encounter Note* Telephone Encounter - Cyndi Zuluaga LPN - 06/11/2024 1:58 PM EDT Last INR: INR (POCT) 2.1 06/11/2024 Current dose of coumadin is: 5 mg t,w,th amd 2.5mg on all other days.. Last date of dose change: 05/21/24. Previous INR (date and result): 2.0 05/21/24 Additional Clinical Information or narrative: no T [facility]09-24-2024 Telephone encounter Note* Telephone Encounter - Cheryle Degroot LPN - 06/03/2024 10:57 AM EDT Prescription Refill Information The patient has been identified by name and date of : Yes Caregiver verified no other encounters exist for this prescription request: Yes Caregiver confirmed with patient/requestor that no other refills are due, in the near future, with this provider at this time: Yes The last office visit in the department: 03/20/24 Does the patient have a future office visit with this provider/department: Yes 06/20/24 Requested Prescriptions Pending Prescriptions Disp Refills gabapentin (NEURONTIN) 600 mg tablet 90 tablet 1 Sig: Take 1 tablet by mouth daily at bedtime for 180 days. Cheryle Degroot LPN June 03, 2024 10:57 AM [facility]09-24-2024 Miscellaneous Notes* Telephone Encounter - Cheryle Degroot LPN - 06/03/2024 10:57 AM EDT Prescription Refill Information The patient has been identified by name and date of : Yes Caregiver verified no other encounters exist for this prescription request: Yes Caregiver confirmed with patient/requestor that no other refills are due, in the near future, with this provider at this time: Yes The last office visit in the department: 03/20/24 Does the patient have a future office visit with this provider/department: Yes 06/20/24 Requested Prescriptions Pending Prescriptions Disp Refills gabapentin (NEURONTIN) 600 mg tablet 90 tablet 1 Sig: Take 1 tablet by mouth daily at bedtime for 180 days. Cheryle Degroot LPN June 03, 2024 10:57 AM documented in this encounterPromed[facility]09-24-2024 Telephone encounter Note * Telephone Encounter - Cheryle Degroot LPN - 06/03/2024 10:55 AM EDT Prescription Refill Information The patient has been identified by name and date of : Yes Caregiver verified no other encounters exist for this prescription request: Yes Caregiver confirmed with patient/requestor that no other refills are due, in the near future, with this provider at this time: Yes The last office visit in the department: 03/20/24 Does the patient have a future office visit with this provider/department: Yes 06/20/24 Requested Prescriptions Pending Prescriptions Disp Refills warfarin (COUMADIN) 2.5 mg tablet 90 tablet 0 Sig: TAKE 1 TABLET BY MOUTH ONCE DAILY OR DIRECTED Cheryle Degroot LPN June 03, 2024 10:55 AM [facility]09-24-[facility]24 Miscellaneous Notes* Telephone Encounter - Cheryle Degroot LPN - 06/03/2024 10:55 AM EDT Prescription Refill Information The patient has been identified by name and date of : Yes Caregiver verified no other encounters exist for this prescription request: Yes Caregiver confirmed with patient/requestor that no other refills are due, in the near future, with this provider at this time: Yes The last office visit in the department: 03/20/24 Does the patient have a future office visit with this provider/department: Yes 06/20/24 Requested Prescriptions Pending Prescriptions Disp Refills warfarin (COUMADIN) 2.5 mg tablet 90 tablet 0 Sig: TAKE 1 TABLET BY MOUTH ONCE DAILY OR DIRECTED Cheryle Degroot LPN June 03, 2024 10:55 AM documented in this encounterPromed[facility]09-18-2024 History of Present illness Narrative* Palmira Riggins LPN - 05/28/2024 1:59 PM EDT Pt here for injection of B12. Given IM in right delt. Pt tolerated well. Palmira Riggins LPN documented in this encounterPromedica [facility]09-17-2024 Telephone encounter Note * Telephone Encounter - Lillian Bo MA - 05/27/2024 9:24 AM EDT Prescription Refill Information The patient has been identified by name and date of : Yes Caregiver verified no other encounters exist for this prescription request: Yes Caregiver confirmed with patient/requestor that no other refills are due, in the near future, with this provider at this time: Yes The last office visit in the department: 03/20/24 Does the patient have a future office visit with this provider/department: Yes Requested Prescriptions Pending Prescriptions Disp Refills warfarin (COUMADIN) 5 mg tablet 30 tablet 11 Sig: Take 1 tablet by mouth once daily. Lillian Bo MA May 27, 2024 9:24 AM [facility]09-17-[facility] Miscellaneous Notes* Telephone Encounter - Lillian Bo MA - 05/27/2024 9:24 AM EDT Prescription Refill Information The patient has been identified by name and date of : Yes Caregiver verified no other encounters exist for this prescription request: Yes Caregiver confirmed with patient/requestor that no other refills are due, in the near future, with this provider at this time: Yes The last office visit in the department: 03/20/24 Does the patient have a future office visit with this provider/department: Yes Requested Prescriptions Pending Prescriptions Disp Refills warfarin (COUMADIN) 5 mg tablet 30 tablet 11 Sig: Take 1 tablet by mouth once daily. Lillian Bo MA May 27, 2024 9:24 AM documented in this encounterPromed[facility]09-11-2024 Telephone encounter Note * Telephone Encounter - Lino Bhandari APRN.OREN - 05/21/2024 1:42 PM EDT Inr in therapeutic range. Continue current treatment and recheck in 4 weeks. Thank you Lino Bhandari APRN.CNP [facility]09-11-2024 Miscellaneous Notes* Telephone Encounter - Lino Bhandari APRN.CNP - 05/21/2024 1:42 PM EDT Inr in therapeutic range. Continue current treatment and recheck in 4 weeks. Thank you Lino Bhandari APRN.CNP * Telephone Encounter - Lillian Bo MA - 05/21/2024 1:12 PM EDT PT INR Date Value Ref Range Status 05/21/2024 2.0 2 - 3 Final Patient currently taking 5 mg T,W,TH; 2.5 mg all other days. Lillian Bo MA documented in this encounterProm[facility]09-11-2024 Telephone encounter Note * Telephone Encounter - Lillian Bo MA - 05/21/2024 1:12 PM EDT PT INR Date Value Ref Range Status 05/21/2024 2.0 2 - 3 Final Patient currently taking 5 mg T,W,TH; 2.5 mg all other days. Lillian Bo MA [facility] Telephone encounter Note* Telephone Encounter - Lillian Higginbotham - 05/13/2024 10:00 AM EDT Prescription Refill Information The patient has been identified by name and date of : Yes Caregiver verified no other encounters exist for this prescription request: Yes Caregiver confirmed with patient/requestor that no other refills are due, in the near future, with this provider at this time: Yes The last office visit in the department: 03/20/24 Does the patient have a future office visit with this provider/department: Yes Requested Prescriptions Pending Prescriptions Disp Refills tamsulosin (FLOMAX) 0.4 mg 180 capsule 1 Sig: Take 2 capsules by mouth once daily. semaglutide (OZEMPIC) 2 mg/dose (8 mg/3 mL) pen injector 9 mL 1 Sig: Inject 2 mg subcutaneously one time a week. metoprolol tartrate, short acting, (LOPRESSOR) 100 mg tablet 180 tablet 3 Sig: Take 1 tablet by mouth two times a day. Lillian Ruiz May 13, 2024 10:00 AM [facility]09-03-2024 Miscellaneous Notes* Telephone Encounter - Lillian Higginbotham - 05/13/2024 10:00 AM EDT Prescription Refill Information The patient has been identified by name and date of : Yes Caregiver verified no other encounters exist for this prescription request: Yes Caregiver confirmed with patient/requestor that no other refills are due, in the near future, with this provider at this time: Yes The last office visit in the department: 03/20/24 Does the patient have a future office visit with this provider/department: Yes Requested Prescriptions Pending Prescriptions Disp Refills tamsulosin (FLOMAX) 0.4 mg 180 capsule 1 Sig: Take 2 capsules by mouth once daily. semaglutide (OZEMPIC) 2 mg/dose (8 mg/3 mL) pen injector 9 mL 1 Sig: Inject 2 mg subcutaneously one time a week. metoprolol tartrate, short acting, (LOPRESSOR) 100 mg tablet 180 tablet 3 Sig: Take 1 tablet by mouth two times a day. Lillian Ruiz May 13, 2024 10:00 AM documented in this encounterPromedica [facility]08-29-2024 Telephone encounter Note * Telephone Encounter - Dee Ashley MD - 05/08/2024 7:07 AM EDT Cont the same, Recheck in a month Regards, Dee Ashley MD' [facility]08-29-2024 Miscellaneous Notes* Telephone Encounter - Dee Ashley MD - 05/08/2024 7:07 AM EDT Cont the same, Recheck in a month Regards, Dee Ashley MD' * Telephone Encounter - Aminah Aranda LPN - 05/07/2024 1:53 PM EDT Last INR: INR (POCT) 2.0 05/07/2024 Current dose of coumadin is: 5 mg T,W,Th and 2.5 all other days. . Last date of dose change:.04/24/2024 Previous INR (date and result): 2.6 Additional Clinical Information or narrative: no documented in this encounterPromedica [facility]08-28-2024 Telephone encounter Note * Telephone Encounter - Aminah Aranda LPN - 05/07/2024 1:53 PM EDT Last INR: INR (POCT) 2.0 05/07/2024 Current dose of coumadin is: 5 mg T,W,Th and 2.5 all other days. . Last date of dose change:.04/24/2024 Previous INR (date and result): 2.6 Additional Clinical Information or narrative: no [facility] Nurse Note* Palmira Riggins LPN - 04/30/2024 3:22 PM EDT Pt here for injection of B12. Given IM in left delt. Pt tolerated well. Palmira Riggins LPN [facility]08-21-[facility] Nurse Note* Palmira Riggins LPN - 04/30/2024 3:22 PM EDT Pt here for injection of B12. Given IM in left delt. Pt tolerated well. Palmira Riggins LPN documented in this encounterPromedica [facility]08-15-2024 Telephone encounter Note * Telephone Encounter - Shelia Charles MA - 04/24/2024 2:45 PM EDT Patient notified. [facility] Miscellaneous Notes* Telephone Encounter - Shelia Charles MA - 04/24/2024 2:45 PM EDT Patient notified. * Telephone Encounter - Lino Bhandari APRN.CNP - 04/24/2024 2:18 PM EDT Continue current dosing. INR in therapeutic range. Green foods are ok but you have to consistently eat them in similar amount every day so coumadin can stay dosed appropriately. Recheck in 2 weeks since diet has changed. Thank you Lino Bhandari APRN.OREN * Telephone Encounter - Freda Guerra LPN - 04/23/2024 10:33 AM EDT Left message for patient to call back to give below information about his coumadin Last INR: INR (POCT) 2.6 04/16/2024 Current dose of coumadin is: 5 mg T,W,Th and 2.5 all other days. Last date of dose change: 03/12/24. Previous INR (date and result): 04/16/24 2.6 Additional Clinical Information or narrative: no missed doses but has been eating a lot out of the garden. More greens documented in this encounterPromedica [facility]08-15-2024 Telephone encounter Note * Telephone Encounter - Lino Bhandari APRN.CNP - 04/24/2024 2:18 PM EDT Continue current dosing. INR in therapeutic range. Green foods are ok but you have to consistently eat them in similar amount every day so coumadin can stay dosed appropriately. Recheck in 2 weeks since diet has changed. Thank you Lino Bhandari APRN.OREN [facility]08-14-2024 Telephone encounter Note* Telephone Encounter - Freda Guerra LPN - 04/23/2024 10:33 AM EDT Left message for patient to call back to give below information about his coumadin Last INR: INR (POCT) 2.6 04/16/2024 Current dose of coumadin is: 5 mg T,W,Th and 2.5 all other days. Last date of dose change: 03/12/24. Previous INR (date and result): 04/16/24 2.6 Additional Clinical Information or narrative: no missed doses but has been eating a lot out of the garden. More haritha [facility]08-07-[facility] Telephone encounter Note* Telephone Encounter - Geovanna Oliver LPN - 04/16/2024 4:15 PM EDT Spoke with pt and information listed below given. Pt verbalizes understanding. Tracker updated. Geovanna Oliver LPN [facility]08-07-2024 Miscellaneous Notes* Telephone Encounter - Geovanna Oliver LPN - 04/16/2024 4:15 PM EDT Spoke with pt and information listed below given. Pt verbalizes understanding. Tracker updated. Geovanna Oliver LPN * Telephone Encounter - Lino Bhandari APRN.CNP - 04/16/2024 3:20 PM EDT INR therapeutic. Continue current dose and recheck in 4 weeks. Thank you Lino Bhandari APRN.OREN * Telephone Encounter - Lillian Bo MA - 04/16/2024 9:24 AM EDT PT INR Date Value Ref Range Status 04/16/2024 2.6 2 - 3 Final Pt currently taking 5 mg T, W, TH; 2.5 mg all other days. Lillian Bo MA documented in this encounterPromedica [facility]08-07-2024 Telephone encounter Note * Telephone Encounter - Lino Bhandari APRN.CNP - 04/16/2024 3:20 PM EDT INR therapeutic. Continue current dose and recheck in 4 weeks. Thank you Lino Bhandari APRN.JOB FOREMAN [facility]-07-[facility] Telephone encounter Note* Telephone Encounter - Lillian Bo MA - 04/16/2024 9:24 AM EDT PT INR Date Value Ref Range Status 04/16/2024 2.6 2 - 3 Final Pt currently taking 5 mg T, W, TH; 2.5 mg all other days. Lillian Bo MA [facility]08-05-[facility] Telephone encounter Note* Telephone Encounter - Lillian Bo MA - 04/14/2024 1:08 PM EDT Prescription Refill Information The patient has been identified by name and date of : Yes Caregiver verified no other encounters exist for this prescription request: Yes Caregiver confirmed with patient/requestor that no other refills are due, in the near future, with this provider at this time: Yes The last office visit in the department: 03/20/24 Does the patient have a future office visit with this provider/department: Yes Requested Prescriptions Pending Prescriptions Disp Refills allopurinol (ZYLOPRIM) 100 mg tablet 180 tablet 3 Sig: Take 2 tablets by mouth once daily. Lillian Bo MA April 14, 2024 1:10 PM [facility]08-05-2024 Miscellaneous Notes* Telephone Encounter - Lillian Bo MA - 04/14/2024 1:08 PM EDT Prescription Refill Information The patient has been identified by name and date of : Yes Caregiver verified no other encounters exist for this prescription request: Yes Caregiver confirmed with patient/requestor that no other refills are due, in the near future, with this provider at this time: Yes The last office visit in the department: 03/20/24 Does the patient have a future office visit with this provider/department: Yes Requested Prescriptions Pending Prescriptions Disp Refills allopurinol (ZYLOPRIM) 100 mg tablet 180 tablet 3 Sig: Take 2 tablets by mouth once daily. Lillian Bo MA April 14, 2024 1:10 PM documented in this encounterPromedica [facility]07-24-2024 History of Present illness Narrative* Palmira Riggins LPN - 04/02/2024 1:57 PM EDT Pt here for injection of B12. Given IM in right delt. Pt tolerated well. Palmira Riggins LPN documented in this encounterPromedica [facility]07-17-2024 Telephone encounter Note * Telephone Encounter - Ngoc Love LPN - 03/26/2024 2:47 PM EDT Patient notified and voiced his understanding. [facility] Miscellaneous Notes* Telephone Encounter - Ngoc Love LPN - 03/26/2024 2:47 PM EDT Patient notified and voiced his understanding. * Telephone Encounter - Lino Bhandari APRN.CNP - 03/26/2024 1:50 PM EDT In range. Continue current dosing and recheck in 4 weeks. Thank you Lino Bhandari APRN.CNP * Telephone Encounter - Lillian Bo MA - 03/26/2024 1:25 PM EDT PT INR Date Value Ref Range Status 03/26/2024 2.6 2 - 3 Final Pt currently taking 5 mg T, W, TH; 2.5 mg all other days. Lillian Bo MA documented in this encounterPromedica [facility]07-17-2024 Telephone encounter Note * Telephone Encounter - Lino Bhandari APRN.CNP - 03/26/2024 1:50 PM EDT In range. Continue current dosing and recheck in 4 weeks. Thank you Lino Bhandari APRN.CNP [facility] Telephone encounter Note* Telephone Encounter - Lillian Bo MA - 03/26/2024 1:25 PM EDT PT INR Date Value Ref Range Status 03/26/2024 2.6 2 - 3 Final Pt currently taking 5 mg T, W, TH; 2.5 mg all other days. Lillian Bo MA [facility] History of Present illness Narrative* Lino Bhandari APRN.JOB FOREMAN - 03/20/2024 10:25 AM EDT CC: Patient presents with: Recheck: 3 month follow up HPI Yazan Nolasco is a 73 year old male who presents today for routine follow up. DIABETES MELLITUS: Mr. Nolasco denies excessive thirst or increased frequency of urination, chest pain or dyspnea , numbness, tingling or pain in extremities, new or unusual visual symptoms, low sugar/hypoglycemic reactions, weight loss/gain, lightheadedness/dizziness, and bowel changes/loose stools. Follows a diabetic diet most of the time. He is compliant with medication(s) and is tolerating med(s) without any side effects. He reports checking his glucose on a twice a day schedule with sugarsin the 90s-140s range. Not always taken fasting or 2 hours after a meail. Patient's last HgA1C was Hemoglobin A1C (%) Date Value 07/23/2023 4.7 04/20/2023 4.7 08/08/2021 8.2 05/04/2021 9.1 Hemoglobin A1C (POCT) (%) Date Value 08/22/2022 6.0 10/10/2021 4.8 ) Last Ophthalmology exam was over a year ago and needs to schedule with Dr. Azar. HTN CAD and A-fib: Mr. Nolasco indicates that he is feeling well and denies any symptoms referable to elevated blood pressure. Specifically denies headache, chest pain, change in chronic palpitations, change in chronic dyspnea on exertion, or peripheral edema. Patient denies any side effects of his medication(s) and is compliant with their regimen. He does check BP's away from this office with average BP's in the 120/70s range. Yazan denies regular aerobic exercise. He watches his diet for sodium, low fat and low cholesterol most of the time. On retirement coumadin and denies any abnormal bleeding. Gets pacemaker interrogated monthly without issue. 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 Diabetes mellitus (HCC) Diarrhea Dual implantable cardioverter-defibrillator in situ Dyslipidemia Esophageal reflux Ex-smoker History of transfusion Hypothyroidism 11/21/2022 Mononeuritis of unspecified site Obesity, unspecified Other chronic nonalcoholic liver disease Personal history of colonic polyps 03/20/2005 hyperplastic polyps Unspecified essential hypertension PAST SURGICAL HISTORY Procedure Laterality Date BSCAN OS (LEFT EYE) Left CARDIOVERSION 04/30/2023 COLONOSCOPY FLX DX W/COLLJ SPEC WHEN PFRMD 03/20/2005 Colonoscopy COLONOSCOPY FLX DX W/COLLJ SPEC WHEN PFRMD 06/15/2015 Colonoscopy [facility] out pt ENDOSCOPY PROC 08/2018 ESOPHAGOGASTRODUODENOSCOPY TRANSORAL DIAGNOSTIC 06/15/2015 EGD [facility] out pt EXCISION PILONIDAL CYST/SINUS SIMPLE 01/19/2003 Excision pilonidal cyst PACEMAKER SURGERY 03/11/2012 pacer/defib PACEMAKER SURGERY 09/17/2018 PAST SURGICAL HISTORY OF 09/16/2012 eye surgery, s/p Plaque OS PRO SMART PILL CAPSULE PROC ([id number]) 10/15/2018 REMOVAL GALLBLADDER 06/10/2021 REMOVE PACEMAKER SYSTEM 09/17/2018 replaced it all RPR UMBILICAL HERNIA < 5 YRS REDUCIBLE 02/17/1999 Hernia repair, umbilical ALLERGIES Patient has no known allergies. MEDICATIONS DULoxetine (CYMBALTA) 60 mg capsule Take 1 capsule by mouth once daily. levothyroxine (SYNTHROID) 50 mcg tablet TAKE 1 TABLET BY MOUTH ONCE DAILY ON AN EMPTY STOMACH FOR THYROID insulin glargine (LANTUS SOLOSTAR U-100 INSULIN) 100 unit/mL (3 mL) Inject 30 Units subcutaneously daily at bedtime. warfarin (COUMADIN) 2.5 mg tablet TAKE 1 TABLET BY MOUTH ONCE DAILY OR DIRECTED tamsulosin (FLOMAX) 0.4 mg Take 2 capsules by mouth once daily. gabapentin (NEURONTIN) 600 mg tablet Take 1 tablet by mouth daily at bedtime for 180 days. potassium chloride (KLOR-CON 10) 10 mEq tablet Take 1 tablet by mouth two times a day. magnesium oxide (MAGOX) 400 mg (241.3 mg magnesium) tablet Take 1 tablet by mouth two times a day. semaglutide (OZEMPIC) 2 mg/dose (8 mg/3 mL) pen injector Inject 2 mg subcutaneously one time a week. ferrous sulfate 325 mg (65 mg iron) tablet Take 1 tablet by mouth every Sunday, Sunday, and Sunday. amLODIPine (NORVASC) 5 mg tablet Take 1 tablet by mouth once daily. lovastatin (MEVACOR) 20 mg tablet Take 1 tablet by mouth every other day. metoprolol tartrate, short acting, (LOPRESSOR) 100 mg tablet Take 1 tablet by mouth twice daily. apremilast (OTEZLA) 30 mg tablet Take 1 tablet by mouth twice daily. allopurinol (ZYLOPRIM) 100 mg tablet Take 2 tablets by mouth once daily. warfarin (COUMADIN) 5 mg tablet Take 1 tablet by mouth once daily. clobetasol (TEMOVATE) 0.05 % cream APPLY TO THE AFFECTED FLARES ON THE HANDS TWICE DAILY FOR 2 WEEKS THEN TAKE A WEEK OFF BEFORE RESUMING. lisinopril (ZESTRIL, PRINIVIL) 40 mg tablet Take 1 tablet by mouth once daily. acetaminophen (TYLENOL) 500 mg tablet Take 500 mg by mouth as needed. LILO PEN NEEDLE 32 gauge x 5/32 ndle USE TWICE DAILY WITH INSULIN DOSE Blood Sugar Diagnostic, Drum (ACCU-CHEK COMPACT TEST) strp Test blood sugar(s) 4 times daily. Dx: DM 250 Insulin: Yes Lancets (ACCU-CHEK SOFTCLIX LANCETS) Misc lancets three times daily as needed. Dx. 250.00 FAMILY HISTORY Problem Relation Age of Onset Heart Mother of CHF at 91 Stroke Mother Hypertension Mother other (Other) Father at 87 of a brain aneurysm Hypertension Brother Stroke Brother Heart Brother Goiter Maternal Grandmother Aneurysm Maternal Grandfather brain No Ocular Disease Other Colon Cancer No Family History Social History Tobacco Use Smoking status: Former Packs/day: 1.00 Years: 40.00 Additional pack years: 0.00 Total pack years: 40.00 Types: Cigarettes Quit date: 03/26/2009 Years since quittin.9 Smokeless tobacco: Never Vaping Use Vaping Use: Never used Substance Use Topics 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 No wheezing, rhonchi, rales. Heart: RRR without murmur, gallop, or rubs. No ectopy Health maintenance reviewed with patient: Lung Cancer Screening Never done Dilated Retinal Exam due on 11/24/2022 Diabetic Foot Exam due on 11/22/2023 HbA1C due on 01/21/2024 DTaP,Tdap,Td Vaccine(3 - Td or Tdap) due on 09/27/2024 Hepatitis B Vaccine(1 of 3 - Risk 3-dose series) due on 09/27/2024 Shingrix Vaccine(1 of 2) due on 09/27/2024 Covid-19 Vaccine( season) due on 09/27/2024 Influenza Vaccine(1) due on 05/11/2024 LDL Cholesterol due on 08/20/2024 Annual PCP Team Chronic Disease Visit due on 11/08/2024 Serum Creatinine due on 03/17/2025 BP Controlled (<130/80) due on 03/18/2025 Colorectal Cancer Screening due on 02/04/2034 Abdominal Aortic Aneurysm Screening Completed Advance Directive Discussion Completed RSV Vaccine Completed Hepatitis C Screening Completed Pneumococcal Vaccine: 65+ Completed HPV Vaccine Aged Out Urine Albumin:Creatinine Ratio Discontinued DATA REVIEWED: Most recent labs ASSESSMENT/PLAN: 1. Type 2 diabetes mellitus with diabetic mononeuropathy, with long-term current use of insulin (HCC) - ICD9: 250.60, 355.9, V58.67, ICD10: E11.41, Z79.4 (primary diagnosis) - Controlled - Continue current medications but with the lower A1c will decrease lantus again - uses a can for gait disorder so need to prevent low blood sugars - Blood glucose monitoring on a once daily schedule - Counseled on healthy diet and regular exercise - Discussed need for and benefit of weight loss. BMI 34.76 kg/(m^2) - HEMOGLOBIN A1C (POC) - LANTUS SOLOSTAR U-100 INSULIN 100 UNIT/ML (3 ML) SUBCUTANEOUS PEN - LANTUS SOLOSTAR U-100 INSULIN 100 UNIT/ML (3 ML) SUBCUTANEOUS PEN - COMPREHENSIVE METABOLIC PANEL - HEMOGLOBIN A1C - COMPLETE BLOOD COUNT AND DIFFERENTIAL 2. Paroxysmal atrial fibrillation (HCC) - ICD9: 427.31, ICD10: I48.0 Stable Continue current medications and recommendations by cardiology 3. Essential hypertension - ICD9: 401.9, ICD10: I10 - Controlled - Continue current medications - Recommend home blood pressure monitoring, to bring results to next visit - Encouraged sodium restriction, DASH or Mediterranean diet - Recommend regular aerobic exercise - COMPREHENSIVE METABOLIC PANEL - COMPLETE BLOOD COUNT AND DIFFERENTIAL 4. Coronary artery disease involving [place] coronary artery of [place] heart without angina pectoris- ICD9: 414.01, ICD10: I25.10 Stable Continue current medications and recommendations by cardiology 5. Pure hypercholesterolemia - ICD9: 272.0, ICD10: E78.00 Due for lab work Continue current medications and recommendations by cardiology - LIPID PANEL BASIC - COMPREHENSIVE METABOLIC PANEL Prescription instructions reviewed with patient as applicable. Potential red flag symptoms discussed with the patient. Reviewed appropriate action plan to take if red flag symptoms occur. Patient agreeable to treatment plan. Lino Bhandari APRN.CNP Medical Decision Making: Problems: Moderate: 2+ stable chronic illnesses Data: Unique test(s) ordered: 3+ Risk: Low: Low risk from testing/treatment Moderate: Drug management Medical Decision Making Level: 4 - Moderate documented in [facility] encounterProm[facility] Telephone encounter Note * Telephone Encounter - Lillian Bo MA - 03/19/2024 2:51 PM EDT Patient notified and verbalized understanding. Lillian Bo MA [facility]07-[facility] Miscellaneous Notes* Telephone Encounter - Lillian Bo MA - 03/19/2024 2:51 PM EDT Patient notified and verbalized understanding. Lillian Bo MA * Telephone Encounter - Lino Bhandari APRN.CNP - 03/19/2024 2:42 PM EDT Currently in range. Continue current dose and recheck in 2 weeks as the last dosage change was 1 week ago. Thank you Lino Bhandari APRN.CNP * Telephone Encounter - Lillian Bo MA - 03/19/2024 1:31 PM EDT PT INR Date Value Ref Range Status 03/19/2024 2.9 2 - 3 Final Pt currently taking 5 mg Tu, Sun, , 2.5 mg all other days. Please review and advise. Lillian Bo MA documented in this encounterProm[facility]07-[facility]24 Telephone encounter Note * Telephone Encounter - Lino Bhandari APRN.CNP - 03/19/2024 2:42 PM EDT Currently in range. Continue current dose and recheck in 2 weeks as the last dosage change was 1 week ago. Thank you Lino Bhandari APRN.JOB FOREMAN [facility]07-10-[facility] Telephone encounter Note* Telephone Encounter - Lillian Bo MA - 03/19/2024 1:31 PM EDT PT INR Date Value Ref Range Status 03/19/2024 2.9 2 - 3 Final Pt currently taking 5 mg Tues, Wed, , 2.5 mg all other days. Please review and advise. Lillian Bo MA [facility]07-[facility] History of Present illness Narrative* Vilma Philip APRN.OREN - 03/18/2024 10:06 AM EDT Chief Complaint Patient presents with: Established Patient HPI: Yazan Nolasco is a 73 year old male who presents here today for follow up ZORAIDA. Per Darya Gleason's previous note: H/o hypertension, diabetes mellitus and on warfarin for dual pacemaker and defibrillator. Former patient of Dr. Floyd, referred back to Hematology by his morning news producer. He has hx of severe anemia in after cholecystectomy 2020. He received fresh frozen plasma and also 2 units of blood after surgery for hemoglobin of 7.0. He had unexplained weight loss prior to this year. Although he denied any rectal bleeding or black tarry stool. During the time of surgery, he wastold by his surgeon that he has cirrhosis. He has a history of fatty liver disease, and he had quitdrinking alcohol over 5 years ago. He has no history of viral hepatitis. He complained of increased fatigue and dyspnea on exertion in July, and a CBC revealed a hemoglobin of 6.7. His platelet counts were previously between 130,000 - 95,000. His iron study was consistent with iron deficiency anemia and his vitamin B12 level of 224 was borderline low. His stool was Hemoccult negative. He had EGD and colonoscopy previously and they were normal. He also had a capsule endoscopy study 3 years ago. He was given iron sucrose 200mg IV x 5. His anemia improved, but he still has symptoms of fatigue and shortness of breath with exertion. He denied dizziness or lightheadedness. No change in bowel habits. He bruises easily because of warfarin and thrombocytopenia. Overall his CBC remains stable over the last 2 years. He believes last colonoscopy 2004 - denies issues reports he was due back in 10 years. Started Otelza in April which has helped significantly. However not much of an appetite since starting medications. Mr. Nolasco presents back to Hematology for evaluation of ZORAIDA. He reports that over the last several years his energy has been low. No recent illnesses, or infections. Denies recent hospitalizations or surgeries. Ozempic titrated all the way antus dose reduced recently by PCP. He denies SOB, CP, palpitations. Pt. received 5 doses of iron sucrose ending 5/17/24. Has been receiving Vit B12. Appetite:Ok. Wt. stable. Energy level:Better. I like that iron. Denies fevers or recent illness. Resp:denies cough or sob Cardiac:denies chest pain/palpitations GI:denies abd pain, n/v, moving bowels regularly :denies dysuria/hematuria Skin:denies rashes/lesions Heme:denies bleeding The ROS is otherwise negative. Past medical history, appointments, medications, allergies reviewed. No changes. EXAM: BP 119/74 Pulse 81 Temp 36.2 C (97.2 F) (Temporal) Wt 104.7 kg (230 lb 14.4 oz) SpO2 97% BMI 34.59 kg/m APPEARANCE Well appearing, alert, in no acute distress, well-hydrated, well nourished. HEART RRR with normal S1 and S2, no murmurs LUNG clear to auscultation ABDOMEN bowel sounds normoactive, soft, non-tender, non-distended, without organomegaly or palpablemasses EXTREMITIES No edema RLE, LLE swelling NEURO Awake, alert and oriented x 3, Normal gait, and No involuntary motions. SKIN Skin color, texture, turgor normal, no suspicious rashes or lesions LABS: Latest Ref Rng 12/26/2023 03/17/2024 WBC 3.70 - 11.00 k/uL 5.33 6.32 RBC 4.20 - 6.00 m/uL 3.83 (L) 4.21 Hemoglobin 13.0 - 17.0 g/dL 10.2 (L) 11.4 (L) Hematocrit 39.0 - 51.0 % 31.7 (L) 35.3 (L) MCV 80.0 - 100.0 fL 82.8 83.8 MCH 26.0 - 34.0 pg 26.6 27.1 MCHC 30.5 - 36.0 g/dL 32.2 32.3 RDW-CV 11.5 - 15.0 % 15.9 (H) 15.1 (H) Platelet Count 150 - 400 k/uL 113 (L) 141 (L) MPV 9.0 - 12.7 fL 8.9 (L) 9.6 Neut% % 66.0 67.8 Abs Neut (ANC) 1.45 - 7.50 k/uL 3.52 4.29 Lymph% % 24.4 22.3 Abs Lymph 1.00 - 4.00 k/uL 1.30 1.41 Ware% % 6.0 6.2 Abs Ware <0.87 k/uL 0.32 0.39 Eosin% % 2.1 2.4 Abs Eosin <0.46 k/uL 0.11 0.15 Baso% % 1.1 1.1 Abs Baso <0.11 k/uL 0.06 0.07 Immature Gran % % 0.4 0.2 IMMATURE GRANS (ABS) <0.10 k/uL <0.03 <0.03 NRBC /100 WBC 0.0 0.0 Absolute nRBC <0.01 k/uL <0.01 <0.01 DTYPE Auto Auto Latest Ref Rng 12/26/2023 03/17/2024 Protein, Total 6.3 - 8.0 g/dL 6.2 (L) 6.1 (L) Albumin 3.9 - 4.9 g/dL 3.2 (L) 3.3 (L) Calcium 8.5 - 10.2 mg/dL 9.0 8.7 Bilirubin, Total 0.2 - 1.3 mg/dL 0.3 0.3 Alkaline Phosphatase 38 - 113 U/L 122 (H) 160 (H) AST 14 - 40 U/L 11 (L) 9 (L) ALT 10 - 54 U/L 6 (L) 5 (L) Glucose 74 - 99 mg/dL 100 (H) 149 (H) BUN 9 - 24 mg/dL 7 (L) 9 Creatinine 0.73 - 1.22 mg/dL 1.06 1.12 Sodium 136 - 144 mmol/L 137 139 Potassium 3.7 - 5.1 mmol/L 4.3 3.9 Chloride 98 - 107 mmol/L 105 104 CO2 22 - 30 mmol/L 26 26 Anion Gap 8 - 15 mmol/L 6 (L) 9 eGFR >=60 mL/min/1.73m 74 69 Latest Ref Rng 12/26/2023 03/17/2024 Ferritin 30.3 - 565.7 ng/mL 41.9 131.0 Latest Ref Rng 12/26/2023 03/17/2024 Vitamin B12 232 - 1,245 pg/mL 242 630 ASSESSMENT/PLAN: 1. Iron deficiency anemia, unspecified iron deficiency anemia type - ICD9: 280.9, ICD10: D50.9 (primary diagnosis) 2. Stage 3a chronic kidney disease (HCC) - ICD9: 585.3, ICD10: N18.31 3. B12 deficiency - ICD9: 266.2, ICD10: E53.8 Per Alvino Gleason's previous note: Stage 3a, chronic kidney disease -Anemia improved with IV iron infusion; and fecal occult was negative .Will plan for IV iron sucrose x5 due to count with CKD. -Moderate thrombocytopenia without excessive bleeding, with occasional bruising on warfarin. -Reviewed cbc and recent iron studies in detail. Overall labs have remained stable over the last several years. No indication for repeat IV iron at this time. No bleeding. Plts are stable. He believes last colonoscopy 2004 - denies issues reports he was due back in 10 years. Will refer back to GI at this time for repeat scope as he is due for screening. Scheduled for 02/04 -May consider starting erythropoietin injections for treatment of anemia of chronic disease secondary to chronic renal failure, however not indicated at this time as hgb is stable and remains >10. - B12 low - will start on weekly IM due to concern for lack of absorption. RTC about 6 - 8 weeks following last IV iron with CBC, CMP, iron studies, and B12 - - Tolerated iron sucrose well. Feels better. - Reviewed labs with pt. - Continue follow up with PCP/Cards. - Continue monthly Vit. B12 injections. - CBC/iron studies/B12 in 3 months. - Follow up with Darya Gleason in 6 months with same labs as above. - Pt. aware to call office with any questions/concerns. The patient indicates understanding of these issues and agrees with the plan. All documentation from previous visit of 01/02/24-Darya Gleason CNP was copied and pasted, documentation has been reviewed and edited as necessary for today's visit. Vilma Philip APRN.OREN documented in this encounterProm[facility]07-03-[facility]24 Telephone encounter Note * Telephone Encounter - Freda Guerra LPN - 03/12/2024 2:11 PM EDT Phoned patient back to verify that he received instructions. patient read back instructions with verbal understanding. Patient will recheck INR in one week. Freda Guerra LPN [facility]07-03-2024 Miscellaneous Notes* Telephone Encounter - Freda Guerra LPN - 03/12/2024 2:11 PM EDT Phoned patient back to verify that he received instructions. patient read back instructions with verbal understanding. Patient will recheck INR in one week. Freda Guerra LPN * Telephone Encounter - Neris Dunne - 03/12/2024 1:11 PM EDT Patient returned call and message read to patient. Patient expressed understanding. * Telephone Encounter - Shelia Charles MA - 03/12/2024 1:02 PM EDT Tried calling patient, VM not set up. Will try again later. * Telephone Encounter - Lino Bhandari APRN.CNP - 03/12/2024 12:14 PM EDT Decrease coumadin to 5 mg 3 days a week and 2.5 mg all others. Recheck in 1 week Thank you Lino Bhandari APRN.OREN * Telephone Encounter - Freda Guerra LPN - 03/12/2024 10:41 AM EDT Last INR: INR (POCT) 3.4 03/12/2024 Current dose of coumadin is: Coumadin 5 mg 4 days and 2.5 mg 3 days a week. Last date of dose change: 02/21/24. Previous INR (date and result): 02/27/24 2.8 Patient coumadin range 2-3 Additional Clinical Information or narrative: yes: Patient is taking iron pills at night at 10 pm and takes coumadin at 8:30 am When confirming current coumadin dosage patient stated that he was only taking 2.5 mg 2 days a weekand all other days 5 mg. documented in this encounterProm[facility]07-[facility]-2024 Telephone encounter Note * Telephone Encounter - Neris Dunne - 03/12/2024 1:11 PM EDT Patient returned call and message read to patient. Patient expressed understanding. [facility] Telephone encounter Note* Telephone Encounter - Shelia Charles MA - 03/12/2024 1:02 PM EDT Tried calling patient, VM not set up. Will try again later. [facility] Telephone encounter Note* Telephone Encounter - Lino Bhandari APRN.CNP - 03/12/2024 12:14 PM EDT Decrease coumadin to 5 mg 3 days a week and 2.5 mg all others. Recheck in 1 week Thank you Lino Bhandari APRN.CNP [facility]07-03-[facility] Telephone encounter Note* Telephone Encounter - Freda Guerra LPN - 03/12/2024 10:41 AM EDT Last INR: INR (POCT) 3.4 03/12/2024 Current dose of coumadin is: Coumadin 5 mg 4 days and 2.5 mg 3 days a week. Last date of dose change: 02/21/24. Previous INR (date and result): 02/27/24 2.8 Patient coumadin range 2-3 Additional Clinical Information or narrative: yes: Patient is taking iron pills at night at 10 pm and takes coumadin at 8:30 am When confirming current coumadin dosage patient stated that he was only taking 2.5 mg 2 days a weekand all other days 5 mg. [facility] Nurse Note* Palmira Riggins LPN - 03/05/2024 9:27 AM EDT Pt here for injection of B12. Given IM in left delt. Pt tolerated well. Palmira Riggins LPN [facility] Nurse Note* Palmira Riggins LPN - 03/05/2024 9:27 AM EDT Pt here for injection of B12. Given IM in left delt. Pt tolerated well. Palmira Riggins LPN documented in this encounterPromedica [facility]06-19-2024 Telephone encounter Note * Telephone Encounter - Lino Bhandari APRN.CNP - 02/27/2024 5:03 PM EDT INR is in range for range of 2-3. I assume there are no missed doses or med changes. Continue current dosage and recheck INR in 2 weeks Thank you Lino Bhandari APRN.CNP [facility] Miscellaneous Notes* Telephone Encounter - Lino Bhandari APRN.CNP - 02/27/2024 5:03 PM EDT INR is in range for range of 2-3. I assume there are no missed doses or med changes. Continue current dosage and recheck INR in 2 weeks Thank you Lino Bhandari APRN.JOB FOREMAN * Telephone Encounter - Shelia Charles MA - 02/27/2024 3:43 PM EDT Last INR: INR (POCT) 2.8 02/27/2024 Current dose of coumadin is: 5mg 4 days a week and 2.5 mg 3 days.. Last date of dose change: 02/20/24. Previous INR (date and result): 02/20/24 3.4 Additional Clinical Information or narrative: no documented in this encounterPromedica [facility]06-19-2024 Telephone encounter Note * Telephone Encounter - Shelia Charles MA - 02/27/2024 3:43 PM EDT Last INR: INR (POCT) 2.8 02/27/2024 Current dose of coumadin is: 5mg 4 days a week and 2.5 mg 3 days.. Last date of dose change: 02/20/24. Previous INR (date and result): 02/20/24 3.4 Additional Clinical Information or narrative: no [facility] History of Present illness Narrative* Dileep Childs APRN.CNP - 02/25/2024 1:35 PM EDT Subjective HPI HPI Yazan Nolasco is a 73 year old male who presents today for CC of left leg swelling and foot pain. This started worsening over 3 weeks, now severe unable to walk/stand for long. Currently on coumadin but has not been stabilized for few weeks. Denies injury to left leg, but pain and leg dysfunction caused patient to fall few days ago. 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 Diabetes mellitus (HCC) Diarrhea Dual implantable cardioverter-defibrillator in situ Dyslipidemia Esophageal reflux Ex-smoker History of transfusion Hypothyroidism 11/21/2022 Mononeuritis of unspecified site Obesity, unspecified Other chronic nonalcoholic liver disease Personal history of colonic polyps 03/20/2005 hyperplastic polyps Unspecified essential hypertension PAST SURGICAL HISTORY Procedure Laterality Date BSCAN OS (LEFT EYE) Left CARDIOVERSION 04/30/2023 COLONOSCOPY FLX DX W/COLLJ SPEC WHEN PFRMD 03/20/2005 Colonoscopy COLONOSCOPY FLX DX W/COLLJ SPEC WHEN PFRMD 06/15/2015 Colonoscopy [facility] out pt ENDOSCOPY PROC 08/2018 ESOPHAGOGASTRODUODENOSCOPY TRANSORAL DIAGNOSTIC 06/15/2015 EGD [facility] out pt EXCISION PILONIDAL CYST/SINUS SIMPLE 01/19/2003 Excision pilonidal cyst PACEMAKER SURGERY 03/11/2012 pacer/defib PACEMAKER SURGERY 09/17/2018 PAST SURGICAL HISTORY OF 09/16/2012 eye surgery, s/p Plaque OS PRO SMART PILL CAPSULE PROC ([id number]) 10/15/2018 REMOVAL GALLBLADDER 06/10/2021 REMOVE PACEMAKER SYSTEM 09/17/2018 replaced it all RPR UMBILICAL HERNIA < 5 YRS REDUCIBLE 02/17/1999 Hernia repair, umbilical ALLERGIES Patient has no known allergies. MEDICATIONS levothyroxine (SYNTHROID) 50 mcg tablet TAKE 1 TABLET BY MOUTH ONCE DAILY ON AN EMPTY STOMACH FOR THYROID insulin glargine (LANTUS SOLOSTAR U-100 INSULIN) 100 unit/mL (3 mL) Inject 30 Units subcutaneously daily at bedtime. warfarin (COUMADIN) 2.5 mg tablet TAKE 1 TABLET BY MOUTH ONCE DAILY OR DIRECTED tamsulosin (FLOMAX) 0.4 mg Take 2 capsules by mouth once daily. gabapentin (NEURONTIN) 600 mg tablet Take 1 tablet by mouth daily at bedtime for 180 days. potassium chloride (KLOR-CON 10) 10 mEq tablet Take 1 tablet by mouth two times a day. magnesium oxide (MAGOX) 400 mg (241.3 mg magnesium) tablet Take 1 tablet by mouth two times a day. semaglutide (OZEMPIC) 2 mg/dose (8 mg/3 mL) pen injector Inject 2 mg subcutaneously one time a week. ferrous sulfate 325 mg (65 mg iron) tablet Take 1 tablet by mouth every Sunday, Sunday, and Sunday. amLODIPine (NORVASC) 5 mg tablet Take 1 tablet by mouth once daily. lovastatin (MEVACOR) 20 mg tablet Take 1 tablet by mouth every other day. metoprolol tartrate, short acting, (LOPRESSOR) 100 mg tablet Take 1 tablet by mouth twice daily. apremilast (OTEZLA) 30 mg tablet Take 1 tablet by mouth twice daily. DULoxetine (CYMBALTA) 60 mg capsule Take 1 capsule by mouth once daily. allopurinol (ZYLOPRIM) 100 mg tablet Take 2 tablets by mouth once daily. warfarin (COUMADIN) 5 mg tablet Take 1 tablet by mouth once daily. clobetasol (TEMOVATE) 0.05 % cream APPLY TO THE AFFECTED FLARES ON THE HANDS TWICE DAILY FOR 2 WEEKS THEN TAKE A WEEK OFF BEFORE RESUMING. lisinopril (ZESTRIL, PRINIVIL) 40 mg tablet Take 1 tablet by mouth once daily. acetaminophen (TYLENOL) 500 mg tablet Take 500 mg by mouth as needed. LILO PEN NEEDLE 32 gauge x 5/32 ndle USE TWICE DAILY WITH INSULIN DOSE Blood Sugar Diagnostic, Drum (ACCU-CHEK COMPACT TEST) strp Test blood sugar(s) 4 times daily. Dx: DM 250 Insulin: Yes Lancets (ACCU-CHEK SOFTCLIX LANCETS) Misc lancets three times daily as needed. Dx. 250.00 FAMILY HISTORY Problem Relation Age of Onset Heart Mother of CHF at 91 Stroke Mother Hypertension Mother other (Other) Father at 87 of a brain aneurysm Hypertension Brother Stroke Brother Heart Brother Goiter Maternal Grandmother Aneurysm Maternal Grandfather brain No Ocular Disease Other Colon Cancer No Family History Social History Tobacco Use Smoking status: Former Packs/day: 1.00 Years: 40.00 Additional pack years: 0.00 Total pack years: 40.00 Types: Cigarettes Quit date: 03/26/2009 Years since quittin.9 Smokeless tobacco: Never Vaping Use Vaping Use: Never used Substance Use Topics Alcohol use: Not Currently Comment: 1991 Drug use: Not Currently ROS Objective Blood pressure 112/72, pulse 76, temperature 36.4 C (97.6 F), temperature source Tympanic, weight 104.1 kg (229 lb 8 oz), SpO2 99%. Physical Exam Constitutional: General: He is not in acute distress. Appearance: He is not toxic-appearing or diaphoretic. HENT: Head: Normocephalic and atraumatic. Cardiovascular: Pulses: Dorsalis pedis pulses are 1+ on the left side. Posterior tibial pulses are 2+ on the left side. Pulmonary: Effort: Pulmonary effort is normal. No accessory muscle usage or respiratory distress. Musculoskeletal: Left lower le+ Edema present. Neurological: Mental Status: He is alert and oriented to person, place, and time. ASSESSMENT/PLAN: 1. Severe pain - ICD9: 780.96, ICD10: R52 I will refer to ER Dileep Childs APRN.JOB FOREMAN documented [facility] encounter[facility] Telephone encounter Note * Telephone Encounter - Shelia Charles MA - 02/21/2024 1:32 PM EDT Patient notified. [facility] Miscellaneous Notes* Telephone Encounter - Shelia Charles MA - 02/21/2024 1:32 PM EDT Patient notified. * Telephone Encounter - Lino Bhandari APRN.CNP - 02/21/2024 12:57 PM EDT INR is above range of 2-3. Decrease to 5mg 4 days a week and 2.5 mg 3 days a week and recheck next week. Thank you Lino Bhandari APRN.JOB FOREMAN * Telephone Encounter - Jami De Leon MA - 02/20/2024 7:15 PM EDT Last INR: INR (POCT) 3.4 02/20/2024 Current dose of coumadin is: . 5mg 5 days a week and 2.5 mg twice a week Last date of dose change: 02/06. Previous INR (date and result): 02/05 1.8 Jami De Leon MA documented in this encounterProm[facility]06-13-[facility]24 Telephone encounter Note * Telephone Encounter - Lino Bhandari APRN.CNP - 02/21/2024 12:57 PM EDT INR is above range of 2-3. Decrease to 5mg 4 days a week and 2.5 mg 3 days a week and recheck next week. Thank you Lino Bhandari APRN.OREN [facility]06-[facility] Telephone encounter Note* Telephone Encounter - Jami De Leon MA - 02/20/2024 7:15 PM EDT Last INR: INR (POCT) 3.4 02/20/2024 Current dose of coumadin is: . 5mg 5 days a week and 2.5 mg twice a week Last date of dose change: 02/06. Previous INR (date and result): 02/05 1.8 Jami De Leon MA [facility] Telephone encounter Note* Telephone Encounter - Freda Purdy LPN - 02/19/2024 10:04 AM EDT Prescription Refill Information The patient has been identified by name and date of : Yes Caregiver verified no other encounters exist for this prescription request: Yes Caregiver confirmed with patient/requestor that no other refills are due, in the near future, with this provider at this time: Yes The last office visit in the department: 11/09/23 Does the patient have a future office visit with this provider/department: Yes Requested Prescriptions Pending Prescriptions Disp Refills levothyroxine (SYNTHROID) 50 mcg tablet 90 tablet 3 Sig: TAKE 1 TABLET BY MOUTH ONCE DAILY ON AN EMPTY STOMACH FOR THYROID Freda Purdy LPN February 19, 2024 10:04 AM [facility] Miscellaneous Notes* Telephone Encounter - Freda Purdy LPN - 02/19/2024 10:04 AM EDT Prescription Refill Information The patient has been identified by name and date of : Yes Caregiver verified no other encounters exist for this prescription request: Yes Caregiver confirmed with patient/requestor that no other refills are due, in the near future, with this provider at this time: Yes The last office visit in the department: 11/09/23 Does the patient have a future office visit with this provider/department: Yes Requested Prescriptions Pending Prescriptions Disp Refills levothyroxine (SYNTHROID) 50 mcg tablet 90 tablet 3 Sig: TAKE 1 TABLET BY MOUTH ONCE DAILY ON AN EMPTY STOMACH FOR THYROID Freda Purdy LPN February 19, 2024 10:04 AM documented in this encounterProm[facility]05-30-[facility]24 Telephone encounter Note * Telephone Encounter - Shelia Charles MA - 02/07/2024 2:50 PM EDT Patient notified. [facility]-30[facility] Miscellaneous Notes* Telephone Encounter - Shelia Charles MA - 02/07/2024 2:50 PM EDT Patient notified. * Telephone Encounter - Lino Bhandari APRN.OREN - 02/07/2024 1:01 PM EDT Increase to 5mg 5 days a week and 2.5 mg twice a week, recheck in 2 weeks. If he is also taking something with an iron supplement orally,then needs to take at different time of day than coumadin. Forexample supplement (pill) in AM and coumadin in afternoon. Thank you Lino Bhandari APRN.OREN * Telephone Encounter - Freda Purdy LPN - 02/07/2024 7:40 AM EDT Last INR: INR (POCT) 1.5 02/06/2024 Current dose of coumadin is: coumadin 5 mg M,W,F and 2.5 mg all other days. Last date of dose change: 01/23/24. Previous INR (date and result): 01/30/24 1.8 Additional Clinical Information or narrative: Yes , had colonoscopy on 02/05/24 and has been having iron infusions documented in this encounterProm[facility]05-30-[facility] Telephone encounter Note * Telephone Encounter - Lino Bhandari APRN.CNP - 02/07/2024 1:01 PM EDT Increase to 5mg 5 days a week and 2.5 mg twice a week, recheck in 2 weeks. If he is also taking something with an iron supplement orally,then needs to take at different time of day than coumadin. Forexample supplement (pill) in AM and coumadin in afternoon. Thank you Lino Bhandari APRN.OREN [facility]-30-[facility] Telephone encounter Note* Telephone Encounter - Freda Purdy LPN - 02/07/2024 7:40 AM EDT Last INR: INR (POCT) 1.5 02/06/2024 Current dose of coumadin is: coumadin 5 mg M,W,F and 2.5 mg all other days. Last date of dose change: 01/23/24. Previous INR (date and result): 01/30/24 1.8 Additional Clinical Information or narrative: Yes , had colonoscopy on 02/05/24 and has been having iron infusions [facility] Nurse Note* Palmira Riggins LPN - 02/06/2024 1:57 PM EDT Pt here for injection of B12. Given IM in right delt. Pt tolerated well. Palmira Riggins LPN [facility] Nurse Note* Palmira Riggins LPN - 02/06/2024 1:57 PM EDT Pt here for injection of B12. Given IM in right delt. Pt tolerated well. Palmira Riggins LPN documented in this encounterPromedica [facility]05-28-2024 Nurse Note* Vicki Lin RN - 02/05/2024 10:34 AM EDT AMBULATORY PATIENT EDUCATION NOTE TOPIC: GI PROCEDURES: Colonoscopy with or without biopsies based on clinical findings Esophagogastroduodenoscopy(EGD) with or without biopies based on clinical findings, removal of polyps or lesions READINESS TO LEARN INSTRUCTION PROVIDED TO: Patient, readness to learn accessed prior to procedure, Family member, andPatient and family member COGNITIVE ABILITY: Alert and oriented PTED MOTIVATION TO LEARN: Interested FAMILY SUPPORT: None - Unavailable/disinterested IPATIENT LEARNS BEST BY: Individual Instruction Written Instruction - Hand-outs Verbal Instruction FACTORS AFFECTING LEARNING: None PHYSICAL LIMITATIONS AFFECTING LEARNING: None LEARNING RESPONSE METHOD OF INSTRUCTION: Individual instruction PATIENT / FAMILY RESPONSE: Verbalizes understanding of: WORSENING CONDITION- Signs and symptoms of aworsening condition that warrant a call to the physician FOLLOW-UP PLAN: Complete - No need for follow-up SUPPLEMENTAL MATERIAL: Procedure Discharge Instructions REFERRAL (RECOMMENDATION): None [facility] Note* Vicki Lin RN - 02/05/2024 10:34 AM EDT AMBULATORY PATIENT EDUCATION NOTE TOPIC: GI PROCEDURES: Colonoscopy with or without biopsies based on clinical findings Esophagogastroduodenoscopy(EGD) with or without biopies based on clinical findings, removal of polyps or lesions READINESS TO LEARN INSTRUCTION PROVIDED TO: Patient, readness to learn accessed prior to procedure, Family member, andPatient and family member COGNITIVE ABILITY: Alert and oriented PTED MOTIVATION TO LEARN: Interested FAMILY SUPPORT: None - Unavailable/disinterested IPATIENT LEARNS BEST BY: Individual Instruction Written Instruction - Hand-outs Verbal Instruction FACTORS AFFECTING LEARNING: None PHYSICAL LIMITATIONS AFFECTING LEARNING: None LEARNING RESPONSE METHOD OF INSTRUCTION: Individual instruction PATIENT / FAMILY RESPONSE: Verbalizes understanding of: WORSENING CONDITION- Signs and symptoms of aworsening condition that warrant a call to the physician FOLLOW-UP PLAN: Complete - No need for follow-up SUPPLEMENTAL MATERIAL: Procedure Discharge Instructions REFERRAL (RECOMMENDATION): None * Isabelle Mendoza RN - 02/05/2024 9:[address] Ryan Keith notified hat patient took Coumadin on Sunday and has a pacemaker. * Isabelle Mendoza RN - 02/05/2024 9:14 AM EDT PRE OP LEARNING ASSESSMENT PROCEDURE/SURGERY: GI PROCEDURES: Colonoscopy and EGD READINESS TO LEARN COGNITIVE ABILITY: Alert and oriented MOTIVATION TO LEARN: Interested FAMILY SUPPORT: High - Very involved in pt care PATIENT LEARNS BEST BY: Individual Instruction Written Instruction - Hand-outs Verbal Instruction FACTORS AFFECTING LEARNING: None PHYSICAL LIMITATIONS AFFECTING LEARNING: None Electronically Signed By: Isabelle Mendoza RN In Department: GASTROENTEROLOGY documented in this encounterPromedica [facility]05-28-2024 Nurse procedure note* Sedation Documentation - Lora Murphy RN - 02/05/2024 10:01 AM EDT Colonoscopy start. Scope in. [facility] Miscellaneous Notes* Sedation Documentation - Lora Murphy RN - 02/05/2024 10:01 AM EDT Colonoscopy start. Scope in. * Sedation Documentation - Lora Murphy RN - 02/05/2024 9:55 AM EDT EGD end. Scope out. documented in this encounterPromedica [facility]05-28-2024 Nurse procedure note* Sedation Documentation - Lora Murphy RN - 02/05/2024 9:55 AM EDT EGD end. Scope out. [facility] Telephone encounter Note* Telephone Encounter - Freda Purdy LPN - 02/05/2024 9:47 AM EDT Prescription Refill Information The patient has been identified by name and date of : Yes Caregiver verified no other encounters exist for this prescription request: Yes Caregiver confirmed with patient/requestor that no other refills are due, in the near future, with this provider at this time: Yes The last office visit in the department: 11/09/23 Does the patient have a future office visit with this provider/department: Yes Requested Prescriptions Pending Prescriptions Disp Refills insulin glargine (LANTUS SOLOSTAR U-100 INSULIN) 100 unit/mL (3 mL) Sig: Inject 30 Units subcutaneously daily at bedtime. Freda Purdy LPN February 05, 2024 9:47 AM [facility] Miscellaneous Notes* Telephone Encounter - Freda Purdy LPN - 02/05/2024 9:47 AM EDT Prescription Refill Information The patient has been identified by name and date of : Yes Caregiver verified no other encounters exist for this prescription request: Yes Caregiver confirmed with patient/requestor that no other refills are due, in the near future, with this provider at this time: Yes The last office visit in the department: 11/09/23 Does the patient have a future office visit with this provider/department: Yes Requested Prescriptions Pending Prescriptions Disp Refills insulin glargine (LANTUS SOLOSTAR U-100 INSULIN) 100 unit/mL (3 mL) Sig: Inject 30 Units subcutaneously daily at bedtime. Freda Purdy LPN February 05, 2024 9:47 AM documented in this encounterProm[facility]05-28-2024 Nurse Note* Isabelle Mendoza RN - 02/05/2024 9:[address] Ryan Keith notified hat patient took Coumadin on Sunday and has a pacemaker. [facility] Note* Isabelle Mendoza RN - 02/05/2024 9:14 AM EDT PRE OP LEARNING ASSESSMENT PROCEDURE/SURGERY: GI PROCEDURES: Colonoscopy and EGD READINESS TO LEARN COGNITIVE ABILITY: Alert and oriented MOTIVATION TO LEARN: Interested FAMILY SUPPORT: High - Very involved in pt care PATIENT LEARNS BEST BY: Individual Instruction Written Instruction - Hand-outs Verbal Instruction FACTORS AFFECTING LEARNING: None PHYSICAL LIMITATIONS AFFECTING LEARNING: None Electronically Signed By: Isabelle Mendoza RN In Department: GASTROENTEROLOGY [facility]05-[facility] History and physical note* Elmo Gonzales MD - 02/05/2024 9:00 AM EDT HISTORY AND PHYSICAL Yazan Nolasco, 73 year old male Current history and physical on file: Yes Is a new History and Physical required for today's visit? No Indication for procedure: Iron deficiency anemia PROCEDURE(S) SCHEDULED FOR: Colonoscopy with or without biopsies and with or without removal of polyps or lesions, dilation (any means), treatment of bleeding (any means), based on clinical findings. and EGD (Esophagogastroduodenoscopy) with or without biopsies, removal of polyps or lesions, dilation ( any means), treatment of bleeding ( any means), Barrx treatment of Michael's Esophagus, image tube placement or cryo therapytreatment based on clinical findings. BASELINE BEHAVIOR: Calm BASELINE ORIENTATION: A & O x3 All medications and allergies reviewed: Yes Skin Assessment: Warm dry mucus membranes pink Airway/Respiratory Assessment: NO RESP DISTRESS Cardiac Assessment: RRR Abdominal Assessment: SOFT,NT,ND Sedation Plan: MAC Additional Comments: None Elmo Gonzales MD Associated attestation - Rocky Ortega MD - 02/05/2024 12:21 PM EDT Attending Note I personally saw and examined the patient. I reviewed the fellow's note. I agree with the fellow's assessment and plan unless otherwise noted. Signature: Rocky Ortega MD Date: 02/05/2024 Time: 12:21 PM [facility] Work Phone: 1(917) 349-843605-28-2024 History and physical note* Elmo Gonzales MD - 02/05/2024 9:00 AM EDT HISTORY AND PHYSICAL Yazan Nolasco, 73 year old male Current history and physical on file: Yes Is a new History and Physical required for today's visit? No Indication for procedure: Iron deficiency anemia PROCEDURE(S) SCHEDULED FOR: Colonoscopy with or without biopsies and with or without removal of polyps or lesions, dilation (any means), treatment of bleeding (any means), based on clinical findings. and EGD (Esophagogastroduodenoscopy) with or without biopsies, removal of polyps or lesions, dilation ( any means), treatment of bleeding ( any means), Barrx treatment of Michael's Esophagus, image tube placement or cryo therapytreatment based on clinical findings. BASELINE BEHAVIOR: Calm BASELINE ORIENTATION: A & O x3 All medications and allergies reviewed: Yes Skin Assessment: Warm dry mucus membranes pink Airway/Respiratory Assessment: NO RESP DISTRESS Cardiac Assessment: RRR Abdominal Assessment: SOFT,NT,ND Sedation Plan: MAC Additional Comments: None Elmo Gonzales MD Associated attestation - Rocky Ortega MD - 02/05/2024 12:21 PM EDT Attending Note I personally saw and examined the patient. I reviewed the fellow's note. I agree with the fellow's assessment and plan unless otherwise noted. Signature: Rocky Ortega MD Date: 02/05/2024 Time: 12:21 PM documented in this encounterPromedica [facility]05-23-20[facility] Nurse Note* Palmira Riggins LPN - 01/31/2024 2:06 PM EDT Pt here for injection of B12. Given IM in left delt\. Pt tolerated well. Palmira Riggins LPN [facility] Nurse Note* aPlmira Riggins LPN - 01/31/2024 2:06 PM EDT Pt here for injection of B12. Given IM in left delt\. Pt tolerated well. Palmira Riggins LPN documented in this encounterPromedica [facility]05-23-2024 Telephone encounter Note * Telephone Encounter - Lillian Higginbotham - 01/31/2024 8:40 AM EDT Prescription Refill Information The patient has been identified by name and date of : Yes Caregiver verified no other encounters exist for this prescription request: Yes Caregiver confirmed with patient/requestor that no other refills are due, in the near future, with this provider at this time: Yes The last office visit in the department: 11/09/23 Does the patient have a future office visit with this provider/department: Yes Requested Prescriptions Pending Prescriptions Disp Refills levothyroxine (SYNTHROID) 50 mcg tablet 90 tablet 0 Sig: TAKE 1 TABLET BY MOUTH ONCE DAILY ON AN EMPTY STOMACH FOR THYROID Lillian D Shawn [facility] January 31, 2024 8:40 AM [facility] Work Phone: [phone]) [phone] Miscellaneous Notes* Telephone Encounter - Lillian Higginbotham - 01/31/2024 8:40 AM EDT Prescription Refill Information The patient has been identified by name and date of : Yes Caregiver verified no other encounters exist for this prescription request: Yes Caregiver confirmed with patient/requestor that no other refills are due, in the near future, with this provider at this time: Yes The last office visit in the department: 11/09/23 Does the patient have a future office visit with this provider/department: Yes Requested Prescriptions Pending Prescriptions Disp Refills levothyroxine (SYNTHROID) 50 mcg tablet 90 tablet 0 Sig: TAKE 1 TABLET BY MOUTH ONCE DAILY ON AN EMPTY STOMACH FOR THYROID Lillian Escobar [facility] January 31, 2024 8:40 AM documented in this encounterPromedica [facility]05-22-[facility]24 Telephone encounter Note * Telephone Encounter - Freda Purdy LPN - 01/30/2024 2:14 PM EDT Clarified colonoscopy is January. patient notified of instructions. Freda Purdy LPN [facility]-22-[facility]24 Miscellaneous Notes* Telephone Encounter - Freda Purdy LPN - 01/30/2024 2:14 PM EDT Clarified colonoscopy is January. patient notified of instructions. Freda Purdy LPN * Telephone Encounter - Lino Bhandari APRN.CNP - 01/30/2024 1:32 PM EDT Clarification: Colonoscopy is February 04 next week. With scope scheduled next week will recheck INR after scope and adjust as necessary. Thank you Lino Bhandari APRN.OREN * Telephone Encounter - Freda Purdy LPN - 01/30/2024 11:02 AM EDT Last INR: INR (POCT) 1.8 01/30/2024 Current dose of coumadin is: Coumadin 5 mg M,W,F and 2.5 mg all other days. Last date of dose change: 12/05/23. Previous INR (date and result): 01/16/24 2.0 Additional Clinical Information or narrative: yes: iron infusions and is having colonoscopy on January. Freda Purdy LPN documented in this encounterPromedica [facility]05-22-2024 Telephone encounter Note * Telephone Encounter - Lino Bhandari APRN.CNP - 01/30/2024 1:32 PM EDT Clarification: Colonoscopy is February 04. With scope scheduled next week will recheck INR after scope and adjust as necessary. Thank you Lino Bhandari APRN.OREN [facility]-22-[facility]24 Telephone encounter Note* Telephone Encounter - Freda Purdy LPN - 01/30/2024 11:02 AM EDT Last INR: INR (POCT) 1.8 01/30/2024 Current dose of coumadin is: Coumadin 5 mg M,W,F and 2.5 mg all other days. Last date of dose change: 12/05/23. Previous INR (date and result): 01/16/24 2.0 Additional Clinical Information or narrative: yes: iron infusions and is having colonoscopy on January. Freda Purdy LPN [facility] Evaluation note* Diagnosis Stage 3a chronic kidney disease (HCC)- Primary Iron deficiency anemia secondary to inadequate dietary iron intake Iron malabsorption Other specified intestinal malabsorption B12 deficiency Other B-complex deficiencies documented in this encounter [facility] Telephone encounter Note* Telephone Encounter - Ferda Purdy LPN - 01/23/2024 2:02 PM EDT Patient notified and verbalized understanding. Freda Purdy LPN [facility]-15-2024 Miscellaneous Notes* Telephone Encounter - Freda Purdy LPN - 01/23/2024 2:02 PM EDT Patient notified and verbalized understanding. Freda Purdy LPN * Telephone Encounter - Lino Bhnadari APRN.CNP - 01/23/2024 11:30 AM EDT Increase to 5mg 4 days a week and 2.5 mg the other 3 days of the week. Repeat INR next week. Thank you Lino Bhandari APRN.OREN * Telephone Encounter - Freda Purdy LPN - 01/23/2024 10:47 AM EDT Last INR: INR (POCT) 1.7 01/23/2024 Current dose of coumadin is: Coumdain 5 mg M,W,F and 2.5 mg all other days. Last date of dose change: 12/05/23. Previous INR (date and result): 01/16/24 2.0 Additional Clinical Information or narrative: yes: Patient has been getting iron infusions and B-12injections documented in this encounterPromedica [facility]05-[facility]-2024 Telephone encounter Note * Telephone Encounter - Lino Bhandari APRN.CNP - 01/23/2024 11:30 AM EDT Increase to 5mg 4 days a week and 2.5 mg the other 3 days of the week. Repeat INR next week. Thank you Lino Bhandari APRN.JOB FOREMAN [facility]-15-2024 Telephone encounter Note* Telephone Encounter - Frdea Purdy LPN - 01/23/2024 10:47 AM EDT Last INR: INR (POCT) 1.7 01/23/2024 Current dose of coumadin is: Coumdain 5 mg M,W,F and 2.5 mg all other days. Last date of dose change: 12/05/23. Previous INR (date and result): 01/16/24 2.0 Additional Clinical Information or narrative: yes: Patient has been getting iron infusions and B-12injections [facility] History of Present illness Narrative* Keyshawn Ordonez MD - 01/21/2024 10:14 AM EDT Images from the original note were not included. Keyshawn Ordonez MD Interventional Cardiology [address] [place] [address] [phone] Chief Complaint Patient presents with: Follow Up HISTORY OF PRESENT ILLNESS: Mr. Nolasco is a 73 year old male seen in my office today for assessment and management prior history of manage dilated cardiomyopathy with mild coronary nonobstructive coronary artery disease with atrial flutter cardioverted back to sinus rhythm with improvement in LV function patient had an ICD for primary prevention many years ago most recent cardioversion was done in April 2023 he is maintained on Coumadin asymptomatic denies chest pain or shortness of breath no signs or symptoms of congestive heart failure Cardiac Risk Factors age (male over 45, female over 55), hyperlipidemia, obesity, hypertension, family history of CAD 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 Diabetes mellitus (HCC) Diarrhea Dual implantable cardioverter-defibrillator in situ Dyslipidemia Esophageal reflux Ex-smoker Hypothyroidism 11/21/2022 Mononeuritis of unspecified site Obesity, unspecified Other chronic nonalcoholic liver disease Personal history of colonic polyps 03/20/2005 hyperplastic polyps Unspecified essential hypertension PAST SURGICAL HISTORY Procedure Laterality Date BSCAN OS (LEFT EYE) Left CARDIOVERSION 04/30/2023 COLONOSCOPY FLX DX W/COLLJ SPEC WHEN PFRMD 03/20/2005 Colonoscopy COLONOSCOPY FLX DX W/COLLJ SPEC WHEN PFRMD 06/15/2015 Colonoscopy [facility] out pt ENDOSCOPY PROC 08/2018 ESOPHAGOGASTRODUODENOSCOPY TRANSORAL DIAGNOSTIC 06/15/2015 EGD [facility] out pt EXCISION PILONIDAL CYST/SINUS SIMPLE 01/19/2003 Excision pilonidal cyst PACEMAKER SURGERY 03/11/2012 pacer/defib PACEMAKER SURGERY 09/17/2018 PAST SURGICAL HISTORY OF 09/16/2012 eye surgery, s/p Plaque OS PRO SMART PILL CAPSULE PROC ([id number]) 10/15/2018 REMOVAL GALLBLADDER 06/10/2021 REMOVE PACEMAKER SYSTEM 09/17/2018 replaced it all RPR UMBILICAL HERNIA < 5 YRS REDUCIBLE 02/17/1999 Hernia repair, umbilical FAMILY HISTORY Problem Relation Age of Onset Heart Mother of CHF at 91 Stroke Mother Hypertension Mother other (Other) Father at 87 of a brain aneurysm Hypertension Brother Stroke Brother Heart Brother Goiter Maternal Grandmother Aneurysm Maternal Grandfather brain No Ocular Disease Other Colon Cancer No Family History Social History Tobacco Use Smoking status: Former Packs/day: 1.00 Years: 40.00 Additional pack years: 0.00 Total pack years: 40.00 Types: Cigarettes Quit date: 03/26/2009 Years since quittin.8 Smokeless tobacco: Never Vaping Use Vaping Use: Never used Substance Use Topics Alcohol use: Not Currently Comment: 1991 Drug use: Not Currently ALLERGIES No Known Allergies Medications: Current Outpatient Medications Medication Sig Dispense Refill warfarin (COUMADIN) 2.5 mg tablet TAKE 1 TABLET BY MOUTH ONCE DAILY OR DIRECTED 90 tablet 0 tamsulosin (FLOMAX) 0.4 mg Take 2 capsules by mouth once daily. 180 capsule 1 gabapentin (NEURONTIN) 600 mg tablet Take 1 tablet by mouth daily at bedtime for 180 days. 90 tablet 1 potassium chloride (KLOR-CON 10) 10 mEq tablet Take 1 tablet by mouth two times a day. 180 tablet 3 magnesium oxide (MAGOX) 400 mg (241.3 mg magnesium) tablet Take 1 tablet by mouth two times a day. 180 tablet 3 semaglutide (OZEMPIC) 2 mg/dose (8 mg/3 mL) pen injector Inject 2 mg subcutaneously one time a week. 9 mL 1 ferrous sulfate 325 mg (65 mg iron) tablet Take 1 tablet by mouth every Sunday, Sunday, and Sunday. 60 tablet 2 insulin glargine (LANTUS SOLOSTAR U-100 INSULIN) 100 unit/mL (3 mL) Inject 30 Units subcutaneously daily at bedtime. levothyroxine (SYNTHROID) 50 mcg tablet TAKE 1 TABLET BY MOUTH ONCE DAILY ON AN EMPTY STOMACH FOR THYROID 90 tablet 0 amLODIPine (NORVASC) 5 mg tablet Take 1 tablet by mouth once daily. 90 tablet 3 lovastatin (MEVACOR) 20 mg tablet Take 1 tablet by mouth every other day. 90 tablet 3 metoprolol tartrate, short acting, (LOPRESSOR) 100 mg tablet Take 1 tablet by mouth twice daily. 180 tablet 3 apremilast (OTEZLA) 30 mg tablet Take 1 tablet by mouth twice daily. DULoxetine (CYMBALTA) 60 mg capsule Take 1 capsule by mouth once daily. 90 capsule 3 allopurinol (ZYLOPRIM) 100 mg tablet Take 2 tablets by mouth once daily. 180 tablet 3 warfarin (COUMADIN) 5 mg tablet Take 1 tablet by mouth once daily. 30 tablet 11 clobetasol (TEMOVATE) 0.05 % cream APPLY TO THE AFFECTED FLARES ON THE HANDS TWICE DAILY FOR 2 WEEKS THEN TAKE A WEEK OFF BEFORE RESUMING. lisinopril (ZESTRIL, PRINIVIL) 40 mg tablet Take 1 tablet by mouth once daily. 90 tablet 3 acetaminophen (TYLENOL) 500 mg tablet Take 500 mg by mouth as needed. LILO PEN NEEDLE 32 gauge x 5/32 ndle USE TWICE DAILY WITH INSULIN DOSE 200 Each 3 Blood Sugar Diagnostic, Drum (ACCU-CHEK COMPACT TEST) strp Test blood sugar(s) 4 times daily. Dx: DM 250 Insulin: Yes 51 Strip 11 Lancets (ACCU-CHEK SOFTCLIX LANCETS) Misc lancets three times daily as needed. Dx. 250.00 100 Each 11 No current facility-administered medications for this visit. Facility-Administered Medications Ordered in Other Visits Medication Dose Route Frequency Provider Last Rate Last Admin NaCl 0.9% iv infusion 500-999 mL/hr INTRAVENOUS PRN Gleason, Nabila diphenhydrAMINE 50 mg injection (BENADRYL) 50 mg INTRAVENOUS PRN Gleason, Nabila hydrocortisone sodium succinate (PF) 100 mg injection (Solu-CORTEF) 100 mg INTRAVENOUS PRN Gleason, Nabila EPINEPHrine HCl (PF) 1 mg/mL (1 mL) 0.3 mg injection 0.3 mg INTRAMUSCULAR PRN Gleason, Nabila NaCl 0.9% iv infusion 500-999 mL/hr INTRAVENOUS PRN Gleason, Nabila diphenhydrAMINE 50 mg injection (BENADRYL) 50 mg INTRAVENOUS PRN Gleason, Nabila hydrocortisone sodium succinate (PF) 100 mg injection (Solu-CORTEF) 100 mg INTRAVENOUS PRN Gleason, Nabila EPINEPHrine HCl (PF) 1 mg/mL (1 mL) 0.3 mg injection 0.3 mg INTRAMUSCULAR PRN Gleason, Nabila Review of Systems Constitutional: Negative for chills, diaphoresis, fever, malaise/fatigue and weight loss. HENT: Negative for congestion, ear discharge, ear pain, hearing loss, nosebleeds, sinus pain, sore throat and tinnitus. Eyes: Negative for blurred vision, double vision, photophobia, pain, discharge and redness. Respiratory: Negative for cough, hemoptysis, sputum production, shortness of breath, wheezing and stridor. Cardiovascular: Negative for chest pain, palpitations, orthopnea, claudication, leg swelling and PND. Gastrointestinal: Negative for abdominal pain, blood in stool, constipation, diarrhea, heartburn, melena, nausea and vomiting. Genitourinary: Negative for dysuria, flank pain, frequency, hematuria and urgency. Musculoskeletal: Negative for back pain, falls, joint pain, myalgias and neck pain. Skin: Negative for itching and rash. Neurological: Negative for dizziness, tingling, tremors, sensory change, speech change, focal weakness, seizures, loss of consciousness, weakness and headaches. Endo/Heme/Allergies: Negative for environmental allergies and polydipsia. Does not bruise/bleed easily. Psychiatric/Behavioral: Negative for depression, hallucinations, memory loss, substance abuse and suicidal ideas. The patient is not nervous/anxious and does not have insomnia. Physical Examination: Vitals:BP 129/71 Pulse 87 Wt 231 lb (104.8kg) SpO2 97% BP w/Orthostatic Vitals Date and Time Orthostatic BP Orthostatic Pulse BP Pulse BP Position BP Site BP Cuff Size 01/21/24 0958 -- -- 129/71 87 -- -- -- Last 2 Encounter Wt Readings: Date: Wt: 01/21/2024 104.8 kg (231 lb) 01/02/2024 105.5 kg (232 lb 8 oz) Physical Exam Constitutional: General: He is not in acute distress. Appearance: He is not diaphoretic. HENT: Head: Normocephalic and atraumatic. Right Ear: External ear normal. Left Ear: External ear normal. Nose: Nose normal. Mouth/Throat: Pharynx: Oropharynx is clear. Eyes: General: Right eye: No discharge. Left eye: No discharge. Conjunctiva/sclera: Conjunctivae normal. Pupils: Pupils are equal, round, and reactive to light. Cardiovascular: Rate and Rhythm: Normal rate and regular rhythm. Heart sounds: Normal heart sounds, S1 normal and S2 normal. No murmur heard. No friction rub. No gallop. No S3 or S4 sounds. Pulmonary: Effort: Pulmonary effort is normal. No respiratory distress. Breath sounds: Normal breath sounds. No wheezing or rales. Chest: Chest wall: No tenderness. Abdominal: General: Abdomen is flat. Musculoskeletal: General: Normal range of motion. Cervical back: Normal range of motion and neck supple. Skin: General: Skin is warm and dry. Neurological: Mental Status: He is alert and oriented to person, place, and time. Psychiatric: Mood and Affect: Mood normal. Thought Content: Thought content normal. Judgment: Judgment normal. Pertinent Labs: CBC: Hemoglobin (g/dL) Date Value 12/26/2023 10.2 10/24/2021 9.2 Hematocrit (%) Date Value 12/26/2023 31.7 10/24/2021 30.9 WBC (k/uL) Date Value 12/26/2023 5.33 10/24/2021 4.00 Platelet Count (k/uL) Date Value 12/26/2023 113 10/24/2021 105 BMP: Glucose (mg/dL) Date Value 12/26/2023 100 09/26/2021 146 Potassium (mmol/L) Date Value 12/26/2023 4.3 09/26/2021 3.6 Sodium (mmol/L) Date Value 12/26/2023 137 09/26/2021 136 Chloride (mmol/L) Date Value 12/26/2023 105 09/26/2021 98 CO2 (mmol/L) Date Value 12/26/2023 26 09/26/2021 22 Creatinine (mg/dL) Date Value 12/26/2023 1.06 09/26/2021 1.24 BUN (mg/dL) Date Value 12/26/2023 7 09/26/2021 12 Anion Gap (mmol/L) Date Value 12/26/2023 6 09/26/2021 16 Calcium (mg/dL) Date Value 09/26/2021 9.2 Calcium, Total (mg/dL) Date Value 12/26/2023 9.0 INR: Lipid Profile: Cholesterol, Total Date Value Ref Range Status 08/20/2023 118 <200 mg/dL Final Comment: <200 mg/dL, Desirable 200-239 mg/dL, Borderline high >239 mg/dL, High HDL Cholesterol Date Value Ref Range Status 08/20/2023 31 (L) >39 mg/dL Final Comment: 40-59 mg/dL, Acceptable >59 mg/dL, High: Negative risk factor for coronary heart disease <40 mg/dL, Low: Positive risk factor for coronary heart disease LDL Cholesterol Date Value Ref Range Status 08/20/2023 63 <100 mg/dL Final Comment: <100 mg/dL, Optimal 100-129 mg/dL, Near optimal/above optimal 130-159 mg/dL, Borderline high 160-189 mg/dL, High >189 mg/dL, Very high Secondary prevention optimal LDL Cholesterol levels are recommended to be < 70 mg/dL Triglyceride Date Value Ref Range Status 08/20/2023 120 <150 mg/dL Final Comment: <150 mg/dL, Normal 150-199 mg/dL, Borderline high 200-499 mg/dL, High >499 mg/dL, Very high Hemoglobin A1C: No results found for: HGBA1C TSH: No results found for: TSHREFL Prior Cardiac Testing none Assessment and Plan: 73 years old gentleman with history of dilated cardiomyopathy with LV improvement and atrial flutter status cardioversion he is in sinus rhythm ASSESSMENT/PLAN: 1. Pure hypercholesterolemia - ICD9: 272.0, ICD10: E78.00 (primary diagnosis) On therapy 2. Dual implantable cardioverter-defibrillator in situ - ICD9: V45.02, ICD10: Z95.810 Recent interrogation revealed less than 1% atrial flutter fibrillation otherwise he is in sinus rhythm Maintained on Coumadin 3. Coronary artery disease involving [place] coronary artery of [place] tribe heart without angina pectoris- ICD9: 414.01, ICD10: I25.10 No angina continue medical therapy 4. Atrial fibrillation, persistent (HCC) - ICD9: 427.31, ICD10: I48.19 Currently in sinus rhythm on Coumadin Keyshawn Ordonez MD Follow up planning: One year Electronically signed by Keyshawn Ordonez MD on January 21, 2024, 10:14 AM The above note was partially created using a dictation recognition software. A reasonable attempt has been made to correct any errors. documented in this encounter[facility]* Diagnosis Stage 3a chronic kidney disease (HCC)- Primary Iron deficiency anemia secondary to inadequate dietary iron intake Iron malabsorption Other specified intestinal malabsorption B12 deficiency Other B-complex deficiencies documented in this encounter [facility] Telephone encounter Note* Telephone Encounter - Freda Purdy LPN - 01/16/2024 4:35 PM EDT Patient notified and verbalized understanding. Freda Purdy LPN [facility]05-08-[facility]24 Miscellaneous Notes* Telephone Encounter - Freda Purdy LPN - 01/16/2024 4:35 PM EDT Patient notified and verbalized understanding. Freda Purdy LPN * Telephone Encounter - Lino Bhandari APRN.CNP - 01/16/2024 4:32 PM EDT INR is in range. Continue current dose and recheck in 4 weeks. Thank you Lino Bhandari APRN.OREN * Telephone Encounter - Freda Purdy LPN - 01/16/2024 4:08 PM EDT Last INR: INR (POCT) 2.1 01/09/2024 Current dose of coumadin is: Coumadin 5 mg M,W,F and 2.5 mg other days. Last date of dose change: 12/05/23. Previous INR (date and result): 01/09/24 2.1 Additional Clinical Information or narrative: no documented in this encounterProm[facility] Telephone encounter Note * Telephone Encounter - Lino Bhandari APRN.CNP - 01/16/2024 4:32 PM EDT INR is in range. Continue current dose and recheck in 4 weeks. Thank you Lino Bhandari APRN.JOB FOREMAN [facility] Telephone encounter Note* Telephone Encounter - Freda Purdy LPN - 01/16/2024 4:08 PM EDT Last INR: INR (POCT) 2.1 01/09/2024 Current dose of coumadin is: Coumadin 5 mg M,W,F and 2.5 mg other days. Last date of dose change: 12/05/23. Previous INR (date and result): 01/09/24 2.1 Additional Clinical Information or narrative: no [facility] Tele[facility] encounter Note* Telephone Encounter - Yaneth Bates RN - 01/11/2024 1:00 PM EDT Completed form faxed, copy given to admin to upload. Yaneth Bates RN [facility]05-03-[facility] Miscellaneous Notes* Telephone Encounter - Yaneth Bates RN - 01/11/2024 1:00 PM EDT Completed form faxed, copy given to admin to upload. Yaneth Bates RN * Telephone Encounter - Mary Ann Grewal - 01/09/2024 2:43 PM EDT Patient has been identified by name and date of : Yes, Provider Dr. Chavis Date 01/09/2024 [id number] Type of form: Clearance Request Form received via: Fax When form is completed, fax form to fax number provided. [phone] Form has been forwarded to: Nurse (printed) Mary Ann Grewal documented in this encounterProm[facility] Telephone encounter Note * Telephone Encounter - Mary Ann Grewal - 01/09/2024 2:43 PM EDT Patient has been identified by name and date of : Yes, Provider Dr. Chavis Date 01/09/2024 [id number] Type of form: Clearance Request Form received via: Fax When form is completed, fax form to fax number provided. [phone] Form has been forwarded to: Nurse (printed) Mary Ann Grewal [facility] Telephone encounter Note* Telephone Encounter - Serena Li APRN.CNP - 01/04/2024 10:42 AM EDT Rx sent [facility]04-26-[facility] Miscellaneous Notes* Telephone Encounter - Serean Li APRN.CNP - 01/04/2024 10:42 AM EDT Rx sent * Telephone Encounter - Saud Blas MA - 01/04/2024 9:03 AM EDT Pt notified, verbalized understanding. Asking for warfarin 2.5 mg to be sent to [facility]. * Telephone Encounter - Sagrario Williamson APRN.CNP - 01/04/2024 7:21 AM EDT Dose: No Change. Repeat in INR in 2 weeks Sagrario Williamson APRN.JOB FOREMAN * Telephone Encounter - Shelia Charles MA - 01/03/2024 1:12 PM EDT Last INR: INR (POCT) 2.8 01/02/2024 Current dose of coumadin is: 5 mg M,W,F and 2.5 mg other days. Last date of dose change: 12/05/23. Previous INR (date and result): 12/19/23 2.8 Additional Clinical Information or narrative: no documented in this encounterProm[facility]04-[facility] Telephone encounter Note * Telephone Encounter - Saud Blas MA - 01/04/2024 9:03 AM EDT Pt notified, verbalized understanding. Asking for warfarin 2.5 mg to be sent to [facility]. [facility] Telephone encounter Note* Telephone Encounter - Sagrario Williamson APRN.CNP - 01/04/2024 7:21 AM EDT Dose: No Change. Repeat in INR in 2 weeks Sagrario Williamson APRN.CNP [facility]04-[facility] Telephone encounter Note* Telephone Encounter - Shelia Charles MA - 01/03/2024 1:12 PM EDT Last INR: INR (POCT) 2.8 01/02/2024 Current dose of coumadin is: 5 mg M,W,F and 2.5 mg other days. Last date of dose change: 12/05/23. Previous INR (date and result): 12/19/23 2.8 Additional Clinical Information or narrative: no [facility] History of Present illness Narrative* Nabila Gleason - 01/02/2024 1:00 PM EDT Yazan Nolasco 1950 01/02/2024 DIAGNOSIS: Iron deficiency anemia and thrombocytopenia HPI: 72-year-old gentleman with history of hypertension, diabetes mellitus and on warfarin for dualpacemaker and defibrillator. Former patient of Dr. Floyd, referred back to Hematology by his morning news producer. He has hx of severe anemia in after cholecystectomy 2020. He received fresh frozen plasma and also 2 units of blood after surgery for hemoglobin of 7.0. He had unexplained weight loss prior to this year. Although he denied any rectal bleeding or black tarry stool. During the time of surgery, he wastold by his surgeon that he has cirrhosis. He has a history of fatty liver disease, and he had quitdrinking alcohol over 5 years ago. He has no history of viral hepatitis. He complained of increased fatigue and dyspnea on exertion in July, and a CBC revealed a hemoglobin of 6.7. His platelet counts were previously between 130,000 - 95,000. His iron study was consistent with iron deficiency anemia and his vitamin B12 level of 224 was borderline low. His stool was Hemoccult negative. He had EGD and colonoscopy previously and they were normal. He also had a capsule endoscopy study 3 years ago. He was given iron sucrose 200mg IV x 5. His anemia improved, but he still has symptoms of fatigue and shortness of breath with exertion. He denied dizziness or lightheadedness. No change in bowel habits. He bruises easily because of warfarin and thrombocytopenia. Overall his CBC remains stable over the last 2 years. He believes last colonoscopy 2004 - denies issues reports he was due back in 10 years. Started Otelza in April which has helped significantly. However not much of an appetite since starting medications. Mr. Nolasco presents back to Hematology for evaluation of ZORAIDA. He reports that over the last several years his energy has been low. No recent illnesses, or infections. Denies recent hospitalizations or surgeries. Ozempic titrated all the way antus dose reduced recently by PCP. He denies SOB, CP, palpitations. Reviewed OSH labs, Interim history: Mr. Rodgers states that he has been feeling more fatigued. Nose bleeds daily in the mornings. No unintentional weight loss. Denies neuropathy, RLS. No PICA or ice cravings. On PO iron without significant improvement. No N/V/C/D. All medications & allergies updated and reviewed by me. REVIEW OF SYSTEMS: All systems reviewed on 01/02/2024 with pertinent positives and negatives as outlined in the interval history. PHYSICAL EXAMINATION: 72-year-old elderly gentleman in no acute distress BP 117/75 Pulse 87 Temp (Src) 97.4 (Temporal) Wt 232 lb 8 oz (105.5kg) SpO2 99% HEENT: Head is normocephalic, atraumatic. Sclerae white, conjunctivae pink. LYMPHATICS: There is no palpable adenopathy in the neck, supraclavicular region, axillae. LUNGS: Lungs are clear auscultation, no wheezes, rhonchi HEART: Heart is normal without murmurs, gallops, or rubs. ABDOMEN: Obese soft and nontender without organomegaly. No masses can be palpated. EXTREMITIES: Are without edema. + Ecchymosis ( 2 - 3 cm ) on extremities but no petechiae. NEUROLOGIC: No focal deficits. I have performed the physical exam today (01/02/2024) and have edited the note to correlate with current findings. LABORATORY DATA: Latest Reference Range & Units 02/16/23 09:16 04/20/23 07:58 08/20/23 07:24 10/03/23 11:42 WBC 3.70 - 11.00 k/uL 6.31 6.39 5.93 5.71 RBC 4.20 - 6.00 m/uL 4.30 4.71 4.49 4.59 Hemoglobin 13.0 - 17.0 g/dL 10.8 (L) 11.4 (L) 10.9 (L) 11.6 (L) Hematocrit 39.0 - 51.0 % 34.2 (L) 37.0 (L) 35.2 (L) 36.5 (L) Platelet Count 150 - 400 k/uL 141 (L) 129 (L) 124 (L) 117 (L) MCV 80.0 - 100.0 fL 79.5 (L) 78.6 (L) 78.4 (L) 79.5 (L) MCH 26.0 - 34.0 pg 25.1 (L) 24.2 (L) 24.3 (L) 25.3 (L) MCHC 30.5 - 36.0 g/dL 31.6 30.8 31.0 31.8 MPV 9.0 - 12.7 fL 9.8 10.4 9.1 9.6 RDW-CV 11.5 - 15.0 % 16.8 (H) 16.6 (H) 17.7 (H) 17.5 (H) (L): Data is abnormally low (H): Data is abnormally high Component Latest Ref Rng & Units 01/31/2022 Hep C Antibody IA Negative Negative Hep B Surface Ag Negative Negative Hep B Surface Ab, Qual Negative Negative Hep B Core Ab, Total Negative Negative ASSESSMENT/ PLAN Mr. Nolasco is a pleasant 73 year old gentleman with iron deficiency anemia and chronic thrombocytopenia secondary to fatty liver disease vs early cirrhosis. -Stage 3a, chronic kidney disease -Anemia improved with IV iron infusion; and fecal occult was negative .Will plan for IV iron sucrose x5 due to count with CKD. -Moderate thrombocytopenia without excessive bleeding, with occasional bruising on warfarin. -Reviewed cbc and recent iron studies in detail. Overall labs have remained stable over the last several years. No indication for repeat IV iron at this time. No bleeding. Plts are stable. He believes last colonoscopy 2004 - denies issues reports he was due back in 10 years. Will refer back to GI at this time for repeat scope as he is due for screening. Scheduled for 02/04 -May consider starting erythropoietin injections for treatment of anemia of chronic disease secondary to chronic renal failure, however not indicated at this time as hgb is stable and remains >10. - B12 low - will start on weekly IM due to concern for lack of absorption. RTC about 6 - 8 weeks following last IV iron with CBC, CMP, iron studies, and B12 - Nabila Gleason APRN.JOB FOREMAN I spent a total of 30 minutes on the date of the service which included preparing to see the patient, [id number] patient care, completing clinical documentation, counseling and educating the patient/family/caregiver, and communicating results to the patient/family/caregiver. Portions of this note including HPI, ROS, impression/plan may have been copied forward as to provide important historical information essential in contributing to medical decision making. Documentation has been reviewed and edited as necessary to support clinical decision making for today's visit and to reflect my own independent evaluation of this patient. documented in this encounterProm[facility]04[facility] Miscellaneous Notes* Telephone Encounter - Shelia Charles MA - 12/20/2023 11:04 AM EDT Patient notified. * Telephone Encounter - Ary Beck OCCA - 12/20/2023 10:10 AM EDT TC to patient, no answer. Unable to leave as mailbox not set up. Please try again later. Anticoag tracker updated. RONNIE Watters * Telephone Encounter - Lino Bhandari APRN.CNP - 12/20/2023 7:07 AM EDT Inr is in goal range. Continue current dosing and recheck in 2 weeks Lino Bhandari APRN.CNP * Telephone Encounter - Freda Purdy LPN - 12/19/2023 3:48 PM EDT Last INR: INR (POCT) 2.8 12/19/2023 Current dose of coumadin is: coumadin 5 mg M,W,F nd 2.5mg. Last date of dose change: 12/05/23. Previous INR (date and result): 12/05/23 3.2 Additional Clinical Information or narrative: no documented in this encounterPromed[facility]03-13-[facility] Miscellaneous Notes* Telephone Encounter - Shelia Charles Ma - 11/21/2023 6:23 PM EDT Patient notified. * Telephone Encounter - Lino Bhandari APRN.CNP - 11/21/2023 4:43 PM EDT Last INR was 11/07/23 and was 1.9 so slightly increased. I do not see any other levels since. With him slightly being elevated he can go back to 2.5mg MWF and 5mg all other days. Recheck in 2 weeks. Thank you Lino Bhandari APRN.CNP * Telephone Encounter - Freda Purdy LPN - 11/21/2023 2:08 PM EDT Last INR: INR (POCT) 3.1 11/21/2023 Current dose of coumadin is: Coumadin 5 mg Mon-Fri and 2.5mg Sat, Sun. Last date of dose change: 11/07/23. Previous INR (date and result): 11/14/23 3.2 Additional Clinical Information or narrative: no, no missed doses, no diet change documented in this encounterPromedica [facility]03-[facility] History of Present illness Narrative* Karla Marti RDMS - 11/16/2023 10:45 AM EST Radiology Service Progress Note PATIENT NAME: Yazan Nolasco DATE OF SERVICE: November 16, 2023 TIME: 11:45 AM PATIENT IDENTITY VERIFICATION COMPLETED USING TWO (2) IDENTIFIERS: Name and Date of confirmedby patient verbally. FALL SCREENING: Has the patient had 2 falls in the last year or 1 fall with injury or currently using an Ambulatory Assistive Device (Walker, Cane, Wheelchair, Crutches, etc.)? No PATIENT GENDER DATA: Male PATIENT RELEVANT IMPLANT DATA REVIEWED: Not Applicable PATIENT PRESENTS WITH AN IMPLANTABLE OR ATTACHED APPELLATE COURT CLERK: No RADIOLOGY DEPARTMENT: Ultrasound PERIPHERAL IV DATA: Not applicable SIGNED BY: Karla Marti RDMS November 16, 2023 11:45 AM documented in this encounterPromedica [facility]03-01-[facility]24 History of Present illness Narrative* Lino Bhandari APRN.OREN - 11/09/2023 10:46 AM EST CC: Patient presents with: Recheck: 6 week follow up HPI Yazan Nolasco is a 73 year old male who presents today for diabetic follow up. Was last seen 6 weeks ago with A1c of 4.8 so metformin held and lantus decreased. DIABETES MELLITUS: Mr. Nolasco denies excessive thirst or increased frequency of urination, chest pain or dyspnea , numbness, tingling or pain in extremities, new or unusual visual symptoms, low sugar/hypoglycemic reactions, weight loss/gain, lightheadedness/dizziness, and bowel changes/loose stools. Follows a diabetic diet most of the time. He is compliant with medication(s) and is tolerating med(s) without any side effects. He reports checking his glucose on a three times a day schedule with sugars in the fasting 90s-100 and postprandial 120s-150s range. Patient's last HgA1C was Hemoglobin A1C (%) Date Value 07/23/2023 4.7 04/20/2023 4.7 08/08/2021 8.2 05/04/2021 9.1 Hemoglobin A1C (POCT) (%) Date Value 08/22/2022 6.0 10/10/2021 4.8 ) Last Ophthalmology exam was over a year ago. Needs to schedule his annual exam. 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 Diabetes mellitus (HCC) Diarrhea Dual implantable cardioverter-defibrillator in situ Dyslipidemia Esophageal reflux Ex-smoker Hypothyroidism 11/21/2022 Mononeuritis of unspecified site Obesity, unspecified Other chronic nonalcoholic liver disease Personal history of colonic polyps 03/20/2005 hyperplastic polyps Unspecified essential hypertension PAST SURGICAL HISTORY Procedure Laterality Date BSCAN OS (LEFT EYE) Left CARDIOVERSION 04/30/2023 COLONOSCOPY FLX DX W/COLLJ SPEC WHEN PFRMD 03/20/2005 Colonoscopy COLONOSCOPY FLX DX W/COLLJ SPEC WHEN PFRMD 06/15/2015 Colonoscopy [facility] out pt ENDOSCOPY PROC 08/2018 ESOPHAGOGASTRODUODENOSCOPY TRANSORAL DIAGNOSTIC 06/15/2015 EGD [facility] out pt EXCISION PILONIDAL CYST/SINUS SIMPLE 01/19/2003 Excision pilonidal cyst PACEMAKER SURGERY 03/11/2012 pacer/defib PACEMAKER SURGERY 09/17/2018 PAST SURGICAL HISTORY OF 09/16/2012 eye surgery, s/p Plaque OS PRO SMART PILL CAPSULE PROC ([id number]) 10/15/2018 REMOVAL GALLBLADDER 06/10/2021 REMOVE PACEMAKER SYSTEM 09/17/2018 replaced it all RPR UMBILICAL HERNIA < 5 YRS REDUCIBLE 02/17/1999 Hernia repair, umbilical ALLERGIES Patient has no known allergies. MEDICATIONS ferrous sulfate 325 mg (65 mg iron) tablet Take 1 tablet by mouth every Sunday, Sunday, and Sunday. insulin glargine (LANTUS SOLOSTAR U-100 INSULIN) 100 unit/mL (3 mL) Inject 30 Units subcutaneously daily at bedtime. levothyroxine (SYNTHROID) 50 mcg tablet TAKE 1 TABLET BY MOUTH ONCE DAILY ON AN EMPTY STOMACH FOR THYROID amLODIPine (NORVASC) 5 mg tablet Take 1 tablet by mouth once daily. warfarin (COUMADIN) 2.5 mg tablet TAKE 1 TABLET BY MOUTH ONCE DAILY OR DIRECTED semaglutide (OZEMPIC) 1 mg/dose (4 mg/3 mL) pen Inject 1 mg subcutaneously one time a week. magnesium oxide (MAGOX) 400 mg (241.3 mg magnesium) tablet Take 1 tablet by mouth twice daily. potassium chloride (KLOR-CON 10) 10 mEq tablet Take 1 tablet by mouth twice daily. lovastatin (MEVACOR) 20 mg tablet Take 1 tablet by mouth every other day. metoprolol tartrate, short acting, (LOPRESSOR) 100 mg tablet Take 1 tablet by mouth twice daily. tamsulosin (FLOMAX) 0.4 mg Take 2 capsules by mouth once daily. apremilast (OTEZLA) 30 mg tablet Take 1 tablet by mouth twice daily. DULoxetine (CYMBALTA) 60 mg capsule Take 1 capsule by mouth once daily. allopurinol (ZYLOPRIM) 100 mg tablet Take 2 tablets by mouth once daily. warfarin (COUMADIN) 5 mg tablet Take 1 tablet by mouth once daily. gabapentin (NEURONTIN) 600 mg tablet Take 1 tablet by mouth daily at bedtime for 180 days. clobetasol (TEMOVATE) 0.05 % cream APPLY TO THE AFFECTED FLARES ON THE HANDS TWICE DAILY FOR 2 WEEKS THEN TAKE A WEEK OFF BEFORE RESUMING. lisinopril (ZESTRIL, PRINIVIL) 40 mg tablet Take 1 tablet by mouth once daily. acetaminophen (TYLENOL) 500 mg tablet Take 500 mg by mouth as needed. LILO PEN NEEDLE 32 gauge x ndle USE TWICE DAILY WITH INSULIN DOSE Blood Sugar Diagnostic, Drum (ACCU-CHEK COMPACT TEST) strp Test blood sugar(s) 4 times daily. Dx: DM 250 Insulin: Yes Lancets (ACCU-CHEK SOFTCLIX LANCETS) Misc lancets three times daily as needed. Dx. 250.00 FAMILY HISTORY Problem Relation Age of Onset Heart Mother of CHF at 91 Stroke Mother Hypertension Mother other (Other) Father at 87 of a brain aneurysm Hypertension Brother Stroke Brother Heart Brother Goiter Maternal Grandmother Aneurysm Maternal Grandfather brain No Ocular Disease Other Colon Cancer No Family History Social History Tobacco Use Smoking status: Former Packs/day: 1.00 Years: 40.00 Additional pack years: 0.00 Total pack years: 40.00 Types: Cigarettes Quit date: 03/26/2009 Years since quittin.6 Smokeless tobacco: Never Vaping Use Vaping Use: Never used Substance Use Topics Alcohol use: Not Currently Comment: 1991 Drug use: Not Currently PHYSICAL EXAM BP 128/78 Pulse 80 Resp 16 Wt 106.1 kg (234 lb) BMI 35.06 kg/m General Appearance: well appearing, in no acute distress, alert Eyes: conjunctiva pink and moist, no icterus, sclera white, non-injected Lungs: Lungs clear to auscultation. No wheezing, rhonchi, rales. Heart: RRR without murmur, gallop, or rubs. No ectopy Health maintenance reviewed with patient: BP Controlled (<130/80) Never done Dilated Retinal Exam due on 11/24/2022 Diabetic Foot Exam due on 11/22/2023 DTaP,Tdap,Td Vaccine(3 - Td or Tdap) due on 09/27/2024 Hepatitis B Vaccine(1 of 3 - Risk 3-dose series) due on 09/27/2024 Shingrix Vaccine(1 of 2) due on 09/27/2024 Covid-19 Vaccine( season) due on 09/27/2024 HbA1C due on 01/21/2024 LDL Cholesterol due on 08/20/2024 Annual PCP Team Chronic Disease Visit due on 09/27/2024 Serum Creatinine due on 10/03/2024 Colorectal Cancer Screening due on 06/15/2025 Abdominal Aortic Aneurysm Screening Completed Influenza Vaccine Completed Advance Directive Discussion Completed RSV Vaccine Completed Hepatitis C Screening Completed Pneumococcal Vaccine: 65+ Completed HPV Vaccine Aged Out Urine Albumin:Creatinine Ratio Discontinued DATA REVIEWED: No new labs ASSESSMENT/PLAN: 1. Type 2 diabetes mellitus with stage 3a chronic kidney disease, with long-term current use of insulin (HCC) - ICD9: 250.40, 585.3, V58.67, ICD10: E11.22, N18.31, Z79.4 (primary diagnosis) - Controlled outside of slightly elevated post prandial - increasing ozempic - follow up in 3 months - Blood glucose monitoring on a twice daily schedule - Counseled on healthy diet and regular exercise - Discussed need for and benefit of weight loss. BMI 35.06 kg/(m^2) - eGFR: 68 Stable - Counseled on avoiding NSAIDs, adequate hydration 2. Nocturia - ICD9: 788.43, ICD10: R35.1 Not discussed today, refill needed - TAMSULOSIN 0.4 MG CAPSULE 3. Hypokalemia - ICD9: 276.8, ICD10: E87.6 Not discussed today, refill needed Recent potassium WNL - POTASSIUM CHLORIDE ER 10 MEQ TABLET,EXTENDED RELEASE 4. Paroxysmal atrial fibrillation (HCC) - ICD9: 427.31, ICD10: I48.0 Not discussed today, refill needed - MAGNESIUM OXIDE 400 MG (241.3 MG MAGNESIUM) TABLET 5. Hypomagnesemia - ICD9: 275.2, ICD10: E83.42 Not discussed today, refill needed - MAGNESIUM OXIDE 400 MG (241.3 MG MAGNESIUM) TABLET Prescription instructions reviewed with patient as applicable. Potential red flag symptoms discussed with the patient. Reviewed appropriate action plan to take if red flag symptoms occur. Patient agreeable to treatment plan. Lino Bhandari APRN.CNP documented in this encounter[facility] note* Diagnosis Type 2 diabetes mellitus with stage 3a chronic kidney disease, with long-term current use of insulin (HCC)- Primary Nocturia Hypokalemia Hypopotassemia Paroxysmal atrial fibrillation (HCC) Atrial fibrillation Hypomagnesemia Disorders of magnesium metabolism documented in this encounter [facility]02-28-[facility] Miscellaneous Notes* Telephone Encounter - Lillian Bo MA - 11/07/2023 3:08 PM EST Patient notified and verbalized understanding. Lillian oB MA * Telephone Encounter - Lino Bhandari APRN.CNP - 11/07/2023 2:08 PM EST Increase to 5mg 5 days a week and 2.5 mg 2 days a week. Recheck in 2 weeks. Thank you Lino Bhandari APRN.CNP * Telephone Encounter - Freda Purdy LPN - 11/07/2023 2:00 PM EST Patient did not miss any doses and did have some salads. Notes no changes. Patient is having a colonoscopy done at [facility] in January and has to stop warfin 5 days before procedure. Please review and advise. Freda Purdy LPN * Telephone Encounter - Lino Bhandari APRN.CNP - 11/07/2023 1:56 PM EST Has patient missed any doses or been on any antibiotics or diet change? Thank you Lino Bhandari APRN.JOB FOREMAN * Telephone Encounter - Lillian Bo MA - 11/07/2023 12:13 PM EST PT INR Date Value Ref Range Status 11/07/2023 1.9 (A) 2 - 3 Final Patient taking 2.5 mg MWF and 5 mg all other days. Lillian Bo MA documented in this encounterProm[facility]02-27-[facility]24 Instructions* Patient Instructions* Jennifer Shepherd PA-C - 11/06/2023 3:20 PM EST Images from the original note were not included. Bowel Preparation Instructions for: Miralax-Gatorade Preparations IF YOU DO NOT FOLLOW THESE DIRECTIONS, YOUR COLONOSCOPY WILL BE CANCELLED. Freeman Instructions: Your bowel must be empty so that your doctor can clearly view your colon. Follow all of the instructions in this handout EXACTLY as they are written. Do NOT eat any solid food the ENTIRE day before your colonoscopy. Buy your bowel preparation at least 5 days before your colonoscopy. Four (4) Dulcolax laxative tablets containing 5mg of bisacodyl each (NOT Dulcolax stool softener) One (1) 8.3oz. bottle Miralax (238 grams) or generic equivalent 2 x 32oz. Bottles of Gatorade (NOT RED) Diabetic Patients: Use G2 (Gatorade 2) TRANSPORTATION on the Day of Your Exam A responsible adult MUST be present with you at Check In prior to your colonoscopy and REMAIN in the endoscopy area until you are discharged. You are NOT ALLOWED to drive, take a taxi or bus, or leave the Endoscopy Center ALONE. If you do not have a responsible cmv driver (family member or friend) withyou to take you home, your exam cannot be done with sedation and will be cancelled. Please bring a list of all of your current medications, including any [id number] medications with you. Medications If you take insulin, diabetic medications or blood thinners such as Coumadin (warfarin), Plavix (clopidogrel), Ticlid (ticlopidine hydrochloride), Agrylin (anagrelide), Xarelto (Rivaroxaban), Pradaxa(Dabigatran), Eliquis (Apixaban), and Effient (Prasugrel). You MUST call the doctors who orders those medicines for instructions on altering the dosage before your colonoscopy. All other medications should be taken the day of the exam with a sip of water including ASPIRIN. Five (5) Days Before Your Colonoscopy Do NOT take medicines that stop diarrhea - such as Imodium, Kaopectate, or Pepto Bismol. Do NOT take fiber supplements - such as Metamucil, Citrucel, or Perdiem. Do NOT take products that contain iron - such as multi-vitamins (the label lists what is in the products). Three (3) Days Before Your Colonoscopy Do NOT eat high-fiber foods - such as popcorn, beans, seeds (flax, sunflower, quinoa), multigrain bread, nuts, salad/vegetables, or fresh and dried fruit. 1 Bowel Preparation Instructions for: Miralax-Gatorade Preparations One (1) Day Before Your Colonoscopy Only drink clear liquids the ENTIRE DAY before your colonoscopy. Do NOT eat any solid foods. Drink at least 8 ounces of clear liquids every hour after waking up. The clear liquids you can drink include: Clear Liquid (NO RED LIQUIDS) DO NOT DRINK Gatorade, Pedialyte or Powerade Clear broth or bouillon Coffee or tea (no milk or non-dairy creamer) Carbonated and non-carbonated soft drinks Jacques-Aid or other fruit flavored drinks Strained fruit juices (no pulp) Jell-O, popsicles, hard candy Water Alcohol Milk or non-dairy creamers Noodles or vegetables in soup Juice with pulp Liquid you cannot see through Do not use tobacco/vaping products Mix 1/2 of Miralax bottle (119 grams) in each 32 ounces of Gatorade bottle until dissolved. Keep cool in the refrigerator. DO NOT ADD ICE. The bowel preparation solution will be consumed in two parts. Part 1 5:00 PM - Evening before your colonoscopy Take 4 Dulcolax tablets. 6 PM - Evening before your colonoscopy Drink 32 oz. of the mixed solution. Drink an 8 oz. glass of bowel preparation every 15 minutes for a total of 4 glasses. Fifteen (15) minutes later, drink an 8 oz. glass of of clear liquids every 15 minutes for a total of 2 glasses. You may continue to drink clear liquids till midnight. Part 2 On the day of your colonoscopy you may drink clear liquids up to (three) 3 hours prior to procedure. 4 1/2 hours before your colonoscopy Take another 32 oz. bottle of mixed solution. Drink an 8 oz. glass of bowel prep every 15 minutes for a total of 4 glasses. Fifteen (15) minutes later, drink an 8 oz. glass of clear liquids every 15 minutes for a total of 2glasses. You may continue to drink clear liquids up to (three) 3 hours before your exam. 2 08/2019 documented in this encounterProm[facility]02-27-[facility] History of Present illness Narrative* Jennifer Shepherd PA-C - 11/06/2023 2:54 PM EST CHIEF COMPLAINT: Patient presents with: Anemia: Labs 1/24/24 HPI: Yazan Nolasco is a 73 year old male with PMHx positive for CAD, DM, HLD, CKD, who presents for Anemia (Labs 10/03/23). Surg hx positive for cholecystectomy, pacemaker/defibrillator, umbilical herniarepair. Referred by Heme-Onc for chronic anemia. Last EGD 2018 was normal, no specimens. Last [id number] showed 15 mm suspected lipoma. Has had VCE in 2019 that was normal. Bms are daily, normal to constipated consistency, no blood/black coloring. Reports hx of colon polyps in the past. H/O EtOH abuse, sober for the past 27 yrs. Denies N/V, abd pain, unintentional weight loss, GERD. EGD 2017 Impression: - Normal esophagus. - Normal stomach. - Normal examined duodenum. - No specimens collected. Component Latest Ref Rng & Units 10/01/2023 10/03/2023 Abs Neut (ANC) 1.45 - 7.50 k/uL 3.29 Lymph% % 31.5 Abs Lymph 1.00 - 4.00 k/uL 1.80 Ware% % 6.8 Abs Ware <0.87 k/uL 0.39 Eosin% % 2.5 Abs Eosin <0.46 k/uL 0.14 Baso% % 1.4 Abs Baso <0.11 k/uL 0.08 Immature Gran % % 0.2 IMMATURE GRANS (ABS) <0.10 k/uL <0.03 NRBC /100 WBC 0.0 Absolute nRBC <0.01 k/uL <0.01 DTYPE Auto Protein, Total 6.3 - 8.0 g/dL 6.9 Albumin 3.9 - 4.9 g/dL 3.5 (L) Calcium 8.5 - 10.2 mg/dL 9.0 Bilirubin, Total 0.2 - 1.3 mg/dL 0.3 Alkaline Phosphatase 38 - 113 U/L 158 (H) AST 14 - 40 U/L 27 ALT 10 - 54 U/L 12 Glucose 74 - 99 mg/dL 88 BUN 9 - 24 mg/dL 6 (L) Creatinine 0.73 - 1.22 mg/dL 1.14 Sodium 136 - 144 mmol/L 139 Potassium 3.7 - 5.1 mmol/L 4.3 Chloride 97 - 105 mmol/L 100 CO2 22 - 30 mmol/L 25 Anion Gap 9 - 18 mmol/L 14 eGFR >=60 mL/min/1.73m 68 Iron 41 - 186 ug/dL 53 TIBC 232 - 386 ug/dL 300 Transferrin Saturation 15.0 - 57.0 % 17.7 Ferritin 30.3 - 565.7 ng/mL 40.5 Vitamin B12 232 - 1,245 pg/mL 307 Copper 70 - 140 ug/dL 97 Record Review: [facility] / Outside records reviewed. 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 Diabetes mellitus (HCC) Diarrhea Dual implantable cardioverter-defibrillator in situ Dyslipidemia Esophageal reflux Ex-smoker Hypothyroidism 11/21/2022 Mononeuritis of unspecified site Obesity, unspecified Other chronic nonalcoholic liver disease Personal history of colonic polyps 03/20/2005 hyperplastic polyps Unspecified essential hypertension PAST SURGICAL HISTORY Procedure Laterality Date BSCAN OS (LEFT EYE) Left CARDIOVERSION 04/30/2023 COLONOSCOPY FLX DX W/COLLJ SPEC WHEN PFRMD 03/20/2005 Colonoscopy COLONOSCOPY FLX DX W/COLLJ SPEC WHEN PFRMD 06/15/2015 Colonoscopy [facility] out pt ENDOSCOPY PROC 08/2018 ESOPHAGOGASTRODUODENOSCOPY TRANSORAL DIAGNOSTIC 06/15/2015 EGD [facility] out pt EXCISION PILONIDAL CYST/SINUS SIMPLE 01/19/2003 Excision pilonidal cyst PACEMAKER SURGERY 03/11/2012 pacer/defib PACEMAKER SURGERY 09/17/2018 PAST SURGICAL HISTORY OF 09/16/2012 eye surgery, s/p Plaque OS PRO SMART PILL CAPSULE PROC ([id number]) REMOVAL GALLBLADDER 06/10/2021 REMOVE PACEMAKER SYSTEM 09/17/2018 replaced it all RPR UMBILICAL HERNIA < 5 YRS REDUCIBLE 02/17/1999 Hernia repair, umbilical Allergies: ALLERGIES No Known Allergies Medications: ferrous sulfate 325 mg (65 mg iron) tablet Take 1 tablet by mouth every Sunday, Sunday, and Sunday. insulin glargine (LANTUS SOLOSTAR U-100 INSULIN) 100 unit/mL (3 mL) Inject 30 Units subcutaneously daily at bedtime. levothyroxine (SYNTHROID) 50 mcg tablet TAKE 1 TABLET BY MOUTH ONCE DAILY ON AN EMPTY STOMACH FOR THYROID amLODIPine (NORVASC) 5 mg tablet Take 1 tablet by mouth once daily. warfarin (COUMADIN) 2.5 mg tablet TAKE 1 TABLET BY MOUTH ONCE DAILY OR DIRECTED semaglutide (OZEMPIC) 1 mg/dose (4 mg/3 mL) pen Inject 1 mg subcutaneously one time a week. magnesium oxide (MAGOX) 400 mg (241.3 mg magnesium) tablet Take 1 tablet by mouth twice daily. potassium chloride (KLOR-CON 10) 10 mEq tablet Take 1 tablet by mouth twice daily. lovastatin (MEVACOR) 20 mg tablet Take 1 tablet by mouth every other day. metoprolol tartrate, short acting, (LOPRESSOR) 100 mg tablet Take 1 tablet by mouth twice daily. tamsulosin (FLOMAX) 0.4 mg Take 2 capsules by mouth once daily. apremilast (OTEZLA) 30 mg tablet Take 1 tablet by mouth twice daily. DULoxetine (CYMBALTA) 60 mg capsule Take 1 capsule by mouth once daily. allopurinol (ZYLOPRIM) 100 mg tablet Take 2 tablets by mouth once daily. warfarin (COUMADIN) 5 mg tablet Take 1 tablet by mouth once daily. gabapentin (NEURONTIN) 600 mg tablet Take 1 tablet by mouth daily at bedtime for 180 days. ipratropium-albuterol (DUONEB) 0.5 mg-3 mg(2.5 mg base)/3 mL nebu Inhale 3 mL as instructed three times daily. (Patient taking differently: Inhale 3 mL as instructed every 6 hours as needed.) clobetasol (TEMOVATE) 0.05 % cream APPLY TO THE AFFECTED FLARES ON THE HANDS TWICE DAILY FOR 2 WEEKS THEN TAKE A WEEK OFF BEFORE RESUMING. lisinopril (ZESTRIL, PRINIVIL) 40 mg tablet Take 1 tablet by mouth once daily. acetaminophen (TYLENOL) 500 mg tablet Take 500 mg by mouth as needed. LILO PEN NEEDLE 32 gauge x 5/32 ndle USE TWICE DAILY WITH INSULIN DOSE Blood Sugar Diagnostic, Drum (ACCU-CHEK COMPACT TEST) strp Test blood sugar(s) 4 times daily. Dx: DM 250 Insulin: Yes Lancets (ACCU-CHEK SOFTCLIX LANCETS) Misc lancets three times daily as needed. Dx. 250.00 FAMILY HISTORY Problem Relation Age of Onset Heart Mother of CHF at 91 Stroke Mother Hypertension Mother other (Other) Father at 87 of a brain aneurysm Hypertension Brother Stroke Brother Heart Brother Goiter Maternal Grandmother Aneurysm Maternal Grandfather brain No Ocular Disease Other Employer And Job Title: [employer] (retired) Years Of Education Completed: Not specified Marital Status: to kiley with 2 children Social History Tobacco Use Smoking status: Former Packs/day: 1.00 Years: 40.00 Additional pack years: 0.00 Total pack years: 40.00 Types: Cigarettes Quit date: 03/26/2009 Years since quittin.6 Smokeless tobacco: Never Vaping Use Vaping Use: Never used Substance Use Topics Alcohol use: Not Currently Comment: 1991 Drug use: Not Currently Review of Systems: Review of Systems All other systems reviewed and are negative. Are you taking any blood thinners? Yes, Coumadin Physical Examination: BP 132/76 Pulse 82 Ht 174 cm (5' 8.5) Wt 107.5 kg (237 lb) BMI 35.51 kg/m Physical Exam Constitutional: General: He is not in acute distress. Appearance: Normal appearance. He is normal weight. He is not ill-appearing, toxic-appearing or diaphoretic. HENT: Head: Normocephalic and atraumatic. Nose: Nose normal. Eyes: General: No scleral icterus. Right eye: No discharge. Left eye: No discharge. Extraocular Movements: Extraocular movements intact. Conjunctiva/sclera: Conjunctivae normal. Pupils: Pupils are equal, round, and reactive to light. Cardiovascular: Rate and Rhythm: Normal rate and regular rhythm. Pulses: Normal pulses. Heart sounds: Normal heart sounds. No murmur heard. No friction rub. No gallop. Pulmonary: Effort: No respiratory distress. Breath sounds: Normal breath sounds. No stridor. No wheezing, rhonchi or rales. Chest: Chest wall: No tenderness. Abdominal: General: Abdomen is flat. Bowel sounds are normal. There is no distension. Palpations: Abdomen is soft. There is no mass. Tenderness: There is no abdominal tenderness. There is no right CVA tenderness, left CVA tenderness, guarding or rebound. Hernia: No hernia is present. Musculoskeletal: General: Normal range of motion. Cervical back: Normal range of motion and neck supple. Skin: General: Skin is warm and dry. Neurological: General: No focal deficit present. Mental Status: He is alert and oriented to person, place, and time. Psychiatric: Mood and Affect: Mood normal. Behavior: Behavior normal. Assessment/Plan (D64.9) Anemia, unspecified type (primary encounter diagnosis) (Z86.010) History of colonic polyps (R93.2) Abnormal finding on imaging of liver (R74.8) Elevated alkaline phosphatase level 1. Anemia, unspecified type - COLONOSCOPY DIAGNOSTIC; Future - EGD DIAGNOSTIC; Future - Heme-Onc following. On oral Fe daily. OAC w/ coumadin - EGD/Colon to r/o GI sources of anemia. Potential hx of cirrhosis, r/o EV - Advised to start full cap Miralax daily to help regulate bowels 2. History of colonic polyps - COLONOSCOPY DIAGNOSTIC; Future 3. Abnormal finding on imaging of liver - US ABD RIGHT UPPER QUADRANT; Future - ALK PHOS ISOENZYM BL; Future - MITOCHONDRIAL M2 IGG SERUM; Future - Reports hx of fatty liver disease and being told by surgeon in the past that he had cirrhosis. Most recent US 2021 showed coarsened appearance. Advised obtaining updated RUQ US, lab testing - Sober for 27 yrs 4. Elevated alkaline phosphatase level - US ABD RIGHT UPPER QUADRANT; Future - ALK PHOS ISOENZYM BL; Future - MITOCHONDRIAL M2 IGG SERUM; Future I spent a total of 22 minutes on the date of the service which included preparing to see the patient, [id number] patient care, completing clinical documentation, obtaining and/or reviewing separately obtained history, performing a medically appropriate examination, counseling and educating the pat ient/family/caregiver, ordering medications, tests, or procedures, communicating with other HCPs (not separately reported), independently interpreting results (not separately reported), communicatingresults to the patient/family/caregiver, and care coordination (not separately reported). Jennifer Shepherd PA-C November 06, 2023 3:21 PM documented in this encounterProm[facility]01-12-[facility] History of Present illness Narrative* Christoph Chavis MD - 09/21/2023 3:04 PM EST HISTORY OF PRESENT ILLNESS The above relevant present and past medical Hx was verified and the exam findings were confirmed with additional exam findings added/clarified and/or corrected in my exam below. Additional Hx/summaryis as follows: F/U for PAF, VT, CAD, s/p ICD. He reports doing well. He had a DCCV in April for AF, and feels better, with better energy level, and better BP (BP was low in AF). He had an episode on 's Evewhen he became disoriented, diaphoretic, low BP. He used O2 and rested and Sx resolved. He had gotten up to use the restroom and was unable to get off of the commode during this episode. Cardiac meds reviewed. INR is managed by [facility] and is checked weekly at home by the patient. No problems with warfarin. Meds and allergies were reviewed/updated in [facility]. General - Well-developed, obese, no acute distress. HEENT - Normocephalic, atraumatic. Neck -Supple, no JVD, no bruits, no thyromegaly. Heart - RRR, no murmur. Lungs - CTA bilaterally. Device site - Well healed, L upper chest. Abdomen - Positive bowel sounds, no bruit, no organomegaly, no masses. Back - Non-tender. Extremities - No edema. Normal pulses. Neuro - Alert and oriented to person, place, time. ECG today in the office reviewed. Device interrogation reviewed. <1% AP, 5% MANAGER IN TRAINING. 24% AMS since 01/2022. IMPRESSION: 1. Paroxysmal ventricular tachycardia, status post defibrillator 2. Paroxysmal atrial fibrillation 3. Chronic/systolic congestive heart failure due to ischemic cardiomyopathy 4. Hypertension 5. Obstructive sleep apnea 6. Type 2 diabetes, insulin requiring 7. BMI 34 PLAN: Mr. Nolasco returns today with his . He is feeling much better since his cardioversion in April. He went into persistent atrial fibrillation, necessitating cardioversion. [facility] recently [facility] where he was very weak and diaphoretic after using the bathroom. He had to rest and use oxygen for a while. He is not had the symptoms before hand and knees have not recurred. Based on the symptomatology and circumstances, I told him this could very well be a vagally mediated event we have discussed avoidance and abortive maneuvers for thesetypes of events. We discussed how atrial fibrillation can compromise him and the need treatment with antiarrhythmic drugs or possibly ablation in the future if he experiences frequent, symptomatic recurrences. He should continue annual follow-up for now. We will continue to monitor his device on a quarterly basis remotely Christoph Chavis MD CC - Dee Ashley MD This clinical note has been produced using speech recognition software and may contain errors related to that system including grammar, punctuation, spelling, gender and words and phrases that may beinappropriate. * Yaneth Bates RN - 09/21/2023 2:42 PM EST Images from the original note were not included. [facility] Department of Cardiovascular Medicine SECTION OF CARDIAC PACING and ELECTROPHYSIOLOGY OUTPATIENT VISIT DATE September 21, 2023 OUTPATIENT VISIT TYPE ESTABLISHED PRIMARY CARE PHYSICIAN: Dee Ashley [address] [place] [address] NURSING INTAKE HISTORY: Mr. Nolasco is a 73 year old male who presents today for follow-up visit. He has a history of BOST[place] (on CPAP), hypothyroidism, diabetes, hyperlipidemia, hypertension, CAD, PVCs, PVT s/p ICD 2011, s/p generator change 2018, and atrial flutter s/p DCC 04/2023. He is maintainedon metoprolol and warfarin. He was last seen in office 04/30/2023 with Jes Lee following which he underwent DCC. He has felt better since scientologist of NSR. He is unaware of any recurrence of arrhythmia; device checks [place] brief episodes of AT. 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 Diabetes mellitus (HCC) Diarrhea Dual implantable cardioverter-defibrillator in situ Dyslipidemia Esophageal reflux Ex-smoker Hypothyroidism 11/21/2022 Mononeuritis of unspecified site Obesity, unspecified Other chronic nonalcoholic liver disease Personal history of colonic polyps 03/20/2005 hyperplastic polyps Unspecified essential hypertension PAST SURGICAL HISTORY Procedure Laterality Date BSCAN OS (LEFT EYE) Left COLONOSCOPY FLX DX W/COLLJ SPEC WHEN PFRMD 03/20/2005 Colonoscopy COLONOSCOPY FLX DX W/COLLJ SPEC WHEN PFRMD 06/15/2015 Colonoscopy [facility] out pt ENDOSCOPY PROC 08/2018 ESOPHAGOGASTRODUODENOSCOPY TRANSORAL DIAGNOSTIC 06/15/2015 EGD [facility] out pt EXCISION PILONIDAL CYST/SINUS SIMPLE 01/19/2003 Excision pilonidal cyst PACEMAKER SURGERY 03/11/2012 pacer/defib PACEMAKER SURGERY 09/17/2018 PAST SURGICAL HISTORY OF 09/16/2012 eye surgery, s/p Plaque OS PRO SMART PILL CAPSULE PROC ([id number]) REMOVAL GALLBLADDER 06/10/2021 REMOVE PACEMAKER SYSTEM 09/17/2018 replaced it all RPR UMBILICAL HERNIA < 5 YRS REDUCIBLE 02/17/1999 Hernia repair, umbilical SOCIAL HISTORY Social History Tobacco Use Smoking status: Former Packs/day: 1.00 Years: 40.00 Additional pack years: 0.00 Total pack years: 40.00 Types: Cigarettes Quit date: 03/26/2009 Years since quittin.4 Smokeless tobacco: Never Vaping Use Vaping Use: Never used Substance Use Topics 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 amLODIPine (NORVASC) 5 mg tablet Take 1 tablet by mouth once daily. warfarin (COUMADIN) 2.5 mg tablet TAKE 1 TABLET BY MOUTH ONCE DAILY OR DIRECTED insulin glargine (LANTUS SOLOSTAR U-100 INSULIN) 100 unit/mL (3 mL) Inject 36 Units subcutaneously daily at bedtime. semaglutide (OZEMPIC) 1 mg/dose (4 mg/3 mL) pen Inject 1 mg subcutaneously one time a week. magnesium oxide (MAGOX) 400 mg (241.3 mg magnesium) tablet Take 1 tablet by mouth twice daily. potassium chloride (KLOR-CON 10) 10 mEq tablet Take 1 tablet by mouth twice daily. lovastatin (MEVACOR) 20 mg tablet Take 1 tablet by mouth every other day. metoprolol tartrate, short acting, (LOPRESSOR) 100 mg tablet Take 1 tablet by mouth twice daily. tamsulosin (FLOMAX) 0.4 mg Take 2 capsules by mouth once daily. apremilast (OTEZLA) 30 mg tablet Take 1 tablet by mouth twice daily. levothyroxine (LEVOXYL) 50 mcg tablet Take 1 tablet by mouth once daily. Take on empty stomach. ForThyroid DULoxetine (CYMBALTA) 60 mg capsule Take 1 capsule by mouth once daily. allopurinol (ZYLOPRIM) 100 mg tablet Take 2 tablets by mouth once daily. warfarin (COUMADIN) 5 mg tablet Take 1 tablet by mouth once daily. iron polysaccharide complex (FERREX 150) 150 mg iron capsule Take 1 capsule by mouth twice daily. gabapentin (NEURONTIN) 600 mg tablet Take 1 tablet by mouth daily at bedtime for 180 days. ipratropium-albuterol (DUONEB) 0.5 mg-3 mg(2.5 mg base)/3 mL nebu Inhale 3 mL as instructed three times daily. spironolactone (ALDACTONE) 25 mg tablet Take 1 tablet by mouth once daily. clobetasol (TEMOVATE) 0.05 % cream APPLY TO THE AFFECTED FLARES ON THE HANDS TWICE DAILY FOR 2 WEEKS THEN TAKE A WEEK OFF BEFORE RESUMING. lisinopril (ZESTRIL, PRINIVIL) 40 mg tablet Take 1 tablet by mouth once daily. acetaminophen (TYLENOL) 500 mg tablet Take 500 mg by mouth as needed. LILO PEN NEEDLE 32 gauge x 5/32 ndle USE TWICE DAILY WITH INSULIN DOSE Blood Sugar Diagnostic, Drum (ACCU-CHEK COMPACT TEST) strp Test blood sugar(s) 4 times daily. Dx: DM 250 Insulin: Yes Lancets (ACCU-CHEK SOFTCLIX LANCETS) Misc lancets three times daily as needed. Dx. 250.00 Yaneth Bates RN PHYSICAL EXAMINATION: There were no vitals taken for this visit. CARDIOVASCULAR MEDICINE TESTING: DUAL LEAD ICD EVALUATION PRESENTS FOR: In clinic device check and OPD with Dr. Chavis. PRESENTING EGM: /VS UNDERLYING RHYTHM: BATTERY STATUS: Estimated time remaining to AMPARO is 9.5 years. COUNTERS SINCE: 07/27/23 ATRIAL ARRHYTHMIAS: There were 10 newly recorded atrial detection per the arrhythmia log. The longest lasted 56 seconds. EGM's show AT. Total time 24% (since 01/27/22). Anticoagulants listed: warfarin. VENTRICULAR ARRHYTHMIAS: There have been 8 new ventricular detections with sampled egm's showing a mix of nsVT and 1:1 tachyarrhythmias that begin with an atrial beat. LEAD MEASUREMENTS: Capture and sensing are appropriate. The pacing outputs maintain safety margin. Review of the lead impedance trends are normal. IMPLANT SITE/ SYMPTOMS: The incision and pocket are pain-free (0/10), well healed and without signsof erosion or infection. No arm swelling, syncope, pre- syncope or device related pocket stimulation. OTHER DIAGNOSTICS: RA pacing <1%, RV pacing 5%. PROGRAMMING CHANGES MADE TODAY: None FOLLOW UP: Remotes every 13 weeks and yearly in clinic visits. Naresh Sales RN documented in this encounterPromedica [facility]12-11-2023 Miscellaneous Notes* Telephone Encounter - Shanika Orlando APRN.CNS - 08/20/2023 4:42 PM EST Noted. For atrial fibrillation target INR would be 2-3. * Telephone Encounter - Mechelle Rashid LPN - 08/20/2023 1:30 PM EST Patient returned call and said no medication changes, no antibiotics, no missed doses. He is not having any issues. Went over coumadin instructions from Shanika Orlando CHIEF MERCHANDISING OFFICER 2.5 mg -- and 5 mg all other days and recheck INR in 4 weeks with understanding. * Telephone Encounter - Cheryle Degroot LPN - 08/20/2023 11:14 AM EST LEFT MESSAGE FOR PATIENT TO CALL OFFICE. * Telephone Encounter - Candis Jimenez LPN - 08/17/2023 4:04 PM EST There is not INR goal in episode. The dx is A fib. Message left for pt to return call to a nurse, * Telephone Encounter - Shanika Orlando APRN.SFDC SOLUTION ARCHITECT - 08/16/2023 4:31 PM EST Whether any medication changes, missed doses? if target INR is 2-3 then may continue on with current Coumadin dose unchanged and check INR in 4 weeks. * Telephone Encounter - Shelia Charles Ma - 08/15/2023 10:29 AM EST Last INR: PT INR 2.7 08/15/2023 Current dose of coumadin is: 2.5 mg M,W,F and 5 mg all other days. Last date of dose change: March 2023. Previous INR (date and result): 2.5 07/18/23 Additional Clinical Information or narrative: no documented in this encounterPromedica [facility]12-01-2023 Miscellaneous Notes* Telephone Encounter - Freda Purdy - 08/10/2023 11:27 AM EST Patient has been identified by name and date of : No Patient phones for refill(s): Requested Prescriptions Pending Prescriptions Disp Refills metFORMIN ER (GLUCOPHAGE XR) 500 mg 24 hr tablet Sig: Take 1 tablet by mouth daily with breakfast. Date of last office visit in primary care: 05/25/2023 Date of next office visit in primary care: 09/21/2023 Last 2 Encounter Wt Readings: Date: Wt: 05/25/2023 105.1 kg (231 lb 12.8 oz) 02/21/2023 106.1 kg (234 lb) Previous labs/tests for medication: Diabetes: Hemoglobin A1C (%) Date Value 07/23/2023 4.7 04/20/2023 4.7 08/08/2021 8.2 05/04/2021 9.1 Hemoglobin A1C (POCT) (%) Date Value 08/22/2022 6.0 10/10/2021 4.8 Please advise. Thank you. Freda Purdy. * Telephone Encounter - Elsi Hatch - 08/10/2023 8:53 AM EST Patient has been identified by name and date of : Yes Last office visit in this department: 05/25/2023 RX INSTRUCTIONS: Patient aware RX will be sent to pharmacy. No need to notify patient. Patient phones requesting refills as follows: Requested Prescriptions Pending Prescriptions Disp Refills metFORMIN ER (GLUCOPHAGE XR) 500 mg 24 hr tablet Sig: Take 1 tablet by mouth daily with breakfast. Please review and advise. Elsi Hatch documented in this encounterPromedica Bay [facility] Hospital10-30-2023 Miscellaneous Notes* Telephone Encounter - Ary Beck OCCA - 07/09/2023 8:02 AM EDT Patient has been identified by name and date of : Yes Patient phones for refill(s): Requested Prescriptions Pending Prescriptions Disp Refills amLODIPine (NORVASC) 5 mg tablet 90 tablet 3 Sig: Take 1 tablet by mouth once daily. Date of last office visit in primary care: 05/25/2023 with Cesilia Hanks Date of next office visit in primary care: 08/24/2023 Last 2 Encounter Wt Readings: Date: Wt: 05/25/2023 105.1 kg (231 lb 12.8 oz) 02/21/2023 106.1 kg (234 lb) Please advise. Thank you. RONNIE Watters. documented in this encounterPromedica Bay [facility] Hospital10-25-2023 Miscellaneous Notes* Telephone Encounter - Candis Jimenez LPN - 07/04/2023 5:07 PM EDT Patient notified of results and provider's instructions. Patient verbalizes understanding. Candis Jimenez LPN * Telephone Encounter - Jackson Nelson MD - 07/04/2023 5:04 PM EDT Continue Coumadin dose. INR in 2 weeks. * Telephone Encounter - Freda Purdy - 07/04/2023 4:15 PM EDT Last INR: PT INR 3.0 07/04/2023 Current dose of coumadin is: Coumadin m,w,f 2.5mg and the other days 5 mg Last date of dose change: March 2023. Previous INR (date and result): 06/06/23 INR 3.3 Additional Clinical Information or narrative: yes: missed one 2.5 mg documented in this encounterPromedica Bay [facility] Hospital10-09-2023 Miscellaneous Notes* Telephone Encounter - Freda Purdy - 06/18/2023 2:14 PM EDT Patient has been identified by name and date of : No Patient phones for refill(s): Requested Prescriptions Pending Prescriptions Disp Refills insulin glargine (LANTUS SOLOSTAR U-100 INSULIN) 100 unit/mL (3 mL) 5 Each 5 Sig: Inject 36 Units subcutaneously daily at bedtime. semaglutide (OZEMPIC) 1 mg/dose (4 mg/3 mL) pen 2 Each 4 Sig: Inject 1 mg subcutaneously one time a week. Date of last office visit in primary care:06/15/2023 Date of next office visit in primary care: 08/24/2023 Last 2 Encounter Wt Readings: Date: Wt: 05/25/2023 105.1 kg (231 lb 12.8 oz) 02/21/2023 106.1 kg (234 lb) Previous labs/tests for medication: Diabetes: Hemoglobin A1C (%) Date Value 04/20/2023 4.7 02/16/2023 4.8 08/08/2021 8.2 05/04/2021 9.1 Hemoglobin A1C (POCT) (%) Date Value 08/22/2022 6.0 10/10/2021 4.8 Please advise. Thank you. Freda Purdy. * Telephone Encounter - Ale Solis - 06/18/2023 1:56 PM EDT Patient has been identified by name and date of : Yes Requested Prescriptions Pending Prescriptions Disp Refills insulin glargine (LANTUS SOLOSTAR U-100 INSULIN) 100 unit/mL (3 mL) 5 Each 5 Sig: Inject 36 Units subcutaneously daily at bedtime. semaglutide (OZEMPIC) 1 mg/dose (4 mg/3 mL) pen 2 Each 4 Sig: Inject 1 mg subcutaneously one time a week. RX INSTRUCTIONS: Patient aware RX will be sent to pharmacy. No need to notify patient. Ale Ruiz documented in this encounterPromedica Bay [facility] Hospital09-15-2023 History of Present illness Narrative* Lillian Hanks PA-C - 05/25/2023 12:57 PM EDT CC: Patient presents with: F/U 3 Month HPI Yazan Nolasco is a 73 year old male who presents today for 3-month follow-up. A-fib- patient had cardioversion and I got my A Fib fixed. Was having episodes of hypotension andsevere tachycardia prior to, but states he has had no symptoms since the procedure. States he has alot more energy and he's not dizzy. Sees Dr. Chavis and Dr. Ordonez. Psoriasis - sees dermatology, Dr. Smith at [facility], as well as morning news producer, Dr. Zhu.Pt is on Otezla . Hypothyroidism. He is doing well on his current dose of Synthroid. Denies fatigue, cold intolerance, constipation, swelling in feet, weight gain, hair loss, and dry skin. TSH Date Value 04/20/2023 1.420 mIU/L 02/16/2023 1.590 mIU/L 06/27/2018 4.180 uU/mL 10/02/2017 5.400 uU/mL DM - much improved, as his most recent A1c was 4.7 COPD- sees pulmonology, Dr. Serrano. Will be seeing him again in 07/02 for updated pulmonary function tests. Standing order in place for labs, that he will due for in 08/02. REVIEW OF SYSTEMS See HPI All other systems negative. 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 Diabetes mellitus (HCC) Diarrhea Dual implantable cardioverter-defibrillator in situ Dyslipidemia Esophageal reflux Ex-smoker Hypothyroidism 11/21/2022 Mononeuritis of unspecified site Obesity, unspecified Other chronic nonalcoholic liver disease Personal history of colonic polyps 03/20/2005 hyperplastic polyps Unspecified essential hypertension PAST SURGICAL HISTORY Procedure Laterality Date BSCAN OS (LEFT EYE) Left COLONOSCOPY FLX DX W/COLLJ SPEC WHEN PFRMD 03/20/2005 Colonoscopy COLONOSCOPY FLX DX W/COLLJ SPEC WHEN PFRMD 06/15/2015 Colonoscopy [facility] out pt ENDOSCOPY PROC 08/2018 ESOPHAGOGASTRODUODENOSCOPY TRANSORAL DIAGNOSTIC 06/15/2015 EGD [facility] out pt EXCISION PILONIDAL CYST/SINUS SIMPLE 01/19/2003 Excision pilonidal cyst PACEMAKER SURGERY 03/11/2012 pacer/defib PACEMAKER SURGERY 09/17/2018 PAST SURGICAL HISTORY OF 09/16/2012 eye surgery, s/p Plaque OS PRO SMART PILL CAPSULE PROC ([id number]) REMOVAL GALLBLADDER 06/10/2021 REMOVE PACEMAKER SYSTEM 09/17/2018 replaced it all RPR UMBILICAL HERNIA < 5 YRS REDUCIBLE 02/17/1999 Hernia repair, umbilical ALLERGIES Patient has no allergy information on record. MEDICATIONS metoprolol tartrate, short acting, (LOPRESSOR) 100 mg tablet Take 1 tablet by mouth twice daily. tamsulosin (FLOMAX) 0.4 mg Take 2 capsules by mouth once daily. apremilast (OTEZLA) 30 mg tablet Take 1 tablet by mouth twice daily. levothyroxine (LEVOXYL) 50 mcg tablet Take 1 tablet by mouth once daily. Take on empty stomach. ForThyroid DULoxetine (CYMBALTA) 60 mg capsule Take 1 capsule by mouth once daily. allopurinol (ZYLOPRIM) 100 mg tablet Take 2 tablets by mouth once daily. metFORMIN ER (GLUCOPHAGE XR) 500 mg 24 hr tablet Take 1 tablet by mouth daily with breakfast. warfarin (COUMADIN) 5 mg tablet Take 1 tablet by mouth once daily. iron polysaccharide complex (FERREX 150) 150 mg iron capsule Take 1 capsule by mouth twice daily. gabapentin (NEURONTIN) 600 mg tablet Take 1 tablet by mouth daily at bedtime for 180 days. ipratropium-albuterol (DUONEB) 0.5 mg-3 mg(2.5 mg base)/3 mL nebu Inhale 3 mL as instructed three times daily. spironolactone (ALDACTONE) 25 mg tablet Take 1 tablet by mouth once daily. clobetasol (TEMOVATE) 0.05 % cream APPLY TO THE AFFECTED FLARES ON THE HANDS TWICE DAILY FOR 2 WEEKS THEN TAKE A WEEK OFF BEFORE RESUMING. semaglutide (OZEMPIC) 1 mg/dose (4 mg/3 mL) pen Inject 1 mg subcutaneously one time a week. lisinopril (ZESTRIL, PRINIVIL) 40 mg tablet Take 1 tablet by mouth once daily. insulin glargine (LANTUS SOLOSTAR U-100 INSULIN) 100 unit/mL (3 mL) Inject 36 Units subcutaneously daily at bedtime. amLODIPine (NORVASC) 5 mg tablet Take 1 tablet by mouth once daily. magnesium oxide (MAGOX) 400 mg (241.3 mg magnesium) tablet Take 1 tablet by mouth twice daily. potassium chloride (KLOR-CON 10) 10 mEq tablet Take 1 tablet by mouth twice daily. lovastatin (MEVACOR) 20 mg tablet Take 1 tablet by mouth daily at bedtime. warfarin (COUMADIN) 2.5 mg tablet Take by mouth daily or as directed by your physician (Patient taking differently: Take by mouth daily or as directed by your physician 1 day per week) acetaminophen (TYLENOL) 500 mg tablet Take 500 mg by mouth as needed. LILO PEN NEEDLE 32 gauge x 32 ndle USE TWICE DAILY WITH INSULIN DOSE Blood Sugar Diagnostic, Drum (ACCU-CHEK COMPACT TEST) strp Test blood sugar(s) 4 times daily. Dx: DM 250 Insulin: Yes Lancets (ACCU-CHEK SOFTCLIX LANCETS) Misc lancets three times daily as needed. Dx. 250.00 FAMILY HISTORY Problem Relation Age of Onset Heart Mother of CHF at 91 Stroke Mother Hypertension Mother other (Other) Father at 87 of a brain aneurysm Hypertension Brother Stroke Brother Heart Brother No Ocular Disease Other Social History Tobacco Use Smoking status: Former Packs/day: 1.00 Years: 40.00 Additional pack years: 0.00 Total pack years: 40.00 Types: Cigarettes Quit date: 03/26/2009 Years since quittin.1 Smokeless tobacco: Never Vaping Use Vaping Use: Never used Substance Use Topics Alcohol use: Not Currently Comment: 1991 Drug use: Not Currently PHYSICAL EXAM BP 120/66 (BP Site: Left Arm, BP Position: Sitting, BP Cuff Size: Large Adult) Pulse 88 Resp 18 Wt 105.1 kg (231 lb 12.8 oz) BMI 35.25 kg/m ASSESSMENT/PLAN: 1. Type 2 diabetes mellitus with diabetic mononeuropathy, with long-term current use of insulin (HCC) - ICD9: 250.60, 355.9, V58.67, ICD10: E11.41, Z79.4 (primary diagnosis) Very well controlled with A1c of 4.7 Continue current management 2. Pure hypercholesterolemia - ICD9: 272.0, ICD10: E78.00 Stable on most recent labs, however HDL in the lower side at 31. Continue current management lovastatin - LOVASTATIN 20 MG TABLET 3. Hypothyroidism, unspecified type - ICD9: 244.9, ICD10: E03.9 - Instructed patient on importance of taking on an empty stomach either first thing in the morning or at bedtime. - continue current dose of Synthroid 0.050 mg 4. Paroxysmal atrial fibrillation (HCC) - ICD9: 427.31, ICD10: I48.0 Status post cardioversion; continue current management with cardio as planned 5. Hypertensive kidney disease with stage 3a chronic kidney disease (HCC) - ICD9: 403.90, 585.3, ICD10: I12.9, N18.31 Very stable with CR 1.19 and GFR 64 on most recent labs - Recommend home blood pressure monitoring, to bring results to next visit - Encouraged sodium restriction, DASH or Mediterranean diet - Recommend regular aerobic exercise - eGFR: 64 Stable 6. Essential hypertension - ICD9: 401.9, ICD10: I10 - Controlled - Continue current medications - Recommend home blood pressure monitoring, to bring results to next visit - Encouraged sodium restriction, DASH or Mediterranean diet - Recommend regular aerobic exercise 7. Need for influenza vaccination - ICD9: V04.81, ICD10: Z23 - INFLUENZA VACCINE, PRSV FREE, AGE 65+ YR, HIGH DOSE, QUADRIVALENT (FLUZONE HIGH-DOSE) Prescription instructions reviewed with patient as applicable. Potential red flag symptoms discussed with the patient. Reviewed appropriate action plan to take if red flag symptoms occur. Patient agreeable to treatment plan. Lillian Hanks PA-C documented in this encounterPromedica Bay [facility]09-13-2023 Miscellaneous Notes* Telephone Encounter - Shelia Charles Ma - 05/23/2023 2:51 PM EDT Patient notified. * Telephone Encounter - Lino Bhandari APRN.CNP - 05/23/2023 2:19 PM EDT INR in therapeutic range. Continue current dose and checking Pt/INR weekly as required by home PT/INR company. Thank you Lino Bhandari APRN.OREN * Telephone Encounter - Shelia Charles Ma - 05/23/2023 1:03 PM EDT Last INR: PT INR 3.0 05/23/2023 Current dose of coumadin is: 2.5mg Sun Wed 5mg all other days. Last date of dose change: 03/28/23. Previous INR (date and result): 05/09/23 2.2 Additional Clinical Information or narrative: no documented in this encounterPromedica Bay Park Hospital09-02-2023 Miscellaneous Notes* Telephone Encounter - Candis Jimenez LPN - 05/12/2023 8:57 AM EDT Patient notified of results and provider's instructions. Patient verbalizes understanding. Candis Jimenez LPN * Telephone Encounter - Jackson Nelson MD - 05/11/2023 6:44 PM EDT Continue Coumadin dose. INR in 2 weeks. * Telephone Encounter - Shelia Charles Ma - 05/10/2023 8:57 AM EDT Last INR: PT INR 2.2 05/09/2023 Current dose of coumadin is: 2.5mg Sun Wed 5mg all other days. Last date of dose change: 03/28/23. Previous INR (date and result): 2.0 05/02/23 Additional Clinical Information or narrative: no documented in this encounterPromedica Bay Park Hospital08-30-2023 Miscellaneous Notes* Telephone Encounter - Jennifer Black RN - 05/09/2023 12:56 PM EDT Phoned patient and left vm for patient to return call to nurse for provider message. Phoned , Kiley, who has identified vm. Left detailed vm with provider's message below, and dateof message, and asked Kiley to call back and let nurse know she did receive the detailed message. * Telephone Encounter - Eduardo Bhardwaj RN - 05/04/2023 9:38 AM EDT Called and left a voicemail for the Patient and his to call back and ask for a nurse to receive the providers message. Eduardo Bhardwaj RN * Telephone Encounter - Jackson Nelson MD - 05/03/2023 5:44 PM EDT Continue Coumadin dose. INR in 1 week due to low end of therapeutic range. * Telephone Encounter - Shelia Charles Ma - 05/02/2023 11:41 AM EDT Last INR: PT INR 2.0 05/02/2023 Current dose of coumadin is: 2.5 mg Sun Wed 5mg all other days. Last date of dose change: 03/28/23. Previous INR (date and result): 2.7 04/18 Additional Clinical Information or narrative: yes: Patient was in [facility] on [place] with Cardiology and INR that day was 3.3. No changes documented in this encounterPromedica Bay Park Hospital08-30-2023 Miscellaneous Notes* Telephone Encounter - Kiley Butts LPN - 05/09/2023 9:56 AM EDT Patient has been identified by name and date of : Yes Patient phones for refill(s): Requested Prescriptions Pending Prescriptions Disp Refills tamsulosin (FLOMAX) 0.4 mg 180 capsule 1 Sig: Take 2 capsules by mouth once daily. Date of last office visit in primary care: 11/21/2022 3 month follow-up: 05/25/2023 Last 2 Encounter Wt Readings: Date: Wt: 02/21/2023 106.1 kg (234 lb) 11/21/2022 111.1 kg (245 lb) Previous labs/tests for medication: Not applicable Please advise. Thank you. Kiley Butts LPN documented in this encounterPromedica Bay Park Hospital08-21-2023 History of Present illness Narrative* Jes Lee APRN.JOB FOREMAN - 04/30/2023 8:30 AM EDT Images from the original note were not included. [facility] Department of Cardiovascular Medicine SECTION OF CARDIAC PACING and ELECTROPHYSIOLOGY OUTPATIENT VISIT DATE April 30, 2023 OUTPATIENT VISIT TYPE ESTABLISHED PRIMARY CARE PHYSICIAN: Dee Ashley [address] [place] [address] CHIEF COMPLAINT: Pre-cardioversion HISTORY OF PRESENT ILLNESS: Mr. Nolasco is a 73 year old male who presents today for cardioversion Est patient of Dr Chavis, last seen on 01/27/2022. He follows remotely for ICD. Plan for cardioversion today Past medical history of CAD (50% LAD 2011), HTN, HLD, DM, Obesity, [place] on CPAP, PSVT, PAF, former smoker, and NSVT s/p ICD for primary prophylaxis 2011 and s/p generator change 2018. His ICD was implanted for primary prevention in 2011 due to exercise induced polymorphic VT and pre-syncope. EF has been normal. He has not had any shocks from his device. Device remotes have shown short episodes of AT with variable conduction, and occasional NSVT detection (10/31/21). [id number] score: 4 (hypertension, diabetes, vascular disease, age 65-74) - on warfarin (INR's per coumadin clinic [place]) He follows remotely for ICD. He has been in atrial fibrillation started on 02/02/23 Fatigue overall. BP has been low and he gets lightheaded at times INR 3 last week. Checks weekly. He denies chest pain, orthopnea, edema. 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 Diabetes mellitus (HCC) Diarrhea Dual implantable cardioverter-defibrillator in situ Dyslipidemia Esophageal reflux Ex-smoker Hypothyroidism 11/21/2022 Mononeuritis of unspecified site Obesity, unspecified Other chronic nonalcoholic liver disease Personal history of colonic polyps 03/20/2005 hyperplastic polyps Unspecified essential hypertension PAST SURGICAL HISTORY Procedure Laterality Date BSCAN OS (LEFT EYE) Left COLONOSCOPY FLX DX W/COLLJ SPEC WHEN PFRMD 03/20/2005 Colonoscopy COLONOSCOPY FLX DX W/COLLJ SPEC WHEN PFRMD 06/15/2015 Colonoscopy [facility] out pt ENDOSCOPY PROC 08/2018 ESOPHAGOGASTRODUODENOSCOPY TRANSORAL DIAGNOSTIC 06/15/2015 EGD [facility] out pt EXCISION PILONIDAL CYST/SINUS SIMPLE 01/19/2003 Excision pilonidal cyst PACEMAKER SURGERY 03/11/2012 pacer/defib PACEMAKER SURGERY 09/17/2018 PAST SURGICAL HISTORY OF 09/16/2012 eye surgery, s/p Plaque OS PRO SMART PILL CAPSULE PROC ([id number]) REMOVAL GALLBLADDER 06/10/2021 REMOVE PACEMAKER SYSTEM 09/17/2018 replaced it all RPR UMBILICAL HERNIA < 5 YRS REDUCIBLE 02/17/1999 Hernia repair, umbilical SOCIAL HISTORY Social History Tobacco Use Smoking status: Former Packs/day: 1.00 Years: 40.00 Additional pack years: 0.00 Total pack years: 40.00 Types: Cigarettes Quit date: 03/26/2009 Years since quittin.1 Smokeless tobacco: Never Vaping Use Vaping Use: Never used Substance Use Topics 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 levothyroxine (LEVOXYL) 50 mcg tablet Take 1 tablet by mouth once daily. Take on empty stomach. ForThyroid DULoxetine (CYMBALTA) 60 mg capsule Take 1 capsule by mouth once daily. allopurinol (ZYLOPRIM) 100 mg tablet Take 2 tablets by mouth once daily. metFORMIN ER (GLUCOPHAGE XR) 500 mg 24 hr tablet Take 1 tablet by mouth daily with breakfast. warfarin (COUMADIN) 5 mg tablet Take 1 tablet by mouth once daily. iron polysaccharide complex (FERREX 150) 150 mg iron capsule Take 1 capsule by mouth twice daily. gabapentin (NEURONTIN) 600 mg tablet Take 1 tablet by mouth daily at bedtime for 180 days. ipratropium-albuterol (DUONEB) 0.5 mg-3 mg(2.5 mg base)/3 mL nebu Inhale 3 mL as instructed three times daily. spironolactone (ALDACTONE) 25 mg tablet Take 1 tablet by mouth once daily. clobetasol (TEMOVATE) 0.05 % cream APPLY TO THE AFFECTED FLARES ON THE HANDS TWICE DAILY FOR 2 WEEKS THEN TAKE A WEEK OFF BEFORE RESUMING. tamsulosin (FLOMAX) 0.4 mg Take 2 capsules by mouth once daily semaglutide (OZEMPIC) 1 mg/dose (4 mg/3 mL) pen Inject 1 mg subcutaneously one time a week. lisinopril (ZESTRIL, PRINIVIL) 40 mg tablet Take 1 tablet by mouth once daily. insulin glargine (LANTUS SOLOSTAR U-100 INSULIN) 100 unit/mL (3 mL) Inject 36 Units subcutaneously daily at bedtime. amLODIPine (NORVASC) 5 mg tablet Take 1 tablet by mouth once daily. magnesium oxide (MAGOX) 400 mg (241.3 mg magnesium) tablet Take 1 tablet by mouth twice daily. potassium chloride (KLOR-CON 10) 10 mEq tablet Take 1 tablet by mouth twice daily. metoprolol tartrate, short acting, (LOPRESSOR) 100 mg tablet Take 1 tablet by mouth twice daily. lovastatin (MEVACOR) 20 mg tablet Take 1 tablet by mouth daily at bedtime. warfarin (COUMADIN) 2.5 mg tablet Take by mouth daily or as directed by your physician (Patient taking differently: Take by mouth daily or as directed by your physician 1 day per week) acetaminophen (TYLENOL) 500 mg tablet Take 500 mg by mouth as needed. LILO PEN NEEDLE 32 gauge x 5/32 ndle USE TWICE DAILY WITH INSULIN DOSE Blood Sugar Diagnostic, Drum (ACCU-CHEK COMPACT TEST) strp Test blood sugar(s) 4 times daily. Dx: DM 250 Insulin: Yes Lancets (ACCU-CHEK SOFTCLIX LANCETS) Misc lancets three times daily as needed. Dx. 250.00 REVIEW OF SYSTEMS: GENERAL: Negative for: Weight loss or gain, Fever or Chills, Weakness and Sleep difficulties. HEENT: Negative for: Headache, Bleeding Gums NECK: Negative for: Swelling, Pain, Stiffness RESPIRATORY: Negative for: Cough, Blood in Sputum, Shortness of breath, Wheezing, Apnea GASTROINTESTINAL: Negative for: Trouble swallowing, Heartburn, Change in bowel habits, Blood in stool, Dark black stools MUSCULOSKELETAL: Negative for: Muscle or joint pain, Stiffness , Joint swelling NEUROLOGIC/PSYCHIATRIC: Negative for: Weakness, Paralysis, Numbness, Tingling, Tremor, Nervousness,Depressed mood, Memory loss SKIN: Negative for: Rashes, Itching HEMATOLOGICAL/LYMPHATIC: Negative for: Easy bruising , Easy bleeding ENDOCRINE: Negative for: Heat or cold intolerance, Excessive sweating, Frequent urination, Frequentthirst PHYSICAL EXAMINATION: General: Well appearing, in no acute distress. Skin: No clubbing, no cyanosis. Eyes: Extra ocular movements intact Oropharynx: Teeth in good repair. Neck: No jugular venous distention Lungs: Clear to auscultation bilaterally, no wheezing or rhonchi. Heart: irregular rhythm, PMI not displaced, S1, S2 normal Abdomen: Soft, nontender, bowel sounds normal Extremities: No peripheral edema Neuro: Oriented to person, place and time, alert, cooperative, gait coordinated. CARDIOVASCULAR MEDICINE TESTING: DUAL CHAMBER ICD REMOTE EVALUATION: PRESENTING EGM: AF/MANAGER IN TRAINING BATTERY STATUS: Estimated time remaining to AMPARO is 8 years. COUNTERS SINCE: 01/27/22 ATRIAL ARRHYTHMIAS: AF burden 100% per graph since February 2023. Anticoagulants listed: Coumadin Patient scheduled 04/30/23 for DCCV. VENTRICULAR ARRHYTHMIAS: There have been numerous ventricular detections. Sampled EGMs show a mix of true nsVT and AF with RVR. LEAD MEASUREMENTS: Sensing is appropriate. Review of the lead impedance trends are normal. OTHER DIAGNOSTICS: RA pacing 1%. V pacing 6%. Last ECHO Result Conclusion ECHO Collected: 05/29/2022 1:51 PM (Final result) Impression: CONCLUSIONS: - Technically difficult exam due to body habitus. - Exam indication: VT - The left ventricle is normal in size. Left ventricular systolic function is normal. EF = 57 5% (2D biplane) Grade I left ventricular diastolic dysfunction. - The right ventricle is normal in size. Right ventricular systolic function is normal. - There are no significant valvular abnormalities. - The visualized aorta is borderline dilated with a maximal dimension of 3.8 cm. - Exam was compared with the prior echocardiographic exam performed on 05/05/2020, no significant change. * * * Final * * * INR 04/18/23: 2.7 per chart 04/04/23: 2.1 IMPRESSION: 1. Persistent atrial fibrillation - previously paroxysmal. Has not had a cardioversion in the past - on coumadin, ongoing episode since 01/2023 - at times with RVR 2. Paroxysmal ventricular tachycardia, s/p ICD 3. Hypertension - stable, has had some low BP at home since in afib 4. Moderate single-vessel coronary disease. 5. PVCs 6. Diabetes type 2 PLAN AND RECOMMENDATIONS: Continue coumadin with goal INR 2-3 Cardioversion today Follow up with remotes every 91 days and OV in 6 months or sooner if needed CONTACT INFORMATION: Jes Lee APRN.JOB FOREMAN documented in this encounterPromedica [facility]08-18-2023 History of Present illness Narrative* Lucy Shi RN - 04/27/2023 11:52 AM EDT THE FOLLOWING WAS EVALUATED Motivation To Learn: Interested Family/Significant Other Support: Unable to assess - Family not present Cognitive Ability: Alert and oriented Patient Learns Best By: Individual Instruction The Following Influencing Factors Were Barriers To This Education Session: None The Following Physical Limitations Were Barriers To This Education Session: None Instruction Provided To: Patient Procedure: Cardioversion Pre-procedure information reviewed: Patient ID verified Procedure verified Physician verified Explanation of procedure Sedation level during procedure MD medication instructions from EP lab request None Travel instructions/restrictions Scheduling information Possible same day discharge versus overnight hospital stay Check out time Family waiting area Physician contact with family after procedure Post Procedure Expectations reviewed: Inpatient hospital stay Post procedure antiarrhythmics and anticoagulation will be discussed with Physician, nurse practitioner or Physician agency sales management assistant upon discharge Instructions for transmitting EKG to Monitoring Center 3 month follow up instructions Contact number for information and questions Patient Evaluation: Verbalizes understanding Follow Up Plan: Follow up as directed by MD. Supplemental Material Given: Written Material Instructed By Lucy Shi RN, RN. In Department of CARDIOLOGY. documented in this encounterPromedica [facility]08-10-2023 Miscellaneous Notes* Telephone Encounter - Daksha Olivares RN - 04/19/2023 11:22 AM EDT OPD noted to be scheduled for 04-30-23. Scheduled for DCC as well. * Telephone Encounter - Daksha Olivares RN - 04/18/2023 8:51 AM EDT Please call patient to schedule for EKG, OPD & Device Clinic so that we may schedule for DCC the same day. * Telephone Encounter - Daksha Olivares RN - 04/18/2023 8:51 AM EDT ----- Message from Yaneth Bates RN sent at 04/17/2023 5:15 PM EDT ----- Regarding: DCC Please schedule patient for DCC. Timeframe: now Date of last H&P: 02/21/2023 Three weeks uninterrupted anticoagulation: Yes, on coumadin, therapeutic COREY needed: No Special instructions: None Yaneth Bates RN April 17, 2023 5:15 PM documented in this encounterPromedica [facility]08-07-2023 Miscellaneous Notes* Telephone Encounter - Yaneth Bates RN - 04/16/2023 12:43 PM EDT Spoke to patient. Per Dr Chavis: You called him a few months ago and he said he was doing better. He is still in AF, and should be cardioverted. Thanks TD Patient is agreeable after education. INRs have been therapeutic. Will send request to EP lab to schedule DCC. Yaneth Bates RN documented in this encounterPromedica Bay [facility]07-26-2023 Miscellaneous Notes* Telephone Encounter - Cheryle Degroot LPN - 04/04/2023 4:22 PM EDT PATIENT NOTIFIED OF SAME. Tracker updated. * Telephone Encounter - Serena Li APRN.OREN - 04/04/2023 3:17 PM EDT INR in goal range at 2.1, continue on the current dose of coumadin and repeat INR in 2 weeks. * Telephone Encounter - Freda Tao LPN - 04/04/2023 1:20 PM EDT Last INR: INR (POCT) 2.1(EXT) 04/04/2023 range is 2-3 Current dose of coumadin is: Coumadin 2.5 mg on sun and Sun then 5 mg all other days. Last date of dose change: 03/28/23. Previous INR (date and result): 03/28/23 INR 3.0 Additional Clinical Information or narrative: no documented in this encounterPromedica Bay [facility] Hospital06-21-2023 Miscellaneous Notes* Telephone Encounter - Freda Tao LPN - 02/28/2023 8:04 PM EDT patient's notified * Telephone Encounter - Dee Ashley MD - 02/28/2023 8:00 PM EDT Cont the same and recheck in a weeks time'' Regards, Dee Ashley MD * Telephone Encounter - Freda Tao LPN - 02/28/2023 11:29 AM EDT Last INR: PT INR 2.3 02/28/2023 Current dose of coumadin is: coumadin 2.5 mg daily. Last date of dose change: 02/14/23. Previous INR (date and result): 02/14/23 4.3 Additional Clinical Information or narrative: no documented in this encounterPromedica Bay [facility]06-15-2023 Miscellaneous Notes* Telephone Encounter - Ellyn Serrano LPN - 02/22/2023 10:24 AM EDT Patient has been identified by name and date of : Yes Patient phones for refill(s): Requested Prescriptions Pending Prescriptions Disp Refills levothyroxine (LEVOXYL) 50 mcg tablet 30 tablet 5 Sig: Take 1 tablet by mouth once daily. Take on empty stomach. For Thyroid Date of last office visit in primary care: 02/21/2023 Please advise. Thank you. Ellyn Serrano LPN documented in this encounterPromedica Bay [facility]06-14-2023 History of Present illness Narrative* Freda Tao LPN - 02/21/2023 3:00 PM EDT INR today 1.6 double coumadin today and cont the same rest of the week , recheck in 2 weeks per * Dee Ashley MD - 02/21/2023 2:29 PM EDT Reason for Visit Patient presents with: F/U Diabetes 3 Month: review labs, inr 1.6 today, end of january bld pressure low and heart rate increased Yazan Nolasco is a 72 year old male who presents here today for Above Complaints.. Health Maintenance HEPATITIS B(1 of 3 - Risk 3-dose series) SHINGRIX VACCINE(2 of 3) DTAP,TDAP,TD(3 - Td or Tdap) ADVANCE DIRECTIVE DISCUSSION DILATED RETINAL EXAM HPI Last month patient had pacemaker alerts . Patient has been pushing his little box beside the bed every 3rd or 4 th day. His heart rate was up a little. Was advised to go to the er but he did not. His hb is is 10.9 which is less than 11. But could be from the cardiac event. He is still have microcytic anemia; patient takes iron 2 times a day. Psoriasis with arthritis: he is seeing Dr Smith for derma, we discussed otezla. He is on otezla. Hands are all swollen, now he is able to lift shoulders. The knees are better. Hands skin is better. Hypothyroidism. She is doing well on her current dose of Synthroid. Denies fatigue, cold intolerance and swelling in feet. TSH recently checked and normal. HPL: Reviewed test results with patient , takes medications regularly , does not report side effects. Conscious to avoid red meats, full fat dairy and its by products. Exercising 3 to 5 times a week. The medication delays bf by half hour. Potassium is on the lower side despite taking the potassium supplements, 2 times a day, Will change to spirolactone Diabetes Mellitus: her hba1c is 5.6. he likes his semaglutide. He has gastropathy, presents as diarrhea, it is not painful in anyway.the food stays longer in the stomach, he has cut down his portionsbut is also not nearly as active as he should. Weight has been stable recently.he has been eating alot of celery, which messes up with his INR readings. Is able to control his diet. He has been eating like a fool eating Lytro cookies, a lot at at time. Has been to see Dr Serrano, who says he has copd added a nebulizer and inhaler he will call with that medication as he does not know the medication No problem-specific Assessment & Plan notes found for this encounter. 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 Diabetes mellitus (HCC) Diarrhea Dual implantable cardioverter-defibrillator in situ Dyslipidemia Esophageal reflux Ex-smoker Hypothyroidism 11/21/2022 Mononeuritis of unspecified site Obesity, unspecified Other chronic nonalcoholic liver disease Personal history of colonic polyps 03/20/2005 hyperplastic polyps Unspecified essential hypertension PAST SURGICAL HISTORY Procedure Laterality Date BSCAN OS (LEFT EYE) Left COLONOSCOPY FLX DX W/COLLJ SPEC WHEN PFRMD 03/20/2005 Colonoscopy COLONOSCOPY FLX DX W/COLLJ SPEC WHEN PFRMD 06/15/2015 Colonoscopy [facility] out pt ENDOSCOPY PROC 08/2018 ESOPHAGOGASTRODUODENOSCOPY TRANSORAL DIAGNOSTIC 06/15/2015 EGD [facility] out pt EXCISION PILONIDAL CYST/SINUS SIMPLE 01/19/2003 Excision pilonidal cyst PACEMAKER SURGERY 03/11/2012 pacer/defib PACEMAKER SURGERY 09/17/2018 PAST SURGICAL HISTORY OF 09/16/2012 eye surgery, s/p Plaque OS PRO SMART PILL CAPSULE PROC ([id number]) REMOVAL GALLBLADDER 06/10/2021 REMOVE PACEMAKER SYSTEM 09/17/2018 replaced it all RPR UMBILICAL HERNIA < 5 YRS REDUCIBLE 02/17/1999 Hernia repair, umbilical FAMILY HISTORY Problem Relation Age of Onset Heart Mother of CHF at 91 Stroke Mother Hypertension Mother other (Other) Father at 87 of a brain aneurysm Hypertension Brother Stroke Brother Heart Brother No Ocular Disease Other Social History Tobacco Use Smoking status: Former Packs/day: 1.00 Years: 40.00 Pack years: 40.00 Types: Cigarettes Quit date: 03/26/2009 Years since quittin.9 Smokeless tobacco: Never Vaping Use Vaping Use: Never used Substance Use Topics 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 Pertinent Lab/Diagnostic Studies are reviewed and discussed today Current Outpatient Medications: warfarin (COUMADIN) 5 mg tablet iron polysaccharide complex (FERREX 150) 150 mg iron capsule gabapentin (NEURONTIN) 600 mg tablet ipratropium 20 mcg-albuterol 100 mcg (COMBIVENT RESPIMAT) 20-100 mcg/actuation inhaler ipratropium-albuterol (DUONEB) 0.5 mg-3 mg(2.5 mg base)/3 mL nebu spironolactone (ALDACTONE) 25 mg tablet clobetasol (TEMOVATE) 0.05 % cream tamsulosin (FLOMAX) 0.4 mg semaglutide (OZEMPIC) 1 mg/dose (4 mg/3 mL) pen levothyroxine (LEVOXYL) 50 mcg tablet lisinopril (ZESTRIL, PRINIVIL) 40 mg tablet insulin glargine (LANTUS SOLOSTAR U-100 INSULIN) 100 unit/mL (3 mL) amLODIPine (NORVASC) 5 mg tablet magnesium oxide (MAGOX) 400 mg (241.3 mg magnesium) tablet potassium chloride (KLOR-CON 10) 10 mEq tablet metFORMIN ER (GLUCOPHAGE XR) 500 mg 24 hr tablet metoprolol tartrate, short acting, (LOPRESSOR) 100 mg tablet allopurinol (ZYLOPRIM) 100 mg tablet DULoxetine (CYMBALTA) 60 mg capsule lovastatin (MEVACOR) 20 mg tablet warfarin (COUMADIN) 2.5 mg tablet acetaminophen (TYLENOL) 500 mg tablet LILO PEN NEEDLE 32 gauge x nd Blood Sugar Diagnostic, Drum (ACCU-CHEK COMPACT TEST) strp Lancets (ACCU-CHEK SOFTCLIX LANCETS) Misc lancets Current Facility-Administered Medications: perflutren lipid microspheres 1.3 mL in NaCl (PF) 0.9% 10 mL injection (DEFINITY) sodium chloride 0.9 % (flush) 10 mL (BD POSIFLUSH) Review of Systems CONSTITUTIONAL: No fevers, chills night sweats, unintended weight loss CARDIOVASCULAR: No chest pain, dyspnea, palpitations, orthopnea, PND, ankle edema. PULM: No dyspnea, unexplained cough. GI: No dysphagia/odynophagia, problematic reflux, constipation, diarrhea, changes in stool habits, hematochezia, melena. : No new urinary complaints, including dysuria, gross hematuria or pyuria. NEURO: No new balance problems, peripheral weakness/paresthesias or numbness of concern. Physical Exam BP 122/70 (BP Site: Left Arm, BP Position: Sitting, BP Cuff Size: Large Adult) Pulse 71 Temp 36.3 C (97.4 F) Resp 14 Ht 172.7 cm (5' 8) Wt 106.1 kg (234 lb) SpO2 97% BMI 35.58 kg/m General appearance: Well appearing, alert, in no acute distress, well nourished. Skin: Skin color, texture, turgor normal, no suspicious rashes or lesions Head: Normocephalic, no masses, lesions, tenderness or abnormalities Eyes: Anicteric sclera. Pupils are equally round and reactive to light. Extraocular movements are intact. Lungs: Lungs clear to auscultation. No wheezing, rhonchi, rales Heart: RRR without murmur, gallop, or rubs. Extremities: No deformities, edema, skin discoloration, clubbing or cyanosis. Good capillary refill. ASSESSMENT/PLAN: 1. Type 2 diabetes mellitus with diabetic mononeuropathy, with long-term current use of insulin (HCC) - ICD9: 250.60, 355.9, V58.67, ICD10: E11.41, Z79.4 (primary diagnosis) Hba1c was 4.6 ,we have cut down the metformin to 1 pill a day 2. [place] on CPAP - ICD9: 327.23, V46.8, ICD10: G47.33, Z99.89 Takes it regularly 3. Stage 3a chronic kidney disease (HCC) - ICD9: 585.3, ICD10: N18.31 His gfr is better now than efer, more than 60 4. Psoriatic arthritis (HCC) - ICD9: 696.0, ICD10: L40.50 Doing well on otezla 5. Iron deficiency anemia, unspecified iron deficiency anemia type - ICD9: 280.9, ICD10: D50.9 6. Hypothyroidism, unspecified type - ICD9: 244.9, ICD10: E03.9 Thyroid is normal Dee Ashley MD documented in this encounterPromedica Bay [facility]06-07-2023 Miscellaneous Notes* Telephone Encounter - Freda Tao LPN - 02/14/2023 7:57 PM EDT Patient notified and verbalized understanding. Freda Tao LPN * Telephone Encounter - Dee Ashley MD - 02/14/2023 7:53 PM EDT Would ask patient to hold the coumadin, today and tomorrow and start with 2.5 mgs all days of the week Recheck in a weeks time Regards, Dee Ashley MD * Telephone Encounter - Shelia Charles Ma - 02/14/2023 1:13 PM EDT Last INR: PT INR 4.3 02/14/2023 Current dose of coumadin is: Taking 5mg daily and 2.5mg on Sunday. Last date of dose change: 11/29/22. Previous INR (date and result): 01/17/23 2.7 Additional Clinical Information or narrative: yes: Patient states last few weeks BP was running low( 101/40)and HR was high (140's) Patient stopped taking his steroid cream for hands and feeling better . BP was 138/80 this morning and HR back to normal. documented in this encounterPromedica Bay [facility]06-05-2023 Miscellaneous Notes* Telephone Encounter - Salma Jones RN - 02/12/2023 4:15 PM EDT Returned call and spoke with patient who has been symptomatic with low BP and intermittent rapid heart rates, noted up to 150 bpm over past week. AF has been ongoing since 02/02/23. DUAL LEAD ICD REMOTE EVALUATION: Remote processed on 02/12/23 PRESENTING EGM: AF/MANAGER IN TRAINING BATTERY STATUS: Estimated time remaining to AMPARO is 8 YRS COUNTERS SINCE: 01/27/2023 ATRIAL ARRHYTHMIAS: Per the AT/AF graph, ongoing AF since 02/02/23. AT/AF burden 2%. Anticoagulants listed: warfarin. Attempted to call the patient, no answer, left a voice mail. Updated Dr. Chavis. VENTRICULAR ARRHYTHMIAS: There have been 1321 ventricular detections. EGMs show AF with RVR. LEAD MEASUREMENTS: Sensing is appropriate. Review of the lead impedance trends are normal. OTHER DIAGNOSTICS: RA pacing 1%. RV pacing 1%. FOLLOW UP: Continue 3 month remote transmissions and yearly in-clinic interrogations. Estephania Salazar RN ADDENDUM: Patient called back in response to previous message. Over the past week patient has noticed increased heart rates, up to 150 bpm at times and associated decrease in blood pressure with symptomatic lightheadedness/ dizziness. Patient verified compliance with medications and stated that last INR from02/07/23 was [address] Noted that Dr. Chavis was previously updated. Salma Jones RN documented in this encounterPromedica Bay [facility]05-11-2023 Miscellaneous Notes* Telephone Encounter - Eduardo Bhardwaj RN - 01/18/2023 4:18 PM EDT Pt called and is notified of providers results and instructions. Pt voices understanding. Eduardo Bhardwaj RN * Telephone Encounter - Shelia Charles Ma - 01/18/2023 3:53 PM EDT Left message for return call. * Telephone Encounter - Lino Bhandari APRN.CNP - 01/18/2023 3:43 PM EDT INR therapeutic Continue current dosing and repeat INR in 4 weeks. Thank you Lino Bhandari APRN.OREN * Telephone Encounter - Shelia Charles Ma - 01/17/2023 7:06 PM EDT Last INR: PT INR 2.7 01/17/2023 Current dose of coumadin is: 2.5mg on Sunday, 5mg all other days. Last date of dose change: 11/29/22. Previous INR (date and result): 2.4 01/10/2023 Additional Clinical Information or narrative: no documented in this encounterPromedica Bay [facility] Hospital03-31-2023 Miscellaneous Notes* Telephone Encounter - Freda Tao LPN - 12/08/2022 1:54 PM EDT Patient has been identified by name and date of : No Patient phones for refill(s): Requested Prescriptions Pending Prescriptions Disp Refills gabapentin (NEURONTIN) 600 mg tablet 90 tablet 3 Sig: Take 1 tablet by mouth daily at bedtime for 180 days. Date of last office visit in primary care: 11/21/22 Last 2 Encounter Wt Readings: Date: Wt: 11/21/2022 111.1 kg (245 lb) 11/13/2022 112.9 kg (249 lb) Previous labs/tests for medication: Not applicable Please advise. Thank you. Freda Tao LPN documented in this encounterPromedica Bay [facility] Hospital03-15-2023 Miscellaneous Notes* Telephone Encounter - Freda Tao LPN - 11/22/2022 8:08 PM EDT patient notified and verbalized understanding. Freda Tao LPN * Telephone Encounter - Dee Ashley MD - 11/22/2022 8:01 PM EDT Please ask patient to cut down his coumadin to 2.5 mgs today, and tomorrow And then start a new regimen when on steroid cream of 2.mgs of sun and and 5 mgs the rest of the week Regards, Dee Ashley MD * Telephone Encounter - Freda Tao LPN - 11/22/2022 7:53 PM EDT Last INR: PT INR 3.1. 11/22/2022 Current dose of coumadin is: coumadin 5 mg mon-sat and 2.5 mg on sun. Last date of dose change: 02/03/22. Previous INR (date and result): 10/25/2022 2.2 Additional Clinical Information or narrative: yes: Contract Paralegal gave patient steroid cream documented in this encounterPromedica Bay Park Hospital03-14-2023 History of Present illness Narrative* Dee Ashley MD - 11/21/2022 2:16 PM EDT Reason for Visit Patient presents with: F/U Diabetes 3 Month Yazan Nolasco is a 72 year old male who presents here today for Above Complaints. Health Maintenance BP CONTROLLED (<130/80) HEPATITIS B(1 of 3 - Risk 3-dose series) SHINGRIX VACCINE(2 of 3) DTAP,TDAP,TD(3 - Td or Tdap) ADVANCE DIRECTIVE DISCUSSION DIABETIC FOOT EXAM DILATED RETINAL EXAM HPI Psoriasis with arthritis: he is seeing Dr Smith for derma, we discussed otezla. For now he is on the steroid cream and it is looking better. But he may switch to the otezla. He has shoulder neck and hand pain . Also has a ganglion cyst that needs to be drained. Has an upcoming apt with Dr dickinson. His hb is much better and almost normal.11.99 which is highest in the past year or more. He is still have microcytic anemia; patient takes iron 2 times a day. To continue medication. Hypothyroidism. She is doing well on her current dose of Synthroid. Denies fatigue, cold intolerance and swelling in feet. TSH recently checked and normal. HPL: Reviewed test results with patient , takes medications regularly , does not report side effects. Conscious to avoid red meats, full fat dairy and its by products. Exercising 3 to 5 times a week. The medication delays bf by half hour. Potassium is on the lower side despite taking the potassium supplements, 2 times a day, Will change to spirolactone Diabetes Mellitus: her hba1c is 5.6. he likes his semaglutide. He has gastropathy, presents as diarrhea, it is not painful in anyway.the food stays longer in the stomach, he has cut down his portionsbut is also not nearly as active as he should. Weight has been stable recently.he has been eating alot of celery, which messes up with his INR readings. Is able to control his diet. He has been eating like a fool eating luna cookies, a lot at at time. Has been to see Dr Serrano, who says he has copd added a nebulizer and inhaler he will call with that medication as he does not know the medication No problem-specific Assessment & Plan notes found for this encounter. 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 Diabetes mellitus (HCC) Diarrhea Dual implantable cardioverter-defibrillator in situ Dyslipidemia Esophageal reflux Ex-smoker Mononeuritis of unspecified site Obesity, unspecified Other chronic nonalcoholic liver disease Personal history of colonic polyps 03/20/2005 hyperplastic polyps Unspecified essential hypertension PAST SURGICAL HISTORY Procedure Laterality Date BSCAN OS (LEFT EYE) Left COLONOSCOPY FLX DX W/COLLJ SPEC WHEN PFRMD 03/20/2005 Colonoscopy COLONOSCOPY FLX DX W/COLLJ SPEC WHEN PFRMD 06/15/2015 Colonoscopy [facility] out pt ENDOSCOPY PROC 08/2018 ESOPHAGOGASTRODUODENOSCOPY TRANSORAL DIAGNOSTIC 06/15/2015 EGD [facility] out pt EXCISION PILONIDAL CYST/SINUS SIMPLE 01/19/2003 Excision pilonidal cyst PACEMAKER SURGERY 03/11/2012 pacer/defib PACEMAKER SURGERY 09/17/2018 PAST SURGICAL HISTORY OF 09/16/2012 eye surgery, s/p Plaque OS PRO SMART PILL CAPSULE PROC ([id number]) REMOVAL GALLBLADDER 06/10/2021 REMOVE PACEMAKER SYSTEM 09/17/2018 replaced it all RPR UMBILICAL HERNIA < 5 YRS REDUCIBLE 02/17/1999 Hernia repair, umbilical FAMILY HISTORY Problem Relation Age of Onset Heart Mother of CHF at 91 Stroke Mother Hypertension Mother other (Other) Father at 87 of a brain aneurysm Hypertension Brother Stroke Brother Heart Brother No Ocular Disease Other Social History Tobacco Use Smoking status: Former Packs/day: 1.00 Years: 40.00 Pack years: 40.00 Types: Cigarettes Quit date: 03/26/2009 Years since quittin.6 Smokeless tobacco: Never Vaping Use Vaping Use: Never used Substance Use Topics 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 Pertinent Lab/Diagnostic Studies are reviewed and discussed today Current Outpatient Medications: clobetasol (TEMOVATE) 0.05 % cream tamsulosin (FLOMAX) 0.4 mg semaglutide (OZEMPIC) 1 mg/dose (4 mg/3 mL) pen levothyroxine (LEVOXYL) 50 mcg tablet lisinopril (ZESTRIL, PRINIVIL) 40 mg tablet insulin glargine (LANTUS SOLOSTAR U-100 INSULIN) 100 unit/mL (3 mL) amLODIPine (NORVASC) 5 mg tablet magnesium oxide (MAGOX) 400 mg (241.3 mg magnesium) tablet potassium chloride (KLOR-CON 10) 10 mEq tablet metFORMIN ER (GLUCOPHAGE XR) 500 mg 24 hr tablet metoprolol tartrate, short acting, (LOPRESSOR) 100 mg tablet iron polysaccharide complex (FERREX 150) 150 mg iron capsule hydroCHLOROthiazide (HYDRODIURIL, ESIDRIX) 25 mg tablet allopurinol (ZYLOPRIM) 100 mg tablet DULoxetine (CYMBALTA) 60 mg capsule lovastatin (MEVACOR) 20 mg tablet warfarin (COUMADIN) 5 mg tablet gabapentin (NEURONTIN) 600 mg tablet warfarin (COUMADIN) 2.5 mg tablet acetaminophen (TYLENOL) 500 mg tablet LILO PEN NEEDLE 32 gauge x nd Blood Sugar Diagnostic, Drum (ACCU-CHEK COMPACT TEST) strp Lancets (ACCU-CHEK SOFTCLIX LANCETS) [facility] [place] lancets Current Facility-Administered Medications: perflutren lipid microspheres 1.3 mL in NaCl (PF) 0.9% 10 mL injection (DEFINITY) sodium chloride 0.9 % (flush) 10 mL (BD POSIFLUSH) Review of Systems CONSTITUTIONAL: No fevers, chills night sweats, unintended weight loss CARDIOVASCULAR: No chest pain, dyspnea, palpitations, orthopnea, PND, ankle edema. PULM: No dyspnea, unexplained cough. GI: No dysphagia/odynophagia, problematic reflux, constipation, diarrhea, changes in stool habits, hematochezia, melena. : No new urinary complaints, including dysuria, gross hematuria or pyuria. NEURO: No new balance problems, peripheral weakness/paresthesias or numbness of concern. Physical Exam BP 118/58 (BP Site: Left Arm, BP Position: Sitting, BP Cuff Size: Large Adult) Pulse 86 Temp 36.1 C (97 F) Resp 14 Ht 172.7 cm (5' 8) Wt 111.1 kg (245 lb) SpO2 98% BMI 37.25 kg/m General appearance: Well appearing, alert, in no acute distress, well nourished. Skin: Skin color, texture, turgor normal, no suspicious rashes or lesions Head: Normocephalic, no masses, lesions, tenderness or abnormalities Eyes: Anicteric sclera. Pupils are equally round and reactive to light. Extraocular movements are intact. Lungs: Lungs clear to auscultation. No wheezing, rhonchi, rales Heart: RRR without murmur, gallop, or rubs. Extremities: No deformities, edema, skin discoloration, clubbing or cyanosis. Good capillary refill. Feet: Shoes and socks removed, No deformities, ulcers, calluses, normal distal pulses, and not sensitive to monofilament in the fore part of the foot b/l ASSESSMENT/PLAN: Changed medications today - Recommended regular aerobic exercise. - Recommend home blood pressure monitoring, to bring results in on next visit - Goal of BP <130/80 - BASIC METABOLIC PNL 2. Hypokalemia - ICD9: 276.8, ICD10: E87.6 To continue the current spironolactone medication 3. Recurrent major depressive disorder, in partial remission (HCC) - ICD9: 296.35, ICD10: F33.41 Cont the cymbalta 4. Thrombocytopenia (HCC) - ICD9: 287.5, ICD10: D69.6 Platelet numbers are better than before 5. Hypothyroidism, unspecified type - ICD9: 244.9, ICD10: E03.9 - Instructed patient on importance of taking on an empty stomach either first thing in the morning or at bedtime. Stable - Continue current medications - TSH BLD 6. Type 2 diabetes mellitus with stage 3a chronic kidney disease, with long-term current use of insulin ([facility]) - ICD9: 250.40, 585.3, V58.67, ICD10: E11.22, N18.31, Z79.4 - Controlled - Continue current medications 7. SVT (supraventricular tachycardia) ([facility]) - ICD9: 427.89, ICD10: I47.1 Stable 8. Diastolic dysfunction - ICD9: 429.9, ICD10: I51.89 Stable not much swelling today Dee Ashley MD documented in this encounterPromedica [facility]03-06-[facility] History of Present illness Narrative* Keyshawn Ordonez MD - 11/13/2022 11:54 AM EST Images from the original note were not included. Keyshawn Ordonez MD Interventional Cardiology [facility] [address] [place], [place] [address] [id number] Chief Complaint Patient presents with: Established Patient Follow-Up HISTORY OF PRESENT ILLNESS: Mr. Nolasco is a 72 year old male seen in my office for follow-up prior history of cardiomyopathy with atrial flutter mild nonobstructive coronary artery disease with dual-chamber pacemaker ICD insertion many years Recent echocardiogram shows normalization of LV function on medical treatment ejection fraction 57% Sitting interrogation shows brief episodes of atrial flutter lasted less than 10 seconds 7 episodespatient maintained on anticoagulation warfarin No angina NO Symptoms or signs of congestive heart Cardiac Risk Factors age (male over 45, female over 55), hyperlipidemia, hypertension, family history of CAD 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 Diabetes mellitus (HCC) Diarrhea Dual implantable cardioverter-defibrillator in situ Dyslipidemia Esophageal reflux Ex-smoker Mononeuritis of unspecified site Obesity, unspecified Other chronic nonalcoholic liver disease Personal history of colonic polyps 03/20/2005 hyperplastic polyps Unspecified essential hypertension PAST SURGICAL HISTORY Procedure Laterality Date BSCAN OS (LEFT EYE) Left COLONOSCOPY FLX DX W/COLLJ SPEC WHEN PFRMD 03/20/2005 Colonoscopy COLONOSCOPY FLX DX W/COLLJ SPEC WHEN PFRMD 06/15/2015 Colonoscopy [facility] out pt ENDOSCOPY PROC 08/2018 ESOPHAGOGASTRODUODENOSCOPY TRANSORAL DIAGNOSTIC 06/15/2015 EGD [facility] out pt EXCISION PILONIDAL CYST/SINUS SIMPLE 01/19/2003 Excision pilonidal cyst PACEMAKER SURGERY 03/11/2012 pacer/defib PACEMAKER SURGERY 09/17/2018 PAST SURGICAL HISTORY OF 09/16/2012 eye surgery, s/p Plaque OS PRO SMART PILL CAPSULE PROC ([id number]) REMOVAL GALLBLADDER 06/10/2021 REMOVE PACEMAKER SYSTEM 09/17/2018 replaced it all RPR UMBILICAL HERNIA < 5 YRS REDUCIBLE 02/17/1999 Hernia repair, umbilical FAMILY HISTORY Problem Relation Age of Onset Heart Mother of CHF at 91 Stroke Mother Hypertension Mother other (Other) Father at 87 of a brain aneurysm Hypertension Brother Stroke Brother Heart Brother No Ocular Disease Other Social History Tobacco Use Smoking status: Former Packs/day: 1.00 Years: 40.00 Pack years: 40.00 Types: Cigarettes Quit date: 03/26/2009 Years since quittin.6 Smokeless tobacco: Never Vaping Use Vaping Use: Never used Substance Use Topics 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 tamsulosin (FLOMAX) 0.4 mg Take 2 capsules by mouth once daily 180 capsule 1 semaglutide (OZEMPIC) 1 mg/dose (4 mg/3 mL) pen Inject 1 mg subcutaneously one time a week. 2 Each 4 levothyroxine (LEVOXYL) 50 mcg tablet Take 1 tablet by mouth once daily. Take on empty stomach. ForThyroid 30 tablet 5 lisinopril (ZESTRIL, PRINIVIL) 40 mg tablet Take 1 tablet by mouth once daily. 90 tablet 3 insulin glargine (LANTUS SOLOSTAR U-100 INSULIN) 100 unit/mL (3 mL) Inject 36 Units subcutaneously daily at bedtime. 5 Each 5 amLODIPine (NORVASC) 5 mg tablet Take 1 tablet by mouth once daily. 90 tablet 3 magnesium oxide (MAGOX) 400 mg (241.3 mg magnesium) tablet Take 1 tablet by mouth twice daily. 60 tablet 5 potassium chloride (KLOR-CON 10) 10 mEq tablet Take 1 tablet by mouth twice daily. 60 tablet 5 metFORMIN ER (GLUCOPHAGE XR) 500 mg 24 hr tablet Take 2 tablets by mouth twice daily. 360 tablet 3 metoprolol tartrate, short acting, (LOPRESSOR) 100 mg tablet Take 1 tablet by mouth twice daily. 180 tablet 3 iron polysaccharide complex (FERREX 150) 150 mg iron capsule Take 1 capsule by mouth twice daily. 180 capsule 3 hydroCHLOROthiazide (HYDRODIURIL, ESIDRIX) 25 mg tablet Take 1 tablet by mouth once daily. 90 tablet 3 allopurinol (ZYLOPRIM) 100 mg tablet Take 2 tablets by mouth once daily. 180 tablet 3 DULoxetine (CYMBALTA) 60 mg capsule Take 1 capsule by mouth once daily. 90 capsule 3 lovastatin (MEVACOR) 20 mg tablet Take 1 tablet by mouth daily at bedtime. 90 tablet 1 warfarin (COUMADIN) 5 mg tablet Take 1 tablet by mouth once daily. (Patient taking differently: Take 5 mg by mouth once daily. 6 days per week) 30 tablet 11 gabapentin (NEURONTIN) 600 mg tablet Take 1 tablet by mouth daily at bedtime for 180 days. 90 tablet 3 warfarin (COUMADIN) 2.5 mg tablet Take by mouth daily or as directed by your physician (Patient taking differently: Take by mouth daily or as directed by your physician 1 day per week) 90 tablet 3 acetaminophen (TYLENOL) 500 mg tablet Take 500 mg by mouth as needed. LILO PEN NEEDLE 32 gauge x 5/32 ndle USE TWICE DAILY WITH INSULIN DOSE 200 Each 3 Blood Sugar Diagnostic, Drum (ACCU-CHEK COMPACT TEST) strp Test blood sugar(s) 4 times daily. Dx: DM 250 Insulin: Yes 51 Strip 11 Lancets (ACCU-CHEK SOFTCLIX LANCETS) Misc lancets three times daily as needed. Dx. 250.00 100 Each 11 Current Facility-Administered Medications Medication Dose Route Frequency Provider Last Rate Last Admin perflutren lipid microspheres 1.3 mL in NaCl (PF) 0.9% 10 mL injection (DEFINITY) INTRAVENOUS DIRECTED PRN Christoph Chavis MD sodium chloride 0.9 % (flush) 10 mL (BD POSIFLUSH) 10 mL INTRAVENOUS DIRECTED PRN Christoph Chavis MD Review of Systems Constitutional: Negative for chills, diaphoresis, fever, malaise/fatigue and weight loss. HENT: Negative for congestion, ear discharge, ear pain, hearing loss, nosebleeds, sinus pain, sore throat and tinnitus. Eyes: Negative for blurred vision, double vision, photophobia, pain, discharge and redness. Respiratory: Negative for cough, hemoptysis, sputum production, shortness of breath, wheezing and stridor. Cardiovascular: Negative for chest pain, palpitations, orthopnea, claudication, leg swelling and PND. Gastrointestinal: Negative for abdominal pain, blood in stool, constipation, diarrhea, heartburn, melena, nausea and vomiting. Genitourinary: Negative for dysuria, flank pain, frequency, hematuria and urgency. Musculoskeletal: Negative for back pain, falls, joint pain, myalgias and neck pain. Skin: Negative for itching and rash. Neurological: Negative for dizziness, tingling, tremors, sensory change, speech change, focal weakness, seizures, loss of consciousness, weakness and headaches. Endo/Heme/Allergies: Negative for environmental allergies and polydipsia. Does not bruise/bleed easily. Psychiatric/Behavioral: Negative for depression, hallucinations, memory loss, substance abuse and suicidal ideas. The patient is not nervous/anxious and does not have insomnia. Physical Examination: Vitals:BP 120/80 Pulse 80 Resp 18 Wt 249 lb (112.9kg) BP w/Orthostatic Vitals Date and Time Orthostatic BP Orthostatic Pulse BP Pulse BP Position BP Site BP Cuff Size 11/13/22 1101 -- -- 120/80 80 Sitting Right Arm Large Adult Peak Flow Date and Time PF Resp 11/13/22 1101 -- 18 Last 2 Encounter Wt Readings: Date: Wt: 11/13/2022 112.9 kg (249 lb) 08/22/2022 113.9 kg (251 lb) Physical Exam Constitutional: General: He is not in acute distress. Appearance: He is not diaphoretic. HENT: Head: Normocephalic and atraumatic. Right Ear: External ear normal. Left Ear: External ear normal. Nose: Nose normal. Mouth/Throat: Pharynx: Oropharynx is clear. Eyes: General: Right eye: No discharge. Left eye: No discharge. Conjunctiva/sclera: Conjunctivae normal. Pupils: Pupils are equal, round, and reactive to light. Cardiovascular: Rate and Rhythm: Normal rate and regular rhythm. Heart sounds: Normal heart sounds, S1 normal and S2 normal. No murmur heard. No friction rub. No gallop. No S3 or S4 sounds. Pulmonary: Effort: Pulmonary effort is normal. No respiratory distress. Breath sounds: Normal breath sounds. No wheezing or rales. Chest: Chest wall: No tenderness. Musculoskeletal: General: Normal range of motion. Cervical back: Normal range of motion and neck supple. Skin: General: Skin is warm and dry. Neurological: Mental Status: He is alert and oriented to person, place, and time. Psychiatric: Mood and Affect: Mood normal. Thought Content: Thought content normal. Judgment: Judgment normal. Pertinent Labs: CBC: Hemoglobin (g/dL) Date Value 11/07/2022 11.9 10/24/2021 9.2 Hematocrit (%) Date Value 11/07/2022 36.4 10/24/2021 30.9 WBC (k/uL) Date Value 11/07/2022 4.77 10/24/2021 4.00 Platelet Count (k/uL) Date Value 11/07/2022 119 10/24/2021 105 BMP: Glucose (mg/dL) Date Value 11/07/2022 85 09/26/2021 146 Potassium (mmol/L) Date Value 11/07/2022 3.3 09/26/2021 3.6 Sodium (mmol/L) Date Value 11/07/2022 136 09/26/2021 136 Chloride (mmol/L) Date Value 11/07/2022 99 09/26/2021 98 CO2 (mmol/L) Date Value 11/07/2022 25 09/26/2021 22 Creatinine (mg/dL) Date Value 11/07/2022 0.84 09/26/2021 1.24 BUN (mg/dL) Date Value 11/07/2022 9 09/26/2021 12 Anion Gap (mmol/L) Date Value 11/07/2022 12 09/26/2021 16 Calcium (mg/dL) Date Value 09/26/2021 9.2 Calcium, Total (mg/dL) Date Value 11/07/2022 9.2 INR: Lipid Profile: Cholesterol, Total Date Value Ref Range Status 11/07/2022 111 <200 mg/dL Final Comment: <200 mg/dL, Desirable 200-239 mg/dL, Borderline high >239 mg/dL, High HDL Cholesterol Date Value Ref Range Status 11/07/2022 27 (L) >39 mg/dL Final Comment: 40-59 mg/dL, Acceptable >59 mg/dL, High: Negative risk factor for coronary heart disease <40 mg/dL, Low: Positive risk factor for coronary heart disease LDL Cholesterol Date Value Ref Range Status 11/07/2022 53 <100 mg/dL Final Comment: <100 mg/dL, Optimal 100-129 mg/dL, Near optimal/above optimal 130-159 mg/dL, Borderline high 160-189 mg/dL, High >189 mg/dL, Very high Secondary prevention optimal LDL Cholesterol levels are recommended to be < 70 mg/dL Triglyceride Date Value Ref Range Status 11/07/2022 157 (H) <150 mg/dL Final Comment: <150 mg/dL, Normal 150-199 mg/dL, Borderline high 200-499 mg/dL, High >499 mg/dL, Very high Hemoglobin A1C: No results found for: HGBA1C TSH: No results found for: TSHREFL Prior Cardiac Testing NONE Assessment and Plan: 73 years old gentleman with prior history of atrial flutter cardiomyopathy Cardiomyopathy improved on current medical therapy Recent ejection fraction is 57% Continue same medicine 2,. Atrial flutter Rate control anticoagulation 3. Maker ICD interrogation Battery life 10.5 years Few episodes of atrial flutter Follow up planning: ONE YEAR Electronically signed by Keyshawn Ordonez MD on November 13, 2022, 11:54 AM The above note was partially created using a dictation recognition software. A reasonable attempt has been made to correct any errors. documented in this encounterPromedica [facility]02-22-2023 Miscellaneous Notes* Telephone Encounter - Geovanna Oliver LPN - 11/01/2022 4:53 PM EST Patient has been identified by name and date of : Yes, Provider Dr. Ashley Date 11/01/22 Time 4:53 pm Pharmacy phones for refill(s): Requested Prescriptions Pending Prescriptions Disp Refills tamsulosin (FLOMAX) 0.4 mg [Pharmacy Med Name: Tamsulosin HCl 0.4 MG Oral Capsule] 180 capsule 0 Sig: Take 2 capsules by mouth once daily Date of last office visit in primary care: 08/22/22 next apt 11/21/22 Last 2 Encounter Wt Readings: Date: Wt: 08/22/2022 113.9 kg (251 lb) 05/23/2022 111.6 kg (246 lb) Previous labs/tests for medication: Not applicable Thank you. Geovanna Oliver LPN documented in this encounterPromedica Bay [facility] Hospital02-15-2023 Miscellaneous Notes* Telephone Encounter - Shaneka High - 10/25/2022 9:27 AM EST Patient records received via electronic fax. Uploaded to [employer] Shaneka High documented in this encounterPromedica Bay [facility] Hospital01-18-2023 Miscellaneous Notes* Telephone Encounter - Freda Tao LPN - 09/27/2022 5:19 PM EST patient notified and verbalized understanding. Freda Tao LPN * Telephone Encounter - Sagrario Bhandari APRN.CNP - 09/27/2022 4:46 PM EST Dose: No Change. Repeat in INR in 1 month Sagrario Bhandari APRN.CNP * Telephone Encounter - Freda Tao LPN - 09/27/2022 2:37 PM EST Last INR: PT INR 2.1 09/27/2022 Current dose of coumadin is: Coumadin 5 mg daily Sun- Sun, Sunday 2.5 mg. Last date of dose change: 02/03/2022. Previous INR (date and result): 2.4 08/30/2022 Additional Clinical Information or narrative: no documented in this encounterPromedica Bay Park Hospital12-22-2022 History of Present illness Narrative* Zulema Monzon Ma - 08/31/2022 11:12 AM EST PT ASSESSMENT - CASTING ROOM Yazan presents for Application of brace. Applied modabber to Left wrist Patient has been instructed in Care and proper application of brace.. Zulema Monzon Ma * Alireza Dickinson MD - 08/31/2022 10:32 AM EST Alireza Dickinson MD Department of Orthopaedics Orthopaedics [address] [place] [id number] Dept: [phone] Dept August 31, 2022 CHIEF COMPLAINT: New of the Left Wrist and Ganglion cyst Left wrist - Referred by Dr Ashley (Last seen 04/11/12 ganglion cyst left wrist) HPI Intake information documented in the prior visit with Dr. Ashley on 08/22/2022. Patient states his cyst started to return on his left hand about 3 years ago but in the past 6-7 months it starting moving into his wrist. He gets a sharp pain occurs with movement. States he uses his left hand to run the remote. Taking no med's for the pain. He is right hand dominant. 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 It certainly possible its primarily ganglion but we could double check with the ultrasound at some point. Does not seem like any intervention is quite necessary at this time but will provide him with a wrist guard for heavier activities and he is going to try a topical anti-inflammatory for a bit. FOLLOW UP INSTRUCTIONS: As needed Mr. Yazan Nolasco was advised as to contrast therapies and/or to take analgesics/anti-inflammatories as needed and all contraindications were reviewed. OBJECTIVE: Mr. Yazan Nolasco is a pleasant 72 year old in no apparent distress. Gen:There were no vitals taken for this visit. nl development, obese, no deformities ENT: Normocephalic, normal hearing, moist mucosa CV: Pulses:Radial= 2+ and symmetric, capillary refill < 2 secs, no peripheral edema/varicosities Skin: no rash, bruising or lesions. Good turgor. Psych: cooperative and appropriate, alert and oriented x 3, good mood and affect. Musculoskeletal: Focal area of swelling over the dorsum of the wrist centrally. Little bit of global swelling acrossthe radiocarpal and ulnar joints. Boggy soft tissue swelling over the dorsum of the wrist with a little bit of movement on flexion and extension of the tendons. 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 Diabetes mellitus (HCC) Diarrhea Dual implantable cardioverter-defibrillator in situ Dyslipidemia Esophageal reflux Ex-smoker Mononeuritis of unspecified site Obesity, unspecified Other chronic nonalcoholic liver disease Personal history of colonic polyps 03/20/2005 hyperplastic polyps Unspecified essential hypertension Past Surgical History: PAST SURGICAL HISTORY Procedure Laterality Date BSCAN OS (LEFT EYE) Left COLONOSCOPY FLX DX W/COLLJ SPEC WHEN PFRMD 03/20/2005 Colonoscopy COLONOSCOPY FLX DX W/COLLJ SPEC WHEN PFRMD 06/15/2015 Colonoscopy [facility] out pt ENDOSCOPY PROC 08/2018 ESOPHAGOGASTRODUODENOSCOPY TRANSORAL DIAGNOSTIC 06/15/2015 EGD [facility] out pt EXCISION PILONIDAL CYST/SINUS SIMPLE 01/19/2003 Excision pilonidal cyst PACEMAKER SURGERY 03/11/2012 pacer/defib PACEMAKER SURGERY 09/17/2018 PAST SURGICAL HISTORY OF 09/16/2012 eye surgery, s/p Plaque OS PRO SMART PILL CAPSULE PROC ([id number]) REMOVAL GALLBLADDER 06/10/2021 REMOVE PACEMAKER SYSTEM 09/17/2018 replaced it all RPR UMBILICAL HERNIA < 5 YRS REDUCIBLE 02/17/1999 Hernia repair, umbilical Family History: FAMILY HISTORY Problem Relation Age of Onset Heart Mother of CHF at 91 Stroke Mother Hypertension Mother other (Other) Father at 87 of a brain aneurysm Hypertension Brother Stroke Brother Heart Brother No Ocular Disease Other Social History: Social History Tobacco Use Smoking status: Former Packs/day: 1.00 Years: 40.00 Pack years: 40.00 Types: Cigarettes Quit date: 03/26/2009 Years since quittin.4 Smokeless tobacco: Never Vaping Use Vaping Use: Never used Substance Use Topics Alcohol use: Not Currently Comment: 1991 Drug use: Not Currently Medications: Current Outpatient Medications Medication Sig levothyroxine (LEVOXYL) 50 mcg tablet Take 1 tablet by mouth once daily. Take on empty stomach. ForThyroid lisinopril (ZESTRIL, PRINIVIL) 40 mg tablet Take 1 tablet by mouth once daily. insulin glargine (LANTUS SOLOSTAR U-100 INSULIN) 100 unit/mL (3 mL) Inject 36 Units subcutaneously daily at bedtime. amLODIPine (NORVASC) 5 mg tablet Take 1 tablet by mouth once daily. magnesium oxide (MAGOX) 400 mg (241.3 mg magnesium) tablet Take 1 tablet by mouth twice daily. potassium chloride (KLOR-CON 10) 10 mEq tablet Take 1 tablet by mouth twice daily. metFORMIN ER (GLUCOPHAGE XR) 500 mg 24 hr tablet Take 2 tablets by mouth twice daily. metoprolol tartrate, short acting, (LOPRESSOR) 100 mg tablet Take 1 tablet by mouth twice daily. iron polysaccharide complex (FERREX 150) 150 mg iron capsule Take 1 capsule by mouth twice daily. hydroCHLOROthiazide (HYDRODIURIL, ESIDRIX) 25 mg tablet Take 1 tablet by mouth once daily. semaglutide (OZEMPIC) 1 mg/dose (4 mg/3 mL) pen injector Inject 1 mg subcutaneously one time a week. allopurinol (ZYLOPRIM) 100 mg tablet Take 2 tablets by mouth once daily. DULoxetine (CYMBALTA) 60 mg capsule Take 1 capsule by mouth once daily. lovastatin (MEVACOR) 20 mg tablet Take 1 tablet by mouth daily at bedtime. warfarin (COUMADIN) 5 mg tablet Take 1 tablet by mouth once daily. (Patient taking differently: Take 5 mg by mouth once daily. 6 days per week) gabapentin (NEURONTIN) 600 mg tablet Take 1 tablet by mouth daily at bedtime for 180 days. warfarin (COUMADIN) 2.5 mg tablet Take by mouth daily or as directed by your physician (Patient taking differently: Take by mouth daily or as directed by your physician 1 day per week) tamsulosin (FLOMAX) 0.4 mg Take 2 capsules by mouth once daily. acetaminophen (TYLENOL) 500 mg tablet Take 500 mg by mouth as needed. LILO PEN NEEDLE 32 gauge x ndle USE TWICE DAILY WITH INSULIN DOSE Blood Sugar Diagnostic, Drum (ACCU-CHEK COMPACT TEST) strp Test blood sugar(s) 4 times daily. Dx: DM 250 Insulin: Yes Lancets (ACCU-CHEK SOFTCLIX LANCETS) Misc lancets three times daily as needed. Dx. 250.00 ipratropium/albuterol sulfate (COMBIVENT INHALATION) Inhale as instructed. 1 puff four times a day as needed (Patient not taking: Reported on 05/09/2022) Current Facility-Administered Medications Medication Dose Route Frequency perflutren lipid microspheres 1.3 mL in NaCl (PF) 0.9% 10 mL injection (DEFINITY) INTRAVENOUS DIRECTED PRN sodium chloride 0.9 % (flush) 10 mL (BD POSIFLUSH) 10 mL INTRAVENOUS DIRECTED PRN Allergies: Patient has no known allergies. ROS: General (negative for fatigue, malaise, weight loss/gain) HEENT (negative for headache, earache, recent vision changes, sinus pain, sore throat) Respiratory (no recent shortness of breath, hemoptysis) CV (negative for chest tightness, palpitations) Musculoskeletal (see HPI) Psych (no depression, anxiety) REFERRING PHYSICIAN: Consultation requested by Dr. Ashley for an opinion regarding left wrist swelling. My final recommendations will be communicated back to the requesting physician by way of shared Medical record or letter to requesting physician via US mail. Dee Ashley [address] [facility] [address] Dee Ashley MD [address] [facility] [id number] Alireza Dickinson MD documented in this encounterPromedica Bay Park Hospital12-21-2022 Miscellaneous Notes* Telephone Encounter - Shelia Charles Ma - 08/30/2022 7:38 PM EST Patient notified. * Telephone Encounter - Lino Bhandari APRN.CNP - 08/30/2022 6:53 PM EST INR is therapeutic. Continue current dose and recheck in 4 weeks. Thank you Lino Bhandari APRN.CNP * Telephone Encounter - Shelia Charles Ma - 08/30/2022 6:35 PM EST Last INR: PT INR 2.4 08/28/2022 via fax Current dose of coumadin is: 5mg daily except 2.5 on Sunday . Last date of dose change: . Previous INR (date and result): 2.3 08/23/22 Additional Clinical Information or narrative: no documented in this encounterPromedica Bay Park Hospital12-14-2022 Miscellaneous Notes* Telephone Encounter - Freda Tao LPN - 08/23/2022 7:58 PM EST patient notified and verbalized understanding. Freda Tao LPN * Telephone Encounter - Lino Bhandari APRN.CNP - 08/23/2022 7:17 PM EST INR is therapeutic. Continue current dose and recheck INR in 4 weeks. Thank you Lino Bhandari APRN.CNP * Telephone Encounter - Freda Tao LPN - 08/23/2022 2:55 PM EST Last INR: PT INR 2.3 08/23/2022 Current dose of coumadin is: Coumadin 5 mg all days except for Sunday 2.5 mg. Last date of dose change: 02/03/2022. Previous INR (date and result): 08/07/2022 1.9 Additional Clinical Information or narrative: no documented in this encounterPromedica Bay Park Hospital12-13-2022 History of Present illness Narrative* Dee Ashley MD - 08/22/2022 11:49 AM EST Reason for Visit Patient presents with: F/U Diabetes 3 Month: left wrist pain Yazan Nolasco is a 72 year old male who presents here today for Above Complaints.. Health Maintenance HEPATITIS B(1 of 3 - Risk 3-dose series) SHINGRIX VACCINE(2 of 3) ADVANCE DIRECTIVE DISCUSSION DTAP,TDAP,TD(3 - Td or Tdap) COVID-19 VACCINE(5 - Booster for Pfizer series) HPI Patient is taking iron medication 2 times a day, iron levels are better than before. Hb is 11.2 which is an improvement to being normal. When he was anemic he slowed down a lot. He notes feeling very fatigued. Uses his sleep machine everyday .Tsh, is elevated. Starting him on thyroid medication. He has a ganglion cyst of the left wrist. Which is causing him to have some pain and limitations with the wrist that. some issues. Diabetes Mellitus: her hba1c is 6.0. he likes his semaglutide. Is able to control his diet. He has been eating like a fool eating luna cookies, a lot at at time. HTN: Compliant with medications. Denies any chest pain, palpitations, or edema. No SOB. Doesn't check BP at home generally. Careful with diet to avoid salt, trying to eat more fruits and vegetables, exercises regularly. No problem-specific Assessment & Plan notes found for this encounter. 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 Diabetes mellitus (HCC) Diarrhea Dual implantable cardioverter-defibrillator in situ Dyslipidemia Esophageal reflux Ex-smoker Mononeuritis of unspecified site Obesity, unspecified Other chronic nonalcoholic liver disease Personal history of colonic polyps 03/20/2005 hyperplastic polyps Unspecified essential hypertension PAST SURGICAL HISTORY Procedure Laterality Date BSCAN OS (LEFT EYE) Left COLONOSCOPY FLX DX W/COLLJ SPEC WHEN PFRMD 03/20/2005 Colonoscopy COLONOSCOPY FLX DX W/COLLJ SPEC WHEN PFRMD 06/15/15 Colonoscopy [facility] out pt ENDOSCOPY PROC 08/2018 ESOPHAGOGASTRODUODENOSCOPY TRANSORAL DIAGNOSTIC 06/15/15 EGD [facility] out pt EXCISION PILONIDAL CYST/SINUS SIMPLE 01/19/2003 Excision pilonidal cyst PACEMAKER SURGERY 03-11-2012 pacer/defib PACEMAKER SURGERY 09/17/2018 PAST SURGICAL HISTORY OF 09/16/2012 eye surgery, s/p Plaque OS PRO SMART PILL CAPSULE PROC ([id number]) REMOVE PACEMAKER SYSTEM 09/17/2018 replaced it all RPR UMBILICAL HERNIA < 5 YRS REDUCIBLE 02/17/1999 Hernia repair, umbilical FAMILY HISTORY Problem Relation Age of Onset Heart Mother of CHF at 91 Stroke Mother Hypertension Mother other (Other) Father at 87 of a brain aneurysm Hypertension Brother Stroke Brother Heart Brother No Ocular Disease Other Social History Tobacco Use Smoking status: Former Packs/day: 1.00 Years: 40.00 Pack years: 40.00 Types: Cigarettes Quit date: 03/26/2009 Years since quittin.4 Smokeless tobacco: Never Vaping Use Vaping Use: Never used Substance Use Topics 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 Pertinent Lab/Diagnostic Studies are reviewed and discussed today Current Outpatient Medications: insulin glargine (LANTUS SOLOSTAR U-100 INSULIN) 100 unit/mL (3 mL) amLODIPine (NORVASC) 5 mg tablet magnesium oxide (MAGOX) 400 mg (241.3 mg magnesium) tablet potassium chloride (KLOR-CON 10) 10 mEq tablet metFORMIN ER (GLUCOPHAGE XR) 500 mg 24 hr tablet metoprolol tartrate, short acting, (LOPRESSOR) 100 mg tablet iron polysaccharide complex (FERREX 150) 150 mg iron capsule hydroCHLOROthiazide (HYDRODIURIL, ESIDRIX) 25 mg tablet semaglutide (OZEMPIC) 1 mg/dose (4 mg/3 mL) pen injector allopurinol (ZYLOPRIM) 100 mg tablet DULoxetine (CYMBALTA) 60 mg capsule lovastatin (MEVACOR) 20 mg tablet warfarin (COUMADIN) 5 mg tablet gabapentin (NEURONTIN) 600 mg tablet warfarin (COUMADIN) 2.5 mg tablet tamsulosin (FLOMAX) 0.4 mg lisinopril (ZESTRIL, PRINIVIL) 40 mg tablet acetaminophen (TYLENOL) 500 mg tablet ipratropium/albuterol sulfate (COMBIVENT INHALATION) LILO PEN NEEDLE 32 gauge x ndle Blood Sugar Diagnostic, Drum (ACCU-CHEK COMPACT TEST) strp Lancets (ACCU-CHEK SOFTCLIX LANCETS) Misc lancets Current Facility-Administered Medications: perflutren lipid microspheres 1.3 mL in NaCl (PF) 0.9% 10 mL injection (DEFINITY) sodium chloride 0.9 % (flush) 10 mL (BD POSIFLUSH) Review of Systems CONSTITUTIONAL: No fevers, chills night sweats, unintended weight loss CARDIOVASCULAR: No chest pain, dyspnea, palpitations, orthopnea, PND, ankle edema. PULM: No dyspnea, unexplained cough. GI: No dysphagia/odynophagia, problematic reflux, constipation, diarrhea, changes in stool habits, hematochezia, melena. : No new urinary complaints, including dysuria, gross hematuria or pyuria. NEURO: No new balance problems, peripheral weakness/paresthesias or numbness of concern. Physical Exam BP 114/70 (BP Site: Left Arm, BP Position: Sitting, BP Cuff Size: Large Adult) Pulse 89 Temp 36.8 C (98.3 F) Resp 16 Ht 172.7 cm (5' 8) Wt 113.9 kg (251 lb) SpO2 96% BMI 38.16 kg/m General appearance: Well appearing, alert, in no acute distress, well nourished. Skin: Skin color, texture, turgor normal, no suspicious rashes or lesions Head: Normocephalic, no masses, lesions, tenderness or abnormalities Eyes: Anicteric sclera. Pupils are equally round and reactive to light. Extraocular movements are intact. Lungs: Lungs clear to auscultation. No wheezing, rhonchi, rales Heart: RRR without murmur, gallop, or rubs. Extremities: No deformities, edema, skin discoloration, clubbing or cyanosis. Good capillary refill. Left wrist has a ganglion cyst ASSESSMENT/PLAN: 1. Hypothyroidism, unspecified type - ICD9: 244.9, ICD10: E03.9 (primary diagnosis) Starting medication for the first time today - TSH BLD 2. Essential hypertension - ICD9: 401.9, ICD10: I10 - good control - Recommended regular aerobic exercise. - Recommend home blood pressure monitoring, to bring results in on next visit - Goal of BP <130/80 - LISINOPRIL 40 MG TABLET 3. Ganglion cyst - ICD9: 727.43, ICD10: M67.40 - CONSULT TO SPORTS MEDICINE 4. Type 2 diabetes mellitus with diabetic mononeuropathy, with long-term current use of insulin (HCC) - ICD9: 250.60, 355.9, V58.67, ICD10: E11.41, Z79.4 Patient was a talking a little strange things today We asked him to check sugars at home and get back - HGB A1C - COMP METABOLIC PANEL - CBC - TSH BLD - LIPID PANEL BASIC Dee Ashley MD documented in this encounterPromedica Bay Park Hospital12-05-2022 Miscellaneous Notes* Telephone Encounter - Katlyn Craig LPN - 08/14/2022 1:37 PM EST Updated [facility] for Pt. INR machine. Per PCP. .me * Telephone Encounter - Dee Ashley MD - 08/11/2022 5:15 PM EST Please tell patient to please check at least 2 times a month or else he will not be able to keep the machine. Regards, Dee Ashley MD * Telephone Encounter - Geovanna Oliver LPN - 08/10/2022 11:01 AM EST Elizabeth with [facility] called and states pt has one of their INR meters and his last INR was 07/05/22. Elizabeth states thru them you have to test weekly and pt told them he will only test monthly. If this is the case they will not be able to service him. Please advise Elizabeth. Geovanna Oliver LPN documented in this [facility]11-22-2022 Miscellaneous Notes* Telephone Encounter - Ellyn Serrano LPN - 08/01/2022 10:54 AM EST Patient has been identified by name and date of : Yes Patient phones for refill(s): Requested Prescriptions Pending Prescriptions Disp Refills insulin glargine (LANTUS SOLOSTAR U-100 INSULIN) 100 unit/mL (3 mL) 5 Each 5 Sig: Inject 36 Units subcutaneously daily at bedtime. Date of last office visit in primary care: 05/23/22 Please advise. Thank you. Ellyn Serrano LPN documented in this [facility]11-02-2022 Miscellaneous Notes* Telephone Encounter - Ellyn Pitts Ma - 07/12/2022 11:30 AM EDT Last OV: 05/23/22 Next OV: 08/22/22 documented in this [facility]11-02-2022 Miscellaneous Notes* Telephone Encounter - Ellyn Valenzuela MA - 07/12/2022 9:37 AM EDT NOV 08/22/22 YURIDIA 05/23/22 Patient electronically sent a request for the following prescription(s) Requested Prescriptions Pending Prescriptions Disp Refills amLODIPine (NORVASC) 5 mg tablet 90 tablet 3 Sig: Take 1 tablet by mouth once daily. Patient aware RX will be sent to pharmacy. No need to notify patient. Please review. Ellyn Valenzuela MA documented in this encounterPromedica Bay [facility] Hospital10-26-2022 Miscellaneous Notes* Telephone Encounter - Freda Tao LPN - 07/05/2022 7:31 PM EDT Patient notified and verbalized understanding. Freda Tao LPN * Telephone Encounter - Dee Ashley MD - 07/05/2022 7:23 PM EDT Cont the same dose and recheck in 4 weeks * Telephone Encounter - Freda Tao LPN - 07/05/2022 1:15 PM EDT Last INR: PT INR 2.3 07/05/2022 Current dose of coumadin is: coumadin 5 mg 6 days a week except for Sunday is 2.5 mg. Last date of dose change: 04/04/22. Previous INR (date and result): 05/01/22 2.0 Additional Clinical Information or narrative: no documented in this encounterPromedica Bay Park Hospital10-04-2022 Miscellaneous Notes* Telephone Encounter - Beatriz Bustamante RN - 06/13/2022 9:26 AM EDT Received a call from staff at [facility] regarding home INR monitor. Will be faxing the prescription for the patient's home INR device, however, the staff needs to know who is going to be monitoring hisINR levels before they will send the INR monitor to patient's home? Beatriz Bustamante RN documented in this encounterPromedica Bay Park Hospital09-02-2022 Miscellaneous Notes* Telephone Encounter - Ellyn Valenzuela MA - 05/12/2022 10:39 AM EDT NOV 05/23/22 YURIDIA 02/20/22 Patient electronically sent a request for the following prescription(s) Requested Prescriptions Pending Prescriptions Disp Refills metoprolol tartrate, short acting, (LOPRESSOR) 100 mg tablet 180 tablet 3 Sig: Take 1 tablet by mouth twice daily. Patient aware RX will be sent to pharmacy. No need to notify patient. Please review. Ellyn Valenzuela MA documented in this encounterPromedica Bay Park Hospital08-31-2022 Evaluation note* Diagnosis Stage 3a chronic kidney disease (HCC)- Primary Iron deficiency anemia secondary to inadequate dietary iron intake Thrombocytopenia (HCC) Thrombocytopenia, unspecified documented in this encounter [facility]08-30-[facility] History of Present illness Narrative* Angeles Floyd MD - 05/09/2022 9:50 AM EDT PATIENT NAME: Yazan Nolasco. CLINIC NO: [id number]. ATTENDING PHYSICIAN: Angeles Floyd MD. DATE OF SERVICE: 05/09/2022. DIAGNOSIS: Iron deficiency anemia and thrombocytopenia HPI: 72-year-old gentleman with history of hypertension, diabetes mellitus and on warfarin for dualpacemaker and defibrillator. He has severe anemia in June last year after cholecystectomy. He received fresh frozen plasma and also 2 units of blood after surgery for hemoglobin of 7.0. He had unexplained weight loss prior to this year. Although he denied any rectal bleeding or black tarry stool. During the time of surgery, he was told by his surgeon that he has cirrhosis. He has a history of fatty liver disease, and he had quit drinking alcohol over 5 years ago. He has no history of viral hepatitis. He complained of increased fatigue and dyspnea on exertion in July, and a CBC revealed a hemoglobin of 6.7. His platelet counts were previously between 130,000 - 95,000. His iron study was consistent with iron deficiency anemia and his vitamin B12 level of 224 was borderline low. His stool was Hemoccult negative. He had EGD and colonoscopy previously and they were normal. He also had a capsule endoscopy study 3 years ago. He was given iron sucrose 200mg IV x 5 2 months ago. His anemia improved, but he still has symptomsof fatigue and shortness of breath with exertion. He denied dizziness or lightheadedness. No changein bowel habits. He bruises easily because of warfarin and thrombocytopenia. Interim history: Mr. Nolasco denies shortness of breath or increased fatigue. He has bruising due to thrombocytopenia and warfarin therapy. He denies chest pain, palpitation, dizziness, lightheadedness or shortness of breath. He noted no change in bowel habit, no rectal bleeding or melena. All medications & allergies updated and reviewed by me. REVIEW OF SYSTEMS: CONSTITUTIONAL: No fevers, chills, nightsweats, unintended weight loss HEENT: Denies frequent or severe heaches, nasal congestion/sinus symptoms, problematic allergy problems. EYES: No diplopia or blurry vision. CARDIOVASCULAR: No chest pain, dyspnea, palpitations, orthopnea, PND, ankle edema. PULM: No dyspnea, unexplained cough. GI: No dysphagia/odynophagia, problematic reflux, constipation, diarrhea, changes in stool habits, hematochezia, melena. : No new urinary complaints, including dysuria, gross hematuria or pyuria. NEURO: No new balance problems, peripheral weakness/paresthesias or numbness of concern. MUSC-SKEL: No new joint pain, swelling, or erythema. PSY: No concerns regarding depression, anxiety or panic. INTEGUMENTARY: No new skin changes (rash, new or changing mole, new growth) PHYSICAL EXAMINATION: 72-year-old elderly gentleman in no acute distress BP 123/69 Pulse 101 Temp 97.6 Ht 5' 8.898 (1.75m) Wt 249 lb 8 oz (113.2kg) SpO2 95% BMI 36.95 kg/(m^2). HEENT: Head is normocephalic, atraumatic. Sclerae white, conjunctivae pink. PEERL. EOMs are intact.Oropharynx is benign. LYMPHATICS: There is no palpable adenopathy in the neck, supraclavicular region, axillae, or groin. LUNGS: Lungs are clear to percussion and auscultation. HEART: Heart is normal without murmurs, gallops, or rubs. ABDOMEN: Obese soft and nontender without organomegaly. No masses can be palpated. EXTREMITIES: Are without edema. + Ecchymosis ( 2 - 3 cm ) on extremities but no petechiae. NEUROLOGIC: Exam is physiologic LABORATORY DATA: Component Latest Ref Rng & Units 05/09/2022 WBC 3.70 - 11.00 k/uL 4.54 RBC 4.20 - 6.00 m/uL 4.18 (L) Hemoglobin 13.0 - 17.0 g/dL 10.8 (L) Hematocrit 39.0 - 51.0 % 33.8 (L) MCV 80.0 - 100.0 fL 80.9 MCH 26.0 - 34.0 pg 25.8 (L) MCHC 30.5 - 36.0 g/dL 32.0 RDW-CV 11.5 - 15.0 % 15.9 (H) Platelet Count 150 - 400 k/uL 90 (L) MPV 9.0 - 12.7 fL 10.3 Neut% % 71.6 Abs Neut (ANC) 1.45 - 7.50 k/uL 3.25 Lymph% % 18.9 Abs Lymph 1.00 - 4.00 k/uL 0.86 (L) Ware% % 6.4 Abs Ware <0.87 k/uL 0.29 Eosin% % 2.0 Abs Eosin <0.46 k/uL 0.09 Baso% % 0.9 Abs Baso <0.11 k/uL 0.04 Immature Gran % % 0.2 IMMATURE GRANS (ABS) <0.10 k/uL <0.03 NRBC /100 WBC 0.0 Absolute nRBC <0.01 k/uL <0.01 DTYPE Auto Component Latest Ref Rng & Units 05/09/2022 Iron 41 - 186 ug/dL 32 (L) TIBC 232 - 386 ug/dL 357 Transferrin Saturation 15.0 - 57.0 % 9.0 (L) Ferritin 30.3 - 565.7 ng/mL 33.5 Component Latest Ref Rng & Units 01/31/2022 Hep C Antibody IA Negative Negative Hep B Surface Ag Negative Negative Hep B Surface Ab, Qual Negative Negative Hep B Core Ab, Total Negative Negative ASSESSMENT: 72-year-old gentleman with iron deficiency anemia and chronic thrombocytopenia secondary to fatty liver disease vs early cirrhosis. -Stage 3a, chronic kidney disease -Anemia improved with IV iron infusion; and fecal occult was negative . -Moderate thrombocytopenia without excessive bleeding, with occasional bruising on warfarin. PLAN: -Follow-up with PCP for anemia. -Continue Ferrex 150 mg twice daily -Return if needed for hemoglobin less than 10 gm/dL or for low iron saturation and low ferritin level. -Additional iron infusion if needed, or starting erythropoietin injections for treatment of anemia of chronic disease secondary to chronic renal failure. Portions of this documentation were copied and pasted from previous office visit notes in order to provide a cohesive continuity of the history. The note has been reviewed and edited and updated as necessary. Angeles Floyd MD Cc: Dee Ashley MD documented in this encounterPromedica Bay Park Hospital08-22-2022 History of Present illness Narrative* Keyshawn Ordonez MD - 05/01/2022 2:46 PM EDT Images from the original note were not included. If he intends Keyshawn Ordonez MD Interventional Cardiology [facility] [address] [place], [place] [address] [phone] Chief Complaint Patient presents with: Established Patient Follow-Up HISTORY OF PRESENT ILLNESS: Mr. Nolasco is a 72 year old male seen in my office today for follow-up patient is doing well from the cardiac point of view sinus rhythm with no further episodes are anticoagulated with Coumadin Mild coronary artery disease nonobstructive with ICD pacemaker inserted in 2011 . 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 Diabetes mellitus (HCC) Diarrhea Dual implantable cardioverter-defibrillator in situ Dyslipidemia Esophageal reflux Ex-smoker Mononeuritis of unspecified site Obesity, unspecified Other chronic nonalcoholic liver disease Personal history of colonic polyps 03/20/2005 hyperplastic polyps Unspecified essential hypertension PAST SURGICAL HISTORY Procedure Laterality Date BSCAN OS (LEFT EYE) Left COLONOSCOPY FLX DX W/COLLJ SPEC WHEN PFRMD 03/20/2005 Colonoscopy COLONOSCOPY FLX DX W/COLLJ SPEC WHEN PFRMD 06/15/15 Colonoscopy [facility] out pt ENDOSCOPY PROC 08/2018 ESOPHAGOGASTRODUODENOSCOPY TRANSORAL DIAGNOSTIC 06/15/15 EGD [facility] out pt EXCISION PILONIDAL CYST/SINUS SIMPLE 01/19/2003 Excision pilonidal cyst PACEMAKER SURGERY 03-11-2012 pacer/defib PACEMAKER SURGERY 09/17/2018 PAST SURGICAL HISTORY OF 09/16/2012 eye surgery, s/p Plaque OS PRO SMART PILL CAPSULE PROC ([id number]) REMOVE PACEMAKER SYSTEM 09/17/2018 replaced it all RPR UMBILICAL HERNIA < 5 YRS REDUCIBLE 02/17/1999 Hernia repair, umbilical FAMILY HISTORY Problem Relation Age of Onset Heart Mother of CHF at 91 Stroke Mother Hypertension Mother other (Other) Father at 87 of a brain aneurysm Hypertension Brother Stroke Brother Heart Brother No Ocular Disease Other Social History Tobacco Use Smoking status: Former Packs/day: 1.00 Years: 40.00 Pack years: 40.00 Types: Cigarettes Quit date: 03/26/2009 Years since quittin.1 Smokeless tobacco: Never Vaping Use Vaping Use: Never used Substance Use Topics Alcohol use: Not Currently Comment: 1991 Drug use: Not Currently ALLERGIES No Known Allergies Medications: Current Outpatient Medications Medication Sig Dispense Refill hydroCHLOROthiazide (HYDRODIURIL, ESIDRIX) 25 mg tablet Take 1 tablet by mouth once daily. 90 tablet 3 semaglutide (OZEMPIC) 1 mg/dose (4 mg/3 mL) pen injector Inject 1 mg subcutaneously one time a week. 2 Each 4 allopurinol (ZYLOPRIM) 100 mg tablet Take 2 tablets by mouth once daily. 180 tablet 3 DULoxetine (CYMBALTA) 60 mg capsule Take 1 capsule by mouth once daily. 90 capsule 3 lovastatin (MEVACOR) 20 mg tablet Take 1 tablet by mouth daily at bedtime. 90 tablet 1 warfarin (COUMADIN) 5 mg tablet Take 1 tablet by mouth once daily. 30 tablet 11 gabapentin (NEURONTIN) 600 mg tablet Take 1 tablet by mouth daily at bedtime for 180 days. 90 tablet 3 iron polysaccharide complex (FERREX 150) 150 mg iron capsule Take 1 capsule by mouth twice daily. 180 capsule 3 warfarin (COUMADIN) 2.5 mg tablet Take by mouth daily or as directed by your physician 90 tablet 3 insulin glargine (LANTUS SOLOSTAR U-100 INSULIN) 100 unit/mL (3 mL) Inject 36 Units subcutaneously daily at bedtime. 5 Pen 5 magnesium oxide (MAGOX) 400 mg (241.3 mg magnesium) tablet Take 1 tablet by mouth twice daily. 60 tablet 5 potassium chloride (KLOR-CON 10) 10 mEq tablet Take 1 tablet by mouth twice daily. 60 tablet 5 tamsulosin (FLOMAX) 0.4 mg Take 2 capsules by mouth once daily. 180 capsule 3 lisinopril (ZESTRIL, PRINIVIL) 40 mg tablet Take 1 tablet by mouth once daily. 90 tablet 3 metFORMIN ER (GLUCOPHAGE XR) 500 mg 24 hr tablet Take 2 tablets by mouth twice daily. 360 tablet 3 acetaminophen (TYLENOL) 500 mg tablet Take 500 mg by mouth as needed. metoprolol tartrate, short acting, (LOPRESSOR) 100 mg tablet Take 1 tablet by mouth twice daily. 180 tablet 3 amLODIPine (NORVASC) 5 mg tablet Take 1 tablet by mouth once daily. 90 tablet 3 ipratropium/albuterol sulfate (COMBIVENT INHALATION) Inhale as instructed. 1 puff four times a day as needed LILO PEN NEEDLE 32 gauge x 5/32 ndle USE TWICE DAILY WITH INSULIN DOSE 200 Each 3 Blood Sugar Diagnostic, Drum (ACCU-CHEK COMPACT TEST) strp Test blood sugar(s) 4 times daily. Dx: DM 250 Insulin: Yes 51 Strip 11 Lancets (ACCU-CHEK SOFTCLIX LANCETS) Misc lancets three times daily as needed. Dx. 250.00 100 Each 11 Current Facility-Administered Medications Medication Dose Route Frequency Provider Last Rate Last Admin perflutren lipid microspheres 1.3 mL in NaCl (PF) 0.9% 10 mL injection (DEFINITY) INTRAVENOUS DIRECTED PRN Christoph Chavis MD sodium chloride 0.9 % (flush) 10 mL (BD POSIFLUSH) 10 mL INTRAVENOUS DIRECTED PRN Christoph Chavis MD cyanocobalamin 1,000 mcg injection 1,000 mcg INTRAMUSCULAR q 4 WEEKS Dee Ashley MD Review of Systems Constitutional: Negative for chills, diaphoresis, fever, malaise/fatigue and weight loss. HENT: Negative for congestion, ear discharge, ear pain, hearing loss, nosebleeds, sinus pain, sore throat and tinnitus. Eyes: Negative for blurred vision, double vision, photophobia, pain, discharge and redness. Respiratory: Negative for cough, hemoptysis, sputum production, shortness of breath, wheezing and stridor. Cardiovascular: Negative for chest pain, palpitations, orthopnea, claudication, leg swelling and PND. Gastrointestinal: Negative for abdominal pain, blood in stool, constipation, diarrhea, heartburn, melena, nausea and vomiting. Genitourinary: Negative for dysuria, flank pain, frequency, hematuria and urgency. Musculoskeletal: Negative for back pain, falls, joint pain, myalgias and neck pain. Skin: Negative for itching and rash. Neurological: Negative for dizziness, tingling, tremors, sensory change, speech change, focal weakness, seizures, loss of consciousness, weakness and headaches. Endo/Heme/Allergies: Negative for environmental allergies and polydipsia. Does not bruise/bleed easily. Psychiatric/Behavioral: Negative for depression, hallucinations, memory loss, substance abuse and suicidal ideas. The patient is not nervous/anxious and does not have insomnia. Physical Examination: Vitals:BP 128/70 Pulse 80 Wt 247 lb (112.0kg) BP w/Orthostatic Vitals Date and Time Orthostatic BP Orthostatic Pulse BP Pulse BP Position BP Site BP Cuff Size 05/01/22 1351 -- -- 128/70 80 Sitting Left Arm Large Adult Last 2 Encounter Wt Readings: Date: Wt: 05/01/2022 112 kg (247 lb) 02/20/2022 110.2 kg (243 lb) Physical Exam Constitutional: General: He is not in acute distress. Appearance: He is not diaphoretic. HENT: Head: Normocephalic and atraumatic. Right Ear: External ear normal. Left Ear: External ear normal. Nose: Nose normal. Mouth/Throat: Pharynx: Oropharynx is clear. Eyes: General: Right eye: No discharge. Left eye: No discharge. Conjunctiva/sclera: Conjunctivae normal. Pupils: Pupils are equal, round, and reactive to light. Cardiovascular: Rate and Rhythm: Normal rate and regular rhythm. Heart sounds: Normal heart sounds, S1 normal and S2 normal. No murmur heard. No friction rub. No gallop. No S3 or S4 sounds. Pulmonary: Effort: Pulmonary effort is normal. No respiratory distress. Breath sounds: Normal breath sounds. No wheezing or rales. Chest: Chest wall: No tenderness. Musculoskeletal: General: Normal range of motion. Cervical back: Normal range of motion and neck supple. Skin: General: Skin is warm and dry. Neurological: Mental Status: He is alert and oriented to person, place, and time. Psychiatric: Mood and Affect: Mood normal. Behavior: Behavior normal. Thought Content: Thought content normal. Judgment: Judgment normal. Pertinent Labs: CBC: Hemoglobin (g/dL) Date Value 03/07/2022 9.9 10/24/2021 9.2 Hematocrit (%) Date Value 03/07/2022 31.1 10/24/2021 30.9 WBC (k/uL) Date Value 03/07/2022 5.71 10/24/2021 4.00 Platelet Count (k/uL) Date Value 03/07/2022 117 10/24/2021 105 BMP: Glucose (mg/dL) Date Value 09/26/2021 146 Potassium (mmol/L) Date Value 09/26/2021 3.6 Sodium (mmol/L) Date Value 09/26/2021 136 Chloride (mmol/L) Date Value 09/26/2021 98 CO2 (mmol/L) Date Value 09/26/2021 22 Creatinine (mg/dL) Date Value 09/26/2021 1.24 BUN (mg/dL) Date Value 09/26/2021 12 Anion Gap (mmol/L) Date Value 09/26/2021 16 Calcium (mg/dL) Date Value 09/26/2021 9.2 INR: Lipid Profile: Cholesterol, Total Date Value Ref Range Status 02/16/2022 128 <200 mg/dL Final Comment: <200 mg/dL, Desirable 200-239 mg/dL, Borderline high >239 mg/dL, High HDL Cholesterol Date Value Ref Range Status 02/16/2022 27 (L) >39 mg/dL Final Comment: 40-59 mg/dL, Acceptable >59 mg/dL, High: Negative risk factor for coronary heart disease <40 mg/dL, Low: Positive risk factor for coronary heart disease LDL Cholesterol Date Value Ref Range Status 02/16/2022 68 <100 mg/dL Final Comment: <100 mg/dL, Optimal 100-129 mg/dL, Near optimal/above optimal 130-159 mg/dL, Borderline high 160-189 mg/dL, High >189 mg/dL, Very high Secondary prevention optimal LDL Cholesterol levels are recommended to be < 70 mg/dL Triglyceride Date Value Ref Range Status 02/16/2022 163 (H) <150 mg/dL Final Comment: <150 mg/dL, Normal 150-199 mg/dL, Borderline high 200-499 mg/dL, High >499 mg/dL, Very high Hemoglobin A1C: No results found for: HGBA1C TSH: No results found for: TSHREFL Prior Cardiac Testing none Assessment and Plan: 72 years old ICD pacemaker inserted in 2011 doing well from the cardiac point of view recent echo shows 2020 normal left ventricular function Currently in sinus rhythm Continue same current medical therapy Follow-up in 6 Follow up plannin months Electronically signed by Keyshawn Ordonez MD on May 01, 2022, 2:46 PM The above note was partially created using a dictation recognition software. A reasonable attempt has been made to correct any errors. documented in this encounterPromedica [facility]08-08-2022 Miscellaneous Notes* Telephone Encounter - Olga Mckeon - 04/17/2022 9:01 AM EDT Patient electronically sent a request for the following prescription(s) Pending Prescriptions Disp Refills HYDROCHLOROTHIAZIDE 25 MG TABLET 90 tablet 0 Sig: Take 1 tablet by mouth once daily. FELIPE: No Patient aware RX will be sent to pharmacy. No need to notify patient. Last Office Visit: 02/20/2022 with PCP Next Office Visit: 05/23/2022 with PCP Please review. Olga Mckeon documented in this encounterPromedica Bay [facility]08-05-2022 Miscellaneous Notes* Telephone Encounter - Freda Tao LPN - 04/14/2022 11:01 AM EDT Patient has been identified by name and date of : Yes Patient phones for refill(s): Pending Prescriptions Disp Refills OZEMPIC 1 MG/DOSE (4 MG/3 ML) SUBCUTANEOUS PEN INJECTOR 2 Each 4 Sig: Inject 1 mg subcutaneously one time a week. FELIPE: No Date of last office visit in primary care: 02/20/2022 Last 2 Encounter Wt Readings: Date: Wt: 02/20/2022 110.2 kg (243 lb) 01/27/2022 109.2 kg (240 lb 12.8 oz) Previous labs/tests for medication: Diabetes: Hemoglobin A1C (%) Date Value 01/31/2022 5.3 08/08/2021 8.2 05/04/2021 9.1 Hemoglobin A1C (POCT) (%) Date Value 10/10/2021 4.8 Please advise. Thank you. Freda Tao LPN documented in this encounterPromedica [facility]07-27-2022 Miscellaneous Notes* Telephone Encounter - Shelia Charles Ma - 04/05/2022 4:27 PM EDT Patient notified. * Telephone Encounter - Lino Bhandari APRN.CNP - 04/05/2022 4:05 PM EDT Have patient take 5mg daily and recheck INR in 2 weeks. Thank you Lino Bhandari APRN.CNP * Telephone Encounter - Shelia Charles Ma - 04/05/2022 2:25 PM EDT Patient taking 5mg Sunday through Sunday and taking 2.5mg on Sunday. Patient denies any changes in medications or diet. Please advise * Telephone Encounter - Lino Bhandari APRN.CNP - 04/05/2022 2:01 PM EDT Please verify current dosage of coumadin, that patient has been taking consistently every day, and ask if there has been any new medication or diet changes. Thank you Lino Bhandari APRN.CNP documented in this encounterPromedica [facility]06-29-2022 Miscellaneous Notes* Telephone Encounter - Lino Bhandari APRN.CNP - 03/08/2022 12:18 PM EDT Noted. Lino Bhandari APRN.CNP * Telephone Encounter - Saud Blas Ma - 03/08/2022 9:17 AM EDT Pt notified, verbalized understanding. Tracker up to date. Offered patient an appointment with coumadin clinic. He states that he prefers to walk into the lab@ [place]. Saud Blas Ma * Telephone Encounter - Lino Bhandari APRN.CNP - 03/08/2022 8:31 AM EDT Please let patient know INR is therapeutic, continue with current dose, and recheck in 4 weeks. Whyis patient no longer scheduling with coumadin clinic? Take care Lino Bhandari APRN.CNP documented in this encounterPromedica Bay [facility]06-13-2022 History of Present illness Narrative* Dee Ashley MD - 02/20/2022 2:16 PM EDT Reason for Visit Patient presents with: Established Patient: 3 month f ollow up Yazan Nolasco is a 71 year old male who presents here today for Above Complaints.. Health Maintenance BP CONTROLLED (<130/80) HEPATITIS B(1 of 3 - Risk 3-dose series) SHINGRIX VACCINE(1 of 2) ADVANCE DIRECTIVE DISCUSSION DTAP,TDAP,TD(3 - Td or Tdap) HPI Malignant Melanoma of eye in 2011, recently seen Dr Bryan and follows up with Dr Joshi.... he went to see Dr Bryan recently.. . He feels better but he cannot expect too much. Vision is fine, patient can see her face. Patient notes they are surprised at the last hba1c they had. inr is good at 2.1 Lipids that was done recently is normal. Hba1c is 5.3 but he is anemic at 10.7. so it may actually be lesser than that with hba1c at patienthad some blood work in the past, he takes some iron capsules. He really likes the ozempic, his appetite is good and he is good. Anxiety depression is controlled on cymbalta. No recent gout issues needs refills of the allopurinol Patient has diarrhea every day, he is used to it and it does not bother him much at all. Patient notes he was a pretty wild child till he was 40. Patient lost around 35 to 40 pounds. Patient had a little snack in the evening. No problem-specific Assessment & Plan notes found for this encounter. 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 Diabetes mellitus (HCC) Diarrhea Dual implantable cardioverter-defibrillator in situ Dyslipidemia Esophageal reflux Ex-smoker Mononeuritis of unspecified site Obesity, unspecified Other chronic nonalcoholic liver disease Personal history of colonic polyps 03/20/2005 hyperplastic polyps Unspecified essential hypertension PAST SURGICAL HISTORY Procedure Laterality Date BSCAN OS (LEFT EYE) Left COLONOSCOPY FLX DX W/COLLJ SPEC WHEN PFRMD 03/20/2005 Colonoscopy COLONOSCOPY FLX DX W/COLLJ SPEC WHEN PFRMD 06/15/15 Colonoscopy [facility] out pt ENDOSCOPY PROC 08/2018 ESOPHAGOGASTRODUODENOSCOPY TRANSORAL DIAGNOSTIC 06/15/15 EGD [facility] out pt EXCISION PILONIDAL CYST/SINUS SIMPLE 01/19/2003 Excision pilonidal cyst PACEMAKER SURGERY 03-11-2012 pacer/defib PACEMAKER SURGERY 09/17/2018 PAST SURGICAL HISTORY OF 09/16/2012 eye surgery, s/p Plaque OS PRO SMART PILL CAPSULE PROC ([id number]) REMOVE PACEMAKER SYSTEM 09/17/2018 replaced it all RPR UMBILICAL HERNIA < 5 YRS REDUCIBLE 02/17/1999 Hernia repair, umbilical FAMILY HISTORY Problem Relation Age of Onset Heart Mother of CHF at 91 Stroke Mother Hypertension Mother other (Other) Father at 87 of a brain aneurysm Hypertension Brother Stroke Brother Heart Brother No Ocular Disease Other Social History Tobacco Use Smoking status: Former Smoker Packs/day: 1.00 Years: 40.00 Pack years: 40.00 Types: Cigarettes Quit date: 03/26/2009 Years since quittin.9 Smokeless tobacco: Never Used Vaping Use Vaping Use: Never used Substance Use Topics Alcohol use: Not Currently Comment: 1991 Drug use: Not Currently Past medical history, appointments, medications, allergies reviewed. Pertinent Lab/Diagnostic Studies are reviewed and discussed today Current Outpatient Medications: lovastatin (MEVACOR) 20 mg tablet warfarin (COUMADIN) 5 mg tablet hydroCHLOROthiazide (HYDRODIURIL, ESIDRIX) 25 mg tablet gabapentin (NEURONTIN) 600 mg tablet iron polysaccharide complex (FERREX 150) 150 mg iron capsule warfarin (COUMADIN) 2.5 mg tablet insulin glargine (LANTUS SOLOSTAR U-100 INSULIN) 100 unit/mL (3 mL) magnesium oxide (MAGOX) 400 mg (241.3 mg magnesium) tablet potassium chloride (KLOR-CON 10) 10 mEq tablet semaglutide (OZEMPIC) 1 mg/dose (4 mg/3 mL) pen injector tamsulosin (FLOMAX) 0.4 mg lisinopril (ZESTRIL, PRINIVIL) 40 mg tablet metFORMIN ER (GLUCOPHAGE XR) 500 mg 24 hr tablet acetaminophen (TYLENOL) 500 mg tablet metoprolol tartrate, short acting, (LOPRESSOR) 100 mg tablet amLODIPine (NORVASC) 5 mg tablet allopurinol (ZYLOPRIM) 100 mg tablet ipratropium/albuterol sulfate (COMBIVENT INHALATION) DULoxetine (CYMBALTA) 60 mg capsule LILO PEN NEEDLE 32 gauge x 5/32 ndle Blood Sugar Diagnostic, Drum (ACCU-CHEK COMPACT TEST) strp Lancets (ACCU-CHEK SOFTCLIX LANCETS) Misc lancets Current Facility-Administered Medications: perflutren lipid microspheres 1.3 mL in NaCl (PF) 0.9% 10 mL injection (DEFINITY) sodium chloride 0.9 % (flush) 10 mL (BD POSIFLUSH) cyanocobalamin 1,000 mcg injection Review of Systems CONSTITUTIONAL: No fevers, chills night sweats, unintended weight loss CARDIOVASCULAR: No chest pain, dyspnea, palpitations, orthopnea, PND, ankle edema. PULM: No dyspnea, unexplained cough. GI: No dysphagia/odynophagia, problematic reflux, constipation, diarrhea, changes in stool habits, hematochezia, melena. : No new urinary complaints, including dysuria, gross hematuria or pyuria. NEURO: No new balance problems, peripheral weakness/paresthesias or numbness of concern. Physical Exam BP 110/62 (BP Site: Left Arm, BP Position: Sitting, BP Cuff Size: Large Adult) Pulse 93 Temp 36.2 C (97.2 F) Resp 16 Ht 175.3 cm (5' 9) Wt 110.2 kg (243 lb) SpO2 95% BMI 35.88 kg/m General appearance: Well appearing, alert, in no acute distress, well nourished. Skin: Skin color, texture, turgor normal, no suspicious rashes or lesions Head: Normocephalic, no masses, lesions, tenderness or abnormalities Eyes: Anicteric sclera. Pupils are equally round and reactive to light. Extraocular movements are intact. Lungs: Lungs clear to auscultation. No wheezing, rhonchi, rales Heart: RRR without murmur, gallop, or rubs. Extremities: No deformities, edema, skin discoloration, clubbing or cyanosis. Good capillary refill. ASSESSMENT/PLAN: 1. Type 2 diabetes mellitus with diabetic mononeuropathy, with long-term current use of insulin (HCC) - ICD9: 250.60, 355.9, V58.67, ICD10: E11.41, Z79.4 (primary diagnosis) Controlled. - Continue current medications 2. Essential hypertension - ICD9: 401.9, ICD10: I10 - good control - Recommended regular aerobic exercise. - Recommend home blood pressure monitoring, to bring results in on next visit - Goal of BP <130/80 3. Mixed hyperlipidemia - ICD9: 272.2, ICD10: E78.2 - good control - Continue current medication. 4. Pure hyperglyceridemia - ICD9: 272.1, ICD10: E78.1 - good control - Continue current medication. Dee Ashley MD documented in this encounterPromedica [facility]05-27-2022 Miscellaneous Notes* Telephone Encounter - Shelia Charles Ma - 02/03/2022 4:26 PM EDT Patient notified. * Telephone Encounter - Lino Bhandari APRN.OREN - 02/03/2022 3:43 PM EDT Have patient hold todays dose. And restart at previous dose but only half a tablet on sundays. Recheck INR in 1 week. Thank you Lino Bhandari APRN.CNP * Telephone Encounter - Shelia Charles Ma - 02/03/2022 11:50 AM EDT Patient verifies taking 5 mg daily of coumadin. Has not taken dosing yet today. Denies any missed doses or change in diet, bruising or any other exceptions. * Telephone Encounter - Lino Bhandari APRN.CNP - 02/03/2022 8:02 AM EDT Please let patient know his Pt/INR is too high at 3.5 Has there been any diet changes or medications changes? Please verify current coumadin dosing. Last we had on record was 3 months ago 5mg daily except 7.5mg on Sunday Thank you Lino Bhandari APRN.OREN documented in this encounterPromedica Bay [facility]05-24-2022 Miscellaneous Notes* Telephone Encounter - Eduardo Bhardwaj RN - 01/31/2022 1:18 PM EDT Pt called in and reported he was called and told he needed to get his PT/INR drawn and that he was late getting it done. He came in and had other blood work drawn, but the couldn't find the orders for that specifically. Called [facility] and let them know the orders were in and good until 11/02. They said when the [facility] update went through they sometimes have had problems with standing labs. They are going to print them out and the Pt will come back in tomorrow and get them drawn. documented in this encounterPromedica Bay Park Hospital05-20-2022 History of Present illness Narrative* Christoph Chavis MD - 01/27/2022 2:17 PM EDT HISTORY OF PRESENT ILLNESS The above relevant present and past medical Hx was verified and the exam findings were confirmed with additional exam findings added/clarified and/or corrected in my exam below. Additional Hx/summaryis as follows: F/U for HTN, parox VT, s/p ICD, and PAF. He reports no arrhythmia Sx. There has been no syncope, near-syncope, palpitations, dizziness or light-headedness. He had a mechanical fall tripping over a cord, and has a bruise on his L side. He has no PND/Orthopnea, no resting SOB. He gets VILLEGAS with moderate exertion. He has no LE edema. No ICD shocks. Cardiac meds are: warfarin, amlodipine, HCTZ, an CALVIN-I, metoprolol, a statin. INR is managed by [facility] and is checked monthly. No problems with warfarin. Last echo was in 2019 and showed normal LVEF. Meds and allergies were reviewed/updated in [facility]. General - Well-developed, well-nourished, no acute distress. HEENT - Normocephalic, atraumatic. Neck -Supple, no JVD, no bruits, no thyromegaly. Heart - RRR, no murmur. Lungs - CTA bilaterally. Device site - Well healed, L upper chest. Abdomen - Positive bowel sounds, no bruit, no organomegaly, no masses. Back - Non-tender. Extremities - 2-3+ L LE edema with ecchymosis. Normal pulses. Neuro - Alert and oriented to person, place, time. ECG today in the office shows: NSR 86 178/94/459 PVCs with RBBB, L sup axis in a trigeminal pattern. Interrogation of the device today shows normal device pacing and sensing function with battery status OK. Impression and plan dictated separately; to be transcribed. MD PURVI Duran - MD Keyshawn Rutherford MD This clinical note has been produced using speech recognition software and may contain errors related to that system including grammar, punctuation, spelling, gender and words and phrases that may beinappropriate. * Elena Dietrich RN - 01/27/2022 1:30 PM EDT Images from the original note were not included. [facility] Department of Cardiovascular Medicine SECTION OF CARDIAC PACING and ELECTROPHYSIOLOGY OUTPATIENT VISIT DATE January 27, 2022 OUTPATIENT VISIT TYPE ESTABLISHED PRIMARY CARE PHYSICIAN: Dee Ashley [address] [place] [address] REFERRING PHYSICIAN: SELF NURSING INTAKE HISTORY: Mr. Nolasco is a 71 year old male who presents today for follow-up visit for atrial fibrillation and device management. He is a former patient of Dr. Paredes and was last seen in office by Freda Caicedo CNP on 04/15/20. He follows with [facility] community administrator Dr. Ordonez in [place]. Past medical history of CAD (50% LAD 2011), HTN, HLD, DM, Obesity, [place] on CPAP, PSVT, PAF, former smoker, and NSVT s/p ICD for primary prophylaxis 2011 and s/p generator change 2018. His ICD was implanted for primary prevention in 2011 due to exercise induced polymorphic VT and pre-syncope. EF has been normal. He has not had any shocks from his device. Device remotes have shown short episodes of AT with variable conduction, and occasional NSVT detection (10/31/21). Device check today showed brief (1-3 seconds) of AT, PVC burden measures 1.3 million. He feels well overall. He has occasional fatigue due to recent anemia and follows with hematology. He sometimes has shortness of breath with exertion at baseline. He uses CPAP nightly. He does not exercise. Patient denies chest pain, orthopnea, cough, edema, palpitations, PND, dizziness, lightheadedness, nearsyncope, or syncope. [id number] score: 4 (hypertension, diabetes, vascular disease, age 65-74) - on warfarin (INR's per coumadin clinic [place]) DUAL CHAMBER ICD EVALUATION PRESENTS FOR: He is a former Dr. Paredes patient is re-establishing care with Dr. Chavis. PRESENTING EGM: /VS UNDERLYING RHYTHM: sinus with PVCs BATTERY STATUS: Estimated time remaining to AMPARO is 10.5 years. COUNTERS SINCE *04/15/20*: ARRHYTHMIAS: There have been 3 ATR episodes with EGMs showing brief (1-3 seconds) of AT which have occurred since the last remote transmission on 01/12/22. Anticoagulants listed: warfarin LEAD MEASUREMENTS: Capture and sensing are appropriate. RV sensing today measures 4.8 mV, per trends measurments range from 4- 12 mV. The pacing outputs maintain safety margin. Review of the lead impedance trends are normal. IMPLANT SITE/ SYMPTOMS: The incision and pocket are pain-free, well healed and without signs of erosion or infection. No arm swelling, syncope, pre-syncope or device related pocket stimulation. 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 Diabetes mellitus (HCC) Diarrhea Dual implantable cardioverter-defibrillator in situ Dyslipidemia Esophageal reflux Ex-smoker Mononeuritis of unspecified site Obesity, unspecified Other chronic nonalcoholic liver disease Personal history of colonic polyps 03/20/2005 hyperplastic polyps Unspecified essential hypertension PAST SURGICAL HISTORY Procedure Laterality Date BSCAN OS (LEFT EYE) Left COLONOSCOPY FLX DX W/COLLJ SPEC WHEN PFRMD 03/20/2005 Colonoscopy COLONOSCOPY FLX DX W/COLLJ SPEC WHEN PFRMD 06/15/15 Colonoscopy [facility] out pt ENDOSCOPY PROC 08/2018 ESOPHAGOGASTRODUODENOSCOPY TRANSORAL DIAGNOSTIC 06/15/15 EGD [facility] out pt EXCISION PILONIDAL CYST/SINUS SIMPLE 01/19/2003 Excision pilonidal cyst PACEMAKER SURGERY 03-11-2012 pacer/defib PACEMAKER SURGERY 09/17/2018 PAST SURGICAL HISTORY OF 09/16/2012 eye surgery, s/p Plaque OS PRO SMART PILL CAPSULE PROC ([id number]) REMOVE PACEMAKER SYSTEM 09/17/2018 replaced it all RPR UMBILICAL HERNIA < 5 YRS REDUCIBLE 02/17/1999 Hernia repair, umbilical SOCIAL HISTORY Social History Tobacco Use Smoking status: Former Smoker Packs/day: 1.00 Years: 40.00 Pack years: 40.00 Types: Cigarettes Quit date: 03/26/2009 Years since quittin.8 Smokeless tobacco: Never Used Vaping Use Vaping Use: Never used Substance Use Topics Alcohol use: Not Currently Comment: recovering 1991 Drug use: Not Currently FAMILY HISTORY Problem Relation Age of Onset Heart Mother of CHF at 91 Stroke Mother Hypertension Mother other (Other) Father at 87 of a brain aneurysm Hypertension Brother Stroke Brother Heart Brother No Ocular Disease Other ALLERGIES: ALLERGIES No Known Allergies MEDICATIONS: hydroCHLOROthiazide (HYDRODIURIL, ESIDRIX) 25 mg tablet Take 1 tablet by mouth once daily gabapentin (NEURONTIN) 600 mg tablet Take 1 tablet by mouth daily at bedtime for 180 days. iron polysaccharide complex (FERREX 150) 150 mg iron capsule Take 1 capsule by mouth twice daily. warfarin (COUMADIN) 2.5 mg tablet Take by mouth daily or as directed by your physician insulin glargine (LANTUS SOLOSTAR U-100 INSULIN) 100 unit/mL (3 mL) Inject 36 Units subcutaneously daily at bedtime. magnesium oxide (MAGOX) 400 mg (241.3 mg magnesium) tablet Take 1 tablet by mouth twice daily. potassium chloride (KLOR-CON 10) 10 mEq tablet Take 1 tablet by mouth twice daily. semaglutide (OZEMPIC) 1 mg/dose (4 mg/3 mL) pen injector Inject 1 mg subcutaneously one time a week. tamsulosin (FLOMAX) 0.4 mg Take 2 capsules by mouth once daily. lisinopril (ZESTRIL, PRINIVIL) 40 mg tablet Take 1 tablet by mouth once daily. metFORMIN ER (GLUCOPHAGE XR) 500 mg 24 hr tablet Take 2 tablets by mouth twice daily. acetaminophen (TYLENOL) 500 mg tablet Take 500 mg by mouth as needed. metoprolol tartrate, short acting, (LOPRESSOR) 100 mg tablet Take 1 tablet by mouth twice daily. amLODIPine (NORVASC) 5 mg tablet Take 1 tablet by mouth once daily. allopurinol (ZYLOPRIM) 100 mg tablet Take 2 tablets by mouth once daily. ipratropium/albuterol sulfate (COMBIVENT INHALATION) Inhale as instructed. 1 puff four times a day as needed DULoxetine (CYMBALTA) 60 mg capsule Take 1 capsule by mouth once daily. warfarin (COUMADIN) 5 mg tablet Take 1 tablet by mouth once daily. lovastatin (MEVACOR) 20 mg tablet Take 1 tablet by mouth daily at bedtime. LILO PEN NEEDLE 32 gauge x 5/32 ndle USE TWICE DAILY WITH INSULIN DOSE Blood Sugar Diagnostic, Drum (ACCU-CHEK COMPACT TEST) strp Test blood sugar(s) 4 times daily. Dx: DM 250 Insulin: Yes Lancets (ACCU-CHEK SOFTCLIX LANCETS) Misc lancets three times daily as needed. Dx. 250.00 Elena Dietrich RN PHYSICAL EXAMINATION: BP 145/78 Pulse 86 Ht 175.3 cm (5' 9) Wt 109.2 kg (240 lb 12.8 oz) BMI 35.56 kg/m Last EKG Result Conclusion ECG COMPLETE Collected: 01/27/2022 12:22 PM (Preliminary result) Impression: SINUS RHYTHM WITH FREQUENT PREMATURE VENTRICULAR COMPLEXES NONSPECIFIC T WAVE ABNORMALITY ABNORMAL ECG Complete Results Echo 05/05/20: - The left ventricle is normal in size. There is mild concentric left ventricular hypertrophy. Left ventricular systolic function is normal. EF = 66 5% (2D biplane) Definity contrast used for endocardial border detection. [id number] variability of biventricular function setting of frequent PVCs. - The right ventricle is normal in size. Right ventricular systolic function is normal. - Estimated right ventricular systolic pressure is not reported due to an insufficient tricuspid regurgitation signal. Estimated right atrial pressure is 3 mmHg based on IVC assessment. - There are no significant valvular abnormalities. - Exam was compared with the prior echocardiographic exam performed on 11/08/2015. Similar findings. documented in this encounterProm[facility] Miscellaneous Notes* Telephone Encounter - Olga Mckeon - 01/26/2022 11:24 AM EDT Patient electronically sent a request for the following prescription(s) Pending Prescriptions Disp Refills LOVASTATIN 20 MG TABLET 90 tablet 1 Sig: Take 1 tablet by mouth daily at bedtime. FELIPE: No Patient aware RX will be sent to pharmacy. No need to notify patient. Last Office Visit: 11/21/2021 Next Office Visit: 02/20/2022 Please review. Olga Mckeon documented in this encounterPromedica [facility]05-13-2022 Miscellaneous Notes* Telephone Encounter - Ellyn Valenzuela MA - 01/20/2022 10:10 AM EDT NOV 02/20/22 YURIDIA 11/21/21 Patient electronically sent a request for the following prescription(s) Pending Prescriptions Disp Refills HYDROCHLOROTHIAZIDE 25 MG TABLET 90 tablet 0 Sig: Take 1 tablet by mouth once daily FELIPE: Yes Patient aware RX will be sent to pharmacy. No need to notify patient. Please review. Ellyn Valenzuela MA documented in this encounterPromed[facility]12-29-2021 History of Present illness Narrative* Rafaela Villalba RT(R) - 09/07/2021 1:00 PM EST Radiology Service Progress Note PATIENT NAME: Yazan Nolasco DATE OF SERVICE: September 07, 2021 TIME: 12:46 PM PATIENT IDENTITY VERIFICATION COMPLETED USING TWO (2) IDENTIFIERS: Name and Date of confirmedby patient verbally. FALL SCREENING: Has the patient had 2 falls in the last year or 1 fall with injury or currently using an Ambulatory Assistive Device (Walker, Cane, Wheelchair, Crutches, etc.)? 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 Takes his medication regularly though. He does some stationary bike riding recently. 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 Cardiac MRI shows normal LV size, shape, and function with mild myocardial fibrosis at the basal and mid inferoseptum at the RV insertion point. Carvedilol dose uptitrated to 37.5mg BID while Clonidine was reduced to 0.1mg BID & Atenolol stopped. Dual chamber ICD was implanted on 03/11/2012 for primary prevention. Post- implantation checks satisfactory. Being discharged today. F/u with device clinic in 6 weeks CAD (coronary artery disease), [employer] coronary a rtery 03/06/2012 08/09/2021 Overview: Non obstructive single vessel ds Mid LAD 50% Ventricular tachycardia 02/28/2012 12/04/19 18 Overview: Exercise induced symptoms Reproduced during stress test Left heart catheterization on 03/01/2012 showed non-obstructive single-vessel CAD [50% mid-LAD]. Cardiac MRI shows normal EF with mild fibrosis. Carvedilol uptitrated. S/p dual chamber ICD. PMR (polymyalgia rheumatica) 02/01/201205/2017 Overview: On Prednisone 10mg/d Ct home dose Enthesopathy of unspecified site 12/21/2010 08/09/2021 Type 2 diabetes mellitus 12/01/2010 014 Overview: On Glargine 14 units, Glimepiride & Metformin No recent HbA1c Ct home regimen Accucheck AC/HS HbA1c 7 Somnolence 06/09/2009 07/05/2015 DIABETES MELLITUS ADULT ONSET 07/09/2007 Diabetic neuropathy, type II diabetes mellitus 03/03/2015 Overview: On Gabapentin Tobacco use disorder 11/10/2016 Overview: In remission Class 3 severe obesity with body mass index (BMI) of 40.0 to 44.9 in adult 10/06/2021 Last Assessment & Plan: He is very active the whole time and tries his best to eat well. On the downward trend to weight loss HTN (hypertension) 07/19/2017 Overview: On Clonidine,Atenolol, Lisinopril, Losartan Clonidine tapered & Atenolol stopped. Carvedilol up titrated to 50mg bid; decreased to 37.5mg bid due to relatively low systolic BP 97 with dizziness [for VT] Last Assessment & Plan: BP is well controlled on current regimen of medicines which is tolerated well. 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 Takes his medication regularly though. He does some stationary bike riding recently. 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 Cardiac MRI shows normal LV size, shape, and function with mild myocardial fibrosis at the basal and mid inferoseptum at the RV insertion point. Carvedilol dose uptitrated to 37.5mg BID while Clonidine was reduced to 0.1mg BID & Atenolol stopped. Dual chamber ICD was implanted on 03/11/2012 for primary prevention. Post- implantation checks satisfactory. Being discharged today. F/u with device clinic in 6 weeks CAD (coronary artery disease), [employer] coronary a rtery 03/06/2012 08/09/2021 Overview: Non obstructive single vessel ds Mid LAD 50% Ventricular tachycardia 02/28/2012 12/04/19 18 Overview: Exercise induced symptoms Reproduced during stress test Left heart catheterization on 03/01/2012 showed non-obstructive single-vessel CAD [50% mid-LAD]. Cardiac MRI shows normal EF with mild fibrosis. Carvedilol uptitrated. S/p dual chamber ICD. PMR (polymyalgia rheumatica) 02/01/201205/2017 Overview: On Prednisone 10mg/d Ct home dose Enthesopathy of unspecified site 12/21/2010 08/09/2021 Type 2 diabetes mellitus 12/01/2010 014 Overview: On Glargine 14 units, Glimepiride & Metformin No recent HbA1c Ct home regimen Accucheck AC/HS HbA1c 7 Somnolence 06/09/2009 07/05/2015 DIABETES MELLITUS ADULT ONSET 07/09/2007 Diabetic neuropathy, type II diabetes mellitus 03/03/2015 Overview: On Gabapentin Tobacco use disorder 11/10/2016 Overview: In remission Class 3 severe obesity with body mass index (BMI) of 40.0 to 44.9 in adult 10/06/2021 Last Assessment & Plan: He is very active the whole time and tries his best to eat well. On the downward trend to weight loss HTN (hypertension) 07/19/2017 Overview: On Clonidine,Atenolol, Lisinopril, Losartan Clonidine tapered & Atenolol stopped. Carvedilol up titrated to 50mg bid; decreased to 37.5mg bid due to relatively low systolic BP 97 with dizziness [for VT] Last Assessment & Plan: BP is well controlled on current regimen of medicines which is tolerated well. 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 Takes his medication regularly though. He does some stationary bike riding recently. 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 Cardiac MRI shows normal LV size, shape, and function with mild myocardial fibrosis at the basal and mid inferoseptum at the RV insertion point. Carvedilol dose uptitrated to 37.5mg BID while Clonidine was reduced to 0.1mg BID & Atenolol stopped. Dual chamber ICD was implanted on 03/11/2012 for primary prevention. Post- implantation checks satisfactory. Being discharged today. F/u with device clinic in 6 weeks CAD (coronary artery disease), [employer] coronary a rtery 03/06/2012 08/09/2021 Overview: Non obstructive single vessel ds Mid LAD 50% Ventricular tachycardia 02/28/2012 12/04/19 18 Overview: Exercise induced symptoms Reproduced during stress test Left heart catheterization on 03/01/2012 showed non-obstructive single-vessel CAD [50% mid-LAD]. Cardiac MRI shows normal EF with mild fibrosis. Carvedilol uptitrated. S/p dual chamber ICD. PMR (polymyalgia rheumatica) 02/01/201205/2017 Overview: On Prednisone 10mg/d Ct home dose Enthesopathy of unspecified site 12/21/2010 08/09/2021 Type 2 diabetes mellitus 12/01/2010 014 Overview: On Glargine 14 units, Glimepiride & Metformin No recent HbA1c Ct home regimen Accucheck AC/HS HbA1c 7 Somnolence 06/09/2009 07/05/2015 DIABETES MELLITUS ADULT ONSET 07/09/2007 Diabetic neuropathy, type II diabetes mellitus 03/03/2015 Overview: On Gabapentin Tobacco use disorder 11/10/2016 Overview: In remission Class 3 severe obesity with body mass index (BMI) of 40.0 to 44.9 in adult 10/06/2021 Last Assessment & Plan: He is very active the whole time and tries his best to eat well. On the downward trend to weight loss HTN (hypertension) 07/19/2017 Overview: On Clonidine,Atenolol, Lisinopril, Losartan Clonidine tapered & Atenolol stopped. Carvedilol up titrated to 50mg bid; decreased to 37.5mg bid due to relatively low systolic BP 97 with dizziness [for VT] Last Assessment & Plan: BP is well controlled on current regimen of medicines which is tolerated well. 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 Takes his medication regularly though. He does some stationary bike riding recently. 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 Cardiac MRI shows normal LV size, shape, and function with mild myocardial fibrosis at the basal and mid inferoseptum at the RV insertion point. Carvedilol dose uptitrated to 37.5mg BID while Clonidine was reduced to 0.1mg BID & Atenolol stopped. Dual chamber ICD was implanted on 03/11/2012 for primary prevention. Post- implantation checks satisfactory. Being discharged today. F/u with device clinic in 6 weeks CAD (coronary artery disease), [employer] coronary a rtery 03/06/2012 08/09/2021 Overview: Non obstructive single vessel ds Mid LAD 50% Ventricular tachycardia 02/28/2012 12/04/19 18 Overview: Exercise induced symptoms Reproduced during stress test Left heart catheterization on 03/01/2012 showed non-obstructive single-vessel CAD [50% mid-LAD]. Cardiac MRI shows normal EF with mild fibrosis. Carvedilol uptitrated. S/p dual chamber ICD. PMR (polymyalgia rheumatica) 02/01/201205/2017 Overview: On Prednisone 10mg/d Ct home dose Enthesopathy of unspecified site 12/21/2010 08/09/2021 Type 2 diabetes mellitus 12/01/2010 014 Overview: On Glargine 14 units, Glimepiride & Metformin No recent HbA1c Ct home regimen Accucheck AC/HS HbA1c 7 Somnolence 06/09/2009 07/05/2015 DIABETES MELLITUS ADULT ONSET 07/09/2007 Diabetic neuropathy, type II diabetes mellitus 03/03/2015 Overview: On Gabapentin Tobacco use disorder 11/10/2016 Overview: In remission Class 3 severe obesity with body mass index (BMI) of 40.0 to 44.9 in adult 10/06/2021 Last Assessment & Plan: He is very active the whole time and tries his best to eat well. On the downward trend to weight loss HTN (hypertension) 07/19/2017 Overview: On Clonidine,Atenolol, Lisinopril, Losartan Clonidine tapered & Atenolol stopped. Carvedilol up titrated to 50mg bid; decreased to 37.5mg bid due to relatively low systolic BP 97 with dizziness [for VT] Last Assessment & Plan: BP is well controlled on current regimen of medicines which is tolerated well. 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 Takes his medication regularly though. He does some stationary bike riding recently. 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 Cardiac MRI shows normal LV size, shape, and function with mild myocardial fibrosis at the basal and mid inferoseptum at the RV insertion point. Carvedilol dose uptitrated to 37.5mg BID while Clonidine was reduced to 0.1mg BID & Atenolol stopped. Dual chamber ICD was implanted on 03/11/2012 for primary prevention. Post- implantation checks satisfactory. Being discharged today. F/u with device clinic in 6 weeks CAD (coronary artery disease), [employer] coronary a rtery 03/06/2012 08/09/2021 Overview: Non obstructive single vessel ds Mid LAD 50% Ventricular tachycardia 02/28/2012 12/04/19 18 Overview: Exercise induced symptoms Reproduced during stress test Left heart catheterization on 03/01/2012 showed non-obstructive single-vessel CAD [50% mid-LAD]. Cardiac MRI shows normal EF with mild fibrosis. Carvedilol uptitrated. S/p dual chamber ICD. PMR (polymyalgia rheumatica) 02/01/201205/2017 Overview: On Prednisone 10mg/d Ct home dose Enthesopathy of unspecified site 12/21/2010 08/09/2021 Type 2 diabetes mellitus 12/01/2010 014 Overview: On Glargine 14 units, Glimepiride & Metformin No recent HbA1c Ct home regimen Accucheck AC/HS HbA1c 7 Somnolence 06/09/2009 07/05/2015 DIABETES MELLITUS ADULT ONSET 07/09/2007 Diabetic neuropathy, type II diabetes mellitus 03/03/2015 Overview: On Gabapentin Tobacco use disorder 11/10/2016 Overview: In remission Class 3 severe obesity with body mass index (BMI) of 40.0 to 44.9 in adult 10/06/2021 Last Assessment & Plan: He is very active the whole time and tries his best to eat well. On the downward trend to weight loss HTN (hypertension) 07/19/2017 Overview: On Clonidine,Atenolol, Lisinopril, Losartan Clonidine tapered & Atenolol stopped. Carvedilol up titrated to 50mg bid; decreased to 37.5mg bid due to relatively low systolic BP 97 with dizziness [for VT] Last Assessment & Plan: BP is well controlled on current regimen of medicines which is tolerated well. 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 Takes his medication regularly though. He does some stationary bike riding recently. 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 Cardiac MRI shows normal LV size, shape, and function with mild myocardial fibrosis at the basal and mid inferoseptum at the RV insertion point. Carvedilol dose uptitrated to 37.5mg BID while Clonidine was reduced to 0.1mg BID & Atenolol stopped. Dual chamber ICD was implanted on 03/11/2012 for primary prevention. Post- implantation checks satisfactory. Being discharged today. F/u with device clinic in 6 weeks CAD (coronary artery disease), [employer] coronary a rtery 03/06/2012 08/09/2021 Overview: Non obstructive single vessel ds Mid LAD 50% Ventricular tachycardia 02/28/2012 12/04/19 18 Overview: Exercise induced symptoms Reproduced during stress test Left heart catheterization on 03/01/2012 showed non-obstructive single-vessel CAD [50% mid-LAD]. Cardiac MRI shows normal EF with mild fibrosis. Carvedilol uptitrated. S/p dual chamber ICD. PMR (polymyalgia rheumatica) 02/01/201205/2017 Overview: On Prednisone 10mg/d Ct home dose Enthesopathy of unspecified site 12/21/2010 08/09/2021 Type 2 diabetes mellitus 12/01/2010 014 Overview: On Glargine 14 units, Glimepiride & Metformin No recent HbA1c Ct home regimen Accucheck AC/HS HbA1c 7 Somnolence 06/09/2009 07/05/2015 DIABETES MELLITUS ADULT ONSET 07/09/2007 Diabetic neuropathy, type II diabetes mellitus 03/03/2015 Overview: On Gabapentin Tobacco use disorder 11/10/2016 Overview: In remission Class 3 severe obesity with body mass index (BMI) of 40.0 to 44.9 in adult 10/06/2021 Last Assessment & Plan: He is very active the whole time and tries his best to eat well. On the downward trend to weight loss HTN (hypertension) 07/19/2017 Overview: On Clonidine,Atenolol, Lisinopril, Losartan Clonidine tapered & Atenolol stopped. Carvedilol up titrated to 50mg bid; decreased to 37.5mg bid due to relatively low systolic BP 97 with dizziness [for VT] Last Assessment & Plan: BP is well controlled on current regimen of medicines which is tolerated well. 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 Takes his medication regularly though. He does some stationary bike riding recently. 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 Cardiac MRI shows normal LV size, shape, and function with mild myocardial fibrosis at the basal and mid inferoseptum at the RV insertion point. Carvedilol dose uptitrated to 37.5mg BID while Clonidine was reduced to 0.1mg BID & Atenolol stopped. Dual chamber ICD was implanted on 03/11/2012 for primary prevention. Post- implantation checks satisfactory. Being discharged today. F/u with device clinic in 6 weeks CAD (coronary artery disease), [employer] coronary a rtery 03/06/2012 08/09/2021 Overview: Non obstructive single vessel ds Mid LAD 50% Ventricular tachycardia 02/28/2012 12/04/19 18 Overview: Exercise induced symptoms Reproduced during stress test Left heart catheterization on 03/01/2012 showed non-obstructive single-vessel CAD [50% mid-LAD]. Cardiac MRI shows normal EF with mild fibrosis. Carvedilol uptitrated. S/p dual chamber ICD. PMR (polymyalgia rheumatica) 02/01/201205/2017 Overview: On Prednisone 10mg/d Ct home dose Enthesopathy of unspecified site 12/21/2010 08/09/2021 Type 2 diabetes mellitus 12/01/2010 014 Overview: On Glargine 14 units, Glimepiride & Metformin No recent HbA1c Ct home regimen Accucheck AC/HS HbA1c 7 Somnolence 06/09/2009 07/05/2015 DIABETES MELLITUS ADULT ONSET 07/09/2007 Diabetic neuropathy, type II diabetes mellitus 03/03/2015 Overview: On Gabapentin Tobacco use disorder 11/10/2016 Overview: In remission Class 3 severe obesity with body mass index (BMI) of 40.0 to 44.9 in adult 10/06/2021 Last Assessment & Plan: He is very active the whole time and tries his best to eat well. On the downward trend to weight loss HTN (hypertension) 07/19/2017 Overview: On Clonidine,Atenolol, Lisinopril, Losartan Clonidine tapered & Atenolol stopped. Carvedilol up titrated to 50mg bid; decreased to 37.5mg bid due to relatively low systolic BP 97 with dizziness [for VT] Last Assessment & Plan: BP is well controlled on current regimen of medicines which is tolerated well. 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 Takes his medication regularly though. He does some stationary bike riding recently. 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 Cardiac MRI shows normal LV size, shape, and function with mild myocardial fibrosis at the basal and mid inferoseptum at the RV insertion point. Carvedilol dose uptitrated to 37.5mg BID while Clonidine was reduced to 0.1mg BID & Atenolol stopped. Dual chamber ICD was implanted on 03/11/2012 for primary prevention. Post- implantation checks satisfactory. Being discharged today. F/u with device clinic in 6 weeks CAD (coronary artery disease), [employer] coronary a rtery 03/06/2012 08/09/2021 Overview: Non obstructive single vessel ds Mid LAD 50% Ventricular tachycardia 02/28/2012 12/04/19 18 Overview: Exercise induced symptoms Reproduced during stress test Left heart catheterization on 03/01/2012 showed non-obstructive single-vessel CAD [50% mid-LAD]. Cardiac MRI shows normal EF with mild fibrosis. Carvedilol uptitrated. S/p dual chamber ICD. PMR (polymyalgia rheumatica) 02/01/201205/2017 Overview: On Prednisone 10mg/d Ct home dose Enthesopathy of unspecified site 12/21/2010 08/09/2021 Type 2 diabetes mellitus 12/01/2010 014 Overview: On Glargine 14 units, Glimepiride & Metformin No recent HbA1c Ct home regimen Accucheck AC/HS HbA1c 7 Somnolence 06/09/2009 07/05/2015 DIABETES MELLITUS ADULT ONSET 07/09/2007 Diabetic neuropathy, type II diabetes mellitus 03/03/2015 Overview: On Gabapentin Tobacco use disorder 11/10/2016 Overview: In remission Class 3 severe obesity with body mass index (BMI) of 40.0 to 44.9 in adult 10/06/2021 Last Assessment & Plan: He is very active the whole time and tries his best to eat well. On the downward trend to weight loss HTN (hypertension) 07/19/2017 Overview: On Clonidine,Atenolol, Lisinopril, Losartan Clonidine tapered & Atenolol stopped. Carvedilol up titrated to 50mg bid; decreased to 37.5mg bid due to relatively low systolic BP 97 with dizziness [for VT] Last Assessment & Plan: BP is well controlled on current regimen of medicines which is tolerated well. 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 Takes his medication regularly though. He does some stationary bike riding recently. 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 Cardiac MRI shows normal LV size, shape, and function with mild myocardial fibrosis at the basal and mid inferoseptum at the RV insertion point. Carvedilol dose uptitrated to 37.5mg BID while Clonidine was reduced to 0.1mg BID & Atenolol stopped. Dual chamber ICD was implanted on 03/11/2012 for primary prevention. Post- implantation checks satisfactory. Being discharged today. F/u with device clinic in 6 weeks CAD (coronary artery disease), [employer] [place] coronary a rtery 03/06/2012 08/09/2021 Overview: Non obstructive single vessel ds Mid LAD 50% Ventricular tachycardia 02/28/2012 12/04/19 18 Overview: Exercise induced symptoms Reproduced during stress test Left heart catheterization on 03/01/2012 showed non-obstructive single-vessel CAD [50% mid-LAD]. Cardiac MRI shows normal EF with mild fibrosis. Carvedilol uptitrated. S/p dual chamber ICD. PMR (polymyalgia rheumatica) 02/01/201205/2017 Overview: On Prednisone 10mg/d Ct home dose Enthesopathy of unspecified site 12/21/2010 08/09/2021 Type 2 diabetes mellitus 12/01/2010 014 Overview: On Glargine 14 units, Glimepiride & Metformin No recent HbA1c Ct home regimen Accucheck AC/HS HbA1c 7 Somnolence 06/09/2009 07/05/2015 DIABETES MELLITUS ADULT ONSET 07/09/2007 Diabetic neuropathy, type II diabetes mellitus 03/03/2015 Overview: On Gabapentin Tobacco use disorder 11/10/2016 Overview: In remission Class 3 severe obesity with body mass index (BMI) of 40.0 to 44.9 in adult 10/06/2021 Last Assessment & Plan: He is very active the whole time and tries his best to eat well. On the downward trend to weight loss HTN (hypertension) 07/19/2017 Overview: On Clonidine,Atenolol, Lisinopril, Losartan Clonidine tapered & Atenolol stopped. Carvedilol up titrated to 50mg bid; decreased to 37.5mg bid due to relatively low systolic BP 97 with dizziness [for VT] Last Assessment & Plan: BP is well controlled on current regimen of medicines which is tolerated well. 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 Takes his medication regularly though. He does some stationary bike riding recently. 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 Cardiac MRI shows normal LV size, shape, and function with mild myocardial fibrosis at the basal and mid inferoseptum at the RV insertion point. Carvedilol dose uptitrated to 37.5mg BID while Clonidine was reduced to 0.1mg BID & Atenolol stopped. Dual chamber ICD was implanted on 03/11/2012 for primary prevention. Post- implantation checks satisfactory. Being discharged today. F/u with device clinic in 6 weeks CAD (coronary artery disease), [employer] [place] coronary a rtery 03/06/2012 08/09/2021 Overview: Non obstructive single vessel ds Mid LAD 50% Ventricular tachycardia 02/28/2012 12/04/19 18 Overview: Exercise induced symptoms Reproduced during stress test Left heart catheterization on 03/01/2012 showed non-obstructive single-vessel CAD [50% mid-LAD]. Cardiac MRI shows normal EF with mild fibrosis. Carvedilol uptitrated. S/p dual chamber ICD. PMR (polymyalgia rheumatica) 02/01/201205/2017 Overview: On Prednisone 10mg/d Ct home dose Enthesopathy of unspecified site 12/21/2010 08/09/2021 Type 2 diabetes mellitus 12/01/2010 014 Overview: On Glargine 14 units, Glimepiride & Metformin No recent HbA1c Ct home regimen Accucheck AC/HS HbA1c 7 Somnolence 06/09/2009 07/05/2015 DIABETES MELLITUS ADULT ONSET 07/09/2007 Diabetic neuropathy, type II diabetes mellitus 03/03/2015 Overview: On Gabapentin Tobacco use disorder 11/10/2016 Overview: In remission Class 3 severe obesity with body mass index (BMI) of 40.0 to 44.9 in adult 10/06/2021 Last Assessment & Plan: He is very active the whole time and tries his best to eat well. On the downward trend to weight loss HTN (hypertension) 07/19/2017 Overview: On Clonidine,Atenolol, Lisinopril, Losartan Clonidine tapered & Atenolol stopped. Carvedilol up titrated to 50mg bid; decreased to 37.5mg bid due to relatively low systolic BP 97 with dizziness [for VT] Last Assessment & Plan: BP is well controlled on current regimen of medicines which is tolerated well. 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 Takes his medication regularly though. He does some stationary bike riding recently. 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 Cardiac MRI shows normal LV size, shape, and function with mild myocardial fibrosis at the basal and mid inferoseptum at the RV insertion point. Carvedilol dose uptitrated to 37.5mg BID while Clonidine was reduced to 0.1mg BID & Atenolol stopped. Dual chamber ICD was implanted on 03/11/2012 for primary prevention. Post- implantation checks satisfactory. Being discharged today. F/u with device clinic in 6 weeks CAD (coronary artery disease), [employer] [place] [employer] coronary a rtery 03/06/2012 08/09/2021 Overview: Non obstructive single vessel ds Mid LAD 50% Ventricular tachycardia 02/28/2012 12/04/19 18 Overview: Exercise induced symptoms Reproduced during stress test Left heart catheterization on 03/01/2012 showed non-obstructive single-vessel CAD [50% mid-LAD]. Cardiac MRI shows normal EF with mild fibrosis. Carvedilol uptitrated. S/p dual chamber ICD. PMR (polymyalgia rheumatica) 02/01/201205/2017 Overview: On Prednisone 10mg/d Ct home dose Enthesopathy of unspecified site 12/21/2010 08/09/2021 Type 2 diabetes mellitus 12/01/2010 014 Overview: On Glargine 14 units, Glimepiride & Metformin No recent HbA1c Ct home regimen Accucheck AC/HS HbA1c 7 Somnolence 06/09/2009 07/05/2015 DIABETES MELLITUS ADULT ONSET 07/09/2007 Diabetic neuropathy, type II diabetes mellitus 03/03/2015 Overview: On Gabapentin Tobacco use disorder 11/10/2016 Overview: In remission Class 3 severe obesity with body mass index (BMI) of 40.0 to 44.9 in adult 10/06/2021 Last Assessment & Plan: He is very active the whole time and tries his best to eat well. On the downward trend to weight loss HTN (hypertension) 07/19/2017 Overview: On Clonidine,Atenolol, Lisinopril, Losartan Clonidine tapered & Atenolol stopped. Carvedilol up titrated to 50mg bid; decreased to 37.5mg bid due to relatively low systolic BP 97 with dizziness [for VT] Last Assessment & Plan: BP is well controlled on current regimen of medicines which is tolerated well. 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 Takes his medication regularly though. He does some stationary bike riding recently. 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 Cardiac MRI shows normal LV size, shape, and function with mild myocardial fibrosis at the basal and mid inferoseptum at the RV insertion point. Carvedilol dose uptitrated to 37.5mg BID while Clonidine was reduced to 0.1mg BID & Atenolol stopped. Dual chamber ICD was implanted on 03/11/2012 for primary prevention. Post- implantation checks satisfactory. Being discharged today. F/u with device clinic in 6 weeks CAD (coronary artery disease), [employer] [place] coronary a rtery 03/06/2012 08/09/2021 Overview: Non obstructive single vessel ds Mid LAD 50% Ventricular tachycardia 02/28/2012 12/04/19 18 Overview: Exercise induced symptoms Reproduced during stress test Left heart catheterization on 03/01/2012 showed non-obstructive single-vessel CAD [50% mid-LAD]. Cardiac MRI shows normal EF with mild fibrosis. Carvedilol uptitrated. S/p dual chamber ICD. PMR (polymyalgia rheumatica) 02/01/201205/2017 Overview: On Prednisone 10mg/d Ct home dose Enthesopathy of unspecified site 12/21/2010 08/09/2021 Type 2 diabetes mellitus 12/01/2010 014 Overview: On Glargine 14 units, Glimepiride & Metformin No recent HbA1c Ct home regimen Accucheck AC/HS HbA1c 7 Somnolence 06/09/2009 07/05/2015 DIABETES MELLITUS ADULT ONSET 07/09/2007 Diabetic neuropathy, type II diabetes mellitus 03/03/2015 Overview: On Gabapentin Tobacco use disorder 11/10/2016 Overview: In remission Class 3 severe obesity with body mass index (BMI) of 40.0 to 44.9 in adult 10/06/2021 Last Assessment & Plan: He is very active the whole time and tries his best to eat well. On the downward trend to weight loss HTN (hypertension) 07/19/2017 Overview: On Clonidine,Atenolol, Lisinopril, Losartan Clonidine tapered & Atenolol stopped. Carvedilol up titrated to 50mg bid; decreased to 37.5mg bid due to relatively low systolic BP 97 with dizziness [for VT] Last Assessment & Plan: BP is well controlled on current regimen of medicines which is tolerated well. 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 Takes his medication regularly though. He does some stationary bike riding recently. 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 Cardiac MRI shows normal LV size, shape, and function with mild myocardial fibrosis at the basal and mid inferoseptum at the RV insertion point. Carvedilol dose uptitrated to 37.5mg BID while Clonidine was reduced to 0.1mg BID & Atenolol stopped. Dual chamber ICD was implanted on 03/11/2012 for primary prevention. Post- implantation checks satisfactory. Being discharged today. F/u with device clinic in 6 weeks CAD (coronary artery disease), [employer] coronary a rtery 03/06/2012 08/09/2021 Overview: Non obstructive single vessel ds Mid LAD 50% Ventricular tachycardia 02/28/2012 12/04/19 18 Overview: Exercise induced symptoms Reproduced during stress test Left heart catheterization on 03/01/2012 showed non-obstructive single-vessel CAD [50% mid-LAD]. Cardiac MRI shows normal EF with mild fibrosis. Carvedilol uptitrated. S/p dual chamber ICD. PMR (polymyalgia rheumatica) 02/01/201205/2017 Overview: On Prednisone 10mg/d Ct home dose Enthesopathy of unspecified site 12/21/2010 08/09/2021 Type 2 diabetes mellitus 12/01/2010 014 Overview: On Glargine 14 units, Glimepiride & Metformin No recent HbA1c Ct home regimen Accucheck AC/HS HbA1c 7 Somnolence 06/09/2009 07/05/2015 DIABETES MELLITUS ADULT ONSET 07/09/2007 Diabetic neuropathy, type II diabetes mellitus 03/03/2015 Overview: On Gabapentin Tobacco use disorder 11/10/2016 Overview: In remission Class 3 severe obesity with body mass index (BMI) of 40.0 to 44.9 in adult 10/06/2021 Last Assessment & Plan: He is very active the whole time and tries his best to eat well. On the downward trend to weight loss HTN (hypertension) 07/19/2017 Overview: On Clonidine,Atenolol, Lisinopril, Losartan Clonidine tapered & Atenolol stopped. Carvedilol up titrated to 50mg bid; decreased to 37.5mg bid due to relatively low systolic BP 97 with dizziness [for VT] Last Assessment & Plan: BP is well controlled on current regimen of medicines which is tolerated well. 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 Takes his medication regularly though. He does some stationary bike riding recently. 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 Cardiac MRI shows normal LV size, shape, and function with mild myocardial fibrosis at the basal and mid inferoseptum at the RV insertion point. Carvedilol dose uptitrated to 37.5mg BID while Clonidine was reduced to 0.1mg BID & Atenolol stopped. Dual chamber ICD was implanted on 03/11/2012 for primary prevention. Post- implantation checks satisfactory. Being discharged today. F/u with device clinic in 6 weeks CAD (coronary artery disease), [employer] [place] coronary a rtery 03/06/2012 08/09/2021 Overview: Non obstructive single vessel ds Mid LAD 50% Ventricular tachycardia 02/28/2012 12/04/19 18 Overview: Exercise induced symptoms Reproduced during stress test Left heart catheterization on 03/01/2012 showed non-obstructive single-vessel CAD [50% mid-LAD]. Cardiac MRI shows normal EF with mild fibrosis. Carvedilol uptitrated. S/p dual chamber ICD. PMR (polymyalgia rheumatica) 02/01/201205/2017 Overview: On Prednisone 10mg/d Ct home dose Enthesopathy of unspecified site 12/21/2010 08/09/2021 Type 2 diabetes mellitus 12/01/2010 014 Overview: On Glargine 14 units, Glimepiride & Metformin No recent HbA1c Ct home regimen Accucheck AC/HS HbA1c 7 Somnolence 06/09/2009 07/05/2015 DIABETES MELLITUS ADULT ONSET 07/09/2007 Diabetic neuropathy, type II diabetes mellitus 03/03/2015 Overview: On Gabapentin Tobacco use disorder 11/10/2016 Overview: In remission Class 3 severe obesity with body mass index (BMI) of 40.0 to 44.9 in adult 10/06/2021 Last Assessment & Plan: He is very active the whole time and tries his best to eat well. On the downward trend to weight loss HTN (hypertension) 07/19/2017 Overview: On Clonidine,Atenolol, Lisinopril, Losartan Clonidine tapered & Atenolol stopped. Carvedilol up titrated to 50mg bid; decreased to 37.5mg bid due to relatively low systolic BP 97 with dizziness [for VT] Last Assessment & Plan: BP is well controlled on current regimen of medicines which is tolerated well. 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 Takes his medication regularly though. He does some stationary bike riding recently. 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 Cardiac MRI shows normal LV size, shape, and function with mild myocardial fibrosis at the basal and mid inferoseptum at the RV insertion point. Carvedilol dose uptitrated to 37.5mg BID while Clonidine was reduced to 0.1mg BID & Atenolol stopped. Dual chamber ICD was implanted on 03/11/2012 for primary prevention. Post- implantation checks satisfactory. Being discharged today. F/u with device clinic in 6 weeks CAD (coronary artery disease), [employer] coronary a rtery 03/06/2012 08/09/2021 Overview: Non obstructive single vessel ds Mid LAD 50% Ventricular tachycardia 02/28/2012 12/04/19 18 Overview: Exercise induced symptoms Reproduced during stress test Left heart catheterization on 03/01/2012 showed non-obstructive single-vessel CAD [50% mid-LAD]. Cardiac MRI shows normal EF with mild fibrosis. Carvedilol uptitrated. S/p dual chamber ICD. PMR (polymyalgia rheumatica) 02/01/201205/2017 Overview: On Prednisone 10mg/d Ct home dose Enthesopathy of unspecified site 12/21/2010 08/09/2021 Type 2 diabetes mellitus 12/01/2010 014 Overview: On Glargine 14 units, Glimepiride & Metformin No recent HbA1c Ct home regimen Accucheck AC/HS HbA1c 7 Somnolence 06/09/2009 07/05/2015 DIABETES MELLITUS ADULT ONSET 07/09/2007 Diabetic neuropathy, type II diabetes mellitus 03/03/2015 Overview: On Gabapentin Tobacco use disorder 11/10/2016 Overview: In remission Class 3 severe obesity with body mass index (BMI) of 40.0 to 44.9 in adult 10/06/2021 Last Assessment & Plan: He is very active the whole time and tries his best to eat well. On the downward trend to weight loss HTN (hypertension) 07/19/2017 Overview: On Clonidine,Atenolol, Lisinopril, Losartan Clonidine tapered & Atenolol stopped. Carvedilol up titrated to 50mg bid; decreased to 37.5mg bid due to relatively low systolic BP 97 with dizziness [for VT] Last Assessment & Plan: BP is well controlled on current regimen of medicines which is tolerated well. 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 Takes his medication regularly though. He does some stationary bike riding recently. 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 Cardiac MRI shows normal LV size, shape, and function with mild myocardial fibrosis at the basal and mid inferoseptum at the RV insertion point. Carvedilol dose uptitrated to 37.5mg BID while Clonidine was reduced to 0.1mg BID & Atenolol stopped. Dual chamber ICD was implanted on 03/11/2012 for primary prevention. Post- implantation checks satisfactory. Being discharged today. F/u with device clinic in 6 weeks CAD (coronary artery disease), [employer] coronary a rtery 03/06/2012 08/09/2021 Overview: Non obstructive single vessel ds Mid LAD 50% Ventricular tachycardia 02/28/2012 12/04/19 18 Overview: Exercise induced symptoms Reproduced during stress test Left heart catheterization on 03/01/2012 showed non-obstructive single-vessel CAD [50% mid-LAD]. Cardiac MRI shows normal EF with mild fibrosis. Carvedilol uptitrated. S/p dual chamber ICD. PMR (polymyalgia rheumatica) 02/01/201205/2017 Overview: On Prednisone 10mg/d Ct home dose Enthesopathy of unspecified site 12/21/2010 08/09/2021 Type 2 diabetes mellitus 12/01/2010 014 Overview: On Glargine 14 units, Glimepiride & Metformin No recent HbA1c Ct home regimen Accucheck AC/HS HbA1c 7 Somnolence 06/09/2009 07/05/2015 DIABETES MELLITUS ADULT ONSET 07/09/2007 Diabetic neuropathy, type II diabetes mellitus 03/03/2015 Overview: On Gabapentin Tobacco use disorder 11/10/2016 Overview: In remission Class 3 severe obesity with body mass index (BMI) of 40.0 to 44.9 in adult 10/06/2021 Last Assessment & Plan: He is very active the whole time and tries his best to eat well. On the downward trend to weight loss HTN (hypertension) 07/19/2017 Overview: On Clonidine,Atenolol, Lisinopril, Losartan Clonidine tapered & Atenolol stopped. Carvedilol up titrated to 50mg bid; decreased to 37.5mg bid due to relatively low systolic BP 97 with dizziness [for VT] Last Assessment & Plan: BP is well controlled on current regimen of medicines which is tolerated well. 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 Takes his medication regularly though. He does some stationary bike riding recently. 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 Cardiac MRI shows normal LV size, shape, and function with mild myocardial fibrosis at the basal and mid inferoseptum at the RV insertion point. Carvedilol dose uptitrated to 37.5mg BID while Clonidine was reduced to 0.1mg BID & Atenolol stopped. Dual chamber ICD was implanted on 03/11/2012 for primary prevention. Post- implantation checks satisfactory. Being discharged today. F/u with device clinic in 6 weeks CAD (coronary artery disease), [employer] coronary a rtery 03/06/2012 08/09/2021 Overview: Non obstructive single vessel ds Mid LAD 50% Ventricular tachycardia 02/28/2012 12/04/19 18 Overview: Exercise induced symptoms Reproduced during stress test Left heart catheterization on 03/01/2012 showed non-obstructive single-vessel CAD [50% mid-LAD]. Cardiac MRI shows normal EF with mild fibrosis. Carvedilol uptitrated. S/p dual chamber ICD. PMR (polymyalgia rheumatica) 02/01/201205/2017 Overview: On Prednisone 10mg/d Ct home dose Enthesopathy of unspecified site 12/21/2010 08/09/2021 Type 2 diabetes mellitus 12/01/2010 014 Overview: On Glargine 14 units, Glimepiride & Metformin No recent HbA1c Ct home regimen Accucheck AC/HS HbA1c 7 Somnolence 06/09/2009 07/05/2015 DIABETES MELLITUS ADULT ONSET 07/09/2007 Diabetic neuropathy, type II diabetes mellitus 03/03/2015 Overview: On Gabapentin Tobacco use disorder 11/10/2016 Overview: In remission Class 3 severe obesity with body mass index (BMI) of 40.0 to 44.9 in adult 10/06/2021 Last Assessment & Plan: He is very active the whole time and tries his best to eat well. On the downward trend to weight loss HTN (hypertension) 07/19/2017 Overview: On Clonidine,Atenolol, Lisinopril, Losartan Clonidine tapered & Atenolol stopped. Carvedilol up titrated to 50mg bid; decreased to 37.5mg bid due to relatively low systolic BP 97 with dizziness [for VT] Last Assessment & Plan: BP is well controlled on current regimen of medicines which is tolerated well. 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 Takes his medication regularly though. He does some stationary bike riding recently. 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 Cardiac MRI shows normal LV size, shape, and function with mild myocardial fibrosis at the basal and mid inferoseptum at the RV insertion point. Carvedilol dose uptitrated to 37.5mg BID while Clonidine was reduced to 0.1mg BID & Atenolol stopped. Dual chamber ICD was implanted on 03/11/2012 for primary prevention. Post- implantation checks satisfactory. Being discharged today. F/u with device clinic in 6 weeks CAD (coronary artery disease), [employer] coronary a rtery 03/06/2012 08/09/2021 Overview: Non obstructive single vessel ds Mid LAD 50% Ventricular tachycardia 02/28/2012 12/04/19 18 Overview: Exercise induced symptoms Reproduced during stress test Left heart catheterization on 03/01/2012 showed non-obstructive single-vessel CAD [50% mid-LAD]. Cardiac MRI shows normal EF with mild fibrosis. Carvedilol uptitrated. S/p dual chamber ICD. PMR (polymyalgia rheumatica) 02/01/201205/2017 Overview: On Prednisone 10mg/d Ct home dose Enthesopathy of unspecified site 12/21/2010 08/09/2021 Type 2 diabetes mellitus 12/01/2010 014 Overview: On Glargine 14 units, Glimepiride & Metformin No recent HbA1c Ct home regimen Accucheck AC/HS HbA1c 7 Somnolence 06/09/2009 07/05/2015 DIABETES MELLITUS ADULT ONSET 07/09/2007 Diabetic neuropathy, type II diabetes mellitus 03/03/2015 Overview: On Gabapentin Tobacco use disorder 11/10/2016 Overview: In remission Class 3 severe obesity with body mass index (BMI) of 40.0 to 44.9 in adult 10/06/2021 Last Assessment & Plan: He is very active the whole time and tries his best to eat well. On the downward trend to weight loss HTN (hypertension) 07/19/2017 Overview: On Clonidine,Atenolol, Lisinopril, Losartan Clonidine tapered & Atenolol stopped. Carvedilol up titrated to 50mg bid; decreased to 37.5mg bid due to relatively low systolic BP 97 with dizziness [for VT] Last Assessment & Plan: BP is well controlled on current regimen of medicines which is tolerated well. 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 Takes his medication regularly though. He does some stationary bike riding recently. 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 Cardiac MRI shows normal LV size, shape, and function with mild myocardial fibrosis at the basal and mid inferoseptum at the RV insertion point. Carvedilol dose uptitrated to 37.5mg BID while Clonidine was reduced to 0.1mg BID & Atenolol stopped. Dual chamber ICD was implanted on 03/11/2012 for primary prevention. Post- implantation checks satisfactory. Being discharged today. F/u with device clinic in 6 weeks CAD (coronary artery disease), [employer] coronary a rtery 03/06/2012 08/09/2021 Overview: Non obstructive single vessel ds Mid LAD 50% Ventricular tachycardia 02/28/2012 12/04/19 18 Overview: Exercise induced symptoms Reproduced during stress test Left heart catheterization on 03/01/2012 showed non-obstructive single-vessel CAD [50% mid-LAD]. Cardiac MRI shows normal EF with mild fibrosis. Carvedilol uptitrated. S/p dual chamber ICD. PMR (polymyalgia rheumatica) 02/01/201205/2017 Overview: On Prednisone 10mg/d Ct home dose Enthesopathy of unspecified site 12/21/2010 08/09/2021 Type 2 diabetes mellitus 12/01/2010 014 Overview: On Glargine 14 units, Glimepiride & Metformin No recent HbA1c Ct home regimen Accucheck AC/HS HbA1c 7 Somnolence 06/09/2009 07/05/2015 DIABETES MELLITUS ADULT ONSET 07/09/2007 Diabetic neuropathy, type II diabetes mellitus 03/03/2015 Overview: On Gabapentin Tobacco use disorder 11/10/2016 Overview: In remission Class 3 severe obesity with body mass index (BMI) of 40.0 to 44.9 in adult 10/06/2021 Last Assessment & Plan: He is very active the whole time and tries his best to eat well. On the downward trend to weight loss HTN (hypertension) 07/19/2017 Overview: On Clonidine,Atenolol, Lisinopril, Losartan Clonidine tapered & Atenolol stopped. Carvedilol up titrated to 50mg bid; decreased to 37.5mg bid due to relatively low systolic BP 97 with dizziness [for VT] Last Assessment & Plan: BP is well controlled on current regimen of medicines which is tolerated well. 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 Takes his medication regularly though. He does some stationary bike riding recently. 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 Cardiac MRI shows normal LV size, shape, and function with mild myocardial fibrosis at the basal and mid inferoseptum at the RV insertion point. Carvedilol dose uptitrated to 37.5mg BID while Clonidine was reduced to 0.1mg BID & Atenolol stopped. Dual chamber ICD was implanted on 03/11/2012 for primary prevention. Post- implantation checks satisfactory. Being discharged today. F/u with device clinic in 6 weeks CAD (coronary artery disease), [employer] coronary a rtery 03/06/2012 08/09/2021 Overview: Non obstructive single vessel ds Mid LAD 50% Ventricular tachycardia 02/28/2012 12/04/19 18 Overview: Exercise induced symptoms Reproduced during stress test Left heart catheterization on 03/01/2012 showed non-obstructive single-vessel CAD [50% mid-LAD]. Cardiac MRI shows normal EF with mild fibrosis. Carvedilol uptitrated. S/p dual chamber ICD. PMR (polymyalgia rheumatica) 02/01/201205/2017 Overview: On Prednisone 10mg/d Ct home dose Enthesopathy of unspecified site 12/21/2010 08/09/2021 Type 2 diabetes mellitus 12/01/2010 014 Overview: On Glargine 14 units, Glimepiride & Metformin No recent HbA1c Ct home regimen Accucheck AC/HS HbA1c 7 Somnolence 06/09/2009 07/05/2015 DIABETES MELLITUS ADULT ONSET 07/09/2007 Diabetic neuropathy, type II diabetes mellitus 03/03/2015 Overview: On Gabapentin Tobacco use disorder 11/10/2016 Overview: In remission Class 3 severe obesity with body mass index (BMI) of 40.0 to 44.9 in adult 10/06/2021 Last Assessment & Plan: He is very active the whole time and tries his best to eat well. On the downward trend to weight loss HTN (hypertension) 07/19/2017 Overview: On Clonidine,Atenolol, Lisinopril, Losartan Clonidine tapered & Atenolol stopped. Carvedilol up titrated to 50mg bid; decreased to 37.5mg bid due to relatively low systolic BP 97 with dizziness [for VT] Last Assessment & Plan: BP is well controlled on current regimen of medicines which is tolerated well. 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 Takes his medication regularly though. He does some stationary bike riding recently. 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 Cardiac MRI shows normal LV size, shape, and function with mild myocardial fibrosis at the basal and mid inferoseptum at the RV insertion point. Carvedilol dose uptitrated to 37.5mg BID while Clonidine was reduced to 0.1mg BID & Atenolol stopped. Dual chamber ICD was implanted on 03/11/2012 for primary prevention. Post- implantation checks satisfactory. Being discharged today. F/u with device clinic in 6 weeks CAD (coronary artery disease), [employer] [place] [employer] coronary a rtery 03/06/2012 08/09/2021 Overview: Non obstructive single vessel ds Mid LAD 50% Ventricular tachycardia 02/28/2012 12/04/19 18 Overview: Exercise induced symptoms Reproduced during stress test Left heart catheterization on 03/01/2012 showed non-obstructive single-vessel CAD [50% mid-LAD]. Cardiac MRI shows normal EF with mild fibrosis. Carvedilol uptitrated. S/p dual chamber ICD. PMR (polymyalgia rheumatica) 02/01/201205/2017 Overview: On Prednisone 10mg/d Ct home dose Enthesopathy of unspecified site 12/21/2010 08/09/2021 Type 2 diabetes mellitus 12/01/2010 014 Overview: On Glargine 14 units, Glimepiride & Metformin No recent HbA1c Ct home regimen Accucheck AC/HS HbA1c 7 Somnolence 06/09/2009 07/05/2015 DIABETES MELLITUS ADULT ONSET 07/09/2007 Diabetic neuropathy, type II diabetes mellitus 03/03/2015 Overview: On Gabapentin Tobacco use disorder 11/10/2016 Overview: In remission Class 3 severe obesity with body mass index (BMI) of 40.0 to 44.9 in adult 10/06/2021 Last Assessment & Plan: He is very active the whole time and tries his best to eat well. On the downward trend to weight loss HTN (hypertension) 07/19/2017 Overview: On Clonidine,Atenolol, Lisinopril, Losartan Clonidine tapered & Atenolol stopped. Carvedilol up titrated to 50mg bid; decreased to 37.5mg bid due to relatively low systolic BP 97 with dizziness [for VT] Last Assessment & Plan: BP is well controlled on current regimen of medicines which is tolerated well. 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 Takes his medication regularly though. He does some stationary bike riding recently. 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 Cardiac MRI shows normal LV size, shape, and function with mild myocardial fibrosis at the basal and mid inferoseptum at the RV insertion point. Carvedilol dose uptitrated to 37.5mg BID while Clonidine was reduced to 0.1mg BID & Atenolol stopped. Dual chamber ICD was implanted on 03/11/2012 for primary prevention. Post- implantation checks satisfactory. Being discharged today. F/u with device clinic in 6 weeks CAD (coronary artery disease), [employer] [place] [employer] coronary a rtery 03/06/2012 08/09/2021 Overview: Non obstructive single vessel ds Mid LAD 50% Ventricular tachycardia 02/28/2012 12/04/19 18 Overview: Exercise induced symptoms Reproduced during stress test Left heart catheterization on 03/01/2012 showed non-obstructive single-vessel CAD [50% mid-LAD]. Cardiac MRI shows normal EF with mild fibrosis. Carvedilol uptitrated. S/p dual chamber ICD. PMR (polymyalgia rheumatica) 02/01/201205/2017 Overview: On Prednisone 10mg/d Ct home dose Enthesopathy of unspecified site 12/21/2010 08/09/2021 Type 2 diabetes mellitus 12/01/2010 014 Overview: On Glargine 14 units, Glimepiride & Metformin No recent HbA1c Ct home regimen Accucheck AC/HS HbA1c 7 Somnolence 06/09/2009 07/05/2015 DIABETES MELLITUS ADULT ONSET 07/09/2007 Diabetic neuropathy, type II diabetes mellitus 03/03/2015 Overview: On Gabapentin Tobacco use disorder 11/10/2016 Overview: In remission Class 3 severe obesity with body mass index (BMI) of 40.0 to 44.9 in adult 10/06/2021 Last Assessment & Plan: He is very active the whole time and tries his best to eat well. On the downward trend to weight loss HTN (hypertension) 07/19/2017 Overview: On Clonidine,Atenolol, Lisinopril, Losartan Clonidine tapered & Atenolol stopped. Carvedilol up titrated to 50mg bid; decreased to 37.5mg bid due to relatively low systolic BP 97 with dizziness [for VT] Last Assessment & Plan: BP is well controlled on current regimen of medicines which is tolerated well. 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 Takes his medication regularly though. He does some stationary bike riding recently. 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 Cardiac MRI shows normal LV size, shape, and function with mild myocardial fibrosis at the basal and mid inferoseptum at the RV insertion point. Carvedilol dose uptitrated to 37.5mg BID while Clonidine was reduced to 0.1mg BID & Atenolol stopped. Dual chamber ICD was implanted on 03/11/2012 for primary prevention. Post- implantation checks satisfactory. Being discharged today. F/u with device clinic in 6 weeks CAD (coronary artery disease), [employer] coronary a rtery 03/06/2012 08/09/2021 Overview: Non obstructive single vessel ds Mid LAD 50% Ventricular tachycardia 02/28/2012 12/04/19 18 Overview: Exercise induced symptoms Reproduced during stress test Left heart catheterization on 03/01/2012 showed non-obstructive single-vessel CAD [50% mid-LAD]. Cardiac MRI shows normal EF with mild fibrosis. Carvedilol uptitrated. S/p dual chamber ICD. PMR (polymyalgia rheumatica) 02/01/201205/2017 Overview: On Prednisone 10mg/d Ct home dose Enthesopathy of unspecified site 12/21/2010 08/09/2021 Type 2 diabetes mellitus 12/01/2010 014 Overview: On Glargine 14 units, Glimepiride & Metformin No recent HbA1c Ct home regimen Accucheck AC/HS HbA1c 7 Somnolence 06/09/2009 07/05/2015 DIABETES MELLITUS ADULT ONSET 07/09/2007 Diabetic neuropathy, type II diabetes mellitus 03/03/2015 Overview: On Gabapentin Tobacco use disorder 11/10/2016 Overview: In remission Class 3 severe obesity with body mass index (BMI) of 40.0 to 44.9 in adult 10/06/2021 Last Assessment & Plan: He is very active the whole time and tries his best to eat well. On the downward trend to weight loss HTN (hypertension) 07/19/2017 Overview: On Clonidine,Atenolol, Lisinopril, Losartan Clonidine tapered & Atenolol stopped. Carvedilol up titrated to 50mg bid; decreased to 37.5mg bid due to relatively low systolic BP 97 with dizziness [for VT] Last Assessment & Plan: BP is well controlled on current regimen of medicines which is tolerated well. 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 Takes his medication regularly though. He does some stationary bike riding recently. 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 Cardiac MRI shows normal LV size, shape, and function with mild myocardial fibrosis at the basal and mid inferoseptum at the RV insertion point. Carvedilol dose uptitrated to 37.5mg BID while Clonidine was reduced to 0.1mg BID & Atenolol stopped. Dual chamber ICD was implanted on 03/11/2012 for primary prevention. Post- implantation checks satisfactory. Being discharged today. F/u with device clinic in 6 weeks CAD (coronary artery disease), [employer] coronary a rtery 03/06/2012 08/09/2021 Overview: Non obstructive single vessel ds Mid LAD 50% Ventricular tachycardia 02/28/2012 12/04/19 18 Overview: Exercise induced symptoms Reproduced during stress test Left heart catheterization on 03/01/2012 showed non-obstructive single-vessel CAD [50% mid-LAD]. Cardiac MRI shows normal EF with mild fibrosis. Carvedilol uptitrated. S/p dual chamber ICD. PMR (polymyalgia rheumatica) 02/01/201205/2017 Overview: On Prednisone 10mg/d Ct home dose Enthesopathy of unspecified site 12/21/2010 08/09/2021 Type 2 diabetes mellitus 12/01/2010 014 Overview: On Glargine 14 units, Glimepiride & Metformin No recent HbA1c Ct home regimen Accucheck AC/HS HbA1c 7 Somnolence 06/09/2009 07/05/2015 DIABETES MELLITUS ADULT ONSET 07/09/2007 Diabetic neuropathy, type II diabetes mellitus 03/03/2015 Overview: On Gabapentin Tobacco use disorder 11/10/2016 Overview: In remission Class 3 severe obesity with body mass index (BMI) of 40.0 to 44.9 in adult 10/06/2021 Last Assessment & Plan: He is very active the whole time and tries his best to eat well. On the downward trend to weight loss HTN (hypertension) 07/19/2017 Overview: On Clonidine,Atenolol, Lisinopril, Losartan Clonidine tapered & Atenolol stopped. Carvedilol up titrated to 50mg bid; decreased to 37.5mg bid due to relatively low systolic BP 97 with dizziness [for VT] Last Assessment & Plan: BP is well controlled on current regimen of medicines which is tolerated well. 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 Takes his medication regularly though. He does some stationary bike riding recently. 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 Cardiac MRI shows normal LV size, shape, and function with mild myocardial fibrosis at the basal and mid inferoseptum at the RV insertion point. Carvedilol dose uptitrated to 37.5mg BID while Clonidine was reduced to 0.1mg BID & Atenolol stopped. Dual chamber ICD was implanted on 03/11/2012 for primary prevention. Post- implantation checks satisfactory. Being discharged today. F/u with device clinic in 6 weeks CAD (coronary artery disease), [employer] coronary a rtery 03/06/2012 08/09/2021 Overview: Non obstructive single vessel ds Mid LAD 50% Ventricular tachycardia 02/28/2012 12/04/19 18 Overview: Exercise induced symptoms Reproduced during stress test Left heart catheterization on 03/01/2012 showed non-obstructive single-vessel CAD [50% mid-LAD]. Cardiac MRI shows normal EF with mild fibrosis. Carvedilol uptitrated. S/p dual chamber ICD. PMR (polymyalgia rheumatica) 02/01/201205/2017 Overview: On Prednisone 10mg/d Ct home dose Enthesopathy of unspecified site 12/21/2010 08/09/2021 Type 2 diabetes mellitus 12/01/2010 014 Overview: On Glargine 14 units, Glimepiride & Metformin No recent HbA1c Ct home regimen Accucheck AC/HS HbA1c 7 Somnolence 06/09/2009 07/05/2015 DIABETES MELLITUS ADULT ONSET 07/09/2007 Diabetic neuropathy, type II diabetes mellitus 03/03/2015 Overview: On Gabapentin Tobacco use disorder 11/10/2016 Overview: In remission Class 3 severe obesity with body mass index (BMI) of 40.0 to 44.9 in adult 10/06/2021 Last Assessment & Plan: He is very active the whole time and tries his best to eat well. On the downward trend to weight loss HTN (hypertension) 07/19/2017 Overview: On Clonidine,Atenolol, Lisinopril, Losartan Clonidine tapered & Atenolol stopped. Carvedilol up titrated to 50mg bid; decreased to 37.5mg bid due to relatively low systolic BP 97 with dizziness [for VT] Last Assessment & Plan: BP is well controlled on current regimen of medicines which is tolerated well. 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 Takes his medication regularly though. He does some stationary bike riding recently. 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 Cardiac MRI shows normal LV size, shape, and function with mild myocardial fibrosis at the basal and mid inferoseptum at the RV insertion point. Carvedilol dose uptitrated to 37.5mg BID while Clonidine was reduced to 0.1mg BID & Atenolol stopped. Dual chamber ICD was implanted on 03/11/2012 for primary prevention. Post- implantation checks satisfactory. Being discharged today. F/u with device clinic in 6 weeks CAD (coronary artery disease), [employer] coronary a rtery 03/06/2012 08/09/2021 Overview: Non obstructive single vessel ds Mid LAD 50% Ventricular tachycardia 02/28/2012 12/04/19 18 Overview: Exercise induced symptoms Reproduced during stress test Left heart catheterization on 03/01/2012 showed non-obstructive single-vessel CAD [50% mid-LAD]. Cardiac MRI shows normal EF with mild fibrosis. Carvedilol uptitrated. S/p dual chamber ICD. PMR (polymyalgia rheumatica) 02/01/201205/2017 Overview: On Prednisone 10mg/d Ct home dose Enthesopathy of unspecified site 12/21/2010 08/09/2021 Type 2 diabetes mellitus 12/01/2010 014 Overview: On Glargine 14 units, Glimepiride & Metformin No recent HbA1c Ct home regimen Accucheck AC/HS HbA1c 7 Somnolence 06/09/2009 07/05/2015 DIABETES MELLITUS ADULT ONSET 07/09/2007 Diabetic neuropathy, type II diabetes mellitus 03/03/2015 Overview: On Gabapentin Tobacco use disorder 11/10/2016 Overview: In remission Class 3 severe obesity with body mass index (BMI) of 40.0 to 44.9 in adult 10/06/2021 Last Assessment & Plan: He is very active the whole time and tries his best to eat well. On the downward trend to weight loss HTN (hypertension) 07/19/2017 Overview: On Clonidine,Atenolol, Lisinopril, Losartan Clonidine tapered & Atenolol stopped. Carvedilol up titrated to 50mg bid; decreased to 37.5mg bid due to relatively low systolic BP 97 with dizziness [for VT] Last Assessment & Plan: BP is well controlled on current regimen of medicines which is tolerated well. 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 Takes his medication regularly though. He does some stationary bike riding recently. 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 Cardiac MRI shows normal LV size, shape, and function with mild myocardial fibrosis at the basal and mid inferoseptum at the RV insertion point. Carvedilol dose uptitrated to 37.5mg BID while Clonidine was reduced to 0.1mg BID & Atenolol stopped. Dual chamber ICD was implanted on 03/11/2012 for primary prevention. Post- implantation checks satisfactory. Being discharged today. F/u with device clinic in 6 weeks CAD (coronary artery disease), [employer] coronary a rtery 03/06/2012 08/09/2021 Overview: Non obstructive single vessel ds Mid LAD 50% Ventricular tachycardia 02/28/2012 12/04/19 18 Overview: Exercise induced symptoms Reproduced during stress test Left heart catheterization on 03/01/2012 showed non-obstructive single-vessel CAD [50% mid-LAD]. Cardiac MRI shows normal EF with mild fibrosis. Carvedilol uptitrated. S/p dual chamber ICD. PMR (polymyalgia rheumatica) 02/01/201205/2017 Overview: On Prednisone 10mg/d Ct home dose Enthesopathy of unspecified site 12/21/2010 08/09/2021 Type 2 diabetes mellitus 12/01/2010 014 Overview: On Glargine 14 units, Glimepiride & Metformin No recent HbA1c Ct home regimen Accucheck AC/HS HbA1c 7 Somnolence 06/09/2009 07/05/2015 DIABETES MELLITUS ADULT ONSET 07/09/2007 Diabetic neuropathy, type II diabetes mellitus 03/03/2015 Overview: On Gabapentin Tobacco use disorder 11/10/2016 Overview: In remission Class 3 severe obesity with body mass index (BMI) of 40.0 to 44.9 in adult 10/06/2021 Last Assessment & Plan: He is very active the whole time and tries his best to eat well. On the downward trend to weight loss HTN (hypertension) 07/19/2017 Overview: On Clonidine,Atenolol, Lisinopril, Losartan Clonidine tapered & Atenolol stopped. Carvedilol up titrated to 50mg bid; decreased to 37.5mg bid due to relatively low systolic BP 97 with dizziness [for VT] Last Assessment & Plan: BP is well controlled on current regimen of medicines which is tolerated well. 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 Takes his medication regularly though. He does some stationary bike riding recently. 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 Cardiac MRI shows normal LV size, shape, and function with mild myocardial fibrosis at the basal and mid inferoseptum at the RV insertion point. Carvedilol dose uptitrated to 37.5mg BID while Clonidine was reduced to 0.1mg BID & Atenolol stopped. Dual chamber ICD was implanted on 03/11/2012 for primary prevention. Post- implantation checks satisfactory. Being discharged today. F/u with device clinic in 6 weeks CAD (coronary artery disease), [employer] coronary a rtery 03/06/2012 08/09/2021 Overview: Non obstructive single vessel ds Mid LAD 50% Ventricular tachycardia 02/28/2012 12/04/19 18 Overview: Exercise induced symptoms Reproduced during stress test Left heart catheterization on 03/01/2012 showed non-obstructive single-vessel CAD [50% mid-LAD]. Cardiac MRI shows normal EF with mild fibrosis. Carvedilol uptitrated. S/p dual chamber ICD. PMR (polymyalgia rheumatica) 02/01/201205/2017 Overview: On Prednisone 10mg/d Ct home dose Enthesopathy of unspecified site 12/21/2010 08/09/2021 Type 2 diabetes mellitus 12/01/2010 014 Overview: On Glargine 14 units, Glimepiride & Metformin No recent HbA1c Ct home regimen Accucheck AC/HS HbA1c 7 Somnolence 06/09/2009 07/05/2015 DIABETES MELLITUS ADULT ONSET 07/09/2007 Diabetic neuropathy, type II diabetes mellitus 03/03/2015 Overview: On Gabapentin Tobacco use disorder 11/10/2016 Overview: In remission Class 3 severe obesity with body mass index (BMI) of 40.0 to 44.9 in adult 10/06/2021 Last Assessment & Plan: He is very active the whole time and tries his best to eat well. On the downward trend to weight loss HTN (hypertension) 07/19/2017 Overview: On Clonidine,Atenolol, Lisinopril, Losartan Clonidine tapered & Atenolol stopped. Carvedilol up titrated to 50mg bid; decreased to 37.5mg bid due to relatively low systolic BP 97 with dizziness [for VT] Last Assessment & Plan: BP is well controlled on current regimen of medicines which is tolerated well. 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 Takes his medication regularly though. He does some stationary bike riding recently. 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 Cardiac MRI shows normal LV size, shape, and function with mild myocardial fibrosis at the basal and mid inferoseptum at the RV insertion point. Carvedilol dose uptitrated to 37.5mg BID while Clonidine was reduced to 0.1mg BID & Atenolol stopped. Dual chamber ICD was implanted on 03/11/2012 for primary prevention. Post- implantation checks satisfactory. Being discharged today. F/u with device clinic in 6 weeks CAD (coronary artery disease), [employer] [place] [employer] coronary a rtery 03/06/2012 08/09/2021 Overview: Non obstructive single vessel ds Mid LAD 50% Ventricular tachycardia 02/28/2012 12/04/19 18 Overview: Exercise induced symptoms Reproduced during stress test Left heart catheterization on 03/01/2012 showed non-obstructive single-vessel CAD [50% mid-LAD]. Cardiac MRI shows normal EF with mild fibrosis. Carvedilol uptitrated. S/p dual chamber ICD. PMR (polymyalgia rheumatica) 02/01/201205/2017 Overview: On Prednisone 10mg/d Ct home dose Enthesopathy of unspecified site 12/21/2010 08/09/2021 Type 2 diabetes mellitus 12/01/2010 014 Overview: On Glargine 14 units, Glimepiride & Metformin No recent HbA1c Ct home regimen Accucheck AC/HS HbA1c 7 Somnolence 06/09/2009 07/05/2015 DIABETES MELLITUS ADULT ONSET 07/09/2007 Diabetic neuropathy, type II diabetes mellitus 03/03/2015 Overview: On Gabapentin Tobacco use disorder 11/10/2016 Overview: In remission Class 3 severe obesity with body mass index (BMI) of 40.0 to 44.9 in adult 10/06/2021 Last Assessment & Plan: He is very active the whole time and tries his best to eat well. On the downward trend to weight loss HTN (hypertension) 07/19/2017 Overview: On Clonidine,Atenolol, Lisinopril, Losartan Clonidine tapered & Atenolol stopped. Carvedilol up titrated to 50mg bid; decreased to 37.5mg bid due to relatively low systolic BP 97 with dizziness [for VT] Last Assessment & Plan: BP is well controlled on current regimen of medicines which is tolerated well. 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 Takes his medication regularly though. He does some stationary bike riding recently. 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 Cardiac MRI shows normal LV size, shape, and function with mild myocardial fibrosis at the basal and mid inferoseptum at the RV insertion point. Carvedilol dose uptitrated to 37.5mg BID while Clonidine was reduced to 0.1mg BID & Atenolol stopped. Dual chamber ICD was implanted on 03/11/2012 for primary prevention. Post- implantation checks satisfactory. Being discharged today. F/u with device clinic in 6 weeks CAD (coronary artery disease), [employer] coronary a rtery 03/06/2012 08/09/2021 Overview: Non obstructive single vessel ds Mid LAD 50% Ventricular tachycardia 02/28/2012 12/04/19 18 Overview: Exercise induced symptoms Reproduced during stress test Left heart catheterization on 03/01/2012 showed non-obstructive single-vessel CAD [50% mid-LAD]. Cardiac MRI shows normal EF with mild fibrosis. Carvedilol uptitrated. S/p dual chamber ICD. PMR (polymyalgia rheumatica) 02/01/201205/2017 Overview: On Prednisone 10mg/d Ct home dose Enthesopathy of unspecified site 12/21/2010 08/09/2021 Type 2 diabetes mellitus 12/01/2010 014 Overview: On Glargine 14 units, Glimepiride & Metformin No recent HbA1c Ct home regimen Accucheck AC/HS HbA1c 7 Somnolence 06/09/2009 07/05/2015 DIABETES MELLITUS ADULT ONSET 07/09/2007 Diabetic neuropathy, type II diabetes mellitus 03/03/2015 Overview: On Gabapentin Tobacco use disorder 11/10/2016 Overview: In remission Class 3 severe obesity with body mass index (BMI) of 40.0 to 44.9 in adult 10/06/2021 Last Assessment & Plan: He is very active the whole time and tries his best to eat well. On the downward trend to weight loss HTN (hypertension) 07/19/2017 Overview: On Clonidine,Atenolol, Lisinopril, Losartan Clonidine tapered & Atenolol stopped. Carvedilol up titrated to 50mg bid; decreased to 37.5mg bid due to relatively low systolic BP 97 with dizziness [for VT] Last Assessment & Plan: BP is well controlled on current regimen of medicines which is tolerated well. 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 Takes his medication regularly though. He does some stationary bike riding recently. 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 Cardiac MRI shows normal LV size, shape, and function with mild myocardial fibrosis at the basal and mid inferoseptum at the RV insertion point. Carvedilol dose uptitrated to 37.5mg BID while Clonidine was reduced to 0.1mg BID & Atenolol stopped. Dual chamber ICD was implanted on 03/11/2012 for primary prevention. Post- implantation checks satisfactory. Being discharged today. F/u with device clinic in 6 weeks CAD (coronary artery disease), [employer] coronary a rtery 03/06/2012 08/09/2021 Overview: Non obstructive single vessel ds Mid LAD 50% Ventricular tachycardia 02/28/2012 12/04/19 18 Overview: Exercise induced symptoms Reproduced during stress test Left heart catheterization on 03/01/2012 showed non-obstructive single-vessel CAD [50% mid-LAD]. Cardiac MRI shows normal EF with mild fibrosis. Carvedilol uptitrated. S/p dual chamber ICD. PMR (polymyalgia rheumatica) 02/01/201205/2017 Overview: On Prednisone 10mg/d Ct home dose Enthesopathy of unspecified site 12/21/2010 08/09/2021 Type 2 diabetes mellitus 12/01/2010 014 Overview: On Glargine 14 units, Glimepiride & Metformin No recent HbA1c Ct home regimen Accucheck AC/HS HbA1c 7 Somnolence 06/09/2009 07/05/2015 DIABETES MELLITUS ADULT ONSET 07/09/2007 Diabetic neuropathy, type II diabetes mellitus 03/03/2015 Overview: On Gabapentin Tobacco use disorder 11/10/2016 Overview: In remission Class 3 severe obesity with body mass index (BMI) of 40.0 to 44.9 in adult 10/06/2021 Last Assessment & Plan: He is very active the whole time and tries his best to eat well. On the downward trend to weight loss HTN (hypertension) 07/19/2017 Overview: On Clonidine,Atenolol, Lisinopril, Losartan Clonidine tapered & Atenolol stopped. Carvedilol up titrated to 50mg bid; decreased to 37.5mg bid due to relatively low systolic BP 97 with dizziness [for VT] Last Assessment & Plan: BP is well controlled on current regimen of medicines which is tolerated well. 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 Takes his medication regularly though. He does some stationary bike riding recently. 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 Cardiac MRI shows normal LV size, shape, and function with mild myocardial fibrosis at the basal and mid inferoseptum at the RV insertion point. Carvedilol dose uptitrated to 37.5mg BID while Clonidine was reduced to 0.1mg BID & Atenolol stopped. Dual chamber ICD was implanted on 03/11/2012 for primary prevention. Post- implantation checks satisfactory. Being discharged today. F/u with device clinic in 6 weeks CAD (coronary artery disease), [employer] coronary a rtery 03/06/2012 08/09/2021 Overview: Non obstructive single vessel ds Mid LAD 50% Ventricular tachycardia 02/28/2012 12/04/19 18 Overview: Exercise induced symptoms Reproduced during stress test Left heart catheterization on 03/01/2012 showed non-obstructive single-vessel CAD [50% mid-LAD]. Cardiac MRI shows normal EF with mild fibrosis. Carvedilol uptitrated. S/p dual chamber ICD. PMR (polymyalgia rheumatica) 02/01/201205/2017 Overview: On Prednisone 10mg/d Ct home dose Enthesopathy of unspecified site 12/21/2010 08/09/2021 Type 2 diabetes mellitus 12/01/2010 014 Overview: On Glargine 14 units, Glimepiride & Metformin No recent HbA1c Ct home regimen Accucheck AC/HS HbA1c 7 Somnolence 06/09/2009 07/05/2015 DIABETES MELLITUS ADULT ONSET 07/09/2007 Diabetic neuropathy, type II diabetes mellitus 03/03/2015 Overview: On Gabapentin Tobacco use disorder 11/10/2016 Overview: In remission Class 3 severe obesity with body mass index (BMI) of 40.0 to 44.9 in adult 10/06/2021 Last Assessment & Plan: He is very active the whole time and tries his best to eat well. On the downward trend to weight loss HTN (hypertension) 07/19/2017 Overview: On Clonidine,Atenolol, Lisinopril, Losartan Clonidine tapered & Atenolol stopped. Carvedilol up titrated to 50mg bid; decreased to 37.5mg bid due to relatively low systolic BP 97 with dizziness [for VT] Last Assessment & Plan: BP is well controlled on current regimen of medicines which is tolerated well. 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 Takes his medication regularly though. He does some stationary bike riding recently. 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 Cardiac MRI shows normal LV size, shape, and function with mild myocardial fibrosis at the basal and mid inferoseptum at the RV insertion point. Carvedilol dose uptitrated to 37.5mg BID while Clonidine was reduced to 0.1mg BID & Atenolol stopped. Dual chamber ICD was implanted on 03/11/2012 for primary prevention. Post- implantation checks satisfactory. Being discharged today. F/u with device clinic in 6 weeks CAD (coronary artery disease), [employer] coronary a rtery 03/06/2012 08/09/2021 Overview: Non obstructive single vessel ds Mid LAD 50% Ventricular tachycardia 02/28/2012 12/04/19 18 Overview: Exercise induced symptoms Reproduced during stress test Left heart catheterization on 03/01/2012 showed non-obstructive single-vessel CAD [50% mid-LAD]. Cardiac MRI shows normal EF with mild fibrosis. Carvedilol uptitrated. S/p dual chamber ICD. PMR (polymyalgia rheumatica) 02/01/201205/2017 Overview: On Prednisone 10mg/d Ct home dose Enthesopathy of unspecified site 12/21/2010 08/09/2021 Type 2 diabetes mellitus 12/01/2010 09/15/2 014 Overview: On Glargine 14 units, Glimepiride & Metformin No recent HbA1c Ct home regimen Accucheck AC/HS HbA1c 7 Somnolence 06/09/2009 07/05/2015 DIABETES MELLITUS ADULT ONSET 07/09/2007 Diabetic neuropathy, type II diabetes mellitus 03/03/2015 Overview: On Gabapentin Tobacco use disorder 11/10/2016 Overview: In remission Class 3 severe obesity with body mass index (BMI) of 40.0 to 44.9 in adult 10/06/2021 Last Assessment & Plan: He is very active the whole time and tries his best to eat well. On the downward trend to weight loss HTN (hypertension) 07/19/2017 Overview: On Clonidine,Atenolol, Lisinopril, Losartan Clonidine tapered & Atenolol stopped. Carvedilol up titrated to 50mg bid; decreased to 37.5mg bid due to relatively low systolic BP 97 with dizziness [for VT] Last Assessment & Plan: BP is well controlled on current regimen of medicines which is tolerated well. 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 Takes his medication regularly though. He does some stationary bike riding recently. 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 Cardiac MRI shows normal LV size, shape, and function with mild myocardial fibrosis at the basal and mid inferoseptum at the RV insertion point. Carvedilol dose uptitrated to 37.5mg BID while Clonidine was reduced to 0.1mg BID & Atenolol stopped. Dual chamber ICD was implanted on 03/11/2012 for primary prevention. Post- implantation checks satisfactory. Being discharged today. F/u with device clinic in 6 weeks CAD (coronary artery disease), [employer] coronary a rtery 03/06/2012 08/09/2021 Overview: Non obstructive single vessel ds Mid LAD 50% Ventricular tachycardia 02/28/2012 12/04/19 18 Overview: Exercise induced symptoms Reproduced during stress test Left heart catheterization on 03/01/2012 showed non-obstructive single-vessel CAD [50% mid-LAD]. Cardiac MRI shows normal EF with mild fibrosis. Carvedilol uptitrated. S/p dual chamber ICD. PMR (polymyalgia rheumatica) 02/01/201205/2017 Overview: On Prednisone 10mg/d Ct home dose Enthesopathy of unspecified site 12/21/2010 08/09/2021 Type 2 diabetes mellitus 12/01/2010 014 Overview: On Glargine 14 units, Glimepiride & Metformin No recent HbA1c Ct home regimen Accucheck AC/HS HbA1c 7 Somnolence 06/09/2009 07/05/2015 DIABETES MELLITUS ADULT ONSET 07/09/2007 Diabetic neuropathy, type II diabetes mellitus 03/03/2015 Overview: On Gabapentin Tobacco use disorder 11/10/2016 Overview: In remission Class 3 severe obesity with body mass index (BMI) of 40.0 to 44.9 in adult 10/06/2021 Last Assessment & Plan: He is very active the whole time and tries his best to eat well. On the downward trend to weight loss HTN (hypertension) 07/19/2017 Overview: On Clonidine,Atenolol, Lisinopril, Losartan Clonidine tapered & Atenolol stopped. Carvedilol up titrated to 50mg bid; decreased to 37.5mg bid due to relatively low systolic BP 97 with dizziness [for VT] Last Assessment & Plan: BP is well controlled on current regimen of medicines which is tolerated well. 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 Takes his medication regularly though. He does some stationary bike riding recently. 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 Cardiac MRI shows normal LV size, shape, and function with mild myocardial fibrosis at the basal and mid inferoseptum at the RV insertion point. Carvedilol dose uptitrated to 37.5mg BID while Clonidine was reduced to 0.1mg BID & Atenolol stopped. Dual chamber ICD was implanted on 03/11/2012 for primary prevention. Post- implantation checks satisfactory. Being discharged today. F/u with device clinic in 6 weeks CAD (coronary artery disease), [employer] [place] coronary a rtery 03/06/2012 08/09/2021 Overview: Non obstructive single vessel ds Mid LAD 50% Ventricular tachycardia 02/28/2012 12/04/19 18 Overview: Exercise induced symptoms Reproduced during stress test Left heart catheterization on 03/01/2012 showed non-obstructive single-vessel CAD [50% mid-LAD]. Cardiac MRI shows normal EF with mild fibrosis. Carvedilol uptitrated. S/p dual chamber ICD. PMR (polymyalgia rheumatica) 02/01/201205/2017 Overview: On Prednisone 10mg/d Ct home dose Enthesopathy of unspecified site 12/21/2010 08/09/2021 Type 2 diabetes mellitus 12/01/2010 014 Overview: On Glargine 14 units, Glimepiride & Metformin No recent HbA1c Ct home regimen Accucheck AC/HS HbA1c 7 Somnolence 06/09/2009 07/05/2015 DIABETES MELLITUS ADULT ONSET 07/09/2007 Diabetic neuropathy, type II diabetes mellitus 03/03/2015 Overview: On Gabapentin Tobacco use disorder 11/10/2016 Overview: In remission Class 3 severe obesity with body mass index (BMI) of 40.0 to 44.9 in adult 10/06/2021 Last Assessment & Plan: He is very active the whole time and tries his best to eat well. On the downward trend to weight loss HTN (hypertension) 07/19/2017 Overview: On Clonidine,Atenolol, Lisinopril, Losartan Clonidine tapered & Atenolol stopped. Carvedilol up titrated to 50mg bid; decreased to 37.5mg bid due to relatively low systolic BP 97 with dizziness [for VT] Last Assessment & Plan: BP is well controlled on current regimen of medicines which is tolerated well. 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 Takes his medication regularly though. He does some stationary bike riding recently. 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 Cardiac MRI shows normal LV size, shape, and function with mild myocardial fibrosis at the basal and mid inferoseptum at the RV insertion point. Carvedilol dose uptitrated to 37.5mg BID while Clonidine was reduced to 0.1mg BID & Atenolol stopped. Dual chamber ICD was implanted on 03/11/2012 for primary prevention. Post- implantation checks satisfactory. Being discharged today. F/u with device clinic in 6 weeks CAD (coronary artery disease), [employer] [place] [employer] coronary a rtery 03/06/2012 08/09/2021 Overview: Non obstructive single vessel ds Mid LAD 50% Ventricular tachycardia 02/28/2012 12/04/19 18 Overview: Exercise induced symptoms Reproduced during stress test Left heart catheterization on 03/01/2012 showed non-obstructive single-vessel CAD [50% mid-LAD]. Cardiac MRI shows normal EF with mild fibrosis. Carvedilol uptitrated. S/p dual chamber ICD. PMR (polymyalgia rheumatica) 02/01/201205/2017 Overview: On Prednisone 10mg/d Ct home dose Enthesopathy of unspecified site 12/21/2010 08/09/2021 Type 2 diabetes mellitus 12/01/2010 014 Overview: On Glargine 14 units, Glimepiride & Metformin No recent HbA1c Ct home regimen Accucheck AC/HS HbA1c 7 Somnolence 06/09/2009 07/05/2015 DIABETES MELLITUS ADULT ONSET 07/09/2007 Diabetic neuropathy, type II diabetes mellitus 03/03/2015 Overview: On Gabapentin Tobacco use disorder 11/10/2016 Overview: In remission Class 3 severe obesity with body mass index (BMI) of 40.0 to 44.9 in adult 10/06/2021 Last Assessment & Plan: He is very active the whole time and tries his best to eat well. On the downward trend to weight loss HTN (hypertension) 07/19/2017 Overview: On Clonidine,Atenolol, Lisinopril, Losartan Clonidine tapered & Atenolol stopped. Carvedilol up titrated to 50mg bid; decreased to 37.5mg bid due to relatively low systolic BP 97 with dizziness [for VT] Last Assessment & Plan: BP is well controlled on current regimen of medicines which is tolerated well. 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 Takes his medication regularly though. He does some stationary bike riding recently. 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 Cardiac MRI shows normal LV size, shape, and function with mild myocardial fibrosis at the basal and mid inferoseptum at the RV insertion point. Carvedilol dose uptitrated to 37.5mg BID while Clonidine was reduced to 0.1mg BID & Atenolol stopped. Dual chamber ICD was implanted on 03/11/2012 for primary prevention. Post- implantation checks satisfactory. Being discharged today. F/u with device clinic in 6 weeks CAD (coronary artery disease), [employer] [place] coronary a rtery 03/06/2012 08/09/2021 Overview: Non obstructive single vessel ds Mid LAD 50% Ventricular tachycardia 02/28/2012 12/04/19 18 Overview: Exercise induced symptoms Reproduced during stress test Left heart catheterization on 03/01/2012 showed non-obstructive single-vessel CAD [50% mid-LAD]. Cardiac MRI shows normal EF with mild fibrosis. Carvedilol uptitrated. S/p dual chamber ICD. PMR (polymyalgia rheumatica) 02/01/201205/2017 Overview: On Prednisone 10mg/d Ct home dose Enthesopathy of unspecified site 12/21/2010 08/09/2021 Type 2 diabetes mellitus 12/01/2010 014 Overview: On Glargine 14 units, Glimepiride & Metformin No recent HbA1c Ct home regimen Accucheck AC/HS HbA1c 7 Somnolence 06/09/2009 07/05/2015 DIABETES MELLITUS ADULT ONSET 07/09/2007 Diabetic neuropathy, type II diabetes mellitus 03/03/2015 Overview: On Gabapentin Tobacco use disorder 11/10/2016 Overview: In remission Class 3 severe obesity with body mass index (BMI) of 40.0 to 44.9 in adult 10/06/2021 Last Assessment & Plan: He is very active the whole time and tries his best to eat well. On the downward trend to weight loss HTN (hypertension) 07/19/2017 Overview: On Clonidine,Atenolol, Lisinopril, Losartan Clonidine tapered & Atenolol stopped. Carvedilol up titrated to 50mg bid; decreased to 37.5mg bid due to relatively low systolic BP 97 with dizziness [for VT] Last Assessment & Plan: BP is well controlled on current regimen of medicines which is tolerated well. 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 Takes his medication regularly though. He does some stationary bike riding recently. 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 Cardiac MRI shows normal LV size, shape, and function with mild myocardial fibrosis at the basal and mid inferoseptum at the RV insertion point. Carvedilol dose uptitrated to 37.5mg BID while Clonidine was reduced to 0.1mg BID & Atenolol stopped. Dual chamber ICD was implanted on 03/11/2012 for primary prevention. Post- implantation checks satisfactory. Being discharged today. F/u with device clinic in 6 weeks CAD (coronary artery disease), [employer] coronary a rtery 03/06/2012 08/09/2021 Overview: Non obstructive single vessel ds Mid LAD 50% Ventricular tachycardia 02/28/2012 12/04/19 18 Overview: Exercise induced symptoms Reproduced during stress test Left heart catheterization on 03/01/2012 showed non-obstructive single-vessel CAD [50% mid-LAD]. Cardiac MRI shows normal EF with mild fibrosis. Carvedilol uptitrated. S/p dual chamber ICD. PMR (polymyalgia rheumatica) 02/01/201205/2017 Overview: On Prednisone 10mg/d Ct home dose Enthesopathy of unspecified site 12/21/2010 08/09/2021 Type 2 diabetes mellitus 12/01/2010 014 Overview: On Glargine 14 units, Glimepiride & Metformin No recent HbA1c Ct home regimen Accucheck AC/HS HbA1c 7 Somnolence 06/09/2009 07/05/2015 DIABETES MELLITUS ADULT ONSET 07/09/2007 Diabetic neuropathy, type II diabetes mellitus 03/03/2015 Overview: On Gabapentin Tobacco use disorder 11/10/2016 Overview: In remission Class 3 severe obesity with body mass index (BMI) of 40.0 to 44.9 in adult 10/06/2021 Last Assessment & Plan: He is very active the whole time and tries his best to eat well. On the downward trend to weight loss HTN (hypertension) 07/19/2017 Overview: On Clonidine,Atenolol, Lisinopril, Losartan Clonidine tapered & Atenolol stopped. Carvedilol up titrated to 50mg bid; decreased to 37.5mg bid due to relatively low systolic BP 97 with dizziness [for VT] Last Assessment & Plan: BP is well controlled on current regimen of medicines which is tolerated well. 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 Takes his medication regularly though. He does some stationary bike riding recently. 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 Cardiac MRI shows normal LV size, shape, and function with mild myocardial fibrosis at the basal and mid inferoseptum at the RV insertion point. Carvedilol dose uptitrated to 37.5mg BID while Clonidine was reduced to 0.1mg BID & Atenolol stopped. Dual chamber ICD was implanted on 03/11/2012 for primary prevention. Post- implantation checks satisfactory. Being discharged today. F/u with device clinic in 6 weeks CAD (coronary artery disease), [employer] coronary a rtery 03/06/2012 08/09/2021 Overview: Non obstructive single vessel ds Mid LAD 50% Ventricular tachycardia 02/28/2012 12/04/19 18 Overview: Exercise induced symptoms Reproduced during stress test Left heart catheterization on 03/01/2012 showed non-obstructive single-vessel CAD [50% mid-LAD]. Cardiac MRI shows normal EF with mild fibrosis. Carvedilol uptitrated. S/p dual chamber ICD. PMR (polymyalgia rheumatica) 02/01/201205/2017 Overview: On Prednisone 10mg/d Ct home dose Enthesopathy of unspecified site 12/21/2010 08/09/2021 Type 2 diabetes mellitus 12/01/2010 014 Overview: On Glargine 14 units, Glimepiride & Metformin No recent HbA1c Ct home regimen Accucheck AC/HS HbA1c 7 Somnolence 06/09/2009 07/05/2015 DIABETES MELLITUS ADULT ONSET 07/09/2007 Diabetic neuropathy, type II diabetes mellitus 03/03/2015 Overview: On Gabapentin Tobacco use disorder 11/10/2016 Overview: In remission Class 3 severe obesity with body mass index (BMI) of 40.0 to 44.9 in adult 10/06/2021 Last Assessment & Plan: He is very active the whole time and tries his best to eat well. On the downward trend to weight loss HTN (hypertension) 07/19/2017 Overview: On Clonidine,Atenolol, Lisinopril, Losartan Clonidine tapered & Atenolol stopped. Carvedilol up titrated to 50mg bid; decreased to 37.5mg bid due to relatively low systolic BP 97 with dizziness [for VT] Last Assessment & Plan: BP is well controlled on current regimen of medicines which is tolerated well. 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 Takes his medication regularly though. He does some stationary bike riding recently. 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 Cardiac MRI shows normal LV size, shape, and function with mild myocardial fibrosis at the basal and mid inferoseptum at the RV insertion point. Carvedilol dose uptitrated to 37.5mg BID while Clonidine was reduced to 0.1mg BID & Atenolol stopped. Dual chamber ICD was implanted on 03/11/2012 for primary prevention. Post- implantation checks satisfactory. Being discharged today. F/u with device clinic in 6 weeks CAD (coronary artery disease), [employer] coronary a rtery 03/06/2012 08/09/2021 Overview: Non obstructive single vessel ds Mid LAD 50% Ventricular tachycardia 02/28/2012 12/04/19 18 Overview: Exercise induced symptoms Reproduced during stress test Left heart catheterization on 03/01/2012 showed non-obstructive single-vessel CAD [50% mid-LAD]. Cardiac MRI shows normal EF with mild fibrosis. Carvedilol uptitrated. S/p dual chamber ICD. PMR (polymyalgia rheumatica) 02/01/2012 06/ 05/2017 Overview: On Prednisone 10mg/d Ct home dose Enthesopathy of unspecified site 12/21/2010 08/09/2021 Type 2 diabetes mellitus 12/01/2010 014 Overview: On Glargine 14 units, Glimepiride & Metformin No recent HbA1c Ct home regimen Accucheck AC/HS HbA1c 7 Somnolence 06/09/2009 07/05/2015 DIABETES MELLITUS ADULT ONSET 07/09/2007 Diabetic neuropathy, type II diabetes mellitus 03/03/2015 Overview: On Gabapentin Tobacco use disorder 11/10/2016 Overview: In remission Class 3 severe obesity with body mass index (BMI) of 40.0 to 44.9 in adult 10/06/2021 Last Assessment & Plan: He is very active the whole time and tries his best to eat well. On the downward trend to weight loss HTN (hypertension) 07/19/2017 Overview: On Clonidine,Atenolol, Lisinopril, Losartan Clonidine tapered & Atenolol stopped. Carvedilol up titrated to 50mg bid; decreased to 37.5mg bid due to relatively low systolic BP 97 with dizziness [for VT] Last Assessment & Plan: BP is well controlled on current regimen of medicines which is tolerated well. 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 Takes his medication regularly though. He does some stationary bike riding recently. 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 Cardiac MRI shows normal LV size, shape, and function with mild myocardial fibrosis at the basal and mid inferoseptum at the RV insertion point. Carvedilol dose uptitrated to 37.5mg BID while Clonidine was reduced to 0.1mg BID & Atenolol stopped. Dual chamber ICD was implanted on 03/11/2012 for primary prevention. Post- implantation checks satisfactory. Being discharged today. F/u with device clinic in 6 weeks CAD (coronary artery disease), [employer] [place] [employer] coronary a rtery 03/06/2012 08/09/2021 Overview: Non obstructive single vessel ds Mid LAD 50% Ventricular tachycardia 02/28/2012 12/04/19 18 Overview: Exercise induced symptoms Reproduced during stress test Left heart catheterization on 03/01/2012 showed non-obstructive single-vessel CAD [50% mid-LAD]. Cardiac MRI shows normal EF with mild fibrosis. Carvedilol uptitrated. S/p dual chamber ICD. PMR (polymyalgia rheumatica) 02/01/201205/2017 Overview: On Prednisone 10mg/d Ct home dose Enthesopathy of unspecified site 12/21/2010 08/09/2021 Type 2 diabetes mellitus 12/01/2010 014 Overview: On Glargine 14 units, Glimepiride & Metformin No recent HbA1c Ct home regimen Accucheck AC/HS HbA1c 7 Somnolence 06/09/2009 07/05/2015 DIABETES MELLITUS ADULT ONSET 07/09/2007 Diabetic neuropathy, type II diabetes mellitus 03/03/2015 Overview: On Gabapentin Tobacco use disorder 11/10/2016 Overview: In remission Class 3 severe obesity with body mass index (BMI) of 40.0 to 44.9 in adult 10/06/2021 Last Assessment & Plan: He is very active the whole time and tries his best to eat well. On the downward trend to weight loss HTN (hypertension) 07/19/2017 Overview: On Clonidine,Atenolol, Lisinopril, Losartan Clonidine tapered & Atenolol stopped. Carvedilol up titrated to 50mg bid; decreased to 37.5mg bid due to relatively low systolic BP 97 with dizziness [for VT] Last Assessment & Plan: BP is well controlled on current regimen of medicines which is tolerated well. 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 Takes his medication regularly though. He does some stationary bike riding recently. 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 Cardiac MRI shows normal LV size, shape, and function with mild myocardial fibrosis at the basal and mid inferoseptum at the RV insertion point. Carvedilol dose uptitrated to 37.5mg BID while Clonidine was reduced to 0.1mg BID & Atenolol stopped. Dual chamber ICD was implanted on 03/11/2012 for primary prevention. Post- implantation checks satisfactory. Being discharged today. F/u with device clinic in 6 weeks CAD (coronary artery disease), [employer] [place] coronary a rtery 03/06/2012 08/09/2021 Overview: Non obstructive single vessel ds Mid LAD 50% Ventricular tachycardia 02/28/2012 12/04/19 18 Overview: Exercise induced symptoms Reproduced during stress test Left heart catheterization on 03/01/2012 showed non-obstructive single-vessel CAD [50% mid-LAD]. Cardiac MRI shows normal EF with mild fibrosis. Carvedilol uptitrated. S/p dual chamber ICD. PMR (polymyalgia rheumatica) 02/01/201205/2017 Overview: On Prednisone 10mg/d Ct home dose Enthesopathy of unspecified site 12/21/2010 08/09/2021 Type 2 diabetes mellitus 12/01/2010 014 Overview: On Glargine 14 units, Glimepiride & Metformin No recent HbA1c Ct home regimen Accucheck AC/HS HbA1c 7 Somnolence 06/09/2009 07/05/2015 DIABETES MELLITUS ADULT ONSET 07/09/2007 Diabetic neuropathy, type II diabetes mellitus 03/03/2015 Overview: On Gabapentin Tobacco use disorder 11/10/2016 Overview: In remission Class 3 severe obesity with body mass index (BMI) of 40.0 to 44.9 in adult 10/06/2021 Last Assessment & Plan: He is very active the whole time and tries his best to eat well. On the downward trend to weight loss HTN (hypertension) 07/19/2017 Overview: On Clonidine,Atenolol, Lisinopril, Losartan Clonidine tapered & Atenolol stopped. Carvedilol up titrated to 50mg bid; decreased to 37.5mg bid due to relatively low systolic BP 97 with dizziness [for VT] Last Assessment & Plan: BP is well controlled on current regimen of medicines which is tolerated well. 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 Takes his medication regularly though. He does some stationary bike riding recently. 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 Cardiac MRI shows normal LV size, shape, and function with mild myocardial fibrosis at the basal and mid inferoseptum at the RV insertion point. Carvedilol dose uptitrated to 37.5mg BID while Clonidine was reduced to 0.1mg BID & Atenolol stopped. Dual chamber ICD was implanted on 03/11/2012 for primary prevention. Post- implantation checks satisfactory. Being discharged today. F/u with device clinic in 6 weeks CAD (coronary artery disease), [employer] [place] [employer] coronary a rtery 03/06/2012 08/09/2021 Overview: Non obstructive single vessel ds Mid LAD 50% Ventricular tachycardia 02/28/2012 12/04/19 18 Overview: Exercise induced symptoms Reproduced during stress test Left heart catheterization on 03/01/2012 showed non-obstructive single-vessel CAD [50% mid-LAD]. Cardiac MRI shows normal EF with mild fibrosis. Carvedilol uptitrated. S/p dual chamber ICD. PMR (polymyalgia rheumatica) 02/01/201205/2017 Overview: On Prednisone 10mg/d Ct home dose Enthesopathy of unspecified site 12/21/2010 08/09/2021 Type 2 diabetes mellitus 12/01/2010 014 Overview: On Glargine 14 units, Glimepiride & Metformin No recent HbA1c Ct home regimen Accucheck AC/HS HbA1c 7 Somnolence 06/09/2009 07/05/2015 DIABETES MELLITUS ADULT ONSET 07/09/2007 Diabetic neuropathy, type II diabetes mellitus 03/03/2015 Overview: On Gabapentin Tobacco use disorder 11/10/2016 Overview: In remission Class 3 severe obesity with body mass index (BMI) of 40.0 to 44.9 in adult 10/06/2021 Last Assessment & Plan: He is very active the whole time and tries his best to eat well. On the downward trend to weight loss HTN (hypertension) 07/19/2017 Overview: On Clonidine,Atenolol, Lisinopril, Losartan Clonidine tapered & Atenolol stopped. Carvedilol up titrated to 50mg bid; decreased to 37.5mg bid due to relatively low systolic BP 97 with dizziness [for VT] Last Assessment & Plan: BP is well controlled on current regimen of medicines which is tolerated well. 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 Takes his medication regularly though. He does some stationary bike riding recently. 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 Cardiac MRI shows normal LV size, shape, and function with mild myocardial fibrosis at the basal and mid inferoseptum at the RV insertion point. Carvedilol dose uptitrated to 37.5mg BID while Clonidine was reduced to 0.1mg BID & Atenolol stopped. Dual chamber ICD was implanted on 03/11/2012 for primary prevention. Post- implantation checks satisfactory. Being discharged today. F/u with device clinic in 6 weeks CAD (coronary artery disease), [employer] [place] coronary a rtery 03/06/2012 08/09/2021 Overview: Non obstructive single vessel ds Mid LAD 50% Ventricular tachycardia 02/28/2012 12/04/19 18 Overview: Exercise induced symptoms Reproduced during stress test Left heart catheterization on 03/01/2012 showed non-obstructive single-vessel CAD [50% mid-LAD]. Cardiac MRI shows normal EF with mild fibrosis. Carvedilol uptitrated. S/p dual chamber ICD. PMR (polymyalgia rheumatica) 02/01/201205/2017 Overview: On Prednisone 10mg/d Ct home dose Enthesopathy of unspecified site 12/21/2010 08/09/2021 Type 2 diabetes mellitus 12/01/2010 014 Overview: On Glargine 14 units, Glimepiride & Metformin No recent HbA1c Ct home regimen Accucheck AC/HS HbA1c 7 Somnolence 06/09/2009 07/05/2015 DIABETES MELLITUS ADULT ONSET 07/09/2007 Diabetic neuropathy, type II diabetes mellitus 03/03/2015 Overview: On Gabapentin Tobacco use disorder 11/10/2016 Overview: In remission Class 3 severe obesity with body mass index (BMI) of 40.0 to 44.9 in adult 10/06/2021 Last Assessment & Plan: He is very active the whole time and tries his best to eat well. On the downward trend to weight loss HTN (hypertension) 07/19/2017 Overview: On Clonidine,Atenolol, Lisinopril, Losartan Clonidine tapered & Atenolol stopped. Carvedilol up titrated to 50mg bid; decreased to 37.5mg bid due to relatively low systolic BP 97 with dizziness [for VT] Last Assessment & Plan: BP is well controlled on current regimen of medicines which is tolerated well. 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 Takes his medication regularly though. He does some stationary bike riding recently. 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 Cardiac MRI shows normal LV size, shape, and function with mild myocardial fibrosis at the basal and mid inferoseptum at the RV insertion point. Carvedilol dose uptitrated to 37.5mg BID while Clonidine was reduced to 0.1mg BID & Atenolol stopped. Dual chamber ICD was implanted on 03/11/2012 for primary prevention. Post- implantation checks satisfactory. Being discharged today. F/u with device clinic in 6 weeks CAD (coronary artery disease ), [employer] [place] coronary artery 03/06/2012 08/09/2021 Overview: Non obstructive single vessel ds Mid LAD 50% Ventricular tachycardia 02/28/201211/09 Overview: Exercise induced symptoms Reproduced during stress test Left heart catheterization on 03/01/2012 showed non-obstructive single-vessel CAD [50% mid-LAD]. Cardiac MRI shows normal EF with mild fibrosis. Carvedilol uptitrated. S/p dual chamber ICD. PMR (polymyalgia rheumatica) 02/01/2012 02/16/2017 Overview: On Prednisone 10mg/d Ct home dose Enthesopathy of unspecified site 12/21/2010 08/09/2021 Type 2 diabetes mellitus 12/01/2010 Overview: On Glargine 14 units, Glimepiride & Metformin No recent HbA1c Ct home regimen Accucheck AC/HS HbA1c 7 Somnolence 06/09/2009 07/05/2015 DIABETES MELLITUS ADULT ONSET 07/09/2007 07/05/2015 Diabetic neuropathy, type II diabetes mellitus 03/03/2015 Overview: On Gabapentin Tobacco use disorder 017 Overview: In remission Class 3 severe obesity with body mass index (BMI) of 40.0 to 44.9 in adult Last Assessment & Plan: He is very active the whole time and tries his best to eat well. On the downward trend to weight loss HTN (hypertension) 7 Overview: On Clonidine,Atenolol, Lisinopril, Losartan Clonidine tapered & Atenolol stopped. Carvedilol up titrated to 50mg bid; decreased to 37.5mg bid due to relatively low systolic BP 97 with dizziness [for VT] Last Assessment & Plan: BP is well controlled on current regimen of medicines which is tolerated well. 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 Takes his medication regularly though. He does some stationary bike riding recently. 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 Cardiac MRI shows normal LV size, shape, and function with mild myocardial fibrosis at the basal and mid inferoseptum at the RV insertion point. Carvedilol dose uptitrated to 37.5mg BID while Clonidine was reduced to 0.1mg BID & Atenolol stopped. Dual chamber ICD was implanted on 03/11/2012 for primary prevention. Post- implantation checks satisfactory. Being discharged today. F/u with device clinic in 6 weeks CAD (coronary artery disease ), [place] [place] coronary artery 03/06/2012 08/09/2021 Overview: Non obstructive single vessel ds Mid LAD 50% Ventricular tachycardia 02/28/201211/09 Overview: Exercise induced symptoms Reproduced during stress test Left heart catheterization on 03/01/2012 showed non-obstructive single-vessel CAD [50% mid-LAD]. Cardiac MRI shows normal EF with mild fibrosis. Carvedilol uptitrated. S/p dual chamber ICD. PMR (polymyalgia rheumatica) 02/01/2012 02/16/2017 Overview: On Prednisone 10mg/d Ct home dose Enthesopathy of unspecified site 12/21/2010 08/09/2021 Type 2 diabetes mellitus 12/01/2010 Overview: On Glargine 14 units, Glimepiride & Metformin No recent HbA1c Ct home regimen Accucheck AC/HS HbA1c 7 Somnolence 06/09/2009 07/05/2015 DIABETES MELLITUS ADULT ONSET 07/09/2007 07/05/2015 Diabetic neuropathy, type II diabetes mellitus 03/03/2015 Overview: On Gabapentin Tobacco use disorder 017 Overview: In remission Class 3 severe obesity with body mass index (BMI) of 40.0 to 44.9 in adult Last Assessment & Plan: He is very active the whole time and tries his best to eat well. On the downward trend to weight loss HTN (hypertension) 7 Overview: On Clonidine,Atenolol, Lisinopril, Losartan Clonidine tapered & Atenolol stopped. Carvedilol up titrated to 50mg bid; decreased to 37.5mg bid due to relatively low systolic BP 97 with dizziness [for VT] Last Assessment & Plan: BP is well controlled on current regimen of medicines which is tolerated well. 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 Takes his medication regularly though. He does some stationary bike riding recently. 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 Cardiac MRI shows normal LV size, shape, and function with mild myocardial fibrosis at the basal and mid inferoseptum at the RV insertion point. Carvedilol dose uptitrated to 37.5mg BID while Clonidine was reduced to 0.1mg BID & Atenolol stopped. Dual chamber ICD was implanted on 03/11/2012 for primary prevention. Post- implantation checks satisfactory. Being discharged today. F/u with device clinic in 6 weeks CAD (coronary artery disease ), [employer] [place] coronary artery 03/06/2012 08/09/2021 Overview: Non obstructive single vessel ds Mid LAD 50% Ventricular tachycardia 02/28/201211/09 Overview: Exercise induced symptoms Reproduced during stress test Left heart catheterization on 03/01/2012 showed non-obstructive single-vessel CAD [50% mid-LAD]. Cardiac MRI shows normal EF with mild fibrosis. Carvedilol uptitrated. S/p dual chamber ICD. PMR (polymyalgia rheumatica) 02/01/2012 02/16/2017 Overview: On Prednisone 10mg/d Ct home dose Enthesopathy of unspecified site 12/21/2010 08/09/2021 Type 2 diabetes mellitus 12/01/2010 Overview: On Glargine 14 units, Glimepiride & Metformin No recent HbA1c Ct home regimen Accucheck AC/HS HbA1c 7 Somnolence 06/09/2009 07/05/2015 DIABETES MELLITUS ADULT ONSET 07/09/2007 07/05/2015 Diabetic neuropathy, type II diabetes mellitus 03/03/2015 Overview: On Gabapentin Tobacco use disorder 017 Overview: In remission Class 3 severe obesity with body mass index (BMI) of 40.0 to 44.9 in adult 2 Last Assessment & Plan: He is very active the whole time and tries his best to eat well. On the downward trend to weight loss HTN (hypertension) 7 Overview: On Clonidine,Atenolol, Lisinopril, Losartan Clonidine tapered & Atenolol stopped. Carvedilol up titrated to 50mg bid; decreased to 37.5mg bid due to relatively low systolic BP 97 with dizziness [for VT] Last Assessment & Plan: BP is well controlled on current regimen of medicines which is tolerated well. 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 Takes his medication regularly though. He does some stationary bike riding recently. 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 Cardiac MRI shows normal LV size, shape, and function with mild myocardial fibrosis at the basal and mid inferoseptum at the RV insertion point. Carvedilol dose uptitrated to 37.5mg BID while Clonidine was reduced to 0.1mg BID & Atenolol stopped. Dual chamber ICD was implanted on 03/11/2012 for primary prevention. Post- implantation checks satisfactory. Being discharged today. F/u with device clinic in 6 weeks CAD (coronary artery disease ), [employer] [place] coronary artery 03/06/2012 08/09/2021 Overview: Non obstructive single vessel ds Mid LAD 50% Ventricular tachycardia 02/28/201211/09 Overview: Exercise induced symptoms Reproduced during stress test Left heart catheterization on 03/01/2012 showed non-obstructive single-vessel CAD [50% mid-LAD]. Cardiac MRI shows normal EF with mild fibrosis. Carvedilol uptitrated. S/p dual chamber ICD. PMR (polymyalgia rheumatica) 02/01/2012 02/16/2017 Overview: On Prednisone 10mg/d Ct home dose Enthesopathy of unspecified site 12/21/2010 08/09/2021 Type 2 diabetes mellitus 12/01/2010 Overview: On Glargine 14 units, Glimepiride & Metformin No recent HbA1c Ct home regimen Accucheck AC/HS HbA1c 7 Somnolence 06/09/2009 07/05/2015 DIABETES MELLITUS ADULT ONSET 07/09/2007 07/05/2015 Diabetic neuropathy, type II diabetes mellitus 03/03/2015 Overview: On Gabapentin Tobacco use disorder 017 Overview: In remission Class 3 severe obesity with body mass index (BMI) of 40.0 to 44.9 in adult Last Assessment & Plan: He is very active the whole time and tries his best to eat well. On the downward trend to weight loss HTN (hypertension) 7 Overview: On Clonidine,Atenolol, Lisinopril, Losartan Clonidine tapered & Atenolol stopped. Carvedilol up titrated to 50mg bid; decreased to 37.5mg bid due to relatively low systolic BP 97 with dizziness [for VT] Last Assessment & Plan: BP is well controlled on current regimen of medicines which is tolerated well. 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 Takes his medication regularly though. He does some stationary bike riding recently. 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 Cardiac MRI shows normal LV size, shape, and function with mild myocardial fibrosis at the basal and mid inferoseptum at the RV insertion point. Carvedilol dose uptitrated to 37.5mg BID while Clonidine was reduced to 0.1mg BID & Atenolol stopped. Dual chamber ICD was implanted on 03/11/2012 for primary prevention. Post- implantation checks satisfactory. Being discharged today. F/u with device clinic in 6 weeks CAD (coronary artery disease ), [employer] [place] coronary artery 03/06/2012 08/09/2021 Overview: Non obstructive single vessel ds Mid LAD 50% Ventricular tachycardia 02/28/201211/09 Overview: Exercise induced symptoms Reproduced during stress test Left heart catheterization on 03/01/2012 showed non-obstructive single-vessel CAD [50% mid-LAD]. Cardiac MRI shows normal EF with mild fibrosis. Carvedilol uptitrated. S/p dual chamber ICD. PMR (polymyalgia rheumatica) 02/01/2012 02/16/2017 Overview: On Prednisone 10mg/d Ct home dose Enthesopathy of unspecified site 12/21/2010 08/09/2021 Type 2 diabetes mellitus 12/01/2010 Overview: On Glargine 14 units, Glimepiride & Metformin No recent HbA1c Ct home regimen Accucheck AC/HS HbA1c 7 Somnolence 06/09/2009 07/05/2015 DIABETES MELLITUS ADULT ONSET 07/09/2007 07/05/2015 Diabetic neuropathy, type II diabetes mellitus 03/03/2015 Overview: On Gabapentin Tobacco use disorder 017 Overview: In remission Class 3 severe obesity with body mass index (BMI) of 40.0 to 44.9 in adult Last Assessment & Plan: He is very active the whole time and tries his best to eat well. On the downward trend to weight loss HTN (hypertension) 7 Overview: On Clonidine,Atenolol, Lisinopril, Losartan Clonidine tapered & Atenolol stopped. Carvedilol up titrated to 50mg bid; decreased to 37.5mg bid due to relatively low systolic BP 97 with dizziness [for VT] Last Assessment & Plan: BP is well controlled on current regimen of medicines which is tolerated well. 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 Takes his medication regularly though. He does some stationary bike riding recently. 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 Cardiac MRI shows normal LV size, shape, and function with mild myocardial fibrosis at the basal and mid inferoseptum at the RV insertion point. Carvedilol dose uptitrated to 37.5mg BID while Clonidine was reduced to 0.1mg BID & Atenolol stopped. Dual chamber ICD was implanted on 03/11/2012 for primary prevention. Post- implantation checks satisfactory. Being discharged today. F/u with device clinic in 6 weeks CAD (coronary artery disease ), [place] [place] coronary artery 03/06/2012 08/09/2021 Overview: Non obstructive single vessel ds Mid LAD 50% Ventricular tachycardia 02/28/201211/09 Overview: Exercise induced symptoms Reproduced during stress test Left heart catheterization on 03/01/2012 showed non-obstructive single-vessel CAD [50% mid-LAD]. Cardiac MRI shows normal EF with mild fibrosis. Carvedilol uptitrated. S/p dual chamber ICD. PMR (polymyalgia rheumatica) 02/01/2012 02/16/2017 Overview: On Prednisone 10mg/d Ct home dose Enthesopathy of unspecified site 12/21/2010 08/09/2021 Type 2 diabetes mellitus 12/01/2010 Overview: On Glargine 14 units, Glimepiride & Metformin No recent HbA1c Ct home regimen Accucheck AC/HS HbA1c 7 Somnolence 06/09/2009 07/05/2015 DIABETES MELLITUS ADULT ONSET 07/09/2007 07/05/2015 Diabetic neuropathy, type II diabetes mellitus 03/03/2015 Overview: On Gabapentin Tobacco use disorder 017 Overview: In remission Class 3 severe obesity with body mass index (BMI) of 40.0 to 44.9 in adult 2 Last Assessment & Plan: He is very active the whole time and tries his best to eat well. On the downward trend to weight loss HTN (hypertension) 7 Overview: On Clonidine,Atenolol, Lisinopril, Losartan Clonidine tapered & Atenolol stopped. Carvedilol up titrated to 50mg bid; decreased to 37.5mg bid due to relatively low systolic BP 97 with dizziness [for VT] Last Assessment & Plan: BP is well controlled on current regimen of medicines which is tolerated well. 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 Takes his medication regularly though. He does some stationary bike riding recently. 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 Cardiac MRI shows normal LV size, shape, and function with mild myocardial fibrosis at the basal and mid inferoseptum at the RV insertion point. Carvedilol dose uptitrated to 37.5mg BID while Clonidine was reduced to 0.1mg BID & Atenolol stopped. Dual chamber ICD was implanted on 03/11/2012 for primary prevention. Post- implantation checks satisfactory. Being discharged today. F/u with device clinic in 6 weeks CAD (coronary artery disease ), [place] coronary artery 03/06/2012 08/09/2021 Overview: Non obstructive single vessel ds Mid LAD 50% Ventricular tachycardia 02/28/201211/09 Overview: Exercise induced symptoms Reproduced during stress test Left heart catheterization on 03/01/2012 showed non-obstructive single-vessel CAD [50% mid-LAD]. Cardiac MRI shows normal EF with mild fibrosis. Carvedilol uptitrated. S/p dual chamber ICD. PMR (polymyalgia rheumatica) 02/01/2012 02/16/2017 Overview: On Prednisone 10mg/d Ct home dose Enthesopathy of unspecified site 12/21/2010 08/09/2021 Type 2 diabetes mellitus 12/01/2010 Overview: On Glargine 14 units, Glimepiride & Metformin No recent HbA1c Ct home regimen Accucheck AC/HS HbA1c 7 Somnolence 06/09/2009 07/05/2015 DIABETES MELLITUS ADULT ONSET 07/09/2007 07/05/2015 Diabetic neuropathy, type II diabetes mellitus 03/03/2015 Overview: On Gabapentin Tobacco use disorder 017 Overview: In remission HTN (hypertension) 7 Overview: On Clonidine,Atenolol, Lisinopril, Losartan Clonidine tapered & Atenolol stopped. Carvedilol up titrated to 50mg bid; decreased to 37.5mg bid due to relatively low systolic BP 97 with dizziness [for VT] Last Assessment & Plan: BP is well controlled on current regimen of medicines which is tolerated well. 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 Takes his medication regularly though. He does some stationary bike riding recently. 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 Cardiac MRI shows normal LV size, shape, and function with mild myocardial fibrosis at the basal and mid inferoseptum at the RV insertion point. Carvedilol dose uptitrated to 37.5mg BID while Clonidine was reduced to 0.1mg BID & Atenolol stopped. Dual chamber ICD was implanted on 03/11/2012 for primary prevention. Post- implantation checks satisfactory. Being discharged today. F/u with device clinic in 6 weeks CAD (coronary artery disease ), [place] coronary artery 03/06/2012 08/09/2021 Overview: Non obstructive single vessel ds Mid LAD 50% Ventricular tachycardia 02/28/201211/09 Overview: Exercise induced symptoms Reproduced during stress test Left heart catheterization on 03/01/2012 showed non-obstructive single-vessel CAD [50% mid-LAD]. Cardiac MRI shows normal EF with mild fibrosis. Carvedilol uptitrated. S/p dual chamber ICD. PMR (polymyalgia rheumatica) 02/01/2012 02/16/2017 Overview: On Prednisone 10mg/d Ct home dose Enthesopathy of unspecified site 12/21/2010 08/09/2021 Type 2 diabetes mellitus 12/01/2010 Overview: On Glargine 14 units, Glimepiride & Metformin No recent HbA1c Ct home regimen Accucheck AC/HS HbA1c 7 Somnolence 06/09/2009 07/05/2015 DIABETES MELLITUS ADULT ONSET 07/09/2007 07/05/2015 Diabetic neuropathy, type II diabetes mellitus 03/03/2015 Overview: On Gabapentin Tobacco use disorder 017 Overview: In remission HTN (hypertension) 7 Overview: On Clonidine,Atenolol, Lisinopril, Losartan Clonidine tapered & Atenolol stopped. Carvedilol up titrated to 50mg bid; decreased to 37.5mg bid due to relatively low systolic BP 97 with dizziness [for VT] Last Assessment & Plan: BP is well controlled on current regimen of medicines which is tolerated well. 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 Takes his medication regularly though. He does some stationary bike riding recently. 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 Cardiac MRI shows normal LV size, shape, and function with mild myocardial fibrosis at the basal and mid inferoseptum at the RV insertion point. Carvedilol dose uptitrated to 37.5mg BID while Clonidine was reduced to 0.1mg BID & Atenolol stopped. Dual chamber ICD was implanted on 03/11/2012 for primary prevention. Post- implantation checks satisfactory. Being discharged today. F/u with device clinic in 6 weeks CAD (coronary artery disease ), [place] coronary artery 03/06/2012 08/09/2021 Overview: Non obstructive single vessel ds Mid LAD 50% Ventricular tachycardia 02/28/201211/09 Overview: Exercise induced symptoms Reproduced during stress test Left heart catheterization on 03/01/2012 showed non-obstructive single-vessel CAD [50% mid-LAD]. Cardiac MRI shows normal EF with mild fibrosis. Carvedilol uptitrated. S/p dual chamber ICD. PMR (polymyalgia rheumatica) 02/01/2012 02/16/2017 Overview: On Prednisone 10mg/d Ct home dose Enthesopathy of unspecified site 12/21/2010 08/09/2021 Type 2 diabetes mellitus 12/01/2010 Overview: On Glargine 14 units, Glimepiride & Metformin No recent HbA1c Ct home regimen Accucheck AC/HS HbA1c 7 Somnolence 06/09/2009 07/05/2015 DIABETES MELLITUS ADULT ONSET 07/09/2007 07/05/2015 Diabetic neuropathy, type II diabetes mellitus 03/03/2015 Overview: On Gabapentin Tobacco use disorder 017 Overview: In remission HTN (hypertension) 7 Overview: On Clonidine,Atenolol, Lisinopril, Losartan Clonidine tapered & Atenolol stopped. Carvedilol up titrated to 50mg bid; decreased to 37.5mg bid due to relatively low systolic BP 97 with dizziness [for VT] Last Assessment & Plan: BP is well controlled on current regimen of medicines which is tolerated well. 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 Takes his medication regularly though. He does some stationary bike riding recently. 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 Cardiac MRI shows normal LV size, shape, and function with mild myocardial fibrosis at the basal and mid inferoseptum at the RV insertion point. Carvedilol dose uptitrated to 37.5mg BID while Clonidine was reduced to 0.1mg BID & Atenolol stopped. Dual chamber ICD was implanted on 03/11/2012 for primary prevention. Post- implantation checks satisfactory. Being discharged today. F/u with device clinic in 6 weeks CAD (coronary artery disease ), [place] coronary artery 03/06/2012 08/09/2021 Overview: Non obstructive single vessel ds Mid LAD 50% Ventricular tachycardia 02/28/201211/09 Overview: Exercise induced symptoms Reproduced during stress test Left heart catheterization on 03/01/2012 showed non-obstructive single-vessel CAD [50% mid-LAD]. Cardiac MRI shows normal EF with mild fibrosis. Carvedilol uptitrated. S/p dual chamber ICD. PMR (polymyalgia rheumatica) 02/01/2012 02/16/2017 Overview: On Prednisone 10mg/d Ct home dose Enthesopathy of unspecified site 12/21/2010 08/09/2021 Type 2 diabetes mellitus 12/01/2010 Overview: On Glargine 14 units, Glimepiride & Metformin No recent HbA1c Ct home regimen Accucheck AC/HS HbA1c 7 Somnolence 06/09/2009 07/05/2015 DIABETES MELLITUS ADULT ONSET 07/09/2007 07/05/2015 Diabetic neuropathy, type II diabetes mellitus 03/03/2015 Overview: On Gabapentin Tobacco use disorder 017 Overview: In remission HTN (hypertension) 7 Overview: On Clonidine,Atenolol, Lisinopril, Losartan Clonidine tapered & Atenolol stopped. Carvedilol up titrated to 50mg bid; decreased to 37.5mg bid due to relatively low systolic BP 97 with dizziness [for VT] Last Assessment & Plan: BP is well controlled on current regimen of medicines which is tolerated well. 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 Takes his medication regularly though. He does some stationary bike riding recently. 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 Cardiac MRI shows normal LV size, shape, and function with mild myocardial fibrosis at the basal and mid inferoseptum at the RV insertion point. Carvedilol dose uptitrated to 37.5mg BID while Clonidine was reduced to 0.1mg BID & Atenolol stopped. Dual chamber ICD was implanted on 03/11/2012 for primary prevention. Post- implantation checks satisfactory. Being discharged today. F/u with device clinic in 6 weeks CAD (coronary artery disease ), [employer] coronary artery 03/06/2012 08/09/2021 Overview: Non obstructive single vessel ds Mid LAD 50% Ventricular tachycardia 02/28/201211/09 Overview: Exercise induced symptoms Reproduced during stress test Left heart catheterization on 03/01/2012 showed non-obstructive single-vessel CAD [50% mid-LAD]. Cardiac MRI shows normal EF with mild fibrosis. Carvedilol uptitrated. S/p dual chamber ICD. PMR (polymyalgia rheumatica) 02/01/2012 02/16/2017 Overview: On Prednisone 10mg/d Ct home dose Enthesopathy of unspecified site 12/21/2010 08/09/2021 Type 2 diabetes mellitus 12/01/2010 Overview: On Glargine 14 units, Glimepiride & Metformin No recent HbA1c Ct home regimen Accucheck AC/HS HbA1c 7 Somnolence 06/09/2009 07/05/2015 DIABETES MELLITUS ADULT ONSET 07/09/2007 07/05/2015 Diabetic neuropathy, type II diabetes mellitus 03/03/2015 Overview: On Gabapentin Tobacco use disorder 017 Overview: In remission HTN (hypertension) 7 Overview: On Clonidine,Atenolol, Lisinopril, Losartan Clonidine tapered & Atenolol stopped. Carvedilol up titrated to 50mg bid; decreased to 37.5mg bid due to relatively low systolic BP 97 with dizziness [for VT] Last Assessment & Plan: BP is well controlled on current regimen of medicines which is tolerated well. 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 Takes his medication regularly though. He does some stationary bike riding recently. 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 Cardiac MRI shows normal LV size, shape, and function with mild myocardial fibrosis at the basal and mid inferoseptum at the RV insertion point. Carvedilol dose uptitrated to 37.5mg BID while Clonidine was reduced to 0.1mg BID & Atenolol stopped. Dual chamber ICD was implanted on 03/11/2012 for primary prevention. Post- implantation checks satisfactory. Being discharged today. F/u with device clinic in 6 weeks CAD (coronary artery disease ), [employer] coronary artery 03/06/2012 08/09/2021 Overview: Non obstructive single vessel ds Mid LAD 50% Ventricular tachycardia 02/28/201211/09 Overview: Exercise induced symptoms Reproduced during stress test Left heart catheterization on 03/01/2012 showed non-obstructive single-vessel CAD [50% mid-LAD]. Cardiac MRI shows normal EF with mild fibrosis. Carvedilol uptitrated. S/p dual chamber ICD. PMR (polymyalgia rheumatica) 02/01/2012 02/16/2017 Overview: On Prednisone 10mg/d Ct home dose Enthesopathy of unspecified site 12/21/2010 08/09/2021 Type 2 diabetes mellitus 12/01/2010 Overview: On Glargine 14 units, Glimepiride & Metformin No recent HbA1c Ct home regimen Accucheck AC/HS HbA1c 7 Somnolence 06/09/2009 07/05/2015 DIABETES MELLITUS ADULT ONSET 07/09/2007 07/05/2015 Diabetic neuropathy, type II diabetes mellitus 03/03/2015 Overview: On Gabapentin Tobacco use disorder 017 Overview: In remission HTN (hypertension) 7 Overview: On Clonidine,Atenolol, Lisinopril, Losartan Clonidine tapered & Atenolol stopped. Carvedilol up titrated to 50mg bid; decreased to 37.5mg bid due to relatively low systolic BP 97 with dizziness [for VT] Last Assessment & Plan: BP is well controlled on current regimen of medicines which is tolerated well. 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 Takes his medication regularly though. He does some stationary bike riding recently. 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 Cardiac MRI shows normal LV size, shape, and function with mild myocardial fibrosis at the basal and mid inferoseptum at the RV insertion point. Carvedilol dose uptitrated to 37.5mg BID while Clonidine was reduced to 0.1mg BID & Atenolol stopped. Dual chamber ICD was implanted on 03/11/2012 for primary prevention. Post- implantation checks satisfactory. Being discharged today. F/u with device clinic in 6 weeks CAD (coronary artery disease ), [place] coronary artery 03/06/2012 08/09/2021 Overview: Non obstructive single vessel ds Mid LAD 50% Ventricular tachycardia 02/28/2012/02/2018 Overview: Exercise induced symptoms Reproduced during stress test Left heart catheterization on 03/01/2012 showed non-obstructive single-vessel CAD [50% mid-LAD]. Cardiac MRI shows normal EF with mild fibrosis. Carvedilol uptitrated. S/p dual chamber ICD. PMR (polymyalgia rheumatica) 02/01/2012 02/16/2017 Overview: On Prednisone 10mg/d Ct home dose Enthesopathy of unspecified site 12/21/2010 08/09/2021 Type 2 diabetes mellitus 12/01/2010 Overview: On Glargine 14 units, Glimepiride & Metformin No recent HbA1c Ct home regimen Accucheck AC/HS HbA1c 7 Somnolence 06/09/2009 07/05/2015 DIABETES MELLITUS ADULT ONSET 07/09/2007 07/05/2015 Diabetic neuropathy, type II diabetes mellitus 03/03/2015 Overview: On Gabapentin Tobacco use disorder 017 Overview: In remission HTN (hypertension) 7 Overview: On Clonidine,Atenolol, Lisinopril, Losartan Clonidine tapered & Atenolol stopped. Carvedilol up titrated to 50mg bid; decreased to 37.5mg bid due to relatively low systolic BP 97 with dizziness [for VT] Last Assessment & Plan: BP is well controlled on current regimen of medicines which is tolerated well. 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 Takes his medication regularly though. He does some stationary bike riding recently. 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 Cardiac MRI shows normal LV size, shape, and function with mild myocardial fibrosis at the basal and mid inferoseptum at the RV insertion point. Carvedilol dose uptitrated to 37.5mg BID while Clonidine was reduced to 0.1mg BID & Atenolol stopped. Dual chamber ICD was implanted on 03/11/2012 for primary prevention. Post- implantation checks satisfactory. Being discharged today. F/u with device clinic in 6 weeks CAD (coronary artery disease ), [place] coronary artery 03/06/2012 08/09/2021 Overview: Non obstructive single vessel ds Mid LAD 50% Ventricular tachycardia 02/28/201211/09 Overview: Exercise induced symptoms Reproduced during stress test Left heart catheterization on 03/01/2012 showed non-obstructive single-vessel CAD [50% mid-LAD]. Cardiac MRI shows normal EF with mild fibrosis. Carvedilol uptitrated. S/p dual chamber ICD. PMR (polymyalgia rheumatica) 02/01/2012 02/16/2017 Overview: On Prednisone 10mg/d Ct home dose Enthesopathy of unspecified site 12/21/2010 08/09/2021 Type 2 diabetes mellitus 12/01/2010 Overview: On Glargine 14 units, Glimepiride & Metformin No recent HbA1c Ct home regimen Accucheck AC/HS HbA1c 7 Somnolence 06/09/2009 07/05/2015 DIABETES MELLITUS ADULT ONSET 07/09/2007 07/05/2015 Diabetic neuropathy, type II diabetes mellitus 03/03/2015 Overview: On Gabapentin Tobacco use disorder 017 Overview: In remission HTN (hypertension) 7 Overview: On Clonidine,Atenolol, Lisinopril, Losartan Clonidine tapered & Atenolol stopped. Carvedilol up titrated to 50mg bid; decreased to 37.5mg bid due to relatively low systolic BP 97 with dizziness [for VT] Last Assessment & Plan: BP is well controlled on current regimen of medicines which is tolerated well. 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 Takes his medication regularly though. He does some stationary bike riding recently. 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 Cardiac MRI shows normal LV size, shape, and function with mild myocardial fibrosis at the basal and mid inferoseptum at the RV insertion point. Carvedilol dose uptitrated to 37.5mg BID while Clonidine was reduced to 0.1mg BID & Atenolol stopped. Dual chamber ICD was implanted on 03/11/2012 for primary prevention. Post- implantation checks satisfactory. Being discharged today. F/u with device clinic in 6 weeks CAD (coronary artery disease ), [place] coronary artery 03/06/2012 08/09/2021 Overview: Non obstructive single vessel ds Mid LAD 50% Ventricular tachycardia 02/28/201211/09 Overview: Exercise induced symptoms Reproduced during stress test Left heart catheterization on 03/01/2012 showed non-obstructive single-vessel CAD [50% mid-LAD]. Cardiac MRI shows normal EF with mild fibrosis. Carvedilol uptitrated. S/p dual chamber ICD. PMR (polymyalgia rheumatica) 02/01/2012 02/16/2017 Overview: On Prednisone 10mg/d Ct home dose Enthesopathy of unspecified site 12/21/2010 08/09/2021 Type 2 diabetes mellitus 12/01/2010 Overview: On Glargine 14 units, Glimepiride & Metformin No recent HbA1c Ct home regimen Accucheck AC/HS HbA1c 7 Somnolence 06/09/2009 07/05/2015 DIABETES MELLITUS ADULT ONSET 07/09/2007 07/05/2015 Diabetic neuropathy, type II diabetes mellitus 03/03/2015 Overview: On Gabapentin Tobacco use disorder 017 Overview: In remission HTN (hypertension) 7 Overview: On Clonidine,Atenolol, Lisinopril, Losartan Clonidine tapered & Atenolol stopped. Carvedilol up titrated to 50mg bid; decreased to 37.5mg bid due to relatively low systolic BP 97 with dizziness [for VT] Last Assessment & Plan: BP is well controlled on current regimen of medicines which is tolerated well. 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 Takes his medication regularly though. He does some stationary bike riding recently. 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 Cardiac MRI shows normal LV size, shape, and function with mild myocardial fibrosis at the basal and mid inferoseptum at the RV insertion point. Carvedilol dose uptitrated to 37.5mg BID while Clonidine was reduced to 0.1mg BID & Atenolol stopped. Dual chamber ICD was implanted on 03/11/2012 for primary prevention. Post- implantation checks satisfactory. Being discharged today. F/u with device clinic in 6 weeks CAD (coronary artery disease ), [place] coronary artery 03/06/2012 08/09/2021 Overview: Non obstructive single vessel ds Mid LAD 50% Ventricular tachycardia 02/28/201211/09 Overview: Exercise induced symptoms Reproduced during stress test Left heart catheterization on 03/01/2012 showed non-obstructive single-vessel CAD [50% mid-LAD]. Cardiac MRI shows normal EF with mild fibrosis. Carvedilol uptitrated. S/p dual chamber ICD. PMR (polymyalgia rheumatica) 02/01/2012 02/16/2017 Overview: On Prednisone 10mg/d Ct home dose Enthesopathy of unspecified site 12/21/2010 08/09/2021 Type 2 diabetes mellitus 12/01/2010 Overview: On Glargine 14 units, Glimepiride & Metformin No recent HbA1c Ct home regimen Accucheck AC/HS HbA1c 7 Somnolence 06/09/2009 07/05/2015 DIABETES MELLITUS ADULT ONSET 07/09/2007 07/05/2015 Diabetic neuropathy, type II diabetes mellitus 03/03/2015 Overview: On Gabapentin Tobacco use disorder 017 Overview: In remission HTN (hypertension) 7 Overview: On Clonidine,Atenolol, Lisinopril, Losartan Clonidine tapered & Atenolol stopped. Carvedilol up titrated to 50mg bid; decreased to 37.5mg bid due to relatively low systolic BP 97 with dizziness [for VT] Last Assessment & Plan: BP is well controlled on current regimen of medicines which is tolerated well. 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 Takes his medication regularly though. He does some stationary bike riding recently. 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 Cardiac MRI shows normal LV size, shape, and function with mild myocardial fibrosis at the basal and mid inferoseptum at the RV insertion point. Carvedilol dose uptitrated to 37.5mg BID while Clonidine was reduced to 0.1mg BID & Atenolol stopped. Dual chamber ICD was implanted on 03/11/2012 for primary prevention. Post- implantation checks satisfactory. Being discharged today. F/u with device clinic in 6 weeks CAD (coronary artery disease ), [place] coronary artery 03/06/2012 08/09/2021 Overview: Non obstructive single vessel ds Mid LAD 50% Ventricular tachycardia 02/28/201211/09 Overview: Exercise induced symptoms Reproduced during stress test Left heart catheterization on 03/01/2012 showed non-obstructive single-vessel CAD [50% mid-LAD]. Cardiac MRI shows normal EF with mild fibrosis. Carvedilol uptitrated. S/p dual chamber ICD. PMR (polymyalgia rheumatica) 02/01/2012 02/16/2017 Overview: On Prednisone 10mg/d Ct home dose Enthesopathy of unspecified site 12/21/2010 08/09/2021 Type 2 diabetes mellitus 12/01/2010 Overview: On Glargine 14 units, Glimepiride & Metformin No recent HbA1c Ct home regimen Accucheck AC/HS HbA1c 7 Somnolence 06/09/2009 07/05/2015 DIABETES MELLITUS ADULT ONSET 07/09/2007 07/05/2015 Diabetic neuropathy, type II diabetes mellitus 03/03/2015 Overview: On Gabapentin Tobacco use disorder 017 Overview: In remission HTN (hypertension) 7 Overview: On Clonidine,Atenolol, Lisinopril, Losartan Clonidine tapered & Atenolol stopped. Carvedilol up titrated to 50mg bid; decreased to 37.5mg bid due to relatively low systolic BP 97 with dizziness [for VT] Last Assessment & Plan: BP is well controlled on current regimen of medicines which is tolerated well. 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 Takes his medication regularly though. He does some stationary bike riding recently. 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 Cardiac MRI shows normal LV size, shape, and function with mild myocardial fibrosis at the basal and mid inferoseptum at the RV insertion point. Carvedilol dose uptitrated to 37.5mg BID while Clonidine was reduced to 0.1mg BID & Atenolol stopped. Dual chamber ICD was implanted on 03/11/2012 for primary prevention. Post- implantation checks satisfactory. Being discharged today. F/u with device clinic in 6 weeks CAD (coronary artery disease ), [place] coronary artery 03/06/2012 08/09/2021 Overview: Non obstructive single vessel ds Mid LAD 50% Ventricular tachycardia 02/28/201211/09 Overview: Exercise induced symptoms Reproduced during stress test Left heart catheterization on 03/01/2012 showed non-obstructive single-vessel CAD [50% mid-LAD]. Cardiac MRI shows normal EF with mild fibrosis. Carvedilol uptitrated. S/p dual chamber ICD. PMR (polymyalgia rheumatica) 02/01/2012 02/16/2017 Overview: On Prednisone 10mg/d Ct home dose Enthesopathy of unspecified site 12/21/2010 08/09/2021 Type 2 diabetes mellitus 12/01/2010 Overview: On Glargine 14 units, Glimepiride & Metformin No recent HbA1c Ct home regimen Accucheck AC/HS HbA1c 7 Somnolence 06/09/2009 07/05/2015 DIABETES MELLITUS ADULT ONSET 07/09/2007 07/05/2015 Diabetic neuropathy, type II diabetes mellitus 03/03/2015 Overview: On Gabapentin Tobacco use disorder 017 Overview: In remission HTN (hypertension) 7 Overview: On Clonidine,Atenolol, Lisinopril, Losartan Clonidine tapered & Atenolol stopped. Carvedilol up titrated to 50mg bid; decreased to 37.5mg bid due to relatively low systolic BP 97 with dizziness [for VT] Last Assessment & Plan: BP is well controlled on current regimen of medicines which is tolerated well. 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 Takes his medication regularly though. He does some stationary bike riding recently. 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 Cardiac MRI shows normal LV size, shape, and function with mild myocardial fibrosis at the basal and mid inferoseptum at the RV insertion point. Carvedilol dose uptitrated to 37.5mg BID while Clonidine was reduced to 0.1mg BID & Atenolol stopped. Dual chamber ICD was implanted on 03/11/2012 for primary prevention. Post- implantation checks satisfactory. Being discharged today. F/u with device clinic in 6 weeks CAD (coronary artery disease ), [place] coronary artery 03/06/2012 08/09/2021 Overview: Non obstructive single vessel ds Mid LAD 50% Ventricular tachycardia 02/28/201211/09 Overview: Exercise induced symptoms Reproduced during stress test Left heart catheterization on 03/01/2012 showed non-obstructive single-vessel CAD [50% mid-LAD]. Cardiac MRI shows normal EF with mild fibrosis. Carvedilol uptitrated. S/p dual chamber ICD. PMR (polymyalgia rheumatica) 02/01/2012 02/16/2017 Overview: On Prednisone 10mg/d Ct home dose Enthesopathy of unspecified site 12/21/2010 08/09/2021 Type 2 diabetes mellitus 12/01/2010 Overview: On Glargine 14 units, Glimepiride & Metformin No recent HbA1c Ct home regimen Accucheck AC/HS HbA1c 7 Somnolence 06/09/2009 07/05/2015 DIABETES MELLITUS ADULT ONSET 07/09/2007 07/05/2015 Diabetic neuropathy, type II diabetes mellitus 03/03/2015 Overview: On Gabapentin Tobacco use disorder 017 Overview: In remission HTN (hypertension) 7 Overview: On Clonidine,Atenolol, Lisinopril, Losartan Clonidine tapered & Atenolol stopped. Carvedilol up titrated to 50mg bid; decreased to 37.5mg bid due to relatively low systolic BP 97 with dizziness [for VT] Last Assessment & Plan: BP is well controlled on current regimen of medicines which is tolerated well. 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 Takes his medication regularly though. He does some stationary bike riding recently. 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 Cardiac MRI shows normal LV size, shape, and function with mild myocardial fibrosis at the basal and mid inferoseptum at the RV insertion point. Carvedilol dose uptitrated to 37.5mg BID while Clonidine was reduced to 0.1mg BID & Atenolol stopped. Dual chamber ICD was implanted on 03/11/2012 for primary prevention. Post- implantation checks satisfactory. Being discharged today. F/u with device clinic in 6 weeks CAD (coronary artery disease ), [place] coronary artery 03/06/2012 08/09/2021 Overview: Non obstructive single vessel ds Mid LAD 50% Ventricular tachycardia 02/28/201211/09 Overview: Exercise induced symptoms Reproduced during stress test Left heart catheterization on 03/01/2012 showed non-obstructive single-vessel CAD [50% mid-LAD]. Cardiac MRI shows normal EF with mild fibrosis. Carvedilol uptitrated. S/p dual chamber ICD. PMR (polymyalgia rheumatica) 02/01/2012 02/16/2017 Overview: On Prednisone 10mg/d Ct home dose Enthesopathy of unspecified site 12/21/2010 08/09/2021 Type 2 diabetes mellitus 12/01/2010 Overview: On Glargine 14 units, Glimepiride & Metformin No recent HbA1c Ct home regimen Accucheck AC/HS HbA1c 7 Somnolence 06/09/2009 07/05/2015 DIABETES MELLITUS ADULT ONSET 07/09/2007 07/05/2015 Diabetic neuropathy, type II diabetes mellitus 03/03/2015 Overview: On Gabapentin Tobacco use disorder 017 Overview: In remission HTN (hypertension) 7 Overview: On Clonidine,Atenolol, Lisinopril, Losartan Clonidine tapered & Atenolol stopped. Carvedilol up titrated to 50mg bid; decreased to 37.5mg bid due to relatively low systolic BP 97 with dizziness [for VT] Last Assessment & Plan: BP is well controlled on current regimen of medicines which is tolerated well. 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 Takes his medication regularly though. He does some stationary bike riding recently. 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 Cardiac MRI shows normal LV size, shape, and function with mild myocardial fibrosis at the basal and mid inferoseptum at the RV insertion point. Carvedilol dose uptitrated to 37.5mg BID while Clonidine was reduced to 0.1mg BID & Atenolol stopped. Dual chamber ICD was implanted on 03/11/2012 for primary prevention. Post- implantation checks satisfactory. Being discharged today. F/u with device clinic in 6 weeks CAD (coronary artery disease ), [place] coronary artery 03/06/2012 08/09/2021 Overview: Non obstructive single vessel ds Mid LAD 50% Ventricular tachycardia 02/28/201211/09 Overview: Exercise induced symptoms Reproduced during stress test Left heart catheterization on 03/01/2012 showed non-obstructive single-vessel CAD [50% mid-LAD]. Cardiac MRI shows normal EF with mild fibrosis. Carvedilol uptitrated. S/p dual chamber ICD. PMR (polymyalgia rheumatica) 02/01/2012 02/16/2017 Overview: On Prednisone 10mg/d Ct home dose Enthesopathy of unspecified site 12/21/2010 08/09/2021 Type 2 diabetes mellitus 12/01/2010 Overview: On Glargine 14 units, Glimepiride & Metformin No recent HbA1c Ct home regimen Accucheck AC/HS HbA1c 7 Somnolence 06/09/2009 07/05/2015 DIABETES MELLITUS ADULT ONSET 07/09/2007 07/05/2015 Diabetic neuropathy, type II diabetes mellitus 03/03/2015 Overview: On Gabapentin Tobacco use disorder 017 Overview: In remission HTN (hypertension) 7 Overview: On Clonidine,Atenolol, Lisinopril, Losartan Clonidine tapered & Atenolol stopped. Carvedilol up titrated to 50mg bid; decreased to 37.5mg bid due to relatively low systolic BP 97 with dizziness [for VT] Last Assessment & Plan: BP is well controlled on current regimen of medicines which is tolerated well. 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 Takes his medication regularly though. He does some stationary bike riding recently. 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 Cardiac MRI shows normal LV size, shape, and function with mild myocardial fibrosis at the basal and mid inferoseptum at the RV insertion point. Carvedilol dose uptitrated to 37.5mg BID while Clonidine was reduced to 0.1mg BID & Atenolol stopped. Dual chamber ICD was implanted on 03/11/2012 for primary prevention. Post- implantation checks satisfactory. Being discharged today. F/u with device clinic in 6 weeks CAD (coronary artery disease ), [place] coronary artery 03/06/2012 08/09/2021 Overview: Non obstructive single vessel ds Mid LAD 50% Ventricular tachycardia 02/28/201211/09 Overview: Exercise induced symptoms Reproduced during stress test Left heart catheterization on 03/01/2012 showed non-obstructive single-vessel CAD [50% mid-LAD]. Cardiac MRI shows normal EF with mild fibrosis. Carvedilol uptitrated. S/p dual chamber ICD. PMR (polymyalgia rheumatica) 02/01/2012 02/16/2017 Overview: On Prednisone 10mg/d Ct home dose Enthesopathy of unspecified site 12/21/2010 08/09/2021 Type 2 diabetes mellitus 12/01/2010 Overview: On Glargine 14 units, Glimepiride & Metformin No recent HbA1c Ct home regimen Accucheck AC/HS HbA1c 7 Somnolence 06/09/2009 07/05/2015 DIABETES MELLITUS ADULT ONSET 07/09/2007 07/05/2015 Diabetic neuropathy, type II diabetes mellitus 03/03/2015 Overview: On Gabapentin Tobacco use disorder 017 Overview: In remission HTN (hypertension) 7 Overview: On Clonidine,Atenolol, Lisinopril, Losartan Clonidine tapered & Atenolol stopped. Carvedilol up titrated to 50mg bid; decreased to 37.5mg bid due to relatively low systolic BP 97 with dizziness [for VT] Last Assessment & Plan: BP is well controlled on current regimen of medicines which is tolerated well. 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 Takes his medication regularly though. He does some stationary bike riding recently. 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 Cardiac MRI shows normal LV size, shape, and function with mild myocardial fibrosis at the basal and mid inferoseptum at the RV insertion point. Carvedilol dose uptitrated to 37.5mg BID while Clonidine was reduced to 0.1mg BID & Atenolol stopped. Dual chamber ICD was implanted on 03/11/2012 for primary prevention. Post- implantation checks satisfactory. Being discharged today. F/u with device clinic in 6 weeks CAD (coronary artery disease ), [place] coronary artery 03/06/2012 08/09/2021 Overview: Non obstructive single vessel ds Mid LAD 50% Ventricular tachycardia 02/28/201211/09 Overview: Exercise induced symptoms Reproduced during stress test Left heart catheterization on 03/01/2012 showed non-obstructive single-vessel CAD [50% mid-LAD]. Cardiac MRI shows normal EF with mild fibrosis. Carvedilol uptitrated. S/p dual chamber ICD. PMR (polymyalgia rheumatica) 02/01/2012 02/16/2017 Overview: On Prednisone 10mg/d Ct home dose Enthesopathy of unspecified site 12/21/2010 08/09/2021 Type 2 diabetes mellitus 12/01/2010 Overview: On Glargine 14 units, Glimepiride & Metformin No recent HbA1c Ct home regimen Accucheck AC/HS HbA1c 7 Somnolence 06/09/2009 07/05/2015 DIABETES MELLITUS ADULT ONSET 07/09/2007 07/05/2015 Diabetic neuropathy, type II diabetes mellitus 03/03/2015 Overview: On Gabapentin Tobacco use disorder 017 Overview: In remission HTN (hypertension) 7 Overview: On Clonidine,Atenolol, Lisinopril, Losartan Clonidine tapered & Atenolol stopped. Carvedilol up titrated to 50mg bid; decreased to 37.5mg bid due to relatively low systolic BP 97 with dizziness [for VT] Last Assessment & Plan: BP is well controlled on current regimen of medicines which is tolerated well. 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 Takes his medication regularly though. He does some stationary bike riding recently. 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 Cardiac MRI shows normal LV size, shape, and function with mild myocardial fibrosis at the basal and mid inferoseptum at the RV insertion point. Carvedilol dose uptitrated to 37.5mg BID while Clonidine was reduced to 0.1mg BID & Atenolol stopped. Dual chamber ICD was implanted on 03/11/2012 for primary prevention. Post- implantation checks satisfactory. Being discharged today. F/u with device clinic in 6 weeks CAD (coronary artery disease ), [place] coronary artery 03/06/2012 08/09/2021 Overview: Non obstructive single vessel ds Mid LAD 50% Ventricular tachycardia 02/28/201211/09 Overview: Exercise induced symptoms Reproduced during stress test Left heart catheterization on 03/01/2012 showed non-obstructive single-vessel CAD [50% mid-LAD]. Cardiac MRI shows normal EF with mild fibrosis. Carvedilol uptitrated. S/p dual chamber ICD. PMR (polymyalgia rheumatica) 02/01/2012 02/16/2017 Overview: On Prednisone 10mg/d Ct home dose Enthesopathy of unspecified site 12/21/2010 08/09/2021 Type 2 diabetes mellitus 12/01/2010 Overview: On Glargine 14 units, Glimepiride & Metformin No recent HbA1c Ct home regimen Accucheck AC/HS HbA1c 7 Somnolence 06/09/2009 07/05/2015 DIABETES MELLITUS ADULT ONSET 07/09/2007 07/05/2015 Diabetic neuropathy, type II diabetes mellitus 03/03/2015 Overview: On Gabapentin Tobacco use disorder 017 Overview: In remission HTN (hypertension) 7 Overview: On Clonidine,Atenolol, Lisinopril, Losartan Clonidine tapered & Atenolol stopped. Carvedilol up titrated to 50mg bid; decreased to 37.5mg bid due to relatively low systolic BP 97 with dizziness [for VT] Last Assessment & Plan: BP is well controlled on current regimen of medicines which is tolerated well. 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 Takes his medication regularly though. He does some stationary bike riding recently. 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 Cardiac MRI shows normal LV size, shape, and function with mild myocardial fibrosis at the basal and mid inferoseptum at the RV insertion point. Carvedilol dose uptitrated to 37.5mg BID while Clonidine was reduced to 0.1mg BID & Atenolol stopped. Dual chamber ICD was implanted on 03/11/2012 for primary prevention. Post- implantation checks satisfactory. Being discharged today. F/u with device clinic in 6 weeks CAD (coronary artery disease ), [place] coronary artery 03/06/2012 08/09/2021 Overview: Non obstructive single vessel ds Mid LAD 50% Ventricular tachycardia 02/28/201211/09 Overview: Exercise induced symptoms Reproduced during stress test Left heart catheterization on 03/01/2012 showed non-obstructive single-vessel CAD [50% mid-LAD]. Cardiac MRI shows normal EF with mild fibrosis. Carvedilol uptitrated. S/p dual chamber ICD. PMR (polymyalgia rheumatica) 02/01/2012 02/16/2017 Overview: On Prednisone 10mg/d Ct home dose Enthesopathy of unspecified site 12/21/2010 08/09/2021 Type 2 diabetes mellitus 12/01/2010 Overview: On Glargine 14 units, Glimepiride & Metformin No recent HbA1c Ct home regimen Accucheck AC/HS HbA1c 7 Somnolence 06/09/2009 07/05/2015 DIABETES MELLITUS ADULT ONSET 07/09/2007 07/05/2015 Diabetic neuropathy, type II diabetes mellitus 03/03/2015 Overview: On Gabapentin Tobacco use disorder 017 Overview: In remission HTN (hypertension) 7 Overview: On Clonidine,Atenolol, Lisinopril, Losartan Clonidine tapered & Atenolol stopped. Carvedilol up titrated to 50mg bid; decreased to 37.5mg bid due to relatively low systolic BP 97 with dizziness [for VT] Last Assessment & Plan: BP is well controlled on current regimen of medicines which is tolerated well. 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 Takes his medication regularly though. He does some stationary bike riding recently. 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 Cardiac MRI shows normal LV size, shape, and function with mild myocardial fibrosis at the basal and mid inferoseptum at the RV insertion point. Carvedilol dose uptitrated to 37.5mg BID while Clonidine was reduced to 0.1mg BID & Atenolol stopped. Dual chamber ICD was implanted on 03/11/2012 for primary prevention. Post- implantation checks satisfactory. Being discharged today. F/u with device clinic in 6 weeks CAD (coronary artery disease ), [place] coronary artery 03/06/2012 08/09/2021 Overview: Non obstructive single vessel ds Mid LAD 50% Ventricular tachycardia 02/28/201211/09 Overview: Exercise induced symptoms Reproduced during stress test Left heart catheterization on 03/01/2012 showed non-obstructive single-vessel CAD [50% mid-LAD]. Cardiac MRI shows normal EF with mild fibrosis. Carvedilol uptitrated. S/p dual chamber ICD. PMR (polymyalgia rheumatica) 02/01/2012 02/16/2017 Overview: On Prednisone 10mg/d Ct home dose Enthesopathy of unspecified site 12/21/2010 08/09/2021 Type 2 diabetes mellitus 12/01/2010 Overview: On Glargine 14 units, Glimepiride & Metformin No recent HbA1c Ct home regimen Accucheck AC/HS HbA1c 7 Somnolence 06/09/2009 07/05/2015 DIABETES MELLITUS ADULT ONSET 07/09/2007 07/05/2015 Diabetic neuropathy, type II diabetes mellitus 03/03/2015 Overview: On Gabapentin Tobacco use disorder 017 Overview: In remission HTN (hypertension) 7 Overview: On Clonidine,Atenolol, Lisinopril, Losartan Clonidine tapered & Atenolol stopped. Carvedilol up titrated to 50mg bid; decreased to 37.5mg bid due to relatively low systolic BP 97 with dizziness [for VT] Last Assessment & Plan: BP is well controlled on current regimen of medicines which is tolerated well. 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 Takes his medication regularly though. He does some stationary bike riding recently. 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 Cardiac MRI shows normal LV size, shape, and function with mild myocardial fibrosis at the basal and mid inferoseptum at the RV insertion point. Carvedilol dose uptitrated to 37.5mg BID while Clonidine was reduced to 0.1mg BID & Atenolol stopped. Dual chamber ICD was implanted on 03/11/2012 for primary prevention. Post- implantation checks satisfactory. Being discharged today. F/u with device clinic in 6 weeks CAD (coronary artery disease ), [place] coronary artery 03/06/2012 08/09/2021 Overview: Non obstructive single vessel ds Mid LAD 50% Ventricular tachycardia 02/28/201211/09 Overview: Exercise induced symptoms Reproduced during stress test Left heart catheterization on 03/01/2012 showed non-obstructive single-vessel CAD [50% mid-LAD]. Cardiac MRI shows normal EF with mild fibrosis. Carvedilol uptitrated. S/p dual chamber ICD. PMR (polymyalgia rheumatica) 02/01/2012 02/16/2017 Overview: On Prednisone 10mg/d Ct home dose Enthesopathy of unspecified site 12/21/2010 08/09/2021 Type 2 diabetes mellitus 12/01/2010 Overview: On Glargine 14 units, Glimepiride & Metformin No recent HbA1c Ct home regimen Accucheck AC/HS HbA1c 7 Somnolence 06/09/2009 07/05/2015 DIABETES MELLITUS ADULT ONSET 07/09/2007 07/05/2015 Diabetic neuropathy, type II diabetes mellitus 03/03/2015 Overview: On Gabapentin Tobacco use disorder 017 Overview: In remission HTN (hypertension) 7 Overview: On Clonidine,Atenolol, Lisinopril, Losartan Clonidine tapered & Atenolol stopped. Carvedilol up titrated to 50mg bid; decreased to 37.5mg bid due to relatively low systolic BP 97 with dizziness [for VT] Last Assessment & Plan: BP is well controlled on current regimen of medicines which is tolerated well. 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 Takes his medication regularly though. He does some stationary bike riding recently. 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 Cardiac MRI shows normal LV size, shape, and function with mild myocardial fibrosis at the basal and mid inferoseptum at the RV insertion point. Carvedilol dose uptitrated to 37.5mg BID while Clonidine was reduced to 0.1mg BID & Atenolol stopped. Dual chamber ICD was implanted on 03/11/2012 for primary prevention. Post- implantation checks satisfactory. Being discharged today. F/u with device clinic in 6 weeks CAD (coronary artery disease ), [place] coronary artery 03/06/2012 08/09/2021 Overview: Non obstructive single vessel ds Mid LAD 50% Ventricular tachycardia 02/28/201211/09 Overview: Exercise induced symptoms Reproduced during stress test Left heart catheterization on 03/01/2012 showed non-obstructive single-vessel CAD [50% mid-LAD]. Cardiac MRI shows normal EF with mild fibrosis. Carvedilol uptitrated. S/p dual chamber ICD. PMR (polymyalgia rheumatica) 02/01/2012 02/16/2017 Overview: On Prednisone 10mg/d Ct home dose Enthesopathy of unspecified site 12/21/2010 08/09/2021 Type 2 diabetes mellitus 12/01/2010 Overview: On Glargine 14 units, Glimepiride & Metformin No recent HbA1c Ct home regimen Accucheck AC/HS HbA1c 7 Somnolence 06/09/2009 07/05/2015 DIABETES MELLITUS ADULT ONSET 07/09/2007 07/05/2015 Diabetic neuropathy, type II diabetes mellitus 03/03/2015 Overview: On Gabapentin Tobacco use disorder 017 Overview: In remission HTN (hypertension) 7 Overview: On Clonidine,Atenolol, Lisinopril, Losartan Clonidine tapered & Atenolol stopped. Carvedilol up titrated to 50mg bid; decreased to 37.5mg bid due to relatively low systolic BP 97 with dizziness [for VT] Last Assessment & Plan: BP is well controlled on current regimen of medicines which is tolerated well. 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 Takes his medication regularly though. He does some stationary bike riding recently. 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 Cardiac MRI shows normal LV size, shape, and function with mild myocardial fibrosis at the basal and mid inferoseptum at the RV insertion point. Carvedilol dose uptitrated to 37.5mg BID while Clonidine was reduced to 0.1mg BID & Atenolol stopped. Dual chamber ICD was implanted on 03/11/2012 for primary prevention. Post- implantation checks satisfactory. Being discharged today. F/u with device clinic in 6 weeks CAD (coronary artery disease ), [place] coronary artery 03/06/2012 08/09/2021 Overview: Non obstructive single vessel ds Mid LAD 50% Ventricular tachycardia 02/28/201211/09 Overview: Exercise induced symptoms Reproduced during stress test Left heart catheterization on 03/01/2012 showed non-obstructive single-vessel CAD [50% mid-LAD]. Cardiac MRI shows normal EF with mild fibrosis. Carvedilol uptitrated. S/p dual chamber ICD. PMR (polymyalgia rheumatica) 02/01/2012 02/16/2017 Overview: On Prednisone 10mg/d Ct home dose Enthesopathy of unspecified site 12/21/2010 08/09/2021 Type 2 diabetes mellitus 12/01/2010 Overview: On Glargine 14 units, Glimepiride & Metformin No recent HbA1c Ct home regimen Accucheck AC/HS HbA1c 7 Somnolence 06/09/2009 07/05/2015 DIABETES MELLITUS ADULT ONSET 07/09/2007 07/05/2015 Diabetic neuropathy, type II diabetes mellitus 03/03/2015 Overview: On Gabapentin Tobacco use disorder 017 Overview: In remission HTN (hypertension) 7 Overview: On Clonidine,Atenolol, Lisinopril, Losartan Clonidine tapered & Atenolol stopped. Carvedilol up titrated to 50mg bid; decreased to 37.5mg bid due to relatively low systolic BP 97 with dizziness [for VT] Last Assessment & Plan: BP is well controlled on current regimen of medicines which is tolerated well. No significant side effects Diarrhea 08/09/2021 documented as of this encounter (statuses as of 12/26/2023) [facility] Iron deficiency anemia secondary to inadequate dietary iron intake Gastrointestinal hemorrhage, unspecified gastrointestinal hemorrhage [facility] Paroxysmal VT (HCC)- Primary Paroxysmal ventricular tachycardia PVC (premature ventricular contraction) Other premature beats Type 2 diabetes mellitus with diabetic mononeuropathy, with long-term current use of insulin (HCC) Coronary artery disease involving [place] coronary artery of [place] heart without angina pectoris Paroxysmal atrial fibrillation (HCC) Atrial fibrillation Morbid obesity (HCC) Morbid obesity Dual implantable cardioverter-defibrillator in situ Automatic implantable cardiac defibrillator in situ [facility] Diagnosis Type 2 diabetes mellitus with diabetic mononeuropathy, with long-term current use of insulin (HCC)- Primary Essential hypertension Unspecified essential hypertension Mixed hyperlipidemia Pure hyperglyceridemia [facility] 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 Long-term (current) use of anticoagulants Paroxysmal atrial fibrillation (HCC) Atrial fibrillation [facility] Diagnosis Mixed hyperlipidemia- Primary Coronary artery disease involving [place] coronary artery of [place] heart without angina pectoris Essential hypertension Unspecified essential hypertension SVT (supraventricular tachycardia) (HCC) Other specified cardiac dysrhythmias Paroxysmal atrial fibrillation (HCC) Atrial fibrillation Hypertensive kidney disease with stage 3a chronic kidney disease (HCC) [facility] Diagnosis Paroxysmal atrial fibrillation (HCC) Atrial fibrillation Essential hypertension Unspecified essential hypertension [facility] Diagnosis Tobacco abuse Tobacco use disorder [facility] Diagnosis 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 Paroxysmal atrial fibrillation (HCC) Atrial fibrillation [facility] Diagnosis Paroxysmal atrial fibrillation (HCC) Atrial fibrillation Hypomagnesemia Disorders of magnesium metabolism Hypokalemia Hypopotassemia [facility] Diagnosis Type 2 diabetes mellitus with diabetic mononeuropathy, with long-term current use of insulin (HCC) [facility] Diagnosis Hypothyroidism, unspecified type- Primary Essential hypertension Unspecified essential hypertension Ganglion cyst Ganglion, unspecified Type 2 diabetes mellitus with diabetic mononeuropathy, with long-term current use of insulin (HCC) [facility] Diagnosis Left wrist pain- Primary Pain in joint, forearm Ganglion cyst Ganglion, unspecified Primary osteoarthritis of left wrist Primary localized osteoarthrosis, forearm [facility] Diagnosis Nocturia [facility] Diagnosis Type 2 diabetes mellitus with diabetic mononeuropathy, with long-term current use of insulin (HCC)- Primary Pure hypercholesterolemia Dual implantable cardioverter-defibrillator in situ Automatic implantable cardiac defibrillator in situ Coronary artery disease involving [place] coronary artery of [place] heart without angina pectoris Essential hypertension Unspecified essential hypertension Paroxysmal atrial fibrillation (HCC) Atrial fibrillation [facility] Diagnosis Essential hypertension- Primary Unspecified essential hypertension Hypokalemia Hypopotassemia Recurrent major depressive disorder, in partial remission (HCC) Thrombocytopenia (HCC) Thrombocytopenia, unspecified Hypothyroidism, unspecified type Type 2 diabetes mellitus with stage 3a chronic kidney disease, with long-term current use of insulin (HCC) SVT (supraventricular tachycardia) (HCC) Other specified cardiac dysrhythmias Diastolic dysfunction Heart disease, unspecified [facility] noteNo assessment information availableWOhio State [facility] Work Phone: Evaluation note* Diagnosis Type 2 diabetes mellitus with diabetic mononeuropathy, with long-term current use of insulin (HCC)- Primary [place] on CPAP Obstructive sleep apnea (adult) (pediatric) Stage 3a chronic kidney disease (HCC) Psoriatic arthritis (HCC) Psoriatic arthropathy Iron deficiency anemia, unspecified iron deficiency anemia type Hypothyroidism, unspecified type 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) Morbid obesity (HCC) Morbid obesity [facility] Diagnosis Atrial fibrillation, persistent (HCC)- Primary Atrial fibrillation Dual implantable cardioverter-defibrillator in situ Automatic implantable cardiac defibrillator in situ Anticoagulated on Coumadin Encounter for therapeutic drug monitoring Morbid obesity (HCC) Morbid obesity [facility] Diagnosis Nocturia [facility] Diagnosis Type 2 diabetes mellitus with diabetic mononeuropathy, with long-term current use of insulin (HCC)- Primary Pure hypercholesterolemia Hypothyroidism, unspecified type Paroxysmal atrial fibrillation (HCC) Atrial fibrillation Hypertensive kidney disease with stage 3a chronic kidney disease (HCC) Essential hypertension Unspecified essential hypertension Need for influenza vaccination Need for prophylactic vaccination and inoculation against influenza [facility] Diagnosis Type 2 diabetes mellitus with diabetic mononeuropathy, with long-term current use of insulin (HCC) [facility] Diagnosis Atrial fibrillation, persistent (HCC)- Primary Atrial fibrillation Dual implantable cardioverter-defibrillator in situ Automatic implantable cardiac defibrillator in situ [facility] Diagnosis Anticoagulated on Coumadin- Primary Encounter for therapeutic drug monitoring Paroxysmal atrial fibrillation (HCC) Atrial fibrillation [facility] Diagnosis Paroxysmal atrial fibrillation (HCC) Atrial fibrillation [facility] Diagnosis Anticoagulated on Coumadin- Primary Encounter for therapeutic drug monitoring Paroxysmal atrial fibrillation (HCC) Atrial fibrillation [facility] Diagnosis Paroxysmal ventricular tachycardia (HCC)- Primary Paroxysmal ventricular tachycardia Paroxysmal atrial fibrillation (HCC) Atrial fibrillation Morbid obesity (HCC) Morbid obesity Type 2 diabetes mellitus with diabetic mononeuropathy, with long-term current use of insulin (HCC) Obesity, Class I, BMI 30-34.9 Obesity, unspecified Atrial fibrillation, persistent (HCC) Atrial fibrillation Encounter for current long-term use of anticoagulants Long-term (current) use of anticoagulants Benign essential HTN Essential hypertension, benign Chronic systolic heart failure (HCC) Chronic systolic heart failure Cardiomyopathy, ischemic Other specified forms of chronic ischemic heart disease [facility] Diagnosis Anemia, unspecified type- Primary History of colonic polyps Personal history of colonic polyps Abnormal finding on imaging of liver Elevated alkaline phosphatase level Other nonspecific abnormal serum enzyme levels [facility] Diagnosis Anticoagulated on Coumadin- Primary Encounter for therapeutic drug monitoring Paroxysmal atrial fibrillation (HCC) Atrial fibrillation [facility] Diagnosis Abnormal finding on imaging of liver Elevated alkaline phosphatase level Other nonspecific abnormal serum enzyme levels [facility] Diagnosis Anemia, unspecified type- Primary Iron deficiency anemia, unspecified iron deficiency anemia type Stage 3a chronic kidney disease (HCC) [facility] Diagnosis Anemia, unspecified type- Primary Stage 3a chronic kidney disease (HCC) Iron deficiency anemia, unspecified iron deficiency anemia type B12 deficiency Other B-complex deficiencies [facility] Diagnosis Anticoagulated on Coumadin- Primary Encounter for therapeutic drug monitoring Paroxysmal atrial fibrillation (HCC) Atrial fibrillation [facility] Diagnosis Stage 3a chronic kidney disease (HCC)- Primary Iron deficiency anemia secondary to inadequate dietary iron intake Iron malabsorption Other specified intestinal malabsorption B12 deficiency Other B-complex deficiencies [facility] Diagnosis Stage 3a chronic kidney disease (HCC)- Primary Iron deficiency anemia secondary to inadequate dietary iron intake Iron malabsorption Other specified intestinal malabsorption B12 deficiency Other B-complex deficiencies [facility] Diagnosis Pure hypercholesterolemia- Primary Dual implantable cardioverter-defibrillator in situ Automatic implantable cardiac defibrillator in situ Coronary artery disease involving [place] coronary artery of [place] heart without angina pectoris Atrial fibrillation, persistent (HCC) Atrial fibrillation [facility] Diagnosis B12 deficiency- Primary Other B-complex deficiencies [facility]* Diagnosis Type 2 diabetes mellitus with diabetic mononeuropathy, with long-term current use of insulin (HCC) [facility] Diagnosis Anemia, unspecified type History of colonic polyps Personal history of colonic polyps [facility] Diagnosis B12 deficiency- Primary Other B-complex deficiencies [facility]* Diagnosis Anticoagulated on Coumadin- Primary Encounter for therapeutic drug monitoring Paroxysmal atrial fibrillation (HCC) Atrial fibrillation [facility] Diagnosis Severe pain- Primary [facility] Diagnosis Iron deficiency anemia, unspecified iron deficiency anemia type- Primary Stage 3a chronic kidney disease (HCC) B12 deficiency Other B-complex deficiencies [facility]* Diagnosis Type 2 diabetes mellitus with diabetic mononeuropathy, with long-term current use of insulin (HCC)- Primary Paroxysmal atrial fibrillation (HCC) Atrial fibrillation Essential hypertension Unspecified essential hypertension Coronary artery disease involving [place] coronary artery of [place] heart without angina pectoris Pure hypercholesterolemia [facility] Diagnosis Anticoagulated on Coumadin- Primary Encounter for therapeutic drug monitoring Paroxysmal atrial fibrillation (HCC) Atrial fibrillation documented in this encounter 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) [place] on CPAP Obstructive sleep apnea (adult) (pediatric) Tobacco use disorder Dual implantable cardioverter-defibrillator in situ Automatic implantable cardiac defibrillator in situ Need for vaccination Need for prophylactic vaccination and inoculation against unspecified single disease Nocturia Hypokalemia Hypopotassemia Essential hypertension Unspecified essential hypertension Mixed hyperlipidemia DM (diabetes mellitus), type 2 with neurological complications (HCC) Type II or unspecified type diabetes mellitus with neurological manifestations, not stated as uncontrolled CKD (chronic kidney disease) stage 3, GFR 30-59 ml/min (HCC) Chronic kidney disease, Stage III (moderate) Morbid obesity, unspecified obesity type (HCC) Prostate cancer screening- Primary Special screening for malignant neoplasm of prostate Controlled type 2 diabetes mellitus without complication, unspecified rodent exterminator insulin use status Essential hypertension Unspecified essential hypertension Mixed hyperlipidemia Paroxysmal atrial fibrillation (HCC) Atrial fibrillation B12 deficiency- Primary Other B-complex deficiencies documented in this encounter 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) [place] on CPAP Obstructive sleep apnea (adult) (pediatric) Tobacco use disorder Dual implantable cardioverter-defibrillator in situ Automatic implantable cardiac defibrillator in situ Need for vaccination Need for prophylactic vaccination and inoculation against unspecified single disease Nocturia Hypokalemia Hypopotassemia Essential hypertension Unspecified essential hypertension Mixed hyperlipidemia DM (diabetes mellitus), type 2 with neurological complications (HCC) Type II or unspecified type diabetes mellitus with neurological manifestations, not stated as uncontrolled CKD (chronic kidney disease) stage 3, GFR 30-59 ml/min (HCC) Chronic kidney disease, Stage III (moderate) Morbid obesity, unspecified obesity type (HCC) Prostate cancer screening- Primary Special screening for malignant neoplasm of prostate Controlled type 2 diabetes mellitus without complication, unspecified rodent exterminator insulin use status Essential hypertension Unspecified essential hypertension Mixed hyperlipidemia Paroxysmal atrial fibrillation (HCC) Atrial fibrillation Anticoagulated on Coumadin- Primary Encounter for therapeutic drug monitoring Paroxysmal atrial fibrillation (HCC) Atrial fibrillation documented in this encounter 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) [place] on CPAP Obstructive sleep apnea (adult) (pediatric) Tobacco use disorder Dual implantable cardioverter-defibrillator in situ Automatic implantable cardiac defibrillator in situ Need for vaccination Need for prophylactic vaccination and inoculation against unspecified single disease Nocturia Hypokalemia Hypopotassemia Essential hypertension Unspecified essential hypertension Mixed hyperlipidemia DM (diabetes mellitus), type 2 with neurological complications (HCC) Type II or unspecified type diabetes mellitus with neurological manifestations, not stated as uncontrolled CKD (chronic kidney disease) stage 3, GFR 30-59 ml/min (HCC) Chronic kidney disease, Stage III (moderate) Morbid obesity, unspecified obesity type (HCC) Prostate cancer screening- Primary Special screening for malignant neoplasm of prostate Controlled type 2 diabetes mellitus without complication, unspecified retirement insulin use status Essential hypertension Unspecified essential hypertension Mixed hyperlipidemia Paroxysmal atrial fibrillation (HCC) Atrial fibrillation Nocturia Paroxysmal atrial fibrillation (HCC) Atrial fibrillation Essential hypertension Unspecified essential hypertension documented in this encounter 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) [place] on CPAP Obstructive sleep apnea (adult) (pediatric) Tobacco use disorder Dual implantable cardioverter-defibrillator in situ Automatic implantable cardiac defibrillator in situ Need for vaccination Need for prophylactic vaccination and inoculation against unspecified single disease Nocturia Hypokalemia Hypopotassemia Essential hypertension Unspecified essential hypertension Mixed hyperlipidemia DM (diabetes mellitus), type 2 with neurological complications (HCC) Type II or unspecified type diabetes mellitus with neurological manifestations, not stated as uncontrolled CKD (chronic kidney disease) stage 3, GFR 30-59 ml/min (HCC) Chronic kidney disease, Stage III (moderate) Morbid obesity, unspecified obesity type (HCC) Prostate cancer screening- Primary Special screening for malignant neoplasm of prostate Controlled type 2 diabetes mellitus without complication, unspecified retirement insulin use status Essential hypertension Unspecified essential hypertension Mixed hyperlipidemia Paroxysmal atrial fibrillation (HCC) Atrial fibrillation Anticoagulated on Coumadin- Primary Encounter for therapeutic drug monitoring Paroxysmal atrial fibrillation (HCC) Atrial fibrillation documented in this encounter 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) [place] on CPAP Obstructive sleep apnea (adult) (pediatric) Tobacco use disorder Dual implantable cardioverter-defibrillator in situ Automatic implantable cardiac defibrillator in situ Need for vaccination Need for prophylactic vaccination and inoculation against unspecified single disease Nocturia Hypokalemia Hypopotassemia Essential hypertension Unspecified essential hypertension Mixed hyperlipidemia DM (diabetes mellitus), type 2 with neurological complications (HCC) Type II or unspecified type diabetes mellitus with neurological manifestations, not stated as uncontrolled CKD (chronic kidney disease) stage 3, GFR 30-59 ml/min (HCC) Chronic kidney disease, Stage III (moderate) Morbid obesity, unspecified obesity type (HCC) Prostate cancer screening- Primary Special screening for malignant neoplasm of prostate Controlled type 2 diabetes mellitus without complication, unspecified rodent exterminator insulin use status Essential hypertension Unspecified essential hypertension Mixed hyperlipidemia Paroxysmal atrial fibrillation (HCC) Atrial fibrillation B12 deficiency- Primary Other B-complex deficiencies documented in this encounter 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) [place] on CPAP Obstructive sleep apnea (adult) (pediatric) Tobacco use disorder Dual implantable cardioverter-defibrillator in situ Automatic implantable cardiac defibrillator in situ Need for vaccination Need for prophylactic vaccination and inoculation against unspecified single disease Nocturia Hypokalemia Hypopotassemia Essential hypertension Unspecified essential hypertension Mixed hyperlipidemia DM (diabetes mellitus), type 2 with neurological complications (HCC) Type II or unspecified type diabetes mellitus with neurological manifestations, not stated as uncontrolled CKD (chronic kidney disease) stage 3, GFR 30-59 ml/min (HCC) Chronic kidney disease, Stage III (moderate) Morbid obesity, unspecified obesity type (HCC) Prostate cancer screening- Primary Special screening for malignant neoplasm of prostate Controlled type 2 diabetes mellitus without complication, unspecified rodent exterminator insulin use status Essential hypertension Unspecified essential hypertension Mixed hyperlipidemia Paroxysmal atrial fibrillation (HCC) Atrial fibrillation Hypothyroidism Unspecified hypothyroidism documented in this encounter 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) [place] on CPAP Obstructive sleep apnea (adult) (pediatric) Tobacco use disorder Dual implantable cardioverter-defibrillator in situ Automatic implantable cardiac defibrillator in situ Need for vaccination Need for prophylactic vaccination and inoculation against unspecified single disease Nocturia Hypokalemia Hypopotassemia Essential hypertension Unspecified essential hypertension Mixed hyperlipidemia DM (diabetes mellitus), type 2 with neurological complications (HCC) Type II or unspecified type diabetes mellitus with neurological manifestations, not stated as uncontrolled CKD (chronic kidney disease) stage 3, GFR 30-59 ml/min (HCC) Chronic kidney disease, Stage III (moderate) Morbid obesity, unspecified obesity type (HCC) Prostate cancer screening- Primary Special screening for malignant neoplasm of prostate Controlled type 2 diabetes mellitus without complication, unspecified rodent exterminator insulin use status Essential hypertension Unspecified essential hypertension Mixed hyperlipidemia Paroxysmal atrial fibrillation (HCC) Atrial fibrillation Interscapular pain Backache, unspecified documented in this encounter 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) [place] on CPAP Obstructive sleep apnea (adult) (pediatric) Tobacco use disorder Dual implantable cardioverter-defibrillator in situ Automatic implantable cardiac defibrillator in situ Need for vaccination Need for prophylactic vaccination and inoculation against unspecified single disease Nocturia Hypokalemia Hypopotassemia Essential hypertension Unspecified essential hypertension Mixed hyperlipidemia DM (diabetes mellitus), type 2 with neurological complications (HCC) Type II or unspecified type diabetes mellitus with neurological manifestations, not stated as uncontrolled CKD (chronic kidney disease) stage 3, GFR 30-59 ml/min (HCC) Chronic kidney disease, Stage III (moderate) Morbid obesity, unspecified obesity type (HCC) Prostate cancer screening- Primary Special screening for malignant neoplasm of prostate Controlled type 2 diabetes mellitus without complication, unspecified retirement insulin use status Essential hypertension Unspecified essential hypertension Mixed hyperlipidemia Paroxysmal atrial fibrillation (HCC) Atrial fibrillation Type 2 diabetes mellitus with diabetic mononeuropathy, with long-term current use of insulin (HCC)- Primary Essential hypertension Unspecified essential hypertension Paroxysmal atrial fibrillation (HCC) Atrial fibrillation Pure hypercholesterolemia Need for influenza vaccination Need for prophylactic vaccination and inoculation against influenza [facility] Diagnosis Controlled type 2 diabetes mellitus without complication, unspecified rodent exterminator insulin use status- Primary DM (diabetes mellitus), type 2 with neurological complications (HCC) Type II or unspecified type diabetes mellitus with neurological manifestations, not stated as uncontrolled Mixed hyperlipidemia 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) [place] on CPAP Obstructive sleep apnea (adult) (pediatric) Tobacco use disorder Dual implantable cardioverter-defibrillator in situ Automatic implantable cardiac defibrillator in situ Need for vaccination Need for prophylactic vaccination and inoculation against unspecified single disease Nocturia Hypokalemia Hypopotassemia Essential hypertension Unspecified essential hypertension Mixed hyperlipidemia DM (diabetes mellitus), type 2 with neurological complications (HCC) Type II or unspecified type diabetes mellitus with neurological manifestations, not stated as uncontrolled CKD (chronic kidney disease) stage 3, GFR 30-59 ml/min (HCC) Chronic kidney disease, Stage III (moderate) Morbid obesity, unspecified obesity type (HCC) Prostate cancer screening- Primary Special screening for malignant neoplasm of prostate Controlled type 2 diabetes mellitus without complication, unspecified rodent exterminator insulin use status Essential hypertension Unspecified essential hypertension Mixed hyperlipidemia Paroxysmal atrial fibrillation (HCC) Atrial fibrillation Anticoagulated on Coumadin- Primary Encounter for therapeutic drug monitoring Paroxysmal atrial fibrillation (HCC) Atrial fibrillation [facility] Diagnosis Controlled type 2 diabetes mellitus without complication, unspecified rodent exterminator insulin use status- Primary DM (diabetes mellitus), type 2 with neurological complications (HCC) Type II or unspecified type diabetes mellitus with neurological manifestations, not stated as uncontrolled Mixed hyperlipidemia 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) [place] on CPAP Obstructive sleep apnea (adult) (pediatric) Tobacco use disorder Dual implantable cardioverter-defibrillator in situ Automatic implantable cardiac defibrillator in situ Need for vaccination Need for prophylactic vaccination and inoculation against unspecified single disease Nocturia Hypokalemia Hypopotassemia Essential hypertension Unspecified essential hypertension Mixed hyperlipidemia DM (diabetes mellitus), type 2 with neurological complications (HCC) Type II or unspecified type diabetes mellitus with neurological manifestations, not stated as uncontrolled CKD (chronic kidney disease) stage 3, GFR 30-59 ml/min (HCC) Chronic kidney disease, Stage III (moderate) Morbid obesity, unspecified obesity type (HCC) Prostate cancer screening- Primary Special screening for malignant neoplasm of prostate Controlled type 2 diabetes mellitus without complication, unspecified retirement insulin use status Essential hypertension Unspecified essential hypertension Mixed hyperlipidemia Paroxysmal atrial fibrillation (HCC) Atrial fibrillation Hospital discharge follow-up- Primary Other follow-up examination Diabetic gastropathy (HCC) Type II or unspecified type diabetes mellitus with other specified manifestations, not stated as uncontrolled Hypokalemia Hypopotassemia Hypomagnesemia Disorders of magnesium metabolism Essential hypertension Unspecified essential hypertension [facility] Diagnosis Controlled type 2 diabetes mellitus without complication, unspecified retirement insulin use status- Primary DM (diabetes mellitus), type 2 with neurological complications (HCC) Type II or unspecified type diabetes mellitus with neurological manifestations, not stated as uncontrolled Mixed hyperlipidemia 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) [place] on CPAP Obstructive sleep apnea (adult) (pediatric) Tobacco use disorder Dual implantable cardioverter-defibrillator in situ Automatic implantable cardiac defibrillator in situ Need for vaccination Need for prophylactic vaccination and inoculation against unspecified single disease Nocturia Hypokalemia Hypopotassemia Essential hypertension Unspecified essential hypertension Mixed hyperlipidemia DM (diabetes mellitus), type 2 with neurological complications (HCC) Type II or unspecified type diabetes mellitus with neurological manifestations, not stated as uncontrolled CKD (chronic kidney disease) stage 3, GFR 30-59 ml/min (HCC) Chronic kidney disease, Stage III (moderate) Morbid obesity, unspecified obesity type (HCC) Prostate cancer screening- Primary Special screening for malignant neoplasm of prostate Controlled type 2 diabetes mellitus without complication, unspecified retirement insulin use status Essential hypertension Unspecified essential hypertension Mixed hyperlipidemia Paroxysmal atrial fibrillation (HCC) Atrial fibrillation Episode of change in speech Other speech disturbance Balance problem Other symptoms involving nervous and musculoskeletal systems [facility] Diagnosis Controlled type 2 diabetes mellitus without complication, unspecified rodent exterminator insulin use status- Primary DM (diabetes mellitus), type 2 with neurological complications (HCC) Type II or unspecified type diabetes mellitus with neurological manifestations, not stated as uncontrolled Mixed hyperlipidemia 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) [place] on CPAP Obstructive sleep apnea (adult) (pediatric) Tobacco use disorder Dual implantable cardioverter-defibrillator in situ Automatic implantable cardiac defibrillator in situ Need for vaccination Need for prophylactic vaccination and inoculation against unspecified single disease Nocturia Hypokalemia Hypopotassemia Essential hypertension Unspecified essential hypertension Mixed hyperlipidemia DM (diabetes mellitus), type 2 with neurological complications (HCC) Type II or unspecified type diabetes mellitus with neurological manifestations, not stated as uncontrolled CKD (chronic kidney disease) stage 3, GFR 30-59 ml/min (HCC) Chronic kidney disease, Stage III (moderate) Morbid obesity, unspecified obesity type (HCC) Prostate cancer screening- Primary Special screening for malignant neoplasm of prostate Controlled type 2 diabetes mellitus without complication, unspecified retirement insulin use status Essential hypertension Unspecified essential hypertension Mixed hyperlipidemia Paroxysmal atrial fibrillation (HCC) Atrial fibrillation Anticoagulated on Coumadin- Primary Encounter for therapeutic drug monitoring Paroxysmal atrial fibrillation (HCC) Atrial fibrillation documented in this encounter 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) [place] on CPAP Obstructive sleep apnea (adult) (pediatric) Tobacco use disorder Dual implantable cardioverter-defibrillator in situ Automatic implantable cardiac defibrillator in situ Need for vaccination Need for prophylactic vaccination and inoculation against unspecified single disease Nocturia Hypokalemia Hypopotassemia Essential hypertension Unspecified essential hypertension Mixed hyperlipidemia DM (diabetes mellitus), type 2 with neurological complications (HCC) Type II or unspecified type diabetes mellitus with neurological manifestations, not stated as uncontrolled CKD (chronic kidney disease) stage 3, GFR 30-59 ml/min (HCC) Chronic kidney disease, Stage III (moderate) Morbid obesity, unspecified obesity type (HCC) Prostate cancer screening- Primary Special screening for malignant neoplasm of prostate Controlled type 2 diabetes mellitus without complication, unspecified retirement insulin use status Essential hypertension Unspecified essential hypertension Mixed hyperlipidemia Paroxysmal atrial fibrillation (HCC) Atrial fibrillation Hypokalemia- Primary Hypopotassemia documented in this encounter 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) [place] on CPAP Obstructive sleep apnea (adult) (pediatric) Tobacco use disorder Dual implantable cardioverter-defibrillator in situ Automatic implantable cardiac defibrillator in situ Need for vaccination Need for prophylactic vaccination and inoculation against unspecified single disease Nocturia Hypokalemia Hypopotassemia Essential hypertension Unspecified essential hypertension Mixed hyperlipidemia DM (diabetes mellitus), type 2 with neurological complications (HCC) Type II or unspecified type diabetes mellitus with neurological manifestations, not stated as uncontrolled CKD (chronic kidney disease) stage 3, GFR 30-59 ml/min (HCC) Chronic kidney disease, Stage III (moderate) Morbid obesity, unspecified obesity type (HCC) Prostate cancer screening- Primary Special screening for malignant neoplasm of prostate Controlled type 2 diabetes mellitus without complication, unspecified rodent exterminator insulin use status Essential hypertension Unspecified essential hypertension Mixed hyperlipidemia Paroxysmal atrial fibrillation (HCC) Atrial fibrillation Episode of change in speech- Primary Other speech disturbance Balance problem Other symptoms involving nervous and musculoskeletal systems Recurrent major depressive disorder, in partial remission (HCC) Hypokalemia Hypopotassemia [facility] Diagnosis Controlled type 2 diabetes mellitus without complication, unspecified rodent exterminator insulin use status- Primary DM (diabetes mellitus), type 2 with neurological complications (HCC) Type II or unspecified type diabetes mellitus with neurological manifestations, not stated as uncontrolled Mixed hyperlipidemia 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) [place] on CPAP Obstructive sleep apnea (adult) (pediatric) Tobacco use disorder Dual implantable cardioverter-defibrillator in situ Automatic implantable cardiac defibrillator in situ Need for vaccination Need for prophylactic vaccination and inoculation against unspecified single disease Nocturia Hypokalemia Hypopotassemia Essential hypertension Unspecified essential hypertension Mixed hyperlipidemia DM (diabetes mellitus), type 2 with neurological complications (HCC) Type II or unspecified type diabetes mellitus with neurological manifestations, not stated as uncontrolled CKD (chronic kidney disease) stage 3, GFR 30-59 ml/min (HCC) Chronic kidney disease, Stage III (moderate) Morbid obesity, unspecified obesity type (HCC) Prostate cancer screening- Primary Special screening for malignant neoplasm of prostate Controlled type 2 diabetes mellitus without complication, unspecified rodent exterminator insulin use status Essential hypertension Unspecified essential hypertension Mixed hyperlipidemia Paroxysmal atrial fibrillation (HCC) Atrial fibrillation Pacemaker- Primary Cardiac pacemaker in situ documented in this encounter 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) [place] on CPAP Obstructive sleep apnea (adult) (pediatric) Tobacco use disorder Dual implantable cardioverter-defibrillator in situ Automatic implantable cardiac defibrillator in situ Need for vaccination Need for prophylactic vaccination and inoculation against unspecified single disease Nocturia Hypokalemia Hypopotassemia Essential hypertension Unspecified essential hypertension Mixed hyperlipidemia DM (diabetes mellitus), type 2 with neurological complications (HCC) Type II or unspecified type diabetes mellitus with neurological manifestations, not stated as uncontrolled CKD (chronic kidney disease) stage 3, GFR 30-59 ml/min (HCC) Chronic kidney disease, Stage III (moderate) Morbid obesity, unspecified obesity type (HCC) Prostate cancer screening- Primary Special screening for malignant neoplasm of prostate Controlled type 2 diabetes mellitus without complication, unspecified retirement insulin use status Essential hypertension Unspecified essential hypertension Mixed hyperlipidemia Paroxysmal atrial fibrillation (HCC) Atrial fibrillation B12 deficiency- Primary Other B-complex deficiencies documented in this encounter 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) [place] on CPAP Obstructive sleep apnea (adult) (pediatric) Tobacco use disorder Dual implantable cardioverter-defibrillator in situ Automatic implantable cardiac defibrillator in situ Need for vaccination Need for prophylactic vaccination and inoculation against unspecified single disease Nocturia Hypokalemia Hypopotassemia Essential hypertension Unspecified essential hypertension Mixed hyperlipidemia DM (diabetes mellitus), type 2 with neurological complications (HCC) Type II or unspecified type diabetes mellitus with neurological manifestations, not stated as uncontrolled CKD (chronic kidney disease) stage 3, GFR 30-59 ml/min (HCC) Chronic kidney disease, Stage III (moderate) Morbid obesity, unspecified obesity type (HCC) Prostate cancer screening- Primary Special screening for malignant neoplasm of prostate Controlled type 2 diabetes mellitus without complication, unspecified retirement insulin use status Essential hypertension Unspecified essential hypertension Mixed hyperlipidemia Paroxysmal atrial fibrillation (HCC) Atrial fibrillation Anticoagulated on Coumadin- Primary Encounter for therapeutic drug monitoring Paroxysmal atrial fibrillation (HCC) Atrial fibrillation documented in this encounter 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) [place] on CPAP Obstructive sleep apnea (adult) (pediatric) Tobacco use disorder Dual implantable cardioverter-defibrillator in situ Automatic implantable cardiac defibrillator in situ Need for vaccination Need for prophylactic vaccination and inoculation against unspecified single disease Nocturia Hypokalemia Hypopotassemia Essential hypertension Unspecified essential hypertension Mixed hyperlipidemia DM (diabetes mellitus), type 2 with neurological complications (HCC) Type II or unspecified type diabetes mellitus with neurological manifestations, not stated as uncontrolled CKD (chronic kidney disease) stage 3, GFR 30-59 ml/min (HCC) Chronic kidney disease, Stage III (moderate) Morbid obesity, unspecified obesity type (HCC) Prostate cancer screening- Primary Special screening for malignant neoplasm of prostate Controlled type 2 diabetes mellitus without complication, unspecified retirement insulin use status Essential hypertension Unspecified essential hypertension Mixed hyperlipidemia Paroxysmal atrial fibrillation (HCC) Atrial fibrillation Type 2 diabetes mellitus with diabetic mononeuropathy, with long-term current use of insulin (HCC)- Primary Paroxysmal atrial fibrillation (HCC) Atrial fibrillation Dizziness Dizziness and giddiness Encounter for immunization Need for other specified prophylactic vaccination against single bacterial disease documented in this encounter 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) [place] on CPAP Obstructive sleep apnea (adult) (pediatric) Tobacco use disorder Dual implantable cardioverter-defibrillator in situ Automatic implantable cardiac defibrillator in situ Need for vaccination Need for prophylactic vaccination and inoculation against unspecified single disease Nocturia Hypokalemia Hypopotassemia Essential hypertension Unspecified essential hypertension Mixed hyperlipidemia DM (diabetes mellitus), type 2 with neurological complications (HCC) Type II or unspecified type diabetes mellitus with neurological manifestations, not stated as uncontrolled CKD (chronic kidney disease) stage 3, GFR 30-59 ml/min (HCC) Chronic kidney disease, Stage III (moderate) Morbid obesity, unspecified obesity type (HCC) Prostate cancer screening- Primary Special screening for malignant neoplasm of prostate Controlled type 2 diabetes mellitus without complication, unspecified rodent exterminator insulin use status Essential hypertension Unspecified essential hypertension Mixed hyperlipidemia Paroxysmal atrial fibrillation (HCC) Atrial fibrillation Anticoagulated on Coumadin- Primary Encounter for therapeutic drug monitoring Paroxysmal atrial fibrillation (HCC) Atrial fibrillation [facility]* Diagnosis Controlled type 2 diabetes mellitus without complication, unspecified rodent exterminator insulin use status- Primary DM (diabetes mellitus), type 2 with neurological complications (HCC) Type II or unspecified type diabetes mellitus with neurological manifestations, not stated as uncontrolled Mixed hyperlipidemia 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) [place] on CPAP Obstructive sleep apnea (adult) (pediatric) Tobacco use disorder Dual implantable cardioverter-defibrillator in situ Automatic implantable cardiac defibrillator in situ Need for vaccination Need for prophylactic vaccination and inoculation against unspecified single disease Nocturia Hypokalemia Hypopotassemia Essential hypertension Unspecified essential hypertension Mixed hyperlipidemia DM (diabetes mellitus), type 2 with neurological complications (HCC) Type II or unspecified type diabetes mellitus with neurological manifestations, not stated as uncontrolled CKD (chronic kidney disease) stage 3, GFR 30-59 ml/min (HCC) Chronic kidney disease, Stage III (moderate) Morbid obesity, unspecified obesity type (HCC) Prostate cancer screening- Primary Special screening for malignant neoplasm of prostate Controlled type 2 diabetes mellitus without complication, unspecified retirement insulin use status Essential hypertension Unspecified essential hypertension Mixed hyperlipidemia Paroxysmal atrial fibrillation (HCC) Atrial fibrillation Other fatigue- Primary Left-sided weakness Muscle weakness (generalized) Shortness of breath Memory change Memory loss Hypokalemia Hypopotassemia Nocturia [facility] Diagnosis Controlled type 2 diabetes mellitus without complication, unspecified retirement insulin use status- Primary DM (diabetes mellitus), type 2 with neurological complications (HCC) Type II or unspecified type diabetes mellitus with neurological manifestations, not stated as uncontrolled Mixed hyperlipidemia 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) [place] on CPAP Obstructive sleep apnea (adult) (pediatric) Tobacco use disorder Dual implantable cardioverter-defibrillator in situ Automatic implantable cardiac defibrillator in situ Need for vaccination Need for prophylactic vaccination and inoculation against unspecified single disease Nocturia Hypokalemia Hypopotassemia Essential hypertension Unspecified essential hypertension Mixed hyperlipidemia DM (diabetes mellitus), type 2 with neurological complications (HCC) Type II or unspecified type diabetes mellitus with neurological manifestations, not stated as uncontrolled CKD (chronic kidney disease) stage 3, GFR 30-59 ml/min (HCC) Chronic kidney disease, Stage III (moderate) Morbid obesity, unspecified obesity type (HCC) Prostate cancer screening- Primary Special screening for malignant neoplasm of prostate Controlled type 2 diabetes mellitus without complication, unspecified retirement insulin use status Essential hypertension Unspecified essential hypertension Mixed hyperlipidemia Paroxysmal atrial fibrillation (HCC) Atrial fibrillation B12 deficiency- Primary Other B-complex deficiencies [facility] Diagnosis Controlled type 2 diabetes mellitus without complication, unspecified retirement insulin use status- Primary DM (diabetes mellitus), type 2 with neurological complications (HCC) Type II or unspecified type diabetes mellitus with neurological manifestations, not stated as uncontrolled Mixed hyperlipidemia 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) [place] on CPAP Obstructive sleep apnea (adult) (pediatric) Tobacco use disorder Dual implantable cardioverter-defibrillator in situ Automatic implantable cardiac defibrillator in situ Need for vaccination Need for prophylactic vaccination and inoculation against unspecified single disease Nocturia Hypokalemia Hypopotassemia Essential hypertension Unspecified essential hypertension Mixed hyperlipidemia DM (diabetes mellitus), type 2 with neurological complications (HCC) Type II or unspecified type diabetes mellitus with neurological manifestations, not stated as uncontrolled CKD (chronic kidney disease) stage 3, GFR 30-59 ml/min (HCC) Chronic kidney disease, Stage III (moderate) Morbid obesity, unspecified obesity type (HCC) Prostate cancer screening- Primary Special screening for malignant neoplasm of prostate Controlled type 2 diabetes mellitus without complication, unspecified retirement insulin use status Essential hypertension Unspecified essential hypertension Mixed hyperlipidemia Paroxysmal atrial fibrillation (HCC) Atrial fibrillation B12 deficiency- Primary Other B-complex deficiencies Iron deficiency anemia, unspecified iron deficiency anemia type Stage 3a chronic kidney disease (HCC) Iron malabsorption Other specified intestinal malabsorption [facility] Diagnosis Controlled type 2 diabetes mellitus without complication, unspecified rodent exterminator insulin use status- Primary DM (diabetes mellitus), type 2 with neurological complications (HCC) Type II or unspecified type diabetes mellitus with neurological manifestations, not stated as uncontrolled Mixed hyperlipidemia 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) [place] on CPAP Obstructive sleep apnea (adult) (pediatric) Tobacco use disorder Dual implantable cardioverter-defibrillator in situ Automatic implantable cardiac defibrillator in situ Need for vaccination Need for prophylactic vaccination and inoculation against unspecified single disease Nocturia Hypokalemia Hypopotassemia Essential hypertension Unspecified essential hypertension Mixed hyperlipidemia DM (diabetes mellitus), type 2 with neurological complications (HCC) Type II or unspecified type diabetes mellitus with neurological manifestations, not stated as uncontrolled CKD (chronic kidney disease) stage 3, GFR 30-59 ml/min (HCC) Chronic kidney disease, Stage III (moderate) Morbid obesity, unspecified obesity type (HCC) Prostate cancer screening- Primary Special screening for malignant neoplasm of prostate Controlled type 2 diabetes mellitus without complication, unspecified retirement insulin use status Essential hypertension Unspecified essential hypertension Mixed hyperlipidemia Paroxysmal atrial fibrillation (HCC) Atrial fibrillation Anticoagulated on Coumadin- Primary Encounter for therapeutic drug monitoring Paroxysmal atrial fibrillation (HCC) Atrial fibrillation documented in this encounter 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) [place] on CPAP Obstructive sleep apnea (adult) (pediatric) Tobacco use disorder Dual implantable cardioverter-defibrillator in situ Automatic implantable cardiac defibrillator in situ Need for vaccination Need for prophylactic vaccination and inoculation against unspecified single disease Nocturia Hypokalemia Hypopotassemia Essential hypertension Unspecified essential hypertension Mixed hyperlipidemia DM (diabetes mellitus), type 2 with neurological complications (HCC) Type II or unspecified type diabetes mellitus with neurological manifestations, not stated as uncontrolled CKD (chronic kidney disease) stage 3, GFR 30-59 ml/min (HCC) Chronic kidney disease, Stage III (moderate) Morbid obesity, unspecified obesity type (HCC) Prostate cancer screening- Primary Special screening for malignant neoplasm of prostate Controlled type 2 diabetes mellitus without complication, unspecified rodent exterminator insulin use status Essential hypertension Unspecified essential hypertension Mixed hyperlipidemia Paroxysmal atrial fibrillation (HCC) Atrial fibrillation B12 deficiency- Primary Other B-complex deficiencies Iron deficiency anemia secondary to inadequate dietary iron intake Iron malabsorption Other specified intestinal malabsorption Stage 3a chronic kidney disease (HCC) documented in this encounter 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) [place] on CPAP Obstructive sleep apnea (adult) (pediatric) Tobacco use disorder Dual implantable cardioverter-defibrillator in situ Automatic implantable cardiac defibrillator in situ Need for vaccination Need for prophylactic vaccination and inoculation against unspecified single disease Nocturia Hypokalemia Hypopotassemia Essential hypertension Unspecified essential hypertension Mixed hyperlipidemia DM (diabetes mellitus), type 2 with neurological complications (HCC) Type II or unspecified type diabetes mellitus with neurological manifestations, not stated as uncontrolled CKD (chronic kidney disease) stage 3, GFR 30-59 ml/min (HCC) Chronic kidney disease, Stage III (moderate) Morbid obesity, unspecified obesity type (HCC) Prostate cancer screening- Primary Special screening for malignant neoplasm of prostate Controlled type 2 diabetes mellitus without complication, unspecified rodent exterminator insulin use status Essential hypertension Unspecified essential hypertension Mixed hyperlipidemia Paroxysmal atrial fibrillation (HCC) Atrial fibrillation B12 deficiency- Primary Other B-complex deficiencies Iron deficiency anemia secondary to inadequate dietary iron intake Iron malabsorption Other specified intestinal malabsorption Stage 3a chronic kidney disease (HCC) [facility] Diagnosis Controlled type 2 diabetes mellitus without complication, unspecified rodent exterminator insulin use status- Primary DM (diabetes mellitus), type 2 with neurological complications (HCC) Type II or unspecified type diabetes mellitus with neurological manifestations, not stated as uncontrolled Mixed hyperlipidemia 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) [place] on CPAP Obstructive sleep apnea (adult) (pediatric) Tobacco use disorder Dual implantable cardioverter-defibrillator in situ Automatic implantable cardiac defibrillator in situ Need for vaccination Need for prophylactic vaccination and inoculation against unspecified single disease Nocturia Hypokalemia Hypopotassemia Essential hypertension Unspecified essential hypertension Mixed hyperlipidemia DM (diabetes mellitus), type 2 with neurological complications (HCC) Type II or unspecified type diabetes mellitus with neurological manifestations, not stated as uncontrolled CKD (chronic kidney disease) stage 3, GFR 30-59 ml/min (HCC) Chronic kidney disease, Stage III (moderate) Morbid obesity, unspecified obesity type (HCC) Prostate cancer screening- Primary Special screening for malignant neoplasm of prostate Controlled type 2 diabetes mellitus without complication, unspecified retirement insulin use status Essential hypertension Unspecified essential hypertension Mixed hyperlipidemia Paroxysmal atrial fibrillation (HCC) Atrial fibrillation Wheelchair dependent- Primary Wheelchair dependence documented in this encounter 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) [place] on CPAP Obstructive sleep apnea (adult) (pediatric) Tobacco use disorder Dual implantable cardioverter-defibrillator in situ Automatic implantable cardiac defibrillator in situ Need for vaccination Need for prophylactic vaccination and inoculation against unspecified single disease Nocturia Hypokalemia Hypopotassemia Essential hypertension Unspecified essential hypertension Mixed hyperlipidemia DM (diabetes mellitus), type 2 with neurological complications (HCC) Type II or unspecified type diabetes mellitus with neurological manifestations, not stated as uncontrolled CKD (chronic kidney disease) stage 3, GFR 30-59 ml/min (HCC) Chronic kidney disease, Stage III (moderate) Morbid obesity, unspecified obesity type (HCC) Prostate cancer screening- Primary Special screening for malignant neoplasm of prostate Controlled type 2 diabetes mellitus without complication, unspecified retirement insulin use status Essential hypertension Unspecified essential hypertension Mixed hyperlipidemia Paroxysmal atrial fibrillation (HCC) Atrial fibrillation B12 deficiency- Primary Other B-complex deficiencies Iron deficiency anemia secondary to inadequate dietary iron intake Iron malabsorption Other specified intestinal malabsorption Stage 3a chronic kidney disease (HCC) documented in this encounter 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) [place] on CPAP Obstructive sleep apnea (adult) (pediatric) Tobacco use disorder Dual implantable cardioverter-defibrillator in situ Automatic implantable cardiac defibrillator in situ Need for vaccination Need for prophylactic vaccination and inoculation against unspecified single disease Nocturia Hypokalemia Hypopotassemia Essential hypertension Unspecified essential hypertension Mixed hyperlipidemia DM (diabetes mellitus), type 2 with neurological complications (HCC) Type II or unspecified type diabetes mellitus with neurological manifestations, not stated as uncontrolled CKD (chronic kidney disease) stage 3, GFR 30-59 ml/min (HCC) Chronic kidney disease, Stage III (moderate) Morbid obesity, unspecified obesity type (HCC) Prostate cancer screening- Primary Special screening for malignant neoplasm of prostate Controlled type 2 diabetes mellitus without complication, unspecified retirement insulin use status Essential hypertension Unspecified essential hypertension Mixed hyperlipidemia Paroxysmal atrial fibrillation (HCC) Atrial fibrillation B12 deficiency- Primary Other B-complex deficiencies Iron deficiency anemia secondary to inadequate dietary iron intake Iron malabsorption Other specified intestinal malabsorption Stage 3a chronic kidney disease (HCC) [facility]* Diagnosis Controlled type 2 diabetes mellitus without complication, unspecified retirement insulin use status- Primary DM (diabetes mellitus), type 2 with neurological complications (HCC) Type II or unspecified type diabetes mellitus with neurological manifestations, not stated as uncontrolled Mixed hyperlipidemia 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) [place] on CPAP Obstructive sleep apnea (adult) (pediatric) Tobacco use disorder Dual implantable cardioverter-defibrillator in situ Automatic implantable cardiac defibrillator in situ Need for vaccination Need for prophylactic vaccination and inoculation against unspecified single disease Nocturia Hypokalemia Hypopotassemia Essential hypertension Unspecified essential hypertension Mixed hyperlipidemia DM (diabetes mellitus), type 2 with neurological complications (HCC) Type II or unspecified type diabetes mellitus with neurological manifestations, not stated as uncontrolled CKD (chronic kidney disease) stage 3, GFR 30-59 ml/min (HCC) Chronic kidney disease, Stage III (moderate) Morbid obesity, unspecified obesity type (HCC) Prostate cancer screening- Primary Special screening for malignant neoplasm of prostate Controlled type 2 diabetes mellitus without complication, unspecified rodent exterminator insulin use status Essential hypertension Unspecified essential hypertension Mixed hyperlipidemia Paroxysmal atrial fibrillation (HCC) Atrial fibrillation Iron deficiency anemia secondary to inadequate dietary iron intake- Primary B12 deficiency Other B-complex deficiencies Iron malabsorption Other specified intestinal malabsorption Stage 3a chronic kidney disease (HCC) [facility] Diagnosis Controlled type 2 diabetes mellitus without complication, unspecified retirement insulin use status- Primary DM (diabetes mellitus), type 2 with neurological complications (HCC) Type II or unspecified type diabetes mellitus with neurological manifestations, not stated as uncontrolled Mixed hyperlipidemia 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) [place] on CPAP Obstructive sleep apnea (adult) (pediatric) Tobacco use disorder Dual implantable cardioverter-defibrillator in situ Automatic implantable cardiac defibrillator in situ Need for vaccination Need for prophylactic vaccination and inoculation against unspecified single disease Nocturia Hypokalemia Hypopotassemia Essential hypertension Unspecified essential hypertension Mixed hyperlipidemia DM (diabetes mellitus), type 2 with neurological complications (HCC) Type II or unspecified type diabetes mellitus with neurological manifestations, not stated as uncontrolled CKD (chronic kidney disease) stage 3, GFR 30-59 ml/min (HCC) Chronic kidney disease, Stage III (moderate) Morbid obesity, unspecified obesity type (HCC) Prostate cancer screening- Primary Special screening for malignant neoplasm of prostate Controlled type 2 diabetes mellitus without complication, unspecified rodent exterminator insulin use status Essential hypertension Unspecified essential hypertension Mixed hyperlipidemia Paroxysmal atrial fibrillation (HCC) Atrial fibrillation Anticoagulated on Coumadin- Primary Encounter for therapeutic drug monitoring Paroxysmal atrial fibrillation (HCC) Atrial fibrillation [facility]* Diagnosis Controlled type 2 diabetes mellitus without complication, unspecified rodent exterminator insulin use status- Primary DM (diabetes mellitus), type 2 with neurological complications (HCC) Type II or unspecified type diabetes mellitus with neurological manifestations, not stated as uncontrolled Mixed hyperlipidemia 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) [place] on CPAP Obstructive sleep apnea (adult) (pediatric) Tobacco use disorder Dual implantable cardioverter-defibrillator in situ Automatic implantable cardiac defibrillator in situ Need for vaccination Need for prophylactic vaccination and inoculation against unspecified single disease Nocturia Hypokalemia Hypopotassemia Essential hypertension Unspecified essential hypertension Mixed hyperlipidemia DM (diabetes mellitus), type 2 with neurological complications (HCC) Type II or unspecified type diabetes mellitus with neurological manifestations, not stated as uncontrolled CKD (chronic kidney disease) stage 3, GFR 30-59 ml/min (HCC) Chronic kidney disease, Stage III (moderate) Morbid obesity, unspecified obesity type (HCC) Prostate cancer screening- Primary Special screening for malignant neoplasm of prostate Controlled type 2 diabetes mellitus without complication, unspecified rodent exterminator insulin use status Essential hypertension Unspecified essential hypertension Mixed hyperlipidemia Paroxysmal atrial fibrillation (HCC) Atrial fibrillation B12 deficiency- Primary Other B-complex deficiencies documented in this encounter 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) [place] on CPAP Obstructive sleep apnea (adult) (pediatric) Tobacco use disorder Dual implantable cardioverter-defibrillator in situ Automatic implantable cardiac defibrillator in situ Need for vaccination Need for prophylactic vaccination and inoculation against unspecified single disease Nocturia Hypokalemia Hypopotassemia Essential hypertension Unspecified essential hypertension Mixed hyperlipidemia DM (diabetes mellitus), type 2 with neurological complications (HCC) Type II or unspecified type diabetes mellitus with neurological manifestations, not stated as uncontrolled CKD (chronic kidney disease) stage 3, GFR 30-59 ml/min (HCC) Chronic kidney disease, Stage III (moderate) Morbid obesity, unspecified obesity type (HCC) Prostate cancer screening- Primary Special screening for malignant neoplasm of prostate Controlled type 2 diabetes mellitus without complication, unspecified retirement insulin use status Essential hypertension Unspecified essential hypertension Mixed hyperlipidemia Paroxysmal atrial fibrillation (HCC) Atrial fibrillation Anticoagulated on Coumadin- Primary Encounter for therapeutic drug monitoring Paroxysmal atrial fibrillation (HCC) Atrial [facility] Diagnosis Controlled type 2 diabetes mellitus without complication, unspecified retirement insulin use status- Primary DM (diabetes mellitus), type 2 with neurological complications (HCC) Type II or unspecified type diabetes mellitus with neurological manifestations, not stated as uncontrolled Mixed hyperlipidemia 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) [place] on CPAP Obstructive sleep apnea (adult) (pediatric) Tobacco use disorder Dual implantable cardioverter-defibrillator in situ Automatic implantable cardiac defibrillator in situ Need for vaccination Need for prophylactic vaccination and inoculation against unspecified single disease Nocturia Hypokalemia Hypopotassemia Essential hypertension Unspecified essential hypertension Mixed hyperlipidemia DM (diabetes mellitus), type 2 with neurological complications (HCC) Type II or unspecified type diabetes mellitus with neurological manifestations, not stated as uncontrolled CKD (chronic kidney disease) stage 3, GFR 30-59 ml/min (HCC) Chronic kidney disease, Stage III (moderate) Morbid obesity, unspecified obesity type (HCC) Prostate cancer screening- Primary Special screening for malignant neoplasm of prostate Controlled type 2 diabetes mellitus without complication, unspecified rodent exterminator insulin use status Essential hypertension Unspecified essential hypertension Mixed hyperlipidemia Paroxysmal atrial fibrillation (HCC) Atrial fibrillation Anticoagulated on Coumadin- Primary Encounter for therapeutic drug monitoring Paroxysmal atrial fibrillation (HCC) Atrial fibrillation documented in this encounter 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) [place] on CPAP Obstructive sleep apnea (adult) (pediatric) Tobacco use disorder Dual implantable cardioverter-defibrillator in situ Automatic implantable cardiac defibrillator in situ Need for vaccination Need for prophylactic vaccination and inoculation against unspecified single disease Nocturia Hypokalemia Hypopotassemia Essential hypertension Unspecified essential hypertension Mixed hyperlipidemia DM (diabetes mellitus), type 2 with neurological complications (HCC) Type II or unspecified type diabetes mellitus with neurological manifestations, not stated as uncontrolled CKD (chronic kidney disease) stage 3, GFR 30-59 ml/min (HCC) Chronic kidney disease, Stage III (moderate) Morbid obesity, unspecified obesity type (HCC) Prostate cancer screening- Primary Special screening for malignant neoplasm of prostate Controlled type 2 diabetes mellitus without complication, unspecified retirement insulin use status Essential hypertension Unspecified essential hypertension Mixed hyperlipidemia Paroxysmal atrial fibrillation (HCC) Atrial fibrillation B12 deficiency- Primary Other B-complex deficiencies [facility] Diagnosis Controlled type 2 diabetes mellitus without complication, unspecified rodent exterminator insulin use status- Primary DM (diabetes mellitus), type 2 with neurological complications (HCC) Type II or unspecified type diabetes mellitus with neurological manifestations, not stated as uncontrolled Mixed hyperlipidemia 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) [place] on CPAP Obstructive sleep apnea (adult) (pediatric) Tobacco use disorder Dual implantable cardioverter-defibrillator in situ Automatic implantable cardiac defibrillator in situ Need for vaccination Need for prophylactic vaccination and inoculation against unspecified single disease Nocturia Hypokalemia Hypopotassemia Essential hypertension Unspecified essential hypertension Mixed hyperlipidemia DM (diabetes mellitus), type 2 with neurological complications (HCC) Type II or unspecified type diabetes mellitus with neurological manifestations, not stated as uncontrolled CKD (chronic kidney disease) stage 3, GFR 30-59 ml/min (HCC) Chronic kidney disease, Stage III (moderate) Morbid obesity, unspecified obesity type (HCC) Prostate cancer screening- Primary Special screening for malignant neoplasm of prostate Controlled type 2 diabetes mellitus without complication, unspecified rodent exterminator insulin use status Essential hypertension Unspecified essential hypertension Mixed hyperlipidemia Paroxysmal atrial fibrillation (HCC) Atrial fibrillation Diabetic gastropathy (HCC)- Primary Type II or unspecified type diabetes mellitus with other specified manifestations, not stated as uncontrolled Chronic systolic heart failure (HCC) Chronic systolic heart failure Psoriatic arthritis (HCC) Psoriatic arthropathy Atrial fibrillation, persistent (HCC) Atrial fibrillation Morbid obesity (HCC) Morbid obesity 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) Stage 3a chronic kidney disease (HCC) Anemia, unspecified type Other hypervolemia Type 2 diabetes mellitus with stage 3a chronic kidney disease, with long-term current use of insulin (HCC) Weight gain Abnormal weight gain Fatigue, unspecified type Hypokalemia Hypopotassemia Nocturia Pure hypercholesterolemia Medicare annual wellness visit, subsequent Routine general medical examination at a health care facility documented [facility]* Diagnosis Controlled type 2 diabetes mellitus without complication, unspecified retirement insulin use status- Primary DM (diabetes mellitus), type 2 with neurological complications (HCC) Type II or unspecified type diabetes mellitus with neurological manifestations, not stated as uncontrolled Mixed hyperlipidemia 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) [place] on CPAP Obstructive sleep apnea (adult) (pediatric) Tobacco use disorder Dual implantable cardioverter-defibrillator in situ Automatic implantable cardiac defibrillator in situ Need for vaccination Need for prophylactic vaccination and inoculation against unspecified single disease Nocturia Hypokalemia Hypopotassemia Essential hypertension Unspecified essential hypertension Mixed hyperlipidemia DM (diabetes mellitus), type 2 with neurological complications (HCC) Type II or unspecified type diabetes mellitus with neurological manifestations, not stated as uncontrolled CKD (chronic kidney disease) stage 3, GFR 30-59 ml/min (HCC) Chronic kidney disease, Stage III (moderate) Morbid obesity, unspecified obesity type (HCC) Prostate cancer screening- Primary Special screening for malignant neoplasm of prostate Controlled type 2 diabetes mellitus without complication, unspecified rodent exterminator insulin use status Essential hypertension Unspecified essential hypertension Mixed hyperlipidemia Paroxysmal atrial fibrillation (HCC) Atrial fibrillation Anticoagulated on Coumadin- Primary Encounter for therapeutic drug monitoring Paroxysmal atrial fibrillation (HCC) Atrial fibrillation documented in this encounter 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) [place] on CPAP Obstructive sleep apnea (adult) (pediatric) Tobacco use disorder Dual implantable cardioverter-defibrillator in situ Automatic implantable cardiac defibrillator in situ Need for vaccination Need for prophylactic vaccination and inoculation against unspecified single disease Nocturia Hypokalemia Hypopotassemia Essential hypertension Unspecified essential hypertension Mixed hyperlipidemia DM (diabetes mellitus), type 2 with neurological complications (HCC) Type II or unspecified type diabetes mellitus with neurological manifestations, not stated as uncontrolled CKD (chronic kidney disease) stage 3, GFR 30-59 ml/min (HCC) Chronic kidney disease, Stage III (moderate) Morbid obesity, unspecified obesity type (HCC) Prostate cancer screening- Primary Special screening for malignant neoplasm of prostate Controlled type 2 diabetes mellitus without complication, unspecified retirement insulin use status Essential hypertension Unspecified essential hypertension Mixed hyperlipidemia Paroxysmal atrial fibrillation (HCC) Atrial fibrillation B12 deficiency- Primary Other B-complex deficiencies documented in this encounter 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) [place] on CPAP Obstructive sleep apnea (adult) (pediatric) Tobacco use disorder Dual implantable cardioverter-defibrillator in situ Automatic implantable cardiac defibrillator in situ Need for vaccination Need for prophylactic vaccination and inoculation against unspecified single disease Nocturia Hypokalemia Hypopotassemia Essential hypertension Unspecified essential hypertension Mixed hyperlipidemia DM (diabetes mellitus), type 2 with neurological complications (HCC) Type II or unspecified type diabetes mellitus with neurological manifestations, not stated as uncontrolled CKD (chronic kidney disease) stage 3, GFR 30-59 ml/min (HCC) Chronic kidney disease, Stage III (moderate) Morbid obesity, unspecified obesity type (HCC) Prostate cancer screening- Primary Special screening for malignant neoplasm of prostate Controlled type 2 diabetes mellitus without complication, unspecified retirement insulin use status Essential hypertension Unspecified essential hypertension Mixed hyperlipidemia Paroxysmal atrial fibrillation (HCC) Atrial fibrillation Vitamin D deficiency- Primary Unspecified vitamin D deficiency Type 2 diabetes mellitus with diabetic mononeuropathy, with long-term current use of insulin (HCC) Diabetic gastropathy (HCC) Type II or unspecified type diabetes mellitus with other specified manifestations, not stated as uncontrolled Iron deficiency Iron deficiency anemia, unspecified Pure hypercholesterolemia Essential hypertension Unspecified essential hypertension Hypothyroidism, unspecified type Psoriatic arthritis (HCC) Psoriatic arthropathy SVT (supraventricular tachycardia) (HCC) Other specified cardiac dysrhythmias Morbid obesity (HCC) Morbid obesity [place] on CPAP Obstructive sleep apnea (adult) (pediatric) Fall, sequela Fall, initial encounter documented in this encounter 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) [place] on CPAP Obstructive sleep apnea (adult) (pediatric) Tobacco use disorder Dual implantable cardioverter-defibrillator in situ Automatic implantable cardiac defibrillator in situ Need for vaccination Need for prophylactic vaccination and inoculation against unspecified single disease Nocturia Hypokalemia Hypopotassemia Essential hypertension Unspecified essential hypertension Mixed hyperlipidemia DM (diabetes mellitus), type 2 with neurological complications (HCC) Type II or unspecified type diabetes mellitus with neurological manifestations, not stated as uncontrolled CKD (chronic kidney disease) stage 3, GFR 30-59 ml/min (HCC) Chronic kidney disease, Stage III (moderate) Morbid obesity, unspecified obesity type (HCC) Prostate cancer screening- Primary Special screening for malignant neoplasm of prostate Controlled type 2 diabetes mellitus without complication, unspecified retirement insulin use status Essential hypertension Unspecified essential hypertension Mixed hyperlipidemia Paroxysmal atrial fibrillation (HCC) Atrial fibrillation Fall, initial encounter documented in this encounter 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) [place] on CPAP Obstructive sleep apnea (adult) (pediatric) Tobacco use disorder Dual implantable cardioverter-defibrillator in situ Automatic implantable cardiac defibrillator in situ Need for vaccination Need for prophylactic vaccination and inoculation against unspecified single disease Nocturia Hypokalemia Hypopotassemia Essential hypertension Unspecified essential hypertension Mixed hyperlipidemia DM (diabetes mellitus), type 2 with neurological complications (HCC) Type II or unspecified type diabetes mellitus with neurological manifestations, not stated as uncontrolled CKD (chronic kidney disease) stage 3, GFR 30-59 ml/min (HCC) Chronic kidney disease, Stage III (moderate) Morbid obesity, unspecified obesity type (HCC) Prostate cancer screening- Primary Special screening for malignant neoplasm of prostate Controlled type 2 diabetes mellitus without complication, unspecified rodent exterminator insulin use status Essential hypertension Unspecified essential hypertension Mixed hyperlipidemia Paroxysmal atrial fibrillation (HCC) Atrial fibrillation B12 deficiency- Primary Other B-complex deficiencies documented in this encounter 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) [place] on CPAP Obstructive sleep apnea (adult) (pediatric) Tobacco use disorder Dual implantable cardioverter-defibrillator in situ Automatic implantable cardiac defibrillator in situ Need for vaccination Need for prophylactic vaccination and inoculation against unspecified single disease Nocturia Hypokalemia Hypopotassemia Essential hypertension Unspecified essential hypertension Mixed hyperlipidemia DM (diabetes mellitus), type 2 with neurological complications (HCC) Type II or unspecified type diabetes mellitus with neurological manifestations, not stated as uncontrolled CKD (chronic kidney disease) stage 3, GFR 30-59 ml/min (HCC) Chronic kidney disease, Stage III (moderate) Morbid obesity, unspecified obesity type (HCC) Prostate cancer screening- Primary Special screening for malignant neoplasm of prostate Controlled type 2 diabetes mellitus without complication, unspecified rodent exterminator insulin use status Essential hypertension Unspecified essential hypertension Mixed hyperlipidemia Paroxysmal atrial fibrillation (HCC) Atrial fibrillation Anticoagulated on Coumadin- Primary Encounter for therapeutic drug monitoring Paroxysmal atrial fibrillation (HCC) [facility] Diagnosis Controlled type 2 diabetes mellitus without complication, unspecified rodent exterminator insulin use status- Primary DM (diabetes mellitus), type 2 with neurological complications (HCC) Type II or unspecified type diabetes mellitus with neurological manifestations, not stated as uncontrolled Mixed hyperlipidemia 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) [place] on CPAP Obstructive sleep apnea (adult) (pediatric) Tobacco use disorder Dual implantable cardioverter-defibrillator in situ Automatic implantable cardiac defibrillator in situ Need for vaccination Need for prophylactic vaccination and inoculation against unspecified single disease Nocturia Hypokalemia Hypopotassemia Essential hypertension Unspecified essential hypertension Mixed hyperlipidemia DM (diabetes mellitus), type 2 with neurological complications (HCC) Type II or unspecified type diabetes mellitus with neurological manifestations, not stated as uncontrolled CKD (chronic kidney disease) stage 3, GFR 30-59 ml/min (HCC) Chronic kidney disease, Stage III (moderate) Morbid obesity, unspecified obesity type (HCC) Prostate cancer screening- Primary Special screening for malignant neoplasm of prostate Controlled type 2 diabetes mellitus without complication, unspecified retirement insulin use status Essential hypertension Unspecified essential hypertension Mixed hyperlipidemia Paroxysmal atrial fibrillation (HCC) Atrial fibrillation Paroxysmal atrial fibrillation (HCC) Atrial fibrillation Hypomagnesemia Disorders of magnesium metabolism documented in this encounter 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) [place] on CPAP Obstructive sleep apnea (adult) (pediatric) Tobacco use disorder Dual implantable cardioverter-defibrillator in situ Automatic implantable cardiac defibrillator in situ Need for vaccination Need for prophylactic vaccination and inoculation against unspecified single disease Nocturia Hypokalemia Hypopotassemia Essential hypertension Unspecified essential hypertension Mixed hyperlipidemia DM (diabetes mellitus), type 2 with neurological complications (HCC) Type II or unspecified type diabetes mellitus with neurological manifestations, not stated as uncontrolled CKD (chronic kidney disease) stage 3, GFR 30-59 ml/min (HCC) Chronic kidney disease, Stage III (moderate) Morbid obesity, unspecified obesity type (HCC) Prostate cancer screening- Primary Special screening for malignant neoplasm of prostate Controlled type 2 diabetes mellitus without complication, unspecified retirement insulin use status Essential hypertension Unspecified essential hypertension Mixed hyperlipidemia Paroxysmal atrial fibrillation (HCC) Atrial fibrillation Foot pain, right Pain in limb Acute right ankle pain documented in this encounter 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) [place] on CPAP Obstructive sleep apnea (adult) (pediatric) Tobacco use disorder Dual implantable cardioverter-defibrillator in situ Automatic implantable cardiac defibrillator in situ Need for vaccination Need for prophylactic vaccination and inoculation against unspecified single disease Nocturia Hypokalemia Hypopotassemia Essential hypertension Unspecified essential hypertension Mixed hyperlipidemia DM (diabetes mellitus), type 2 with neurological complications (HCC) Type II or unspecified type diabetes mellitus with neurological manifestations, not stated as uncontrolled CKD (chronic kidney disease) stage 3, GFR 30-59 ml/min (HCC) Chronic kidney disease, Stage III (moderate) Morbid obesity, unspecified obesity type (HCC) Prostate cancer screening- Primary Special screening for malignant neoplasm of prostate Controlled type 2 diabetes mellitus without complication, unspecified retirement insulin use status Essential hypertension Unspecified essential hypertension Mixed hyperlipidemia Paroxysmal atrial fibrillation (HCC) Atrial fibrillation Traumatic ecchymosis of lower leg, right, initial encounter- Primary Foot pain, right Pain in limb Acute right ankle pain Foot pain, right Pain in limb Acute right ankle pain documented in this encounter 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) BSOTON on CPAP Obstructive sleep apnea (adult) (pediatric) Tobacco use disorder Dual implantable cardioverter-defibrillator in situ Automatic implantable cardiac defibrillator in situ Need for vaccination Need for prophylactic vaccination and inoculation against unspecified single disease Nocturia Hypokalemia Hypopotassemia Essential hypertension Unspecified essential hypertension Mixed hyperlipidemia DM (diabetes mellitus), type 2 with neurological complications (HCC) Type II or unspecified type diabetes mellitus with neurological manifestations, not stated as uncontrolled CKD (chronic kidney disease) stage 3, GFR 30-59 ml/min (HCC) Chronic kidney disease, Stage III (moderate) Morbid obesity, unspecified obesity type (HCC) Prostate cancer screening- Primary Special screening for malignant neoplasm of prostate Controlled type 2 diabetes mellitus without complication, unspecified rodent exterminator insulin use status Essential hypertension Unspecified essential hypertension Mixed hyperlipidemia Paroxysmal atrial fibrillation (HCC) Atrial fibrillation Pacemaker Cardiac pacemaker in situ documented in this encounter 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) BOSTON on CPAP Obstructive sleep apnea (adult) (pediatric) Tobacco use disorder Dual implantable cardioverter-defibrillator in situ Automatic implantable cardiac defibrillator in situ Need for vaccination Need for prophylactic vaccination and inoculation against unspecified single disease Nocturia Hypokalemia Hypopotassemia Essential hypertension Unspecified essential hypertension Mixed hyperlipidemia DM (diabetes mellitus), type 2 with neurological complications (HCC) Type II or unspecified type diabetes mellitus with neurological manifestations, not stated as uncontrolled CKD (chronic kidney disease) stage 3, GFR 30-59 ml/min (HCC) Chronic kidney disease, Stage III (moderate) Morbid obesity, unspecified obesity type (HCC) Prostate cancer screening- Primary Special screening for malignant neoplasm of prostate Controlled type 2 diabetes mellitus without complication, unspecified retirement insulin use status Essential hypertension Unspecified essential hypertension Mixed hyperlipidemia Paroxysmal atrial fibrillation (HCC) Atrial fibrillation Paroxysmal ventricular tachycardia (HCC)- Primary Paroxysmal ventricular tachycardia Atrial fibrillation, persistent (HCC) Atrial fibrillation Benign essential HTN Essential hypertension, benign Acute on chronic combined systolic and diastolic congestive heart failure (HCC) Acute on chronic combined systolic and diastolic heart failure Class 2 severe obesity due to excess calories with serious comorbidity and body mass index (BMI) of 39.0 to 39.9 in adult (HCC) Type 2 diabetes mellitus with diabetic mononeuropathy, with long-term current use of insulin (HCC) BOSTON on CPAP Obstructive sleep apnea (adult) (pediatric) Encounter for current long-term use of anticoagulants Long-term (current) use of anticoagulants ICD (implantable cardioverter-defibrillator) in place Automatic implantable cardiac defibrillator in situ [facility] Diagnosis Controlled type 2 diabetes mellitus without complication, unspecified retirement insulin use status- Primary DM (diabetes mellitus), type 2 with neurological complications (HCC) Type II or unspecified type diabetes mellitus with neurological manifestations, not stated as uncontrolled Mixed hyperlipidemia 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) BOSTON on CPAP Obstructive sleep apnea (adult) (pediatric) Tobacco use disorder Dual implantable cardioverter-defibrillator in situ Automatic implantable cardiac defibrillator in situ Need for vaccination Need for prophylactic vaccination and inoculation against unspecified single disease Nocturia Hypokalemia Hypopotassemia Essential hypertension Unspecified essential hypertension Mixed hyperlipidemia DM (diabetes mellitus), type 2 with neurological complications (HCC) Type II or unspecified type diabetes mellitus with neurological manifestations, not stated as uncontrolled CKD (chronic kidney disease) stage 3, GFR 30-59 ml/min (HCC) Chronic kidney disease, Stage III (moderate) Morbid obesity, unspecified obesity type (HCC) Prostate cancer screening- Primary Special screening for malignant neoplasm of prostate Controlled type 2 diabetes mellitus without complication, unspecified retirement insulin use status Essential hypertension Unspecified essential hypertension Mixed hyperlipidemia Paroxysmal atrial fibrillation (HCC) Atrial fibrillation B12 deficiency- Primary Other B-complex deficiencies [facility] Diagnosis Controlled type 2 diabetes mellitus without complication, unspecified rodent exterminator insulin use status- Primary DM (diabetes mellitus), type 2 with neurological complications (HCC) Type II or unspecified type diabetes mellitus with neurological manifestations, not stated as uncontrolled Mixed hyperlipidemia 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) BOSTON on CPAP Obstructive sleep apnea (adult) (pediatric) Tobacco use disorder Dual implantable cardioverter-defibrillator in situ Automatic implantable cardiac defibrillator in situ Need for vaccination Need for prophylactic vaccination and inoculation against unspecified single disease Nocturia Hypokalemia Hypopotassemia Essential hypertension Unspecified essential hypertension Mixed hyperlipidemia DM (diabetes mellitus), type 2 with neurological complications (HCC) Type II or unspecified type diabetes mellitus with neurological manifestations, not stated as uncontrolled CKD (chronic kidney disease) stage 3, GFR 30-59 ml/min (HCC) Chronic kidney disease, Stage III (moderate) Morbid obesity, unspecified obesity type (HCC) Prostate cancer screening- Primary Special screening for malignant neoplasm of prostate Controlled type 2 diabetes mellitus without complication, unspecified rodent exterminator insulin use status Essential hypertension Unspecified essential hypertension Mixed hyperlipidemia Paroxysmal atrial fibrillation (HCC) Atrial fibrillation Nonischemic cardiomyopathy (HCC)- Primary Other primary cardiomyopathies [facility] Diagnosis Controlled type 2 diabetes mellitus without complication, unspecified rodent exterminator insulin use status- Primary DM (diabetes mellitus), type 2 with neurological complications (HCC) Type II or unspecified type diabetes mellitus with neurological manifestations, not stated as uncontrolled Mixed hyperlipidemia 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) BOSTON on CPAP Obstructive sleep apnea (adult) (pediatric) Tobacco use disorder Dual implantable cardioverter-defibrillator in situ Automatic implantable cardiac defibrillator in situ Need for vaccination Need for prophylactic vaccination and inoculation against unspecified single disease Nocturia Hypokalemia Hypopotassemia Essential hypertension Unspecified essential hypertension Mixed hyperlipidemia DM (diabetes mellitus), type 2 with neurological complications (HCC) Type II or unspecified type diabetes mellitus with neurological manifestations, not stated as uncontrolled CKD (chronic kidney disease) stage 3, GFR 30-59 ml/min (HCC) Chronic kidney disease, Stage III (moderate) Morbid obesity, unspecified obesity type (HCC) Prostate cancer screening- Primary Special screening for malignant neoplasm of prostate Controlled type 2 diabetes mellitus without complication, unspecified rodent exterminator insulin use status Essential hypertension Unspecified essential hypertension Mixed hyperlipidemia Paroxysmal atrial fibrillation (HCC) Atrial fibrillation Arthritis of right hip- Primary Type 2 diabetes mellitus with diabetic mononeuropathy, with long-term current use of insulin (HCC) Pain of right hip Vitamin D deficiency Unspecified vitamin D deficiency Anemia, unspecified type Paroxysmal atrial fibrillation (HCC) Atrial fibrillation Stage 3a chronic kidney disease (HCC) documented in this encounter 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) B[place]ON on CPAP Obstructive sleep apnea (adult) (pediatric) Tobacco use disorder Dual implantable cardioverter-defibrillator in situ Automatic implantable cardiac defibrillator in situ Need for vaccination Need for prophylactic vaccination and inoculation against unspecified single disease Nocturia Hypokalemia Hypopotassemia Essential hypertension Unspecified essential hypertension Mixed hyperlipidemia DM (diabetes mellitus), type 2 with neurological complications (HCC) Type II or unspecified type diabetes mellitus with neurological manifestations, not stated as uncontrolled CKD (chronic kidney disease) stage 3, GFR 30-59 ml/min (HCC) Chronic kidney disease, Stage III (moderate) Morbid obesity, unspecified obesity type (HCC) Prostate cancer screening- Primary Special screening for malignant neoplasm of prostate Controlled type 2 diabetes mellitus without complication, unspecified retirement insulin use status Essential hypertension Unspecified essential hypertension Mixed hyperlipidemia Paroxysmal atrial fibrillation (HCC) Atrial fibrillation Arthritis of right hip documented in this encounter 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) B[place] on CPAP Obstructive sleep apnea (adult) (pediatric) Tobacco use disorder Dual implantable cardioverter-defibrillator in situ Automatic implantable cardiac defibrillator in situ Need for vaccination Need for prophylactic vaccination and inoculation against unspecified single disease Nocturia Hypokalemia Hypopotassemia Essential hypertension Unspecified essential hypertension Mixed hyperlipidemia DM (diabetes mellitus), type 2 with neurological complications (HCC) Type II or unspecified type diabetes mellitus with neurological manifestations, not stated as uncontrolled CKD (chronic kidney disease) stage 3, GFR 30-59 ml/min (HCC) Chronic kidney disease, Stage III (moderate) Morbid obesity, unspecified obesity type (HCC) Prostate cancer screening- Primary Special screening for malignant neoplasm of prostate Controlled type 2 diabetes mellitus without complication, unspecified rodent exterminator insulin use status Essential hypertension Unspecified essential hypertension Mixed hyperlipidemia Paroxysmal atrial fibrillation (HCC) Atrial fibrillation B12 deficiency- Primary Other B-complex deficiencies documented in this encounter 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) B[place] on CPAP Obstructive sleep apnea (adult) (pediatric) Tobacco use disorder Dual implantable cardioverter-defibrillator in situ Automatic implantable cardiac defibrillator in situ Need for vaccination Need for prophylactic vaccination and inoculation against unspecified single disease Nocturia Hypokalemia Hypopotassemia Essential hypertension Unspecified essential hypertension Mixed hyperlipidemia DM (diabetes mellitus), type 2 with neurological complications (HCC) Type II or unspecified type diabetes mellitus with neurological manifestations, not stated as uncontrolled CKD (chronic kidney disease) stage 3, GFR 30-59 ml/min (HCC) Chronic kidney disease, Stage III (moderate) Morbid obesity, unspecified obesity type (HCC) Prostate cancer screening- Primary Special screening for malignant neoplasm of prostate Controlled type 2 diabetes mellitus without complication, unspecified rodent exterminator insulin use status Essential hypertension Unspecified essential hypertension Mixed hyperlipidemia Paroxysmal atrial fibrillation (HCC) Atrial fibrillation B12 deficiency- Primary Other B-complex deficiencies Iron deficiency anemia, unspecified iron deficiency anemia type Anemia, unspecified type documented in this encounter 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) B[place] on CPAP Obstructive sleep apnea (adult) (pediatric) Tobacco use disorder Dual implantable cardioverter-defibrillator in situ Automatic implantable cardiac defibrillator in situ Need for vaccination Need for prophylactic vaccination and inoculation against unspecified single disease Nocturia Hypokalemia Hypopotassemia Essential hypertension Unspecified essential hypertension Mixed hyperlipidemia DM (diabetes mellitus), type 2 with neurological complications (HCC) Type II or unspecified type diabetes mellitus with neurological manifestations, not stated as uncontrolled CKD (chronic kidney disease) stage 3, GFR 30-59 ml/min (HCC) Chronic kidney disease, Stage III (moderate) Morbid obesity, unspecified obesity type (HCC) Prostate cancer screening- Primary Special screening for malignant neoplasm of prostate Controlled type 2 diabetes mellitus without complication, unspecified retirement insulin use status Essential hypertension Unspecified essential hypertension Mixed hyperlipidemia Paroxysmal atrial fibrillation (HCC) Atrial fibrillation B12 deficiency- Primary Other B-complex deficiencies [facility] Diagnosis Controlled type 2 diabetes mellitus without complication, unspecified retirement insulin use status- Primary DM (diabetes mellitus), type 2 with neurological complications (HCC) Type II or unspecified type diabetes mellitus with neurological manifestations, not stated as uncontrolled Mixed hyperlipidemia 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) B[place] on CPAP Obstructive sleep apnea (adult) (pediatric) Tobacco use disorder Dual implantable cardioverter-defibrillator in situ Automatic implantable cardiac defibrillator in situ Need for vaccination Need for prophylactic vaccination and inoculation against unspecified single disease Nocturia Hypokalemia Hypopotassemia Essential hypertension Unspecified essential hypertension Mixed hyperlipidemia DM (diabetes mellitus), type 2 with neurological complications (HCC) Type II or unspecified type diabetes mellitus with neurological manifestations, not stated as uncontrolled CKD (chronic kidney disease) stage 3, GFR 30-59 ml/min (HCC) Chronic kidney disease, Stage III (moderate) Morbid obesity, unspecified obesity type (HCC) Prostate cancer screening- Primary Special screening for malignant neoplasm of prostate Controlled type 2 diabetes mellitus without complication, unspecified rodent exterminator insulin use status Essential hypertension Unspecified essential hypertension Mixed hyperlipidemia Paroxysmal atrial fibrillation (HCC) Atrial fibrillation Essential hypertension- Primary Unspecified essential hypertension Paroxysmal atrial fibrillation (HCC) Atrial fibrillation Arthritis of right hip Morbid obesity (HCC) Morbid obesity Weight gain Abnormal weight gain Iron deficiency Iron deficiency anemia, unspecified Acquired hypothyroidism Unspecified hypothyroidism [facility] Diagnosis Controlled type 2 diabetes mellitus without complication, unspecified retirement insulin use status- Primary DM (diabetes mellitus), type 2 with neurological complications (HCC) Type II or unspecified type diabetes mellitus with neurological manifestations, not stated as uncontrolled Mixed hyperlipidemia 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) B[place] on CPAP Obstructive sleep apnea (adult) (pediatric) Tobacco use disorder Dual implantable cardioverter-defibrillator in situ Automatic implantable cardiac defibrillator in situ Need for vaccination Need for prophylactic vaccination and inoculation against unspecified single disease Nocturia Hypokalemia Hypopotassemia Essential hypertension Unspecified essential hypertension Mixed hyperlipidemia DM (diabetes mellitus), type 2 with neurological complications (HCC) Type II or unspecified type diabetes mellitus with neurological manifestations, not stated as uncontrolled CKD (chronic kidney disease) stage 3, GFR 30-59 ml/min (HCC) Chronic kidney disease, Stage III (moderate) Morbid obesity, unspecified obesity type (HCC) Prostate cancer screening- Primary Special screening for malignant neoplasm of prostate Controlled type 2 diabetes mellitus without complication, unspecified retirement insulin use status Essential hypertension Unspecified essential hypertension Mixed hyperlipidemia Paroxysmal atrial fibrillation (HCC) Atrial fibrillation Essential hypertension- Primary Unspecified essential hypertension Pure hypercholesterolemia Weight gain Abnormal weight gain [facility] Diagnosis Controlled type 2 diabetes mellitus without complication, unspecified retirement insulin use status- Primary DM (diabetes mellitus), type 2 with neurological complications (HCC) Type II or unspecified type diabetes mellitus with neurological manifestations, not stated as uncontrolled Mixed hyperlipidemia 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) [place] on CPAP Obstructive sleep apnea (adult) (pediatric) Tobacco use disorder Dual implantable cardioverter-defibrillator in situ Automatic implantable cardiac defibrillator in situ Need for vaccination Need for prophylactic vaccination and inoculation against unspecified single disease Nocturia Hypokalemia Hypopotassemia Essential hypertension Unspecified essential hypertension Mixed hyperlipidemia DM (diabetes mellitus), type 2 with neurological complications (HCC) Type II or unspecified type diabetes mellitus with neurological manifestations, not stated as uncontrolled CKD (chronic kidney disease) stage 3, GFR 30-59 ml/min (HCC) Chronic kidney disease, Stage III (moderate) Morbid obesity, unspecified obesity type (HCC) Prostate cancer screening- Primary Special screening for malignant neoplasm of prostate Controlled type 2 diabetes mellitus without complication, unspecified retirement insulin use status Essential hypertension Unspecified essential hypertension Mixed hyperlipidemia Paroxysmal atrial fibrillation (HCC) Atrial fibrillation Essential hypertension Unspecified essential hypertension Dilated cardiomyopathy (HCC) Other primary cardiomyopathies Typical atrial flutter (HCC) Atrial flutter Presence of cardiac pacemaker Cardiac pacemaker in situ documented in this encounter [facility] Discharge instructionsAdditional Instructions 1. Sutures out 14 days 2. Keep wounds clean and dry 3. Take antibiotics until gone 4. If there is concern for infection [facility] Reason for referral (narrative)* Outpatient Procedure (Routine) - Pending Review Specialty Diagnoses / Procedures Referred By Contmeghan t Referred To [facility] Diagnoses Paroxysmal [place] (HCC) Procedures ECHO ECHO TTHRC R-T 2D W/WOM-MODE COMPL SPEC&COLR D Christoph Chavis MD [address] [place] [address] [id number] [place] [address] Referral ID Status Reason Start Date Expiration Date Visits Requested Visits Authorized [id number] Pending Review Auto-Generat ed Referral 01/27/2022 01/27/2023 1 1 [facility] for referral (narrative)* Diagnostic Procedure Only (Routine) - Closed Specialty Diagnoses / Procedures Referred By Contac t Referred To Contact US IMAGING Diagnoses 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) Procedures US ABD RT UPPER QUADRANT US ABDOMINAL REAL TIME W/IMAGE LIMITED Hamilton Bryan MD [address] [place] [address] Us Imaging Referral ID Status Reason Start Date Expiration Date V isits Requested Visits Authorized [id number] Closed Auto-Generate d Referral 11/24/2021 12/24/2022 1 1 T [facility] for referral (narrative)* Diagnostic Procedure Only (Routine) - Pending Review Specialty Diagnoses / Procedures Referred By Contac t Referred To Contact XR IMAGING Diagnoses Ganglion cyst Left wrist pain Primary osteoarthritis of left wrist Procedures XR WRIST GENERAL 3V PA/LAT/OBL LEFT RADEX WRIST COMPLETE MINIMUM 3 VIEWS Alireza Dickinson MD [address] [place] [address] Xr Imaging Referral ID Status Reason Start Date Expiration Date Visits Requested Visits Authorized [id number] Pending Review Auto-Generat ed Referral 2 09/30/2023 1 1 [facility] for referral (narrative)* Outpatient Procedure (Routine) - Authorized Specialty Diagnoses / Procedures Referred By Contac t Referred To Contact [facility] [place] Diagnoses Atrial fibrillation, persistent (HCC) Dual implantable cardioverter-defibrilla tor in situ Procedures ECG COMPLETE ECG ROUTINE ECG W/LEAST 12 LDS W/I&R Christoph Chavis MD [address] [place] [address] [address] Referral ID Status Reason Start Date Expiration Date Visits Requested Visits Authorized [id number] Authorized Auto-Generat ed Referral 3 07/03/2024 1 1 [facility] for referral (narrative)* Outpatient Procedure (Routine) - Pending Review Specialty Diagnoses / Procedures Referred By Contac t Referred To Contact [facility] [place] Diagnoses Paroxysmal ventricular tachycardia (HCC) Procedures ECG COMPLETE ECG ROUTINE ECG W/LEAST 12 LDS W/I&R Christoph Chavis MD [address] [place] [address] [address] Referral ID Status Reason Start Date Expiration Date Visits Requested Visits Authorized [id number] Pending Review Auto-Generat ed Referral 09/23/2023 09/22/2024 1 1 * Transition of Care (Routine) - Ref Not Required Specialty Diagnoses / Procedures Referred By Contac t Referred To Contact Procedures CARDIOVASCULAR MEDICINE OP FOLLOW UP APPT ORDER Christoph Chavis MD [address] [place] [address] Referral ID Status Reason Start Date Expiration Date Visits Requested Visits Authorized [id number] Ref Not Required PCP Requested Referral 09/23/2024 12/22/2024 1 1 [facility] for referral (narrative)* Outpatient Procedure (Routine) - Pending Review Specialty Diagnoses / Procedures Referred By Contac t Referred To Contact [facility] Diagnoses Anemia, unspecified type Procedures EGD DIAGNOSTIC ESOPHAGOGASTRODUODENOSC OPY TRANSORAL DIAGNOSTIC Jennifer Shepherd PA-C [address] [place] [address] [address] Referral ID Status Reason Start Date Expiration Date Visits Requested Visits Authorized [id number] Pending Review Auto-Generat ed Referral 11/06/2023 11/06/2024 1 1 * Outpatient Procedure (Routine) - Pending Review Specialty Diagnoses / Procedures Referred By Contac t Referred To Contact [facility] [place] Diagnoses Anemia, unspecified type History of colonic polyps Procedures COLONOSCOPY DIAGNOSTIC COLONOSCOPY FLX DX W/COLLJ SPEC WHEN PFRMD Jennifer Shepherd PA-C [address] [place] [address] [place] [id number] Referral ID Status Reason Start Date Expiration Date Visits Requested Visits Authorized [id number] Pending Review Auto-Generat ed Referral 11/06/2023 11/06/2024 1 1 * Diagnostic Procedure Only (Routine) - Authorized Specialty Diagnoses / Procedures Referred By Contac t Referred To Contact US IMAGING Diagnoses Abnormal finding on imaging of liver Elevated alkaline phosphatase level Procedures US ABD RIGHT UPPER QUADRANT US ABDOMINAL REAL TIME W/IMAGE LIMITED Jennifer Shepherd PA-C [address] [place] [address] Us Imaging [facility] Referral ID Status Reason Start Date Expiration Date Visits Requested Visits Authorized [id number] Authorized Auto-Generat ed Referral 11/06/2023 12/05/2024 1 [facility] Outpatient Procedure (Routine) - Closed Specialty Diagnoses / Procedures Referred By Contac t Referred To Contact [facility] Diagnoses Anemia, unspecified type Procedures EGD DIAGNOSTIC ESOPHAGOGASTRODUODENOSC OPY TRANSORAL DIAGNOSTIC Jennifer Shepherd PA-C [address] [place] [address] Rocky Ortega MD [address] [facility] [place] [address] Referral ID Status Reason Start Date Expiration Date V isits Requested Visits Authorized [id number] Closed Auto-Generate d Referral 02/05/2024 04/05/2024 1 1 * Outpatient Procedure (Routine) - Closed Specialty Diagnoses / Procedures Referred By Alberto lugo Referred To Contact [facility] Diagnoses Anemia, unspecified type History of colonic polyps Procedures COLONOSCOPY DIAGNOSTIC COLONOSCOPY FLX DX W/COLLJ SPEC WHEN PFRMD Jennifer Shepherd PA-C [address] [place] [address] Rocky Ortega MD [address] [place] [address] Referral ID Status Reason Start Date Expiration Date V isits Requested Visits Authorized [id number] Closed Auto-Generate d Referral 02/05/2024 09/09/2024 1 1 [facility] for referral (narrative)* Outpatient Procedure (Routine) - Authorized Specialty Diagnoses / Procedures Referred By Contmeghan t Referred To [facility] Diagnoses Pacemaker Procedures ECG COMPLETE ECG ROUTINE ECG W/LEAST 12 LDS W/I&R Christoph Chavis MD [address] [place] [address] [place] [address] [facility] [place] [phone] Referral ID Status Reason Start Date Expiration Date Visits Requested Visits Authorized [id number] Authorized Auto-Generat ed Referral 08/18/2024 08/18/2025 1 1 * Outpatient Procedure (Routine) - Authorized Specialty Diagnoses / Procedures Referred By Alberto lugo Referred To [facility] Diagnoses Pacemaker Procedures CARDIAC IMPLANTABLE DEVICE CHECK PRGRMG DEV EVAL 1 LEAD PM/LDLS PM 1 CAR CHMBR IP PROGRAM EVAL IMPLANTABLE IN PERSN DUAL LD PACER PROGRAM EVAL IMPLANTABLE IN PRSN MULTI LD PACER AMY-PX DEV EVAL PM/LDLS PM PHYS/QHP IN PERSON INTERROG DEV EVAL PM/LDLS PM PHYS/QHP IN PERSON REM INTERROG PM/LDLS PM <90 D PHYS/QHP INTERROG DEV EVAL PM/LDLS PM PHYS/QHP IN PERSON PRGRMG DEV EVAL 1 LEAD PM/LDLS PM 1 CAR CHMBR IP PROGRAM EVAL IMPLANTABLE IN PERSN DUAL LD PACER PROGRAM EVAL IMPLANTABLE IN PRSN MULTI LD PACER Christoph Chavis MD [address] [place] [address] [place] [address] [facility] [address] [place] [address] Referral ID Status Reason Start Date Expiration Date Visits Requested Visits Authorized [id number] Authorized Auto-Generat ed Referral 08/18/2024 08/18/2025 1 1 [facility] for referral (narrative)No reason for referral [facility]: Reason for visit Narrative* Diagnostic Procedure Only (Routine) - Closed Specialty Diagnoses / Procedures Referred By Alberto lugo Referred To Contact [facility] IMAGING Diagnoses 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) Procedures US ABD RT UPPER QUADRANT US ABDOMINAL REAL TIME W/IMAGE LIMITED Hamilton Bryan MD [address] [place] [address] Us Imaging Referral ID Status Reason Start Date Expiration Date V isits Requested Visits Authorized [id number] Closed Auto-Generate d Referral 11/24/2021 12/24/2022 1 1 [facility] for visit Narrative* Outpatient Procedure (Routine) - Closed Specialty Diagnoses / Procedures Referred By Alberto lugo Referred To Contact [facility] Diagnoses Anemia, unspecified type Procedures EGD DIAGNOSTIC ESOPHAGOGASTRODUODENOSC OPY TRANSORAL DIAGNOSTIC Jennifer Shepherd PA-C [address] [place] [address] Rocky Ortega MD [address] [place] [address] Referral ID Status Reason Start Date Expiration Date V isits Requested Visits Authorized [id number] Closed Auto-Generate d Referral 02/05/2024 04/05/2024 1 1 [facility] for visit Narrative* [place] Prior Authorization (Routine) - Authorized Specialty Diagnoses / Procedures Referred By Contac t Referred To Contact Diagnoses B12 deficiency Iron deficiency anemia secondary to inadequate dietary iron intake Iron malabsorption Stage 3a chronic kidney disease (HCC) Procedures IRON SUCROSE INJECTION PER 1 MG Nabila Gleaosn [address] [place] [address] Phone: tel: fax: Hematology/Oncology [address] [place] [address] Phone: tel: fax: Referral ID Status Reason Start Date Expiration Date V isits Requested Visits Authorized [id number] Authorized 10/16/2024 09/09/2025 99 99 [facility] for visit Narrative* Diagnostic Procedure Only (Routine) - Closed Specialty Diagnoses / Procedures Referred By Contac t Referred To Contact XR IMAGING Diagnoses Fall, initial encounter Procedures XR RIBS 2V AP/OBL RIGHT RADEX RIBS UNILATERAL 2 VIEWS Dee Ashley MD [address] [place] [address] Phone: tel: fax: [place] [address] Referral ID Status Reason Start Date Expiration Date V isits Requested Visits Authorized [id number] Closed Auto-Generate d Referral 01/19/2025 02/18/2026 1 1 [facility] for visit Narrative* Diagnostic Procedure Only (Urgent) - Closed Specialty Diagnoses / Procedures Referred By Contac t Referred To Contact XR IMAGING Diagnoses Acute right ankle pain Procedures XR ANKLE GENERAL 3V AP/LAT/OBL RIGHT RADEX ANKLE COMPLETE MINIMUM 3 VIEWS Nicky Pierson MD [address] [place] [address] Phone: tel: fax: [place] [address] Referral ID Status Reason Start Date Expiration Date V isits Requested Visits Authorized [id number] Closed Auto-Generate d Referral 02/13/2025 03/15/2026 1 1 [facility] for visit Narrative* Outpatient Procedure (Routine) - Closed Specialty Diagnoses / Procedures Referred By Contac t Referred To [facility] Diagnoses Pacemaker Procedures CARDIAC IMPLANTABLE DEVICE CHECK PRGRMG DEV EVAL 1 LEAD PM/LDLS PM 1 CAR CHMBR IP PROGRAM EVAL IMPLANTABLE IN PERSN DUAL LD PACER PROGRAM EVAL IMPLANTABLE IN PRSN MULTI LD PACER AMY-PX DEV EVAL PM/LDLS PM PHYS/QHP IN PERSON INTERROG DEV EVAL PM/LDLS PM PHYS/QHP IN PERSON REM INTERROG PM/LDLS PM <90 D PHYS/QHP INTERROG DEV EVAL PM/LDLS PM PHYS/QHP IN PERSON PRGRMG DEV EVAL 1 LEAD PM/LDLS PM 1 CAR CHMBR IP PROGRAM EVAL IMPLANTABLE IN PERSN DUAL LD PACER PROGRAM EVAL IMPLANTABLE IN PRSN MULTI LD PACER Christoph Chavis MD [address] [place] [address] Phone: tel: fax: [facility] [address] [place] [address] Referral ID Status Reason Start Date Expiration Date V isits Requested Visits Authorized [id number] Closed Auto-Generate d Referral 08/18/2024 08/18/2025 1 1 [facility] for visit Narrative* Diagnostic Procedure Only (Routine) - Closed Specialty Diagnoses / Procedures Referred By Contac t Referred To Contact XR IMAGING Diagnoses Arthritis of right hip Procedures XR HIP GENERAL 3V PELV/AP/LAT RIGHT RADEX HIP UNILATERAL WITH PELVIS 2-3 VIEWS Dee Ashley MD [address] [place] [address] Phone: tel: fax: [place] [address] Referral ID Status Reason Start Date Expiration Date V isits Requested Visits Authorized [id number] Closed Auto-Generate d Referral 03/25/2025 04/24/2026 1 1 [facility] Summary Purpose Family History No Family History Records FoundNo Family History Records FoundNo Family History Records FoundNo Family History Records FoundNo Family History Records FoundNo Family History Records FoundNo Family History Records Found Advance Directives No Advanced Directives Records FoundDocuments on File Type Date Recorded 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 No May 26, 2025 6:10pm Advance Directives No June 15, 2015 6:12am Reason for Referral Specialty Diagnoses / Procedures Referred By Contac t Referred To Contact [facility] Diagnoses Ganglion cyst Procedures CONSULT TO SPORTS MEDICINE OFFICE/OUTPATIENT [facility] 60-74 MINUTES Dee Ashley MD [address] [place] [address] Referral ID Status Reason Start Date Expiration Date Visits Requested Visits Authorized [id number] Authorized PCP Requested Referral 2 08/22/2023 1 1 Specialty Diagnoses / Procedures Referred By Contac t Referred To Contact CT IMAGING Diagnoses Episode of change in speech Balance problem Procedures CT BRAIN WO/W IVCON CT HEAD/BRAIN W/O & W/CONTRAST MATERIAL Natalia Vela PA-C [address] [place] [address] [place] [address] Referral ID Status Reason Start Date Expiration Date V isits Requested Visits Authorized [id number] Closed Auto-Generate d Referral 08/08/2024 10/07/2024 1 1 Referral ID Status Reason Start Date Expiration Date Visits Requested Visits Authorized [id number] Authorized Auto-Generat ed Referral 08/28/2025 1 1 Chief Complaint and Reason for Visit Chief Complaint LAB AND PELVIS XRAY Chief Complaint LAB AND PELVIS XRAY HX OF SMOKING Chief Complaint Admit Date bite/laceration May 26, 2025 6:04pm Additional Source Comments (unrecognized sect ion and content) No Status Records FoundNo Status Records FoundNo Status Records FoundNo Status Records FoundNo Status Records FoundNo Status Records FoundNo Status Records Found INFORMATION SOURCE (unrecogn ized section and content) DATE CREATED AUTHOR 03/01/2018 [facility] DATE CREATED AUTHOR AUTHOR'S ORGANIZ ATION 03/05/2018 [facility] DATE CREATED AUTHOR AUTHOR'S ORGANIZ ATION 03/05/2018 [facility] DATE CREATED AUTHOR AUTHOR'S ORGANIZ ATION 08/18/2018 [facility] DATE CREATED AUTHOR AUTHOR'S ORGANIZ ATION 06/01/2025 [facility] DATE CREATED AUTHOR AUTHOR'S ORGANIZ ATION 06/29/2025 [facility] DATE CREATED AUTHOR AUTHOR'S ORGANIZ ATION 07/21/2025 [facility] Source Comments (unrecognize d section and content) In the event this informatio n is protected by the Federal Confidentiality of Alcohol and Drug Abuse Patient Records regulations: The Federal rules restrict any use of the information to criminally investigate or prosecute any alcohol or drug abuse patient.[facility] the event this information is protected by the Federal Confidentiality of Alcohol and Drug Abuse Patient Records regulations: The Federal rules restrict any use of the information to criminally investigate or prosecute any alcohol or drug abuse patient.[facility] the event this information is protected by the Federal Confidentiality of Alcohol and Drug Abuse Patient Records regulations: The Federal rules restrict any use of the information to criminally investigate or prosecute any alcohol or drug abuse patient.[facility] the event this information is protected by the Federal Confidentiality of Alcohol and Drug Abuse Patient Records regulations: The Federal rules restrict any use of the information to criminally investigate or prosecute any alcohol or drug abuse patient.[facility] HospitalIn the event this information is protected by the Federal Confidentiality of Alcohol and Drug Abuse Patient Records regulations: The Federal rules restrict any use of the information to criminally investigate or prosecute any alcohol or drug abuse patient.[facility] Hospital[facility] the event this information is protected by the Federal Confidentiality of Alcohol and Drug Abuse Patient Records regulations: The Federal rules restrict any use of the information to criminally investigate or prosecute any alcohol or drug abuse patient.[facility] HospitalIn the event this information is protected by the Federal Confidentiality of Alcohol and Drug Abuse Patient Records regulations: The Federal rules restrict any use of the information to criminally investigate or prosecute any alcohol or drug abuse patient.[facility] Hospital[facility] the event this information is protected by the Federal Confidentiality of Alcohol and Drug Abuse Patient Records regulations: The Federal rules restrict any use of the information to criminally investigate or prosecute any alcohol or drug abuse patient.[facility] HospitalIn the event this information is protected by the Federal Confidentiality of Alcohol and Drug Abuse Patient Records regulations: The Federal rules restrict any use of the information to criminally investigate or prosecute any alcohol or drug abuse patient.[facility] Hospital[facility] the event this information is protected by the Federal Confidentiality of Alcohol and Drug Abuse Patient Records regulations: The Federal rules restrict any use of the information to criminally investigate or prosecute any alcohol or drug abuse patient.[facility] Hospital[facility] the event this information is protected by the Federal Confidentiality of Alcohol and Drug Abuse Patient Records regulations: The Federal rules restrict any use of the information to criminally investigate or prosecute any alcohol or drug abuse patient.[facility] Hospital[facility] the event this information is protected by the Federal Confidentiality of Alcohol and Drug Abuse Patient Records regulations: The Federal rules restrict any use of the information to criminally investigate or prosecute any alcohol or drug abuse patient.[facility] Hospital[facility] the event this information is protected by the Federal Confidentiality of Alcohol and Drug Abuse Patient Records regulations: The Federal rules restrict any use of the information to criminally investigate or prosecute any alcohol or drug abuse patient.[facility] HospitalIn the event this information is protected by the Federal Confidentiality of Alcohol and Drug Abuse Patient Records regulations: The Federal rules restrict any use of the information to criminally investigate or prosecute any alcohol or drug abuse patient.[facility] Hospital[facility] the event this information is protected by the Federal Confidentiality of Alcohol and Drug Abuse Patient Records regulations: The Federal rules restrict any use of the information to criminally investigate or prosecute any alcohol or drug abuse patient.[facility] HospitalIn the event this information is protected by the Federal Confidentiality of Alcohol and Drug Abuse Patient Records regulations: The Federal rules restrict any use of the information to criminally investigate or prosecute any alcohol or drug abuse patient.[facility] HospitalIn the event this information is protected by the Federal Confidentiality of Alcohol and Drug Abuse Patient Records regulations: The Federal rules restrict any use of the information to criminally investigate or prosecute any alcohol or drug abuse patient.[facility] HospitalIn the event this information is protected by the Federal Confidentiality of Alcohol and Drug Abuse Patient Records regulations: The Federal rules restrict any use of the information to criminally investigate or prosecute any alcohol or drug abuse patient.[facility] HospitalIn the event this information is protected by the Federal Confidentiality of Alcohol and Drug Abuse Patient Records regulations: The Federal rules restrict any use of the information to criminally investigate or prosecute any alcohol or drug abuse patient.[facility] HospitalIn the event this information is protected by the Federal Confidentiality of Alcohol and Drug Abuse Patient Records regulations: The Federal rules restrict any use of the information to criminally investigate or prosecute any alcohol or drug abuse patient.[facility] HospitalIn the event this information is protected by the Federal Confidentiality of Alcohol and Drug Abuse Patient Records regulations: The Federal rules restrict any use of the information to criminally investigate or prosecute any alcohol or drug abuse patient.[facility] HospitalIn the event this information is protected by the Federal Confidentiality of Alcohol and Drug Abuse Patient Records regulations: The Federal rules restrict any use of the information to criminally investigate or prosecute any alcohol or drug abuse patient.[facility] HospitalIn the event this information is protected by the Federal Confidentiality of Alcohol and Drug Abuse Patient Records regulations: The Federal rules restrict any use of the information to criminally investigate or prosecute any alcohol or drug abuse patient.[facility] HospitalIn the event this information is protected by the Federal Confidentiality of Alcohol and Drug Abuse Patient Records regulations: The Federal rules restrict any use of the information to criminally investigate or prosecute any alcohol or drug abuse patient.[facility] HospitalIn the event this information is protected by the Federal Confidentiality of Alcohol and Drug Abuse Patient Records regulations: The Federal rules restrict any use of the information to criminally investigate or prosecute any alcohol or drug abuse patient.[facility] HospitalIn the event this information is protected by the Federal Confidentiality of Alcohol and Drug Abuse Patient Records regulations: The Federal rules restrict any use of the information to criminally investigate or prosecute any alcohol or drug abuse patient.[facility] HospitalIn the event this information is protected by the Federal Confidentiality of Alcohol and Drug Abuse Patient Records regulations: The Federal rules restrict any use of the information to criminally investigate or prosecute any alcohol or drug abuse patient.[facility] HospitalIn the event this information is protected by the Federal Confidentiality of Alcohol and Drug Abuse Patient Records regulations: The Federal rules restrict any use of the information to criminally investigate or prosecute any alcohol or drug abuse patient.[facility] HospitalIn the event this information is protected by the Federal Confidentiality of Alcohol and Drug Abuse Patient Records regulations: The Federal rules restrict any use of the information to criminally investigate or prosecute any alcohol or drug abuse patient.[facility] HospitalIn the event this information is protected by the Federal Confidentiality of Alcohol and Drug Abuse Patient Records regulations: The Federal rules restrict any use of the information to criminally investigate or prosecute any alcohol or drug abuse patient.[facility] HospitalIn the event this information is protected by the Federal Confidentiality of Alcohol and Drug Abuse Patient Records regulations: The Federal rules restrict any use of the information to criminally investigate or prosecute any alcohol or drug abuse patient.[facility] HospitalIn the event this information is protected by the Federal Confidentiality of Alcohol and Drug Abuse Patient Records regulations: The Federal rules restrict any use of the information to criminally investigate or prosecute any alcohol or drug abuse patient.[facility] HospitalIn the event this information is protected by the Federal Confidentiality of Alcohol and Drug Abuse Patient Records regulations: The Federal rules restrict any use of the information to criminally investigate or prosecute any alcohol or drug abuse patient.[facility] HospitalIn the event this information is protected by the Federal Confidentiality of Alcohol and Drug Abuse Patient Records regulations: The Federal rules restrict any use of the information to criminally investigate or prosecute any alcohol or drug abuse patient.[facility] HospitalIn the event this information is protected by the Federal Confidentiality of Alcohol and Drug Abuse Patient Records regulations: The Federal rules restrict any use of the information to criminally investigate or prosecute any alcohol or drug abuse patient.[facility] HospitalIn the event this information is protected by the Federal Confidentiality of Alcohol and Drug Abuse Patient Records regulations: The Federal rules restrict any use of the information to criminally investigate or prosecute any alcohol or drug abuse patient.[facility] HospitalIn the event this information is protected by the Federal Confidentiality of Alcohol and Drug Abuse Patient Records regulations: The Federal rules restrict any use of the information to criminally investigate or prosecute any alcohol or drug abuse patient.[facility] HospitalIn the event this information is protected by the Federal Confidentiality of Alcohol and Drug Abuse Patient Records regulations: The Federal rules restrict any use of the information to criminally investigate or prosecute any alcohol or drug abuse patient.[facility] HospitalIn the event this information is protected by the Federal Confidentiality of Alcohol and Drug Abuse Patient Records regulations: The Federal rules restrict any use of the information to criminally investigate or prosecute any alcohol or drug abuse patient.[facility] HospitalIn the event this information is protected by the Federal Confidentiality of Alcohol and Drug Abuse Patient Records regulations: The Federal rules restrict any use of the information to criminally investigate or prosecute any alcohol or drug abuse patient.[facility] HospitalIn the event this information is protected by the Federal Confidentiality of Alcohol and Drug Abuse Patient Records regulations: The Federal rules restrict any use of the information to criminally investigate or prosecute any alcohol or drug abuse patient.[facility]In the event this information is protected by the Federal Confidentiality of Alcohol and Drug Abuse Patient Records regulations: The Federal rules restrict any use of the information to criminally investigate or prosecute any alcohol or drug abuse patient.[facility]In the event this information is protected by the Federal Confidentiality of Alcohol and Drug Abuse Patient Records regulations: The Federal rules restrict any use of the information to criminally investigate or prosecute any alcohol or drug abuse patient.[facility]In the event this information is protected by the Federal Confidentiality of Alcohol and Drug Abuse Patient Records regulations: The Federal rules restrict any use of the information to criminally investigate or prosecute any alcohol or drug abuse patient.[facility]In the event this information is protected by the Federal Confidentiality of Alcohol and Drug Abuse Patient Records regulations: The Federal rules restrict any use of the information to criminally investigate or prosecute any alcohol or drug abuse patient.[facility] HospitalIn the event this information is protected by the Federal Confidentiality of Alcohol and Drug Abuse Patient Records regulations: The Federal rules restrict any use of the information to criminally investigate or prosecute any alcohol or drug abuse patient.[facility] HospitalIn the event this information is protected by the Federal Confidentiality of Alcohol and Drug Abuse Patient Records regulations: The Federal rules restrict any use of the information to criminally investigate or prosecute any alcohol or drug abuse patient.[facility] HospitalIn the event this information is protected by the Federal Confidentiality of Alcohol and Drug Abuse Patient Records regulations: The Federal rules restrict any use of the information to criminally investigate or prosecute any alcohol or drug abuse patient.[facility] HospitalIn the event this information is protected by the Federal Confidentiality of Alcohol and Drug Abuse Patient Records regulations: The Federal rules restrict any use of the information to criminally investigate or prosecute any alcohol or drug abuse patient.[facility] HospitalIn the event this information is protected by the Federal Confidentiality of Alcohol and Drug Abuse Patient Records regulations: The Federal rules restrict any use of the information to criminally investigate or prosecute any alcohol or drug abuse patient.[facility] HospitalIn the event this information is protected by the Federal Confidentiality of Alcohol and Drug Abuse Patient Records regulations: The Federal rules restrict any use of the information to criminally investigate or prosecute any alcohol or drug abuse patient.[facility] HospitalIn the event this information is protected by the Federal Confidentiality of Alcohol and Drug Abuse Patient Records regulations: The Federal rules restrict any use of the information to criminally investigate or prosecute any alcohol or drug abuse patient.[facility] HospitalIn the event this information is protected by the Federal Confidentiality of Alcohol and Drug Abuse Patient Records regulations: The Federal rules restrict any use of the information to criminally investigate or prosecute any alcohol or drug abuse patient.[facility] HospitalIn the event this information is protected by the Federal Confidentiality of Alcohol and Drug Abuse Patient Records regulations: The Federal rules restrict any use of the information to criminally investigate or prosecute any alcohol or drug abuse patient.[facility] HospitalIn the event this information is protected by the Federal Confidentiality of Alcohol and Drug Abuse Patient Records regulations: The Federal rules restrict any use of the information to criminally investigate or prosecute any alcohol or drug abuse patient.[facility] HospitalIn the event this information is protected by the Federal Confidentiality of Alcohol and Drug Abuse Patient Records regulations: The Federal rules restrict any use of the information to criminally investigate or prosecute any alcohol or drug abuse patient.[facility] HospitalIn the event this information is protected by the Federal Confidentiality of Alcohol and Drug Abuse Patient Records regulations: The Federal rules restrict any use of the information to criminally investigate or prosecute any alcohol or drug abuse patient.[facility] HospitalIn the event this information is protected by the Federal Confidentiality of Alcohol and Drug Abuse Patient Records regulations: The Federal rules restrict any use of the information to criminally investigate or prosecute any alcohol or drug abuse patient.[facility] HospitalIn the event this information is protected by the Federal Confidentiality of Alcohol and Drug Abuse Patient Records regulations: The Federal rules restrict any use of the information to criminally investigate or prosecute any alcohol or drug abuse patient.[facility] HospitalIn the event this information is protected by the Federal Confidentiality of Alcohol and Drug Abuse Patient Records regulations: The Federal rules restrict any use of the information to criminally investigate or prosecute any alcohol or drug abuse patient.[facility] HospitalIn the event this information is protected by the Federal Confidentiality of Alcohol and Drug Abuse Patient Records regulations: The Federal rules restrict any use of the information to criminally investigate or prosecute any alcohol or drug abuse patient.[facility] HospitalIn the event this information is protected by the Federal Confidentiality of Alcohol and Drug Abuse Patient Records regulations: The Federal rules restrict any use of the information to criminally investigate or prosecute any alcohol or drug abuse patient.[facility] HospitalIn the event this information is protected by the Federal Confidentiality of Alcohol and Drug Abuse Patient Records regulations: The Federal rules restrict any use of the information to criminally investigate or prosecute any alcohol or drug abuse patient.[facility] HospitalIn the event this information is protected by the Federal Confidentiality of Alcohol and Drug Abuse Patient Records regulations: The Federal rules restrict any use of the information to criminally investigate or prosecute any alcohol or drug abuse patient.[facility] HospitalIn the event this information is protected by the Federal Confidentiality of Alcohol and Drug Abuse Patient Records regulations: The Federal rules restrict any use of the information to criminally investigate or prosecute any alcohol or drug abuse patient.[facility] HospitalIn the event this information is protected by the Federal Confidentiality of Alcohol and Drug Abuse Patient Records regulations: The Federal rules restrict any use of the information to criminally investigate or prosecute any alcohol or drug abuse patient.[facility] HospitalIn the event this information is protected by the Federal Confidentiality of Alcohol and Drug Abuse Patient Records regulations: The Federal rules restrict any use of the information to criminally investigate or prosecute any alcohol or drug abuse patient.[facility] HospitalIn the event this information is protected by the Federal Confidentiality of Alcohol and Drug Abuse Patient Records regulations: The Federal rules restrict any use of the information to criminally investigate or prosecute any alcohol or drug abuse patient.[facility] HospitalIn the event this information is protected by the Federal Confidentiality of Alcohol and Drug Abuse Patient Records regulations: The Federal rules restrict any use of the information to criminally investigate or prosecute any alcohol or drug abuse patient.[facility] HospitalIn the event this information is protected by the Federal Confidentiality of Alcohol and Drug Abuse Patient Records regulations: The Federal rules restrict any use of the information to criminally investigate or prosecute any alcohol or drug abuse patient.[facility] HospitalIn the event this information is protected by the Federal Confidentiality of Alcohol and Drug Abuse Patient Records regulations: The Federal rules restrict any use of the information to criminally investigate or prosecute any alcohol or drug abuse patient.[facility] HospitalIn the event this information is protected by the Federal Confidentiality of Alcohol and Drug Abuse Patient Records regulations: The Federal rules restrict any use of the information to criminally investigate or prosecute any alcohol or drug abuse patient.[facility] HospitalIn the event this information is protected by the Federal Confidentiality of Alcohol and Drug Abuse Patient Records regulations: The Federal rules restrict any use of the information to criminally investigate or prosecute any alcohol or drug abuse patient.[facility] HospitalIn the event this information is protected by the Federal Confidentiality of Alcohol and Drug Abuse Patient Records regulations: The Federal rules restrict any use of the information to criminally investigate or prosecute any alcohol or drug abuse patient.[facility] HospitalIn the event this information is protected by the Federal Confidentiality of Alcohol and Drug Abuse Patient Records regulations: The Federal rules restrict any use of the information to criminally investigate or prosecute any alcohol or drug abuse patient.[facility] HospitalIn the event this information is protected by the Federal Confidentiality of Alcohol and Drug Abuse Patient Records regulations: The Federal rules restrict any use of the information to criminally investigate or prosecute any alcohol or drug abuse patient.[facility] HospitalIn the event this information is protected by the Federal Confidentiality of Alcohol and Drug Abuse Patient Records regulations: The Federal rules restrict any use of the information to criminally investigate or prosecute any alcohol or drug abuse patient.[facility] HospitalIn the event this information is protected by the Federal Confidentiality of Alcohol and Drug Abuse Patient Records regulations: The Federal rules restrict any use of the information to criminally investigate or prosecute any alcohol or drug abuse patient.[facility] HospitalIn the event this information is protected by the Federal Confidentiality of Alcohol and Drug Abuse Patient Records regulations: The Federal rules restrict any use of the information to criminally investigate or prosecute any alcohol or drug abuse patient.[facility] HospitalIn the event this information is protected by the Federal Confidentiality of Alcohol and Drug Abuse Patient Records regulations: The Federal rules restrict any use of the information to criminally investigate or prosecute any alcohol or drug abuse patient.[facility] HospitalIn the event this information is protected by the Federal Confidentiality of Alcohol and Drug Abuse Patient Records regulations: The Federal rules restrict any use of the information to criminally investigate or prosecute any alcohol or drug abuse patient.[facility] HospitalIn the event this information is protected by the Federal Confidentiality of Alcohol and Drug Abuse Patient Records regulations: The Federal rules restrict any use of the information to criminally investigate or prosecute any alcohol or drug abuse patient.[facility] HospitalIn the event this information is protected by the Federal Confidentiality of Alcohol and Drug Abuse Patient Records regulations: The Federal rules restrict any use of the information to criminally investigate or prosecute any alcohol or drug abuse patient.[facility] HospitalIn the event this information is protected by the Federal Confidentiality of Alcohol and Drug Abuse Patient Records regulations: The Federal rules restrict any use of the information to criminally investigate or prosecute any alcohol or drug abuse patient.[facility] HospitalIn the event this information is protected by the Federal Confidentiality of Alcohol and Drug Abuse Patient Records regulations: The Federal rules restrict any use of the information to criminally investigate or prosecute any alcohol or drug abuse patient.[facility] HospitalIn the event this information is protected by the Federal Confidentiality of Alcohol and Drug Abuse Patient Records regulations: The Federal rules restrict any use of the information to criminally investigate or prosecute any alcohol or drug abuse patient.[facility] HospitalIn the event this information is protected by the Federal Confidentiality of Alcohol and Drug Abuse Patient Records regulations: The Federal rules restrict any use of the information to criminally investigate or prosecute any alcohol or drug abuse patient.[facility] HospitalIn the event this information is protected by the Federal Confidentiality of Alcohol and Drug Abuse Patient Records regulations: The Federal rules restrict any use of the information to criminally investigate or prosecute any alcohol or drug abuse patient.[facility] HospitalIn the event this information is protected by the Federal Confidentiality of Alcohol and Drug Abuse Patient Records regulations: The Federal rules restrict any use of the information to criminally investigate or prosecute any alcohol or drug abuse patient.[facility] HospitalIn the event this information is protected by the Federal Confidentiality of Alcohol and Drug Abuse Patient Records regulations: The Federal rules restrict any use of the information to criminally investigate or prosecute any alcohol or drug abuse patient.[facility] HospitalIn the event this information is protected by the Federal Confidentiality of Alcohol and Drug Abuse Patient Records regulations: The Federal rules restrict any use of the information to criminally investigate or prosecute any alcohol or drug abuse patient.[facility] HospitalIn the event this information is protected by the Federal Confidentiality of Alcohol and Drug Abuse Patient Records regulations: The Federal rules restrict any use of the information to criminally investigate or prosecute any alcohol or drug abuse patient.[facility] HospitalIn the event this information is protected by the Federal Confidentiality of Alcohol and Drug Abuse Patient Records regulations: The Federal rules restrict any use of the information to criminally investigate or prosecute any alcohol or drug abuse patient.[facility] HospitalIn the event this information is protected by the Federal Confidentiality of Alcohol and Drug Abuse Patient Records regulations: The Federal rules restrict any use of the information to criminally investigate or prosecute any alcohol or drug abuse patient.[facility] HospitalIn the event this information is protected by the Federal Confidentiality of Alcohol and Drug Abuse Patient Records regulations: The Federal rules restrict any use of the information to criminally investigate or prosecute any alcohol or drug abuse patient.[facility] HospitalIn the event this information is protected by the Federal Confidentiality of Alcohol and Drug Abuse Patient Records regulations: The Federal rules restrict any use of the information to criminally investigate or prosecute any alcohol or drug abuse patient.[facility] HospitalIn the event this information is protected by the Federal Confidentiality of Alcohol and Drug Abuse Patient Records regulations: The Federal rules restrict any use of the information to criminally investigate or prosecute any alcohol or drug abuse patient.[facility] HospitalIn the event this information is protected by the Federal Confidentiality of Alcohol and Drug Abuse Patient Records regulations: The Federal rules restrict any use of the information to criminally investigate or prosecute any alcohol or drug abuse patient.[facility] HospitalIn the event this information is protected by the Federal Confidentiality of Alcohol and Drug Abuse Patient Records regulations: The Federal rules restrict any use of the information to criminally investigate or prosecute any alcohol or drug abuse patient.[facility] HospitalIn the event this information is protected by the Federal Confidentiality of Alcohol and Drug Abuse Patient Records regulations: The Federal rules restrict any use of the information to criminally investigate or prosecute any alcohol or drug abuse patient.[facility] HospitalIn the event this information is protected by the Federal Confidentiality of Alcohol and Drug Abuse Patient Records regulations: The Federal rules restrict any use of the information to criminally investigate or prosecute any alcohol or drug abuse patient.[facility] HospitalIn the event this information is protected by the Federal Confidentiality of Alcohol and Drug Abuse Patient Records regulations: The Federal rules restrict any use of the information to criminally investigate or prosecute any alcohol or drug abuse patient.[facility] HospitalIn the event this information is protected by the Federal Confidentiality of Alcohol and Drug Abuse Patient Records regulations: The Federal rules restrict any use of the information to criminally investigate or prosecute any alcohol or drug abuse patient.[facility] HospitalIn the event this information is protected by the Federal Confidentiality of Alcohol and Drug Abuse Patient Records regulations: The Federal rules restrict any use of the information to criminally investigate or prosecute any alcohol or drug abuse patient.[facility] HospitalIn the event this information is protected by the Federal Confidentiality of Alcohol and Drug Abuse Patient Records regulations: The Federal rules restrict any use of the information to criminally investigate or prosecute any alcohol or drug abuse patient.[facility] HospitalIn the event this information is protected by the Federal Confidentiality of Alcohol and Drug Abuse Patient Records regulations: The Federal rules restrict any use of the information to criminally investigate or prosecute any alcohol or drug abuse patient.[facility] HospitalIn the event this information is protected by the Federal Confidentiality of Alcohol and Drug Abuse Patient Records regulations: The Federal rules restrict any use of the information to criminally investigate or prosecute any alcohol or drug abuse patient.[facility] HospitalIn the event this information is protected by the Federal Confidentiality of Alcohol and Drug Abuse Patient Records regulations: The Federal rules restrict any use of the information to criminally investigate or prosecute any alcohol or drug abuse patient.[facility] HospitalIn the event this information is protected by the Federal Confidentiality of Alcohol and Drug Abuse Patient Records regulations: The Federal rules restrict any use of the information to criminally investigate or prosecute any alcohol or drug abuse patient.[facility] HospitalIn the event this information is protected by the Federal Confidentiality of Alcohol and Drug Abuse Patient Records regulations: The Federal rules restrict any use of the information to criminally investigate or prosecute any alcohol or drug abuse patient.[facility] HospitalIn the event this information is protected by the Federal Confidentiality of Alcohol and Drug Abuse Patient Records regulations: The Federal rules restrict any use of the information to criminally investigate or prosecute any alcohol or drug abuse patient.[facility] HospitalIn the event this information is protected by the Federal Confidentiality of Alcohol and Drug Abuse Patient Records regulations: The Federal rules restrict any use of the information to criminally investigate or prosecute any alcohol or drug abuse patient.[facility] HospitalIn the event this information is protected by the Federal Confidentiality of Alcohol and Drug Abuse Patient Records regulations: The Federal rules restrict any use of the information to criminally investigate or prosecute any alcohol or drug abuse patient.[facility] HospitalIn the event this information is protected by the Federal Confidentiality of Alcohol and Drug Abuse Patient Records regulations: The Federal rules restrict any use of the information to criminally investigate or prosecute any alcohol or drug abuse patient.[facility] HospitalIn the event this information is protected by the Federal Confidentiality of Alcohol and Drug Abuse Patient Records regulations: The Federal rules restrict any use of the information to criminally investigate or prosecute any alcohol or drug abuse patient.[facility] HospitalIn the event this information is protected by the Federal Confidentiality of Alcohol and Drug Abuse Patient Records regulations: The Federal rules restrict any use of the information to criminally investigate or prosecute any alcohol or drug abuse patient.[facility] HospitalIn the event this information is protected by the Federal Confidentiality of Alcohol and Drug Abuse Patient Records regulations: The Federal rules restrict any use of the information to criminally investigate or prosecute any alcohol or drug abuse patient.[facility] HospitalIn the event this information is protected by the Federal Confidentiality of Alcohol and Drug Abuse Patient Records regulations: The Federal rules restrict any use of the information to criminally investigate or prosecute any alcohol or drug abuse patient.[facility] HospitalIn the event this information is protected by the Federal Confidentiality of Alcohol and Drug Abuse Patient Records regulations: The Federal rules restrict any use of the information to criminally investigate or prosecute any alcohol or drug abuse patient.[facility] HospitalIn the event this information is protected by the Federal Confidentiality of Alcohol and Drug Abuse Patient Records regulations: The Federal rules restrict any use of the information to criminally investigate or prosecute any alcohol or drug abuse patient.[facility] HospitalIn the event this information is protected by the Federal Confidentiality of Alcohol and Drug Abuse Patient Records regulations: The Federal rules restrict any use of the information to criminally investigate or prosecute any alcohol or drug abuse patient.[facility] HospitalIn the event this information is protected by the Federal Confidentiality of Alcohol and Drug Abuse Patient Records regulations: The Federal rules restrict any use of the information to criminally investigate or prosecute any alcohol or drug abuse patient.[facility] HospitalIn the event this information is protected by the Federal Confidentiality of Alcohol and Drug Abuse Patient Records regulations: The Federal rules restrict any use of the information to criminally investigate or prosecute any alcohol or drug abuse patient.[facility] HospitalIn the event this information is protected by the Federal Confidentiality of Alcohol and Drug Abuse Patient Records regulations: The Federal rules restrict any use of the information to criminally investigate or prosecute any alcohol or drug abuse patient.[facility] HospitalIn the event this information is protected by the Federal Confidentiality of Alcohol and Drug Abuse Patient Records regulations: The Federal rules restrict any use of the information to criminally investigate or prosecute any alcohol or drug abuse patient.[facility] HospitalIn the event this information is protected by the Federal Confidentiality of Alcohol and Drug Abuse Patient Records regulations: The Federal rules restrict any use of the information to criminally investigate or prosecute any alcohol or drug abuse patient.[facility] HospitalIn the event this information is protected by the Federal Confidentiality of Alcohol and Drug Abuse Patient Records regulations: The Federal rules restrict any use of the information to criminally investigate or prosecute any alcohol or drug abuse patient.[facility] HospitalIn the event this information is protected by the Federal Confidentiality of Alcohol and Drug Abuse Patient Records regulations: The Federal rules restrict any use of the information to criminally investigate or prosecute any alcohol or drug abuse patient.[facility] HospitalIn the event this information is protected by the Federal Confidentiality of Alcohol and Drug Abuse Patient Records regulations: The Federal rules restrict any use of the information to criminally investigate or prosecute any alcohol or drug abuse patient.[facility] HospitalIn the event this information is protected by the Federal Confidentiality of Alcohol and Drug Abuse Patient Records regulations: The Federal rules restrict any use of the information to criminally investigate or prosecute any alcohol or drug abuse patient.[facility] HospitalIn the event this information is protected by the Federal Confidentiality of Alcohol and Drug Abuse Patient Records regulations: The Federal rules restrict any use of the information to criminally investigate or prosecute any alcohol or drug abuse patient.[facility] HospitalIn the event this information is protected by the Federal Confidentiality of Alcohol and Drug Abuse Patient Records regulations: The Federal rules restrict any use of the information to criminally investigate or prosecute any alcohol or drug abuse patient.[facility] HospitalIn the event this information is protected by the Federal Confidentiality of Alcohol and Drug Abuse Patient Records regulations: The Federal rules restrict any use of the information to criminally investigate or prosecute any alcohol or drug abuse patient.[facility] HospitalIn the event this information is protected by the Federal Confidentiality of Alcohol and Drug Abuse Patient Records regulations: The Federal rules restrict any use of the information to criminally investigate or prosecute any alcohol or drug abuse patient.[facility] HospitalIn the event this information is protected by the Federal Confidentiality of Alcohol and Drug Abuse Patient Records regulations: The Federal rules restrict any use of the information to criminally investigate or prosecute any alcohol or drug abuse patient.[facility] HospitalIn the event this information is protected by the Federal Confidentiality of Alcohol and Drug Abuse Patient Records regulations: The Federal rules restrict any use of the information to criminally investigate or prosecute any alcohol or drug abuse patient.[facility] HospitalIn the event this information is protected by the Federal Confidentiality of Alcohol and Drug Abuse Patient Records regulations: The Federal rules restrict any use of the information to criminally investigate or prosecute any alcohol or drug abuse patient.[facility] HospitalIn the event this information is protected by the Federal Confidentiality of Alcohol and Drug Abuse Patient Records regulations: The Federal rules restrict any use of the information to criminally investigate or prosecute any alcohol or drug abuse patient.[facility] HospitalIn the event this information is protected by the Federal Confidentiality of Alcohol and Drug Abuse Patient Records regulations: The Federal rules restrict any use of the information to criminally investigate or prosecute any alcohol or drug abuse patient.[facility] HospitalIn the event this information is protected by the Federal Confidentiality of Alcohol and Drug Abuse Patient Records regulations: The Federal rules restrict any use of the information to criminally investigate or prosecute any alcohol or drug abuse patient.[facility] HospitalIn the event this information is protected by the Federal Confidentiality of Alcohol and Drug Abuse Patient Records regulations: The Federal rules restrict any use of the information to criminally investigate or prosecute any alcohol or drug abuse patient.[facility] HospitalIn the event this information is protected by the Federal Confidentiality of Alcohol and Drug Abuse Patient Records regulations: The Federal rules restrict any use of the information to criminally investigate or prosecute any alcohol or drug abuse patient.[facility] HospitalIn the event this information is protected by the Federal Confidentiality of Alcohol and Drug Abuse Patient Records regulations: The Federal rules restrict any use of the information to criminally investigate or prosecute any alcohol or drug abuse patient.[facility] HospitalIn the event this information is protected by the Federal Confidentiality of Alcohol and Drug Abuse Patient Records regulations: The Federal rules restrict any use of the information to criminally investigate or prosecute any alcohol or drug abuse patient.[facility] HospitalIn the event this information is protected by the Federal Confidentiality of Alcohol and Drug Abuse Patient Records regulations: The Federal rules restrict any use of the information to criminally investigate or prosecute any alcohol or drug abuse patient.[facility] HospitalIn the event this information is protected by the Federal Confidentiality of Alcohol and Drug Abuse Patient Records regulations: The Federal rules restrict any use of the information to criminally investigate or prosecute any alcohol or drug abuse patient.[facility] HospitalIn the event this information is protected by the Federal Confidentiality of Alcohol and Drug Abuse Patient Records regulations: The Federal rules restrict any use of the information to criminally investigate or prosecute any alcohol or drug abuse patient.[facility] HospitalIn the event this information is protected by the Federal Confidentiality of Alcohol and Drug Abuse Patient Records regulations: The Federal rules restrict any use of the information to criminally investigate or prosecute any alcohol or drug abuse patient.[facility] HospitalIn the event this information is protected by the Federal Confidentiality of Alcohol and Drug Abuse Patient Records regulations: The Federal rules restrict any use of the information to criminally investigate or prosecute any alcohol or drug abuse patient.[facility] HospitalIn the event this information is protected by the Federal Confidentiality of Alcohol and Drug Abuse Patient Records regulations: The Federal rules restrict any use of the information to criminally investigate or prosecute any alcohol or drug abuse patient.[facility] HospitalIn the event this information is protected by the Federal Confidentiality of Alcohol and Drug Abuse Patient Records regulations: The Federal rules restrict any use of the information to criminally investigate or prosecute any alcohol or drug abuse patient.[facility] HospitalIn the event this information is protected by the Federal Confidentiality of Alcohol and Drug Abuse Patient Records regulations: The Federal rules restrict any use of the information to criminally investigate or prosecute any alcohol or drug abuse patient.[facility] HospitalIn the event this information is protected by the Federal Confidentiality of Alcohol and Drug Abuse Patient Records regulations: The Federal rules restrict any use of the information to criminally investigate or prosecute any alcohol or drug abuse patient.[facility] HospitalIn the event this information is protected by the Federal Confidentiality of Alcohol and Drug Abuse Patient Records regulations: The Federal rules restrict any use of the information to criminally investigate or prosecute any alcohol or drug abuse patient.[facility] HospitalIn the event this information is protected by the Federal Confidentiality of Alcohol and Drug Abuse Patient Records regulations: The Federal rules restrict any use of the information to criminally investigate or prosecute any alcohol or drug abuse patient.[facility] HospitalIn the event this information is protected by the Federal Confidentiality of Alcohol and Drug Abuse Patient Records regulations: The Federal rules restrict any use of the information to criminally investigate or prosecute any alcohol or drug abuse patient.[facility] HospitalIn the event this information is protected by the Federal Confidentiality of Alcohol and Drug Abuse Patient Records regulations: The Federal rules restrict any use of the information to criminally investigate or prosecute any alcohol or drug abuse patient.[facility] HospitalIn the event this information is protected by the Federal Confidentiality of Alcohol and Drug Abuse Patient Records regulations: The Federal rules restrict any use of the information to criminally investigate or prosecute any alcohol or drug abuse patient.[facility] HospitalIn the event this information is protected by the Federal Confidentiality of Alcohol and Drug Abuse Patient Records regulations: The Federal rules restrict any use of the information to criminally investigate or prosecute any alcohol or drug abuse patient.[facility] HospitalIn the event this information is protected by the Federal Confidentiality of Alcohol and Drug Abuse Patient Records regulations: The Federal rules restrict any use of the information to criminally investigate or prosecute any alcohol or drug abuse patient.[facility] HospitalIn the event this information is protected by the Federal Confidentiality of Alcohol and Drug Abuse Patient Records regulations: The Federal rules restrict any use of the information to criminally investigate or prosecute any alcohol or drug abuse patient.[facility] HospitalIn the event this information is protected by the Federal Confidentiality of Alcohol and Drug Abuse Patient Records regulations: The Federal rules restrict any use of the information to criminally investigate or prosecute any alcohol or drug abuse patient.[facility] HospitalIn the event this information is protected by the Federal Confidentiality of Alcohol and Drug Abuse Patient Records regulations: The Federal rules restrict any use of the information to criminally investigate or prosecute any alcohol or drug abuse patient.[facility] HospitalIn the event this information is protected by the Federal Confidentiality of Alcohol and Drug Abuse Patient Records regulations: The Federal rules restrict any use of the information to criminally investigate or prosecute any alcohol or drug abuse patient.[facility] HospitalIn the event this information is protected by the Federal Confidentiality of Alcohol and Drug Abuse Patient Records regulations: The Federal rules restrict any use of the information to criminally investigate or prosecute any alcohol or drug abuse patient.[facility] HospitalIn the event this information is protected by the Federal Confidentiality of Alcohol and Drug Abuse Patient Records regulations: The Federal rules restrict any use of the information to criminally investigate or prosecute any alcohol or drug abuse patient.[facility] HospitalIn the event this information is protected by the Federal Confidentiality of Alcohol and Drug Abuse Patient Records regulations: The Federal rules restrict any use of the information to criminally investigate or prosecute any alcohol or drug abuse patient.[facility] HospitalIn the event this information is protected by the Federal Confidentiality of Alcohol and Drug Abuse Patient Records regulations: The Federal rules restrict any use of the information to criminally investigate or prosecute any alcohol or drug abuse patient.[facility] HospitalIn the event this information is protected by the Federal Confidentiality of Alcohol and Drug Abuse Patient Records regulations: The Federal rules restrict any use of the information to criminally investigate or prosecute any alcohol or drug abuse patient.[facility] HospitalIn the event this information is protected by the Federal Confidentiality of Alcohol and Drug Abuse Patient Records regulations: The Federal rules restrict any use of the information to criminally investigate or prosecute any alcohol or drug abuse patient.[facility] HospitalIn the event this information is protected by the Federal Confidentiality of Alcohol and Drug Abuse Patient Records regulations: The Federal rules restrict any use of the information to criminally investigate or prosecute any alcohol or drug abuse patient.[facility] HospitalIn the event this information is protected by the Federal Confidentiality of Alcohol and Drug Abuse Patient Records regulations: The Federal rules restrict any use of the information to criminally investigate or prosecute any alcohol or drug abuse patient.[facility] HospitalIn the event this information is protected by the Federal Confidentiality of Alcohol and Drug Abuse Patient Records regulations: The Federal rules restrict any use of the information to criminally investigate or prosecute any alcohol or drug abuse patient.[facility] HospitalIn the event this information is protected by the Federal Confidentiality of Alcohol and Drug Abuse Patient Records regulations: The Federal rules restrict any use of the information to criminally investigate or prosecute any alcohol or drug abuse patient.[facility] HospitalIn the event this information is protected by the Federal Confidentiality of Alcohol and Drug Abuse Patient Records regulations: The Federal rules restrict any use of the information to criminally investigate or prosecute any alcohol or drug abuse patient.[facility] HospitalIn the event this information is protected by the Federal Confidentiality of Alcohol and Drug Abuse Patient Records regulations: The Federal rules restrict any use of the information to criminally investigate or prosecute any alcohol or drug abuse patient.[facility] HospitalIn the event this information is protected by the Federal Confidentiality of Alcohol and Drug Abuse Patient Records regulations: The Federal rules restrict any use of the information to criminally investigate or prosecute any alcohol or drug abuse patient.[facility] HospitalIn the event this information is protected by the Federal Confidentiality of Alcohol and Drug Abuse Patient Records regulations: The Federal rules restrict any use of the information to criminally investigate or prosecute any alcohol or drug abuse patient.[facility] HospitalIn the event this information is protected by the Federal Confidentiality of Alcohol and Drug Abuse Patient Records regulations: The Federal rules restrict any use of the information to criminally investigate or prosecute any alcohol or drug abuse patient.[facility] HospitalIn the event this information is protected by the Federal Confidentiality of Alcohol and Drug Abuse Patient Records regulations: The Federal rules restrict any use of the information to criminally investigate or prosecute any alcohol or drug abuse patient.[facility] HospitalIn the event this information is protected by the Federal Confidentiality of Alcohol and Drug Abuse Patient Records regulations: The Federal rules restrict any use of the information to criminally investigate or prosecute any alcohol or drug abuse patient.[facility] HospitalIn the event this information is protected by the Federal Confidentiality of Alcohol and Drug Abuse Patient Records regulations: The Federal rules restrict any use of the information to criminally investigate or prosecute any alcohol or drug abuse patient.[facility] HospitalIn the event this information is protected by the Federal Confidentiality of Alcohol and Drug Abuse Patient Records regulations: The Federal rules restrict any use of the information to criminally investigate or prosecute any alcohol or drug abuse patient.[facility] HospitalIn the event this information is protected by the Federal Confidentiality of Alcohol and Drug Abuse Patient Records regulations: The Federal rules restrict any use of the information to criminally investigate or prosecute any alcohol or drug abuse patient.[facility] HospitalIn the event this information is protected by the Federal Confidentiality of Alcohol and Drug Abuse Patient Records regulations: The Federal rules restrict any use of the information to criminally investigate or prosecute any alcohol or drug abuse patient.[facility] HospitalIn the event this information is protected by the Federal Confidentiality of Alcohol and Drug Abuse Patient Records regulations: The Federal rules restrict any use of the information to criminally investigate or prosecute any alcohol or drug abuse patient.[facility] HospitalIn the event this information is protected by the Federal Confidentiality of Alcohol and Drug Abuse Patient Records regulations: The Federal rules restrict any use of the information to criminally investigate or prosecute any alcohol or drug abuse patient.[facility] HospitalIn the event this information is protected by the Federal Confidentiality of Alcohol and Drug Abuse Patient Records regulations: The Federal rules restrict any use of the information to criminally investigate or prosecute any alcohol or drug abuse patient.[facility] HospitalIn the event this information is protected by the Federal Confidentiality of Alcohol and Drug Abuse Patient Records regulations: The Federal rules restrict any use of the information to criminally investigate or prosecute any alcohol or drug abuse patient.[facility] HospitalIn the event this information is protected by the Federal Confidentiality of Alcohol and Drug Abuse Patient Records regulations: The Federal rules restrict any use of the information to criminally investigate or prosecute any alcohol or drug abuse patient.[facility] HospitalIn the event this information is protected by the Federal Confidentiality of Alcohol and Drug Abuse Patient Records regulations: The Federal rules restrict any use of the information to criminally investigate or prosecute any alcohol or drug abuse patient.[facility] HospitalIn the event this information is protected by the Federal Confidentiality of Alcohol and Drug Abuse Patient Records regulations: The Federal rules restrict any use of the information to criminally investigate or prosecute any alcohol or drug abuse patient.[facility] HospitalIn the event this information is protected by the Federal Confidentiality of Alcohol and Drug Abuse Patient Records regulations: The Federal rules restrict any use of the information to criminally investigate or prosecute any alcohol or drug abuse patient.[facility] HospitalIn the event this information is protected by the Federal Confidentiality of Alcohol and Drug Abuse Patient Records regulations: The Federal rules restrict any use of the information to criminally investigate or prosecute any alcohol or drug abuse patient.[facility] HospitalIn the event this information is protected by the Federal Confidentiality of Alcohol and Drug Abuse Patient Records regulations: The Federal rules restrict any use of the information to criminally investigate or prosecute any alcohol or drug abuse patient.[facility] HospitalIn the event this information is protected by the Federal Confidentiality of Alcohol and Drug Abuse Patient Records regulations: The Federal rules restrict any use of the information to criminally investigate or prosecute any alcohol or drug abuse patient.[facility] HospitalIn the event this information is protected by the Federal Confidentiality of Alcohol and Drug Abuse Patient Records regulations: The Federal rules restrict any use of the information to criminally investigate or prosecute any alcohol or drug abuse patient.[facility] Reason for Visit (unrecogniz ed section and content) Reason Comments Imm/Inj Specialty Diagnoses / Procedures Referred By Contac t Referred To Contact Hematology/Oncology / HEMATOLOGY/ONCOLOGY Diagnoses Anemia, unspecified QWK B12/ #1-4 Procedures ADMIN VITAMIN B12 INJ INJECTION Nabila Gleason [address] [place] [address] Wstr, Injection [facility] [address] [place] [address] Referral ID Status Reason Start Date Expiration Date V isits Requested Visits Authorized [id number] Authorized 01/17/2024 09/09/2024 99 99 Reason Onset Date Comments Refill Request 12/12/2021 Reason Comments Refill Request Reason Onset Date Comments Refill Request 01/26/2022 Reason Comments Cardiology Follow Up - Generic Reason Comments Additional Labs Reason Comments Results Anticoagulation Reason Comments Established Patient 3 month f ollow up Reason Comments Results Reason Onset Date Comments Refill Request 04/14/2022 Reason Onset Date Comments Refill Request 04/15/2022 Reason Comments Established Patient Follow-Up Reason Comments Established Patient Reason Onset Date Comments Refill Request 05/12/2022 Reason Comments Tier Over - Other Reason Comments Anticoagulation Reason Onset Date Comments Refill Request 07/12/2022 Reason Onset Date Comments Refill Request 08/01/2022 Reason Comments [facility] - INR testing Reason Comments F/U Diabetes 3 Month left wrist pain Reason Comments New Ganglion cyst Left wrist - R eferred by Dr Ashley Last seen 04/11/12 ganglion cyst left wris t Specialty Diagnoses / Procedures Referred By Alberto t Referred To Contact Sports Medicine Diagnoses Ganglion cyst Procedures CONSULT TO SPORTS MEDICINE OFFICE/OUTPATIENT NEW HIGH MDM 60-74 MINUTES Dee Ashley MD [address] [place] [address] Referral ID Status Reason Start Date Expiration Date V isits Requested Visits Authorized [id number] Closed PCP Requested Referral 08/22/2022 08/22/2023 1 1 Reason Comments Received Outside Medical Records Reason Comments F/U Diabetes 3 Month Reason Comments Anticoagulation INR 3.1 Reason Onset Date Comments Refill Request 12/08/2022 Reason Comments Patient Question Patient state he is returning a call from our office regarding his transmission. Please call him at [phone] Reason Comments F/U Diabetes 3 Month review labs, inr 1. 6 today, end of january bld pressure low and heart rate increased Reason Onset Date Comments Refill Request 02/22/2023 Reason Comments Anticoagulation INR 2.3 Reason Comments Anticoagulation INR today 2.1. (home INR) range is 2-3 Reason Comments Patient Update Reason Comments Future Appointment [facility] Reason Comments Patient Education EP: [facility] Reason Onset Date Comments Atrial Fibrillation Atrial Fibrillation 04/30/2023 Reason Onset Date Comments Refill Request 05/09/2023 Reason Onset Date Comments F/U 3 Month Immunizations 05/25/2023 Flu vaccination Reason Onset Date Comments Refill Request 07/08/2023 Reason Onset Date Comments Refill Request 08/10/2023 Reason Comments Cardiology Follow Up - Generic Reason Comments Anemia Labs 10/03/23 Specialty Diagnoses / Procedures Referred By Contac t Referred To Contact Gastroenterology Diagnoses Iron deficiency anemia, unspecified iron deficiency anemia type Anemia, unspecified type Procedures CONSULT TO GASTROENTEROLOGY OFFICE/OUTPATIENT [facility] 60 MINUTES Nabila Gleason [address] [place] [address] Referral ID Status Reason Start Date Expiration Date V isits Requested Visits Authorized [id number] Closed PCP Requested Referral 10/03/2023 10/02/2024 1 1 Reason Comments Recheck 6 week follow up Reason Comments Radiology US Specialty Diagnoses / Procedures Referred By Contac t Referred To Contact US IMAGING Diagnoses Abnormal finding on imaging of liver Elevated alkaline phosphatase level Procedures US ABD RIGHT UPPER QUADRANT US ABDOMINAL REAL TIME W/IMAGE LIMITED Jennifer Shepherd PA-C [address] [facility] [place] [address] [place] [address] Referral ID Status Reason Start Date Expiration Date V isits Requested Visits Authorized [id number] Closed Auto-Generate d Referral 11/06/2023 12/05/2024 1 1 Reason Comments Anticoagulation INR 3.1Target 2-3 Reason Comments Anticoagulation INR 2.8 today Reason Comments Forms Reason Comments Non-Chemotherapy Treatment Specialty Diagnoses / Procedures Referred By Contac t Referred To Contact Diagnoses Stage 3a chronic kidney disease (HCC) Iron deficiency anemia secondary to inadequate dietary iron intake Iron malabsorption B12 deficiency Procedures IRON SUCROSE INJECTION PER 1 MG Nabila Gleason [address] [place] [address] [facility] [address] [place] [address] Referral ID Status Reason Start Date Expiration Date V isits Requested Visits Authorized [id number] Authorized 01/02/2024 09/09/2024 99 99 Reason Comments Anticoagulation inr today 2.0 range is 2-3 Reason Comments Follow Up Reason Comments Anticoagulation INR today 1.8 Reason Onset Date Comments Refill Request 01/31/2024 Reason Onset Date Comments Refill Request 02/02/2024 Reason Comments Anticoagulation INR 1.5 Reason Onset Date Comments Refill Request 02/19/2024 Reason Comments left leg swelling Left leg swelling an d bruising x 3 weeks Reason Comments Anticoagulation INR 3.4 Reason Comments Recheck 3 month follow up Reason Comments Anticoagulation Reason Onset Date Comments Refill Request 04/14/2024 Reason Comments Coumadin/INR Anticoagulation INR 2.0 05/07/2024 Reason Onset Date Comments Refill Request 05/13/2024 Reason Onset Date Comments Refill Request 05/27/2024 Reason Onset Date Comments Refill Request 06/03/2024 Reason Onset Date Comments Recheck 3 month follow u p, review labs Immunizations 06/20/2024 Flu vaccination Reason Onset Date Comments ACM JAVAN RN 07/14/2024 ED utilizatio n review per request of payor Reason Onset Date Comments Population Health Navigation Outreach 07/14/2024 AWV INITIATIVE Reason Comments Anticoagulation INR 2.4 07/10/24 Reason Comments ER F/U Stomach, diarrhea, n ausea for 3 weeks, [facility] ER CT scan done Reason Comments Future Appointment Reason Comments Patient Question Reason Comments Radiology CT Specialty Diagnoses / Procedures Referred By Contac t Referred To Contact CT IMAGING Diagnoses Episode of change in speech Balance problem Procedures CT BRAIN WO/W IVCON CT HEAD/BRAIN W/O & W/CONTRAST MATERIAL Natalia Vela PA-C [address] [place] [address] [place] [address] Referral ID Status Reason Start Date Expiration Date V isits Requested Visits Authorized [id number] Closed Auto-Generate d Referral 08/08/2024 10/07/2024 1 1 Reason Onset Date Comments Anticoagulation 08/08/2024 Reason Comments Follow Up balance issues, weig ht loss and speech issues Specialty Diagnoses / Procedures Referred By Contac t Referred To Contact Hematology/Oncology / HEMATOLOGY/ONCOLOGY Diagnoses Anemia, unspecified QWK B12/ #1-4 Procedures ADMIN VITAMIN B12 INJ INJECTION LgeasonNabila rodriges [address] [place] [address] Wstr, Injection [facility] [address] [place] [address] Reason Comments FYI-No Action Needed Reason Comments Medication Problem Reason Onset Date Comments Allied Health Visit 10/24/2024 Medication A dherence Outreach Specialty Diagnoses / Procedures Referred By Alberto lugo Referred To Contact Diagnoses B12 deficiency Iron deficiency anemia secondary to inadequate dietary iron intake Iron malabsorption Stage 3a chronic kidney disease (HCC) Procedures IRON SUCROSE INJECTION PER 1 MG GleasonNabila rodriges [address] [place] [address] Phone: tel: fax: Hematology/Oncology [address] [place] [address] Phone: tel: fax: Referral ID Status Reason Start Date Expiration Date V isits Requested Visits Authorized [id number] Authorized 10/16/2024 09/09/2025 99 99 Reason Comments Orders Reason Onset Date Comments Allied Health Visit 11/27/2024 Medication A dherence Outreach Reason Onset Date Comments Population Health Navigation Outreach 11/28/2024 Romaine [place] Reason Comments Anticoagulation inr 3.0 09/24/24 Reason Onset Date Comments Allied Health Visit 12/02/2024 Statin use r eview Reason Comments Anticoagulation 11/19/24 INR 2.5 Reason Comments Medicare Wellness Exam Reason Comments Anticoagulation INR 1.5 12/24/24 Reason Comments Appointment Reason Onset Date Comments Allied Health Visit 01/16/2025 SUPD Reason Comments 4 week f/u -FALL 1 day ago inju ring right side of torso Reason Comments Coumadin/INR INR 1 01/07/25 Reason Onset Date Comments Refill Request 02/07/2025 Reason Comments Ankle Injury R ankle injury x6 da ys, bruising up entire lower leg, foot swelling and redness Reason Onset Date Comments Allied Health Visit 02/24/2025 Reason Comments Cardiology Follow Up - Generic Dyspnea Reason Comments Appointment EPS_ DCC Reason Comments Patient Education EPS - DCC Reason Onset Date Comments Results 01/22/2025 Reason Onset Date Comments Allied Health Visit 03/24/2025 SUPD/SPC Reason Comments 2 month f/u Reason Onset Date Comments Refill Request 04/28/2025 Reason Comments Follow Up Post Ortho appt. Reason Comments 1 week f/u Reason Comments Follow Up 1 year follow up Care Teams (unrecognized sec tion and content) [employer] Cashier Relationship Specialty Start Date End Date Dee Ashley MD [address] [facility] [place] [address] PCP - General Internal Medicine 04/17/16 No, Referral Referring Cardiology 09/16/18 Michael Paredes MD Primary Staff Physician Cardiology 11/26/18 Samia Moran, [facility] [address] [facility] [place] [address] Pharmacist Pharmacy 06/16/21 [employer] Cashier Relationship Specialty Start Date End Date Dee Ashley MD [address] [facility] [place] [address] PCP - General Internal Medicine 04/17/16 No, Referral Referring Cardiology 09/16/18 Michael Paredes MD Primary Staff Physician Cardiology 11/26/18 Samia Moran, [facility] [address] [facility] [place] [address] Pharmacist Pharmacy 06/16/21 [employer] Cashier Relationship Specialty Start Date End Date Dee Ashley MD [address] [facility] [place] [address] PCP - General Internal Medicine 04/17/16 No, Referral Referring Cardiology 09/16/18 [facility] [address] [facility] [place] [address] Pharmacist Pharmacy 06/16/21 Christoph Chavis MD [address] [place] [address] Primary Staff Physician Cardiology 01/27/22 [employer] Cashier Relationship Specialty Start Date End Date Dee Ashley MD [address] [place] [address] PCP - General Internal Medicine 04/17/16 No, Referral Referring Cardiology 09/16/18 Michael Paredes MD Primary Staff Physician Cardiology 11/26/18 Samia Moran, [facility] [address] [place] [address] Pharmacist Pharmacy 06/16/21 Christoph Chavis MD [address] [place] [address] Primary Staff Physician Cardiology 01/27/22 [employer] Cashier Relationship Specialty Start Date End Date Dee Ashley MD [address] [place] [address] PCP - General Internal Medicine 04/17/16 No, Referral Referring Cardiology 09/16/18 Samia Moran, [facility] [address] [place] [address] Pharmacist Pharmacy 06/16/21 Christoph Chavis MD [address] [place] [address] Primary Staff Physician Cardiology 01/27/22 [employer] Cashier Relationship Specialty Start Date End Date Dee Ashley MD [address] [place] [address] PCP - General Internal Medicine 04/17/16 No, Referral Referring Cardiology 09/16/18 Samia Moran, [facility] [address] [place] [address] Pharmacist Pharmacy 06/16/21 Christoph Chavis MD [address] [place], [place] [id number] Primary Staff Physician Cardiology 01/27/22 [employer] Cashier Relationship Specialty Start Date End Date Dee Ashley MD [address] [facility] [place] [address] PCP - General Internal Medicine 04/17/16 No, Referral Referring Cardiology 09/16/18 DeanSamia melendez, [facility] [address] [facility] [place] [address] Pharmacist Pharmacy 06/16/21 Christoph Chavis MD [address] [place] [address] Primary Staff Physician Cardiology 01/27/22 [employer] Cashier Relationship Specialty Start Date End Date Dee Ashley MD [address] [facility] [place] [address] PCP - General Internal Medicine 04/17/16 No, Referral Referring Cardiology 09/16/18 Samia Moran, [facility] [address] [facility] [place] [address] Pharmacist Pharmacy 06/16/21 Christoph Chavis MD [address] [place] [address] Primary Staff Physician Cardiology 01/27/22 [employer] Cashier Relationship Specialty Start Date End Date Dee Ashley MD [address] [facility] [place] [address] PCP - General Internal Medicine 04/17/16 No, Referral Referring Cardiology 09/16/18 Samia Moran, [facility] [address] [facility] [place] [address] Pharmacist Pharmacy 06/16/21 Christoph Chavis MD [address] [place] [address] Primary Staff Physician Cardiology 01/27/22 [employer] Cashier Relationship Specialty Start Date End Date Dee Ashley MD [address] [facility] [place] [address] PCP - General Internal Medicine 04/17/16 No, Referral Referring Cardiology 09/16/18 Samia Moran, [facility] [address] [facility] [place] [address] Pharmacist Pharmacy 06/16/21 Christoph Chavis MD [address] [place] [address] Primary Staff Physician Cardiology 01/27/22 [employer] Cashier Relationship Specialty Start Date End Date Dee Ashley MD [address] [facility] [place] [address] PCP - General Internal Medicine 04/17/16 No, Referral Referring Cardiology 09/16/18 Samia Moran, [facility] [address] [facility] [place] [address] Pharmacist Pharmacy 06/16/21 Christoph Chavis MD [address] [place] [address] Primary Staff Physician Cardiology 01/27/22 [employer] Cashier Relationship Specialty Start Date End Date Dee Ashley MD [address] [facility] [place] [address] PCP - General Internal Medicine 04/17/16 No, Referral Referring Cardiology 09/16/18 Samia Moran, [facility] [address] [facility] [place] [address] Pharmacist Pharmacy 06/16/21 Christoph Chavis MD [address] [place] [address] Primary Staff Physician Cardiology 01/27/22 [employer] Cashier Relationship Specialty Start Date End Date Dee Ashley MD [address] [place] [address] PCP - General Internal Medicine 04/17/16 No, Referral Referring Cardiology 09/16/18 Samia Moran, [facility] [address] [place] [address] Pharmacist Pharmacy 06/16/21 Christoph Chavis MD [address] [place] [address] Primary Staff Physician Cardiology 01/27/22 [employer] Cashier Relationship Specialty Start Date End Date Dee Ashley MD [facility] [place] [address] PCP - General Internal Medicine 04/17/16 No, Referral Referring Cardiology 09/16/18 WentworthSamia melendez, [facility] [address] [place] [address] Pharmacist Pharmacy 06/16/21 Christoph Chavis MD [address] [place] [address] Primary Staff Physician Cardiology 01/27/22 [employer] Cashier Relationship Specialty Start Date End Date Dee Ashley MD [address] [place] [address] PCP - General Internal Medicine 04/17/16 No, Referral Referring Cardiology 09/16/18 Samia Moran, [facility] [address] [place] [address] Pharmacist Pharmacy 06/16/21 Christoph Chavis MD [address] [place] [address] Primary Staff Physician Cardiology 01/27/22 [employer] Cashier Relationship Specialty Start Date End Date Dee Ashley MD [address] [facility] [place] [address] PCP - General Internal Medicine 04/17/16 No, Referral Referring Cardiology 09/16/18 WentworthJulieta melendezily, [facility] [address] [facility] [place] [address] Pharmacist Pharmacy 06/16/21 Christoph Chavis MD [address] [place] [address] Primary Staff Physician Cardiology 01/27/22 [employer] Cashier Relationship Specialty Start Date End Date Dee Ashley MD [address] [place] [address] PCP - General Internal Medicine 04/17/16 No, Referral Referring Cardiology 09/16/18 DeanJulieta melendezily, [facility] [address] [place] [address] Pharmacist Pharmacy 06/16/21 Christoph Chavis MD [address] [place] [address] Primary Staff Physician Cardiology 01/27/22 [employer] Cashier Relationship Specialty Start Date End Date Dee Ashley MD [address] [facility] [place] [address] PCP - General Internal Medicine 04/17/16 No, Referral Referring Cardiology 09/16/18 Wentworth, Samia, [facility] [address] [facility] [place] [address] Pharmacist Pharmacy 06/16/21 Christoph Chaivs MD [address] [place] [address] Primary Staff Physician Cardiology 01/27/22 [employer] Cashier Relationship Specialty Start Date End Date Dee Ashley MD [address] [facility] [place] [address] PCP - General Internal Medicine 04/17/16 No, Referral Referring Cardiology 09/16/18 Samia Moran, [facility] [address] [facility] [place] [address] Pharmacist Pharmacy 06/16/21 Christoph Chavis MD [address] [place] [address] Primary Staff Physician Cardiology 01/27/22 [employer] Cashier Relationship Specialty Start Date End Date Dee Ashley MD [address] [place] [address] PCP - General Internal Medicine 04/17/16 No, Referral Referring Cardiology 09/16/18 Samia Moran, [facility] [address] [place] [address] Pharmacist Pharmacy 06/16/21 Christoph Chavis MD [address] [place] [address] Primary Staff Physician Cardiology 01/27/22 Team Status: Active Member Role Status Dates Dr. Dee Ashley MD Family Provider Active Dr. Dee Ashley MD Primary Care Provider Active Team Status: Inactive Member Role Status Dates Dr. Dee Ashley MD Primary Care Provider Active Dr. Jayleen Kwok MD Attending Provider Active [employer] Cash[employer] Relationship Specialty Start Date End Date Dee Ashley MD [address] [facility] [place] [address] PCP - General Internal Medicine 04/17/16 No, Referral Referring Cardiology 09/16/18 Samia Moran, [facility] [address] [facility] [place] [address] Pharmacist Pharmacy 06/16/21 Christoph Chavis MD [address] [place] [address] Primary Staff Physician Cardiology 01/27/22 Team Status: Inactive Member Role Status Dates Dr. Dee Ashley MD Primary Care Provider Active Dr. Floyd Serrano MD Attending Provider, [facility] Provider Active [employer] Cashier Relationship Specialty Start Date End Date Dee Ashley MD [address] [place], [place] [address] PCP - General Internal Medicine 04/17/16 No, Referral Referring Cardiology 09/16/18 [facility] [address] [place] [address] Pharmacist Pharmacy 06/16/21 Christoph Chavis MD [address] [place] [address] Primary Staff Physician Cardiology 01/27/22 [employer] Cashier Relationship Specialty Start Date End Date Dee Ashley MD [address] [place] [address] PCP - General Internal Medicine 04/17/16 No, Referral Referring Cardiology 09/16/18 [facility] [address] [place] [address] Pharmacist Pharmacy 06/16/21 Christoph Chavis MD [address] [place], [place] [address] Primary Staff Physician Cardiology 01/27/22 [employer] Cashier Relationship Specialty Start Date End Date Dee Ashley MD [address] [place], [place] [address] PCP - General Internal Medicine 04/17/16 No, Referral Referring Cardiology 09/16/18 Samia Moran, [facility] [address] [place] [address] Pharmacist Pharmacy 06/16/21 Christoph Chavis MD [address] [place] [address] Primary Staff Physician Cardiology 01/27/22 [employer] Cashier Relationship Specialty Start Date End Date Dee Ashley MD [address] [place] [address] PCP - General Internal Medicine 04/17/16 No, Referral Referring Cardiology 09/16/18 DeanSamia, [facility] [address] [place] [address] Pharmacist Pharmacy 06/16/21 Christoph Chavis MD [address] [place] [address] Primary Staff Physician Cardiology 01/27/22 [employer] Cashier Relationship Specialty Start Date End Date Dee Ashley MD [address] [place] [address] PCP - General Internal Medicine 04/17/16 No, Referral Referring Cardiology 09/16/18 WentworthSamia, [facility] [address] [place] [address] Pharmacist Pharmacy 06/16/21 Christoph Chavis MD [address] [place] [address] Primary Staff Physician Cardiology 01/27/22 [employer] Cashier Relationship Specialty Start Date End Date Dee Ashley MD [address] [facility] [place] [address] PCP - General Internal Medicine 04/17/16 No, Referral Referring Cardiology 09/16/18 Dean, Samia, [facility] [address] [place] [address] Pharmacist Pharmacy 06/16/21 Christoph Chavis MD [address] [place] [address] Primary Staff Physician Cardiology 01/27/22 [employer] Cashier Relationship Specialty Start Date End Date Dee Ashley MD [address] [place] [address] PCP - General Internal Medicine 04/17/16 No, Referral Referring Cardiology 09/16/18 Julieta Moranily, [facility] [address] [place] [address] Pharmacist Pharmacy 06/16/21 Christoph Chavis MD [address] [place] [address] Primary Staff Physician Cardiology 01/27/22 [employer] Cashier Relationship Specialty Start Date End Date Dee Ashley MD [address] [place] [address] PCP - General Internal Medicine 04/17/16 No, Referral Referring Cardiology 09/16/18 Julieta Moranily, [facility] [address] [place] [address] Pharmacist Pharmacy 06/16/21 Christoph Chavis MD [address] [place] [address] Primary Staff Physician Cardiology 01/27/22 [employer] Cashier Relationship Specialty Start Date End Date Dee Ashley MD [address] [place], [place] [address] PCP - General Internal Medicine 04/17/16 No, Referral Referring Cardiology 09/16/18 Christoph Chavis MD [address] [place] [address] Primary Staff Physician Cardiology 01/27/22 [employer] Cashier Relationship Specialty Start Date End Date Dee Ashley MD [address] [place], [place] [address] PCP - General Internal Medicine 04/17/16 No, Referral Referring Cardiology 09/16/18 Christoph Chavis MD [address] [place] [address] Primary Staff Physician Cardiology 01/27/22 [employer] Cashier Relationship Specialty Start Date End Date Dee Ashley MD [address] [place] [address] PCP - General Internal Medicine 04/17/16 No, Referral Referring Cardiology 09/16/18 Christoph Chavis MD [address] [place] [address] Primary Staff Physician Cardiology 01/27/22 [employer] Cashier Relationship Specialty Start Date End Date Dee Ashley MD [address] [place] [address] PCP - General Internal Medicine 04/17/16 No, Referral Referring Cardiology 09/16/18 Christoph Chavis MD [address] [place] [address] Primary Staff Physician Cardiology 01/27/22 [employer] Cashier Relationship Specialty Start Date End Date Dee Ashley MD [address] [place] [address] PCP - General Internal Medicine 04/17/16 No, Referral Referring Cardiology 09/16/18 Christoph Chavis MD [address] [place] [address] Primary Staff Physician Cardiology 01/27/22 Team Status: Inactive Member Role Status Dates Dr. eDe Ashley MD Primary Care Provider Active Dr. Jayleen Kwok MD Attending Provider, Referring Provider Active [employer] Cash[employer] Relationship Specialty Start Date End Date Dee Ashley MD [address] [place] [address] PCP - General Internal Medicine 04/17/16 No, Referral Referring Cardiology 09/16/18 Christoph Chavis MD [address] [facility] [address] Primary Staff Physician Cardiology 01/27/22 [employer] Cashier Relationship Specialty Start Date End Date Dee Ashley MD [address] [place] [address] PCP - General Internal Medicine 04/17/16 No, Referral Referring Cardiology 09/16/18 Christoph Chavis MD [address] [place] [address] Primary Staff Physician Cardiology 01/27/22 [employer] Cashier Relationship Specialty Start Date End Date Dee Ashley MD [address] [place], [place] [address]69[address] PCP - General Internal Medicine 04/17/16 No, Referral Referring Cardiology 09/16/18 Christoph Chavis MD [address] [facility] [address] Primary Staff Physician Cardiology 01/27/22 [employer] Cashier Relationship Specialty Start Date End Date Dee Ashley MD [address] [place] [address] PCP - General Internal Medicine 04/17/16 No, Referral Referring Cardiology 09/16/18 Christoph Chavis MD [address] [place] [address] Primary Staff Physician Cardiology 01/27/22 [employer] Cashier Relationship Specialty Start Date End Date Dee Ashley MD [address] [place] [address] PCP - General Internal Medicine 04/17/16 No, Referral Referring Cardiology 09/16/18 Christoph Chavis MD [address] [place] [address] Primary Staff Physician Cardiology 01/27/22 [employer] Cashier Relationship Specialty Start Date End Date Dee Ashley MD [address] [place] [address] PCP - General Internal Medicine 04/17/16 No, Referral Referring Cardiology 09/16/18 Christoph Chavis MD [address] [place] [address] Primary Staff Physician Cardiology 01/27/22 [employer] Cashier Relationship Specialty Start Date End Date Dee Ashley MD [address] [place] [address] PCP - General Internal Medicine 04/17/16 No, Referral Referring Cardiology 09/16/18 Christoph Chavis MD [address] [place] [address] Primary Staff Physician Cardiology 01/27/22 [employer] Cashier Relationship Specialty Start Date End Date Dee Ashley MD [address] [place] [address] PCP - General Internal Medicine 04/17/16 No, Referral Referring Cardiology 09/16/18 Christoph Chavis MD [address] [place] [address] Primary Staff Physician Cardiology 01/27/22 [employer] Cashier Relationship Specialty Start Date End Date Dee Ashley MD [address] [place] [address] PCP - General Internal Medicine 04/17/16 No, Referral Referring Cardiology 09/16/18 Christoph Chavis MD [address] [place] [address] Primary Staff Physician Cardiology 01/27/22 [employer] Cashier Relationship Specialty Start Date End Date Dee Ashley MD [address] [place], [place] [address]1731 PCP - General Internal Medicine 04/17/16 No, Referral Referring Cardiology 09/16/18 Christoph Chavis MD [address] [place] [address] Primary Staff Physician Cardiology 01/27/22 [employer] Cashier Relationship Specialty Start Date End Date Dee Ashley MD [address] [place], [place] [address] PCP - General Internal Medicine 04/17/16 No, Referral Referring Cardiology 09/16/18 Christoph Chavis MD [address] [place] [address] Primary Staff Physician Cardiology 01/27/22 [employer] Cashier Relationship Specialty Start Date End Date Dee Ashley MD [address] [place], [place] 235[address] PCP - General Internal Medicine 04/17/16 No, Referral Referring Cardiology 09/16/18 Christoph Chavis MD [address] [place] [address] Primary Staff Physician Cardiology 01/27/22 [employer] Cashier Relationship Specialty Start Date End Date Dee Ashley MD [address] [place] [address] PCP - General Internal Medicine 04/17/16 No, Referral Referring Cardiology 09/16/18 Christoph Chavis MD [address] [place] [address] Primary Staff Physician Cardiology 01/27/22 [employer] Cashier Relationship Specialty Start Date End Date Dee Ashley MD [address] [place] [address] PCP - General Internal Medicine 04/17/16 No, Referral Referring Cardiology 09/16/18 Christoph Chavis MD [address] [facility] [address] Primary Staff Physician Cardiology 01/27/22 [employer] Cashier Relationship Specialty Start Date End Date Dee Ashley MD [address] [place], [place] [address]77941 PCP - General Internal Medicine 04/17/16 No, Referral Referring Cardiology 09/16/18 Christoph Chavis MD [address] [facility] [address] Primary Staff Physician Cardiology 01/27/22 [employer] Cashier Relationship Specialty Start Date End Date Dee Ashley MD [address] [place] [address] PCP - General Internal Medicine 04/17/16 No, Referral Referring Cardiology 09/16/18 Christoph Chavis MD [address] [facility] [address] Primary Staff Physician Cardiology 01/27/22 [employer] Cashier Relationship Specialty Start Date End Date Dee Ashley MD [address] [place], [place] [address]67271 PCP - General Internal Medicine 04/17/16 No, Referral Referring Cardiology 09/16/18 Christoph Chavis MD [address] [facility] [address] Primary Staff Physician Cardiology 01/27/22 [facility] Cashier Relationship Specialty Start Date End Date Dee Ashley MD [address] [place] [address] PCP - General Internal Medicine 04/17/16 No, Referral Referring Cardiology 09/16/18 Christoph Chavis MD [address] [facility] [place] [address] Primary Staff Physician Cardiology 01/27/22 Hotel D[facility] Cashier Relationship Specialty Start Date End Date Dee Ashley MD [address] [place] [address] PCP - General Internal Medicine 04/17/16 No, Referral Referring Cardiology 09/16/18 Christoph Chavis MD [address] [place] [address] Primary Staff Physician Cardiology 01/27/22 Hotel Dining Room Cashier Relationship Specialty Start Date End Date Dee Ashley MD [address] [place] [address] PCP - General Internal Medicine 04/17/16 No, Referral Referring Cardiology 09/16/18 Christoph Chavis MD [address] [place] [address] Primary Staff Physician Cardiology 01/27/22 Hotel Dining Room Cashier Relationship Specialty Start Date End Date Dee Ashley MD [address] [place] [address] PCP - General Internal Medicine 04/17/16 No, Referral Referring Cardiology 09/16/18 Christoph Chavis MD [address] [place] [address] Primary Staff Physician Cardiology 01/27/22 Hotel Dining Room Cashier Relationship Specialty Start Date End Date Dee Ashley MD [address] [place], [place] 744431 PCP - General Internal Medicine 04/17/16 No, Referral Referring Cardiology 09/16/18 Christoph Chavis MD [address] [place], [place] [id number] Primary Staff Physician Cardiology 01/27/22 Hotel Dining Room Cashier Relationship Specialty Start Date End Date Dee Ashley MD [address] [place], [place] 502661 PCP - General Internal Medicine 04/17/16 No, Referral Referring Cardiology 09/16/18 Christoph Chavis MD [address] [place] [address] Primary Staff Physician Cardiology 01/27/22 Hotel Dining Room Cashier Relationship Specialty Start Date End Date Dee Ashley MD [address] [place] [address] PCP - General Internal Medicine 04/17/16 No, Referral Referring Cardiology 09/16/18 Christoph Chavis MD [address] [place] [address] Primary Staff Physician Cardiology 01/27/22 Hotel Dining Room Cashier Relationship Specialty Start Date End Date Dee Ashley MD [address] [place] [address] PCP - General Internal Medicine 04/17/16 No, Referral Referring Cardiology 09/16/18 Michael Paredes MD Primary Staff Physician Cardiology 11/26/18 Samia Moran, [facility] [address] [place], [place] 197021 Pharmacist Pharmacy 06/16/21 06/03/23 Hotel Dining Room Cashier Relationship Specialty Start Date End Date Dee Ashley MD [address] [place], [place] 732411 PCP - General Internal Medicine 04/17/16 No, Referral Referring Cardiology 09/16/18 Christoph Chavis MD [address] [place] [address] Primary Staff Physician Cardiology 01/27/22 Hotel Dining Room Cashier Relationship Specialty Start Date End Date Dee Ashley MD [address] [place] [address] PCP - General Internal Medicine 04/17/16 No, Referral Referring Cardiology 09/16/18 Christoph Chavis MD [address] [place] [address] Primary Staff Physician Cardiology 01/27/22 Hotel Dining Room Cashier Relationship Specialty Start Date End Date Dee Ashley MD [address] [place] [address] PCP - General Internal Medicine 04/17/16 No, Referral Referring Cardiology 09/16/18 Christoph Chavis MD [address] [place] [address] Primary Staff Physician Cardiology 01/27/22 Hotel Dining Room Cashier Relationship Specialty Start Date End Date Dee Ashley MD [address] [place] [address] PCP - General Internal Medicine 04/17/16 No, Referral Referring Cardiology 09/16/18 Christoph Chavis MD [address] [place] [address] Primary Staff Physician Cardiology 01/27/22 Hotel Dining Room Cashier Relationship Specialty Start Date End Date Dee Ashley MD [address] [place], [place] 603161 PCP - General Internal Medicine 04/17/16 No, Referral Referring Cardiology 09/16/18 Christoph Chavis MD [address] [facility] [place] [address] Primary Staff Physician Cardiology 01/27/22 Hotel Dining Room Cashier Relationship Specialty Start Date End Date Dee Ashley MD [address] [place], [place] 402831 PCP - General Internal Medicine 04/17/16 No, Referral Referring Cardiology 09/16/18 Christoph Chavis MD [address] [place] [address] Primary Staff Physician Cardiology 01/27/22 Hotel Dining Room Cashier Relationship Specialty Start Date End Date Dee Ashley MD [address] [place], [place] 477921 PCP - General Internal Medicine 04/17/16 No, Referral Referring Cardiology 09/16/18 Christoph Chavis MD [address] [place] [address] Primary Staff Physician Cardiology 01/27/22 Lillian Hanks PA-C [address] [place] [address] [facility] 08/17/24 Lino Bhandari APRN.JOB FOREMAN [address] [facility], [place] [address] [facility] 08/17/24 Natalia Vela PA-C [address] [place] [address] [facility] 08/17/24 Hotel Dining Room Cashier Relationship Specialty Start Date End Date Dee Ashley MD [address] [place] [address] PCP - General Internal Medicine 04/17/16 No, Referral Referring Cardiology 09/16/18 Christoph Chavis MD [address] [place], [place] 1057895 Primary Staff Physician Cardiology 01/27/22 Lillian Hanks PA-C [address] [place] [address] [facility] 08/17/24 Lino Bhandari APRN.JOB FOREMAN [address] [place] [address] [facility] 08/17/24 Natalia Vela PA-C [address] [place] [address] [facility] 08/17[facility] Hotel Dining Room Cashier Relationship Specialty Start Date End Date Dee Ashley MD [address] [place] [address] PCP - General Internal Medicine 04/17/16 No, Referral Referring Cardiology 09/16/18 Christoph Chavis MD [address] [place] [address] Primary Staff Physician Cardiology 01/27/22 Lillian Hanks PA-C [address] [place] [address] [facility] 08/17/24 Lino Bhandari APRN.JOB FOREMAN [address] [place] [address] [facility] 08/17/24 Natalia Vela PA-C [address] [place] [address] [facility] 08/17/24 Hotel Dining Room Cashier Relationship Specialty Start Date End Date Dee Ashley MD [address] [place] [address] PCP - General Internal Medicine 04/17/16 No, Referral Referring Cardiology 09/16/18 Christoph Chavis MD [address] [place] [address] Primary Staff Physician Cardiology 01/27/22 Lillain Hanks PA-C [address] [place] [address] [facility] 08/17/24 Lino Bhandari APRN.JOB FOREMAN [address] [place] [address] [facility] Internal [facility] 08/17/24 Natalia Vela PA-C [address] [place] [address] [facility] 08/17/24 Hotel Dining Room Cashier Relationship Specialty Start Date End Date Dee Ashley MD [address] [place], [place] 349301 PCP - General Internal Medicine 04/17/16 No, Referral Referring Cardiology 09/16/18 Christoph Chavis MD [address] [place] [address] Primary Staff Physician Cardiology 01/27/22 Lillian Hanks PA-C [address] [place] [address] [phone] [facility] 08/17/24 Lino Bhandari APRN.CNP [address] [place] [address] [facility] 08/17/24 Natalia Vela PA-C [address] [place] [address] [facility] 08/17/24 Hotel Dining Room Cashier Relationship Specialty Start Date End Date Dee Ashley MD [address] [place], [place] 816871 PCP - General Internal Medicine 04/17/16 No, Referral Referring Cardiology 09/16/18 Christoph Chavis MD [address] [place], [place] [id number] Primary Staff Physician Cardiology 01/27/22 Lillian Hanks PA-C [address] [place] [address] [facility] 08/17/24 Lino Bhandari APRN.JOB FOREMAN [address] [place], [place] 486601 [facility] 08/17/24 Natalia Vela PA-C [address] [place], [place] 081141 [facility] 08/17/24 Hotel Dining Room Cashier Relationship Specialty Start Date End Date Dee Ashley MD [address] [place], [place] 427241 PCP - General Internal Medicine 04/17/16 No, Referral Referring Cardiology 09/16/18 Christoph Chavis MD [address] [place] [address] Primary Staff Physician Cardiology 01/27/22 Lillian Hanks PA-C [address] [place] [address] [facility] 08/17/24 Lino Bhandari APRN.JOB FOREMAN [address] [place], [place] [address] [facility] 08/17/24 Natalia Vela PA-C [address] [place] [address] [facility] 08/17/24 Hotel Dining Room Cashier Relationship Specialty Start Date End Date Dee Ashley MD [address] [place] [address] PCP - General Internal Medicine 04/17/16 No, Referral Referring Cardiology 09/16/18 Christoph Chavis MD [address] [facility] [place] [address] Primary Staff Physician Cardiology 01/27/22 Lillian Hanks PA-C [address] [place] [address] [facility] 08/17/24 Lino Bhandari APRN.JOB FOREMAN [address] [place], [place] 116951 [facility] 08/17/24 Natalia Vela PA-C [address] [place] [address] [facility] 08/17/24 Kennedi Jose, RN [address] [place] [address] [phone] Primary Care Heat And Frost Insulator Helper 10/15/24 Hotel Dining Room Cashier Relationship Specialty Start Date End Date Dee Ashley MD [address] [place] [address] PCP - General Internal Medicine 04/17/16 No, Referral Referring Cardiology 09/16/18 Christoph Chavis MD [address] [facility] [place] [address] Primary Staff Physician Cardiology 01/27/22 Lillian Hanks PA-C [address] [place] [address] [facility] 08/17/24 Lino Bhandari APRN.JOB FOREMAN [address] [place] [address] [facility] 08/17/24 Natalia Vela PA-C [address] [place], [place] 614531 [facility] 08/17/24 Kennedi Jose, JESSICA [address] [place] [address] Primary Care Heat And Frost Insulator Helper 10/15/24 Hotel Dining Room Cashier Relationship Specialty Start Date End Date Dee Ashley MD [address] [place], [place] 390291 PCP - General Internal Medicine 04/17/16 No, Referral Referring Cardiology 09/16/18 Christoph Chavis MD [address] [place] [address] Primary Staff Physician Cardiology 01/27/22 Lillian Hanks PA-C [address] [place] [address] [facility] 08/17/24 Lino Bhandari APRN.CNP [address] [place] [address] [facility] Internal Medicine 08/17/24 Natalia Vela PA-C [address] [place] [address] [facility] 08/17/24 Kennedi Jose, JESSICA [address] [place] [address] Primary Care Heat And Frost Insulator Helper 10/15/24 Hotel Dining Room Cashier Relationship Specialty Start Date End Date Dee Ashley MD [address] [place], [place] 17276691 PCP - General Internal Medicine 04/17/16 No, Referral Referring Cardiology 09/16/18 Christoph Chavis MD [address] [place], [place] [id number] Primary Staff Physician Cardiology 01/27/22 Lillian Hanks PA-C [address] [place] [address] [facility] 08/17/24 Lino Bhandari APRN.JOB FOREMAN [address] [place], [place] [address] [facility] 08/17/24 Natalia Vela PA-C [address] [place] [address] [facility] 08/17/24 Kennedi Jose, RN [address] [place], [place] [id number] Primary Care Heat And Frost Insulator Helper 10/15/24 Hotel Dining Room Cashier Relationship Specialty Start Date End Date Dee Ashley MD [address] [place] [address] PCP - General Internal Medicine 04/17/16 No, Referral Referring Cardiology 09/16/18 Christoph Chavis MD [address] [place] [address] Primary Staff Physician Cardiology 01/27/22 Lillian Hanks PA-C [address] [place] [address] [facility] 08/17/24 Lino Bhandari APRN.JOB FOREMAN [address] [place] [address] [facility] 08/17/24 Natalia Vela PA-C [address] [place] [address] [facility] 08/17/24 Kennedi Jose, JESSICA [address] [place] [phone] Primary Care Heat And Frost Insulator Helper 10/15/24 Hotel Dining Room Cashier Relationship Specialty Start Date End Date Dee Ashley MD [address] [place], [place] 491891 PCP - General Internal Medicine 04/17/16 No, Referral Referring Cardiology 09/16/18 Christoph Chavis MD [address] [place] [address] Primary Staff Physician Cardiology 01/27/22 Lillian Hanks PA-C [address] [place] [id number] [facility] 08/17/24 Lino Bhandari APRN.CNP [address] [place], [place] 601681 [facility] 08/17/24 Natalia Vela PA-C [address] [place], [place] [address] [facility] 08/17/24 Kennedi Jose, JESSICA [address] [place] [address] Primary Care Heat And Frost Insulator Helper 10/15/24 Hotel Dining Room Cashier Relationship Specialty Start Date End Date Dee Ashley MD [address] [place] [address] PCP - General Internal Medicine 04/17/16 No, Referral Referring Cardiology 09/16/18 Christoph Chavis MD [address] [place] [address] Primary Staff Physician Cardiology 01/27/22 Lillian Hanks PA-C [address] [place] [address] [facility] 08/17/24 Lino Bhandari APRN.JOB FOREMAN [address] [place], [place] 898571 [facility] 08/17/24 Natalia Vela PA-C [address] [place] [address] [facility] 08/17/24 Kennedi Jose, JESSICA [address] [place] [address] Primary Care Heat And Frost Insulator Helper 10/15/24 Hotel Dining Room Cashier Relationship Specialty Start Date End Date Dee Ashley MD [address] [place] [address] PCP - General Internal Medicine 04/17/16 No, Referral Referring Cardiology 09/16/18 Christoph Chavis MD [address] [place] [address] Primary Staff Physician Cardiology 01/27/22 Lillian Hanks PA-C [address] [place] [address] [facility] 08/17/24 Lino Bhandari APRN.JOB FOREMAN [address] [place], [place] [address] [facility] 08/17/24 Natalia Vela PA-C [address] [place] [address] [facility] 08/17/24 Kennedi Jose, JESSICA [address] [place], [place] [phone] Primary Care Heat And Frost Insulator Helper 10/15/24 10/24/24 Jose Armando Erickson MD [address] [place] [address] Urology 10/23/24 Tressa Jacobs RN [address] [place], [place] [phone] Primary Care Heat And Frost Insulator Helper 10/24/24 Hotel Dining Room Cashier Relationship Specialty Start Date End Date Dee Ashley MD [address] [place], [place] 990101 PCP - General Internal Medicine 04/17/16 No, Referral Referring Cardiology 09/16/18 Christoph Chavis MD [address] [place] [address] Primary Staff Physician Cardiology 01/27/22 Lillian Hanks PA-C [address] [place] [address] [facility] 08/17/24 Lino Bhandari APRN.JOB FOREMAN [address] [place], [place] 539951 [facility] 08/17/24 Natalia Vela PA-C [address] [place], [place] 441231 [facility] 08/17/24 Jose Armando Erickson MD [address] 901141 Urology 10/23/24 Tressa Jacobs, RN [address] [place] [address] Primary Care Heat And Frost Insulator Helper 10/24/24 Hotel Dining Room Cashier Relationship Specialty Start Date End Date Dee Ashley MD [address] [place], [place] 850711 PCP - General Internal Medicine 04/17/16 No, Referral Referring Cardiology 09/16/18 Christoph Chavis MD [address] [place] [address] Primary Staff Physician Cardiology 01/27/22 Lillian Hanks PA-C [address] [place] [address] [facility] 08/17/24 Lino Bhandari APRN.CNP [address] [place], [place] [address] [facility] 08/17/24 Natalia Vela PA-C [address] [place], [place] [address] [facility] 08/17/24 Jose Armando Erickson MD [address] 246971 Urology 10/23/24 Tressa Jacobs RN [address] [place] [address] Primary Care Heat And Frost Insulator Helper 10/24/24 Hotel Dining Room Cashier Relationship Specialty Start Date End Date Dee Ashley MD [address] [place], [place] 672061 PCP - General Internal Medicine 04/17/16 No, Referral Referring Cardiology 09/16/18 Christoph Chavis MD [address] [place] [address] Primary Staff Physician Cardiology 01/27/22 Lillian aHnks PA-C [address] [place] [address] [facility] 08/17/24 Lino Bhandari APRN.CNP [address] [place], [place] 615621 [facility] 08/17/24 Natalia Vela PA-C [address] [place] [address] [facility] 08/17/24 Jose Armando Erickson MD [address] [place] [address] Urology 10/23/24 Tressa Jacobs RN [address] [place] [address] Primary Care Heat And Frost Insulator Helper 10/24/24 Hotel Dining Room Cashier Relationship Specialty Start Date End Date Dee Ashley MD [address] [place], [place] [id number] PCP - General Internal Medicine 04/17/16 No, Referral Referring Cardiology 09/16/18 Christoph Chavis MD [address] [place] [address] Primary Staff Physician Cardiology 01/27/22 Lillian Hanks PA-C [address] [place] [address] [facility] 08/17/24 Lino Bhandari APRN.JOB FOREMAN [address] [place], [place] [address] [facility] 08/17/24 Natalia Vela PA-C [address] [place] [address] 889891 [facility] 08/17/24 Jose Armando Erickson MD [address] [place] [address] [id number] Urology 10/23/24 Tressa Jacobs, RN [address] [place] [address] Primary Care Heat And Frost Insulator Helper 10/24/24 Hotel Dining Room Cashier Relationship Specialty [place] [address] [place] [address] PCP - General Internal Medicine 04/17/16 No, Referral Referring Cardiology 09/16/18 Christoph Chavis MD [address] [place] [address] Primary Staff Physician Cardiology 01/27/22 Lillian Hanks PA-C [address] [place] [address] [facility] 08/17/24 Lino Bhandari APRN.JOB FOREMAN [address] [place], [place] 616431 [facility] 08/17/24 Natalia Vela PA-C [address] [place], [place] [address] [facility] 08/17/24 Jose Armando Erickson MD [address] [place] [address] [id number] Urology 10/23/24 Tressa Jacobs, JESSICA [address] [place] [address] Primary Care Heat And Frost Insulator Helper 10/24/24 Hotel Dining Room Cashier Relationship Specialty [place] [address] [place] [address] 507241 PCP - General Internal Medicine 04/17/16 No, Referral Referring Cardiology 09/16/18 Christoph Chavis MD [address] [place] [address] Primary Staff Physician Cardiology 01/27/22 Lillian Hanks PA-C [address] [place] [address] [facility] 08/17/24 Lino Bhandari APRN.JOB FOREMAN [address] [place] [address] [facility] 08/17/24 Natalia Vela PA-C [address] [place] [address] [facility] 08/17/24 Jose Armando Erickson MD [address] [address] Urology 10/23/24 Tressa Jacobs RN [address] [place] [address] Primary Care Heat And Frost Insulator Helper 10/24/24 Hotel Dining Room Cashier Relationship Specialty Start Date End Date Dee Ashley MD [address] [place] [address] PCP - General Internal Medicine 04/17/16 No, Referral Referring Cardiology 09/16/18 Christoph Chavis MD [address] [place], [place] [id number] Primary Staff Physician Cardiology 01/27/22 Lillian Hanks PA-C [address] [place] [id number] [facility] 08/17/24 Lino Bhanadri APRN.CNP [address] [place] [address] [facility] 08/17/24 Natalia Vela PA-C [address] [place], [place] [phone] [facility] 08/17/24 Jose Armando Erickson MD [address] [address] Urology 10/23/24 Tressa Jacobs RN [address] [place] [address] Primary Care Heat And Frost Insulator Helper 10/24/24 Hotel Dining Room Cashier Relationship Specialty Start Date End Date Dee Ashley MD [address] [place], [place] 139011 PCP - General Internal Medicine 04/17/16 No, Referral Referring Cardiology 09/16/18 Christoph Chavis MD [address] [facility] [place] [id number] Primary Staff Physician Cardiology 01/27/22 Lillian Hanks PA-C [address] [place] [address] [facility] 08/17/24 Lino Bhandari APRN.CNP [address] [place] [address] [phone] [facility] 08/17/24 Natalia Vela PA-C [address] [place] [address] 527751 [facility] 08/17/24 Jose Armando Erickson MD [address] [place] [address] [id number] Urology 10/23/24 Hotel Dining Room Cashier Relationship Specialty Start Date End Date Dee Ashley MD [address] [place], [place] 347551 PCP - General Internal Medicine 04/17/16 No, Referral Referring Cardiology 09/16/18 Christoph Chavis MD [address] [place] [id number] Primary Staff Physician Cardiology 01/27/22 Lillian Hanks PA-C [address] [place] [address] [facility] 08/17/24 Lino Bhandari APRN.JOB FOREMAN [address] [place] [address] [facility] 08/17/24 Natalia Vela PA-C [address] [place] [address] 533761 [facility] 08/17/24 Jose Armando Erickson MD [address] [place] [address] [phone] Urology 10/23/24 Hotel Dining Room Cashier Relationship Specialty [place] [address] [place] [address] 377771 PCP - General Internal Medicine 04/17/16 No, Referral Referring Cardiology 09/16/18 Christoph Chavis MD [address] [place] [address] Primary Staff Physician Cardiology 01/27/22 Lillian Hanks PA-C [address] [place] [address] [facility] 08/17/24 11/30/24 Lino Bhandari APRN.JOB FOREMAN [address] [place] [address] [facility] 08/17/24 Natalia Vela PA-C [address] [place] [address] [facility] 08/17/24 11/30/24 Kennedi Jose, RN [address] [place], [place] [phone] Primary Care [employer] And Frost Insulator Helper 10/15/24 10/24/24 Jose Armando Erickson MD [address] [address] Urology 10/23/24 Tressa Jacobs, JESSICA [address] [place], [place] [phone] Primary Care Heat And Frost Insulator Helper 10/24/24 11/12/24 Hotel Dining Room Cashier Relationship Specialty Start Date End Date Dee Ashley MD [address] [place] [address] PCP - General Internal Medicine 04/17/16 No, Referral Referring Cardiology 09/16/18 Christoph Chavis MD [address] [place] [address] Primary Staff Physician Cardiology 01/27/22 Lino Bhandari APRN.JOB FOREMAN [address] [place], [place] 976591 [facility] 08/17/24 Jose Armando Erickson MD [address] [phone] Urology 10/23/24 Hotel Dining Room Cashier Relationship Specialty Start Date End Date Dee Ashley MD [address] [place], [place] 571941 PCP - General Internal Medicine 04/17/16 No, Referral Referring Cardiology 09/16/18 Christoph Chavis MD [address] [facility] [address] Primary Staff Physician Cardiology 01/27/22 Lillian Hanks PA-C [address] [place] [address] [facility] 08/17/24 11/30/24 Lino Bhandari APRN.JOB FOREMAN [address] [place], [place] 463171 [facility] 08/17/24 Natalia Vela PA-C [address] [place], [place] 653051 [facility] 08/17/24 11/30/24 Jose Armando Erickson MD [address] [place] [address] [id number] Urology 10/23/24 Hotel Dining Room Cashier Relationship Specialty Start Date End Date Dee Ashley MD [address] [place], [place] 343131 PCP - General Internal Medicine 04/17/16 No, Referral Referring Cardiology 09/16/18 Christoph Chavis MD [address] [facility] [address] Primary Staff Physician Cardiology 01/27/22 Lino Bhandari APRN.JOB FOREMAN [address] [place] [address] [facility] 08/17/24 Jose Armando Erickson MD [address] 071191 Urology 10/23/24 Hotel Dining Room Cashier Relationship Specialty Start Date End Date Dee Ashley MD [address] [place], [place] 223321 PCP - General Internal Medicine 04/17/16 No, Referral Referring Cardiology 09/16/18 Christoph Chavis MD [address] [place] [place], [place] [id number] Primary Staff Physician Cardiology 01/27/22 Lino Bhandari APRN.JOB FOREMAN [address] [place], [place] 260031 [facility] 08/17/24 Jose Armando Erickson MD [address] [address] Urology 10/23/24 Hotel Dining Room Cashier Relationship Specialty Start Date End Date Dee Ashley MD [address] [place] [address] PCP - General Internal Medicine 04/17/16 No, Referral Referring Cardiology 09/16/18 Christoph Chavis MD [address] [place] [address] Primary Staff Physician Cardiology 01/27/22 Lino Bhandari APRN.JOB FOREMAN [address] [place] [address] [facility] 08/17/24 Jose Armando Erickson MD [address] [address] Urology 10/23/24 Hotel [facility] Room Cashier Relationship Specialty Start Date End Date Dee Ashley MD [address] [place] [address] PCP - General Internal Medicine 04/17/16 No, Referral Referring Cardiology 09/16/18 Christoph Chavis MD [address] [facility] [place] [address] Primary Staff Physician Cardiology 01/27/22 Lino Bhandari APRN.JOB FOREMAN [address] [place] [address] [facility] 08/17/24 Jose Armando Erickson MD [address] [address] Urology 10/23/24 Hotel Dining Room Cashier Relationship Specialty Start Date End Date Dee Ashley MD [address] [place] [address] PCP - General Internal Medicine 04/17/16 No, Referral Referring Cardiology 09/16/18 Christoph Chavis MD [address] [place] [address] Primary Staff Physician Cardiology 01/27/22 Lino Bhandari APRN.[employer] [address] [place] [address] [facility] 08/17/24 Jose Armando Erickson MD [address] [address] Urology 10/23/24 Hotel Dining Room Cashier Relationship Specialty Start Date End Date Dee Ashley MD [address] [place] [address] PCP - General Internal Medicine 04/17/16 No, Referral Referring Cardiology 09/16/18 Christoph Chavis MD [address] [place] [address] Primary Staff Physician Cardiology 01/27/22 Lino Bhandari APRN.[employer] [address] [place] [address] [facility] 08/17/24 Jose Armando Erickson MD [address] [place] [address] Urology 10/23/24 Hotel Dining Room Cashier Relationship Specialty Start Date End Date Dee Ashley MD [address] [place] [address] PCP - General Internal Medicine 04/17/16 No, Referral Referring Cardiology 09/16/18 Christoph Chavis MD [address] [place] [address] Primary Staff Physician Cardiology 01/27/22 Lino Bhandari APRN.[employer] [address] [place], [place] 147501 [facility] 08/17/24 Jose Armando Erickson MD [address] [id number] Urology 10/23/24 Hotel Dining Room Cashier Relationship Specialty Start Date End Date Dee Ashley MD [address] [place], [place] 131401 PCP - General Internal Medicine 04/17/16 No, Referral Referring Cardiology 09/16/18 Christoph Chavis MD [address] [place] [address] Primary Staff Physician Cardiology 01/27/22 Lillian Hanks PA-C [address] [place] [address] [facility] 08/17/24 11/30/24 Lino Bhandari APRN.[facility] [address] [place], [place] [address] [facility] Internal Medicine 08/17/24 Natalia Vela PA-C [address] [place], [place] 827221 [facility] 08/17/24 11/30/24 Jose Armando Erickson MD [address] [place] [address] Urology 10/23/24 Hotel Dining Room Cashier Relationship Specialty Start Date End Date Dee Ashley MD [address] [place] [address] PCP - General Internal Medicine 04/17/16 No, Referral Referring Cardiology 09/16/18 Christoph Chavis MD [address] [place], [place] [id number] Primary Staff Physician Cardiology 01/27/22 Lino Bhandari APRN.[employer] [address] [place], [place] 101[address]81 [facility] 08/17/24 Jose Armando Erickson MD [address] 073851 Urology 10/23/24 Hotel Dining Room Cashier Relationship Specialty Start Date End Date Dee Ashley MD [address] [place], [place] 576591 PCP - General Internal Medicine 04/17/16 No, Referral Referring Cardiology 09/16/18 Christoph Chavis MD [address] [place] [place], [place] [id number] Primary Staff Physician Cardiology 01/27/22 Lino Bhandari APRN.[employer] [address] [place], [place] 960741 [facility] 08/17/24 Jose Armando Erickson MD [address] [place] [address] [id number] Urology 10/23/24 Hotel Dining Room Cashier Relationship Specialty Start Date End Date Dee Ashley MD [address] [place] [address] PCP - General Internal Medicine 04/17/16 No, Referral Referring Cardiology 09/16/18 Christoph Chavis MD [address] [place] [address] Primary Staff Physician Cardiology 01/27/22 Lino Bhandari APRN.[employer] [address] [place], [place] 664271 [facility] 08/17/24 Jose Armando Erickson MD [address] [address] Urology 10/23/24 Hotel Dining Room Cashier Relationship Specialty Start Date End Date Dee Ashley MD [address] [place] [address] PCP - General Internal Medicine 04/17/16 No, Referral Referring Cardiology 09/16/18 Christoph Chavis MD [address] [place] [address] Primary Staff Physician Cardiology 01/27/22 Lino Bhandari APRN.[employer] [address] [place] [address] [facility] 08/17/24 Jose Armando Erickson MD [address] [address] Urology 10/23/24 Hotel Dining Room Cashier Relationship Specialty Start Date End Date Dee Ashley MD [address] [place] [address] PCP - General Internal Medicine 04/17/16 No, Referral Referring Cardiology 09/16/18 Christoph Chavis MD [address] [place] [address] Primary Staff Physician Cardiology 01/27/22 Lino Bhandari APRN.[employer] [address] [place] [address] [facility] 08/17/24 Jose Armando Erickson MD [address] [address] Urology 10/23/24 Hotel Dining Room Cashier Relationship Specialty Start Date End Date Dee Ashley MD [address] [place] [address] PCP - General Internal Medicine 04/17/16 No, Referral Referring Cardiology 09/16/18 Christoph Chavis MD [address] [place] [address] Primary Staff Physician Cardiology 01/27/22 Lino Bhandari APRN.[employer] [address] [place] [address] [facility] 08/17/24 Jose Armando Erickson MD [address] [address] Urology 10/23/24 Hotel Dining Room Cashier Relationship Specialty Start Date End Date Dee Ashley MD [address] [place] [address] PCP - General Internal Medicine 04/17/16 No, Referral Referring Cardiology 09/16/18 Christoph Chavis MD [address] [place] [address] Primary Staff Physician Cardiology 01/27/22 Lino Bhandari APRN.[employer] FOREMAN [address] [place], [place] 698091 [facility] 08/17/24 Jose Armando Erickson MD [address] [place] [address] [id number] Urology 10/23/24 Hotel Dining Room Cashier Relationship Specialty Start Date End Date Dee Ashley MD [address] [place] [address] PCP - General Internal Medicine 04/17/16 No, Referral Referring Cardiology 09/16/18 Christoph Chavis MD [address] [place] [address] Primary Staff Physician Cardiology 01/27/22 Lino Bhandari APRN.[employer] FOREMAN [address] [place] [address] [facility] 08/17/24 Jose Armando Erickson MD [address] [place] [address] [id number] Urology 10/23/24 Hotel Dining Room Cashier Relationship Specialty Start Date End Date Dee Ashley MD [address] [place] [address] PCP - General Internal Medicine 04/17/16 No, Referral Referring Cardiology 09/16/18 Christoph Chavis MD [address] [place] [address] Primary Staff Physician Cardiology 01/27/22 Lino Bhandari APRN.[employer] FOREMAN [address] [place] [address] [facility] 08/17/24 Jose Armando Erickson MD [address] [phone] Urology 10/23/24 Hotel Dining Room Cashier Relationship Specialty Start Date End Date Dee Ashley MD [address] [place] [address] PCP - General Internal Medicine 04/17/16 No, Referral Referring Cardiology 09/16/18 Christoph Chavis MD [address] [place] [address] Primary Staff Physician Cardiology 01/27/22 Lino Bhandari APRN.[employer] FOREMAN [address] [place] [address] [facility] 08/17/24 Jose Armando Erickson MD [address] [phone] Urology 10/23/24 Hotel Dining Room Cashier Relationship Specialty Start Date End Date Dee Ashley MD [address] [place] [address] PCP - General Internal Medicine 04/17/16 No, Referral Referring Cardiology 09/16/18 Christoph Chavis MD [address] [place] [address] Primary Staff Physician Cardiology 01/27/22 Lino Bhandari APRN.[employer] [address] [place] [address] [facility] 08/17/24 Jose Armando Erickson MD [address] [address] Urology 10/23/24 Hotel Dining Room Cashier Relationship Specialty Start Date End Date Dee Ashley MD [address] [place], [place] 655251 PCP - General Internal Medicine 04/17/16 No, Referral Referring Cardiology 09/16/18 Christoph Chavis MD [address] [place], [place] [id number] Primary Staff Physician Cardiology 01/27/22 Lino Bhandari APRN.[employer] FOREMAN [address] [place], [place] 415171 [facility] 08/17/24 Jose Armando Erickson MD [address] [address] Urology 10/23/24 Hotel Dining Room Cashier Relationship Specialty Start Date End Date Dee Ashley MD [address] [place], [place] 869211 PCP - General Internal Medicine 04/17/16 No, Referral Referring Cardiology 09/16/18 Christoph Chavis MD [address] [place] [address] Primary Staff Physician Cardiology 01/27/22 Lino Bhandari APRN.[employer] [address] [place] [address] [facility] 08/17/24 Jose Armando Erickson MD [address] [address] Urology 10/23/24 Hotel Dining Room Cashier Relationship Specialty Start Date End Date Dee Ashley MD [address] [place] [address] PCP - General Internal Medicine 04/17/16 No, Referral Referring Cardiology 09/16/18 Christoph Chavis MD [address] [place] [address] Primary Staff Physician Cardiology 01/27/22 Lino Bhandari APRN.[employer] FOREMAN [address] [place] [address] [facility] 08/17/24 Jose Armando Erickson MD [address] [address] Urology 10/23/24 Hotel Dining Room Cashier Relationship Specialty Start Date End Date Dee Ashley MD [address] [place] [address] PCP - General Internal Medicine 04/17/16 No, Referral Referring Cardiology 09/16/18 Christoph Chavis MD [address] [place] [address] Primary Staff Physician Cardiology 01/27/22 Lino Bhandari APRN.[employer] FOREMAN [address] [place] [address] [facility] 08/17/24 Jose Armando Erickson MD [address] [address] Urology 10/23/24 Team Status: Active Member Role/Relationship Status Dates Dr. Dee Ashley MD Primary Care Provider Active Team Status: Inactive Member Role/Relationship Status Dates Dr. Dee Ashley MD Primary Care Provider Active Start: May 26, 2025 End: May 26, 2025 Dr. Sim Zimmerman MD Emergency Provider Active Sta rt: May 26, 2025 End: May 26, 2025 Goals (unrecognized section and content) Goals may be documented in a n alternate sectionGoals may be documented in an alternate sectionGoals may be documented in an alternate sectionGoals may be documented in an alternate section FOR RECORDS PERTAINING TO PATIENTS WHO ARE OR HAVE BEEN ENROLLED IN A CHEMICAL DEPENDENCY/SUBSTANCEABUSE PROGRAM, SOME INFORMATION MAY BE OMITTED. This clinical summary was aggregated from multiple sources. Caution should be exercised in using it in the provision of clinical care. This summary normalizes information from multiple sources, and as a consequence, information in this document may materially change the coding, format and clinical context of patient data. In addition, data may be omitted in some cases. CLINICAL DECISIONS SHOULD BE BASED ON THE PRIMARY CLINICAL RECORDS. [facility] [employer] [facility]. provides no warranty or guarantee of the accuracy or completeness of information in this document.
[2025-08-07 12:11] LABS: Differential Indicated SCAN CRITERIA MET; Hematocrit 27.6 % (40-54); Hemoglobin 8.6 g/dL (13.0-16.5); Immature Granulocytes Count 0.020 X10^3/uL (0.0-0.0); Mean Corp Hgb Conc 31.2 g/dL (32-36); Mean Corpuscular Volume 90.5 fL (80-94); Mean Platelet Vol. 10.1 fl (6.2-12.0); NRBC Flagged by Analyzer 0 % (0-5); POSITIVE COUNT YES; POSITIVE DIFFERENTIAL YES; POSITIVE MORPHOLOGY YES; Platelet Count 63 K/mm3 (150-450); RBC Distribution Width CV 20.7 % (11.6-14.6); RBC Distribution Width SD 68.7 fl (35.1-43.9); Red Blood Count 3.05 M/mm3 (4.6-6.2); White Blood Count 3.0 K/mm3 (4.4-11.0)
[2025-08-07 12:32] LABS: Anisocytosis 2+; Differential Comment SCANNED; Polychromasia RARE
[2025-08-07 12:33] LABS: Macrocytosis 1+; Microcytosis 1+
[2025-08-07 12:40] LABS: Anion Gap 9 (5-15); BUN 13 mg/dL (4-19); BUN/Creat Ratio 7.1 RATIO (10-20); Calcium,Total 8.8 mg/dL (7.6-11.0); Carbon Dioxide 23.3 mmol/L (21.0-32.0); Chloride 104 mmol/L (98-108); Estimated Creatinine Clearance 45.62 ml/min (50-250); Glucose 108 mg/dL (70-99); Potassium 4.9 mmol/L (3.3-5.1)
[2025-08-07 13:05] LABS: Mucous, Urine 0 SEEN /hpf (<or=2+); Red Blood Cells-Urine 0 SEEN /hpf (0-5); Squamous Epithelial Cells - UA 0 SEEN /hpf (0-5)
[2025-08-07 13:06] LABS: Color, Urine Yellow (Yellow); Glucose, Dipstick Normal (Normal); Ketone-Dipstick Negative (Negative); Leukocyte Esterase-Dipstick 25 /ul (Negative); Nitrite-Dipstick Positive (Negative); Occult Blood-Urine 25 /ul (Negative); Protein-Dipstick 15 mg/dl (Negative); Specific Gravity, Urine 1.010 (1.002-1.030); Urine Bilirubin Dipstick Negative (Negative)
[2025-08-07 13:43] VITALS: BP 129/70; PULSE 67; RESP 18; TEMP 36.7; O2SAT 98
== END 2025-08-07 13:43 | disposition home or self-care (01) ==
PROVIDERS: Emergency Provider Student in an Organized Health Care Education/Training Program; PCP Internal Medicine; Visit Provider Student in an Organized Health Care Education/Training Program
DX: N39.0 Urinary tract infection, site not specified (principal); I48.91 Unspecified atrial fibrillation; N18.30 Chronic kidney disease, stage 3 unspecified; I12.9 Hypertensive chronic kidney disease with stage 1 through stage 4 chronic kidney disease, or unspecified chronic kidney disease; D63.1 Anemia in chronic kidney disease; D69.6 Thrombocytopenia, unspecified; D72.819 Decreased white blood cell count, unspecified; Z79.01 Long term (current) use of anticoagulants; Z79.899 Other long term (current) drug therapy; Z87.891 Personal history of nicotine dependence
CPT/HCPCS: 80048; 81001; 85025; 99283; A4216

== ENCOUNTER 2025-08-12 10:19 | Inpatient (IN) | payer MEDICARE, SELFPAY ==
[2025-08-12] VITALS (36 sets, daily range): BP systolic 91–145; BP diastolic 49–111; PULSE 59–78; RESP 9–30; TEMP 36.2–36.8; O2SAT 93–135; BMI 38.7; BMI 32.2; BMI 39.3
--- NOTE | 2025-08-12 10:41 | EKG12_ITS ---
Test Reason : SYNCOPE Blood Pressure : */* mmHG Vent. Rate : 64 BPM Atrial Rate : 64 BPM P-R Int : 354 ms QRS Dur : 78 ms QT Int : 418 ms P-R-T Axes : 73 -22 49 degrees QTcB Int : 431 ms Sinus rhythm with sinus arrhythmia with 1st degree A-V block with frequent ventricular-paced complexes Inferior infarct , age undetermined Abnormal ECG bpm Confirmed by ALMA DELIA IBANEZ, MICAELA ([id number]), editor dictionary SUZANNA THOMPSON ([id number]) on 08/14/2025 9:01:20 AM Referred By: Confirmed By: MICAELA FLANNERY MD
[2025-08-12 10:59] LABS: Hematocrit 32.9 % (40-54); Hemoglobin 10.0 g/dL (13.0-16.5); Immature Granulocytes Count 0.030 X10^3/uL (0.0-0.0); Mean Corp Hgb Conc 30.4 g/dL (32-36); Mean Corpuscular Volume 90.9 fL (80-94); Mean Platelet Vol. 10.5 fl (6.2-12.0); NRBC Flagged by Analyzer 0 % (0-5); POSITIVE COUNT YES; POSITIVE MORPHOLOGY YES; Platelet Count 80 K/mm3 (150-450); RBC Distribution Width CV 20.3 % (11.6-14.6); RBC Distribution Width SD 68.5 fl (35.1-43.9); Red Blood Count 3.62 M/mm3 (4.6-6.2); White Blood Count 5.2 K/mm3 (4.4-11.0)
[2025-08-12 11:01] LABS: Differential Indicated SCAN CRITERIA MET
[2025-08-12 11:08] LABS: Prothrombin Time (Protime)PT. 17.1 SECONDS (11.7-14.9)
--- NOTE | 2025-08-12 11:10 | ED.VIS.FALL ---
HPI HPI - Fall History of Present Illness Chief Complaint: Fall Narrative Narrative: Patient is a 75-year-old male presenting to the emergency department after being seen in the primary care doctor's office. Patient has a past medical history of sleep apnea, A-fib on warfarin, ICD placement, hypertension, hyperlipidemia, type 2 diabetes and diabetic neuropathy. He reports that he was sent here for a multitude of reasons. He is a very poor historian and is at bedside helping to provide additional history. Reportedly over the past 2 to 3 days he has felt generally weak. Reports shortness of breath with rest and exertion. Today the patient thinks he lost consciousness twice which caused him to fall twice. Patient states that he hit his right elbow on something and is complaining of right elbow, left shoulder and left hip pain. States when he was seen at a primary care doctor's office he was hypotensive and hypoxic. Patient denies headache, neck pain or back pain. Denies chest pain, abdominal pain, diaphoresis, nausea or vomiting. Last tetanus shot was within the past year. [facility] Medical History Injury of head and neck Cancer Hepatitis Former smoker CPAP (continuous positive airway pressure) dependence Sleep apnea Atrial fibrillation ICD (implantable cardioverter-defibrillator) in place Pacemaker Hypertension Acute calculous cholecystitis Hyperlipemia Diabetic neuropathy HTN (hypertension) Diabetes Home Medications ?Medication ?Instructions ?Recorded ?Last Taken ?Type allopurinol 100 mg tablet 200 mg PO DAILYCM GOUT 05/12/14 10/09/24 History aspirin 81 mg chewable tablet 81 mg PO DAILY@0800 HEALTH 05/12/14 10/08/24 History atorvastatin 20 mg tablet 20 mg PO QODAY CHOLESTEROL 05/12/14 10/07/24 History duloxetine 60 mg capsule,delayed 60 mg PO DAILY MOOD 05/12/14 10/09/24 History release hydrochlorothiazide 25 mg tablet 25 mg PO DAILY BP 05/12/14 10/09/24 History Held on 10/13/24. Instructions: Hold for 1 week and restart at lower dose 12.5 mg daily. lisinopril 40 mg tablet 40 mg PO DAILY BP 05/12/14 10/09/24 History Held on 10/13/24. Instructions: Hold for 1 week and follow with BMP with PCP potassium chloride 10 mEq 10 meq PO BID SUPPLEMENT 05/12/14 10/09/24 History tablet,extended release (Klor-Con) acetaminophen 500 mg tablet 1,000 mg PO BID PRN Pain 06/09/21 06/09/21 07:00 History amlodipine 5 mg tablet 5 mg PO DAILY BP 06/09/21 10/09/24 History magnesium oxide 400 mg PO BID SUPPLEMENT 06/09/21 10/09/24 History metoprolol tartrate 100 mg tablet 100 mg PO BID HEART 06/09/21 10/09/24 History tamsulosin 0.4 mg capsule 0.8 mg PO DAILY PROSTATE 06/09/21 10/08/24 History warfarin 5 mg tablet 5 mg PO MOTUWETH BLOODTHINNER 06/09/21 10/09/24 History apremilast 30 mg tablet (Otezla) 30 mg PO DAILY ARTHRITIS 10/09/24 10/08/24 History bupropion HCl 150 mg 24 hr tablet, 150 mg PO DAILY MOOD 10/09/24 10/09/24 History extended release clobetasol 0.05 % scalp solution See Rx Instructions topical 10/09/24 10/08/24 History .COMPLEX SCALP gabapentin 600 mg tablet 600 mg PO QHS PAIN 10/09/24 10/08/24 History warfarin 2.5 mg tablet 2.5 mg PO SUFRSA BLOOD THNNER 10/09/24 10/03/24 History insulin glargine 100 unit/mL (3 12 unit (0.12 mL) subcut QHS DM 30 10/13/24 06/07/21 Rx mL) subcutaneous pen ( #0 mL Solostar U-100 Insulin) cephalexin 500 mg capsule 500 mg PO Q12H 7 days #14 caps 11/10/24 Unknown Rx amoxicillin 875 mg-potassium 875 mg PO Q12H #10 TABLETS 05/26/25 Unknown Rx clavulanate 125 mg tablet cephalexin 500 mg capsule 500 mg PO Q6 #40 CAPSULES 08/07/25 Unknown Rx Allergy/AdvReac Type Severity Reaction Status Date / Time No Known Allergies Allergy Verified 08/12/25 10:20 Surgical History Status post laparoscopic cholecystectomy (~06/2021) Social History household members: spouse housing: house Smoking Status: Former smoker ROS ROS ED ROS Narrative see HPI EXAM Physical Exam Narrative Exam Narrative: Vital signs: Reviewed General: Alert and oriented x 3. No acute distress. Chronically ill-appearing, nontoxic HEENT: Head is normocephalic and atraumatic. No cephalhematoma, lacerations or abrasions to the head or face. Sinuses nontender, pupils equal round and reactive. Nares are patent. Oropharynx and throat exams normal. Neck: Supple without lymphadenopathy nontender. No midline cervical spinal tenderness to palpation. No step-offs or deformities. Cardiovascular: Regular rate and rhythm, no murmurs. No rubs or gallops. Normal S1 and S2 Respiratory: Clear to auscultation bilaterally. No wheezes, rales, rhonchi Chest: Chest wall is atraumatic and nontender to palpation. There is no crepitus, erythema or ecchymosis. Abdominal: Soft and nontender. Normal bowel sounds. No guarding or rebound. Nonsurgical abdomen Extremities: No midline thoracic or lumbar spinal tenderness to palpation. No step-offs or deformities. Hips are stable to palpation. There is tenderness to palpation of the left hip. No obvious deformity. Bilateral lower extremities are otherwise atraumatic and nontender to palpation. He has decreased range of motion at the left hip due to pain but he is able to flex and extend. There is a large 4-5 cm laceration to the right dorsal portion of the upper arm right above the elbow. It is fairly deep involving subcutaneous tissue and gaping. No tendon or bony involvement. No FB on wound exploration. No active bleeding. There is tenderness to palpation of the elbow with no obvious deformity. Radial pulses intact bilaterally. There is tenderness to palpation of the left shoulder with no obvious deformity. Range of motion of bilateral upper extremities is within normal limits. Bilateral DP and PT and radial pulses are intact and symmetric. Neurological: Cranial nerves II through XII are grossly intact. Normal strength and sensation. Normal cerebellar function The rest of the physical exam is unremarkable Const Vital Signs: 08/12/25 10:20 08/12/25 10:22 08/12/25 10:30 Temperature 97.2 F L 97.2 F L Temperature Source Temporal Oral Pulse Rate 61 61 Pulse Rate [Lying] Pulse Rate [Sitting (for 1 minute prior to obtaining)] Pulse Rate [Standing (for 1 minute prior to obtaining)] Respiratory Rate 19 H 19 H Respiratory Effort Normal Non-Labored Respiratory Depth Normal Respiratory Pattern Normal Blood Pressure 101/58 L 101/58 L Blood Pressure [Lying] Blood Pressure [Sitting (for 1 minute prior to obtaining)] Blood Pressure [Standing (for 1 minute prior to obtaining)] Blood Pressure Mean 72 72 Blood Pressure Mean [Lying] Blood Pressure Mean [Sitting (for 1 minute prior to obtaining)] Blood Pressure Mean [Standing (for 1 minute prior to obtaining)] Pulse Ox 94 94 Oxygen Delivery Method Room Air Room Air 08/12/25 11:15 08/12/25 11:22 08/12/25 11:30 Temperature 97.9 F Temperature Source Oral Pulse Rate 71 71 Pulse Rate [Lying] Pulse Rate [Sitting (for 1 minute prior to obtaining)] Pulse Rate [Standing (for 1 minute prior to obtaining)] Respiratory Rate 25 H 25 H Respiratory Effort Respiratory Depth Respiratory Pattern Blood Pressure 118/62 118/62 106/89 H Blood Pressure [Lying] Blood Pressure [Sitting (for 1 minute prior to obtaining)] Blood Pressure [Standing (for 1 minute prior to obtaining)] Blood Pressure Mean 79 80 96 Blood Pressure Mean [Lying] Blood Pressure Mean [Sitting (for 1 minute prior to obtaining)] Blood Pressure Mean [Standing (for 1 minute prior to obtaining)] Pulse Ox 98 98 Oxygen Delivery Method Room Air 08/12/25 11:43 08/12/25 11:45 08/12/25 12:00 Temperature 97.8 F Temperature Source Oral Pulse Rate 67 60 68 Pulse Rate [Lying] Pulse Rate [Sitting (for 1 minute prior to obtaining)] Pulse Rate [Standing (for 1 minute prior to obtaining)] Respiratory Rate 13 13 18 Respiratory Effort Respiratory Depth Respiratory Pattern Blood Pressure 120/67 129/68 H Blood Pressure [Lying] Blood Pressure [Sitting (for 1 minute prior to obtaining)] Blood Pressure [Standing (for 1 minute prior to obtaining)] Blood Pressure Mean 84 88 Blood Pressure Mean [Lying] Blood Pressure Mean [Sitting (for 1 minute prior to obtaining)] Blood Pressure Mean [Standing (for 1 minute prior to obtaining)] Pulse Ox 96 95 98 Oxygen Delivery Method Room Air 08/12/25 12:00 08/12/25 12:15 08/12/25 12:30 Temperature Temperature Source Pulse Rate 68 Pulse Rate [Lying] Pulse Rate [Sitting (for 1 minute prior to obtaining)] Pulse Rate [Standing (for 1 minute prior to obtaining)] Respiratory Rate 14 Respiratory Effort Respiratory Depth Respiratory Pattern Blood Pressure 129/68 H 133/70 H 116/90 H Blood Pressure [Lying] Blood Pressure [Sitting (for 1 minute prior to obtaining)] Blood Pressure [Standing (for 1 minute prior to obtaining)] Blood Pressure Mean 86 88 99 Blood Pressure Mean [Lying] Blood Pressure Mean [Sitting (for 1 minute prior to obtaining)] Blood Pressure Mean [Standing (for 1 minute prior to obtaining)] Pulse Ox 96 97 Oxygen Delivery Method 08/12/25 12:37 08/12/25 12:45 08/12/25 13:00 Temperature 97.8 F Temperature Source Temporal Pulse Rate 60 62 Pulse Rate [Lying] Pulse Rate [Sitting (for 1 minute prior to obtaining)] Pulse Rate [Standing (for 1 minute prior to obtaining)] Respiratory Rate 14 14 Respiratory Effort Respiratory Depth Respiratory Pattern Blood Pressure 116/61 123/64 H Blood Pressure [Lying] Blood Pressure [Sitting (for 1 minute prior to obtaining)] Blood Pressure [Standing (for 1 minute prior to obtaining)] Blood Pressure Mean 79 83 Blood Pressure Mean [Lying] Blood Pressure Mean [Sitting (for 1 minute prior to obtaining)] Blood Pressure Mean [Standing (for 1 minute prior to obtaining)] Pulse Ox 95 97 Oxygen Delivery Method Room Air 08/12/25 13:00 08/12/25 13:05 08/12/25 13:06 Temperature Temperature Source Pulse Rate 61 68 Pulse Rate [Lying] 62 Pulse Rate [Sitting (for 1 minute prior to obtaining)] 61 Pulse Rate [Standing (for 1 minute prior to obtaining)] 69 Respiratory Rate 12 11 L Respiratory Effort Respiratory Depth Respiratory Pattern Blood Pressure 123/64 H 116/69 Blood Pressure [Lying] 116/69 Blood Pressure [Sitting (for 1 minute prior to obtaining)] 91/54 L Blood Pressure [Standing (for 1 minute prior to obtaining)] 95/49 L Blood Pressure Mean 80 82 Blood Pressure Mean [Lying] 84 Blood Pressure Mean [Sitting (for 1 minute prior to obtaining)] 66 Blood Pressure Mean [Standing (for 1 minute prior to obtaining)] 64 Pulse Ox 99 96 Oxygen Delivery Method 08/12/25 13:07 08/12/25 13:09 08/12/25 13:15 Temperature Temperature Source Pulse Rate 66 Pulse Rate [Lying] Pulse Rate [Sitting (for 1 minute prior to obtaining)] Pulse Rate [Standing (for 1 minute prior to obtaining)] Respiratory Rate 12 Respiratory Effort Respiratory Depth Respiratory Pattern Blood Pressure 91/54 L 95/49 L 127/68 H Blood Pressure [Lying] Blood Pressure [Sitting (for 1 minute prior to obtaining)] Blood Pressure [Standing (for 1 minute prior to obtaining)] Blood Pressure Mean 65 64 87 Blood Pressure Mean [Lying] Blood Pressure Mean [Sitting (for 1 minute prior to obtaining)] Blood Pressure Mean [Standing (for 1 minute prior to obtaining)] Pulse Ox 97 95 95 Oxygen Delivery Method 08/12/25 13:30 08/12/25 13:45 08/12/25 14:00 Temperature 97.9 F Temperature Source Temporal Pulse Rate 59 L 60 Pulse Rate [Lying] Pulse Rate [Sitting (for 1 minute prior to obtaining)] Pulse Rate [Standing (for 1 minute prior to obtaining)] Respiratory Rate 20 H 12 Respiratory Effort Respiratory Depth Respiratory Pattern Blood Pressure 123/76 H 125/68 H 145/76 H Blood Pressure [Lying] Blood Pressure [Sitting (for 1 minute prior to obtaining)] Blood Pressure [Standing (for 1 minute prior to obtaining)] Blood Pressure Mean 92 87 99 Blood Pressure Mean [Lying] Blood Pressure Mean [Sitting (for 1 minute prior to obtaining)] Blood Pressure Mean [Standing (for 1 minute prior to obtaining)] Pulse Ox 99 97 Oxygen Delivery Method Room Air 08/12/25 14:00 08/12/25 14:15 08/12/25 14:30 Temperature Temperature Source Pulse Rate 60 61 63 Pulse Rate [Lying] Pulse Rate [Sitting (for 1 minute prior to obtaining)] Pulse Rate [Standing (for 1 minute prior to obtaining)] Respiratory Rate 12 12 14 Respiratory Effort Respiratory Depth Respiratory Pattern Blood Pressure 145/76 H 129/69 H 132/72 H Blood Pressure [Lying] Blood Pressure [Sitting (for 1 minute prior to obtaining)] Blood Pressure [Standing (for 1 minute prior to obtaining)] Blood Pressure Mean 98 87 90 Blood Pressure Mean [Lying] Blood Pressure Mean [Sitting (for 1 minute prior to obtaining)] Blood Pressure Mean [Standing (for 1 minute prior to obtaining)] Pulse Ox 98 94 Oxygen Delivery Method 08/12/25 14:45 08/12/25 15:00 08/12/25 15:00 Temperature 98 F Temperature Source Temporal Pulse Rate 68 61 Pulse Rate [Lying] Pulse Rate [Sitting (for 1 minute prior to obtaining)] Pulse Rate [Standing (for 1 minute prior to obtaining)] Respiratory Rate 14 22 H 29 H Respiratory Effort Respiratory Depth Respiratory Pattern Blood Pressure 124/73 H 100/90 H 127/79 H Blood Pressure [Lying] Blood Pressure [Sitting (for 1 minute prior to obtaining)] Blood Pressure [Standing (for 1 minute prior to obtaining)] Blood Pressure Mean 90 93 95 Blood Pressure Mean [Lying] Blood Pressure Mean [Sitting (for 1 minute prior to obtaining)] Blood Pressure Mean [Standing (for 1 minute prior to obtaining)] Pulse Ox 97 97 96 Oxygen Delivery Method Room Air 08/12/25 15:15 Temperature Temperature Source Pulse Rate 68 Pulse Rate [Lying] Pulse Rate [Sitting (for 1 minute prior to obtaining)] Pulse Rate [Standing (for 1 minute prior to obtaining)] Respiratory Rate 30 H Respiratory Effort Respiratory Depth Respiratory Pattern Blood Pressure 137/76 H Blood Pressure [Lying] Blood Pressure [Sitting (for 1 minute prior to obtaining)] Blood Pressure [Standing (for 1 minute prior to obtaining)] Blood Pressure Mean 91 Blood Pressure Mean [Lying] Blood Pressure Mean [Sitting (for 1 minute prior to obtaining)] Blood Pressure Mean [Standing (for 1 minute prior to obtaining)] Pulse Ox 98 Oxygen Delivery Method MDM MDM MDM Narrative Medical decision making narrative: Patient is a 75-year-old male presenting to the emergency department for generalized weakness, shortness of breath and 2 falls likely due to syncope earlier today. Patient was seen and examined. Vitals are stable. Blood pressure is at 101/58 here. Pulse of 61. Respirate of 19, saturating 94% on RA. He is afebrile. He is chronically ill-appearing, nontoxic. Appears clinically dry, fluid bolus was started. Differential includes but is not limited to: Anemia, electrolyte imbalance, ACS, pneumonia, viral illness, cardiac dysrhythmia, less likely PE given patient is on oral anticoagulation and is compliant. CBC with no leukocytosis and chronic anemia of 10.0. Actually improved from his recent labs on 08/07. BMP with slight worsening of his creatinine from 08/07 from 1.79-2.04. Lactic level is elevated at 2.7. EKG shows sinus rhythm with a sinus arrhythmia and first-degree AV block with a IN interval of 354. There are no ischemic changes noted. Does not meet STEMI criteria. EKG appears similar to prior done in November. Troponin elevated at 64, last was drawn in November 2024 and was 26. Downtrended to 57. Fourth troponin pending. Will interrogate pacemaker as well due to concern for possible cardiac dysrhythmia that could have caused the syncope and then fall. Again patient is a very poor historian and is very difficult to determine if he fell and then hit his head and syncopized or vice versa. Viral swab negative. Urinalysis is positive for nitrates and has leukocyte esterase, WBC and 3+ bacteria however is contaminated with epithelial cells. His urine always appears infected with nitrites. Urine culture sent. Very difficult to determine if this is a new urinary tract infection that could be causing his symptoms. I reviewed his cultures from the past, last was done in November and grew Pseudomonas which was susceptible to ciprofloxacin which was given here. Patient's orthostatics were positive, and additional fluid bolus was given. Patient was consented for laceration repair. His tetanus is up-to-date within the last year. Wound was irrigated copiously. 2% lidocaine with epi was used for anesthetic. Nine 3-0 Ethilon sutures were placed in a simple interrupted fashion. Wound came together well. Dressing was applied. Patient was given wound care instructions. CT of the brain shows no evidence of acute intracranial hemorrhage, infarct or significant mass effect. CT cervical spine shows no acute fracture or dislocation. X-rays of the shoulder, elbow and hip were reviewed by myself with no evidence of acute fracture or dislocation. Radiology read with degenerative, no acute findings. Chest x-ray was reviewed by myself, this shows cardiomegaly with no opacity, pneumothorax or widened mediastinum. Radiology read in agreement. Discussed admission with the patient given his frequent falls, generalized weakness, elevated troponin and he is agreeable with the plan. Patient admitted to hospitalist, Dr. Diaz. Clinical impression: Generalized weakness Falls Arm laceration Elevated troponin UTI Elevated lactate History & Record Review Discussion w/independent historian: Patient and Significant other Additional record(s) reviewed:: Prior ED visit and Prior labs Lab Data Attestation: I reviewed the patient's lab results. Labs: Laboratory Results - last 24 hr 08/12/25 08/12/25 08/12/25 10:30 10:53 12:40 WBC 5.2 RBC 3.62 L Hgb 10.0 L Hct 32.9 L MCV 90.9 MCH 27.6 MCHC 30.4 L RDW Std Deviation 68.5 H RDW Coeff of [place]rell 20.3 H Plt Count 80 L MPV 10.5 Immature Gran % (Auto) 0.600 Neut % (Auto) 71.0 H Lymph % (Auto) 16.0 L Dickenson % (Auto) 6.7 Eos % (Auto) 4.4 Baso % (Auto) 1.3 H Absolute Neuts (auto) 3.7 Absolute Lymphs (auto) 0.84 Nucleated RBC % 0 Platelet Estimate MOD DEC Polychromasia 1+ Anisocytosis 1+ PT 17.1 H INR 1.4 Sodium 136 Potassium 4.7 Chloride 100 Carbon Dioxide 22.4 Anion Gap 13 BUN 15 Creatinine 2.04 H Estim Creat Clear Calc 39.85 L Est GFR (MDRD) Non-Af 33 L BUN/Creatinine Ratio 7.5 L Glucose 159 H Lactic Acid 2.7 H* Calcium 8.9 Troponin T High Sens 64 H* D Troponin T Hi Sens 2 Hr 57 H* Urine Color Yellow Urine Clarity Clear Urine pH 7.0 Ur Specific [place] 1.010 Urine Protein 15 H Urine Glucose (UA) Normal Urine Ketones Negative Urine Occult Blood 10 H Urine Nitrite Positive H Urine Bilirubin Negative Urine Urobilinogen Normal Ur Leukocyte Esterase 100 H Urine RBC 0-5 SEEN Urine WBC 25-50 SEEN Ur Squamous Epith Cells 5-10 SEEN Urine Bacteria 3+ Hyaline Casts 0-5 SEEN Urine Mucus 0 SEEN Radiography Chest X-Ray - ED: 2 View, Read by ED Physician and Cardiomegaly X-Ray: Read by ED Physician and No Fracture Diagnostic Testing: Clinical Impression(s) from Imaging Studies Brain CT 08/12/25 11:18 IMPRESSION: CT head: 1. No CT evidence of acute intracranial hemorrhage, transcortical infarct, or significant mass effect. 2. Left parietal scalp hematoma. 3. Chronic microvascular ischemic changes. CT cervical spine: 1. No acute fracture or dislocation in the cervical spine. Reading Location: [facility] Cervical Spine CT 08/12/25 11:18 IMPRESSION: CT head: 1. No CT evidence of acute intracranial hemorrhage, transcortical infarct, or significant mass effect. 2. Left parietal scalp hematoma. 3. Chronic microvascular ischemic changes. CT cervical spine: 1. No acute fracture or dislocation in the cervical spine. Reading Location: [id number] Elbow X-Ray 08/12/25 11:30 IMPRESSION: 1. Degenerative changes of the left shoulder without fracture. 2. Degenerative changes of the right elbow without fracture with tiny right olecranon enthesophyte and probable olecranon bursa. Right elbow soft tissue swelling with questionable tiny effusion. Reading Location: [id number] Hip/Pelvis X-Ray 08/12/25 11:32 IMPRESSION: Mild degenerative changes. No fracture Reading Location: [id number] Shoulder X-Ray 08/12/25 11:36 IMPRESSION: 1. Degenerative changes of the left shoulder without fracture. 2. Degenerative changes of the right elbow without fracture with tiny right olecranon enthesophyte and probable olecranon bursa. Right elbow soft tissue swelling with questionable tiny effusion. Reading Location: [id number] Chest X-Ray 08/12/25 11:40 IMPRESSION: Emphysema. Cardiac enlargement Reading Location: [id number] Discharge Plan Triage Chief Complaint: Fall ED Provider: Sulma Gómez Dx/Rx/DC Orders Prescriptions: No Action atorvastatin 20 MG tablet 20 mg PO QODAY potassium chloride [Klor-Con 10] 10 MEQ tablet extended release 10 meq PO BID allopurinol 100 MG tablet 200 mg PO DAILYCM aspirin 81 MG tablet,chewable 81 mg PO DAILY@0800 hydrochlorothiazide 25 MG tablet 25 mg PO DAILY lisinopril 40 MG tablet 40 mg PO DAILY duloxetine 60 MG capsule 60 mg PO DAILY metoprolol tartrate 100 mg tablet 100 mg PO BID Patient Comments: TAKE 1 TABLET BY MOUTH TWICE DAILY amlodipine 5 mg tablet 5 mg PO DAILY Patient Comments: TAKE 1 TABLET BY MOUTH ONCE DAILY acetaminophen 500 mg Tablet 1,000 mg PO BID PRN (Reason: Pain) tamsulosin 0.4 mg capsule 0.8 mg PO DAILY Patient Comments: TAKE 2 CAPSULES BY MOUTH ONCE DAILY warfarin 5 mg tablet 5 mg PO MOTUWETH Patient Comments: TAKE 1 TABLET BY MOUTH ONCE DAILY magnesium oxide 400 mg magnesium tablet 400 mg PO BID Patient Comments: TAKE 1 TABLET BY MOUTH TWICE DAILY cephalexin 500 mg capsule 500 mg PO Q12H 7 Days Qty: 14 0RF cephalexin 500 mg capsule 500 mg PO Q6 Qty: 40 0RF gabapentin 600 mg tablet 600 mg PO QHS warfarin 2.5 mg tablet 2.5 mg PO SUFRSA clobetasol 0.05 % solution See Rx Instructions TOPICAL .COMPLEX Patient Comments: APPLY TO THE SCALP ONCE DAILY IN THE EVENING FOR 2 WEEKS. RINSE OFF IN THE MORNING. TAKE ONE WEEK OFF BEFORE RESUMING NEEDED FOR FLARES. Rx Instructions: APPLY TO THE SCALP ONCE DAILY IN THE EVENING FOR 2 WEEKS. RINSE OFF IN THE MORNING. TAKE ONE WEEK OFF BEFORE RESUMING NEEDED FOR FLARES. topically; bupropion HCl 150 mg tablet extended release 24 hr 150 mg PO DAILY Otezla 30 mg tablet 30 mg PO DAILY insulin glargine [Lantus Solostar U-100 Insulin] 100 UNITS/ML insulin pen 12 unit subcut QHS 30 Days Qty: 0 0RF Rx Instructions: Hold if glucose less than 130 mg/dl amoxicillin-pot clavulanate 875-125 mg tablet 875 mg PO Q12H Qty: 10 0RF Primary Care Provider: Dee Chawla Referrals: Dee Chawla MD [Primary Care Provider, Internal Medicine] Print Language: Slovenian
[2025-08-12] MEDS: 0.9% Normal Saline (1000mL) 1,000 ML 1000 ML IV ×2 (11:12→14:59)
--- NOTE | 2025-08-12 11:18 | CT_ITS ---
PROCEDURE: SPINE CERVICAL WITHOUT CONTRAS; BRAIN/HEAD WITHOUT CONTRAST 08/12/2025 REASON FOR EXAM: FALL, HIT HEAD; FALL HIT HEAD, ON WARFARIN TECHNIQUE: Procedure Code: CTSPC; CTBR Modality: CT Procedure: SPINE CERVICAL WITHOUT CONTRAS; BRAIN/HEAD WITHOUT CONTRAST Coronal and Sagittal reconstruction series were provided. One or more dose reduction techniques were used (e.g., Automated exposure control, adjustment of the mA and/or kV according to patient size, use of iterative reconstruction technique. RADIATION DOSE SUMMARY: DLP: 1444.37 mGycm COMPARISON: CT head 10/09/2024 FINDINGS: CT HEAD: No acute hemorrhage. No acute transcortical infarct. Chronic left gangliocapsular lacunar infarct. Patchy nonspecific periventricular and subcortical white matter hypodensities likely reflect chronic microvascular ischemic changes. No significant mass effect or brain herniation. Global cerebral volume loss. No hydrocephalus. No extra-axial fluid collection. The basal cisterns are patent. The mastoid air cells are clear. The paranasal sinuses are predominantly clear. Bilateral ocular lens replacements. The calvarium appears intact. Small left parietal scalp hematoma. Atherosclerotic calcification of the carotid siphons and intradural vertebral arteries. CT CERVICAL SPINE: Straightening of the cervical spine. The atlantooccipital and atlantoaxial joints appear normally aligned. The atlas and axis are intact. The remaining cervical vertebral bodies are normal in height. The cervical vertebral bodies are normal in alignment.There is no evidence of focal lytic or sclerotic lesion in the cervical spine. There is no prevertebral soft tissue swelling. Degenerative changes of the cervical spine. No high grade spinal canal stenosis. CT/Spine Cervical without Contras IMPRESSION: CT head: 1. No CT evidence of acute intracranial hemorrhage, transcortical infarct, or s ignificant mass effect. 2. Left parietal scalp hematoma. 3. Chronic microvascular ischemic changes. CT cervical spine: 1. No acute fracture or dislocation in the cervical spine. Reading Location: [id number]
[2025-08-12 11:19] LABS: Anion Gap 13 (5-15); BUN 15 mg/dL (4-19); BUN/Creat Ratio 7.5 RATIO (10-20); Calcium,Total 8.9 mg/dL (7.6-11.0); Carbon Dioxide 22.4 mmol/L (21.0-32.0); Chloride 100 mmol/L (98-108); Estimated Creatinine Clearance 39.85 ml/min (50-250); Glucose 159 mg/dL (70-99); Potassium 4.7 mmol/L (3.3-5.1)
[2025-08-12 11:23] LABS: Anisocytosis 1+; Polychromasia 1+
[2025-08-12 11:26] LABS: Troponin T High Sensitivity 64 ng/L (<=22)
--- NOTE | 2025-08-12 11:30 | RAD_ITS ---
PROCEDURE: ELBOW MIN 3 VIEWS; SHOULDER MIN 2 VIEWS 08/12/2025 REASON FOR EXAM: HIT ELBOW, PAIN; PAIN, FALL TECHNIQUE: Procedure Code: NORMA PITTMAN Modality: DX Procedure: ELBOW MIN 3 VIEWS; SHOULDER MIN 2 VIEWS Laterality: Right elbow, left shoulder COMPARISON: None. FINDINGS: Radiographs of the left shoulder demonstrate degenerative changes without acute fracture or subluxation. Sub clavicular osteophyte. Left-sided cardiac pacemaker. Degenerative changes of the spine. Imaged portions of the left lung are clear. Right elbow: Degenerative changes of the right elbow without acute fracture or subluxation. Tiny olecranon enthesophyte with adjacent soft tissue swelling. Questionable small elbow effusion. Posterior elbow soft tissue swelling. RAD/Elbow min 3 Views IMPRESSION: 1. Degenerative changes of the left shoulder without fracture. 2. Degenerative changes of the right elbow without fracture with tiny right ol ecranon enthesophyte and probable olecranon bursa. Right elbow soft tissue swelling with questionable tiny effusion. Reading Location: [id number]
--- NOTE | 2025-08-12 11:32 | RAD_ITS ---
PROCEDURE: HIP, UNI W/ PELVIS 2-3 VIEWS 08/12/2025 REASON FOR EXAM: FALL, PAIN TECHNIQUE: Procedure Code: RAD Modality: DX Procedure: HIP, UNI W/ PELVIS 2-3 VIEWS Laterality: Left COMPARISON: None FINDINGS: Bones: No fracture Joints: Mild degenerative change Soft tissues: Atherosclerosis Other: No foreign body RAD/HIP, UNI W/ Pelvis 2-3 Views IMPRESSION: Mild degenerative changes. No fracture Reading Location: [id number]
--- NOTE | 2025-08-12 11:36 | RAD_ITS ---
PROCEDURE: ELBOW MIN 3 VIEWS; SHOULDER MIN 2 VIEWS 08/12/2025 REASON FOR EXAM: HIT ELBOW, PAIN; PAIN, FALL TECHNIQUE: Procedure Code: NORMA PITTMAN Modality: DX Procedure: ELBOW MIN 3 VIEWS; SHOULDER MIN 2 VIEWS Laterality: Right elbow, left shoulder COMPARISON: None. FINDINGS: Radiographs of the left shoulder demonstrate degenerative changes without acute fracture or subluxation. Sub clavicular osteophyte. Left-sided cardiac pacemaker. Degenerative changes of the spine. Imaged portions of the left lung are clear. Right elbow: Degenerative changes of the right elbow without acute fracture or subluxation. Tiny olecranon enthesophyte with adjacent soft tissue swelling. Questionable small elbow effusion. Posterior elbow soft tissue swelling. RAD/Shoulder min 2 Views IMPRESSION: 1. Degenerative changes of the left shoulder without fracture. 2. Degenerative changes of the right elbow without fracture with tiny right ol ecranon enthesophyte and probable olecranon bursa. Right elbow soft tissue swelling with questionable tiny effusion. Reading Location: [id number]
--- NOTE | 2025-08-12 11:40 | RAD_ITS ---
PROCEDURE: CHEST PA AND LATERAL 08/12/2025 REASON FOR EXAM: SOB, WEAK TECHNIQUE: Procedure Code: RADCXR Modality: DX Procedure: CHEST PA AND LATERAL COMPARISON: October 09, 2024 FINDINGS: Hardware: EKG leads. Heart: Heart size is mildly enlarged. Mediastinum: There are atherosclerotic calcifications of the thoracic aorta. Lungs: Upper lobe emphysema. No consolidation. Bones: Degenerative changes are identified within the thoracic spine. RAD/Chest PA and Lateral IMPRESSION: Emphysema. Cardiac enlargement Reading Location: [id number]
[2025-08-12 12:56] LABS: Mucous, Urine 0 SEEN /hpf (<or=2+)
[2025-08-12 13:06] LABS: Color, Urine Yellow (Yellow); Glucose, Dipstick Normal (Normal); Ketone-Dipstick Negative (Negative); Leukocyte Esterase-Dipstick 100 /ul (Negative); Nitrite-Dipstick Positive (Negative); Occult Blood-Urine 10 /ul (Negative); Protein-Dipstick 15 mg/dl (Negative); Specific Gravity, Urine 1.010 (1.002-1.030); Urine Bilirubin Dipstick Negative (Negative)
[2025-08-12 13:25] LABS: Red Blood Cells-Urine 0-5 SEEN /hpf (0-5); Squamous Epithelial Cells - UA 5-10 SEEN /hpf (0-5)
[2025-08-12 13:34] LABS: Troponin T High Sens 2 HR 57 ng/L (<=22)
--- NOTE | 2025-08-12 13:37 | ED.RN ---
ACKNOWLEDGES CRITICAL VALUE OF TROP 57 CALLED UP BY LAB
[2025-08-12] MEDS: Lidocaine 2% /Epi 1:100 (20ml) 20 ML VIAL 10 ML INFILT (14:15)
[2025-08-12 14:58] LABS: Reflex Lactate? Y
[2025-08-12 16:06] LABS: Troponin T High Sens 4 HR 54 ng/L (<=22)
--- NOTE | 2025-08-12 16:08 | PCM.HP.STD ---
[facility] - [facility] General Date of Service: 08/12/25 Chief Complaint: weakness and falls. [facility] Narrative YAZAN LOPEZ, is a 75 M who presents with progressive weakness and falls. This is a 5-year-old male with history of cirrhosis, psoriasis, atrial fibrillation who presents with increased weakness since and has been falling. He fell twice today. He developed a skin tear on his right elbow which required sutures in the emergency room. He underwent head CT, cervical spine CT, elbow x-ray, hip x-ray, shoulder x-ray and chest x-ray that were unremarkable. Though the head CT did show a left parietal scalp hematoma. Patient was seen here on the and was diagnosed with a urinary tract infection and discharged with cephalexin. But he presented here and that urinalysis was more abnormal than it was at that time and he did receive ciprofloxacin. No urine culture was performed from 07 August. Patient was noted to be hypotensive trigger when he stands. Currently laying the is without any hypotension. Otherwise feels fine at this time. He has had some chills. [ ] [facility] Medical History Injury of head and neck Cancer Hepatitis Former smoker CPAP (continuous positive airway pressure) dependence Sleep apnea Atrial fibrillation ICD (implantable cardioverter-defibrillator) in place Pacemaker Hypertension Acute calculous cholecystitis Hyperlipemia Diabetic neuropathy HTN (hypertension) Diabetes Home Medications ?Medication ?Instructions ?Recorded ?Last Taken ?Type allopurinol 100 mg tablet 200 mg PO DAILYCM GOUT 05/12/14 10/09/24 History aspirin 81 mg chewable tablet 81 mg PO DAILY@0800 HEALTH 05/12/14 10/08/24 History atorvastatin 20 mg tablet 20 mg PO QODAY CHOLESTEROL 05/12/14 10/07/24 History duloxetine 60 mg capsule,delayed 60 mg PO DAILY MOOD 05/12/14 10/09/24 History release hydrochlorothiazide 25 mg tablet 25 mg PO DAILY BP 05/12/14 10/09/24 History Held on 10/13/24. Instructions: Hold for 1 week and restart at lower dose 12.5 mg daily. lisinopril 40 mg tablet 40 mg PO DAILY BP 05/12/14 10/09/24 History Held on 10/13/24. Instructions: Hold for 1 week and follow with BMP with PCP potassium chloride 10 mEq 10 meq PO BID SUPPLEMENT 05/12/14 10/09/24 History tablet,extended release (Klor-Con) acetaminophen 500 mg tablet 1,000 mg PO BID PRN Pain 06/09/21 06/09/21 07:00 History amlodipine 5 mg tablet 5 mg PO DAILY BP 06/09/21 10/09/24 History magnesium oxide 400 mg PO BID SUPPLEMENT 06/09/21 10/09/24 History metoprolol tartrate 100 mg tablet 100 mg PO BID HEART 06/09/21 10/09/24 History tamsulosin 0.4 mg capsule 0.8 mg PO DAILY PROSTATE 06/09/21 10/08/24 History warfarin 5 mg tablet 5 mg PO MOTUWETH BLOODTHINNER 06/09/21 10/09/24 History apremilast 30 mg tablet (Otezla) 30 mg PO DAILY ARTHRITIS 10/09/24 10/08/24 History bupropion HCl 150 mg 24 hr tablet, 150 mg PO DAILY MOOD 10/09/24 10/09/24 History extended release clobetasol 0.05 % scalp solution See Rx Instructions topical 10/09/24 10/08/24 History .COMPLEX SCALP gabapentin 600 mg tablet 600 mg PO QHS PAIN 10/09/24 10/08/24 History warfarin 2.5 mg tablet 2.5 mg PO SUFRSA BLOOD THNNER 10/09/24 10/03/24 History insulin glargine 100 unit/mL (3 12 unit (0.12 mL) subcut QHS DM 30 10/13/24 06/07/21 Rx mL) subcutaneous pen (t days #0 mL Solostar U-100 Insulin) cephalexin 500 mg capsule 500 mg PO Q12H 7 days #14 caps 11/10/24 Unknown Rx amoxicillin 875 mg-potassium 875 mg PO Q12H #10 TABLETS 05/26/25 Unknown Rx clavulanate 125 mg tablet cephalexin 500 mg capsule 500 mg PO Q6 #40 CAPSULES 08/07/25 Unknown Rx Allergy/AdvReac Type Severity Reaction Status Date / Time No Known Allergies Allergy Verified 08/12/25 10:20 Surgical History Status post laparoscopic cholecystectomy (~06/2021) Social History household members: spouse housing: house Smoking Status: Former smoker ROS ROS Narrative Does get lower extremity edema. Rhinitis. All review of systems were negative except as mentioned above in the history of present illness and the other review of systems. Vital Signs Vital Signs Vital Signs: 08/12/25 10:20 08/12/25 10:22 08/12/25 10:30 Temperature 36.2 C L 36.2 C L Temperature Source Temporal Oral Pulse Rate 61 61 Pulse Rate [Lying] Pulse Rate [Sitting (for 1 minute prior to obtaining)] Pulse Rate [Standing (for 1 minute prior to obtaining)] Respiratory Rate 19 H 19 H Respiratory Effort Normal Non-Labored Respiratory Depth Normal Respiratory Pattern Normal Blood Pressure 101/58 L 101/58 L Blood Pressure [Lying] Blood Pressure [Sitting (for 1 minute prior to obtaining)] Blood Pressure [Standing (for 1 minute prior to obtaining)] Blood Pressure Mean 72 72 Blood Pressure Mean [Lying] Blood Pressure Mean [Sitting (for 1 minute prior to obtaining)] Blood Pressure Mean [Standing (for 1 minute prior to obtaining)] Pulse Ox 94 94 Oxygen Delivery Method Room Air Room Air 08/12/25 11:15 08/12/25 11:22 08/12/25 11:30 Temperature 36.6 C Temperature Source Oral Pulse Rate 71 71 Pulse Rate [Lying] Pulse Rate [Sitting (for 1 minute prior to obtaining)] Pulse Rate [Standing (for 1 minute prior to obtaining)] Respiratory Rate 25 H 25 H Respiratory Effort Respiratory Depth Respiratory Pattern Blood Pressure 118/62 118/62 106/89 H Blood Pressure [Lying] Blood Pressure [Sitting (for 1 minute prior to obtaining)] Blood Pressure [Standing (for 1 minute prior to obtaining)] Blood Pressure Mean 79 80 96 Blood Pressure Mean [Lying] Blood Pressure Mean [Sitting (for 1 minute prior to obtaining)] Blood Pressure Mean [Standing (for 1 minute prior to obtaining)] Pulse Ox 98 98 Oxygen Delivery Method Room Air 08/12/25 11:43 08/12/25 11:45 08/12/25 12:00 Temperature 36.6 C Temperature Source Oral Pulse Rate 67 60 68 Pulse Rate [Lying] Pulse Rate [Sitting (for 1 minute prior to obtaining)] Pulse Rate [Standing (for 1 minute prior to obtaining)] Respiratory Rate 13 13 18 Respiratory Effort Respiratory Depth Respiratory Pattern Blood Pressure 120/67 129/68 H Blood Pressure [Lying] Blood Pressure [Sitting (for 1 minute prior to obtaining)] Blood Pressure [Standing (for 1 minute prior to obtaining)] Blood Pressure Mean 84 88 Blood Pressure Mean [Lying] Blood Pressure Mean [Sitting (for 1 minute prior to obtaining)] Blood Pressure Mean [Standing (for 1 minute prior to obtaining)] Pulse Ox 96 95 98 Oxygen Delivery Method Room Air 08/12/25 12:00 08/12/25 12:15 08/12/25 12:30 Temperature Temperature Source Pulse Rate 68 Pulse Rate [Lying] Pulse Rate [Sitting (for 1 minute prior to obtaining)] Pulse Rate [Standing (for 1 minute prior to obtaining)] Respiratory Rate 14 Respiratory Effort Respiratory Depth Respiratory Pattern Blood Pressure 129/68 H 133/70 H 116/90 H Blood Pressure [Lying] Blood Pressure [Sitting (for 1 minute prior to obtaining)] Blood Pressure [Standing (for 1 minute prior to obtaining)] Blood Pressure Mean 86 88 99 Blood Pressure Mean [Lying] Blood Pressure Mean [Sitting (for 1 minute prior to obtaining)] Blood Pressure Mean [Standing (for 1 minute prior to obtaining)] Pulse Ox 96 97 Oxygen Delivery Method 08/12/25 12:37 08/12/25 12:45 08/12/25 13:00 Temperature 36.6 C Temperature Source Temporal Pulse Rate 60 62 Pulse Rate [Lying] Pulse Rate [Sitting (for 1 minute prior to obtaining)] Pulse Rate [Standing (for 1 minute prior to obtaining)] Respiratory Rate 14 14 Respiratory Effort Respiratory Depth Respiratory Pattern Blood Pressure 116/61 123/64 H Blood Pressure [Lying] Blood Pressure [Sitting (for 1 minute prior to obtaining)] Blood Pressure [Standing (for 1 minute prior to obtaining)] Blood Pressure Mean 79 83 Blood Pressure Mean [Lying] Blood Pressure Mean [Sitting (for 1 minute prior to obtaining)] Blood Pressure Mean [Standing (for 1 minute prior to obtaining)] Pulse Ox 95 97 Oxygen Delivery Method Room Air 08/12/25 13:00 08/12/25 13:05 08/12/25 13:06 Temperature Temperature Source Pulse Rate 61 68 Pulse Rate [Lying] 62 Pulse Rate [Sitting (for 1 minute prior to obtaining)] 61 Pulse Rate [Standing (for 1 minute prior to obtaining)] 69 Respiratory Rate 12 11 L Respiratory Effort Respiratory Depth Respiratory Pattern Blood Pressure 123/64 H 116/69 Blood Pressure [Lying] 116/69 Blood Pressure [Sitting (for 1 minute prior to obtaining)] 91/54 L Blood Pressure [Standing (for 1 minute prior to obtaining)] 95/49 L Blood Pressure Mean 80 82 Blood Pressure Mean [Lying] 84 Blood Pressure Mean [Sitting (for 1 minute prior to obtaining)] 66 Blood Pressure Mean [Standing (for 1 minute prior to obtaining)] 64 Pulse Ox 99 96 Oxygen Delivery Method 08/12/25 13:07 08/12/25 13:09 08/12/25 13:15 Temperature Temperature Source Pulse Rate 66 Pulse Rate [Lying] Pulse Rate [Sitting (for 1 minute prior to obtaining)] Pulse Rate [Standing (for 1 minute prior to obtaining)] Respiratory Rate 12 Respiratory Effort Respiratory Depth Respiratory Pattern Blood Pressure 91/54 L 95/49 L 127/68 H Blood Pressure [Lying] Blood Pressure [Sitting (for 1 minute prior to obtaining)] Blood Pressure [Standing (for 1 minute prior to obtaining)] Blood Pressure Mean 65 64 87 Blood Pressure Mean [Lying] Blood Pressure Mean [Sitting (for 1 minute prior to obtaining)] Blood Pressure Mean [Standing (for 1 minute prior to obtaining)] Pulse Ox 97 95 95 Oxygen Delivery Method 08/12/25 13:30 08/12/25 13:45 08/12/25 14:00 Temperature 36.6 C Temperature Source Temporal Pulse Rate 59 L 60 Pulse Rate [Lying] Pulse Rate [Sitting (for 1 minute prior to obtaining)] Pulse Rate [Standing (for 1 minute prior to obtaining)] Respiratory Rate 20 H 12 Respiratory Effort Respiratory Depth Respiratory Pattern Blood Pressure 123/76 H 125/68 H 145/76 H Blood Pressure [Lying] Blood Pressure [Sitting (for 1 minute prior to obtaining)] Blood Pressure [Standing (for 1 minute prior to obtaining)] Blood Pressure Mean 92 87 99 Blood Pressure Mean [Lying] Blood Pressure Mean [Sitting (for 1 minute prior to obtaining)] Blood Pressure Mean [Standing (for 1 minute prior to obtaining)] Pulse Ox 99 97 Oxygen Delivery Method Room Air 08/12/25 14:00 08/12/25 14:15 08/12/25 14:30 Temperature Temperature Source Pulse Rate 60 61 63 Pulse Rate [Lying] Pulse Rate [Sitting (for 1 minute prior to obtaining)] Pulse Rate [Standing (for 1 minute prior to obtaining)] Respiratory Rate 12 12 14 Respiratory Effort Respiratory Depth Respiratory Pattern Blood Pressure 145/76 H 129/69 H 132/72 H Blood Pressure [Lying] Blood Pressure [Sitting (for 1 minute prior to obtaining)] Blood Pressure [Standing (for 1 minute prior to obtaining)] Blood Pressure Mean 98 87 90 Blood Pressure Mean [Lying] Blood Pressure Mean [Sitting (for 1 minute prior to obtaining)] Blood Pressure Mean [Standing (for 1 minute prior to obtaining)] Pulse Ox 98 94 Oxygen Delivery Method 08/12/25 14:45 08/12/25 15:00 08/12/25 15:00 Temperature 36.6 C Temperature Source Temporal Pulse Rate 68 61 Pulse Rate [Lying] Pulse Rate [Sitting (for 1 minute prior to obtaining)] Pulse Rate [Standing (for 1 minute prior to obtaining)] Respiratory Rate 14 22 H 29 H Respiratory Effort Respiratory Depth Respiratory Pattern Blood Pressure 124/73 H 100/90 H 127/79 H Blood Pressure [Lying] Blood Pressure [Sitting (for 1 minute prior to obtaining)] Blood Pressure [Standing (for 1 minute prior to obtaining)] Blood Pressure Mean 90 93 95 Blood Pressure Mean [Lying] Blood Pressure Mean [Sitting (for 1 minute prior to obtaining)] Blood Pressure Mean [Standing (for 1 minute prior to obtaining)] Pulse Ox 97 97 96 Oxygen Delivery Method Room Air 08/12/25 15:15 Temperature Temperature Source Pulse Rate 68 Pulse Rate [Lying] Pulse Rate [Sitting (for 1 minute prior to obtaining)] Pulse Rate [Standing (for 1 minute prior to obtaining)] Respiratory Rate 30 H Respiratory Effort Respiratory Depth Respiratory Pattern Blood Pressure 137/76 H Blood Pressure [Lying] Blood Pressure [Sitting (for 1 minute prior to obtaining)] Blood Pressure [Standing (for 1 minute prior to obtaining)] Blood Pressure Mean 91 Blood Pressure Mean [Lying] Blood Pressure Mean [Sitting (for 1 minute prior to obtaining)] Blood Pressure Mean [Standing (for 1 minute prior to obtaining)] Pulse Ox 98 Oxygen Delivery Method Weight Weight: 119.1 kg Body Mass Index (BMI) 38.7 Physical Exam Const alert and no apparent distress HEENT normocephalic HEENT Narrative: Mucous membranes moist Resp normal respiratory effort, no retractions, no use of accessory muscles and clear to auscultation bilaterally Cardio regular rate, regular rhythm, S1 normal heart sound and S2 normal heart sound GI normal to inspection, nondistended, normoactive bowel sounds, soft to palpation, non-tender, non-distended and hepatosplenomegaly Extremity Extremity Narrative: Trace lower extremity edema. Sutures in right elbow. Neuro Sensorium / Orientation: awake, alert and oriented to place Psych affect normal Results Lab / Micro Data Attestation: I reviewed the patient's lab results. 08/12/25 10:30 08/12/25 10:30 Labs: Laboratory Results - last 24 hr 08/12/25 10:30: WBC 5.2, RBC 3.62 L, Hgb 10.0 L, Hct 32.9 L, MCV 90.9, MCH 27.6, MCHC 30.4 L, RDW Std Deviation 68.5 H, RDW Coeff of [place]rell 20.3 H, Plt Count 80 L, MPV 10.5, Immature Gran % (Auto) 0.600, Neut % (Auto) 71.0 H, Lymph % (Auto) 16.0 L, Granite % (Auto) 6.7, Eos % (Auto) 4.4, Baso % (Auto) 1.3 H, Absolute Neuts (auto) 3.7, Absolute Lymphs (auto) 0.84, Nucleated RBC % 0, Platelet Estimate MOD DEC, Polychromasia 1+, Anisocytosis 1+, PT 17.1 H, INR 1.4, Sodium 136, Potassium 4.7, Chloride 100, Carbon Dioxide 22.4, Anion Gap 13, BUN 15, Creatinine 2.04 H, Estim Creat Clear Calc 39.85 L, Est GFR (MDRD) Non-Af 33 L, BUN/Creatinine Ratio 7.5 L, Glucose 159 H, Calcium 8.9, Troponin T High Sens 64 H* D 08/12/25 10:53: Lactic Acid 2.7 H* 08/12/25 12:40: Troponin T Hi Sens 2 Hr 57 H*, Urine Color Yellow, Urine Clarity Clear, Urine pH 7.0, Ur Specific [place] 1.010, Urine Protein 15 H, Urine Glucose (UA) Normal, Urine Ketones Negative, Urine Occult Blood 10 H, Urine Nitrite Positive H, Urine Bilirubin Negative, Urine Urobilinogen Normal, Ur Leukocyte Esterase 100 H, Urine RBC 0-5 SEEN, Urine WBC 25-50 SEEN, Ur Squamous Epith Cells 5-10 SEEN, Urine Bacteria 3+, Hyaline Casts 0-5 SEEN, Urine Mucus 0 SEEN 08/12/25 14:56: Troponin T Hi Sens 4Hr 54 H* 08/12/25 15:25: Lactic Acid 1.7 Micro: Microbiology 08/12/25 10:53 Mucosa - Nose SARS-CoV-2, Influenza & RSV (PCR) - Final EKG Initial EKG: Attestation: I personally reviewed and interpreted this EKG as follows: Prior EKG tracings: available for review EKG Rhythm Intrepretation: Atrial Fibrillation Imaging Radiology Impression Brain CT 08/12/25 11:18 IMPRESSION: CT head: 1. No CT evidence of acute intracranial hemorrhage, transcortical infarct, or significant mass effect. 2. Left parietal scalp hematoma. 3. Chronic microvascular ischemic changes. CT cervical spine: 1. No acute fracture or dislocation in the cervical spine. Reading Location: [facility] Cervical Spine CT 08/12/25 11:18 IMPRESSION: CT head: 1. No CT evidence of acute intracranial hemorrhage, transcortical infarct, or significant mass effect. 2. Left parietal scalp hematoma. 3. Chronic microvascular ischemic changes. CT cervical spine: 1. No acute fracture or dislocation in the cervical spine. Reading Location: [facility] Elbow X-Ray 08/12/25 11:30 IMPRESSION: 1. Degenerative changes of the left shoulder without fracture. 2. Degenerative changes of the right elbow without fracture with tiny right olecranon enthesophyte and probable olecranon bursa. Right elbow soft tissue swelling with questionable tiny effusion. Reading Location: [id number] Hip/Pelvis X-Ray 08/12/25 11:32 IMPRESSION: Mild degenerative changes. No fracture Reading Location: [id number] Shoulder X-Ray 08/12/25 11:36 IMPRESSION: 1. Degenerative changes of the left shoulder without fracture. 2. Degenerative changes of the right elbow without fracture with tiny right olecranon enthesophyte and probable olecranon bursa. Right elbow soft tissue swelling with questionable tiny effusion. Reading Location: [id number] Chest X-Ray 08/12/25 11:40 IMPRESSION: Emphysema. Cardiac enlargement Reading Location: [id number] Assessment & Plan Assessment/Plan (1) Acute UTI: PLAN: Urinalysis more abnormal this time. Patient was discharged with cephalexin. Back in November she had Pseudomonas. Patient did receive ciprofloxacin in the emergency room but we will start him on pip-tazo. Await blood and urine cultures. Patient from previous ultrasound did have a calculus of the distal left ureter. Will check an ultrasound. If still with the stone, may be consideration at some point to have urology evaluate him to see if this is an ongoing issue (2) AMOL (acute kidney injury): PLAN: Likely secondary to dehydration. Will give patient additional IV fluids. Hold off on his diuretics as well as lisinopril at this time. No need for nephrology at this point in time. No need for renal replacement therapy at this time. (3) Thrombocytopenia: PLAN: Patient with known cirrhosis. Will monitor for now. Patient did have bleeding from his in his scalp as well as his elbow. Patient is on warfarin though his INR is 1.4. (4) Debility: PLAN: Secondary to UTI and dehydration. PT OT evaluate and treat. Case management to assist on disposition. (5) Elevated troponin I level: PLAN: Suspect more demand ischemia and partially skewed given the AMOL Will check an echocardiogram. If no new abnormalities, would not do any additional workup. PLAN: Plan Psoriasis: Continue with Otezla BPH: Continue tamsulosin Hypertension: Patient was hypotensive at home. Will continue with amlodipine with hold parameters but hold off on the a.m. lisinopril and diuretics for now. Will also decrease his metoprolol to tartrate from 100 twice daily to 50 twice daily. Atrial fibrillation: On warfarin but INR subtherapeutic 1.4 though caution with that given the thrombocytopenia. And as well as continue with the metoprolol. Cirrhosis: Complicates care and recovery. Follow-up with gastroenterology as outpatient. VTE prophylaxis: Continue with warfarin for now. SCDs. CODE STATUS: Addressed with the patient. Patient wishes to be full code Case discussed with the patient's at bedside. Charges/Coding Visit Charges Inpatient E&M: 62028 Init Hosp L3
--- NOTE | 2025-08-12 16:09 | ECHOCS_ITS ---
Reason For Study Reason For Study: ELEVATED TROPS Procedure This was a 2D Doppler, Color Flow transthoracic echocardiogram. The study was technically difficult. Contrast injection was performed. Exam performed portable in patient room. Left Ventricle Normal LV size. The left ventricular ejection fraction is 55 %. No regional wall motion abnormalities noted. Right Ventricle Normal RV size. ICD or pacer leads identified within the right ventricle. Normal systolic function. Atria The left atrium is mildly enlarged. The right atrium is mildly enlarged. Mitral Valve Normal mitral valve. Tricuspid Valve Normal tricuspid valve. Moderate (2+) tricuspid valve insufficiency. Pulmonary artery systolic pressure is 51 mmHg. Aortic Valve Trisinus/trileaflet aortic valve. Pulmonic Valve Normal pulmonic valve. Great Vessels Mildly dilated aortic root. The pulmonary artery is normal size. Inferior vena cava collapse with respiration. Pericardium/Pleural No pericardial effusion. Medication Diluted definity 1ml given slow IV push to enhance endocardial definition. MMode/2D Measurements & Calculations LVIDd: 5.0 cm IVSd: 1.2 cm Ao root diam: 3.8 cm LVIDs: 3.5 cm LVPWd: 1.1 cm FS: 31.2 % LAV(MOD-bp): 52.6 ml LVAd ap4: 32.4 cm2 SV(MOD-sp4): 60.6 ml LAV(MOD-bp) Indexed: 22.7 ml/m2 LVLd ap4: 8.1 cm SI(MOD-sp4): 26.2 ml/m2 LAV(MOD-sp2): 36.3 ml EDV(MOD-sp4): 106.8 ml LAV(MOD-sp4): 70.9 ml EDV(sp4-el): 109.8 ml LVAs ap4: 20.5 cm2 LVLs ap4: 7.7 cm ESV(MOD-sp4): 46.2 ml ESV(sp4-el): 46.2 ml EF(MOD-sp4): 56.8 % EF(sp4-el): 57.9 % SV(sp4-el): 63.5 ml LA A4 area: 22.5 cm2 LA dimension(2D): 3.8 cm RA A4 area: 23.9 cm2 Doppler Measurements & Calculations MV E max devin: 97.7 cm/sec Ao V2 max: 115.3 cm/sec LV V1 max: 101.0 cm/sec Ao max P.3 mmHg LV V1 max P.1 mmHg Ao V2 mean: 79.4 cm/sec LV V1 mean P.4 mmHg Ao mean P.9 mmHg LV V1 mean: 72.1 cm/sec Ao V2 VTI: 22.4 cm LV V1 VTI: 18.1 cm AV (velocity ratio): 0.81 PA V2 max: 95.7 cm/sec TR max devin: 348.0 cm/sec PA V2 mean: 66.7 cm/sec TR max P.4 mmHg ECHO/Echo Complete W/ Contrast Interpretation Summary The left ventricular ejection fraction is 55 %. Normal LV size. Moderate (2+) tricuspid valve insufficiency. ICD or pacer leads identified within the right ventricle. Contrast injection was performed. Ordering Physician: Tiago Daiz Referring Physician: RANDI ASHLEY Performed By: Joann Wyman RCS
[2025-08-12] MEDS: 0.9% Normal Saline (1000mL) 1,000 ML 150 ML IV (17:50)
[2025-08-12] MEDS: Insulin Glargine-YFGN 100 UNIT/ML Pen 12 UNIT SC (21:36)
[2025-08-12] MEDS: APIXABAN 2.5 MG TABLET (WCH) PO (21:40)
[2025-08-12] MEDS: Magnesium Chloride 64 MG Delay Rel.Tablet 128 MG PO (21:41)
[2025-08-12] MEDS: Piperacil/Tazobactam 3.375 GM in 0.9% Normal Saline (50mL MB+) 50 ML IV (21:41)
[2025-08-13 01:00] VITALS: BP 133/66; PULSE 75; RESP 16; TEMP 36.7; O2SAT 91
[2025-08-13 04:52] LABS: Hematocrit 28.9 % (40-54); Hemoglobin 8.9 g/dL (13.0-16.5); Immature Granulocytes Count 0.020 X10^3/uL (0.0-0.0); Mean Corp Hgb Conc 30.8 g/dL (32-36); Mean Corpuscular Volume 89.2 fL (80-94); Mean Platelet Vol. 10.5 fl (6.2-12.0); NRBC Flagged by Analyzer 0 % (0-5); POSITIVE COUNT YES; POSITIVE DIFFERENTIAL YES; POSITIVE MORPHOLOGY YES; Platelet Count 65 K/mm3 (150-450); RBC Distribution Width CV 20.0 % (11.6-14.6); RBC Distribution Width SD 65.9 fl (35.1-43.9); Red Blood Count 3.24 M/mm3 (4.6-6.2); White Blood Count 4.7 K/mm3 (4.4-11.0)
[2025-08-13 04:59] LABS: Prothrombin Time (Protime)PT. 17.1 SECONDS (11.7-14.9)
[2025-08-13 05:00] VITALS: BP 135/67; PULSE 82; RESP 16; TEMP 36.7; O2SAT 92
[2025-08-13 05:06] LABS: Differential Indicated SCAN CRITERIA MET
[2025-08-13 05:17] LABS: Anion Gap 11 (5-15); BUN 14 mg/dL (4-19); BUN/Creat Ratio 8.2 RATIO (10-20); Calcium,Total 8.2 mg/dL (7.6-11.0); Carbon Dioxide 21.3 mmol/L (21.0-32.0); Chloride 105 mmol/L (98-108); Estimated Creatinine Clearance 47.35 ml/min (50-250); Glucose 148 mg/dL (70-99); Potassium 4.4 mmol/L (3.3-5.1)
[2025-08-13 05:21] LABS: Anisocytosis 1+
[2025-08-13] MEDS: Piperacil/Tazobactam 3.375 GM in 0.9% Normal Saline (50mL MB+) 50 ML IV ×3 (06:45→23:02)
[2025-08-13] MEDS: APIXABAN 2.5 MG TABLET (WCH) PO ×2 (08:27→23:11)
[2025-08-13 08:28] VITALS: PULSE 79
[2025-08-13] MEDS: Magnesium Chloride 64 MG Delay Rel.Tablet 128 MG PO ×2 (08:28→23:12)
[2025-08-13] MEDS: buPROPion (XL) 150 MG TABLET.XL PO (08:29)
--- NOTE | 2025-08-13 10:28 | PN.HOSP_ITS ---
Reason for Visit Chief Complaint: weakness and falls. Objective Data Objective Data Vital Signs: Vital Signs Temp Pulse Resp BP Pulse Ox O2 Del Method 98.1 F 79 16 135/67 H 92 Room Air 08/13/25 05:00 08/13/25 08:28 08/13/25 05:00 08/13/25 05:00 08/13/25 05:00 08/13/25 05:00 Oxygen Delivery Method Room Air Weight: 120.8 kg Body Mass Index (BMI) 39.3 Intake & Output: Intake and Output for Last 24 Hours 08/11/25 08/12/25 08/13/25 23:59 23:59 23:59 Intake Total 2440 / 2560 1270 / 1270 Balance 2440 / 2560 1270 / 1270 Lab / Micro Data 08/13/25 04:34 08/13/25 04:34 Labs: Laboratory Results - last 24 hr 08/12/25 10:30: WBC 5.2, RBC 3.62 L, Hgb 10.0 L, Hct 32.9 L, MCV 90.9, MCH 27.6, MCHC 30.4 L, RDW Std Deviation 68.5 H, RDW Coeff of [place] 20.3 H, Plt Count 80 L, MPV 10.5, Immature Gran % (Auto) 0.600, Neut % (Auto) 71.0 H, Lymph % (Auto) 16.0 L, [place] % (Auto) 6.7, Eos % (Auto) 4.4, Baso % (Auto) 1.3 H, Absolute Neuts (auto) 3.7, Absolute Lymphs (auto) 0.84, Nucleated RBC % 0, Platelet Estimate MOD DEC, Polychromasia 1+, Anisocytosis 1+, PT 17.1 H, INR 1.4, Sodium 136, Potassium 4.7, Chloride 100, Carbon Dioxide 22.4, Anion Gap 13, BUN 15, C reatinine 2.04 H, Estim Creat Clear Calc 39.85 L, Est GFR (MDRD) Non-Af 33 L, B UN/Creatinine Ratio 7.5 L, Glucose 159 H, Calcium 8.9, Troponin T High Sens 64 H* D 08/12/25 10:53: Lactic Acid 2.7 H* 08/12/25 12:40: Troponin T Hi Sens 2 Hr 57 H*, Urine Color Yellow, Urine Clarity Clear, Urine pH 7.0, Ur Specific [place] 1.010, Urine Protein 15 H, Urine Glucose (UA) Normal, Urine Ketones Negative, Urine Occult Blood 10 H, Urine Nitrite Positive H, Urine Bilirubin Negative, Urine Urobilinogen Normal, Ur Leukocyte Esterase 100 H, Urine RBC 0-5 SEEN, Urine WBC 25-50 SEEN, Ur Squamous Epith Cells 5-10 SEEN, Urine Bacteria 3+, Hyaline Casts 0-5 SEEN, Urine Mucus 0 SEEN 08/12/25 14:56: Troponin T Hi Sens 4Hr 54 H* 08/12/25 15:25: Lactic Acid 1.7 08/12/25 17:41: POC Glucose 125 H 08/12/25 21:28: POC Glucose 187 H 08/13/25 04:34: WBC 4.7, RBC 3.24 L, Hgb 8.9 L, Hct 28.9 L, MCV 89.2, MCH 27.5, MCHC 30.8 L, RDW Std Deviation 65.9 H, RDW Coeff of [place] 20.0 H, Plt Count 65 L, MPV 10.5, Immature Gran % (Auto) 0.400, Neut % (Auto) 79.1 H, Lymph % (Auto) 10.4 L, [place] % (Auto) 5.7, Eos % (Auto) 3.6, Baso % (Auto) 0.8, Absolute Neuts (auto) 3.7, Absolute Lymphs (auto) 0.49 L, Nucleated RBC % 0, Platelet Estimate MOD DEC, Anisocytosis 1+, PT 17.1 H, INR 1.4, Sodium 137, Potassium 4.4, Chloride 105, Carbon Dioxide 21.3, Anion Gap 11, BUN 14, Creatinine 1.73 H, E stim Creat Clear Calc 47.35 L, Est GFR (MDRD) Non-Af 41 L, BUN/Creatinine Ratio 8.2 L, Glucose 148 H, Hemoglobin A1c 5.6, Calcium 8.2 08/13/25 07:05: POC Glucose 131 H Micro: Microbiology 08/12/25 10:53 Mucosa - Nose SARS-CoV-2, Influenza & RSV (PCR) - Final Radiography Diagnostic Testing: Radiology Impression Brain CT 08/12/25 11:18 IMPRESSION: CT head: 1. No CT evidence of acute intracranial hemorrhage, transcortical infarct, or significant mass effect. 2. Left parietal scalp hematoma. 3. Chronic microvascular ischemic changes. CT cervical spine: 1. No acute fracture or dislocation in the cervical spine. Reading Location: [facility] Cervical Spine CT 08/12/25 11:18 IMPRESSION: CT head: 1. No CT evidence of acute intracranial hemorrhage, transcortical infarct, or significant mass effect. 2. Left parietal scalp hematoma. 3. Chronic microvascular ischemic changes. CT cervical spine: 1. No acute fracture or dislocation in the cervical spine. Reading Location: [facility] Elbow X-Ray 08/12/25 11:30 IMPRESSION: 1. Degenerative changes of the left shoulder without fracture. 2. Degenerative changes of the right elbow without fracture with tiny right olecranon enthesophyte and probable olecranon bursa. Right elbow soft tissue swelling with questionable tiny effusion. Reading Location: [facility] Hip/Pelvis X-Ray 08/12/25 11:32 IMPRESSION: Mild degenerative changes. No fracture Reading Location: [facility] Shoulder X-Ray 08/12/25 11:36 IMPRESSION: 1. Degenerative changes of the left shoulder without fracture. 2. Degenerative changes of the right elbow without fracture with tiny right olecranon enthesophyte and probable olecranon bursa. Right elbow soft tissue swelling with questionable tiny effusion. Reading Location: [facility] Chest X-Ray 08/12/25 11:40 IMPRESSION: Emphysema. Cardiac enlargement Reading Location: [facility] Physical Exam Narrative GENERAL: cooperative HEENT: Atraumatic; normocephalic EYES; Anicteric, Normal Conjunctiva NECK; supple, normal thyroid, RESPIRATORY: Diminished to auscultation CARDIOVASCULAR: Regular S1 S2, GI: soft, normoactive bowel sounds, : No Renal angle tenderness; EXTREMITIES: Trace bipedal edema, no clubbing, MUSCULOSKELETAL: no muscle wasting NEURO: Awake; no lateralizing signs. SKIN: No Rash PSYCH; Flat affect Assessment & Plan Assessment/Plan (1) Elevated troponin I level: (2) Debility: (3) AMOL (acute kidney injury): (4) Thrombocytopenia: (5) Acute UTI: PLAN: Plan 75-year-old gentleman who presented with generalized weakness and falls and assessment of AMOL and UTI made admitted to monitored bed for further management 1. Acute complicated cystitis ? Patient started on Zosyn, repeat cultures sent. Kidney ultrasound ordered given patient previous history of calculus in the distal left ureter. Plan is to adjust antibiotic therapy based on culture result 2. Acute kidney injury ? Secondary to dehydration. Patient creatinine from 11/10/2024 was 1.66, creatinine on admission was 2.04. Managed with IV fluid with avoidance of nephrotoxic medications including lisinopril repeat BMP ordered in a.m. to assess response to initial therapy 3. Hypothyroidism ? Patient is on levothyroxine home dose continued 4. Diabetes mellitus type II - Patient is on long acting insulin, continued in addition to Accu-Cheks a.c. and at bedtime and covered with sliding scale insulin 5. BPH with lower urinary obstructive symptoms - Patient treated with tamsulosin 6. Essential hypertension Patient potential nephrotoxic medications including HCTZ and lisinopril held placed on hydralazine as needed 7. Dyslipidemia ? Patient is on lovastatin therapeutic exchange with atorvastatin made 8. Paroxysmal atrial fibrillation ? Rate controlled patient is on systemic anticoagulation with apixaban continue 9. Class II obesity with BMI of 39.9 ? Complicating care weight loss advised 10. Elevated troponin ? Secondary to demand ischemia from patient AMOL as well as cystitis please on a monitored bed for continuous telemetry monitoring 11. Anemia ? Secondary to chronic disorder monitoring H&H and transfuse if patient becomes symptomatic or hemoglobin falls below 7 12. Thrombocytopenia ? Chronic thought to be secondary to cirrhosis of the liver from NAFLD. Monitoring with daily CBC with differential 13. Psoriatic arthritis ? Patient is on Otezla plan is to resume following discharge 14. Physical deconditioning with falls ? Requested for PT OT eval and marriage and family social worker to assist with discharge planning 15. Right elbow laceration following fall sutured in the ED 16 DVT prophylaxis ? On apixaban Charges/Coding Visit Charges Inpatient E&M: 20757 Subs Hosp L3
--- NOTE | 2025-08-13 11:24 | US_ITS ---
PROCEDURE: US KIDNEY AND BLADDER 08/13/2025 REASON FOR EXAM: AMOL TECHNIQUE: Procedure Code: USKI Modality: US Procedure: KIDNEY AND BLADDER COMPARISON: Correlation with abdominal CT 11/10/2024. FINDINGS: Bilateral kidneys appear normal in size and cortical thickness. Right kidney measures 12 x 5.7 x 5.2 cm. Left kidney measures 12.5 x 5.6 x 5.6 cm. No shadowing renal calculus or hydronephrosis on either side. No perinephric fluid collection visualized. Simple 4.1 cm cyst in the upper pole of the left kidney. Urinary bladder is underdistended, with prevoid bladder volume of 53 cc. There is mild circumferential bladder wall thickening likely related to hypertrophy. Ureteral jets not visualized on this exam. US/Kidney and Bladder IMPRESSION: No shadowing renal calculi or hydronephrosis on either side. Mild circumferential bladder wall thickening/hypertrophy. Reading Location: [id number]
--- NOTE | 2025-08-13 12:36 | CASEMGMT ---
JESSICA OWENS Assessment Face to Face with patient for initial transition planning/care coordination assessment. JESSICA OWENS introduced self and role at [facility], pt voices understanding. Pt is A&Ox4 and is resting comfortably in bed and is calm. Care providers, pharmacy, and demographics verified. Admitting dx: UTI, Weakness, Falls LACE Strata: 3 PCP: Cammy Specialists: Sundar (Rheumatology), Maggie (Pulmonary), Dr Willie Bryant ([facility]), Ophthalmology [facility] (Pt states Dr's name is Dr. Baeza). Pt unsure of MD's real name. Preferred Pharmacy: [facility] Insurance: [employer] Private Prescription Benefit: Yes. Pt states that he gets his Eliquis home delivered through [facility] and that he has a 0$ copay LNOK: Kiley (W) Living Arrangements: Pt lives with his in a single story home with 1-2 steps to enter ADLs/IADLs: Pt states that his helps him with everything. Transportation: DME: Pt states that he wears a CPAP HS through [employer] with no additional oxygen. [employer] confirms and states that his CPAP is through them and it is 12 cm. Pt states that he has x4-5 portable tanks at home and that his can bring one in if needed. Pt also has a pulse ox, nebulizer, and inhaler. Pt also states that he has a BGM with sufficient testing supplies. Pt also has a shower chair, grab bars, cane, FWW, WC. Due to pt's previous falls, this RN CM provided the pt with medical alert resources. HHC/SNF: Reports HH hx but is unsure of the agency. Denies SNF. Pt has been to for OP therapy in the past and would like to attend again. see below Pt?s goal: Home with OP Tx Plan: Anticipate home with pt's support and OP Tx through [facility]. Follow for any additional oxygen needs. Pt denies the need for HHC or SNF. Pt states that he prefers to make his own OP therapy appt. Pt denies transport issues and that his can drive him. Pt states that he feels safe with this plan and denies any further questions or concerns. Current 6-Click score is 18. PT is pending. Report given to DIE MAINTENANCE TECHNICIAN CM. Alvino Mendoza RN, CM
[2025-08-13] MEDS: 0.9% Normal Saline (250mL Bag) 250 ML 15 ML IV (14:05)
[2025-08-13 19:45] VITALS: BP 148/72; PULSE 81; RESP 18; TEMP 36.7; O2SAT 97
[2025-08-13] MEDS: 0.9% Saline Lock 10 ML Syringe IV (19:53)
[2025-08-13 23:09] VITALS: BP 117/68; PULSE 94; RESP 18; TEMP 36.7; O2SAT 92
[2025-08-13 23:11] VITALS: BP 117/68; PULSE 94
[2025-08-13] MEDS: Insulin Glargine-YFGN 100 UNIT/ML Pen 12 UNIT SC (23:20)
[2025-08-14 02:05] VITALS: BP 132/70; PULSE 77; RESP 16; TEMP 36.8; O2SAT 95
[2025-08-14 06:13] LABS: Hematocrit 29.5 % (40-54); Hemoglobin 9.3 g/dL (13.0-16.5); Immature Granulocytes Count 0.010 X10^3/uL (0.0-0.0); Mean Corp Hgb Conc 31.5 g/dL (32-36); Mean Corpuscular Volume 88.9 fL (80-94); Mean Platelet Vol. 10.5 fl (6.2-12.0); NRBC Flagged by Analyzer 0 % (0-5); POSITIVE COUNT YES; Platelet Count 70 K/mm3 (150-450); RBC Distribution Width CV 19.8 % (11.6-14.6); RBC Distribution Width SD 64.0 fl (35.1-43.9); Red Blood Count 3.32 M/mm3 (4.6-6.2); White Blood Count 3.0 K/mm3 (4.4-11.0)
[2025-08-14 06:15] VITALS: BP 132/69; PULSE 87; RESP 18; TEMP 36.6; O2SAT 96
[2025-08-14 06:22] LABS: Prothrombin Time (Protime)PT. 17.4 SECONDS (11.7-14.9)
[2025-08-14] MEDS: Piperacil/Tazobactam 3.375 GM in 0.9% Normal Saline (50mL MB+) 50 ML IV ×2 (06:24→13:25)
[2025-08-14 06:42] LABS: Anion Gap 10 (5-15); BUN 16 mg/dL (4-19); BUN/Creat Ratio 9.0 RATIO (10-20); Calcium,Total 8.7 mg/dL (7.6-11.0); Carbon Dioxide 20.4 mmol/L (21.0-32.0); Chloride 106 mmol/L (98-108); Estimated Creatinine Clearance 45.76 ml/min (50-250); Glucose 149 mg/dL (70-99); Magnesium 2.2 mg/dL (1.5-2.2); Potassium 4.3 mmol/L (3.3-5.1)
--- NOTE | 2025-08-14 08:22 | PCM.PN.HOSP ---
Reason for Visit Chief Complaint: weakness and falls. Subjective Subjective Patient urine cultures positive for Pseudomonas aeruginosa [place] Count 50,000-80,000 CFU/mL. Renal ultrasound did show No shadowing renal calculi or hydronephrosis on either side. Mild circumferential bladder wall thickening/hypertrophy. Objective Data Objective Data Vital Signs: Vital Signs Temp Pulse Resp BP Pulse Ox O2 Del Method 97.9 F 87 18 132/69 H 96 Room Air 08/14/25 06:15 08/14/25 06:15 08/14/25 06:15 08/14/25 06:15 08/14/25 06:15 08/14/25 06:15 Oxygen Delivery Method Room Air Weight: 120.8 kg Body Mass Index (BMI) 39.3 Intake & Output: Intake and Output for Last 24 Hours 08/12/25 08/13/25 08/14/25 23:59 23:59 23:59 Intake Total 2440 / 2560 2020 / 2020 250 / 250 Output Total 1100 / 1100 Balance 2440 / 2560 920 / 920 250 / 250 Lab / Micro Data 08/14/25 05:48 08/14/25 05:48 Labs: Laboratory Results - last 24 hr 08/13/25 11:20: POC Glucose 168 H 08/13/25 16:23: POC Glucose 136 H 08/13/25 23:19: POC Glucose 163 H 08/14/25 05:48: WBC 3.0 L, RBC 3.32 L, Hgb 9.3 L, Hct 29.5 L, MCV 88.9, MCH 28.0, MCHC 31.5 L, RDW Std Deviation 64.0 H, RDW Coeff of [place] 19.8 H, Plt Count 70 L, MPV 10.5, Immature Gran % (Auto) 0.300, Neut % (Auto) 65.1, Lymph % (Auto) 21.8, [place] % (Auto) 6.7, Eos % (Auto) 4.4, Baso % (Auto) 1.7 H, Absolute Neuts (auto) 1.9 L, Absolute Lymphs (auto) 0.65 L, Nucleated RBC % 0, PT 17.4 H, INR 1.4, Sodium 136, Potassium 4.3, Chloride 106, Carbon Dioxide 20.4 L, Anion Gap 10, BUN 16, Creatinine 1.79 H, Estim Creat Clear Calc 45.76 L, Est GFR (MDRD) Non-Af 39 L, BUN/Creatinine Ratio 9.0 L, Glucose 149 H, Calcium 8.7, Phosphorus 2.8, Magnesium 2.2 08/14/25 06:12: POC Glucose 155 H Micro: Microbiology 08/12/25 12:40 Urine, Clean Catch Urine Culture - Final Pseudomonas aeruginosa 08/12/25 10:53 Mucosa - Nose SARS-CoV-2, Influenza & RSV (PCR) - Final Radiography Diagnostic Testing: Radiology Impression Echocardiogram 08/12/25 16:09 Interpretation Summary The left ventricular ejection fraction is 55 %. Normal LV size. Moderate (2+) tricuspid valve insufficiency. ICD or pacer leads identified within the right ventricle. Contrast injection was performed. Ordering Physician: Tiago Diaz Referring Physician: RANDI ASHLEY Performed By: Joann Wyman RCS Renal Ultrasound 08/13/25 11:24 IMPRESSION: No shadowing renal calculi or hydronephrosis on either side. Mild circumferential bladder wall thickening/hypertrophy. Reading Location: [facility] Physical Exam Narrative GENERAL: cooperative HEENT: Atraumatic; normocephalic EYES; Anicteric, Normal Conjunctiva NECK; supple, normal thyroid, RESPIRATORY: Diminished to auscultation CARDIOVASCULAR: Regular S1 S2, GI: soft, normoactive bowel sounds, : No Renal angle tenderness; EXTREMITIES: Trace bipedal edema, no clubbing, MUSCULOSKELETAL: no muscle wasting NEURO: Awake; no lateralizing signs. SKIN: No Rash PSYCH; Flat affect Assessment & Plan Assessment/Plan (1) Elevated troponin I level: (2) Debility: (3) AMOL (acute kidney injury): (4) Thrombocytopenia: (5) Acute UTI: PLAN: Plan 75-year-old gentleman who presented with generalized weakness and falls and assessment of AMOL and UTI made admitted to monitored bed for further management 1. Acute complicated cystitis ? Patient started on Zosyn, repeat cultures sent. Kidney ultrasound ordered given patient previous history of calculus in the distal left ureter. Plan is to adjust antibiotic therapy based on culture result ? 08/14/2025;Patient urine cultures positive for Pseudomonas aeruginosa [place] Count 50,000-80,000 CFU/mL. Renal ultrasound did show No shadowing renal calculi or hydronephrosis on either side. Mild circumferential bladder wall thickening/hypertrophy. Patient to be assessed for discharge 2. Acute kidney injury ? Secondary to dehydration. Patient creatinine from 11/10/2024 was 1.66, creatinine on admission was 2.04. Managed with IV fluid with avoidance of nephrotoxic medications including lisinopril repeat BMP ordered in a.m. to assess response to initial therapy 3. Hypothyroidism ? Patient is on levothyroxine home dose continued 4. Diabetes mellitus type II - Patient is on long acting insulin, continued in addition to Accu-Cheks a.c. and at bedtime and covered with sliding scale insulin 5. BPH with lower urinary obstructive symptoms - Patient treated with tamsulosin 6. Essential hypertension Patient potential nephrotoxic medications including HCTZ and lisinopril held placed on hydralazine as needed 7. Dyslipidemia ? Patient is on lovastatin therapeutic exchange with atorvastatin made 8. Paroxysmal atrial fibrillation ? Rate controlled patient is on systemic anticoagulation with apixaban continue 9. Class II obesity with BMI of 39.9 ? Complicating care weight loss advised 10. Elevated troponin ? Secondary to demand ischemia from patient AMOL as well as cystitis please on a monitored bed for continuous telemetry monitoring 11. Anemia ? Secondary to chronic disorder monitoring H&H and transfuse if patient becomes symptomatic or hemoglobin falls below 7 12. Thrombocytopenia ? Chronic thought to be secondary to cirrhosis of the liver from NAFLD. Monitoring with daily CBC with differential 13. Psoriatic arthritis ? Patient is on Otezla plan is to resume following discharge 14. Physical deconditioning with falls ? Requested for PT OT eval and social services director to assist with discharge planning 15. Right elbow laceration following fall sutured in the ED 16 DVT prophylaxis ? On apixaban Time spent in the patient's overall evaluation,decision-making process, review of diagnostic data, adjustment of management, discussion with other providers, nursing nursing and ancillary staff involved in patient's care documentation, 35 Minutes Charges/Coding Visit Charges Inpatient E&M: 31476 Subs Hosp L2
[2025-08-14] MEDS: buPROPion (XL) 150 MG TABLET.XL PO (08:25)
[2025-08-14] MEDS: APIXABAN 2.5 MG TABLET (WCH) PO (08:25)
[2025-08-14 08:26] VITALS: PULSE 87
[2025-08-14] MEDS: Magnesium Chloride 64 MG Delay Rel.Tablet 128 MG PO (08:26)
--- NOTE | 2025-08-14 09:35 | PCM.DC.SUM ---
Providers Date of Admission: 08/12/25 Date of Discharge: 08/14/25 Primary Care Physician: Dr. Randi Ashley MD Reason For Visit: UTI Diagnosis Discharge Diagnosis (1) Elevated troponin I level: Status: Acute Code(s): R79.89 - Other specified abnormal findings of blood chemistry (2) Debility: Status: Acute Code(s): R53.81 - Other malaise (3) AMOL (acute kidney injury): Status: Acute Code(s): N17.9 - Acute kidney failure, unspecified (4) Thrombocytopenia: Status: Acute Code(s): D69.6 - Thrombocytopenia, unspecified (5) Acute UTI: Status: Acute Code(s): N39.0 - Urinary tract infection, site not specified Plan 75-year-old gentleman who presented with generalized weakness and falls and assessment of AMOL and UTI made admitted to monitored bed for further management 1. Acute complicated cystitis with Pseudomonas aeruginosa ? Patient started on Zosyn, repeat cultures sent. Kidney ultrasound ordered given patient previous history of calculus in the distal left ureter. Plan is to adjust antibiotic therapy based on culture result ? 08/14/2025;Patient urine cultures positive for Pseudomonas aeruginosa [place] Count 50,000-80,000 CFU/mL. Renal ultrasound did show No shadowing renal calculi or hydronephrosis on either side. Mild circumferential bladder wall thickening/hypertrophy. Patient to be assessed for discharge 2. Acute kidney injury ? Secondary to dehydration. Patient creatinine from 11/10/2024 was 1.66, creatinine on admission was 2.04. Managed with IV fluid with avoidance of nephrotoxic medications including lisinopril repeat BMP ordered in a.m. to assess response to initial therapy 3. Hypothyroidism ? Patient is on levothyroxine home dose continued 4. Diabetes mellitus type II - Patient is on long acting insulin, continued in addition to Accu-Cheks a.c. and at bedtime and covered with sliding scale insulin 5. BPH with lower urinary obstructive symptoms - Patient treated with tamsulosin 6. Essential hypertension Patient potential nephrotoxic medications including HCTZ and lisinopril held placed on hydralazine as needed 7. Dyslipidemia ? Patient is on lovastatin therapeutic exchange with atorvastatin made 8. Paroxysmal atrial fibrillation ? Rate controlled patient is on systemic anticoagulation with apixaban continue 9. Class II obesity with BMI of 39.9 ? Complicating care weight loss advised 10. Elevated troponin ? Secondary to demand ischemia from patient AMOL as well as cystitis please on a monitored bed for continuous telemetry monitoring 11. Anemia ? Secondary to chronic disorder monitoring H&H and transfuse if patient becomes symptomatic or hemoglobin falls below 7 12. Thrombocytopenia ? Chronic thought to be secondary to cirrhosis of the liver from NAFLD. Monitoring with daily CBC with differential 13. Psoriatic arthritis ? Patient is on Otezla plan is to resume following discharge 14. Physical deconditioning with falls ? Requested for PT OT eval and social media specialist to assist with discharge planning 15. Right elbow laceration following fall sutured in the ED 16 DVT prophylaxis ? On apixaban Time spent in the patient's overall evaluation,decision-making process, review of diagnostic data, adjustment of management, discussion with other providers, nursing nursing and ancillary staff involved in patient's care documentation, 35 Minutes Medications at Discharge Home Medications duloxetine 60 mg capsule,delayed release 60 mg PO DAILY MOOD 05/12/14 hydrochlorothiazide 25 mg tablet 25 mg PO DAILY BP 05/12/14 lisinopril 40 mg tablet 40 mg PO DAILY BP 05/12/14 potassium chloride 10 mEq tablet,extended release (Klor-Con) 10 meq PO BID SUPPLEMENT 05/12/14 acetaminophen 500 mg tablet 1,000 mg PO BID PRN Pain 06/09/21 amlodipine 5 mg tablet 5 mg PO DAILY BP 06/09/21 magnesium oxide 400 mg PO BID SUPPLEMENT 06/09/21 metoprolol tartrate 100 mg tablet 100 mg PO BID HEART 06/09/21 tamsulosin 0.4 mg capsule 0.8 mg PO DAILY PROSTATE 06/09/21 apremilast 30 mg tablet (Otezla) 30 mg PO DAILY ARTHRITIS 10/09/24 clobetasol 0.05 % scalp solution See Rx Instructions topical .COMPLEX SCALP 10/09/24 gabapentin 600 mg tablet 600 mg PO QHS PAIN 10/09/24 apixaban 5 mg tablet (Eliquis) 2.5 mg PO BID blood thin 08/12/25 cephalexin 500 mg capsule 500 mg PO Q6H uti 08/12/25 cholecalciferol (vitamin D3) 50 mcg (2,000 unit) tablet 50 mcg PO DAILY osteoporosis 08/12/25 insulin glargine 100 unit/mL (3 mL) subcutaneous pen (Lantus Solostar U-100 Insulin) 25 unit subcut QHS DM 08/12/25 levothyroxine 50 mcg tablet 50 mcg PO DAILY disorder of thyroid gland 08/12/25 lovastatin 20 mg tablet 20 mg PO QODAY cholesterol 08/12/25 ciprofloxacin HCl 250 mg tablet (Cipro) 250 mg PO BID #20 tabs 08/14/25 Physical Exam Narrative GENERAL: cooperative HEENT: Atraumatic; normocephalic EYES; Anicteric, Normal Conjunctiva NECK; supple, normal thyroid, RESPIRATORY: Diminished to auscultation CARDIOVASCULAR: Regular S1 S2, GI: soft, normoactive bowel sounds, : No Renal angle tenderness; EXTREMITIES: Trace bipedal edema, no clubbing, MUSCULOSKELETAL: no muscle wasting NEURO: Awake; no lateralizing signs. SKIN: No Rash PSYCH; Flat affect Weight / BMI Weight Weight: 120.8 kg Body Mass Index (BMI) 39.3 ABG / Lab / Microbiology Data 08/14/25 05:48 08/14/25 05:48 Laboratory: Laboratory Results - last 24 hr 08/13/25 11:20: POC Glucose 168 H 08/13/25 16:23: POC Glucose 136 H 08/13/25 23:19: POC Glucose 163 H 08/14/25 05:48: WBC 3.0 L, RBC 3.32 L, Hgb 9.3 L, Hct 29.5 L, MCV 88.9, MCH 28.0, MCHC 31.5 L, RDW Std Deviation 64.0 H, RDW Coeff of [place]rell 19.8 H, Plt Count 70 L, MPV 10.5, Immature Gran % (Auto) 0.300, Neut % (Auto) 65.1, Lymph % (Auto) 21.8, [place] % (Auto) 6.7, Eos % (Auto) 4.4, Baso % (Auto) 1.7 H, Absolute Neuts (auto) 1.9 L, Absolute Lymphs (auto) 0.65 L, Nucleated RBC % 0, PT 17.4 H, INR 1.4, Sodium 136, Potassium 4.3, Chloride 106, Carbon Dioxide 20.4 L, Anion Gap 10, BUN 16, Creatinine 1.79 H, Estim Creat Clear Calc 45.76 L, Est GFR (MDRD) Non-Af 39 L, BUN/Creatinine Ratio 9.0 L, Glucose 149 H, Calcium 8.7, Phosphorus 2.8, Magnesium 2.2 08/14/25 06:12: POC Glucose 155 H Microbiology: Microbiology 08/12/25 12:40 Urine, Clean Catch Urine Culture - Final Pseudomonas aeruginosa 08/12/25 10:53 Mucosa - Nose SARS-CoV-2, Influenza & RSV (PCR) - Final Radiography Diagnostic Testing: Radiology Impression Echocardiogram 08/12/25 16:09 Interpretation Summary The left ventricular ejection fraction is 55 %. Normal LV size. Moderate (2+) tricuspid valve insufficiency. ICD or pacer leads identified within the right ventricle. Contrast injection was performed. Ordering Physician: Tiago Diaz Referring Physician: RANDI ASHLEY Performed By: Joann Wyman RCS Renal Ultrasound 08/13/25 11:24 IMPRESSION: No shadowing renal calculi or hydronephrosis on either side. Mild circumferential bladder wall thickening/hypertrophy. Reading Location: [facility] Meaningful Use Info Meaningful Use Meaningful Use Diagnoses (Choose all that apply): None applicable Discharge Plan Admission Admit Date/Time: 08/12/25 15:48 Attending Provider: Cayden Cline Primary Care Provider: Randi Ashley Consulting Providers: Tiago Diaz Discharge Orders/Prescriptions Prescriptions: New ciprofloxacin HCl [Cipro] 250 mg tablet 250 mg PO BID Qty: 20 0RF Continued potassium chloride [Klor-Con 10] 10 MEQ tablet extended release 10 meq PO BID hydrochlorothiazide 25 MG tablet 25 mg PO DAILY lisinopril 40 MG tablet 40 mg PO DAILY duloxetine 60 MG capsule 60 mg PO DAILY metoprolol tartrate 100 mg tablet 100 mg PO BID Patient Comments: TAKE 1 TABLET BY MOUTH TWICE DAILY amlodipine 5 mg tablet 5 mg PO DAILY Patient Comments: TAKE 1 TABLET BY MOUTH ONCE DAILY acetaminophen 500 mg Tablet 1,000 mg PO BID PRN (Reason: Pain) tamsulosin 0.4 mg capsule 0.8 mg PO DAILY Patient Comments: TAKE 2 CAPSULES BY MOUTH ONCE DAILY magnesium oxide 400 mg magnesium tablet 400 mg PO BID Patient Comments: TAKE 1 TABLET BY MOUTH TWICE DAILY Eliquis 5 mg tablet 2.5 mg PO BID cephalexin 500 mg capsule 500 mg PO Q6H cholecalciferol (vitamin D3) 50 mcg (2,000 unit) tablet 50 mcg PO DAILY levothyroxine 50 mcg tablet 50 mcg PO DAILY lovastatin 20 mg tablet 20 mg PO QODAY insulin glargine [Lantus Solostar U-100 Insulin] 100 UNITS/ML insulin pen 25 unit subcut QHS Rx Instructions: Hold if glucose less than 130 mg/dl gabapentin 600 mg tablet 600 mg PO QHS clobetasol 0.05 % solution See Rx Instructions TOPICAL .COMPLEX Patient Comments: APPLY TO THE SCALP ONCE DAILY IN THE EVENING FOR 2 WEEKS. RINSE OFF IN THE MORNING. TAKE ONE WEEK OFF BEFORE RESUMING NEEDED FOR FLARES. Rx Instructions: APPLY TO THE SCALP ONCE DAILY IN THE EVENING FOR 2 WEEKS. RINSE OFF IN THE MORNING. TAKE ONE WEEK OFF BEFORE RESUMING NEEDED FOR FLARES. topically; Otezla 30 mg tablet 30 mg PO DAILY Referrals / Follow Up: Randi Ashley MD [Primary Care Provider, Internal Medicine] - Within 2 Weeks Charges/Coding Visit Charges Inpatient E&M: 91378 Disch Hosp >30min
[2025-08-14 12:00] VITALS: BP 114/78; PULSE 72; RESP 16; TEMP 36.7; O2SAT 95
--- NOTE | 2025-08-14 15:01 | DS.PCM_ITS ---
Providers Date of Admission: 08/12/25 Date of Discharge: 08/14/25 Primary Care Physician: Dr. Dee Chawla MD Reason For Visit: UTI Diagnosis Discharge Diagnosis (1) Elevated troponin I level: Status: Acute Code(s): R79.89 - Other specified abnormal findings of blood chemistry (2) Debility: Status: Acute Code(s): R53.81 - Other malaise (3) AMOL (acute kidney injury): Status: Acute Code(s): N17.9 - Acute kidney failure, unspecified (4) Thrombocytopenia: Status: Acute Code(s): D69.6 - Thrombocytopenia, unspecified (5) Acute UTI: Status: Acute Code(s): N39.0 - Urinary tract infection, site not specified Plan 75-year-old gentleman who presented with generalized weakness and falls and assessment of AMOL and UTI made admitted to monitored bed for further management 1. Acute complicated cystitis with Pseudomonas aeruginosa ? Patient started on Zosyn, repeat cultures sent. Kidney ultrasound ordered given patient previous history of calculus in the distal left ureter. Plan is to adjust antibiotic therapy based on culture result ? 08/14/2025;Patient urine cultures positive for Pseudomonas aeruginosa [place] Count 50,000-80,000 CFU/mL. Renal ultrasound did show No shadowing renal calculi or hydronephrosis on either side. Mild circumferential bladder wall thickening/hypertrophy. Patient to be assessed for discharge 2. Acute kidney injury ? Secondary to dehydration. Patient creatinine from 11/10/2024 was 1.66, creatinine on admission was 2.04. Managed with IV fluid with avoidance of nephrotoxic medications including lisinopril repeat BMP ordered in a.m. to assess response to initial therapy 3. Hypothyroidism ? Patient is on levothyroxine home dose continued 4. Diabetes mellitus type II - Patient is on long acting insulin, continued in addition to Accu-Cheks a.c. and at bedtime and covered with sliding scale insulin 5. BPH with lower urinary obstructive symptoms - Patient treated with tamsulosin 6. Essential hypertension Patient potential nephrotoxic medications including HCTZ and lisinopril held placed on hydralazine as needed 7. Dyslipidemia ? Patient is on lovastatin therapeutic exchange with atorvastatin made 8. Paroxysmal atrial fibrillation ? Rate controlled patient is on systemic anticoagulation with apixaban continue 9. Class II obesity with BMI of 39.9 ? Complicating care weight loss advised 10. Elevated troponin ? Secondary to demand ischemia from patient AMOL as well as cystitis please on a monitored bed for continuous telemetry monitoring 11. Anemia ? Secondary to chronic disorder monitoring H&H and transfuse if patient becomes symptomatic or hemoglobin falls below 7 12. Thrombocytopenia ? Chronic thought to be secondary to cirrhosis of the liver from NAFLD. Monitoring with daily CBC with differential 13. Psoriatic arthritis ? Patient is on Otezla plan is to resume following discharge 14. Physical deconditioning with falls ? Requested for PT OT eval and social organization professor to assist with discharge planning 15. Right elbow laceration following fall sutured in the ED 16 DVT prophylaxis ? On apixaban Time spent in the patient's overall evaluation,decision-making process, review of diagnostic data, adjustment of management, discussion with other providers, nursing nursing and ancillary staff involved in patient's care documentation, 35 Minutes Medications at Discharge Home Medications duloxetine 60 mg capsule,delayed release 60 mg PO DAILY MOOD 05/12/14 hydrochlorothiazide 25 mg tablet 25 mg PO DAILY BP 05/12/14 lisinopril 40 mg tablet 40 mg PO DAILY BP 05/12/14 potassium chloride 10 mEq tablet,extended release (Klor-Con) 10 meq PO BID SUPPLEMENT 05/12/14 acetaminophen 500 mg tablet 1,000 mg PO BID PRN Pain 06/09/21 amlodipine 5 mg tablet 5 mg PO DAILY BP 06/09/21 magnesium oxide 400 mg PO BID SUPPLEMENT 06/09/21 metoprolol tartrate 100 mg tablet 100 mg PO BID HEART 06/09/21 tamsulosin 0.4 mg capsule 0.8 mg PO DAILY PROSTATE 06/09/21 apremilast 30 mg tablet (Otezla) 30 mg PO DAILY ARTHRITIS 10/09/24 clobetasol 0.05 % scalp solution See Rx Instructions topical .COMPLEX SCALP 10/09/24 gabapentin 600 mg tablet 600 mg PO QHS PAIN 10/09/24 apixaban 5 mg tablet (Eliquis) 2.5 mg PO BID blood thin 08/12/25 cephalexin 500 mg capsule 500 mg PO Q6H uti 08/12/25 cholecalciferol (vitamin D3) 50 mcg (2,000 unit) tablet 50 mcg PO DAILY osteoporosis 08/12/25 insulin glargine 100 unit/mL (3 mL) subcutaneous pen (Lantus Solostar U-100 Insulin) 25 unit subcut QHS DM 08/12/25 levothyroxine 50 mcg tablet 50 mcg PO DAILY disorder of thyroid gland 08/12/25 lovastatin 20 mg tablet 20 mg PO QODAY cholesterol 08/12/25 ciprofloxacin HCl 250 mg tablet (Cipro) 250 mg PO BID #20 tabs 08/14/25 Physical Exam Narrative GENERAL: cooperative HEENT: Atraumatic; normocephalic EYES; Anicteric, Normal Conjunctiva NECK; supple, normal thyroid, RESPIRATORY: Diminished to auscultation CARDIOVASCULAR: Regular S1 S2, GI: soft, normoactive bowel sounds, : No Renal angle tenderness; EXTREMITIES: Trace bipedal edema, no clubbing, MUSCULOSKELETAL: no muscle wasting NEURO: Awake; no lateralizing signs. SKIN: No Rash PSYCH; Flat affect Weight / BMI Weight Weight: 120.8 kg Body Mass Index (BMI) 39.3 ABG / Lab / Microbiology Data 08/14/25 05:48 08/14/25 05:48 Laboratory: Laboratory Results - last 24 hr 08/13/25 16:23: POC Glucose 136 H 08/13/25 23:19: POC Glucose 163 H 08/14/25 05:48: WBC 3.0 L, RBC 3.32 L, Hgb 9.3 L, Hct 29.5 L, MCV 88.9, MCH 28.0, MCHC 31.5 L, RDW Std Deviation 64.0 H, RDW Coeff of [place] 19.8 H, Plt Count 70 L, MPV 10.5, Immature Gran % (Auto) 0.300, Neut % (Auto) 65.1, Lymph % (Auto) 21.8, [place] % (Auto) 6.7, Eos % (Auto) 4.4, Baso % (Auto) 1.7 H, Absolute Neuts (auto) 1.9 L, Absolute Lymphs (auto) 0.65 L, Nucleated RBC % 0, PT 17.4 H, INR 1.4, Sodium 136, Potassium 4.3, Chloride 106, Carbon Dioxide 20.4 L, Anion Gap 10, BUN 16, Creatinine 1.79 H, Estim Creat Clear Calc 45.76 L, Est GFR (MDRD) Non-Af 39 L, BUN/Creatinine Ratio 9.0 L, Glucose 149 H, Calcium 8.7, Phosphorus 2.8, Magnesium 2.2 08/14/25 06:12: POC Glucose 155 H 08/14/25 12:01: POC Glucose 141 H Microbiology: Microbiology 08/12/25 12:40 Urine, Clean Catch Urine Culture - Final Pseudomonas aeruginosa 08/12/25 10:53 Mucosa - Nose SARS-CoV-2, Influenza & RSV (PCR) - Final Radiography Diagnostic Testing: Radiology Impression Renal Ultrasound 08/13/25 11:24 IMPRESSION: No shadowing renal calculi or hydronephrosis on either side. Mild circumferential bladder wall thickening/hypertrophy. Reading Location: [id number]/C Instructions DC O2, CPAP, BIPAP Needs Home O2 Discharge instructions: No Meaningful Use Info Meaningful Use Meaningful Use Diagnoses (Choose all that apply): None applicable Discharge Plan Admission Admit Date/Time: 08/12/25 15:48 Attending Provider: Cayden Cline Primary Care Provider: Dee Chawla Consulting Providers: Tiago Diaz Discharge Orders/Prescriptions Prescriptions: New ciprofloxacin HCl [Cipro] 250 mg tablet 250 mg PO BID Qty: 20 0RF Continued potassium chloride [Klor-Con 10] 10 MEQ tablet extended release 10 meq PO BID hydrochlorothiazide 25 MG tablet 25 mg PO DAILY lisinopril 40 MG tablet 40 mg PO DAILY duloxetine 60 MG capsule 60 mg PO DAILY metoprolol tartrate 100 mg tablet 100 mg PO BID Patient Comments: TAKE 1 TABLET BY MOUTH TWICE DAILY amlodipine 5 mg tablet 5 mg PO DAILY Patient Comments: TAKE 1 TABLET BY MOUTH ONCE DAILY acetaminophen 500 mg Tablet 1,000 mg PO BID PRN (Reason: Pain) tamsulosin 0.4 mg capsule 0.8 mg PO DAILY Patient Comments: TAKE 2 CAPSULES BY MOUTH ONCE DAILY magnesium oxide 400 mg magnesium tablet 400 mg PO BID Patient Comments: TAKE 1 TABLET BY MOUTH TWICE DAILY Eliquis 5 mg tablet 2.5 mg PO BID cephalexin 500 mg capsule 500 mg PO Q6H cholecalciferol (vitamin D3) 50 mcg (2,000 unit) tablet 50 mcg PO DAILY levothyroxine 50 mcg tablet 50 mcg PO DAILY lovastatin 20 mg tablet 20 mg PO QODAY insulin glargine [Lantus Solostar U-100 Insulin] 100 UNITS/ML insulin pen 25 unit subcut QHS Rx Instructions: Hold if glucose less than 130 mg/dl gabapentin 600 mg tablet 600 mg PO QHS clobetasol 0.05 % solution See Rx Instructions TOPICAL .COMPLEX Patient Comments: APPLY TO THE SCALP ONCE DAILY IN THE EVENING FOR 2 WEEKS. RINSE OFF IN THE MORNING. TAKE ONE WEEK OFF BEFORE RESUMING NEEDED FOR FLARES. Rx Instructions: APPLY TO THE SCALP ONCE DAILY IN THE EVENING FOR 2 WEEKS. RINSE OFF IN THE MORNING. TAKE ONE WEEK OFF BEFORE RESUMING NEEDED FOR FLARES. topically; Otezla 30 mg tablet 30 mg PO DAILY Referrals / Follow Up: Dee Chawla MD [Primary Care Provider, Internal Medicine] - Within 2 Weeks Disposition Disposition (needs filled in before D/C Order can be placed): Home Health Service Charges/Coding Visit Charges Inpatient E&M: 66446 Disch Hosp >30min
--- NOTE | 2025-08-14 15:09 | CASEMGMT ---
JESSICA OWENS updated by therapy that patient is able to go home with outpatient therapy. JESSICA OWENS in to patient's room to discuss needs at discharge. Patient states he would like outpatient PT at discharge and will schedule on his own. Patient had no further question or concerns. JESSICA OWENS called [facility] and updated to discharge today and plan. agreeable to outpatient therapy and had no further questions or concerns.
[2025-08-14 15:43] VITALS: BP 115/75; PULSE 74; RESP 16; TEMP 36.7; O2SAT 96
[2025-08-14] MEDS: CLARIFY ORDER NOTE (15:47)
== END 2025-08-14 15:42 | disposition home or self-care (01) | DRG 683 ==
LOC: ED 15:22 → PCU 16:25
PROVIDERS: Emergency Provider Student in an Organized Health Care Education/Training Program; PCP Internal Medicine; Visit Provider Internal Medicine
DX: N17.9 Acute kidney failure, unspecified (principal); N30.00 Acute cystitis without hematuria; I24.89 Other forms of acute ischemic heart disease; N13.8 Other obstructive and reflux uropathy; D69.6 Thrombocytopenia, unspecified; D63.8 Anemia in other chronic diseases classified elsewhere; B96.5 Pseudomonas (aeruginosa) (mallei) (pseudomallei) as the cause of diseases classified elsewhere; E11.9 Type 2 diabetes mellitus without complications; L40.50 Arthropathic psoriasis, unspecified; I10 Essential (primary) hypertension; E03.9 Hypothyroidism, unspecified; Z68.39 Body mass index [BMI] 39.0-39.9, adult; I48.0 Paroxysmal atrial fibrillation; S51.011A Laceration without foreign body of right elbow, initial encounter; Z79.4 Long term (current) use of insulin; E78.5 Hyperlipidemia, unspecified; G47.30 Sleep apnea, unspecified; S41.111A Laceration without foreign body of right upper arm, initial encounter; W19.XXXA Unspecified fall, initial encounter; R53.1 Weakness; R79.89 Other specified abnormal findings of blood chemistry; R53.81 Other malaise; Z87.891 Personal history of nicotine dependence; Z79.01 Long term (current) use of anticoagulants; E66.812 Obesity, class 2; N40.1 Benign prostatic hyperplasia with lower urinary tract symptoms; Z99.89 Dependence on other enabling machines and devices; Z95.0 Presence of cardiac pacemaker; Z95.810 Presence of automatic (implantable) cardiac defibrillator; Z79.82 Long term (current) use of aspirin; Z79.899 Other long term (current) drug therapy; Z79.890 Hormone replacement therapy; R29.6 Repeated falls
CPT/HCPCS: 36415; 70450; 71046; 72125; 73030; 73080; 73502; 76770; 80048; 81001; 82962; 83036; 83605; 83735; 84100; 84484; 85025; 85610; 87077; 87086; 87088; 87184; 87186; 87631; 93005; 93306; 94660; 97162; 97166; 97530; 97535; 97802; 99285; Q9957; A4216; C8929; J0744